=== PATIENT | male | born 1965 | race African-American/Black ===

== ENCOUNTER 2018-05-13 23:58 | Inpatient (IN) | payer BC, OTHER ==
[~2018-05-13] VITALS: Ht 182.9 cm; Wt 80.8 kg
[2018-05-14] VITALS (21 sets, daily range): BP systolic 88–103; BP diastolic 50–69
[2018-05-14] MEDS ORDERED: ACETAMINOP160 MG/5 M GT (00:26)
[2018-05-14] MEDS ORDERED: CATAPRES0.1 MG GT (00:26)
[2018-05-14] MEDS ORDERED: ARTIFICIAL TEAR15 ML BOTH EYES (00:26)
[2018-05-14] MEDS ORDERED: SPIRONOLACTONE25 MG GT (00:26)
[2018-05-14] MEDS ORDERED: CALCIUM CARBON650 M2 GT (00:26)
[2018-05-14] MEDS ORDERED: BISACODYL5 MG RECTAL (00:26)
[2018-05-14] MEDS ORDERED: BACLOFEN10 MG GT (00:26)
[2018-05-14 00:27] LABS: HEMATOCRIT 43.7 % (42.0-52.0); HEMOGLOBIN 14.1 G/DL (14.2-18.0); MEAN CORPUSCULAR VOLUME 86 FL (80-99); PLATELET COUNT 215 K/UL (150-450); RED BLOOD COUNT 5.08 M/UL (4.70-6.10); RED CELL DISTRIBUTION WIDTH 14.2 % (11.6-14.8); WHITE BLOOD COUNT 11.2 K/UL (4.8-10.8)
[2018-05-14] MEDS ORDERED: DUONEB 0.5-3(2.53 ML HHN (00:29)
[2018-05-14] MEDS ORDERED: CRANBERRY400 MG GT (00:29)
[2018-05-14] MEDS ORDERED: VITAMIN D1000 UNI1 GT (00:29)
[2018-05-14] MEDS ORDERED: DOCUSATE SODIU100 MG GT (00:29)
[2018-05-14 00:31] LABS: INR 1.1 (0.9-1.1)
[2018-05-14 00:32] LABS: ANION GAP 14 mmol/L (5-15); BLOOD UREA NITROGEN 34 mg/dL (7-18); CALCIUM 10.7 MG/DL (8.5-10.1); CARBON DIOXIDE 24 MMOL/L (21-32); CHLORIDE 100 MMOL/L (98-107); CREATININE 1.4 MG/DL (0.55-1.30); POTASSIUM 4.4 MMOL/L (3.5-5.1); SODIUM 138 MMOL/L (136-145)
[2018-05-14] MEDS ORDERED: LEVETIRACE100 MG/1 M GT (00:33)
[2018-05-14] MEDS ORDERED: MIRALAX17 G2 GT (00:33)
[2018-05-14] MEDS ORDERED: JANUVIA25 MG GT (00:33)
[2018-05-14] MEDS ORDERED: LACTULOSE20 GM/301 GT (00:33)
[2018-05-14] MEDS ORDERED: FAMOTIDINE20 MG GT (00:33)
[2018-05-14] MEDS ORDERED: LOSARTAN POTASS25 MG GT (00:33)
[2018-05-14] MEDS ORDERED: NOVOLIN R100 UNIT/1 SUBQ (00:33)
[2018-05-14] MEDS ORDERED: MULTIVITAMINS1 EAC8 GT (00:35)
[2018-05-14] MEDS ORDERED: NYSTATIN15 GM TOPIC (00:35)
[2018-05-14] MEDS ORDERED: ROBINUL1 MG GT (00:35)
[2018-05-14] MEDS ORDERED: PERIDEX15 ML MM (00:35)
--- NOTE | 2018-05-14 00:35 | Emergency Room Report ---
History of Present Illness General Chief Complaint: Fever Source: Medical Record Present Illness HPI Patient is sent in from nursing facility with reports of fever and tachycardia Patient presents with tracheostomy Is vent dependent Patient himself has eyes closed and is unresponsive It does limit the history of present illness Unknown regarding vomiting Patient has obvious blood at the meatus Also has a colostomy bag in the right lower abdomen And is still somewhat distended Unknown regarding vomiting Unknown regarding diarrhea Allergies: Coded Allergies: AZTREONAM (Verified Allergy, Unknown, 05/13/18) Patient History Limited by: medical condition Past Medical History: see triage record Pertinent Family History: unable to obtain Reviewed Nursing Documentation: PMH: Agreed; PSxH: Agreed Nursing Documentation-PMH Hx Diabetes: Yes Hx Gastrointestinal Problems: Yes - BPH, GERD, G-tube, Colostomy Hx Seizures: Yes - Convulsion disorder Review of Systems All Other Systems: limited - Other than the ones mentioned in the history of present illness all others are reviewed however they do stay limited due to the patient's mental status Physical Exam Vital Signs Date Time Temp Pulse Resp B/P (MAP) Pulse Ox O2 Delivery O2 Flow Rate FiO2 05/13/18 23:50 103.7 144 13 101/69 93 Mechanical Ventilator 50 103.6 Sp02 EP Interpretation: reviewed, normal General Appearance: moderate distress - Patient appears in moderate distress tachypnic Head: atraumatic Eyes: bilateral eye PERRL, bilateral eye other - Patient has poor dentition has tongue protruding through the oral mucosa, ENT: dry mucus membranes Neck: supple, other - Tracheostomy in place Respiratory: crackles - Diffusely Cardiovascular #1: tachycardia Gastrointestinal: other - Distended abdomen, colostomy bag in the right lower abdomen Genitourinary: other - Gross blood at the meatus Musculoskeletal: other - Patient chronically debilitated, does not move extremities significantly edematous diffusely, Neurologic: responsive - Minimally to physical stimuli Skin: other - Multiple skin breakdowns, edematous Lymphatic: no adenopathy Procedures Critical Care Time Critical Care Time 75 minutes for multiple re-evaluations Critical presentation concerning for life-threatening pathology Not including any procedural time Medical Decision Making Diagnostic Impression: Primary Impression: Severe sepsis ER Course Patient is a fairly complex patient with multiple differential to consideration including but not limited to infectious ,cardiac cardiopulmonary and vascular emergencies Patient had elevated temperature which was addressed Patient had IV bolus of fluids Broad-spectrum antibiotics Sepsis reexamination Time:0400 VS refer to nursing note cvs: RRR respiratory: improved respiration peripheral pulses: 2+radial cap refill:<2 seconds skin exam: warm, dry, not mottled Patient requiring high level of care admission Please refer to the phone log as multiple attempts have been made to make contact with the admitting physician Labs Test 05/14/18 00:05 05/14/18 01:20 05/14/18 01:43 White Blood Count 11.2 K/UL (4.8-10.8) Red Blood Count 5.08 M/UL (4.70-6.10) Hemoglobin 14.1 G/DL (14.2-18.0) Hematocrit 43.7 % (42.0-52.0) Mean Corpuscular Volume 86 FL (80-99) Mean Corpuscular Hemoglobin 27.7 PG (27.0-31.0) Mean Corpuscular Hemoglobin Concent 32.2 G/DL (32.0-36.0) Red Cell Distribution Width 14.2 % (11.6-14.8) Platelet Count 215 K/UL (150-450) Mean Platelet Volume 10.4 FL (6.5-10.1) Neutrophils (%) (Auto) % (45.0-75.0) Lymphocytes (%) (Auto) % (20.0-45.0) Monocytes (%) (Auto) % (1.0-10.0) Eosinophils (%) (Auto) % (0.0-3.0) Basophils (%) (Auto) % (0.0-2.0) Prothrombin Time 11.1 SEC (9.30-11.50) Prothromb Time International Ratio 1.1 (0.9-1.1) Activated Partial Thromboplast Time 26 SEC (23-33) Sodium Level 138 MMOL/L (136-145) Potassium Level 4.4 MMOL/L (3.5-5.1) Chloride Level 100 MMOL/L (98-107) Carbon Dioxide Level 24 MMOL/L (21-32) Anion Gap 14 mmol/L (5-15) Blood Urea Nitrogen 34 mg/dL (7-18) Creatinine 1.4 MG/DL (0.55-1.30) Estimat Glomerular Filtration Rate > 60 mL/min (>60) Glucose Level 232 MG/DL (74-106) Lactic Acid Level 4.00 mmol/L (0.4-2.0) 4.20 mmol/L (0.66-2.22) Calcium Level 10.7 MG/DL (8.5-10.1) Phosphorus Level 2.0 MG/DL (2.5-4.9) Magnesium Level 1.9 MG/DL (1.8-2.4) Total Bilirubin 0.5 MG/DL (0.2-1.0) Aspartate Amino Transf (AST/SGOT) 19 U/L (15-37) Alanine Aminotransferase (ALT/SGPT) 35 U/L (12-78) Alkaline Phosphatase 126 U/L (46-116) Total Creatine Kinase 155 U/L (26-308) Creatine Kinase MB 0.7 NG/ML (0.0-3.6) Creatine Kinase MB Relative Index 0.4 Troponin I 0.000 ng/mL (0.000-0.056) Pro-B-Type Natriuretic Peptide 37 pg/mL (0-125) Total Protein 9.3 G/DL (6.4-8.2) Albumin 4.0 G/DL (3.4-5.0) Globulin 5.3 g/dL Albumin/Globulin Ratio 0.8 (1.0-2.7) Lipase 172 U/L (73-393) Urine Color Red Urine Appearance Cloudy Urine pH 5 (4.5-8.0) Urine Specific [place] 1.015 (1.005-1.035) Urine Protein 4+ (NEGATIVE) Urine Glucose (UA) Negative (NEGATIVE) Urine Ketones 1+ (NEGATIVE) Urine Occult Blood 5+ (NEGATIVE) Urine Nitrite Negative (NEGATIVE) Urine Bilirubin Negative (NEGATIVE) Urine Urobilinogen Normal MG/DL (0.0-1.0) Urine Leukocyte Esterase 2+ (NEGATIVE) Urine RBC Tntc /HPF (0 - 0) Urine WBC 40-60 /HPF (0 - 0) Urine Squamous Epithelial Cells None /LPF (NONE/OCC) Urine Bacteria Few /HPF (NONE) Rhythm Strip Diag. Results EP Interpretation: yes Rate: 110 Rhythm: no PVC's, no ectopy, other - Sinus tach Chest X-Ray Diagnostic Results Chest X-Ray Diagnostic Results : Chest X-Ray Ordered: Yes # of Views/Limited/Complete: 1 View Indication: Chest Pain EP Interpretation: Yes Interpretation: no pneumothorax, other - Bilateral atelectasis, possible infrate, cardiac megaly Impression: Other - Bilateral infiltates Electronically Signed by: Joey Reyes DO CT/MRI/US Diagnostic Results CT/MRI/US Diagnostic Results : Impression CT abdomen pelvisRight lower quadrant peristomal hernia containing fat and bowel loopswithout evidence of associated obstruction. No diverticulitis. Normal appendix. Percutaneous gastrostomycatheter. No radiopaque gallstones. No pancreatitis. Partial staghorn calculus in the left kidney. Additional bilateral nonobstructing renal stones. No hydronephrosis. No ureteral or bladder stones. Bilateral perinephric stranding maybe due to medical renal disease or pyelonephritis. Normal caliber abdominal aorta. Foleyballoon within decompressed bladder with associated wall thickening. Perivesicular stranding noted. Correlate with lab values to exclude cystitis. Bibasilar atelectasis/infiltrates. Debris/aspiration noted in bilateral lower lobe bronchi. Cardiomegaly. Elevated right hemidiaphragm. Last Vital Signs Date Time Temp Pulse Resp B/P (MAP) Pulse Ox O2 Delivery O2 Flow Rate FiO2 05/13/18 23:50 103.7 144 13 101/69 93 Mechanical Ventilator 50 103.6 Status: improved Disposition: ADMITTED INPATIENT Condition: Critical Joey Reyes DO May 14, 2018 00:35
[2018-05-14 00:48] LABS: ALANINE AMINOTRANSFERASE 35 U/L (12-78); ALBUMIN/GLOBULIN RATIO 0.8 (1.0-2.7); ALKALINE PHOSPHATASE 126 U/L (46-116); ASPARTATE AMINO TRANSFERASE 19 U/L (15-37); BILIRUBIN,TOTAL 0.5 MG/DL (0.2-1.0); CKMB 0.7 NG/ML (0.0-3.6); CREATINE KINASE 155 U/L (26-308)
[2018-05-14] MEDS ORDERED: Piperacillin/Tazobactam 3.375 GM in NS 110 ML IVPB ONE (01:15)
[2018-05-14] MEDS ORDERED: Zosyn 3.375gm inj ONE (01:43)
[2018-05-14 01:54] LABS: BILIRUBIN, URINE NEGATIVE (NEGATIVE); COLOR,URINE RED; GLUCOSE, URINE (UA) NEGATIVE (NEGATIVE); KETONES,URINE 1+ (NEGATIVE); LEUKOCYTE ESTERASE ,URINE 2+ (NEGATIVE); NITRITE,URINE NEGATIVE (NEGATIVE); PH,URINE 5 (4.5-8.0); PROTEIN,URINE 4+ (NEGATIVE); UROBILINOGEN,URINE NORMAL MG/DL (0.0-1.0)
[2018-05-14 01:57] LABS: APPEARANCE,URINE CLOUDY
[2018-05-14] MEDS ORDERED: Acetaminophen 650mg/20.3ml ONE (02:01)
[2018-05-14] MEDS ORDERED: levETIRAcetam 1,000mg/NS100ml 100 ML IVPB ONE ×2 (02:30→03:07)
[2018-05-14] MEDS ORDERED: Acetaminophen 650mg/20.3ml NG ONE (03:15)
[2018-05-14] MEDS ORDERED: Lidocaine 1% Plain 30 ml INJ SCH (08:00)
[2018-05-14] MEDS ORDERED: Heparin 2000 units/Ns 1000ml INJ SCH (08:00)
--- NOTE | 2018-05-14 09:44 | Pulmonolgy Critical Care Note ---
Critical Care - Asmt/Plan Problems: (1) Acute on chronic respiratory failure (2) Acute on chronic renal insufficiency (3) Severe sepsis (4) Vegetative state (5) Colostomy in place (6) Diabetes mellitus Respiratory: monitor respiratory rate, adjust FIO2, CXR Cardiac: continue to monitor HR/BP Renal: F/U I&O, keep IV fluid Infectious Disease: check cultures Gastrointestinal: hold feedings Endocrine: monitor blood sugar Hematologic: monitor H/H, transfuse if hgb<8.5 Neurologic: PRN Ativan, keep patient comfortable Affect: PRN ativan Prophylaxis: Protonix Disposition: keep in ICU Discussed with: nurses, consultants, dependency case managerprocessing manager - Objective Last 24 Hour Vital Signs Date Time Temp Pulse Resp B/P (MAP) Pulse Ox O2 Delivery O2 Flow Rate FiO2 05/14/18 09:00 107 18 88/65 (73) 99 05/14/18 08:00 98.3 104 18 91/65 (74) 99 98.3 05/14/18 07:29 103 22 54 05/14/18 07:08 107 18 88/66 (73) 100 05/14/18 06:53 Mechanical Ventilator 05/14/18 06:28 54 05/14/18 06:20 99.7 124 22 93/63 100 Mechanical Ventilator 54 99.7 05/14/18 06:09 Mechanical Ventilator 05/14/18 06:00 99.7 116 18 92/57 (69) 99 99.7 05/14/18 05:50 120 05/14/18 05:28 99.7 124 22 93/63 100 Mechanical Ventilator 54 99.7 05/14/18 05:19 133 22 54 05/14/18 03:40 124 18 96/68 100 Mechanical Ventilator 54 05/14/18 03:19 103.6 05/14/18 02:54 134 18 54 05/14/18 00:58 147 18 54 05/14/18 00:25 103.6 13 101/69 93 Mechanical Ventilator 50 103.6 05/13/18 23:50 103.7 144 13 101/69 93 Mechanical Ventilator 50 103.6 Status: obtunded Condition: critical HEENT: atraumatic Lungs: clear Heart: HR/BP stable Abdomen: soft, active bowel sounds Extremities: no C/C/E, edema Decubiti: location Accucheck: 250 Critical Care - Subjective ROS Limited/Unobtainable: Yes ICU Day: 1 Interval Events: 52 year old male with hx of chronic trach, PEG, colostomy, DM, seizures, [facility] resident brought in to ER with CC of Fever. Pt was hypotensive on admission and is admitted to ICU for further work up. Condition: critical IV Access: PICC FI02: 54 Vent Support Breath Rate: 18 Vent Support Mode: AC Vent Tidal Volume: 600 Sputum Amount: Moderate PEEP: 5.0 PIP: 39 I&O: Intake and Output 05/13/18 05/14/18 19:00 07:00 Intake Total 2050 ml Output Total 603 ml Balance 1447 ml Intake Oral 0 ml Free Water 50 ml IV Total 2000 ml Output Urine Total 603 ml Labs: Laboratory Tests Test 05/14/18 00:05 05/14/18 01:20 05/14/18 01:43 White Blood Count 11.2 K/UL (4.8-10.8) H Red Blood Count 5.08 M/UL (4.70-6.10) Hemoglobin 14.1 G/DL (14.2-18.0) L Hematocrit 43.7 % (42.0-52.0) Mean Corpuscular Volume 86 FL (80-99) Mean Corpuscular Hemoglobin 27.7 PG (27.0-31.0) Mean Corpuscular Hemoglobin Concent 32.2 G/DL (32.0-36.0) Red Cell Distribution Width 14.2 % (11.6-14.8) Platelet Count 215 K/UL (150-450) Mean Platelet Volume 10.4 FL (6.5-10.1) H Neutrophils (%) (Auto) % (45.0-75.0) Lymphocytes (%) (Auto) % (20.0-45.0) Monocytes (%) (Auto) % (1.0-10.0) Eosinophils (%) (Auto) % (0.0-3.0) Basophils (%) (Auto) % (0.0-2.0) Prothrombin Time 11.1 SEC (9.30-11.50) Prothromb Time International Ratio 1.1 (0.9-1.1) Activated Partial Thromboplast Time 26 SEC (23-33) Sodium Level 138 MMOL/L (136-145) Potassium Level 4.4 MMOL/L (3.5-5.1) Chloride Level 100 MMOL/L (98-107) Carbon Dioxide Level 24 MMOL/L (21-32) Anion Gap 14 mmol/L (5-15) Blood Urea Nitrogen 34 mg/dL (7-18) H Creatinine 1.4 MG/DL (0.55-1.30) H Estimat Glomerular Filtration Rate > 60 mL/min (>60) Glucose Level 232 MG/DL (74-106) H Lactic Acid Level 4.00 mmol/L (0.4-2.0) H 4.20 mmol/L (0.66-2.22) H Calcium Level 10.7 MG/DL (8.5-10.1) H Phosphorus Level 2.0 MG/DL (2.5-4.9) L Magnesium Level 1.9 MG/DL (1.8-2.4) Total Bilirubin 0.5 MG/DL (0.2-1.0) Aspartate Amino Transf (AST/SGOT) 19 U/L (15-37) Alanine Aminotransferase (ALT/SGPT) 35 U/L (12-78) Alkaline Phosphatase 126 U/L (46-116) H Total Creatine Kinase 155 U/L (26-308) Creatine Kinase MB 0.7 NG/ML (0.0-3.6) Creatine Kinase MB Relative Index 0.4 Troponin I 0.000 ng/mL (0.000-0.056) Pro-B-Type Natriuretic Peptide 37 pg/mL (0-125) Total Protein 9.3 G/DL (6.4-8.2) H Albumin 4.0 G/DL (3.4-5.0) Globulin 5.3 g/dL Albumin/Globulin Ratio 0.8 (1.0-2.7) L Lipase 172 U/L (73-393) Urine Color Red Urine Appearance Cloudy Urine pH 5 (4.5-8.0) Urine Specific [place] 1.015 (1.005-1.035) Urine Protein 4+ (NEGATIVE) H Urine Glucose (UA) Negative (NEGATIVE) Urine Ketones 1+ (NEGATIVE) H Urine Occult Blood 5+ (NEGATIVE) H Urine Nitrite Negative (NEGATIVE) Urine Bilirubin Negative (NEGATIVE) Urine Urobilinogen Normal MG/DL (0.0-1.0) Urine Leukocyte Esterase 2+ (NEGATIVE) H Urine RBC Tntc /HPF (0 - 0) H Urine WBC 40-60 /HPF (0 - 0) H Urine Squamous Epithelial Cells None /LPF (NONE/OCC) Urine Bacteria Few /HPF (NONE) Nico Goetz MD May 14, 2018 09:44
[2018-05-14] MEDS ORDERED: Morphine Sulfate 4mg/ml Inj (IV USE ONLY) IVP PRN (10:00)
[2018-05-14] MEDS ORDERED: Miralax 17gm pkt ORAL PRN (10:00)
[2018-05-14] MEDS ORDERED: LORazepam Inj 2mg/ml 1ml IV PRN (10:00)
[2018-05-14] MEDS ORDERED: Albuterol/Ipratropium 3ml neb HHN PRN (10:00)
[2018-05-14] MEDS ORDERED: Sodium Phosphate 10 MM in NS 275 ML IVPB SCH (10:00)
--- NOTE | 2018-05-14 10:28 | Diagnostic Imaging Report ---
Indication: Abdominal pain for 2 days Technique: Spiral acquisitions obtained through the abdomen and pelvis. No oral contrast utilized, per emergency room physician request No IV contrast utilized, per referring physician request.. Multiplanar reconstructions were generated. Total dose length product 1148.76 mGycm. CTDIvol(s) 18.6 mGy. Dose reduction achieved using automated exposure control Comparison: None Findings: There is a gastrostomy tube in good position. The appendix is normal. There is a colostomy at the level of the hepatic flexure of the colon. There is also a mucous fistula beginning at the same level. A loop of small bowel is herniated into the colostomy defect. This does not appear to be obstructive or strangulated. There is a ball of inspissated contrast within the distal sigmoid colon. No evidence of diverticulosis or diverticulitis. The distal esophagus is unremarkable. The duodenum is unremarkable. Multiple intrarenal calculi are seen within the right kidney, measuring up to 4 mm diameter. There is very mild right hydronephrosis, but no definite obstructing stone and no evidence of hydroureter. There is a staghorn calculus within the left renal pelvis which measures 2 x 1 x 0.8 cm. There are also smaller intrarenal calculi on the left. No hydronephrosis is demonstrated. The left kidney is slightly atrophic. Lack of IV contrast limits assessment of the renal parenchyma. There is a small cyst within the left kidney. There is nonspecific bilateral perinephric fat stranding. Lack of IV contrast limits assessment of the other solid organs. The liver, gallbladder, bile ducts, pancreas, adrenals are all unremarkable. No retroperitoneal or mesenteric mass or adenopathy. There is a Newberry catheter in place. The bladder is nondistended. It contains a small amount of air consistent with the Newberry catheterization. There is some stranding of the perivesical fat and slight wall thickening of the bladder The lung bases demonstrate considerable atelectasis and consolidation bilaterally. The bones are unremarkable except for mild degenerative spondylosis changes. Impression: Right lower quadrant double barrel colostomy, as described. Small peristomal hernia contains bowel loops without evidence of obstruction or strangulation Left renal staghorn calculus. Bilateral intrarenal calyceal calculi Borderline hydronephrosis on the right without evidence of downstream obstructive lesion. May indicate mild ureteral pelvic junction obstruction Somewhat atrophic left kidney Inspissated contrast ball within the distal sigmoid colon Gastrostomy in good position Nonspecific bilateral perinephric fat stranding, could indicate pyelonephritis or could be chronic Newberry catheter in place. Apparent bladder wall thickening, possibly an artifact of under distention but cystitis is not excludable, particularly in view of mild perivesical fat stranding Bilateral pulmonary parenchymal atelectasis and consolidation Other findings as noted, including mild degenerative spondylosis, left renal cyst. This agrees with the preliminary interpretation provided overnight by [facility]eradiology service. The CT scanner at [facility] is accredited by the [employer] and the scans are performed using protocols designed to limit radiation exposure to as low as reasonably achievable to attain images of sufficient resolution adequate for diagnostic evaluation.
--- NOTE | 2018-05-14 10:30 | Consultation ---
DATE OF CONSULTATION: 05/14/2018 CONSULTING PHYSICIAN: Mir Gann M.D. REFERRING PHYSICIAN: Jimmy Fleming M.D. REASON FOR CONSULTATION: 1. Acute kidney injury. 2. Hypotension. HISTORY OF PRESENT ILLNESS: The patient is a 52-year-old gentleman, sent in from the [facility] facility overnight for further evaluation and care of sepsis with fever and tachycardia. The patient has a long time tracheostomy and is ventilatory dependent. The patient found to be hypotensive, possible pneumonia, was aggressively hydrated, and noted creatinine of 1.4. He has a stoma colostomy noted with a G-tube. PAST MEDICAL HISTORY: 1. Chronic respiratory failure, ventilatory dependent. 2. Constipation. 3. Hypertension. 4. Diabetes mellitus. 5. Seizure disorder. FAMILY HISTORY: Positive for hypertension. PAST SURGICAL HISTORY: 1. Colostomy with noted stoma. 2. G-tube. 3. Tracheostomy. LABORATORY DATA: Laboratories dated May 14, 2018, sodium 138, potassium 4.4, creatinine 1.4, BUN 34, calcium 10.7, phosphorus of 2, and magnesium 1.9. White cell count 11.2, hemoglobin 14.1, and platelet count 215. PHYSICAL EXAMINATION: VITAL SIGNS: Blood pressure 88/66, respiratory rate 18, pulse 107, and temperature 99.7. GENERAL: The patient is awake, in no overt distress. HEENT: Extraocular muscles intact. No lymphadenopathy noted. Tracheostomy noted. CARDIOVASCULAR: S1 and S2. Tachycardic. No rubs or gallops. PULMONARY: Mild diffuse expiratory rhonchi with basilar rales. ABDOMEN: Obese and nondistended. The G-tube and stoma noted. EXTREMITIES: No edema. Fair pedal pulses. ASSESSMENT AND PLAN: 1. Acute kidney injury at this time secondary to ischemic ATN from hypotension and underlying sepsis. Continue to maintain hemodynamic stability with a MAP greater than 65 mmHg. IV fluid bolus p.r.n. along with IV pressors as required. Avoid any nephrotoxins. CT of the abdomen and pelvis do not show any acute renal abnormalities. 2. Septic shock. At this time, IV antibiotics per Infectious Disease. Continue IV fluids and p.r.n. IV pressors. 3. Chronic respiratory failure. The patient has tracheostomy, on mechanical ventilation. Defer management to Dr. Goetz. 4. Hypophosphatemia. We will replace. 5. Hypercalcemia. Recheck laboratories in the a.m. Possible component of intravascular volume depletion. Let me take this opportunity to thank Dr. Fleming. Mir Gann MD DR: PEYMAN JOB#: [id number] CC: LILA
--- NOTE | 2018-05-14 12:10 | Diagnostic Imaging Report ---
Indication: Shortness of breath Technique: One view of the chest Comparison: none Findings: There is thickening of the minor fissure on the right versus perihilar atelectasis. Rounded opacity projecting over the right upper lobe is presumably external to the patient. There is mild interstitial congestion. There is suggestion of small bilateral pleural effusions. The heart is mildly enlarged. There is a tracheostomy Impression: Cardiomegaly Mild interstitial congestion Suspect small bilateral pleural effusions Other findings as noted
--- NOTE | 2018-05-14 13:50 | Diagnostic Imaging Report ---
Indications: Needs long-term IV access Technique: Procedure performed at bedside. Procedural timeout performed. Ultrasound confirms patent compressible left brachial vein. Total sterile technique, including sterile probe cover and sterile gel, sterile gloves, hand hygiene, hat, mask,, sterile gown, large sterile drape, and preparation with 2% chlorhexidine utilized. Local anesthesia with 1% lidocaine. Under real-time ultrasound guidance, puncture left brachial vein using 21-gauge needle, passage 0.018 guidewire, exchange for 5 [place] peel-away sheath. 5 [place] Bard dual-lumen power PICC cut to 41 cm. It was inserted through the peel-away sheath. Peel-away sheath and guidewire removed. Catheter fixed to the skin. Both catheter ports aspirated and flushed. Patient tolerated procedure well, without immediate complication. Followup chest x-ray obtained, documents catheter tip position at the high right atrium Impression: Successful bedside placement of right arm PICC under sonographic guidance, as described above.
[2018-05-14] MEDS: levETIRAcetam 500mg/5ml Liquid GT SCH ×3 (14:10→22:17)
[2018-05-14] MEDS: Vancomycin 1500mg IVPB SCH (14:10)
[2018-05-14] MEDS: Dyna-Hex 2% Top Sol 2oz TOPIC SCH (20:27)
[2018-05-14] MEDS: Heparin 5000 units/ml inj SUBQ SCH (20:53)
[2018-05-15] VITALS (24 sets, daily range): BP systolic 92–112; BP diastolic 50–74
[2018-05-15] MEDS: Vancomycin 1500mg IVPB SCH ×2 (00:20→12:45)
--- NOTE | 2018-05-15 05:00 | History and Physical Report ---
DATE OF ADMISSION: 05/14/2018 NOTE: POOR AUDIO INTERNAL MEDICINE HISTORY AND PHYSICAL Covering for Dr. Bhat. REASON FOR ADMISSION: Sepsis. HISTORY OF PRESENT ILLNESS: The patient is a pleasant 52-year-old male, sent from [facility] with history of constipation, hypertension, diabetes mellitus, seizure disorder, chronic respiratory failure, on a vent. has been admitted here, history of vegetative state, presents with fevers and chills, noted to have an elevated temperature. Blood cultures and urine cultures were tested. In addition, CAT scan of the abdomen and pelvis completed showed atrophic left kidney hydronephrosis, calculi right lower quadrant ____ colostomy as described, small peristomal hernia. Gastrostomy tube in good position. Newberry catheter in place. Bilateral pulmonary parenchyma, atelectasis, consolidation noted and ____ Dr. Bhat. PAST MEDICAL HISTORY: As noted diabetes mellitus and seizure disorder. PAST SURGICAL HISTORY: colostomy, NG-tube with tracheostomy. FAMILY HISTORY: Positive for hypertension. PHYSICAL EXAMINATION: VITAL SIGNS: Reviewed. GENERAL: No acute distress. PULMONARY: Decreased breath sounds. Tracheostomy site is intact. CARDIOVASCULAR: Regular rate. No S3 or S4. ABDOMEN: Soft, nontender, and nondistended. Positive colostomy. EXTREMITIES: No cyanosis, swelling, or edema. LABORATORY DATA: WBC 11.1, hemoglobin 13.1, and platelet count ,000. INR of 1.1. Chemistry reviewed. BUN of 33 and creatinine 1.4. ASSESSMENT AND RECOMMENDATIONS: 1. Sepsis with elevated temperature of 103 degrees Fahrenheit. Lactic acid pending, was elevated upon admission, on antibiotics, has received a dose of Zosyn and currently is on vancomycin q.12 h. Obtain Infectious Disease consult. 2. Acute kidney injury. Currently IV fluids, IV bolus given to see if the patient responds along with IV pressor as needed. Closely monitor with Nephrology team. 3. Septic shock, use antibiotic per ID services. 4. Respiratory failure, status post tracheostomy, on mechanical ventilation per Dr. Goetz. 5. Hypercalcemia. Repeat PTH and calcium level in the morning. I appreciate the consultation. Closely monitor with Dr. Bhat. Jimmy Fleming M.D. DR: LEORA JOB#: [id number] CC:
[2018-05-15] MEDS: levETIRAcetam 500mg/5ml Liquid GT SCH ×3 (05:52→22:08)
[2018-05-15 06:31] LABS: BASOPHILS % (AUTO) 0.5 % (0.0-2.0); EOSINOPHILS % (AUTO) 2.6 % (0.0-3.0); HEMATOCRIT 33.1 % (42.0-52.0); HEMOGLOBIN 10.4 G/DL (14.2-18.0); LYMPHOCYTES % (AUTO) 10.5 % (20.0-45.0); MEAN CORPUSCULAR VOLUME 87 FL (80-99); MONOCYTES % (AUTO) 6.5 % (1.0-10.0); PLATELET COUNT 173 K/UL (150-450); RED BLOOD COUNT 3.83 M/UL (4.70-6.10); RED CELL DISTRIBUTION WIDTH 14.6 % (11.6-14.8)
[2018-05-15 06:47] LABS: ANION GAP 13 mmol/L (5-15); BLOOD UREA NITROGEN 20 mg/dL (7-18); CALCIUM 9.4 MG/DL (8.5-10.1); CARBON DIOXIDE 21 MMOL/L (21-32); CHLORIDE 107 MMOL/L (98-107); CREATININE 1.1 MG/DL (0.55-1.30); POTASSIUM 3.1 MMOL/L (3.5-5.1); SODIUM 141 MMOL/L (136-145)
[2018-05-15 07:11] LABS: ANION GAP 13 mmol/L (5-15); BLOOD UREA NITROGEN 20 mg/dL (7-18); CALCIUM 9.4 MG/DL (8.5-10.1); CARBON DIOXIDE 21 MMOL/L (21-32); CHLORIDE 107 MMOL/L (98-107); CREATININE 1.1 MG/DL (0.55-1.30); PHOSPHORUS 1.9 MG/DL (2.5-4.9); POTASSIUM 3.2 MMOL/L (3.5-5.1); SODIUM 141 MMOL/L (136-145)
--- NOTE | 2018-05-15 08:11 | Nephrology Progress Note ---
Assessment/Plan Assessment/Plan 1. DIVYA- due to multifactorial ATN (sepsis/hypotension) - resolved - Decrease IVFs 2. Septic Shock- IVF's and Abx 3. Chronic Resp FL- trached on vent 4. Hypok/Phos- being replaced today Subjective Date patient seen: May 15, 2018 Time patient seen: 08:09 ROS Limited/Unobtainable: Yes Allergies: Coded Allergies: AZTREONAM (Verified Allergy, Unknown, 05/13/18) Subjective Patient remains trached on vent nonverbal Objective Last 24 Hour Vital Signs Date Time Temp Pulse Resp B/P (MAP) Pulse Ox O2 Delivery O2 Flow Rate FiO2 05/15/18 07:29 91 16 30 05/15/18 07:00 95 16 97/63 (74) 100 05/15/18 06:00 94 16 103/68 (80) 100 05/15/18 05:29 96 16 30 05/15/18 05:00 102 16 92/56 (68) 98 05/15/18 04:00 35 05/15/18 04:00 Mechanical Ventilator 05/15/18 04:00 100 05/15/18 04:00 98.4 99 16 97/59 (72) 98 98.4 05/15/18 03:21 97 16 30 05/15/18 03:00 102 16 96/64 (75) 98 05/15/18 02:00 96 17 99/63 (75) 98 05/15/18 01:09 98 16 30 05/15/18 01:00 103 16 103/52 (69) 97 05/15/18 00:00 98.6 102 16 109/50 (69) 98 98.6 05/15/18 00:00 35 05/15/18 00:00 102 05/15/18 00:00 Mechanical Ventilator 05/14/18 23:00 100 16 103/50 (67) 100 05/14/18 22:38 99 16 30 05/14/18 22:00 100 16 94/50 (65) 100 05/14/18 21:17 96 16 30 05/14/18 21:00 97 16 94/55 (68) 99 05/14/18 20:00 99 05/14/18 20:00 98.1 98 16 90/60 (70) 100 98.1 05/14/18 20:00 35 05/14/18 20:00 Mechanical Ventilator 05/14/18 19:15 101 16 30 05/14/18 19:00 101 17 90/55 (67) 99 05/14/18 18:00 99 17 95/58 (70) 98 05/14/18 17:00 100 17 94/64 (74) 98 05/14/18 16:56 98 16 35 05/14/18 16:00 Mechanical Ventilator 05/14/18 16:00 98.9 98 16 94/62 (73) 99 98.9 05/14/18 16:00 97 05/14/18 16:00 54 05/14/18 15:25 96 16 35 05/14/18 15:00 99 17 97/52 (67) 99 05/14/18 14:00 100 17 91/62 (72) 99 05/14/18 13:29 100 16 35 05/14/18 13:00 100 17 99/59 (72) 100 05/14/18 12:00 100 05/14/18 12:00 54 05/14/18 12:00 98.9 99 17 99/59 (72) 99 98.9 05/14/18 12:00 Mechanical Ventilator 05/14/18 11:17 100 19 35 05/14/18 11:00 100 16 92/66 (75) 99 05/14/18 10:05 35 05/14/18 10:00 102 17 96/60 (72) 99 05/14/18 09:27 103 18 54 05/14/18 09:00 107 18 88/65 (73) 99 Intake and Output 05/14/18 05/15/18 19:00 07:00 Intake Total 1125 ml 2020 ml Output Total 840 ml 1085 ml Balance 285 ml 935 ml IV Total 1125 ml 1750 ml Tube Feeding 270 ml Output Urine Total 840 ml 735 ml Chest Tube Drainage Total 350 ml Laboratory Tests 05/14/18 10:20: Lactic Acid Level 3.50H 05/14/18 12:20: Lactic Acid Level 3.00H 05/14/18 17:30: Lactic Acid Level 1.40 05/15/18 05:00: White Blood Count 12.0H, Red Blood Count 3.83L, Hemoglobin 10.4L, Hematocrit 33.1L, Mean Corpuscular Volume 87, Mean Corpuscular Hemoglobin 27.2, Mean Corpuscular Hemoglobin Concent 31.4L, Red Cell Distribution Width 14.6, Platelet Count 173, Mean Platelet Volume 8.8, Neutrophils (%) (Auto) 80.0H, Lymphocytes (%) (Auto) 10.5L, Monocytes (%) (Auto) 6.5, Eosinophils (%) (Auto) 2.6, Basophils (%) (Auto) 0.5, Sodium Level 141, Potassium Level 3.2L, Chloride Level 107, Carbon Dioxide Level 21, Anion Gap 13, Blood Urea Nitrogen 20H, Creatinine 1.1, Estimat Glomerular Filtration Rate > 60, Glucose Level 195H, Calcium Level 9.4, Phosphorus Level 1.9L, Albumin 3.0L Height (Feet): 6 Weight (Pounds): 218 General Appearance: WD/WN, no apparent distress EENT: PERRL/EOMI Neck: non-tender, normal alignment Cardiovascular: normal peripheral pulses, normal rate Respiratory/Chest: rhonchi - bilaterally Abdomen: non tender, soft Edema: no edema noted Arm (L), no edema noted Arm (R), no edema noted Leg (L), no edema noted Leg (R), no edema noted Pedal (L), no edema noted Pedal (R), no edema noted Generalized Mir Gann M.D. May 15, 2018 08:11
[2018-05-15] MEDS ORDERED: Pantoprazole Inj IV SCH (09:00)
[2018-05-15] MEDS ORDERED: Potassium Phosphate 20 MM in NS 275 ML IV ONE (09:30)
--- NOTE | 2018-05-15 09:37 | Pulmonolgy Critical Care Note ---
Critical Care - Asmt/Plan Problems: (1) Acute on chronic respiratory failure (2) Acute on chronic renal insufficiency (3) Severe sepsis (4) Vegetative state (5) Colostomy in place (6) Diabetes mellitus Respiratory: monitor respiratory rate, adjust FIO2, CXR Cardiac: continue to monitor HR/BP Renal: F/U I&O, decrease IV fluid Infectious Disease: check cultures, continue antibiotics Gastrointestinal: continue feedings/current rate Endocrine: monitor blood sugar, check HgA1C Neurologic: PRN Ativan Prophylaxis: Protonix, Heparin Disposition: keep in ICU Notes Reviewed: fish egg packer, renal Discussed with: nurses, consultants, caseworker intakecustomer consulting manager - Objective Last 24 Hour Vital Signs Date Time Temp Pulse Resp B/P (MAP) Pulse Ox O2 Delivery O2 Flow Rate FiO2 05/15/18 08:39 96 16 30 05/15/18 07:29 91 16 30 05/15/18 07:00 95 16 97/63 (74) 100 05/15/18 06:00 94 16 103/68 (80) 100 05/15/18 05:29 96 16 30 05/15/18 05:00 102 16 92/56 (68) 98 05/15/18 04:00 35 05/15/18 04:00 Mechanical Ventilator 05/15/18 04:00 100 05/15/18 04:00 98.4 99 16 97/59 (72) 98 98.4 05/15/18 03:21 97 16 30 05/15/18 03:00 102 16 96/64 (75) 98 05/15/18 02:00 96 17 99/63 (75) 98 05/15/18 01:09 98 16 30 05/15/18 01:00 103 16 103/52 (69) 97 05/15/18 00:00 98.6 102 16 109/50 (69) 98 98.6 05/15/18 00:00 35 05/15/18 00:00 102 05/15/18 00:00 Mechanical Ventilator 05/14/18 23:00 100 16 103/50 (67) 100 05/14/18 22:38 99 16 30 05/14/18 22:00 100 16 94/50 (65) 100 05/14/18 21:17 96 16 30 05/14/18 21:00 97 16 94/55 (68) 99 05/14/18 20:00 99 05/14/18 20:00 98.1 98 16 90/60 (70) 100 98.1 05/14/18 20:00 35 05/14/18 20:00 Mechanical Ventilator 05/14/18 19:15 101 16 30 05/14/18 19:00 101 17 90/55 (67) 99 05/14/18 18:00 99 17 95/58 (70) 98 05/14/18 17:00 100 17 94/64 (74) 98 05/14/18 16:56 98 16 35 05/14/18 16:00 Mechanical Ventilator 05/14/18 16:00 98.9 98 16 94/62 (73) 99 98.9 05/14/18 16:00 97 05/14/18 16:00 54 05/14/18 15:25 96 16 35 05/14/18 15:00 99 17 97/52 (67) 99 05/14/18 14:00 100 17 91/62 (72) 99 05/14/18 13:29 100 16 35 05/14/18 13:00 100 17 99/59 (72) 100 05/14/18 12:00 100 05/14/18 12:00 54 05/14/18 12:00 98.9 99 17 99/59 (72) 99 98.9 05/14/18 12:00 Mechanical Ventilator 05/14/18 11:17 100 19 35 05/14/18 11:00 100 16 92/66 (75) 99 05/14/18 10:05 35 05/14/18 10:00 102 17 96/60 (72) 99 Condition: critical HEENT: atraumatic, normocephalic Lungs: rales, rhonchi Heart: HR/BP stable Abdomen: soft, feeding tube Extremities: edema Decubiti: location Micro: Microbiology Date/Time Source Procedure Growth Status 05/14/18 00:05 Blood Blood Culture - Preliminary NO GROWTH AFTER 24 HOURS Resulted 05/14/18 00:00 Blood Blood Culture - Preliminary NO GROWTH AFTER 24 HOURS Resulted 05/14/18 01:43 Urine,Clean Catch Urine Culture - Preliminary Gram Negative Bacillus 1 Resulted Accucheck: 213 Critical Care - Subjective ROS Limited/Unobtainable: Yes Condition: critical EKG Rhythm: Sinus Rhythm FI02: 30 Vent Support Breath Rate: 16 Vent Support Mode: AC Vent Tidal Volume: 600 Sputum Amount: Moderate PEEP: 5.0 PIP: 32 Tube Feeding Amount: 30 I&O: Intake and Output 05/14/18 05/15/18 19:00 07:00 Intake Total 1125 ml 2020 ml Output Total 840 ml 1085 ml Balance 285 ml 935 ml IV Total 1125 ml 1750 ml Tube Feeding 270 ml Output Urine Total 840 ml 735 ml Chest Tube Drainage Total 350 ml CXR: no new changes Labs: Laboratory Tests Test 05/14/18 10:20 05/14/18 12:20 05/14/18 17:30 05/15/18 05:00 Lactic Acid Level 3.50 mmol/L (0.4-2.0) H 3.00 mmol/L (0.66-2.22) H 1.40 mmol/L (0.4-2.0) White Blood Count 12.0 K/UL (4.8-10.8) H Red Blood Count 3.83 M/UL (4.70-6.10) L Hemoglobin 10.4 G/DL (14.2-18.0) L Hematocrit 33.1 % (42.0-52.0) L Mean Corpuscular Volume 87 FL (80-99) Mean Corpuscular Hemoglobin 27.2 PG (27.0-31.0) Mean Corpuscular Hemoglobin Concent 31.4 G/DL (32.0-36.0) L Red Cell Distribution Width 14.6 % (11.6-14.8) Platelet Count 173 K/UL (150-450) Mean Platelet Volume 8.8 FL (6.5-10.1) Neutrophils (%) (Auto) 80.0 % (45.0-75.0) H Lymphocytes (%) (Auto) 10.5 % (20.0-45.0) L Monocytes (%) (Auto) 6.5 % (1.0-10.0) Eosinophils (%) (Auto) 2.6 % (0.0-3.0) Basophils (%) (Auto) 0.5 % (0.0-2.0) Sodium Level 141 MMOL/L (136-145) Potassium Level 3.2 MMOL/L (3.5-5.1) L Chloride Level 107 MMOL/L (98-107) Carbon Dioxide Level 21 MMOL/L (21-32) Anion Gap 13 mmol/L (5-15) Blood Urea Nitrogen 20 mg/dL (7-18) H Creatinine 1.1 MG/DL (0.55-1.30) Estimat Glomerular Filtration Rate > 60 mL/min (>60) Glucose Level 195 MG/DL (74-106) H Calcium Level 9.4 MG/DL (8.5-10.1) Phosphorus Level 1.9 MG/DL (2.5-4.9) L Albumin 3.0 G/DL (3.4-5.0) L Nico Goetz MD May 15, 2018 09:37
[2018-05-15] MEDS: Heparin 5000 units/ml inj SUBQ SCH ×2 (10:00→21:06)
[2018-05-15 10:46] LABS: FERRITIN 1104 NG/ML (8-388)
[2018-05-15] MEDS ORDERED: Potassium Chloride 40 MEQ in Sodium Chloride 500ML 550 ML IVPB ONE (11:00)
[2018-05-15 11:07] LABS: % IRON SATURATION 7 % (15-50); IRON 19 ug/dL (50-175); TOTAL IRON BINDING CAPACITY 256 ug/dL (250-450)
[2018-05-15] MEDS: Zosyn 3.375gm q8h **Extended infusion IVPB SCH ×4 (12:45→22:09)
[2018-05-15] MEDS ORDERED: Sodium Phosphate 30 MM in NS 275 ML IV SCH (12:45)
[2018-05-15] MEDS: NovoLOG Insulin Flexpen SUBQ SCH ×3 (13:25→21:06)
--- NOTE | 2018-05-15 13:58 | GI Initial Consult Note ---
History of Present Illness General Date patient seen: May 15, 2018 Time patient seen: 14:26 Reason for Hospitalization: Fever Referring physician: EDGAR CARTY Reason for Consultation: PROLAPSE STOMA Present Illness HPI Patient is sent in from nursing facility with reports of fever and tachycardia Patient presents with tracheostomy Is vent dependent Patient himself has eyes closed and is unresponsive It does limit the history of present illness Unknown regarding vomiting Patient has obvious blood at the meatus Also has a colostomy bag in the right lower abdomen And is still somewhat distended Unknown regarding vomiting Unknown regarding diarrhea GI consulted for prolapse stoma at colostomy. Area assessed; pink, moist, no obstruction noted, no inflammation or erythema. GT site c/d/i. ROS limited, intubated. No active s/sx of N/V/D. Presents today with iron deficiency anemia , elevated alkaline phosphatase, renal insufficiency, and hypoalbuminemia. Unknown history of endoscopy. Home Meds Reported Medications Glycopyrrolate (ROBINUL) 1 Mg Tablet, 2 MG GT BID, TAB 05/14/18 Chlorhexidine Gluconate (Peridex) 15 Ml Mouthwash, 15 ML MM Q12HR, ML 05/14/18 Nystatin* (NYSTATIN*) 15 Gm Cream..g., 1 APPLIC TOPIC THREE TIMES A DAY, GM 05/14/18 Multivitamin With Minerals (MULTIVITAMINS WITH MINERALS*) 1 Each Tablet, 1 TAB GT DAILY, TAB 05/14/18 Polyethylene Glycol 3350* (MIRALAX*) 17 Gm Powd.pack, 17 GM GT DAILY, PACKET 05/14/18 Losartan Potassium* (LOSARTAN POTASSIUM*) 25 Mg Tablet, 25 MG GT DAILY, TAB 05/14/18 Levetiracetam* (LEVETIRACETAM*) 100 Mg/1 Ml Solution, 1000 MG GT TID 05/14/18 Lactulose (LACTULOSE*) 20 Gm/30 Ml Solution, 30 ML GT, ML 0 Refills 05/14/18 Sitagliptin* (JANUVIA*) 25 Mg Tablet, 50 MG GT DAILY, TAB 05/14/18 Insulin Regular, Human* (NOVOLIN R*) 100 Unit/1 Ml Vial, 0 SUBQ .SLIDING SCALE, UNITS 05/14/18 Famotidine (FAMOTIDINE) 20 Mg Tablet, 20 MG GT DAILY, #30 TAB 0 Refills 05/14/18 Ipratropium/Albuterol Sulfate (DuoNeb 0.5-3(2.5)mg/3ml) 3 Ml Ampul.neb, 3 ML HHN Q3HR, EA 05/14/18 Docusate Sodium* (DOCUSATE SODIUM*) 100 Mg Capsule, 100 MG GT TWICE A DAY, CAP 05/14/18 Cholecalciferol (Vitamin D3)* (VITAMIN D*) 1,000 Unit Tablet, 5000 UNIT GT ONCE A WEEK, #30 TAB 05/14/18 Cranberry (CRANBERRY) 400 Mg Capsule, 400 MG GT DAILY, CAP 05/14/18 Clonidine Hcl* (CATAPRES*) 0.1 Mg Tablet, 0.1 MG GT EVERY 6 HOURS, TAB 05/14/18 Calcium Carbonate (CALCIUM CARBONATE) 650 Mg Tablet, 1000 MG GT BID, TAB 05/14/18 Bisacodyl* (DULCOLAX*) 5 Mg Tablet.dr, 10 MG RECTAL DAILY, #10 TAB 0 Refills 05/14/18 Baclofen* (BACLOFEN*) 10 Mg Tablet, 10 MG GT THREE TIMES A DAY, TAB 05/14/18 Dextran 70/Hypromellose (ARTIFICIAL TEARS EYE DROPS*) 15 Ml Drops, 1 DROP BOTH EYES Q4HR, #15 ML 0 Refills 05/14/18 Spironolactone* (ALDACTONE*) 25 Mg Tablet, 25 MG GT DAILY, TAB 05/14/18 Acetaminophen 160MG/5ML* (ACETAMINOPHEN*) 160 Mg/5 Ml Elixir, 20.3 ML GT Q4HR PRN for Fever/Headache/Mild Pain, ML 0 Refills 05/14/18 Med list reviewed/reconciled: Yes Allergies: Coded Allergies: AZTREONAM (Verified Allergy, Unknown, 05/13/18) Patient History Limited by: medical condition History Provided By: Medical Record PMH Narrative Constipation, hypertension, diabetes mellitus, seizure disorder, chronic respiratory failure, on a vent. vegetative state. Hx Diabetes: Yes Hx Gastrointestinal Problems: Yes - BPH, GERD, G-tube, Colostomy Hx Seizures: Yes - Convulsion disorder Review of Systems All Other Systems: limited Physical Exam Vital Signs Date Time Temp Pulse Resp B/P (MAP) Pulse Ox O2 Delivery O2 Flow Rate FiO2 05/13/18 23:50 103.7 144 13 101/69 93 Mechanical Ventilator 50 103.6 Sp02 EP Interpretation: reviewed, normal Labs Laboratory Tests Test 05/14/18 17:30 05/15/18 05:00 05/15/18 10:30 Lactic Acid Level 1.40 mmol/L (0.4-2.0) White Blood Count 12.0 K/UL (4.8-10.8) H Red Blood Count 3.83 M/UL (4.70-6.10) L Hemoglobin 10.4 G/DL (14.2-18.0) L Hematocrit 33.1 % (42.0-52.0) L Mean Corpuscular Volume 87 FL (80-99) Mean Corpuscular Hemoglobin 27.2 PG (27.0-31.0) Mean Corpuscular Hemoglobin Concent 31.4 G/DL (32.0-36.0) L Red Cell Distribution Width 14.6 % (11.6-14.8) Platelet Count 173 K/UL (150-450) Mean Platelet Volume 8.8 FL (6.5-10.1) Neutrophils (%) (Auto) 80.0 % (45.0-75.0) H Lymphocytes (%) (Auto) 10.5 % (20.0-45.0) L Monocytes (%) (Auto) 6.5 % (1.0-10.0) Eosinophils (%) (Auto) 2.6 % (0.0-3.0) Basophils (%) (Auto) 0.5 % (0.0-2.0) Differential Total Cells Counted 100 Neutrophils % (Manual) 80 % (45-75) H Lymphocytes % (Manual) 10 % (20-45) L Monocytes % (Manual) 7 % (1-10) Eosinophils % (Manual) 3 % (0-3) Basophils % (Manual) 0 % (0-2) Band Neutrophils 0 % (0-8) Platelet Estimate Adequate Platelet Morphology Normal Microcytosis 1+ Tear Drop Cells 1+ Reticulocyte Count 2.3 % (0.0-2.0) H Sodium Level 141 MMOL/L (136-145) Potassium Level 3.2 MMOL/L (3.5-5.1) L Chloride Level 107 MMOL/L (98-107) Carbon Dioxide Level 21 MMOL/L (21-32) Anion Gap 13 mmol/L (5-15) Blood Urea Nitrogen 20 mg/dL (7-18) H Creatinine 1.1 MG/DL (0.55-1.30) Estimat Glomerular Filtration Rate > 60 mL/min (>60) Glucose Level 195 MG/DL (74-106) H Calcium Level 9.4 MG/DL (8.5-10.1) Phosphorus Level 1.9 MG/DL (2.5-4.9) L Iron Level 19 ug/dL (50-175) L Total Iron Binding Capacity 256 ug/dL (250-450) Percent Iron Saturation 7 % (15-50) L Unsaturated Iron Binding 237 ug/dL (112-346) Ferritin 1104 NG/ML (8-388) H Albumin 3.0 G/DL (3.4-5.0) L Folate 42.2 NG/ML (8.6-58.9) Thyroid Stimulating Hormone (TSH) 1.629 uiU/mL (0.358-3.740) Hepatitis A IgM Antibody Pending Hepatitis B Surface Antigen Pending Hepatitis B Core IgM Antibody Pending Hepatitis C Antibody Pending General Appearance: no apparent distress Head: normocephalic EENT: PERRL/EOMI, normal ENT inspection, other - protuding tongue Neck: supple Respiratory: normal breath sounds, no respiratory distress, other - intubated Cardiovascular: normal rate Gastrointestinal: normal inspection, non tender, soft, normal bowel sounds, non -distended, gt - c/d/i, other - prolapse stoma Rectal: deferred Genitourinary: deferred Musculoskeletal: normal inspection, back normal Neurologic: alert Skin: normal inspection, normal color, no rash, warm/dry, palpation normal, well hydrated Lymphatic: normal inspection, no adenopathy Current Medications Current Medications Medications (Trade) Dose Ordered Sig/Va Route PRN Reason Start Time Stop Time Status Last Admin Dose Admin Acetaminophen (Tylenol) 650 mg Q4H PRN ORAL FEVER 05/14/18 10:00 06/13/18 09:59 Albuterol/ Ipratropium (Albuterol/ Ipratropium) 3 ml Q4H PRN HHN Shortness of Breath 05/14/18 10:00 05/19/18 09:59 Baclofen (Lioresal) 10 mg THREE TIMES A DAY GT 05/14/18 13:00 06/13/18 12:59 05/15/18 12:50 Chlorhexidine Gluconate (Rebecca-Hex 2%) 1 applic DAILY@2000 TOPIC 05/14/18 20:00 06/13/18 19:59 05/14/18 20:27 Dextrose (Dextrose 50%) 25 ml STAT PRN IV Hypoglycemia 05/15/18 08:45 06/14/18 08:44 Dextrose (Dextrose 50%) 50 ml STAT PRN IV Hypoglycemia 05/15/18 08:45 06/14/18 08:44 Heparin Sodium (Porcine) (Heparin 5000 units/ml) 5,000 units EVERY 12 HOURS SUBQ 05/14/18 21:00 06/13/18 20:59 05/15/18 10:00 Insulin Aspart (NovoLOG) BEFORE MEALS AND HS SUBQ 05/15/18 11:30 06/14/18 11:29 05/15/18 13:25 Lansoprazole (Prevacid) 30 mg DAILY GT 05/16/18 09:00 06/15/18 08:59 Levetiracetam (Keppra) 1,000 mg Q8HR GT 05/14/18 13:00 06/13/18 12:59 05/15/18 12:51 Lorazepam (Ativan 2mg/ml 1ml) 2 mg Q2H PRN IV For Anxiety 05/14/18 10:00 05/21/18 09:59 Morphine Sulfate (Morphine Sulfate) 4 mg Q4H PRN IVP Severe Pain (Pain Scale 7-10) 05/14/18 10:00 05/21/18 09:59 Ondansetron HCl (Zofran) 4 mg Q6H PRN IVP Nausea & Vomiting 05/14/18 10:00 06/13/18 09:59 Piperacillin Sod/ Tazobactam Sod 3.375 gm/Sodium Chloride 110 ml @ 27.5 mls/hr EVERY 8 HOURS IVPB 05/15/18 11:30 05/20/18 11:29 05/15/18 12:45 Polyethylene Glycol (Miralax) 17 gm DAILYPRN PRN ORAL Constipation 05/14/18 10:00 06/13/18 09:59 Potassium Phosphate 20 mm/ Sodium Chloride 281.6667 ml @ 46.944 m... ONCE ONCE IV 05/15/18 09:30 05/15/18 15:29 05/15/18 12:45 Sodium Chloride 1,000 ml @ 75 mls/hr [id number] IV 05/15/18 09:00 06/13/18 08:59 05/15/18 10:00 Vancomycin HCl/ Dextrose 250 ml @ 125 mls/hr Q12H IVPB 05/14/18 12:00 05/19/18 11:59 05/15/18 12:45 GI: Plan Problems: (1) Gastrostomy tube dependent (2) Diabetes mellitus (3) Colostomy in place (4) Severe sepsis (5) Stoma malfunction Plan prolapse stoma assessed >> no s/sx of infection. no obstruction. anemia work up reviewed >> iron deficiency G tube dependent hepatitis panel pending consider surgical consult monitor H&H, prn transfusions venofer ppi GTFs per RD, adv to goal GT site care daily/prn abx fu labs Discussed with Dr. Prater. Thank you for this patient referral, we will follow. The patient was seen and examined at bedside and all new and available data was reviewed in the patients chart. I agree with the above findings, impression and plan. (Patient seen earlier today. Signature stamp does not reflect patient encounter time.). - MD Lien Alvarenga,[facility] [employer] SUPERVISOR May 15, 2018 13:58
--- NOTE | 2018-05-15 15:42 | Cardiology Report ---
APPROVED REPORT EKG Measurement Heart [id number] MI 140P5 [id number] Sinus tachycardia Possible Left atrial enlargement Cannot rule out Inferior infarct, age undetermined Abnormal ECG
--- NOTE | 2018-05-15 16:49 | Consultation ---
History of Present Illness General Date patient seen: May 15, 2018 Chief Complaint: Fever Referring physician: EDGAR CARTY Reason for Consultation: PROLAPSE STOMA Present Illness HPI 52 y/o M with hx of chronic resp failure trach/vent dependant, BPH, GERD, HTN, DM2, seizure disorder, colostomy, s/p GT, constipation presents to ED on 05/13 with fever, tachycardia and hypotension. Found to have DIVYA, T up to 103 and consolidation on CXR. No n/v/d Allergies: Coded Allergies: AZTREONAM (Verified Allergy, Unknown, 05/13/18) Medication History Scheduled Baclofen* (Baclofen*), 10 MG GT THREE TIMES A DAY, (Reported) Bisacodyl* (Dulcolax*), 10 MG RECTAL DAILY, (Reported) Calcium Carbonate (Calcium Carbonate), 1,000 MG GT BID, (Reported) Chlorhexidine Gluconate (Peridex), 15 ML MM Q12HR, (Reported) Cholecalciferol (Vitamin D3)* (Vitamin D*), 5,000 UNIT GT ONCE A WEEK, (Reported ) Clonidine Hcl* (Catapres*), 0.1 MG GT EVERY 6 HOURS, (Reported) Cranberry (Cranberry), 400 MG GT DAILY, (Reported) Dextran 70/Hypromellose (Artificial Tears Eye Drops*), 1 DROP BOTH EYES Q4HR, ( Reported) Docusate Sodium* (Docusate Sodium*), 100 MG GT TWICE A DAY, (Reported) Famotidine (Famotidine), 20 MG GT DAILY, (Reported) Glycopyrrolate (Robinul), 2 MG GT BID, (Reported) Insulin Regular, Human* (Novolin R*), 0 SUBQ .SLIDING SCALE, (Reported) Ipratropium/Albuterol Sulfate (DuoNeb 0.5-3(2.5)mg/3ml), 3 ML HHN Q3HR, ( Reported) Levetiracetam* (Levetiracetam*), 1,000 MG GT TID, (Reported) Losartan Potassium* (Losartan Potassium*), 25 MG GT DAILY, (Reported) Multivitamin With Minerals (Multivitamins With Minerals*), 1 TAB GT DAILY, ( Reported) Nystatin* (Nystatin*), 1 APPLIC TOPIC THREE TIMES A DAY, (Reported) Polyethylene Glycol 3350* (Miralax*), 17 GM GT DAILY, (Reported) Sitagliptin* (Januvia*), 50 MG GT DAILY, (Reported) Spironolactone* (Aldactone*), 25 MG GT DAILY, (Reported) Scheduled PRN Acetaminophen 160MG/5ML* (Acetaminophen*), 20.3 ML GT Q4HR PRN for Fever/ Headache/Mild Pain, (Reported) Miscellaneous Medications Lactulose (Lactulose*), 30 ML GT, (Reported) Patient History Healthcare decision maker unk Resuscitation status Full Code Advanced Directive on File No Patient History Narrative PMHx: as above Shx: reviewed Fhx: non contributory Physical Exam Physical Exam Narrative GENERAL: The patient is awake, in no overt distress. HEENT: Extraocular muscles intact. No lymphadenopathy noted. Tracheostomy noted. CARDIOVASCULAR: S1 and S2. Tachycardic. No rubs or gallops. PULMONARY: Mild diffuse expiratory rhonchi with basilar rales. ABDOMEN: Obese and nondistended. The G-tube and stoma noted. EXTREMITIES: No edema. Fair pedal pulses. Last 24 Hour Vital Signs Date Time Temp Pulse Resp B/P (MAP) Pulse Ox O2 Delivery O2 Flow Rate FiO2 05/15/18 16:00 Mechanical Ventilator 05/15/18 16:00 35 05/15/18 15:06 86 16 30 05/15/18 13:17 90 16 30 05/15/18 12:00 Mechanical Ventilator 05/15/18 12:00 35 05/15/18 12:00 90 05/15/18 10:59 97 16 30 05/15/18 08:39 96 16 30 05/15/18 08:00 35 05/15/18 08:00 93 05/15/18 08:00 Mechanical Ventilator 05/15/18 07:29 91 16 30 05/15/18 07:00 95 16 97/63 (74) 100 05/15/18 06:00 94 16 103/68 (80) 100 05/15/18 05:29 96 16 30 05/15/18 05:00 102 16 92/56 (68) 98 05/15/18 04:00 35 05/15/18 04:00 Mechanical Ventilator 05/15/18 04:00 100 05/15/18 04:00 98.4 99 16 97/59 (72) 98 98.4 05/15/18 03:21 97 16 30 05/15/18 03:00 102 16 96/64 (75) 98 05/15/18 02:00 96 17 99/63 (75) 98 05/15/18 01:09 98 16 30 05/15/18 01:00 103 16 103/52 (69) 97 05/15/18 00:00 98.6 102 16 109/50 (69) 98 98.6 05/15/18 00:00 35 05/15/18 00:00 102 05/15/18 00:00 Mechanical Ventilator 05/14/18 23:00 100 16 103/50 (67) 100 05/14/18 22:38 99 16 30 05/14/18 22:00 100 16 94/50 (65) 100 05/14/18 21:17 96 16 30 05/14/18 21:00 97 16 94/55 (68) 99 05/14/18 20:00 99 05/14/18 20:00 98.1 98 16 90/60 (70) 100 98.1 05/14/18 20:00 35 05/14/18 20:00 Mechanical Ventilator 05/14/18 19:15 101 16 30 05/14/18 19:00 101 17 90/55 (67) 99 05/14/18 18:00 99 17 95/58 (70) 98 05/14/18 17:00 100 17 94/64 (74) 98 05/14/18 16:56 98 16 35 Intake and Output 05/14/18 05/15/18 19:00 07:00 Intake Total 1125 ml 2020 ml Output Total 840 ml 1085 ml Balance 285 ml 935 ml IV Total 1125 ml 1750 ml Tube Feeding 270 ml Output Urine Total 840 ml 735 ml Chest Tube Drainage Total 350 ml Laboratory Tests Test 05/14/18 17:30 05/15/18 05:00 05/15/18 10:30 Lactic Acid Level 1.40 mmol/L (0.4-2.0) White Blood Count 12.0 K/UL (4.8-10.8) H Red Blood Count 3.83 M/UL (4.70-6.10) L Hemoglobin 10.4 G/DL (14.2-18.0) L Hematocrit 33.1 % (42.0-52.0) L Mean Corpuscular Volume 87 FL (80-99) Mean Corpuscular Hemoglobin 27.2 PG (27.0-31.0) Mean Corpuscular Hemoglobin Concent 31.4 G/DL (32.0-36.0) L Red Cell Distribution Width 14.6 % (11.6-14.8) Platelet Count 173 K/UL (150-450) Mean Platelet Volume 8.8 FL (6.5-10.1) Neutrophils (%) (Auto) 80.0 % (45.0-75.0) H Lymphocytes (%) (Auto) 10.5 % (20.0-45.0) L Monocytes (%) (Auto) 6.5 % (1.0-10.0) Eosinophils (%) (Auto) 2.6 % (0.0-3.0) Basophils (%) (Auto) 0.5 % (0.0-2.0) Differential Total Cells Counted 100 Neutrophils % (Manual) 80 % (45-75) H Lymphocytes % (Manual) 10 % (20-45) L Monocytes % (Manual) 7 % (1-10) Eosinophils % (Manual) 3 % (0-3) Basophils % (Manual) 0 % (0-2) Band Neutrophils 0 % (0-8) Platelet Estimate Adequate Platelet Morphology Normal Microcytosis 1+ Tear Drop Cells 1+ Reticulocyte Count 2.3 % (0.0-2.0) H Sodium Level 141 MMOL/L (136-145) Potassium Level 3.2 MMOL/L (3.5-5.1) L Chloride Level 107 MMOL/L (98-107) Carbon Dioxide Level 21 MMOL/L (21-32) Anion Gap 13 mmol/L (5-15) Blood Urea Nitrogen 20 mg/dL (7-18) H Creatinine 1.1 MG/DL (0.55-1.30) Estimat Glomerular Filtration Rate > 60 mL/min (>60) Glucose Level 195 MG/DL (74-106) H Calcium Level 9.4 MG/DL (8.5-10.1) Phosphorus Level 1.9 MG/DL (2.5-4.9) L Iron Level 19 ug/dL (50-175) L Total Iron Binding Capacity 256 ug/dL (250-450) Percent Iron Saturation 7 % (15-50) L Unsaturated Iron Binding 237 ug/dL (112-346) Ferritin 1104 NG/ML (8-388) H Albumin 3.0 G/DL (3.4-5.0) L Folate 42.2 NG/ML (8.6-58.9) Thyroid Stimulating Hormone (TSH) 1.629 uiU/mL (0.358-3.740) Hepatitis A IgM Antibody Pending Hepatitis B Surface Antigen Pending Hepatitis B Core IgM Antibody Pending Hepatitis C Antibody Pending Height (Feet): 6 Weight (Pounds): 218 Medications Current Medications Medications (Trade) Dose Ordered Sig/Va Route PRN Reason Start Time Stop Time Status Last Admin Dose Admin Acetaminophen (Tylenol) 650 mg Q4H PRN ORAL FEVER 05/14/18 10:00 06/13/18 09:59 Albuterol/ Ipratropium (Albuterol/ Ipratropium) 3 ml Q4H PRN HHN Shortness of Breath 05/14/18 10:00 05/19/18 09:59 Baclofen (Lioresal) 10 mg THREE TIMES A DAY GT 05/14/18 13:00 06/13/18 12:59 05/15/18 12:50 Chlorhexidine Gluconate (Rebecca-Hex 2%) 1 applic DAILY@1999 TOPIC 05/14/18 20:00 06/13/18 19:59 05/14/18 20:27 Dextrose (Dextrose 50%) 25 ml STAT PRN IV Hypoglycemia 05/15/18 08:45 06/14/18 08:44 Dextrose (Dextrose 50%) 50 ml STAT PRN IV Hypoglycemia 05/15/18 08:45 06/14/18 08:44 Heparin Sodium (Porcine) (Heparin 5000 units/ml) 5,000 units EVERY 12 HOURS SUBQ 05/14/18 21:00 06/13/18 20:59 05/15/18 10:00 Insulin Aspart (NovoLOG) BEFORE MEALS AND HS SUBQ 05/15/18 11:30 06/14/18 11:29 05/15/18 13:25 Iron Sucrose 100 mg/Sodium Chloride 60 ml @ 240 mls/hr BEDTIME IV 05/16/18 21:00 05/20/18 21:14 Lansoprazole (Prevacid) 30 mg DAILY GT 05/16/18 09:00 06/15/18 08:59 Levetiracetam (Keppra) 1,000 mg Q8HR GT 05/14/18 13:00 06/13/18 12:59 05/15/18 12:51 Lorazepam (Ativan 2mg/ml 1ml) 2 mg Q2H PRN IV For Anxiety 05/14/18 10:00 05/21/18 09:59 Morphine Sulfate (Morphine Sulfate) 4 mg Q4H PRN IVP Severe Pain (Pain Scale 7-10) 05/14/18 10:00 05/21/18 09:59 Ondansetron HCl (Zofran) 4 mg Q6H PRN IVP Nausea & Vomiting 05/14/18 10:00 06/13/18 09:59 Piperacillin Sod/ Tazobactam Sod 3.375 gm/Sodium Chloride 110 ml @ 27.5 mls/hr EVERY 8 HOURS IVPB 05/15/18 11:30 05/20/18 11:29 05/15/18 12:45 Polyethylene Glycol (Miralax) 17 gm BEDTIME ORAL 05/15/18 21:00 06/14/18 20:59 Sodium Chloride 1,000 ml @ 75 mls/hr [id number] IV 05/15/18 09:00 06/13/18 08:59 05/15/18 10:00 Vancomycin HCl/ Dextrose 250 ml @ 125 mls/hr Q12H IVPB 05/14/18 12:00 05/19/18 11:59 05/15/18 12:45 Assessment/Plan Assessment/Plan Abx: Zosyn 05/14- IV Vanco 05/14- Assessment: Sepsis 2ry to UTI and Bacteremia- ?pyelo. Possible PNA -u/a wbc 40-60, nit neg, leuk +2; ucx >100k GNR -BCX 01/23 GNRs -CXR: Cardiomegaly. Mild interstitial congestion. Suspect small bilateral pleural effusions -CT abd/p: Right lower quadrant double barrel colostomy, as described. Small peristomal hernia contains bowel loops without evidence of obstruction or strangulation. Left renal staghorn calculus. Bilateral intrarenal calyceal calculi. Borderline hydronephrosis on the right without evidence of downstream obstructive lesion. May indicate mild ureteral pelvic junction obstruction. Somewhat atrophic left kidney. Inspissated contrast ball within the distal sigmoid colon. Gastrostomy in good position. Nonspecific bilateral perinephric fat stranding, could indicate pyelonephritis or could be chronic. Newberry catheter in place. Apparent bladder wall thickening, possibly an artifact of under distention but cystitis is not excludable, particularly in view of mild perivesical fat stranding. Bilateral pulmonary parenchymal atelectasis and consolidation Fever/Leukocytosis DIVYA, improving Lactic acidosis, resolved chronic resp failure trach/vent dependant BPH GERD HTN DM2 seizure disorder colostomy s/p GT constipation Plan: -Cotninue empiric IV Vancomcyin #2 pending sp cx -Continue empiric Zosyn #2 pendign ID GNR Bcx and ucx -if decompensating, switch Zosyn to Meropenem. -f/u cx -Monitor CBC/CMP, temperatures Thank you for this consultation. Will continue to follow along with you. Discussed with JAMSHID. Maribel Barrera M.D. May 15, 2018 16:49
--- NOTE | 2018-05-15 19:16 | General Progress Note ---
Assessment/Plan Status: unchanged Assessment/Plan # Anemia of chronic disease. No hemolysis, peripheral smear reviewed, ferritin is elevated --> Continue to closely monitor for improvement. --> Anemia w/u has been reviewed. Will trend cbc daily. --> Hgb goal >7 # Leukocytosis - Sepsis with elevated temperature of 103 degrees Fahrenheit. --> Lactic acid pending, was elevated upon admission. --> Pt on antibiotics, has received a dose of Zosyn and currently is on vancomycin q.12 h. --> Currently afebrile. --> Appreciate Infectious Disease consult. # Acute kidney injury. --> Currently on IV fluids, IV bolus given to see if the patient responds along with IV pressor as needed. --> Closely monitor with Nephrology team. # Septic shock, use antibiotic per ID services. --> potential pna, bacteremia # Respiratory failure, status post tracheostomy, on mechanical ventilation per Dr. Goetz. # Hypercalcemia. Monitor PTH and calcium level The time the note was entered does not necessarily correspond to the time the patient was seen. Subjective Date patient seen: May 15, 2018 ROS Limited/Unobtainable: Yes Hematologic/Lymphatic: Reports: anemia Allergies: Coded Allergies: AZTREONAM (Verified Allergy, Unknown, 05/13/18) All Systems: reviewed and negative except above Subjective Pt remains in ICU. Pt obtunded. No acute events. Covering for Dr. Bhat Objective Last 24 Hour Vital Signs Date Time Temp Pulse Resp B/P (MAP) Pulse Ox O2 Delivery O2 Flow Rate FiO2 05/15/18 19:02 86 16 30 05/15/18 18:00 80 16 103/64 (77) 100 05/15/18 17:05 83 16 30 05/15/18 17:00 80 16 107/70 (82) 100 05/15/18 16:00 98.8 85 16 97/65 (76) 100 98.8 05/15/18 16:00 Mechanical Ventilator 05/15/18 16:00 35 05/15/18 16:00 83 05/15/18 15:06 86 16 30 05/15/18 15:00 84 16 104/68 (80) 100 05/15/18 14:00 88 16 106/74 (85) 100 05/15/18 13:17 90 16 30 7/25/18 13:00 88 16 104/64 (77) 100 05/15/18 12:00 Mechanical Ventilator 05/15/18 12:00 98.9 86 16 105/70 (82) 100 98.9 05/15/18 12:00 35 05/15/18 12:00 90 05/15/18 11:00 90 16 109/71 (84) 100 05/15/18 10:59 97 16 30 05/15/18 10:00 92 16 104/74 (84) 100 05/15/18 09:00 98.3 92 16 111/71 (84) 99 98.3 05/15/18 08:39 96 16 30 05/15/18 08:00 93 16 97/63 (74) 99 05/15/18 08:00 35 05/15/18 08:00 93 05/15/18 08:00 Mechanical Ventilator 05/15/18 07:29 91 16 30 05/15/18 07:00 95 16 97/63 (74) 100 05/15/18 06:00 94 16 103/68 (80) 100 05/15/18 05:29 96 16 30 05/15/18 05:00 102 16 92/56 (68) 98 05/15/18 04:00 35 05/15/18 04:00 Mechanical Ventilator 05/15/18 04:00 100 05/15/18 04:00 98.4 99 16 97/59 (72) 98 98.4 05/15/18 03:21 97 16 30 05/15/18 03:00 102 16 96/64 (75) 98 05/15/18 02:00 96 17 99/63 (75) 98 05/15/18 01:09 98 16 30 05/15/18 01:00 103 16 103/52 (69) 97 05/15/18 00:00 98.6 102 16 109/50 (69) 98 98.6 05/15/18 00:00 35 05/15/18 00:00 102 05/15/18 00:00 Mechanical Ventilator 05/14/18 23:00 100 16 103/50 (67) 100 05/14/18 22:38 99 16 30 05/14/18 22:00 100 16 94/50 (65) 100 05/14/18 21:17 96 16 30 05/14/18 21:00 97 16 94/55 (68) 99 7/24/18 20:00 99 05/14/18 20:00 98.1 98 16 90/60 (70) 100 98.1 05/14/18 20:00 35 05/14/18 20:00 Mechanical Ventilator 05/14/18 19:15 101 16 30 Intake and Output 05/14/18 05/15/18 19:00 07:00 Intake Total 1125 ml 2020 ml Output Total 840 ml 1085 ml Balance 285 ml 935 ml IV Total 1125 ml 1750 ml Tube Feeding 270 ml Output Urine Total 840 ml 735 ml Chest Tube Drainage Total 350 ml Laboratory Tests 05/15/18 05:00: White Blood Count 12.0H, Red Blood Count 3.83L, Hemoglobin 10.4L, Hematocrit 33.1L, Mean Corpuscular Volume 87, Mean Corpuscular Hemoglobin 27.2, Mean Corpuscular Hemoglobin Concent 31.4L, Red Cell Distribution Width 14.6, Platelet Count 173, Mean Platelet Volume 8.8, Neutrophils (%) (Auto) 80.0H, Lymphocytes (%) (Auto) 10.5L, Monocytes (%) (Auto) 6.5, Eosinophils (%) (Auto) 2.6, Basophils (%) (Auto) 0.5, Differential Total Cells Counted 100, Neutrophils % (Manual) 80H, Lymphocytes % (Manual) 10L, Monocytes % (Manual) 7, Eosinophils % (Manual) 3, Basophils % (Manual) 0, Band Neutrophils 0, Platelet Estimate Adequate, Platelet Morphology Normal, Microcytosis 1+, Tear Drop Cells 1+, Reticulocyte Count 2.3H, Sodium Level 141, Potassium Level 3.2L, Chloride Level 107, Carbon Dioxide Level 21, Anion Gap 13, Blood Urea Nitrogen 20H, Creatinine 1.1, Estimat Glomerular Filtration Rate > 60, Glucose Level 195H, Calcium Level 9.4, Phosphorus Level 1.9L, Iron Level 19L, Total Iron Binding Capacity 256, Percent Iron Saturation 7L, Unsaturated Iron Binding 237, Ferritin 1104H, Albumin 3.0L, Folate 42.2, Thyroid Stimulating Hormone (TSH) 1.629 05/15/18 10:30: Hepatitis A IgM Antibody [Pending], Hepatitis B Surface Antigen [Pending], Hepatitis B Core IgM Antibody [Pending], Hepatitis C Antibody [Pending] Height (Feet): 6 Weight (Pounds): 218 General Appearance: no apparent distress, lethargic EENT: PERRL/EOMI Neck: normal alignment Cardiovascular: normal peripheral pulses Respiratory/Chest: no respiratory distress Abdomen: no organomegaly, no mass Jimmy Fleming MD May 15, 2018 19:16
[2018-05-15] MEDS: Dyna-Hex 2% Top Sol 2oz TOPIC SCH (19:52)
[2018-05-15] MEDS ORDERED: Miralax 17gm pkt ORAL SCH (21:00)
[2018-05-15] MEDS ORDERED: Vancomycin 1 GM in D5W 275 ML IV SCH (23:00)
[2018-05-16] VITALS (15 sets, daily range): BP systolic 105–129; BP diastolic 61–79
[2018-05-16 05:14] LABS: BASOPHILS % (AUTO) 0.4 % (0.0-2.0); EOSINOPHILS % (AUTO) 7.4 % (0.0-3.0); HEMATOCRIT 33.1 % (42.0-52.0); HEMOGLOBIN 10.4 G/DL (14.2-18.0); LYMPHOCYTES % (AUTO) 17.5 % (20.0-45.0); MEAN CORPUSCULAR VOLUME 87 FL (80-99); MONOCYTES % (AUTO) 11.6 % (1.0-10.0); NEUTROPHILS % (AUTO) 63.2 % (45.0-75.0); PLATELET COUNT 181 K/UL (150-450); RED BLOOD COUNT 3.81 M/UL (4.70-6.10); RED CELL DISTRIBUTION WIDTH 14.3 % (11.6-14.8)
[2018-05-16 05:41] LABS: PHOSPHORUS 2.3 MG/DL (2.5-4.9)
[2018-05-16 05:48] LABS: ALANINE AMINOTRANSFERASE 33 U/L (12-78); ALBUMIN 2.9 G/DL (3.4-5.0); ALBUMIN/GLOBULIN RATIO 0.6 (1.0-2.7); ALKALINE PHOSPHATASE 88 U/L (46-116); ANION GAP 10 mmol/L (5-15); ASPARTATE AMINO TRANSFERASE 16 U/L (15-37); BILIRUBIN,TOTAL 0.4 MG/DL (0.2-1.0); BLOOD UREA NITROGEN 11 mg/dL (7-18); CALCIUM 9.3 MG/DL (8.5-10.1); CARBON DIOXIDE 22 MMOL/L (21-32); CHLORIDE 109 MMOL/L (98-107); CREATININE 1.1 MG/DL (0.55-1.30); POTASSIUM 3.4 MMOL/L (3.5-5.1); SODIUM 141 MMOL/L (136-145)
[2018-05-16] MEDS: levETIRAcetam 500mg/5ml Liquid GT SCH ×3 (06:05→21:20)
[2018-05-16] MEDS: Zosyn 3.375gm q8h **Extended infusion IVPB SCH ×2 (06:05)
[2018-05-16] MEDS: NovoLOG Insulin Flexpen SUBQ SCH ×5 (06:07→23:50)
--- NOTE | 2018-05-16 08:01 | Nephrology Progress Note ---
Assessment/Plan Assessment/Plan 1. DIVYA- due to multifactorial ATN (sepsis/hypotension) - resolved. DC IVFs. Patient on TFs 2. Septic Shock- Abx. BP now stable 3. Chronic Resp FL- trached on vent 4. Hypok/Phos- being replaced today again Subjective Date patient seen: May 16, 2018 Time patient seen: 07:59 ROS Limited/Unobtainable: Yes Allergies: Coded Allergies: AZTREONAM (Verified Allergy, Unknown, 05/13/18) Subjective Patient remains trached/vent nonverbal. Stable Objective Last 24 Hour Vital Signs Date Time Temp Pulse Resp B/P (MAP) Pulse Ox O2 Delivery O2 Flow Rate FiO2 05/16/18 07:00 66 16 114/73 (87) 100 05/16/18 06:00 70 16 109/71 (84) 100 05/16/18 05:05 73 17 30 05/16/18 05:00 72 16 108/72 (84) 100 05/16/18 04:00 Mechanical Ventilator 05/16/18 04:00 98.6 69 16 114/79 (91) 100 98.6 05/16/18 04:00 35 05/16/18 04:00 71 05/16/18 03:00 75 16 111/66 (81) 100 05/16/18 02:50 72 16 30 05/16/18 02:00 74 16 108/71 (83) 100 05/16/18 01:00 72 16 105/61 (76) 100 05/16/18 01:00 75 16 30 05/16/18 00:00 77 05/16/18 00:00 35 05/16/18 00:00 80 16 116/74 (88) 100 05/16/18 00:00 Mechanical Ventilator 05/15/18 23:00 80 16 110/70 (83) 100 05/15/18 22:56 76 16 30 05/15/18 22:00 80 16 112/74 (87) 100 05/15/18 21:00 80 16 104/70 (81) 100 05/15/18 20:55 76 18 30 05/15/18 20:00 80 05/15/18 20:00 35 05/15/18 20:00 98.8 80 16 105/70 (82) 100 98.8 05/15/18 20:00 Mechanical Ventilator 05/15/18 19:02 86 16 30 05/15/18 19:00 80 16 100/65 (77) 100 05/15/18 18:00 80 16 103/64 (77) 100 05/15/18 17:05 83 16 30 05/15/18 17:00 80 16 107/70 (82) 100 05/15/18 16:00 98.8 85 16 97/65 (76) 100 98.8 05/15/18 16:00 Mechanical Ventilator 05/15/18 16:00 35 05/15/18 16:00 83 05/15/18 15:06 86 16 30 05/15/18 15:00 84 16 104/68 (80) 100 05/15/18 14:00 88 16 106/74 (85) 100 05/15/18 13:17 90 16 30 05/15/18 13:00 88 16 104/64 (77) 100 05/15/18 12:00 Mechanical Ventilator 05/15/18 12:00 98.9 86 16 105/70 (82) 100 98.9 05/15/18 12:00 35 05/15/18 12:00 90 05/15/18 11:00 90 16 109/71 (84) 100 05/15/18 10:59 97 16 30 05/15/18 10:00 92 16 104/74 (84) 100 05/15/18 09:00 98.3 92 16 111/71 (84) 99 98.3 05/15/18 08:39 96 16 30 05/15/18 08:00 93 16 97/63 (74) 99 05/15/18 08:00 35 05/15/18 08:00 93 05/15/18 08:00 Mechanical Ventilator Intake and Output 05/15/18 05/16/18 19:00 07:00 Intake Total 2112.976 ml 1812.5 ml Output Total 1040 ml 1470 ml Balance 1072.976 ml 342.5 ml IV Total 1472.976 ml 1037.5 ml Tube Feeding 440 ml 675 ml Other 200 ml 100 ml Output Urine Total 740 ml 720 ml Stool Total 300 ml 750 ml Laboratory Tests 05/15/18 10:30: Hepatitis A IgM Antibody [Pending], Hepatitis B Surface Antigen [Pending], Hepatitis B Core IgM Antibody [Pending], Hepatitis C Antibody [Pending] 05/15/18 23:17: Vancomycin Level Trough 23.4H 05/16/18 00:30: Stool Occult Blood [Pending] 05/16/18 04:00: White Blood Count 7.0, Red Blood Count 3.81L, Hemoglobin 10.4L, Hematocrit 33.1L , Mean Corpuscular Volume 87, Mean Corpuscular Hemoglobin 27.3, Mean Corpuscular Hemoglobin Concent 31.5L, Red Cell Distribution Width 14.3, Platelet Count 181, Mean Platelet Volume 9.2, Neutrophils (%) (Auto) 63.2, Lymphocytes (%) (Auto) 17.5L, Monocytes (%) (Auto) 11.6H, Eosinophils (%) (Auto ) 7.4H, Basophils (%) (Auto) 0.4, Sodium Level 141, Potassium Level 3.4L, Chloride Level 109H, Carbon Dioxide Level 22, Anion Gap 10, Blood Urea Nitrogen 11, Creatinine 1.1, Estimat Glomerular Filtration Rate > 60, Glucose Level 190H , Calcium Level 9.3, Phosphorus Level 2.3L, Magnesium Level 1.8, Total Bilirubin 0.4, Aspartate Amino Transf (AST/SGOT) 16, Alanine Aminotransferase ( ALT/SGPT) 33, Alkaline Phosphatase 88, Total Protein 7.7, Albumin 2.9L, Globulin 4.8, Albumin/Globulin Ratio 0.6L Height (Feet): 6 Weight (Pounds): 207 General Appearance: WD/WN, no apparent distress EENT: PERRL/EOMI Neck: non-tender, normal alignment, supple Cardiovascular: normal peripheral pulses, normal rate, regular rhythm Respiratory/Chest: chest wall non-tender, normal breath sounds, rhonchi - bilaterally Abdomen: normal bowel sounds, non tender, soft Edema: no edema noted Arm (L), no edema noted Arm (R), no edema noted Leg (L), no edema noted Leg (R), no edema noted Pedal (L), no edema noted Pedal (R), no edema noted Generalized Mir Gann M.D. May 16, 2018 08:01
[2018-05-16] MEDS ORDERED: Vancomycin 1gm in D5W 275ml IVPB SCH (09:00)
[2018-05-16] MEDS: Heparin 5000 units/ml inj SUBQ SCH ×2 (09:48→21:17)
[2018-05-16] MEDS ORDERED: Potassium Phosphate 20 MM in NS 275 ML IV SCH (10:00)
--- NOTE | 2018-05-16 10:37 | Pulmonolgy Critical Care Note ---
Critical Care - Asmt/Plan Problems: (1) Acute on chronic respiratory failure (2) Acute on chronic renal insufficiency (3) Severe sepsis (4) Vegetative state (5) Colostomy in place (6) Diabetes mellitus Respiratory: monitor respiratory rate, adjust FIO2, CXR Cardiac: continue to monitor HR/BP Renal: F/U I&O Infectious Disease: check cultures Gastrointestinal: continue feedings/current rate Endocrine: monitor blood sugar, check HgA1C Neurologic: PRN Morphine Prophylaxis: Protonix, Heparin Disposition: keep in ICU Time Spent (Minutes): 40 Critical Care - Objective Last 24 Hour Vital Signs Date Time Temp Pulse Resp B/P (MAP) Pulse Ox O2 Delivery O2 Flow Rate FiO2 05/16/18 09:29 73 16 30 05/16/18 08:00 30 05/16/18 08:00 98.7 68 16 110/71 (84) 100 98.7 05/16/18 07:00 66 16 114/73 (87) 100 05/16/18 06:33 65 16 30 05/16/18 06:00 70 16 109/71 (84) 100 05/16/18 05:05 73 17 30 05/16/18 05:00 72 16 108/72 (84) 100 05/16/18 04:00 Mechanical Ventilator 05/16/18 04:00 98.6 69 16 114/79 (91) 100 98.6 05/16/18 04:00 35 05/16/18 04:00 71 05/16/18 03:00 75 16 111/66 (81) 100 05/16/18 02:50 72 16 30 05/16/18 02:00 74 16 108/71 (83) 100 05/16/18 01:00 72 16 105/61 (76) 100 05/16/18 01:00 75 16 30 05/16/18 00:00 77 05/16/18 00:00 35 05/16/18 00:00 80 16 116/74 (88) 100 05/16/18 00:00 Mechanical Ventilator 05/15/18 23:00 80 16 110/70 (83) 100 05/15/18 22:56 76 16 30 05/15/18 22:00 80 16 112/74 (87) 100 05/15/18 21:00 80 16 104/70 (81) 100 05/15/18 20:55 76 18 30 05/15/18 20:00 80 05/15/18 20:00 35 05/15/18 20:00 98.8 80 16 105/70 (82) 100 98.8 05/15/18 20:00 Mechanical Ventilator 05/15/18 19:02 86 16 30 05/15/18 19:00 80 16 100/65 (77) 100 05/15/18 18:00 80 16 103/64 (77) 100 05/15/18 17:05 83 16 30 05/15/18 17:00 80 16 107/70 (82) 100 05/15/18 16:00 98.8 85 16 97/65 (76) 100 98.8 05/15/18 16:00 Mechanical Ventilator 05/15/18 16:00 35 05/15/18 16:00 83 05/15/18 15:06 86 16 30 05/15/18 15:00 84 16 104/68 (80) 100 05/15/18 14:00 88 16 106/74 (85) 100 05/15/18 13:17 90 16 30 05/15/18 13:00 88 16 104/64 (77) 100 05/15/18 12:00 Mechanical Ventilator 05/15/18 12:00 98.9 86 16 105/70 (82) 100 98.9 05/15/18 12:00 35 05/15/18 12:00 90 05/15/18 11:00 90 16 109/71 (84) 100 05/15/18 10:59 97 16 30 Status: obtunded Condition: critical Neck: full ROM Heart: HR/BP stable Abdomen: non-tender, active bowel sounds Extremities: edema Decubiti: location Micro: Microbiology Date/Time Source Procedure Growth Status 05/14/18 00:05 Blood Blood Culture - Preliminary Gram Negative Bacillus 1 Gram Negative Bacillus 2 Resulted 05/14/18 00:00 Blood Blood Culture - Preliminary Gram Negative Bacillus 1 Gram Negative Bacillus 2 Resulted 05/14/18 01:43 Urine,Clean Catch Urine Culture - Preliminary Gram Negative Bacillus 1 Resulted 05/14/18 00:05 Rectum VRE Culture - Final Enterococcus Faecalis - Vre Complete Accucheck: 204 Critical Care - Subjective ROS Limited/Unobtainable: Yes Condition: critical EKG Rhythm: Sinus Rhythm FI02: 30 Vent Support Breath Rate: 16 Vent Support Mode: AC Vent Tidal Volume: 600 Sputum Amount: Moderate PEEP: 5.0 PIP: 35 Tube Feeding Amount: 65 I&O: Intake and Output 05/15/18 05/16/18 19:00 07:00 Intake Total 2112.976 ml 1812.5 ml Output Total 1040 ml 1470 ml Balance 1072.976 ml 342.5 ml IV Total 1472.976 ml 1037.5 ml Tube Feeding 440 ml 675 ml Other 200 ml 100 ml Output Urine Total 740 ml 720 ml Stool Total 300 ml 750 ml Labs: Laboratory Tests Test 05/15/18 23:17 05/16/18 00:30 05/16/18 04:00 Vancomycin Level Trough 23.4 ug/mL (5.0-12.0) H Stool Occult Blood Pending White Blood Count 7.0 K/UL (4.8-10.8) Red Blood Count 3.81 M/UL (4.70-6.10) L Hemoglobin 10.4 G/DL (14.2-18.0) L Hematocrit 33.1 % (42.0-52.0) L Mean Corpuscular Volume 87 FL (80-99) Mean Corpuscular Hemoglobin 27.3 PG (27.0-31.0) Mean Corpuscular Hemoglobin Concent 31.5 G/DL (32.0-36.0) L Red Cell Distribution Width 14.3 % (11.6-14.8) Platelet Count 181 K/UL (150-450) Mean Platelet Volume 9.2 FL (6.5-10.1) Neutrophils (%) (Auto) 63.2 % (45.0-75.0) Lymphocytes (%) (Auto) 17.5 % (20.0-45.0) L Monocytes (%) (Auto) 11.6 % (1.0-10.0) H Eosinophils (%) (Auto) 7.4 % (0.0-3.0) H Basophils (%) (Auto) 0.4 % (0.0-2.0) Sodium Level 141 MMOL/L (136-145) Potassium Level 3.4 MMOL/L (3.5-5.1) L Chloride Level 109 MMOL/L (98-107) H Carbon Dioxide Level 22 MMOL/L (21-32) Anion Gap 10 mmol/L (5-15) Blood Urea Nitrogen 11 mg/dL (7-18) Creatinine 1.1 MG/DL (0.55-1.30) Estimat Glomerular Filtration Rate > 60 mL/min (>60) Glucose Level 190 MG/DL (74-106) H Calcium Level 9.3 MG/DL (8.5-10.1) Phosphorus Level 2.3 MG/DL (2.5-4.9) L Magnesium Level 1.8 MG/DL (1.8-2.4) Total Bilirubin 0.4 MG/DL (0.2-1.0) Aspartate Amino Transf (AST/SGOT) 16 U/L (15-37) Alanine Aminotransferase (ALT/SGPT) 33 U/L (12-78) Alkaline Phosphatase 88 U/L (46-116) Total Protein 7.7 G/DL (6.4-8.2) Albumin 2.9 G/DL (3.4-5.0) L Globulin 4.8 g/dL Albumin/Globulin Ratio 0.6 (1.0-2.7) L Nico Goetz MD May 16, 2018 10:37
[2018-05-16] MEDS ORDERED: LORazepam Inj 2mg/ml 1ml IV PRN (12:00)
--- NOTE | 2018-05-16 12:31 | General Progress Note ---
Assessment/Plan Status: unchanged Assessment/Plan # Anemia of chronic disease. No hemolysis, peripheral smear reviewed, ferritin is elevated --> Continue to closely monitor for improvement. --> Anemia w/u has been reviewed. Will trend cbc daily. --> Hgb goal >7 # Leukocytosis - Sepsis with elevated temperature of 103 degrees Fahrenheit. --> Lactic acid pending, was elevated upon admission. --> Pt on antibiotics, has received a dose of Zosyn and currently is on vancomycin q.12 h. --> Currently afebrile. --> Appreciate Infectious Disease consult. # Acute kidney injury. --> Currently on IV fluids, IV bolus given to see if the patient responds along with IV pressor as needed. --> Closely monitor with Nephrology team. # Septic shock, use antibiotic per ID services. --> potential pna, bacteremia # Respiratory failure, status post tracheostomy, on mechanical ventilation per Dr. Goetz. # Hypercalcemia. Monitor PTH and calcium level The time the note was entered does not necessarily correspond to the time the patient was seen. Subjective Date patient seen: May 16, 2018 ROS Limited/Unobtainable: Yes Hematologic/Lymphatic: Reports: anemia Allergies: Coded Allergies: AZTREONAM (Verified Allergy, Unknown, 05/13/18) All Systems: reviewed and negative except above Subjective Pt transferred from ICU to step down unit. Pt remains obtunded. No acute events. H/H stable. Covering for Dr. Bhat Objective Last 24 Hour Vital Signs Date Time Temp Pulse Resp B/P (MAP) Pulse Ox O2 Delivery O2 Flow Rate FiO2 05/16/18 12:00 Mechanical Ventilator 05/16/18 12:00 30 05/16/18 11:00 68 16 110/75 (87) 100 05/16/18 10:56 72 16 30 05/16/18 10:00 69 16 114/75 (88) 100 05/16/18 09:29 73 16 30 05/16/18 09:00 67 16 115/77 (90) 100 05/16/18 08:00 30 05/16/18 08:00 98.7 68 16 110/71 (84) 100 98.7 05/16/18 08:00 Mechanical Ventilator 05/16/18 08:00 68 05/16/18 07:00 66 16 114/73 (87) 100 05/16/18 06:33 65 16 30 05/16/18 06:00 70 16 109/71 (84) 100 05/16/18 05:05 73 17 30 05/16/18 05:00 72 16 108/72 (84) 100 05/16/18 04:00 Mechanical Ventilator 05/16/18 04:00 98.6 69 16 114/79 (91) 100 98.6 05/16/18 04:00 35 05/16/18 04:00 71 05/16/18 03:00 75 16 111/66 (81) 100 05/16/18 02:50 72 16 30 05/16/18 02:00 74 16 108/71 (83) 100 05/16/18 01:00 72 16 105/61 (76) 100 05/16/18 01:00 75 16 30 05/16/18 00:00 77 05/16/18 00:00 35 05/16/18 00:00 80 16 116/74 (88) 100 05/16/18 00:00 Mechanical Ventilator 05/15/18 23:00 80 16 110/70 (83) 100 05/15/18 22:56 76 16 30 05/15/18 22:00 80 16 112/74 (87) 100 05/15/18 21:00 80 16 104/70 (81) 100 05/15/18 20:55 76 18 30 05/15/18 20:00 80 05/15/18 20:00 35 05/15/18 20:00 98.8 80 16 105/70 (82) 100 98.8 05/15/18 20:00 Mechanical Ventilator 05/15/18 19:02 86 16 30 05/15/18 19:00 80 16 100/65 (77) 100 05/15/18 18:00 80 16 103/64 (77) 100 05/15/18 17:05 83 16 30 05/15/18 17:00 80 16 107/70 (82) 100 05/15/18 16:00 98.8 85 16 97/65 (76) 100 98.8 05/15/18 16:00 Mechanical Ventilator 05/15/18 16:00 35 05/15/18 16:00 83 05/15/18 15:06 86 16 30 05/15/18 15:00 84 16 104/68 (80) 100 05/15/18 14:00 88 16 106/74 (85) 100 05/15/18 13:17 90 16 30 05/15/18 13:00 88 16 104/64 (77) 100 Intake and Output 05/15/18 05/16/18 19:00 07:00 Intake Total 2112.976 ml 1812.5 ml Output Total 1040 ml 1470 ml Balance 1072.976 ml 342.5 ml IV Total 1472.976 ml 1037.5 ml Tube Feeding 440 ml 675 ml Other 200 ml 100 ml Output Urine Total 740 ml 720 ml Stool Total 300 ml 750 ml Laboratory Tests 05/15/18 23:17: Vancomycin Level Trough 23.4H 05/16/18 00:30: Stool Occult Blood Negative 05/16/18 04:00: White Blood Count 7.0, Red Blood Count 3.81L, Hemoglobin 10.4L, Hematocrit 33.1L , Mean Corpuscular Volume 87, Mean Corpuscular Hemoglobin 27.3, Mean Corpuscular Hemoglobin Concent 31.5L, Red Cell Distribution Width 14.3, Platelet Count 181, Mean Platelet Volume 9.2, Neutrophils (%) (Auto) 63.2, Lymphocytes (%) (Auto) 17.5L, Monocytes (%) (Auto) 11.6H, Eosinophils (%) (Auto ) 7.4H, Basophils (%) (Auto) 0.4, Sodium Level 141, Potassium Level 3.4L, Chloride Level 109H, Carbon Dioxide Level 22, Anion Gap 10, Blood Urea Nitrogen 11, Creatinine 1.1, Estimat Glomerular Filtration Rate > 60, Glucose Level 190H , Calcium Level 9.3, Phosphorus Level 2.3L, Magnesium Level 1.8, Total Bilirubin 0.4, Aspartate Amino Transf (AST/SGOT) 16, Alanine Aminotransferase ( ALT/SGPT) 33, Alkaline Phosphatase 88, Total Protein 7.7, Albumin 2.9L, Globulin 4.8, Albumin/Globulin Ratio 0.6L Height (Feet): 6 Weight (Pounds): 207 General Appearance: no apparent distress, lethargic EENT: PERRL/EOMI Neck: normal alignment Cardiovascular: normal peripheral pulses Respiratory/Chest: no respiratory distress Abdomen: soft Jimmy Fleming MD May 16, 2018 12:31
--- NOTE | 2018-05-16 12:43 | Diagnostic Imaging Report ---
APPROVED REPORT CPT Code: 47591 Present Symptoms Shortness of breath Comments: Technically difficult/limited visualization due to vessel depth (mid-thigh area). BILATERAL: Imaging reveals a patent deep venous system bilaterally. There is no evidence of thrombus within the femoral, popliteal or tibial segments. The greater saphenous veins are also within normal limits. Doppler indicates normal spontaneous flow within these segments.
--- NOTE | 2018-05-16 13:16 | Consultation ---
History of Present Illness General Date patient seen: May 16, 2018 Chief Complaint: Fever Referring physician: EDGAR CARTY Reason for Consultation: PROLAPSE STOMA Present Illness HPI 52 year old male with history of chronic respiratory failure who has prior trach and is vent dependant, BPH, GERD, HTN, DM2, seizure disorder, colostomy, feeding tube, and chronic constipation who presents to ED on 05/13 with fever, tachycardia and hypotension / sepsis. During admission CT Scan performed and ostomy noted with herniation of bowel into colostomy. Surgery called to evaluate. patient seen, chart reviewed, patient examined. Allergies: Coded Allergies: AZTREONAM (Verified Allergy, Unknown, 05/13/18) Medication History Scheduled Baclofen* (Baclofen*), 10 MG GT THREE TIMES A DAY, (Reported) Bisacodyl* (Dulcolax*), 10 MG RECTAL DAILY, (Reported) Calcium Carbonate (Calcium Carbonate), 1,000 MG GT BID, (Reported) Chlorhexidine Gluconate (Peridex), 15 ML MM Q12HR, (Reported) Cholecalciferol (Vitamin D3)* (Vitamin D*), 5,000 UNIT GT ONCE A WEEK, (Reported ) Clonidine Hcl* (Catapres*), 0.1 MG GT EVERY 6 HOURS, (Reported) Cranberry (Cranberry), 400 MG GT DAILY, (Reported) Dextran 70/Hypromellose (Artificial Tears Eye Drops*), 1 DROP BOTH EYES Q4HR, ( Reported) Docusate Sodium* (Docusate Sodium*), 100 MG GT TWICE A DAY, (Reported) Famotidine (Famotidine), 20 MG GT DAILY, (Reported) Glycopyrrolate (Robinul), 2 MG GT BID, (Reported) Insulin Regular, Human* (Novolin R*), 0 SUBQ .SLIDING SCALE, (Reported) Ipratropium/Albuterol Sulfate (DuoNeb 0.5-3(2.5)mg/3ml), 3 ML HHN Q3HR, ( Reported) Levetiracetam* (Levetiracetam*), 1,000 MG GT TID, (Reported) Losartan Potassium* (Losartan Potassium*), 25 MG GT DAILY, (Reported) Multivitamin With Minerals (Multivitamins With Minerals*), 1 TAB GT DAILY, ( Reported) Nystatin* (Nystatin*), 1 APPLIC TOPIC THREE TIMES A DAY, (Reported) Polyethylene Glycol 3350* (Miralax*), 17 GM GT DAILY, (Reported) Sitagliptin* (Januvia*), 50 MG GT DAILY, (Reported) Spironolactone* (Aldactone*), 25 MG GT DAILY, (Reported) Scheduled PRN Acetaminophen 160MG/5ML* (Acetaminophen*), 20.3 ML GT Q4HR PRN for Fever/ Headache/Mild Pain, (Reported) Miscellaneous Medications Lactulose (Lactulose*), 30 ML GT, (Reported) Patient History Limited by: medical condition History Provided By: Medical Record, PMD Healthcare decision maker unk Resuscitation status Full Code Advanced Directive on File No Past Medical/Surgical History Past Medical/Surgical History: (1) Parastomal hernia (2) Diabetes mellitus (3) Vegetative state (4) Acute on chronic renal insufficiency (5) Colostomy in place (6) Acute on chronic respiratory failure (7) Severe sepsis (8) Gastrostomy tube dependent (9) Stoma malfunction Review of Systems ROS Narrative cannot obtain given medical condition Physical Exam General Appearance: no apparent distress Lines, tubes and drains: central line, trach HEENT: mucous membranes moist Neck: trach Respiratory/Chest: on vent Cardiovascular/Chest: regular rhythm Abdomen: normal bowel sounds, soft, distended, feeding tube, other - loop colostomy with parastomal hernia Extremities: other Skin Exam: warm/dry Neurologic: unresponsiveness Last 24 Hour Vital Signs Date Time Temp Pulse Resp B/P (MAP) Pulse Ox O2 Delivery O2 Flow Rate FiO2 05/16/18 12:00 98.3 72 20 117/75 (89) 100 98.3 05/16/18 12:00 Mechanical Ventilator 05/16/18 12:00 30 05/16/18 11:00 68 16 110/75 (87) 100 05/16/18 10:56 72 16 30 05/16/18 10:00 69 16 114/75 (88) 100 05/16/18 09:29 73 16 30 05/16/18 09:00 67 16 115/77 (90) 100 05/16/18 08:00 30 05/16/18 08:00 98.7 68 16 110/71 (84) 100 98.7 05/16/18 08:00 Mechanical Ventilator 05/16/18 08:00 68 05/16/18 07:00 66 16 114/73 (87) 100 05/16/18 06:33 65 16 30 05/16/18 06:00 70 16 109/71 (84) 100 05/16/18 05:05 73 17 30 05/16/18 05:00 72 16 108/72 (84) 100 05/16/18 04:00 Mechanical Ventilator 05/16/18 04:00 98.6 69 16 114/79 (91) 100 98.6 05/16/18 04:00 35 05/16/18 04:00 71 05/16/18 03:00 75 16 111/66 (81) 100 05/16/18 02:50 72 16 30 05/16/18 02:00 74 16 108/71 (83) 100 05/16/18 01:00 72 16 105/61 (76) 100 05/16/18 01:00 75 16 30 05/16/18 00:00 77 05/16/18 00:00 35 05/16/18 00:00 80 16 116/74 (88) 100 05/16/18 00:00 Mechanical Ventilator 05/15/18 23:00 80 16 110/70 (83) 100 05/15/18 22:56 76 16 30 05/15/18 22:00 80 16 112/74 (87) 100 05/15/18 21:00 80 16 104/70 (81) 100 05/15/18 20:55 76 18 30 05/15/18 20:00 80 05/15/18 20:00 35 05/15/18 20:00 98.8 80 16 105/70 (82) 100 98.8 05/15/18 20:00 Mechanical Ventilator 05/15/18 19:02 86 16 30 05/15/18 19:00 80 16 100/65 (77) 100 05/15/18 18:00 80 16 103/64 (77) 100 05/15/18 17:05 83 16 30 05/15/18 17:00 80 16 107/70 (82) 100 05/15/18 16:00 98.8 85 16 97/65 (76) 100 98.8 05/15/18 16:00 Mechanical Ventilator 05/15/18 16:00 35 7/25/18 16:00 83 05/15/18 15:06 86 16 30 05/15/18 15:00 84 16 104/68 (80) 100 05/15/18 14:00 88 16 106/74 (85) 100 05/15/18 13:17 90 16 30 Intake and Output 05/15/18 05/16/18 19:00 07:00 Intake Total 2112.976 ml 1812.5 ml Output Total 1040 ml 1470 ml Balance 1072.976 ml 342.5 ml IV Total 1472.976 ml 1037.5 ml Tube Feeding 440 ml 675 ml Other 200 ml 100 ml Output Urine Total 740 ml 720 ml Stool Total 300 ml 750 ml Laboratory Tests Test 05/15/18 23:17 05/16/18 00:30 05/16/18 04:00 Vancomycin Level Trough 23.4 ug/mL (5.0-12.0) H Stool Occult Blood Negative (NEGATIVE) White Blood Count 7.0 K/UL (4.8-10.8) Red Blood Count 3.81 M/UL (4.70-6.10) L Hemoglobin 10.4 G/DL (14.2-18.0) L Hematocrit 33.1 % (42.0-52.0) L Mean Corpuscular Volume 87 FL (80-99) Mean Corpuscular Hemoglobin 27.3 PG (27.0-31.0) Mean Corpuscular Hemoglobin Concent 31.5 G/DL (32.0-36.0) L Red Cell Distribution Width 14.3 % (11.6-14.8) Platelet Count 181 K/UL (150-450) Mean Platelet Volume 9.2 FL (6.5-10.1) Neutrophils (%) (Auto) 63.2 % (45.0-75.0) Lymphocytes (%) (Auto) 17.5 % (20.0-45.0) L Monocytes (%) (Auto) 11.6 % (1.0-10.0) H Eosinophils (%) (Auto) 7.4 % (0.0-3.0) H Basophils (%) (Auto) 0.4 % (0.0-2.0) Sodium Level 141 MMOL/L (136-145) Potassium Level 3.4 MMOL/L (3.5-5.1) L Chloride Level 109 MMOL/L (98-107) H Carbon Dioxide Level 22 MMOL/L (21-32) Anion Gap 10 mmol/L (5-15) Blood Urea Nitrogen 11 mg/dL (7-18) Creatinine 1.1 MG/DL (0.55-1.30) Estimat Glomerular Filtration Rate > 60 mL/min (>60) Glucose Level 190 MG/DL (74-106) H Calcium Level 9.3 MG/DL (8.5-10.1) Phosphorus Level 2.3 MG/DL (2.5-4.9) L Magnesium Level 1.8 MG/DL (1.8-2.4) Total Bilirubin 0.4 MG/DL (0.2-1.0) Aspartate Amino Transf (AST/SGOT) 16 U/L (15-37) Alanine Aminotransferase (ALT/SGPT) 33 U/L (12-78) Alkaline Phosphatase 88 U/L (46-116) Total Protein 7.7 G/DL (6.4-8.2) Albumin 2.9 G/DL (3.4-5.0) L Globulin 4.8 g/dL Albumin/Globulin Ratio 0.6 (1.0-2.7) L Height (Feet): 6 Weight (Pounds): 207 Medications Current Medications Medications (Trade) Dose Ordered Sig/Va Route PRN Reason Start Time Stop Time Status Last Admin Dose Admin Acetaminophen (Tylenol) 650 mg Q4H PRN ORAL FEVER 05/16/18 14:00 06/13/18 09:59 Albuterol/ Ipratropium (Albuterol/ Ipratropium) 3 ml Q4H PRN HHN Shortness of Breath 05/16/18 14:00 05/19/18 09:59 Baclofen (Lioresal) 10 mg THREE TIMES A DAY GT 05/16/18 13:00 06/13/18 12:59 Chlorhexidine Gluconate (Rebecca-Hex 2%) 1 applic DAILY@1999 TOPIC 05/16/18 20:00 06/13/18 19:59 Dextrose (Dextrose 50%) 25 ml STAT PRN IV Hypoglycemia 05/17/18 08:45 06/14/18 08:44 Dextrose (Dextrose 50%) 50 ml STAT PRN IV Hypoglycemia 05/17/18 08:45 06/14/18 08:44 Heparin Sodium (Porcine) (Heparin 5000 units/ml) 5,000 units EVERY 12 HOURS SUBQ 05/16/18 21:00 06/13/18 20:59 Insulin Aspart (NovoLOG) Q6HR SUBQ 05/16/18 18:00 06/14/18 11:29 Iron Sucrose 100 mg/Sodium Chloride 60 ml @ 240 mls/hr BEDTIME IV 05/16/18 21:00 05/20/18 21:14 Lansoprazole (Prevacid) 30 mg DAILY GT 05/17/18 09:00 06/15/18 08:59 Levetiracetam (Keppra) 1,000 mg Q8HR GT 05/16/18 14:00 06/13/18 12:59 Lorazepam (Ativan 2mg/ml 1ml) 2 mg Q2H PRN IV For Anxiety 05/16/18 12:00 05/21/18 09:59 Morphine Sulfate (Morphine Sulfate) 4 mg Q4H PRN IVP Severe Pain (Pain Scale 7-10) 05/16/18 14:00 05/21/18 09:59 Ondansetron HCl (Zofran) 4 mg Q6H PRN IVP Nausea & Vomiting 05/16/18 16:00 06/13/18 09:59 Piperacillin Sod/ Tazobactam Sod 3.375 gm/Sodium Chloride 110 ml @ 27.5 mls/hr EVERY 8 HOURS IVPB 05/16/18 14:00 05/20/18 11:29 Polyethylene Glycol (Miralax) 17 gm BEDTIME ORAL 05/16/18 21:00 06/14/18 20:59 Vancomycin HCl 1 gm/Dextrose 275 ml @ 183.708 mls/hr Q12HR IVPB 05/16/18 21:00 05/21/18 08:59 Assessment/Plan Problem List: (1) Stoma malfunction SNOMED: 550311724 (2) Parastomal hernia Assessment & Plan: 52M with history of prior loop colostomy. proximal loop stable. distal with impacted contrast stool but stable. parastomal hernia with small bowel contents in hernia. no obstruction noted at this time. larger appearance of patients stoma is because location and use of loop colostomy in hepatic flexure. it is otherwise viable and stable. Would Highly recommend fixing parastomal hernia but can be done electively. if obstructs will need urgent repair. currently non obstructive will monitor and follow with recs. bowel care thank you for this consultation. ICD Codes: K43.5 - Parastomal hernia without obstruction or gangrene SNOMED: 048622465 Qualifiers: Qualified Codes: K43.5 - Parastomal hernia without obstruction or gangrene (3) Severe sepsis ICD Codes: A41.9 - Sepsis, unspecified organism; R65.20 - Severe sepsis without septic shock SNOMED: 35248573 Status: unchanged Tino Mancilla May 16, 2018 13:16
[2018-05-16] MEDS ORDERED: Albuterol/Ipratropium 3ml neb HHN PRN (14:00)
[2018-05-16] MEDS ORDERED: Morphine Sulfate 4mg/ml Inj (IV USE ONLY) IVP PRN (14:00)
--- NOTE | 2018-05-16 14:16 | GI Progress Note ---
Assessment/Plan Problems: (1) Parastomal hernia ICD Codes: K43.5 - Parastomal hernia without obstruction or gangrene SNOMED: 150583962 Qualifiers: Qualified Codes: K43.5 - Parastomal hernia without obstruction or gangrene (2) Stoma malfunction SNOMED: 231818087 (3) Colostomy in place ICD Codes: Z93.3 - Colostomy status SNOMED: 832475169, 149616152 (4) Vegetative state ICD Codes: R40.3 - Persistent vegetative state SNOMED: 43134519 (5) Diabetes mellitus ICD Codes: E11.9 - Type 2 diabetes mellitus without complications SNOMED: 12549373 (6) Acute on chronic respiratory failure ICD Codes: J96.20 - Acute and chronic respiratory failure, unspecified whether with hypoxia or hypercapnia SNOMED: 17873769 (7) Severe sepsis ICD Codes: A41.9 - Sepsis, unspecified organism; R65.20 - Severe sepsis without septic shock SNOMED: 92649879 Status: stable Status Narrative Discussed with Dr. Prater. Assessment/Plan prolapse stoma assessed >> no s/sx of infection. no obstruction. anemia work up reviewed >> iron deficiency G tube dependent hepatitis panel negative OB negative supportive care monitor H&H, prn transfusions venofer ppi GTFs per RD, adv to goal GT site care daily/prn abx bowel regime fu labs The patient was seen and examined at bedside and all new and available data was reviewed in the patients chart. I agree with the above findings, impression and plan. (Patient seen earlier today. Signature stamp does not reflect patient encounter time.). - Dae Prater MD Subjective Subjective limited Objective Last 24 Hour Vital Signs Date Time Temp Pulse Resp B/P (MAP) Pulse Ox O2 Delivery O2 Flow Rate FiO2 05/16/18 13:05 74 16 30 05/16/18 12:00 98.3 72 20 117/75 (89) 100 98.3 05/16/18 12:00 Mechanical Ventilator 05/16/18 12:00 30 05/16/18 12:00 74 05/16/18 11:00 68 16 110/75 (87) 100 05/16/18 10:56 72 16 30 05/16/18 10:00 69 16 114/75 (88) 100 05/16/18 09:29 73 16 30 7/26/18 09:00 67 16 115/77 (90) 100 05/16/18 08:00 30 05/16/18 08:00 98.7 68 16 110/71 (84) 100 98.7 05/16/18 08:00 Mechanical Ventilator 05/16/18 08:00 68 05/16/18 07:00 66 16 114/73 (87) 100 05/16/18 06:33 65 16 30 05/16/18 06:00 70 16 109/71 (84) 100 05/16/18 05:05 73 17 30 05/16/18 05:00 72 16 108/72 (84) 100 05/16/18 04:00 Mechanical Ventilator 05/16/18 04:00 98.6 69 16 114/79 (91) 100 98.6 05/16/18 04:00 35 05/16/18 04:00 71 05/16/18 03:00 75 16 111/66 (81) 100 05/16/18 02:50 72 16 30 05/16/18 02:00 74 16 108/71 (83) 100 05/16/18 01:00 72 16 105/61 (76) 100 05/16/18 01:00 75 16 30 05/16/18 00:00 77 05/16/18 00:00 35 05/16/18 00:00 80 16 116/74 (88) 100 05/16/18 00:00 Mechanical Ventilator 05/15/18 23:00 80 16 110/70 (83) 100 05/15/18 22:56 76 16 30 05/15/18 22:00 80 16 112/74 (87) 100 05/15/18 21:00 80 16 104/70 (81) 100 05/15/18 20:55 76 18 30 05/15/18 20:00 80 05/15/18 20:00 35 05/15/18 20:00 98.8 80 16 105/70 (82) 100 98.8 05/15/18 20:00 Mechanical Ventilator 05/15/18 19:02 86 16 30 05/15/18 19:00 80 16 100/65 (77) 100 05/15/18 18:00 80 16 103/64 (77) 100 05/15/18 17:05 83 16 30 05/15/18 17:00 80 16 107/70 (82) 100 05/15/18 16:00 98.8 85 16 97/65 (76) 100 98.8 05/15/18 16:00 Mechanical Ventilator 05/15/18 16:00 35 05/15/18 16:00 83 05/15/18 15:06 86 16 30 05/15/18 15:00 84 16 104/68 (80) 100 Intake and Output 05/15/18 05/16/18 19:00 07:00 Intake Total 2112.976 ml 1812.5 ml Output Total 1040 ml 1470 ml Balance 1072.976 ml 342.5 ml IV Total 1472.976 ml 1037.5 ml Tube Feeding 440 ml 675 ml Other 200 ml 100 ml Output Urine Total 740 ml 720 ml Stool Total 300 ml 750 ml Laboratory Tests Test 05/15/18 23:17 05/16/18 00:30 05/16/18 04:00 Vancomycin Level Trough 23.4 ug/mL (5.0-12.0) H Stool Occult Blood Negative (NEGATIVE) White Blood Count 7.0 K/UL (4.8-10.8) Red Blood Count 3.81 M/UL (4.70-6.10) L Hemoglobin 10.4 G/DL (14.2-18.0) L Hematocrit 33.1 % (42.0-52.0) L Mean Corpuscular Volume 87 FL (80-99) Mean Corpuscular Hemoglobin 27.3 PG (27.0-31.0) Mean Corpuscular Hemoglobin Concent 31.5 G/DL (32.0-36.0) L Red Cell Distribution Width 14.3 % (11.6-14.8) Platelet Count 181 K/UL (150-450) Mean Platelet Volume 9.2 FL (6.5-10.1) Neutrophils (%) (Auto) 63.2 % (45.0-75.0) Lymphocytes (%) (Auto) 17.5 % (20.0-45.0) L Monocytes (%) (Auto) 11.6 % (1.0-10.0) H Eosinophils (%) (Auto) 7.4 % (0.0-3.0) H Basophils (%) (Auto) 0.4 % (0.0-2.0) Sodium Level 141 MMOL/L (136-145) Potassium Level 3.4 MMOL/L (3.5-5.1) L Chloride Level 109 MMOL/L (98-107) H Carbon Dioxide Level 22 MMOL/L (21-32) Anion Gap 10 mmol/L (5-15) Blood Urea Nitrogen 11 mg/dL (7-18) Creatinine 1.1 MG/DL (0.55-1.30) Estimat Glomerular Filtration Rate > 60 mL/min (>60) Glucose Level 190 MG/DL (74-106) H Calcium Level 9.3 MG/DL (8.5-10.1) Phosphorus Level 2.3 MG/DL (2.5-4.9) L Magnesium Level 1.8 MG/DL (1.8-2.4) Total Bilirubin 0.4 MG/DL (0.2-1.0) Aspartate Amino Transf (AST/SGOT) 16 U/L (15-37) Alanine Aminotransferase (ALT/SGPT) 33 U/L (12-78) Alkaline Phosphatase 88 U/L (46-116) Total Protein 7.7 G/DL (6.4-8.2) Albumin 2.9 G/DL (3.4-5.0) L Globulin 4.8 g/dL Albumin/Globulin Ratio 0.6 (1.0-2.7) L Height (Feet): 6 Weight (Pounds): 207 General Appearance: no apparent distress Cardiovascular: normal rate Respiratory/Chest: normal breath sounds, no respiratory distress Abdominal Exam: normal bowel sounds, non tender, soft, GT site - c/d/i, other - prolapse stoma Extremities: non-tender Boyd Emmanuel [employer] May 16, 2018 14:16
[2018-05-16] MEDS: Piperacillin/Tazobactam 3.375 GM in NS 110 ML IVPB SCH ×2 (14:58→22:04)
[2018-05-16] MEDS ORDERED: NovoLOG Insulin Flexpen SUBQ SCH (16:30)
--- NOTE | 2018-05-16 16:52 | Infectious Diseases Prog Note ---
Assessment/Plan Assessment/Plan Abx: Zosyn 05/14- IV Vanco 05/14- Assessment: Sepsis, improving- 2ry to UTI and Bacteremia- ?pyelo. Possible PNA -u/a wbc 40-60, nit neg, leuk +2; ucx >100k GNR -BCX 01/23 GNR #1, #2 -CXR: Cardiomegaly. Mild interstitial congestion. Suspect small bilateral pleural effusions -CT abd/p: Right lower quadrant double barrel colostomy, as described. Small peristomal hernia contains bowel loops without evidence of obstruction or strangulation. Left renal staghorn calculus. Bilateral intrarenal calyceal calculi. Borderline hydronephrosis on the right without evidence of downstream obstructive lesion. May indicate mild ureteral pelvic junction obstruction. Somewhat atrophic left kidney. Inspissated contrast ball within the distal sigmoid colon. Gastrostomy in good position. Nonspecific bilateral perinephric fat stranding, could indicate pyelonephritis or could be chronic. Newberry catheter in place. Apparent bladder wall thickening, possibly an artifact of under distention but cystitis is not excludable, particularly in view of mild perivesical fat stranding. Bilateral pulmonary parenchymal atelectasis and consolidation Fever/Leukocytosis; improving DIVYA, improving Lactic acidosis, resolved chronic resp failure trach/vent dependant BPH GERD HTN DM2 seizure disorder colostomy s/p GT constipation VRE and MRSA colonized Plan: -Cotninue empiric IV Vancomycin #3 pending sp cx -Continue empiric Zosyn #3 pending ID GNR Bcx and ucx -if decompensating, switch Zosyn to Meropenem. -Repeat 2 sets of Bcx -f/u cx -Monitor CBC/CMP, temperatures -CXR am Thank you for this consultation. Will continue to follow along with you. Discussed with RN. Subjective Allergies: Coded Allergies: AZTREONAM (Verified Allergy, Unknown, 05/13/18) Subjective afebrile in >24hrs leukocytosis resolved on ANDREW Objective Vital Signs Last 24 Hour Vital Signs Date Time Temp Pulse Resp B/P (MAP) Pulse Ox O2 Delivery O2 Flow Rate FiO2 05/16/18 16:00 Mechanical Ventilator 05/16/18 16:00 30 05/16/18 15:30 77 16 30 05/16/18 13:05 74 16 30 05/16/18 12:00 98.3 72 20 117/75 (89) 100 98.3 05/16/18 12:00 Mechanical Ventilator 05/16/18 12:00 30 05/16/18 12:00 74 05/16/18 11:00 68 16 110/75 (87) 100 05/16/18 10:56 72 16 30 05/16/18 10:00 69 16 114/75 (88) 100 05/16/18 09:29 73 16 30 05/16/18 09:00 67 16 115/77 (90) 100 05/16/18 08:00 30 05/16/18 08:00 98.7 68 16 110/71 (84) 100 98.7 05/16/18 08:00 Mechanical Ventilator 05/16/18 08:00 68 05/16/18 07:00 66 16 114/73 (87) 100 05/16/18 06:33 65 16 30 05/16/18 06:00 70 16 109/71 (84) 100 05/16/18 05:05 73 17 30 05/16/18 05:00 72 16 108/72 (84) 100 05/16/18 04:00 Mechanical Ventilator 05/16/18 04:00 98.6 69 16 114/79 (91) 100 98.6 05/16/18 04:00 35 05/16/18 04:00 71 05/16/18 03:00 75 16 111/66 (81) 100 05/16/18 02:50 72 16 30 05/16/18 02:00 74 16 108/71 (83) 100 05/16/18 01:00 72 16 105/61 (76) 100 05/16/18 01:00 75 16 30 05/16/18 00:00 77 05/16/18 00:00 35 05/16/18 00:00 80 16 116/74 (88) 100 05/16/18 00:00 Mechanical Ventilator 05/15/18 23:00 80 16 110/70 (83) 100 05/15/18 22:56 76 16 30 05/15/18 22:00 80 16 112/74 (87) 100 05/15/18 21:00 80 16 104/70 (81) 100 05/15/18 20:55 76 18 30 05/15/18 20:00 80 05/15/18 20:00 35 05/15/18 20:00 98.8 80 16 105/70 (82) 100 98.8 05/15/18 20:00 Mechanical Ventilator 05/15/18 19:02 86 16 30 05/15/18 19:00 80 16 100/65 (77) 100 05/15/18 18:00 80 16 103/64 (77) 100 05/15/18 17:05 83 16 30 05/15/18 17:00 80 16 107/70 (82) 100 Height (Feet): 6 Weight (Pounds): 207 Objective GENERAL: The patient is awake, in no overt distress. HEENT: Extraocular muscles intact. No lymphadenopathy noted. Tracheostomy noted. CARDIOVASCULAR: S1 and S2. Tachycardic. No rubs or gallops. PULMONARY: Mild diffuse expiratory rhonchi with basilar rales. ABDOMEN: Obese and nondistended. The G-tube and stoma noted. EXTREMITIES: No edema. Fair pedal pulses. Microbiology Date/Time Source Procedure Growth Status 05/14/18 00:05 Blood Blood Culture - Preliminary Gram Negative Bacillus 1 Gram Negative Bacillus 2 Resulted 05/14/18 00:00 Blood Blood Culture - Preliminary Gram Negative Bacillus 1 Gram Negative Bacillus 2 Resulted 05/14/18 00:05 Nasal Nares MRSA Culture - Final Staphylococcus Aureus - Mrsa Complete 05/14/18 01:43 Urine,Clean Catch Urine Culture - Preliminary Gram Negative Bacillus 1 Resulted 05/14/18 00:05 Rectum VRE Culture - Final Enterococcus Faecalis - Vre Complete Laboratory Tests Test 05/15/18 23:17 05/16/18 00:30 05/16/18 04:00 Vancomycin Level Trough 23.4 ug/mL (5.0-12.0) H Stool Occult Blood Negative (NEGATIVE) White Blood Count 7.0 K/UL (4.8-10.8) Red Blood Count 3.81 M/UL (4.70-6.10) L Hemoglobin 10.4 G/DL (14.2-18.0) L Hematocrit 33.1 % (42.0-52.0) L Mean Corpuscular Volume 87 FL (80-99) Mean Corpuscular Hemoglobin 27.3 PG (27.0-31.0) Mean Corpuscular Hemoglobin Concent 31.5 G/DL (32.0-36.0) L Red Cell Distribution Width 14.3 % (11.6-14.8) Platelet Count 181 K/UL (150-450) Mean Platelet Volume 9.2 FL (6.5-10.1) Neutrophils (%) (Auto) 63.2 % (45.0-75.0) Lymphocytes (%) (Auto) 17.5 % (20.0-45.0) L Monocytes (%) (Auto) 11.6 % (1.0-10.0) H Eosinophils (%) (Auto) 7.4 % (0.0-3.0) H Basophils (%) (Auto) 0.4 % (0.0-2.0) Sodium Level 141 MMOL/L (136-145) Potassium Level 3.4 MMOL/L (3.5-5.1) L Chloride Level 109 MMOL/L (98-107) H Carbon Dioxide Level 22 MMOL/L (21-32) Anion Gap 10 mmol/L (5-15) Blood Urea Nitrogen 11 mg/dL (7-18) Creatinine 1.1 MG/DL (0.55-1.30) Estimat Glomerular Filtration Rate > 60 mL/min (>60) Glucose Level 190 MG/DL (74-106) H Calcium Level 9.3 MG/DL (8.5-10.1) Phosphorus Level 2.3 MG/DL (2.5-4.9) L Magnesium Level 1.8 MG/DL (1.8-2.4) Total Bilirubin 0.4 MG/DL (0.2-1.0) Aspartate Amino Transf (AST/SGOT) 16 U/L (15-37) Alanine Aminotransferase (ALT/SGPT) 33 U/L (12-78) Alkaline Phosphatase 88 U/L (46-116) Total Protein 7.7 G/DL (6.4-8.2) Albumin 2.9 G/DL (3.4-5.0) L Globulin 4.8 g/dL Albumin/Globulin Ratio 0.6 (1.0-2.7) L Current Medications Medications (Trade) Dose Ordered Sig/Va Route PRN Reason Start Time Stop Time Status Last Admin Dose Admin Acetaminophen (Tylenol) 650 mg Q4H PRN ORAL FEVER 05/16/18 14:00 06/13/18 09:59 Albuterol/ Ipratropium (Albuterol/ Ipratropium) 3 ml Q4H PRN HHN Shortness of Breath 05/16/18 14:00 05/19/18 09:59 Baclofen (Lioresal) 10 mg THREE TIMES A DAY GT 05/16/18 13:00 06/13/18 12:59 05/16/18 14:27 Chlorhexidine Gluconate (Rebecca-Hex 2%) 1 applic DAILY@2000 TOPIC 05/16/18 20:00 06/13/18 19:59 Dextrose (Dextrose 50%) 25 ml STAT PRN IV Hypoglycemia 05/17/18 08:45 06/14/18 08:44 Dextrose (Dextrose 50%) 50 ml STAT PRN IV Hypoglycemia 05/17/18 08:45 06/14/18 08:44 Docusate Sodium (Colace) 100 mg THREE TIMES A DAY GT 05/16/18 18:00 06/15/18 17:59 Heparin Sodium (Porcine) (Heparin 5000 units/ml) 5,000 units EVERY 12 HOURS SUBQ 05/16/18 21:00 06/13/18 20:59 Insulin Aspart (NovoLOG) Q6HR SUBQ 05/16/18 18:00 06/14/18 11:29 Iron Sucrose 100 mg/Sodium Chloride 60 ml @ 240 mls/hr BEDTIME IV 05/16/18 21:00 05/20/18 21:14 Lansoprazole (Prevacid) 30 mg DAILY GT 05/17/18 09:00 06/15/18 08:59 Levetiracetam (Keppra) 1,000 mg Q8HR GT 05/16/18 14:00 06/13/18 12:59 05/16/18 14:27 Lorazepam (Ativan 2mg/ml 1ml) 2 mg Q2H PRN IV For Anxiety 05/16/18 12:00 05/21/18 09:59 Morphine Sulfate (Morphine Sulfate) 4 mg Q4H PRN IVP Severe Pain (Pain Scale 7-10) 05/16/18 14:00 05/21/18 09:59 Ondansetron HCl (Zofran) 4 mg Q6H PRN IVP Nausea & Vomiting 05/16/18 16:00 06/13/18 09:59 Piperacillin Sod/ Tazobactam Sod 3.375 gm/Sodium Chloride 110 ml @ 27.5 mls/hr EVERY 8 HOURS IVPB 05/16/18 14:00 05/20/18 11:29 05/16/18 14:58 Polyethylene Glycol (Miralax) 17 gm BEDTIME ORAL 05/16/18 21:00 06/14/18 20:59 Vancomycin HCl 1 gm/Dextrose 275 ml @ 183.708 mls/hr Q12HR IVPB 05/16/18 21:00 05/21/18 08:59 Maribel Barrera M.D. May 16, 2018 16:52
[2018-05-16] MEDS ORDERED: Docusate 100mg/10ml Liq GT SCH (18:00)
[2018-05-16] MEDS ORDERED: Iron Sucrose 100 MG in NS 55 ML IV SCH (21:00)
[2018-05-16] MEDS: Miralax 17gm pkt ORAL SCH (21:10)
[2018-05-16] MEDS: Dyna-Hex 2% Top Sol 2oz TOPIC SCH (21:10)
[2018-05-16] MEDS: Vancomycin 1 GM in D5W 275 ML IVPB SCH (21:15)
[2018-05-16] MEDS: Iron Sucrose 100 MG in NS 55 ML IV SCH (22:01)
[2018-05-17] VITALS: BP 134/79
[2018-05-17 04:00] VITALS: BP 124/73
[2018-05-17 04:28] LABS: EOSINOPHILS % (AUTO) 7.8 % (0.0-3.0); HEMATOCRIT 32.8 % (42.0-52.0); HEMOGLOBIN 10.5 G/DL (14.2-18.0); LYMPHOCYTES % (AUTO) 17.5 % (20.0-45.0); MEAN CORPUSCULAR VOLUME 86 FL (80-99); MONOCYTES % (AUTO) 8.3 % (1.0-10.0); NEUTROPHILS % (AUTO) 65.3 % (45.0-75.0); PLATELET COUNT 166 K/UL (150-450); RED BLOOD COUNT 3.83 M/UL (4.70-6.10); RED CELL DISTRIBUTION WIDTH 13.9 % (11.6-14.8); WHITE BLOOD COUNT 7.4 K/UL (4.8-10.8)
[2018-05-17 04:37] LABS: ALANINE AMINOTRANSFERASE 29 U/L (12-78); ALBUMIN 2.8 G/DL (3.4-5.0); ALBUMIN/GLOBULIN RATIO 0.6 (1.0-2.7); ALKALINE PHOSPHATASE 85 U/L (46-116); ANION GAP 11 mmol/L (5-15); ASPARTATE AMINO TRANSFERASE 14 U/L (15-37); BILIRUBIN,TOTAL 0.3 MG/DL (0.2-1.0); BLOOD UREA NITROGEN 8 mg/dL (7-18); CALCIUM 9.9 MG/DL (8.5-10.1); CARBON DIOXIDE 21 MMOL/L (21-32); CHLORIDE 107 MMOL/L (98-107); CREATININE 1.1 MG/DL (0.55-1.30); POTASSIUM 3.5 MMOL/L (3.5-5.1); SODIUM 139 MMOL/L (136-145)
[2018-05-17 04:38] LABS: PHOSPHORUS 2.7 MG/DL (2.5-4.9)
[2018-05-17] MEDS: NovoLOG Insulin Flexpen SUBQ SCH ×4 (05:39→23:58)
[2018-05-17] MEDS: Piperacillin/Tazobactam 3.375 GM in NS 110 ML IVPB SCH (05:40)
[2018-05-17] MEDS: levETIRAcetam 500mg/5ml Liquid GT SCH ×3 (05:41→21:12)
[2018-05-17 08:00] VITALS: BP 115/67
[2018-05-17] MEDS: Vancomycin 1 GM in D5W 275 ML IVPB SCH (08:48)
[2018-05-17] MEDS: Heparin 5000 units/ml inj SUBQ SCH ×2 (08:55→21:17)
--- NOTE | 2018-05-17 09:18 | Nephrology Progress Note ---
Assessment/Plan Assessment/Plan 1. DIVYA- due to multifactorial ATN (sepsis/hypotension) - resolved. 2. Septic Shock- Abx. Resolving. Stable 3. Chronic Resp FL- trached on vent 4. Hypok/Phos- corrected - replace PRN Subjective Date patient seen: May 17, 2018 Time patient seen: 09:16 ROS Limited/Unobtainable: Yes Allergies: Coded Allergies: AZTREONAM (Verified Allergy, Unknown, 05/13/18) Subjective Patient remains trached/vent. In no acute distress Objective Last 24 Hour Vital Signs Date Time Temp Pulse Resp B/P (MAP) Pulse Ox O2 Delivery O2 Flow Rate FiO2 05/17/18 08:00 30 05/17/18 08:00 97.0 62 16 115/67 (83) 98 97.0 05/17/18 05:05 73 17 30 05/17/18 04:00 Mechanical Ventilator 05/17/18 04:00 30 05/17/18 04:00 97.7 63 16 124/73 (90) 100 97.7 05/17/18 04:00 67 05/17/18 03:26 75 18 30 05/17/18 01:15 68 17 30 05/17/18 00:00 Mechanical Ventilator 05/17/18 00:00 61 05/17/18 00:00 98.2 68 16 134/79 (97) 100 98.2 05/16/18 23:27 65 16 30 05/16/18 21:01 62 17 30 05/16/18 20:00 30 05/16/18 20:00 97.7 66 20 129/76 (93) 99 97.7 05/16/18 20:00 Mechanical Ventilator 05/16/18 20:00 66 05/16/18 19:21 79 16 30 05/16/18 17:02 76 16 30 05/16/18 16:00 Mechanical Ventilator 05/16/18 16:00 97.7 67 17 119/77 (91) 100 97.7 05/16/18 16:00 30 05/16/18 16:00 66 05/16/18 15:30 77 16 30 05/16/18 13:05 74 16 30 05/16/18 12:00 98.3 72 20 117/75 (89) 100 98.3 05/16/18 12:00 Mechanical Ventilator 05/16/18 12:00 30 05/16/18 12:00 74 05/16/18 11:00 68 16 110/75 (87) 100 05/16/18 10:56 72 16 30 05/16/18 10:00 69 16 114/75 (88) 100 05/16/18 09:29 73 16 30 Intake and Output 05/16/18 05/17/18 19:00 07:00 Intake Total 1275.932 ml 1332.500 ml Output Total 825 ml 1075 ml Balance 450.932 ml 257.500 ml Free Water 60 ml IV Total 435.932 ml 472.500 ml Tube Feeding 780 ml 780 ml Other 80 ml Output Urine Total 725 ml 650 ml Stool Total 100 ml 425 ml # Bowel Movements 100 Laboratory Tests 05/17/18 04:00: White Blood Count 7.4, Red Blood Count 3.83L, Hemoglobin 10.5L, Hematocrit 32.8L , Mean Corpuscular Volume 86, Mean Corpuscular Hemoglobin 27.4, Mean Corpuscular Hemoglobin Concent 32.0, Red Cell Distribution Width 13.9, Platelet Count 166, Mean Platelet Volume 9.2, Neutrophils (%) (Auto) 65.3, Lymphocytes (% ) (Auto) 17.5L, Monocytes (%) (Auto) 8.3, Eosinophils (%) (Auto) 7.8H, Basophils (%) (Auto) 1.0, Sodium Level 139, Potassium Level 3.5, Chloride Level 107, Carbon Dioxide Level 21, Anion Gap 11, Blood Urea Nitrogen 8, Creatinine 1.1, Estimat Glomerular Filtration Rate > 60, Glucose Level 184H, Calcium Level 9.9, Phosphorus Level 2.7, Magnesium Level 1.9, Total Bilirubin 0.3, Aspartate Amino Transf (AST/SGOT) 14L, Alanine Aminotransferase (ALT/SGPT) 29, Alkaline Phosphatase 85, Total Protein 7.5, Albumin 2.8L, Globulin 4.7, Albumin/Globulin Ratio 0.6L Height (Feet): 6 Weight (Pounds): 209 General Appearance: WD/WN, no apparent distress EENT: PERRL/EOMI Neck: non-tender, normal alignment Cardiovascular: normal peripheral pulses, normal rate Respiratory/Chest: chest wall non-tender, rhonchi - bilaterally Abdomen: normal bowel sounds, non tender, soft Edema: no edema noted Arm (L), no edema noted Arm (R), no edema noted Leg (L), no edema noted Leg (R), no edema noted Pedal (L), no edema noted Pedal (R), no edema noted Generalized Mir Gann M.D. May 17, 2018 09:18
--- NOTE | 2018-05-17 09:55 | Diagnostic Imaging Report ---
Indication: Shortness of breath Technique: One view of the chest Comparison: 05/14/2018 Findings: Interim placement left arm PICC. There is interim improvement of previously demonstrated bilateral interstitial congestion. Some disease persists, however. There is right infrahilar atelectasis. There is increasing opacity in the left lung base, suggesting increasing left pleural fluid. Tracheostomy remains Impression: Increased left pleural effusion, over 3 days Overall decreased interstitial congestion Right infrahilar atelectasis
--- NOTE | 2018-05-17 10:17 | Pulmonolgy Critical Care Note ---
Critical Care - Asmt/Plan Problems: (1) Acute on chronic respiratory failure (2) Acute on chronic renal insufficiency (3) Severe sepsis (4) Vegetative state (5) Colostomy in place (6) Diabetes mellitus Respiratory: monitor respiratory rate, adjust FIO2, CXR Cardiac: continue to monitor HR/BP Renal: F/U I&O Infectious Disease: check cultures Gastrointestinal: continue feedings/current rate Endocrine: monitor blood sugar, check TSH, continue sliding scale insulin Hematologic: monitor H/H, transfuse if hgb<8.5 Neurologic: PRN Morphine, keep patient comfortable Affect: PRN ativan Notes Reviewed: school counsellor, renal Discussed with: nurses, consultants, hospice case managersales marketing manager - Objective Last 24 Hour Vital Signs Date Time Temp Pulse Resp B/P (MAP) Pulse Ox O2 Delivery O2 Flow Rate FiO2 05/17/18 08:00 30 05/17/18 08:00 Mechanical Ventilator 05/17/18 08:00 97.0 62 16 115/67 (83) 98 97.0 05/17/18 05:05 73 17 30 05/17/18 04:00 Mechanical Ventilator 05/17/18 04:00 30 05/17/18 04:00 97.7 63 16 124/73 (90) 100 97.7 05/17/18 04:00 67 05/17/18 03:26 75 18 30 05/17/18 01:15 68 17 30 05/17/18 00:00 Mechanical Ventilator 05/17/18 00:00 61 05/17/18 00:00 98.2 68 16 134/79 (97) 100 98.2 05/16/18 23:27 65 16 30 05/16/18 21:01 62 17 30 05/16/18 20:00 30 05/16/18 20:00 97.7 66 20 129/76 (93) 99 97.7 05/16/18 20:00 Mechanical Ventilator 05/16/18 20:00 66 05/16/18 19:21 79 16 30 05/16/18 17:02 76 16 30 05/16/18 16:00 Mechanical Ventilator 05/16/18 16:00 97.7 67 17 119/77 (91) 100 97.7 05/16/18 16:00 30 05/16/18 16:00 66 05/16/18 15:30 77 16 30 05/16/18 13:05 74 16 30 05/16/18 12:00 98.3 72 20 117/75 (89) 100 98.3 05/16/18 12:00 Mechanical Ventilator 05/16/18 12:00 30 05/16/18 12:00 74 05/16/18 11:00 68 16 110/75 (87) 100 05/16/18 10:56 72 16 30 Status: sedated Condition: critical HEENT: atraumatic Lungs: clear Heart: HR/BP stable, regular Abdomen: non-tender, feeding tube Extremities: edema Accucheck: 185 Critical Care - Subjective ROS Limited/Unobtainable: Yes Condition: critical EKG Rhythm: Sinus Rhythm FI02: 30 Vent Support Breath Rate: 16 Vent Support Mode: AC Vent Tidal Volume: 600 Sputum Amount: Moderate PEEP: 5.0 PIP: 34 Tube Feeding Amount: 65 I&O: Intake and Output 05/16/18 05/17/18 19:00 07:00 Intake Total 1275.932 ml 1332.500 ml Output Total 825 ml 1075 ml Balance 450.932 ml 257.500 ml Free Water 60 ml IV Total 435.932 ml 472.500 ml Tube Feeding 780 ml 780 ml Other 80 ml Output Urine Total 725 ml 650 ml Stool Total 100 ml 425 ml # Bowel Movements 100 Labs: Laboratory Tests Test 05/17/18 04:00 White Blood Count 7.4 K/UL (4.8-10.8) Red Blood Count 3.83 M/UL (4.70-6.10) L Hemoglobin 10.5 G/DL (14.2-18.0) L Hematocrit 32.8 % (42.0-52.0) L Mean Corpuscular Volume 86 FL (80-99) Mean Corpuscular Hemoglobin 27.4 PG (27.0-31.0) Mean Corpuscular Hemoglobin Concent 32.0 G/DL (32.0-36.0) Red Cell Distribution Width 13.9 % (11.6-14.8) Platelet Count 166 K/UL (150-450) Mean Platelet Volume 9.2 FL (6.5-10.1) Neutrophils (%) (Auto) 65.3 % (45.0-75.0) Lymphocytes (%) (Auto) 17.5 % (20.0-45.0) L Monocytes (%) (Auto) 8.3 % (1.0-10.0) Eosinophils (%) (Auto) 7.8 % (0.0-3.0) H Basophils (%) (Auto) 1.0 % (0.0-2.0) Sodium Level 139 MMOL/L (136-145) Potassium Level 3.5 MMOL/L (3.5-5.1) Chloride Level 107 MMOL/L (98-107) Carbon Dioxide Level 21 MMOL/L (21-32) Anion Gap 11 mmol/L (5-15) Blood Urea Nitrogen 8 mg/dL (7-18) Creatinine 1.1 MG/DL (0.55-1.30) Estimat Glomerular Filtration Rate > 60 mL/min (>60) Glucose Level 184 MG/DL (74-106) H Calcium Level 9.9 MG/DL (8.5-10.1) Phosphorus Level 2.7 MG/DL (2.5-4.9) Magnesium Level 1.9 MG/DL (1.8-2.4) Total Bilirubin 0.3 MG/DL (0.2-1.0) Aspartate Amino Transf (AST/SGOT) 14 U/L (15-37) L Alanine Aminotransferase (ALT/SGPT) 29 U/L (12-78) Alkaline Phosphatase 85 U/L (46-116) Total Protein 7.5 G/DL (6.4-8.2) Albumin 2.8 G/DL (3.4-5.0) L Globulin 4.7 g/dL Albumin/Globulin Ratio 0.6 (1.0-2.7) L Nico Goetz MD May 17, 2018 10:17
[2018-05-17] MEDS ORDERED: Sterile Water Irrig 1000ml IRRIG ONE (10:59)
[2018-05-17] MEDS ORDERED: NS 275ml ONE ×2 (10:59→11:06)
[2018-05-17] MEDS ORDERED: Tubing IV Secondary IV ONE ×2 (10:59→11:06)
[2018-05-17] MEDS ORDERED: NS 500ML ONE (11:06)
--- NOTE | 2018-05-17 11:21 | General Surgery Progress Note ---
General Surgery-Progress Note Subjective Additional Comments no acute events. doing well. Objective Last 24 Hour Vital Signs Date Time Temp Pulse Resp B/P (MAP) Pulse Ox O2 Delivery O2 Flow Rate FiO2 05/17/18 08:00 30 05/17/18 08:00 Mechanical Ventilator 05/17/18 08:00 97.0 62 16 115/67 (83) 98 97.0 05/17/18 05:05 73 17 30 05/17/18 04:00 Mechanical Ventilator 05/17/18 04:00 30 05/17/18 04:00 97.7 63 16 124/73 (90) 100 97.7 05/17/18 04:00 67 05/17/18 03:26 75 18 30 05/17/18 01:15 68 17 30 05/17/18 00:00 Mechanical Ventilator 05/17/18 00:00 61 05/17/18 00:00 98.2 68 16 134/79 (97) 100 98.2 05/16/18 23:27 65 16 30 05/16/18 21:01 62 17 30 05/16/18 20:00 30 05/16/18 20:00 97.7 66 20 129/76 (93) 99 97.7 05/16/18 20:00 Mechanical Ventilator 05/16/18 20:00 66 05/16/18 19:21 79 16 30 05/16/18 17:02 76 16 30 05/16/18 16:00 Mechanical Ventilator 05/16/18 16:00 97.7 67 17 119/77 (91) 100 97.7 05/16/18 16:00 30 05/16/18 16:00 66 05/16/18 15:30 77 16 30 05/16/18 13:05 74 16 30 05/16/18 12:00 98.3 72 20 117/75 (89) 100 98.3 05/16/18 12:00 Mechanical Ventilator 05/16/18 12:00 30 05/16/18 12:00 74 I&O Intake and Output 05/16/18 05/17/18 19:00 07:00 Intake Total 1275.932 ml 1332.500 ml Output Total 825 ml 1075 ml Balance 450.932 ml 257.500 ml Free Water 60 ml IV Total 435.932 ml 472.500 ml Tube Feeding 780 ml 780 ml Other 80 ml Output Urine Total 725 ml 650 ml Stool Total 100 ml 425 ml # Bowel Movements 100 Wound: clean Drains: none Cardiovascular: RSR Respiratory: clear Abdomen: soft, distended, present bowel sounds, other - stoma stable Extremities: no cyanosis Laboratory Tests Test 05/17/18 04:00 White Blood Count 7.4 K/UL (4.8-10.8) Red Blood Count 3.83 M/UL (4.70-6.10) L Hemoglobin 10.5 G/DL (14.2-18.0) L Hematocrit 32.8 % (42.0-52.0) L Mean Corpuscular Volume 86 FL (80-99) Mean Corpuscular Hemoglobin 27.4 PG (27.0-31.0) Mean Corpuscular Hemoglobin Concent 32.0 G/DL (32.0-36.0) Red Cell Distribution Width 13.9 % (11.6-14.8) Platelet Count 166 K/UL (150-450) Mean Platelet Volume 9.2 FL (6.5-10.1) Neutrophils (%) (Auto) 65.3 % (45.0-75.0) Lymphocytes (%) (Auto) 17.5 % (20.0-45.0) L Monocytes (%) (Auto) 8.3 % (1.0-10.0) Eosinophils (%) (Auto) 7.8 % (0.0-3.0) H Basophils (%) (Auto) 1.0 % (0.0-2.0) Sodium Level 139 MMOL/L (136-145) Potassium Level 3.5 MMOL/L (3.5-5.1) Chloride Level 107 MMOL/L (98-107) Carbon Dioxide Level 21 MMOL/L (21-32) Anion Gap 11 mmol/L (5-15) Blood Urea Nitrogen 8 mg/dL (7-18) Creatinine 1.1 MG/DL (0.55-1.30) Estimat Glomerular Filtration Rate > 60 mL/min (>60) Glucose Level 184 MG/DL (74-106) H Calcium Level 9.9 MG/DL (8.5-10.1) Phosphorus Level 2.7 MG/DL (2.5-4.9) Magnesium Level 1.9 MG/DL (1.8-2.4) Total Bilirubin 0.3 MG/DL (0.2-1.0) Aspartate Amino Transf (AST/SGOT) 14 U/L (15-37) L Alanine Aminotransferase (ALT/SGPT) 29 U/L (12-78) Alkaline Phosphatase 85 U/L (46-116) Total Protein 7.5 G/DL (6.4-8.2) Albumin 2.8 G/DL (3.4-5.0) L Globulin 4.7 g/dL Albumin/Globulin Ratio 0.6 (1.0-2.7) L Plan Problems: (1) Stoma malfunction (2) Parastomal hernia Assessment & Plan: 52M with history of prior loop colostomy. proximal loop stable. distal with impacted contrast stool but stable. parastomal hernia with small bowel contents in hernia. no obstruction noted at this time. larger appearance of patients stoma is because location and use of loop colostomy in hepatic flexure. it is otherwise viable and stable. Would Highly recommend fixing parastomal hernia but can be done electively. if obstructs will need urgent repair. currently non obstructive will monitor and follow with recs. bowel care thank you for this consultation. (3) Severe sepsis iTno Mancilla May 17, 2018 11:21
[2018-05-17 12:00] VITALS: BP 117/67
--- NOTE | 2018-05-17 12:46 | General Progress Note ---
Assessment/Plan Status: stable Assessment/Plan # Anemia of chronic disease. No hemolysis, peripheral smear reviewed, ferritin is elevated --> Continue to closely monitor for improvement. --> Anemia w/u has been reviewed. Will trend cbc daily. --> Hgb goal >7 # Leukocytosis - Sepsis with elevated temperature of 103 degrees Fahrenheit. --> Lactic acid pending, was elevated upon admission. --> Pt on antibiotics, has received a dose of Zosyn and currently is on vancomycin q.12 h. --> Currently afebrile. --> Appreciate Infectious Disease consult. # Acute kidney injury. --> Currently on IV fluids, IV bolus given to see if the patient responds along with IV pressor as needed. --> Closely monitor with Nephrology team. # Septic shock, use antibiotic per ID services. --> potential pna, bacteremia # Respiratory failure, status post tracheostomy, on mechanical ventilation per Dr. Goetz. # Hypercalcemia. Monitor PTH and calcium level The time the note was entered does not necessarily correspond to the time the patient was seen. Subjective Date patient seen: May 17, 2018 ROS Limited/Unobtainable: Yes Hematologic/Lymphatic: Reports: anemia Allergies: Coded Allergies: AZTREONAM (Verified Allergy, Unknown, 05/13/18) All Systems: reviewed and negative except above Subjective Pt remains obtunded. No acute events. H/H stable. CXR today shows increased left pleural effusion, over 3 days Objective Last 24 Hour Vital Signs Date Time Temp Pulse Resp B/P (MAP) Pulse Ox O2 Delivery O2 Flow Rate FiO2 05/17/18 12:00 97.9 60 16 117/67 (84) 100 97.9 05/17/18 11:31 66 05/17/18 08:00 30 05/17/18 08:00 Mechanical Ventilator 05/17/18 08:00 97.0 62 16 115/67 (83) 98 97.0 05/17/18 07:56 62 05/17/18 05:05 73 17 30 05/17/18 04:00 Mechanical Ventilator 05/17/18 04:00 30 05/17/18 04:00 97.7 63 16 124/73 (90) 100 97.7 05/17/18 04:00 67 05/17/18 03:26 75 18 30 05/17/18 01:15 68 17 30 05/17/18 00:00 Mechanical Ventilator 05/17/18 00:00 61 05/17/18 00:00 98.2 68 16 134/79 (97) 100 98.2 05/16/18 23:27 65 16 30 05/16/18 21:01 62 17 30 05/16/18 20:00 30 05/16/18 20:00 97.7 66 20 129/76 (93) 99 97.7 05/16/18 20:00 Mechanical Ventilator 05/16/18 20:00 66 05/16/18 19:21 79 16 30 05/16/18 17:02 76 16 30 05/16/18 16:00 Mechanical Ventilator 05/16/18 16:00 97.7 67 17 119/77 (91) 100 97.7 05/16/18 16:00 30 05/16/18 16:00 66 05/16/18 15:30 77 16 30 05/16/18 13:05 74 16 30 Intake and Output 05/16/18 05/17/18 19:00 07:00 Intake Total 1275.932 ml 1332.500 ml Output Total 825 ml 1075 ml Balance 450.932 ml 257.500 ml Free Water 60 ml IV Total 435.932 ml 472.500 ml Tube Feeding 780 ml 780 ml Other 80 ml Output Urine Total 725 ml 650 ml Stool Total 100 ml 425 ml # Bowel Movements 100 Laboratory Tests 05/17/18 04:00: White Blood Count 7.4, Red Blood Count 3.83L, Hemoglobin 10.5L, Hematocrit 32.8L , Mean Corpuscular Volume 86, Mean Corpuscular Hemoglobin 27.4, Mean Corpuscular Hemoglobin Concent 32.0, Red Cell Distribution Width 13.9, Platelet Count 166, Mean Platelet Volume 9.2, Neutrophils (%) (Auto) 65.3, Lymphocytes (% ) (Auto) 17.5L, Monocytes (%) (Auto) 8.3, Eosinophils (%) (Auto) 7.8H, Basophils (%) (Auto) 1.0, Sodium Level 139, Potassium Level 3.5, Chloride Level 107, Carbon Dioxide Level 21, Anion Gap 11, Blood Urea Nitrogen 8, Creatinine 1.1, Estimat Glomerular Filtration Rate > 60, Glucose Level 184H, Calcium Level 9.9, Phosphorus Level 2.7, Magnesium Level 1.9, Total Bilirubin 0.3, Aspartate Amino Transf (AST/SGOT) 14L, Alanine Aminotransferase (ALT/SGPT) 29, Alkaline Phosphatase 85, Total Protein 7.5, Albumin 2.8L, Globulin 4.7, Albumin/Globulin Ratio 0.6L Height (Feet): 6 Weight (Pounds): 209 General Appearance: no apparent distress, lethargic EENT: PERRL/EOMI Neck: normal alignment Cardiovascular: normal peripheral pulses Respiratory/Chest: no respiratory distress Abdomen: soft Jimmy Fleming MD May 17, 2018 12:46
--- NOTE | 2018-05-17 12:47 | Infectious Diseases Prog Note ---
Assessment/Plan Assessment/Plan Abx: Zosyn 05/14- IV Vanco 05/14- Assessment: Sepsis, improving- 2ry to UTI and Bacteremia- ?pyelo. Possible PNA -u/a wbc 40-60, nit neg, leuk +2; ucx >100k E. aerogenes (S cefepime, cipro/ levo; R Zosyn) -BCX 01/23 E. aerogenes, prob Amp C (S cefepime, cipro/levo; R Zosyn), P. mirabilis ESBL (S Zosyn, Ertapenem) -CXR 05/17: Increased left pleural effusion, over 3 days. Overall decreased interstitial congestion. Right infrahilar atelectasis -CXR: Cardiomegaly. Mild interstitial congestion. Suspect small bilateral pleural effusions -CT abd/p: Right lower quadrant double barrel colostomy, as described. Small peristomal hernia contains bowel loops without evidence of obstruction or strangulation. Left renal staghorn calculus. Bilateral intrarenal calyceal calculi. Borderline hydronephrosis on the right without evidence of downstream obstructive lesion. May indicate mild ureteral pelvic junction obstruction. Somewhat atrophic left kidney. Inspissated contrast ball within the distal sigmoid colon. Gastrostomy in good position. Nonspecific bilateral perinephric fat stranding, could indicate pyelonephritis or could be chronic. Newberry catheter in place. Apparent bladder wall thickening, possibly an artifact of under distention but cystitis is not excludable, particularly in view of mild perivesical fat stranding. Bilateral pulmonary parenchymal atelectasis and consolidation -sp cx p Fever/Leukocytosis; resolved DIVYA, improving Lactic acidosis, resolved chronic resp failure trach/vent dependant BPH GERD HTN DM2 seizure disorder colostomy s/p GT constipation VRE and MRSA colonized Plan: -Cotninue empiric IV Vancomycin #4 pending sp cx -if no MRSA growth, will d/c -Switch empiric Zosyn #4 to Ertapenem for Amp-C Enterobacter and ESBL P.mirabilis bacteremia ; will treat for 10-14 days -f/u Repeat 2 sets of Bcx -f/u cx -Monitor CBC/CMP, temperatures Thank you for this consultation. Will continue to follow along with you. Discussed with RN. Subjective Allergies: Coded Allergies: AZTREONAM (Verified Allergy, Unknown, 05/13/18) Subjective afebrile in 72hrs no leukocytosis repeat Bcx p Objective Vital Signs Last 24 Hour Vital Signs Date Time Temp Pulse Resp B/P (MAP) Pulse Ox O2 Delivery O2 Flow Rate FiO2 05/17/18 12:00 97.9 60 16 117/67 (84) 100 97.9 05/17/18 11:31 66 05/17/18 08:00 30 05/17/18 08:00 Mechanical Ventilator 05/17/18 08:00 97.0 62 16 115/67 (83) 98 97.0 05/17/18 07:56 62 05/17/18 05:05 73 17 30 05/17/18 04:00 Mechanical Ventilator 05/17/18 04:00 30 05/17/18 04:00 97.7 63 16 124/73 (90) 100 97.7 05/17/18 04:00 67 05/17/18 03:26 75 18 30 05/17/18 01:15 68 17 30 05/17/18 00:00 Mechanical Ventilator 05/17/18 00:00 61 05/17/18 00:00 98.2 68 16 134/79 (97) 100 98.2 05/16/18 23:27 65 16 30 05/16/18 21:01 62 17 30 05/16/18 20:00 30 05/16/18 20:00 97.7 66 20 129/76 (93) 99 97.7 05/16/18 20:00 Mechanical Ventilator 05/16/18 20:00 66 05/16/18 19:21 79 16 30 05/16/18 17:02 76 16 30 05/16/18 16:00 Mechanical Ventilator 05/16/18 16:00 97.7 67 17 119/77 (91) 100 97.7 05/16/18 16:00 30 05/16/18 16:00 66 05/16/18 15:30 77 16 30 05/16/18 13:05 74 16 30 Height (Feet): 6 Weight (Pounds): 209 Objective GENERAL: The patient is awake, in no overt distress. HEENT: Extraocular muscles intact. No lymphadenopathy noted. Tracheostomy noted. CARDIOVASCULAR: S1 and S2. Tachycardic. No rubs or gallops. PULMONARY: Mild diffuse expiratory rhonchi with basilar rales. ABDOMEN: Obese and nondistended. The G-tube and stoma noted. EXTREMITIES: No edema. Fair pedal pulses. Laboratory Tests Test 05/17/18 04:00 White Blood Count 7.4 K/UL (4.8-10.8) Red Blood Count 3.83 M/UL (4.70-6.10) L Hemoglobin 10.5 G/DL (14.2-18.0) L Hematocrit 32.8 % (42.0-52.0) L Mean Corpuscular Volume 86 FL (80-99) Mean Corpuscular Hemoglobin 27.4 PG (27.0-31.0) Mean Corpuscular Hemoglobin Concent 32.0 G/DL (32.0-36.0) Red Cell Distribution Width 13.9 % (11.6-14.8) Platelet Count 166 K/UL (150-450) Mean Platelet Volume 9.2 FL (6.5-10.1) Neutrophils (%) (Auto) 65.3 % (45.0-75.0) Lymphocytes (%) (Auto) 17.5 % (20.0-45.0) L Monocytes (%) (Auto) 8.3 % (1.0-10.0) Eosinophils (%) (Auto) 7.8 % (0.0-3.0) H Basophils (%) (Auto) 1.0 % (0.0-2.0) Sodium Level 139 MMOL/L (136-145) Potassium Level 3.5 MMOL/L (3.5-5.1) Chloride Level 107 MMOL/L (98-107) Carbon Dioxide Level 21 MMOL/L (21-32) Anion Gap 11 mmol/L (5-15) Blood Urea Nitrogen 8 mg/dL (7-18) Creatinine 1.1 MG/DL (0.55-1.30) Estimat Glomerular Filtration Rate > 60 mL/min (>60) Glucose Level 184 MG/DL (74-106) H Calcium Level 9.9 MG/DL (8.5-10.1) Phosphorus Level 2.7 MG/DL (2.5-4.9) Magnesium Level 1.9 MG/DL (1.8-2.4) Total Bilirubin 0.3 MG/DL (0.2-1.0) Aspartate Amino Transf (AST/SGOT) 14 U/L (15-37) L Alanine Aminotransferase (ALT/SGPT) 29 U/L (12-78) Alkaline Phosphatase 85 U/L (46-116) Total Protein 7.5 G/DL (6.4-8.2) Albumin 2.8 G/DL (3.4-5.0) L Globulin 4.7 g/dL Albumin/Globulin Ratio 0.6 (1.0-2.7) L Current Medications Medications (Trade) Dose Ordered Sig/Va Route PRN Reason Start Time Stop Time Status Last Admin Dose Admin Acetaminophen (Tylenol) 650 mg Q4H PRN ORAL FEVER 05/16/18 14:00 06/13/18 09:59 Albuterol/ Ipratropium (Albuterol/ Ipratropium) 3 ml Q4H PRN HHN Shortness of Breath 05/16/18 14:00 05/19/18 09:59 Baclofen (Lioresal) 10 mg THREE TIMES A DAY GT 05/16/18 13:00 06/13/18 12:59 05/17/18 08:47 Chlorhexidine Gluconate (Rebecca-Hex 2%) 1 applic DAILY@2000 TOPIC 05/16/18 20:00 06/13/18 19:59 05/16/18 21:10 Dextrose (Dextrose 50%) 25 ml STAT PRN IV Hypoglycemia 05/17/18 08:45 06/14/18 08:44 Dextrose (Dextrose 50%) 50 ml STAT PRN IV Hypoglycemia 05/17/18 08:45 06/14/18 08:44 Heparin Sodium (Porcine) (Heparin 5000 units/ml) 5,000 units EVERY 12 HOURS SUBQ 05/16/18 21:00 06/13/18 20:59 05/17/18 08:55 Insulin Aspart (NovoLOG) Q6HR SUBQ 05/16/18 18:00 06/14/18 11:29 05/17/18 12:27 Iron Sucrose 100 mg/Sodium Chloride 60 ml @ 240 mls/hr BEDTIME IV 05/16/18 21:00 05/20/18 21:14 05/16/18 22:01 Lansoprazole (Prevacid) 30 mg DAILY GT 05/17/18 09:00 06/15/18 08:59 05/17/18 08:47 Levetiracetam (Keppra) 1,000 mg Q8HR GT 05/16/18 14:00 06/13/18 12:59 05/17/18 05:41 Lorazepam (Ativan 2mg/ml 1ml) 2 mg Q2H PRN IV For Anxiety 05/16/18 12:00 05/21/18 09:59 Morphine Sulfate (Morphine Sulfate) 4 mg Q4H PRN IVP Severe Pain (Pain Scale 7-10) 05/16/18 14:00 05/21/18 09:59 Ondansetron HCl (Zofran) 4 mg Q6H PRN IVP Nausea & Vomiting 05/16/18 16:00 06/13/18 09:59 Piperacillin Sod/ Tazobactam Sod 3.375 gm/Sodium Chloride 110 ml @ 27.5 mls/hr EVERY 8 HOURS IVPB 05/16/18 14:00 05/20/18 11:29 05/17/18 05:40 Polyethylene Glycol (Miralax) 17 gm BEDTIME ORAL 05/16/18 21:00 06/14/18 20:59 05/16/18 21:10 Vancomycin HCl 1 gm/Dextrose 275 ml @ 183.708 mls/hr Q12HR IVPB 05/16/18 21:00 05/21/18 08:59 05/17/18 08:48 Maribel Barrera M.D. May 17, 2018 12:47
--- NOTE | 2018-05-17 14:58 | GI Progress Note ---
Assessment/Plan Problems: (1) Parastomal hernia ICD Codes: K43.5 - Parastomal hernia without obstruction or gangrene SNOMED: 715974170 Qualifiers: Qualified Codes: K43.5 - Parastomal hernia without obstruction or gangrene (2) Stoma malfunction SNOMED: 568167010 (3) Colostomy in place ICD Codes: Z93.3 - Colostomy status SNOMED: 747638488, 785893924 (4) Vegetative state ICD Codes: R40.3 - Persistent vegetative state SNOMED: 57082835 (5) Diabetes mellitus ICD Codes: E11.9 - Type 2 diabetes mellitus without complications SNOMED: 45091529 (6) Acute on chronic respiratory failure ICD Codes: J96.20 - Acute and chronic respiratory failure, unspecified whether with hypoxia or hypercapnia SNOMED: 57597281 (7) Severe sepsis ICD Codes: A41.9 - Sepsis, unspecified organism; R65.20 - Severe sepsis without septic shock SNOMED: 50740924 Status: unchanged Status Narrative Discussed with Dr. Prater. Assessment/Plan prolapse stoma assessed >> no s/sx of infection. no obstruction. anemia work up reviewed >> iron deficiency G tube dependent hepatitis panel negative OB negative supportive care monitor H&H, prn transfusions venofer ppi GTFs per RD, adv to goal GT site care daily/prn abx bowel regime fu labs The patient was seen and examined at bedside and all new and available data was reviewed in the patients chart. I agree with the above findings, impression and plan. (Patient seen earlier today. Signature stamp does not reflect patient encounter time.). - Dae Prater MD Subjective Subjective limited Objective Last 24 Hour Vital Signs Date Time Temp Pulse Resp B/P (MAP) Pulse Ox O2 Delivery O2 Flow Rate FiO2 05/17/18 14:40 61 16 30 05/17/18 13:18 63 16 30 05/17/18 12:00 Mechanical Ventilator 05/17/18 12:00 97.9 60 16 117/67 (84) 100 97.9 05/17/18 12:00 30 05/17/18 11:31 66 05/17/18 10:45 62 16 30 05/17/18 09:17 60 16 30 05/17/18 08:00 30 05/17/18 08:00 Mechanical Ventilator 05/17/18 08:00 97.0 62 16 115/67 (83) 98 97.0 05/17/18 07:56 62 05/17/18 07:28 60 16 30 05/17/18 05:05 73 17 30 05/17/18 04:00 Mechanical Ventilator 05/17/18 04:00 30 05/17/18 04:00 97.7 63 16 124/73 (90) 100 97.7 05/17/18 04:00 67 05/17/18 03:26 75 18 30 05/17/18 01:15 68 17 30 05/17/18 00:00 Mechanical Ventilator 05/17/18 00:00 61 05/17/18 00:00 98.2 68 16 134/79 (97) 100 98.2 05/16/18 23:27 65 16 30 05/16/18 21:01 62 17 30 05/16/18 20:00 30 05/16/18 20:00 97.7 66 20 129/76 (93) 99 97.7 05/16/18 20:00 Mechanical Ventilator 05/16/18 20:00 66 05/16/18 19:21 79 16 30 05/16/18 17:02 76 16 30 05/16/18 16:00 Mechanical Ventilator 05/16/18 16:00 97.7 67 17 119/77 (91) 100 97.7 05/16/18 16:00 30 05/16/18 16:00 66 05/16/18 15:30 77 16 30 Intake and Output 05/16/18 05/17/18 19:00 07:00 Intake Total 1275.932 ml 1332.500 ml Output Total 825 ml 1075 ml Balance 450.932 ml 257.500 ml Free Water 60 ml IV Total 435.932 ml 472.500 ml Tube Feeding 780 ml 780 ml Other 80 ml Output Urine Total 725 ml 650 ml Stool Total 100 ml 425 ml # Bowel Movements 100 Laboratory Tests Test 05/17/18 04:00 White Blood Count 7.4 K/UL (4.8-10.8) Red Blood Count 3.83 M/UL (4.70-6.10) L Hemoglobin 10.5 G/DL (14.2-18.0) L Hematocrit 32.8 % (42.0-52.0) L Mean Corpuscular Volume 86 FL (80-99) Mean Corpuscular Hemoglobin 27.4 PG (27.0-31.0) Mean Corpuscular Hemoglobin Concent 32.0 G/DL (32.0-36.0) Red Cell Distribution Width 13.9 % (11.6-14.8) Platelet Count 166 K/UL (150-450) Mean Platelet Volume 9.2 FL (6.5-10.1) Neutrophils (%) (Auto) 65.3 % (45.0-75.0) Lymphocytes (%) (Auto) 17.5 % (20.0-45.0) L Monocytes (%) (Auto) 8.3 % (1.0-10.0) Eosinophils (%) (Auto) 7.8 % (0.0-3.0) H Basophils (%) (Auto) 1.0 % (0.0-2.0) Sodium Level 139 MMOL/L (136-145) Potassium Level 3.5 MMOL/L (3.5-5.1) Chloride Level 107 MMOL/L (98-107) Carbon Dioxide Level 21 MMOL/L (21-32) Anion Gap 11 mmol/L (5-15) Blood Urea Nitrogen 8 mg/dL (7-18) Creatinine 1.1 MG/DL (0.55-1.30) Estimat Glomerular Filtration Rate > 60 mL/min (>60) Glucose Level 184 MG/DL (74-106) H Calcium Level 9.9 MG/DL (8.5-10.1) Phosphorus Level 2.7 MG/DL (2.5-4.9) Magnesium Level 1.9 MG/DL (1.8-2.4) Total Bilirubin 0.3 MG/DL (0.2-1.0) Aspartate Amino Transf (AST/SGOT) 14 U/L (15-37) L Alanine Aminotransferase (ALT/SGPT) 29 U/L (12-78) Alkaline Phosphatase 85 U/L (46-116) Total Protein 7.5 G/DL (6.4-8.2) Albumin 2.8 G/DL (3.4-5.0) L Globulin 4.7 g/dL Albumin/Globulin Ratio 0.6 (1.0-2.7) L Height (Feet): 6 Weight (Pounds): 209 General Appearance: no apparent distress Cardiovascular: normal rate Respiratory/Chest: normal breath sounds, no respiratory distress Abdominal Exam: normal bowel sounds, non tender, soft, other - protuding stoma Extremities: non-tender Boyd Emmanuel NP May 17, 2018 14:58
[2018-05-17] MEDS: Ertapenem 1 GM in NS 55 ML IVPB SCH (15:05)
[2018-05-17 16:00] VITALS: BP 131/82
[2018-05-17 20:00] VITALS: BP 124/74
[2018-05-17] MEDS: Dyna-Hex 2% Top Sol 2oz TOPIC SCH (21:11)
[2018-05-17] MEDS: Iron Sucrose 100 MG in NS 55 ML IV SCH (21:12)
[2018-05-17] MEDS: Miralax 17gm pkt ORAL SCH (21:13)
[2018-05-17] MEDS: Vancomycin 1gm in Dextrose 275ml IVPB SCH (21:47)
[2018-05-18] VITALS: BP 125/75
[2018-05-18 04:00] VITALS: BP 137/83
[2018-05-18] MEDS: Vancomycin 1gm in Dextrose 275ml IVPB SCH (06:02)
[2018-05-18] MEDS: levETIRAcetam 500mg/5ml Liquid GT SCH ×3 (06:02→21:32)
[2018-05-18] MEDS: NovoLOG Insulin Flexpen SUBQ SCH ×4 (06:03→23:39)
[2018-05-18 06:23] LABS: ANION GAP 12 mmol/L (5-15); BLOOD UREA NITROGEN 7 mg/dL (7-18); CALCIUM 9.4 MG/DL (8.5-10.1); CARBON DIOXIDE 20 MMOL/L (21-32); CHLORIDE 106 MMOL/L (98-107); CREATININE 0.9 MG/DL (0.55-1.30); POTASSIUM 3.7 MMOL/L (3.5-5.1); SODIUM 138 MMOL/L (136-145)
[2018-05-18 08:08] VITALS: BP 138/85
--- NOTE | 2018-05-18 08:23 | Nephrology Progress Note ---
Assessment/Plan Assessment/Plan 1. DIVYA- resolved 2. Septic Shock- stable. On Abx 3. Chronic Resp FL- trached on vent 4. Hypok/Phos- corrected - replace PRN 5. SZ- Kerosariora Subjective Date patient seen: May 18, 2018 Time patient seen: 08:21 ROS Limited/Unobtainable: Yes Allergies: Coded Allergies: AZTREONAM (Verified Allergy, Unknown, 05/13/18) Subjective Patient trached/vent. Objective Last 24 Hour Vital Signs Date Time Temp Pulse Resp B/P (MAP) Pulse Ox O2 Delivery O2 Flow Rate FiO2 05/18/18 08:08 97.9 60 16 138/85 (102) 99 97.9 05/18/18 05:17 68 16 30 05/18/18 04:00 61 05/18/18 04:00 Mechanical Ventilator 05/18/18 04:00 98.1 65 18 137/83 (101) 98 98.1 05/18/18 02:40 69 16 30 05/18/18 01:01 65 16 30 05/18/18 00:00 30 05/18/18 00:00 Mechanical Ventilator 05/18/18 00:00 61 05/18/18 00:00 98.1 60 20 125/75 (92) 98 98.1 05/17/18 22:51 72 16 30 05/17/18 21:19 73 16 30 05/17/18 20:00 Mechanical Ventilator 05/17/18 20:00 96.1 57 16 124/74 (91) 96 96.1 05/17/18 20:00 60 05/17/18 20:00 30 05/17/18 18:35 71 16 30 05/17/18 17:25 63 16 30 05/17/18 16:00 Mechanical Ventilator 05/17/18 16:00 60 05/17/18 16:00 97.2 61 16 131/82 (98) 100 97.2 05/17/18 16:00 30 05/17/18 14:40 61 16 30 05/17/18 13:18 63 16 30 05/17/18 12:00 Mechanical Ventilator 05/17/18 12:00 97.9 60 16 117/67 (84) 100 97.9 05/17/18 12:00 30 05/17/18 11:31 66 05/17/18 10:45 62 16 30 7/27/18 09:17 60 16 30 Intake and Output 05/17/18 05/18/18 19:00 07:00 Intake Total 1260.000 ml 935 ml Output Total 900 ml 450 ml Balance 360.000 ml 485 ml Free Water 100 ml IV Total 330.000 ml 60 ml Tube Feeding 780 ml 715 ml Other 150 ml 60 ml Output Urine Total 600 ml 450 ml Stool Total 300 ml Laboratory Tests 05/17/18 20:30: Vancomycin Level Trough 11.8 05/18/18 04:30: Sodium Level 138, Potassium Level 3.7, Chloride Level 106, Carbon Dioxide Level 20L, Anion Gap 12, Blood Urea Nitrogen 7, Creatinine 0.9, Estimat Glomerular Filtration Rate > 60, Glucose Level 178H, Calcium Level 9.4 Height (Feet): 6 Weight (Pounds): 210 General Appearance: WD/WN EENT: PERRL/EOMI Neck: non-tender, normal alignment Cardiovascular: normal peripheral pulses, normal rate Respiratory/Chest: chest wall non-tender, lungs clear Abdomen: normal bowel sounds, non tender, soft Edema: no edema noted Arm (L), no edema noted Arm (R), no edema noted Leg (L), no edema noted Leg (R), no edema noted Pedal (L), no edema noted Pedal (R), no edema noted Generalized Mir Gann M.D. May 18, 2018 08:23
[2018-05-18] MEDS: Heparin 5000 units/ml inj SUBQ SCH ×2 (09:21→21:35)
--- NOTE | 2018-05-18 10:46 | General Progress Note ---
Assessment/Plan Status: stable Assessment/Plan # Anemia of chronic disease. No hemolysis, peripheral smear reviewed, ferritin is elevated --> Continue to closely monitor for improvement. --> Anemia w/u has been reviewed. Will trend cbc daily. --> Hgb goal >7 # Leukocytosis - Sepsis with elevated temperature of 103 degrees Fahrenheit. --> Lactic acid pending, was elevated upon admission. --> Pt on antibiotics, has received a dose of Zosyn and currently is on vancomycin q.12 h. --> Currently afebrile. --> Appreciate Infectious Disease consult. # Acute kidney injury. --> Currently on IV fluids, IV bolus given to see if the patient responds along with IV pressor as needed. --> Closely monitor with Nephrology team. # Septic shock, use antibiotic per ID services. --> potential pna, bacteremia # Respiratory failure, status post tracheostomy, on mechanical ventilation per Dr. Goetz. # Hypercalcemia. Monitor PTH and calcium level The time the note was entered does not necessarily correspond to the time the patient was seen. Subjective Date patient seen: May 18, 2018 ROS Limited/Unobtainable: Yes Hematologic/Lymphatic: Reports: anemia Allergies: Coded Allergies: AZTREONAM (Verified Allergy, Unknown, 05/13/18) All Systems: reviewed and negative except above Subjective Pt remains obtunded. No acute events. H/H stable. Objective Last 24 Hour Vital Signs Date Time Temp Pulse Resp B/P (MAP) Pulse Ox O2 Delivery O2 Flow Rate FiO2 05/18/18 08:30 Mechanical Ventilator Mechanical Ventilator Mechanical Ventilator 05/18/18 08:08 97.9 60 16 138/85 (102) 99 97.9 05/18/18 08:00 30 05/18/18 08:00 60 05/18/18 05:17 68 16 30 05/18/18 04:00 61 05/18/18 04:00 Mechanical Ventilator 05/18/18 04:00 98.1 65 18 137/83 (101) 98 98.1 05/18/18 02:40 69 16 30 05/18/18 01:01 65 16 30 05/18/18 00:00 30 05/18/18 00:00 Mechanical Ventilator 05/18/18 00:00 61 05/18/18 00:00 98.1 60 20 125/75 (92) 98 98.1 05/17/18 22:51 72 16 30 05/17/18 21:19 73 16 30 05/17/18 20:00 Mechanical Ventilator 05/17/18 20:00 96.1 57 16 124/74 (91) 96 96.1 05/17/18 20:00 60 05/17/18 20:00 30 05/17/18 18:35 71 16 30 05/17/18 17:25 63 16 30 05/17/18 16:00 Mechanical Ventilator 05/17/18 16:00 60 05/17/18 16:00 97.2 61 16 131/82 (98) 100 97.2 05/17/18 16:00 30 05/17/18 14:40 61 16 30 05/17/18 13:18 63 16 30 05/17/18 12:00 Mechanical Ventilator 05/17/18 12:00 97.9 60 16 117/67 (84) 100 97.9 05/17/18 12:00 30 05/17/18 11:31 66 05/17/18 10:45 62 16 30 Intake and Output 05/17/18 05/18/18 19:00 07:00 Intake Total 1260.000 ml 935 ml Output Total 900 ml 450 ml Balance 360.000 ml 485 ml Free Water 100 ml IV Total 330.000 ml 60 ml Tube Feeding 780 ml 715 ml Other 150 ml 60 ml Output Urine Total 600 ml 450 ml Stool Total 300 ml Laboratory Tests 05/17/18 20:30: Vancomycin Level Trough 11.8 05/18/18 04:30: Sodium Level 138, Potassium Level 3.7, Chloride Level 106, Carbon Dioxide Level 20L, Anion Gap 12, Blood Urea Nitrogen 7, Creatinine 0.9, Estimat Glomerular Filtration Rate > 60, Glucose Level 178H, Calcium Level 9.4 Height (Feet): 6 Weight (Pounds): 210 General Appearance: no apparent distress, lethargic EENT: PERRL/EOMI Neck: normal alignment Cardiovascular: normal peripheral pulses Respiratory/Chest: no respiratory distress Abdomen: soft Jimmy Fleming MD May 18, 2018 10:46
[2018-05-18 12:06] VITALS: BP 123/71
--- NOTE | 2018-05-18 13:06 | Infectious Diseases Prog Note ---
Assessment/Plan Assessment/Plan Assessment: Sepsis, resolving- 2ry to UTI and Bacteremia- ?pyelo. Possible PNA -u/a wbc 40-60, nit neg, leuk +2; ucx >100k E. aerogenes (S cefepime, cipro/ levo; R Zosyn) -BCX 01/23 E. aerogenes, prob Amp C (S cefepime, cipro/levo; R Zosyn), P. mirabilis ESBL (S Zosyn, Ertapenem); repeta 05/16 10/25 GPC clusters (suspect contaminant- r/o S,aureus) -CXR 05/17: Increased left pleural effusion, over 3 days. Overall decreased interstitial congestion. Right infrahilar atelectasis -CXR: Cardiomegaly. Mild interstitial congestion. Suspect small bilateral pleural effusions -CT abd/p: Right lower quadrant double barrel colostomy, as described. Small peristomal hernia contains bowel loops without evidence of obstruction or strangulation. Left renal staghorn calculus. Bilateral intrarenal calyceal calculi. Borderline hydronephrosis on the right without evidence of downstream obstructive lesion. May indicate mild ureteral pelvic junction obstruction. Somewhat atrophic left kidney. Inspissated contrast ball within the distal sigmoid colon. Gastrostomy in good position. Nonspecific bilateral perinephric fat stranding, could indicate pyelonephritis or could be chronic. Newberry catheter in place. Apparent bladder wall thickening, possibly an artifact of under distention but cystitis is not excludable, particularly in view of mild perivesical fat stranding. Bilateral pulmonary parenchymal atelectasis and consolidation -sp cx p Fever/Leukocytosis; resolved DIVYA, improving Lactic acidosis, resolved chronic resp failure trach/vent dependant BPH GERD HTN DM2 seizure disorder colostomy s/p GT constipation VRE and MRSA colonized Plan: -Cotninue empiric IV Vancomycin #5 for nwo pending ID GPC BCx and repeat Bcx -Continue Ertapenem #2/10 for Amp-C Enterobacter and ESBL P.mirabilis bacteremia ; will treat for 10-14 days -05/17 SP Zosyn #4 -Repeat 2 sets of Bcx -f/u cx -Monitor CBC/CMP, temperatures Thank you for this consultation. Will continue to follow along with you. Discussed with RN. Subjective Allergies: Coded Allergies: AZTREONAM (Verified Allergy, Unknown, 05/13/18) Subjective afebrile no leukocytosis repeat Bcx GPC clusters Objective Vital Signs Last 24 Hour Vital Signs Date Time Temp Pulse Resp B/P (MAP) Pulse Ox O2 Delivery O2 Flow Rate FiO2 05/18/18 12:06 97.5 63 18 123/71 (88) 100 97.5 05/18/18 12:05 Mechanical Ventilator Mechanical Ventilator Mechanical Ventilator 05/18/18 12:00 30 05/18/18 11:11 64 16 30 05/18/18 09:05 65 16 30 05/18/18 08:30 Mechanical Ventilator Mechanical Ventilator Mechanical Ventilator 05/18/18 08:08 97.9 60 16 138/85 (102) 99 97.9 05/18/18 08:00 30 05/18/18 08:00 60 05/18/18 06:50 63 16 30 05/18/18 05:17 68 16 30 05/18/18 04:00 61 05/18/18 04:00 Mechanical Ventilator 05/18/18 04:00 98.1 65 18 137/83 (101) 98 98.1 05/18/18 02:40 69 16 30 05/18/18 01:01 65 16 30 05/18/18 00:00 30 05/18/18 00:00 Mechanical Ventilator 05/18/18 00:00 61 05/18/18 00:00 98.1 60 20 125/75 (92) 98 98.1 05/17/18 22:51 72 16 30 05/17/18 21:19 73 16 30 05/17/18 20:00 Mechanical Ventilator 05/17/18 20:00 96.1 57 16 124/74 (91) 96 96.1 05/17/18 20:00 60 05/17/18 20:00 30 05/17/18 18:35 71 16 30 05/17/18 17:25 63 16 30 05/17/18 16:00 Mechanical Ventilator 05/17/18 16:00 60 05/17/18 16:00 97.2 61 16 131/82 (98) 100 97.2 05/17/18 16:00 30 05/17/18 14:40 61 16 30 05/17/18 13:18 63 16 30 Height (Feet): 6 Weight (Pounds): 210 Objective GENERAL: The patient is awake, in no overt distress. HEENT: Extraocular muscles intact. No lymphadenopathy noted. Tracheostomy noted. CARDIOVASCULAR: S1 and S2. Tachycardic. No rubs or gallops. PULMONARY: Mild diffuse expiratory rhonchi with basilar rales. ABDOMEN: Obese and nondistended. The G-tube and stoma noted. EXTREMITIES: No edema. Fair pedal pulses. Microbiology Date/Time Source Procedure Growth Status 05/16/18 17:50 Blood Blood Culture - Preliminary Resulted 05/16/18 17:45 Blood Blood Culture - Preliminary NO GROWTH AFTER 24 HOURS Resulted Laboratory Tests Test 05/17/18 20:30 05/18/18 04:30 Vancomycin Level Trough 11.8 ug/mL (5.0-12.0) Sodium Level 138 MMOL/L (136-145) Potassium Level 3.7 MMOL/L (3.5-5.1) Chloride Level 106 MMOL/L (98-107) Carbon Dioxide Level 20 MMOL/L (21-32) L Anion Gap 12 mmol/L (5-15) Blood Urea Nitrogen 7 mg/dL (7-18) Creatinine 0.9 MG/DL (0.55-1.30) Estimat Glomerular Filtration Rate > 60 mL/min (>60) Glucose Level 178 MG/DL (74-106) H Calcium Level 9.4 MG/DL (8.5-10.1) Current Medications Medications (Trade) Dose Ordered Sig/Va Route PRN Reason Start Time Stop Time Status Last Admin Dose Admin Acetaminophen (Tylenol) 650 mg Q4H PRN ORAL FEVER 05/16/18 14:00 06/13/18 09:59 Albuterol/ Ipratropium (Albuterol/ Ipratropium) 3 ml Q4H PRN HHN Shortness of Breath 05/16/18 14:00 05/19/18 09:59 Baclofen (Lioresal) 10 mg THREE TIMES A DAY GT 05/16/18 13:00 06/13/18 12:59 05/18/18 09:18 Chlorhexidine Gluconate (Rebecca-Hex 2%) 1 applic DAILY@1999 TOPIC 05/16/18 20:00 06/13/18 19:59 05/17/18 21:11 Dextrose (Dextrose 50%) 25 ml STAT PRN IV Hypoglycemia 05/17/18 08:45 06/14/18 08:44 Dextrose (Dextrose 50%) 50 ml STAT PRN IV Hypoglycemia 05/17/18 08:45 06/14/18 08:44 Ertapenem 1 gm/ Sodium Chloride 55 ml @ 110 mls/hr Q24H IVPB 05/17/18 15:00 05/22/18 14:59 05/17/18 15:05 Heparin Sodium (Porcine) (Heparin 5000 units/ml) 5,000 units EVERY 12 HOURS SUBQ 05/16/18 21:00 06/13/18 20:59 05/18/18 09:21 Insulin Aspart (NovoLOG) Q6HR SUBQ 05/16/18 18:00 06/14/18 11:29 05/18/18 12:28 Iron Sucrose 100 mg/Sodium Chloride 60 ml @ 240 mls/hr BEDTIME IV 05/16/18 21:00 05/20/18 21:14 05/17/18 21:12 Lansoprazole (Prevacid) 30 mg DAILY GT 05/17/18 09:00 06/15/18 08:59 05/18/18 09:19 Levetiracetam (Keppra) 1,000 mg Q8HR GT 05/16/18 14:00 06/13/18 12:59 05/18/18 06:02 Lorazepam (Ativan 2mg/ml 1ml) 2 mg Q2H PRN IV For Anxiety 05/16/18 12:00 05/21/18 09:59 Morphine Sulfate (Morphine Sulfate) 4 mg Q4H PRN IVP Severe Pain (Pain Scale 7-10) 05/16/18 14:00 05/21/18 09:59 Ondansetron HCl (Zofran) 4 mg Q6H PRN IVP Nausea & Vomiting 05/16/18 16:00 06/13/18 09:59 Polyethylene Glycol (Miralax) 17 gm BEDTIME ORAL 05/16/18 21:00 06/14/18 20:59 05/17/18 21:13 Vancomycin HCl (Vanco rx to dose) 1 ea DAILY PRN MISC PER RX PROTOCOL 05/17/18 13:45 06/16/18 13:44 Vancomycin HCl 1 gm/Dextrose 275 ml @ 183.708 mls/hr Q8HR IVPB 05/17/18 22:00 05/22/18 21:59 7/28/18 06:02 Maribel Barrera M.D. May 18, 2018 13:06
[2018-05-18] MEDS ORDERED: Vancomycin 1 GM in D5W 275 ML IVPB SCH (14:00)
[2018-05-18] MEDS: Vancomycin 1 GM in D5W 275 ML IVPB SCH ×2 (14:03→21:32)
--- NOTE | 2018-05-18 14:36 | General Surgery Progress Note ---
General Surgery-Progress Note Subjective Additional Comments no acute events. stable.. Objective Last 24 Hour Vital Signs Date Time Temp Pulse Resp B/P (MAP) Pulse Ox O2 Delivery O2 Flow Rate FiO2 05/18/18 12:30 61 16 30 05/18/18 12:06 97.5 63 18 123/71 (88) 100 97.5 05/18/18 12:05 Mechanical Ventilator Mechanical Ventilator Mechanical Ventilator 05/18/18 12:00 30 05/18/18 12:00 65 05/18/18 11:11 64 16 30 05/18/18 09:05 65 16 30 05/18/18 08:30 Mechanical Ventilator Mechanical Ventilator Mechanical Ventilator 05/18/18 08:08 97.9 60 16 138/85 (102) 99 97.9 05/18/18 08:00 30 05/18/18 08:00 60 05/18/18 06:50 63 16 30 05/18/18 05:17 68 16 30 05/18/18 04:00 61 05/18/18 04:00 Mechanical Ventilator 05/18/18 04:00 98.1 65 18 137/83 (101) 98 98.1 05/18/18 02:40 69 16 30 05/18/18 01:01 65 16 30 05/18/18 00:00 30 05/18/18 00:00 Mechanical Ventilator 05/18/18 00:00 61 05/18/18 00:00 98.1 60 20 125/75 (92) 98 98.1 05/17/18 22:51 72 16 30 05/17/18 21:19 73 16 30 05/17/18 20:00 Mechanical Ventilator 05/17/18 20:00 96.1 57 16 124/74 (91) 96 96.1 05/17/18 20:00 60 05/17/18 20:00 30 05/17/18 18:35 71 16 30 05/17/18 17:25 63 16 30 05/17/18 16:00 Mechanical Ventilator 05/17/18 16:00 60 05/17/18 16:00 97.2 61 16 131/82 (98) 100 97.2 05/17/18 16:00 30 05/17/18 14:40 61 16 30 I&O Intake and Output 05/17/18 05/18/18 19:00 07:00 Intake Total 1260.000 ml 935 ml Output Total 900 ml 450 ml Balance 360.000 ml 485 ml Free Water 100 ml IV Total 330.000 ml 60 ml Tube Feeding 780 ml 715 ml Other 150 ml 60 ml Output Urine Total 600 ml 450 ml Stool Total 300 ml Wound: clean Drains: none Cardiovascular: RSR Respiratory: clear Abdomen: soft, flat, non-tender, present bowel sounds Extremities: no cyanosis Laboratory Tests Test 05/17/18 20:30 05/18/18 04:30 Vancomycin Level Trough 11.8 ug/mL (5.0-12.0) Sodium Level 138 MMOL/L (136-145) Potassium Level 3.7 MMOL/L (3.5-5.1) Chloride Level 106 MMOL/L (98-107) Carbon Dioxide Level 20 MMOL/L (21-32) L Anion Gap 12 mmol/L (5-15) Blood Urea Nitrogen 7 mg/dL (7-18) Creatinine 0.9 MG/DL (0.55-1.30) Estimat Glomerular Filtration Rate > 60 mL/min (>60) Glucose Level 178 MG/DL (74-106) H Calcium Level 9.4 MG/DL (8.5-10.1) Plan Problems: (1) Stoma malfunction (2) Parastomal hernia Assessment & Plan: 52M with history of prior loop colostomy. proximal loop stable. distal with impacted contrast stool but stable. parastomal hernia with small bowel contents in hernia. no obstruction noted at this time. larger appearance of patients stoma is because location and use of loop colostomy in hepatic flexure. it is otherwise viable and stable. Would Highly recommend fixing parastomal hernia but can be done electively. if obstructs will need urgent repair. currently non obstructive will monitor and follow with recs. bowel care thank you for this consultation. (3) Severe sepsis Tino Mancilla May 18, 2018 14:36
[2018-05-18] MEDS: Ertapenem 1 GM in NS 55 ML IVPB SCH (15:36)
[2018-05-18] MEDS ORDERED: NS 275ml ONE (15:37)
[2018-05-18] MEDS ORDERED: Tubing IV Secondary IV ONE (15:37)
--- NOTE | 2018-05-18 15:59 | General Progress Note ---
Assessment/Plan Assessment/Plan Assessment (1) Parastomal hernia ICD Codes: K43.5 - Parastomal hernia without obstruction or gangrene SNOMED: 527056731 Qualifiers: Qualified Codes: K43.5 - Parastomal hernia without obstruction or gangrene (2) Stoma malfunction SNOMED: 168211785 (3) Colostomy in place ICD Codes: Z93.3 - Colostomy status SNOMED: 368569595, 443274114 (4) Vegetative state / Dysphagia / G tube dependent ICD Codes: R40.3 - Persistent vegetative state SNOMED: 16849012 (5) Diabetes mellitus ICD Codes: E11.9 - Type 2 diabetes mellitus without complications SNOMED: 84203201 (6) Acute on chronic respiratory failure ICD Codes: J96.20 - Acute and chronic respiratory failure, unspecified whether with hypoxia or hypercapnia SNOMED: 43963121 (7) Severe sepsis ICD Codes: A41.9 - Sepsis, unspecified organism; R65.20 - Severe sepsis without septic shock SNOMED: 92302202 Assessment/Plan prolapse stoma assessed >> no s/sx of infection. no obstruction. anemia work up reviewed >> iron deficiency G tube dependent hepatitis panel negative OB negative supportive care monitor H&H, prn transfusions venofer ppi GTFs per RD, adv to goal GT site care daily/prn abx bowel regime fu labs Subjective Allergies: Coded Allergies: AZTREONAM (Verified Allergy, Unknown, 05/13/18) Subjective non communicative on trach tolerating TF Objective Last 24 Hour Vital Signs Date Time Temp Pulse Resp B/P (MAP) Pulse Ox O2 Delivery O2 Flow Rate FiO2 05/18/18 15:05 64 16 30 05/18/18 12:30 61 16 30 05/18/18 12:06 97.5 63 18 123/71 (88) 100 97.5 05/18/18 12:05 Mechanical Ventilator Mechanical Ventilator Mechanical Ventilator 05/18/18 12:00 30 05/18/18 12:00 65 05/18/18 11:11 64 16 30 05/18/18 09:05 65 16 30 05/18/18 08:30 Mechanical Ventilator Mechanical Ventilator Mechanical Ventilator 05/18/18 08:08 97.9 60 16 138/85 (102) 99 97.9 05/18/18 08:00 30 05/18/18 08:00 60 05/18/18 06:50 63 16 30 05/18/18 05:17 68 16 30 05/18/18 04:00 61 05/18/18 04:00 Mechanical Ventilator 05/18/18 04:00 98.1 65 18 137/83 (101) 98 98.1 05/18/18 02:40 69 16 30 05/18/18 01:01 65 16 30 05/18/18 00:00 30 05/18/18 00:00 Mechanical Ventilator 05/18/18 00:00 61 05/18/18 00:00 98.1 60 20 125/75 (92) 98 98.1 05/17/18 22:51 72 16 30 05/17/18 21:19 73 16 30 05/17/18 20:00 Mechanical Ventilator 05/17/18 20:00 96.1 57 16 124/74 (91) 96 96.1 05/17/18 20:00 60 05/17/18 20:00 30 05/17/18 18:35 71 16 30 05/17/18 17:25 63 16 30 05/17/18 16:00 Mechanical Ventilator 05/17/18 16:00 60 05/17/18 16:00 97.2 61 16 131/82 (98) 100 97.2 05/17/18 16:00 30 Intake and Output 05/17/18 05/18/18 19:00 07:00 Intake Total 1260.000 ml 935 ml Output Total 900 ml 450 ml Balance 360.000 ml 485 ml Free Water 100 ml IV Total 330.000 ml 60 ml Tube Feeding 780 ml 715 ml Other 150 ml 60 ml Output Urine Total 600 ml 450 ml Stool Total 300 ml Laboratory Tests 05/17/18 20:30: Vancomycin Level Trough 11.8 05/18/18 04:30: Sodium Level 138, Potassium Level 3.7, Chloride Level 106, Carbon Dioxide Level 20L, Anion Gap 12, Blood Urea Nitrogen 7, Creatinine 0.9, Estimat Glomerular Filtration Rate > 60, Glucose Level 178H, Calcium Level 9.4 Height (Feet): 6 Weight (Pounds): 210 Objective Obese AA man NCAT neck (+) trach Chest Coarse BS RRR abd obese, (+) R sided ostomy and L sided GT (+) contractures OBS Lupe Parrish MD May 18, 2018 15:59
[2018-05-18 16:00] VITALS: BP 129/85
[2018-05-18 20:00] VITALS: BP 132/76
[2018-05-18] MEDS: Miralax 17gm pkt ORAL SCH (21:00)
[2018-05-18] MEDS: Dyna-Hex 2% Top Sol 2oz TOPIC SCH (21:32)
[2018-05-18] MEDS: Iron Sucrose 100 MG in NS 55 ML IV SCH (21:32)
[2018-05-19] VITALS: BP 136/80
[2018-05-19 04:00] VITALS: BP 143/90
[2018-05-19 05:38] LABS: ANION GAP 11 mmol/L (5-15); BLOOD UREA NITROGEN 6 mg/dL (7-18); CALCIUM 9.1 MG/DL (8.5-10.1); CARBON DIOXIDE 21 MMOL/L (21-32); CHLORIDE 103 MMOL/L (98-107); CREATININE 0.9 MG/DL (0.55-1.30); POTASSIUM 3.8 MMOL/L (3.5-5.1); SODIUM 135 MMOL/L (136-145)
[2018-05-19] MEDS: levETIRAcetam 500mg/5ml Liquid GT SCH ×3 (05:53→21:47)
[2018-05-19] MEDS: Vancomycin 1 GM in D5W 275 ML IVPB SCH ×2 (05:53→17:42)
[2018-05-19] MEDS: NovoLOG Insulin Flexpen SUBQ SCH ×3 (06:01→17:45)
[2018-05-19 08:00] VITALS: BP 133/80
[2018-05-19] MEDS: Heparin 5000 units/ml inj SUBQ SCH ×2 (09:02→21:02)
--- NOTE | 2018-05-19 09:02 | Nephrology Progress Note ---
Assessment/Plan Assessment/Plan 1. DIVYA- resolved 2. Septis- resolving on Abx 3. Chronic Resp FL- trached on vent 4. Hyponatremia - mild at 135. Avoid excess free water with Abx while on Keppra (SIADH) 5. SZ- Keppra Subjective Date patient seen: May 19, 2018 Time patient seen: 09:00 ROS Limited/Unobtainable: Yes Allergies: Coded Allergies: AZTREONAM (Verified Allergy, Unknown, 05/13/18) Subjective Patient trached/vent. In no overt distress Objective Last 24 Hour Vital Signs Date Time Temp Pulse Resp B/P (MAP) Pulse Ox O2 Delivery O2 Flow Rate FiO2 05/19/18 08:00 64 05/19/18 07:29 73 18 30 05/19/18 05:20 71 22 30 05/19/18 04:00 Mechanical Ventilator Mechanical Ventilator Mechanical Ventilator 05/19/18 04:00 97.5 70 16 143/90 (107) 100 97.5 05/19/18 04:00 71 05/19/18 04:00 30 05/19/18 03:18 70 19 30 05/19/18 01:30 72 16 30 05/19/18 00:00 97.7 75 16 136/80 (98) 99 97.7 05/19/18 00:00 75 05/19/18 00:00 30 05/19/18 00:00 Mechanical Ventilator Mechanical Ventilator Mechanical Ventilator 05/18/18 23:05 74 17 30 05/18/18 21:30 73 16 30 05/18/18 20:00 Mechanical Ventilator Mechanical Ventilator Mechanical Ventilator 05/18/18 20:00 30 05/18/18 20:00 97.3 75 16 132/76 (94) 98 97.3 05/18/18 20:00 69 05/18/18 19:30 74 16 30 05/18/18 16:53 66 16 30 05/18/18 16:00 98.7 72 20 129/85 (100) 100 98.7 05/18/18 16:00 30 05/18/18 16:00 70 05/18/18 16:00 Mechanical Ventilator Mechanical Ventilator Mechanical Ventilator 05/18/18 15:05 64 16 30 05/18/18 12:30 61 16 30 05/18/18 12:06 97.5 63 18 123/71 (88) 100 97.5 05/18/18 12:05 Mechanical Ventilator Mechanical Ventilator Mechanical Ventilator 05/18/18 12:00 30 05/18/18 12:00 65 05/18/18 11:11 64 16 30 05/18/18 09:05 65 16 30 Intake and Output 05/18/18 05/19/18 19:00 07:00 Intake Total 1565.000 ml 1025 ml Output Total 1225 ml 2195 ml Balance 340.000 ml -1170 ml Free Water 400 ml 250 ml IV Total 385.000 ml 60 ml Tube Feeding 780 ml 715 ml Output Urine Total 875 ml 2000 ml Stool Total 300 ml Chest Tube Drainage Total 50 ml 195 ml Laboratory Tests 05/18/18 21:25: Vancomycin Level Trough 25.7H 05/19/18 04:30: Sodium Level 135L, Potassium Level 3.8, Chloride Level 103, Carbon Dioxide Level 21, Anion Gap 11, Blood Urea Nitrogen 6L, Creatinine 0.9, Estimat Glomerular Filtration Rate > 60, Glucose Level 172H, Calcium Level 9.1 Height (Feet): 6 Weight (Pounds): 209 General Appearance: WD/WN, no apparent distress EENT: PERRL/EOMI Neck: non-tender, normal alignment Cardiovascular: normal peripheral pulses, normal rate Respiratory/Chest: crackles/rales Abdomen: normal bowel sounds, non tender, soft Edema: no edema noted Arm (L), no edema noted Arm (R), no edema noted Leg (L), no edema noted Leg (R), no edema noted Pedal (L), no edema noted Pedal (R), no edema noted Generalized Mir Gann M.D. May 19, 2018 09:02
[2018-05-19 12:00] VITALS: BP 128/76
--- NOTE | 2018-05-19 12:29 | General Surgery Progress Note ---
General Surgery-Progress Note Subjective Additional Comments no acute events. comfortable. stoma functional and healthy Objective Last 24 Hour Vital Signs Date Time Temp Pulse Resp B/P (MAP) Pulse Ox O2 Delivery O2 Flow Rate FiO2 05/19/18 11:13 70 16 30 05/19/18 09:28 73 16 30 05/19/18 08:00 30 05/19/18 08:00 Mechanical Ventilator Mechanical Ventilator Mechanical Ventilator 05/19/18 08:00 64 05/19/18 07:29 73 18 30 05/19/18 05:20 71 22 30 05/19/18 04:00 Mechanical Ventilator Mechanical Ventilator Mechanical Ventilator 05/19/18 04:00 97.5 70 16 143/90 (107) 100 97.5 05/19/18 04:00 71 05/19/18 04:00 30 05/19/18 03:18 70 19 30 05/19/18 01:30 72 16 30 05/19/18 00:00 97.7 75 16 136/80 (98) 99 97.7 05/19/18 00:00 75 05/19/18 00:00 30 05/19/18 00:00 Mechanical Ventilator Mechanical Ventilator Mechanical Ventilator 05/18/18 23:05 74 17 30 05/18/18 21:30 73 16 30 05/18/18 20:00 Mechanical Ventilator Mechanical Ventilator Mechanical Ventilator 05/18/18 20:00 30 05/18/18 20:00 97.3 75 16 132/76 (94) 98 97.3 05/18/18 20:00 69 05/18/18 19:30 74 16 30 05/18/18 16:53 66 16 30 05/18/18 16:00 98.7 72 20 129/85 (100) 100 98.7 05/18/18 16:00 30 05/18/18 16:00 70 05/18/18 16:00 Mechanical Ventilator Mechanical Ventilator Mechanical Ventilator 05/18/18 15:05 64 16 30 05/18/18 12:30 61 16 30 I&O Intake and Output 05/18/18 05/19/18 19:00 07:00 Intake Total 1565.000 ml 1025 ml Output Total 1225 ml 2195 ml Balance 340.000 ml -1170 ml Free Water 400 ml 250 ml IV Total 385.000 ml 60 ml Tube Feeding 780 ml 715 ml Output Urine Total 875 ml 2000 ml Stool Total 300 ml Chest Tube Drainage Total 50 ml 195 ml Wound: clean Drains: none Cardiovascular: RSR Respiratory: clear Abdomen: soft, flat, non-tender, present bowel sounds, other - stoma clean and viable Extremities: no cyanosis Laboratory Tests Test 05/18/18 21:25 05/19/18 04:30 Vancomycin Level Trough 25.7 ug/mL (5.0-12.0) H Sodium Level 135 MMOL/L (136-145) L Potassium Level 3.8 MMOL/L (3.5-5.1) Chloride Level 103 MMOL/L (98-107) Carbon Dioxide Level 21 MMOL/L (21-32) Anion Gap 11 mmol/L (5-15) Blood Urea Nitrogen 6 mg/dL (7-18) L Creatinine 0.9 MG/DL (0.55-1.30) Estimat Glomerular Filtration Rate > 60 mL/min (>60) Glucose Level 172 MG/DL (74-106) H Calcium Level 9.1 MG/DL (8.5-10.1) Plan Problems: (1) Stoma malfunction (2) Parastomal hernia Assessment & Plan: 52M with history of prior loop colostomy. proximal loop stable. distal with impacted contrast stool but stable. parastomal hernia with small bowel contents in hernia. no obstruction noted at this time. larger appearance of patients stoma is because location and use of loop colostomy in hepatic flexure. it is otherwise viable and stable. Would Highly recommend fixing parastomal hernia but can be done electively. if obstructs will need urgent repair. currently non obstructive will monitor and follow with recs. bowel care thank you for this consultation. (3) Severe sepsis Tino Mancilla May 19, 2018 12:29
[2018-05-19] MEDS: Ertapenem 1 GM in NS 55 ML IVPB SCH (14:01)
--- NOTE | 2018-05-19 15:25 | General Progress Note ---
Assessment/Plan Assessment/Plan Assessment (1) Parastomal hernia ICD Codes: K43.5 - Parastomal hernia without obstruction or gangrene SNOMED: 676147380 Qualifiers: Qualified Codes: K43.5 - Parastomal hernia without obstruction or gangrene (2) Stoma malfunction SNOMED: 958798793 (3) Colostomy in place ICD Codes: Z93.3 - Colostomy status SNOMED: 621862762, 153084981 (4) Vegetative state / Dysphagia / G tube dependent ICD Codes: R40.3 - Persistent vegetative state SNOMED: 71104758 (5) Diabetes mellitus ICD Codes: E11.9 - Type 2 diabetes mellitus without complications SNOMED: 71001632 (6) Acute on chronic respiratory failure ICD Codes: J96.20 - Acute and chronic respiratory failure, unspecified whether with hypoxia or hypercapnia SNOMED: 53790872 (7) Severe sepsis ICD Codes: A41.9 - Sepsis, unspecified organism; R65.20 - Severe sepsis without septic shock SNOMED: 47401565 Assessment/Plan prolapse stoma assessed >> no s/sx of infection. no obstruction. anemia work up reviewed >> iron deficiency G tube dependent hepatitis panel negative OB negative supportive care monitor H&H, prn transfusions venofer ppi GTFs per RD, adv to goal GT site care daily/prn abx bowel regime fu labs Subjective Allergies: Coded Allergies: AZTREONAM (Verified Allergy, Unknown, 05/13/18) Subjective No significant evnets non communicative on trach tolerating TF Objective Last 24 Hour Vital Signs Date Time Temp Pulse Resp B/P (MAP) Pulse Ox O2 Delivery O2 Flow Rate FiO2 05/19/18 15:16 72 16 30 05/19/18 12:44 71 16 30 05/19/18 12:00 67 05/19/18 12:00 Mechanical Ventilator Mechanical Ventilator Mechanical Ventilator 05/19/18 12:00 30 05/19/18 11:13 70 16 30 05/19/18 09:28 73 16 30 05/19/18 08:00 30 05/19/18 08:00 Mechanical Ventilator Mechanical Ventilator Mechanical Ventilator 05/19/18 08:00 64 05/19/18 07:29 73 18 30 05/19/18 05:20 71 22 30 05/19/18 04:00 Mechanical Ventilator Mechanical Ventilator Mechanical Ventilator 05/19/18 04:00 97.5 70 16 143/90 (107) 100 97.5 05/19/18 04:00 71 05/19/18 04:00 30 05/19/18 03:18 70 19 30 05/19/18 01:30 72 16 30 05/19/18 00:00 97.7 75 16 136/80 (98) 99 97.7 05/19/18 00:00 75 05/19/18 00:00 30 05/19/18 00:00 Mechanical Ventilator Mechanical Ventilator Mechanical Ventilator 05/18/18 23:05 74 17 30 05/18/18 21:30 73 16 30 05/18/18 20:00 Mechanical Ventilator Mechanical Ventilator Mechanical Ventilator 05/18/18 20:00 30 05/18/18 20:00 97.3 75 16 132/76 (94) 98 97.3 05/18/18 20:00 69 05/18/18 19:30 74 16 30 05/18/18 16:53 66 16 30 05/18/18 16:00 98.7 72 20 129/85 (100) 100 98.7 05/18/18 16:00 30 05/18/18 16:00 70 05/18/18 16:00 Mechanical Ventilator Mechanical Ventilator Mechanical Ventilator Intake and Output 05/18/18 05/19/18 19:00 07:00 Intake Total 1565.000 ml 1025 ml Output Total 1225 ml 2195 ml Balance 340.000 ml -1170 ml Free Water 400 ml 250 ml IV Total 385.000 ml 60 ml Tube Feeding 780 ml 715 ml Output Urine Total 875 ml 2000 ml Stool Total 300 ml Chest Tube Drainage Total 50 ml 195 ml Laboratory Tests 05/18/18 21:25: Vancomycin Level Trough 25.7H 05/19/18 04:30: Sodium Level 135L, Potassium Level 3.8, Chloride Level 103, Carbon Dioxide Level 21, Anion Gap 11, Blood Urea Nitrogen 6L, Creatinine 0.9, Estimat Glomerular Filtration Rate > 60, Glucose Level 172H, Calcium Level 9.1 Height (Feet): 6 Weight (Pounds): 209 Objective Obese AA man NCAT neck (+) trach Chest Coarse BS RRR abd obese, (+) R sided ostomy and L sided GT (+) contractures OBS Lupe Parrish MD May 19, 2018 15:25
[2018-05-19 16:00] VITALS: BP 123/82
[2018-05-19] MEDS ORDERED: Tubing IV Secondary IV ONE (16:01)
[2018-05-19] MEDS ORDERED: NS 275ml ONE (16:01)
[2018-05-19] MEDS ORDERED: Sterile Water Irrig 1000ml IRRIG ONE (16:01)
--- NOTE | 2018-05-19 16:22 | General Progress Note ---
Assessment/Plan Status: stable Assessment/Plan # Anemia of chronic disease. No hemolysis, peripheral smear reviewed, ferritin is elevated --> Continue to closely monitor for improvement. --> Anemia w/u has been reviewed. Will trend cbc daily. --> Hgb goal >7 # Leukocytosis - Sepsis with elevated temperature of 103 degrees Fahrenheit. --> Lactic acid pending, was elevated upon admission. --> Pt on antibiotics, has received a dose of Zosyn and currently is on vancomycin q.12 h. --> Currently afebrile. --> Appreciate Infectious Disease consult. # Acute kidney injury. --> Currently on IV fluids, IV bolus given to see if the patient responds along with IV pressor as needed. --> Closely monitor with Nephrology team. # Septic shock, use antibiotic per ID services. --> potential pna, bacteremia # Respiratory failure, status post tracheostomy, on mechanical ventilation per Dr. Goetz. # Hypercalcemia. Monitor PTH and calcium level The time the note was entered does not necessarily correspond to the time the patient was seen. Subjective Date patient seen: May 19, 2018 ROS Limited/Unobtainable: Yes Hematologic/Lymphatic: Reports: anemia Allergies: Coded Allergies: AZTREONAM (Verified Allergy, Unknown, 05/13/18) All Systems: reviewed and negative except above Subjective Pt remains obtunded, on trach/vent. No acute events. H/H stable. Objective Last 24 Hour Vital Signs Date Time Temp Pulse Resp B/P (MAP) Pulse Ox O2 Delivery O2 Flow Rate FiO2 05/19/18 15:16 72 16 30 05/19/18 12:44 71 16 30 05/19/18 12:00 67 05/19/18 12:00 Mechanical Ventilator Mechanical Ventilator Mechanical Ventilator 05/19/18 12:00 30 05/19/18 11:13 70 16 30 05/19/18 09:28 73 16 30 05/19/18 08:00 30 05/19/18 08:00 Mechanical Ventilator Mechanical Ventilator Mechanical Ventilator 05/19/18 08:00 64 05/19/18 07:29 73 18 30 05/19/18 05:20 71 22 30 05/19/18 04:00 Mechanical Ventilator Mechanical Ventilator Mechanical Ventilator 05/19/18 04:00 97.5 70 16 143/90 (107) 100 97.5 05/19/18 04:00 71 05/19/18 04:00 30 05/19/18 03:18 70 19 30 05/19/18 01:30 72 16 30 05/19/18 00:00 97.7 75 16 136/80 (98) 99 97.7 05/19/18 00:00 75 05/19/18 00:00 30 05/19/18 00:00 Mechanical Ventilator Mechanical Ventilator Mechanical Ventilator 05/18/18 23:05 74 17 30 05/18/18 21:30 73 16 30 05/18/18 20:00 Mechanical Ventilator Mechanical Ventilator Mechanical Ventilator 05/18/18 20:00 30 05/18/18 20:00 97.3 75 16 132/76 (94) 98 97.3 05/18/18 20:00 69 05/18/18 19:30 74 16 30 05/18/18 16:53 66 16 30 Intake and Output 05/18/18 05/19/18 19:00 07:00 Intake Total 1565.000 ml 1025 ml Output Total 1225 ml 2195 ml Balance 340.000 ml -1170 ml Free Water 400 ml 250 ml IV Total 385.000 ml 60 ml Tube Feeding 780 ml 715 ml Output Urine Total 875 ml 2000 ml Stool Total 300 ml Chest Tube Drainage Total 50 ml 195 ml Laboratory Tests 05/18/18 21:25: Vancomycin Level Trough 25.7H 05/19/18 04:30: Sodium Level 135L, Potassium Level 3.8, Chloride Level 103, Carbon Dioxide Level 21, Anion Gap 11, Blood Urea Nitrogen 6L, Creatinine 0.9, Estimat Glomerular Filtration Rate > 60, Glucose Level 172H, Calcium Level 9.1 Height (Feet): 6 Weight (Pounds): 209 General Appearance: no apparent distress, lethargic EENT: PERRL/EOMI Neck: normal alignment Cardiovascular: normal peripheral pulses Respiratory/Chest: no respiratory distress Abdomen: soft Jimmy Fleming MD May 19, 2018 16:22
[2018-05-19 20:00] VITALS: BP 135/80
[2018-05-19] MEDS: Dyna-Hex 2% Top Sol 2oz TOPIC SCH (21:00)
[2018-05-19] MEDS: Iron Sucrose 100 MG in NS 55 ML IV SCH (21:01)
[2018-05-19] MEDS: Miralax 17gm pkt ORAL SCH (21:01)
[2018-05-20] VITALS: BP 137/73
[2018-05-20] MEDS: NovoLOG Insulin Flexpen SUBQ SCH ×5 (00:21→21:19)
[2018-05-20 04:00] VITALS: BP 142/77
[2018-05-20 05:27] LABS: BASOPHILS % (AUTO) 0.8 % (0.0-2.0); EOSINOPHILS % (AUTO) 6.6 % (0.0-3.0); HEMATOCRIT 38.4 % (42.0-52.0); HEMOGLOBIN 12.2 G/DL (14.2-18.0); LYMPHOCYTES % (AUTO) 24.1 % (20.0-45.0); MEAN CORPUSCULAR VOLUME 85 FL (80-99); NEUTROPHILS % (AUTO) 65.5 % (45.0-75.0); PLATELET COUNT 244 K/UL (150-450); RED BLOOD COUNT 4.52 M/UL (4.70-6.10); RED CELL DISTRIBUTION WIDTH 14.2 % (11.6-14.8); WHITE BLOOD COUNT 10.9 K/UL (4.8-10.8)
[2018-05-20 05:41] LABS: ANION GAP 12 mmol/L (5-15); BLOOD UREA NITROGEN 7 mg/dL (7-18); CALCIUM 9.9 MG/DL (8.5-10.1); CARBON DIOXIDE 22 MMOL/L (21-32); CHLORIDE 101 MMOL/L (98-107); CREATININE 0.9 MG/DL (0.55-1.30); POTASSIUM 3.9 MMOL/L (3.5-5.1); SODIUM 135 MMOL/L (136-145)
[2018-05-20] MEDS: Vancomycin 1 GM in D5W 275 ML IVPB SCH (05:49)
[2018-05-20] MEDS: levETIRAcetam 500mg/5ml Liquid GT SCH ×3 (05:49→21:12)
[2018-05-20 08:00] VITALS: BP 128/73
--- NOTE | 2018-05-20 08:20 | Nephrology Progress Note ---
Assessment/Plan Assessment/Plan 1. DIVYA- resolved, Cr normal 2. Septis- resolved on Abx 3. Chronic Resp FL- trached on vent 4. Hyponatremia - stable at 135. Avoid excess free water with Abx while on Keppra (SIADH) 5. SZ- Keppra Subjective Date patient seen: May 20, 2018 Time patient seen: 08:19 ROS Limited/Unobtainable: Yes Allergies: Coded Allergies: AZTREONAM (Verified Allergy, Unknown, 05/13/18) All Systems: reviewed and negative except above Subjective Patient trached/vent. Objective Last 24 Hour Vital Signs Date Time Temp Pulse Resp B/P (MAP) Pulse Ox O2 Delivery O2 Flow Rate FiO2 05/20/18 08:00 98.3 80 16 128/73 (91) 99 98.3 05/20/18 08:00 Mechanical Ventilator Mechanical Ventilator Mechanical Ventilator 05/20/18 08:00 30 05/20/18 06:39 78 17 30 05/20/18 05:14 70 16 30 05/20/18 04:00 Mechanical Ventilator Mechanical Ventilator Mechanical Ventilator 05/20/18 04:00 30 05/20/18 04:00 71 05/20/18 04:00 98.3 71 17 142/77 (98) 99 98.3 05/20/18 03:30 72 16 30 05/20/18 01:30 71 15 30 05/20/18 00:00 Mechanical Ventilator Mechanical Ventilator Mechanical Ventilator 05/20/18 00:00 71 05/20/18 00:00 98.1 71 16 137/73 (94) 100 98.1 05/20/18 00:00 30 05/19/18 23:13 74 16 30 05/19/18 21:30 70 22 30 05/19/18 20:00 97.0 68 17 135/80 (98) 98 97.0 05/19/18 20:00 65 05/19/18 20:00 30 05/19/18 20:00 Mechanical Ventilator Mechanical Ventilator Mechanical Ventilator 05/19/18 19:30 72 20 30 05/19/18 17:16 74 16 30 05/19/18 16:00 66 05/19/18 16:00 Mechanical Ventilator Mechanical Ventilator Mechanical Ventilator 05/19/18 16:00 97.2 68 16 123/82 (96) 100 97.2 05/19/18 16:00 30 05/19/18 15:16 72 16 30 05/19/18 12:44 71 16 30 05/19/18 12:00 97.3 68 18 128/76 (93) 95 97.3 05/19/18 12:00 67 05/19/18 12:00 Mechanical Ventilator Mechanical Ventilator Mechanical Ventilator 05/19/18 12:00 30 05/19/18 11:13 70 16 30 05/19/18 09:28 73 16 30 Intake and Output 05/19/18 05/20/18 19:00 07:00 Intake Total 1170 ml 875 ml Output Total 1950 ml 1225 ml Balance -780 ml -350 ml Free Water 280 ml IV Total 110 ml 60 ml Tube Feeding 780 ml 715 ml Other 100 ml Output Urine Total 1550 ml 1000 ml Stool Total 400 ml 225 ml Laboratory Tests 05/20/18 05:00: White Blood Count 10.9H, Red Blood Count 4.52L, Hemoglobin 12.2L, Hematocrit 38.4L, Mean Corpuscular Volume 85, Mean Corpuscular Hemoglobin 26.9L, Mean Corpuscular Hemoglobin Concent 31.7L, Red Cell Distribution Width 14.2, Platelet Count 244, Mean Platelet Volume 8.3, Neutrophils (%) (Auto) 65.5, Lymphocytes (%) (Auto) 24.1, Monocytes (%) (Auto) 3.0, Eosinophils (%) (Auto) 6.6H, Basophils (%) (Auto) 0.8, Sodium Level 135L, Potassium Level 3.9, Chloride Level 101, Carbon Dioxide Level 22, Anion Gap 12, Blood Urea Nitrogen 7 , Creatinine 0.9, Estimat Glomerular Filtration Rate > 60, Glucose Level 137H, Calcium Level 9.9 Height (Feet): 6 Weight (Pounds): 210 General Appearance: WD/WN, no apparent distress EENT: PERRL/EOMI Neck: non-tender, normal alignment Cardiovascular: normal rate, regular rhythm Respiratory/Chest: rhonchi - bilaterally Abdomen: normal bowel sounds, non tender, soft Edema: no edema noted Arm (L), no edema noted Arm (R), no edema noted Leg (L), no edema noted Leg (R), no edema noted Pedal (L), no edema noted Pedal (R), no edema noted Generalized Mir Gann M.D. May 20, 2018 08:20
[2018-05-20] MEDS: Heparin 5000 units/ml inj SUBQ SCH ×2 (08:24→21:14)
--- NOTE | 2018-05-20 09:23 | Infectious Diseases Prog Note ---
Assessment/Plan Assessment/Plan Sepsis, resolving- 2ry to UTI and Bacteremia- ?pyelo. Possible PNA -u/a wbc 40-60, nit neg, leuk +2; ucx >100k E. aerogenes (S cefepime, cipro/ levo; R Zosyn) -BCX 01/23 E. aerogenes, prob Amp C (S cefepime, cipro/levo; R Zosyn), P. mirabilis ESBL (S Zosyn, Ertapenem); repeta 05/16 10/25 CoNS (suspect contaminant) , 05/18 Staph f/u final results if CoNS may need TTE and IE work up. -CXR 05/17: Increased left pleural effusion, over 3 days. Overall decreased interstitial congestion. Right infrahilar atelectasis -CXR: Cardiomegaly. Mild interstitial congestion. Suspect small bilateral pleural effusions -CT abd/p: Right lower quadrant double barrel colostomy, as described. Small peristomal hernia contains bowel loops without evidence of obstruction or strangulation. Left renal staghorn calculus. Bilateral intrarenal calyceal calculi. Borderline hydronephrosis on the right without evidence of downstream obstructive lesion. May indicate mild ureteral pelvic junction obstruction. Somewhat atrophic left kidney. Inspissated contrast ball within the distal sigmoid colon. Gastrostomy in good position. Nonspecific bilateral perinephric fat stranding, could indicate pyelonephritis or could be chronic. Newberry catheter in place. Apparent bladder wall thickening, possibly an artifact of under distention but cystitis is not excludable, particularly in view of mild perivesical fat stranding. Bilateral pulmonary parenchymal atelectasis and consolidation -sp cx p Fever/Leukocytosis; resolved (mild Leukocytosis today) DIVYA, improving Lactic acidosis, resolved chronic resp failure trach/vent dependant BPH GERD HTN DM2 seizure disorder colostomy s/p GT constipation VRE and MRSA colonized Plan: -Cotninue empiric IV Vancomycin #5 for now pending ID repeat Bcx -Continue Ertapenem #2/10 for Amp-C Enterobacter and ESBL P.mirabilis bacteremia ; will treat for 10-14 days -05/17 SP Zosyn #4 -Repeat 2 sets of Bcx for 05/20/18 -f/u 05/18 Bcx -Monitor CBC/CMP, temperatures Thank you for this consultation. Will continue to follow along with you. Subjective Allergies: Coded Allergies: AZTREONAM (Verified Allergy, Unknown, 05/13/18) Subjective Patient PEG and Trached On Vent. 30% O2 and PEEP of 5 Objective Vital Signs Last 24 Hour Vital Signs Date Time Temp Pulse Resp B/P (MAP) Pulse Ox O2 Delivery O2 Flow Rate FiO2 05/20/18 09:11 82 16 30 05/20/18 08:00 98.3 80 16 128/73 (91) 99 98.3 05/20/18 08:00 Mechanical Ventilator Mechanical Ventilator Mechanical Ventilator 05/20/18 08:00 30 05/20/18 07:42 79 05/20/18 06:39 78 17 30 05/20/18 05:14 70 16 30 05/20/18 04:00 Mechanical Ventilator Mechanical Ventilator Mechanical Ventilator 05/20/18 04:00 30 05/20/18 04:00 71 05/20/18 04:00 98.3 71 17 142/77 (98) 99 98.3 05/20/18 03:30 72 16 30 05/20/18 01:30 71 15 30 05/20/18 00:00 Mechanical Ventilator Mechanical Ventilator Mechanical Ventilator 05/20/18 00:00 71 05/20/18 00:00 98.1 71 16 137/73 (94) 100 98.1 05/20/18 00:00 30 05/19/18 23:13 74 16 30 05/19/18 21:30 70 22 30 05/19/18 20:00 97.0 68 17 135/80 (98) 98 97.0 05/19/18 20:00 65 05/19/18 20:00 30 05/19/18 20:00 Mechanical Ventilator Mechanical Ventilator Mechanical Ventilator 05/19/18 19:30 72 20 30 05/19/18 17:16 74 16 30 05/19/18 16:00 66 05/19/18 16:00 Mechanical Ventilator Mechanical Ventilator Mechanical Ventilator 05/19/18 16:00 97.2 68 16 123/82 (96) 100 97.2 05/19/18 16:00 30 05/19/18 15:16 72 16 30 05/19/18 12:44 71 16 30 05/19/18 12:00 97.3 68 18 128/76 (93) 95 97.3 05/19/18 12:00 67 7/29/18 12:00 Mechanical Ventilator Mechanical Ventilator Mechanical Ventilator 05/19/18 12:00 30 05/19/18 11:13 70 16 30 05/19/18 09:28 73 16 30 Height (Feet): 6 Weight (Pounds): 210 Objective GENERAL: The patient is asleep, in no overt distress. Opens eyes HEENT: Extraocular muscles intact. No lymphadenopathy noted. Tracheostomy noted. PULM: CTAB CARDIOVASCULAR: RRR, S1 and S2. Tachycardic. No rubs or gallops. PULMONARY: Mild diffuse expiratory rhonchi with basilar rales. ABDOMEN: Obese and nondistended. The G-tube and stoma noted. EXTREMITIES: No edema. Fair pedal pulses. Microbiology Date/Time Source Procedure Growth Status 05/18/18 16:30 Blood Blood Culture - Preliminary NO GROWTH AFTER 24 HOURS Resulted 05/18/18 13:25 Blood Blood Culture - Preliminary Gram Positive Cocci Resulted Laboratory Tests Test 05/20/18 05:00 White Blood Count 10.9 K/UL (4.8-10.8) H Red Blood Count 4.52 M/UL (4.70-6.10) L Hemoglobin 12.2 G/DL (14.2-18.0) L Hematocrit 38.4 % (42.0-52.0) L Mean Corpuscular Volume 85 FL (80-99) Mean Corpuscular Hemoglobin 26.9 PG (27.0-31.0) L Mean Corpuscular Hemoglobin Concent 31.7 G/DL (32.0-36.0) L Red Cell Distribution Width 14.2 % (11.6-14.8) Platelet Count 244 K/UL (150-450) Mean Platelet Volume 8.3 FL (6.5-10.1) Neutrophils (%) (Auto) 65.5 % (45.0-75.0) Lymphocytes (%) (Auto) 24.1 % (20.0-45.0) Monocytes (%) (Auto) 3.0 % (1.0-10.0) Eosinophils (%) (Auto) 6.6 % (0.0-3.0) H Basophils (%) (Auto) 0.8 % (0.0-2.0) Sodium Level 135 MMOL/L (136-145) L Potassium Level 3.9 MMOL/L (3.5-5.1) Chloride Level 101 MMOL/L (98-107) Carbon Dioxide Level 22 MMOL/L (21-32) Anion Gap 12 mmol/L (5-15) Blood Urea Nitrogen 7 mg/dL (7-18) Creatinine 0.9 MG/DL (0.55-1.30) Estimat Glomerular Filtration Rate > 60 mL/min (>60) Glucose Level 137 MG/DL (74-106) H Calcium Level 9.9 MG/DL (8.5-10.1) Current Medications Medications (Trade) Dose Ordered Sig/Va Route PRN Reason Start Time Stop Time Status Last Admin Dose Admin Acetaminophen (Tylenol) 650 mg Q4H PRN ORAL FEVER 05/16/18 14:00 06/13/18 09:59 Baclofen (Lioresal) 10 mg THREE TIMES A DAY GT 05/16/18 13:00 06/13/18 12:59 05/20/18 08:22 Chlorhexidine Gluconate (Rebecca-Hex 2%) 1 applic DAILY@2000 TOPIC 05/16/18 20:00 06/13/18 19:59 05/19/18 21:00 Dextrose (Dextrose 50%) 25 ml STAT PRN IV Hypoglycemia 05/17/18 08:45 06/14/18 08:44 Dextrose (Dextrose 50%) 50 ml STAT PRN IV Hypoglycemia 05/17/18 08:45 06/14/18 08:44 Ertapenem 1 gm/ Sodium Chloride 55 ml @ 110 mls/hr Q24H IVPB 05/17/18 15:00 05/22/18 14:59 05/19/18 14:01 Heparin Sodium (Porcine) (Heparin 5000 units/ml) 5,000 units EVERY 12 HOURS SUBQ 05/16/18 21:00 06/13/18 20:59 05/20/18 08:24 Insulin Aspart (NovoLOG) Q6HR SUBQ 05/16/18 18:00 06/14/18 11:29 05/20/18 05:51 Iron Sucrose 100 mg/Sodium Chloride 60 ml @ 240 mls/hr BEDTIME IV 05/16/18 21:00 05/20/18 21:14 05/19/18 21:01 Lansoprazole (Prevacid) 30 mg DAILY GT 05/17/18 09:00 06/15/18 08:59 05/20/18 08:21 Levetiracetam (Keppra) 1,000 mg Q8HR GT 05/16/18 14:00 06/13/18 12:59 05/20/18 05:49 Lorazepam (Ativan 2mg/ml 1ml) 2 mg Q2H PRN IV For Anxiety 05/16/18 12:00 05/21/18 09:59 Morphine Sulfate (Morphine Sulfate) 4 mg Q4H PRN IVP Severe Pain (Pain Scale 7-10) 05/16/18 14:00 05/21/18 09:59 Ondansetron HCl (Zofran) 4 mg Q6H PRN IVP Nausea & Vomiting 05/16/18 16:00 06/13/18 09:59 Polyethylene Glycol (Miralax) 17 gm BEDTIME ORAL 05/16/18 21:00 06/14/18 20:59 05/19/18 21:01 Vancomycin HCl (Vanco rx to dose) 1 ea DAILY PRN MISC PER RX PROTOCOL 05/18/18 13:15 06/17/18 13:14 Vancomycin HCl 1 gm/Dextrose 275 ml @ 183.708 mls/hr Q12H IVPB 05/19/18 06:00 05/24/18 05:59 05/20/18 05:49 Kali Richter M.D. May 20, 2018 09:23
--- NOTE | 2018-05-20 11:34 | Pulmonolgy Critical Care Note ---
Critical Care - Asmt/Plan Problems: (1) Acute on chronic respiratory failure (2) Acute on chronic renal insufficiency (3) Severe sepsis (4) Vegetative state (5) Colostomy in place (6) Diabetes mellitus Respiratory: monitor respiratory rate, adjust FIO2, CXR Cardiac: continue to monitor HR/BP Renal: F/U I&O, keep IV fluid Infectious Disease: check cultures Gastrointestinal: continue feedings/current rate Endocrine: monitor blood sugar, check TSH Neurologic: PRN Ativan, PRN Morphine Affect: PRN ativan Notes Reviewed: renal Discussed with: nurses, consultants, egg caserpaid search manager - Objective Last 24 Hour Vital Signs Date Time Temp Pulse Resp B/P (MAP) Pulse Ox O2 Delivery O2 Flow Rate FiO2 05/20/18 10:36 80 16 30 05/20/18 09:11 82 16 30 05/20/18 08:00 98.3 80 16 128/73 (91) 99 98.3 05/20/18 08:00 Mechanical Ventilator Mechanical Ventilator Mechanical Ventilator 05/20/18 08:00 30 05/20/18 07:42 79 05/20/18 06:39 78 17 30 05/20/18 05:14 70 16 30 05/20/18 04:00 Mechanical Ventilator Mechanical Ventilator Mechanical Ventilator 05/20/18 04:00 30 05/20/18 04:00 71 05/20/18 04:00 98.3 71 17 142/77 (98) 99 98.3 05/20/18 03:30 72 16 30 05/20/18 01:30 71 15 30 05/20/18 00:00 Mechanical Ventilator Mechanical Ventilator Mechanical Ventilator 05/20/18 00:00 71 05/20/18 00:00 98.1 71 16 137/73 (94) 100 98.1 05/20/18 00:00 30 05/19/18 23:13 74 16 30 05/19/18 21:30 70 22 30 05/19/18 20:00 97.0 68 17 135/80 (98) 98 97.0 05/19/18 20:00 65 05/19/18 20:00 30 05/19/18 20:00 Mechanical Ventilator Mechanical Ventilator Mechanical Ventilator 05/19/18 19:30 72 20 30 05/19/18 17:16 74 16 30 05/19/18 16:00 66 05/19/18 16:00 Mechanical Ventilator Mechanical Ventilator Mechanical Ventilator 05/19/18 16:00 97.2 68 16 123/82 (96) 100 97.2 05/19/18 16:00 30 05/19/18 15:16 72 16 30 05/19/18 12:44 71 16 30 05/19/18 12:00 97.3 68 18 128/76 (93) 95 97.3 05/19/18 12:00 67 05/19/18 12:00 Mechanical Ventilator Mechanical Ventilator Mechanical Ventilator 05/19/18 12:00 30 Status: awake Condition: critical Neck: full ROM Heart: HR/BP stable, HR/BP unstable Abdomen: non-tender, feeding tube Extremities: edema Decubiti: location Micro: Microbiology Date/Time Source Procedure Growth Status 05/18/18 16:30 Blood Blood Culture - Preliminary NO GROWTH AFTER 24 HOURS Resulted 05/18/18 13:25 Blood Blood Culture - Preliminary Gram Positive Cocci Resulted Accucheck: 133 Critical Care - Subjective ROS Limited/Unobtainable: No Condition: critical EKG Rhythm: Sinus Bradycardia FI02: 30 Vent Support Breath Rate: 16 Vent Support Mode: AC Vent Tidal Volume: 600 Sputum Amount: Small PEEP: 5.0 PIP: 31 Tube Feeding Amount: 65 I&O: Intake and Output 05/19/18 05/20/18 19:00 07:00 Intake Total 1170 ml 875 ml Output Total 1950 ml 1225 ml Balance -780 ml -350 ml Free Water 280 ml IV Total 110 ml 60 ml Tube Feeding 780 ml 715 ml Other 100 ml Output Urine Total 1550 ml 1000 ml Stool Total 400 ml 225 ml Labs: Laboratory Tests Test 05/20/18 05:00 White Blood Count 10.9 K/UL (4.8-10.8) H Red Blood Count 4.52 M/UL (4.70-6.10) L Hemoglobin 12.2 G/DL (14.2-18.0) L Hematocrit 38.4 % (42.0-52.0) L Mean Corpuscular Volume 85 FL (80-99) Mean Corpuscular Hemoglobin 26.9 PG (27.0-31.0) L Mean Corpuscular Hemoglobin Concent 31.7 G/DL (32.0-36.0) L Red Cell Distribution Width 14.2 % (11.6-14.8) Platelet Count 244 K/UL (150-450) Mean Platelet Volume 8.3 FL (6.5-10.1) Neutrophils (%) (Auto) 65.5 % (45.0-75.0) Lymphocytes (%) (Auto) 24.1 % (20.0-45.0) Monocytes (%) (Auto) 3.0 % (1.0-10.0) Eosinophils (%) (Auto) 6.6 % (0.0-3.0) H Basophils (%) (Auto) 0.8 % (0.0-2.0) Sodium Level 135 MMOL/L (136-145) L Potassium Level 3.9 MMOL/L (3.5-5.1) Chloride Level 101 MMOL/L (98-107) Carbon Dioxide Level 22 MMOL/L (21-32) Anion Gap 12 mmol/L (5-15) Blood Urea Nitrogen 7 mg/dL (7-18) Creatinine 0.9 MG/DL (0.55-1.30) Estimat Glomerular Filtration Rate > 60 mL/min (>60) Glucose Level 137 MG/DL (74-106) H Calcium Level 9.9 MG/DL (8.5-10.1) Nico Goetz MD May 20, 2018 11:34
[2018-05-20 12:00] VITALS: BP 119/74
--- NOTE | 2018-05-20 12:19 | GI Progress Note ---
Assessment/Plan Problems: (1) Parastomal hernia ICD Codes: K43.5 - Parastomal hernia without obstruction or gangrene SNOMED: 684777626 Qualifiers: Qualified Codes: K43.5 - Parastomal hernia without obstruction or gangrene (2) Stoma malfunction SNOMED: 747597692 (3) Colostomy in place ICD Codes: Z93.3 - Colostomy status SNOMED: 244589850, 213307390 (4) Vegetative state ICD Codes: R40.3 - Persistent vegetative state SNOMED: 75518597 (5) Diabetes mellitus ICD Codes: E11.9 - Type 2 diabetes mellitus without complications SNOMED: 43667887 (6) Acute on chronic respiratory failure ICD Codes: J96.20 - Acute and chronic respiratory failure, unspecified whether with hypoxia or hypercapnia SNOMED: 47213512 (7) Severe sepsis ICD Codes: A41.9 - Sepsis, unspecified organism; R65.20 - Severe sepsis without septic shock SNOMED: 84863139 Status: stable, unchanged Status Narrative Discussed with Dr. Prater. Assessment/Plan prolapse stoma assessed >> no s/sx of infection. no obstruction. anemia work up reviewed >> iron deficiency G tube dependent hepatitis panel negative OB negative supportive care monitor H&H, prn transfusions venofer ppi GTFs per RD, adv to goal GT site care daily/prn abx bowel regime fu labs The patient was seen and examined at bedside and all new and available data was reviewed in the patients chart. I agree with the above findings, impression and plan. (Patient seen earlier today. Signature stamp does not reflect patient encounter time.). - Dae Prater MD Subjective Subjective limited Objective Last 24 Hour Vital Signs Date Time Temp Pulse Resp B/P (MAP) Pulse Ox O2 Delivery O2 Flow Rate FiO2 05/20/18 12:00 Mechanical Ventilator Mechanical Ventilator Mechanical Ventilator 05/20/18 12:00 30 05/20/18 10:36 80 16 30 05/20/18 09:11 82 16 30 05/20/18 08:00 98.3 80 16 128/73 (91) 99 98.3 05/20/18 08:00 Mechanical Ventilator Mechanical Ventilator Mechanical Ventilator 05/20/18 08:00 30 05/20/18 07:42 79 05/20/18 06:39 78 17 30 05/20/18 05:14 70 16 30 05/20/18 04:00 Mechanical Ventilator Mechanical Ventilator Mechanical Ventilator 05/20/18 04:00 30 05/20/18 04:00 71 05/20/18 04:00 98.3 71 17 142/77 (98) 99 98.3 05/20/18 03:30 72 16 30 05/20/18 01:30 71 15 30 05/20/18 00:00 Mechanical Ventilator Mechanical Ventilator Mechanical Ventilator 05/20/18 00:00 71 05/20/18 00:00 98.1 71 16 137/73 (94) 100 98.1 05/20/18 00:00 30 05/19/18 23:13 74 16 30 05/19/18 21:30 70 22 30 05/19/18 20:00 97.0 68 17 135/80 (98) 98 97.0 05/19/18 20:00 65 05/19/18 20:00 30 05/19/18 20:00 Mechanical Ventilator Mechanical Ventilator Mechanical Ventilator 05/19/18 19:30 72 20 30 05/19/18 17:16 74 16 30 05/19/18 16:00 66 05/19/18 16:00 Mechanical Ventilator Mechanical Ventilator Mechanical Ventilator 05/19/18 16:00 97.2 68 16 123/82 (96) 100 97.2 05/19/18 16:00 30 05/19/18 15:16 72 16 30 05/19/18 12:44 71 16 30 Intake and Output 05/19/18 05/20/18 19:00 07:00 Intake Total 1170 ml 875 ml Output Total 1950 ml 1225 ml Balance -780 ml -350 ml Free Water 280 ml IV Total 110 ml 60 ml Tube Feeding 780 ml 715 ml Other 100 ml Output Urine Total 1550 ml 1000 ml Stool Total 400 ml 225 ml Laboratory Tests Test 05/20/18 05:00 White Blood Count 10.9 K/UL (4.8-10.8) H Red Blood Count 4.52 M/UL (4.70-6.10) L Hemoglobin 12.2 G/DL (14.2-18.0) L Hematocrit 38.4 % (42.0-52.0) L Mean Corpuscular Volume 85 FL (80-99) Mean Corpuscular Hemoglobin 26.9 PG (27.0-31.0) L Mean Corpuscular Hemoglobin Concent 31.7 G/DL (32.0-36.0) L Red Cell Distribution Width 14.2 % (11.6-14.8) Platelet Count 244 K/UL (150-450) Mean Platelet Volume 8.3 FL (6.5-10.1) Neutrophils (%) (Auto) 65.5 % (45.0-75.0) Lymphocytes (%) (Auto) 24.1 % (20.0-45.0) Monocytes (%) (Auto) 3.0 % (1.0-10.0) Eosinophils (%) (Auto) 6.6 % (0.0-3.0) H Basophils (%) (Auto) 0.8 % (0.0-2.0) Sodium Level 135 MMOL/L (136-145) L Potassium Level 3.9 MMOL/L (3.5-5.1) Chloride Level 101 MMOL/L (98-107) Carbon Dioxide Level 22 MMOL/L (21-32) Anion Gap 12 mmol/L (5-15) Blood Urea Nitrogen 7 mg/dL (7-18) Creatinine 0.9 MG/DL (0.55-1.30) Estimat Glomerular Filtration Rate > 60 mL/min (>60) Glucose Level 137 MG/DL (74-106) H Calcium Level 9.9 MG/DL (8.5-10.1) Height (Feet): 6 Weight (Pounds): 210 General Appearance: WD/WN, no apparent distress, alert Cardiovascular: normal rate Respiratory/Chest: normal breath sounds, no respiratory distress Abdominal Exam: normal bowel sounds, non tender, soft, GT site - GT site, other - colostomy Extremities: non-tender Boyd Emmanuel [employer] May 20, 2018 12:19
--- NOTE | 2018-05-20 13:43 | General Progress Note ---
Assessment/Plan Status: stable Assessment/Plan # Anemia of chronic disease. No hemolysis, peripheral smear reviewed, ferritin is elevated. --> Continue to closely monitor for improvement. --> Anemia w/u has been reviewed. Will trend cbc daily. --> Hgb goal >7 # Leukocytosis - Sepsis with elevated temperature of 103 degrees Fahrenheit. --> Lactic acid pending, was elevated upon admission. --> Pt on antibiotics, has received a dose of Zosyn and currently is on vancomycin q.12 h. --> Currently afebrile. --> Appreciate Infectious Disease consult. # Acute kidney injury. --> Currently on IV fluids, IV bolus given to see if the patient responds along with IV pressor as needed. --> Closely monitor with Nephrology team. # Septic shock, use antibiotic per ID services. --> potential pna, bacteremia # Respiratory failure, status post tracheostomy, on mechanical ventilation per Dr. Goetz. # Hypercalcemia. Monitor PTH and calcium level The time the note was entered does not necessarily correspond to the time the patient was seen. Subjective Date patient seen: May 20, 2018 ROS Limited/Unobtainable: Yes Hematologic/Lymphatic: Reports: anemia Allergies: Coded Allergies: AZTREONAM (Verified Allergy, Unknown, 05/13/18) All Systems: reviewed and negative except above Subjective Pt remains obtunded, on trach/vent. No acute events. H/H stable. No recent seizure activity. Objective Last 24 Hour Vital Signs Date Time Temp Pulse Resp B/P (MAP) Pulse Ox O2 Delivery O2 Flow Rate FiO2 05/20/18 13:19 77 16 30 05/20/18 12:00 Mechanical Ventilator Mechanical Ventilator Mechanical Ventilator 05/20/18 12:00 30 05/20/18 12:00 98.6 82 16 119/74 (89) 98 98.6 05/20/18 11:44 82 05/20/18 10:36 80 16 30 05/20/18 09:11 82 16 30 05/20/18 08:00 98.3 80 16 128/73 (91) 99 98.3 05/20/18 08:00 Mechanical Ventilator Mechanical Ventilator Mechanical Ventilator 05/20/18 08:00 30 05/20/18 07:42 79 05/20/18 06:39 78 17 30 05/20/18 05:14 70 16 30 05/20/18 04:00 Mechanical Ventilator Mechanical Ventilator Mechanical Ventilator 05/20/18 04:00 30 05/20/18 04:00 71 05/20/18 04:00 98.3 71 17 142/77 (98) 99 98.3 05/20/18 03:30 72 16 30 05/20/18 01:30 71 15 30 05/20/18 00:00 Mechanical Ventilator Mechanical Ventilator Mechanical Ventilator 05/20/18 00:00 71 05/20/18 00:00 98.1 71 16 137/73 (94) 100 98.1 05/20/18 00:00 30 05/19/18 23:13 74 16 30 05/19/18 21:30 70 22 30 05/19/18 20:00 97.0 68 17 135/80 (98) 98 97.0 05/19/18 20:00 65 05/19/18 20:00 30 05/19/18 20:00 Mechanical Ventilator Mechanical Ventilator Mechanical Ventilator 05/19/18 19:30 72 20 30 05/19/18 17:16 74 16 30 05/19/18 16:00 66 05/19/18 16:00 Mechanical Ventilator Mechanical Ventilator Mechanical Ventilator 05/19/18 16:00 97.2 68 16 123/82 (96) 100 97.2 05/19/18 16:00 30 05/19/18 15:16 72 16 30 Intake and Output 05/19/18 05/20/18 19:00 07:00 Intake Total 1170 ml 940 ml Output Total 1950 ml 1225 ml Balance -780 ml -285 ml Free Water 280 ml IV Total 110 ml 60 ml Tube Feeding 780 ml 780 ml Other 100 ml Output Urine Total 1550 ml 1000 ml Stool Total 400 ml 225 ml Laboratory Tests 05/20/18 05:00: White Blood Count 10.9H, Red Blood Count 4.52L, Hemoglobin 12.2L, Hematocrit 38.4L, Mean Corpuscular Volume 85, Mean Corpuscular Hemoglobin 26.9L, Mean Corpuscular Hemoglobin Concent 31.7L, Red Cell Distribution Width 14.2, Platelet Count 244, Mean Platelet Volume 8.3, Neutrophils (%) (Auto) 65.5, Lymphocytes (%) (Auto) 24.1, Monocytes (%) (Auto) 3.0, Eosinophils (%) (Auto) 6.6H, Basophils (%) (Auto) 0.8, Sodium Level 135L, Potassium Level 3.9, Chloride Level 101, Carbon Dioxide Level 22, Anion Gap 12, Blood Urea Nitrogen 7 , Creatinine 0.9, Estimat Glomerular Filtration Rate > 60, Glucose Level 137H, Calcium Level 9.9 Height (Feet): 6 Weight (Pounds): 210 General Appearance: no apparent distress, lethargic EENT: PERRL/EOMI Neck: normal alignment Cardiovascular: normal peripheral pulses Respiratory/Chest: no respiratory distress Abdomen: soft Jimmy Fleming MD May 20, 2018 13:43
[2018-05-20] MEDS: Ertapenem 1 GM in NS 55 ML IVPB SCH (14:18)
[2018-05-20 16:00] VITALS: BP 127/70
[2018-05-20] MEDS ORDERED: Sterile Water Irrig 1000ml IRRIG ONE (16:13)
[2018-05-20] MEDS ORDERED: NS 275ml ONE (16:13)
--- NOTE | 2018-05-20 17:05 | General Surgery Progress Note ---
General Surgery-Progress Note Subjective Additional Comments no acute events. stable. ostomy viable. Objective Last 24 Hour Vital Signs Date Time Temp Pulse Resp B/P (MAP) Pulse Ox O2 Delivery O2 Flow Rate FiO2 05/20/18 16:00 98.5 78 16 127/70 (89) 99 98.5 05/20/18 16:00 30 05/20/18 16:00 Mechanical Ventilator Mechanical Ventilator Mechanical Ventilator 05/20/18 15:23 82 16 30 05/20/18 15:22 83 05/20/18 13:19 77 16 30 05/20/18 12:00 Mechanical Ventilator Mechanical Ventilator Mechanical Ventilator 05/20/18 12:00 30 05/20/18 12:00 98.6 82 16 119/74 (89) 98 98.6 05/20/18 11:44 82 05/20/18 10:36 80 16 30 05/20/18 09:11 82 16 30 05/20/18 08:00 98.3 80 16 128/73 (91) 99 98.3 05/20/18 08:00 Mechanical Ventilator Mechanical Ventilator Mechanical Ventilator 05/20/18 08:00 30 05/20/18 07:42 79 05/20/18 06:39 78 17 30 05/20/18 05:14 70 16 30 05/20/18 04:00 Mechanical Ventilator Mechanical Ventilator Mechanical Ventilator 05/20/18 04:00 30 05/20/18 04:00 71 05/20/18 04:00 98.3 71 17 142/77 (98) 99 98.3 05/20/18 03:30 72 16 30 05/20/18 01:30 71 15 30 05/20/18 00:00 Mechanical Ventilator Mechanical Ventilator Mechanical Ventilator 05/20/18 00:00 71 05/20/18 00:00 98.1 71 16 137/73 (94) 100 98.1 05/20/18 00:00 30 05/19/18 23:13 74 16 30 05/19/18 21:30 70 22 30 05/19/18 20:00 97.0 68 17 135/80 (98) 98 97.0 05/19/18 20:00 65 05/19/18 20:00 30 05/19/18 20:00 Mechanical Ventilator Mechanical Ventilator Mechanical Ventilator 05/19/18 19:30 72 20 30 05/19/18 17:16 74 16 30 I&O Intake and Output 05/19/18 05/20/18 19:00 07:00 Intake Total 1170 ml 940 ml Output Total 1950 ml 1225 ml Balance -780 ml -285 ml Free Water 280 ml IV Total 110 ml 60 ml Tube Feeding 780 ml 780 ml Other 100 ml Output Urine Total 1550 ml 1000 ml Stool Total 400 ml 225 ml Wound: clean Drains: other Cardiovascular: RSR Respiratory: decreased breath sounds Abdomen: soft, flat, non-tender, present bowel sounds, other - ostomy viable and non obstructed Extremities: no tenderness, no cyanosis Laboratory Tests Test 05/20/18 05:00 White Blood Count 10.9 K/UL (4.8-10.8) H Red Blood Count 4.52 M/UL (4.70-6.10) L Hemoglobin 12.2 G/DL (14.2-18.0) L Hematocrit 38.4 % (42.0-52.0) L Mean Corpuscular Volume 85 FL (80-99) Mean Corpuscular Hemoglobin 26.9 PG (27.0-31.0) L Mean Corpuscular Hemoglobin Concent 31.7 G/DL (32.0-36.0) L Red Cell Distribution Width 14.2 % (11.6-14.8) Platelet Count 244 K/UL (150-450) Mean Platelet Volume 8.3 FL (6.5-10.1) Neutrophils (%) (Auto) 65.5 % (45.0-75.0) Lymphocytes (%) (Auto) 24.1 % (20.0-45.0) Monocytes (%) (Auto) 3.0 % (1.0-10.0) Eosinophils (%) (Auto) 6.6 % (0.0-3.0) H Basophils (%) (Auto) 0.8 % (0.0-2.0) Sodium Level 135 MMOL/L (136-145) L Potassium Level 3.9 MMOL/L (3.5-5.1) Chloride Level 101 MMOL/L (98-107) Carbon Dioxide Level 22 MMOL/L (21-32) Anion Gap 12 mmol/L (5-15) Blood Urea Nitrogen 7 mg/dL (7-18) Creatinine 0.9 MG/DL (0.55-1.30) Estimat Glomerular Filtration Rate > 60 mL/min (>60) Glucose Level 137 MG/DL (74-106) H Calcium Level 9.9 MG/DL (8.5-10.1) Plan Problems: (1) Stoma malfunction (2) Parastomal hernia Assessment & Plan: 52M with history of prior loop colostomy. proximal loop stable. distal with impacted contrast stool but stable. parastomal hernia with small bowel contents in hernia. no obstruction noted at this time. larger appearance of patients stoma is because location and use of loop colostomy in hepatic flexure. it is otherwise viable and stable. Would Highly recommend fixing parastomal hernia but can be done electively. if obstructs will need urgent repair. currently non obstructive will monitor and follow with recs. bowel care thank you for this consultation. (3) Severe sepsis Tino Mancilla May 20, 2018 17:05
[2018-05-20 20:00] VITALS: BP 120/86
[2018-05-20] MEDS: Dyna-Hex 2% Top Sol 2oz TOPIC SCH (21:11)
[2018-05-20] MEDS: Miralax 17gm pkt GT SCH (21:12)
[2018-05-20] MEDS: Iron Sucrose 100 MG in NS 55 ML IV SCH (21:16)
[2018-05-21] VITALS: BP 127/86
[2018-05-21 04:00] VITALS: BP 127/82
[2018-05-21 04:58] LABS: BASOPHILS % (AUTO) 0.6 % (0.0-2.0); EOSINOPHILS % (AUTO) 4.7 % (0.0-3.0); HEMATOCRIT 38.5 % (42.0-52.0); HEMOGLOBIN 12.3 G/DL (14.2-18.0); LYMPHOCYTES % (AUTO) 20.3 % (20.0-45.0); MEAN CORPUSCULAR VOLUME 85 FL (80-99); MONOCYTES % (AUTO) 4.4 % (1.0-10.0); NEUTROPHILS % (AUTO) 70.1 % (45.0-75.0); PLATELET COUNT 257 K/UL (150-450); RED BLOOD COUNT 4.53 M/UL (4.70-6.10); RED CELL DISTRIBUTION WIDTH 14.9 % (11.6-14.8); WHITE BLOOD COUNT 12.6 K/UL (4.8-10.8)
[2018-05-21 05:08] LABS: PHOSPHORUS 2.7 MG/DL (2.5-4.9)
[2018-05-21 05:13] LABS: ALANINE AMINOTRANSFERASE 51 U/L (12-78); ALBUMIN 3.3 G/DL (3.4-5.0); ALBUMIN/GLOBULIN RATIO 0.7 (1.0-2.7); ALKALINE PHOSPHATASE 111 U/L (46-116); ANION GAP 10 mmol/L (5-15); ASPARTATE AMINO TRANSFERASE 30 U/L (15-37); BILIRUBIN,TOTAL 0.4 MG/DL (0.2-1.0); BLOOD UREA NITROGEN 9 mg/dL (7-18); CALCIUM 10.2 MG/DL (8.5-10.1); CARBON DIOXIDE 25 MMOL/L (21-32); CHLORIDE 99 MMOL/L (98-107); CREATININE 0.9 MG/DL (0.55-1.30); POTASSIUM 3.9 MMOL/L (3.5-5.1); SODIUM 134 MMOL/L (136-145)
[2018-05-21] MEDS: levETIRAcetam 500mg/5ml Liquid GT SCH ×3 (05:54→21:33)
[2018-05-21] MEDS: Vancomycin 1500mg IVPB SCH (05:55)
[2018-05-21] MEDS: NovoLOG Insulin Flexpen SUBQ SCH ×3 (05:57→17:36)
--- NOTE | 2018-05-21 07:35 | Infectious Diseases Prog Note ---
Assessment/Plan Assessment/Plan Sepsis, resolving- 2ry to UTI and Bacteremia- ?pyelo. Possible PNA -u/a wbc 40-60, nit neg, leuk +2; ucx >100k E. aerogenes (S cefepime, cipro/ levo; R Zosyn) -BCX 01/23 E. aerogenes, prob Amp C (S cefepime, cipro/levo; R Zosyn), P. mirabilis ESBL (S Zosyn, Ertapenem); repeta 05/16 10/25 CoNS (suspect contaminant) , 05/18 Staph f/u final results if CoNS may need TTE and IE work up. -CXR 05/17: Increased left pleural effusion, over 3 days. Overall decreased interstitial congestion. Right infrahilar atelectasis -CXR: Cardiomegaly. Mild interstitial congestion. Suspect small bilateral pleural effusions -CT abd/p: Right lower quadrant double barrel colostomy, as described. Small peristomal hernia contains bowel loops without evidence of obstruction or strangulation. Left renal staghorn calculus. Bilateral intrarenal calyceal calculi. Borderline hydronephrosis on the right without evidence of downstream obstructive lesion. May indicate mild ureteral pelvic junction obstruction. Somewhat atrophic left kidney. Inspissated contrast ball within the distal sigmoid colon. Gastrostomy in good position. Nonspecific bilateral perinephric fat stranding, could indicate pyelonephritis or could be chronic. Newberry catheter in place. Apparent bladder wall thickening, possibly an artifact of under distention but cystitis is not excludable, particularly in view of mild perivesical fat stranding. Bilateral pulmonary parenchymal atelectasis and consolidation -Blood Cx from PICC CoNS 2/2 bottles Peripheral Neg- (May be contaminant but will repeat blood Cx given new leukocytosis if positive will need ECHO. Fever/Leukocytosis; increasing WBCs - Re-evaluate lines, Diarrhea? C. dif? DIVYA, improving Lactic acidosis, resolved chronic resp failure trach/vent dependant BPH GERD HTN DM2 seizure disorder colostomy s/p GT constipation VRE and MRSA colonized Plan: - Continue empiric IV Vancomycin #5 for bacteremia. -Continue Ertapenem #4/10 for Amp-C Enterobacter and ESBL P.mirabilis bacteremia ; will treat for 10-14 days -05/17 SP Zosyn #4 -Repeat 2 sets of Bcx for 7/30/18 -f/u 05/18 Bcx -Monitor CBC/CMP, temperatures Thank you for this consultation. Will continue to follow along with you. Subjective Allergies: Coded Allergies: AZTREONAM (Verified Allergy, Unknown, 05/13/18) Subjective LADY, Patient PEG and Trached On Vent. 30% O2 and PEEP of 5 Objective Vital Signs Last 24 Hour Vital Signs Date Time Temp Pulse Resp B/P (MAP) Pulse Ox O2 Delivery O2 Flow Rate FiO2 05/21/18 04:55 81 16 30 05/21/18 04:02 82 05/21/18 04:00 Mechanical Ventilator Mechanical Ventilator Mechanical Ventilator 05/21/18 04:00 30 05/21/18 04:00 97.8 84 16 127/82 (97) 100 97.8 05/21/18 02:45 78 17 30 05/21/18 00:48 86 16 30 05/21/18 00:00 97.7 82 16 127/86 (100) 100 97.7 05/21/18 00:00 Mechanical Ventilator Mechanical Ventilator Mechanical Ventilator 05/21/18 00:00 30 05/20/18 23:39 79 05/20/18 22:58 84 17 30 05/20/18 21:07 80 17 30 05/20/18 20:00 30 05/20/18 20:00 Mechanical Ventilator Mechanical Ventilator Mechanical Ventilator 05/20/18 20:00 98.2 80 16 120/86 (97) 100 98.2 05/20/18 19:58 84 05/20/18 18:45 83 17 30 05/20/18 17:08 80 16 30 05/20/18 16:00 98.5 78 16 127/70 (89) 99 98.5 05/20/18 16:00 30 05/20/18 16:00 Mechanical Ventilator Mechanical Ventilator Mechanical Ventilator 05/20/18 15:23 82 16 30 05/20/18 15:22 83 05/20/18 13:19 77 16 30 05/20/18 12:00 Mechanical Ventilator Mechanical Ventilator Mechanical Ventilator 05/20/18 12:00 30 05/20/18 12:00 98.6 82 16 119/74 (89) 98 98.6 05/20/18 11:44 82 05/20/18 10:36 80 16 30 05/20/18 09:11 82 16 30 05/20/18 08:00 98.3 80 16 128/73 (91) 99 98.3 05/20/18 08:00 Mechanical Ventilator Mechanical Ventilator Mechanical Ventilator 05/20/18 08:00 30 05/20/18 07:42 79 Height (Feet): 6 Weight (Pounds): 198 Objective GENERAL: The patient is asleep, in no overt distress. Opens eyes HEENT: Extraocular muscles intact. No lymphadenopathy noted. Tracheostomy noted. PULM: CTAB CARDIOVASCULAR: RRR, S1 and S2. Tachycardic. No rubs or gallops. PULMONARY: Mild diffuse expiratory rhonchi with basilar rales. ABDOMEN: Obese and nondistended. The G-tube and stoma noted. EXTREMITIES: No edema. Fair pedal pulses. Microbiology Date/Time Source Procedure Growth Status 05/18/18 16:30 Blood Blood Culture - Preliminary NO GROWTH AFTER 48 HOURS Resulted 05/18/18 13:25 Blood Blood Culture - Final Staphylococcus Epidermidis Complete Laboratory Tests Test 05/20/18 17:30 05/21/18 03:30 Random Vancomycin Level 21.8 ug/mL White Blood Count 12.6 K/UL (4.8-10.8) H Red Blood Count 4.53 M/UL (4.70-6.10) L Hemoglobin 12.3 G/DL (14.2-18.0) L Hematocrit 38.5 % (42.0-52.0) L Mean Corpuscular Volume 85 FL (80-99) Mean Corpuscular Hemoglobin 27.2 PG (27.0-31.0) Mean Corpuscular Hemoglobin Concent 32.0 G/DL (32.0-36.0) Red Cell Distribution Width 14.9 % (11.6-14.8) H Platelet Count 257 K/UL (150-450) Mean Platelet Volume 8.9 FL (6.5-10.1) Neutrophils (%) (Auto) 70.1 % (45.0-75.0) Lymphocytes (%) (Auto) 20.3 % (20.0-45.0) Monocytes (%) (Auto) 4.4 % (1.0-10.0) Eosinophils (%) (Auto) 4.7 % (0.0-3.0) H Basophils (%) (Auto) 0.6 % (0.0-2.0) Sodium Level 134 MMOL/L (136-145) L Potassium Level 3.9 MMOL/L (3.5-5.1) Chloride Level 99 MMOL/L (98-107) Carbon Dioxide Level 25 MMOL/L (21-32) Anion Gap 10 mmol/L (5-15) Blood Urea Nitrogen 9 mg/dL (7-18) Creatinine 0.9 MG/DL (0.55-1.30) Estimat Glomerular Filtration Rate > 60 mL/min (>60) Glucose Level 130 MG/DL (74-106) H Calcium Level 10.2 MG/DL (8.5-10.1) H Phosphorus Level 2.7 MG/DL (2.5-4.9) Magnesium Level 1.8 MG/DL (1.8-2.4) Total Bilirubin 0.4 MG/DL (0.2-1.0) Aspartate Amino Transf (AST/SGOT) 30 U/L (15-37) Alanine Aminotransferase (ALT/SGPT) 51 U/L (12-78) Alkaline Phosphatase 111 U/L (46-116) Total Protein 8.3 G/DL (6.4-8.2) H Albumin 3.3 G/DL (3.4-5.0) L Globulin 5.0 g/dL Albumin/Globulin Ratio 0.7 (1.0-2.7) L Current Medications Medications (Trade) Dose Ordered Sig/Va Route PRN Reason Start Time Stop Time Status Last Admin Dose Admin Acetaminophen (Tylenol) 650 mg Q4H PRN ORAL FEVER 05/16/18 14:00 06/13/18 09:59 Baclofen (Lioresal) 10 mg EVERY 8 HOURS GT 05/20/18 14:00 06/13/18 12:59 05/21/18 05:54 Chlorhexidine Gluconate (Rebecca-Hex 2%) 1 applic DAILY@1999 TOPIC 05/16/18 20:00 06/13/18 19:59 05/20/18 21:11 Dextrose (Dextrose 50%) 25 ml STAT PRN IV Hypoglycemia 05/17/18 08:45 06/14/18 08:44 Dextrose (Dextrose 50%) 50 ml STAT PRN IV Hypoglycemia 05/17/18 08:45 06/14/18 08:44 Ertapenem 1 gm/ Sodium Chloride 55 ml @ 110 mls/hr Q24H IVPB 05/17/18 15:00 05/27/18 14:59 05/20/18 14:18 Heparin Sodium (Porcine) (Heparin 5000 units/ml) 5,000 units EVERY 12 HOURS SUBQ 05/16/18 21:00 06/13/18 20:59 05/20/18 21:14 Insulin Aspart (NovoLOG) Q6HR SUBQ 05/16/18 18:00 06/14/18 11:29 05/21/18 05:57 Lansoprazole (Prevacid) 30 mg DAILY GT 05/17/18 09:00 06/15/18 08:59 05/20/18 08:21 Levetiracetam (Keppra) 1,000 mg Q8HR GT 05/16/18 14:00 06/13/18 12:59 05/21/18 05:54 Lorazepam (Ativan 2mg/ml 1ml) 2 mg Q2H PRN IV For Anxiety 05/16/18 12:00 05/21/18 09:59 Morphine Sulfate (Morphine Sulfate) 4 mg Q4H PRN IVP Severe Pain (Pain Scale 7-10) 05/16/18 14:00 05/21/18 09:59 Ondansetron HCl (Zofran) 4 mg Q6H PRN IVP Nausea & Vomiting 05/16/18 16:00 06/13/18 09:59 Polyethylene Glycol (Miralax) 17 gm BEDTIME GT 05/20/18 21:00 06/14/18 20:59 05/20/18 21:12 Vancomycin HCl (Vanco rx to dose) 1 ea DAILY PRN MISC PER RX PROTOCOL 05/18/18 13:15 06/17/18 13:14 Vancomycin HCl/ Dextrose 250 ml @ 125 mls/hr Q24H IVPB 05/21/18 06:00 05/26/18 05:59 05/21/18 05:55 Kali Richter M.D. May 21, 2018 07:35
[2018-05-21 08:00] VITALS: BP 114/81
[2018-05-21] MEDS: Heparin 5000 units/ml inj SUBQ SCH ×2 (08:31→21:35)
--- NOTE | 2018-05-21 08:37 | Nephrology Progress Note ---
Assessment/Plan Assessment/Plan 1. DIVYA- resolved, Cr normal 2. Septis- resolved on Abx 3. Chronic Resp FL- trached on vent 4. Hyponatremia - Na at 134. DC free water. Monitor 5. ARNIE- Luis Alberto Subjective Date patient seen: May 21, 2018 Time patient seen: 08:32 ROS Limited/Unobtainable: Yes Allergies: Coded Allergies: AZTREONAM (Verified Allergy, Unknown, 05/13/18) All Systems: reviewed and negative except above Subjective Patient trached/vent. In no overt distress Objective Last 24 Hour Vital Signs Date Time Temp Pulse Resp B/P (MAP) Pulse Ox O2 Delivery O2 Flow Rate FiO2 05/21/18 08:00 30 05/21/18 08:00 97.2 81 18 114/81 (92) 100 97.2 05/21/18 08:00 Mechanical Ventilator Mechanical Ventilator Mechanical Ventilator 05/21/18 07:21 94 18 30 05/21/18 04:55 81 16 30 05/21/18 04:02 82 05/21/18 04:00 Mechanical Ventilator Mechanical Ventilator Mechanical Ventilator 05/21/18 04:00 30 05/21/18 04:00 97.8 84 16 127/82 (97) 100 97.8 05/21/18 02:45 78 17 30 05/21/18 00:48 86 16 30 05/21/18 00:00 97.7 82 16 127/86 (100) 100 97.7 05/21/18 00:00 Mechanical Ventilator Mechanical Ventilator Mechanical Ventilator 05/21/18 00:00 30 05/20/18 23:39 79 05/20/18 22:58 84 17 30 05/20/18 21:07 80 17 30 05/20/18 20:00 30 05/20/18 20:00 Mechanical Ventilator Mechanical Ventilator Mechanical Ventilator 05/20/18 20:00 98.2 80 16 120/86 (97) 100 98.2 05/20/18 19:58 84 05/20/18 18:45 83 17 30 05/20/18 17:08 80 16 30 05/20/18 16:00 98.5 78 16 127/70 (89) 99 98.5 05/20/18 16:00 30 05/20/18 16:00 Mechanical Ventilator Mechanical Ventilator Mechanical Ventilator 05/20/18 15:23 82 16 30 05/20/18 15:22 83 05/20/18 13:19 77 16 30 05/20/18 12:00 Mechanical Ventilator Mechanical Ventilator Mechanical Ventilator 05/20/18 12:00 30 05/20/18 12:00 98.6 82 16 119/74 (89) 98 98.6 05/20/18 11:44 82 05/20/18 10:36 80 16 30 05/20/18 09:11 82 16 30 Intake and Output 05/20/18 05/21/18 19:00 07:00 Intake Total 955 ml 955 ml Output Total 1450 ml 1500 ml Balance -495 ml -545 ml Free Water 50 ml IV Total 55 ml 125 ml Tube Feeding 780 ml 780 ml Other 120 ml Output Urine Total 1100 ml 1200 ml Stool Total 350 ml 300 ml Laboratory Tests 05/20/18 17:30: Random Vancomycin Level 21.8 05/21/18 03:30: White Blood Count 12.6H, Red Blood Count 4.53L, Hemoglobin 12.3L, Hematocrit 38.5L, Mean Corpuscular Volume 85, Mean Corpuscular Hemoglobin 27.2, Mean Corpuscular Hemoglobin Concent 32.0, Red Cell Distribution Width 14.9H, Platelet Count 257, Mean Platelet Volume 8.9, Neutrophils (%) (Auto) 70.1, Lymphocytes (%) (Auto) 20.3, Monocytes (%) (Auto) 4.4, Eosinophils (%) (Auto) 4.7H, Basophils (%) (Auto) 0.6, Sodium Level 134L, Potassium Level 3.9, Chloride Level 99, Carbon Dioxide Level 25, Anion Gap 10, Blood Urea Nitrogen 9 , Creatinine 0.9, Estimat Glomerular Filtration Rate > 60, Glucose Level 130H, Calcium Level 10.2H, Phosphorus Level 2.7, Magnesium Level 1.8, Total Bilirubin 0.4, Aspartate Amino Transf (AST/SGOT) 30, Alanine Aminotransferase (ALT/SGPT) 51, Alkaline Phosphatase 111, Total Protein 8.3H, Albumin 3.3L, Globulin 5.0, Albumin/Globulin Ratio 0.7L Height (Feet): 6 Weight (Pounds): 198 General Appearance: WD/WN, no apparent distress EENT: PERRL/EOMI, normal ENT inspection Neck: normal alignment, supple Cardiovascular: normal peripheral pulses, normal rate Respiratory/Chest: lungs clear, rhonchi - bilaterally Abdomen: non tender, soft Edema: no edema noted Arm (L), no edema noted Arm (R), no edema noted Leg (L), no edema noted Leg (R), no edema noted Pedal (L), no edema noted Pedal (R), no edema noted Generalized Mir Gann M.D. May 21, 2018 08:37
--- NOTE | 2018-05-21 10:07 | Pulmonolgy Critical Care Note ---
Critical Care - Asmt/Plan Problems: (1) Acute on chronic respiratory failure (2) Acute on chronic renal insufficiency (3) Severe sepsis (4) Vegetative state (5) Colostomy in place (6) Diabetes mellitus Respiratory: monitor respiratory rate, adjust FIO2, CXR Cardiac: continue to monitor HR/BP Renal: F/U I&O Infectious Disease: check cultures, continue antibiotics Gastrointestinal: continue feedings/current rate Endocrine: monitor blood sugar, check HgA1C Neurologic: PRN Ativan, keep patient comfortable Affect: PRN ativan Prophylaxis: Heparin Notes Reviewed: glazier apprentice, renal Discussed with: nurses, consultants, casework supervisorpatient manager - Objective Last 24 Hour Vital Signs Date Time Temp Pulse Resp B/P (MAP) Pulse Ox O2 Delivery O2 Flow Rate FiO2 05/21/18 09:29 90 19 30 05/21/18 08:00 30 05/21/18 08:00 97.2 81 18 114/81 (92) 100 97.2 05/21/18 08:00 Mechanical Ventilator Mechanical Ventilator Mechanical Ventilator 05/21/18 07:50 86 05/21/18 07:21 94 18 30 05/21/18 04:55 81 16 30 05/21/18 04:02 82 05/21/18 04:00 Mechanical Ventilator Mechanical Ventilator Mechanical Ventilator 05/21/18 04:00 30 05/21/18 04:00 97.8 84 16 127/82 (97) 100 97.8 05/21/18 02:45 78 17 30 05/21/18 00:48 86 16 30 05/21/18 00:00 97.7 82 16 127/86 (100) 100 97.7 05/21/18 00:00 Mechanical Ventilator Mechanical Ventilator Mechanical Ventilator 05/21/18 00:00 30 05/20/18 23:39 79 05/20/18 22:58 84 17 30 05/20/18 21:07 80 17 30 05/20/18 20:00 30 05/20/18 20:00 Mechanical Ventilator Mechanical Ventilator Mechanical Ventilator 05/20/18 20:00 98.2 80 16 120/86 (97) 100 98.2 05/20/18 19:58 84 05/20/18 18:45 83 17 30 05/20/18 17:08 80 16 30 05/20/18 16:00 98.5 78 16 127/70 (89) 99 98.5 05/20/18 16:00 30 05/20/18 16:00 Mechanical Ventilator Mechanical Ventilator Mechanical Ventilator 05/20/18 15:23 82 16 30 05/20/18 15:22 83 05/20/18 13:19 77 16 30 05/20/18 12:00 Mechanical Ventilator Mechanical Ventilator Mechanical Ventilator 05/20/18 12:00 30 05/20/18 12:00 98.6 82 16 119/74 (89) 98 98.6 05/20/18 11:44 82 05/20/18 10:36 80 16 30 Status: obtunded Condition: critical HEENT: atraumatic Heart: HR/BP stable, HR/BP unstable Abdomen: non-tender, active bowel sounds Extremities: no C/C/E Decubiti: location Micro: Microbiology Date/Time Source Procedure Growth Status 05/18/18 16:30 Blood Blood Culture - Preliminary NO GROWTH AFTER 48 HOURS Resulted 05/18/18 13:25 Blood Blood Culture - Final Staphylococcus Epidermidis Complete Accucheck: 144 Critical Care - Subjective ROS Limited/Unobtainable: Yes Condition: critical EKG Rhythm: Sinus Rhythm FI02: 30 Vent Support Breath Rate: 16 Vent Support Mode: AC Vent Tidal Volume: 600 Sputum Amount: Small PEEP: 5.0 PIP: 31 Tube Feeding Amount: 65 I&O: Intake and Output 05/20/18 05/21/18 19:00 07:00 Intake Total 955 ml 955 ml Output Total 1450 ml 1500 ml Balance -495 ml -545 ml Free Water 50 ml IV Total 55 ml 125 ml Tube Feeding 780 ml 780 ml Other 120 ml Output Urine Total 1100 ml 1200 ml Stool Total 350 ml 300 ml Labs: Laboratory Tests Test 05/20/18 17:30 05/21/18 03:30 Random Vancomycin Level 21.8 ug/mL White Blood Count 12.6 K/UL (4.8-10.8) H Red Blood Count 4.53 M/UL (4.70-6.10) L Hemoglobin 12.3 G/DL (14.2-18.0) L Hematocrit 38.5 % (42.0-52.0) L Mean Corpuscular Volume 85 FL (80-99) Mean Corpuscular Hemoglobin 27.2 PG (27.0-31.0) Mean Corpuscular Hemoglobin Concent 32.0 G/DL (32.0-36.0) Red Cell Distribution Width 14.9 % (11.6-14.8) H Platelet Count 257 K/UL (150-450) Mean Platelet Volume 8.9 FL (6.5-10.1) Neutrophils (%) (Auto) 70.1 % (45.0-75.0) Lymphocytes (%) (Auto) 20.3 % (20.0-45.0) Monocytes (%) (Auto) 4.4 % (1.0-10.0) Eosinophils (%) (Auto) 4.7 % (0.0-3.0) H Basophils (%) (Auto) 0.6 % (0.0-2.0) Sodium Level 134 MMOL/L (136-145) L Potassium Level 3.9 MMOL/L (3.5-5.1) Chloride Level 99 MMOL/L (98-107) Carbon Dioxide Level 25 MMOL/L (21-32) Anion Gap 10 mmol/L (5-15) Blood Urea Nitrogen 9 mg/dL (7-18) Creatinine 0.9 MG/DL (0.55-1.30) Estimat Glomerular Filtration Rate > 60 mL/min (>60) Glucose Level 130 MG/DL (74-106) H Calcium Level 10.2 MG/DL (8.5-10.1) H Phosphorus Level 2.7 MG/DL (2.5-4.9) Magnesium Level 1.8 MG/DL (1.8-2.4) Total Bilirubin 0.4 MG/DL (0.2-1.0) Aspartate Amino Transf (AST/SGOT) 30 U/L (15-37) Alanine Aminotransferase (ALT/SGPT) 51 U/L (12-78) Alkaline Phosphatase 111 U/L (46-116) Total Protein 8.3 G/DL (6.4-8.2) H Albumin 3.3 G/DL (3.4-5.0) L Globulin 5.0 g/dL Albumin/Globulin Ratio 0.7 (1.0-2.7) L Nico Goetz MD May 21, 2018 10:07
--- NOTE | 2018-05-21 10:56 | General Surgery Progress Note ---
General Surgery-Progress Note Subjective Additional Comments no acute events. resting comfortable. Objective Last 24 Hour Vital Signs Date Time Temp Pulse Resp B/P (MAP) Pulse Ox O2 Delivery O2 Flow Rate FiO2 05/21/18 09:29 90 19 30 05/21/18 08:00 30 05/21/18 08:00 97.2 81 18 114/81 (92) 100 97.2 05/21/18 08:00 Mechanical Ventilator Mechanical Ventilator Mechanical Ventilator 05/21/18 07:50 86 05/21/18 07:21 94 18 30 05/21/18 04:55 81 16 30 05/21/18 04:02 82 05/21/18 04:00 Mechanical Ventilator Mechanical Ventilator Mechanical Ventilator 05/21/18 04:00 30 05/21/18 04:00 97.8 84 16 127/82 (97) 100 97.8 05/21/18 02:45 78 17 30 05/21/18 00:48 86 16 30 05/21/18 00:00 97.7 82 16 127/86 (100) 100 97.7 05/21/18 00:00 Mechanical Ventilator Mechanical Ventilator Mechanical Ventilator 05/21/18 00:00 30 05/20/18 23:39 79 05/20/18 22:58 84 17 30 05/20/18 21:07 80 17 30 05/20/18 20:00 30 05/20/18 20:00 Mechanical Ventilator Mechanical Ventilator Mechanical Ventilator 05/20/18 20:00 98.2 80 16 120/86 (97) 100 98.2 05/20/18 19:58 84 05/20/18 18:45 83 17 30 05/20/18 17:08 80 16 30 05/20/18 16:00 98.5 78 16 127/70 (89) 99 98.5 05/20/18 16:00 30 05/20/18 16:00 Mechanical Ventilator Mechanical Ventilator Mechanical Ventilator 05/20/18 15:23 82 16 30 05/20/18 15:22 83 05/20/18 13:19 77 16 30 05/20/18 12:00 Mechanical Ventilator Mechanical Ventilator Mechanical Ventilator 05/20/18 12:00 30 05/20/18 12:00 98.6 82 16 119/74 (89) 98 98.6 05/20/18 11:44 82 I&O Intake and Output 05/20/18 05/21/18 19:00 07:00 Intake Total 955 ml 955 ml Output Total 1450 ml 1500 ml Balance -495 ml -545 ml Free Water 50 ml IV Total 55 ml 125 ml Tube Feeding 780 ml 780 ml Other 120 ml Output Urine Total 1100 ml 1200 ml Stool Total 350 ml 300 ml Wound: clean Drains: none Cardiovascular: RSR Respiratory: clear Abdomen: soft, flat, present bowel sounds, other - ostomy viable Laboratory Tests Test 05/20/18 17:30 05/21/18 03:30 Random Vancomycin Level 21.8 ug/mL White Blood Count 12.6 K/UL (4.8-10.8) H Red Blood Count 4.53 M/UL (4.70-6.10) L Hemoglobin 12.3 G/DL (14.2-18.0) L Hematocrit 38.5 % (42.0-52.0) L Mean Corpuscular Volume 85 FL (80-99) Mean Corpuscular Hemoglobin 27.2 PG (27.0-31.0) Mean Corpuscular Hemoglobin Concent 32.0 G/DL (32.0-36.0) Red Cell Distribution Width 14.9 % (11.6-14.8) H Platelet Count 257 K/UL (150-450) Mean Platelet Volume 8.9 FL (6.5-10.1) Neutrophils (%) (Auto) 70.1 % (45.0-75.0) Lymphocytes (%) (Auto) 20.3 % (20.0-45.0) Monocytes (%) (Auto) 4.4 % (1.0-10.0) Eosinophils (%) (Auto) 4.7 % (0.0-3.0) H Basophils (%) (Auto) 0.6 % (0.0-2.0) Sodium Level 134 MMOL/L (136-145) L Potassium Level 3.9 MMOL/L (3.5-5.1) Chloride Level 99 MMOL/L (98-107) Carbon Dioxide Level 25 MMOL/L (21-32) Anion Gap 10 mmol/L (5-15) Blood Urea Nitrogen 9 mg/dL (7-18) Creatinine 0.9 MG/DL (0.55-1.30) Estimat Glomerular Filtration Rate > 60 mL/min (>60) Glucose Level 130 MG/DL (74-106) H Calcium Level 10.2 MG/DL (8.5-10.1) H Phosphorus Level 2.7 MG/DL (2.5-4.9) Magnesium Level 1.8 MG/DL (1.8-2.4) Total Bilirubin 0.4 MG/DL (0.2-1.0) Aspartate Amino Transf (AST/SGOT) 30 U/L (15-37) Alanine Aminotransferase (ALT/SGPT) 51 U/L (12-78) Alkaline Phosphatase 111 U/L (46-116) Total Protein 8.3 G/DL (6.4-8.2) H Albumin 3.3 G/DL (3.4-5.0) L Globulin 5.0 g/dL Albumin/Globulin Ratio 0.7 (1.0-2.7) L Plan Problems: (1) Stoma malfunction (2) Parastomal hernia Assessment & Plan: 52M with history of prior loop colostomy. proximal loop stable. distal with impacted contrast stool but stable. parastomal hernia with small bowel contents in hernia. no obstruction noted at this time. larger appearance of patients stoma is because location and use of loop colostomy in hepatic flexure. it is otherwise viable and stable. Would Highly recommend fixing parastomal hernia but can be done electively. if obstructs will need urgent repair. currently non obstructive will monitor and follow with recs. bowel care spoke with today and explained above. will plan for d/c soon. if desired will plan for elective repair at later time once not acutely sick in the hospital. thank you for this consultation. (3) Severe sepsis Tino Mancilla May 21, 2018 10:56
[2018-05-21 12:00] VITALS: BP 114/75
--- NOTE | 2018-05-21 14:14 | General Progress Note ---
Assessment/Plan Status: unchanged Assessment/Plan # Anemia of chronic disease. No hemolysis, peripheral smear reviewed, ferritin is elevated. --> Continue to closely monitor for improvement. --> Anemia w/u has been reviewed. Will trend cbc daily. --> Hgb goal >7 # Leukocytosis - Sepsis with elevated temperature of 103 degrees Fahrenheit. --> Lactic acid pending, was elevated upon admission. --> Pt on antibiotics, has received a dose of Zosyn and currently is on vancomycin q.12 h. --> Currently afebrile. --> Appreciate Infectious Disease consult. # Acute kidney injury. --> Currently on IV fluids, IV bolus given to see if the patient responds along with IV pressor as needed. --> Closely monitor with Nephrology team. # Septic shock, use antibiotic per ID services. --> potential pna, bacteremia # Respiratory failure, status post tracheostomy, on mechanical ventilation per Dr. Geotz. # Hypercalcemia. Monitor PTH and calcium level The time the note was entered does not necessarily correspond to the time the patient was seen. Subjective Date patient seen: May 21, 2018 ROS Limited/Unobtainable: Yes Hematologic/Lymphatic: Reports: anemia Allergies: Coded Allergies: AZTREONAM (Verified Allergy, Unknown, 05/13/18) All Systems: reviewed and negative except above Subjective Pt remains obtunded, on trach/vent. No acute events. H/H stable. No recent seizure activity. Objective Last 24 Hour Vital Signs Date Time Temp Pulse Resp B/P (MAP) Pulse Ox O2 Delivery O2 Flow Rate FiO2 05/21/18 13:25 82 16 30 05/21/18 12:00 30 05/21/18 12:00 Mechanical Ventilator Mechanical Ventilator Mechanical Ventilator 05/21/18 12:00 98.1 100 16 114/75 (88) 100 98.1 05/21/18 11:55 87 05/21/18 11:28 85 16 30 05/21/18 09:29 90 19 30 05/21/18 08:00 30 05/21/18 08:00 97.2 81 18 114/81 (92) 100 97.2 05/21/18 08:00 Mechanical Ventilator Mechanical Ventilator Mechanical Ventilator 05/21/18 07:50 86 05/21/18 07:21 94 18 30 05/21/18 04:55 81 16 30 05/21/18 04:02 82 05/21/18 04:00 Mechanical Ventilator Mechanical Ventilator Mechanical Ventilator 05/21/18 04:00 30 05/21/18 04:00 97.8 84 16 127/82 (97) 100 97.8 05/21/18 02:45 78 17 30 05/21/18 00:48 86 16 30 05/21/18 00:00 97.7 82 16 127/86 (100) 100 97.7 05/21/18 00:00 Mechanical Ventilator Mechanical Ventilator Mechanical Ventilator 05/21/18 00:00 30 05/20/18 23:39 79 05/20/18 22:58 84 17 30 05/20/18 21:07 80 17 30 05/20/18 20:00 30 05/20/18 20:00 Mechanical Ventilator Mechanical Ventilator Mechanical Ventilator 05/20/18 20:00 98.2 80 16 120/86 (97) 100 98.2 05/20/18 19:58 84 05/20/18 18:45 83 17 30 05/20/18 17:08 80 16 30 05/20/18 16:00 98.5 78 16 127/70 (89) 99 98.5 05/20/18 16:00 30 05/20/18 16:00 Mechanical Ventilator Mechanical Ventilator Mechanical Ventilator 05/20/18 15:23 82 16 30 05/20/18 15:22 83 Intake and Output 05/20/18 05/21/18 19:00 07:00 Intake Total 955 ml 955 ml Output Total 1450 ml 1500 ml Balance -495 ml -545 ml Free Water 50 ml IV Total 55 ml 125 ml Tube Feeding 780 ml 780 ml Other 120 ml Output Urine Total 1100 ml 1200 ml Stool Total 350 ml 300 ml Laboratory Tests 05/20/18 17:30: Random Vancomycin Level 21.8 05/21/18 03:30: White Blood Count 12.6H, Red Blood Count 4.53L, Hemoglobin 12.3L, Hematocrit 38.5L, Mean Corpuscular Volume 85, Mean Corpuscular Hemoglobin 27.2, Mean Corpuscular Hemoglobin Concent 32.0, Red Cell Distribution Width 14.9H, Platelet Count 257, Mean Platelet Volume 8.9, Neutrophils (%) (Auto) 70.1, Lymphocytes (%) (Auto) 20.3, Monocytes (%) (Auto) 4.4, Eosinophils (%) (Auto) 4.7H, Basophils (%) (Auto) 0.6, Sodium Level 134L, Potassium Level 3.9, Chloride Level 99, Carbon Dioxide Level 25, Anion Gap 10, Blood Urea Nitrogen 9 , Creatinine 0.9, Estimat Glomerular Filtration Rate > 60, Glucose Level 130H, Calcium Level 10.2H, Phosphorus Level 2.7, Magnesium Level 1.8, Total Bilirubin 0.4, Aspartate Amino Transf (AST/SGOT) 30, Alanine Aminotransferase (ALT/SGPT) 51, Alkaline Phosphatase 111, Total Protein 8.3H, Albumin 3.3L, Globulin 5.0, Albumin/Globulin Ratio 0.7L Height (Feet): 6 Weight (Pounds): 198 General Appearance: no apparent distress EENT: PERRL/EOMI Neck: normal alignment Cardiovascular: normal peripheral pulses Respiratory/Chest: no respiratory distress Abdomen: soft Jimmy Fleming MD May 21, 2018 14:14
--- NOTE | 2018-05-21 15:14 | GI Progress Note ---
Assessment/Plan Problems: (1) Parastomal hernia ICD Codes: K43.5 - Parastomal hernia without obstruction or gangrene SNOMED: 516135395 Qualifiers: Qualified Codes: K43.5 - Parastomal hernia without obstruction or gangrene (2) Stoma malfunction SNOMED: 691158913 (3) Colostomy in place ICD Codes: Z93.3 - Colostomy status SNOMED: 373783815, 596616593 (4) Vegetative state ICD Codes: R40.3 - Persistent vegetative state SNOMED: 84060598 (5) Diabetes mellitus ICD Codes: E11.9 - Type 2 diabetes mellitus without complications SNOMED: 26499330 (6) Acute on chronic respiratory failure ICD Codes: J96.20 - Acute and chronic respiratory failure, unspecified whether with hypoxia or hypercapnia SNOMED: 58885882 (7) Severe sepsis ICD Codes: A41.9 - Sepsis, unspecified organism; R65.20 - Severe sepsis without septic shock SNOMED: 42538555 Status: stable, unchanged Status Narrative Discussed with Dr. Prater. Assessment/Plan prolapse stoma assessed >> no s/sx of infection. no obstruction. anemia work up reviewed >> iron deficiency G tube dependent hepatitis panel negative OB negative supportive care monitor H&H, prn transfusions venofer ppi GTFs per RD, adv to goal GT site care daily/prn abx bowel regime fu labs The patient was seen and examined at bedside and all new and available data was reviewed in the patients chart. I agree with the above findings, impression and plan. (Patient seen earlier today. Signature stamp does not reflect patient encounter time.). - Dae Prater MD Subjective Subjective limited Objective Last 24 Hour Vital Signs Date Time Temp Pulse Resp B/P (MAP) Pulse Ox O2 Delivery O2 Flow Rate FiO2 05/21/18 15:11 90 16 30 05/21/18 13:25 82 16 30 05/21/18 12:00 30 05/21/18 12:00 Mechanical Ventilator Mechanical Ventilator Mechanical Ventilator 05/21/18 12:00 98.1 100 16 114/75 (88) 100 98.1 05/21/18 11:55 87 05/21/18 11:28 85 16 30 05/21/18 09:29 90 19 30 05/21/18 08:00 30 05/21/18 08:00 97.2 81 18 114/81 (92) 100 97.2 05/21/18 08:00 Mechanical Ventilator Mechanical Ventilator Mechanical Ventilator 05/21/18 07:50 86 05/21/18 07:21 94 18 30 05/21/18 04:55 81 16 30 05/21/18 04:02 82 05/21/18 04:00 Mechanical Ventilator Mechanical Ventilator Mechanical Ventilator 05/21/18 04:00 30 05/21/18 04:00 97.8 84 16 127/82 (97) 100 97.8 05/21/18 02:45 78 17 30 05/21/18 00:48 86 16 30 05/21/18 00:00 97.7 82 16 127/86 (100) 100 97.7 05/21/18 00:00 Mechanical Ventilator Mechanical Ventilator Mechanical Ventilator 05/21/18 00:00 30 05/20/18 23:39 79 05/20/18 22:58 84 17 30 05/20/18 21:07 80 17 30 05/20/18 20:00 30 05/20/18 20:00 Mechanical Ventilator Mechanical Ventilator Mechanical Ventilator 05/20/18 20:00 98.2 80 16 120/86 (97) 100 98.2 05/20/18 19:58 84 05/20/18 18:45 83 17 30 05/20/18 17:08 80 16 30 05/20/18 16:00 98.5 78 16 127/70 (89) 99 98.5 05/20/18 16:00 30 05/20/18 16:00 Mechanical Ventilator Mechanical Ventilator Mechanical Ventilator 05/20/18 15:23 82 16 30 05/20/18 15:22 83 Intake and Output 05/20/18 05/21/18 19:00 07:00 Intake Total 955 ml 955 ml Output Total 1450 ml 1500 ml Balance -495 ml -545 ml Free Water 50 ml IV Total 55 ml 125 ml Tube Feeding 780 ml 780 ml Other 120 ml Output Urine Total 1100 ml 1200 ml Stool Total 350 ml 300 ml Laboratory Tests Test 05/20/18 17:30 05/21/18 03:30 Random Vancomycin Level 21.8 ug/mL White Blood Count 12.6 K/UL (4.8-10.8) H Red Blood Count 4.53 M/UL (4.70-6.10) L Hemoglobin 12.3 G/DL (14.2-18.0) L Hematocrit 38.5 % (42.0-52.0) L Mean Corpuscular Volume 85 FL (80-99) Mean Corpuscular Hemoglobin 27.2 PG (27.0-31.0) Mean Corpuscular Hemoglobin Concent 32.0 G/DL (32.0-36.0) Red Cell Distribution Width 14.9 % (11.6-14.8) H Platelet Count 257 K/UL (150-450) Mean Platelet Volume 8.9 FL (6.5-10.1) Neutrophils (%) (Auto) 70.1 % (45.0-75.0) Lymphocytes (%) (Auto) 20.3 % (20.0-45.0) Monocytes (%) (Auto) 4.4 % (1.0-10.0) Eosinophils (%) (Auto) 4.7 % (0.0-3.0) H Basophils (%) (Auto) 0.6 % (0.0-2.0) Sodium Level 134 MMOL/L (136-145) L Potassium Level 3.9 MMOL/L (3.5-5.1) Chloride Level 99 MMOL/L (98-107) Carbon Dioxide Level 25 MMOL/L (21-32) Anion Gap 10 mmol/L (5-15) Blood Urea Nitrogen 9 mg/dL (7-18) Creatinine 0.9 MG/DL (0.55-1.30) Estimat Glomerular Filtration Rate > 60 mL/min (>60) Glucose Level 130 MG/DL (74-106) H Calcium Level 10.2 MG/DL (8.5-10.1) H Phosphorus Level 2.7 MG/DL (2.5-4.9) Magnesium Level 1.8 MG/DL (1.8-2.4) Total Bilirubin 0.4 MG/DL (0.2-1.0) Aspartate Amino Transf (AST/SGOT) 30 U/L (15-37) Alanine Aminotransferase (ALT/SGPT) 51 U/L (12-78) Alkaline Phosphatase 111 U/L (46-116) Total Protein 8.3 G/DL (6.4-8.2) H Albumin 3.3 G/DL (3.4-5.0) L Globulin 5.0 g/dL Albumin/Globulin Ratio 0.7 (1.0-2.7) L Height (Feet): 6 Weight (Pounds): 198 General Appearance: alert Cardiovascular: normal rate Abdominal Exam: other - ostomy Boyd Emmanuel NP May 21, 2018 15:14
[2018-05-21] MEDS: Ertapenem 1 GM in NS 55 ML IVPB SCH (15:24)
[2018-05-21] MEDS ORDERED: NS 275ml ONE (15:34)
[2018-05-21 16:00] VITALS: BP 114/64
[2018-05-21 20:00] VITALS: BP 137/78
[2018-05-21] MEDS: Miralax 17gm pkt GT SCH (21:33)
[2018-05-21] MEDS: Dyna-Hex 2% Top Sol 2oz TOPIC SCH (21:33)
[2018-05-22] VITALS: BP 123/76
[2018-05-22] MEDS: NovoLOG Insulin Flexpen SUBQ SCH ×5 (01:14→23:38)
[2018-05-22 04:00] VITALS: BP 116/76
[2018-05-22] MEDS: Vancomycin 1500mg IVPB SCH (05:31)
[2018-05-22] MEDS: levETIRAcetam 500mg/5ml Liquid GT SCH ×3 (05:32→21:28)
[2018-05-22 05:43] LABS: ANION GAP 13 mmol/L (5-15); BLOOD UREA NITROGEN 11 mg/dL (7-18); CALCIUM 10.3 MG/DL (8.5-10.1); CARBON DIOXIDE 22 MMOL/L (21-32); CHLORIDE 99 MMOL/L (98-107); CREATININE 0.9 MG/DL (0.55-1.30); SODIUM 134 MMOL/L (136-145)
[2018-05-22 05:54] LABS: BASOPHILS % (AUTO) 0.6 % (0.0-2.0); EOSINOPHILS % (AUTO) 5.6 % (0.0-3.0); HEMATOCRIT 38.2 % (42.0-52.0); HEMOGLOBIN 12.3 G/DL (14.2-18.0); LYMPHOCYTES % (AUTO) 24.2 % (20.0-45.0); MEAN CORPUSCULAR VOLUME 85 FL (80-99); NEUTROPHILS % (AUTO) 62.6 % (45.0-75.0); PLATELET COUNT 258 K/UL (150-450); RED BLOOD COUNT 4.47 M/UL (4.70-6.10); RED CELL DISTRIBUTION WIDTH 14.9 % (11.6-14.8); WHITE BLOOD COUNT 11.3 K/UL (4.8-10.8)
--- NOTE | 2018-05-22 07:38 | Infectious Diseases Prog Note ---
Assessment/Plan Assessment/Plan Sepsis, resolving- 2ry to UTI and Bacteremia- ?pyelo. Possible PNA -u/a wbc 40-60, nit neg, leuk +2; ucx >100k E. aerogenes (S cefepime, cipro/ levo; R Zosyn) -BCX 01/23 E. aerogenes, prob Amp C (S cefepime, cipro/levo; R Zosyn), P. mirabilis ESBL (S Zosyn, Ertapenem); repeta 05/16 10/25 CoNS (suspect contaminant) , 05/18 Staph f/u final results if CoNS may need TTE and IE work up. -CXR 05/17: Increased left pleural effusion, over 3 days. Overall decreased interstitial congestion. Right infrahilar atelectasis -CXR: Cardiomegaly. Mild interstitial congestion. Suspect small bilateral pleural effusions -CT abd/p: Right lower quadrant double barrel colostomy, as described. Small peristomal hernia contains bowel loops without evidence of obstruction or strangulation. Left renal staghorn calculus. Bilateral intrarenal calyceal calculi. Borderline hydronephrosis on the right without evidence of downstream obstructive lesion. May indicate mild ureteral pelvic junction obstruction. Somewhat atrophic left kidney. Inspissated contrast ball within the distal sigmoid colon. Gastrostomy in good position. Nonspecific bilateral perinephric fat stranding, could indicate pyelonephritis or could be chronic. Newberry catheter in place. Apparent bladder wall thickening, possibly an artifact of under distention but cystitis is not excludable, particularly in view of mild perivesical fat stranding. Bilateral pulmonary parenchymal atelectasis and consolidation -Blood Cx from PICC CoNS 2/2 bottles Peripheral Neg- (May be contaminant but will repeat blood Cx given new leukocytosis if positive will need ECHO. - Blood Cx 05/20/18 - GPC - Will need TTE for IE work up and the PICC removed. Fever/Leukocytosis; increasing WBCs - Re-evaluate lines, Diarrhea? C. dif? DIVYA, improving Lactic acidosis, resolved chronic resp failure trach/vent dependant BPH GERD HTN DM2 seizure disorder colostomy s/p GT constipation VRE and MRSA colonized Plan: - Continue empiric IV Vancomycin #6 for bacteremia. -Continue Ertapenem #6/10 for Amp-C Enterobacter and ESBL P.mirabilis bacteremia ; will treat for 10-14 days -05/17 SP Zosyn #4 -f/u sets of Bcx for 05/20/18 - GPC per lab -TTE to r/o IE as blood cultures persistently positive - Repeat blood Cx today to document clearance - Will likely need the PICC removed -Monitor CBC/CMP, temperatures Thank you for this consultation. Will continue to follow along with you. Subjective Allergies: Coded Allergies: AZTREONAM (Verified Allergy, Unknown, 05/13/18) Subjective No acute events overnight, Patient PEG and Trached On Vent. 30% O2 and PEEP of 5 Called Micro for update on cultures from 05/20/18 There are some GPC on the plates Objective Vital Signs Last 24 Hour Vital Signs Date Time Temp Pulse Resp B/P (MAP) Pulse Ox O2 Delivery O2 Flow Rate FiO2 05/22/18 07:00 80 16 30 05/22/18 05:24 83 16 30 05/22/18 04:00 Mechanical Ventilator Mechanical Ventilator Mechanical Ventilator 05/22/18 04:00 30 05/22/18 04:00 98.3 83 16 116/76 (89) 98 98.3 05/22/18 04:00 84 05/22/18 02:55 81 17 30 05/22/18 00:55 90 17 30 05/22/18 00:00 30 05/22/18 00:00 82 05/22/18 00:00 Mechanical Ventilator Mechanical Ventilator Mechanical Ventilator 05/22/18 00:00 98.7 81 16 123/76 (92) 99 98.7 05/21/18 22:59 83 17 30 05/21/18 21:01 88 17 30 05/21/18 20:00 Mechanical Ventilator Mechanical Ventilator Mechanical Ventilator 05/21/18 20:00 83 05/21/18 20:00 98.4 84 16 137/78 (97) 100 98.4 05/21/18 20:00 30 05/21/18 18:53 92 16 30 05/21/18 17:12 84 16 30 05/21/18 16:00 Mechanical Ventilator Mechanical Ventilator Mechanical Ventilator 05/21/18 16:00 98.1 88 16 114/64 (81) 100 98.1 05/21/18 16:00 30 05/21/18 15:23 86 05/21/18 15:11 90 16 30 05/21/18 13:25 82 16 30 05/21/18 12:00 30 05/21/18 12:00 Mechanical Ventilator Mechanical Ventilator Mechanical Ventilator 05/21/18 12:00 98.1 100 16 114/75 (88) 100 98.1 05/21/18 11:55 87 05/21/18 11:28 85 16 30 05/21/18 09:29 90 19 30 05/21/18 08:00 30 05/21/18 08:00 97.2 81 18 114/81 (92) 100 97.2 05/21/18 08:00 Mechanical Ventilator Mechanical Ventilator Mechanical Ventilator 05/21/18 07:50 86 Height (Feet): 6 Weight (Pounds): 206 Objective GENERAL: No overt distress. Opens eyes HEENT: NCAT, DMM, No lymphadenopathy noted. Tracheostomy noted. PULM: CTAB CARDIOVASCULAR: RRR, S1 and S2. Tachycardic. No rubs or gallops. PULMONARY: Mild diffuse expiratory rhonchi with basilar rales. ABDOMEN: Obese and nondistended. The G-tube and stoma noted. EXTREMITIES: No edema. Fair pedal pulses. Microbiology Date/Time Source Procedure Growth Status 05/20/18 23:00 Blood Blood Culture - Preliminary NO GROWTH AFTER 24 HOURS Resulted 05/20/18 20:38 Blood Blood Culture - Preliminary NO GROWTH AFTER 24 HOURS Resulted Laboratory Tests Test 05/22/18 03:35 White Blood Count 11.3 K/UL (4.8-10.8) H Red Blood Count 4.47 M/UL (4.70-6.10) L Hemoglobin 12.3 G/DL (14.2-18.0) L Hematocrit 38.2 % (42.0-52.0) L Mean Corpuscular Volume 85 FL (80-99) Mean Corpuscular Hemoglobin 27.4 PG (27.0-31.0) Mean Corpuscular Hemoglobin Concent 32.1 G/DL (32.0-36.0) Red Cell Distribution Width 14.9 % (11.6-14.8) H Platelet Count 258 K/UL (150-450) Mean Platelet Volume 9.0 FL (6.5-10.1) Neutrophils (%) (Auto) 62.6 % (45.0-75.0) Lymphocytes (%) (Auto) 24.2 % (20.0-45.0) Monocytes (%) (Auto) 7.0 % (1.0-10.0) Eosinophils (%) (Auto) 5.6 % (0.0-3.0) H Basophils (%) (Auto) 0.6 % (0.0-2.0) Sodium Level 134 MMOL/L (136-145) L Potassium Level 4.0 MMOL/L (3.5-5.1) Chloride Level 99 MMOL/L (98-107) Carbon Dioxide Level 22 MMOL/L (21-32) Anion Gap 13 mmol/L (5-15) Blood Urea Nitrogen 11 mg/dL (7-18) Creatinine 0.9 MG/DL (0.55-1.30) Estimat Glomerular Filtration Rate > 60 mL/min (>60) Glucose Level 114 MG/DL (74-106) H Calcium Level 10.3 MG/DL (8.5-10.1) H Current Medications Medications (Trade) Dose Ordered Sig/Va Route PRN Reason Start Time Stop Time Status Last Admin Dose Admin Acetaminophen (Tylenol) 650 mg Q4H PRN ORAL FEVER 05/16/18 14:00 06/13/18 09:59 Baclofen (Lioresal) 10 mg EVERY 8 HOURS GT 05/20/18 14:00 06/13/18 12:59 05/22/18 05:32 Chlorhexidine Gluconate (Rebecca-Hex 2%) 1 applic DAILY@2000 TOPIC 05/16/18 20:00 06/13/18 19:59 05/21/18 21:33 Dextrose (Dextrose 50%) 25 ml STAT PRN IV Hypoglycemia 05/17/18 08:45 06/14/18 08:44 Dextrose (Dextrose 50%) 50 ml STAT PRN IV Hypoglycemia 05/17/18 08:45 06/14/18 08:44 Ertapenem 1 gm/ Sodium Chloride 55 ml @ 110 mls/hr Q24H IVPB 05/17/18 15:00 05/27/18 14:59 05/21/18 15:24 Heparin Sodium (Porcine) (Heparin 5000 units/ml) 5,000 units EVERY 12 HOURS SUBQ 05/16/18 21:00 06/13/18 20:59 05/21/18 21:35 Insulin Aspart (NovoLOG) Q6HR SUBQ 05/16/18 18:00 06/14/18 11:29 05/22/18 05:53 Lansoprazole (Prevacid) 30 mg DAILY GT 05/17/18 09:00 06/15/18 08:59 05/21/18 08:29 Levetiracetam (Keppra) 1,000 mg Q8HR GT 05/16/18 14:00 06/13/18 12:59 05/22/18 05:32 Ondansetron HCl (Zofran) 4 mg Q6H PRN IVP Nausea & Vomiting 05/16/18 16:00 06/13/18 09:59 Polyethylene Glycol (Miralax) 17 gm BEDTIME GT 05/20/18 21:00 06/14/18 20:59 05/21/18 21:33 Vancomycin HCl (Vanco rx to dose) 1 ea DAILY PRN MISC PER RX PROTOCOL 05/18/18 13:15 06/17/18 13:14 Vancomycin HCl/ Dextrose 250 ml @ 125 mls/hr Q24H IVPB 05/21/18 06:00 05/26/18 05:59 05/22/18 05:31 Kali Richter M.D. May 22, 2018 07:38
[2018-05-22 08:00] VITALS: BP 112/75
--- NOTE | 2018-05-22 09:06 | Nephrology Progress Note ---
Assessment/Plan Assessment/Plan 1. DIVYA- resolved, - OK for DC from renal point 2. Septis- resolved on Abx 3. Chronic Resp FL- trached on vent 4. Hyponatremia - Na at 134. - avoid excess free water 5. SZ- Luis Alberto Subjective Date patient seen: May 22, 2018 Time patient seen: 09:02 ROS Limited/Unobtainable: Yes Allergies: Coded Allergies: AZTREONAM (Verified Allergy, Unknown, 05/13/18) All Systems: reviewed and negative except above Subjective Patient stable. Trached on vent Objective Last 24 Hour Vital Signs Date Time Temp Pulse Resp B/P (MAP) Pulse Ox O2 Delivery O2 Flow Rate FiO2 05/22/18 08:00 30 05/22/18 08:00 Mechanical Ventilator Mechanical Ventilator Mechanical Ventilator 05/22/18 08:00 97.7 79 16 112/75 (87) 97 97.7 05/22/18 07:00 80 16 30 05/22/18 05:24 83 16 30 05/22/18 04:00 Mechanical Ventilator Mechanical Ventilator Mechanical Ventilator 05/22/18 04:00 30 05/22/18 04:00 98.3 83 16 116/76 (89) 98 98.3 05/22/18 04:00 84 05/22/18 02:55 81 17 30 05/22/18 00:55 90 17 30 05/22/18 00:00 30 05/22/18 00:00 82 05/22/18 00:00 Mechanical Ventilator Mechanical Ventilator Mechanical Ventilator 05/22/18 00:00 98.7 81 16 123/76 (92) 99 98.7 05/21/18 22:59 83 17 30 05/21/18 21:01 88 17 30 05/21/18 20:00 Mechanical Ventilator Mechanical Ventilator Mechanical Ventilator 05/21/18 20:00 83 05/21/18 20:00 98.4 84 16 137/78 (97) 100 98.4 05/21/18 20:00 30 05/21/18 18:53 92 16 30 05/21/18 17:12 84 16 30 05/21/18 16:00 Mechanical Ventilator Mechanical Ventilator Mechanical Ventilator 05/21/18 16:00 98.1 88 16 114/64 (81) 100 98.1 05/21/18 16:00 30 05/21/18 15:23 86 05/21/18 15:11 90 16 30 05/21/18 13:25 82 16 30 05/21/18 12:00 30 05/21/18 12:00 Mechanical Ventilator Mechanical Ventilator Mechanical Ventilator 05/21/18 12:00 98.1 100 16 114/75 (88) 100 98.1 05/21/18 11:55 87 05/21/18 11:28 85 16 30 05/21/18 09:29 90 19 30 Intake and Output 05/21/18 05/22/18 19:00 07:00 Intake Total 1080 ml 635 ml Output Total 1900 ml Balance -820 ml 635 ml IV Total 180 ml Tube Feeding 780 ml 585 ml Other 120 ml 50 ml Output Urine Total 1500 ml Stool Total 400 ml Laboratory Tests 05/22/18 03:35: White Blood Count 11.3H, Red Blood Count 4.47L, Hemoglobin 12.3L, Hematocrit 38.2L, Mean Corpuscular Volume 85, Mean Corpuscular Hemoglobin 27.4, Mean Corpuscular Hemoglobin Concent 32.1, Red Cell Distribution Width 14.9H, Platelet Count 258, Mean Platelet Volume 9.0, Neutrophils (%) (Auto) 62.6, Lymphocytes (%) (Auto) 24.2, Monocytes (%) (Auto) 7.0, Eosinophils (%) (Auto) 5.6H, Basophils (%) (Auto) 0.6, Sodium Level 134L, Potassium Level 4.0, Chloride Level 99, Carbon Dioxide Level 22, Anion Gap 13, Blood Urea Nitrogen 11 , Creatinine 0.9, Estimat Glomerular Filtration Rate > 60, Glucose Level 114H, Calcium Level 10.3H Height (Feet): 6 Weight (Pounds): 206 General Appearance: WD/WN, no apparent distress EENT: PERRL/EOMI Neck: non-tender, normal alignment Cardiovascular: normal peripheral pulses, normal rate Respiratory/Chest: rhonchi - bilaterally Abdomen: normal bowel sounds, non tender, soft Edema: no edema noted Arm (L), no edema noted Arm (R), no edema noted Leg (L), no edema noted Leg (R), no edema noted Pedal (L), no edema noted Pedal (R), no edema noted Generalized Mir Gann M.D. May 22, 2018 09:06
[2018-05-22] MEDS: Heparin 5000 units/ml inj SUBQ SCH ×2 (09:25→21:31)
--- NOTE | 2018-05-22 10:30 | Pulmonolgy Critical Care Note ---
Critical Care - Asmt/Plan Problems: (1) Acute on chronic respiratory failure (2) Acute on chronic renal insufficiency (3) Severe sepsis (4) Vegetative state (5) Colostomy in place (6) Diabetes mellitus Respiratory: monitor respiratory rate, adjust FIO2, CXR Cardiac: continue to monitor HR/BP Renal: F/U I&O, keep IV fluid Infectious Disease: check cultures Gastrointestinal: continue feedings/current rate Endocrine: check HgA1C, continue sliding scale insulin Hematologic: monitor H/H, transfuse if hgb<8.5 Neurologic: PRN Morphine, keep patient comfortable Affect: PRN ativan Prophylaxis: Heparin Disposition: keep in ICU Notes Reviewed: tub rider, renal Discussed with: nurses, consultants, lead case managermanager drilling - Objective Last 24 Hour Vital Signs Date Time Temp Pulse Resp B/P (MAP) Pulse Ox O2 Delivery O2 Flow Rate FiO2 05/22/18 09:10 84 18 30 05/22/18 08:00 30 05/22/18 08:00 Mechanical Ventilator Mechanical Ventilator Mechanical Ventilator 05/22/18 08:00 97.7 79 16 112/75 (87) 97 97.7 05/22/18 07:58 84 05/22/18 07:00 80 16 30 05/22/18 05:24 83 16 30 05/22/18 04:00 Mechanical Ventilator Mechanical Ventilator Mechanical Ventilator 05/22/18 04:00 30 05/22/18 04:00 98.3 83 16 116/76 (89) 98 98.3 05/22/18 04:00 84 05/22/18 02:55 81 17 30 05/22/18 00:55 90 17 30 05/22/18 00:00 30 05/22/18 00:00 82 05/22/18 00:00 Mechanical Ventilator Mechanical Ventilator Mechanical Ventilator 05/22/18 00:00 98.7 81 16 123/76 (92) 99 98.7 05/21/18 22:59 83 17 30 05/21/18 21:01 88 17 30 05/21/18 20:00 Mechanical Ventilator Mechanical Ventilator Mechanical Ventilator 05/21/18 20:00 83 05/21/18 20:00 98.4 84 16 137/78 (97) 100 98.4 05/21/18 20:00 30 05/21/18 18:53 92 16 30 05/21/18 17:12 84 16 30 05/21/18 16:00 Mechanical Ventilator Mechanical Ventilator Mechanical Ventilator 05/21/18 16:00 98.1 88 16 114/64 (81) 100 98.1 05/21/18 16:00 30 05/21/18 15:23 86 05/21/18 15:11 90 16 30 05/21/18 13:25 82 16 30 05/21/18 12:00 30 05/21/18 12:00 Mechanical Ventilator Mechanical Ventilator Mechanical Ventilator 05/21/18 12:00 98.1 100 16 114/75 (88) 100 98.1 05/21/18 11:55 87 05/21/18 11:28 85 16 30 Status: obtunded HEENT: atraumatic Neck: full ROM Lungs: chest wall tender Heart: HR/BP stable, regular Abdomen: active bowel sounds Extremities: no C/C/E Micro: Microbiology Date/Time Source Procedure Growth Status 05/20/18 23:00 Blood Blood Culture - Preliminary Resulted 05/20/18 20:38 Blood Blood Culture - Preliminary NO GROWTH AFTER 24 HOURS Resulted Accucheck: 121 Critical Care - Subjective ROS Limited/Unobtainable: Yes Condition: critical EKG Rhythm: Sinus Rhythm FI02: 30 Vent Support Breath Rate: 16 Vent Support Mode: AC Vent Tidal Volume: 600 Sputum Amount: Small PEEP: 5.0 PIP: 30 Tube Feeding Amount: 65 I&O: Intake and Output 05/21/18 05/22/18 19:00 07:00 Intake Total 1080 ml 635 ml Output Total 1900 ml Balance -820 ml 635 ml IV Total 180 ml Tube Feeding 780 ml 585 ml Other 120 ml 50 ml Output Urine Total 1500 ml Stool Total 400 ml Labs: Laboratory Tests Test 05/22/18 03:35 White Blood Count 11.3 K/UL (4.8-10.8) H Red Blood Count 4.47 M/UL (4.70-6.10) L Hemoglobin 12.3 G/DL (14.2-18.0) L Hematocrit 38.2 % (42.0-52.0) L Mean Corpuscular Volume 85 FL (80-99) Mean Corpuscular Hemoglobin 27.4 PG (27.0-31.0) Mean Corpuscular Hemoglobin Concent 32.1 G/DL (32.0-36.0) Red Cell Distribution Width 14.9 % (11.6-14.8) H Platelet Count 258 K/UL (150-450) Mean Platelet Volume 9.0 FL (6.5-10.1) Neutrophils (%) (Auto) 62.6 % (45.0-75.0) Lymphocytes (%) (Auto) 24.2 % (20.0-45.0) Monocytes (%) (Auto) 7.0 % (1.0-10.0) Eosinophils (%) (Auto) 5.6 % (0.0-3.0) H Basophils (%) (Auto) 0.6 % (0.0-2.0) Sodium Level 134 MMOL/L (136-145) L Potassium Level 4.0 MMOL/L (3.5-5.1) Chloride Level 99 MMOL/L (98-107) Carbon Dioxide Level 22 MMOL/L (21-32) Anion Gap 13 mmol/L (5-15) Blood Urea Nitrogen 11 mg/dL (7-18) Creatinine 0.9 MG/DL (0.55-1.30) Estimat Glomerular Filtration Rate > 60 mL/min (>60) Glucose Level 114 MG/DL (74-106) H Calcium Level 10.3 MG/DL (8.5-10.1) H Nico Goetz MD May 22, 2018 10:30
[2018-05-22] MEDS ORDERED: Lidocaine 1% Plain 30 ml INJ PRN (11:00)
[2018-05-22] MEDS ORDERED: Heparin 2000 units/Ns 1000ml INJ PRN (11:00)
--- NOTE | 2018-05-22 11:21 | GI Progress Note ---
Assessment/Plan Problems: (1) Parastomal hernia ICD Codes: K43.5 - Parastomal hernia without obstruction or gangrene SNOMED: 930234002 Qualifiers: Qualified Codes: K43.5 - Parastomal hernia without obstruction or gangrene (2) Stoma malfunction SNOMED: 013291873 (3) Colostomy in place ICD Codes: Z93.3 - Colostomy status SNOMED: 544872473, 110844518 (4) Vegetative state ICD Codes: R40.3 - Persistent vegetative state SNOMED: 62910520 (5) Diabetes mellitus ICD Codes: E11.9 - Type 2 diabetes mellitus without complications SNOMED: 06732647 (6) Acute on chronic respiratory failure ICD Codes: J96.20 - Acute and chronic respiratory failure, unspecified whether with hypoxia or hypercapnia SNOMED: 35910389 (7) Severe sepsis ICD Codes: A41.9 - Sepsis, unspecified organism; R65.20 - Severe sepsis without septic shock SNOMED: 02561116 Status: stable, unchanged Status Narrative Discussed with Dr. Prater. Assessment/Plan prolapse stoma assessed >> no s/sx of infection. no obstruction. anemia work up reviewed >> iron deficiency G tube dependent hepatitis panel negative OB negative supportive care monitor H&H, prn transfusions venofer ppi GTFs per RD, adv to goal GT site care daily/prn abx bowel regime fu labs The patient was seen and examined at bedside and all new and available data was reviewed in the patients chart. I agree with the above findings, impression and plan. (Patient seen earlier today. Signature stamp does not reflect patient encounter time.). - Dae Prater MD Subjective Subjective limited Objective Last 24 Hour Vital Signs Date Time Temp Pulse Resp B/P (MAP) Pulse Ox O2 Delivery O2 Flow Rate FiO2 05/22/18 11:11 82 16 30 05/22/18 09:10 84 18 30 05/22/18 08:00 30 05/22/18 08:00 Mechanical Ventilator Mechanical Ventilator Mechanical Ventilator 05/22/18 08:00 97.7 79 16 112/75 (87) 97 97.7 05/22/18 07:58 84 05/22/18 07:00 80 16 30 05/22/18 05:24 83 16 30 05/22/18 04:00 Mechanical Ventilator Mechanical Ventilator Mechanical Ventilator 05/22/18 04:00 30 05/22/18 04:00 98.3 83 16 116/76 (89) 98 98.3 05/22/18 04:00 84 05/22/18 02:55 81 17 30 05/22/18 00:55 90 17 30 05/22/18 00:00 30 05/22/18 00:00 82 05/22/18 00:00 Mechanical Ventilator Mechanical Ventilator Mechanical Ventilator 05/22/18 00:00 98.7 81 16 123/76 (92) 99 98.7 05/21/18 22:59 83 17 30 05/21/18 21:01 88 17 30 05/21/18 20:00 Mechanical Ventilator Mechanical Ventilator Mechanical Ventilator 05/21/18 20:00 83 05/21/18 20:00 98.4 84 16 137/78 (97) 100 98.4 05/21/18 20:00 30 05/21/18 18:53 92 16 30 05/21/18 17:12 84 16 30 05/21/18 16:00 Mechanical Ventilator Mechanical Ventilator Mechanical Ventilator 05/21/18 16:00 98.1 88 16 114/64 (81) 100 98.1 05/21/18 16:00 30 05/21/18 15:23 86 05/21/18 15:11 90 16 30 05/21/18 13:25 82 16 30 05/21/18 12:00 30 05/21/18 12:00 Mechanical Ventilator Mechanical Ventilator Mechanical Ventilator 05/21/18 12:00 98.1 100 16 114/75 (88) 100 98.1 05/21/18 11:55 87 05/21/18 11:28 85 16 30 Intake and Output 05/21/18 05/22/18 19:00 07:00 Intake Total 1080 ml 635 ml Output Total 1900 ml Balance -820 ml 635 ml IV Total 180 ml Tube Feeding 780 ml 585 ml Other 120 ml 50 ml Output Urine Total 1500 ml Stool Total 400 ml Laboratory Tests Test 05/22/18 03:35 White Blood Count 11.3 K/UL (4.8-10.8) H Red Blood Count 4.47 M/UL (4.70-6.10) L Hemoglobin 12.3 G/DL (14.2-18.0) L Hematocrit 38.2 % (42.0-52.0) L Mean Corpuscular Volume 85 FL (80-99) Mean Corpuscular Hemoglobin 27.4 PG (27.0-31.0) Mean Corpuscular Hemoglobin Concent 32.1 G/DL (32.0-36.0) Red Cell Distribution Width 14.9 % (11.6-14.8) H Platelet Count 258 K/UL (150-450) Mean Platelet Volume 9.0 FL (6.5-10.1) Neutrophils (%) (Auto) 62.6 % (45.0-75.0) Lymphocytes (%) (Auto) 24.2 % (20.0-45.0) Monocytes (%) (Auto) 7.0 % (1.0-10.0) Eosinophils (%) (Auto) 5.6 % (0.0-3.0) H Basophils (%) (Auto) 0.6 % (0.0-2.0) Sodium Level 134 MMOL/L (136-145) L Potassium Level 4.0 MMOL/L (3.5-5.1) Chloride Level 99 MMOL/L (98-107) Carbon Dioxide Level 22 MMOL/L (21-32) Anion Gap 13 mmol/L (5-15) Blood Urea Nitrogen 11 mg/dL (7-18) Creatinine 0.9 MG/DL (0.55-1.30) Estimat Glomerular Filtration Rate > 60 mL/min (>60) Glucose Level 114 MG/DL (74-106) H Calcium Level 10.3 MG/DL (8.5-10.1) H Height (Feet): 6 Weight (Pounds): 206 General Appearance: WD/WN, no apparent distress, alert Cardiovascular: normal rate Respiratory/Chest: normal breath sounds, no respiratory distress Abdominal Exam: normal bowel sounds, non tender, soft, other - prolapse ostomy Extremities: non-tender Boyd Emmanuel [employer] May 22, 2018 11:21
[2018-05-22 12:00] VITALS: BP 109/70
--- NOTE | 2018-05-22 12:01 | General Surgery Progress Note ---
General Surgery-Progress Note Subjective Additional Comments no acute events. stable. ostomy stable Objective Last 24 Hour Vital Signs Date Time Temp Pulse Resp B/P (MAP) Pulse Ox O2 Delivery O2 Flow Rate FiO2 05/22/18 11:11 82 16 30 05/22/18 09:10 84 18 30 05/22/18 08:00 30 05/22/18 08:00 Mechanical Ventilator Mechanical Ventilator Mechanical Ventilator 05/22/18 08:00 97.7 79 16 112/75 (87) 97 97.7 05/22/18 07:58 84 05/22/18 07:00 80 16 30 05/22/18 05:24 83 16 30 05/22/18 04:00 Mechanical Ventilator Mechanical Ventilator Mechanical Ventilator 05/22/18 04:00 30 05/22/18 04:00 98.3 83 16 116/76 (89) 98 98.3 05/22/18 04:00 84 05/22/18 02:55 81 17 30 05/22/18 00:55 90 17 30 05/22/18 00:00 30 05/22/18 00:00 82 05/22/18 00:00 Mechanical Ventilator Mechanical Ventilator Mechanical Ventilator 05/22/18 00:00 98.7 81 16 123/76 (92) 99 98.7 05/21/18 22:59 83 17 30 05/21/18 21:01 88 17 30 05/21/18 20:00 Mechanical Ventilator Mechanical Ventilator Mechanical Ventilator 05/21/18 20:00 83 05/21/18 20:00 98.4 84 16 137/78 (97) 100 98.4 05/21/18 20:00 30 05/21/18 18:53 92 16 30 05/21/18 17:12 84 16 30 05/21/18 16:00 Mechanical Ventilator Mechanical Ventilator Mechanical Ventilator 05/21/18 16:00 98.1 88 16 114/64 (81) 100 98.1 05/21/18 16:00 30 05/21/18 15:23 86 05/21/18 15:11 90 16 30 05/21/18 13:25 82 16 30 I&O Intake and Output 05/21/18 05/22/18 19:00 07:00 Intake Total 1080 ml 635 ml Output Total 1900 ml Balance -820 ml 635 ml IV Total 180 ml Tube Feeding 780 ml 585 ml Other 120 ml 50 ml Output Urine Total 1500 ml Stool Total 400 ml Wound: clean Drains: other Cardiovascular: RSR Respiratory: clear Abdomen: soft, distended, non-tender, present bowel sounds, other - ostomy viable and functional Laboratory Tests Test 05/22/18 03:35 White Blood Count 11.3 K/UL (4.8-10.8) H Red Blood Count 4.47 M/UL (4.70-6.10) L Hemoglobin 12.3 G/DL (14.2-18.0) L Hematocrit 38.2 % (42.0-52.0) L Mean Corpuscular Volume 85 FL (80-99) Mean Corpuscular Hemoglobin 27.4 PG (27.0-31.0) Mean Corpuscular Hemoglobin Concent 32.1 G/DL (32.0-36.0) Red Cell Distribution Width 14.9 % (11.6-14.8) H Platelet Count 258 K/UL (150-450) Mean Platelet Volume 9.0 FL (6.5-10.1) Neutrophils (%) (Auto) 62.6 % (45.0-75.0) Lymphocytes (%) (Auto) 24.2 % (20.0-45.0) Monocytes (%) (Auto) 7.0 % (1.0-10.0) Eosinophils (%) (Auto) 5.6 % (0.0-3.0) H Basophils (%) (Auto) 0.6 % (0.0-2.0) Sodium Level 134 MMOL/L (136-145) L Potassium Level 4.0 MMOL/L (3.5-5.1) Chloride Level 99 MMOL/L (98-107) Carbon Dioxide Level 22 MMOL/L (21-32) Anion Gap 13 mmol/L (5-15) Blood Urea Nitrogen 11 mg/dL (7-18) Creatinine 0.9 MG/DL (0.55-1.30) Estimat Glomerular Filtration Rate > 60 mL/min (>60) Glucose Level 114 MG/DL (74-106) H Calcium Level 10.3 MG/DL (8.5-10.1) H Plan Problems: (1) Stoma malfunction (2) Parastomal hernia Assessment & Plan: 52M with history of prior loop colostomy. proximal loop stable. distal with impacted contrast stool but stable. parastomal hernia with small bowel contents in hernia. no obstruction noted at this time. larger appearance of patients stoma is because location and use of loop colostomy in hepatic flexure. it is otherwise viable and stable. Would Highly recommend fixing parastomal hernia but can be done electively. if obstructs will need urgent repair. currently non obstructive will monitor and follow with recs. bowel care spoke with today and explained above. will plan for d/c soon. if desired will plan for elective repair at later time once not acutely sick in the hospital. thank you for this consultation. (3) Severe sepsis Tino Mancilla May 22, 2018 12:01
--- NOTE | 2018-05-22 14:34 | Cardiology Report ---
APPROVED REPORT EXAM: Two-dimensional and M-mode echocardiogram with Doppler and color Doppler. INDICATION Vegetation M-Mode DIMENSIONS IVSd1.9 (0.7-1.1cm)Left Atrium (MM)3.1 (1.6-4.0cm) LVDd3.4 (3.5-5.6cm)Aortic Root3.8 (2.0-3.7cm) PWd1.5 (0.7-1.1cm)Aortic Cusp Exc.2.1 (1.5-2.0cm) LVDs2.1 (2.5-4.0cm) PWs1.6 cm Technically difficult study due to pts position. Normal left ventricular chamber size, systolic function and wall motion to extent visualized. Left ventricular ejection fraction estimated to be 55-60 %. Moderate left ventricular hypertrophy. No evidence of pericardial effusion. All other cardiac chamber sizes are within normal limits. Focal aortic valve sclerosis with adequate cusp excursion. Mild aortic root dilatation. Thickened mitral valve leaflets with normal excursion. Mitral annulus and aortic root calcification. Pulmonic valve not well visualized. Normal tricuspid valve structure. IVC at normal size with physiologic collapse. No discrete vegetations seen, however SBE may not be excluded by transthoracic 2-D echo. Consider JOE if clinically indicated. A color flow and spectral Doppler study was performed and revealed: Trace mitral regurgitation. Mitral diastolic velocities suggest reduced left ventricular relaxation c/w mild LV diastolic dysfunction (Grade I ). Trace tricuspid regurgitation. Tricuspid systolic velocities suggests peak right ventricular systolic pressure of 16 mmHg.
[2018-05-22 16:00] VITALS: BP 118/70
--- NOTE | 2018-05-22 16:44 | Diagnostic Imaging Report ---
Indications: Needs long-term IV access Technique: Procedure performed at bedside. Ultrasound confirms patent compressible right brachial vein. Total sterile technique, including sterile probe cover and sterile gel, hat, mask, sterile gown, large sterile drape, and preparation with 2% chlorhexidine utilized. Local anesthesia with 1% lidocaine. Under real-time ultrasound guidance, puncture brachial vein using 21-gauge needle, documented and archived, passage 0.018 guidewire under direct fluoroscopy, which would not pass centrally beyond about 35 cm. Exchange for 5 [place] peel-away sheath. 5 [place] dual-lumen power PICC cut to originally to 41 cm. It was inserted through the peel-away sheath. Multiple manipulations attempted in order to advance the catheter, but it would not advance beyond about 20 cm, presumably due to central venoocclusive disease. The catheter was then re-cut to 20 cm. Peel-away sheath and guidewire removed. Catheter fixed to the skin. Both catheter ports aspirated and flushed. Patient tolerated procedure well, without immediate complication. Follow-up chest radiograph documents catheter tip position at the level of the right axillary vein. Impression: Attempted placement of right arm PICC, cut short due to limited filling of an centrally, presumed central venoocclusive disease. Catheter cut short to 20 cm, suitable for use as a midline only.
[2018-05-22] MEDS: Ertapenem 1 GM in NS 55 ML IVPB SCH (17:04)
--- NOTE | 2018-05-22 18:11 | General Progress Note ---
Assessment/Plan Status: unchanged Assessment/Plan # Anemia of chronic disease. No hemolysis, peripheral smear reviewed, ferritin is elevated. --> Continue to closely monitor for improvement. --> Anemia w/u has been reviewed. Will trend cbc daily. --> Hgb goal >7 # Leukocytosis - Sepsis with elevated temperature of 103 degrees Fahrenheit. --> Lactic acid pending, was elevated upon admission. --> Pt on antibiotics, has received a dose of Zosyn and currently is on vancomycin q.12 h. --> Currently afebrile. --> Appreciate Infectious Disease consult. # Acute kidney injury. --> Currently on IV fluids, IV bolus given to see if the patient responds along with IV pressor as needed. --> Closely monitor with Nephrology team. # Septic shock, use antibiotic per ID services. --> potential pna, bacteremia # Respiratory failure, status post tracheostomy, on mechanical ventilation per Dr. Goetz. # Hypercalcemia. Monitor PTH and calcium level The time the note was entered does not necessarily correspond to the time the patient was seen. Subjective Date patient seen: May 22, 2018 ROS Limited/Unobtainable: Yes Hematologic/Lymphatic: Reports: anemia Allergies: Coded Allergies: AZTREONAM (Verified Allergy, Unknown, 05/13/18) All Systems: reviewed and negative except above Subjective Pt remains obtunded, on trach/vent. No acute events. H/H stable. No recent seizure activity. Objective Last 24 Hour Vital Signs Date Time Temp Pulse Resp B/P (MAP) Pulse Ox O2 Delivery O2 Flow Rate FiO2 05/22/18 17:29 91 16 30 05/22/18 16:00 30 05/22/18 16:00 97.9 82 16 118/70 (86) 99 97.9 05/22/18 16:00 Mechanical Ventilator Mechanical Ventilator Mechanical Ventilator 05/22/18 15:26 83 05/22/18 15:13 86 19 30 05/22/18 13:09 84 17 30 05/22/18 12:00 Mechanical Ventilator Mechanical Ventilator Mechanical Ventilator 05/22/18 12:00 97.7 84 16 109/70 (83) 97 97.7 05/22/18 12:00 30 05/22/18 11:47 87 05/22/18 11:11 82 16 30 05/22/18 09:10 84 18 30 05/22/18 08:00 30 05/22/18 08:00 Mechanical Ventilator Mechanical Ventilator Mechanical Ventilator 05/22/18 08:00 97.7 79 16 112/75 (87) 97 97.7 05/22/18 07:58 84 05/22/18 07:00 80 16 30 05/22/18 05:24 83 16 30 05/22/18 04:00 Mechanical Ventilator Mechanical Ventilator Mechanical Ventilator 05/22/18 04:00 30 05/22/18 04:00 98.3 83 16 116/76 (89) 98 98.3 05/22/18 04:00 84 05/22/18 02:55 81 17 30 05/22/18 00:55 90 17 30 05/22/18 00:00 30 05/22/18 00:00 82 05/22/18 00:00 Mechanical Ventilator Mechanical Ventilator Mechanical Ventilator 05/22/18 00:00 98.7 81 16 123/76 (92) 99 98.7 05/21/18 22:59 83 17 30 05/21/18 21:01 88 17 30 05/21/18 20:00 Mechanical Ventilator Mechanical Ventilator Mechanical Ventilator 05/21/18 20:00 83 05/21/18 20:00 98.4 84 16 137/78 (97) 100 98.4 05/21/18 20:00 30 05/21/18 18:53 92 16 30 Intake and Output 05/21/18 05/22/18 19:00 07:00 Intake Total 1080 ml 635 ml Output Total 1900 ml Balance -820 ml 635 ml IV Total 180 ml Tube Feeding 780 ml 585 ml Other 120 ml 50 ml Output Urine Total 1500 ml Stool Total 400 ml Laboratory Tests 05/22/18 03:35: White Blood Count 11.3H, Red Blood Count 4.47L, Hemoglobin 12.3L, Hematocrit 38.2L, Mean Corpuscular Volume 85, Mean Corpuscular Hemoglobin 27.4, Mean Corpuscular Hemoglobin Concent 32.1, Red Cell Distribution Width 14.9H, Platelet Count 258, Mean Platelet Volume 9.0, Neutrophils (%) (Auto) 62.6, Lymphocytes (%) (Auto) 24.2, Monocytes (%) (Auto) 7.0, Eosinophils (%) (Auto) 5.6H, Basophils (%) (Auto) 0.6, Sodium Level 134L, Potassium Level 4.0, Chloride Level 99, Carbon Dioxide Level 22, Anion Gap 13, Blood Urea Nitrogen 11 , Creatinine 0.9, Estimat Glomerular Filtration Rate > 60, Glucose Level 114H, Calcium Level 10.3H Height (Feet): 6 Weight (Pounds): 206 General Appearance: no apparent distress, lethargic EENT: PERRL/EOMI Neck: normal alignment Cardiovascular: normal peripheral pulses Respiratory/Chest: no respiratory distress Abdomen: soft Jimmy Fleming MD May 22, 2018 18:11
[2018-05-22] MEDS ORDERED: Tubing IV Secondary IV ONE (18:44)
[2018-05-22] MEDS ORDERED: NS 275ml ONE (18:44)
[2018-05-22 20:00] VITALS: BP 128/70
[2018-05-22] MEDS: Dyna-Hex 2% Top Sol 2oz TOPIC SCH (21:28)
[2018-05-22] MEDS: Miralax 17gm pkt GT SCH (21:31)
[2018-05-23] VITALS: BP 123/66
[2018-05-23 04:00] VITALS: BP 111/61
[2018-05-23 05:10] LABS: BASOPHILS % (AUTO) 0.8 % (0.0-2.0); EOSINOPHILS % (AUTO) 4.4 % (0.0-3.0); HEMOGLOBIN 12.7 G/DL (14.2-18.0); LYMPHOCYTES % (AUTO) 23.8 % (20.0-45.0); MEAN CORPUSCULAR VOLUME 85 FL (80-99); MONOCYTES % (AUTO) 5.1 % (1.0-10.0); PLATELET COUNT 270 K/UL (150-450); RED BLOOD COUNT 4.69 M/UL (4.70-6.10); RED CELL DISTRIBUTION WIDTH 15.1 % (11.6-14.8); WHITE BLOOD COUNT 10.3 K/UL (4.8-10.8)
[2018-05-23 05:21] LABS: ALANINE AMINOTRANSFERASE 44 U/L (12-78); ALBUMIN 3.6 G/DL (3.4-5.0); ALBUMIN/GLOBULIN RATIO 0.7 (1.0-2.7); ALKALINE PHOSPHATASE 133 U/L (46-116); ANION GAP 13 mmol/L (5-15); ASPARTATE AMINO TRANSFERASE 22 U/L (15-37); BILIRUBIN,TOTAL 0.5 MG/DL (0.2-1.0); BLOOD UREA NITROGEN 12 mg/dL (7-18); CALCIUM 10.2 MG/DL (8.5-10.1); CARBON DIOXIDE 22 MMOL/L (21-32); CHLORIDE 98 MMOL/L (98-107); PHOSPHORUS 2.6 MG/DL (2.5-4.9); POTASSIUM 4.2 MMOL/L (3.5-5.1); SODIUM 133 MMOL/L (136-145)
[2018-05-23] MEDS: levETIRAcetam 500mg/5ml Liquid GT SCH ×3 (05:56→21:35)
[2018-05-23] MEDS: NovoLOG Insulin Flexpen SUBQ SCH ×4 (05:59→23:26)
[2018-05-23] MEDS: Vancomycin 1250mg/D5W 250ml IVPB SCH ×2 (06:25→23:23)
[2018-05-23 08:00] VITALS: BP 112/62
--- NOTE | 2018-05-23 08:20 | General Progress Note ---
Assessment/Plan Status: unchanged Assessment/Plan # Anemia of chronic disease. No hemolysis, peripheral smear reviewed, ferritin is elevated. --> Continue to closely monitor for improvement. --> Anemia w/u has been reviewed. Will trend cbc daily. --> Hgb goal >7 # Leukocytosis - Sepsis with elevated temperature of 103 degrees Fahrenheit. --> Lactic acid pending, was elevated upon admission. --> Pt on antibiotics, has received a dose of Zosyn and currently is on vancomycin q.12 h. --> Currently afebrile. --> Appreciate Infectious Disease consult. # Acute kidney injury. --> Currently on IV fluids, IV bolus given to see if the patient responds along with IV pressor as needed. --> Closely monitor with Nephrology team. # Septic shock, use antibiotic per ID services. --> potential pna, bacteremia # Respiratory failure, status post tracheostomy, on mechanical ventilation per Dr. Goetz. # Hypercalcemia. Monitor PTH and calcium level The time the note was entered does not necessarily correspond to the time the patient was seen. Subjective Date patient seen: May 23, 2018 ROS Limited/Unobtainable: Yes Hematologic/Lymphatic: Reports: anemia Allergies: Coded Allergies: AZTREONAM (Verified Allergy, Unknown, 05/13/18) All Systems: reviewed and negative except above Subjective Pt remains obtunded, on trach/vent. No acute events. H/H stable. No recent seizure activity. Objective Last 24 Hour Vital Signs Date Time Temp Pulse Resp B/P (MAP) Pulse Ox O2 Delivery O2 Flow Rate FiO2 05/23/18 08:11 87 16 30 05/23/18 05:05 93 16 30 05/23/18 04:00 90 05/23/18 04:00 98.4 91 16 111/61 (78) 100 98.4 05/23/18 04:00 Mechanical Ventilator Mechanical Ventilator Mechanical Ventilator 05/23/18 04:00 30 05/23/18 03:25 89 16 30 05/23/18 02:33 99.0 05/23/18 01:34 97.9 05/23/18 01:16 103 22 30 05/23/18 00:00 Mechanical Ventilator Mechanical Ventilator Mechanical Ventilator 05/23/18 00:00 98 05/23/18 00:00 99.0 81 17 123/66 (85) 100 99.0 05/22/18 23:30 97 16 30 05/22/18 21:23 80 17 30 05/22/18 20:00 30 05/22/18 20:00 Mechanical Ventilator Mechanical Ventilator Mechanical Ventilator 05/22/18 20:00 82 05/22/18 20:00 97.9 84 17 128/70 (89) 97 97.9 05/22/18 19:46 81 16 30 05/22/18 17:29 91 16 30 05/22/18 16:00 30 05/22/18 16:00 97.9 82 16 118/70 (86) 99 97.9 05/22/18 16:00 Mechanical Ventilator Mechanical Ventilator Mechanical Ventilator 05/22/18 15:26 83 05/22/18 15:13 86 19 30 05/22/18 13:09 84 17 30 05/22/18 12:00 Mechanical Ventilator Mechanical Ventilator Mechanical Ventilator 05/22/18 12:00 97.7 84 16 109/70 (83) 97 97.7 05/22/18 12:00 30 05/22/18 11:47 87 05/22/18 11:11 82 16 30 05/22/18 09:10 84 18 30 Intake and Output 05/22/18 05/23/18 19:00 07:00 Intake Total 955 ml 700 ml Output Total 1250 ml 250 ml Balance -295 ml 450 ml IV Total 55 ml Tube Feeding 780 ml 650 ml Other 120 ml 50 ml Output Urine Total 800 ml Stool Total 450 ml 250 ml Laboratory Tests 05/23/18 05:00: White Blood Count 10.3, Red Blood Count 4.69L, Hemoglobin 12.7L, Hematocrit 40.0L, Mean Corpuscular Volume 85, Mean Corpuscular Hemoglobin 27.1, Mean Corpuscular Hemoglobin Concent 31.8L, Red Cell Distribution Width 15.1H, Platelet Count 270, Mean Platelet Volume 8.4, Neutrophils (%) (Auto) 66.0, Lymphocytes (%) (Auto) 23.8, Monocytes (%) (Auto) 5.1, Eosinophils (%) (Auto) 4.4H, Basophils (%) (Auto) 0.8, Sodium Level 133L, Potassium Level 4.2, Chloride Level 98, Carbon Dioxide Level 22, Anion Gap 13, Blood Urea Nitrogen 12 , Creatinine 1.0, Estimat Glomerular Filtration Rate > 60, Glucose Level 132H, Calcium Level 10.2H, Phosphorus Level 2.6, Magnesium Level 1.8, Total Bilirubin 0.5, Aspartate Amino Transf (AST/SGOT) 22, Alanine Aminotransferase (ALT/SGPT) 44, Alkaline Phosphatase 133H, Total Protein 9.0H, Albumin 3.6, Globulin 5.4, Albumin/Globulin Ratio 0.7L, Vancomycin Level Trough 13.6H Height (Feet): 6 Weight (Pounds): 205 General Appearance: no apparent distress, lethargic EENT: PERRL/EOMI Neck: normal alignment Cardiovascular: normal peripheral pulses Respiratory/Chest: no respiratory distress Abdomen: soft Jimmy Fleming MD May 23, 2018 08:20
[2018-05-23] MEDS: Heparin 5000 units/ml inj SUBQ SCH ×2 (08:30→20:56)
--- NOTE | 2018-05-23 10:25 | GI Progress Note ---
Assessment/Plan Problems: (1) Parastomal hernia ICD Codes: K43.5 - Parastomal hernia without obstruction or gangrene SNOMED: 419505035 Qualifiers: Qualified Codes: K43.5 - Parastomal hernia without obstruction or gangrene (2) Stoma malfunction SNOMED: 066233225 (3) Colostomy in place ICD Codes: Z93.3 - Colostomy status SNOMED: 276553885, 319199480 (4) Vegetative state ICD Codes: R40.3 - Persistent vegetative state SNOMED: 93949024 (5) Diabetes mellitus ICD Codes: E11.9 - Type 2 diabetes mellitus without complications SNOMED: 76561991 (6) Acute on chronic respiratory failure ICD Codes: J96.20 - Acute and chronic respiratory failure, unspecified whether with hypoxia or hypercapnia SNOMED: 92104321 (7) Severe sepsis ICD Codes: A41.9 - Sepsis, unspecified organism; R65.20 - Severe sepsis without septic shock SNOMED: 18575641 Status: unchanged Status Narrative Discussed with Dr. Prater. Assessment/Plan prolapse stoma assessed >> no s/sx of infection. no obstruction. anemia work up reviewed >> iron deficiency G tube dependent hepatitis panel negative OB negative supportive care monitor H&H, prn transfusions venofer ppi GTFs per RD, adv to goal GT site care daily/prn abx bowel regime fu labs The patient was seen and examined at bedside and all new and available data was reviewed in the patients chart. I agree with the above findings, impression and plan. (Patient seen earlier today. Signature stamp does not reflect patient encounter time.). - Dae Prater MD Subjective Subjective limited Objective Last 24 Hour Vital Signs Date Time Temp Pulse Resp B/P (MAP) Pulse Ox O2 Delivery O2 Flow Rate FiO2 05/23/18 08:56 88 16 30 05/23/18 08:20 90 05/23/18 08:11 87 16 30 05/23/18 08:00 30 05/23/18 08:00 Mechanical Ventilator Mechanical Ventilator Mechanical Ventilator 05/23/18 05:05 93 16 30 05/23/18 04:00 90 05/23/18 04:00 98.4 91 16 111/61 (78) 100 98.4 05/23/18 04:00 Mechanical Ventilator Mechanical Ventilator Mechanical Ventilator 05/23/18 04:00 30 05/23/18 03:25 89 16 30 05/23/18 02:33 99.0 05/23/18 01:34 97.9 05/23/18 01:16 103 22 30 05/23/18 00:00 Mechanical Ventilator Mechanical Ventilator Mechanical Ventilator 05/23/18 00:00 98 05/23/18 00:00 99.0 81 17 123/66 (85) 100 99.0 05/22/18 23:30 97 16 30 05/22/18 21:23 80 17 30 05/22/18 20:00 30 05/22/18 20:00 Mechanical Ventilator Mechanical Ventilator Mechanical Ventilator 05/22/18 20:00 82 05/22/18 20:00 97.9 84 17 128/70 (89) 97 97.9 05/22/18 19:46 81 16 30 05/22/18 17:29 91 16 30 05/22/18 16:00 30 05/22/18 16:00 97.9 82 16 118/70 (86) 99 97.9 05/22/18 16:00 Mechanical Ventilator Mechanical Ventilator Mechanical Ventilator 05/22/18 15:26 83 05/22/18 15:13 86 19 30 05/22/18 13:09 84 17 30 05/22/18 12:00 Mechanical Ventilator Mechanical Ventilator Mechanical Ventilator 05/22/18 12:00 97.7 84 16 109/70 (83) 97 97.7 05/22/18 12:00 30 05/22/18 11:47 87 05/22/18 11:11 82 16 30 Intake and Output 05/22/18 05/23/18 19:00 07:00 Intake Total 955 ml 866.6 ml Output Total 1250 ml 250 ml Balance -295 ml 616.6 ml IV Total 55 ml 166.6 ml Tube Feeding 780 ml 650 ml Other 120 ml 50 ml Output Urine Total 800 ml Stool Total 450 ml 250 ml Laboratory Tests Test 05/23/18 05:00 White Blood Count 10.3 K/UL (4.8-10.8) Red Blood Count 4.69 M/UL (4.70-6.10) L Hemoglobin 12.7 G/DL (14.2-18.0) L Hematocrit 40.0 % (42.0-52.0) L Mean Corpuscular Volume 85 FL (80-99) Mean Corpuscular Hemoglobin 27.1 PG (27.0-31.0) Mean Corpuscular Hemoglobin Concent 31.8 G/DL (32.0-36.0) L Red Cell Distribution Width 15.1 % (11.6-14.8) H Platelet Count 270 K/UL (150-450) Mean Platelet Volume 8.4 FL (6.5-10.1) Neutrophils (%) (Auto) 66.0 % (45.0-75.0) Lymphocytes (%) (Auto) 23.8 % (20.0-45.0) Monocytes (%) (Auto) 5.1 % (1.0-10.0) Eosinophils (%) (Auto) 4.4 % (0.0-3.0) H Basophils (%) (Auto) 0.8 % (0.0-2.0) Sodium Level 133 MMOL/L (136-145) L Potassium Level 4.2 MMOL/L (3.5-5.1) Chloride Level 98 MMOL/L (98-107) Carbon Dioxide Level 22 MMOL/L (21-32) Anion Gap 13 mmol/L (5-15) Blood Urea Nitrogen 12 mg/dL (7-18) Creatinine 1.0 MG/DL (0.55-1.30) Estimat Glomerular Filtration Rate > 60 mL/min (>60) Glucose Level 132 MG/DL (74-106) H Calcium Level 10.2 MG/DL (8.5-10.1) H Phosphorus Level 2.6 MG/DL (2.5-4.9) Magnesium Level 1.8 MG/DL (1.8-2.4) Total Bilirubin 0.5 MG/DL (0.2-1.0) Aspartate Amino Transf (AST/SGOT) 22 U/L (15-37) Alanine Aminotransferase (ALT/SGPT) 44 U/L (12-78) Alkaline Phosphatase 133 U/L (46-116) H Total Protein 9.0 G/DL (6.4-8.2) H Albumin 3.6 G/DL (3.4-5.0) Globulin 5.4 g/dL Albumin/Globulin Ratio 0.7 (1.0-2.7) L Vancomycin Level Trough 13.6 ug/mL (5.0-12.0) H Height (Feet): 6 Weight (Pounds): 205 General Appearance: WD/WN, no apparent distress, alert Cardiovascular: normal rate Respiratory/Chest: normal breath sounds, no respiratory distress Abdominal Exam: normal bowel sounds, non tender, soft, other - colostomy Extremities: non-tender Boyd Emmanuel NP May 23, 2018 10:25
--- NOTE | 2018-05-23 11:03 | Pulmonolgy Critical Care Note ---
Critical Care - Asmt/Plan Problems: (1) Acute on chronic respiratory failure (2) Acute on chronic renal insufficiency (3) Severe sepsis (4) Vegetative state (5) Colostomy in place (6) Diabetes mellitus Assessment/Plan: PIcc line was removed yesterday, Midline was inserted yesterday Respiratory: monitor respiratory rate, adjust FIO2, CXR Cardiac: continue to monitor HR/BP Renal: F/U I&O Infectious Disease: check cultures Gastrointestinal: continue feedings/current rate Endocrine: monitor blood sugar, check HgA1C Hematologic: transfuse if hgb<8.5 Neurologic: PRN Ativan, PRN Morphine, keep patient comfortable Affect: PRN ativan Prophylaxis: Heparin Notes 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0 05/23/18 01:34 97.9 05/23/18 01:16 103 22 30 05/23/18 00:00 Mechanical Ventilator Mechanical Ventilator Mechanical Ventilator 05/23/18 00:00 98 05/23/18 00:00 99.0 81 17 123/66 (85) 100 99.0 05/22/18 23:30 97 16 30 05/22/18 21:23 80 17 30 05/22/18 20:00 30 05/22/18 20:00 Mechanical Ventilator Mechanical Ventilator Mechanical Ventilator 05/22/18 20:00 82 05/22/18 20:00 97.9 84 17 128/70 (89) 97 97.9 05/22/18 19:46 81 16 30 05/22/18 17:29 91 16 30 05/22/18 16:00 30 05/22/18 16:00 97.9 82 16 118/70 (86) 99 97.9 05/22/18 16:00 Mechanical Ventilator Mechanical Ventilator Mechanical Ventilator 05/22/18 15:26 83 05/22/18 15:13 86 19 30 05/22/18 13:09 84 17 30 05/22/18 12:00 Mechanical Ventilator Mechanical Ventilator Mechanical Ventilator 05/22/18 12:00 97.7 84 16 109/70 (83) 97 97.7 05/22/18 12:00 30 05/22/18 11:47 87 05/22/18 11:11 82 16 30 Status: obtunded Condition: critical HEENT: atraumatic Neck: full ROM Heart: HR/BP stable Abdomen: soft, active bowel sounds Extremities: no C/C/E, edema Micro: Microbiology Date/Time Source Procedure Growth Status 05/20/18 23:00 Blood Blood Culture - Preliminary Gram Positive Cocci Resulted 05/20/18 20:38 Blood Blood Culture - Preliminary NO GROWTH AFTER 48 HOURS Resulted Accucheck: 141 Critical Care - Subjective ROS Limited/Unobtainable: Yes Condition: critical FI02: 30 Vent Support Breath Rate: 16 Vent Support Mode: AC Vent Tidal Volume: 600 Sputum Amount: Moderate PEEP: 5.0 PIP: 35 Tube Feeding Amount: 65 I&O: Intake and Output 05/22/18 05/23/18 19:00 07:00 Intake Total 955 ml 866.6 ml Output Total 1250 ml 250 ml Balance -295 ml 616.6 ml IV Total 55 ml 166.6 ml Tube Feeding 780 ml 650 ml Other 120 ml 50 ml Output Urine Total 800 ml Stool Total 450 ml 250 ml Labs: Laboratory Tests Test 05/23/18 05:00 White Blood Count 10.3 K/UL (4.8-10.8) Red Blood Count 4.69 M/UL (4.70-6.10) L Hemoglobin 12.7 G/DL (14.2-18.0) L Hematocrit 40.0 % (42.0-52.0) L Mean Corpuscular Volume 85 FL (80-99) Mean Corpuscular Hemoglobin 27.1 PG (27.0-31.0) Mean Corpuscular Hemoglobin Concent 31.8 G/DL (32.0-36.0) L Red Cell Distribution Width 15.1 % (11.6-14.8) H Platelet Count 270 K/UL (150-450) Mean Platelet Volume 8.4 FL (6.5-10.1) Neutrophils (%) (Auto) 66.0 % (45.0-75.0) Lymphocytes (%) (Auto) 23.8 % (20.0-45.0) Monocytes (%) (Auto) 5.1 % (1.0-10.0) Eosinophils (%) (Auto) 4.4 % (0.0-3.0) H Basophils (%) (Auto) 0.8 % (0.0-2.0) Sodium Level 133 MMOL/L (136-145) L Potassium Level 4.2 MMOL/L (3.5-5.1) Chloride Level 98 MMOL/L (98-107) Carbon Dioxide Level 22 MMOL/L (21-32) Anion Gap 13 mmol/L (5-15) Blood Urea Nitrogen 12 mg/dL (7-18) Creatinine 1.0 MG/DL (0.55-1.30) Estimat Glomerular Filtration Rate > 60 mL/min (>60) Glucose Level 132 MG/DL (74-106) H Calcium Level 10.2 MG/DL (8.5-10.1) H Phosphorus Level 2.6 MG/DL (2.5-4.9) Magnesium Level 1.8 MG/DL (1.8-2.4) Total Bilirubin 0.5 MG/DL (0.2-1.0) Aspartate Amino Transf (AST/SGOT) 22 U/L (15-37) Alanine Aminotransferase (ALT/SGPT) 44 U/L (12-78) Alkaline Phosphatase 133 U/L (46-116) H Total Protein 9.0 G/DL (6.4-8.2) H Albumin 3.6 G/DL (3.4-5.0) Globulin 5.4 g/dL Albumin/Globulin Ratio 0.7 (1.0-2.7) L Vancomycin Level Trough 13.6 ug/mL (5.0-12.0) H Nico Goetz MD May 23, 2018 11:03
[2018-05-23 12:00] VITALS: BP 106/77
[2018-05-23] MEDS ORDERED: NS 275ml ONE (14:55)
[2018-05-23] MEDS ORDERED: Tubing IV Secondary IV ONE (14:55)
[2018-05-23] MEDS: Ertapenem 1 GM in NS 55 ML IVPB SCH (15:00)
--- NOTE | 2018-05-23 15:33 | Nephrology Progress Note ---
Assessment/Plan Assessment/Plan 1. DIVYA- resolved, 2. Septis- resolved on Abx 3. Chronic Resp FL- trached on vent 4. Hyponatremia - Na 133. Change GTube flushes to NS 5. SZ- Keppra Subjective Date patient seen: May 23, 2018 Time patient seen: 15:31 ROS Limited/Unobtainable: Yes Allergies: Coded Allergies: AZTREONAM (Verified Allergy, Unknown, 05/13/18) All Systems: reviewed and negative except above Subjective Patient trached on vent Objective Last 24 Hour Vital Signs Date Time Temp Pulse Resp B/P (MAP) Pulse Ox O2 Delivery O2 Flow Rate FiO2 05/23/18 13:29 88 16 30 05/23/18 12:00 30 05/23/18 12:00 Mechanical Ventilator Mechanical Ventilator Mechanical Ventilator 05/23/18 12:00 98.3 87 16 106/77 (87) 100 98.3 05/23/18 12:00 87 05/23/18 11:29 92 16 30 05/23/18 08:56 88 16 30 05/23/18 08:20 90 05/23/18 08:11 87 16 30 05/23/18 08:00 30 05/23/18 08:00 Mechanical Ventilator Mechanical Ventilator Mechanical Ventilator 05/23/18 08:00 98.5 86 16 112/62 (79) 100 98.5 05/23/18 05:05 93 16 30 05/23/18 04:00 90 05/23/18 04:00 98.4 91 16 111/61 (78) 100 98.4 05/23/18 04:00 Mechanical Ventilator Mechanical Ventilator Mechanical Ventilator 05/23/18 04:00 30 05/23/18 03:25 89 16 30 05/23/18 02:33 99.0 05/23/18 01:34 97.9 05/23/18 01:16 103 22 30 05/23/18 00:00 Mechanical Ventilator Mechanical Ventilator Mechanical Ventilator 05/23/18 00:00 98 05/23/18 00:00 99.0 81 17 123/66 (85) 100 99.0 05/22/18 23:30 97 16 30 05/22/18 21:23 80 17 30 05/22/18 20:00 30 05/22/18 20:00 Mechanical Ventilator Mechanical Ventilator Mechanical Ventilator 05/22/18 20:00 82 05/22/18 20:00 97.9 84 17 128/70 (89) 97 97.9 05/22/18 19:46 81 16 30 05/22/18 17:29 91 16 30 05/22/18 16:00 30 05/22/18 16:00 97.9 82 16 118/70 (86) 99 97.9 05/22/18 16:00 Mechanical Ventilator Mechanical Ventilator Mechanical Ventilator Intake and Output 05/22/18 05/23/18 19:00 07:00 Intake Total 955 ml 931.6 ml Output Total 1250 ml 250 ml Balance -295 ml 681.6 ml IV Total 55 ml 166.6 ml Tube Feeding 780 ml 715 ml Other 120 ml 50 ml Output Urine Total 800 ml Stool Total 450 ml 250 ml Laboratory Tests 05/23/18 05:00: White Blood Count 10.3, Red Blood Count 4.69L, Hemoglobin 12.7L, Hematocrit 40.0L, Mean Corpuscular Volume 85, Mean Corpuscular Hemoglobin 27.1, Mean Corpuscular Hemoglobin Concent 31.8L, Red Cell Distribution Width 15.1H, Platelet Count 270, Mean Platelet Volume 8.4, Neutrophils (%) (Auto) 66.0, Lymphocytes (%) (Auto) 23.8, Monocytes (%) (Auto) 5.1, Eosinophils (%) (Auto) 4.4H, Basophils (%) (Auto) 0.8, Sodium Level 133L, Potassium Level 4.2, Chloride Level 98, Carbon Dioxide Level 22, Anion Gap 13, Blood Urea Nitrogen 12 , Creatinine 1.0, Estimat Glomerular Filtration Rate > 60, Glucose Level 132H, Calcium Level 10.2H, Phosphorus Level 2.6, Magnesium Level 1.8, Total Bilirubin 0.5, Aspartate Amino Transf (AST/SGOT) 22, Alanine Aminotransferase (ALT/SGPT) 44, Alkaline Phosphatase 133H, Total Protein 9.0H, Albumin 3.6, Globulin 5.4, Albumin/Globulin Ratio 0.7L, Vancomycin Level Trough 13.6H Height (Feet): 6 Weight (Pounds): 205 General Appearance: WD/WN, no apparent distress EENT: PERRL/EOMI Neck: non-tender, normal alignment Cardiovascular: normal peripheral pulses, normal rate Respiratory/Chest: chest wall non-tender, lungs clear Abdomen: normal bowel sounds, non tender, soft Edema: no edema noted Arm (L), no edema noted Arm (R), no edema noted Leg (L), no edema noted Leg (R), no edema noted Pedal (L), no edema noted Pedal (R), no edema noted Generalized Mir Gann M.D. May 23, 2018 15:33
[2018-05-23 16:00] VITALS: BP 124/83
--- NOTE | 2018-05-23 16:47 | Infectious Diseases Prog Note ---
Assessment/Plan Assessment/Plan Sepsis, resolving- 2ry to UTI and Bacteremia- ?pyelo. Possible PNA -u/a wbc 40-60, nit neg, leuk +2; ucx >100k E. aerogenes (S cefepime, cipro/ levo; R Zosyn) -BCX 01/23 E. aerogenes, prob Amp C (S cefepime, cipro/levo; R Zosyn), P. mirabilis ESBL (S Zosyn, Ertapenem); repeta 05/16 10/25 CoNS (suspect contaminant) , 05/18 Staph f/u final results if CoNS may need TTE and IE work up. -CXR 05/17: Increased left pleural effusion, over 3 days. Overall decreased interstitial congestion. Right infrahilar atelectasis -CXR: Cardiomegaly. Mild interstitial congestion. Suspect small bilateral pleural effusions -CT abd/p: Right lower quadrant double barrel colostomy, as described. Small peristomal hernia contains bowel loops without evidence of obstruction or strangulation. Left renal staghorn calculus. Bilateral intrarenal calyceal calculi. Borderline hydronephrosis on the right without evidence of downstream obstructive lesion. May indicate mild ureteral pelvic junction obstruction. Somewhat atrophic left kidney. Inspissated contrast ball within the distal sigmoid colon. Gastrostomy in good position. Nonspecific bilateral perinephric fat stranding, could indicate pyelonephritis or could be chronic. Newberry catheter in place. Apparent bladder wall thickening, possibly an artifact of under distention but cystitis is not excludable, particularly in view of mild perivesical fat stranding. Bilateral pulmonary parenchymal atelectasis and consolidation -Blood Cx from PICC CoNS 2/2 bottles Peripheral Neg- (May be contaminant but will repeat blood Cx given new leukocytosis if positive will need ECHO. - Blood Cx 05/20/18 - GPC - Will need TTE for IE work up and the PICC removed. PICC line infection/colonization - TTE negative. Blood cultures only positive from PICC. Not positive from Peripheral - Will repeat blood cultures x 1 to confirm clearance after PICC replaced. Los suspicion for IE. Fever/Leukocytosis; increasing WBCs - Re-evaluate lines, Diarrhea? C. dif? DIVYA, improving Lactic acidosis, resolved chronic resp failure trach/vent dependant BPH GERD HTN DM2 seizure disorder colostomy s/p GT constipation VRE and MRSA colonized Plan: - Continue empiric IV Vancomycin #05/03 for PICC line infection/colonization. End date 05/29/18 - OK to transfer or D/C with abx once blood cultures negative x 48hr. -Continue Ertapenem #05/04 for Amp-C Enterobacter and ESBL P.mirabilis bacteremia ; will treat for 14 days - End date 05/30/18 -05/17 SP Zosyn #4 - f/u blood Cx 05/22/18 to document clearance - Will likely need the PICC removed -Monitor CBC/CMP, temperatures Thank you for this consultation. Will continue to follow along with you. Subjective Allergies: Coded Allergies: AZTREONAM (Verified Allergy, Unknown, 05/13/18) Subjective PICC replaced 05/22/18, Patient PEG and Trached On Vent. 30% O2 and PEEP of 5 Afebrile with no leukocytosis Objective Vital Signs Last 24 Hour Vital Signs Date Time Temp Pulse Resp B/P (MAP) Pulse Ox O2 Delivery O2 Flow Rate FiO2 05/23/18 16:00 Mechanical Ventilator Mechanical Ventilator Mechanical Ventilator 05/23/18 16:00 30 05/23/18 15:28 83 16 30 05/23/18 13:29 88 16 30 05/23/18 12:00 30 05/23/18 12:00 Mechanical Ventilator Mechanical Ventilator Mechanical Ventilator 05/23/18 12:00 98.3 87 16 106/77 (87) 100 98.3 05/23/18 12:00 87 05/23/18 11:29 92 16 30 05/23/18 08:56 88 16 30 05/23/18 08:20 90 05/23/18 08:11 87 16 30 05/23/18 08:00 30 05/23/18 08:00 Mechanical Ventilator Mechanical Ventilator Mechanical Ventilator 05/23/18 08:00 98.5 86 16 112/62 (79) 100 98.5 05/23/18 05:05 93 16 30 05/23/18 04:00 90 05/23/18 04:00 98.4 91 16 111/61 (78) 100 98.4 05/23/18 04:00 Mechanical Ventilator Mechanical Ventilator Mechanical Ventilator 05/23/18 04:00 30 05/23/18 03:25 89 16 30 05/23/18 02:33 99.0 05/23/18 01:34 97.9 05/23/18 01:16 103 22 30 05/23/18 00:00 Mechanical Ventilator Mechanical Ventilator Mechanical Ventilator 05/23/18 00:00 98 05/23/18 00:00 99.0 81 17 123/66 (85) 100 99.0 05/22/18 23:30 97 16 30 05/22/18 21:23 80 17 30 05/22/18 20:00 30 05/22/18 20:00 Mechanical Ventilator Mechanical Ventilator Mechanical Ventilator 05/22/18 20:00 82 05/22/18 20:00 97.9 84 17 128/70 (89) 97 97.9 05/22/18 19:46 81 16 30 05/22/18 17:29 91 16 30 Height (Feet): 6 Weight (Pounds): 205 Cardiovascular: normal peripheral pulses Objective GENERAL: No overt distress. Eyes closed HEENT: NCAT, DMM, No lymphadenopathy noted. Tracheostomy noted. PULM: Mild crackles B/L CARDIOVASCULAR: RRR, S1 and S2. Tachycardic. No rubs or gallops. PULMONARY: Mild diffuse expiratory rhonchi with basilar rales. ABDOMEN: Obese and nondistended. The G-tube and stoma noted. EXTREMITIES: No edema. Fair pedal pulses. Microbiology Date/Time Source Procedure Growth Status 05/20/18 23:00 Blood Blood Culture - Preliminary Gram Positive Cocci Resulted 05/20/18 20:38 Blood Blood Culture - Preliminary NO GROWTH AFTER 48 HOURS Resulted Laboratory Tests Test 05/23/18 05:00 White Blood Count 10.3 K/UL (4.8-10.8) Red Blood Count 4.69 M/UL (4.70-6.10) L Hemoglobin 12.7 G/DL (14.2-18.0) L Hematocrit 40.0 % (42.0-52.0) L Mean Corpuscular Volume 85 FL (80-99) Mean Corpuscular Hemoglobin 27.1 PG (27.0-31.0) Mean Corpuscular Hemoglobin Concent 31.8 G/DL (32.0-36.0) L Red Cell Distribution Width 15.1 % (11.6-14.8) H Platelet Count 270 K/UL (150-450) Mean Platelet Volume 8.4 FL (6.5-10.1) Neutrophils (%) (Auto) 66.0 % (45.0-75.0) Lymphocytes (%) (Auto) 23.8 % (20.0-45.0) Monocytes (%) (Auto) 5.1 % (1.0-10.0) Eosinophils (%) (Auto) 4.4 % (0.0-3.0) H Basophils (%) (Auto) 0.8 % (0.0-2.0) Sodium Level 133 MMOL/L (136-145) L Potassium Level 4.2 MMOL/L (3.5-5.1) Chloride Level 98 MMOL/L (98-107) Carbon Dioxide Level 22 MMOL/L (21-32) Anion Gap 13 mmol/L (5-15) Blood Urea Nitrogen 12 mg/dL (7-18) Creatinine 1.0 MG/DL (0.55-1.30) Estimat Glomerular Filtration Rate > 60 mL/min (>60) Glucose Level 132 MG/DL (74-106) H Calcium Level 10.2 MG/DL (8.5-10.1) H Phosphorus Level 2.6 MG/DL (2.5-4.9) Magnesium Level 1.8 MG/DL (1.8-2.4) Total Bilirubin 0.5 MG/DL (0.2-1.0) Aspartate Amino Transf (AST/SGOT) 22 U/L (15-37) Alanine Aminotransferase (ALT/SGPT) 44 U/L (12-78) Alkaline Phosphatase 133 U/L (46-116) H Total Protein 9.0 G/DL (6.4-8.2) H Albumin 3.6 G/DL (3.4-5.0) Globulin 5.4 g/dL Albumin/Globulin Ratio 0.7 (1.0-2.7) L Vancomycin Level Trough 13.6 ug/mL (5.0-12.0) H Current Medications Medications (Trade) Dose Ordered Sig/Va Route PRN Reason Start Time Stop Time Status Last Admin Dose Admin Acetaminophen (Tylenol) 650 mg Q4H PRN ORAL FEVER 05/16/18 14:00 06/13/18 09:59 05/23/18 01:34 Baclofen (Lioresal) 10 mg EVERY 8 HOURS GT 05/20/18 14:00 06/13/18 12:59 05/23/18 14:00 Chlorhexidine Gluconate (Rebecca-Hex 2%) 1 applic DAILY@2000 TOPIC 05/16/18 20:00 06/13/18 19:59 05/22/18 21:28 Dextrose (Dextrose 50%) 25 ml STAT PRN IV Hypoglycemia 05/17/18 08:45 06/14/18 08:44 Dextrose (Dextrose 50%) 50 ml STAT PRN IV Hypoglycemia 05/17/18 08:45 06/14/18 08:44 Ertapenem 1 gm/ Sodium Chloride 55 ml @ 110 mls/hr Q24H IVPB 05/17/18 15:00 05/27/18 14:59 05/23/18 15:00 Heparin Sodium (Porcine) (Heparin 5000 units/ml) 5,000 units EVERY 12 HOURS SUBQ 05/16/18 21:00 06/13/18 20:59 05/23/18 08:30 Heparin Sodium/ Sodium Chloride (Heparin 2000 units/Ns 1000ml premix) 2,000 unit ONCE PRN INJ FOR PICC PLACEMENT 05/22/18 11:00 05/24/18 10:59 Insulin Aspart (NovoLOG) Q6HR SUBQ 05/16/18 18:00 06/14/18 11:29 05/23/18 12:03 Lansoprazole (Prevacid) 30 mg DAILY GT 05/17/18 09:00 06/15/18 08:59 05/23/18 08:28 Levetiracetam (Keppra) 1,000 mg Q8HR GT 05/16/18 14:00 06/13/18 12:59 05/23/18 14:00 Lidocaine HCl (Xylocaine 1% 30ml) 30 ml ONCE PRN INJ FOR PICC PLACEMENT 05/22/18 11:00 05/24/18 10:59 Ondansetron HCl (Zofran) 4 mg Q6H PRN IVP Nausea & Vomiting 05/16/18 16:00 06/13/18 09:59 Polyethylene Glycol (Miralax) 17 gm BEDTIME GT 05/20/18 21:00 06/14/18 20:59 05/22/18 21:31 Vancomycin HCl (Vanco rx to dose) 1 ea DAILY PRN MISC PER RX PROTOCOL 05/18/18 13:15 06/17/18 13:14 Vancomycin HCl/ Dextrose 250 ml @ 166.667 mls/hr Q18H IVPB 05/23/18 06:00 05/28/18 05:59 05/23/18 06:25 Kali Richter M.D. May 23, 2018 16:47
[2018-05-23 20:07] VITALS: BP 141/73
[2018-05-23] MEDS: Miralax 17gm pkt GT SCH (20:54)
[2018-05-23] MEDS: Dyna-Hex 2% Top Sol 2oz TOPIC SCH (20:54)
[2018-05-24] VITALS: BP 142/77
[2018-05-24 04:00] VITALS: BP 122/84
[2018-05-24 04:23] LABS: EOSINOPHILS % (AUTO) 5.4 % (0.0-3.0); HEMATOCRIT 39.3 % (42.0-52.0); HEMOGLOBIN 12.6 G/DL (14.2-18.0); LYMPHOCYTES % (AUTO) 20.3 % (20.0-45.0); MEAN CORPUSCULAR VOLUME 86 FL (80-99); MONOCYTES % (AUTO) 6.4 % (1.0-10.0); NEUTROPHILS % (AUTO) 67.1 % (45.0-75.0); PLATELET COUNT 259 K/UL (150-450); RED BLOOD COUNT 4.58 M/UL (4.70-6.10); RED CELL DISTRIBUTION WIDTH 15.1 % (11.6-14.8); WHITE BLOOD COUNT 9.7 K/UL (4.8-10.8)
[2018-05-24 04:32] LABS: ALANINE AMINOTRANSFERASE 38 U/L (12-78); ALBUMIN 3.7 G/DL (3.4-5.0); ALBUMIN/GLOBULIN RATIO 0.7 (1.0-2.7); ALKALINE PHOSPHATASE 140 U/L (46-116); ANION GAP 13 mmol/L (5-15); ASPARTATE AMINO TRANSFERASE 18 U/L (15-37); BILIRUBIN,TOTAL 0.4 MG/DL (0.2-1.0); BLOOD UREA NITROGEN 12 mg/dL (7-18); CALCIUM 10.2 MG/DL (8.5-10.1); CARBON DIOXIDE 22 MMOL/L (21-32); CHLORIDE 98 MMOL/L (98-107); PHOSPHORUS 2.6 MG/DL (2.5-4.9); POTASSIUM 4.3 MMOL/L (3.5-5.1); SODIUM 133 MMOL/L (136-145)
[2018-05-24] MEDS: levETIRAcetam 500mg/5ml Liquid GT SCH ×3 (05:46→21:00)
[2018-05-24] MEDS: NovoLOG Insulin Flexpen SUBQ SCH ×3 (05:49→18:11)
[2018-05-24 08:00] VITALS: BP 105/66
--- NOTE | 2018-05-24 08:07 | Infectious Diseases Prog Note ---
Assessment/Plan Assessment/Plan Sepsis, resolving- 2ry to UTI and Bacteremia Blood cultures postive 01/23 bottles with GPC Unclear source will need to R/O Endocarditis Possible PNA initially -u/a wbc 40-60, nit neg, leuk +2; ucx >100k E. aerogenes (S cefepime, cipro/ levo; R Zosyn) -BCX 01/23 E. aerogenes, prob Amp C (S cefepime, cipro/levo; R Zosyn), P. mirabilis ESBL (S Zosyn, Ertapenem); repeta 05/16 10/25 CoNS (suspect contaminant) , 05/18 Staph f/u final results if CoNS may need TTE and IE work up. -CXR 05/17: Increased left pleural effusion, over 3 days. Overall decreased interstitial congestion. Right infrahilar atelectasis -CXR: Cardiomegaly. Mild interstitial congestion. Suspect small bilateral pleural effusions -CT abd/p: Right lower quadrant double barrel colostomy, as described. Small peristomal hernia contains bowel loops without evidence of obstruction or strangulation. Left renal staghorn calculus. Bilateral intrarenal calyceal calculi. Borderline hydronephrosis on the right without evidence of downstream obstructive lesion. May indicate mild ureteral pelvic junction obstruction. Somewhat atrophic left kidney. Inspissated contrast ball within the distal sigmoid colon. Gastrostomy in good position. Nonspecific bilateral perinephric fat stranding, could indicate pyelonephritis or could be chronic. Newberry catheter in place. Apparent bladder wall thickening, possibly an artifact of under distention but cystitis is not excludable, particularly in view of mild perivesical fat stranding. Bilateral pulmonary parenchymal atelectasis and consolidation -Blood Cx from PICC CoNS 2/2 bottles Peripheral Neg- (May be contaminant but will repeat blood Cx given new leukocytosis if positive will need ECHO. - Blood Cx 05/20/18 - GPC - Will need TTE for IE work up and the PICC removed. PICC line infection/colonization - TTE negative. Blood cultures only positive from PICC. Not positive from Peripheral - Will repeat blood cultures x 1 to confirm clearance after PICC replaced. Los suspicion for IE. - PICC replace 05/22/18 Fever/Leukocytosis; Resolved - Re-evaluate lines, Diarrhea? C. dif? DIVYA, improving Lactic acidosis, resolved chronic resp failure trach/vent dependant BPH GERD HTN DM2 seizure disorder colostomy s/p GT constipation VRE and MRSA colonized Plan: - Continue empiric IV Vancomycin #7 for bacteremia pending culture results - Must r/u Endocarditics as Blood Cx 05/22/18 with 4/4 bottles positive - Recommend Transesophageal ECHO to r/o IE -Continue Ertapenem #06/04 for Amp-C Enterobacter and ESBL P.mirabilis bacteremia ; will treat for 14 days - End date 05/30/18 -05/17 SP Zosyn #4 - Monitor CBC/CMP, temperatures Thank you for this consultation. Will continue to follow along with you. Subjective Allergies: Coded Allergies: AZTREONAM (Verified Allergy, Unknown, 05/13/18) Subjective No acute events On Vent. 30% O2 and PEEP of 5 Afebrile with no leukocytosis Objective Vital Signs Last 24 Hour Vital Signs Date Time Temp Pulse Resp B/P (MAP) Pulse Ox O2 Delivery O2 Flow Rate FiO2 05/24/18 07:49 89 16 30 05/24/18 05:30 87 16 30 05/24/18 04:00 98.7 91 20 122/84 (97) 100 98.7 05/24/18 04:00 Mechanical Ventilator Mechanical Ventilator Mechanical Ventilator 05/24/18 04:00 30 05/24/18 03:38 91 05/24/18 03:30 89 17 30 05/24/18 01:20 91 18 30 05/24/18 00:00 Mechanical Ventilator Mechanical Ventilator Mechanical Ventilator 05/24/18 00:00 30 05/24/18 00:00 98.5 89 16 142/77 (98) 100 98.5 05/23/18 23:35 91 05/23/18 23:30 90 17 30 05/23/18 21:30 82 16 30 05/23/18 20:07 98.3 86 16 141/73 (95) 98 98.3 05/23/18 20:00 Mechanical Ventilator Mechanical Ventilator Mechanical Ventilator 05/23/18 20:00 30 05/23/18 19:30 86 18 30 05/23/18 19:06 87 05/23/18 16:52 84 17 30 05/23/18 16:00 98.4 82 17 124/83 (97) 100 98.4 05/23/18 16:00 Mechanical Ventilator Mechanical Ventilator Mechanical Ventilator 05/23/18 16:00 80 05/23/18 16:00 30 05/23/18 15:28 83 16 30 05/23/18 13:29 88 16 30 05/23/18 12:00 30 05/23/18 12:00 Mechanical Ventilator Mechanical Ventilator Mechanical Ventilator 05/23/18 12:00 98.3 87 16 106/77 (87) 100 98.3 05/23/18 12:00 87 05/23/18 11:29 92 16 30 05/23/18 08:56 88 16 30 05/23/18 08:20 90 05/23/18 08:11 87 16 30 Height (Feet): 6 Weight (Pounds): 203 Objective GENERAL: No overt distress. Opens eyes and get agitated to voice and exam. On vent HEENT: NCAT, DMM, Tracheostomy noted. PULM: Mild crackles B/L CARDIOVASCULAR: RRR, S1 and S2. Tachycardic. No rubs or gallops. PULMONARY: Mild diffuse expiratory rhonchi with basilar rales. ABDOMEN: Obese and nondistended. +BS, The G-tube and stoma noted. EXTREMITIES: No edema. Fair pedal pulses. Microbiology Date/Time Source Procedure Growth Status 05/22/18 21:20 Blood Blood Culture - Preliminary NO GROWTH AFTER 24 HOURS Resulted 05/22/18 21:10 Blood Blood Culture - Preliminary NO GROWTH AFTER 24 HOURS Resulted Laboratory Tests Test 05/24/18 04:00 White Blood Count 9.7 K/UL (4.8-10.8) Red Blood Count 4.58 M/UL (4.70-6.10) L Hemoglobin 12.6 G/DL (14.2-18.0) L Hematocrit 39.3 % (42.0-52.0) L Mean Corpuscular Volume 86 FL (80-99) Mean Corpuscular Hemoglobin 27.6 PG (27.0-31.0) Mean Corpuscular Hemoglobin Concent 32.1 G/DL (32.0-36.0) Red Cell Distribution Width 15.1 % (11.6-14.8) H Platelet Count 259 K/UL (150-450) Mean Platelet Volume 8.7 FL (6.5-10.1) Neutrophils (%) (Auto) 67.1 % (45.0-75.0) Lymphocytes (%) (Auto) 20.3 % (20.0-45.0) Monocytes (%) (Auto) 6.4 % (1.0-10.0) Eosinophils (%) (Auto) 5.4 % (0.0-3.0) H Basophils (%) (Auto) 1.0 % (0.0-2.0) Sodium Level 133 MMOL/L (136-145) L Potassium Level 4.3 MMOL/L (3.5-5.1) Chloride Level 98 MMOL/L (98-107) Carbon Dioxide Level 22 MMOL/L (21-32) Anion Gap 13 mmol/L (5-15) Blood Urea Nitrogen 12 mg/dL (7-18) Creatinine 1.0 MG/DL (0.55-1.30) Estimat Glomerular Filtration Rate > 60 mL/min (>60) Glucose Level 137 MG/DL (74-106) H Calcium Level 10.2 MG/DL (8.5-10.1) H Phosphorus Level 2.6 MG/DL (2.5-4.9) Magnesium Level 1.9 MG/DL (1.8-2.4) Total Bilirubin 0.4 MG/DL (0.2-1.0) Aspartate Amino Transf (AST/SGOT) 18 U/L (15-37) Alanine Aminotransferase (ALT/SGPT) 38 U/L (12-78) Alkaline Phosphatase 140 U/L (46-116) H Total Protein 9.1 G/DL (6.4-8.2) H Albumin 3.7 G/DL (3.4-5.0) Globulin 5.4 g/dL Albumin/Globulin Ratio 0.7 (1.0-2.7) L Current Medications Medications (Trade) Dose Ordered Sig/Va Route PRN Reason Start Time Stop Time Status Last Admin Dose Admin Acetaminophen (Tylenol) 650 mg Q4H PRN ORAL FEVER 05/16/18 14:00 06/13/18 09:59 05/23/18 01:34 Baclofen (Lioresal) 10 mg EVERY 8 HOURS GT 05/20/18 14:00 06/13/18 12:59 05/24/18 05:45 Chlorhexidine Gluconate (Rebecca-Hex 2%) 1 applic DAILY@1999 TOPIC 05/16/18 20:00 06/13/18 19:59 05/23/18 20:54 Dextrose (Dextrose 50%) 25 ml STAT PRN IV Hypoglycemia 05/17/18 08:45 06/14/18 08:44 Dextrose (Dextrose 50%) 50 ml STAT PRN IV Hypoglycemia 05/17/18 08:45 06/14/18 08:44 Ertapenem 1 gm/ Sodium Chloride 55 ml @ 110 mls/hr Q24H IVPB 05/17/18 15:00 05/27/18 14:59 05/23/18 15:00 Heparin Sodium (Porcine) (Heparin 5000 units/ml) 5,000 units EVERY 12 HOURS SUBQ 05/16/18 21:00 06/13/18 20:59 05/23/18 20:56 Heparin Sodium/ Sodium Chloride (Heparin 2000 units/Ns 1000ml premix) 2,000 unit ONCE PRN INJ FOR PICC PLACEMENT 05/22/18 11:00 05/24/18 10:59 Insulin Aspart (NovoLOG) Q6HR SUBQ 05/16/18 18:00 06/14/18 11:29 05/24/18 05:49 Lansoprazole (Prevacid) 30 mg DAILY GT 05/17/18 09:00 06/15/18 08:59 05/23/18 08:28 Levetiracetam (Keppra) 1,000 mg Q8HR GT 05/16/18 14:00 06/13/18 12:59 05/24/18 05:46 Lidocaine HCl (Xylocaine 1% 30ml) 30 ml ONCE PRN INJ FOR PICC PLACEMENT 05/22/18 11:00 05/24/18 10:59 Ondansetron HCl (Zofran) 4 mg Q6H PRN IVP Nausea & Vomiting 05/16/18 16:00 06/13/18 09:59 Polyethylene Glycol (Miralax) 17 gm BEDTIME GT 05/20/18 21:00 06/14/18 20:59 05/23/18 20:54 Vancomycin HCl (Vanco rx to dose) 1 ea DAILY PRN MISC PER RX PROTOCOL 05/18/18 13:15 06/17/18 13:14 Vancomycin HCl/ Dextrose 250 ml @ 166.667 mls/hr Q18H IVPB 05/23/18 06:00 8/7/18 05:59 05/23/18 23:23 Kali Richter M.D. May 24, 2018 08:07
--- NOTE | 2018-05-24 08:50 | General Progress Note ---
Assessment/Plan Status: unchanged Assessment/Plan # Anemia of chronic disease. No hemolysis, peripheral smear reviewed, ferritin is elevated. --> Continue to closely monitor for improvement. --> Anemia w/u has been reviewed. Will trend cbc daily. --> Hgb goal >7 --> 05/24: Hgb 12.6 # Leukocytosis - Sepsis with elevated temperature of 103 degrees Fahrenheit. --> Lactic acid pending, was elevated upon admission. --> Pt on antibiotics, has received a dose of Zosyn and currently is on vancomycin q.12 h. --> Currently afebrile. --> Appreciate Infectious Disease consult. # Acute kidney injury. --> Currently on IV fluids, IV bolus given to see if the patient responds along with IV pressor as needed. --> Closely monitor with Nephrology team. # Septic shock, use antibiotic per ID services. --> potential pna, bacteremia # Respiratory failure, status post tracheostomy, on mechanical ventilation per Dr. Goetz. # Hypercalcemia. Monitor PTH and calcium level The time the note was entered does not necessarily correspond to the time the patient was seen. Subjective Date patient seen: May 24, 2018 ROS Limited/Unobtainable: Yes Hematologic/Lymphatic: Reports: anemia Allergies: Coded Allergies: AZTREONAM (Verified Allergy, Unknown, 05/13/18) All Systems: reviewed and negative except above Subjective Pt remains obtunded, on trach/vent. No acute events. H/H stable. Objective Last 24 Hour Vital Signs Date Time Temp Pulse Resp B/P (MAP) Pulse Ox O2 Delivery O2 Flow Rate FiO2 05/24/18 07:49 89 16 30 05/24/18 05:30 87 16 30 05/24/18 04:00 98.7 91 20 122/84 (97) 100 98.7 05/24/18 04:00 Mechanical Ventilator Mechanical Ventilator Mechanical Ventilator 05/24/18 04:00 30 05/24/18 03:38 91 05/24/18 03:30 89 17 30 05/24/18 01:20 91 18 30 05/24/18 00:00 Mechanical Ventilator Mechanical Ventilator Mechanical Ventilator 05/24/18 00:00 30 05/24/18 00:00 98.5 89 16 142/77 (98) 100 98.5 05/23/18 23:35 91 05/23/18 23:30 90 17 30 05/23/18 21:30 82 16 30 05/23/18 20:07 98.3 86 16 141/73 (95) 98 98.3 05/23/18 20:00 Mechanical Ventilator Mechanical Ventilator Mechanical Ventilator 05/23/18 20:00 30 05/23/18 19:30 86 18 30 05/23/18 19:06 87 05/23/18 16:52 84 17 30 05/23/18 16:00 98.4 82 17 124/83 (97) 100 98.4 05/23/18 16:00 Mechanical Ventilator Mechanical Ventilator Mechanical Ventilator 05/23/18 16:00 80 05/23/18 16:00 30 05/23/18 15:28 83 16 30 05/23/18 13:29 88 16 30 05/23/18 12:00 30 05/23/18 12:00 Mechanical Ventilator Mechanical Ventilator Mechanical Ventilator 05/23/18 12:00 98.3 87 16 106/77 (87) 100 98.3 05/23/18 12:00 87 05/23/18 11:29 92 16 30 05/23/18 08:56 88 16 30 Intake and Output 05/23/18 05/24/18 19:00 07:00 Intake Total 920 ml 1270.0 ml Output Total 680 ml 925 ml Balance 240 ml 345.0 ml Free Water 90 ml IV Total 110 ml 250.0 ml Tube Feeding 780 ml 780 ml Other 30 ml 150 ml Output Urine Total 380 ml 575 ml Stool Total 300 ml 350 ml Laboratory Tests 05/24/18 04:00: White Blood Count 9.7, Red Blood Count 4.58L, Hemoglobin 12.6L, Hematocrit 39.3L , Mean Corpuscular Volume 86, Mean Corpuscular Hemoglobin 27.6, Mean Corpuscular Hemoglobin Concent 32.1, Red Cell Distribution Width 15.1H, Platelet Count 259, Mean Platelet Volume 8.7, Neutrophils (%) (Auto) 67.1, Lymphocytes (%) (Auto) 20.3, Monocytes (%) (Auto) 6.4, Eosinophils (%) (Auto) 5.4H, Basophils (%) (Auto) 1.0, Sodium Level 133L, Potassium Level 4.3, Chloride Level 98, Carbon Dioxide Level 22, Anion Gap 13, Blood Urea Nitrogen 12 , Creatinine 1.0, Estimat Glomerular Filtration Rate > 60, Glucose Level 137H, Calcium Level 10.2H, Phosphorus Level 2.6, Magnesium Level 1.9, Total Bilirubin 0.4, Aspartate Amino Transf (AST/SGOT) 18, Alanine Aminotransferase (ALT/SGPT) 38, Alkaline Phosphatase 140H, Total Protein 9.1H, Albumin 3.7, Globulin 5.4, Albumin/Globulin Ratio 0.7L Height (Feet): 6 Weight (Pounds): 203 General Appearance: no apparent distress EENT: PERRL/EOMI Neck: normal alignment Cardiovascular: normal peripheral pulses Respiratory/Chest: no respiratory distress Abdomen: soft Jimmy Fleming MD May 24, 2018 08:50
[2018-05-24] MEDS ORDERED: NS Irrig 1000ml ONE (09:45)
[2018-05-24] MEDS ORDERED: NS 275ml ONE (09:45)
[2018-05-24] MEDS: Heparin 5000 units/ml inj SUBQ SCH ×2 (09:56→21:03)
--- NOTE | 2018-05-24 10:05 | Nephrology Progress Note ---
Assessment/Plan Assessment/Plan 1. DIVYA- resolved, 2. Sepsis- on Abx 3. Chronic Resp FL- trached on vent. - Per PULM mgmt 4. Hyponatremia - Na stable 133. Changed GTube flushes to NS 5. SZ- Keppra - monitor as serum sodium 133-135 Subjective Date patient seen: May 24, 2018 Time patient seen: 10:03 ROS Limited/Unobtainable: Yes Allergies: Coded Allergies: AZTREONAM (Verified Allergy, Unknown, 05/13/18) Subjective Patient trached on vent. In no overt distress Objective Last 24 Hour Vital Signs Date Time Temp Pulse Resp B/P (MAP) Pulse Ox O2 Delivery O2 Flow Rate FiO2 05/24/18 09:03 87 17 30 05/24/18 07:49 89 16 30 05/24/18 05:30 87 16 30 05/24/18 04:00 98.7 91 20 122/84 (97) 100 98.7 05/24/18 04:00 Mechanical Ventilator Mechanical Ventilator Mechanical Ventilator 05/24/18 04:00 30 05/24/18 03:38 91 05/24/18 03:30 89 17 30 05/24/18 01:20 91 18 30 05/24/18 00:00 Mechanical Ventilator Mechanical Ventilator Mechanical Ventilator 05/24/18 00:00 30 05/24/18 00:00 98.5 89 16 142/77 (98) 100 98.5 05/23/18 23:35 91 05/23/18 23:30 90 17 30 05/23/18 21:30 82 16 30 05/23/18 20:07 98.3 86 16 141/73 (95) 98 98.3 05/23/18 20:00 Mechanical Ventilator Mechanical Ventilator Mechanical Ventilator 05/23/18 20:00 30 05/23/18 19:30 86 18 30 05/23/18 19:06 87 05/23/18 16:52 84 17 30 05/23/18 16:00 98.4 82 17 124/83 (97) 100 98.4 05/23/18 16:00 Mechanical Ventilator Mechanical Ventilator Mechanical Ventilator 05/23/18 16:00 80 05/23/18 16:00 30 05/23/18 15:28 83 16 30 05/23/18 13:29 88 16 30 05/23/18 12:00 30 05/23/18 12:00 Mechanical Ventilator Mechanical Ventilator Mechanical Ventilator 05/23/18 12:00 98.3 87 16 106/77 (87) 100 98.3 05/23/18 12:00 87 05/23/18 11:29 92 16 30 Intake and Output 05/23/18 05/24/18 19:00 07:00 Intake Total 920 ml 1270.0 ml Output Total 680 ml 925 ml Balance 240 ml 345.0 ml Free Water 90 ml IV Total 110 ml 250.0 ml Tube Feeding 780 ml 780 ml Other 30 ml 150 ml Output Urine Total 380 ml 575 ml Stool Total 300 ml 350 ml Laboratory Tests 05/24/18 04:00: White Blood Count 9.7, Red Blood Count 4.58L, Hemoglobin 12.6L, Hematocrit 39.3L , Mean Corpuscular Volume 86, Mean Corpuscular Hemoglobin 27.6, Mean Corpuscular Hemoglobin Concent 32.1, Red Cell Distribution Width 15.1H, Platelet Count 259, Mean Platelet Volume 8.7, Neutrophils (%) (Auto) 67.1, Lymphocytes (%) (Auto) 20.3, Monocytes (%) (Auto) 6.4, Eosinophils (%) (Auto) 5.4H, Basophils (%) (Auto) 1.0, Sodium Level 133L, Potassium Level 4.3, Chloride Level 98, Carbon Dioxide Level 22, Anion Gap 13, Blood Urea Nitrogen 12 , Creatinine 1.0, Estimat Glomerular Filtration Rate > 60, Glucose Level 137H, Calcium Level 10.2H, Phosphorus Level 2.6, Magnesium Level 1.9, Total Bilirubin 0.4, Aspartate Amino Transf (AST/SGOT) 18, Alanine Aminotransferase (ALT/SGPT) 38, Alkaline Phosphatase 140H, Total Protein 9.1H, Albumin 3.7, Globulin 5.4, Albumin/Globulin Ratio 0.7L Height (Feet): 6 Weight (Pounds): 203 General Appearance: WD/WN, no apparent distress EENT: PERRL/EOMI Neck: non-tender, normal alignment, supple Cardiovascular: normal rate, regular rhythm Respiratory/Chest: chest wall non-tender, normal breath sounds Abdomen: non tender, soft Edema: no edema noted Arm (L), no edema noted Arm (R), no edema noted Leg (L), no edema noted Leg (R), no edema noted Pedal (L), no edema noted Pedal (R), no edema noted Generalized Mir Gann M.D. May 24, 2018 10:05
--- NOTE | 2018-05-24 10:45 | Pulmonolgy Critical Care Note ---
Critical Care - Asmt/Plan Problems: (1) Acute on chronic respiratory failure (2) Acute on chronic renal insufficiency (3) Severe sepsis (4) Vegetative state (5) Colostomy in place (6) Diabetes mellitus Assessment/Plan: PIcc line was removed yesterday, Midline was inserted. BC continue to be positive on abx Respiratory: monitor respiratory rate, adjust FIO2 Cardiac: continue to monitor HR/BP Critical Care - Objective Last 24 Hour Vital Signs Date Time Temp Pulse Resp B/P (MAP) Pulse Ox O2 Delivery O2 Flow Rate FiO2 05/24/18 09:03 87 17 30 05/24/18 08:00 97.7 103 20 105/66 (79) 100 97.7 05/24/18 08:00 30 05/24/18 07:49 89 16 30 05/24/18 05:30 87 16 30 05/24/18 04:00 98.7 91 20 122/84 (97) 100 98.7 05/24/18 04:00 Mechanical Ventilator Mechanical Ventilator Mechanical Ventilator 05/24/18 04:00 30 05/24/18 03:38 91 05/24/18 03:30 89 17 30 05/24/18 01:20 91 18 30 05/24/18 00:00 Mechanical Ventilator Mechanical Ventilator Mechanical Ventilator 05/24/18 00:00 30 05/24/18 00:00 98.5 89 16 142/77 (98) 100 98.5 05/23/18 23:35 91 05/23/18 23:30 90 17 30 05/23/18 21:30 82 16 30 05/23/18 20:07 98.3 86 16 141/73 (95) 98 98.3 05/23/18 20:00 Mechanical Ventilator Mechanical Ventilator Mechanical Ventilator 05/23/18 20:00 30 05/23/18 19:30 86 18 30 05/23/18 19:06 87 05/23/18 16:52 84 17 30 05/23/18 16:00 98.4 82 17 124/83 (97) 100 98.4 05/23/18 16:00 Mechanical Ventilator Mechanical Ventilator Mechanical Ventilator 05/23/18 16:00 80 05/23/18 16:00 30 05/23/18 15:28 83 16 30 05/23/18 13:29 88 16 30 05/23/18 12:00 30 05/23/18 12:00 Mechanical Ventilator Mechanical Ventilator Mechanical Ventilator 05/23/18 12:00 98.3 87 16 106/77 (87) 100 98.3 05/23/18 12:00 87 05/23/18 11:29 92 16 30 Status: awake Condition: critical Lungs: chest wall tender Heart: HR/BP unstable Abdomen: soft, non-tender, active bowel sounds, feeding tube Decubiti: location, stage Micro: Microbiology Date/Time Source Procedure Growth Status 05/22/18 21:20 Blood Blood Culture - Preliminary Resulted 05/22/18 21:10 Blood Blood Culture - Preliminary Resulted Accucheck: 153 Critical Care - Subjective ROS Limited/Unobtainable: No Condition: critical EKG Rhythm: Sinus Rhythm FI02: 30 Vent Support Breath Rate: 16 Vent Support Mode: AC Vent Tidal Volume: 600 Sputum Amount: Small PEEP: 5.0 PIP: 33 Tube Feeding Amount: 65 I&O: Intake and Output 05/23/18 05/24/18 19:00 07:00 Intake Total 920 ml 1270.0 ml Output Total 680 ml 925 ml Balance 240 ml 345.0 ml Free Water 90 ml IV Total 110 ml 250.0 ml Tube Feeding 780 ml 780 ml Other 30 ml 150 ml Output Urine Total 380 ml 575 ml Stool Total 300 ml 350 ml Labs: Laboratory Tests Test 05/24/18 04:00 White Blood Count 9.7 K/UL (4.8-10.8) Red Blood Count 4.58 M/UL (4.70-6.10) L Hemoglobin 12.6 G/DL (14.2-18.0) L Hematocrit 39.3 % (42.0-52.0) L Mean Corpuscular Volume 86 FL (80-99) Mean Corpuscular Hemoglobin 27.6 PG (27.0-31.0) Mean Corpuscular Hemoglobin Concent 32.1 G/DL (32.0-36.0) Red Cell Distribution Width 15.1 % (11.6-14.8) H Platelet Count 259 K/UL (150-450) Mean Platelet Volume 8.7 FL (6.5-10.1) Neutrophils (%) (Auto) 67.1 % (45.0-75.0) Lymphocytes (%) (Auto) 20.3 % (20.0-45.0) Monocytes (%) (Auto) 6.4 % (1.0-10.0) Eosinophils (%) (Auto) 5.4 % (0.0-3.0) H Basophils (%) (Auto) 1.0 % (0.0-2.0) Sodium Level 133 MMOL/L (136-145) L Potassium Level 4.3 MMOL/L (3.5-5.1) Chloride Level 98 MMOL/L (98-107) Carbon Dioxide Level 22 MMOL/L (21-32) Anion Gap 13 mmol/L (5-15) Blood Urea Nitrogen 12 mg/dL (7-18) Creatinine 1.0 MG/DL (0.55-1.30) Estimat Glomerular Filtration Rate > 60 mL/min (>60) Glucose Level 137 MG/DL (74-106) H Calcium Level 10.2 MG/DL (8.5-10.1) H Phosphorus Level 2.6 MG/DL (2.5-4.9) Magnesium Level 1.9 MG/DL (1.8-2.4) Total Bilirubin 0.4 MG/DL (0.2-1.0) Aspartate Amino Transf (AST/SGOT) 18 U/L (15-37) Alanine Aminotransferase (ALT/SGPT) 38 U/L (12-78) Alkaline Phosphatase 140 U/L (46-116) H Total Protein 9.1 G/DL (6.4-8.2) H Albumin 3.7 G/DL (3.4-5.0) Globulin 5.4 g/dL Albumin/Globulin Ratio 0.7 (1.0-2.7) L Nico Goetz MD May 24, 2018 10:45
--- NOTE | 2018-05-24 11:16 | GI Progress Note ---
Assessment/Plan Problems: (1) Parastomal hernia ICD Codes: K43.5 - Parastomal hernia without obstruction or gangrene SNOMED: 396132193 Qualifiers: Qualified Codes: K43.5 - Parastomal hernia without obstruction or gangrene (2) Stoma malfunction SNOMED: 955389420 (3) Colostomy in place ICD Codes: Z93.3 - Colostomy status SNOMED: 554739398, 293506859 (4) Vegetative state ICD Codes: R40.3 - Persistent vegetative state SNOMED: 35284302 (5) Diabetes mellitus ICD Codes: E11.9 - Type 2 diabetes mellitus without complications SNOMED: 35942159 (6) Acute on chronic respiratory failure ICD Codes: J96.20 - Acute and chronic respiratory failure, unspecified whether with hypoxia or hypercapnia SNOMED: 87694512 (7) Severe sepsis ICD Codes: A41.9 - Sepsis, unspecified organism; R65.20 - Severe sepsis without septic shock SNOMED: 85872355 Status: stable Status Narrative Discussed with Dr. Prater. Assessment/Plan prolapse stoma assessed >> no s/sx of infection. no obstruction. anemia work up reviewed >> iron deficiency G tube dependent hepatitis panel negative OB negative supportive care monitor H&H, prn transfusions venofer ppi GTFs per RD, adv to goal GT site care daily/prn abx bowel regime fu labs The patient was seen and examined at bedside and all new and available data was reviewed in the patients chart. I agree with the above findings, impression and plan. (Patient seen earlier today. Signature stamp does not reflect patient encounter time.). - Dae Prater MD Subjective Subjective limited Objective Last 24 Hour Vital Signs Date Time Temp Pulse Resp B/P (MAP) Pulse Ox O2 Delivery O2 Flow Rate FiO2 05/24/18 11:02 98 16 30 05/24/18 09:03 87 17 30 05/24/18 08:00 97.7 103 20 105/66 (79) 100 97.7 05/24/18 08:00 89 05/24/18 08:00 30 05/24/18 07:49 89 16 30 05/24/18 05:30 87 16 30 05/24/18 04:00 98.7 91 20 122/84 (97) 100 98.7 05/24/18 04:00 Mechanical Ventilator Mechanical Ventilator Mechanical Ventilator 05/24/18 04:00 30 05/24/18 03:38 91 05/24/18 03:30 89 17 30 05/24/18 01:20 91 18 30 05/24/18 00:00 Mechanical Ventilator Mechanical Ventilator Mechanical Ventilator 05/24/18 00:00 30 05/24/18 00:00 98.5 89 16 142/77 (98) 100 98.5 05/23/18 23:35 91 05/23/18 23:30 90 17 30 05/23/18 21:30 82 16 30 05/23/18 20:07 98.3 86 16 141/73 (95) 98 98.3 05/23/18 20:00 Mechanical Ventilator Mechanical Ventilator Mechanical Ventilator 05/23/18 20:00 30 05/23/18 19:30 86 18 30 05/23/18 19:06 87 05/23/18 16:52 84 17 30 05/23/18 16:00 98.4 82 17 124/83 (97) 100 98.4 05/23/18 16:00 Mechanical Ventilator Mechanical Ventilator Mechanical Ventilator 05/23/18 16:00 80 05/23/18 16:00 30 05/23/18 15:28 83 16 30 05/23/18 13:29 88 16 30 05/23/18 12:00 30 05/23/18 12:00 Mechanical Ventilator Mechanical Ventilator Mechanical Ventilator 05/23/18 12:00 98.3 87 16 106/77 (87) 100 98.3 05/23/18 12:00 87 05/23/18 11:29 92 16 30 Intake and Output 05/23/18 05/24/18 19:00 07:00 Intake Total 920 ml 1270.0 ml Output Total 680 ml 925 ml Balance 240 ml 345.0 ml Free Water 90 ml IV Total 110 ml 250.0 ml Tube Feeding 780 ml 780 ml Other 30 ml 150 ml Output Urine Total 380 ml 575 ml Stool Total 300 ml 350 ml Laboratory Tests Test 05/24/18 04:00 White Blood Count 9.7 K/UL (4.8-10.8) Red Blood Count 4.58 M/UL (4.70-6.10) L Hemoglobin 12.6 G/DL (14.2-18.0) L Hematocrit 39.3 % (42.0-52.0) L Mean Corpuscular Volume 86 FL (80-99) Mean Corpuscular Hemoglobin 27.6 PG (27.0-31.0) Mean Corpuscular Hemoglobin Concent 32.1 G/DL (32.0-36.0) Red Cell Distribution Width 15.1 % (11.6-14.8) H Platelet Count 259 K/UL (150-450) Mean Platelet Volume 8.7 FL (6.5-10.1) Neutrophils (%) (Auto) 67.1 % (45.0-75.0) Lymphocytes (%) (Auto) 20.3 % (20.0-45.0) Monocytes (%) (Auto) 6.4 % (1.0-10.0) Eosinophils (%) (Auto) 5.4 % (0.0-3.0) H Basophils (%) (Auto) 1.0 % (0.0-2.0) Sodium Level 133 MMOL/L (136-145) L Potassium Level 4.3 MMOL/L (3.5-5.1) Chloride Level 98 MMOL/L (98-107) Carbon Dioxide Level 22 MMOL/L (21-32) Anion Gap 13 mmol/L (5-15) Blood Urea Nitrogen 12 mg/dL (7-18) Creatinine 1.0 MG/DL (0.55-1.30) Estimat Glomerular Filtration Rate > 60 mL/min (>60) Glucose Level 137 MG/DL (74-106) H Calcium Level 10.2 MG/DL (8.5-10.1) H Phosphorus Level 2.6 MG/DL (2.5-4.9) Magnesium Level 1.9 MG/DL (1.8-2.4) Total Bilirubin 0.4 MG/DL (0.2-1.0) Aspartate Amino Transf (AST/SGOT) 18 U/L (15-37) Alanine Aminotransferase (ALT/SGPT) 38 U/L (12-78) Alkaline Phosphatase 140 U/L (46-116) H Total Protein 9.1 G/DL (6.4-8.2) H Albumin 3.7 G/DL (3.4-5.0) Globulin 5.4 g/dL Albumin/Globulin Ratio 0.7 (1.0-2.7) L Height (Feet): 6 Weight (Pounds): 203 General Appearance: alert Cardiovascular: normal rate Respiratory/Chest: normal breath sounds, no respiratory distress Abdominal Exam: other - prolapse stoma, colostomy Boyd Emmanuel NP May 24, 2018 11:16
[2018-05-24 12:10] VITALS: BP 150/62
[2018-05-24] MEDS: Ertapenem 1 GM in NS 55 ML IVPB SCH (14:28)
[2018-05-24 16:00] VITALS: BP 123/86
[2018-05-24] MEDS: Vancomycin 1250mg/D5W 250ml IVPB SCH (18:07)
[2018-05-24 20:39] VITALS: BP 121/73
[2018-05-24] MEDS: Miralax 17gm pkt GT SCH (21:00)
[2018-05-24] MEDS: Dyna-Hex 2% Top Sol 2oz TOPIC SCH (21:00)
[2018-05-25] VITALS: BP 130/73
[2018-05-25] MEDS: NovoLOG Insulin Flexpen SUBQ SCH ×5 (00:54→23:24)
[2018-05-25 04:00] VITALS: BP 133/81
[2018-05-25 05:14] LABS: BASOPHILS % (AUTO) 0.7 % (0.0-2.0); EOSINOPHILS % (AUTO) 4.1 % (0.0-3.0); HEMATOCRIT 35.8 % (42.0-52.0); HEMOGLOBIN 11.9 G/DL (14.2-18.0); LYMPHOCYTES % (AUTO) 17.9 % (20.0-45.0); MEAN CORPUSCULAR VOLUME 85 FL (80-99); MONOCYTES % (AUTO) 5.3 % (1.0-10.0); NEUTROPHILS % (AUTO) 72.1 % (45.0-75.0); PLATELET COUNT 253 K/UL (150-450); RED CELL DISTRIBUTION WIDTH 14.8 % (11.6-14.8); WHITE BLOOD COUNT 10.7 K/UL (4.8-10.8)
[2018-05-25 05:21] LABS: ALANINE AMINOTRANSFERASE 31 U/L (12-78); ALBUMIN 3.6 G/DL (3.4-5.0); ALBUMIN/GLOBULIN RATIO 0.7 (1.0-2.7); ALKALINE PHOSPHATASE 124 U/L (46-116); ANION GAP 13 mmol/L (5-15); ASPARTATE AMINO TRANSFERASE 17 U/L (15-37); BILIRUBIN,TOTAL 0.5 MG/DL (0.2-1.0); BLOOD UREA NITROGEN 13 mg/dL (7-18); CALCIUM 10.1 MG/DL (8.5-10.1); CARBON DIOXIDE 21 MMOL/L (21-32); CHLORIDE 99 MMOL/L (98-107); POTASSIUM 4.1 MMOL/L (3.5-5.1); SODIUM 133 MMOL/L (136-145)
[2018-05-25 05:22] LABS: PHOSPHORUS 2.4 MG/DL (2.5-4.9)
[2018-05-25] MEDS: levETIRAcetam 500mg/5ml Liquid GT SCH ×3 (06:39→22:04)
[2018-05-25 08:00] VITALS: BP 120/79
--- NOTE | 2018-05-25 08:22 | Pulmonolgy Critical Care Note ---
Critical Care - Asmt/Plan Problems: (1) Acute on chronic respiratory failure (2) Acute on chronic renal insufficiency (3) Severe sepsis (4) Vegetative state (5) Colostomy in place (6) Diabetes mellitus Respiratory: monitor respiratory rate Cardiac: continue pressors Renal: F/U I&O Infectious Disease: check cultures Gastrointestinal: continue feedings/current rate Endocrine: monitor blood sugar Hematologic: monitor H/H Neurologic: PRN Ativan Affect: PRN ativan Prophylaxis: Protonix, Heparin Notes Reviewed: strap setter, cardio, renal Discussed with: nurses Critical Care - Objective Last 24 Hour Vital Signs Date Time Temp Pulse Resp B/P (MAP) Pulse Ox O2 Delivery O2 Flow Rate FiO2 05/25/18 08:00 98.2 83 16 120/79 (93) 100 98.2 05/25/18 06:40 78 17 30 05/25/18 05:09 74 16 30 05/25/18 04:00 98.5 81 21 133/81 (98) 100 98.5 05/25/18 04:00 30 05/25/18 04:00 81 05/25/18 04:00 Mechanical Ventilator 05/25/18 03:25 76 16 30 05/25/18 01:31 71 16 30 05/25/18 00:00 98.6 78 20 130/73 (92) 100 98.6 05/25/18 00:00 30 05/25/18 00:00 Mechanical Ventilator Mechanical Ventilator Mechanical Ventilator 05/25/18 00:00 77 05/24/18 23:36 96 19 30 05/24/18 22:00 99.9 05/24/18 21:01 100.8 05/24/18 20:55 83 16 30 05/24/18 20:39 100.8 81 21 121/73 (89) 98 100.8 05/24/18 20:00 30 05/24/18 20:00 Mechanical Ventilator Mechanical Ventilator Mechanical Ventilator 05/24/18 19:47 79 16 30 05/24/18 19:44 83 05/24/18 17:43 85 16 30 05/24/18 16:00 98.4 90 20 123/86 (98) 100 98.4 05/24/18 16:00 30 05/24/18 16:00 Mechanical Ventilator Mechanical Ventilator Mechanical Ventilator 05/24/18 16:00 89 05/24/18 15:40 91 16 30 8/3/18 14:06 95 05/24/18 13:44 91 16 30 05/24/18 12:12 30 05/24/18 12:10 97.3 94 20 150/62 (91) 97 97.3 05/24/18 12:00 Mechanical Ventilator Mechanical Ventilator Mechanical Ventilator 05/24/18 11:02 98 16 30 05/24/18 09:03 87 17 30 Status: obtunded Condition: critical HEENT: atraumatic Neck: full ROM Lungs: clear Heart: HR/BP stable Abdomen: soft Extremities: no C/C/E Decubiti: location Micro: Microbiology Date/Time Source Procedure Growth Status 05/22/18 21:20 Blood Blood Culture - Preliminary Staphylococcus Sp Coag Neg Resulted 05/22/18 21:10 Blood Blood Culture - Preliminary Staphylococcus Sp Coag Neg Resulted Accucheck: 125 Critical Care - Subjective ROS Limited/Unobtainable: Yes Condition: critical FI02: 30 Vent Support Breath Rate: 16 Vent Support Mode: AC Vent Tidal Volume: 600 Sputum Amount: Small PEEP: 5.0 PIP: 38 Tube Feeding Amount: 65 I&O: Intake and Output 05/24/18 05/25/18 19:00 07:00 Intake Total 1100 ml 1035 ml Output Total 1175 ml 900 ml Balance -75 ml 135 ml Free Water 200 ml 200 ml Tube Feeding 780 ml 715 ml Other 120 ml 120 ml Output Urine Total 600 ml 800 ml Stool Total 575 ml 100 ml Labs: Laboratory Tests Test 05/24/18 16:15 05/25/18 04:00 Vancomycin Level Trough 15.4 ug/mL (5.0-12.0) H White Blood Count 10.7 K/UL (4.8-10.8) Red Blood Count 4.20 M/UL (4.70-6.10) L Hemoglobin 11.9 G/DL (14.2-18.0) L Hematocrit 35.8 % (42.0-52.0) L Mean Corpuscular Volume 85 FL (80-99) Mean Corpuscular Hemoglobin 28.4 PG (27.0-31.0) Mean Corpuscular Hemoglobin Concent 33.4 G/DL (32.0-36.0) Red Cell Distribution Width 14.8 % (11.6-14.8) Platelet Count 253 K/UL (150-450) Mean Platelet Volume 8.0 FL (6.5-10.1) Neutrophils (%) (Auto) 72.1 % (45.0-75.0) Lymphocytes (%) (Auto) 17.9 % (20.0-45.0) L Monocytes (%) (Auto) 5.3 % (1.0-10.0) Eosinophils (%) (Auto) 4.1 % (0.0-3.0) H Basophils (%) (Auto) 0.7 % (0.0-2.0) Erythrocyte Sedimentation Rate 80 MM/HR (0-15) H Sodium Level 133 MMOL/L (136-145) L Potassium Level 4.1 MMOL/L (3.5-5.1) Chloride Level 99 MMOL/L (98-107) Carbon Dioxide Level 21 MMOL/L (21-32) Anion Gap 13 mmol/L (5-15) Blood Urea Nitrogen 13 mg/dL (7-18) Creatinine 1.0 MG/DL (0.55-1.30) Estimat Glomerular Filtration Rate > 60 mL/min (>60) Glucose Level 125 MG/DL (74-106) H Calcium Level 10.1 MG/DL (8.5-10.1) Phosphorus Level 2.4 MG/DL (2.5-4.9) L Magnesium Level 1.9 MG/DL (1.8-2.4) Total Bilirubin 0.5 MG/DL (0.2-1.0) Aspartate Amino Transf (AST/SGOT) 17 U/L (15-37) Alanine Aminotransferase (ALT/SGPT) 31 U/L (12-78) Alkaline Phosphatase 124 U/L (46-116) H C-Reactive Protein, Quantitative 5.0 mg/dL (0.00-0.90) H Total Protein 8.8 G/DL (6.4-8.2) H Albumin 3.6 G/DL (3.4-5.0) Globulin 5.2 g/dL Albumin/Globulin Ratio 0.7 (1.0-2.7) L Nico Goetz MD May 25, 2018 08:22
[2018-05-25] MEDS: Heparin 5000 units/ml inj SUBQ SCH ×2 (08:55→20:32)
--- NOTE | 2018-05-25 09:03 | Nephrology Progress Note ---
Assessment/Plan Assessment/Plan 1. DIVYA- resolved, 2. Sepsis- on Abx and improving 3. Chronic Resp FL- trached on vent. - Per PULM mgmt 4. Hyponatremia - Na stable 133. GTube flushes with NS 5. SZ- Keppra - monitor as serum sodium 133-135 and stable 6. Hypophos- NaPhos 10 mmol IV ordered Subjective Date patient seen: May 25, 2018 Time patient seen: 09:02 ROS Limited/Unobtainable: Yes Allergies: Coded Allergies: AZTREONAM (Verified Allergy, Unknown, 05/13/18) Subjective Patient trached on vent. Improving Objective Last 24 Hour Vital Signs Date Time Temp Pulse Resp B/P (MAP) Pulse Ox O2 Delivery O2 Flow Rate FiO2 05/25/18 08:00 98.2 83 16 120/79 (93) 100 98.2 05/25/18 06:40 78 17 30 05/25/18 05:09 74 16 30 05/25/18 04:00 98.5 81 21 133/81 (98) 100 98.5 05/25/18 04:00 30 05/25/18 04:00 81 05/25/18 04:00 Mechanical Ventilator 05/25/18 03:25 76 16 30 05/25/18 01:31 71 16 30 05/25/18 00:00 98.6 78 20 130/73 (92) 100 98.6 05/25/18 00:00 30 05/25/18 00:00 Mechanical Ventilator Mechanical Ventilator Mechanical Ventilator 05/25/18 00:00 77 05/24/18 23:36 96 19 30 05/24/18 22:00 99.9 05/24/18 21:01 100.8 05/24/18 20:55 83 16 30 05/24/18 20:39 100.8 81 21 121/73 (89) 98 100.8 05/24/18 20:00 30 05/24/18 20:00 Mechanical Ventilator Mechanical Ventilator Mechanical Ventilator 05/24/18 19:47 79 16 30 05/24/18 19:44 83 05/24/18 17:43 85 16 30 05/24/18 16:00 98.4 90 20 123/86 (98) 100 98.4 05/24/18 16:00 30 05/24/18 16:00 Mechanical Ventilator Mechanical Ventilator Mechanical Ventilator 05/24/18 16:00 89 05/24/18 15:40 91 16 30 05/24/18 14:06 95 05/24/18 13:44 91 16 30 05/24/18 12:12 30 05/24/18 12:10 97.3 94 20 150/62 (91) 97 97.3 05/24/18 12:00 Mechanical Ventilator Mechanical Ventilator Mechanical Ventilator 05/24/18 11:02 98 16 30 05/24/18 09:03 87 17 30 Intake and Output 05/24/18 05/25/18 19:00 07:00 Intake Total 1100 ml 1035 ml Output Total 1175 ml 900 ml Balance -75 ml 135 ml Free Water 200 ml 200 ml Tube Feeding 780 ml 715 ml Other 120 ml 120 ml Output Urine Total 600 ml 800 ml Stool Total 575 ml 100 ml Laboratory Tests 05/24/18 16:15: Vancomycin Level Trough 15.4H 05/25/18 04:00: White Blood Count 10.7, Red Blood Count 4.20L, Hemoglobin 11.9L, Hematocrit 35.8L, Mean Corpuscular Volume 85, Mean Corpuscular Hemoglobin 28.4, Mean Corpuscular Hemoglobin Concent 33.4, Red Cell Distribution Width 14.8, Platelet Count 253, Mean Platelet Volume 8.0, Neutrophils (%) (Auto) 72.1, Lymphocytes (% ) (Auto) 17.9L, Monocytes (%) (Auto) 5.3, Eosinophils (%) (Auto) 4.1H, Basophils (%) (Auto) 0.7, Erythrocyte Sedimentation Rate 80H, Sodium Level 133L , Potassium Level 4.1, Chloride Level 99, Carbon Dioxide Level 21, Anion Gap 13 , Blood Urea Nitrogen 13, Creatinine 1.0, Estimat Glomerular Filtration Rate > 60, Glucose Level 125H, Calcium Level 10.1, Phosphorus Level 2.4L, Magnesium Level 1.9, Total Bilirubin 0.5, Aspartate Amino Transf (AST/SGOT) 17, Alanine Aminotransferase (ALT/SGPT) 31, Alkaline Phosphatase 124H, C-Reactive Protein, Quantitative 5.0H, Total Protein 8.8H, Albumin 3.6, Globulin 5.2, Albumin/ Globulin Ratio 0.7L Height (Feet): 6 Weight (Pounds): 204 General Appearance: WD/WN, no apparent distress EENT: PERRL/EOMI Neck: non-tender, normal alignment, supple Cardiovascular: normal rate, regular rhythm Respiratory/Chest: lungs clear, normal breath sounds Abdomen: non tender, soft Edema: no edema noted Arm (L), no edema noted Arm (R), no edema noted Leg (L), no edema noted Leg (R), no edema noted Pedal (L), no edema noted Pedal (R), no edema noted Generalized Mir Gann M.D. May 25, 2018 09:03
[2018-05-25] MEDS ORDERED: Sodium Phosphate 10 MM in NS 275 ML IVPB ONE (09:15)
--- NOTE | 2018-05-25 09:54 | General Progress Note ---
Assessment/Plan Assessment/Plan prolapse stoma assessed >> no s/sx of infection. no obstruction. anemia work up reviewed >> iron deficiency G tube dependent hepatitis panel negative OB negative supportive care monitor H&H, prn transfusions venofer ppi GTFs per RD, adv to goal GT site care daily/prn abx bowel regime fu labs Subjective ROS Limited/Unobtainable: No Allergies: Coded Allergies: AZTREONAM (Verified Allergy, Unknown, 05/13/18) Objective Last 24 Hour Vital Signs Date Time Temp Pulse Resp B/P (MAP) Pulse Ox O2 Delivery O2 Flow Rate FiO2 05/25/18 09:10 75 16 30 05/25/18 08:00 Mechanical Ventilator 05/25/18 08:00 98.2 83 16 120/79 (93) 100 98.2 05/25/18 08:00 30 05/25/18 06:40 78 17 30 05/25/18 05:09 74 16 30 05/25/18 04:00 98.5 81 21 133/81 (98) 100 98.5 05/25/18 04:00 30 05/25/18 04:00 81 05/25/18 04:00 Mechanical Ventilator 05/25/18 03:25 76 16 30 05/25/18 01:31 71 16 30 05/25/18 00:00 98.6 78 20 130/73 (92) 100 98.6 05/25/18 00:00 30 05/25/18 00:00 Mechanical Ventilator Mechanical Ventilator Mechanical Ventilator 05/25/18 00:00 77 05/24/18 23:36 96 19 30 05/24/18 22:00 99.9 05/24/18 21:01 100.8 05/24/18 20:55 83 16 30 05/24/18 20:39 100.8 81 21 121/73 (89) 98 100.8 05/24/18 20:00 30 05/24/18 20:00 Mechanical Ventilator Mechanical Ventilator Mechanical Ventilator 05/24/18 19:47 79 16 30 05/24/18 19:44 83 05/24/18 17:43 85 16 30 05/24/18 16:00 98.4 90 20 123/86 (98) 100 98.4 05/24/18 16:00 30 05/24/18 16:00 Mechanical Ventilator Mechanical Ventilator Mechanical Ventilator 05/24/18 16:00 89 8/3/18 15:40 91 16 30 05/24/18 14:06 95 05/24/18 13:44 91 16 30 05/24/18 12:12 30 05/24/18 12:10 97.3 94 20 150/62 (91) 97 97.3 05/24/18 12:00 Mechanical Ventilator Mechanical Ventilator Mechanical Ventilator 05/24/18 11:02 98 16 30 Intake and Output 05/24/18 05/25/18 19:00 07:00 Intake Total 1100 ml 1035 ml Output Total 1175 ml 900 ml Balance -75 ml 135 ml Free Water 200 ml 200 ml Tube Feeding 780 ml 715 ml Other 120 ml 120 ml Output Urine Total 600 ml 800 ml Stool Total 575 ml 100 ml Laboratory Tests 05/24/18 16:15: Vancomycin Level Trough 15.4H 05/25/18 04:00: White Blood Count 10.7, Red Blood Count 4.20L, Hemoglobin 11.9L, Hematocrit 35.8L, Mean Corpuscular Volume 85, Mean Corpuscular Hemoglobin 28.4, Mean Corpuscular Hemoglobin Concent 33.4, Red Cell Distribution Width 14.8, Platelet Count 253, Mean Platelet Volume 8.0, Neutrophils (%) (Auto) 72.1, Lymphocytes (% ) (Auto) 17.9L, Monocytes (%) (Auto) 5.3, Eosinophils (%) (Auto) 4.1H, Basophils (%) (Auto) 0.7, Erythrocyte Sedimentation Rate 80H, Sodium Level 133L , Potassium Level 4.1, Chloride Level 99, Carbon Dioxide Level 21, Anion Gap 13 , Blood Urea Nitrogen 13, Creatinine 1.0, Estimat Glomerular Filtration Rate > 60, Glucose Level 125H, Calcium Level 10.1, Phosphorus Level 2.4L, Magnesium Level 1.9, Total Bilirubin 0.5, Aspartate Amino Transf (AST/SGOT) 17, Alanine Aminotransferase (ALT/SGPT) 31, Alkaline Phosphatase 124H, C-Reactive Protein, Quantitative 5.0H, Total Protein 8.8H, Albumin 3.6, Globulin 5.2, Albumin/ Globulin Ratio 0.7L Height (Feet): 6 Weight (Pounds): 204 General Appearance: no apparent distress EENT: normal ENT inspection Neck: supple Cardiovascular: normal rate Respiratory/Chest: decreased breath sounds Abdomen: soft, hypoactive bowel sounds, distended Extremities: non-tender Dae Prater MD May 25, 2018 09:54
[2018-05-25] MEDS ORDERED: Sodium Phosphate 30 MM in NS 275 ML IV ONE (10:00)
[2018-05-25] MEDS ORDERED: NS Irrig 1000ml ONE (10:51)
[2018-05-25] MEDS ORDERED: NS 275ml ONE (10:51)
[2018-05-25 12:00] VITALS: BP 113/85
[2018-05-25] MEDS: Vancomycin 1250mg/D5W 250ml IVPB SCH (12:17)
--- NOTE | 2018-05-25 12:22 | Infectious Diseases Prog Note ---
Assessment/Plan Assessment/Plan Assessment/: Sepsis,, SP Bacteremia CoNS ( 2 different Spp ) 05/22 2DEcho : no Veg Endocarditis -Blood Cx from PICC CoNS 2/2 bottles Peripheral Neg- - Blood Cx ,, and 05/22 CoNS PICC line infection/colonization - TTE negative. - PICC removed and replace by midline on 05/22/18 UTI -u/a wbc 40-60, nit neg, leuk +2; ucx >100k E. aerogenes (S cefepime, cipro/ levo; R Zosyn) -BCX 01/23 E. aerogenes, prob Amp C (S cefepime, cipro/levo; R Zosyn), P. mirabilis ESBL (S Zosyn, Ertapenem); repeta 05/16 10/25 CoNS (suspect contaminant) , 05/18 Staph f/u final results if CoNS may need TTE and IE work up. -CXR 05/17: Increased left pleural effusion, over 3 days. Overall decreased interstitial congestion. Right infrahilar atelectasis -CT abd/p: Right lower quadrant double barrel colostomy, as described. Small peristomal hernia contains bowel loops without evidence of obstruction or strangulation. Left renal staghorn calculus. Bilateral intrarenal calyceal calculi. Borderline hydronephrosis on the right without evidence of downstream obstructive lesion. May indicate mild ureteral pelvic junction obstruction. Somewhat atrophic left kidney. Inspissated contrast ball within the distal sigmoid colon. Gastrostomy in good position. Nonspecific bilateral perinephric fat stranding, could indicate pyelonephritis or could be chronic. Newberry catheter in place. Apparent bladder wall thickening, possibly an artifact of under distention but cystitis is not excludable, particularly in view of mild perivesical fat stranding. Bilateral pulmonary parenchymal atelectasis and consolidation Fever/Leukocytosis; Resolved - Re-evaluate lines, Diarrhea? C. dif? Lactic acidosis, resolved DIVYA, improving chronic resp failure trach/vent dependant BPH GERD HTN DM2 seizure disorder colostomy s/p GT constipation VRE and MRSA colonized Plan: - Continue empiric IV Vancomycin # for bacteremia pending culture results -Continue Ertapenem # 06/04 for Amp-C Enterobacter and ESBL P.mirabilis bacteremia ;- End date 05/30/18 -05/17 CASI Dorsey #4 - Monitor CBC/CMP, temperatures - repeat blood Cx in AM - Recommend Transesophageal ECHO to r/o IE Subjective Allergies: Coded Allergies: AZTREONAM (Verified Allergy, Unknown, 05/13/18) Subjective Afebrile Objective Vital Signs Last 24 Hour Vital Signs Date Time Temp Pulse Resp B/P (MAP) Pulse Ox O2 Delivery O2 Flow Rate FiO2 05/25/18 12:00 98.4 77 16 113/85 (94) 98 98.4 05/25/18 10:59 78 16 30 05/25/18 09:10 75 16 30 05/25/18 08:00 Mechanical Ventilator 05/25/18 08:00 91 05/25/18 08:00 98.2 83 16 120/79 (93) 100 98.2 05/25/18 08:00 30 05/25/18 06:40 78 17 30 05/25/18 05:09 74 16 30 05/25/18 04:00 98.5 81 21 133/81 (98) 100 98.5 05/25/18 04:00 30 05/25/18 04:00 81 05/25/18 04:00 Mechanical Ventilator 05/25/18 03:25 76 16 30 05/25/18 01:31 71 16 30 05/25/18 00:00 98.6 78 20 130/73 (92) 100 98.6 05/25/18 00:00 30 05/25/18 00:00 Mechanical Ventilator Mechanical Ventilator Mechanical Ventilator 05/25/18 00:00 77 05/24/18 23:36 96 19 30 05/24/18 22:00 99.9 05/24/18 21:01 100.8 05/24/18 20:55 83 16 30 05/24/18 20:39 100.8 81 21 121/73 (89) 98 100.8 05/24/18 20:00 30 05/24/18 20:00 Mechanical Ventilator Mechanical Ventilator Mechanical Ventilator 05/24/18 19:47 79 16 30 05/24/18 19:44 83 05/24/18 17:43 85 16 30 05/24/18 16:00 98.4 90 20 123/86 (98) 100 98.4 05/24/18 16:00 30 05/24/18 16:00 Mechanical Ventilator Mechanical Ventilator Mechanical Ventilator 05/24/18 16:00 89 05/24/18 15:40 91 16 30 05/24/18 14:06 95 05/24/18 13:44 91 16 30 Height (Feet): 6 Weight (Pounds): 204 HEENT: anicteric Respiratory/Chest: no respiratory distress Cardiovascular: regularly irregular Abdomen: no organomegaly Microbiology Date/Time Source Procedure Growth Status 05/22/18 21:20 Blood Blood Culture - Preliminary Staphylococcus Sp Coag Neg Resulted 05/22/18 21:10 Blood Blood Culture - Preliminary Staphylococcus Sp Coag Neg Resulted Laboratory Tests Test 05/24/18 16:15 05/25/18 04:00 Vancomycin Level Trough 15.4 ug/mL (5.0-12.0) H White Blood Count 10.7 K/UL (4.8-10.8) Red Blood Count 4.20 M/UL (4.70-6.10) L Hemoglobin 11.9 G/DL (14.2-18.0) L Hematocrit 35.8 % (42.0-52.0) L Mean Corpuscular Volume 85 FL (80-99) Mean Corpuscular Hemoglobin 28.4 PG (27.0-31.0) Mean Corpuscular Hemoglobin Concent 33.4 G/DL (32.0-36.0) Red Cell Distribution Width 14.8 % (11.6-14.8) Platelet Count 253 K/UL (150-450) Mean Platelet Volume 8.0 FL (6.5-10.1) Neutrophils (%) (Auto) 72.1 % (45.0-75.0) Lymphocytes (%) (Auto) 17.9 % (20.0-45.0) L Monocytes (%) (Auto) 5.3 % (1.0-10.0) Eosinophils (%) (Auto) 4.1 % (0.0-3.0) H Basophils (%) (Auto) 0.7 % (0.0-2.0) Erythrocyte Sedimentation Rate 80 MM/HR (0-15) H Sodium Level 133 MMOL/L (136-145) L Potassium Level 4.1 MMOL/L (3.5-5.1) Chloride Level 99 MMOL/L (98-107) Carbon Dioxide Level 21 MMOL/L (21-32) Anion Gap 13 mmol/L (5-15) Blood Urea Nitrogen 13 mg/dL (7-18) Creatinine 1.0 MG/DL (0.55-1.30) Estimat Glomerular Filtration Rate > 60 mL/min (>60) Glucose Level 125 MG/DL (74-106) H Calcium Level 10.1 MG/DL (8.5-10.1) Phosphorus Level 2.4 MG/DL (2.5-4.9) L Magnesium Level 1.9 MG/DL (1.8-2.4) Total Bilirubin 0.5 MG/DL (0.2-1.0) Aspartate Amino Transf (AST/SGOT) 17 U/L (15-37) Alanine Aminotransferase (ALT/SGPT) 31 U/L (12-78) Alkaline Phosphatase 124 U/L (46-116) H C-Reactive Protein, Quantitative 5.0 mg/dL (0.00-0.90) H Total Protein 8.8 G/DL (6.4-8.2) H Albumin 3.6 G/DL (3.4-5.0) Globulin 5.2 g/dL Albumin/Globulin Ratio 0.7 (1.0-2.7) L Current Medications Medications (Trade) Dose Ordered Sig/Va Route PRN Reason Start Time Stop Time Status Last Admin Dose Admin Acetaminophen (Tylenol) 650 mg Q4H PRN ORAL FEVER 05/16/18 14:00 06/13/18 09:59 05/24/18 21:01 Baclofen (Lioresal) 10 mg EVERY 8 HOURS GT 05/20/18 14:00 06/13/18 12:59 05/25/18 06:39 Chlorhexidine Gluconate (Rebecca-Hex 2%) 1 applic DAILY@1999 TOPIC 05/16/18 20:00 06/13/18 19:59 05/24/18 21:00 Dextrose (Dextrose 50%) 25 ml STAT PRN IV Hypoglycemia 05/17/18 08:45 06/14/18 08:44 Dextrose (Dextrose 50%) 50 ml STAT PRN IV Hypoglycemia 05/17/18 08:45 06/14/18 08:44 Ertapenem 1 gm/ Sodium Chloride 55 ml @ 110 mls/hr Q24H IVPB 05/17/18 15:00 05/27/18 14:59 05/24/18 14:28 Heparin Sodium (Porcine) (Heparin 5000 units/ml) 5,000 units EVERY 12 HOURS SUBQ 05/16/18 21:00 06/13/18 20:59 05/25/18 08:55 Insulin Aspart (NovoLOG) Q6HR SUBQ 05/16/18 18:00 06/14/18 11:29 05/25/18 12:08 Lansoprazole (Prevacid) 30 mg DAILY GT 05/17/18 09:00 06/15/18 08:59 05/25/18 08:54 Levetiracetam (Keppra) 1,000 mg Q8HR GT 05/16/18 14:00 06/13/18 12:59 05/25/18 06:39 Ondansetron HCl (Zofran) 4 mg Q6H PRN IVP Nausea & Vomiting 05/16/18 16:00 06/13/18 09:59 Polyethylene Glycol (Miralax) 17 gm BEDTIME GT 05/20/18 21:00 06/14/18 20:59 05/24/18 21:00 Sodium Phosphate 30 mm/Sodium Chloride 285 ml @ 47.5 mls/hr ONCE ONCE IV 05/25/18 10:00 05/25/18 15:59 05/25/18 09:52 Vancomycin HCl (Vanco rx to dose) 1 ea DAILY PRN MISC PER RX PROTOCOL 05/18/18 13:15 06/17/18 13:14 Vancomycin HCl/ Dextrose 250 ml @ 166.667 mls/hr Q18H IVPB 05/23/18 06:00 05/28/18 05:59 05/24/18 18:07 Christian Manriquez MD May 25, 2018 12:22
[2018-05-25] MEDS: Ertapenem 1 GM in NS 55 ML IVPB SCH (15:11)
[2018-05-25] MEDS ORDERED: Tubing IV Secondary IV ONE (15:57)
[2018-05-25 16:00] VITALS: BP 121/79
[2018-05-25 20:00] VITALS: BP 129/75
[2018-05-25] MEDS: Dyna-Hex 2% Top Sol 2oz TOPIC SCH (20:30)
[2018-05-25] MEDS: Miralax 17gm pkt GT SCH (20:30)
[2018-05-26] VITALS: BP 124/75
[2018-05-26 04:00] VITALS: BP 128/84
[2018-05-26] MEDS: levETIRAcetam 500mg/5ml Liquid GT SCH ×3 (05:35→21:10)
[2018-05-26] MEDS: Vancomycin 1250mg/D5W 250ml IVPB SCH ×2 (05:36→23:26)
[2018-05-26] MEDS: NovoLOG Insulin Flexpen SUBQ SCH ×4 (05:38→23:28)
[2018-05-26 05:55] LABS: ANION GAP 13 mmol/L (5-15); BLOOD UREA NITROGEN 13 mg/dL (7-18); CALCIUM 9.9 MG/DL (8.5-10.1); CARBON DIOXIDE 20 MMOL/L (21-32); CHLORIDE 101 MMOL/L (98-107); SODIUM 134 MMOL/L (136-145)
[2018-05-26 08:00] VITALS: BP 122/76
[2018-05-26] MEDS: Heparin 5000 units/ml inj SUBQ SCH ×2 (08:35→21:12)
--- NOTE | 2018-05-26 09:16 | Nephrology Progress Note ---
Assessment/Plan Assessment/Plan 1. DIVYA- resolved, Renal function stable 2. Sepsis- on Abx 3. Chronic Resp FL- trached on vent - Per PULM mgmt 4. Hyponatremia - Na stable 134. GTube flushes with NS 5. SZ- Keppra - monitor as serum sodium 133-135 6. Hypophos- corrected. Recheck in am Subjective Date patient seen: May 26, 2018 Time patient seen: 09:14 ROS Limited/Unobtainable: Yes Allergies: Coded Allergies: AZTREONAM (Verified Allergy, Unknown, 05/13/18) All Systems: reviewed and negative except above Subjective Patient trached/vent- stable Objective Last 24 Hour Vital Signs Date Time Temp Pulse Resp B/P (MAP) Pulse Ox O2 Delivery O2 Flow Rate FiO2 05/26/18 08:00 30 05/26/18 08:00 98.5 71 16 122/76 (91) 99 98.5 05/26/18 08:00 Mechanical Ventilator 05/26/18 07:25 90 17 30 05/26/18 05:14 79 17 30 05/26/18 04:00 98.4 70 16 128/84 (99) 99 98.4 05/26/18 04:00 30 05/26/18 04:00 Mechanical Ventilator 05/26/18 03:38 74 05/26/18 02:51 76 17 30 05/26/18 01:24 74 22 30 05/26/18 00:00 Mechanical Ventilator 05/26/18 00:00 98.8 77 17 124/75 (91) 100 98.8 05/25/18 23:36 79 05/25/18 22:47 77 18 30 05/25/18 21:11 83 17 30 05/25/18 20:00 30 05/25/18 20:00 98.7 80 17 129/75 (93) 99 98.7 05/25/18 20:00 Mechanical Ventilator 05/25/18 19:46 81 05/25/18 19:30 82 16 30 05/25/18 17:09 79 16 30 05/25/18 16:00 30 05/25/18 16:00 98.3 80 17 121/79 (93) 100 98.3 05/25/18 16:00 81 05/25/18 16:00 Mechanical Ventilator 05/25/18 15:00 81 17 30 05/25/18 13:10 79 17 30 05/25/18 12:00 30 05/25/18 12:00 78 05/25/18 12:00 98.4 77 16 113/85 (94) 98 98.4 05/25/18 12:00 Mechanical Ventilator 05/25/18 10:59 78 16 30 Intake and Output 05/25/18 05/26/18 19:00 07:00 Intake Total 1470.000 ml 1098.867 ml Output Total 900 ml 850 ml Balance 570.000 ml 248.867 ml Free Water 90 ml IV Total 590.000 ml 233.867 ml Tube Feeding 780 ml 715 ml Other 100 ml 60 ml Output Urine Total 450 ml 400 ml Stool Total 450 ml 450 ml Laboratory Tests 05/26/18 05:15: Sodium Level 134L, Potassium Level 4.0, Chloride Level 101, Carbon Dioxide Level 20L, Anion Gap 13, Blood Urea Nitrogen 13, Creatinine 1.0, Estimat Glomerular Filtration Rate > 60, Glucose Level 141H, Calcium Level 9.9 Height (Feet): 6 Weight (Pounds): 206 General Appearance: WD/WN EENT: PERRL/EOMI Neck: non-tender, normal alignment Cardiovascular: normal peripheral pulses, normal rate, regular rhythm Respiratory/Chest: lungs clear, normal breath sounds Abdomen: normal bowel sounds, non tender Edema: no edema noted Arm (L), no edema noted Arm (R), no edema noted Leg (L), no edema noted Leg (R), no edema noted Pedal (L), no edema noted Pedal (R), no edema noted Generalized Mir Gann M.D. May 26, 2018 09:16
[2018-05-26] MEDS ORDERED: NS Irrig 1000ml ONE (10:08)
[2018-05-26] MEDS ORDERED: NS 275ml ONE (10:08)
--- NOTE | 2018-05-26 11:00 | General Progress Note ---
Assessment/Plan Assessment/Plan prolapse stoma assessed >> no s/sx of infection. no obstruction. anemia work up reviewed >> iron deficiency G tube dependent hepatitis panel negative OB negative supportive care monitor H&H, prn transfusions venofer ppi GTFs per RD, adv to goal GT site care daily/prn abx bowel regime fu labs Subjective ROS Limited/Unobtainable: No Allergies: Coded Allergies: AZTREONAM (Verified Allergy, Unknown, 05/13/18) Objective Last 24 Hour Vital Signs Date Time Temp Pulse Resp B/P (MAP) Pulse Ox O2 Delivery O2 Flow Rate FiO2 05/26/18 09:29 76 16 30 05/26/18 08:00 30 05/26/18 08:00 84 05/26/18 08:00 98.5 71 16 122/76 (91) 99 98.5 05/26/18 08:00 Mechanical Ventilator 05/26/18 07:25 90 17 30 05/26/18 05:14 79 17 30 05/26/18 04:00 98.4 70 16 128/84 (99) 99 98.4 05/26/18 04:00 30 05/26/18 04:00 Mechanical Ventilator 05/26/18 03:38 74 05/26/18 02:51 76 17 30 05/26/18 01:24 74 22 30 05/26/18 00:00 Mechanical Ventilator 05/26/18 00:00 98.8 77 17 124/75 (91) 100 98.8 05/25/18 23:36 79 05/25/18 22:47 77 18 30 05/25/18 21:11 83 17 30 05/25/18 20:00 30 05/25/18 20:00 98.7 80 17 129/75 (93) 99 98.7 05/25/18 20:00 Mechanical Ventilator 05/25/18 19:46 81 05/25/18 19:30 82 16 30 05/25/18 17:09 79 16 30 05/25/18 16:00 30 05/25/18 16:00 98.3 80 17 121/79 (93) 100 98.3 05/25/18 16:00 81 05/25/18 16:00 Mechanical Ventilator 05/25/18 15:00 81 17 30 05/25/18 13:10 79 17 30 05/25/18 12:00 30 05/25/18 12:00 78 05/25/18 12:00 98.4 77 16 113/85 (94) 98 98.4 05/25/18 12:00 Mechanical Ventilator Intake and Output 05/25/18 05/26/18 19:00 07:00 Intake Total 1470.000 ml 1098.867 ml Output Total 900 ml 850 ml Balance 570.000 ml 248.867 ml Free Water 90 ml IV Total 590.000 ml 233.867 ml Tube Feeding 780 ml 715 ml Other 100 ml 60 ml Output Urine Total 450 ml 400 ml Stool Total 450 ml 450 ml Laboratory Tests 05/26/18 05:15: Sodium Level 134L, Potassium Level 4.0, Chloride Level 101, Carbon Dioxide Level 20L, Anion Gap 13, Blood Urea Nitrogen 13, Creatinine 1.0, Estimat Glomerular Filtration Rate > 60, Glucose Level 141H, Calcium Level 9.9 Height (Feet): 6 Weight (Pounds): 206 General Appearance: lethargic EENT: normal ENT inspection Neck: supple Cardiovascular: normal rate Respiratory/Chest: decreased breath sounds Abdomen: normal bowel sounds, non tender, soft Extremities: non-tender Dae Prater MD May 26, 2018 11:00
[2018-05-26 12:00] VITALS: BP 133/76
--- NOTE | 2018-05-26 13:40 | Pulmonolgy Critical Care Note ---
Critical Care - Asmt/Plan Problems: (1) Acute on chronic respiratory failure (2) Acute on chronic renal insufficiency (3) Severe sepsis (4) Vegetative state (5) Colostomy in place (6) Diabetes mellitus Respiratory: monitor respiratory rate, adjust FIO2 Cardiac: continue to monitor HR/BP Renal: F/U I&O, keep IV fluid Infectious Disease: check cultures Gastrointestinal: continue feedings/current rate Endocrine: monitor blood sugar, check HgA1C Neurologic: PRN Ativan Affect: PRN ativan Prophylaxis: Heparin Critical Care - Objective Last 24 Hour Vital Signs Date Time Temp Pulse Resp B/P (MAP) Pulse Ox O2 Delivery O2 Flow Rate FiO2 05/26/18 13:17 72 17 30 05/26/18 12:00 77 05/26/18 12:00 Mechanical Ventilator 05/26/18 12:00 98.4 72 16 133/76 (95) 100 98.4 05/26/18 12:00 30 05/26/18 11:21 73 17 30 05/26/18 09:29 76 16 30 05/26/18 08:00 30 05/26/18 08:00 84 05/26/18 08:00 98.5 71 16 122/76 (91) 99 98.5 05/26/18 08:00 Mechanical Ventilator 05/26/18 07:25 90 17 30 05/26/18 05:14 79 17 30 05/26/18 04:00 98.4 70 16 128/84 (99) 99 98.4 05/26/18 04:00 30 05/26/18 04:00 Mechanical Ventilator 05/26/18 03:38 74 05/26/18 02:51 76 17 30 05/26/18 01:24 74 22 30 05/26/18 00:00 Mechanical Ventilator 05/26/18 00:00 98.8 77 17 124/75 (91) 100 98.8 05/25/18 23:36 79 05/25/18 22:47 77 18 30 05/25/18 21:11 83 17 30 05/25/18 20:00 30 05/25/18 20:00 98.7 80 17 129/75 (93) 99 98.7 05/25/18 20:00 Mechanical Ventilator 05/25/18 19:46 81 05/25/18 19:30 82 16 30 05/25/18 17:09 79 16 30 05/25/18 16:00 30 05/25/18 16:00 98.3 80 17 121/79 (93) 100 98.3 05/25/18 16:00 81 05/25/18 16:00 Mechanical Ventilator 05/25/18 15:00 81 17 30 Status: sedated Condition: critical HEENT: atraumatic Neck: full ROM Heart: HR/BP stable, HR/BP unstable Abdomen: active bowel sounds Extremities: no C/C/E, edema Decubiti: stage Micro: Microbiology Date/Time Source Procedure Growth Status 05/24/18 10:35 Blood Blood Culture - Preliminary NO GROWTH AFTER 24 HOURS Resulted 05/24/18 10:35 Blood Blood Culture - Preliminary NO GROWTH AFTER 24 HOURS Resulted Accucheck: 138 Critical Care - Subjective ROS Limited/Unobtainable: Yes Condition: critical FI02: 30 Vent Support Breath Rate: 16 Vent Support Mode: AC Vent Tidal Volume: 600 Sputum Amount: Moderate PEEP: 5.0 PIP: 29 Tube Feeding Amount: 65 I&O: Intake and Output 05/25/18 05/26/18 19:00 07:00 Intake Total 1470.000 ml 1098.867 ml Output Total 900 ml 850 ml Balance 570.000 ml 248.867 ml Free Water 90 ml IV Total 590.000 ml 233.867 ml Tube Feeding 780 ml 715 ml Other 100 ml 60 ml Output Urine Total 450 ml 400 ml Stool Total 450 ml 450 ml Labs: Laboratory Tests Test 05/26/18 05:15 Sodium Level 134 MMOL/L (136-145) L Potassium Level 4.0 MMOL/L (3.5-5.1) Chloride Level 101 MMOL/L (98-107) Carbon Dioxide Level 20 MMOL/L (21-32) L Anion Gap 13 mmol/L (5-15) Blood Urea Nitrogen 13 mg/dL (7-18) Creatinine 1.0 MG/DL (0.55-1.30) Estimat Glomerular Filtration Rate > 60 mL/min (>60) Glucose Level 141 MG/DL (74-106) H Calcium Level 9.9 MG/DL (8.5-10.1) Nico Goetz MD May 26, 2018 13:40
[2018-05-26] MEDS: Ertapenem 1 GM in NS 55 ML IVPB SCH (15:24)
[2018-05-26 16:00] VITALS: BP 119/82
[2018-05-26 20:00] VITALS: BP 124/78
--- NOTE | 2018-05-26 20:31 | General Progress Note ---
Assessment/Plan Assessment/Plan # Leukocytosis - Sepsis with elevated temperature of 103 degrees Fahrenheit. Had uti v bacteremia (CoNS) on abx, now resolved --> Pt on antibiotics, has received a dose of Zosyn and currently is on vancomycin q.12 h. now on cefepime --> Appreciate Infectious Disease consult. --> 2D echo per ID # Anemia of chronic disease. No hemolysis, peripheral smear reviewed, ferritin was elevated. --> Continue to closely monitor --> Hgb goal >7 --> 05/24: Hgb 12.6 and recently uptrended # Acute kidney injury. --> Currently on IV fluids, IV bolus given to see if the patient responds along with IV pressor as needed. --> Closely monitor with Nephrology team. # Septic shock, use antibiotic per ID services. --> potential uti, on abx and bacteremia # Respiratory failure, status post tracheostomy, on mechanical ventilation per Dr. Goetz. # Hypercalcemia. Monitor PTH and calcium level The time the note was entered does not necessarily correspond to the time the patient was seen. Subjective Date patient seen: May 25, 2018 Allergies: Coded Allergies: AZTREONAM (Verified Allergy, Unknown, 05/13/18) All Systems: reviewed and negative except above Subjective Pt remains obtunded, on trach/vent. No acute events. getting gtube feedings Objective Last 24 Hour Vital Signs Date Time Temp Pulse Resp B/P (MAP) Pulse Ox O2 Delivery O2 Flow Rate FiO2 05/26/18 19:01 67 16 30 05/26/18 16:55 74 17 30 05/26/18 16:00 30 05/26/18 16:00 69 05/26/18 16:00 Mechanical Ventilator 05/26/18 16:00 98.4 69 16 119/82 (94) 99 98.4 05/26/18 15:03 68 16 30 05/26/18 13:17 72 17 30 05/26/18 12:00 77 05/26/18 12:00 Mechanical Ventilator 05/26/18 12:00 98.4 72 16 133/76 (95) 100 98.4 05/26/18 12:00 30 05/26/18 11:21 73 17 30 05/26/18 09:29 76 16 30 05/26/18 08:00 30 05/26/18 08:00 84 05/26/18 08:00 98.5 71 16 122/76 (91) 99 98.5 05/26/18 08:00 Mechanical Ventilator 05/26/18 07:25 90 17 30 05/26/18 05:14 79 17 30 05/26/18 04:00 98.4 70 16 128/84 (99) 99 98.4 05/26/18 04:00 30 05/26/18 04:00 Mechanical Ventilator 05/26/18 03:38 74 05/26/18 02:51 76 17 30 05/26/18 01:24 74 22 30 05/26/18 00:00 Mechanical Ventilator 05/26/18 00:00 98.8 77 17 124/75 (91) 100 98.8 05/25/18 23:36 79 05/25/18 22:47 77 18 30 05/25/18 21:11 83 17 30 Intake and Output 05/25/18 05/26/18 19:00 07:00 Intake Total 1470.000 ml 1098.867 ml Output Total 900 ml 850 ml Balance 570.000 ml 248.867 ml Free Water 90 ml IV Total 590.000 ml 233.867 ml Tube Feeding 780 ml 715 ml Other 100 ml 60 ml Output Urine Total 450 ml 400 ml Stool Total 450 ml 450 ml Laboratory Tests 05/26/18 05:15: Sodium Level 134L, Potassium Level 4.0, Chloride Level 101, Carbon Dioxide Level 20L, Anion Gap 13, Blood Urea Nitrogen 13, Creatinine 1.0, Estimat Glomerular Filtration Rate > 60, Glucose Level 141H, Calcium Level 9.9 Height (Feet): 6 Weight (Pounds): 206 General Appearance: no apparent distress EENT: normal ENT inspection Neck: supple Cardiovascular: regular rhythm Respiratory/Chest: normal breath sounds Abdomen: non tender Extremities: non-tender Edema: mild edema Neurologic: responsive Skin: normal pigmentation Jimmy Fleming MD May 26, 2018 20:31
[2018-05-26] MEDS: Dyna-Hex 2% Top Sol 2oz TOPIC SCH (21:10)
[2018-05-26] MEDS: Miralax 17gm pkt GT SCH (21:10)
[2018-05-27] VITALS: BP 134/79
[2018-05-27 04:00] VITALS: BP 127/74
[2018-05-27] MEDS: levETIRAcetam 500mg/5ml Liquid GT SCH ×3 (05:35→21:04)
[2018-05-27] MEDS: NovoLOG Insulin Flexpen SUBQ SCH ×4 (05:37→23:56)
[2018-05-27 06:34] LABS: HEMATOCRIT 41.1 % (42.0-52.0); MEAN CORPUSCULAR VOLUME 86 FL (80-99); PLATELET COUNT 253 K/UL (150-450); RED BLOOD COUNT 4.76 M/UL (4.70-6.10); RED CELL DISTRIBUTION WIDTH 14.9 % (11.6-14.8)
[2018-05-27 06:35] LABS: BASOPHILS % (AUTO) 1.4 % (0.0-2.0); EOSINOPHILS % (AUTO) 2.3 % (0.0-3.0); LYMPHOCYTES % (AUTO) 21.1 % (20.0-45.0); NEUTROPHILS % (AUTO) 68.2 % (45.0-75.0)
[2018-05-27 07:00] LABS: ALANINE AMINOTRANSFERASE 35 U/L (12-78); ALBUMIN 3.9 G/DL (3.4-5.0); ALBUMIN/GLOBULIN RATIO 0.7 (1.0-2.7); ALKALINE PHOSPHATASE 141 U/L (46-116); ANION GAP 10 mmol/L (5-15); ASPARTATE AMINO TRANSFERASE 23 U/L (15-37); BILIRUBIN,TOTAL 0.5 MG/DL (0.2-1.0); BLOOD UREA NITROGEN 13 mg/dL (7-18); CALCIUM 10.8 MG/DL (8.5-10.1); CARBON DIOXIDE 21 MMOL/L (21-32); CHLORIDE 100 MMOL/L (98-107); CREATININE 0.9 MG/DL (0.55-1.30); PHOSPHORUS 2.2 MG/DL (2.5-4.9); POTASSIUM 4.3 MMOL/L (3.5-5.1); SODIUM 131 MMOL/L (136-145)
[2018-05-27 08:00] VITALS: BP 120/79
--- NOTE | 2018-05-27 08:39 | Nephrology Progress Note ---
Assessment/Plan Assessment/Plan 1. DIVYA- resolved 2. Sepsis- on Abx 3. Chronic Resp FL- trached on vent - Per PULM mgmt 4. Hyponatremia - Na 131. Free water stopped. Monitor on Keppra 5. SZ- Keppra - monitor as serum sodium 133-135 6. Hypophos- Na Phos replacement this am Subjective Date patient seen: May 27, 2018 Time patient seen: 08:37 ROS Limited/Unobtainable: Yes Allergies: Coded Allergies: AZTREONAM (Verified Allergy, Unknown, 05/13/18) Subjective Patient trached/vent Objective Last 24 Hour Vital Signs Date Time Temp Pulse Resp B/P (MAP) Pulse Ox O2 Delivery O2 Flow Rate FiO2 05/27/18 08:00 97.7 67 19 120/79 (93) 100 97.7 05/27/18 05:10 64 16 30 05/27/18 04:00 65 05/27/18 04:00 Mechanical Ventilator 05/27/18 04:00 98.4 74 19 127/74 (91) 100 98.4 05/27/18 04:00 30 05/27/18 03:00 78 18 30 05/27/18 01:00 71 16 30 05/27/18 00:00 98.6 66 18 134/79 (97) 100 98.6 05/27/18 00:00 68 05/27/18 00:00 Mechanical Ventilator 05/27/18 00:00 30 05/26/18 23:00 73 17 30 05/26/18 21:00 68 16 30 05/26/18 20:00 98.4 67 20 124/78 (93) 100 98.4 05/26/18 20:00 30 05/26/18 20:00 Mechanical Ventilator 05/26/18 20:00 70 05/26/18 19:01 67 16 30 05/26/18 16:55 74 17 30 05/26/18 16:00 30 05/26/18 16:00 69 05/26/18 16:00 Mechanical Ventilator 05/26/18 16:00 98.4 69 16 119/82 (94) 99 98.4 05/26/18 15:03 68 16 30 05/26/18 13:17 72 17 30 05/26/18 12:00 77 05/26/18 12:00 Mechanical Ventilator 05/26/18 12:00 98.4 72 16 133/76 (95) 100 98.4 05/26/18 12:00 30 05/26/18 11:21 73 17 30 05/26/18 09:29 76 16 30 Intake and Output 05/26/18 05/27/18 19:00 07:00 Intake Total 951.133 ml 1195 ml Output Total 1200 ml 450 ml Balance -248.867 ml 745 ml Free Water 50 ml IV Total 71.133 ml 250 ml Tube Feeding 780 ml 845 ml Other 100 ml 50 ml Output Urine Total 700 ml 250 ml Stool Total 500 ml 200 ml Laboratory Tests 05/27/18 06:10: White Blood Count 10.0, Red Blood Count 4.76, Hemoglobin 13.0L, Hematocrit 41.1L , Mean Corpuscular Volume 86, Mean Corpuscular Hemoglobin 27.3, Mean Corpuscular Hemoglobin Concent 31.6L, Red Cell Distribution Width 14.9H, Platelet Count 253, Mean Platelet Volume 7.8, Neutrophils (%) (Auto) 68.2, Lymphocytes (%) (Auto) 21.1, Monocytes (%) (Auto) 7.0, Eosinophils (%) (Auto) 2.3, Basophils (%) (Auto) 1.4, Sodium Level 131L, Potassium Level 4.3, Chloride Level 100, Carbon Dioxide Level 21, Anion Gap 10, Blood Urea Nitrogen 13, Creatinine 0.9, Estimat Glomerular Filtration Rate > 60, Glucose Level 126H, Calcium Level 10.8H, Phosphorus Level 2.2L, Magnesium Level 2.1, Total Bilirubin 0.5, Aspartate Amino Transf (AST/SGOT) 23, Alanine Aminotransferase ( ALT/SGPT) 35, Alkaline Phosphatase 141H, Total Protein 9.4H, Albumin 3.9, Globulin 5.5, Albumin/Globulin Ratio 0.7L Height (Feet): 6 Weight (Pounds): 204 General Appearance: WD/WN EENT: PERRL/EOMI Neck: non-tender, normal alignment Cardiovascular: normal peripheral pulses, normal rate Respiratory/Chest: chest wall non-tender, lungs clear Abdomen: non tender, soft Edema: no edema noted Arm (L), no edema noted Arm (R), no edema noted Leg (L), no edema noted Leg (R), no edema noted Pedal (L), no edema noted Pedal (R), no edema noted Generalized Mir Gann M.D. May 27, 2018 08:39
[2018-05-27] MEDS: Heparin 5000 units/ml inj SUBQ SCH ×2 (08:48→20:32)
--- NOTE | 2018-05-27 08:54 | Infectious Diseases Prog Note ---
Assessment/Plan Assessment/Plan Sepsis, resolving- 2ry to UTI and Bacteremia Blood cultures postive 01/23 bottles with GPC Unclear source will need to R/O Endocarditis Possible PNA initially -u/a wbc 40-60, nit neg, leuk +2; ucx >100k E. aerogenes (S cefepime, cipro/ levo; R Zosyn) -BCX 01/23 E. aerogenes, prob Amp C (S cefepime, cipro/levo; R Zosyn), P. mirabilis ESBL (S Zosyn, Ertapenem); repeta 05/16 10/25 CoNS (suspect contaminant) , 05/18 Staph f/u final results if CoNS may need TTE and IE work up. -CXR 05/17: Increased left pleural effusion, over 3 days. Overall decreased interstitial congestion. Right infrahilar atelectasis -CXR: Cardiomegaly. Mild interstitial congestion. Suspect small bilateral pleural effusions -CT abd/p: Right lower quadrant double barrel colostomy, as described. Small peristomal hernia contains bowel loops without evidence of obstruction or strangulation. Left renal staghorn calculus. Bilateral intrarenal calyceal calculi. Borderline hydronephrosis on the right without evidence of downstream obstructive lesion. May indicate mild ureteral pelvic junction obstruction. Somewhat atrophic left kidney. Inspissated contrast ball within the distal sigmoid colon. Gastrostomy in good position. Nonspecific bilateral perinephric fat stranding, could indicate pyelonephritis or could be chronic. Newberry catheter in place. Apparent bladder wall thickening, possibly an artifact of under distention but cystitis is not excludable, particularly in view of mild perivesical fat stranding. Bilateral pulmonary parenchymal atelectasis and consolidation -Blood Cx from PICC CoNS 2/2 bottles Peripheral Neg- (May be contaminant but will repeat blood Cx given new leukocytosis if positive will need ECHO. - Blood Cx 05/20/18 - GPC - Will need TTE for IE work up and the PICC removed. PICC line infection/colonization - TTE negative. Blood cultures only positive from PICC. Not positive from Peripheral - Will repeat blood cultures x 1 to confirm clearance after PICC replaced. Los suspicion for IE. - PICC replace 05/22/18 Fever/Leukocytosis; Resolved - i recurs Re-evaluate lines, Diarrhea? C. dif? DIVYA, improving Lactic acidosis, resolved chronic resp failure trach/vent dependant BPH GERD HTN DM2 seizure disorder colostomy s/p GT constipation VRE and MRSA colonized Plan: - Continue empiric IV Vancomycin #07/05 for bacteremia/line infection - Abx end date 05/31/18 if JOE negative - Recommend Transesophageal ECHO to r/o IE -Continue Ertapenem #/ for Amp-C Enterobacter and ESBL P.mirabilis bacteremia ; will treat for 14 days - End date 05/30/18 -05/17 SP Zosyn #4 - Monitor CBC/CMP, temperatures - F/U JOE Thank you for this consultation. Will continue to follow along with you. Subjective Allergies: Coded Allergies: AZTREONAM (Verified Allergy, Unknown, 05/13/18) Subjective No acute events over night On Vent. 30% O2 Afebrile still with no leukocytosis JOE pending Objective Vital Signs Last 24 Hour Vital Signs Date Time Temp Pulse Resp B/P (MAP) Pulse Ox O2 Delivery O2 Flow Rate FiO2 05/27/18 08:00 97.7 67 19 120/79 (93) 100 97.7 05/27/18 05:10 64 16 30 05/27/18 04:00 65 05/27/18 04:00 Mechanical Ventilator 05/27/18 04:00 98.4 74 19 127/74 (91) 100 98.4 05/27/18 04:00 30 05/27/18 03:00 78 18 30 05/27/18 01:00 71 16 30 05/27/18 00:00 98.6 66 18 134/79 (97) 100 98.6 05/27/18 00:00 68 05/27/18 00:00 Mechanical Ventilator 05/27/18 00:00 30 05/26/18 23:00 73 17 30 05/26/18 21:00 68 16 30 05/26/18 20:00 98.4 67 20 124/78 (93) 100 98.4 05/26/18 20:00 30 05/26/18 20:00 Mechanical Ventilator 05/26/18 20:00 70 05/26/18 19:01 67 16 30 05/26/18 16:55 74 17 30 05/26/18 16:00 30 05/26/18 16:00 69 8/5/18 16:00 Mechanical Ventilator 05/26/18 16:00 98.4 69 16 119/82 (94) 99 98.4 05/26/18 15:03 68 16 30 05/26/18 13:17 72 17 30 05/26/18 12:00 77 05/26/18 12:00 Mechanical Ventilator 05/26/18 12:00 98.4 72 16 133/76 (95) 100 98.4 05/26/18 12:00 30 05/26/18 11:21 73 17 30 05/26/18 09:29 76 16 30 Height (Feet): 6 Weight (Pounds): 204 Objective GENERAL: No overt distress. On vent 30% O2, Eyes open HEENT: NCAT, DMM, Tracheostomy noted, spittle coming out of mouth PULM: Mild crackles B/L, No wheezing CARDIOVASCULAR: RRR, S1 and S2. Tachycardic. No rubs or gallops. PULMONARY: Mild diffuse expiratory rhonchi with basilar rales. ABDOMEN: Obese and nondistended. +BS, The G-tube and stoma noted. EXTREMITIES: No edema. Fair pedal pulses. Microbiology Date/Time Source Procedure Growth Status 05/26/18 05:30 Blood Blood Culture - Preliminary NO GROWTH AFTER 24 HOURS Resulted 05/26/18 05:15 Blood Blood Culture - Preliminary NO GROWTH AFTER 24 HOURS Resulted 05/24/18 10:35 Blood Blood Culture - Preliminary NO GROWTH AFTER 48 HOURS Resulted 05/24/18 10:35 Blood Blood Culture - Preliminary NO GROWTH AFTER 48 HOURS Resulted Laboratory Tests Test 05/27/18 06:10 White Blood Count 10.0 K/UL (4.8-10.8) Red Blood Count 4.76 M/UL (4.70-6.10) Hemoglobin 13.0 G/DL (14.2-18.0) L Hematocrit 41.1 % (42.0-52.0) L Mean Corpuscular Volume 86 FL (80-99) Mean Corpuscular Hemoglobin 27.3 PG (27.0-31.0) Mean Corpuscular Hemoglobin Concent 31.6 G/DL (32.0-36.0) L Red Cell Distribution Width 14.9 % (11.6-14.8) H Platelet Count 253 K/UL (150-450) Mean Platelet Volume 7.8 FL (6.5-10.1) Neutrophils (%) (Auto) 68.2 % (45.0-75.0) Lymphocytes (%) (Auto) 21.1 % (20.0-45.0) Monocytes (%) (Auto) 7.0 % (1.0-10.0) Eosinophils (%) (Auto) 2.3 % (0.0-3.0) Basophils (%) (Auto) 1.4 % (0.0-2.0) Sodium Level 131 MMOL/L (136-145) L Potassium Level 4.3 MMOL/L (3.5-5.1) Chloride Level 100 MMOL/L (98-107) Carbon Dioxide Level 21 MMOL/L (21-32) Anion Gap 10 mmol/L (5-15) Blood Urea Nitrogen 13 mg/dL (7-18) Creatinine 0.9 MG/DL (0.55-1.30) Estimat Glomerular Filtration Rate > 60 mL/min (>60) Glucose Level 126 MG/DL (74-106) H Calcium Level 10.8 MG/DL (8.5-10.1) H Phosphorus Level 2.2 MG/DL (2.5-4.9) L Magnesium Level 2.1 MG/DL (1.8-2.4) Total Bilirubin 0.5 MG/DL (0.2-1.0) Aspartate Amino Transf (AST/SGOT) 23 U/L (15-37) Alanine Aminotransferase (ALT/SGPT) 35 U/L (12-78) Alkaline Phosphatase 141 U/L (46-116) H Total Protein 9.4 G/DL (6.4-8.2) H Albumin 3.9 G/DL (3.4-5.0) Globulin 5.5 g/dL Albumin/Globulin Ratio 0.7 (1.0-2.7) L Current Medications Medications (Trade) Dose Ordered Sig/Va Route PRN Reason Start Time Stop Time Status Last Admin Dose Admin Acetaminophen (Tylenol) 650 mg Q4H PRN ORAL FEVER 05/16/18 14:00 06/13/18 09:59 05/24/18 21:01 Baclofen (Lioresal) 10 mg EVERY 8 HOURS GT 05/20/18 14:00 06/13/18 12:59 05/27/18 05:35 Chlorhexidine Gluconate (Rebecca-Hex 2%) 1 applic DAILY@2000 TOPIC 05/16/18 20:00 06/13/18 19:59 05/26/18 21:10 Dextrose (Dextrose 50%) 25 ml STAT PRN IV Hypoglycemia 05/17/18 08:45 06/14/18 08:44 Dextrose (Dextrose 50%) 50 ml STAT PRN IV Hypoglycemia 05/17/18 08:45 06/14/18 08:44 Ertapenem 1 gm/ Sodium Chloride 55 ml @ 110 mls/hr Q24H IVPB 05/17/18 15:00 05/30/18 14:59 05/26/18 15:24 Heparin Sodium (Porcine) (Heparin 5000 units/ml) 5,000 units EVERY 12 HOURS SUBQ 05/16/18 21:00 06/13/18 20:59 05/27/18 08:48 Insulin Aspart (NovoLOG) Q6HR SUBQ 05/16/18 18:00 06/14/18 11:29 05/27/18 05:37 Lansoprazole (Prevacid) 30 mg DAILY GT 05/17/18 09:00 06/15/18 08:59 05/27/18 08:42 Levetiracetam (Keppra) 1,000 mg Q8HR GT 05/16/18 14:00 06/13/18 12:59 05/27/18 05:35 Ondansetron HCl (Zofran) 4 mg Q6H PRN IVP Nausea & Vomiting 05/16/18 16:00 06/13/18 09:59 Polyethylene Glycol (Miralax) 17 gm BEDTIME GT 05/20/18 21:00 06/14/18 20:59 05/26/18 21:10 Sodium Phosphate 15 mm/Sodium Chloride 280 ml @ 70.273 mls/ hr ONCE ONCE IVPB 05/27/18 10:00 05/27/18 13:59 Vancomycin HCl (Vanco rx to dose) 1 ea DAILY PRN MISC PER RX PROTOCOL 05/18/18 13:15 06/17/18 13:14 Vancomycin HCl/ Dextrose 250 ml @ 166.667 mls/hr Q18H IVPB 05/23/18 06:00 05/28/18 05:59 05/26/18 23:26 Kali Richter M.D. May 27, 2018 08:54
--- NOTE | 2018-05-27 09:16 | General Progress Note ---
Assessment/Plan Status: unchanged Assessment/Plan # Leukocytosis - Sepsis with elevated temperature of 103 degrees Fahrenheit. Had uti v bacteremia (CoNS) on abx, now resolved --> Pt on antibiotics, has received a dose of Zosyn and currently is on vancomycin q.12 h. now on cefepime --> Appreciate Infectious Disease consult. --> 2D echo per ID performed on 05/22: No discrete vegetations seen, however SBE may not be excluded by transthoracic 2-D echo. --> 05/25: WBC of 10.7 wnl # Anemia of chronic disease. No hemolysis, peripheral smear reviewed, ferritin was elevated. --> Continue to closely monitor --> Hgb goal >7 --> 05/25: Hgb 11.9 # Acute kidney injury. --> Currently on IV fluids, IV bolus given to see if the patient responds along with IV pressor as needed. --> Closely monitor with Nephrology team. # Septic shock, use antibiotic per ID services. --> potential uti, on abx and bacteremia # Respiratory failure, status post tracheostomy, on mechanical ventilation per Dr. Goetz. # Hypercalcemia. Monitor PTH and calcium level The time the note was entered does not necessarily correspond to the time the patient was seen. Subjective Date patient seen: May 26, 2018 ROS Limited/Unobtainable: Yes Hematologic/Lymphatic: Reports: anemia Allergies: Coded Allergies: AZTREONAM (Verified Allergy, Unknown, 05/13/18) All Systems: reviewed and negative except above Subjective Pt remains obtunded, on trach/vent. No acute events. No resp distress. Objective Last 24 Hour Vital Signs Date Time Temp Pulse Resp B/P (MAP) Pulse Ox O2 Delivery O2 Flow Rate FiO2 05/27/18 08:00 97.7 67 19 120/79 (93) 100 97.7 05/27/18 05:10 64 16 30 05/27/18 04:00 65 05/27/18 04:00 Mechanical Ventilator 05/27/18 04:00 98.4 74 19 127/74 (91) 100 98.4 05/27/18 04:00 30 05/27/18 03:00 78 18 30 05/27/18 01:00 71 16 30 05/27/18 00:00 98.6 66 18 134/79 (97) 100 98.6 05/27/18 00:00 68 05/27/18 00:00 Mechanical Ventilator 05/27/18 00:00 30 05/26/18 23:00 73 17 30 05/26/18 21:00 68 16 30 05/26/18 20:00 98.4 67 20 124/78 (93) 100 98.4 05/26/18 20:00 30 05/26/18 20:00 Mechanical Ventilator 05/26/18 20:00 70 05/26/18 19:01 67 16 30 05/26/18 16:55 74 17 30 05/26/18 16:00 30 05/26/18 16:00 69 05/26/18 16:00 Mechanical Ventilator 05/26/18 16:00 98.4 69 16 119/82 (94) 99 98.4 05/26/18 15:03 68 16 30 05/26/18 13:17 72 17 30 05/26/18 12:00 77 05/26/18 12:00 Mechanical Ventilator 05/26/18 12:00 98.4 72 16 133/76 (95) 100 98.4 05/26/18 12:00 30 05/26/18 11:21 73 17 30 05/26/18 09:29 76 16 30 Intake and Output 05/26/18 05/27/18 19:00 07:00 Intake Total 951.133 ml 1195 ml Output Total 1200 ml 450 ml Balance -248.867 ml 745 ml Free Water 50 ml IV Total 71.133 ml 250 ml Tube Feeding 780 ml 845 ml Other 100 ml 50 ml Output Urine Total 700 ml 250 ml Stool Total 500 ml 200 ml Laboratory Tests 05/27/18 06:10: White Blood Count 10.0, Red Blood Count 4.76, Hemoglobin 13.0L, Hematocrit 41.1L , Mean Corpuscular Volume 86, Mean Corpuscular Hemoglobin 27.3, Mean Corpuscular Hemoglobin Concent 31.6L, Red Cell Distribution Width 14.9H, Platelet Count 253, Mean Platelet Volume 7.8, Neutrophils (%) (Auto) 68.2, Lymphocytes (%) (Auto) 21.1, Monocytes (%) (Auto) 7.0, Eosinophils (%) (Auto) 2.3, Basophils (%) (Auto) 1.4, Sodium Level 131L, Potassium Level 4.3, Chloride Level 100, Carbon Dioxide Level 21, Anion Gap 10, Blood Urea Nitrogen 13, Creatinine 0.9, Estimat Glomerular Filtration Rate > 60, Glucose Level 126H, Calcium Level 10.8H, Phosphorus Level 2.2L, Magnesium Level 2.1, Total Bilirubin 0.5, Aspartate Amino Transf (AST/SGOT) 23, Alanine Aminotransferase ( ALT/SGPT) 35, Alkaline Phosphatase 141H, Total Protein 9.4H, Albumin 3.9, Globulin 5.5, Albumin/Globulin Ratio 0.7L Height (Feet): 6 Weight (Pounds): 204 General Appearance: no apparent distress, lethargic EENT: PERRL/EOMI Neck: normal alignment Cardiovascular: normal peripheral pulses Respiratory/Chest: no respiratory distress Abdomen: soft Jimmy Fleming MD May 27, 2018 09:16
[2018-05-27] MEDS ORDERED: Sodium Phosphate 15 MM in NS 275 ML IVPB ONE (10:00)
--- NOTE | 2018-05-27 10:27 | GI Progress Note ---
Assessment/Plan Problems: (1) Parastomal hernia ICD Codes: K43.5 - Parastomal hernia without obstruction or gangrene SNOMED: 780422796 Qualifiers: Qualified Codes: K43.5 - Parastomal hernia without obstruction or gangrene (2) Stoma malfunction SNOMED: 902371692 (3) Colostomy in place ICD Codes: Z93.3 - Colostomy status SNOMED: 872400377, 613816509 (4) Vegetative state ICD Codes: R40.3 - Persistent vegetative state SNOMED: 49549029 (5) Diabetes mellitus ICD Codes: E11.9 - Type 2 diabetes mellitus without complications SNOMED: 40283968 (6) Acute on chronic respiratory failure ICD Codes: J96.20 - Acute and chronic respiratory failure, unspecified whether with hypoxia or hypercapnia SNOMED: 66253196 (7) Severe sepsis ICD Codes: A41.9 - Sepsis, unspecified organism; R65.20 - Severe sepsis without septic shock SNOMED: 78980597 Status: stable Status Narrative Discussed with Dr. Prater. Assessment/Plan prolapse stoma assessed >> no s/sx of infection. no obstruction. anemia work up reviewed >> iron deficiency G tube dependent hepatitis panel negative OB negative supportive care monitor H&H, prn transfusions venofer ppi GTFs per RD, adv to goal GT site care daily/prn abx bowel regime fu labs The patient was seen and examined at bedside and all new and available data was reviewed in the patients chart. I agree with the above findings, impression and plan. (Patient seen earlier today. Signature stamp does not reflect patient encounter time.). - Dae Prater MD Subjective Subjective limited Objective Last 24 Hour Vital Signs Date Time Temp Pulse Resp B/P (MAP) Pulse Ox O2 Delivery O2 Flow Rate FiO2 05/27/18 08:48 68 17 30 05/27/18 08:00 Mechanical Ventilator 05/27/18 08:00 30 05/27/18 08:00 67 05/27/18 08:00 97.7 67 19 120/79 (93) 100 97.7 05/27/18 07:28 61 17 30 05/27/18 05:10 64 16 30 05/27/18 04:00 65 05/27/18 04:00 Mechanical Ventilator 05/27/18 04:00 98.4 74 19 127/74 (91) 100 98.4 05/27/18 04:00 30 05/27/18 03:00 78 18 30 05/27/18 01:00 71 16 30 05/27/18 00:00 98.6 66 18 134/79 (97) 100 98.6 05/27/18 00:00 68 05/27/18 00:00 Mechanical Ventilator 05/27/18 00:00 30 05/26/18 23:00 73 17 30 05/26/18 21:00 68 16 30 05/26/18 20:00 98.4 67 20 124/78 (93) 100 98.4 05/26/18 20:00 30 05/26/18 20:00 Mechanical Ventilator 05/26/18 20:00 70 05/26/18 19:01 67 16 30 05/26/18 16:55 74 17 30 05/26/18 16:00 30 05/26/18 16:00 69 05/26/18 16:00 Mechanical Ventilator 05/26/18 16:00 98.4 69 16 119/82 (94) 99 98.4 05/26/18 15:03 68 16 30 05/26/18 13:17 72 17 30 05/26/18 12:00 77 05/26/18 12:00 Mechanical Ventilator 05/26/18 12:00 98.4 72 16 133/76 (95) 100 98.4 05/26/18 12:00 30 05/26/18 11:21 73 17 30 Intake and Output 05/26/18 05/27/18 19:00 07:00 Intake Total 951.133 ml 1195 ml Output Total 1200 ml 450 ml Balance -248.867 ml 745 ml Free Water 50 ml IV Total 71.133 ml 250 ml Tube Feeding 780 ml 845 ml Other 100 ml 50 ml Output Urine Total 700 ml 250 ml Stool Total 500 ml 200 ml Laboratory Tests Test 05/27/18 06:10 White Blood Count 10.0 K/UL (4.8-10.8) Red Blood Count 4.76 M/UL (4.70-6.10) Hemoglobin 13.0 G/DL (14.2-18.0) L Hematocrit 41.1 % (42.0-52.0) L Mean Corpuscular Volume 86 FL (80-99) Mean Corpuscular Hemoglobin 27.3 PG (27.0-31.0) Mean Corpuscular Hemoglobin Concent 31.6 G/DL (32.0-36.0) L Red Cell Distribution Width 14.9 % (11.6-14.8) H Platelet Count 253 K/UL (150-450) Mean Platelet Volume 7.8 FL (6.5-10.1) Neutrophils (%) (Auto) 68.2 % (45.0-75.0) Lymphocytes (%) (Auto) 21.1 % (20.0-45.0) Monocytes (%) (Auto) 7.0 % (1.0-10.0) Eosinophils (%) (Auto) 2.3 % (0.0-3.0) Basophils (%) (Auto) 1.4 % (0.0-2.0) Sodium Level 131 MMOL/L (136-145) L Potassium Level 4.3 MMOL/L (3.5-5.1) Chloride Level 100 MMOL/L (98-107) Carbon Dioxide Level 21 MMOL/L (21-32) Anion Gap 10 mmol/L (5-15) Blood Urea Nitrogen 13 mg/dL (7-18) Creatinine 0.9 MG/DL (0.55-1.30) Estimat Glomerular Filtration Rate > 60 mL/min (>60) Glucose Level 126 MG/DL (74-106) H Calcium Level 10.8 MG/DL (8.5-10.1) H Phosphorus Level 2.2 MG/DL (2.5-4.9) L Magnesium Level 2.1 MG/DL (1.8-2.4) Total Bilirubin 0.5 MG/DL (0.2-1.0) Aspartate Amino Transf (AST/SGOT) 23 U/L (15-37) Alanine Aminotransferase (ALT/SGPT) 35 U/L (12-78) Alkaline Phosphatase 141 U/L (46-116) H Total Protein 9.4 G/DL (6.4-8.2) H Albumin 3.9 G/DL (3.4-5.0) Globulin 5.5 g/dL Albumin/Globulin Ratio 0.7 (1.0-2.7) L Height (Feet): 6 Weight (Pounds): 204 General Appearance: no apparent distress Cardiovascular: normal rate Respiratory/Chest: other - trach to vent Abdominal Exam: GT site - c/d/i, other - prolapsed stoma Boyd Emmanuel NP May 27, 2018 10:27
--- NOTE | 2018-05-27 11:06 | Pulmonolgy Critical Care Note ---
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, 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, 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 Discussed with: nurses Critical Care - Objective Last 24 Hour Vital Signs Date Time Temp Pulse Resp B/P (MAP) Pulse Ox O2 Delivery O2 Flow Rate FiO2 05/27/18 08:48 68 17 30 05/27/18 08:00 Mechanical Ventilator 05/27/18 08:00 30 05/27/18 08:00 67 05/27/18 08:00 97.7 67 19 120/79 (93) 100 97.7 05/27/18 07:28 61 17 30 05/27/18 05:10 64 16 30 05/27/18 04:00 65 05/27/18 04:00 Mechanical Ventilator 05/27/18 04:00 98.4 74 19 127/74 (91) 100 98.4 05/27/18 04:00 30 05/27/18 03:00 78 18 30 05/27/18 01:00 71 16 30 05/27/18 00:00 98.6 66 18 134/79 (97) 100 98.6 05/27/18 00:00 68 05/27/18 00:00 Mechanical Ventilator 05/27/18 00:00 30 05/26/18 23:00 73 17 30 05/26/18 21:00 68 16 30 05/26/18 20:00 98.4 67 20 124/78 (93) 100 98.4 05/26/18 20:00 30 05/26/18 20:00 Mechanical Ventilator 05/26/18 20:00 70 05/26/18 19:01 67 16 30 05/26/18 16:55 74 17 30 05/26/18 16:00 30 05/26/18 16:00 69 05/26/18 16:00 Mechanical Ventilator 05/26/18 16:00 98.4 69 16 119/82 (94) 99 98.4 05/26/18 15:03 68 16 30 05/26/18 13:17 72 17 30 05/26/18 12:00 77 05/26/18 12:00 Mechanical Ventilator 05/26/18 12:00 98.4 72 16 133/76 (95) 100 98.4 05/26/18 12:00 30 05/26/18 11:21 73 17 30 Status: awake Condition: critical Neck: full ROM Lungs: clear Heart: HR/BP stable, regular Abdomen: non-tender, active bowel sounds Extremities: no C/C/E Decubiti: stage Micro: Microbiology Date/Time Source Procedure Growth Status 05/26/18 05:30 Blood Blood Culture - Preliminary NO GROWTH AFTER 24 HOURS Resulted 05/26/18 05:15 Blood Blood Culture - Preliminary NO GROWTH AFTER 24 HOURS Resulted Accucheck: 133 Critical Care - Subjective ROS Limited/Unobtainable: No Condition: critical FI02: 30 Vent Support Breath Rate: 16 Vent Support Mode: AC Vent Tidal Volume: 600 Sputum Amount: Small PEEP: 5.0 PIP: 30 Tube Feeding Amount: 65 I&O: Intake and Output 05/26/18 05/27/18 19:00 07:00 Intake Total 951.133 ml 1195 ml Output Total 1200 ml 450 ml Balance -248.867 ml 745 ml Free Water 50 ml IV Total 71.133 ml 250 ml Tube Feeding 780 ml 845 ml Other 100 ml 50 ml Output Urine Total 700 ml 250 ml Stool Total 500 ml 200 ml Labs: Laboratory Tests Test 05/27/18 06:10 White Blood Count 10.0 K/UL (4.8-10.8) Red Blood Count 4.76 M/UL (4.70-6.10) Hemoglobin 13.0 G/DL (14.2-18.0) L Hematocrit 41.1 % (42.0-52.0) L Mean Corpuscular Volume 86 FL (80-99) Mean Corpuscular Hemoglobin 27.3 PG (27.0-31.0) Mean Corpuscular Hemoglobin Concent 31.6 G/DL (32.0-36.0) L Red Cell Distribution Width 14.9 % (11.6-14.8) H Platelet Count 253 K/UL (150-450) Mean Platelet Volume 7.8 FL (6.5-10.1) Neutrophils (%) (Auto) 68.2 % (45.0-75.0) Lymphocytes (%) (Auto) 21.1 % (20.0-45.0) Monocytes (%) (Auto) 7.0 % (1.0-10.0) Eosinophils (%) (Auto) 2.3 % (0.0-3.0) Basophils (%) (Auto) 1.4 % (0.0-2.0) Sodium Level 131 MMOL/L (136-145) L Potassium Level 4.3 MMOL/L (3.5-5.1) Chloride Level 100 MMOL/L (98-107) Carbon Dioxide Level 21 MMOL/L (21-32) Anion Gap 10 mmol/L (5-15) Blood Urea Nitrogen 13 mg/dL (7-18) Creatinine 0.9 MG/DL (0.55-1.30) Estimat Glomerular Filtration Rate > 60 mL/min (>60) Glucose Level 126 MG/DL (74-106) H Calcium Level 10.8 MG/DL (8.5-10.1) H Phosphorus Level 2.2 MG/DL (2.5-4.9) L Magnesium Level 2.1 MG/DL (1.8-2.4) Total Bilirubin 0.5 MG/DL (0.2-1.0) Aspartate Amino Transf (AST/SGOT) 23 U/L (15-37) Alanine Aminotransferase (ALT/SGPT) 35 U/L (12-78) Alkaline Phosphatase 141 U/L (46-116) H Total Protein 9.4 G/DL (6.4-8.2) H Albumin 3.9 G/DL (3.4-5.0) Globulin 5.5 g/dL Albumin/Globulin Ratio 0.7 (1.0-2.7) L Nico Goetz MD May 27, 2018 11:06
[2018-05-27 12:00] VITALS: BP 121/78
--- NOTE | 2018-05-27 12:46 | Consultation ---
History of Present Illness General Date patient seen: May 27, 2018 Chief Complaint: Fever Referring physician: EDGAR CARTY Reason for Consultation: PROLAPSE STOMA Present Illness HPI Pt brought in by ambulance from [facility], c/o fever x 3 hours. Per EMS , pt was given 650 acetaminophen one hour ago, no change in temp. Pt's rectal temp in ER 103.7, HR 144, pt recieved with trach on vent, G-tube and colostomy. The patient found to be hypotensive, possible pneumonia, was aggressively hydrated, and noted creatinine of 1.4. He has a stoma colostomy noted with a G- tube. Cardiology consulted to assess for endocarditis. Patient is obtunded in bed. SR on monitor. On Ventilator and tolerated well with setting. No s/sx of respiratory and cardiac distress noted. G-tube feeding running as prescribed rated. HOB elevated. No residual noted. Colostomy bag on right lower quadrant. No s/sx of infection noted. Central line on right upper midline intact and patent Allergies: Coded Allergies: AZTREONAM (Verified Allergy, Unknown, 05/13/18) Medication History Scheduled Baclofen* (Baclofen*), 10 MG GT THREE TIMES A DAY, (Reported) Bisacodyl* (Dulcolax*), 10 MG RECTAL DAILY, (Reported) Calcium Carbonate (Calcium Carbonate), 1,000 MG GT BID, (Reported) Chlorhexidine Gluconate (Peridex), 15 ML MM Q12HR, (Reported) Cholecalciferol (Vitamin D3)* (Vitamin D*), 5,000 UNIT GT ONCE A WEEK, (Reported ) Clonidine Hcl* (Catapres*), 0.1 MG GT EVERY 6 HOURS, (Reported) Cranberry (Cranberry), 400 MG GT DAILY, (Reported) Dextran 70/Hypromellose (Artificial Tears Eye Drops*), 1 DROP BOTH EYES Q4HR, ( Reported) Docusate Sodium* (Docusate Sodium*), 100 MG GT TWICE A DAY, (Reported) Famotidine (Famotidine), 20 MG GT DAILY, (Reported) Glycopyrrolate (Robinul), 2 MG GT BID, (Reported) Insulin Regular, Human* (Novolin R*), 0 SUBQ .SLIDING SCALE, (Reported) Ipratropium/Albuterol Sulfate (DuoNeb 0.5-3(2.5)mg/3ml), 3 ML HHN Q3HR, ( Reported) Levetiracetam* (Levetiracetam*), 1,000 MG GT TID, (Reported) Losartan Potassium* (Losartan Potassium*), 25 MG GT DAILY, (Reported) Multivitamin With Minerals (Multivitamins With Minerals*), 1 TAB GT DAILY, ( Reported) Nystatin* (Nystatin*), 1 APPLIC TOPIC THREE TIMES A DAY, (Reported) Polyethylene Glycol 3350* (Miralax*), 17 GM GT DAILY, (Reported) Sitagliptin* (Januvia*), 50 MG GT DAILY, (Reported) Spironolactone* (Aldactone*), 25 MG GT DAILY, (Reported) Scheduled PRN Acetaminophen 160MG/5ML* (Acetaminophen*), 20.3 ML GT Q4HR PRN for Fever/ Headache/Mild Pain, (Reported) Miscellaneous Medications Lactulose (Lactulose*), 30 ML GT, (Reported) Patient History Healthcare decision maker unk Resuscitation status Full Code Advanced Directive on File No Review of Systems Constitutional: Reports: no symptoms Eye: Reports: no symptoms ENT: Reports: no symptoms Respiratory: Reports: no symptoms Cardiovascular: Reports: no symptoms Gastrointestinal: Reports: no symptoms Genitourinary: Reports: no symptoms Musculoskeletal: Reports: no symptoms Skin: Reports: no symptoms Psychiatric: Reports: no symptoms Neurological: Reports: no symptoms Endocrine: Reports: no symptoms Hematologic/Lymphatic: Reports: no symptoms Physical Exam General Appearance: no apparent distress Lines, tubes and drains: peripheral HEENT: normocephalic, atraumatic Neck: non-tender, normal alignment Respiratory/Chest: chest wall non-tender, normal breath sounds Cardiovascular/Chest: normal peripheral pulses, normal rate, regular rhythm Abdomen: normal bowel sounds, non tender Extremities: normal range of motion, non-tender Skin Exam: normal pigmentation Neurologic: working second hand II-XII grossly normal Last 24 Hour Vital Signs Date Time Temp Pulse Resp B/P (MAP) Pulse Ox O2 Delivery O2 Flow Rate FiO2 05/27/18 12:00 98.1 69 19 121/78 (92) 100 98.1 05/27/18 10:50 82 18 30 05/27/18 08:48 68 17 30 05/27/18 08:00 Mechanical Ventilator 05/27/18 08:00 30 05/27/18 08:00 67 05/27/18 08:00 97.7 67 19 120/79 (93) 100 97.7 05/27/18 07:28 61 17 30 05/27/18 05:10 64 16 30 05/27/18 04:00 65 05/27/18 04:00 Mechanical Ventilator 05/27/18 04:00 98.4 74 19 127/74 (91) 100 98.4 05/27/18 04:00 30 05/27/18 03:00 78 18 30 05/27/18 01:00 71 16 30 05/27/18 00:00 98.6 66 18 134/79 (97) 100 98.6 05/27/18 00:00 68 05/27/18 00:00 Mechanical Ventilator 05/27/18 00:00 30 05/26/18 23:00 73 17 30 05/26/18 21:00 68 16 30 05/26/18 20:00 98.4 67 20 124/78 (93) 100 98.4 05/26/18 20:00 30 05/26/18 20:00 Mechanical Ventilator 05/26/18 20:00 70 05/26/18 19:01 67 16 30 05/26/18 16:55 74 17 30 05/26/18 16:00 30 05/26/18 16:00 69 05/26/18 16:00 Mechanical Ventilator 05/26/18 16:00 98.4 69 16 119/82 (94) 99 98.4 05/26/18 15:03 68 16 30 05/26/18 13:17 72 17 30 Intake and Output 05/26/18 05/27/18 19:00 07:00 Intake Total 951.133 ml 1195 ml Output Total 1200 ml 450 ml Balance -248.867 ml 745 ml Free Water 50 ml IV Total 71.133 ml 250 ml Tube Feeding 780 ml 845 ml Other 100 ml 50 ml Output Urine Total 700 ml 250 ml Stool Total 500 ml 200 ml Laboratory Tests Test 05/27/18 06:10 White Blood Count 10.0 K/UL (4.8-10.8) Red Blood Count 4.76 M/UL (4.70-6.10) Hemoglobin 13.0 G/DL (14.2-18.0) L Hematocrit 41.1 % (42.0-52.0) L Mean Corpuscular Volume 86 FL (80-99) Mean Corpuscular Hemoglobin 27.3 PG (27.0-31.0) Mean Corpuscular Hemoglobin Concent 31.6 G/DL (32.0-36.0) L Red Cell Distribution Width 14.9 % (11.6-14.8) H Platelet Count 253 K/UL (150-450) Mean Platelet Volume 7.8 FL (6.5-10.1) Neutrophils (%) (Auto) 68.2 % (45.0-75.0) Lymphocytes (%) (Auto) 21.1 % (20.0-45.0) Monocytes (%) (Auto) 7.0 % (1.0-10.0) Eosinophils (%) (Auto) 2.3 % (0.0-3.0) Basophils (%) (Auto) 1.4 % (0.0-2.0) Sodium Level 131 MMOL/L (136-145) L Potassium Level 4.3 MMOL/L (3.5-5.1) Chloride Level 100 MMOL/L (98-107) Carbon Dioxide Level 21 MMOL/L (21-32) Anion Gap 10 mmol/L (5-15) Blood Urea Nitrogen 13 mg/dL (7-18) Creatinine 0.9 MG/DL (0.55-1.30) Estimat Glomerular Filtration Rate > 60 mL/min (>60) Glucose Level 126 MG/DL (74-106) H Calcium Level 10.8 MG/DL (8.5-10.1) H Phosphorus Level 2.2 MG/DL (2.5-4.9) L Magnesium Level 2.1 MG/DL (1.8-2.4) Total Bilirubin 0.5 MG/DL (0.2-1.0) Aspartate Amino Transf (AST/SGOT) 23 U/L (15-37) Alanine Aminotransferase (ALT/SGPT) 35 U/L (12-78) Alkaline Phosphatase 141 U/L (46-116) H Total Protein 9.4 G/DL (6.4-8.2) H Albumin 3.9 G/DL (3.4-5.0) Globulin 5.5 g/dL Albumin/Globulin Ratio 0.7 (1.0-2.7) L Height (Feet): 6 Weight (Pounds): 204 Medications Current Medications Medications (Trade) Dose Ordered Sig/Va Route PRN Reason Start Time Stop Time Status Last Admin Dose Admin Acetaminophen (Tylenol) 650 mg Q4H PRN ORAL FEVER 05/16/18 14:00 06/13/18 09:59 05/24/18 21:01 Baclofen (Lioresal) 10 mg EVERY 8 HOURS GT 05/20/18 14:00 06/13/18 12:59 05/27/18 05:35 Chlorhexidine Gluconate (Rebecca-Hex 2%) 1 applic DAILY@2000 TOPIC 05/16/18 20:00 06/13/18 19:59 05/26/18 21:10 Dextrose (Dextrose 50%) 25 ml STAT PRN IV Hypoglycemia 05/17/18 08:45 06/14/18 08:44 Dextrose (Dextrose 50%) 50 ml STAT PRN IV Hypoglycemia 05/17/18 08:45 06/14/18 08:44 Ertapenem 1 gm/ Sodium Chloride 55 ml @ 110 mls/hr Q24H IVPB 05/17/18 15:00 05/30/18 14:59 05/26/18 15:24 Heparin Sodium (Porcine) (Heparin 5000 units/ml) 5,000 units EVERY 12 HOURS SUBQ 05/16/18 21:00 06/13/18 20:59 05/27/18 08:48 Insulin Aspart (NovoLOG) Q6HR SUBQ 05/16/18 18:00 06/14/18 11:29 05/27/18 05:37 Lansoprazole (Prevacid) 30 mg DAILY GT 05/17/18 09:00 06/15/18 08:59 05/27/18 08:42 Levetiracetam (Keppra) 1,000 mg Q8HR GT 05/16/18 14:00 06/13/18 12:59 05/27/18 05:35 Ondansetron HCl (Zofran) 4 mg Q6H PRN IVP Nausea & Vomiting 05/16/18 16:00 06/13/18 09:59 Polyethylene Glycol (Miralax) 17 gm BEDTIME GT 05/20/18 21:00 06/14/18 20:59 05/26/18 21:10 Sodium Phosphate 15 mm/Sodium Chloride 280 ml @ 70.273 mls/ hr ONCE ONCE IVPB 05/27/18 10:00 05/27/18 13:59 05/27/18 09:49 Vancomycin HCl (Vanco rx to dose) 1 ea DAILY PRN MISC PER RX PROTOCOL 05/18/18 13:15 06/17/18 13:14 Vancomycin HCl/ Dextrose 250 ml @ 166.667 mls/hr Q18H IVPB 05/23/18 06:00 06/01/18 23:59 05/26/18 23:26 Assessment/Plan Status: stable Assessment/Plan Assessment: (1) Acute on chronic respiratory failure (2) Acute on chronic renal insufficiency (3) Severe sepsis (4) Vegetative state (5) Colostomy in place (6) Diabetes mellitus Plan: Continue antibiotics Echocardiogram reviewed- no endocarditis Will arrange JOE at later date to ensure no endocarditis Patient afebrile, normal WBC otherwise Continue trach care Continue kesanjuana for seizures Kali Owens M.D. May 27, 2018 12:46
[2018-05-27] MEDS: Ertapenem 1 GM in NS 55 ML IVPB SCH (14:33)
[2018-05-27 16:00] VITALS: BP 118/78
--- NOTE | 2018-05-27 17:18 | General Progress Note ---
Assessment/Plan Status: unchanged Assessment/Plan # Leukocytosis - Sepsis with elevated temperature of 103 degrees Fahrenheit. Had uti v bacteremia (CoNS) on abx, now resolved. --> Pt on antibiotics, has received a dose of Zosyn and currently is on vancomycin q.12 h. now on cefepime --> Appreciate Infectious Disease consult. --> 2D echo per ID performed on 05/22: No discrete vegetations seen, however SBE may not be excluded by transthoracic 2-D echo. --> 05/27: WBC of 10.0, wnl # Anemia of chronic disease. No hemolysis, peripheral smear reviewed, ferritin was elevated. --> Continue to closely monitor --> Hgb goal >7 --> 05/27: Hgb 13.0 # Acute kidney injury. --> Currently on IV fluids, IV bolus given to see if the patient responds along with IV pressor as needed. --> Closely monitor with Nephrology team. # Septic shock, use antibiotic per ID services. --> potential uti, on abx and bacteremia # Respiratory failure, status post tracheostomy, on mechanical ventilation per Dr. Goetz. # Hypercalcemia. Monitor PTH and calcium level. --> 05/27: Elevated at 10.8 The time the note was entered does not necessarily correspond to the time the patient was seen. Subjective ROS Limited/Unobtainable: Yes Hematologic/Lymphatic: Reports: anemia Allergies: Coded Allergies: AZTREONAM (Verified Allergy, Unknown, 05/13/18) All Systems: reviewed and negative except above Subjective Pt remains obtunded, on trach/vent. No acute events. No resp distress. Pt afebrile. JOE pending. Objective Last 24 Hour Vital Signs Date Time Temp Pulse Resp B/P (MAP) Pulse Ox O2 Delivery O2 Flow Rate FiO2 05/27/18 16:00 98.4 68 19 118/78 (91) 100 98.4 05/27/18 16:00 30 05/27/18 16:00 Mechanical Ventilator 05/27/18 15:22 72 16 30 05/27/18 12:37 69 16 30 05/27/18 12:00 30 05/27/18 12:00 Mechanical Ventilator 05/27/18 12:00 98.1 69 19 121/78 (92) 100 98.1 05/27/18 11:32 70 05/27/18 10:50 82 18 30 05/27/18 08:48 68 17 30 05/27/18 08:00 Mechanical Ventilator 05/27/18 08:00 30 05/27/18 08:00 67 05/27/18 08:00 97.7 67 19 120/79 (93) 100 97.7 05/27/18 07:28 61 17 30 05/27/18 05:10 64 16 30 05/27/18 04:00 65 05/27/18 04:00 Mechanical Ventilator 05/27/18 04:00 98.4 74 19 127/74 (91) 100 98.4 05/27/18 04:00 30 05/27/18 03:00 78 18 30 05/27/18 01:00 71 16 30 05/27/18 00:00 98.6 66 18 134/79 (97) 100 98.6 05/27/18 00:00 68 05/27/18 00:00 Mechanical Ventilator 05/27/18 00:00 30 05/26/18 23:00 73 17 30 05/26/18 21:00 68 16 30 05/26/18 20:00 98.4 67 20 124/78 (93) 100 98.4 05/26/18 20:00 30 05/26/18 20:00 Mechanical Ventilator 05/26/18 20:00 70 05/26/18 19:01 67 16 30 Intake and Output 05/26/18 05/27/18 19:00 07:00 Intake Total 951.133 ml 1195 ml Output Total 1200 ml 450 ml Balance -248.867 ml 745 ml Free Water 50 ml IV Total 71.133 ml 250 ml Tube Feeding 780 ml 845 ml Other 100 ml 50 ml Output Urine Total 700 ml 250 ml Stool Total 500 ml 200 ml Laboratory Tests 05/27/18 06:10: White Blood Count 10.0, Red Blood Count 4.76, Hemoglobin 13.0L, Hematocrit 41.1L , Mean Corpuscular Volume 86, Mean Corpuscular Hemoglobin 27.3, Mean Corpuscular Hemoglobin Concent 31.6L, Red Cell Distribution Width 14.9H, Platelet Count 253, Mean Platelet Volume 7.8, Neutrophils (%) (Auto) 68.2, Lymphocytes (%) (Auto) 21.1, Monocytes (%) (Auto) 7.0, Eosinophils (%) (Auto) 2.3, Basophils (%) (Auto) 1.4, Sodium Level 131L, Potassium Level 4.3, Chloride Level 100, Carbon Dioxide Level 21, Anion Gap 10, Blood Urea Nitrogen 13, Creatinine 0.9, Estimat Glomerular Filtration Rate > 60, Glucose Level 126H, Calcium Level 10.8H, Phosphorus Level 2.2L, Magnesium Level 2.1, Total Bilirubin 0.5, Aspartate Amino Transf (AST/SGOT) 23, Alanine Aminotransferase ( ALT/SGPT) 35, Alkaline Phosphatase 141H, Total Protein 9.4H, Albumin 3.9, Globulin 5.5, Albumin/Globulin Ratio 0.7L Height (Feet): 6 Weight (Pounds): 204 General Appearance: no apparent distress EENT: PERRL/EOMI Neck: normal alignment Cardiovascular: normal peripheral pulses Respiratory/Chest: no respiratory distress Abdomen: soft Jimmy Fleming MD May 27, 2018 17:18
[2018-05-27] MEDS: Vancomycin 1250mg/D5W 250ml IVPB SCH (17:27)
[2018-05-27 20:00] VITALS: BP 133/84
--- NOTE | 2018-05-27 20:24 | General Surgery Progress Note ---
General Surgery-Progress Note Subjective Additional Comments stoma pink and viable Objective Last 24 Hour Vital Signs Date Time Temp Pulse Resp B/P (MAP) Pulse Ox O2 Delivery O2 Flow Rate FiO2 05/27/18 19:18 68 18 30 05/27/18 17:10 74 18 30 05/27/18 16:00 98.4 68 19 118/78 (91) 100 98.4 05/27/18 16:00 30 05/27/18 16:00 Mechanical Ventilator 05/27/18 15:35 67 05/27/18 15:22 72 16 30 05/27/18 12:37 69 16 30 05/27/18 12:00 30 05/27/18 12:00 Mechanical Ventilator 05/27/18 12:00 98.1 69 19 121/78 (92) 100 98.1 05/27/18 11:32 70 05/27/18 10:50 82 18 30 05/27/18 08:48 68 17 30 05/27/18 08:00 Mechanical Ventilator 05/27/18 08:00 30 05/27/18 08:00 67 05/27/18 08:00 97.7 67 19 120/79 (93) 100 97.7 05/27/18 07:28 61 17 30 05/27/18 05:10 64 16 30 05/27/18 04:00 65 05/27/18 04:00 Mechanical Ventilator 05/27/18 04:00 98.4 74 19 127/74 (91) 100 98.4 05/27/18 04:00 30 05/27/18 03:00 78 18 30 05/27/18 01:00 71 16 30 05/27/18 00:00 98.6 66 18 134/79 (97) 100 98.6 05/27/18 00:00 68 05/27/18 00:00 Mechanical Ventilator 05/27/18 00:00 30 05/26/18 23:00 73 17 30 05/26/18 21:00 68 16 30 I&O Intake and Output 05/26/18 05/27/18 19:00 07:00 Intake Total 951.133 ml 1195 ml Output Total 1200 ml 450 ml Balance -248.867 ml 745 ml Free Water 50 ml IV Total 71.133 ml 250 ml Tube Feeding 780 ml 845 ml Other 100 ml 50 ml Output Urine Total 700 ml 250 ml Stool Total 500 ml 200 ml Wound: clean Drains: none Cardiovascular: RSR Respiratory: clear Abdomen: soft, distended, non-tender, present bowel sounds Laboratory Tests Test 05/27/18 06:10 White Blood Count 10.0 K/UL (4.8-10.8) Red Blood Count 4.76 M/UL (4.70-6.10) Hemoglobin 13.0 G/DL (14.2-18.0) L Hematocrit 41.1 % (42.0-52.0) L Mean Corpuscular Volume 86 FL (80-99) Mean Corpuscular Hemoglobin 27.3 PG (27.0-31.0) Mean Corpuscular Hemoglobin Concent 31.6 G/DL (32.0-36.0) L Red Cell Distribution Width 14.9 % (11.6-14.8) H Platelet Count 253 K/UL (150-450) Mean Platelet Volume 7.8 FL (6.5-10.1) Neutrophils (%) (Auto) 68.2 % (45.0-75.0) Lymphocytes (%) (Auto) 21.1 % (20.0-45.0) Monocytes (%) (Auto) 7.0 % (1.0-10.0) Eosinophils (%) (Auto) 2.3 % (0.0-3.0) Basophils (%) (Auto) 1.4 % (0.0-2.0) Sodium Level 131 MMOL/L (136-145) L Potassium Level 4.3 MMOL/L (3.5-5.1) Chloride Level 100 MMOL/L (98-107) Carbon Dioxide Level 21 MMOL/L (21-32) Anion Gap 10 mmol/L (5-15) Blood Urea Nitrogen 13 mg/dL (7-18) Creatinine 0.9 MG/DL (0.55-1.30) Estimat Glomerular Filtration Rate > 60 mL/min (>60) Glucose Level 126 MG/DL (74-106) H Calcium Level 10.8 MG/DL (8.5-10.1) H Phosphorus Level 2.2 MG/DL (2.5-4.9) L Magnesium Level 2.1 MG/DL (1.8-2.4) Total Bilirubin 0.5 MG/DL (0.2-1.0) Aspartate Amino Transf (AST/SGOT) 23 U/L (15-37) Alanine Aminotransferase (ALT/SGPT) 35 U/L (12-78) Alkaline Phosphatase 141 U/L (46-116) H Total Protein 9.4 G/DL (6.4-8.2) H Albumin 3.9 G/DL (3.4-5.0) Globulin 5.5 g/dL Albumin/Globulin Ratio 0.7 (1.0-2.7) L Plan Problems: (1) Stoma malfunction (2) Parastomal hernia Assessment & Plan: 52M with history of prior loop colostomy. proximal loop stable. distal with impacted contrast stool but stable. parastomal hernia with small bowel contents in hernia. no obstruction noted at this time. larger appearance of patients stoma is because location and use of loop colostomy in hepatic flexure. it is otherwise viable and stable. Would Highly recommend fixing parastomal hernia but can be done electively. if obstructs will need urgent repair. currently non obstructive will monitor and follow with recs. bowel care d/c planning. if desired will plan for elective repair at later time once not acutely sick in the hospital. thank you for this consultation. (3) Severe sepsis Tino Mancilla May 27, 2018 20:24
[2018-05-27] MEDS: Miralax 17gm pkt GT SCH (20:31)
[2018-05-27] MEDS: Dyna-Hex 2% Top Sol 2oz TOPIC SCH (20:31)
[2018-05-28] VITALS: BP 143/73
[2018-05-28 04:00] VITALS: BP 137/76
[2018-05-28] MEDS: NovoLOG Insulin Flexpen SUBQ SCH ×3 (06:00→18:23)
[2018-05-28 06:13] LABS: EOSINOPHILS % (AUTO) 2.6 % (0.0-3.0); HEMATOCRIT 40.5 % (42.0-52.0); HEMOGLOBIN 12.9 G/DL (14.2-18.0); LYMPHOCYTES % (AUTO) 24.1 % (20.0-45.0); MEAN CORPUSCULAR VOLUME 86 FL (80-99); MONOCYTES % (AUTO) 6.9 % (1.0-10.0); NEUTROPHILS % (AUTO) 65.4 % (45.0-75.0); PLATELET COUNT 284 K/UL (150-450); RED BLOOD COUNT 4.71 M/UL (4.70-6.10); RED CELL DISTRIBUTION WIDTH 15.2 % (11.6-14.8); WHITE BLOOD COUNT 9.7 K/UL (4.8-10.8)
[2018-05-28] MEDS: levETIRAcetam 500mg/5ml Liquid GT SCH ×3 (06:22→21:10)
[2018-05-28 06:40] LABS: ALANINE AMINOTRANSFERASE 40 U/L (12-78); ALBUMIN 3.8 G/DL (3.4-5.0); ALBUMIN/GLOBULIN RATIO 0.7 (1.0-2.7); ALKALINE PHOSPHATASE 135 U/L (46-116); ANION GAP 10 mmol/L (5-15); ASPARTATE AMINO TRANSFERASE 26 U/L (15-37); BILIRUBIN,TOTAL 0.6 MG/DL (0.2-1.0); BLOOD UREA NITROGEN 13 mg/dL (7-18); CARBON DIOXIDE 23 MMOL/L (21-32); CHLORIDE 101 MMOL/L (98-107); CREATININE 0.9 MG/DL (0.55-1.30); POTASSIUM 4.2 MMOL/L (3.5-5.1); SODIUM 134 MMOL/L (136-145)
[2018-05-28 07:09] LABS: PHOSPHORUS 2.4 MG/DL (2.5-4.9)
--- NOTE | 2018-05-28 07:26 | Infectious Diseases Prog Note ---
Assessment/Plan Assessment/Plan Sepsis, resolving- 2ry to UTI and Bacteremia Blood cultures postive 01/23 bottles with GPC Unclear source will need to R/O Endocarditis Possible PNA initially -u/a wbc 40-60, nit neg, leuk +2; ucx >100k E. aerogenes (S cefepime, cipro/ levo; R Zosyn) -BCX 01/23 E. aerogenes, prob Amp C (S cefepime, cipro/levo; R Zosyn), P. mirabilis ESBL (S Zosyn, Ertapenem); repeta 05/16 10/25 CoNS (suspect contaminant) , 05/18 Staph f/u final results if CoNS may need TTE and IE work up. -CXR 05/17: Increased left pleural effusion, over 3 days. Overall decreased interstitial congestion. Right infrahilar atelectasis -CXR: Cardiomegaly. Mild interstitial congestion. Suspect small bilateral pleural effusions -CT abd/p: Right lower quadrant double barrel colostomy, as described. Small peristomal hernia contains bowel loops without evidence of obstruction or strangulation. Left renal staghorn calculus. Bilateral intrarenal calyceal calculi. Borderline hydronephrosis on the right without evidence of downstream obstructive lesion. May indicate mild ureteral pelvic junction obstruction. Somewhat atrophic left kidney. Inspissated contrast ball within the distal sigmoid colon. Gastrostomy in good position. Nonspecific bilateral perinephric fat stranding, could indicate pyelonephritis or could be chronic. Newberry catheter in place. Apparent bladder wall thickening, possibly an artifact of under distention but cystitis is not excludable, particularly in view of mild perivesical fat stranding. Bilateral pulmonary parenchymal atelectasis and consolidation -Blood Cx from PICC CoNS 2/2 bottles Peripheral Neg- (May be contaminant but will repeat blood Cx given new leukocytosis if positive will need ECHO. - Blood Cx 05/20/18 - GPC - Will need TTE for IE work up and the PICC removed. PICC line infection/colonization - TTE negative. Blood cultures only positive from PICC. Not positive from Peripheral - Will repeat blood cultures x 1 to confirm clearance after PICC replaced. Los suspicion for IE. - PICC replace 05/22/18 Fever/Leukocytosis; Resolved - i recurs Re-evaluate lines, Diarrhea? C. dif? DIVYA, improving Lactic acidosis, resolved chronic resp failure trach/vent dependant BPH GERD HTN DM2 seizure disorder colostomy s/p GT constipation VRE and MRSA colonized Plan: - Continue empiric IV Vancomycin #08/04 for bacteremia/line infection - Abx end date 05/31/18 if JOE negative - Recommend Transesophageal ECHO to r/o IE -Continue Ertapenem #/ for Amp-C Enterobacter and ESBL P.mirabilis bacteremia ; will treat for 14 days - End date 05/30/18 -05/17 SP Zosyn #4 - Monitor CBC/CMP, temperatures - F/U JOE - Pulmonary care Thank you for this consultation. Will continue to follow along with you. Subjective Allergies: Coded Allergies: AZTREONAM (Verified Allergy, Unknown, 05/13/18) Subjective No acute changes On Vent. 30% O2 Afebrile still with no leukocytosis JOE pending for later this week Objective Vital Signs Last 24 Hour Vital Signs Date Time Temp Pulse Resp B/P (MAP) Pulse Ox O2 Delivery O2 Flow Rate FiO2 05/28/18 06:39 60 17 30 05/28/18 04:39 64 21 30 05/28/18 04:00 97.7 66 18 137/76 (96) 100 97.7 05/28/18 04:00 Mechanical Ventilator 05/28/18 04:00 30 05/28/18 04:00 59 05/28/18 02:58 62 16 30 05/28/18 01:15 59 17 30 05/28/18 00:00 98.8 62 16 143/73 (96) 100 98.8 05/28/18 00:00 30 05/28/18 00:00 Mechanical Ventilator 05/27/18 23:57 65 05/27/18 23:24 63 16 30 05/27/18 22:03 99.9 05/27/18 21:04 100.2 05/27/18 20:55 100.2 100.2 05/27/18 20:39 70 17 30 05/27/18 20:00 99.2 72 17 133/84 (100) 100 99.2 05/27/18 20:00 Mechanical Ventilator 05/27/18 20:00 30 05/27/18 19:21 69 05/27/18 19:18 68 18 30 05/27/18 17:10 74 18 30 05/27/18 16:00 98.4 68 19 118/78 (91) 100 98.4 05/27/18 16:00 30 05/27/18 16:00 Mechanical Ventilator 05/27/18 15:35 67 05/27/18 15:22 72 16 30 05/27/18 12:37 69 16 30 05/27/18 12:00 30 05/27/18 12:00 Mechanical Ventilator 05/27/18 12:00 98.1 69 19 121/78 (92) 100 98.1 05/27/18 11:32 70 05/27/18 10:50 82 18 30 05/27/18 08:48 68 17 30 05/27/18 08:00 Mechanical Ventilator 05/27/18 08:00 30 05/27/18 08:00 67 05/27/18 08:00 97.7 67 19 120/79 (93) 100 97.7 05/27/18 07:28 61 17 30 Height (Feet): 6 Weight (Pounds): 204 Objective GENERAL: No overt distress. On vent 30% O2, Eyes open HEENT: NCAT, DMM, Tracheostomy noted PULM: Mild crackles in bases B/L, No wheezing CARDIOVASCULAR: RRR, S1 and S2. No rubs or gallops. ABDOMEN: Obese and nondistended. +BS, The G-tube and stoma noted. EXTREMITIES: No edema. 1+ pedal pulses. Microbiology Date/Time Source Procedure Growth Status 05/26/18 05:30 Blood Blood Culture - Preliminary NO GROWTH AFTER 24 HOURS Resulted 05/26/18 05:15 Blood Blood Culture - Preliminary NO GROWTH AFTER 24 HOURS Resulted Laboratory Tests Test 05/28/18 04:35 White Blood Count 9.7 K/UL (4.8-10.8) Red Blood Count 4.71 M/UL (4.70-6.10) Hemoglobin 12.9 G/DL (14.2-18.0) L Hematocrit 40.5 % (42.0-52.0) L Mean Corpuscular Volume 86 FL (80-99) Mean Corpuscular Hemoglobin 27.5 PG (27.0-31.0) Mean Corpuscular Hemoglobin Concent 31.9 G/DL (32.0-36.0) L Red Cell Distribution Width 15.2 % (11.6-14.8) H Platelet Count 284 K/UL (150-450) Mean Platelet Volume 7.4 FL (6.5-10.1) Neutrophils (%) (Auto) 65.4 % (45.0-75.0) Lymphocytes (%) (Auto) 24.1 % (20.0-45.0) Monocytes (%) (Auto) 6.9 % (1.0-10.0) Eosinophils (%) (Auto) 2.6 % (0.0-3.0) Basophils (%) (Auto) 1.0 % (0.0-2.0) Sodium Level 134 MMOL/L (136-145) L Potassium Level 4.2 MMOL/L (3.5-5.1) Chloride Level 101 MMOL/L (98-107) Carbon Dioxide Level 23 MMOL/L (21-32) Anion Gap 10 mmol/L (5-15) Blood Urea Nitrogen 13 mg/dL (7-18) Creatinine 0.9 MG/DL (0.55-1.30) Estimat Glomerular Filtration Rate > 60 mL/min (>60) Glucose Level 102 MG/DL (74-106) Calcium Level 10.0 MG/DL (8.5-10.1) Phosphorus Level 2.4 MG/DL (2.5-4.9) L Magnesium Level 2.1 MG/DL (1.8-2.4) Total Bilirubin 0.6 MG/DL (0.2-1.0) Aspartate Amino Transf (AST/SGOT) 26 U/L (15-37) Alanine Aminotransferase (ALT/SGPT) 40 U/L (12-78) Alkaline Phosphatase 135 U/L (46-116) H Total Protein 9.4 G/DL (6.4-8.2) H Albumin 3.8 G/DL (3.4-5.0) Globulin 5.6 g/dL Albumin/Globulin Ratio 0.7 (1.0-2.7) L Current Medications Medications (Trade) Dose Ordered Sig/Va Route PRN Reason Start Time Stop Time Status Last Admin Dose Admin Acetaminophen (Tylenol) 650 mg Q4H PRN ORAL FEVER 05/16/18 14:00 06/13/18 09:59 05/27/18 21:04 Baclofen (Lioresal) 10 mg EVERY 8 HOURS GT 05/20/18 14:00 06/13/18 12:59 05/28/18 06:21 Chlorhexidine Gluconate (Rebecca-Hex 2%) 1 applic DAILY@2000 TOPIC 05/16/18 20:00 06/13/18 19:59 05/27/18 20:31 Dextrose (Dextrose 50%) 25 ml STAT PRN IV Hypoglycemia 05/17/18 08:45 06/14/18 08:44 Dextrose (Dextrose 50%) 50 ml STAT PRN IV Hypoglycemia 05/17/18 08:45 06/14/18 08:44 Ertapenem 1 gm/ Sodium Chloride 55 ml @ 110 mls/hr Q24H IVPB 05/17/18 15:00 05/30/18 14:59 05/27/18 14:33 Heparin Sodium (Porcine) (Heparin 5000 units/ml) 5,000 units EVERY 12 HOURS SUBQ 05/16/18 21:00 06/13/18 20:59 05/27/18 20:32 Insulin Aspart (NovoLOG) Q6HR SUBQ 05/16/18 18:00 06/14/18 11:29 05/27/18 17:27 Lansoprazole (Prevacid) 30 mg DAILY GT 05/17/18 09:00 06/15/18 08:59 05/27/18 08:42 Levetiracetam (Keppra) 1,000 mg Q8HR GT 05/16/18 14:00 06/13/18 12:59 05/28/18 06:22 Ondansetron HCl (Zofran) 4 mg Q6H PRN IVP Nausea & Vomiting 05/16/18 16:00 06/13/18 09:59 Polyethylene Glycol (Miralax) 17 gm BEDTIME GT 05/20/18 21:00 06/14/18 20:59 05/27/18 20:31 Vancomycin HCl (Vanco rx to dose) 1 ea DAILY PRN MISC PER RX PROTOCOL 05/18/18 13:15 06/17/18 13:14 Vancomycin HCl/ Dextrose 250 ml @ 166.667 mls/hr Q18H IVPB 05/23/18 06:00 06/01/18 23:59 05/27/18 17:27 Kali Richter M.D. May 28, 2018 07:26
[2018-05-28 08:00] VITALS: BP 153/90
--- NOTE | 2018-05-28 08:17 | Nephrology Progress Note ---
Assessment/Plan Assessment/Plan 1. DIVYA- resolved 2. Sepsis- on Abx. JOE today 3. Chronic Resp FL- trached on vent - Per PULM mgmt 4. Hyponatremia - Na 134. Monitor on Keppra 5. SZ- Keppra -sodium 133-135 6. Hypophos- Na Phos replacement Subjective Date patient seen: May 28, 2018 Time patient seen: 08:15 ROS Limited/Unobtainable: Yes Allergies: Coded Allergies: AZTREONAM (Verified Allergy, Unknown, 05/13/18) Subjective Patient trached/vent awaiting JOE today Objective Last 24 Hour Vital Signs Date Time Temp Pulse Resp B/P (MAP) Pulse Ox O2 Delivery O2 Flow Rate FiO2 05/28/18 06:39 60 17 30 05/28/18 04:39 64 21 30 05/28/18 04:00 97.7 66 18 137/76 (96) 100 97.7 05/28/18 04:00 Mechanical Ventilator 05/28/18 04:00 30 05/28/18 04:00 59 05/28/18 02:58 62 16 30 05/28/18 01:15 59 17 30 05/28/18 00:00 98.8 62 16 143/73 (96) 100 98.8 05/28/18 00:00 30 05/28/18 00:00 Mechanical Ventilator 05/27/18 23:57 65 05/27/18 23:24 63 16 30 05/27/18 22:03 99.9 05/27/18 21:04 100.2 05/27/18 20:55 100.2 100.2 05/27/18 20:39 70 17 30 05/27/18 20:00 99.2 72 17 133/84 (100) 100 99.2 05/27/18 20:00 Mechanical Ventilator 05/27/18 20:00 30 05/27/18 19:21 69 05/27/18 19:18 68 18 30 05/27/18 17:10 74 18 30 05/27/18 16:00 98.4 68 19 118/78 (91) 100 98.4 05/27/18 16:00 30 05/27/18 16:00 Mechanical Ventilator 05/27/18 15:35 67 05/27/18 15:22 72 16 30 05/27/18 12:37 69 16 30 05/27/18 12:00 30 05/27/18 12:00 Mechanical Ventilator 05/27/18 12:00 98.1 69 19 121/78 (92) 100 98.1 05/27/18 11:32 70 05/27/18 10:50 82 18 30 05/27/18 08:48 68 17 30 Intake and Output 05/27/18 05/28/18 19:00 07:00 Intake Total 1506.092 ml 420 ml Output Total 1100 ml 750 ml Balance 406.092 ml -330 ml Free Water 140 ml IV Total 586.092 ml Tube Feeding 780 ml 260 ml Other 160 ml Output Urine Total 700 ml 550 ml Stool Total 400 ml 200 ml Laboratory Tests 05/28/18 04:35: White Blood Count 9.7, Red Blood Count 4.71, Hemoglobin 12.9L, Hematocrit 40.5L , Mean Corpuscular Volume 86, Mean Corpuscular Hemoglobin 27.5, Mean Corpuscular Hemoglobin Concent 31.9L, Red Cell Distribution Width 15.2H, Platelet Count 284, Mean Platelet Volume 7.4, Neutrophils (%) (Auto) 65.4, Lymphocytes (%) (Auto) 24.1, Monocytes (%) (Auto) 6.9, Eosinophils (%) (Auto) 2.6, Basophils (%) (Auto) 1.0, Sodium Level 134L, Potassium Level 4.2, Chloride Level 101, Carbon Dioxide Level 23, Anion Gap 10, Blood Urea Nitrogen 13, Creatinine 0.9, Estimat Glomerular Filtration Rate > 60, Glucose Level 102, Calcium Level 10.0, Phosphorus Level 2.4L, Magnesium Level 2.1, Total Bilirubin 0.6, Aspartate Amino Transf (AST/SGOT) 26, Alanine Aminotransferase (ALT/SGPT) 40, Alkaline Phosphatase 135H, Total Protein 9.4H, Albumin 3.8, Globulin 5.6, Albumin/Globulin Ratio 0.7L Height (Feet): 6 Weight (Pounds): 204 General Appearance: WD/WN EENT: PERRL/EOMI Neck: normal alignment, supple Cardiovascular: normal rate, regular rhythm Respiratory/Chest: lungs clear, normal breath sounds Abdomen: non tender, soft Edema: no edema noted Arm (L), no edema noted Arm (R), no edema noted Leg (L), no edema noted Leg (R), no edema noted Pedal (L), no edema noted Pedal (R), no edema noted Generalized Mir Gann M.D. May 28, 2018 08:17
[2018-05-28] MEDS: Heparin 5000 units/ml inj SUBQ SCH ×2 (09:58→21:12)
[2018-05-28] MEDS ORDERED: Sodium Phosphate 15 MM in NS 275 ML IVPB SCH (10:00)
--- NOTE | 2018-05-28 10:39 | Pulmonolgy Critical Care Note ---
Critical Care - Asmt/Plan Problems: (1) Acute on chronic respiratory failure (2) Acute on chronic renal insufficiency (3) Severe sepsis (4) Vegetative state (5) Colostomy in place (6) Diabetes mellitus Respiratory: monitor respiratory rate, adjust FIO2, CXR Cardiac: continue to monitor HR/BP Renal: F/U I&O Infectious Disease: check cultures Gastrointestinal: continue feedings/current rate Endocrine: monitor blood sugar, check TSH Hematologic: monitor H/H, transfuse if hgb<8.5 Neurologic: PRN Ativan, keep patient comfortable Affect: PRN ativan Notes Reviewed: cardio, renal Discussed with: nurses, consultants, telephonic nurse case managerbrand marketing manager - Objective Last 24 Hour Vital Signs Date Time Temp Pulse Resp B/P (MAP) Pulse Ox O2 Delivery O2 Flow Rate FiO2 05/28/18 09:08 59 16 30 05/28/18 08:00 30 05/28/18 08:00 Mechanical Ventilator 05/28/18 08:00 98.5 65 18 153/90 (111) 100 98.5 05/28/18 07:32 63 05/28/18 06:39 60 17 30 05/28/18 04:39 64 21 30 05/28/18 04:00 97.7 66 18 137/76 (96) 100 97.7 05/28/18 04:00 Mechanical Ventilator 05/28/18 04:00 30 05/28/18 04:00 59 05/28/18 02:58 62 16 30 05/28/18 01:15 59 17 30 05/28/18 00:00 98.8 62 16 143/73 (96) 100 98.8 05/28/18 00:00 30 05/28/18 00:00 Mechanical Ventilator 05/27/18 23:57 65 05/27/18 23:24 63 16 30 05/27/18 22:03 99.9 05/27/18 21:04 100.2 05/27/18 20:55 100.2 100.2 05/27/18 20:39 70 17 30 05/27/18 20:00 99.2 72 17 133/84 (100) 100 99.2 05/27/18 20:00 Mechanical Ventilator 05/27/18 20:00 30 05/27/18 19:21 69 05/27/18 19:18 68 18 30 05/27/18 17:10 74 18 30 05/27/18 16:00 98.4 68 19 118/78 (91) 100 98.4 05/27/18 16:00 30 05/27/18 16:00 Mechanical Ventilator 05/27/18 15:35 67 05/27/18 15:22 72 16 30 05/27/18 12:37 69 16 30 05/27/18 12:00 30 05/27/18 12:00 Mechanical Ventilator 05/27/18 12:00 98.1 69 19 121/78 (92) 100 98.1 05/27/18 11:32 70 05/27/18 10:50 82 18 30 Status: obtunded Condition: critical HEENT: atraumatic Heart: HR/BP stable Abdomen: soft, active bowel sounds Extremities: no C/C/E, edema Decubiti: location Micro: Microbiology Date/Time Source Procedure Growth Status 05/26/18 05:30 Blood Blood Culture - Preliminary NO GROWTH AFTER 24 HOURS Resulted 05/26/18 05:15 Blood Blood Culture - Preliminary NO GROWTH AFTER 24 HOURS Resulted Accucheck: 107 Critical Care - Subjective ROS Limited/Unobtainable: No Condition: critical EKG Rhythm: Sinus Rhythm FI02: 30 Vent Support Breath Rate: 16 Vent Support Mode: AC Vent Tidal Volume: 600 Sputum Amount: Moderate PEEP: 5.0 PIP: 33 Tube Feeding Amount: 65 I&O: Intake and Output 05/27/18 05/28/18 19:00 07:00 Intake Total 1506.092 ml 420 ml Output Total 1100 ml 750 ml Balance 406.092 ml -330 ml Free Water 140 ml IV Total 586.092 ml Tube Feeding 780 ml 260 ml Other 160 ml Output Urine Total 700 ml 550 ml Stool Total 400 ml 200 ml Labs: Laboratory Tests Test 05/28/18 04:35 White Blood Count 9.7 K/UL (4.8-10.8) Red Blood Count 4.71 M/UL (4.70-6.10) Hemoglobin 12.9 G/DL (14.2-18.0) L Hematocrit 40.5 % (42.0-52.0) L Mean Corpuscular Volume 86 FL (80-99) Mean Corpuscular Hemoglobin 27.5 PG (27.0-31.0) Mean Corpuscular Hemoglobin Concent 31.9 G/DL (32.0-36.0) L Red Cell Distribution Width 15.2 % (11.6-14.8) H Platelet Count 284 K/UL (150-450) Mean Platelet Volume 7.4 FL (6.5-10.1) Neutrophils (%) (Auto) 65.4 % (45.0-75.0) Lymphocytes (%) (Auto) 24.1 % (20.0-45.0) Monocytes (%) (Auto) 6.9 % (1.0-10.0) Eosinophils (%) (Auto) 2.6 % (0.0-3.0) Basophils (%) (Auto) 1.0 % (0.0-2.0) Sodium Level 134 MMOL/L (136-145) L Potassium Level 4.2 MMOL/L (3.5-5.1) Chloride Level 101 MMOL/L (98-107) Carbon Dioxide Level 23 MMOL/L (21-32) Anion Gap 10 mmol/L (5-15) Blood Urea Nitrogen 13 mg/dL (7-18) Creatinine 0.9 MG/DL (0.55-1.30) Estimat Glomerular Filtration Rate > 60 mL/min (>60) Glucose Level 102 MG/DL (74-106) Calcium Level 10.0 MG/DL (8.5-10.1) Phosphorus Level 2.4 MG/DL (2.5-4.9) L Magnesium Level 2.1 MG/DL (1.8-2.4) Total Bilirubin 0.6 MG/DL (0.2-1.0) Aspartate Amino Transf (AST/SGOT) 26 U/L (15-37) Alanine Aminotransferase (ALT/SGPT) 40 U/L (12-78) Alkaline Phosphatase 135 U/L (46-116) H Total Protein 9.4 G/DL (6.4-8.2) H Albumin 3.8 G/DL (3.4-5.0) Globulin 5.6 g/dL Albumin/Globulin Ratio 0.7 (1.0-2.7) L Nico Goetz MD May 28, 2018 10:39
[2018-05-28 12:00] VITALS: BP 134/81
[2018-05-28] MEDS: Vancomycin 1250mg/D5W 250ml IVPB SCH (12:48)
--- NOTE | 2018-05-28 13:48 | GI Progress Note ---
Assessment/Plan Problems: (1) Parastomal hernia ICD Codes: K43.5 - Parastomal hernia without obstruction or gangrene SNOMED: 536008199 Qualifiers: Qualified Codes: K43.5 - Parastomal hernia without obstruction or gangrene (2) Stoma malfunction SNOMED: 384546736 (3) Colostomy in place ICD Codes: Z93.3 - Colostomy status SNOMED: 958123281, 634956701 (4) Vegetative state ICD Codes: R40.3 - Persistent vegetative state SNOMED: 00190499 (5) Diabetes mellitus ICD Codes: E11.9 - Type 2 diabetes mellitus without complications SNOMED: 46781574 (6) Acute on chronic respiratory failure ICD Codes: J96.20 - Acute and chronic respiratory failure, unspecified whether with hypoxia or hypercapnia SNOMED: 54580027 (7) Severe sepsis ICD Codes: A41.9 - Sepsis, unspecified organism; R65.20 - Severe sepsis without septic shock SNOMED: 64975620 Status: stable, unchanged Status Narrative Discussed with Dr. Prater. Assessment/Plan prolapse stoma assessed >> no s/sx of infection. no obstruction. anemia work up reviewed >> iron deficiency G tube dependent hepatitis panel negative OB negative supportive care monitor H&H, prn transfusions venofer ppi GTFs per RD, adv to goal GT site care daily/prn abx bowel regime fu labs The patient was seen and examined at bedside and all new and available data was reviewed in the patients chart. I agree with the above findings, impression and plan. (Patient seen earlier today. Signature stamp does not reflect patient encounter time.). - Dae Prater MD Subjective Subjective limited Objective Last 24 Hour Vital Signs Date Time Temp Pulse Resp B/P (MAP) Pulse Ox O2 Delivery O2 Flow Rate FiO2 05/28/18 12:00 Mechanical Ventilator 05/28/18 12:00 30 05/28/18 12:00 98.1 60 16 134/81 (98) 100 98.1 05/28/18 10:39 62 17 30 05/28/18 09:08 59 16 30 05/28/18 08:00 30 05/28/18 08:00 Mechanical Ventilator 05/28/18 08:00 98.5 65 18 153/90 (111) 100 98.5 05/28/18 07:32 63 8/7/18 06:39 60 17 30 05/28/18 04:39 64 21 30 05/28/18 04:00 97.7 66 18 137/76 (96) 100 97.7 05/28/18 04:00 Mechanical Ventilator 05/28/18 04:00 30 05/28/18 04:00 59 05/28/18 02:58 62 16 30 05/28/18 01:15 59 17 30 05/28/18 00:00 98.8 62 16 143/73 (96) 100 98.8 05/28/18 00:00 30 05/28/18 00:00 Mechanical Ventilator 05/27/18 23:57 65 05/27/18 23:24 63 16 30 05/27/18 22:03 99.9 05/27/18 21:04 100.2 05/27/18 20:55 100.2 100.2 05/27/18 20:39 70 17 30 05/27/18 20:00 99.2 72 17 133/84 (100) 100 99.2 05/27/18 20:00 Mechanical Ventilator 05/27/18 20:00 30 05/27/18 19:21 69 05/27/18 19:18 68 18 30 05/27/18 17:10 74 18 30 05/27/18 16:00 98.4 68 19 118/78 (91) 100 98.4 05/27/18 16:00 30 05/27/18 16:00 Mechanical Ventilator 05/27/18 15:35 67 05/27/18 15:22 72 16 30 Intake and Output 05/27/18 05/28/18 19:00 07:00 Intake Total 1506.092 ml 420 ml Output Total 1100 ml 750 ml Balance 406.092 ml -330 ml Free Water 140 ml IV Total 586.092 ml Tube Feeding 780 ml 260 ml Other 160 ml Output Urine Total 700 ml 550 ml Stool Total 400 ml 200 ml Laboratory Tests Test 05/28/18 04:35 White Blood Count 9.7 K/UL (4.8-10.8) Red Blood Count 4.71 M/UL (4.70-6.10) Hemoglobin 12.9 G/DL (14.2-18.0) L Hematocrit 40.5 % (42.0-52.0) L Mean Corpuscular Volume 86 FL (80-99) Mean Corpuscular Hemoglobin 27.5 PG (27.0-31.0) Mean Corpuscular Hemoglobin Concent 31.9 G/DL (32.0-36.0) L Red Cell Distribution Width 15.2 % (11.6-14.8) H Platelet Count 284 K/UL (150-450) Mean Platelet Volume 7.4 FL (6.5-10.1) Neutrophils (%) (Auto) 65.4 % (45.0-75.0) Lymphocytes (%) (Auto) 24.1 % (20.0-45.0) Monocytes (%) (Auto) 6.9 % (1.0-10.0) Eosinophils (%) (Auto) 2.6 % (0.0-3.0) Basophils (%) (Auto) 1.0 % (0.0-2.0) Sodium Level 134 MMOL/L (136-145) L Potassium Level 4.2 MMOL/L (3.5-5.1) Chloride Level 101 MMOL/L (98-107) Carbon Dioxide Level 23 MMOL/L (21-32) Anion Gap 10 mmol/L (5-15) Blood Urea Nitrogen 13 mg/dL (7-18) Creatinine 0.9 MG/DL (0.55-1.30) Estimat Glomerular Filtration Rate > 60 mL/min (>60) Glucose Level 102 MG/DL (74-106) Calcium Level 10.0 MG/DL (8.5-10.1) Phosphorus Level 2.4 MG/DL (2.5-4.9) L Magnesium Level 2.1 MG/DL (1.8-2.4) Total Bilirubin 0.6 MG/DL (0.2-1.0) Aspartate Amino Transf (AST/SGOT) 26 U/L (15-37) Alanine Aminotransferase (ALT/SGPT) 40 U/L (12-78) Alkaline Phosphatase 135 U/L (46-116) H Total Protein 9.4 G/DL (6.4-8.2) H Albumin 3.8 G/DL (3.4-5.0) Globulin 5.6 g/dL Albumin/Globulin Ratio 0.7 (1.0-2.7) L Height (Feet): 6 Weight (Pounds): 204 General Appearance: WD/WN, no apparent distress, alert Cardiovascular: normal rate Respiratory/Chest: normal breath sounds, no respiratory distress Abdominal Exam: normal bowel sounds, non tender, soft, other - prolapse stoma Extremities: non-tender Boyd Emmanuel NP May 28, 2018 13:48
[2018-05-28] MEDS ORDERED: Tubing IV Secondary IV ONE (14:21)
[2018-05-28] MEDS: Ertapenem 1 GM in NS 55 ML IVPB SCH (14:34)
--- NOTE | 2018-05-28 15:04 | General Progress Note ---
Assessment/Plan Status: unchanged Assessment/Plan # Leukocytosis - Sepsis with elevated temperature of 103 degrees Fahrenheit. Had uti v bacteremia (CoNS) on abx, now resolved. --> Pt on antibiotics, has received a dose of Zosyn and currently is on vancomycin q.12 h. now on cefepime --> Appreciate Infectious Disease consult. --> 2D echo per ID performed on 05/22: No discrete vegetations seen, however SBE may not be excluded by transthoracic 2-D echo. --> 05/28: WBC of 9.7, wnl # Anemia of chronic disease. No hemolysis, peripheral smear reviewed, ferritin was elevated. --> Continue to closely monitor --> Hgb goal >7 --> 05/28: Hgb 12.9 # Acute kidney injury. --> Currently on IV fluids, IV bolus given to see if the patient responds along with IV pressor as needed. --> Closely monitor with Nephrology team. # Septic shock, use antibiotic per ID services. --> potential uti, on abx and bacteremia # Respiratory failure, status post tracheostomy, on mechanical ventilation per Dr. Goetz. # Hypercalcemia. Monitor PTH and calcium level. --> 05/28: Elevated at 10.0, wnl The time the note was entered does not necessarily correspond to the time the patient was seen. Subjective Date patient seen: May 28, 2018 ROS Limited/Unobtainable: Yes Hematologic/Lymphatic: Reports: anemia Allergies: Coded Allergies: AZTREONAM (Verified Allergy, Unknown, 05/13/18) All Systems: reviewed and negative except above Subjective Pt remains on vent. No acute events. JOE scheduled for today. H/H stable. Vitals are stable. Objective Last 24 Hour Vital Signs Date Time Temp Pulse Resp B/P (MAP) Pulse Ox O2 Delivery O2 Flow Rate FiO2 05/28/18 13:15 62 16 30 05/28/18 12:00 66 05/28/18 12:00 Mechanical Ventilator 05/28/18 12:00 30 05/28/18 12:00 98.1 60 16 134/81 (98) 100 98.1 05/28/18 10:39 62 17 30 05/28/18 09:08 59 16 30 05/28/18 08:00 30 05/28/18 08:00 Mechanical Ventilator 05/28/18 08:00 98.5 65 18 153/90 (111) 100 98.5 05/28/18 07:32 63 05/28/18 06:39 60 17 30 05/28/18 04:39 64 21 30 05/28/18 04:00 97.7 66 18 137/76 (96) 100 97.7 05/28/18 04:00 Mechanical Ventilator 05/28/18 04:00 30 05/28/18 04:00 59 05/28/18 02:58 62 16 30 05/28/18 01:15 59 17 30 05/28/18 00:00 98.8 62 16 143/73 (96) 100 98.8 05/28/18 00:00 30 05/28/18 00:00 Mechanical Ventilator 05/27/18 23:57 65 05/27/18 23:24 63 16 30 05/27/18 22:03 99.9 05/27/18 21:04 100.2 05/27/18 20:55 100.2 100.2 05/27/18 20:39 70 17 30 05/27/18 20:00 99.2 72 17 133/84 (100) 100 99.2 05/27/18 20:00 Mechanical Ventilator 05/27/18 20:00 30 05/27/18 19:21 69 05/27/18 19:18 68 18 30 05/27/18 17:10 74 18 30 05/27/18 16:00 98.4 68 19 118/78 (91) 100 98.4 05/27/18 16:00 30 05/27/18 16:00 Mechanical Ventilator 05/27/18 15:35 67 05/27/18 15:22 72 16 30 Intake and Output 05/27/18 05/28/18 19:00 07:00 Intake Total 1506.092 ml 420 ml Output Total 1100 ml 750 ml Balance 406.092 ml -330 ml Free Water 140 ml IV Total 586.092 ml Tube Feeding 780 ml 260 ml Other 160 ml Output Urine Total 700 ml 550 ml Stool Total 400 ml 200 ml Laboratory Tests 05/28/18 04:35: White Blood Count 9.7, Red Blood Count 4.71, Hemoglobin 12.9L, Hematocrit 40.5L , Mean Corpuscular Volume 86, Mean Corpuscular Hemoglobin 27.5, Mean Corpuscular Hemoglobin Concent 31.9L, Red Cell Distribution Width 15.2H, Platelet Count 284, Mean Platelet Volume 7.4, Neutrophils (%) (Auto) 65.4, Lymphocytes (%) (Auto) 24.1, Monocytes (%) (Auto) 6.9, Eosinophils (%) (Auto) 2.6, Basophils (%) (Auto) 1.0, Sodium Level 134L, Potassium Level 4.2, Chloride Level 101, Carbon Dioxide Level 23, Anion Gap 10, Blood Urea Nitrogen 13, Creatinine 0.9, Estimat Glomerular Filtration Rate > 60, Glucose Level 102, Calcium Level 10.0, Phosphorus Level 2.4L, Magnesium Level 2.1, Total Bilirubin 0.6, Aspartate Amino Transf (AST/SGOT) 26, Alanine Aminotransferase (ALT/SGPT) 40, Alkaline Phosphatase 135H, Total Protein 9.4H, Albumin 3.8, Globulin 5.6, Albumin/Globulin Ratio 0.7L Height (Feet): 6 Weight (Pounds): 204 General Appearance: no apparent distress EENT: PERRL/EOMI Neck: normal alignment Cardiovascular: normal peripheral pulses Respiratory/Chest: no respiratory distress Abdomen: soft Jimmy Fleming MD May 28, 2018 15:04
--- NOTE | 2018-05-28 15:48 | Cardiology Progress Note ---
Assessment/Plan Status: stable Assessment/Plan Assessment: (1) Acute on chronic respiratory failure (2) Acute on chronic renal insufficiency (3) Severe sepsis (4) Vegetative state (5) Colostomy in place (6) Diabetes mellitus Plan: Continue antibiotics Echocardiogram reviewed- no endocarditis Will arrange JOE at later date to ensure no endocarditis Patient afebrile, normal WBC otherwise Continue trach care and tube feeds Continue keppra for seizures Subjective Cardiovascular: Reports: no symptoms Respiratory: Reports: no symptoms Gastrointestinal/Abdominal: Reports: no symptoms Genitourinary: Reports: no symptoms Subjective Afebrile, vitals stable, Pt is obtunded, opens eyes spontaneously. Telemetry shows sinus rhythm. Ventilator settings: portex 7, AC 16, TV: 600, FiO2: 30%, PEEP: 5. GT is in place running glucerna 1.2 @ 65 ml/hr. No residual present. Colostomy bag in place. JOE was supposed to be done today but JOE scheduled for 06/03/18 at 1100, no other opening downstairs. Objective Last 24 Hour Vital Signs Date Time Temp Pulse Resp B/P (MAP) Pulse Ox O2 Delivery O2 Flow Rate FiO2 05/28/18 13:15 62 16 30 05/28/18 12:00 66 05/28/18 12:00 Mechanical Ventilator 05/28/18 12:00 30 05/28/18 12:00 98.1 60 16 134/81 (98) 100 98.1 05/28/18 10:39 62 17 30 05/28/18 09:08 59 16 30 05/28/18 08:00 30 05/28/18 08:00 Mechanical Ventilator 05/28/18 08:00 98.5 65 18 153/90 (111) 100 98.5 05/28/18 07:32 63 05/28/18 06:39 60 17 30 05/28/18 04:39 64 21 30 05/28/18 04:00 97.7 66 18 137/76 (96) 100 97.7 05/28/18 04:00 Mechanical Ventilator 05/28/18 04:00 30 05/28/18 04:00 59 05/28/18 02:58 62 16 30 05/28/18 01:15 59 17 30 05/28/18 00:00 98.8 62 16 143/73 (96) 100 98.8 05/28/18 00:00 30 05/28/18 00:00 Mechanical Ventilator 05/27/18 23:57 65 05/27/18 23:24 63 16 30 05/27/18 22:03 99.9 05/27/18 21:04 100.2 05/27/18 20:55 100.2 100.2 05/27/18 20:39 70 17 30 05/27/18 20:00 99.2 72 17 133/84 (100) 100 99.2 05/27/18 20:00 Mechanical Ventilator 05/27/18 20:00 30 05/27/18 19:21 69 05/27/18 19:18 68 18 30 05/27/18 17:10 74 18 30 05/27/18 16:00 98.4 68 19 118/78 (91) 100 98.4 05/27/18 16:00 30 05/27/18 16:00 Mechanical Ventilator General Appearance: no apparent distress, alert EENT: PERRL/EOMI, normal ENT inspection Neck: non-tender, normal alignment, supple, normal inspection, no JVD Rhythm: NSR Cardiovascular: normal peripheral pulses, normal rate, regular rhythm Respiratory/Chest: chest wall non-tender, lungs clear Abdomen: normal bowel sounds, non tender, soft, no organomegaly, no mass Extremities: normal range of motion, non-tender Neurologic: chemical engineering intern II-XII grossly normal Intake and Output 05/27/18 05/28/18 19:00 07:00 Intake Total 1506.092 ml 420 ml Output Total 1100 ml 750 ml Balance 406.092 ml -330 ml Free Water 140 ml IV Total 586.092 ml Tube Feeding 780 ml 260 ml Other 160 ml Output Urine Total 700 ml 550 ml Stool Total 400 ml 200 ml Laboratory Tests Test 05/28/18 04:35 White Blood Count 9.7 K/UL (4.8-10.8) Red Blood Count 4.71 M/UL (4.70-6.10) Hemoglobin 12.9 G/DL (14.2-18.0) L Hematocrit 40.5 % (42.0-52.0) L Mean Corpuscular Volume 86 FL (80-99) Mean Corpuscular Hemoglobin 27.5 PG (27.0-31.0) Mean Corpuscular Hemoglobin Concent 31.9 G/DL (32.0-36.0) L Red Cell Distribution Width 15.2 % (11.6-14.8) H Platelet Count 284 K/UL (150-450) Mean Platelet Volume 7.4 FL (6.5-10.1) Neutrophils (%) (Auto) 65.4 % (45.0-75.0) Lymphocytes (%) (Auto) 24.1 % (20.0-45.0) Monocytes (%) (Auto) 6.9 % (1.0-10.0) Eosinophils (%) (Auto) 2.6 % (0.0-3.0) Basophils (%) (Auto) 1.0 % (0.0-2.0) Sodium Level 134 MMOL/L (136-145) L Potassium Level 4.2 MMOL/L (3.5-5.1) Chloride Level 101 MMOL/L (98-107) Carbon Dioxide Level 23 MMOL/L (21-32) Anion Gap 10 mmol/L (5-15) Blood Urea Nitrogen 13 mg/dL (7-18) Creatinine 0.9 MG/DL (0.55-1.30) Estimat Glomerular Filtration Rate > 60 mL/min (>60) Glucose Level 102 MG/DL (74-106) Calcium Level 10.0 MG/DL (8.5-10.1) Phosphorus Level 2.4 MG/DL (2.5-4.9) L Magnesium Level 2.1 MG/DL (1.8-2.4) Total Bilirubin 0.6 MG/DL (0.2-1.0) Aspartate Amino Transf (AST/SGOT) 26 U/L (15-37) Alanine Aminotransferase (ALT/SGPT) 40 U/L (12-78) Alkaline Phosphatase 135 U/L (46-116) H Total Protein 9.4 G/DL (6.4-8.2) H Albumin 3.8 G/DL (3.4-5.0) Globulin 5.6 g/dL Albumin/Globulin Ratio 0.7 (1.0-2.7) L Microbiology Date/Time Source Procedure Growth Status 05/26/18 05:30 Blood Blood Culture - Preliminary NO GROWTH AFTER 24 HOURS Resulted 05/26/18 05:15 Blood Blood Culture - Preliminary NO GROWTH AFTER 24 HOURS Resulted Kali Owens M.D. May 28, 2018 15:48
[2018-05-28 16:00] VITALS: BP 148/77
[2018-05-28 20:00] VITALS: BP 130/69
[2018-05-28] MEDS: Dyna-Hex 2% Top Sol 2oz TOPIC SCH (20:04)
[2018-05-28] MEDS: Miralax 17gm pkt GT SCH (21:10)
[2018-05-29] VITALS: BP 125/72
[2018-05-29 04:00] VITALS: BP 143/70
[2018-05-29 04:03] LABS: BASOPHILS % (AUTO) 0.9 % (0.0-2.0); EOSINOPHILS % (AUTO) 2.1 % (0.0-3.0); HEMATOCRIT 40.2 % (42.0-52.0); HEMOGLOBIN 12.7 G/DL (14.2-18.0); LYMPHOCYTES % (AUTO) 16.4 % (20.0-45.0); MEAN CORPUSCULAR VOLUME 86 FL (80-99); MONOCYTES % (AUTO) 6.3 % (1.0-10.0); NEUTROPHILS % (AUTO) 74.3 % (45.0-75.0); PLATELET COUNT 327 K/UL (150-450); RED BLOOD COUNT 4.68 M/UL (4.70-6.10); RED CELL DISTRIBUTION WIDTH 15.8 % (11.6-14.8); WHITE BLOOD COUNT 11.8 K/UL (4.8-10.8)
[2018-05-29 04:17] LABS: ALANINE AMINOTRANSFERASE 54 U/L (12-78); ALBUMIN 3.8 G/DL (3.4-5.0); ALBUMIN/GLOBULIN RATIO 0.7 (1.0-2.7); ALKALINE PHOSPHATASE 141 U/L (46-116); ANION GAP 12 mmol/L (5-15); ASPARTATE AMINO TRANSFERASE 30 U/L (15-37); BILIRUBIN,TOTAL 0.7 MG/DL (0.2-1.0); BLOOD UREA NITROGEN 12 mg/dL (7-18); CALCIUM 10.2 MG/DL (8.5-10.1); CARBON DIOXIDE 22 MMOL/L (21-32); CHLORIDE 100 MMOL/L (98-107); POTASSIUM 3.9 MMOL/L (3.5-5.1); SODIUM 134 MMOL/L (136-145)
[2018-05-29] MEDS: Vancomycin 1250mg/D5W 250ml IVPB SCH (05:37)
[2018-05-29] MEDS: levETIRAcetam 500mg/5ml Liquid GT SCH ×3 (05:37→22:02)
[2018-05-29] MEDS: NovoLOG Insulin Flexpen SUBQ SCH ×5 (06:21→23:45)
--- NOTE | 2018-05-29 06:24 | General Progress Note ---
Assessment/Plan Assessment/Plan # Leukocytosis - Sepsis with elevated temperature of 103 degrees Fahrenheit. Had uti v bacteremia (CoNS) on abx, had improved --> Pt on antibiotics, has received a dose of Zosyn and currently is on vancomycin q.12 h. now on cefepime --> Appreciate Infectious Disease recs --> 2D echo per ID performed on 05/22: No discrete vegetations seen, however SBE may not be excluded by transthoracic 2-D echo. --> 05/28: WBC of 9.7, wnl # Anemia of chronic disease. No hemolysis, peripheral smear reviewed, ferritin was elevated. --> Continue to closely monitor --> Hgb goal >7 --> 05/28: Hgb 12.9 # Acute kidney injury. --> Currently on IV fluids, IV bolus given to see if the patient responds along with IV pressor as needed. --> Closely monitor with Nephrology team. # Septic shock, use antibiotic per ID services. --> potential uti, on abx and bacteremia # Respiratory failure, status post tracheostomy, on mechanical ventilation per Dr. Goetz # Hypercalcemia. Monitor PTH and calcium level. --> 05/28: Elevated at 10.0, currently borderline The time the note was entered does not necessarily correspond to the time the patient was seen. Subjective Allergies: Coded Allergies: AZTREONAM (Verified Allergy, Unknown, 05/13/18) All Systems: reviewed and negative except above Subjective Pt remains on vent. No acute events. tongue protruding. H/H stable. Vitals are stable. Objective Last 24 Hour Vital Signs Date Time Temp Pulse Resp B/P (MAP) Pulse Ox O2 Delivery O2 Flow Rate FiO2 05/29/18 05:19 81 17 30 05/29/18 04:00 Mechanical Ventilator 05/29/18 04:00 30 05/29/18 04:00 97.5 77 17 143/70 (94) 99 97.5 05/29/18 04:00 80 05/29/18 02:51 79 17 30 05/29/18 01:15 86 18 30 05/29/18 00:00 97.9 75 16 125/72 (89) 99 97.9 05/29/18 00:00 Mechanical Ventilator 05/28/18 22:42 77 16 30 05/28/18 21:01 66 17 30 05/28/18 20:00 30 05/28/18 20:00 97.7 70 18 130/69 (89) 100 97.7 05/28/18 20:00 78 05/28/18 20:00 Mechanical Ventilator 05/28/18 19:10 68 16 30 05/28/18 17:07 80 17 30 05/28/18 16:00 Mechanical Ventilator 05/28/18 16:00 30 05/28/18 16:00 98.1 73 18 148/77 (100) 100 98.1 05/28/18 16:00 73 05/28/18 15:20 72 16 30 05/28/18 13:15 62 16 30 05/28/18 12:00 66 05/28/18 12:00 Mechanical Ventilator 05/28/18 12:00 30 05/28/18 12:00 98.1 60 16 134/81 (98) 100 98.1 05/28/18 10:39 62 17 30 05/28/18 09:08 59 16 30 05/28/18 08:00 30 05/28/18 08:00 Mechanical Ventilator 05/28/18 08:00 98.5 65 18 153/90 (111) 100 98.5 05/28/18 07:32 63 05/28/18 06:39 60 17 30 Intake and Output 05/28/18 05/29/18 19:00 07:00 Intake Total 345 ml 445 ml Output Total 525 ml 925 ml Balance -180 ml -480 ml Tube Feeding 245 ml 385 ml Other 100 ml 60 ml Output Urine Total 525 ml 500 ml Stool Total 425 ml Laboratory Tests 05/29/18 03:45: White Blood Count 11.8H, Red Blood Count 4.68L, Hemoglobin 12.7L, Hematocrit 40.2L, Mean Corpuscular Volume 86, Mean Corpuscular Hemoglobin 27.1, Mean Corpuscular Hemoglobin Concent 31.5L, Red Cell Distribution Width 15.8H, Platelet Count 327, Mean Platelet Volume 7.8, Neutrophils (%) (Auto) 74.3, Lymphocytes (%) (Auto) 16.4L, Monocytes (%) (Auto) 6.3, Eosinophils (%) (Auto) 2.1, Basophils (%) (Auto) 0.9, Sodium Level 134L, Potassium Level 3.9, Chloride Level 100, Carbon Dioxide Level 22, Anion Gap 12, Blood Urea Nitrogen 12, Creatinine 1.0, Estimat Glomerular Filtration Rate > 60, Glucose Level 115H, Calcium Level 10.2H, Phosphorus Level 2.5, Magnesium Level 2.2, Total Bilirubin 0.7, Aspartate Amino Transf (AST/SGOT) 30, Alanine Aminotransferase (ALT/SGPT) 54, Alkaline Phosphatase 141H, Total Protein 9.3H, Albumin 3.8, Globulin 5.5, Albumin/Globulin Ratio 0.7L, Vancomycin Level Trough 15.9H Height (Feet): 6 Weight (Pounds): 204 General Appearance: no apparent distress EENT: TMs normal Neck: supple Cardiovascular: regular rhythm Respiratory/Chest: lungs clear Abdomen: abnormal bowel sounds Extremities: non-tender Edema: 1+ Leg (L), 1+ Leg (R) Edema: trace edema Neurologic: alert Skin: warm/dry Jimmy Fleming MD May 29, 2018 06:24
[2018-05-29 08:00] VITALS: BP 152/77
[2018-05-29] MEDS: Heparin 5000 units/ml inj SUBQ SCH ×3 (08:37→22:01)
--- NOTE | 2018-05-29 08:44 | Nephrology Progress Note ---
Assessment/Plan Assessment/Plan 1. DIVYA- resolved 2. Sepsis- on Abx. Awaiting DC and JOE next week 3. Chronic Resp FL- trached on vent - Per PULM mgmt 4. Hyponatremia - Na stable at 134 5. SZ- Keppra -sodium 133-135 6. Hypophos- corrected Subjective Date patient seen: May 29, 2018 Time patient seen: 08:42 ROS Limited/Unobtainable: Yes Allergies: Coded Allergies: AZTREONAM (Verified Allergy, Unknown, 05/13/18) Subjective Patient trached/vent. Awaiting DC Objective Last 24 Hour Vital Signs Date Time Temp Pulse Resp B/P (MAP) Pulse Ox O2 Delivery O2 Flow Rate FiO2 05/29/18 08:00 30 05/29/18 08:00 Mechanical Ventilator 05/29/18 08:00 98.2 74 17 152/77 (102) 100 98.2 05/29/18 07:16 75 18 30 05/29/18 05:19 81 17 30 05/29/18 04:00 Mechanical Ventilator 05/29/18 04:00 30 05/29/18 04:00 97.5 77 17 143/70 (94) 99 97.5 05/29/18 04:00 80 05/29/18 02:51 79 17 30 05/29/18 01:15 86 18 30 05/29/18 00:00 97.9 75 16 125/72 (89) 99 97.9 05/29/18 00:00 Mechanical Ventilator 05/28/18 22:42 77 16 30 05/28/18 21:01 66 17 30 05/28/18 20:00 30 05/28/18 20:00 97.7 70 18 130/69 (89) 100 97.7 05/28/18 20:00 78 05/28/18 20:00 Mechanical Ventilator 05/28/18 19:10 68 16 30 05/28/18 17:07 80 17 30 05/28/18 16:00 Mechanical Ventilator 05/28/18 16:00 30 05/28/18 16:00 98.1 73 18 148/77 (100) 100 98.1 05/28/18 16:00 73 05/28/18 15:20 72 16 30 05/28/18 13:15 62 16 30 05/28/18 12:00 66 05/28/18 12:00 Mechanical Ventilator 05/28/18 12:00 30 05/28/18 12:00 98.1 60 16 134/81 (98) 100 98.1 05/28/18 10:39 62 17 30 05/28/18 09:08 59 16 30 Intake and Output 05/28/18 05/29/18 19:00 07:00 Intake Total 345 ml 490 ml Output Total 525 ml 925 ml Balance -180 ml -435 ml Tube Feeding 245 ml 430 ml Other 100 ml 60 ml Output Urine Total 525 ml 500 ml Stool Total 425 ml Laboratory Tests 05/29/18 03:45: White Blood Count 11.8H, Red Blood Count 4.68L, Hemoglobin 12.7L, Hematocrit 40.2L, Mean Corpuscular Volume 86, Mean Corpuscular Hemoglobin 27.1, Mean Corpuscular Hemoglobin Concent 31.5L, Red Cell Distribution Width 15.8H, Platelet Count 327, Mean Platelet Volume 7.8, Neutrophils (%) (Auto) 74.3, Lymphocytes (%) (Auto) 16.4L, Monocytes (%) (Auto) 6.3, Eosinophils (%) (Auto) 2.1, Basophils (%) (Auto) 0.9, Sodium Level 134L, Potassium Level 3.9, Chloride Level 100, Carbon Dioxide Level 22, Anion Gap 12, Blood Urea Nitrogen 12, Creatinine 1.0, Estimat Glomerular Filtration Rate > 60, Glucose Level 115H, Calcium Level 10.2H, Phosphorus Level 2.5, Magnesium Level 2.2, Total Bilirubin 0.7, Aspartate Amino Transf (AST/SGOT) 30, Alanine Aminotransferase (ALT/SGPT) 54, Alkaline Phosphatase 141H, Total Protein 9.3H, Albumin 3.8, Globulin 5.5, Albumin/Globulin Ratio 0.7L, Vancomycin Level Trough 15.9H Height (Feet): 6 Weight (Pounds): 205 General Appearance: WD/WN, no apparent distress EENT: PERRL/EOMI Neck: non-tender, normal alignment Cardiovascular: normal peripheral pulses, normal rate Respiratory/Chest: lungs clear, normal breath sounds Edema: no edema noted Arm (L), no edema noted Arm (R), no edema noted Leg (L), no edema noted Leg (R), no edema noted Pedal (L), no edema noted Pedal (R), no edema noted Generalized De Kylah,Mir M.D. May 29, 2018 08:44
--- NOTE | 2018-05-29 10:12 | Pulmonolgy Critical Care Note ---
Critical Care - Asmt/Plan Problems: (1) Acute on chronic respiratory failure (2) Acute on chronic renal insufficiency (3) Severe sepsis (4) Vegetative state (5) Colostomy in place (6) Diabetes mellitus Respiratory: monitor respiratory rate, adjust FIO2, CXR Cardiac: continue to monitor HR/BP Renal: F/U I&O Infectious Disease: check cultures, continue antibiotics Gastrointestinal: continue feedings/current rate Endocrine: monitor blood sugar, check HgA1C Neurologic: PRN Ativan Affect: PRN ativan Prophylaxis: Protonix Notes Reviewed: cardio Discussed with: nurses, consultants, case technicianmanager registration - Objective Last 24 Hour Vital Signs Date Time Temp Pulse Resp B/P (MAP) Pulse Ox O2 Delivery O2 Flow Rate FiO2 05/29/18 08:56 78 16 30 05/29/18 08:00 30 05/29/18 08:00 Mechanical Ventilator 05/29/18 08:00 98.2 74 17 152/77 (102) 100 98.2 05/29/18 07:16 75 18 30 05/29/18 05:19 81 17 30 05/29/18 04:00 Mechanical Ventilator 05/29/18 04:00 30 05/29/18 04:00 97.5 77 17 143/70 (94) 99 97.5 05/29/18 04:00 80 05/29/18 02:51 79 17 30 05/29/18 01:15 86 18 30 05/29/18 00:00 97.9 75 16 125/72 (89) 99 97.9 05/29/18 00:00 Mechanical Ventilator 05/28/18 22:42 77 16 30 05/28/18 21:01 66 17 30 05/28/18 20:00 30 05/28/18 20:00 97.7 70 18 130/69 (89) 100 97.7 05/28/18 20:00 78 05/28/18 20:00 Mechanical Ventilator 05/28/18 19:10 68 16 30 05/28/18 17:07 80 17 30 05/28/18 16:00 Mechanical Ventilator 05/28/18 16:00 30 05/28/18 16:00 98.1 73 18 148/77 (100) 100 98.1 05/28/18 16:00 73 05/28/18 15:20 72 16 30 8/7/18 13:15 62 16 30 05/28/18 12:00 66 05/28/18 12:00 Mechanical Ventilator 05/28/18 12:00 30 05/28/18 12:00 98.1 60 16 134/81 (98) 100 98.1 05/28/18 10:39 62 17 30 Status: somnolent Condition: critical HEENT: atraumatic Neck: full ROM Lungs: clear Heart: HR/BP stable Abdomen: soft, active bowel sounds Extremities: no C/C/E, edema Accucheck: 141 Critical Care - Subjective ROS Limited/Unobtainable: No Condition: critical EKG Rhythm: Sinus Rhythm FI02: 30 Vent Support Breath Rate: 16 Vent Support Mode: AC Vent Tidal Volume: 600 Sputum Amount: Moderate PEEP: 5.0 PIP: 29 Tube Feeding Amount: 45 I&O: Intake and Output 05/28/18 05/29/18 19:00 07:00 Intake Total 345 ml 490 ml Output Total 525 ml 925 ml Balance -180 ml -435 ml Tube Feeding 245 ml 430 ml Other 100 ml 60 ml Output Urine Total 525 ml 500 ml Stool Total 425 ml Labs: Laboratory Tests Test 05/29/18 03:45 White Blood Count 11.8 K/UL (4.8-10.8) H Red Blood Count 4.68 M/UL (4.70-6.10) L Hemoglobin 12.7 G/DL (14.2-18.0) L Hematocrit 40.2 % (42.0-52.0) L Mean Corpuscular Volume 86 FL (80-99) Mean Corpuscular Hemoglobin 27.1 PG (27.0-31.0) Mean Corpuscular Hemoglobin Concent 31.5 G/DL (32.0-36.0) L Red Cell Distribution Width 15.8 % (11.6-14.8) H Platelet Count 327 K/UL (150-450) Mean Platelet Volume 7.8 FL (6.5-10.1) Neutrophils (%) (Auto) 74.3 % (45.0-75.0) Lymphocytes (%) (Auto) 16.4 % (20.0-45.0) L Monocytes (%) (Auto) 6.3 % (1.0-10.0) Eosinophils (%) (Auto) 2.1 % (0.0-3.0) Basophils (%) (Auto) 0.9 % (0.0-2.0) Sodium Level 134 MMOL/L (136-145) L Potassium Level 3.9 MMOL/L (3.5-5.1) Chloride Level 100 MMOL/L (98-107) Carbon Dioxide Level 22 MMOL/L (21-32) Anion Gap 12 mmol/L (5-15) Blood Urea Nitrogen 12 mg/dL (7-18) Creatinine 1.0 MG/DL (0.55-1.30) Estimat Glomerular Filtration Rate > 60 mL/min (>60) Glucose Level 115 MG/DL (74-106) H Calcium Level 10.2 MG/DL (8.5-10.1) H Phosphorus Level 2.5 MG/DL (2.5-4.9) Magnesium Level 2.2 MG/DL (1.8-2.4) Total Bilirubin 0.7 MG/DL (0.2-1.0) Aspartate Amino Transf (AST/SGOT) 30 U/L (15-37) Alanine Aminotransferase (ALT/SGPT) 54 U/L (12-78) Alkaline Phosphatase 141 U/L (46-116) H Total Protein 9.3 G/DL (6.4-8.2) H Albumin 3.8 G/DL (3.4-5.0) Globulin 5.5 g/dL Albumin/Globulin Ratio 0.7 (1.0-2.7) L Vancomycin Level Trough 15.9 ug/mL (5.0-12.0) H Nico Goetz MD May 29, 2018 10:12
--- NOTE | 2018-05-29 10:42 | GI Progress Note ---
Assessment/Plan Problems: (1) Parastomal hernia ICD Codes: K43.5 - Parastomal hernia without obstruction or gangrene SNOMED: 504933433 Qualifiers: Qualified Codes: K43.5 - Parastomal hernia without obstruction or gangrene (2) Stoma malfunction SNOMED: 877562378 (3) Colostomy in place ICD Codes: Z93.3 - Colostomy status SNOMED: 617944214, 903406946 (4) Vegetative state ICD Codes: R40.3 - Persistent vegetative state SNOMED: 04312246 (5) Diabetes mellitus ICD Codes: E11.9 - Type 2 diabetes mellitus without complications SNOMED: 40972326 (6) Acute on chronic respiratory failure ICD Codes: J96.20 - Acute and chronic respiratory failure, unspecified whether with hypoxia or hypercapnia SNOMED: 59861150 (7) Severe sepsis ICD Codes: A41.9 - Sepsis, unspecified organism; R65.20 - Severe sepsis without septic shock SNOMED: 90614166 Status: stable Status Narrative Discussed with Dr. Prater. Assessment/Plan prolapse stoma assessed >> no s/sx of infection. no obstruction. anemia work up reviewed >> iron deficiency G tube dependent hepatitis panel negative OB negative supportive care monitor H&H, prn transfusions venofer ppi GTFs per RD, adv to goal GT site care daily/prn abx bowel regime fu labs The patient was seen and examined at bedside and all new and available data was reviewed in the patients chart. I agree with the above findings, impression and plan. (Patient seen earlier today. Signature stamp does not reflect patient encounter time.). - Dae Prater MD Subjective Subjective limited Objective Last 24 Hour Vital Signs Date Time Temp Pulse Resp B/P (MAP) Pulse Ox O2 Delivery O2 Flow Rate FiO2 05/29/18 08:56 78 16 30 05/29/18 08:00 30 05/29/18 08:00 Mechanical Ventilator 05/29/18 08:00 70 05/29/18 08:00 98.2 74 17 152/77 (102) 100 98.2 05/29/18 07:16 75 18 30 05/29/18 05:19 81 17 30 05/29/18 04:00 Mechanical Ventilator 05/29/18 04:00 30 05/29/18 04:00 97.5 77 17 143/70 (94) 99 97.5 05/29/18 04:00 80 05/29/18 02:51 79 17 30 05/29/18 01:15 86 18 30 05/29/18 00:00 97.9 75 16 125/72 (89) 99 97.9 05/29/18 00:00 Mechanical Ventilator 05/28/18 22:42 77 16 30 05/28/18 21:01 66 17 30 05/28/18 20:00 30 05/28/18 20:00 97.7 70 18 130/69 (89) 100 97.7 05/28/18 20:00 78 05/28/18 20:00 Mechanical Ventilator 05/28/18 19:10 68 16 30 05/28/18 17:07 80 17 30 05/28/18 16:00 Mechanical Ventilator 05/28/18 16:00 30 05/28/18 16:00 98.1 73 18 148/77 (100) 100 98.1 05/28/18 16:00 73 05/28/18 15:20 72 16 30 05/28/18 13:15 62 16 30 05/28/18 12:00 66 05/28/18 12:00 Mechanical Ventilator 05/28/18 12:00 30 05/28/18 12:00 98.1 60 16 134/81 (98) 100 98.1 Intake and Output 05/28/18 05/29/18 19:00 07:00 Intake Total 345 ml 490 ml Output Total 525 ml 925 ml Balance -180 ml -435 ml Tube Feeding 245 ml 430 ml Other 100 ml 60 ml Output Urine Total 525 ml 500 ml Stool Total 425 ml Laboratory Tests Test 05/29/18 03:45 White Blood Count 11.8 K/UL (4.8-10.8) H Red Blood Count 4.68 M/UL (4.70-6.10) L Hemoglobin 12.7 G/DL (14.2-18.0) L Hematocrit 40.2 % (42.0-52.0) L Mean Corpuscular Volume 86 FL (80-99) Mean Corpuscular Hemoglobin 27.1 PG (27.0-31.0) Mean Corpuscular Hemoglobin Concent 31.5 G/DL (32.0-36.0) L Red Cell Distribution Width 15.8 % (11.6-14.8) H Platelet Count 327 K/UL (150-450) Mean Platelet Volume 7.8 FL (6.5-10.1) Neutrophils (%) (Auto) 74.3 % (45.0-75.0) Lymphocytes (%) (Auto) 16.4 % (20.0-45.0) L Monocytes (%) (Auto) 6.3 % (1.0-10.0) Eosinophils (%) (Auto) 2.1 % (0.0-3.0) Basophils (%) (Auto) 0.9 % (0.0-2.0) Sodium Level 134 MMOL/L (136-145) L Potassium Level 3.9 MMOL/L (3.5-5.1) Chloride Level 100 MMOL/L (98-107) Carbon Dioxide Level 22 MMOL/L (21-32) Anion Gap 12 mmol/L (5-15) Blood Urea Nitrogen 12 mg/dL (7-18) Creatinine 1.0 MG/DL (0.55-1.30) Estimat Glomerular Filtration Rate > 60 mL/min (>60) Glucose Level 115 MG/DL (74-106) H Calcium Level 10.2 MG/DL (8.5-10.1) H Phosphorus Level 2.5 MG/DL (2.5-4.9) Magnesium Level 2.2 MG/DL (1.8-2.4) Total Bilirubin 0.7 MG/DL (0.2-1.0) Aspartate Amino Transf (AST/SGOT) 30 U/L (15-37) Alanine Aminotransferase (ALT/SGPT) 54 U/L (12-78) Alkaline Phosphatase 141 U/L (46-116) H Total Protein 9.3 G/DL (6.4-8.2) H Albumin 3.8 G/DL (3.4-5.0) Globulin 5.5 g/dL Albumin/Globulin Ratio 0.7 (1.0-2.7) L Vancomycin Level Trough 15.9 ug/mL (5.0-12.0) H Height (Feet): 6 Weight (Pounds): 205 General Appearance: no apparent distress Cardiovascular: normal rate Respiratory/Chest: normal breath sounds, no respiratory distress, other - trach to vent Abdominal Exam: normal bowel sounds, non tender, soft, GT site Extremities: non-tender Boyd Emmanuel CAPTAIN WAITER May 29, 2018 10:42
--- NOTE | 2018-05-29 10:50 | Cardiology Progress Note ---
Assessment/Plan Status: stable Assessment/Plan Assessment: (1) Acute on chronic respiratory failure (2) Acute on chronic renal insufficiency (3) Severe sepsis (4) Vegetative state (5) Colostomy in place (6) Diabetes mellitus Plan: Continue antibiotics Echocardiogram reviewed- no endocarditis JOE for next week Patient afebrile, normal WBC otherwise Continue trach care and tube feeds Continue keppra for seizures Subjective Cardiovascular: Reports: no symptoms Respiratory: Reports: no symptoms Gastrointestinal/Abdominal: Reports: no symptoms Genitourinary: Reports: no symptoms Subjective Afebrile, vitals stable, Telemetry shows sinus rhythm. No acute events Ventilator settings: portex 7, AC 16, TV: 600, FiO2: 30%, PEEP: 5. GT is in place running glucerna 1.2 @ 65 ml/hr. No residual present. Colostomy bag in place. JOE was supposed to be done today but JOE scheduled for 06/03/18 at 1100, no other opening downstairs. Objective Last 24 Hour Vital Signs Date Time Temp Pulse Resp B/P (MAP) Pulse Ox O2 Delivery O2 Flow Rate FiO2 05/29/18 08:56 78 16 30 05/29/18 08:00 30 05/29/18 08:00 Mechanical Ventilator 05/29/18 08:00 70 05/29/18 08:00 98.2 74 17 152/77 (102) 100 98.2 05/29/18 07:16 75 18 30 05/29/18 05:19 81 17 30 05/29/18 04:00 Mechanical Ventilator 05/29/18 04:00 30 05/29/18 04:00 97.5 77 17 143/70 (94) 99 97.5 05/29/18 04:00 80 05/29/18 02:51 79 17 30 05/29/18 01:15 86 18 30 05/29/18 00:00 97.9 75 16 125/72 (89) 99 97.9 05/29/18 00:00 Mechanical Ventilator 05/28/18 22:42 77 16 30 05/28/18 21:01 66 17 30 05/28/18 20:00 30 05/28/18 20:00 97.7 70 18 130/69 (89) 100 97.7 05/28/18 20:00 78 05/28/18 20:00 Mechanical Ventilator 05/28/18 19:10 68 16 30 05/28/18 17:07 80 17 30 05/28/18 16:00 Mechanical Ventilator 05/28/18 16:00 30 05/28/18 16:00 98.1 73 18 148/77 (100) 100 98.1 05/28/18 16:00 73 05/28/18 15:20 72 16 30 05/28/18 13:15 62 16 30 05/28/18 12:00 66 05/28/18 12:00 Mechanical Ventilator 05/28/18 12:00 30 05/28/18 12:00 98.1 60 16 134/81 (98) 100 98.1 General Appearance: no apparent distress, on vent EENT: PERRL/EOMI, normal ENT inspection Neck: non-tender, normal alignment, supple, normal inspection, no JVD Rhythm: NSR Cardiovascular: normal peripheral pulses, normal rate, regular rhythm Respiratory/Chest: chest wall non-tender, lungs clear Abdomen: normal bowel sounds, non tender Extremities: normal range of motion, non-tender Neurologic: shop tech II-XII grossly normal, no motor/sensory deficits Intake and Output 05/28/18 05/29/18 19:00 07:00 Intake Total 345 ml 490 ml Output Total 525 ml 925 ml Balance -180 ml -435 ml Tube Feeding 245 ml 430 ml Other 100 ml 60 ml Output Urine Total 525 ml 500 ml Stool Total 425 ml Laboratory Tests Test 05/29/18 03:45 White Blood Count 11.8 K/UL (4.8-10.8) H Red Blood Count 4.68 M/UL (4.70-6.10) L Hemoglobin 12.7 G/DL (14.2-18.0) L Hematocrit 40.2 % (42.0-52.0) L Mean Corpuscular Volume 86 FL (80-99) Mean Corpuscular Hemoglobin 27.1 PG (27.0-31.0) Mean Corpuscular Hemoglobin Concent 31.5 G/DL (32.0-36.0) L Red Cell Distribution Width 15.8 % (11.6-14.8) H Platelet Count 327 K/UL (150-450) Mean Platelet Volume 7.8 FL (6.5-10.1) Neutrophils (%) (Auto) 74.3 % (45.0-75.0) Lymphocytes (%) (Auto) 16.4 % (20.0-45.0) L Monocytes (%) (Auto) 6.3 % (1.0-10.0) Eosinophils (%) (Auto) 2.1 % (0.0-3.0) Basophils (%) (Auto) 0.9 % (0.0-2.0) Sodium Level 134 MMOL/L (136-145) L Potassium Level 3.9 MMOL/L (3.5-5.1) Chloride Level 100 MMOL/L (98-107) Carbon Dioxide Level 22 MMOL/L (21-32) Anion Gap 12 mmol/L (5-15) Blood Urea Nitrogen 12 mg/dL (7-18) Creatinine 1.0 MG/DL (0.55-1.30) Estimat Glomerular Filtration Rate > 60 mL/min (>60) Glucose Level 115 MG/DL (74-106) H Calcium Level 10.2 MG/DL (8.5-10.1) H Phosphorus Level 2.5 MG/DL (2.5-4.9) Magnesium Level 2.2 MG/DL (1.8-2.4) Total Bilirubin 0.7 MG/DL (0.2-1.0) Aspartate Amino Transf (AST/SGOT) 30 U/L (15-37) Alanine Aminotransferase (ALT/SGPT) 54 U/L (12-78) Alkaline Phosphatase 141 U/L (46-116) H Total Protein 9.3 G/DL (6.4-8.2) H Albumin 3.8 G/DL (3.4-5.0) Globulin 5.5 g/dL Albumin/Globulin Ratio 0.7 (1.0-2.7) L Vancomycin Level Trough 15.9 ug/mL (5.0-12.0) H Kali Owens M.D. May 29, 2018 10:49
--- NOTE | 2018-05-29 11:29 | Infectious Diseases Prog Note ---
Assessment/Plan Assessment/Plan Sepsis, resolving- 2ry to UTI and Bacteremia Blood cultures postive 01/23 bottles with GPC Unclear source will need to R/O Endocarditis Possible PNA initially -u/a wbc 40-60, nit neg, leuk +2; ucx >100k E. aerogenes (S cefepime, cipro/ levo; R Zosyn) -BCX 01/23 E. aerogenes, prob Amp C (S cefepime, cipro/levo; R Zosyn), P. mirabilis ESBL (S Zosyn, Ertapenem); repeta 05/16 10/25 CoNS (suspect contaminant) , 05/18 Staph f/u final results if CoNS may need TTE and IE work up. -CXR 05/17: Increased left pleural effusion, over 3 days. Overall decreased interstitial congestion. Right infrahilar atelectasis -CXR: Cardiomegaly. Mild interstitial congestion. Suspect small bilateral pleural effusions -CT abd/p: Right lower quadrant double barrel colostomy, as described. Small peristomal hernia contains bowel loops without evidence of obstruction or strangulation. Left renal staghorn calculus. Bilateral intrarenal calyceal calculi. Borderline hydronephrosis on the right without evidence of downstream obstructive lesion. May indicate mild ureteral pelvic junction obstruction. Somewhat atrophic left kidney. Inspissated contrast ball within the distal sigmoid colon. Gastrostomy in good position. Nonspecific bilateral perinephric fat stranding, could indicate pyelonephritis or could be chronic. Newberry catheter in place. Apparent bladder wall thickening, possibly an artifact of under distention but cystitis is not excludable, particularly in view of mild perivesical fat stranding. Bilateral pulmonary parenchymal atelectasis and consolidation -Blood Cx from PICC CoNS 2/2 bottles Peripheral Neg- (May be contaminant but will repeat blood Cx given new leukocytosis if positive will need ECHO. - Blood Cx 05/20/18 - GPC - Will need TTE for IE work up and the PICC removed. PICC line infection/colonization - TTE negative. Blood cultures only positive from PICC. Not positive from Peripheral - Will repeat blood cultures x 1 to confirm clearance after PICC replaced. Los suspicion for IE. - PICC replace 05/22/18 Fever/Leukocytosis; Resolved - i recurs Re-evaluate lines, Diarrhea? C. dif? DIVYA, improving Lactic acidosis, resolved chronic resp failure trach/vent dependant BPH GERD HTN DM2 seizure disorder colostomy s/p GT constipation VRE and MRSA colonized Plan: - Continue empiric IV Vancomycin #09/08 for bacteremia/line infection - Abx end date 06/05/18 if JOE negative - Recommend Transesophageal ECHO to r/o IE -Continue Ertapenem #/ for Amp-C Enterobacter and ESBL P.mirabilis bacteremia ; will treat for 14 days - End date 05/30/18 -05/17 SP Zosyn #4 - Monitor CBC/CMP, temperatures - F/U JOE - Pulmonary care Thank you for this consultation. Will continue to follow along with you. Subjective Allergies: Coded Allergies: AZTREONAM (Verified Allergy, Unknown, 05/13/18) Subjective No acute changes On Vent. 30% O2 sating well Afebrile JOE pending Objective Vital Signs Last 24 Hour Vital Signs Date Time Temp Pulse Resp B/P (MAP) Pulse Ox O2 Delivery O2 Flow Rate FiO2 05/29/18 08:56 78 16 30 05/29/18 08:00 30 05/29/18 08:00 Mechanical Ventilator 05/29/18 08:00 70 05/29/18 08:00 98.2 74 17 152/77 (102) 100 98.2 05/29/18 07:16 75 18 30 05/29/18 05:19 81 17 30 05/29/18 04:00 Mechanical Ventilator 05/29/18 04:00 30 05/29/18 04:00 97.5 77 17 143/70 (94) 99 97.5 05/29/18 04:00 80 05/29/18 02:51 79 17 30 05/29/18 01:15 86 18 30 05/29/18 00:00 97.9 75 16 125/72 (89) 99 97.9 05/29/18 00:00 Mechanical Ventilator 05/28/18 22:42 77 16 30 05/28/18 21:01 66 17 30 05/28/18 20:00 30 05/28/18 20:00 97.7 70 18 130/69 (89) 100 97.7 05/28/18 20:00 78 05/28/18 20:00 Mechanical Ventilator 05/28/18 19:10 68 16 30 05/28/18 17:07 80 17 30 8/7/18 16:00 Mechanical Ventilator 05/28/18 16:00 30 05/28/18 16:00 98.1 73 18 148/77 (100) 100 98.1 05/28/18 16:00 73 05/28/18 15:20 72 16 30 05/28/18 13:15 62 16 30 05/28/18 12:00 66 05/28/18 12:00 Mechanical Ventilator 05/28/18 12:00 30 05/28/18 12:00 98.1 60 16 134/81 (98) 100 98.1 Height (Feet): 6 Weight (Pounds): 205 Objective GENERAL: No overt distress. On vent 30% O2, Eyes and mouth HEENT: NCAT, DMM, Tracheostomy PULM: Mild crackles in bases B/L, No wheezing CARDIOVASCULAR: RRR, S1 and S2. No rubs or gallops. ABDOMEN: Obese and nondistended. +BS, The G-tube and stoma noted. EXTREMITIES: No edema. 1+ pedal pulses. Laboratory Tests Test 05/29/18 03:45 White Blood Count 11.8 K/UL (4.8-10.8) H Red Blood Count 4.68 M/UL (4.70-6.10) L Hemoglobin 12.7 G/DL (14.2-18.0) L Hematocrit 40.2 % (42.0-52.0) L Mean Corpuscular Volume 86 FL (80-99) Mean Corpuscular Hemoglobin 27.1 PG (27.0-31.0) Mean Corpuscular Hemoglobin Concent 31.5 G/DL (32.0-36.0) L Red Cell Distribution Width 15.8 % (11.6-14.8) H Platelet Count 327 K/UL (150-450) Mean Platelet Volume 7.8 FL (6.5-10.1) Neutrophils (%) (Auto) 74.3 % (45.0-75.0) Lymphocytes (%) (Auto) 16.4 % (20.0-45.0) L Monocytes (%) (Auto) 6.3 % (1.0-10.0) Eosinophils (%) (Auto) 2.1 % (0.0-3.0) Basophils (%) (Auto) 0.9 % (0.0-2.0) Sodium Level 134 MMOL/L (136-145) L Potassium Level 3.9 MMOL/L (3.5-5.1) Chloride Level 100 MMOL/L (98-107) Carbon Dioxide Level 22 MMOL/L (21-32) Anion Gap 12 mmol/L (5-15) Blood Urea Nitrogen 12 mg/dL (7-18) Creatinine 1.0 MG/DL (0.55-1.30) Estimat Glomerular Filtration Rate > 60 mL/min (>60) Glucose Level 115 MG/DL (74-106) H Calcium Level 10.2 MG/DL (8.5-10.1) H Phosphorus Level 2.5 MG/DL (2.5-4.9) Magnesium Level 2.2 MG/DL (1.8-2.4) Total Bilirubin 0.7 MG/DL (0.2-1.0) Aspartate Amino Transf (AST/SGOT) 30 U/L (15-37) Alanine Aminotransferase (ALT/SGPT) 54 U/L (12-78) Alkaline Phosphatase 141 U/L (46-116) H Total Protein 9.3 G/DL (6.4-8.2) H Albumin 3.8 G/DL (3.4-5.0) Globulin 5.5 g/dL Albumin/Globulin Ratio 0.7 (1.0-2.7) L Vancomycin Level Trough 15.9 ug/mL (5.0-12.0) H Current Medications Medications (Trade) Dose Ordered Sig/Va Route PRN Reason Start Time Stop Time Status Last Admin Dose Admin Acetaminophen (Tylenol) 650 mg Q4H PRN ORAL FEVER 05/16/18 14:00 06/13/18 09:59 05/27/18 21:04 Baclofen (Lioresal) 10 mg EVERY 8 HOURS GT 05/20/18 14:00 06/13/18 12:59 05/29/18 05:37 Chlorhexidine Gluconate (Rebecca-Hex 2%) 1 applic DAILY@1999 TOPIC 05/16/18 20:00 06/13/18 19:59 05/28/18 20:04 Dextrose (Dextrose 50%) 25 ml STAT PRN IV Hypoglycemia 05/17/18 08:45 06/14/18 08:44 Dextrose (Dextrose 50%) 50 ml STAT PRN IV Hypoglycemia 05/17/18 08:45 06/14/18 08:44 Ertapenem 1 gm/ Sodium Chloride 55 ml @ 110 mls/hr Q24H IVPB 05/17/18 15:00 05/31/18 14:59 05/28/18 14:34 Heparin Sodium (Porcine) (Heparin 5000 units/ml) 5,000 units EVERY 12 HOURS SUBQ 05/16/18 21:00 06/13/18 20:59 05/29/18 09:17 Insulin Aspart (NovoLOG) Q6HR SUBQ 05/16/18 18:00 06/14/18 11:29 05/29/18 06:21 Lansoprazole (Prevacid) 30 mg DAILY GT 05/17/18 09:00 06/15/18 08:59 05/29/18 09:16 Levetiracetam (Keppra) 1,000 mg Q8HR GT 05/16/18 14:00 06/13/18 12:59 05/29/18 05:37 Ondansetron HCl (Zofran) 4 mg Q6H PRN IVP Nausea & Vomiting 05/16/18 16:00 06/13/18 09:59 Polyethylene Glycol (Miralax) 17 gm BEDTIME GT 05/20/18 21:00 06/14/18 20:59 05/28/18 21:10 Vancomycin HCl (Vanco rx to dose) 1 ea DAILY PRN MISC PER RX PROTOCOL 05/18/18 13:15 06/17/18 13:14 Vancomycin HCl/ Dextrose 250 ml @ 125 mls/hr Q18H IVPB 05/29/18 21:00 06/01/18 23:59 Kali Richter M.D. May 29, 2018 11:29
[2018-05-29 12:00] VITALS: BP 127/78
[2018-05-29] MEDS: Ertapenem 1 GM in NS 55 ML IVPB SCH (14:56)
[2018-05-29 16:00] VITALS: BP 124/79
--- NOTE | 2018-05-29 17:45 | Progress Note ---
DATE: 05/28/2018 NOTE: POOR AUDIO SUBJECTIVE: The patient is awake, alert, afebrile, and hemodynamically stable. The patient has not been seen during all his admissions. Medical record has been reviewed in regards laboratory test and imaging studies. The patient was scheduled to undergo transesophageal echo, but did not take place. PHYSICAL EXAMINATION: VITAL SIGNS: Blood pressure 148/77, pulse 73, respirations 18, and temperature of 98.1. HEENT: Eyes were normal. Mucous membrane was moist and intact. NECK: Supple. No JVD without lymph nodes. Tracheostomy site is clean. There is hyperventilation. LUNGS: Clear without rhonchi, rales, or wheezing. Secretions are small, thin, and whitish. HEART: Normal sounds with regular beats. There is no tachycardia at rest. ABDOMEN: Soft and nontender with normal bowel sounds. Gastrostomy site is clean. EXTREMITIES: Warm without cyanosis, clubbing, or edema. LABORATORY AND DIAGNOSTIC DATA: Hemoglobin is 12.9, hematocrit was 40.5 with MCV of 86, WBC of 9.7, and platelets are 284,000. His BUN and creatinine are 13 and 0.9, respectively. His sodium is 134, potassium 4.2, chloride 101, and CO2 was 23. His phosphorus is 2.4. Magnesium is 2.1. SGOT and SGPT are normal. His albumin is 3.8 and total protein is 9.4. Chest x-ray was done on 05/17/2018 atelectasis. A 2D echo, which was technically difficult ejection fraction of 55 to 60. IMPRESSION AND PLAN: The patient is ready to be discharged facility from which he came from. the available bed. Discharge is pending tomorrow to a different facility. Sariah Bhat M.D. DR: KETAN JOB#: [id number] CC:
[2018-05-29 20:00] VITALS: BP 135/79
[2018-05-29] MEDS: Vancomycin 1.5 GM/D5W 250ML IVPB SCH (22:01)
[2018-05-29] MEDS: Miralax 17gm pkt GT SCH (22:02)
[2018-05-29] MEDS: Dyna-Hex 2% Top Sol 2oz TOPIC SCH (22:02)
[2018-05-30] VITALS: BP 139/79
--- NOTE | 2018-05-30 01:00 | Progress Note ---
DATE: 05/29/2018 SUBJECTIVE: The patient is afebrile and hemodynamically stable. PHYSICAL EXAMINATION: VITAL SIGNS: Blood pressure 135/79, his pulse is 65, respirations were 18, and temperature was 98.1. HEENT: Eyes were normal. ENT, mucous membranes were moist and intact. NECK: Supple with no JVD without lymph nodes. Tracheostomy site is clean. LUNGS: Clear without rhonchi, rales, or wheezing. Secretions are small, thin, and whitish. HEART: Normal sounds with regular beats. ABDOMEN: Soft and nontender with normal bowel sounds. EXTREMITIES: Warm without cyanosis, clubbing, or edema. LABORATORY DATA: Hemoglobin is 12.7, hematocrit of 40.2 with MCV of 86, WBC 11.8, and platelets of 327,000. His BUN and creatinine is 12 and 1.0 respectively. Sodium is 134, potassium 3.9, chloride 100, and CO2 is 22. His calcium was 10.2. SGOT, SGPT, and alkaline phosphatase are normal. Albumin was 3.8 and total protein is 8.3. IMPRESSION AND PLAN: The patient appears in stable condition. He is afebrile and hemodynamically stable with minimal leukocytosis. Repeat laboratory tests will be done in the morning. Sariah Bhat M.D. DR: KETAN JOB#: [id number] CC:
[2018-05-30 04:00] VITALS: BP 132/72
[2018-05-30 05:17] LABS: BASOPHILS % (AUTO) 2.7 % (0.0-2.0); EOSINOPHILS % (AUTO) 4.8 % (0.0-3.0); HEMATOCRIT 41.3 % (42.0-52.0); LYMPHOCYTES % (AUTO) 20.4 % (20.0-45.0); MEAN CORPUSCULAR VOLUME 86 FL (80-99); MONOCYTES % (AUTO) 10.4 % (1.0-10.0); NEUTROPHILS % (AUTO) 61.9 % (45.0-75.0); PLATELET COUNT 316 K/UL (150-450); RED BLOOD COUNT 4.81 M/UL (4.70-6.10); RED CELL DISTRIBUTION WIDTH 15.6 % (11.6-14.8); WHITE BLOOD COUNT 8.1 K/UL (4.8-10.8)
[2018-05-30] MEDS: levETIRAcetam 500mg/5ml Liquid GT SCH ×3 (06:40→21:51)
[2018-05-30] MEDS: NovoLOG Insulin Flexpen SUBQ SCH ×4 (06:43→23:40)
[2018-05-30 06:47] LABS: ALANINE AMINOTRANSFERASE 51 U/L (12-78); ALBUMIN 3.7 G/DL (3.4-5.0); ALBUMIN/GLOBULIN RATIO 0.7 (1.0-2.7); ALKALINE PHOSPHATASE 139 U/L (46-116); ANION GAP 13 mmol/L (5-15); ASPARTATE AMINO TRANSFERASE 24 U/L (15-37); BILIRUBIN,TOTAL 0.5 MG/DL (0.2-1.0); BLOOD UREA NITROGEN 12 mg/dL (7-18); CALCIUM 10.3 MG/DL (8.5-10.1); CARBON DIOXIDE 21 MMOL/L (21-32); CHLORIDE 100 MMOL/L (98-107); CREATININE 0.9 MG/DL (0.55-1.30); SODIUM 134 MMOL/L (136-145)
[2018-05-30 08:00] VITALS: BP 122/82
--- NOTE | 2018-05-30 08:34 | Nephrology Progress Note ---
Assessment/Plan Assessment/Plan 1. DIVYA- resolved 2. Sepsis- on Abx. 3. Chronic Resp FL- trached on vent - Per PULM mgmt 4. Hyponatremia - Na stable at 134. No changes today 5. SZ- Keppra -sodium 133-135 6. Hypophos- corrected Subjective Date patient seen: May 30, 2018 Time patient seen: 08:32 ROS Limited/Unobtainable: Yes Allergies: Coded Allergies: AZTREONAM (Verified Allergy, Unknown, 05/13/18) Subjective Patient trached/vent. Objective Last 24 Hour Vital Signs Date Time Temp Pulse Resp B/P (MAP) Pulse Ox O2 Delivery O2 Flow Rate FiO2 05/30/18 08:16 68 05/30/18 08:00 98.2 70 16 122/82 (95) 99 98.2 05/30/18 08:00 30 05/30/18 08:00 Mechanical Ventilator 05/30/18 04:38 66 16 30 05/30/18 04:00 98.4 76 19 132/72 (92) 99 98.4 05/30/18 04:00 Mechanical Ventilator 05/30/18 04:00 67 05/30/18 04:00 30 05/30/18 03:21 70 18 30 05/30/18 00:49 68 16 30 05/30/18 00:00 30 05/30/18 00:00 73 05/30/18 00:00 98.6 79 20 139/79 (99) 100 98.6 05/30/18 00:00 Mechanical Ventilator 05/29/18 22:53 72 17 30 05/29/18 20:53 80 19 30 05/29/18 20:00 30 05/29/18 20:00 Mechanical Ventilator 05/29/18 20:00 98.1 65 18 135/79 (97) 100 98.1 05/29/18 19:40 71 05/29/18 18:45 68 18 30 05/29/18 17:12 84 18 30 05/29/18 16:00 98.2 74 16 124/79 (94) 100 98.2 05/29/18 16:00 Mechanical Ventilator 05/29/18 16:00 30 05/29/18 16:00 74 05/29/18 14:38 81 18 30 05/29/18 12:53 79 18 30 05/29/18 12:00 30 05/29/18 12:00 98.1 76 18 127/78 (94) 96 98.1 05/29/18 12:00 Mechanical Ventilator 05/29/18 11:59 83 05/29/18 10:51 77 19 30 05/29/18 08:56 78 16 30 Intake and Output 05/29/18 05/30/18 19:00 07:00 Intake Total 645 ml 710 ml Output Total 900 ml 650 ml Balance -255 ml 60 ml Free Water 150 ml 130 ml IV Total 250 ml Tube Feeding 495 ml 330 ml Output Urine Total 550 ml 450 ml Stool Total 350 ml 200 ml Laboratory Tests 05/30/18 04:39: White Blood Count 8.1, Red Blood Count 4.81, Hemoglobin 13.0L, Hematocrit 41.3L , Mean Corpuscular Volume 86, Mean Corpuscular Hemoglobin 27.1, Mean Corpuscular Hemoglobin Concent 31.5L, Red Cell Distribution Width 15.6H, Platelet Count 316, Mean Platelet Volume 7.8, Neutrophils (%) (Auto) 61.9, Lymphocytes (%) (Auto) 20.4, Monocytes (%) (Auto) 10.4H, Eosinophils (%) (Auto) 4.8H, Basophils (%) (Auto) 2.7H, Sodium Level 134L, Potassium Level 4.0, Chloride Level 100, Carbon Dioxide Level 21, Anion Gap 13, Blood Urea Nitrogen 12, Creatinine 0.9, Estimat Glomerular Filtration Rate > 60, Glucose Level 108H , Calcium Level 10.3H, Total Bilirubin 0.5, Aspartate Amino Transf (AST/SGOT) 24 , Alanine Aminotransferase (ALT/SGPT) 51, Alkaline Phosphatase 139H, Pro-B-Type Natriuretic Peptide 120, Total Protein 9.3H, Albumin 3.7, Globulin 5.6, Albumin/ Globulin Ratio 0.7L Height (Feet): 6 Weight (Pounds): 203 General Appearance: WD/WN, no apparent distress EENT: PERRL/EOMI, normal ENT inspection Neck: normal alignment, supple Cardiovascular: normal rate, regular rhythm Respiratory/Chest: lungs clear, rhonchi - bilaterally Abdomen: non tender, soft Edema: no edema noted Arm (L), no edema noted Arm (R), no edema noted Leg (L), no edema noted Leg (R), no edema noted Pedal (L), no edema noted Pedal (R), no edema noted Generalized Mir Gann M.D. May 30, 2018 08:34
--- NOTE | 2018-05-30 09:07 | Infectious Diseases Prog Note ---
Assessment/Plan Assessment/Plan Sepsis, resolving- 2ry to UTI and Bacteremia Blood cultures postive 01/23 bottles with GPC Unclear source will need to R/O Endocarditis Possible PNA initially -u/a wbc 40-60, nit neg, leuk +2; ucx >100k E. aerogenes (S cefepime, cipro/ levo; R Zosyn) -BCX 01/23 E. aerogenes, prob Amp C (S cefepime, cipro/levo; R Zosyn), P. mirabilis ESBL (S Zosyn, Ertapenem); repeta 05/16 10/25 CoNS (suspect contaminant) , 05/18 Staph f/u final results if CoNS may need TTE and IE work up. -CXR 05/17: Increased left pleural effusion, over 3 days. Overall decreased interstitial congestion. Right infrahilar atelectasis -CXR: Cardiomegaly. Mild interstitial congestion. Suspect small bilateral pleural effusions -CT abd/p: Right lower quadrant double barrel colostomy, as described. Small peristomal hernia contains bowel loops without evidence of obstruction or strangulation. Left renal staghorn calculus. Bilateral intrarenal calyceal calculi. Borderline hydronephrosis on the right without evidence of downstream obstructive lesion. May indicate mild ureteral pelvic junction obstruction. Somewhat atrophic left kidney. Inspissated contrast ball within the distal sigmoid colon. Gastrostomy in good position. Nonspecific bilateral perinephric fat stranding, could indicate pyelonephritis or could be chronic. Newberry catheter in place. Apparent bladder wall thickening, possibly an artifact of under distention but cystitis is not excludable, particularly in view of mild perivesical fat stranding. Bilateral pulmonary parenchymal atelectasis and consolidation -Blood Cx from PICC CoNS 2/2 bottles Peripheral Neg- (May be contaminant but will repeat blood Cx given new leukocytosis if positive will need ECHO. - Blood Cx 05/20/18 - GPC - Will need TTE for IE work up and the PICC removed. PICC line infection/colonization - TTE negative. Blood cultures only positive from PICC. Not positive from Peripheral - Will repeat blood cultures x 1 to confirm clearance after PICC replaced. Los suspicion for IE. - PICC replace 05/22/18 Fever/Leukocytosis; Resolved - i recurs Re-evaluate lines, Diarrhea? C. dif? DIVYA, improving Lactic acidosis, resolved chronic resp failure trach/vent dependant BPH GERD HTN DM2 seizure disorder colostomy s/p GT constipation VRE and MRSA colonized Plan: - Continue empiric IV Vancomycin #10/08 for bacteremia/line infection - Abx end date 06/05/18 if JOE negative - Recommend Transesophageal ECHO to r/o IE -Last day of Ertapenem #14/ for Amp-C Enterobacter and ESBL P.mirabilis bacteremia ; will treat for 14 days - End date 05/30/18 -05/17 SP Zosyn #4 - Monitor CBC/CMP, temperatures - F/U JOE - Pulmonary care Thank you for this consultation. Will continue to follow along with you. Subjective Allergies: Coded Allergies: AZTREONAM (Verified Allergy, Unknown, 05/13/18) Subjective No acute changes On Vent still and stable at 30% O2 sating well Afebrile Objective Vital Signs Last 24 Hour Vital Signs Date Time Temp Pulse Resp B/P (MAP) Pulse Ox O2 Delivery O2 Flow Rate FiO2 05/30/18 08:16 68 05/30/18 08:00 98.2 70 16 122/82 (95) 99 98.2 05/30/18 08:00 30 05/30/18 08:00 Mechanical Ventilator 05/30/18 06:56 72 16 30 05/30/18 04:38 66 16 30 05/30/18 04:00 98.4 76 19 132/72 (92) 99 98.4 05/30/18 04:00 Mechanical Ventilator 05/30/18 04:00 67 05/30/18 04:00 30 05/30/18 03:21 70 18 30 05/30/18 00:49 68 16 30 05/30/18 00:00 30 05/30/18 00:00 73 05/30/18 00:00 98.6 79 20 139/79 (99) 100 98.6 05/30/18 00:00 Mechanical Ventilator 05/29/18 22:53 72 17 30 05/29/18 20:53 80 19 30 05/29/18 20:00 30 05/29/18 20:00 Mechanical Ventilator 05/29/18 20:00 98.1 65 18 135/79 (97) 100 98.1 05/29/18 19:40 71 8/8/18 18:45 68 18 30 05/29/18 17:12 84 18 30 05/29/18 16:00 98.2 74 16 124/79 (94) 100 98.2 05/29/18 16:00 Mechanical Ventilator 05/29/18 16:00 30 05/29/18 16:00 74 05/29/18 14:38 81 18 30 05/29/18 12:53 79 18 30 05/29/18 12:00 30 05/29/18 12:00 98.1 76 18 127/78 (94) 96 98.1 05/29/18 12:00 Mechanical Ventilator 05/29/18 11:59 83 05/29/18 10:51 77 19 30 Height (Feet): 6 Weight (Pounds): 203 Objective GENERAL: No overt distress. On vent 30% O2 HEENT: NCAT, DMM, Tracheostomy (C/D/I) PULM: Mild crackles in bases B/L, No wheezing CARDIOVASCULAR: RRR, S1 and S2. No rubs or gallops. ABDOMEN: Obese and nondistended. +BS, The G-tube and stoma noted. EXTREMITIES: No edema. 1+ pedal pulses. Laboratory Tests Test 05/30/18 04:39 White Blood Count 8.1 K/UL (4.8-10.8) Red Blood Count 4.81 M/UL (4.70-6.10) Hemoglobin 13.0 G/DL (14.2-18.0) L Hematocrit 41.3 % (42.0-52.0) L Mean Corpuscular Volume 86 FL (80-99) Mean Corpuscular Hemoglobin 27.1 PG (27.0-31.0) Mean Corpuscular Hemoglobin Concent 31.5 G/DL (32.0-36.0) L Red Cell Distribution Width 15.6 % (11.6-14.8) H Platelet Count 316 K/UL (150-450) Mean Platelet Volume 7.8 FL (6.5-10.1) Neutrophils (%) (Auto) 61.9 % (45.0-75.0) Lymphocytes (%) (Auto) 20.4 % (20.0-45.0) Monocytes (%) (Auto) 10.4 % (1.0-10.0) H Eosinophils (%) (Auto) 4.8 % (0.0-3.0) H Basophils (%) (Auto) 2.7 % (0.0-2.0) H Sodium Level 134 MMOL/L (136-145) L Potassium Level 4.0 MMOL/L (3.5-5.1) Chloride Level 100 MMOL/L (98-107) Carbon Dioxide Level 21 MMOL/L (21-32) Anion Gap 13 mmol/L (5-15) Blood Urea Nitrogen 12 mg/dL (7-18) Creatinine 0.9 MG/DL (0.55-1.30) Estimat Glomerular Filtration Rate > 60 mL/min (>60) Glucose Level 108 MG/DL (74-106) H Calcium Level 10.3 MG/DL (8.5-10.1) H Total Bilirubin 0.5 MG/DL (0.2-1.0) Aspartate Amino Transf (AST/SGOT) 24 U/L (15-37) Alanine Aminotransferase (ALT/SGPT) 51 U/L (12-78) Alkaline Phosphatase 139 U/L (46-116) H Pro-B-Type Natriuretic Peptide 120 pg/mL (0-125) Total Protein 9.3 G/DL (6.4-8.2) H Albumin 3.7 G/DL (3.4-5.0) Globulin 5.6 g/dL Albumin/Globulin Ratio 0.7 (1.0-2.7) L Current Medications Medications (Trade) Dose Ordered Sig/Va Route PRN Reason Start Time Stop Time Status Last Admin Dose Admin Acetaminophen (Tylenol) 650 mg Q4H PRN ORAL FEVER 05/16/18 14:00 06/13/18 09:59 05/27/18 21:04 Baclofen (Lioresal) 10 mg EVERY 8 HOURS GT 05/20/18 14:00 06/13/18 12:59 05/30/18 06:40 Chlorhexidine Gluconate (Rebecca-Hex 2%) 1 applic DAILY@1999 TOPIC 05/16/18 20:00 06/13/18 19:59 05/29/18 22:02 Dextrose (Dextrose 50%) 25 ml STAT PRN IV Hypoglycemia 05/17/18 08:45 06/14/18 08:44 Dextrose (Dextrose 50%) 50 ml STAT PRN IV Hypoglycemia 05/17/18 08:45 06/14/18 08:44 Ertapenem 1 gm/ Sodium Chloride 55 ml @ 110 mls/hr Q24H IVPB 05/17/18 15:00 05/31/18 14:59 05/29/18 14:56 Heparin Sodium (Porcine) (Heparin 5000 units/ml) 5,000 units EVERY 12 HOURS SUBQ 05/16/18 21:00 06/13/18 20:59 05/29/18 22:01 Insulin Aspart (NovoLOG) Q6HR SUBQ 05/16/18 18:00 06/14/18 11:29 05/30/18 06:43 Lansoprazole (Prevacid) 30 mg DAILY GT 05/17/18 09:00 06/15/18 08:59 05/29/18 09:16 Levetiracetam (Keppra) 1,000 mg Q8HR GT 05/16/18 14:00 06/13/18 12:59 05/30/18 06:40 Ondansetron HCl (Zofran) 4 mg Q6H PRN IVP Nausea & Vomiting 05/16/18 16:00 06/13/18 09:59 Polyethylene Glycol (Miralax) 17 gm BEDTIME GT 05/20/18 21:00 06/14/18 20:59 05/29/18 22:02 Vancomycin HCl (Vanco rx to dose) 1 ea DAILY PRN MISC PER RX PROTOCOL 05/18/18 13:15 06/17/18 13:14 Vancomycin HCl/ Dextrose 250 ml @ 125 mls/hr Q18H IVPB 05/29/18 21:00 06/01/18 23:59 05/29/18 22:01 Kali Richter M.D. May 30, 2018 09:07
[2018-05-30] MEDS: Heparin 5000 units/ml inj SUBQ SCH ×2 (09:32→20:41)
--- NOTE | 2018-05-30 10:06 | General Progress Note ---
Assessment/Plan Status: unchanged Assessment/Plan # Leukocytosis - Sepsis with elevated temperature of 103 degrees Fahrenheit. Had uti v bacteremia (CoNS) on abx, had improved --> Pt on antibiotics, has received a dose of Zosyn and currently is on vancomycin q.12 h. now on cefepime --> Appreciate Infectious Disease recs --> 2D echo per ID performed on 05/22: No discrete vegetations seen, however SBE may not be excluded by transthoracic 2-D echo. --> 05/30: WBC of 8.1, wnl # Anemia of chronic disease. No hemolysis, peripheral smear reviewed, ferritin was elevated. --> Continue to closely monitor --> Hgb goal >7 --> 05/30: Hgb 13.0 # Acute kidney injury. --> Currently on IV fluids, IV bolus given to see if the patient responds along with IV pressor as needed. --> Closely monitor with Nephrology team. # Septic shock, use antibiotic per ID services. --> potential uti, on abx and bacteremia # Respiratory failure, status post tracheostomy, on mechanical ventilation per Dr. Goetz # Hypercalcemia. Monitor PTH and calcium level. --> 05/28: Elevated at 10.0, currently borderline The time the note was entered does not necessarily correspond to the time the patient was seen. Subjective Date patient seen: May 30, 2018 ROS Limited/Unobtainable: Yes Hematologic/Lymphatic: Reports: anemia Allergies: Coded Allergies: AZTREONAM (Verified Allergy, Unknown, 05/13/18) All Systems: reviewed and negative except above Subjective Pt remains on vent. No acute events. H/H stable. Vitals are stable. Objective Last 24 Hour Vital Signs Date Time Temp Pulse Resp B/P (MAP) Pulse Ox O2 Delivery O2 Flow Rate FiO2 05/30/18 08:57 69 16 30 05/30/18 08:16 68 05/30/18 08:00 98.2 70 16 122/82 (95) 99 98.2 05/30/18 08:00 30 05/30/18 08:00 Mechanical Ventilator 05/30/18 06:56 72 16 30 05/30/18 04:38 66 16 30 05/30/18 04:00 98.4 76 19 132/72 (92) 99 98.4 05/30/18 04:00 Mechanical Ventilator 05/30/18 04:00 67 05/30/18 04:00 30 05/30/18 03:21 70 18 30 05/30/18 00:49 68 16 30 05/30/18 00:00 30 05/30/18 00:00 73 05/30/18 00:00 98.6 79 20 139/79 (99) 100 98.6 05/30/18 00:00 Mechanical Ventilator 05/29/18 22:53 72 17 30 05/29/18 20:53 80 19 30 05/29/18 20:00 30 05/29/18 20:00 Mechanical Ventilator 05/29/18 20:00 98.1 65 18 135/79 (97) 100 98.1 05/29/18 19:40 71 05/29/18 18:45 68 18 30 05/29/18 17:12 84 18 30 05/29/18 16:00 98.2 74 16 124/79 (94) 100 98.2 05/29/18 16:00 Mechanical Ventilator 05/29/18 16:00 30 05/29/18 16:00 74 05/29/18 14:38 81 18 30 05/29/18 12:53 79 18 30 05/29/18 12:00 30 05/29/18 12:00 98.1 76 18 127/78 (94) 96 98.1 05/29/18 12:00 Mechanical Ventilator 05/29/18 11:59 83 05/29/18 10:51 77 19 30 Intake and Output 05/29/18 05/30/18 19:00 07:00 Intake Total 645 ml 710 ml Output Total 900 ml 650 ml Balance -255 ml 60 ml Free Water 150 ml 130 ml IV Total 250 ml Tube Feeding 495 ml 330 ml Output Urine Total 550 ml 450 ml Stool Total 350 ml 200 ml Laboratory Tests 05/30/18 04:39: White Blood Count 8.1, Red Blood Count 4.81, Hemoglobin 13.0L, Hematocrit 41.3L , Mean Corpuscular Volume 86, Mean Corpuscular Hemoglobin 27.1, Mean Corpuscular Hemoglobin Concent 31.5L, Red Cell Distribution Width 15.6H, Platelet Count 316, Mean Platelet Volume 7.8, Neutrophils (%) (Auto) 61.9, Lymphocytes (%) (Auto) 20.4, Monocytes (%) (Auto) 10.4H, Eosinophils (%) (Auto) 4.8H, Basophils (%) (Auto) 2.7H, Sodium Level 134L, Potassium Level 4.0, Chloride Level 100, Carbon Dioxide Level 21, Anion Gap 13, Blood Urea Nitrogen 12, Creatinine 0.9, Estimat Glomerular Filtration Rate > 60, Glucose Level 108H , Calcium Level 10.3H, Total Bilirubin 0.5, Aspartate Amino Transf (AST/SGOT) 24 , Alanine Aminotransferase (ALT/SGPT) 51, Alkaline Phosphatase 139H, Pro-B-Type Natriuretic Peptide 120, Total Protein 9.3H, Albumin 3.7, Globulin 5.6, Albumin/ Globulin Ratio 0.7L Height (Feet): 6 Weight (Pounds): 203 General Appearance: no apparent distress EENT: PERRL/EOMI Neck: normal alignment Cardiovascular: normal peripheral pulses Respiratory/Chest: no respiratory distress Abdomen: soft Jimmy Fleming MD May 30, 2018 10:06
--- NOTE | 2018-05-30 10:22 | General Progress Note ---
Assessment/Plan Problem List: (1) Parastomal hernia ICD Codes: K43.5 - Parastomal hernia without obstruction or gangrene SNOMED: 840666875 Qualifiers: Qualified Codes: K43.5 - Parastomal hernia without obstruction or gangrene (2) Stoma malfunction SNOMED: 934397239 (3) Gastrostomy tube dependent ICD Codes: Z93.1 - Gastrostomy status SNOMED: 966105756, 166989876 (4) Colostomy in place ICD Codes: Z93.3 - Colostomy status SNOMED: 439548888, 845568544 (5) Diabetes mellitus ICD Codes: E11.9 - Type 2 diabetes mellitus without complications SNOMED: 63892945 Assessment/Plan prolapse stoma assessed >> no s/sx of infection. no obstruction. anemia work up reviewed >> iron deficiency G tube dependent hepatitis panel negative OB negative supportive care monitor H&H, prn transfusions ppi GTF GT site care daily/prn abx bowel regime fu labs Subjective ROS Limited/Unobtainable: No Allergies: Coded Allergies: AZTREONAM (Verified Allergy, Unknown, 05/13/18) Objective Last 24 Hour Vital Signs Date Time Temp Pulse Resp B/P (MAP) Pulse Ox O2 Delivery O2 Flow Rate FiO2 05/30/18 08:57 69 16 30 05/30/18 08:16 68 05/30/18 08:00 98.2 70 16 122/82 (95) 99 98.2 05/30/18 08:00 30 05/30/18 08:00 Mechanical Ventilator 05/30/18 06:56 72 16 30 05/30/18 04:38 66 16 30 05/30/18 04:00 98.4 76 19 132/72 (92) 99 98.4 05/30/18 04:00 Mechanical Ventilator 05/30/18 04:00 67 05/30/18 04:00 30 05/30/18 03:21 70 18 30 05/30/18 00:49 68 16 30 05/30/18 00:00 30 05/30/18 00:00 73 05/30/18 00:00 98.6 79 20 139/79 (99) 100 98.6 05/30/18 00:00 Mechanical Ventilator 05/29/18 22:53 72 17 30 05/29/18 20:53 80 19 30 05/29/18 20:00 30 05/29/18 20:00 Mechanical Ventilator 05/29/18 20:00 98.1 65 18 135/79 (97) 100 98.1 05/29/18 19:40 71 05/29/18 18:45 68 18 30 05/29/18 17:12 84 18 30 05/29/18 16:00 98.2 74 16 124/79 (94) 100 98.2 05/29/18 16:00 Mechanical Ventilator 05/29/18 16:00 30 05/29/18 16:00 74 05/29/18 14:38 81 18 30 05/29/18 12:53 79 18 30 05/29/18 12:00 30 05/29/18 12:00 98.1 76 18 127/78 (94) 96 98.1 05/29/18 12:00 Mechanical Ventilator 05/29/18 11:59 83 05/29/18 10:51 77 19 30 Intake and Output 05/29/18 05/30/18 19:00 07:00 Intake Total 645 ml 750 ml Output Total 900 ml 650 ml Balance -255 ml 100 ml Free Water 150 ml 130 ml IV Total 250 ml Tube Feeding 495 ml 370 ml Output Urine Total 550 ml 450 ml Stool Total 350 ml 200 ml Laboratory Tests 05/30/18 04:39: White Blood Count 8.1, Red Blood Count 4.81, Hemoglobin 13.0L, Hematocrit 41.3L , Mean Corpuscular Volume 86, Mean Corpuscular Hemoglobin 27.1, Mean Corpuscular Hemoglobin Concent 31.5L, Red Cell Distribution Width 15.6H, Platelet Count 316, Mean Platelet Volume 7.8, Neutrophils (%) (Auto) 61.9, Lymphocytes (%) (Auto) 20.4, Monocytes (%) (Auto) 10.4H, Eosinophils (%) (Auto) 4.8H, Basophils (%) (Auto) 2.7H, Sodium Level 134L, Potassium Level 4.0, Chloride Level 100, Carbon Dioxide Level 21, Anion Gap 13, Blood Urea Nitrogen 12, Creatinine 0.9, Estimat Glomerular Filtration Rate > 60, Glucose Level 108H , Calcium Level 10.3H, Total Bilirubin 0.5, Aspartate Amino Transf (AST/SGOT) 24 , Alanine Aminotransferase (ALT/SGPT) 51, Alkaline Phosphatase 139H, Pro-B-Type Natriuretic Peptide 120, Total Protein 9.3H, Albumin 3.7, Globulin 5.6, Albumin/ Globulin Ratio 0.7L Height (Feet): 6 Weight (Pounds): 203 General Appearance: no apparent distress EENT: normal ENT inspection Neck: supple Cardiovascular: normal rate Respiratory/Chest: decreased breath sounds Abdomen: normal bowel sounds, non tender, soft Extremities: non-tender Dae Prater MD May 30, 2018 10:22
--- NOTE | 2018-05-30 11:44 | Cardiology Progress Note ---
Assessment/Plan Status: stable Assessment/Plan Assessment: (1) Acute on chronic respiratory failure (2) Acute on chronic renal insufficiency (3) Severe sepsis (4) Vegetative state (5) Colostomy in place (6) Diabetes mellitus Plan: Continue antibiotics Echocardiogram reviewed- no endocarditis JOE for next Sunday Patient afebrile, normal WBC otherwise Continue trach care and tube feeds Continue keppra for seizures Subjective Cardiovascular: Reports: no symptoms Respiratory: Reports: no symptoms Gastrointestinal/Abdominal: Reports: no symptoms Genitourinary: Reports: no symptoms Subjective Afebrile, vitals stable, Telemetry shows sinus rhythm. No acute events Ventilator settings: portex 7, AC 16, TV: 600, FiO2: 30%, PEEP: 5. GT is in place running glucerna 1.2 @ 65 ml/hr. No residual present. Colostomy bag in place. JOE was supposed to be done today but JOE scheduled for 06/03/18 at 1100, no other opening downstairs. Objective Last 24 Hour Vital Signs Date Time Temp Pulse Resp B/P (MAP) Pulse Ox O2 Delivery O2 Flow Rate FiO2 05/30/18 10:56 66 17 30 05/30/18 08:57 69 16 30 05/30/18 08:16 68 05/30/18 08:00 98.2 70 16 122/82 (95) 99 98.2 05/30/18 08:00 30 05/30/18 08:00 Mechanical Ventilator 05/30/18 06:56 72 16 30 05/30/18 04:38 66 16 30 05/30/18 04:00 98.4 76 19 132/72 (92) 99 98.4 05/30/18 04:00 Mechanical Ventilator 05/30/18 04:00 67 05/30/18 04:00 30 05/30/18 03:21 70 18 30 05/30/18 00:49 68 16 30 05/30/18 00:00 30 05/30/18 00:00 73 05/30/18 00:00 98.6 79 20 139/79 (99) 100 98.6 05/30/18 00:00 Mechanical Ventilator 05/29/18 22:53 72 17 30 05/29/18 20:53 80 19 30 05/29/18 20:00 30 05/29/18 20:00 Mechanical Ventilator 05/29/18 20:00 98.1 65 18 135/79 (97) 100 98.1 05/29/18 19:40 71 05/29/18 18:45 68 18 30 05/29/18 17:12 84 18 30 05/29/18 16:00 98.2 74 16 124/79 (94) 100 98.2 05/29/18 16:00 Mechanical Ventilator 05/29/18 16:00 30 05/29/18 16:00 74 05/29/18 14:38 81 18 30 05/29/18 12:53 79 18 30 05/29/18 12:00 30 05/29/18 12:00 98.1 76 18 127/78 (94) 96 98.1 05/29/18 12:00 Mechanical Ventilator 05/29/18 11:59 83 General Appearance: no apparent distress, on vent EENT: PERRL/EOMI, normal ENT inspection Neck: non-tender, normal alignment, supple, normal inspection, no JVD Rhythm: NSR Cardiovascular: normal peripheral pulses, normal rate, regular rhythm Respiratory/Chest: chest wall non-tender, lungs clear, normal breath sounds, no respiratory distress Abdomen: normal bowel sounds, non tender, soft, no organomegaly Extremities: normal range of motion, non-tender 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 grossly normal Intake and Output 05/29/18 05/30/18 19:00 07:00 Intake Total 645 ml 750 ml Output Total 900 ml 650 ml Balance -255 ml 100 ml Free Water 150 ml 130 ml IV Total 250 ml Tube Feeding 495 ml 370 ml Output Urine Total 550 ml 450 ml Stool Total 350 ml 200 ml Laboratory Tests Test 05/30/18 04:39 White Blood Count 8.1 K/UL (4.8-10.8) Red Blood Count 4.81 M/UL (4.70-6.10) Hemoglobin 13.0 G/DL (14.2-18.0) L Hematocrit 41.3 % (42.0-52.0) L Mean Corpuscular Volume 86 FL (80-99) Mean Corpuscular Hemoglobin 27.1 PG (27.0-31.0) Mean Corpuscular Hemoglobin Concent 31.5 G/DL (32.0-36.0) L Red Cell Distribution Width 15.6 % (11.6-14.8) H Platelet Count 316 K/UL (150-450) Mean Platelet Volume 7.8 FL (6.5-10.1) Neutrophils (%) (Auto) 61.9 % (45.0-75.0) Lymphocytes (%) (Auto) 20.4 % (20.0-45.0) Monocytes (%) (Auto) 10.4 % (1.0-10.0) H Eosinophils (%) (Auto) 4.8 % (0.0-3.0) H Basophils (%) (Auto) 2.7 % (0.0-2.0) H Sodium Level 134 MMOL/L (136-145) L Potassium Level 4.0 MMOL/L (3.5-5.1) Chloride Level 100 MMOL/L (98-107) Carbon Dioxide Level 21 MMOL/L (21-32) Anion Gap 13 mmol/L (5-15) Blood Urea Nitrogen 12 mg/dL (7-18) Creatinine 0.9 MG/DL (0.55-1.30) Estimat Glomerular Filtration Rate > 60 mL/min (>60) Glucose Level 108 MG/DL (74-106) H Calcium Level 10.3 MG/DL (8.5-10.1) H Total Bilirubin 0.5 MG/DL (0.2-1.0) Aspartate Amino Transf (AST/SGOT) 24 U/L (15-37) Alanine Aminotransferase (ALT/SGPT) 51 U/L (12-78) Alkaline Phosphatase 139 U/L (46-116) H Pro-B-Type Natriuretic Peptide 120 pg/mL (0-125) Total Protein 9.3 G/DL (6.4-8.2) H Albumin 3.7 G/DL (3.4-5.0) Globulin 5.6 g/dL Albumin/Globulin Ratio 0.7 (1.0-2.7) L Kali Owens M.D. May 30, 2018 11:44
[2018-05-30 12:00] VITALS: BP 129/76
--- NOTE | 2018-05-30 12:33 | Diagnostic Imaging Report ---
Indication: Dyspnea Technique: One view of the chest Comparison: 05/17/2018 Findings: Tracheostomy is again demonstrated. Left-sided pleural effusion is again demonstrated. Previously demonstrated interstitial congestion and atelectatic changes are no longer evident. Previously demonstrated PICC on the left is no longer evident. There is a PICC with its tip in the right axilla now present. Impression: Left-sided pleural effusion, also previously reported. No acute process otherwise. Note interim resolution of previously demonstrated interstitial congestion
[2018-05-30] MEDS: Ertapenem 1 GM in NS 55 ML IVPB SCH (15:38)
[2018-05-30] MEDS: Vancomycin 1.5 GM/D5W 250ML IVPB SCH (15:39)
--- NOTE | 2018-05-30 15:53 | Pulmonolgy Critical Care Note ---
Critical Care - Asmt/Plan Problems: (1) Acute on chronic respiratory failure (2) Acute on chronic renal insufficiency (3) Severe sepsis (4) Vegetative state (5) Colostomy in place (6) Diabetes mellitus Respiratory: monitor respiratory rate, adjust FIO2 Cardiac: continue to monitor HR/BP Renal: F/U I&O Infectious Disease: check cultures Gastrointestinal: continue feedings/current rate Endocrine: check TSH Hematologic: monitor H/H Neurologic: PRN Morphine Disposition: keep in ICU Notes Reviewed: cardio Discussed with: nurses, consultants, case resolution specialistpayment manager - Objective Last 24 Hour Vital Signs Date Time Temp Pulse Resp B/P (MAP) Pulse Ox O2 Delivery O2 Flow Rate FiO2 05/30/18 14:55 66 16 30 05/30/18 13:10 68 16 30 05/30/18 12:00 Mechanical Ventilator 05/30/18 12:00 64 05/30/18 12:00 98.1 65 16 129/76 (93) 100 98.1 05/30/18 12:00 30 05/30/18 10:56 66 17 30 05/30/18 08:57 69 16 30 05/30/18 08:16 68 05/30/18 08:00 98.2 70 16 122/82 (95) 99 98.2 05/30/18 08:00 30 05/30/18 08:00 Mechanical Ventilator 05/30/18 06:56 72 16 30 05/30/18 04:38 66 16 30 05/30/18 04:00 98.4 76 19 132/72 (92) 99 98.4 05/30/18 04:00 Mechanical Ventilator 05/30/18 04:00 67 05/30/18 04:00 30 05/30/18 03:21 70 18 30 05/30/18 00:49 68 16 30 05/30/18 00:00 30 05/30/18 00:00 73 05/30/18 00:00 98.6 79 20 139/79 (99) 100 98.6 05/30/18 00:00 Mechanical Ventilator 05/29/18 22:53 72 17 30 05/29/18 20:53 80 19 30 05/29/18 20:00 30 05/29/18 20:00 Mechanical Ventilator 05/29/18 20:00 98.1 65 18 135/79 (97) 100 98.1 05/29/18 19:40 71 05/29/18 18:45 68 18 30 05/29/18 17:12 84 18 30 05/29/18 16:00 98.2 74 16 124/79 (94) 100 98.2 05/29/18 16:00 Mechanical Ventilator 05/29/18 16:00 30 05/29/18 16:00 74 Status: awake Condition: critical HEENT: atraumatic Lungs: chest wall tender Heart: regular Abdomen: non-tender Extremities: no C/C/E Decubiti: location Accucheck: 109 Critical Care - Subjective ROS Limited/Unobtainable: No FI02: 30 Vent Support Breath Rate: 16 Vent Support Mode: AC Vent Tidal Volume: 600 Sputum Amount: Moderate PEEP: 5.0 PIP: 29 Tube Feeding Amount: 50 I&O: Intake and Output 05/29/18 05/30/18 19:00 07:00 Intake Total 645 ml 750 ml Output Total 900 ml 650 ml Balance -255 ml 100 ml Free Water 150 ml 130 ml IV Total 250 ml Tube Feeding 495 ml 370 ml Output Urine Total 550 ml 450 ml Stool Total 350 ml 200 ml Labs: Laboratory Tests Test 05/30/18 04:39 White Blood Count 8.1 K/UL (4.8-10.8) Red Blood Count 4.81 M/UL (4.70-6.10) Hemoglobin 13.0 G/DL (14.2-18.0) L Hematocrit 41.3 % (42.0-52.0) L Mean Corpuscular Volume 86 FL (80-99) Mean Corpuscular Hemoglobin 27.1 PG (27.0-31.0) Mean Corpuscular Hemoglobin Concent 31.5 G/DL (32.0-36.0) L Red Cell Distribution Width 15.6 % (11.6-14.8) H Platelet Count 316 K/UL (150-450) Mean Platelet Volume 7.8 FL (6.5-10.1) Neutrophils (%) (Auto) 61.9 % (45.0-75.0) Lymphocytes (%) (Auto) 20.4 % (20.0-45.0) Monocytes (%) (Auto) 10.4 % (1.0-10.0) H Eosinophils (%) (Auto) 4.8 % (0.0-3.0) H Basophils (%) (Auto) 2.7 % (0.0-2.0) H Sodium Level 134 MMOL/L (136-145) L Potassium Level 4.0 MMOL/L (3.5-5.1) Chloride Level 100 MMOL/L (98-107) Carbon Dioxide Level 21 MMOL/L (21-32) Anion Gap 13 mmol/L (5-15) Blood Urea Nitrogen 12 mg/dL (7-18) Creatinine 0.9 MG/DL (0.55-1.30) Estimat Glomerular Filtration Rate > 60 mL/min (>60) Glucose Level 108 MG/DL (74-106) H Calcium Level 10.3 MG/DL (8.5-10.1) H Total Bilirubin 0.5 MG/DL (0.2-1.0) Aspartate Amino Transf (AST/SGOT) 24 U/L (15-37) Alanine Aminotransferase (ALT/SGPT) 51 U/L (12-78) Alkaline Phosphatase 139 U/L (46-116) H Pro-B-Type Natriuretic Peptide 120 pg/mL (0-125) Total Protein 9.3 G/DL (6.4-8.2) H Albumin 3.7 G/DL (3.4-5.0) Globulin 5.6 g/dL Albumin/Globulin Ratio 0.7 (1.0-2.7) L Nico Goetz MD May 30, 2018 15:53
[2018-05-30 16:00] VITALS: BP 126/77
[2018-05-30] MEDS ORDERED: NS 275ml ONE (18:02)
[2018-05-30] MEDS ORDERED: Tubing IV Secondary IV ONE (18:02)
[2018-05-30] MEDS: Dyna-Hex 2% Top Sol 2oz TOPIC SCH (19:47)
[2018-05-30 20:00] VITALS: BP 133/71
[2018-05-30] MEDS: Miralax 17gm pkt GT SCH (20:41)
[2018-05-31] VITALS: BP 135/72
[2018-05-31 04:00] VITALS: BP 127/81
--- NOTE | 2018-05-31 04:00 | Progress Note ---
DATE: 05/30/2018 SUBJECTIVE: The patient is awake, alert, and afebrile. Hemodynamically stable. His tongue is protruded from his oral cavity. PHYSICAL EXAMINATION: VITAL SIGNS: Blood pressure 133/71, his pulse is 70, respirations 19, and temperature 98.2. HEENT: Eyes were normal. ENT, mucous membranes were moist and intact. NECK: Supple with no JVD without lymph nodes. Tracheostomy site is clean. LUNGS: Clear without rhonchi, rales, or wheezing. Secretions are small, thin, and whitish. HEART: Normal sounds with regular beats. There is no S3, S4, or pericardial rub. ABDOMEN: Soft and nontender with normal bowel sounds. Gastrostomy site is clean. EXTREMITIES: Warm without cyanosis, clubbing, or edema. LABORATORY AND DIAGNOSTIC DATA: Hemoglobin is 13.0, hematocrit 41.3 with MCV of 86, WBC of 8.1, and platelet is 316. His BUN and creatinine is 12 and 0.9 respectively. His sodium is 134, potassium 4.0, chloride 100, CO2 is 21, his glucose is 108, and his calcium is 10.3. SGOT, SGPT, and bilirubin . His albumin is 3.7. His total protein is 9.3. Chest x-ray done today revealed no acute process and small left pleural effusion. IMPRESSION: The patient is in stable condition. Sariah Bhat M.D. DR: ELISSA JOB#: [id number] CC:
[2018-05-31 05:33] LABS: BASOPHILS % (AUTO) 1.3 % (0.0-2.0); EOSINOPHILS % (AUTO) 5.3 % (0.0-3.0); HEMATOCRIT 40.3 % (42.0-52.0); HEMOGLOBIN 12.9 G/DL (14.2-18.0); LYMPHOCYTES % (AUTO) 18.4 % (20.0-45.0); MEAN CORPUSCULAR VOLUME 87 FL (80-99); MONOCYTES % (AUTO) 10.9 % (1.0-10.0); NEUTROPHILS % (AUTO) 64.1 % (45.0-75.0); PLATELET COUNT 315 K/UL (150-450); RED BLOOD COUNT 4.61 M/UL (4.70-6.10); RED CELL DISTRIBUTION WIDTH 16.4 % (11.6-14.8); WHITE BLOOD COUNT 8.7 K/UL (4.8-10.8)
[2018-05-31 06:06] LABS: ANION GAP 11 mmol/L (5-15); BLOOD UREA NITROGEN 14 mg/dL (7-18); CARBON DIOXIDE 22 MMOL/L (21-32); CHLORIDE 100 MMOL/L (98-107); CREATININE 0.9 MG/DL (0.55-1.30); PHOSPHORUS 1.9 MG/DL (2.5-4.9); POTASSIUM 4.1 MMOL/L (3.5-5.1); SODIUM 133 MMOL/L (136-145)
[2018-05-31] MEDS: NovoLOG Insulin Flexpen SUBQ SCH ×4 (06:20→23:56)
[2018-05-31] MEDS: levETIRAcetam 500mg/5ml Liquid GT SCH ×3 (06:22→21:28)
--- NOTE | 2018-05-31 07:34 | Infectious Diseases Prog Note ---
Assessment/Plan Assessment/Plan Sepsis, resolving- 2ry to UTI and Bacteremia Blood cultures postive 01/23 bottles with GPC Unclear source will need to R/O Endocarditis Possible PNA initially -u/a wbc 40-60, nit neg, leuk +2; ucx >100k E. aerogenes (S cefepime, cipro/ levo; R Zosyn) -BCX 01/23 E. aerogenes, prob Amp C (S cefepime, cipro/levo; R Zosyn), P. mirabilis ESBL (S Zosyn, Ertapenem); repeta 05/16 10/25 CoNS (suspect contaminant) , 05/18 Staph f/u final results if CoNS may need TTE and IE work up. -CXR 05/17: Increased left pleural effusion, over 3 days. Overall decreased interstitial congestion. Right infrahilar atelectasis -CXR: Cardiomegaly. Mild interstitial congestion. Suspect small bilateral pleural effusions -CT abd/p: Right lower quadrant double barrel colostomy, as described. Small peristomal hernia contains bowel loops without evidence of obstruction or strangulation. Left renal staghorn calculus. Bilateral intrarenal calyceal calculi. Borderline hydronephrosis on the right without evidence of downstream obstructive lesion. May indicate mild ureteral pelvic junction obstruction. Somewhat atrophic left kidney. Inspissated contrast ball within the distal sigmoid colon. Gastrostomy in good position. Nonspecific bilateral perinephric fat stranding, could indicate pyelonephritis or could be chronic. Newberry catheter in place. Apparent bladder wall thickening, possibly an artifact of under distention but cystitis is not excludable, particularly in view of mild perivesical fat stranding. Bilateral pulmonary parenchymal atelectasis and consolidation -Blood Cx from PICC CoNS 2/2 bottles Peripheral Neg- (May be contaminant but will repeat blood Cx given new leukocytosis if positive will need ECHO. - Blood Cx 05/20/18 - GPC - Will need TTE for IE work up and the PICC removed. PICC line infection/colonization - TTE negative. Blood cultures only positive from PICC. Not positive from Peripheral - Will repeat blood cultures x 1 to confirm clearance after PICC replaced. Los suspicion for IE. - PICC replace 05/22/18 Fever/Leukocytosis; Resolved - i recurs Re-evaluate lines, Diarrhea? C. dif? DIVYA, improving Lactic acidosis, resolved chronic resp failure trach/vent dependant BPH GERD HTN DM2 seizure disorder colostomy s/p GT constipation VRE and MRSA colonized Plan: - Continue empiric IV Vancomycin # for bacteremia/line infection - Abx end date 06/05/18 if JOE negative - Recommend Transesophageal ECHO to r/o IE -Last day of Ertapenem #14/ for Amp-C Enterobacter and ESBL P.mirabilis bacteremia ; will treat for 14 days - End date 05/30/18 -05/17 SP Zosyn #4 - Monitor CBC/CMP, temperatures - F/U JOE - Pulmonary care Thank you for this consultation. Will continue to follow along with you. Subjective Allergies: Coded Allergies: AZTREONAM (Verified Allergy, Unknown, 05/13/18) Subjective No acute changes On Vent still and stable at 30% O2 sating well Remains Afebrile Objective Vital Signs Last 24 Hour Vital Signs Date Time Temp Pulse Resp B/P (MAP) Pulse Ox O2 Delivery O2 Flow Rate FiO2 05/31/18 07:24 69 16 30 05/31/18 05:16 74 18 30 05/31/18 04:00 Mechanical Ventilator 05/31/18 04:00 30 05/31/18 04:00 76 05/31/18 04:00 98.3 70 19 127/81 (96) 100 98.3 05/31/18 03:22 80 18 30 05/31/18 01:22 72 18 30 05/31/18 00:00 30 05/31/18 00:00 Mechanical Ventilator 05/31/18 00:00 79 05/31/18 00:00 98.1 80 18 135/72 (93) 100 98.1 05/30/18 22:52 78 18 30 05/30/18 21:29 90 19 30 05/30/18 20:00 Mechanical Ventilator 05/30/18 20:00 98.2 70 19 133/71 (91) 100 98.2 05/30/18 20:00 30 05/30/18 20:00 70 05/30/18 18:31 71 16 30 05/30/18 16:38 75 17 30 05/30/18 16:00 Mechanical Ventilator 05/30/18 16:00 97.5 70 17 126/77 (93) 100 97.5 05/30/18 16:00 69 05/30/18 16:00 30 05/30/18 14:55 66 16 30 05/30/18 13:10 68 16 30 05/30/18 12:00 Mechanical Ventilator 05/30/18 12:00 64 05/30/18 12:00 98.1 65 16 129/76 (93) 100 98.1 05/30/18 12:00 30 05/30/18 10:56 66 17 30 05/30/18 08:57 69 16 30 05/30/18 08:16 68 05/30/18 08:00 98.2 70 16 122/82 (95) 99 98.2 05/30/18 08:00 30 05/30/18 08:00 Mechanical Ventilator Height (Feet): 6 Weight (Pounds): 198 Objective GENERAL: NAD. On vent 30% O2 HEENT: NCAT, DMM, Tracheostomy (C/D/I) PULM: Mild crackles in bases B/L, No wheezing CARDIOVASCULAR: RRR, S1 and S2. No M/R/G. ABDOMEN: Obese and nondistended. +BS, The G-tube and stoma noted. EXTREMITIES: No edema. 1+ pedal pulses. Laboratory Tests Test 05/31/18 04:00 White Blood Count 8.7 K/UL (4.8-10.8) Red Blood Count 4.61 M/UL (4.70-6.10) L Hemoglobin 12.9 G/DL (14.2-18.0) L Hematocrit 40.3 % (42.0-52.0) L Mean Corpuscular Volume 87 FL (80-99) Mean Corpuscular Hemoglobin 28.0 PG (27.0-31.0) Mean Corpuscular Hemoglobin Concent 32.0 G/DL (32.0-36.0) Red Cell Distribution Width 16.4 % (11.6-14.8) H Platelet Count 315 K/UL (150-450) Mean Platelet Volume 7.3 FL (6.5-10.1) Neutrophils (%) (Auto) 64.1 % (45.0-75.0) Lymphocytes (%) (Auto) 18.4 % (20.0-45.0) L Monocytes (%) (Auto) 10.9 % (1.0-10.0) H Eosinophils (%) (Auto) 5.3 % (0.0-3.0) H Basophils (%) (Auto) 1.3 % (0.0-2.0) Sodium Level 133 MMOL/L (136-145) L Potassium Level 4.1 MMOL/L (3.5-5.1) Chloride Level 100 MMOL/L (98-107) Carbon Dioxide Level 22 MMOL/L (21-32) Anion Gap 11 mmol/L (5-15) Blood Urea Nitrogen 14 mg/dL (7-18) Creatinine 0.9 MG/DL (0.55-1.30) Estimat Glomerular Filtration Rate > 60 mL/min (>60) Glucose Level 96 MG/DL (74-106) Calcium Level 10.0 MG/DL (8.5-10.1) Phosphorus Level 1.9 MG/DL (2.5-4.9) L Magnesium Level 2.1 MG/DL (1.8-2.4) Current Medications Medications (Trade) Dose Ordered Sig/Va Route PRN Reason Start Time Stop Time Status Last Admin Dose Admin Acetaminophen (Tylenol) 650 mg Q4H PRN ORAL FEVER 05/16/18 14:00 06/13/18 09:59 05/27/18 21:04 Baclofen (Lioresal) 10 mg EVERY 8 HOURS GT 05/20/18 14:00 06/13/18 12:59 05/31/18 06:23 Chlorhexidine Gluconate (Rebecca-Hex 2%) 1 applic DAILY@2000 TOPIC 05/16/18 20:00 06/13/18 19:59 05/30/18 19:47 Dextrose (Dextrose 50%) 25 ml STAT PRN IV Hypoglycemia 05/17/18 08:45 06/14/18 08:44 Dextrose (Dextrose 50%) 50 ml STAT PRN IV Hypoglycemia 05/17/18 08:45 06/14/18 08:44 Ertapenem 1 gm/ Sodium Chloride 55 ml @ 110 mls/hr Q24H IVPB 05/17/18 15:00 05/31/18 14:59 05/30/18 15:38 Heparin Sodium (Porcine) (Heparin 5000 units/ml) 5,000 units EVERY 12 HOURS SUBQ 05/16/18 21:00 06/13/18 20:59 05/30/18 20:41 Insulin Aspart (NovoLOG) Q6HR SUBQ 05/16/18 18:00 06/14/18 11:29 05/31/18 06:20 Lansoprazole (Prevacid) 30 mg DAILY GT 05/17/18 09:00 06/15/18 08:59 05/30/18 09:31 Levetiracetam (Keppra) 1,000 mg Q8HR GT 05/16/18 14:00 06/13/18 12:59 05/31/18 06:22 Ondansetron HCl (Zofran) 4 mg Q6H PRN IVP Nausea & Vomiting 05/16/18 16:00 06/13/18 09:59 Polyethylene Glycol (Miralax) 17 gm BEDTIME GT 05/20/18 21:00 06/14/18 20:59 05/30/18 20:41 Vancomycin HCl (Vanco rx to dose) 1 ea DAILY PRN MISC PER RX PROTOCOL 05/18/18 13:15 06/17/18 13:14 Vancomycin HCl/ Dextrose 250 ml @ 125 mls/hr Q18H IVPB 05/29/18 21:00 06/05/18 20:59 05/30/18 15:39 Kali Richter M.D. May 31, 2018 07:34
[2018-05-31 08:00] VITALS: BP 120/76
--- NOTE | 2018-05-31 08:10 | General Progress Note ---
Assessment/Plan Status: stable Assessment/Plan # Leukocytosis - Sepsis with elevated temperature of 103 degrees Fahrenheit. Had uti v bacteremia (CoNS) on abx, has improved. --> Pt on antibiotics, has received a dose of Zosyn and currently is on vancomycin q.12 h. now on cefepime --> Appreciate Infectious Disease recs --> 2D echo per ID performed on 05/22: No discrete vegetations seen, however SBE may not be excluded by transthoracic 2-D echo. --> 05/31: WBC of 8.7, wnl --> Currently afebrile # Anemia of chronic disease. No hemolysis, peripheral smear reviewed, ferritin was elevated. --> Continue to closely monitor --> Hgb goal >7 --> 05/31: Hgb 12.9 # Acute kidney injury. --> Currently on IV fluids, IV bolus given to see if the patient responds along with IV pressor as needed. --> Closely monitor with Nephrology team. # Septic shock, use antibiotic per ID services. --> potential uti, on abx and bacteremia # Respiratory failure, status post tracheostomy, on mechanical ventilation per Dr. Goetz # Hypercalcemia. Monitor PTH and calcium level. --> 05/31: 10.0, wnl The time the note was entered does not necessarily correspond to the time the patient was seen. Subjective Date patient seen: May 31, 2018 ROS Limited/Unobtainable: Yes Hematologic/Lymphatic: Reports: anemia Allergies: Coded Allergies: AZTREONAM (Verified Allergy, Unknown, 05/13/18) All Systems: reviewed and negative except above Subjective Pt remains on vent. No acute events. H/H stable. Vitals are stable. Objective Last 24 Hour Vital Signs Date Time Temp Pulse Resp B/P (MAP) Pulse Ox O2 Delivery O2 Flow Rate FiO2 05/31/18 08:00 30 05/31/18 08:00 Mechanical Ventilator 05/31/18 07:24 69 16 30 05/31/18 05:16 74 18 30 05/31/18 04:00 Mechanical Ventilator 05/31/18 04:00 30 05/31/18 04:00 76 05/31/18 04:00 98.3 70 19 127/81 (96) 100 98.3 05/31/18 03:22 80 18 30 05/31/18 01:22 72 18 30 05/31/18 00:00 30 05/31/18 00:00 Mechanical Ventilator 05/31/18 00:00 79 05/31/18 00:00 98.1 80 18 135/72 (93) 100 98.1 05/30/18 22:52 78 18 30 05/30/18 21:29 90 19 30 05/30/18 20:00 Mechanical Ventilator 05/30/18 20:00 98.2 70 19 133/71 (91) 100 98.2 05/30/18 20:00 30 05/30/18 20:00 70 05/30/18 18:31 71 16 30 05/30/18 16:38 75 17 30 05/30/18 16:00 Mechanical Ventilator 05/30/18 16:00 97.5 70 17 126/77 (93) 100 97.5 05/30/18 16:00 69 05/30/18 16:00 30 05/30/18 14:55 66 16 30 05/30/18 13:10 68 16 30 05/30/18 12:00 Mechanical Ventilator 05/30/18 12:00 64 05/30/18 12:00 98.1 65 16 129/76 (93) 100 98.1 05/30/18 12:00 30 05/30/18 10:56 66 17 30 05/30/18 08:57 69 16 30 05/30/18 08:16 68 Intake and Output 05/30/18 05/31/18 19:00 07:00 Intake Total 985 ml 600 ml Output Total 800 ml Balance 185 ml 600 ml Free Water 150 ml 100 ml IV Total 305 ml Tube Feeding 530 ml 500 ml Output Urine Total 550 ml Stool Total 250 ml Laboratory Tests 05/31/18 04:00: White Blood Count 8.7, Red Blood Count 4.61L, Hemoglobin 12.9L, Hematocrit 40.3L , Mean Corpuscular Volume 87, Mean Corpuscular Hemoglobin 28.0, Mean Corpuscular Hemoglobin Concent 32.0, Red Cell Distribution Width 16.4H, Platelet Count 315, Mean Platelet Volume 7.3, Neutrophils (%) (Auto) 64.1, Lymphocytes (%) (Auto) 18.4L, Monocytes (%) (Auto) 10.9H, Eosinophils (%) (Auto ) 5.3H, Basophils (%) (Auto) 1.3, Sodium Level 133L, Potassium Level 4.1, Chloride Level 100, Carbon Dioxide Level 22, Anion Gap 11, Blood Urea Nitrogen 14, Creatinine 0.9, Estimat Glomerular Filtration Rate > 60, Glucose Level 96, Calcium Level 10.0, Phosphorus Level 1.9L, Magnesium Level 2.1 Height (Feet): 6 Weight (Pounds): 198 General Appearance: no apparent distress EENT: PERRL/EOMI Neck: normal alignment Cardiovascular: normal peripheral pulses Respiratory/Chest: no respiratory distress Abdomen: soft Jimmy Fleming MD May 31, 2018 08:09
[2018-05-31] MEDS: Heparin 5000 units/ml inj SUBQ SCH ×2 (08:13→21:29)
[2018-05-31] MEDS: Vancomycin 1.5 GM/D5W 250ML IVPB SCH (08:14)
--- NOTE | 2018-05-31 09:02 | Nephrology Progress Note ---
Assessment/Plan Assessment/Plan 1. DIVYA- resolved 2. Sepsis- on Abx. 3. Chronic Resp FL- trached on vent 4. Hyponatremia - Na stable 5. SZ- Keppra -sodium 133-135 6. Hypophos- replace today Subjective Date patient seen: May 31, 2018 Time patient seen: 09:00 ROS Limited/Unobtainable: Yes Allergies: Coded Allergies: AZTREONAM (Verified Allergy, Unknown, 05/13/18) Subjective Patient trached/vent awaiting DC Objective Last 24 Hour Vital Signs Date Time Temp Pulse Resp B/P (MAP) Pulse Ox O2 Delivery O2 Flow Rate FiO2 05/31/18 08:00 30 05/31/18 08:00 Mechanical Ventilator 05/31/18 08:00 98.1 73 16 120/76 (91) 99 98.1 05/31/18 07:24 69 16 30 05/31/18 05:16 74 18 30 05/31/18 04:00 Mechanical Ventilator 05/31/18 04:00 30 05/31/18 04:00 76 05/31/18 04:00 98.3 70 19 127/81 (96) 100 98.3 05/31/18 03:22 80 18 30 05/31/18 01:22 72 18 30 05/31/18 00:00 30 05/31/18 00:00 Mechanical Ventilator 05/31/18 00:00 79 05/31/18 00:00 98.1 80 18 135/72 (93) 100 98.1 05/30/18 22:52 78 18 30 05/30/18 21:29 90 19 30 05/30/18 20:00 Mechanical Ventilator 05/30/18 20:00 98.2 70 19 133/71 (91) 100 98.2 05/30/18 20:00 30 05/30/18 20:00 70 05/30/18 18:31 71 16 30 05/30/18 16:38 75 17 30 05/30/18 16:00 Mechanical Ventilator 05/30/18 16:00 97.5 70 17 126/77 (93) 100 97.5 05/30/18 16:00 69 05/30/18 16:00 30 05/30/18 14:55 66 16 30 05/30/18 13:10 68 16 30 05/30/18 12:00 Mechanical Ventilator 05/30/18 12:00 64 05/30/18 12:00 98.1 65 16 129/76 (93) 100 98.1 05/30/18 12:00 30 05/30/18 10:56 66 17 30 Intake and Output 05/30/18 05/31/18 19:00 07:00 Intake Total 985 ml 600 ml Output Total 800 ml Balance 185 ml 600 ml Free Water 150 ml 100 ml IV Total 305 ml Tube Feeding 530 ml 500 ml Output Urine Total 550 ml Stool Total 250 ml Laboratory Tests 05/31/18 04:00: White Blood Count 8.7, Red Blood Count 4.61L, Hemoglobin 12.9L, Hematocrit 40.3L , Mean Corpuscular Volume 87, Mean Corpuscular Hemoglobin 28.0, Mean Corpuscular Hemoglobin Concent 32.0, Red Cell Distribution Width 16.4H, Platelet Count 315, Mean Platelet Volume 7.3, Neutrophils (%) (Auto) 64.1, Lymphocytes (%) (Auto) 18.4L, Monocytes (%) (Auto) 10.9H, Eosinophils (%) (Auto ) 5.3H, Basophils (%) (Auto) 1.3, Sodium Level 133L, Potassium Level 4.1, Chloride Level 100, Carbon Dioxide Level 22, Anion Gap 11, Blood Urea Nitrogen 14, Creatinine 0.9, Estimat Glomerular Filtration Rate > 60, Glucose Level 96, Calcium Level 10.0, Phosphorus Level 1.9L, Magnesium Level 2.1 Height (Feet): 6 Weight (Pounds): 198 General Appearance: WD/WN, no apparent distress EENT: PERRL/EOMI Neck: non-tender, normal alignment Cardiovascular: normal rate, regular rhythm Respiratory/Chest: lungs clear, normal breath sounds Abdomen: non tender, soft Edema: no edema noted Arm (L), no edema noted Arm (R), no edema noted Leg (L), no edema noted Leg (R), no edema noted Pedal (L), no edema noted Pedal (R), no edema noted Generalized Mir Gann M.D. May 31, 2018 09:02
--- NOTE | 2018-05-31 10:01 | General Progress Note ---
Assessment/Plan Problem List: (1) Parastomal hernia ICD Codes: K43.5 - Parastomal hernia without obstruction or gangrene SNOMED: 467144735 Qualifiers: Qualified Codes: K43.5 - Parastomal hernia without obstruction or gangrene (2) Stoma malfunction SNOMED: 441363505 (3) Gastrostomy tube dependent ICD Codes: Z93.1 - Gastrostomy status SNOMED: 943376386, 100897308 (4) Colostomy in place ICD Codes: Z93.3 - Colostomy status SNOMED: 799937749, 006542801 (5) Diabetes mellitus ICD Codes: E11.9 - Type 2 diabetes mellitus without complications SNOMED: 33410722 Assessment/Plan prolapse stoma assessed >> no s/sx of infection. no obstruction. anemia work up reviewed >> iron deficiency G tube dependent hepatitis panel negative OB negative supportive care monitor H&H, prn transfusions ppi GTF GT site care daily/prn abx bowel regime fu labs Subjective ROS Limited/Unobtainable: No Allergies: Coded Allergies: AZTREONAM (Verified Allergy, Unknown, 05/13/18) Objective Last 24 Hour Vital Signs Date Time Temp Pulse Resp B/P (MAP) Pulse Ox O2 Delivery O2 Flow Rate FiO2 05/31/18 09:13 79 16 30 05/31/18 08:00 30 05/31/18 08:00 75 05/31/18 08:00 Mechanical Ventilator 05/31/18 08:00 98.1 73 16 120/76 (91) 99 98.1 05/31/18 07:24 69 16 30 05/31/18 05:16 74 18 30 05/31/18 04:00 Mechanical Ventilator 05/31/18 04:00 30 05/31/18 04:00 76 05/31/18 04:00 98.3 70 19 127/81 (96) 100 98.3 05/31/18 03:22 80 18 30 05/31/18 01:22 72 18 30 05/31/18 00:00 30 05/31/18 00:00 Mechanical Ventilator 05/31/18 00:00 79 05/31/18 00:00 98.1 80 18 135/72 (93) 100 98.1 05/30/18 22:52 78 18 30 05/30/18 21:29 90 19 30 05/30/18 20:00 Mechanical Ventilator 05/30/18 20:00 98.2 70 19 133/71 (91) 100 98.2 05/30/18 20:00 30 05/30/18 20:00 70 05/30/18 18:31 71 16 30 05/30/18 16:38 75 17 30 05/30/18 16:00 Mechanical Ventilator 05/30/18 16:00 97.5 70 17 126/77 (93) 100 97.5 05/30/18 16:00 69 05/30/18 16:00 30 05/30/18 14:55 66 16 30 05/30/18 13:10 68 16 30 05/30/18 12:00 Mechanical Ventilator 05/30/18 12:00 64 05/30/18 12:00 98.1 65 16 129/76 (93) 100 98.1 05/30/18 12:00 30 05/30/18 10:56 66 17 30 Intake and Output 05/30/18 05/31/18 19:00 07:00 Intake Total 985 ml 600 ml Output Total 800 ml Balance 185 ml 600 ml Free Water 150 ml 100 ml IV Total 305 ml Tube Feeding 530 ml 500 ml Output Urine Total 550 ml Stool Total 250 ml Laboratory Tests 05/31/18 04:00: White Blood Count 8.7, Red Blood Count 4.61L, Hemoglobin 12.9L, Hematocrit 40.3L , Mean Corpuscular Volume 87, Mean Corpuscular Hemoglobin 28.0, Mean Corpuscular Hemoglobin Concent 32.0, Red Cell Distribution Width 16.4H, Platelet Count 315, Mean Platelet Volume 7.3, Neutrophils (%) (Auto) 64.1, Lymphocytes (%) (Auto) 18.4L, Monocytes (%) (Auto) 10.9H, Eosinophils (%) (Auto ) 5.3H, Basophils (%) (Auto) 1.3, Sodium Level 133L, Potassium Level 4.1, Chloride Level 100, Carbon Dioxide Level 22, Anion Gap 11, Blood Urea Nitrogen 14, Creatinine 0.9, Estimat Glomerular Filtration Rate > 60, Glucose Level 96, Calcium Level 10.0, Phosphorus Level 1.9L, Magnesium Level 2.1 Height (Feet): 6 Weight (Pounds): 198 General Appearance: no apparent distress EENT: normal ENT inspection Neck: supple Cardiovascular: normal rate Respiratory/Chest: decreased breath sounds Abdomen: normal bowel sounds, non tender, soft Extremities: non-tender Dae Prater MD May 31, 2018 10:01
--- NOTE | 2018-05-31 10:39 | Pulmonolgy Critical Care Note ---
Critical Care - Asmt/Plan Problems: (1) Acute on chronic respiratory failure (2) Acute on chronic renal insufficiency (3) Severe sepsis (4) Vegetative state (5) Colostomy in place (6) Diabetes mellitus Respiratory: monitor respiratory rate, adjust FIO2, CXR Cardiac: continue to monitor HR/BP Renal: F/U I&O Infectious Disease: check cultures, continue antibiotics Gastrointestinal: continue feedings/current rate Endocrine: monitor blood sugar, check TSH, check HgA1C Hematologic: monitor H/H, transfuse if hgb<8.5 Neurologic: PRN Morphine, keep patient comfortable Disposition: keep in ICU Notes Reviewed: cardio, renal Discussed with: nurses, consultants, 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 - Objective Last 24 Hour Vital Signs Date Time Temp Pulse Resp B/P (MAP) Pulse Ox O2 Delivery O2 Flow Rate FiO2 05/31/18 09:13 79 16 30 05/31/18 08:00 30 05/31/18 08:00 75 05/31/18 08:00 Mechanical Ventilator 05/31/18 08:00 98.1 73 16 120/76 (91) 99 98.1 05/31/18 07:24 69 16 30 05/31/18 05:16 74 18 30 05/31/18 04:00 Mechanical Ventilator 05/31/18 04:00 30 05/31/18 04:00 76 05/31/18 04:00 98.3 70 19 127/81 (96) 100 98.3 05/31/18 03:22 80 18 30 05/31/18 01:22 72 18 30 05/31/18 00:00 30 05/31/18 00:00 Mechanical Ventilator 05/31/18 00:00 79 05/31/18 00:00 98.1 80 18 135/72 (93) 100 98.1 05/30/18 22:52 78 18 30 05/30/18 21:29 90 19 30 05/30/18 20:00 Mechanical Ventilator 05/30/18 20:00 98.2 70 19 133/71 (91) 100 98.2 05/30/18 20:00 30 05/30/18 20:00 70 05/30/18 18:31 71 16 30 05/30/18 16:38 75 17 30 05/30/18 16:00 Mechanical Ventilator 05/30/18 16:00 97.5 70 17 126/77 (93) 100 97.5 05/30/18 16:00 69 05/30/18 16:00 30 05/30/18 14:55 66 16 30 05/30/18 13:10 68 16 30 05/30/18 12:00 Mechanical Ventilator 05/30/18 12:00 64 05/30/18 12:00 98.1 65 16 129/76 (93) 100 98.1 05/30/18 12:00 30 05/30/18 10:56 66 17 30 Status: awake Condition: critical Neck: full ROM Heart: HR/BP stable, regular Abdomen: non-tender, feeding tube Extremities: no C/C/E Decubiti: location Accucheck: 113 Critical Care - Subjective ROS Limited/Unobtainable: Yes Condition: critical FI02: 30 Vent Support Breath Rate: 16 Vent Support Mode: AC Vent Tidal Volume: 600 Sputum Amount: Moderate PEEP: 5.0 PIP: 32 Tube Feeding Amount: 50 I&O: Intake and Output 05/30/18 05/31/18 19:00 07:00 Intake Total 985 ml 600 ml Output Total 800 ml Balance 185 ml 600 ml Free Water 150 ml 100 ml IV Total 305 ml Tube Feeding 530 ml 500 ml Output Urine Total 550 ml Stool Total 250 ml Labs: Laboratory Tests Test 05/31/18 04:00 White Blood Count 8.7 K/UL (4.8-10.8) Red Blood Count 4.61 M/UL (4.70-6.10) L Hemoglobin 12.9 G/DL (14.2-18.0) L Hematocrit 40.3 % (42.0-52.0) L Mean Corpuscular Volume 87 FL (80-99) Mean Corpuscular Hemoglobin 28.0 PG (27.0-31.0) Mean Corpuscular Hemoglobin Concent 32.0 G/DL (32.0-36.0) Red Cell Distribution Width 16.4 % (11.6-14.8) H Platelet Count 315 K/UL (150-450) Mean Platelet Volume 7.3 FL (6.5-10.1) Neutrophils (%) (Auto) 64.1 % (45.0-75.0) Lymphocytes (%) (Auto) 18.4 % (20.0-45.0) L Monocytes (%) (Auto) 10.9 % (1.0-10.0) H Eosinophils (%) (Auto) 5.3 % (0.0-3.0) H Basophils (%) (Auto) 1.3 % (0.0-2.0) Sodium Level 133 MMOL/L (136-145) L Potassium Level 4.1 MMOL/L (3.5-5.1) Chloride Level 100 MMOL/L (98-107) Carbon Dioxide Level 22 MMOL/L (21-32) Anion Gap 11 mmol/L (5-15) Blood Urea Nitrogen 14 mg/dL (7-18) Creatinine 0.9 MG/DL (0.55-1.30) Estimat Glomerular Filtration Rate > 60 mL/min (>60) Glucose Level 96 MG/DL (74-106) Calcium Level 10.0 MG/DL (8.5-10.1) Phosphorus Level 1.9 MG/DL (2.5-4.9) L Magnesium Level 2.1 MG/DL (1.8-2.4) Nico Goetz MD May 31, 2018 10:39
[2018-05-31] MEDS ORDERED: Sodium Phosphate 30 MM in NS 275 ML IVPB ONE (11:00)
--- NOTE | 2018-05-31 11:26 | Cardiology Progress Note ---
Assessment/Plan Assessment/Plan Assessment: (1) Acute on chronic respiratory failure (2) Acute on chronic renal insufficiency (3) Severe sepsis (4) Vegetative state (5) Colostomy in place (6) Diabetes mellitus Plan: Continue antibiotics Echocardiogram reviewed- no endocarditis OJE for next Sunday Patient afebrile, normal WBC otherwise Continue trach care and tube feeds Continue keppra for seizures Subjective Cardiovascular: Reports: no symptoms Respiratory: Reports: no symptoms Gastrointestinal/Abdominal: Reports: no symptoms Genitourinary: Reports: no symptoms Subjective Afebrile, vitals stable, Telemetry shows sinus rhythm. No acute events Ventilator settings: portex 7, AC 16, TV: 600, FiO2: 30%, PEEP: 5. GT is in place running glucerna 1.2 @ 65 ml/hr. No residual present. Colostomy bag in place. JOE was supposed to be done today but OJE scheduled for 06/03/18 at 1100, no other opening downstairs. Objective Last 24 Hour Vital Signs Date Time Temp Pulse Resp B/P (MAP) Pulse Ox O2 Delivery O2 Flow Rate FiO2 05/31/18 11:10 75 19 30 05/31/18 09:13 79 16 30 05/31/18 08:00 30 05/31/18 08:00 75 05/31/18 08:00 Mechanical Ventilator 05/31/18 08:00 98.1 73 16 120/76 (91) 99 98.1 05/31/18 07:24 69 16 30 05/31/18 05:16 74 18 30 05/31/18 04:00 Mechanical Ventilator 05/31/18 04:00 30 05/31/18 04:00 76 05/31/18 04:00 98.3 70 19 127/81 (96) 100 98.3 05/31/18 03:22 80 18 30 05/31/18 01:22 72 18 30 05/31/18 00:00 30 05/31/18 00:00 Mechanical Ventilator 05/31/18 00:00 79 05/31/18 00:00 98.1 80 18 135/72 (93) 100 98.1 05/30/18 22:52 78 18 30 05/30/18 21:29 90 19 30 05/30/18 20:00 Mechanical Ventilator 05/30/18 20:00 98.2 70 19 133/71 (91) 100 98.2 05/30/18 20:00 30 05/30/18 20:00 70 05/30/18 18:31 71 16 30 05/30/18 16:38 75 17 30 05/30/18 16:00 Mechanical Ventilator 05/30/18 16:00 97.5 70 17 126/77 (93) 100 97.5 05/30/18 16:00 69 05/30/18 16:00 30 05/30/18 14:55 66 16 30 05/30/18 13:10 68 16 30 05/30/18 12:00 Mechanical Ventilator 05/30/18 12:00 64 05/30/18 12:00 98.1 65 16 129/76 (93) 100 98.1 05/30/18 12:00 30 General Appearance: no apparent distress, on vent EENT: PERRL/EOMI, normal ENT inspection Neck: non-tender, normal alignment Rhythm: NSR Cardiovascular: normal peripheral pulses, normal rate Respiratory/Chest: chest wall non-tender, normal breath sounds Abdomen: normal bowel sounds, non tender Extremities: normal range of motion, non-tender Neurologic: pharmacy service 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 II-XII grossly normal Intake and Output 05/30/18 05/31/18 19:00 07:00 Intake Total 985 ml 600 ml Output Total 800 ml Balance 185 ml 600 ml Free Water 150 ml 100 ml IV Total 305 ml Tube Feeding 530 ml 500 ml Output Urine Total 550 ml Stool Total 250 ml Laboratory Tests Test 05/31/18 04:00 White Blood Count 8.7 K/UL (4.8-10.8) Red Blood Count 4.61 M/UL (4.70-6.10) L Hemoglobin 12.9 G/DL (14.2-18.0) L Hematocrit 40.3 % (42.0-52.0) L Mean Corpuscular Volume 87 FL (80-99) Mean Corpuscular Hemoglobin 28.0 PG (27.0-31.0) Mean Corpuscular Hemoglobin Concent 32.0 G/DL (32.0-36.0) Red Cell Distribution Width 16.4 % (11.6-14.8) H Platelet Count 315 K/UL (150-450) Mean Platelet Volume 7.3 FL (6.5-10.1) Neutrophils (%) (Auto) 64.1 % (45.0-75.0) Lymphocytes (%) (Auto) 18.4 % (20.0-45.0) L Monocytes (%) (Auto) 10.9 % (1.0-10.0) H Eosinophils (%) (Auto) 5.3 % (0.0-3.0) H Basophils (%) (Auto) 1.3 % (0.0-2.0) Sodium Level 133 MMOL/L (136-145) L Potassium Level 4.1 MMOL/L (3.5-5.1) Chloride Level 100 MMOL/L (98-107) Carbon Dioxide Level 22 MMOL/L (21-32) Anion Gap 11 mmol/L (5-15) Blood Urea Nitrogen 14 mg/dL (7-18) Creatinine 0.9 MG/DL (0.55-1.30) Estimat Glomerular Filtration Rate > 60 mL/min (>60) Glucose Level 96 MG/DL (74-106) Calcium Level 10.0 MG/DL (8.5-10.1) Phosphorus Level 1.9 MG/DL (2.5-4.9) L Magnesium Level 2.1 MG/DL (1.8-2.4) Kali Owens M.D. May 31, 2018 11:26
[2018-05-31 12:00] VITALS: BP 118/64
[2018-05-31 16:00] VITALS: BP 120/81
[2018-05-31 20:00] VITALS: BP 131/79
[2018-05-31] MEDS: Dyna-Hex 2% Top Sol 2oz TOPIC SCH (21:27)
[2018-05-31] MEDS: Miralax 17gm pkt GT SCH (21:27)
[2018-06-01] VITALS (7 sets, daily range): BP systolic 120–135; BP diastolic 67–89
[2018-06-01] MEDS: Vancomycin 1.5 GM/D5W 250ML IVPB SCH ×2 (02:26→20:38)
[2018-06-01 05:01] LABS: BASOPHILS % (AUTO) 1.9 % (0.0-2.0); EOSINOPHILS % (AUTO) 3.6 % (0.0-3.0); HEMOGLOBIN 12.7 G/DL (14.2-18.0); LYMPHOCYTES % (AUTO) 25.4 % (20.0-45.0); MEAN CORPUSCULAR VOLUME 86 FL (80-99); MONOCYTES % (AUTO) 10.6 % (1.0-10.0); NEUTROPHILS % (AUTO) 58.5 % (45.0-75.0); PLATELET COUNT 327 K/UL (150-450); WHITE BLOOD COUNT 8.1 K/UL (4.8-10.8)
[2018-06-01 05:10] LABS: ANION GAP 11 mmol/L (5-15); BLOOD UREA NITROGEN 16 mg/dL (7-18); CALCIUM 9.8 MG/DL (8.5-10.1); CARBON DIOXIDE 21 MMOL/L (21-32); CHLORIDE 100 MMOL/L (98-107); CREATININE 1.1 MG/DL (0.55-1.30); PHOSPHORUS 2.4 MG/DL (2.5-4.9); POTASSIUM 3.8 MMOL/L (3.5-5.1); SODIUM 132 MMOL/L (136-145)
[2018-06-01] MEDS: levETIRAcetam 500mg/5ml Liquid GT SCH ×3 (05:37→22:05)
[2018-06-01] MEDS: NovoLOG Insulin Flexpen SUBQ SCH ×3 (05:38→18:00)
--- NOTE | 2018-06-01 07:55 | Infectious Diseases Prog Note ---
Assessment/Plan Assessment/Plan Sepsis, resolving- 2ry to UTI and Bacteremia Blood cultures postive 01/23 bottles with GPC Unclear source will need to R/O Endocarditis Possible PNA initially -u/a wbc 40-60, nit neg, leuk +2; ucx >100k E. aerogenes (S cefepime, cipro/ levo; R Zosyn) -BCX 01/23 E. aerogenes, prob Amp C (S cefepime, cipro/levo; R Zosyn), P. mirabilis ESBL (S Zosyn, Ertapenem); repeta 05/16 10/25 CoNS (suspect contaminant) , 05/18 Staph f/u final results if CoNS may need TTE and IE work up. -CXR 05/17: Increased left pleural effusion, over 3 days. Overall decreased interstitial congestion. Right infrahilar atelectasis -CXR: Cardiomegaly. Mild interstitial congestion. Suspect small bilateral pleural effusions -CT abd/p: Right lower quadrant double barrel colostomy, as described. Small peristomal hernia contains bowel loops without evidence of obstruction or strangulation. Left renal staghorn calculus. Bilateral intrarenal calyceal calculi. Borderline hydronephrosis on the right without evidence of downstream obstructive lesion. May indicate mild ureteral pelvic junction obstruction. Somewhat atrophic left kidney. Inspissated contrast ball within the distal sigmoid colon. Gastrostomy in good position. Nonspecific bilateral perinephric fat stranding, could indicate pyelonephritis or could be chronic. Newberry catheter in place. Apparent bladder wall thickening, possibly an artifact of under distention but cystitis is not excludable, particularly in view of mild perivesical fat stranding. Bilateral pulmonary parenchymal atelectasis and consolidation -Blood Cx from PICC CoNS 2/2 bottles Peripheral Neg- (May be contaminant but will repeat blood Cx given new leukocytosis if positive will need ECHO. - Blood Cx 05/20/18 - GPC - Will need TTE for IE work up and the PICC removed. PICC line infection/colonization - TTE negative. Blood cultures only positive from PICC. Not positive from Peripheral - Will repeat blood cultures x 1 to confirm clearance after PICC replaced. Los suspicion for IE. - PICC replace 05/22/18 Fever/Leukocytosis; Resolved - i recurs Re-evaluate lines, Diarrhea? C. dif? DIVYA, improving Lactic acidosis, resolved chronic resp failure trach/vent dependant BPH GERD HTN DM2 seizure disorder colostomy s/p GT constipation VRE and MRSA colonized Plan: - Continue empiric IV Vancomycin #14 for bacteremia/line infection - Abx end date 06/05/18 if JOE negative - Recommend Transesophageal ECHO to r/o IE -Last day of Ertapenem #14/ for Amp-C Enterobacter and ESBL P.mirabilis bacteremia ; will treat for 14 days - End date 05/30/18 -05/17 SP Zosyn #4 - Monitor CBC/CMP, temperatures - F/U JOE - Pulmonary care Thank you for this consultation. Will continue to follow along with you. Subjective Allergies: Coded Allergies: AZTREONAM (Verified Allergy, Unknown, 05/13/18) Subjective No acute changes On Vent still and stable at 30% Low grade fever last night Objective Vital Signs Last 24 Hour Vital Signs Date Time Temp Pulse Resp B/P (MAP) Pulse Ox O2 Delivery O2 Flow Rate FiO2 06/01/18 07:02 78 17 30 06/01/18 05:15 83 19 30 06/01/18 04:00 30 06/01/18 04:00 Mechanical Ventilator 06/01/18 04:00 99.7 77 30 128/78 (95) 98 99.7 06/01/18 03:52 98 06/01/18 02:45 82 18 30 06/01/18 00:59 99.0 06/01/18 00:58 81 18 30 06/01/18 00:00 100.5 78 34 135/79 (97) 99 100.5 06/01/18 00:00 Mechanical Ventilator 06/01/18 00:00 100.5 05/31/18 23:43 81 05/31/18 23:23 86 18 30 05/31/18 21:06 85 18 30 05/31/18 20:00 99.8 81 29 131/79 (96) 99 99.8 05/31/18 20:00 30 05/31/18 20:00 Mechanical Ventilator 05/31/18 19:48 83 05/31/18 18:45 81 18 30 05/31/18 16:50 85 18 30 05/31/18 16:00 97.9 84 16 120/81 (94) 99 97.9 05/31/18 16:00 30 8/10/18 16:00 Mechanical Ventilator 05/31/18 16:00 82 05/31/18 14:45 92 18 30 05/31/18 13:12 81 16 30 05/31/18 12:12 80 05/31/18 12:00 97.5 81 17 118/64 (82) 99 97.5 05/31/18 12:00 30 05/31/18 12:00 Mechanical Ventilator 05/31/18 11:10 75 19 30 05/31/18 09:13 79 16 30 05/31/18 08:00 30 05/31/18 08:00 75 05/31/18 08:00 Mechanical Ventilator 05/31/18 08:00 98.1 73 16 120/76 (91) 99 98.1 Height (Feet): 6 Weight (Pounds): 200 Objective GENERAL: NAD. On vent 30% O2, Not responsive to voice HEENT: NCAT, DMM, Tracheostomy (C/D/I) PULM: Mild crackles in bases B/L, No wheezing CARDIOVASCULAR: RRR, S1 and S2. No M/R/G. ABDOMEN: Obese and nondistended. +BS, The G-tube and stoma noted. EXTREMITIES: No edema. 1+ pedal pulses. Laboratory Tests Test 06/01/18 04:10 White Blood Count 8.1 K/UL (4.8-10.8) Red Blood Count 4.40 M/UL (4.70-6.10) L Hemoglobin 12.7 G/DL (14.2-18.0) L Hematocrit 38.0 % (42.0-52.0) L Mean Corpuscular Volume 86 FL (80-99) Mean Corpuscular Hemoglobin 28.9 PG (27.0-31.0) Mean Corpuscular Hemoglobin Concent 33.4 G/DL (32.0-36.0) Red Cell Distribution Width 16.0 % (11.6-14.8) H Platelet Count 327 K/UL (150-450) Mean Platelet Volume 7.5 FL (6.5-10.1) Neutrophils (%) (Auto) 58.5 % (45.0-75.0) Lymphocytes (%) (Auto) 25.4 % (20.0-45.0) Monocytes (%) (Auto) 10.6 % (1.0-10.0) H Eosinophils (%) (Auto) 3.6 % (0.0-3.0) H Basophils (%) (Auto) 1.9 % (0.0-2.0) Sodium Level 132 MMOL/L (136-145) L Potassium Level 3.8 MMOL/L (3.5-5.1) Chloride Level 100 MMOL/L (98-107) Carbon Dioxide Level 21 MMOL/L (21-32) Anion Gap 11 mmol/L (5-15) Blood Urea Nitrogen 16 mg/dL (7-18) Creatinine 1.1 MG/DL (0.55-1.30) Estimat Glomerular Filtration Rate > 60 mL/min (>60) Glucose Level 120 MG/DL (74-106) H Calcium Level 9.8 MG/DL (8.5-10.1) Phosphorus Level 2.4 MG/DL (2.5-4.9) L Current Medications Medications (Trade) Dose Ordered Sig/Va Route PRN Reason Start Time Stop Time Status Last Admin Dose Admin Acetaminophen (Tylenol) 650 mg Q4H PRN ORAL FEVER 05/16/18 14:00 06/13/18 09:59 06/01/18 00:00 Baclofen (Lioresal) 10 mg EVERY 8 HOURS GT 05/20/18 14:00 06/13/18 12:59 06/01/18 05:36 Chlorhexidine Gluconate (Rebecca-Hex 2%) 1 applic DAILY@2000 TOPIC 05/16/18 20:00 06/13/18 19:59 05/31/18 21:27 Dextrose (Dextrose 50%) 25 ml STAT PRN IV Hypoglycemia 05/17/18 08:45 06/14/18 08:44 Dextrose (Dextrose 50%) 50 ml STAT PRN IV Hypoglycemia 05/17/18 08:45 06/14/18 08:44 Heparin Sodium (Porcine) (Heparin 5000 units/ml) 5,000 units EVERY 12 HOURS SUBQ 05/16/18 21:00 06/13/18 20:59 05/31/18 21:29 Insulin Aspart (NovoLOG) Q6HR SUBQ 05/16/18 18:00 06/14/18 11:29 06/01/18 05:38 Lansoprazole (Prevacid) 30 mg DAILY GT 05/17/18 09:00 06/15/18 08:59 05/31/18 08:12 Levetiracetam (Keppra) 1,000 mg Q8HR GT 05/16/18 14:00 06/13/18 12:59 06/01/18 05:37 Ondansetron HCl (Zofran) 4 mg Q6H PRN IVP Nausea & Vomiting 05/16/18 16:00 06/13/18 09:59 Polyethylene Glycol (Miralax) 17 gm BEDTIME GT 05/20/18 21:00 06/14/18 20:59 05/31/18 21:27 Vancomycin HCl (Vanco rx to dose) 1 ea DAILY PRN MISC PER RX PROTOCOL 05/18/18 13:15 06/17/18 13:14 Vancomycin HCl/ Dextrose 250 ml @ 125 mls/hr Q18H IVPB 05/29/18 21:00 06/05/18 20:59 06/01/18 02:26 Kali Richter M.D. Jun 01, 2018 07:55
--- NOTE | 2018-06-01 08:51 | Pulmonolgy Critical Care Note ---
Critical Care - Asmt/Plan Problems: (1) Acute on chronic respiratory failure (2) Acute on chronic renal insufficiency (3) Severe sepsis (4) Vegetative state (5) Colostomy in place (6) Diabetes mellitus Respiratory: monitor respiratory rate, adjust FIO2 Cardiac: continue to monitor HR/BP Renal: F/U I&O Infectious Disease: check cultures Gastrointestinal: continue feedings/current rate Endocrine: monitor blood sugar, check TSH Hematologic: transfuse if hgb<8.5 Neurologic: PRN Morphine, keep patient comfortable Prophylaxis: Protonix Notes Reviewed: cardio, renal Discussed with: nurses, consultants, manager casefield nurse case manager - Objective Last 24 Hour Vital Signs Date Time Temp Pulse Resp B/P (MAP) Pulse Ox O2 Delivery O2 Flow Rate FiO2 06/01/18 07:02 78 17 30 06/01/18 05:15 83 19 30 06/01/18 04:00 30 06/01/18 04:00 Mechanical Ventilator 06/01/18 04:00 99.7 77 30 128/78 (95) 98 99.7 06/01/18 03:52 98 06/01/18 02:45 82 18 30 06/01/18 00:59 99.0 06/01/18 00:58 81 18 30 06/01/18 00:00 100.5 78 34 135/79 (97) 99 100.5 06/01/18 00:00 Mechanical Ventilator 06/01/18 00:00 100.5 05/31/18 23:43 81 05/31/18 23:23 86 18 30 05/31/18 21:06 85 18 30 05/31/18 20:00 99.8 81 29 131/79 (96) 99 99.8 05/31/18 20:00 30 05/31/18 20:00 Mechanical Ventilator 05/31/18 19:48 83 05/31/18 18:45 81 18 30 05/31/18 16:50 85 18 30 05/31/18 16:00 97.9 84 16 120/81 (94) 99 97.9 05/31/18 16:00 30 05/31/18 16:00 Mechanical Ventilator 05/31/18 16:00 82 05/31/18 14:45 92 18 30 05/31/18 13:12 81 16 30 05/31/18 12:12 80 05/31/18 12:00 97.5 81 17 118/64 (82) 99 97.5 05/31/18 12:00 30 05/31/18 12:00 Mechanical Ventilator 05/31/18 11:10 75 19 30 05/31/18 09:13 79 16 30 Status: awake Condition: critical Neck: full ROM Lungs: clear Heart: HR/BP unstable Abdomen: soft, non-tender, feeding tube Extremities: no C/C/E Accucheck: 113 Critical Care - Subjective ROS Limited/Unobtainable: Yes Condition: critical EKG Rhythm: Sinus Rhythm FI02: 30 Vent Support Breath Rate: 16 Vent Support Mode: AC Vent Tidal Volume: 600 Sputum Amount: Small PEEP: 5.0 PIP: 30 Tube Feeding Amount: 50 I&O: Intake and Output 05/31/18 06/01/18 19:00 07:00 Intake Total 1205.0 ml 980.0 ml Output Total 900 ml 475 ml Balance 305.0 ml 505.0 ml Free Water 120 ml IV Total 535.0 ml 250.0 ml Tube Feeding 550 ml 550 ml Other 120 ml 60 ml Output Urine Total 500 ml 200 ml Stool Total 400 ml 275 ml Labs: Laboratory Tests Test 06/01/18 04:10 White Blood Count 8.1 K/UL (4.8-10.8) Red Blood Count 4.40 M/UL (4.70-6.10) L Hemoglobin 12.7 G/DL (14.2-18.0) L Hematocrit 38.0 % (42.0-52.0) L Mean Corpuscular Volume 86 FL (80-99) Mean Corpuscular Hemoglobin 28.9 PG (27.0-31.0) Mean Corpuscular Hemoglobin Concent 33.4 G/DL (32.0-36.0) Red Cell Distribution Width 16.0 % (11.6-14.8) H Platelet Count 327 K/UL (150-450) Mean Platelet Volume 7.5 FL (6.5-10.1) Neutrophils (%) (Auto) 58.5 % (45.0-75.0) Lymphocytes (%) (Auto) 25.4 % (20.0-45.0) Monocytes (%) (Auto) 10.6 % (1.0-10.0) H Eosinophils (%) (Auto) 3.6 % (0.0-3.0) H Basophils (%) (Auto) 1.9 % (0.0-2.0) Sodium Level 132 MMOL/L (136-145) L Potassium Level 3.8 MMOL/L (3.5-5.1) Chloride Level 100 MMOL/L (98-107) Carbon Dioxide Level 21 MMOL/L (21-32) Anion Gap 11 mmol/L (5-15) Blood Urea Nitrogen 16 mg/dL (7-18) Creatinine 1.1 MG/DL (0.55-1.30) Estimat Glomerular Filtration Rate > 60 mL/min (>60) Glucose Level 120 MG/DL (74-106) H Calcium Level 9.8 MG/DL (8.5-10.1) Phosphorus Level 2.4 MG/DL (2.5-4.9) L Nico Goetz MD Jun 01, 2018 08:51
--- NOTE | 2018-06-01 09:01 | Nephrology Progress Note ---
Assessment/Plan Assessment/Plan 1. DIVYA- resolved 2. Sepsis- on Abx. 3. Chronic Resp FL- trached on vent - awaiting DC 4. Hyponatremia - Na stable 5. SZ- Keppra -monitor NA 6. Hypophos- replace today with NaPhos Subjective Date patient seen: Jun 01, 2018 Time patient seen: 08:49 ROS Limited/Unobtainable: Yes Allergies: Coded Allergies: AZTREONAM (Verified Allergy, Unknown, 05/13/18) Subjective Patient trached/vent. Stable Objective Last 24 Hour Vital Signs Date Time Temp Pulse Resp B/P (MAP) Pulse Ox O2 Delivery O2 Flow Rate FiO2 06/01/18 07:02 78 17 30 06/01/18 05:15 83 19 30 06/01/18 04:00 30 06/01/18 04:00 Mechanical Ventilator 06/01/18 04:00 99.7 77 30 128/78 (95) 98 99.7 06/01/18 03:52 98 06/01/18 02:45 82 18 30 06/01/18 00:59 99.0 06/01/18 00:58 81 18 30 06/01/18 00:00 100.5 78 34 135/79 (97) 99 100.5 06/01/18 00:00 Mechanical Ventilator 06/01/18 00:00 100.5 05/31/18 23:43 81 05/31/18 23:23 86 18 30 05/31/18 21:06 85 18 30 05/31/18 20:00 99.8 81 29 131/79 (96) 99 99.8 05/31/18 20:00 30 05/31/18 20:00 Mechanical Ventilator 05/31/18 19:48 83 05/31/18 18:45 81 18 30 05/31/18 16:50 85 18 30 05/31/18 16:00 97.9 84 16 120/81 (94) 99 97.9 05/31/18 16:00 30 05/31/18 16:00 Mechanical Ventilator 05/31/18 16:00 82 05/31/18 14:45 92 18 30 05/31/18 13:12 81 16 30 05/31/18 12:12 80 05/31/18 12:00 97.5 81 17 118/64 (82) 99 97.5 05/31/18 12:00 30 05/31/18 12:00 Mechanical Ventilator 05/31/18 11:10 75 19 30 05/31/18 09:13 79 16 30 Intake and Output 05/31/18 06/01/18 19:00 07:00 Intake Total 1205.0 ml 980.0 ml Output Total 900 ml 475 ml Balance 305.0 ml 505.0 ml Free Water 120 ml IV Total 535.0 ml 250.0 ml Tube Feeding 550 ml 550 ml Other 120 ml 60 ml Output Urine Total 500 ml 200 ml Stool Total 400 ml 275 ml Laboratory Tests 06/01/18 04:10: White Blood Count 8.1, Red Blood Count 4.40L, Hemoglobin 12.7L, Hematocrit 38.0L , Mean Corpuscular Volume 86, Mean Corpuscular Hemoglobin 28.9, Mean Corpuscular Hemoglobin Concent 33.4, Red Cell Distribution Width 16.0H, Platelet Count 327, Mean Platelet Volume 7.5, Neutrophils (%) (Auto) 58.5, Lymphocytes (%) (Auto) 25.4, Monocytes (%) (Auto) 10.6H, Eosinophils (%) (Auto) 3.6H, Basophils (%) (Auto) 1.9, Sodium Level 132L, Potassium Level 3.8, Chloride Level 100, Carbon Dioxide Level 21, Anion Gap 11, Blood Urea Nitrogen 16, Creatinine 1.1, Estimat Glomerular Filtration Rate > 60, Glucose Level 120H , Calcium Level 9.8, Phosphorus Level 2.4L Height (Feet): 6 Weight (Pounds): 200 General Appearance: WD/WN, no apparent distress EENT: PERRL/EOMI Neck: non-tender, normal alignment Cardiovascular: normal peripheral pulses, normal rate Respiratory/Chest: lungs clear, normal breath sounds Abdomen: non tender, soft Edema: no edema noted Arm (L), no edema noted Arm (R), no edema noted Leg (L), no edema noted Leg (R), no edema noted Pedal (L), no edema noted Pedal (R), no edema noted Generalized Mir Gann M.D. Jun 01, 2018 09:01
[2018-06-01] MEDS: Heparin 5000 units/ml inj SUBQ SCH ×2 (09:09→20:39)
--- NOTE | 2018-06-01 09:48 | Cardiology Progress Note ---
Assessment/Plan Status: stable Assessment/Plan Assessment: (1) Acute on chronic respiratory failure (2) Acute on chronic renal insufficiency (3) Severe sepsis (4) Vegetative state (5) Colostomy in place (6) Diabetes mellitus Plan: Continue antibiotics Echocardiogram reviewed- no endocarditis JOE for next Sunday Patient afebrile, normal WBC otherwise Continue trach care and tube feeds Continue keppra for seizures Subjective Cardiovascular: Reports: no symptoms Respiratory: Reports: no symptoms Gastrointestinal/Abdominal: Reports: no symptoms Genitourinary: Reports: no symptoms Subjective Afebrile, vitals stable, Telemetry shows sinus rhythm. No acute events Ventilator settings: portex 7, AC 16, TV: 600, FiO2: 30%, PEEP: 5. GT is in place running glucerna 1.2 @ 65 ml/hr. No residual present. Colostomy bag in place. JOE was supposed to be done today but JOE scheduled for 06/03/18 at 1100, no other opening downstairs. Objective Last 24 Hour Vital Signs Date Time Temp Pulse Resp B/P (MAP) Pulse Ox O2 Delivery O2 Flow Rate FiO2 06/01/18 09:23 77 16 30 06/01/18 08:00 98.2 79 16 134/89 (104) 100 98.2 06/01/18 08:00 30 06/01/18 08:00 Mechanical Ventilator 06/01/18 07:02 78 17 30 06/01/18 05:15 83 19 30 06/01/18 04:00 30 06/01/18 04:00 Mechanical Ventilator 06/01/18 04:00 99.7 77 30 128/78 (95) 98 99.7 06/01/18 03:52 98 06/01/18 02:45 82 18 30 06/01/18 00:59 99.0 06/01/18 00:58 81 18 30 06/01/18 00:00 100.5 78 34 135/79 (97) 99 100.5 06/01/18 00:00 Mechanical Ventilator 06/01/18 00:00 100.5 05/31/18 23:43 81 05/31/18 23:23 86 18 30 05/31/18 21:06 85 18 30 05/31/18 20:00 99.8 81 29 131/79 (96) 99 99.8 05/31/18 20:00 30 05/31/18 20:00 Mechanical Ventilator 05/31/18 19:48 83 05/31/18 18:45 81 18 30 05/31/18 16:50 85 18 30 05/31/18 16:00 97.9 84 16 120/81 (94) 99 97.9 05/31/18 16:00 30 05/31/18 16:00 Mechanical Ventilator 05/31/18 16:00 82 05/31/18 14:45 92 18 30 05/31/18 13:12 81 16 30 05/31/18 12:12 80 05/31/18 12:00 97.5 81 17 118/64 (82) 99 97.5 05/31/18 12:00 30 05/31/18 12:00 Mechanical Ventilator 05/31/18 11:10 75 19 30 General Appearance: no apparent distress, alert, on vent EENT: PERRL/EOMI, normal ENT inspection Neck: non-tender, normal alignment Rhythm: NSR Cardiovascular: normal peripheral pulses, normal rate, regular rhythm Respiratory/Chest: chest wall non-tender, lungs clear Abdomen: normal bowel sounds, non tender Extremities: normal range of motion Neurologic: guest room attendant II-XII grossly normal Intake and Output 05/31/18 06/01/18 19:00 07:00 Intake Total 1205.0 ml 1030.0 ml Output Total 900 ml 475 ml Balance 305.0 ml 555.0 ml Free Water 120 ml IV Total 535.0 ml 250.0 ml Tube Feeding 550 ml 600 ml Other 120 ml 60 ml Output Urine Total 500 ml 200 ml Stool Total 400 ml 275 ml Laboratory Tests Test 06/01/18 04:10 White Blood Count 8.1 K/UL (4.8-10.8) Red Blood Count 4.40 M/UL (4.70-6.10) L Hemoglobin 12.7 G/DL (14.2-18.0) L Hematocrit 38.0 % (42.0-52.0) L Mean Corpuscular Volume 86 FL (80-99) Mean Corpuscular Hemoglobin 28.9 PG (27.0-31.0) Mean Corpuscular Hemoglobin Concent 33.4 G/DL (32.0-36.0) Red Cell Distribution Width 16.0 % (11.6-14.8) H Platelet Count 327 K/UL (150-450) Mean Platelet Volume 7.5 FL (6.5-10.1) Neutrophils (%) (Auto) 58.5 % (45.0-75.0) Lymphocytes (%) (Auto) 25.4 % (20.0-45.0) Monocytes (%) (Auto) 10.6 % (1.0-10.0) H Eosinophils (%) (Auto) 3.6 % (0.0-3.0) H Basophils (%) (Auto) 1.9 % (0.0-2.0) Sodium Level 132 MMOL/L (136-145) L Potassium Level 3.8 MMOL/L (3.5-5.1) Chloride Level 100 MMOL/L (98-107) Carbon Dioxide Level 21 MMOL/L (21-32) Anion Gap 11 mmol/L (5-15) Blood Urea Nitrogen 16 mg/dL (7-18) Creatinine 1.1 MG/DL (0.55-1.30) Estimat Glomerular Filtration Rate > 60 mL/min (>60) Glucose Level 120 MG/DL (74-106) H Calcium Level 9.8 MG/DL (8.5-10.1) Phosphorus Level 2.4 MG/DL (2.5-4.9) Kali Layton M.D. Jun 01, 2018 09:48
--- NOTE | 2018-06-01 09:51 | General Progress Note ---
Assessment/Plan Status: stable Assessment/Plan # Leukocytosis - Sepsis with elevated temperature of 103 degrees Fahrenheit. Had uti v bacteremia (CoNS) on abx, has improved. --> Pt on antibiotics, has received a dose of Zosyn and currently is on vancomycin q.12 h. now on cefepime --> Appreciate Infectious Disease recs --> 2D echo per ID performed on 05/22: No discrete vegetations seen, however SBE may not be excluded by transthoracic 2-D echo. --> 06/01: WBC of 8.1, wnl --> Currently afebrile # Anemia of chronic disease. No hemolysis, peripheral smear reviewed, ferritin was elevated. --> Continue to closely monitor --> Hgb goal >7 --> 06/01: Hgb 12.7 # Acute kidney injury. --> Currently on IV fluids, IV bolus given to see if the patient responds along with IV pressor as needed. --> Closely monitor with Nephrology team. # Septic shock, use antibiotic per ID services. --> potential uti, on abx and bacteremia # Respiratory failure, status post tracheostomy, on mechanical ventilation per Dr. Goetz # Hypercalcemia. Monitor PTH and calcium level. --> 05/31: 10.0, wnl The time the note was entered does not necessarily correspond to the time the patient was seen. Subjective Date patient seen: Jun 01, 2018 ROS Limited/Unobtainable: Yes Hematologic/Lymphatic: Reports: anemia Allergies: Coded Allergies: AZTREONAM (Verified Allergy, Unknown, 05/13/18) All Systems: reviewed and negative except above Subjective Pt remains on vent. No acute events. H/H stable. Vitals are stable. Low grade fever overnight, currently afebrile. DC planning. Objective Last 24 Hour Vital Signs Date Time Temp Pulse Resp B/P (MAP) Pulse Ox O2 Delivery O2 Flow Rate FiO2 06/01/18 09:23 77 16 30 06/01/18 08:00 98.2 79 16 134/89 (104) 100 98.2 06/01/18 08:00 30 06/01/18 08:00 Mechanical Ventilator 06/01/18 07:02 78 17 30 06/01/18 05:15 83 19 30 06/01/18 04:00 30 06/01/18 04:00 Mechanical Ventilator 06/01/18 04:00 99.7 77 30 128/78 (95) 98 99.7 06/01/18 03:52 98 06/01/18 02:45 82 18 30 06/01/18 00:59 99.0 06/01/18 00:58 81 18 30 06/01/18 00:00 100.5 78 34 135/79 (97) 99 100.5 06/01/18 00:00 Mechanical Ventilator 06/01/18 00:00 100.5 05/31/18 23:43 81 05/31/18 23:23 86 18 30 05/31/18 21:06 85 18 30 05/31/18 20:00 99.8 81 29 131/79 (96) 99 99.8 05/31/18 20:00 30 05/31/18 20:00 Mechanical Ventilator 05/31/18 19:48 83 05/31/18 18:45 81 18 30 05/31/18 16:50 85 18 30 05/31/18 16:00 97.9 84 16 120/81 (94) 99 97.9 05/31/18 16:00 30 05/31/18 16:00 Mechanical Ventilator 05/31/18 16:00 82 05/31/18 14:45 92 18 30 05/31/18 13:12 81 16 30 05/31/18 12:12 80 05/31/18 12:00 97.5 81 17 118/64 (82) 99 97.5 05/31/18 12:00 30 05/31/18 12:00 Mechanical Ventilator 05/31/18 11:10 75 19 30 Intake and Output 05/31/18 06/01/18 19:00 07:00 Intake Total 1205.0 ml 1030.0 ml Output Total 900 ml 475 ml Balance 305.0 ml 555.0 ml Free Water 120 ml IV Total 535.0 ml 250.0 ml Tube Feeding 550 ml 600 ml Other 120 ml 60 ml Output Urine Total 500 ml 200 ml Stool Total 400 ml 275 ml Laboratory Tests 06/01/18 04:10: White Blood Count 8.1, Red Blood Count 4.40L, Hemoglobin 12.7L, Hematocrit 38.0L , Mean Corpuscular Volume 86, Mean Corpuscular Hemoglobin 28.9, Mean Corpuscular Hemoglobin Concent 33.4, Red Cell Distribution Width 16.0H, Platelet Count 327, Mean Platelet Volume 7.5, Neutrophils (%) (Auto) 58.5, Lymphocytes (%) (Auto) 25.4, Monocytes (%) (Auto) 10.6H, Eosinophils (%) (Auto) 3.6H, Basophils (%) (Auto) 1.9, Sodium Level 132L, Potassium Level 3.8, Chloride Level 100, Carbon Dioxide Level 21, Anion Gap 11, Blood Urea Nitrogen 16, Creatinine 1.1, Estimat Glomerular Filtration Rate > 60, Glucose Level 120H , Calcium Level 9.8, Phosphorus Level 2.4L Height (Feet): 6 Weight (Pounds): 200 General Appearance: no apparent distress EENT: PERRL/EOMI Neck: normal alignment Cardiovascular: normal peripheral pulses Respiratory/Chest: no respiratory distress Abdomen: soft Jimmy Fleming MD Jun 01, 2018 09:51
[2018-06-01] MEDS ORDERED: Sodium Phosphate 30 MM in NS 275 ML IVPB ONE (10:30)
[2018-06-01] MEDS ORDERED: Tubing IV Secondary IV ONE (14:13)
[2018-06-01] MEDS ORDERED: NS 275ml ONE (14:13)
[2018-06-01] MEDS: Dyna-Hex 2% Top Sol 2oz TOPIC SCH (20:38)
[2018-06-01] MEDS: Miralax 17gm pkt GT SCH (20:38)
[2018-06-02 04:00] VITALS: BP 125/69
[2018-06-02 05:24] LABS: EOSINOPHILS % (AUTO) 5.5 % (0.0-3.0); HEMATOCRIT 37.9 % (42.0-52.0); HEMOGLOBIN 12.2 G/DL (14.2-18.0); LYMPHOCYTES % (AUTO) 28.2 % (20.0-45.0); MEAN CORPUSCULAR VOLUME 87 FL (80-99); MONOCYTES % (AUTO) 9.3 % (1.0-10.0); PLATELET COUNT 311 K/UL (150-450); RED BLOOD COUNT 4.35 M/UL (4.70-6.10); RED CELL DISTRIBUTION WIDTH 16.1 % (11.6-14.8); WHITE BLOOD COUNT 8.7 K/UL (4.8-10.8)
[2018-06-02] MEDS: levETIRAcetam 500mg/5ml Liquid GT SCH ×3 (05:44→21:11)
[2018-06-02] MEDS: NovoLOG Insulin Flexpen SUBQ SCH ×5 (05:52→23:43)
[2018-06-02 06:34] LABS: ANION GAP 14 mmol/L (5-15); BLOOD UREA NITROGEN 17 mg/dL (7-18); CALCIUM 9.7 MG/DL (8.5-10.1); CARBON DIOXIDE 20 MMOL/L (21-32); CHLORIDE 101 MMOL/L (98-107); POTASSIUM 3.9 MMOL/L (3.5-5.1); SODIUM 135 MMOL/L (136-145)
[2018-06-02 08:00] VITALS: BP 119/77
--- NOTE | 2018-06-02 09:30 | General Progress Note ---
Assessment/Plan Status: stable Assessment/Plan # Leukocytosis - Sepsis with elevated temperature of 103 degrees Fahrenheit. Had uti v bacteremia (CoNS) on abx, has improved. --> Pt on antibiotics, has received a dose of Zosyn and currently is on vancomycin q.12 h. now on cefepime --> Appreciate Infectious Disease recs --> 2D echo per ID performed on 05/22: No discrete vegetations seen, however SBE may not be excluded by transthoracic 2-D echo. --> 06/02: WBC of 8.7, wnl --> Currently afebrile # Anemia of chronic disease. No hemolysis, peripheral smear reviewed, ferritin was elevated. --> Continue to closely monitor --> Hgb goal >7 --> 06/02: Hgb 12.2 # Acute kidney injury. --> Currently on IV fluids, IV bolus given to see if the patient responds along with IV pressor as needed. --> Closely monitor with Nephrology team. # Septic shock, use antibiotic per ID services. --> potential uti, on abx and bacteremia # Respiratory failure, status post tracheostomy, on mechanical ventilation per Dr. Goetz # Hypercalcemia. Monitor PTH and calcium level. --> 06/02: 9.7, wnl The time the note was entered does not necessarily correspond to the time the patient was seen. Subjective Date patient seen: Jun 02, 2018 ROS Limited/Unobtainable: Yes Hematologic/Lymphatic: Reports: anemia Allergies: Coded Allergies: AZTREONAM (Verified Allergy, Unknown, 05/13/18) All Systems: reviewed and negative except above Subjective Pt remains on vent. No acute events. H/H stable. Afebrile. DC planning. Objective Last 24 Hour Vital Signs Date Time Temp Pulse Resp B/P (MAP) Pulse Ox O2 Delivery O2 Flow Rate FiO2 06/02/18 09:23 81 16 30 06/02/18 07:25 84 15 30 06/02/18 05:30 83 16 30 06/02/18 04:00 78 06/02/18 04:00 30 06/02/18 04:00 97.7 76 18 125/69 (87) 98 97.7 06/02/18 04:00 Mechanical Ventilator 06/02/18 03:27 81 16 30 06/02/18 01:20 82 17 30 06/02/18 00:01 30 06/02/18 00:00 83 06/02/18 00:00 Mechanical Ventilator 06/01/18 23:56 100.2 85 16 127/67 (87) 99 100.2 06/01/18 23:30 80 16 30 06/01/18 21:19 95 19 30 06/01/18 20:00 81 06/01/18 20:00 99.8 84 16 122/79 (93) 98 99.8 06/01/18 20:00 30 06/01/18 20:00 Mechanical Ventilator 06/01/18 19:15 82 18 30 06/01/18 16:53 85 16 30 06/01/18 16:00 Mechanical Ventilator 06/01/18 16:00 92 06/01/18 16:00 30 06/01/18 16:00 99.0 86 20 127/82 (97) 98 99.0 06/01/18 15:04 81 22 30 06/01/18 12:42 88 16 30 06/01/18 12:00 83 06/01/18 12:00 98.6 77 16 120/85 (97) 97 98.6 06/01/18 12:00 Mechanical Ventilator 06/01/18 12:00 30 06/01/18 10:32 85 20 30 Intake and Output 06/01/18 06/02/18 19:00 07:00 Intake Total 997.5 ml 930 ml Output Total 1050 ml 1025 ml Balance -52.5 ml -95 ml Free Water 160 ml 30 ml IV Total 237.5 ml 250 ml Tube Feeding 600 ml 550 ml Other 100 ml Output Urine Total 600 ml 600 ml Stool Total 450 ml 425 ml Laboratory Tests 06/02/18 03:55: White Blood Count 8.7, Red Blood Count 4.35L, Hemoglobin 12.2L, Hematocrit 37.9L , Mean Corpuscular Volume 87, Mean Corpuscular Hemoglobin 28.1, Mean Corpuscular Hemoglobin Concent 32.2, Red Cell Distribution Width 16.1H, Platelet Count 311, Mean Platelet Volume 7.6, Neutrophils (%) (Auto) 55.0, Lymphocytes (%) (Auto) 28.2, Monocytes (%) (Auto) 9.3, Eosinophils (%) (Auto) 5.5H, Basophils (%) (Auto) 2.0, Sodium Level 135L, Potassium Level 3.9, Chloride Level 101, Carbon Dioxide Level 20L, Anion Gap 14, Blood Urea Nitrogen 17, Creatinine 1.0, Estimat Glomerular Filtration Rate > 60, Glucose Level 97, Calcium Level 9.7 Height (Feet): 6 Weight (Pounds): 198 General Appearance: no apparent distress EENT: PERRL/EOMI Neck: normal alignment Cardiovascular: normal peripheral pulses Respiratory/Chest: normal breath sounds, no respiratory distress Abdomen: soft Jimmy Fleming MD Jun 02, 2018 09:30
[2018-06-02] MEDS: Heparin 5000 units/ml inj SUBQ SCH ×2 (09:32→20:48)
--- NOTE | 2018-06-02 10:07 | Nephrology Progress Note ---
Assessment/Plan Assessment/Plan 1. DIVYA- resolved 2. Sepsis- on Abx. JOE tomorrow 3. Chronic Resp FL- trached on vent 4. Hyponatremia - Na stable 135 5. SZ- Keppra -monitor NA 6. Hypophos- corrected. recheck in am Subjective Date patient seen: Jun 02, 2018 Time patient seen: 10:05 ROS Limited/Unobtainable: Yes Allergies: Coded Allergies: AZTREONAM (Verified Allergy, Unknown, 05/13/18) All Systems: reviewed and negative except above Subjective Patient trached/vent. Stable in no distress Objective Last 24 Hour Vital Signs Date Time Temp Pulse Resp B/P (MAP) Pulse Ox O2 Delivery O2 Flow Rate FiO2 06/02/18 09:23 81 16 30 06/02/18 07:25 84 15 30 06/02/18 05:30 83 16 30 06/02/18 04:00 78 06/02/18 04:00 30 06/02/18 04:00 97.7 76 18 125/69 (87) 98 97.7 06/02/18 04:00 Mechanical Ventilator 06/02/18 03:27 81 16 30 06/02/18 01:20 82 17 30 06/02/18 00:01 30 06/02/18 00:00 83 06/02/18 00:00 Mechanical Ventilator 06/01/18 23:56 100.2 85 16 127/67 (87) 99 100.2 06/01/18 23:30 80 16 30 06/01/18 21:19 95 19 30 06/01/18 20:00 81 06/01/18 20:00 99.8 84 16 122/79 (93) 98 99.8 06/01/18 20:00 30 06/01/18 20:00 Mechanical Ventilator 06/01/18 19:15 82 18 30 06/01/18 16:53 85 16 30 06/01/18 16:00 Mechanical Ventilator 06/01/18 16:00 92 06/01/18 16:00 30 06/01/18 16:00 99.0 86 20 127/82 (97) 98 99.0 06/01/18 15:04 81 22 30 06/01/18 12:42 88 16 30 06/01/18 12:00 83 06/01/18 12:00 98.6 77 16 120/85 (97) 97 98.6 06/01/18 12:00 Mechanical Ventilator 06/01/18 12:00 30 06/01/18 10:32 85 20 30 Intake and Output 06/01/18 06/02/18 19:00 07:00 Intake Total 997.5 ml 930 ml Output Total 1050 ml 1025 ml Balance -52.5 ml -95 ml Free Water 160 ml 30 ml IV Total 237.5 ml 250 ml Tube Feeding 600 ml 550 ml Other 100 ml Output Urine Total 600 ml 600 ml Stool Total 450 ml 425 ml Laboratory Tests 06/02/18 03:55: White Blood Count 8.7, Red Blood Count 4.35L, Hemoglobin 12.2L, Hematocrit 37.9L , Mean Corpuscular Volume 87, Mean Corpuscular Hemoglobin 28.1, Mean Corpuscular Hemoglobin Concent 32.2, Red Cell Distribution Width 16.1H, Platelet Count 311, Mean Platelet Volume 7.6, Neutrophils (%) (Auto) 55.0, Lymphocytes (%) (Auto) 28.2, Monocytes (%) (Auto) 9.3, Eosinophils (%) (Auto) 5.5H, Basophils (%) (Auto) 2.0, Sodium Level 135L, Potassium Level 3.9, Chloride Level 101, Carbon Dioxide Level 20L, Anion Gap 14, Blood Urea Nitrogen 17, Creatinine 1.0, Estimat Glomerular Filtration Rate > 60, Glucose Level 97, Calcium Level 9.7 Height (Feet): 6 Weight (Pounds): 198 General Appearance: WD/WN, no apparent distress EENT: PERRL/EOMI Neck: non-tender Cardiovascular: normal peripheral pulses, normal rate Respiratory/Chest: chest wall non-tender, rhonchi - bilaterally Abdomen: non tender, soft Edema: no edema noted Arm (L), no edema noted Arm (R), no edema noted Leg (L), no edema noted Leg (R), no edema noted Pedal (L), no edema noted Pedal (R), no edema noted Generalized Mir Gann M.D. Jun 02, 2018 10:07
--- NOTE | 2018-06-02 10:49 | Cardiology Progress Note ---
Assessment/Plan Status: stable Assessment/Plan Assessment: (1) Acute on chronic respiratory failure (2) Acute on chronic renal insufficiency (3) Severe sepsis (4) Vegetative state (5) Colostomy in place (6) Diabetes mellitus Plan: Continue antibiotics Echocardiogram reviewed- no endocarditis JOE for Sunday 06/03 Patient afebrile, normal WBC otherwise Continue trach care and tube feeds Continue keppra for seizures Subjective Cardiovascular: Reports: no symptoms Respiratory: Reports: no symptoms Gastrointestinal/Abdominal: Reports: no symptoms Genitourinary: Reports: no symptoms Subjective Low grade temp. vitals stable, Telemetry shows sinus rhythm. No acute events Ventilator settings: portex 7, AC 16, TV: 600, FiO2: 30%, PEEP: 5. GT is in place running glucerna 1.2 @ 65 ml/hr. No residual present. Colostomy bag in place. JOE scheduled for 06/03/18 at 1100 Objective Last 24 Hour Vital Signs Date Time Temp Pulse Resp B/P (MAP) Pulse Ox O2 Delivery O2 Flow Rate FiO2 06/02/18 09:23 81 16 30 06/02/18 07:25 84 15 30 06/02/18 05:30 83 16 30 06/02/18 04:00 78 06/02/18 04:00 30 06/02/18 04:00 97.7 76 18 125/69 (87) 98 97.7 06/02/18 04:00 Mechanical Ventilator 06/02/18 03:27 81 16 30 06/02/18 01:20 82 17 30 06/02/18 00:01 30 06/02/18 00:00 83 06/02/18 00:00 Mechanical Ventilator 06/01/18 23:56 100.2 85 16 127/67 (87) 99 100.2 06/01/18 23:30 80 16 30 06/01/18 21:19 95 19 30 06/01/18 20:00 81 06/01/18 20:00 99.8 84 16 122/79 (93) 98 99.8 06/01/18 20:00 30 06/01/18 20:00 Mechanical Ventilator 06/01/18 19:15 82 18 30 06/01/18 16:53 85 16 30 06/01/18 16:00 Mechanical Ventilator 06/01/18 16:00 92 06/01/18 16:00 30 06/01/18 16:00 99.0 86 20 127/82 (97) 98 99.0 06/01/18 15:04 81 22 30 06/01/18 12:42 88 16 30 06/01/18 12:00 83 06/01/18 12:00 98.6 77 16 120/85 (97) 97 98.6 06/01/18 12:00 Mechanical Ventilator 06/01/18 12:00 30 General Appearance: no apparent distress, alert, on vent EENT: PERRL/EOMI, normal ENT inspection Neck: non-tender, normal alignment Rhythm: NSR Cardiovascular: normal peripheral pulses, normal rate, regular rhythm Respiratory/Chest: chest wall non-tender, lungs clear Abdomen: normal bowel sounds, non tender Extremities: normal range of motion, non-tender Intake and Output 06/01/18 06/02/18 19:00 07:00 Intake Total 997.5 ml 930 ml Output Total 1050 ml 1025 ml Balance -52.5 ml -95 ml Free Water 160 ml 30 ml IV Total 237.5 ml 250 ml Tube Feeding 600 ml 550 ml Other 100 ml Output Urine Total 600 ml 600 ml Stool Total 450 ml 425 ml Laboratory Tests Test 06/02/18 03:55 White Blood Count 8.7 K/UL (4.8-10.8) Red Blood Count 4.35 M/UL (4.70-6.10) L Hemoglobin 12.2 G/DL (14.2-18.0) L Hematocrit 37.9 % (42.0-52.0) L Mean Corpuscular Volume 87 FL (80-99) Mean Corpuscular Hemoglobin 28.1 PG (27.0-31.0) Mean Corpuscular Hemoglobin Concent 32.2 G/DL (32.0-36.0) Red Cell Distribution Width 16.1 % (11.6-14.8) H Platelet Count 311 K/UL (150-450) Mean Platelet Volume 7.6 FL (6.5-10.1) Neutrophils (%) (Auto) 55.0 % (45.0-75.0) Lymphocytes (%) (Auto) 28.2 % (20.0-45.0) Monocytes (%) (Auto) 9.3 % (1.0-10.0) Eosinophils (%) (Auto) 5.5 % (0.0-3.0) H Basophils (%) (Auto) 2.0 % (0.0-2.0) Sodium Level 135 MMOL/L (136-145) L Potassium Level 3.9 MMOL/L (3.5-5.1) Chloride Level 101 MMOL/L (98-107) Carbon Dioxide Level 20 MMOL/L (21-32) L Anion Gap 14 mmol/L (5-15) Blood Urea Nitrogen 17 mg/dL (7-18) Creatinine 1.0 MG/DL (0.55-1.30) Estimat Glomerular Filtration Rate > 60 mL/min (>60) Glucose Level 97 MG/DL (74-106) Calcium Level 9.7 MG/DL (8.5-10.1) Kali Owens M.D. Jun 02, 2018 10:49
[2018-06-02 12:00] VITALS: BP 109/76
--- NOTE | 2018-06-02 12:46 | Pulmonolgy Critical Care Note ---
Critical Care - Asmt/Plan Problems: (1) Acute on chronic respiratory failure (2) Acute on chronic renal insufficiency (3) Severe sepsis (4) Vegetative state (5) Colostomy in place (6) Diabetes mellitus Respiratory: monitor respiratory rate, adjust FIO2, CXR Cardiac: continue to monitor HR/BP Renal: F/U I&O Infectious Disease: check cultures Gastrointestinal: continue feedings/current rate Hematologic: transfuse if hgb<8.5 Neurologic: PRN Ativan, keep patient comfortable Prophylaxis: Protonix Time Spent (Minutes): 40 Notes Reviewed: ordering box operator, cardio, renal Discussed with: nurses, consultants, case resolution specialistpatient case manager - Objective Last 24 Hour Vital Signs Date Time Temp Pulse Resp B/P (MAP) Pulse Ox O2 Delivery O2 Flow Rate FiO2 06/02/18 12:00 30 06/02/18 12:00 97.8 82 18 109/76 (87) 98 97.8 06/02/18 12:00 Mechanical Ventilator 06/02/18 12:00 80 06/02/18 11:11 82 17 30 06/02/18 09:23 81 16 30 06/02/18 08:00 97.9 81 17 119/77 (91) 98 97.9 06/02/18 08:00 79 06/02/18 08:00 30 06/02/18 08:00 Mechanical Ventilator 06/02/18 07:25 84 15 30 06/02/18 05:30 83 16 30 06/02/18 04:00 78 06/02/18 04:00 30 06/02/18 04:00 97.7 76 18 125/69 (87) 98 97.7 06/02/18 04:00 Mechanical Ventilator 06/02/18 03:27 81 16 30 06/02/18 01:20 82 17 30 06/02/18 00:01 30 06/02/18 00:00 83 06/02/18 00:00 Mechanical Ventilator 06/01/18 23:56 100.2 85 16 127/67 (87) 99 100.2 06/01/18 23:30 80 16 30 06/01/18 21:19 95 19 30 06/01/18 20:00 81 06/01/18 20:00 99.8 84 16 122/79 (93) 98 99.8 06/01/18 20:00 30 06/01/18 20:00 Mechanical Ventilator 06/01/18 19:15 82 18 30 06/01/18 16:53 85 16 30 06/01/18 16:00 Mechanical Ventilator 06/01/18 16:00 92 06/01/18 16:00 30 06/01/18 16:00 99.0 86 20 127/82 (97) 98 99.0 06/01/18 15:04 81 22 30 Status: awake, sedated Lungs: clear Heart: HR/BP stable, regular Abdomen: non-tender Extremities: no C/C/E, edema Accucheck: 111 Critical Care - Subjective ROS Limited/Unobtainable: No Condition: critical FI02: 30 Vent Support Breath Rate: 16 Vent Support Mode: AC Vent Tidal Volume: 600 Sputum Amount: Small PEEP: 5.0 PIP: 29 Tube Feeding Amount: 50 I&O: Intake and Output 06/01/18 06/02/18 19:00 07:00 Intake Total 997.5 ml 930 ml Output Total 1050 ml 1025 ml Balance -52.5 ml -95 ml Free Water 160 ml 30 ml IV Total 237.5 ml 250 ml Tube Feeding 600 ml 550 ml Other 100 ml Output Urine Total 600 ml 600 ml Stool Total 450 ml 425 ml Labs: Laboratory Tests Test 06/02/18 03:55 White Blood Count 8.7 K/UL (4.8-10.8) Red Blood Count 4.35 M/UL (4.70-6.10) L Hemoglobin 12.2 G/DL (14.2-18.0) L Hematocrit 37.9 % (42.0-52.0) L Mean Corpuscular Volume 87 FL (80-99) Mean Corpuscular Hemoglobin 28.1 PG (27.0-31.0) Mean Corpuscular Hemoglobin Concent 32.2 G/DL (32.0-36.0) Red Cell Distribution Width 16.1 % (11.6-14.8) H Platelet Count 311 K/UL (150-450) Mean Platelet Volume 7.6 FL (6.5-10.1) Neutrophils (%) (Auto) 55.0 % (45.0-75.0) Lymphocytes (%) (Auto) 28.2 % (20.0-45.0) Monocytes (%) (Auto) 9.3 % (1.0-10.0) Eosinophils (%) (Auto) 5.5 % (0.0-3.0) H Basophils (%) (Auto) 2.0 % (0.0-2.0) Sodium Level 135 MMOL/L (136-145) L Potassium Level 3.9 MMOL/L (3.5-5.1) Chloride Level 101 MMOL/L (98-107) Carbon Dioxide Level 20 MMOL/L (21-32) L Anion Gap 14 mmol/L (5-15) Blood Urea Nitrogen 17 mg/dL (7-18) Creatinine 1.0 MG/DL (0.55-1.30) Estimat Glomerular Filtration Rate > 60 mL/min (>60) Glucose Level 97 MG/DL (74-106) Calcium Level 9.7 MG/DL (8.5-10.1) Nico Goetz MD Jun 02, 2018 12:46
[2018-06-02] MEDS ORDERED: NS 275ml ONE (15:01)
[2018-06-02] MEDS ORDERED: Sterile Water Irrig 1000ml IRRIG ONE (15:01)
[2018-06-02 16:00] VITALS: BP 111/68
[2018-06-02] MEDS: Vancomycin 1.5 GM/D5W 250ML IVPB SCH (19:39)
[2018-06-02 20:00] VITALS: BP 123/82
[2018-06-02] MEDS: Dyna-Hex 2% Top Sol 2oz TOPIC SCH (20:47)
[2018-06-02] MEDS: Miralax 17gm pkt GT SCH (20:47)
[2018-06-03] VITALS: BP 124/78
[2018-06-03 04:00] VITALS: BP 124/81
[2018-06-03 04:47] LABS: BASOPHILS % (AUTO) 1.9 % (0.0-2.0); EOSINOPHILS % (AUTO) 5.4 % (0.0-3.0); HEMATOCRIT 43.9 % (42.0-52.0); HEMOGLOBIN 13.7 G/DL (14.2-18.0); LYMPHOCYTES % (AUTO) 22.8 % (20.0-45.0); MEAN CORPUSCULAR VOLUME 87 FL (80-99); MONOCYTES % (AUTO) 11.1 % (1.0-10.0); NEUTROPHILS % (AUTO) 58.8 % (45.0-75.0); PLATELET COUNT 350 K/UL (150-450); RED BLOOD COUNT 5.07 M/UL (4.70-6.10); RED CELL DISTRIBUTION WIDTH 16.1 % (11.6-14.8); WHITE BLOOD COUNT 8.6 K/UL (4.8-10.8)
[2018-06-03 04:54] LABS: INR 1.1 (0.9-1.1)
[2018-06-03 04:58] LABS: ALANINE AMINOTRANSFERASE 42 U/L (12-78); ALBUMIN 3.9 G/DL (3.4-5.0); ALBUMIN/GLOBULIN RATIO 0.7 (1.0-2.7); ALKALINE PHOSPHATASE 139 U/L (46-116); ANION GAP 14 mmol/L (5-15); ASPARTATE AMINO TRANSFERASE 21 U/L (15-37); BILIRUBIN,TOTAL 0.8 MG/DL (0.2-1.0); BLOOD UREA NITROGEN 20 mg/dL (7-18); CALCIUM 10.3 MG/DL (8.5-10.1); CARBON DIOXIDE 21 MMOL/L (21-32); CHLORIDE 100 MMOL/L (98-107); PHOSPHORUS 2.1 MG/DL (2.5-4.9); POTASSIUM 3.9 MMOL/L (3.5-5.1); SODIUM 135 MMOL/L (136-145)
[2018-06-03] MEDS: NovoLOG Insulin Flexpen SUBQ SCH ×4 (05:03→23:53)
[2018-06-03] MEDS: levETIRAcetam 500mg/5ml Liquid GT SCH ×3 (05:06→21:25)
[2018-06-03 08:00] VITALS: BP 113/77
--- NOTE | 2018-06-03 08:16 | Nephrology Progress Note ---
Assessment/Plan Assessment/Plan 1. DIVYA- resolved 2. Sepsis- on Abx. JOE 3. Chronic Resp FL- trached on vent 4. Hyponatremia - Na stable 135. No changes 5. SZ- Keppra -monitor NA 6. Hypophos- replace today Subjective Date patient seen: Jun 03, 2018 Time patient seen: 08:14 ROS Limited/Unobtainable: Yes Allergies: Coded Allergies: AZTREONAM (Verified Allergy, Unknown, 05/13/18) Subjective Patient trached/vent. Poss JOE today Objective Last 24 Hour Vital Signs Date Time Temp Pulse Resp B/P (MAP) Pulse Ox O2 Delivery O2 Flow Rate FiO2 06/03/18 07:10 73 16 30 06/03/18 05:08 70 16 30 06/03/18 04:00 98.4 75 16 124/81 (95) 98 98.4 06/03/18 04:00 30 06/03/18 04:00 Mechanical Ventilator 06/03/18 04:00 75 06/03/18 03:29 74 16 30 06/03/18 01:12 76 16 30 06/03/18 00:42 97.9 97.9 06/03/18 00:42 97.9 06/03/18 00:00 30 06/03/18 00:00 99.8 74 16 124/78 (93) 95 99.8 06/03/18 00:00 77 06/03/18 00:00 Mechanical Ventilator 06/02/18 23:43 98.6 06/02/18 23:18 83 16 30 06/02/18 21:18 83 17 30 06/02/18 20:00 99.1 86 22 123/82 (96) 98 99.1 06/02/18 20:00 30 06/02/18 20:00 81 06/02/18 20:00 Mechanical Ventilator 06/02/18 18:30 82 16 30 06/02/18 17:06 88 17 30 06/02/18 16:00 30 06/02/18 16:00 98.4 86 17 111/68 (82) 98 98.4 06/02/18 16:00 86 06/02/18 16:00 Mechanical Ventilator 06/02/18 14:54 87 16 30 06/02/18 13:12 82 16 30 06/02/18 12:00 30 06/02/18 12:00 97.8 82 18 109/76 (87) 98 97.8 06/02/18 12:00 Mechanical Ventilator 06/02/18 12:00 80 06/02/18 11:11 82 17 30 06/02/18 09:23 81 16 30 Intake and Output 06/02/18 06/03/18 19:00 07:00 Intake Total 50 ml 900 ml Output Total 700 ml 890 ml Balance -650 ml 10 ml Free Water 50 ml IV Total 250 ml Tube Feeding 50 ml 600 ml Output Urine Total 700 ml 400 ml Stool Total 490 ml Laboratory Tests 06/02/18 18:03: Vancomycin Level Trough 14.2H 06/03/18 03:25: White Blood Count 8.6, Red Blood Count 5.07, Hemoglobin 13.7L, Hematocrit 43.9, Mean Corpuscular Volume 87, Mean Corpuscular Hemoglobin 27.1, Mean Corpuscular Hemoglobin Concent 31.3L, Red Cell Distribution Width 16.1H, Platelet Count 350 , Mean Platelet Volume 7.1, Neutrophils (%) (Auto) 58.8, Lymphocytes (%) (Auto) 22.8, Monocytes (%) (Auto) 11.1H, Eosinophils (%) (Auto) 5.4H, Basophils (%) ( Auto) 1.9, Prothrombin Time 11.9H, Prothromb Time International Ratio 1.1, Activated Partial Thromboplast Time 31, Sodium Level 135L, Potassium Level 3.9, Chloride Level 100, Carbon Dioxide Level 21, Anion Gap 14, Blood Urea Nitrogen 20H, Creatinine 1.0, Estimat Glomerular Filtration Rate > 60, Glucose Level 102 , Calcium Level 10.3H, Phosphorus Level 2.1L, Magnesium Level 2.2, Total Bilirubin 0.8, Aspartate Amino Transf (AST/SGOT) 21, Alanine Aminotransferase ( ALT/SGPT) 42, Alkaline Phosphatase 139H, Total Protein 9.3H, Albumin 3.9, Globulin 5.4, Albumin/Globulin Ratio 0.7L Height (Feet): 6 Weight (Pounds): 202 General Appearance: WD/WN, no apparent distress EENT: PERRL/EOMI Neck: non-tender, normal alignment Cardiovascular: normal rate, regular rhythm Respiratory/Chest: chest wall non-tender, rhonchi - bilaterally Abdomen: normal bowel sounds, non tender Edema: no edema noted Arm (L), no edema noted Arm (R), no edema noted Leg (L), no edema noted Leg (R), no edema noted Pedal (L), no edema noted Pedal (R), no edema noted Generalized Mir Gann M.D. Jun 03, 2018 08:16
[2018-06-03] MEDS: Vancomycin 1.5 GM/D5W 250ML IVPB SCH (08:40)
[2018-06-03] MEDS: Heparin 5000 units/ml inj SUBQ SCH ×2 (08:42→20:13)
--- NOTE | 2018-06-03 09:03 | Infectious Diseases Prog Note ---
Assessment/Plan Assessment/Plan Sepsis, resolving- 2ry to UTI and Bacteremia Blood cultures postive 01/23 bottles with GPC Unclear source will need to R/O Endocarditis Possible PNA initially -u/a wbc 40-60, nit neg, leuk +2; ucx >100k E. aerogenes (S cefepime, cipro/ levo; R Zosyn) -BCX 01/23 E. aerogenes, prob Amp C (S cefepime, cipro/levo; R Zosyn), P. mirabilis ESBL (S Zosyn, Ertapenem); repeta 05/16 10/25 CoNS (suspect contaminant) , 05/18 Staph f/u final results if CoNS may need TTE and IE work up. -CXR 05/17: Increased left pleural effusion, over 3 days. Overall decreased interstitial congestion. Right infrahilar atelectasis -CXR: Cardiomegaly. Mild interstitial congestion. Suspect small bilateral pleural effusions -CT abd/p: Right lower quadrant double barrel colostomy, as described. Small peristomal hernia contains bowel loops without evidence of obstruction or strangulation. Left renal staghorn calculus. Bilateral intrarenal calyceal calculi. Borderline hydronephrosis on the right without evidence of downstream obstructive lesion. May indicate mild ureteral pelvic junction obstruction. Somewhat atrophic left kidney. Inspissated contrast ball within the distal sigmoid colon. Gastrostomy in good position. Nonspecific bilateral perinephric fat stranding, could indicate pyelonephritis or could be chronic. Newberry catheter in place. Apparent bladder wall thickening, possibly an artifact of under distention but cystitis is not excludable, particularly in view of mild perivesical fat stranding. Bilateral pulmonary parenchymal atelectasis and consolidation -Blood Cx from PICC CoNS 2/2 bottles Peripheral Neg- (May be contaminant but will repeat blood Cx given new leukocytosis if positive will need ECHO. - Blood Cx 05/20/18 - GPC - Will need TTE for IE work up and the PICC removed. PICC line infection/colonization - TTE negative. Blood cultures only positive from PICC. Not positive from Peripheral - Will repeat blood cultures x 1 to confirm clearance after PICC replaced. Los suspicion for IE. - PICC replace 05/22/18 Fever/Leukocytosis; Resolved - i recurs Re-evaluate lines, Diarrhea? C. dif? DIVYA, improving Lactic acidosis, resolved chronic resp failure trach/vent dependant BPH GERD HTN DM2 seizure disorder colostomy s/p GT constipation VRE and MRSA colonized Plan: - Continue empiric IV Vancomycin # for bacteremia/line infection - Abx end date 06/05/18 if JOE negative - Recommend Transesophageal ECHO to r/o IE -Last day of Ertapenem #14/ for Amp-C Enterobacter and ESBL P.mirabilis bacteremia ; will treat for 14 days - End date 05/30/18 -05/17 SP Zosyn #4 - Monitor CBC/CMP, temperatures - F/U JOE - Pulmonary care Thank you for this consultation. Will continue to follow along with you. Subjective Allergies: Coded Allergies: AZTREONAM (Verified Allergy, Unknown, 05/13/18) Subjective No acute changes On Vent still and stable at 30% Afebrile JOE planned for today Objective Vital Signs Last 24 Hour Vital Signs Date Time Temp Pulse Resp B/P (MAP) Pulse Ox O2 Delivery O2 Flow Rate FiO2 06/03/18 08:00 30 06/03/18 08:00 97.7 75 16 113/77 (89) 99 97.7 06/03/18 08:00 Mechanical Ventilator 06/03/18 07:10 73 16 30 06/03/18 05:08 70 16 30 06/03/18 04:00 98.4 75 16 124/81 (95) 98 98.4 06/03/18 04:00 30 06/03/18 04:00 Mechanical Ventilator 06/03/18 04:00 75 06/03/18 03:29 74 16 30 06/03/18 01:12 76 16 30 06/03/18 00:42 97.9 97.9 06/03/18 00:42 97.9 06/03/18 00:00 30 06/03/18 00:00 99.8 74 16 124/78 (93) 95 99.8 06/03/18 00:00 77 06/03/18 00:00 Mechanical Ventilator 06/02/18 23:43 98.6 06/02/18 23:18 83 16 30 06/02/18 21:18 83 17 30 06/02/18 20:00 99.1 86 22 123/82 (96) 98 99.1 06/02/18 20:00 30 06/02/18 20:00 81 06/02/18 20:00 Mechanical Ventilator 06/02/18 18:30 82 16 30 06/02/18 17:06 88 17 30 06/02/18 16:00 30 06/02/18 16:00 98.4 86 17 111/68 (82) 98 98.4 06/02/18 16:00 86 06/02/18 16:00 Mechanical Ventilator 06/02/18 14:54 87 16 30 06/02/18 13:12 82 16 30 06/02/18 12:00 30 06/02/18 12:00 97.8 82 18 109/76 (87) 98 97.8 06/02/18 12:00 Mechanical Ventilator 06/02/18 12:00 80 06/02/18 11:11 82 17 30 06/02/18 09:23 81 16 30 Height (Feet): 6 Weight (Pounds): 202 Objective GENERAL: NAD. On vent 30% O2 HEENT: NCAT, DMM, Tracheostomy (C/D/I) PULM: Mild crackles in bases B/L, No wheezing CARDIOVASCULAR: RRR, S1 and S2. No M/R/G. ABDOMEN: Obese and nondistended. +BS, The G-tube and stoma noted. EXTREMITIES: No edema. 1+ pedal pulses. Laboratory Tests Test 06/02/18 18:03 06/03/18 03:25 Vancomycin Level Trough 14.2 ug/mL (5.0-12.0) H White Blood Count 8.6 K/UL (4.8-10.8) Red Blood Count 5.07 M/UL (4.70-6.10) Hemoglobin 13.7 G/DL (14.2-18.0) L Hematocrit 43.9 % (42.0-52.0) Mean Corpuscular Volume 87 FL (80-99) Mean Corpuscular Hemoglobin 27.1 PG (27.0-31.0) Mean Corpuscular Hemoglobin Concent 31.3 G/DL (32.0-36.0) L Red Cell Distribution Width 16.1 % (11.6-14.8) H Platelet Count 350 K/UL (150-450) Mean Platelet Volume 7.1 FL (6.5-10.1) Neutrophils (%) (Auto) 58.8 % (45.0-75.0) Lymphocytes (%) (Auto) 22.8 % (20.0-45.0) Monocytes (%) (Auto) 11.1 % (1.0-10.0) H Eosinophils (%) (Auto) 5.4 % (0.0-3.0) H Basophils (%) (Auto) 1.9 % (0.0-2.0) Prothrombin Time 11.9 SEC (9.30-11.50) H Prothromb Time International Ratio 1.1 (0.9-1.1) Activated Partial Thromboplast Time 31 SEC (23-33) Sodium Level 135 MMOL/L (136-145) L Potassium Level 3.9 MMOL/L (3.5-5.1) Chloride Level 100 MMOL/L (98-107) Carbon Dioxide Level 21 MMOL/L (21-32) Anion Gap 14 mmol/L (5-15) Blood Urea Nitrogen 20 mg/dL (7-18) H Creatinine 1.0 MG/DL (0.55-1.30) Estimat Glomerular Filtration Rate > 60 mL/min (>60) Glucose Level 102 MG/DL (74-106) Calcium Level 10.3 MG/DL (8.5-10.1) H Phosphorus Level 2.1 MG/DL (2.5-4.9) L Magnesium Level 2.2 MG/DL (1.8-2.4) Total Bilirubin 0.8 MG/DL (0.2-1.0) Aspartate Amino Transf (AST/SGOT) 21 U/L (15-37) Alanine Aminotransferase (ALT/SGPT) 42 U/L (12-78) Alkaline Phosphatase 139 U/L (46-116) H Total Protein 9.3 G/DL (6.4-8.2) H Albumin 3.9 G/DL (3.4-5.0) Globulin 5.4 g/dL Albumin/Globulin Ratio 0.7 (1.0-2.7) L Current Medications Medications (Trade) Dose Ordered Sig/Va Route PRN Reason Start Time Stop Time Status Last Admin Dose Admin Acetaminophen (Tylenol) 650 mg Q4H PRN ORAL FEVER 05/16/18 14:00 06/13/18 09:59 06/02/18 23:43 Baclofen (Lioresal) 10 mg EVERY 8 HOURS GT 05/20/18 14:00 06/13/18 12:59 06/03/18 05:06 Chlorhexidine Gluconate (Rebecca-Hex 2%) 1 applic DAILY@2000 TOPIC 05/16/18 20:00 06/13/18 19:59 06/02/18 20:47 Dextrose (Dextrose 50%) 25 ml STAT PRN IV Hypoglycemia 05/17/18 08:45 06/14/18 08:44 Dextrose (Dextrose 50%) 50 ml STAT PRN IV Hypoglycemia 05/17/18 08:45 06/14/18 08:44 Heparin Sodium (Porcine) (Heparin 5000 units/ml) 5,000 units EVERY 12 HOURS SUBQ 05/16/18 21:00 06/13/18 20:59 06/02/18 20:48 Insulin Aspart (NovoLOG) Q6HR SUBQ 05/16/18 18:00 06/14/18 11:29 06/02/18 05:52 Lansoprazole (Prevacid) 30 mg DAILY GT 05/17/18 09:00 06/15/18 08:59 06/03/18 08:41 Levetiracetam (Keppra) 1,000 mg Q8HR GT 05/16/18 14:00 06/13/18 12:59 06/03/18 05:06 Ondansetron HCl (Zofran) 4 mg Q6H PRN IVP Nausea & Vomiting 05/16/18 16:00 06/13/18 09:59 Polyethylene Glycol (Miralax) 17 gm BEDTIME GT 05/20/18 21:00 06/14/18 20:59 06/02/18 20:47 Sodium Phosphate 15 mm/Sodium Chloride 280 ml @ 70.273 mls/ hr ONCE ONCE IVPB 06/03/18 10:00 06/03/18 13:59 Vancomycin HCl (Vanco rx to dose) 1 ea DAILY PRN MISC PER RX PROTOCOL 05/18/18 13:15 06/17/18 13:14 Vancomycin HCl/ Dextrose 250 ml @ 125 mls/hr Q18H IVPB 05/29/18 21:00 06/05/18 20:59 06/03/18 08:40 Kali Richter M.D. Jun 03, 2018 09:03
--- NOTE | 2018-06-03 09:52 | General Progress Note ---
Assessment/Plan Status: stable Assessment/Plan # Leukocytosis - Sepsis with elevated temperature of 103 degrees Fahrenheit. Had uti v bacteremia (CoNS) on abx, has improved. --> Pt on antibiotics, has received a dose of Zosyn and currently is on vancomycin q.12 h. now on cefepime --> Appreciate Infectious Disease recs --> 2D echo per ID performed on 05/22: No discrete vegetations seen, however SBE may not be excluded by transthoracic 2-D echo. --> 06/03: WBC of 8.6, wnl --> Currently afebrile # Anemia of chronic disease. No hemolysis, peripheral smear reviewed, ferritin was elevated. --> Continue to closely monitor --> Hgb goal >7 --> 06/03: Hgb 13.7 # Acute kidney injury. --> Currently on IV fluids, IV bolus given to see if the patient responds along with IV pressor as needed. --> Closely monitor with Nephrology team. # Septic shock, use antibiotic per ID services. --> potential uti, on abx and bacteremia # Respiratory failure, status post tracheostomy, on mechanical ventilation per Dr. Goetz --> Remains on vent # Hypercalcemia. Monitor PTH and calcium level. --> 06/02: 9.7, wnl The time the note was entered does not necessarily correspond to the time the patient was seen. Subjective Date patient seen: Jun 03, 2018 ROS Limited/Unobtainable: Yes Hematologic/Lymphatic: Reports: anemia Allergies: Coded Allergies: AZTREONAM (Verified Allergy, Unknown, 05/13/18) All Systems: reviewed and negative except above Subjective Pt remains on vent. No acute events. H/H stable. JOE planned for today. Objective Last 24 Hour Vital Signs Date Time Temp Pulse Resp B/P (MAP) Pulse Ox O2 Delivery O2 Flow Rate FiO2 06/03/18 08:00 30 06/03/18 08:00 97.7 75 16 113/77 (89) 99 97.7 06/03/18 08:00 Mechanical Ventilator 06/03/18 07:10 73 16 30 06/03/18 05:08 70 16 30 06/03/18 04:00 98.4 75 16 124/81 (95) 98 98.4 06/03/18 04:00 30 06/03/18 04:00 Mechanical Ventilator 06/03/18 04:00 75 06/03/18 03:29 74 16 30 06/03/18 01:12 76 16 30 06/03/18 00:42 97.9 97.9 06/03/18 00:42 97.9 06/03/18 00:00 30 06/03/18 00:00 99.8 74 16 124/78 (93) 95 99.8 06/03/18 00:00 77 06/03/18 00:00 Mechanical Ventilator 06/02/18 23:43 98.6 06/02/18 23:18 83 16 30 06/02/18 21:18 83 17 30 06/02/18 20:00 99.1 86 22 123/82 (96) 98 99.1 06/02/18 20:00 30 06/02/18 20:00 81 06/02/18 20:00 Mechanical Ventilator 06/02/18 18:30 82 16 30 06/02/18 17:06 88 17 30 06/02/18 16:00 30 06/02/18 16:00 98.4 86 17 111/68 (82) 98 98.4 06/02/18 16:00 86 06/02/18 16:00 Mechanical Ventilator 06/02/18 14:54 87 16 30 06/02/18 13:12 82 16 30 06/02/18 12:00 30 06/02/18 12:00 97.8 82 18 109/76 (87) 98 97.8 06/02/18 12:00 Mechanical Ventilator 06/02/18 12:00 80 06/02/18 11:11 82 17 30 Intake and Output 06/02/18 06/03/18 19:00 07:00 Intake Total 50 ml 900 ml Output Total 700 ml 890 ml Balance -650 ml 10 ml Free Water 50 ml IV Total 250 ml Tube Feeding 50 ml 600 ml Output Urine Total 700 ml 400 ml Stool Total 490 ml Laboratory Tests 06/02/18 18:03: Vancomycin Level Trough 14.2H 06/03/18 03:25: White Blood Count 8.6, Red Blood Count 5.07, Hemoglobin 13.7L, Hematocrit 43.9, Mean Corpuscular Volume 87, Mean Corpuscular Hemoglobin 27.1, Mean Corpuscular Hemoglobin Concent 31.3L, Red Cell Distribution Width 16.1H, Platelet Count 350 , Mean Platelet Volume 7.1, Neutrophils (%) (Auto) 58.8, Lymphocytes (%) (Auto) 22.8, Monocytes (%) (Auto) 11.1H, Eosinophils (%) (Auto) 5.4H, Basophils (%) ( Auto) 1.9, Prothrombin Time 11.9H, Prothromb Time International Ratio 1.1, Activated Partial Thromboplast Time 31, Sodium Level 135L, Potassium Level 3.9, Chloride Level 100, Carbon Dioxide Level 21, Anion Gap 14, Blood Urea Nitrogen 20H, Creatinine 1.0, Estimat Glomerular Filtration Rate > 60, Glucose Level 102 , Calcium Level 10.3H, Phosphorus Level 2.1L, Magnesium Level 2.2, Total Bilirubin 0.8, Aspartate Amino Transf (AST/SGOT) 21, Alanine Aminotransferase ( ALT/SGPT) 42, Alkaline Phosphatase 139H, Total Protein 9.3H, Albumin 3.9, Globulin 5.4, Albumin/Globulin Ratio 0.7L Height (Feet): 6 Weight (Pounds): 202 General Appearance: no apparent distress EENT: PERRL/EOMI Neck: normal alignment Cardiovascular: normal peripheral pulses Respiratory/Chest: no respiratory distress Abdomen: soft Jimmy Fleming MD Jun 03, 2018 09:52
[2018-06-03] MEDS ORDERED: Sodium Phosphate 15 MM in NS 275 ML IVPB ONE (10:00)
--- NOTE | 2018-06-03 10:11 | Diagnostic Imaging Report ---
Indication: Dyspnea Technique: One view of the chest Comparison: 05/30/2018 Findings: Blunting of left costophrenic sulcus, left perihilar scarring persists. Lungs and pleural spaces otherwise remain clear. The heart size is upper limits normal. There is a tracheostomy Impression: Unchanged left pleural effusion versus scarring, over 4 days. Other stable findings as described
--- NOTE | 2018-06-03 10:34 | Pulmonolgy Critical Care Note ---
Critical Care - Asmt/Plan Problems: (1) Acute on chronic respiratory failure (2) Acute on chronic renal insufficiency (3) Severe sepsis (4) Vegetative state (5) Colostomy in place (6) Diabetes mellitus Respiratory: monitor respiratory rate, adjust FIO2, CXR Cardiac: continue to monitor HR/BP Renal: F/U I&O Infectious Disease: check cultures, continue antibiotics Gastrointestinal: hold feedings Endocrine: check TSH Hematologic: monitor H/H, transfuse if hgb<8.5 Neurologic: PRN Ativan, PRN Morphine, keep patient comfortable Affect: PRN ativan Prophylaxis: Heparin Notes Reviewed: assistant manager/embalmer, renal Discussed with: nurses, consultants, major case detectivecareer services manager - Objective Last 24 Hour Vital Signs Date Time Temp Pulse Resp B/P (MAP) Pulse Ox O2 Delivery O2 Flow Rate FiO2 06/03/18 08:00 30 06/03/18 08:00 75 06/03/18 08:00 97.7 75 16 113/77 (89) 99 97.7 06/03/18 08:00 Mechanical Ventilator 06/03/18 07:10 73 16 30 06/03/18 05:08 70 16 30 06/03/18 04:00 98.4 75 16 124/81 (95) 98 98.4 06/03/18 04:00 30 06/03/18 04:00 Mechanical Ventilator 06/03/18 04:00 75 06/03/18 03:29 74 16 30 06/03/18 01:12 76 16 30 06/03/18 00:42 97.9 97.9 06/03/18 00:42 97.9 06/03/18 00:00 30 06/03/18 00:00 99.8 74 16 124/78 (93) 95 99.8 06/03/18 00:00 77 06/03/18 00:00 Mechanical Ventilator 06/02/18 23:43 98.6 06/02/18 23:18 83 16 30 06/02/18 21:18 83 17 30 06/02/18 20:00 99.1 86 22 123/82 (96) 98 99.1 06/02/18 20:00 30 06/02/18 20:00 81 06/02/18 20:00 Mechanical Ventilator 06/02/18 18:30 82 16 30 06/02/18 17:06 88 17 30 06/02/18 16:00 30 06/02/18 16:00 98.4 86 17 111/68 (82) 98 98.4 06/02/18 16:00 86 06/02/18 16:00 Mechanical Ventilator 06/02/18 14:54 87 16 30 06/02/18 13:12 82 16 30 06/02/18 12:00 30 06/02/18 12:00 97.8 82 18 109/76 (87) 98 97.8 06/02/18 12:00 Mechanical Ventilator 06/02/18 12:00 80 06/02/18 11:11 82 17 30 Status: awake Condition: critical HEENT: atraumatic Neck: full ROM Heart: HR/BP stable Abdomen: non-tender, active bowel sounds Extremities: no C/C/E, edema Accucheck: 110 Critical Care - Subjective ROS Limited/Unobtainable: No Condition: critical EKG Rhythm: Sinus Tachycardia FI02: 30 Vent Support Breath Rate: 16 Vent Support Mode: AC Vent Tidal Volume: 600 Sputum Amount: Small PEEP: 5.0 PIP: 35 Tube Feeding Amount: 50 I&O: Intake and Output 06/02/18 06/03/18 19:00 07:00 Intake Total 50 ml 900 ml Output Total 700 ml 890 ml Balance -650 ml 10 ml Free Water 50 ml IV Total 250 ml Tube Feeding 50 ml 600 ml Output Urine Total 700 ml 400 ml Stool Total 490 ml Labs: Laboratory Tests Test 06/02/18 18:03 06/03/18 03:25 Vancomycin Level Trough 14.2 ug/mL (5.0-12.0) H White Blood Count 8.6 K/UL (4.8-10.8) Red Blood Count 5.07 M/UL (4.70-6.10) Hemoglobin 13.7 G/DL (14.2-18.0) L Hematocrit 43.9 % (42.0-52.0) Mean Corpuscular Volume 87 FL (80-99) Mean Corpuscular Hemoglobin 27.1 PG (27.0-31.0) Mean Corpuscular Hemoglobin Concent 31.3 G/DL (32.0-36.0) L Red Cell Distribution Width 16.1 % (11.6-14.8) H Platelet Count 350 K/UL (150-450) Mean Platelet Volume 7.1 FL (6.5-10.1) Neutrophils (%) (Auto) 58.8 % (45.0-75.0) Lymphocytes (%) (Auto) 22.8 % (20.0-45.0) Monocytes (%) (Auto) 11.1 % (1.0-10.0) H Eosinophils (%) (Auto) 5.4 % (0.0-3.0) H Basophils (%) (Auto) 1.9 % (0.0-2.0) Prothrombin Time 11.9 SEC (9.30-11.50) H Prothromb Time International Ratio 1.1 (0.9-1.1) Activated Partial Thromboplast Time 31 SEC (23-33) Sodium Level 135 MMOL/L (136-145) L Potassium Level 3.9 MMOL/L (3.5-5.1) Chloride Level 100 MMOL/L (98-107) Carbon Dioxide Level 21 MMOL/L (21-32) Anion Gap 14 mmol/L (5-15) Blood Urea Nitrogen 20 mg/dL (7-18) H Creatinine 1.0 MG/DL (0.55-1.30) Estimat Glomerular Filtration Rate > 60 mL/min (>60) Glucose Level 102 MG/DL (74-106) Calcium Level 10.3 MG/DL (8.5-10.1) H Phosphorus Level 2.1 MG/DL (2.5-4.9) L Magnesium Level 2.2 MG/DL (1.8-2.4) Total Bilirubin 0.8 MG/DL (0.2-1.0) Aspartate Amino Transf (AST/SGOT) 21 U/L (15-37) Alanine Aminotransferase (ALT/SGPT) 42 U/L (12-78) Alkaline Phosphatase 139 U/L (46-116) H Total Protein 9.3 G/DL (6.4-8.2) H Albumin 3.9 G/DL (3.4-5.0) Globulin 5.4 g/dL Albumin/Globulin Ratio 0.7 (1.0-2.7) L Nico Goetz MD Jun 03, 2018 10:34
--- NOTE | 2018-06-03 10:59 | GI Progress Note ---
Assessment/Plan Problems: (1) Parastomal hernia ICD Codes: K43.5 - Parastomal hernia without obstruction or gangrene SNOMED: 471466363 Qualifiers: Qualified Codes: K43.5 - Parastomal hernia without obstruction or gangrene (2) Stoma malfunction SNOMED: 283221051 (3) Colostomy in place ICD Codes: Z93.3 - Colostomy status SNOMED: 652743989, 713014867 (4) Vegetative state ICD Codes: R40.3 - Persistent vegetative state SNOMED: 27766759 (5) Diabetes mellitus ICD Codes: E11.9 - Type 2 diabetes mellitus without complications SNOMED: 02087350 (6) Acute on chronic respiratory failure ICD Codes: J96.20 - Acute and chronic respiratory failure, unspecified whether with hypoxia or hypercapnia SNOMED: 43726703 (7) Severe sepsis ICD Codes: A41.9 - Sepsis, unspecified organism; R65.20 - Severe sepsis without septic shock SNOMED: 31313600 Status: stable Status Narrative Discussed with Dr. Prater. Assessment/Plan prolapse stoma assessed >> no s/sx of infection. no obstruction. anemia work up reviewed >> iron deficiency G tube dependent hepatitis panel negative OB negative supportive care monitor H&H, prn transfusions venofer ppi GTFs per RD, adv to goal GT site care daily/prn abx bowel regime fu labs The patient was seen and examined at bedside and all new and available data was reviewed in the patients chart. I agree with the above findings, impression and plan. (Patient seen earlier today. Signature stamp does not reflect patient encounter time.). - Dae Prater MD Subjective Subjective limited Objective Last 24 Hour Vital Signs Date Time Temp Pulse Resp B/P (MAP) Pulse Ox O2 Delivery O2 Flow Rate FiO2 06/03/18 10:30 77 16 30 06/03/18 08:59 70 16 30 06/03/18 08:00 30 06/03/18 08:00 75 06/03/18 08:00 97.7 75 16 113/77 (89) 99 97.7 06/03/18 08:00 Mechanical Ventilator 06/03/18 07:10 73 16 30 06/03/18 05:08 70 16 30 06/03/18 04:00 98.4 75 16 124/81 (95) 98 98.4 8/13/18 04:00 30 06/03/18 04:00 Mechanical Ventilator 06/03/18 04:00 75 06/03/18 03:29 74 16 30 06/03/18 01:12 76 16 30 06/03/18 00:42 97.9 97.9 06/03/18 00:42 97.9 06/03/18 00:00 30 06/03/18 00:00 99.8 74 16 124/78 (93) 95 99.8 06/03/18 00:00 77 06/03/18 00:00 Mechanical Ventilator 06/02/18 23:43 98.6 06/02/18 23:18 83 16 30 06/02/18 21:18 83 17 30 06/02/18 20:00 99.1 86 22 123/82 (96) 98 99.1 06/02/18 20:00 30 06/02/18 20:00 81 06/02/18 20:00 Mechanical Ventilator 06/02/18 18:30 82 16 30 06/02/18 17:06 88 17 30 06/02/18 16:00 30 06/02/18 16:00 98.4 86 17 111/68 (82) 98 98.4 06/02/18 16:00 86 06/02/18 16:00 Mechanical Ventilator 06/02/18 14:54 87 16 30 06/02/18 13:12 82 16 30 06/02/18 12:00 30 06/02/18 12:00 97.8 82 18 109/76 (87) 98 97.8 06/02/18 12:00 Mechanical Ventilator 06/02/18 12:00 80 06/02/18 11:11 82 17 30 Intake and Output 06/02/18 06/03/18 19:00 07:00 Intake Total 50 ml 900 ml Output Total 700 ml 890 ml Balance -650 ml 10 ml Free Water 50 ml IV Total 250 ml Tube Feeding 50 ml 600 ml Output Urine Total 700 ml 400 ml Stool Total 490 ml Laboratory Tests Test 06/02/18 18:03 06/03/18 03:25 Vancomycin Level Trough 14.2 ug/mL (5.0-12.0) H White Blood Count 8.6 K/UL (4.8-10.8) Red Blood Count 5.07 M/UL (4.70-6.10) Hemoglobin 13.7 G/DL (14.2-18.0) L Hematocrit 43.9 % (42.0-52.0) Mean Corpuscular Volume 87 FL (80-99) Mean Corpuscular Hemoglobin 27.1 PG (27.0-31.0) Mean Corpuscular Hemoglobin Concent 31.3 G/DL (32.0-36.0) L Red Cell Distribution Width 16.1 % (11.6-14.8) H Platelet Count 350 K/UL (150-450) Mean Platelet Volume 7.1 FL (6.5-10.1) Neutrophils (%) (Auto) 58.8 % (45.0-75.0) Lymphocytes (%) (Auto) 22.8 % (20.0-45.0) Monocytes (%) (Auto) 11.1 % (1.0-10.0) H Eosinophils (%) (Auto) 5.4 % (0.0-3.0) H Basophils (%) (Auto) 1.9 % (0.0-2.0) Prothrombin Time 11.9 SEC (9.30-11.50) H Prothromb Time International Ratio 1.1 (0.9-1.1) Activated Partial Thromboplast Time 31 SEC (23-33) Sodium Level 135 MMOL/L (136-145) L Potassium Level 3.9 MMOL/L (3.5-5.1) Chloride Level 100 MMOL/L (98-107) Carbon Dioxide Level 21 MMOL/L (21-32) Anion Gap 14 mmol/L (5-15) Blood Urea Nitrogen 20 mg/dL (7-18) H Creatinine 1.0 MG/DL (0.55-1.30) Estimat Glomerular Filtration Rate > 60 mL/min (>60) Glucose Level 102 MG/DL (74-106) Calcium Level 10.3 MG/DL (8.5-10.1) H Phosphorus Level 2.1 MG/DL (2.5-4.9) L Magnesium Level 2.2 MG/DL (1.8-2.4) Total Bilirubin 0.8 MG/DL (0.2-1.0) Aspartate Amino Transf (AST/SGOT) 21 U/L (15-37) Alanine Aminotransferase (ALT/SGPT) 42 U/L (12-78) Alkaline Phosphatase 139 U/L (46-116) H Total Protein 9.3 G/DL (6.4-8.2) H Albumin 3.9 G/DL (3.4-5.0) Globulin 5.4 g/dL Albumin/Globulin Ratio 0.7 (1.0-2.7) L Height (Feet): 6 Weight (Pounds): 202 General Appearance: WD/WN, no apparent distress, alert Cardiovascular: normal rate Respiratory/Chest: normal breath sounds, no respiratory distress Abdominal Exam: normal bowel sounds, non tender, soft, other - colostomy Extremities: non-tender Boyd Emmanuel NP Jun 03, 2018 10:59
--- NOTE | 2018-06-03 11:14 | Cardiology Progress Note ---
Assessment/Plan Status: stable Assessment/Plan Assessment: (1) Acute on chronic respiratory failure (2) Acute on chronic renal insufficiency (3) Severe sepsis (4) Vegetative state (5) Colostomy in place (6) Diabetes mellitus Plan: Continue antibiotics Echocardiogram reviewed- no endocarditis JOE for Sunday 06/03 Patient afebrile, normal WBC otherwise Continue trach care and tube feeds Continue keppra for seizures Subjective Cardiovascular: Reports: no symptoms Respiratory: Reports: no symptoms Gastrointestinal/Abdominal: Reports: no symptoms Genitourinary: Reports: no symptoms Subjective Low grade temp. vitals stable, Telemetry shows sinus rhythm. No acute events Ventilator settings: portex 7, AC 16, TV: 600, FiO2: 30%, PEEP: 5. GT is in place running glucerna 1.2 @ 65 ml/hr. No residual present. Colostomy bag in place. JOE scheduled for 06/03/18 at 1100 Objective Last 24 Hour Vital Signs Date Time Temp Pulse Resp B/P (MAP) Pulse Ox O2 Delivery O2 Flow Rate FiO2 06/03/18 10:30 77 16 30 06/03/18 08:59 70 16 30 06/03/18 08:00 30 06/03/18 08:00 75 06/03/18 08:00 97.7 75 16 113/77 (89) 99 97.7 06/03/18 08:00 Mechanical Ventilator 06/03/18 07:10 73 16 30 06/03/18 05:08 70 16 30 06/03/18 04:00 98.4 75 16 124/81 (95) 98 98.4 06/03/18 04:00 30 06/03/18 04:00 Mechanical Ventilator 06/03/18 04:00 75 06/03/18 03:29 74 16 30 06/03/18 01:12 76 16 30 06/03/18 00:42 97.9 97.9 06/03/18 00:42 97.9 06/03/18 00:00 30 06/03/18 00:00 99.8 74 16 124/78 (93) 95 99.8 06/03/18 00:00 77 06/03/18 00:00 Mechanical Ventilator 06/02/18 23:43 98.6 06/02/18 23:18 83 16 30 06/02/18 21:18 83 17 30 06/02/18 20:00 99.1 86 22 123/82 (96) 98 99.1 06/02/18 20:00 30 06/02/18 20:00 81 06/02/18 20:00 Mechanical Ventilator 06/02/18 18:30 82 16 30 06/02/18 17:06 88 17 30 06/02/18 16:00 30 06/02/18 16:00 98.4 86 17 111/68 (82) 98 98.4 06/02/18 16:00 86 06/02/18 16:00 Mechanical Ventilator 06/02/18 14:54 87 16 30 06/02/18 13:12 82 16 30 06/02/18 12:00 30 06/02/18 12:00 97.8 82 18 109/76 (87) 98 97.8 06/02/18 12:00 Mechanical Ventilator 06/02/18 12:00 80 General Appearance: no apparent distress, on vent EENT: PERRL/EOMI, normal ENT inspection Neck: non-tender, normal alignment Rhythm: NSR Cardiovascular: normal peripheral pulses, normal rate, regular rhythm Respiratory/Chest: chest wall non-tender, lungs clear Abdomen: normal bowel sounds, non tender Extremities: normal range of motion Neurologic: 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 prep cook II-XII grossly normal, no motor/sensory deficits Intake and Output 06/02/18 06/03/18 19:00 07:00 Intake Total 50 ml 900 ml Output Total 700 ml 890 ml Balance -650 ml 10 ml Free Water 50 ml IV Total 250 ml Tube Feeding 50 ml 600 ml Output Urine Total 700 ml 400 ml Stool Total 490 ml Laboratory Tests Test 06/02/18 18:03 06/03/18 03:25 Vancomycin Level Trough 14.2 ug/mL (5.0-12.0) H White Blood Count 8.6 K/UL (4.8-10.8) Red Blood Count 5.07 M/UL (4.70-6.10) Hemoglobin 13.7 G/DL (14.2-18.0) L Hematocrit 43.9 % (42.0-52.0) Mean Corpuscular Volume 87 FL (80-99) Mean Corpuscular Hemoglobin 27.1 PG (27.0-31.0) Mean Corpuscular Hemoglobin Concent 31.3 G/DL (32.0-36.0) L Red Cell Distribution Width 16.1 % (11.6-14.8) H Platelet Count 350 K/UL (150-450) Mean Platelet Volume 7.1 FL (6.5-10.1) Neutrophils (%) (Auto) 58.8 % (45.0-75.0) Lymphocytes (%) (Auto) 22.8 % (20.0-45.0) Monocytes (%) (Auto) 11.1 % (1.0-10.0) H Eosinophils (%) (Auto) 5.4 % (0.0-3.0) H Basophils (%) (Auto) 1.9 % (0.0-2.0) Prothrombin Time 11.9 SEC (9.30-11.50) H Prothromb Time International Ratio 1.1 (0.9-1.1) Activated Partial Thromboplast Time 31 SEC (23-33) Sodium Level 135 MMOL/L (136-145) L Potassium Level 3.9 MMOL/L (3.5-5.1) Chloride Level 100 MMOL/L (98-107) Carbon Dioxide Level 21 MMOL/L (21-32) Anion Gap 14 mmol/L (5-15) Blood Urea Nitrogen 20 mg/dL (7-18) H Creatinine 1.0 MG/DL (0.55-1.30) Estimat Glomerular Filtration Rate > 60 mL/min (>60) Glucose Level 102 MG/DL (74-106) Calcium Level 10.3 MG/DL (8.5-10.1) H Phosphorus Level 2.1 MG/DL (2.5-4.9) L Magnesium Level 2.2 MG/DL (1.8-2.4) Total Bilirubin 0.8 MG/DL (0.2-1.0) Aspartate Amino Transf (AST/SGOT) 21 U/L (15-37) Alanine Aminotransferase (ALT/SGPT) 42 U/L (12-78) Alkaline Phosphatase 139 U/L (46-116) H Total Protein 9.3 G/DL (6.4-8.2) H Albumin 3.9 G/DL (3.4-5.0) Globulin 5.4 g/dL Albumin/Globulin Ratio 0.7 (1.0-2.7) Kali Layton M.D. Jun 03, 2018 11:14
[2018-06-03 12:03] VITALS: BP 99/79
[2018-06-03] MEDS ORDERED: Propofol 200mg/20ml IV ONE (13:06)
[2018-06-03] MEDS ORDERED: Lidocaine 1% MPF 10mg/ml 5ml ONE (13:06)
[2018-06-03] MEDS ORDERED: Sodium Chloride 10ml vial INJ ONE (13:06)
[2018-06-03] MEDS ORDERED: Alfentanil 2ml Inj ONE (13:07)
[2018-06-03] MEDS ORDERED: LR 1000ml ONE (13:30)
[2018-06-03] MEDS ORDERED: LR 1000ml 1,000 ML IVLG SCH (13:43)
--- NOTE | 2018-06-03 13:44 | Pre-Procedure Note/Attestation ---
Pre-Procedure Note/Attestation Complete Prior to Procedure Procedure Narrative: JOE Indications for Procedure Pre-Operative Diagnosis: BACTEREMIA Attestation I attest that I discussed the nature of the procedure; its benefits; risks and complications; and alternatives (and the risks and benefits of such alternatives ), prior to the procedure, with the patient (or the patient's legal employee's representative). I attest that, if there was a reasonable possibility of needing a blood transfusion, the patient (or the patient's legal employee's representative) was given the [facility] standardized written summary, pursuant to the [place] Blood Safety Act ([place] Health and Safety Code # 1645, as amended). I attest that I re-evaluated the patient just prior to the surgery and that there has been no change in the patient's H&P, except as documented below: Harinder Shahid MD Jun 03, 2018 13:44
[2018-06-03] MEDS ORDERED: LORazepam Inj 2mg/ml 1ml IV PRN (13:45)
[2018-06-03] MEDS ORDERED: Midazolam 2mg/2ml Inj IVP PRN (13:45)
[2018-06-03] MEDS ORDERED: Atropine Inj 1mg/10ml Syr IV PRN (13:45)
[2018-06-03] MEDS ORDERED: oxyCODONE HCL/Acetaminophen 5/325mg ORAL PRN (13:45)
[2018-06-03] MEDS ORDERED: HYDROcodone/Acetamin 7.5/325 tab ORAL PRN (13:45)
[2018-06-03] MEDS ORDERED: fentaNYL 100 mcg/2 mL IV PRN (13:45)
[2018-06-03] MEDS ORDERED: Hydromorphone 0.5mg/0.5ml inj IVP PRN (13:45)
[2018-06-03] MEDS ORDERED: Metoclopramide 10mg/2ml Inj IVP PRN (13:45)
[2018-06-03] MEDS ORDERED: Norco 5mg/325mg tab ORAL PRN (13:45)
[2018-06-03] MEDS ORDERED: Labetalol 5mg/ml 20ml vial IV PRN (13:45)
[2018-06-03] MEDS ORDERED: DiphenhydrAMINE 50mg/ml Inj IVP PRN (13:45)
--- NOTE | 2018-06-03 13:48 | Anethesia Preoperative Eval ---
Anesthesia Pre-op PMH/ROS General Date of Evaluation: Jun 03, 2018 Time of Evaluation: 13:21 Anesthesiologist: Rex ASA Score: ASA 4 Mallampati Score Class I : Soft palate, uvula, fauces, pillars visible Class II: Soft palate, uvula, fauces visible Class III: Soft palate, base of uvula visible Class IV: Only hard plate visible Mallampati Classification: Class IV Surgeon: Kleber Diagnosis: Ventilatory Failure Surgical Procedure: JOE Anesthesia History: none Family History: no anesthesia problems Allergies: Coded Allergies: AZTREONAM (Verified Allergy, Unknown, 05/13/18) Medications: see eMAR Past Medical History Cardiovascular: Reports: HTN Pulmonary: Reports: COPD Gastrointestinal/Genitourinary: Reports: ESRD Neurologic/Psychiatric: Reports: other - SZ Endocrine: Reports: DM PSxH Narrative: Colostomy Anesthesia Pre-op Phys. Exam Physician Exam Last Vital Signs Date Time Temp Pulse Resp B/P (MAP) Pulse Ox O2 Delivery O2 Flow Rate FiO2 06/03/18 13:15 74 16 30 06/03/18 12:03 97.1 99/79 (86) 100 97.1 06/03/18 12:00 Mechanical Ventilator Constitutional: NAD Neurologic: CN 2-12 intact Cardiovascular: RRR Respiratory: CTA Gastrointestinal: S/NT/ND Airway Exam Mallampati Score: Class IV MO: limited ROM: limited Teeth: missing Anesthesia Pre-op A/P Labs Hematology Test 06/03/18 03:25 White Blood Count 8.6 K/UL (4.8-10.8) Red Blood Count 5.07 M/UL (4.70-6.10) Hemoglobin 13.7 G/DL (14.2-18.0) L Hematocrit 43.9 % (42.0-52.0) Mean Corpuscular Volume 87 FL (80-99) Mean Corpuscular Hemoglobin 27.1 PG (27.0-31.0) Mean Corpuscular Hemoglobin Concent 31.3 G/DL (32.0-36.0) L Red Cell Distribution Width 16.1 % (11.6-14.8) H Platelet Count 350 K/UL (150-450) Mean Platelet Volume 7.1 FL (6.5-10.1) Neutrophils (%) (Auto) 58.8 % (45.0-75.0) Lymphocytes (%) (Auto) 22.8 % (20.0-45.0) Monocytes (%) (Auto) 11.1 % (1.0-10.0) H Eosinophils (%) (Auto) 5.4 % (0.0-3.0) H Basophils (%) (Auto) 1.9 % (0.0-2.0) Coagulation Test 06/03/18 03:25 Prothrombin Time 11.9 SEC (9.30-11.50) H Prothromb Time International Ratio 1.1 (0.9-1.1) Activated Partial Thromboplast Time 31 SEC (23-33) Chemistry Test 06/03/18 03:25 Sodium Level 135 MMOL/L (136-145) L Potassium Level 3.9 MMOL/L (3.5-5.1) Chloride Level 100 MMOL/L (98-107) Carbon Dioxide Level 21 MMOL/L (21-32) Anion Gap 14 mmol/L (5-15) Blood Urea Nitrogen 20 mg/dL (7-18) H Creatinine 1.0 MG/DL (0.55-1.30) Estimat Glomerular Filtration Rate > 60 mL/min (>60) Glucose Level 102 MG/DL (74-106) Calcium Level 10.3 MG/DL (8.5-10.1) H Phosphorus Level 2.1 MG/DL (2.5-4.9) L Magnesium Level 2.2 MG/DL (1.8-2.4) Total Bilirubin 0.8 MG/DL (0.2-1.0) Aspartate Amino Transf (AST/SGOT) 21 U/L (15-37) Alanine Aminotransferase (ALT/SGPT) 42 U/L (12-78) Alkaline Phosphatase 139 U/L (46-116) H Total Protein 9.3 G/DL (6.4-8.2) H Albumin 3.9 G/DL (3.4-5.0) Globulin 5.4 g/dL Albumin/Globulin Ratio 0.7 (1.0-2.7) L Risk Assessment & Plan Assessment: ASA 4 Plan: GA Status Change Before Surgery: No Pre-Antibiotics Given Within 1 Hr of Incision: No Tristen Goodman MD Jun 03, 2018 13:48
--- NOTE | 2018-06-03 13:53 | Brief Operative Note ---
Immediate Post Operative Note Operative Note Pre-op Diagnosis: BACTEREMIA Procedure: JOE COULD NOT BE PERFORMED DUE TO TECHNICAL DIFFICULTIES Post-op Diagnosis: BACTEREMIA PROCEDURE WAS UNSUCCESSFUL Surgeon: RAINA SHAHID MD Specimen: none Complications: none Condition: stable Fluids: NONE Estimated Blood Loss: none Drains: none Implant(s) used?: No Raina Shahid MD Jun 03, 2018 13:53
--- NOTE | 2018-06-03 14:00 | Immediate Post-Op Evaluation ---
Immediate Post-Op Evalulation Immediate Post-Op Evalulation Procedure: JOE Date of Evaluation: Jun 03, 2018 Time of Evaluation: 14:38 IV Fluids: 0 Blood Products: 0 Estimated Blood Loss: 2 Urinary Output: 0 Blood Pressure Systolic: 116 Blood Pressure Diastolic: 72 Pulse Rate: 81 Respiratory Rate: 20 - Mech Vent O2 Sat by Pulse Oximetry: 100 Temperature (Fahrenheit): 97.8 Pain Score (1-10): 0 Nausea: No Vomiting: No Complications 0 Patient Status: awake, no response, patent, ventilated, nausea, vomiting, none Hydration Status: adequate Tristen Goodman MD Jun 03, 2018 14:00
[2018-06-03 16:00] VITALS: BP 105/77
[2018-06-03 20:00] VITALS: BP 109/85
[2018-06-03] MEDS: Dyna-Hex 2% Top Sol 2oz TOPIC SCH (20:12)
[2018-06-03] MEDS: Miralax 17gm pkt GT SCH (20:12)
[2018-06-04] VITALS: BP 118/79
[2018-06-04] MEDS: Vancomycin 1.5 GM/D5W 250ML IVPB SCH ×2 (02:06→20:21)
[2018-06-04 04:00] VITALS: BP 121/69
[2018-06-04] MEDS: NovoLOG Insulin Flexpen SUBQ SCH ×3 (05:11→17:22)
[2018-06-04] MEDS: levETIRAcetam 500mg/5ml Liquid GT SCH ×3 (05:14→21:58)
[2018-06-04 06:24] LABS: BASOPHILS % (AUTO) 0.4 % (0.0-2.0); EOSINOPHILS % (AUTO) 6.4 % (0.0-3.0); HEMATOCRIT 40.9 % (42.0-52.0); HEMOGLOBIN 13.3 G/DL (14.2-18.0); LYMPHOCYTES % (AUTO) 22.7 % (20.0-45.0); MEAN CORPUSCULAR VOLUME 88 FL (80-99); NEUTROPHILS % (AUTO) 64.5 % (45.0-75.0); PLATELET COUNT 330 K/UL (150-450); RED BLOOD COUNT 4.64 M/UL (4.70-6.10); RED CELL DISTRIBUTION WIDTH 15.4 % (11.6-14.8); WHITE BLOOD COUNT 9.4 K/UL (4.8-10.8)
[2018-06-04 06:45] LABS: ANION GAP 14 mmol/L (5-15); BLOOD UREA NITROGEN 18 mg/dL (7-18); CALCIUM 10.2 MG/DL (8.5-10.1); CARBON DIOXIDE 21 MMOL/L (21-32); CHLORIDE 100 MMOL/L (98-107); SODIUM 135 MMOL/L (136-145)
[2018-06-04 08:00] VITALS: BP 119/79
[2018-06-04] MEDS: Heparin 5000 units/ml inj SUBQ SCH ×2 (08:26→20:24)
--- NOTE | 2018-06-04 08:27 | Nephrology Progress Note ---
Assessment/Plan Assessment/Plan 1. DIVYA- resolved 2. Sepsis- on Abx. 3. Chronic Resp FL- trached on vent 4. Hyponatremia - Na stable 135. 5. SZ- Luis Alberto -monitor NA for now, stable 6. Hypophos- corrected Subjective Date patient seen: Jun 04, 2018 Time patient seen: 08:26 ROS Limited/Unobtainable: Yes Allergies: Coded Allergies: AZTREONAM (Verified Allergy, Unknown, 05/13/18) Subjective Patient trached/vent. JOE was unsuccessful Objective Last 24 Hour Vital Signs Date Time Temp Pulse Resp B/P (MAP) Pulse Ox O2 Delivery O2 Flow Rate FiO2 06/04/18 08:00 82 06/04/18 08:00 Mechanical Ventilator 06/04/18 08:00 30 06/04/18 06:54 88 18 30 06/04/18 05:20 82 16 30 06/04/18 04:00 30 06/04/18 04:00 98.1 79 18 121/69 (86) 99 98.1 06/04/18 04:00 Mechanical Ventilator 06/04/18 04:00 77 06/04/18 03:10 84 16 30 06/04/18 01:16 82 16 30 06/04/18 00:00 99.1 83 16 118/79 (92) 99 99.1 06/04/18 00:00 79 06/04/18 00:00 Mechanical Ventilator 06/04/18 00:00 30 06/03/18 23:18 77 16 30 06/03/18 20:54 80 16 30 06/03/18 20:00 97.9 76 18 109/85 (93) 100 97.9 06/03/18 20:00 Mechanical Ventilator 06/03/18 20:00 87 06/03/18 20:00 30 06/03/18 19:08 86 16 30 06/03/18 17:00 79 16 30 06/03/18 16:00 98.3 81 16 105/77 (86) 100 98.3 06/03/18 16:00 30 06/03/18 16:00 Mechanical Ventilator 06/03/18 16:00 79 06/03/18 15:13 80 16 30 06/03/18 14:18 208.0 81 20 100 06/03/18 13:15 74 16 30 06/03/18 12:03 97.1 82 16 99/79 (86) 100 97.1 06/03/18 12:00 30 06/03/18 12:00 78 06/03/18 12:00 Mechanical Ventilator 06/03/18 10:30 77 16 30 06/03/18 08:59 70 16 30 Intake and Output 06/03/18 06/04/18 19:00 07:00 Intake Total 620.273 ml 900 ml Output Total 700 ml 1000 ml Balance -79.727 ml -100 ml Free Water 50 ml 50 ml IV Total 320.273 ml 250 ml Tube Feeding 250 ml 600 ml Output Urine Total 450 ml 525 ml Stool Total 250 ml 475 ml Laboratory Tests 06/04/18 04:00: White Blood Count 9.4, Red Blood Count 4.64L, Hemoglobin 13.3L, Hematocrit 40.9L , Mean Corpuscular Volume 88, Mean Corpuscular Hemoglobin 28.6, Mean Corpuscular Hemoglobin Concent 32.5, Red Cell Distribution Width 15.4H, Platelet Count 330, Mean Platelet Volume 7.1, Neutrophils (%) (Auto) 64.5, Lymphocytes (%) (Auto) 22.7, Monocytes (%) (Auto) 6.0, Eosinophils (%) (Auto) 6.4H, Basophils (%) (Auto) 0.4, Sodium Level 135L, Potassium Level 4.0, Chloride Level 100, Carbon Dioxide Level 21, Anion Gap 14, Blood Urea Nitrogen 18, Creatinine 1.0, Estimat Glomerular Filtration Rate > 60, Glucose Level 112H , Calcium Level 10.2H Height (Feet): 6 Height (Inches): 0.00 Weight (Pounds): 201 General Appearance: WD/WN, no apparent distress, alert EENT: PERRL/EOMI Neck: non-tender Cardiovascular: normal peripheral pulses, normal rate Respiratory/Chest: rhonchi - bilaterally Abdomen: non tender, soft Edema: no edema noted Arm (L), no edema noted Arm (R), no edema noted Leg (L), no edema noted Leg (R), no edema noted Pedal (L), no edema noted Pedal (R), no edema noted Generalized Mir Gann M.D. Jun 04, 2018 08:27
--- NOTE | 2018-06-04 08:41 | Infectious Diseases Prog Note ---
Assessment/Plan Assessment/Plan Sepsis, resolving- 2ry to UTI and Bacteremia Blood cultures postive 01/23 bottles with GPC Unclear source will need to R/O Endocarditis Possible PNA initially -u/a wbc 40-60, nit neg, leuk +2; ucx >100k E. aerogenes (S cefepime, cipro/ levo; R Zosyn) -BCX 01/23 E. aerogenes, prob Amp C (S cefepime, cipro/levo; R Zosyn), P. mirabilis ESBL (S Zosyn, Ertapenem); repeta 05/16 10/25 CoNS (suspect contaminant) , 05/18 Staph f/u final results if CoNS may need TTE and IE work up. -CXR 05/17: Increased left pleural effusion, over 3 days. Overall decreased interstitial congestion. Right infrahilar atelectasis -CXR: Cardiomegaly. Mild interstitial congestion. Suspect small bilateral pleural effusions -CT abd/p: Right lower quadrant double barrel colostomy, as described. Small peristomal hernia contains bowel loops without evidence of obstruction or strangulation. Left renal staghorn calculus. Bilateral intrarenal calyceal calculi. Borderline hydronephrosis on the right without evidence of downstream obstructive lesion. May indicate mild ureteral pelvic junction obstruction. Somewhat atrophic left kidney. Inspissated contrast ball within the distal sigmoid colon. Gastrostomy in good position. Nonspecific bilateral perinephric fat stranding, could indicate pyelonephritis or could be chronic. Newberry catheter in place. Apparent bladder wall thickening, possibly an artifact of under distention but cystitis is not excludable, particularly in view of mild perivesical fat stranding. Bilateral pulmonary parenchymal atelectasis and consolidation -Blood Cx from PICC CoNS 2/2 bottles Peripheral Neg- (May be contaminant but will repeat blood Cx given new leukocytosis if positive will need ECHO. - Blood Cx 05/20/18 - GPC - Will need TTE for IE work up and the PICC removed. PICC line infection/colonization - TTE negative. Blood cultures only positive from PICC. Not positive from Peripheral - Will repeat blood cultures x 1 to confirm clearance after PICC replaced. Los suspicion for IE. - PICC replace 05/22/18 Fever/Leukocytosis; Resolved - i recurs Re-evaluate lines, Diarrhea? C. dif? DIVYA, improving Lactic acidosis, resolved chronic resp failure trach/vent dependant BPH GERD HTN DM2 seizure disorder colostomy s/p GT constipation VRE and MRSA colonized Plan: JOE could not be performed due to technical problems - If unable to repeat JOE then patient should be treated for presumed endocarditis for 6 weeks - Continue empiric IV Vancomycin #15/ for bacteremia/line infection cant r/o Endocarditis - Abx end date 07/03/18 if JOE attempted again and negative then ed date would be 06/05/18 -Last day of Ertapenem #14/14 for Amp-C Enterobacter and ESBL P.mirabilis bacteremia ; will treat for 14 days - End date 05/30/18 -05/17 SP Zosyn #4 - Monitor CBC/CMP, temperatures - F/U JOE - Pulmonary care Thank you for this consultation. Will continue to follow along with you. Subjective Allergies: Coded Allergies: AZTREONAM (Verified Allergy, Unknown, 05/13/18) Subjective JOE could not be performed for technical difficulties On Vent still and stable at 30% Afebrile Objective Vital Signs Last 24 Hour Vital Signs Date Time Temp Pulse Resp B/P (MAP) Pulse Ox O2 Delivery O2 Flow Rate FiO2 06/04/18 08:00 82 06/04/18 08:00 Mechanical Ventilator 06/04/18 08:00 30 06/04/18 06:54 88 18 30 06/04/18 05:20 82 16 30 06/04/18 04:00 30 06/04/18 04:00 98.1 79 18 121/69 (86) 99 98.1 06/04/18 04:00 Mechanical Ventilator 06/04/18 04:00 77 06/04/18 03:10 84 16 30 06/04/18 01:16 82 16 30 06/04/18 00:00 99.1 83 16 118/79 (92) 99 99.1 06/04/18 00:00 79 06/04/18 00:00 Mechanical Ventilator 06/04/18 00:00 30 06/03/18 23:18 77 16 30 06/03/18 20:54 80 16 30 06/03/18 20:00 97.9 76 18 109/85 (93) 100 97.9 06/03/18 20:00 Mechanical Ventilator 06/03/18 20:00 87 06/03/18 20:00 30 06/03/18 19:08 86 16 30 06/03/18 17:00 79 16 30 06/03/18 16:00 98.3 81 16 105/77 (86) 100 98.3 06/03/18 16:00 30 06/03/18 16:00 Mechanical Ventilator 06/03/18 16:00 79 06/03/18 15:13 80 16 30 06/03/18 14:18 208.0 81 20 100 06/03/18 13:15 74 16 30 06/03/18 12:03 97.1 82 16 99/79 (86) 100 97.1 06/03/18 12:00 30 06/03/18 12:00 78 06/03/18 12:00 Mechanical Ventilator 06/03/18 10:30 77 16 30 06/03/18 08:59 70 16 30 Height (Feet): 6 Height (Inches): 0.00 Weight (Pounds): 201 Objective GENERAL: NAD. On vent 30% O2, Calm HEENT: NCAT, DMM, Tracheostomy (C/D/I) PULM: Mild crackles in bases B/L, No wheezing CARDIOVASCULAR: RRR, S1 and S2 ABDOMEN: Obese and nondistended. +BS, The G-tube and stoma noted. EXTREMITIES: No edema. 1+ pedal pulses. Laboratory Tests Test 06/04/18 04:00 White Blood Count 9.4 K/UL (4.8-10.8) Red Blood Count 4.64 M/UL (4.70-6.10) L Hemoglobin 13.3 G/DL (14.2-18.0) L Hematocrit 40.9 % (42.0-52.0) L Mean Corpuscular Volume 88 FL (80-99) Mean Corpuscular Hemoglobin 28.6 PG (27.0-31.0) Mean Corpuscular Hemoglobin Concent 32.5 G/DL (32.0-36.0) Red Cell Distribution Width 15.4 % (11.6-14.8) H Platelet Count 330 K/UL (150-450) Mean Platelet Volume 7.1 FL (6.5-10.1) Neutrophils (%) (Auto) 64.5 % (45.0-75.0) Lymphocytes (%) (Auto) 22.7 % (20.0-45.0) Monocytes (%) (Auto) 6.0 % (1.0-10.0) Eosinophils (%) (Auto) 6.4 % (0.0-3.0) H Basophils (%) (Auto) 0.4 % (0.0-2.0) Sodium Level 135 MMOL/L (136-145) L Potassium Level 4.0 MMOL/L (3.5-5.1) Chloride Level 100 MMOL/L (98-107) Carbon Dioxide Level 21 MMOL/L (21-32) Anion Gap 14 mmol/L (5-15) Blood Urea Nitrogen 18 mg/dL (7-18) Creatinine 1.0 MG/DL (0.55-1.30) Estimat Glomerular Filtration Rate > 60 mL/min (>60) Glucose Level 112 MG/DL (74-106) H Calcium Level 10.2 MG/DL (8.5-10.1) H Current Medications Medications (Trade) Dose Ordered Sig/Va Route PRN Reason Start Time Stop Time Status Last Admin Dose Admin Acetaminophen (Tylenol) 650 mg Q4H PRN ORAL FEVER 05/16/18 14:00 06/13/18 09:59 06/02/18 23:43 Baclofen (Lioresal) 10 mg EVERY 8 HOURS GT 05/20/18 14:00 06/13/18 12:59 06/04/18 05:14 Chlorhexidine Gluconate (Rebecca-Hex 2%) 1 applic DAILY@1999 TOPIC 05/16/18 20:00 06/13/18 19:59 06/03/18 20:12 Dextrose (Dextrose 50%) 25 ml STAT PRN IV Hypoglycemia 05/17/18 08:45 06/14/18 08:44 Dextrose (Dextrose 50%) 50 ml STAT PRN IV Hypoglycemia 05/17/18 08:45 06/14/18 08:44 Heparin Sodium (Porcine) (Heparin 5000 units/ml) 5,000 units EVERY 12 HOURS SUBQ 05/16/18 21:00 06/13/18 20:59 06/04/18 08:26 Insulin Aspart (NovoLOG) Q6HR SUBQ 05/16/18 18:00 06/14/18 11:29 06/03/18 23:53 Lansoprazole (Prevacid) 30 mg DAILY GT 05/17/18 09:00 06/15/18 08:59 06/04/18 08:27 Levetiracetam (Keppra) 1,000 mg Q8HR GT 05/16/18 14:00 06/13/18 12:59 06/04/18 05:14 Ondansetron HCl (Zofran) 4 mg Q6H PRN IVP Nausea & Vomiting 05/16/18 16:00 06/13/18 09:59 Polyethylene Glycol (Miralax) 17 gm BEDTIME GT 05/20/18 21:00 06/14/18 20:59 06/03/18 20:12 Vancomycin HCl (Vanco rx to dose) 1 ea DAILY PRN MISC PER RX PROTOCOL 05/18/18 13:15 06/17/18 13:14 Vancomycin HCl/ Dextrose 250 ml @ 125 mls/hr Q18H IVPB 05/29/18 21:00 06/05/18 20:59 06/04/18 02:06 Kali Richter M.D. Jun 04, 2018 08:41
--- NOTE | 2018-06-04 10:49 | Progress Note ---
DATE: 06/01/2018 SUBJECTIVE: The patient is afebrile. Hemodynamically stable without tachycardia. PHYSICAL EXAMINATION: VITAL SIGNS: Blood pressure 127/82, his pulse is 86, respirations 16, and temperature 99. HEENT: Eyes were normal. ENT, mucous membranes were moist and intact. NECK: Supple with no JVD without lymph nodes. Tracheostomy site is clean. LUNGS: Clear without rhonchi, rales, or wheezing. Secretions are small, thin, and whitish. HEART: Normal sounds with regular heart beats. There is no tachycardia. ABDOMEN: Soft and nontender with normal bowel sounds. Gastrostomy site is clean. EXTREMITIES: Warm without cyanosis, clubbing, or edema. LABORATORY AND DIAGNOSTIC DATA: His hemoglobin is 12.7, hematocrit 38.0 with MCV of 86, WBC of 8.1, and platelets 327,000. His BUN and creatinine are 16 and 1.1 respectively. Sodium is 132, potassium 3.8, chloride 100, and CO2 is 21. IMPRESSION AND PLAN: The patient is in stable condition. He remained unconscious, nonresponsive, but does not . Infectious processes appeared to be controlled. Repeat laboratory tests will be done in the a.m. Sariah Bhat M.D. DR: BENJY JOB#: [id number] CC:
--- NOTE | 2018-06-04 10:53 | Progress Note ---
DATE: 06/02/2018 SUBJECTIVE: The patient's condition remain stable. He is afebrile, hemodynamically stable without acute distress. PHYSICAL EXAMINATION: VITAL SIGNS: Blood pressure 109/76, his pulse is 82, respirations were 18, temperature 97.8 degrees. HEENT: Eyes were normal. ENT, mucous membranes were moist and intact. There is hypersalivation and saliva drooling from the left labial . NECK: Supple with no JVD without lymph nodes. Tracheostomy site is clean. LUNGS: Clear without rhonchi, rales, or wheezing. Secretions are small, thin, and whitish. HEART: Normal sounds with regular beats. There is no tachycardia at rest. Sinus rhythm on monitor. ABDOMEN: Soft and nontender with normal bowel sounds. Gastrostomy site is clean. EXTREMITIES: Warm without cyanosis, clubbing, or edema. LABORATORY AND DIAGNOSTIC DATA: His hemoglobin is 12.2, hematocrit 37.9 with 57, WBC of 8.7 and platelets 311. His BUN and creatinine is 17 and 1.0 respectively. His sodium is 135, potassium 3.5, chloride 101, and CO2 was 20. IMPRESSION: The patient is in stable condition. His condition has been stable for the last several days in regard to vital signs and laboratory findings. Repeat laboratory tests will be done in the morning. Sariah Bhat M.D. DR: ELISSA JOB#: [id number] CC:
--- NOTE | 2018-06-04 10:55 | Consultation ---
DATE OF CONSULTATION: 06/03/2018 INVASIVE CARDIOLOGY CONSULTATION CONSULTING PHYSICIAN: Harinder Shahid M.D. REFERRING PHYSICIANS: 1. Sariah Bhat M.D. 2. Nico Goetz M.D. REASON FOR CONSULTATION: Evaluation assessment for transesophageal echocardiography. HISTORY OF PRESENT ILLNESS: The patient is a very unfortunate 52-year-old gentleman, who presents by ambulance from [facility] for fever for about three hours initially. The patient was hemodynamically unstable initially with possibility of pneumonia, aggressively hydrated, which made him hemodynamically stable. He had grown Proteus mirabilis and Enterobacter as well as Staph epidermidis in his blood. Transthoracic echocardiography was inconclusive to rule out endocarditis. I was asked by primary care physician and Dr. Goetz, to evaluate this patient for transesophageal echocardiography. PAST SURGICAL HISTORY: Status post trach and PEG and colostomy bag placement. ALLERGIES: Aztreonam. MEDICATIONS: Baclofen, bisacodyl, calcium carbonate, chlorhexidine, gluconate, cholecalciferol, clonidine, cranberry, dextran, Colace, famotidine, Robinul, insulin regular, DuoNeb, Keppra, losartan, multivitamin, nystatin, polyethylene glycol, Januvia and Aldactone. REVIEW OF SYSTEMS: The patient is currently nonverbal. PHYSICAL EXAMINATION: VITAL SIGNS: Blood pressure is 121/78, respirations 19, pulse of 69, temperature 98.1 degrees Fahrenheit, and O2 saturation 100% on FiO2 of 30%. HEENT: Atraumatic and normocephalic. He has got a tracheostomy tube in place. The tongue is protruded. CARDIOVASCULAR: Normal S1, S2. Regular rhythm. A 2/6 mid systolic murmur at the left sternal border. PMI is at fourth intercostal space in the midclavicular line. LUNGS: Clear to auscultation bilaterally. ABDOMEN: Soft, nontender, and nondistended. No hepatosplenomegaly. Positive G-tube. EXTREMITIES: No evidence of edema, clubbing, or cyanosis. LABORATORY AND DIAGNOSTIC DATA: WBC 8.6, hemoglobin 13.7, hematocrit of 43.9, and platelet count is 350,000. Sodium 135, potassium 3.9, chloride 100, bicarbonate 21, BUN of 28, creatinine 1.0, and glucose is 102. Calcium is 10.3. Magnesium is 2.2. ASSESSMENT AND PLAN: The patient is a very unfortunate 52-year-old gentleman, seen in Invasive Cardiology consultation for evaluation, assessment, and transesophageal echocardiography. 1. Bacteremia with multiorganism Staphylococcus epidermidis. The patient has had no growth in the blood culture in the past week, however, since the transthoracic echocardiogram was inconclusive for endocarditis, we will like to proceed with transesophageal echocardiography. 2. Next of kin has already signed the informed consent after explaining the risks, benefits, and alternatives of the procedure. 3. The patient requires at least conscious sedation for this procedure. Thank you very much for involving me in the care of this patient. Harinder Shahid M.D. DR: BILLIE JOB#: [id number] CC:
--- NOTE | 2018-06-04 10:59 | Progress Note ---
DATE: 06/03/2018 SUBJECTIVE: The patient is afebrile, hemodynamically stable. PHYSICAL EXAMINATION: VITAL SIGNS: Blood pressure 109/55, pulse 87, respirations 16, and temperature 97.9. HEENT: Eyes were normal. ENT, mucous membranes were moist and intact. NECK: Supple with no JVD without lymph nodes. Tracheostomy site is clean. LUNGS: Clear without rhonchi, rales, or wheezing. Secretions are small, thin, and hodgson. HEART: Normal sounds with regular heart beat. There is no S3, S4, or pericardial rub. ABDOMEN: Soft and nontender with normal bowel sounds. Gastrostomy site is clean. EXTREMITIES: Warm without cyanosis, clubbing, or edema. LABORATORY AND DIAGNOSTIC DATA: Hemoglobin is 13.7, hematocrit 43.9, , WBC of 8.6, and platelets of 350. BUN and creatinine is 20 and 1.0 respectively. His sodium is 135, potassium 3.9, chloride 100, and CO2 is 21. His calcium is 10.3. His phosphorus is 2.1 and magnesium is 2.2. SGOT and SGPT are normal. Alkaline phosphatase is slightly elevated. Albumin is 3.9. Globulin is . Total protein was 9.3. Chest x-ray done today revealed unchanged left pleural effusion and blunt left costophrenic sulci, and otherwise in stable condition. Repeat laboratory tests will be done in the a.m. Sariah Bhat M.D. DR: AUSTEN JOB#: [id number] CC:
--- NOTE | 2018-06-04 11:54 | Cardiology Progress Note ---
Assessment/Plan Status: stable Assessment/Plan Assessment: (1) Acute on chronic respiratory failure (2) Acute on chronic renal insufficiency (3) Severe sepsis (4) Vegetative state (5) Colostomy in place (6) Diabetes mellitus Plan: Continue antibiotics Echocardiogram reviewed- no endocarditis, JOE unable to be performed Patient afebrile, normal WBC otherwise Continue trach care and tube feeds Continue keppra for seizures Continue abx treatment for six weeks via PICC line until 07/06 Dispo planning Subjective Cardiovascular: Reports: no symptoms Respiratory: Reports: no symptoms Gastrointestinal/Abdominal: Reports: no symptoms Genitourinary: Reports: no symptoms Subjective Afebrile vitals stable, Telemetry shows sinus rhythm. No acute events. Left pleural effusion unchanted. Ventilator settings: portex 7, AC 16, TV: 600, FiO2: 30%, PEEP: 5. GT is in place running glucerna 1.2 @ 65 ml/hr. No residual present. Colostomy bag in place. JOE not completed, probe unable to be passed. Patient should be treated for total six weeks abx for presumptive endocarditis at this juncture. Objective Last 24 Hour Vital Signs Date Time Temp Pulse Resp B/P (MAP) Pulse Ox O2 Delivery O2 Flow Rate FiO2 06/04/18 10:50 90 17 30 06/04/18 09:40 75 16 30 06/04/18 08:00 82 06/04/18 08:00 Mechanical Ventilator 06/04/18 08:00 98.2 78 16 119/79 (92) 99 98.2 06/04/18 08:00 30 06/04/18 06:54 88 18 30 06/04/18 05:20 82 16 30 06/04/18 04:00 30 06/04/18 04:00 98.1 79 18 121/69 (86) 99 98.1 06/04/18 04:00 Mechanical Ventilator 06/04/18 04:00 77 06/04/18 03:10 84 16 30 06/04/18 01:16 82 16 30 06/04/18 00:00 99.1 83 16 118/79 (92) 99 99.1 06/04/18 00:00 79 06/04/18 00:00 Mechanical Ventilator 06/04/18 00:00 30 06/03/18 23:18 77 16 30 06/03/18 20:54 80 16 30 06/03/18 20:00 97.9 76 18 109/85 (93) 100 97.9 06/03/18 20:00 Mechanical Ventilator 06/03/18 20:00 87 06/03/18 20:00 30 06/03/18 19:08 86 16 30 06/03/18 17:00 79 16 30 06/03/18 16:00 98.3 81 16 105/77 (86) 100 98.3 06/03/18 16:00 30 06/03/18 16:00 Mechanical Ventilator 06/03/18 16:00 79 06/03/18 15:13 80 16 30 06/03/18 14:18 208.0 81 20 100 06/03/18 13:15 74 16 30 06/03/18 12:03 97.1 82 16 99/79 (86) 100 97.1 06/03/18 12:00 30 06/03/18 12:00 78 06/03/18 12:00 Mechanical Ventilator General Appearance: no apparent distress, alert, on vent EENT: PERRL/EOMI, normal ENT inspection Neck: non-tender, normal alignment Rhythm: NSR Cardiovascular: normal peripheral pulses, normal rate Respiratory/Chest: chest wall non-tender, decreased breath sounds, crackles/ rales Abdomen: normal bowel sounds, non tender Extremities: normal range of motion, non-tender Neurologic: meat selector II-XII grossly normal Intake and Output 06/03/18 06/04/18 19:00 07:00 Intake Total 620.273 ml 900 ml Output Total 700 ml 1000 ml Balance -79.727 ml -100 ml Free Water 50 ml 50 ml IV Total 320.273 ml 250 ml Tube Feeding 250 ml 600 ml Output Urine Total 450 ml 525 ml Stool Total 250 ml 475 ml Laboratory Tests Test 06/04/18 04:00 White Blood Count 9.4 K/UL (4.8-10.8) Red Blood Count 4.64 M/UL (4.70-6.10) L Hemoglobin 13.3 G/DL (14.2-18.0) L Hematocrit 40.9 % (42.0-52.0) L Mean Corpuscular Volume 88 FL (80-99) Mean Corpuscular Hemoglobin 28.6 PG (27.0-31.0) Mean Corpuscular Hemoglobin Concent 32.5 G/DL (32.0-36.0) Red Cell Distribution Width 15.4 % (11.6-14.8) H Platelet Count 330 K/UL (150-450) Mean Platelet Volume 7.1 FL (6.5-10.1) Neutrophils (%) (Auto) 64.5 % (45.0-75.0) Lymphocytes (%) (Auto) 22.7 % (20.0-45.0) Monocytes (%) (Auto) 6.0 % (1.0-10.0) Eosinophils (%) (Auto) 6.4 % (0.0-3.0) H Basophils (%) (Auto) 0.4 % (0.0-2.0) Sodium Level 135 MMOL/L (136-145) L Potassium Level 4.0 MMOL/L (3.5-5.1) Chloride Level 100 MMOL/L (98-107) Carbon Dioxide Level 21 MMOL/L (21-32) Anion Gap 14 mmol/L (5-15) Blood Urea Nitrogen 18 mg/dL (7-18) Creatinine 1.0 MG/DL (0.55-1.30) Estimat Glomerular Filtration Rate > 60 mL/min (>60) Glucose Level 112 MG/DL (74-106) H Calcium Level 10.2 MG/DL (8.5-10.1) H Kali Owens M.D. Jun 04, 2018 11:54
--- NOTE | 2018-06-04 11:55 | General Progress Note ---
Assessment/Plan Status: stable Assessment/Plan # Leukocytosis - Sepsis with elevated temperature of 103 degrees Fahrenheit. Had uti v bacteremia (CoNS) on abx, has improved. --> Pt on antibiotics, has received a dose of Zosyn and currently is on vancomycin q.12 h. now on cefepime --> Appreciate Infectious Disease recs --> 2D echo per ID performed on 05/22: No discrete vegetations seen, however SBE may not be excluded by transthoracic 2-D echo. --> 06/04: WBC of 9.4, wnl --> Currently afebrile # Anemia of chronic disease. No hemolysis, peripheral smear reviewed, ferritin was elevated. --> Continue to closely monitor --> Hgb goal >7 --> 06/04: Hgb 13.3 # Acute kidney injury. --> Currently on IV fluids, IV bolus given to see if the patient responds along with IV pressor as needed. --> Closely monitor with Nephrology team. # Septic shock, use antibiotic per ID services. --> potential uti, on abx and bacteremia # Respiratory failure, status post tracheostomy, on mechanical ventilation per Dr. Goetz --> Remains on vent --> 06/03 CXR: Unchanged left pleural effusion versus scarring, over 4 days # Hypercalcemia. Monitor PTH and calcium level. --> 06/02: 9.7, wnl The time the note was entered does not necessarily correspond to the time the patient was seen. Subjective Date patient seen: Jun 04, 2018 ROS Limited/Unobtainable: Yes Hematologic/Lymphatic: Reports: anemia Allergies: Coded Allergies: AZTREONAM (Verified Allergy, Unknown, 05/13/18) All Systems: reviewed and negative except above Subjective Pt remains obtunded and astable.. No acute events. H/H stable. Objective Last 24 Hour Vital Signs Date Time Temp Pulse Resp B/P (MAP) Pulse Ox O2 Delivery O2 Flow Rate FiO2 06/04/18 10:50 90 17 30 06/04/18 09:40 75 16 30 06/04/18 08:00 82 06/04/18 08:00 Mechanical Ventilator 06/04/18 08:00 98.2 78 16 119/79 (92) 99 98.2 06/04/18 08:00 30 06/04/18 06:54 88 18 30 06/04/18 05:20 82 16 30 06/04/18 04:00 30 06/04/18 04:00 98.1 79 18 121/69 (86) 99 98.1 06/04/18 04:00 Mechanical Ventilator 06/04/18 04:00 77 06/04/18 03:10 84 16 30 06/04/18 01:16 82 16 30 06/04/18 00:00 99.1 83 16 118/79 (92) 99 99.1 06/04/18 00:00 79 06/04/18 00:00 Mechanical Ventilator 06/04/18 00:00 30 06/03/18 23:18 77 16 30 06/03/18 20:54 80 16 30 06/03/18 20:00 97.9 76 18 109/85 (93) 100 97.9 06/03/18 20:00 Mechanical Ventilator 06/03/18 20:00 87 06/03/18 20:00 30 06/03/18 19:08 86 16 30 06/03/18 17:00 79 16 30 06/03/18 16:00 98.3 81 16 105/77 (86) 100 98.3 06/03/18 16:00 30 06/03/18 16:00 Mechanical Ventilator 06/03/18 16:00 79 06/03/18 15:13 80 16 30 06/03/18 14:18 208.0 81 20 100 06/03/18 13:15 74 16 30 06/03/18 12:03 97.1 82 16 99/79 (86) 100 97.1 06/03/18 12:00 30 06/03/18 12:00 78 06/03/18 12:00 Mechanical Ventilator Intake and Output 06/03/18 06/04/18 19:00 07:00 Intake Total 620.273 ml 900 ml Output Total 700 ml 1000 ml Balance -79.727 ml -100 ml Free Water 50 ml 50 ml IV Total 320.273 ml 250 ml Tube Feeding 250 ml 600 ml Output Urine Total 450 ml 525 ml Stool Total 250 ml 475 ml Laboratory Tests 06/04/18 04:00: White Blood Count 9.4, Red Blood Count 4.64L, Hemoglobin 13.3L, Hematocrit 40.9L , Mean Corpuscular Volume 88, Mean Corpuscular Hemoglobin 28.6, Mean Corpuscular Hemoglobin Concent 32.5, Red Cell Distribution Width 15.4H, Platelet Count 330, Mean Platelet Volume 7.1, Neutrophils (%) (Auto) 64.5, Lymphocytes (%) (Auto) 22.7, Monocytes (%) (Auto) 6.0, Eosinophils (%) (Auto) 6.4H, Basophils (%) (Auto) 0.4, Sodium Level 135L, Potassium Level 4.0, Chloride Level 100, Carbon Dioxide Level 21, Anion Gap 14, Blood Urea Nitrogen 18, Creatinine 1.0, Estimat Glomerular Filtration Rate > 60, Glucose Level 112H , Calcium Level 10.2H Height (Feet): 6 Height (Inches): 0.00 Weight (Pounds): 201 General Appearance: no apparent distress EENT: PERRL/EOMI Neck: normal alignment Cardiovascular: normal peripheral pulses Respiratory/Chest: no respiratory distress Abdomen: soft Jimmy Fleming MD Jun 04, 2018 11:55
[2018-06-04 12:00] VITALS: BP 128/77
--- NOTE | 2018-06-04 13:37 | GI Progress Note ---
Assessment/Plan Problems: (1) Parastomal hernia ICD Codes: K43.5 - Parastomal hernia without obstruction or gangrene SNOMED: 165266721 Qualifiers: Qualified Codes: K43.5 - Parastomal hernia without obstruction or gangrene (2) Stoma malfunction SNOMED: 848492541 (3) Colostomy in place ICD Codes: Z93.3 - Colostomy status SNOMED: 376443214, 875856098 (4) Vegetative state ICD Codes: R40.3 - Persistent vegetative state SNOMED: 78887628 (5) Diabetes mellitus ICD Codes: E11.9 - Type 2 diabetes mellitus without complications SNOMED: 39480202 (6) Acute on chronic respiratory failure ICD Codes: J96.20 - Acute and chronic respiratory failure, unspecified whether with hypoxia or hypercapnia SNOMED: 56105067 (7) Severe sepsis ICD Codes: A41.9 - Sepsis, unspecified organism; R65.20 - Severe sepsis without septic shock SNOMED: 39987291 Status: unchanged Status Narrative Discussed with Dr. Prater. Assessment/Plan prolapse stoma assessed >> no s/sx of infection. no obstruction. anemia work up reviewed >> iron deficiency G tube dependent hepatitis panel negative OB negative supportive care monitor H&H, prn transfusions venofer ppi GTFs per RD, adv to goal GT site care daily/prn abx bowel regime fu labs The patient was seen and examined at bedside and all new and available data was reviewed in the patients chart. I agree with the above findings, impression and plan. (Patient seen earlier today. Signature stamp does not reflect patient encounter time.). - Dae Prater MD Subjective Subjective limited Objective Last 24 Hour Vital Signs Date Time Temp Pulse Resp B/P (MAP) Pulse Ox O2 Delivery O2 Flow Rate FiO2 06/04/18 13:20 79 16 30 06/04/18 12:00 74 06/04/18 12:00 98.2 76 16 128/77 (94) 99 98.2 06/04/18 10:50 90 17 30 06/04/18 09:40 75 16 30 06/04/18 08:00 82 06/04/18 08:00 Mechanical Ventilator 06/04/18 08:00 98.2 78 16 119/79 (92) 99 98.2 06/04/18 08:00 30 06/04/18 06:54 88 18 30 06/04/18 05:20 82 16 30 06/04/18 04:00 30 06/04/18 04:00 98.1 79 18 121/69 (86) 99 98.1 06/04/18 04:00 Mechanical Ventilator 06/04/18 04:00 77 06/04/18 03:10 84 16 30 06/04/18 01:16 82 16 30 06/04/18 00:00 99.1 83 16 118/79 (92) 99 99.1 06/04/18 00:00 79 06/04/18 00:00 Mechanical Ventilator 06/04/18 00:00 30 06/03/18 23:18 77 16 30 06/03/18 20:54 80 16 30 06/03/18 20:00 97.9 76 18 109/85 (93) 100 97.9 06/03/18 20:00 Mechanical Ventilator 06/03/18 20:00 87 06/03/18 20:00 30 06/03/18 19:08 86 16 30 06/03/18 17:00 79 16 30 06/03/18 16:00 98.3 81 16 105/77 (86) 100 98.3 06/03/18 16:00 30 06/03/18 16:00 Mechanical Ventilator 06/03/18 16:00 79 06/03/18 15:13 80 16 30 06/03/18 14:18 208.0 81 20 100 Intake and Output 06/03/18 06/04/18 19:00 07:00 Intake Total 620.273 ml 900 ml Output Total 700 ml 1000 ml Balance -79.727 ml -100 ml Free Water 50 ml 50 ml IV Total 320.273 ml 250 ml Tube Feeding 250 ml 600 ml Output Urine Total 450 ml 525 ml Stool Total 250 ml 475 ml Laboratory Tests Test 06/04/18 04:00 White Blood Count 9.4 K/UL (4.8-10.8) Red Blood Count 4.64 M/UL (4.70-6.10) L Hemoglobin 13.3 G/DL (14.2-18.0) L Hematocrit 40.9 % (42.0-52.0) L Mean Corpuscular Volume 88 FL (80-99) Mean Corpuscular Hemoglobin 28.6 PG (27.0-31.0) Mean Corpuscular Hemoglobin Concent 32.5 G/DL (32.0-36.0) Red Cell Distribution Width 15.4 % (11.6-14.8) H Platelet Count 330 K/UL (150-450) Mean Platelet Volume 7.1 FL (6.5-10.1) Neutrophils (%) (Auto) 64.5 % (45.0-75.0) Lymphocytes (%) (Auto) 22.7 % (20.0-45.0) Monocytes (%) (Auto) 6.0 % (1.0-10.0) Eosinophils (%) (Auto) 6.4 % (0.0-3.0) H Basophils (%) (Auto) 0.4 % (0.0-2.0) Sodium Level 135 MMOL/L (136-145) L Potassium Level 4.0 MMOL/L (3.5-5.1) Chloride Level 100 MMOL/L (98-107) Carbon Dioxide Level 21 MMOL/L (21-32) Anion Gap 14 mmol/L (5-15) Blood Urea Nitrogen 18 mg/dL (7-18) Creatinine 1.0 MG/DL (0.55-1.30) Estimat Glomerular Filtration Rate > 60 mL/min (>60) Glucose Level 112 MG/DL (74-106) H Calcium Level 10.2 MG/DL (8.5-10.1) H Height (Feet): 6 Height (Inches): 0.00 Weight (Pounds): 201 General Appearance: alert Cardiovascular: normal rate Respiratory/Chest: no respiratory distress, other - trach to vent Abdominal Exam: soft, GT site, other - colostomy Boyd Emmanuel NP Jun 04, 2018 13:37
--- NOTE | 2018-06-04 14:21 | 48 Hour Post Anesthesia Eval ---
Post Anesthesia Evaluation Procedure: JOE Date of Evaluation: Jun 04, 2018 Time of Evaluation: 14:40 Blood Pressure Systolic: 128 0: 77 Pulse Rate: 77 Respiratory Rate: 16 Temperature (Fahrenheit): 98.2 O2 Sat by Pulse Oximetry: 99 Airway: patent Nausea: No Vomiting: No Pain Intensity: 0 Hydration Status: adequate Cardiopulmonary Status: Stable Mental Status/LOC: patient returned to baseline Follow-up Care/Observations: As per cardiology Post-Anesthesia Complications: No anesthetic complication Follow-up care needed: N/A Justin Waldron MD Jun 04, 2018 14:21
--- NOTE | 2018-06-04 15:15 | Pulmonolgy Critical Care Note ---
Critical Care - Asmt/Plan Problems: (1) Acute on chronic respiratory failure (2) Acute on chronic renal insufficiency (3) Severe sepsis (4) Vegetative state (5) Colostomy in place (6) Diabetes mellitus Respiratory: monitor respiratory rate Cardiac: start pressors, continue to monitor HR/BP Renal: F/U I&O Infectious Disease: check cultures Gastrointestinal: continue feedings/current rate Endocrine: monitor blood sugar Hematologic: monitor H/H Neurologic: PRN Morphine, keep patient comfortable Prophylaxis: Heparin Notes Reviewed: cardio Discussed with: nurses, consultants, case managerssenior facilities manager - Objective Last 24 Hour Vital Signs Date Time Temp Pulse Resp B/P (MAP) Pulse Ox O2 Delivery O2 Flow Rate FiO2 06/04/18 14:21 208.8 77 16 99 06/04/18 13:20 79 16 30 06/04/18 12:00 74 06/04/18 12:00 Mechanical Ventilator 06/04/18 12:00 30 06/04/18 12:00 98.2 76 16 128/77 (94) 99 98.2 06/04/18 10:50 90 17 30 06/04/18 09:40 75 16 30 06/04/18 08:00 82 06/04/18 08:00 Mechanical Ventilator 06/04/18 08:00 98.2 78 16 119/79 (92) 99 98.2 06/04/18 08:00 30 06/04/18 06:54 88 18 30 06/04/18 05:20 82 16 30 06/04/18 04:00 30 06/04/18 04:00 98.1 79 18 121/69 (86) 99 98.1 06/04/18 04:00 Mechanical Ventilator 06/04/18 04:00 77 06/04/18 03:10 84 16 30 06/04/18 01:16 82 16 30 06/04/18 00:00 99.1 83 16 118/79 (92) 99 99.1 06/04/18 00:00 79 06/04/18 00:00 Mechanical Ventilator 06/04/18 00:00 30 06/03/18 23:18 77 16 30 06/03/18 20:54 80 16 30 06/03/18 20:00 97.9 76 18 109/85 (93) 100 97.9 06/03/18 20:00 Mechanical Ventilator 06/03/18 20:00 87 06/03/18 20:00 30 06/03/18 19:08 86 16 30 06/03/18 17:00 79 16 30 06/03/18 16:00 98.3 81 16 105/77 (86) 100 98.3 06/03/18 16:00 30 06/03/18 16:00 Mechanical Ventilator 06/03/18 16:00 79 Status: awake Condition: critical Neck: full ROM Heart: HR/BP stable, HR/BP unstable Abdomen: soft, non-tender, feeding tube Extremities: edema Accucheck: 114 Critical Care - Subjective ROS Limited/Unobtainable: No Condition: critical EKG Rhythm: Sinus Bradycardia FI02: 30 Vent Support Breath Rate: 16 Vent Support Mode: AC Vent Tidal Volume: 600 Sputum Amount: Small PEEP: 5.0 PIP: 30 Tube Feeding Amount: 50 I&O: Intake and Output 06/03/18 06/04/18 19:00 07:00 Intake Total 620.273 ml 900 ml Output Total 700 ml 1000 ml Balance -79.727 ml -100 ml Free Water 50 ml 50 ml IV Total 320.273 ml 250 ml Tube Feeding 250 ml 600 ml Output Urine Total 450 ml 525 ml Stool Total 250 ml 475 ml Labs: Laboratory Tests Test 06/04/18 04:00 White Blood Count 9.4 K/UL (4.8-10.8) Red Blood Count 4.64 M/UL (4.70-6.10) L Hemoglobin 13.3 G/DL (14.2-18.0) L Hematocrit 40.9 % (42.0-52.0) L Mean Corpuscular Volume 88 FL (80-99) Mean Corpuscular Hemoglobin 28.6 PG (27.0-31.0) Mean Corpuscular Hemoglobin Concent 32.5 G/DL (32.0-36.0) Red Cell Distribution Width 15.4 % (11.6-14.8) H Platelet Count 330 K/UL (150-450) Mean Platelet Volume 7.1 FL (6.5-10.1) Neutrophils (%) (Auto) 64.5 % (45.0-75.0) Lymphocytes (%) (Auto) 22.7 % (20.0-45.0) Monocytes (%) (Auto) 6.0 % (1.0-10.0) Eosinophils (%) (Auto) 6.4 % (0.0-3.0) H Basophils (%) (Auto) 0.4 % (0.0-2.0) Sodium Level 135 MMOL/L (136-145) L Potassium Level 4.0 MMOL/L (3.5-5.1) Chloride Level 100 MMOL/L (98-107) Carbon Dioxide Level 21 MMOL/L (21-32) Anion Gap 14 mmol/L (5-15) Blood Urea Nitrogen 18 mg/dL (7-18) Creatinine 1.0 MG/DL (0.55-1.30) Estimat Glomerular Filtration Rate > 60 mL/min (>60) Glucose Level 112 MG/DL (74-106) H Calcium Level 10.2 MG/DL (8.5-10.1) H Nico Goetz MD Jun 04, 2018 15:15
[2018-06-04 16:00] VITALS: BP 121/75
[2018-06-04 20:20] VITALS: BP 117/70
[2018-06-04] MEDS: Dyna-Hex 2% Top Sol 2oz TOPIC SCH (20:21)
[2018-06-04] MEDS: Miralax 17gm pkt GT SCH (20:22)
[2018-06-05] VITALS (7 sets, daily range): BP systolic 113–123; BP diastolic 73–82
--- NOTE | 2018-06-05 03:46 | Progress Note ---
DATE: 06/04/2018 SUBJECTIVE: The patient is afebrile and hemodynamically stable. Eyes are open, but with no eye contact. His tongue is protruded and had rhythmic movement at the rate of his heart. PHYSICAL EXAMINATION: VITAL SIGNS: Blood pressure 117/70s, pulse is 71, respirations were 16, and temperature of 98.1 degrees. HEENT: Eyes were normal. ENT, mucous membranes were moist and intact. NECK: Supple with no JVD without lymph nodes. Tracheostomy site is clean. LUNGS: Clear without rhonchi, rales, or wheezing. Secretions are small, thin, and whitish. HEART: Normal sounds with regular beats. There is no S3, S4, or pericardial rub. ABDOMEN: Soft and nontender with normal bowel sounds. Gastrostomy site is clean. EXTREMITIES: Warm without cyanosis, clubbing, or edema. LABORATORY AND DIAGNOSTIC DATA: His hemoglobin is 13.3, hematocrit is 40.9 with MCV of 88, WBC of 9.4, and platelets are 330. His BUN and creatinine are 18 and 1.0, respectively. His sodium is 135, potassium 4.0, chloride 100, and CO2 is 21. IMPRESSION AND PLAN: 1. The patient has intracerebral hemorrhage. He has been in stable condition. There are no cognitive changes. 2. The patient is respiratory-dependent. We will continue with the same respiratory setting. Continue him with his albuterol sulfate, ipratropium bromide inhalation therapy every 6 hours. 3. The patient has tracheostomy. Continue to monitor O2 saturation and bronchial secretion. 4. The patient has gastrostomy feeding. No gastric residual. Continue with 6 hours. 5. The patient is on antibiotic vancomycin 250 mg IV piggyback q.18 hours. 6. The patient deep vein thrombosis prevention program. We will continue with heparin 5000 units subcutaneously q.12 hours. 7. The patient has seizure disorder, had no new seizure. Continue with levetiracetam 1 g IV piggyback q.12 hours. Repeat laboratory tests will be done in the morning. Sariah Bhat M.D. DR: ELISSA JOB#: [id number] CC:
[2018-06-05 04:38] LABS: BASOPHILS % (AUTO) 0.9 % (0.0-2.0); EOSINOPHILS % (AUTO) 7.7 % (0.0-3.0); HEMATOCRIT 41.2 % (42.0-52.0); LYMPHOCYTES % (AUTO) 25.2 % (20.0-45.0); MEAN CORPUSCULAR VOLUME 88 FL (80-99); MONOCYTES % (AUTO) 8.4 % (1.0-10.0); NEUTROPHILS % (AUTO) 57.7 % (45.0-75.0); PLATELET COUNT 322 K/UL (150-450); RED BLOOD COUNT 4.69 M/UL (4.70-6.10); RED CELL DISTRIBUTION WIDTH 15.4 % (11.6-14.8); WHITE BLOOD COUNT 7.5 K/UL (4.8-10.8)
[2018-06-05 04:54] LABS: ANION GAP 13 mmol/L (5-15); BLOOD UREA NITROGEN 20 mg/dL (7-18); CALCIUM 10.2 MG/DL (8.5-10.1); CARBON DIOXIDE 22 MMOL/L (21-32); CHLORIDE 102 MMOL/L (98-107); POTASSIUM 3.9 MMOL/L (3.5-5.1); SODIUM 137 MMOL/L (136-145)
[2018-06-05] MEDS: NovoLOG Insulin Flexpen SUBQ SCH ×5 (06:00→23:58)
[2018-06-05] MEDS: levETIRAcetam 500mg/5ml Liquid GT SCH ×3 (06:35→21:36)
--- NOTE | 2018-06-05 08:26 | Nephrology Progress Note ---
Assessment/Plan Assessment/Plan 1. DIVYA- resolved. Will sign off today. 2. Sepsis- on Abx. 3. Chronic Resp FL- trached on vent 4. Hyponatremia - resolved. Will sign off today 5. ARNIE- Luis Alberto -monitor NA for now 6. Hypophos- corrected I will be out until SundayJun [address] Ibarra with any inquiries Subjective Date patient seen: Jun 05, 2018 Time patient seen: 08:23 ROS Limited/Unobtainable: Yes Allergies: Coded Allergies: AZTREONAM (Verified Allergy, Unknown, 05/13/18) Subjective Patient trached/vent. Objective Last 24 Hour Vital Signs Date Time Temp Pulse Resp B/P (MAP) Pulse Ox O2 Delivery O2 Flow Rate FiO2 06/05/18 08:07 73 06/05/18 08:00 Mechanical Ventilator 06/05/18 08:00 30 06/05/18 08:00 98.3 76 16 120/77 (91) 97 98.3 06/05/18 05:05 99 16 30 06/05/18 04:00 98.3 77 16 123/80 (94) 99 98.3 06/05/18 04:00 74 06/05/18 04:00 Mechanical Ventilator 06/05/18 04:00 30 06/05/18 03:49 79 16 30 06/05/18 01:17 77 16 30 06/05/18 00:00 30 06/05/18 00:00 99.1 78 16 117/78 (91) 99 99.1 06/05/18 00:00 Mechanical Ventilator 06/05/18 00:00 74 06/04/18 23:13 80 16 30 06/04/18 20:52 75 16 30 06/04/18 20:20 98.1 71 16 117/70 (86) 99 98.1 06/04/18 20:00 74 06/04/18 19:55 30 06/04/18 19:50 Mechanical Ventilator 06/04/18 18:55 74 16 30 06/04/18 16:51 77 16 30 06/04/18 16:00 30 06/04/18 16:00 75 06/04/18 16:00 98.3 73 16 121/75 (90) 100 98.3 06/04/18 16:00 Mechanical Ventilator 06/04/18 14:47 71 16 30 06/04/18 14:21 208.8 77 16 99 06/04/18 13:20 79 16 30 06/04/18 12:00 74 06/04/18 12:00 Mechanical Ventilator 06/04/18 12:00 30 06/04/18 12:00 98.2 76 16 128/77 (94) 99 98.2 06/04/18 10:50 90 17 30 06/04/18 09:40 75 16 30 Intake and Output 06/04/18 06/05/18 19:00 07:00 Intake Total 750 ml 900 ml Output Total 850 ml 975 ml Balance -100 ml -75 ml Free Water 150 ml IV Total 250 ml Tube Feeding 600 ml 550 ml Other 100 ml Output Urine Total 450 ml 425 ml Stool Total 400 ml 550 ml Laboratory Tests 06/05/18 04:00: White Blood Count 7.5, Red Blood Count 4.69L, Hemoglobin 13.0L, Hematocrit 41.2L , Mean Corpuscular Volume 88, Mean Corpuscular Hemoglobin 27.8, Mean Corpuscular Hemoglobin Concent 31.6L, Red Cell Distribution Width 15.4H, Platelet Count 322, Mean Platelet Volume 7.6, Neutrophils (%) (Auto) 57.7, Lymphocytes (%) (Auto) 25.2, Monocytes (%) (Auto) 8.4, Eosinophils (%) (Auto) 7.7H, Basophils (%) (Auto) 0.9, Sodium Level 137, Potassium Level 3.9, Chloride Level 102, Carbon Dioxide Level 22, Anion Gap 13, Blood Urea Nitrogen 20H, Creatinine 1.0, Estimat Glomerular Filtration Rate > 60, Glucose Level 94, Calcium Level 10.2H Height (Feet): 6 Height (Inches): 0.00 Weight (Pounds): 192 General Appearance: WD/WN, no apparent distress EENT: PERRL/EOMI Neck: non-tender Cardiovascular: normal rate, regular rhythm Respiratory/Chest: lungs clear Abdomen: non tender, soft Edema: no edema noted Arm (L), no edema noted Arm (R), no edema noted Leg (L), no edema noted Leg (R), no edema noted Pedal (L), no edema noted Pedal (R), no edema noted Generalized Mir Gann M.D. Jun 05, 2018 08:26
[2018-06-05] MEDS: Heparin 5000 units/ml inj SUBQ SCH ×2 (08:51→21:49)
--- NOTE | 2018-06-05 09:54 | Cardiology Progress Note ---
Assessment/Plan Status: stable Assessment/Plan Assessment: (1) Acute on chronic respiratory failure (2) Acute on chronic renal insufficiency (3) Severe sepsis (4) Vegetative state (5) Colostomy in place (6) Diabetes mellitus Plan: Continue antibiotics Echocardiogram reviewed- no endocarditis, JOE unable to be performed Patient afebrile, normal WBC otherwise Continue trach care and tube feeds Continue keppra for seizures Continue abx treatment for six weeks via PICC line until 07/06 Dispo planning Subjective Cardiovascular: Reports: no symptoms Respiratory: Reports: no symptoms Gastrointestinal/Abdominal: Reports: no symptoms Genitourinary: Reports: no symptoms Subjective Afebrile vitals stable, Telemetry shows sinus rhythm. No acute events. Left pleural effusion unchanged. Ventilator settings: portex 7, AC 16, TV: 600, FiO2: 30%, PEEP: 5. GT is in place running glucerna 1.2 @ 65 ml/hr. No residual present. Colostomy bag in place. JOE not completed, probe unable to be passed. Patient should be treated for total six weeks abx for presumptive endocarditis at this juncture. Hyponatremia resolved, DIVYA resolved, patient stable . Objective Last 24 Hour Vital Signs Date Time Temp Pulse Resp B/P (MAP) Pulse Ox O2 Delivery O2 Flow Rate FiO2 06/05/18 08:07 73 06/05/18 08:00 Mechanical Ventilator 06/05/18 08:00 30 06/05/18 08:00 98.3 76 16 120/77 (91) 97 98.3 06/05/18 06:31 73 16 30 06/05/18 05:05 99 16 30 06/05/18 04:00 98.3 77 16 123/80 (94) 99 98.3 06/05/18 04:00 74 06/05/18 04:00 Mechanical Ventilator 06/05/18 04:00 30 06/05/18 03:49 79 16 30 06/05/18 01:17 77 16 30 06/05/18 00:00 30 06/05/18 00:00 99.1 78 16 117/78 (91) 99 99.1 06/05/18 00:00 Mechanical Ventilator 06/05/18 00:00 74 06/04/18 23:13 80 16 30 06/04/18 20:52 75 16 30 06/04/18 20:20 98.1 71 16 117/70 (86) 99 98.1 06/04/18 20:00 74 06/04/18 19:55 30 06/04/18 19:50 Mechanical Ventilator 06/04/18 18:55 74 16 30 06/04/18 16:51 77 16 30 06/04/18 16:00 30 06/04/18 16:00 75 06/04/18 16:00 98.3 73 16 121/75 (90) 100 98.3 06/04/18 16:00 Mechanical Ventilator 06/04/18 14:47 71 16 30 06/04/18 14:21 208.8 77 16 99 06/04/18 13:20 79 16 30 06/04/18 12:00 74 06/04/18 12:00 Mechanical Ventilator 06/04/18 12:00 30 06/04/18 12:00 98.2 76 16 128/77 (94) 99 98.2 06/04/18 10:50 90 17 30 General Appearance: no apparent distress, on vent EENT: PERRL/EOMI, normal ENT inspection Neck: non-tender, normal alignment Rhythm: NSR Cardiovascular: normal peripheral pulses, normal rate Respiratory/Chest: chest wall non-tender, lungs clear Abdomen: normal bowel sounds, non tender Extremities: normal range of motion, non-tender Neurologic: abnormal CN, motor weakness, sensory deficit Intake and Output 06/04/18 06/05/18 19:00 07:00 Intake Total 750 ml 950 ml Output Total 850 ml 975 ml Balance -100 ml -25 ml Free Water 150 ml IV Total 250 ml Tube Feeding 600 ml 600 ml Other 100 ml Output Urine Total 450 ml 425 ml Stool Total 400 ml 550 ml Laboratory Tests Test 06/05/18 04:00 White Blood Count 7.5 K/UL (4.8-10.8) Red Blood Count 4.69 M/UL (4.70-6.10) L Hemoglobin 13.0 G/DL (14.2-18.0) L Hematocrit 41.2 % (42.0-52.0) L Mean Corpuscular Volume 88 FL (80-99) Mean Corpuscular Hemoglobin 27.8 PG (27.0-31.0) Mean Corpuscular Hemoglobin Concent 31.6 G/DL (32.0-36.0) L Red Cell Distribution Width 15.4 % (11.6-14.8) H Platelet Count 322 K/UL (150-450) Mean Platelet Volume 7.6 FL (6.5-10.1) Neutrophils (%) (Auto) 57.7 % (45.0-75.0) Lymphocytes (%) (Auto) 25.2 % (20.0-45.0) Monocytes (%) (Auto) 8.4 % (1.0-10.0) Eosinophils (%) (Auto) 7.7 % (0.0-3.0) H Basophils (%) (Auto) 0.9 % (0.0-2.0) Sodium Level 137 MMOL/L (136-145) Potassium Level 3.9 MMOL/L (3.5-5.1) Chloride Level 102 MMOL/L (98-107) Carbon Dioxide Level 22 MMOL/L (21-32) Anion Gap 13 mmol/L (5-15) Blood Urea Nitrogen 20 mg/dL (7-18) H Creatinine 1.0 MG/DL (0.55-1.30) Estimat Glomerular Filtration Rate > 60 mL/min (>60) Glucose Level 94 MG/DL (74-106) Calcium Level 10.2 MG/DL (8.5-10.1) H Kali Owens M.D. Jun 05, 2018 09:54
--- NOTE | 2018-06-05 11:22 | GI Progress Note ---
Assessment/Plan Problems: (1) Parastomal hernia ICD Codes: K43.5 - Parastomal hernia without obstruction or gangrene SNOMED: 484065057 Qualifiers: Qualified Codes: K43.5 - Parastomal hernia without obstruction or gangrene (2) Stoma malfunction SNOMED: 313819860 (3) Colostomy in place ICD Codes: Z93.3 - Colostomy status SNOMED: 576710824, 180543668 (4) Vegetative state ICD Codes: R40.3 - Persistent vegetative state SNOMED: 96026970 (5) Diabetes mellitus ICD Codes: E11.9 - Type 2 diabetes mellitus without complications SNOMED: 76836531 (6) Acute on chronic respiratory failure ICD Codes: J96.20 - Acute and chronic respiratory failure, unspecified whether with hypoxia or hypercapnia SNOMED: 21108712 (7) Severe sepsis ICD Codes: A41.9 - Sepsis, unspecified organism; R65.20 - Severe sepsis without septic shock SNOMED: 32400026 Status: stable Status Narrative Discussed with Dr. Prater. Assessment/Plan parastomal >> no s/sx of infection. no obstruction. anemia work up reviewed >> iron deficiency G tube dependent hepatitis panel negative OB negative supportive care monitor H&H, prn transfusions venofer ppi GTFs per RD, adv to goal GT site care daily/prn abx bowel regime fu labs dc planning The patient was seen and examined at bedside and all new and available data was reviewed in the patients chart. I agree with the above findings, impression and plan. (Patient seen earlier today. Signature stamp does not reflect patient encounter time.). - Dae Prater MD Subjective Subjective limited Objective Last 24 Hour Vital Signs Date Time Temp Pulse Resp B/P (MAP) Pulse Ox O2 Delivery O2 Flow Rate FiO2 06/05/18 09:00 76 16 30 06/05/18 08:07 73 06/05/18 08:00 Mechanical Ventilator 06/05/18 08:00 30 06/05/18 08:00 98.3 76 16 120/77 (91) 97 98.3 06/05/18 06:31 73 16 30 06/05/18 05:05 99 16 30 06/05/18 04:00 98.3 77 16 123/80 (94) 99 98.3 06/05/18 04:00 74 8/15/18 04:00 Mechanical Ventilator 06/05/18 04:00 30 06/05/18 03:49 79 16 30 06/05/18 01:17 77 16 30 06/05/18 00:00 30 06/05/18 00:00 99.1 78 16 117/78 (91) 99 99.1 06/05/18 00:00 Mechanical Ventilator 06/05/18 00:00 74 06/04/18 23:13 80 16 30 06/04/18 20:52 75 16 30 06/04/18 20:20 98.1 71 16 117/70 (86) 99 98.1 06/04/18 20:00 74 06/04/18 19:55 30 06/04/18 19:50 Mechanical Ventilator 06/04/18 18:55 74 16 30 06/04/18 16:51 77 16 30 06/04/18 16:00 30 06/04/18 16:00 75 06/04/18 16:00 98.3 73 16 121/75 (90) 100 98.3 06/04/18 16:00 Mechanical Ventilator 06/04/18 14:47 71 16 30 06/04/18 14:21 208.8 77 16 99 06/04/18 13:20 79 16 30 06/04/18 12:00 74 06/04/18 12:00 Mechanical Ventilator 06/04/18 12:00 30 06/04/18 12:00 98.2 76 16 128/77 (94) 99 98.2 Intake and Output 06/04/18 06/05/18 19:00 07:00 Intake Total 750 ml 950 ml Output Total 850 ml 975 ml Balance -100 ml -25 ml Free Water 150 ml IV Total 250 ml Tube Feeding 600 ml 600 ml Other 100 ml Output Urine Total 450 ml 425 ml Stool Total 400 ml 550 ml Laboratory Tests Test 06/05/18 04:00 White Blood Count 7.5 K/UL (4.8-10.8) Red Blood Count 4.69 M/UL (4.70-6.10) L Hemoglobin 13.0 G/DL (14.2-18.0) L Hematocrit 41.2 % (42.0-52.0) L Mean Corpuscular Volume 88 FL (80-99) Mean Corpuscular Hemoglobin 27.8 PG (27.0-31.0) Mean Corpuscular Hemoglobin Concent 31.6 G/DL (32.0-36.0) L Red Cell Distribution Width 15.4 % (11.6-14.8) H Platelet Count 322 K/UL (150-450) Mean Platelet Volume 7.6 FL (6.5-10.1) Neutrophils (%) (Auto) 57.7 % (45.0-75.0) Lymphocytes (%) (Auto) 25.2 % (20.0-45.0) Monocytes (%) (Auto) 8.4 % (1.0-10.0) Eosinophils (%) (Auto) 7.7 % (0.0-3.0) H Basophils (%) (Auto) 0.9 % (0.0-2.0) Sodium Level 137 MMOL/L (136-145) Potassium Level 3.9 MMOL/L (3.5-5.1) Chloride Level 102 MMOL/L (98-107) Carbon Dioxide Level 22 MMOL/L (21-32) Anion Gap 13 mmol/L (5-15) Blood Urea Nitrogen 20 mg/dL (7-18) H Creatinine 1.0 MG/DL (0.55-1.30) Estimat Glomerular Filtration Rate > 60 mL/min (>60) Glucose Level 94 MG/DL (74-106) Calcium Level 10.2 MG/DL (8.5-10.1) H Height (Feet): 6 Height (Inches): 0.00 Weight (Pounds): 192 General Appearance: no apparent distress Cardiovascular: normal rate Respiratory/Chest: normal breath sounds, no respiratory distress, other - trach to vent Abdominal Exam: normal bowel sounds, non tender, soft, GT site - c/d/i, other - colostomy Extremities: non-tender Boyd Emmanuel NP Jun 05, 2018 11:22
--- NOTE | 2018-06-05 12:07 | Infectious Diseases Prog Note ---
Assessment/Plan Assessment/Plan Sepsis, resolving- 2ry to UTI and Bacteremia Blood cultures postive 01/23 bottles with GPC Unclear source will need to R/O Endocarditis Possible PNA initially -u/a wbc 40-60, nit neg, leuk +2; ucx >100k E. aerogenes (S cefepime, cipro/ levo; R Zosyn) -BCX 01/23 E. aerogenes, prob Amp C (S cefepime, cipro/levo; R Zosyn), P. mirabilis ESBL (S Zosyn, Ertapenem); repeta 05/16 10/25 CoNS (suspect contaminant) , 05/18 Staph f/u final results if CoNS may need TTE and IE work up. -CXR 05/17: Increased left pleural effusion, over 3 days. Overall decreased interstitial congestion. Right infrahilar atelectasis -CXR: Cardiomegaly. Mild interstitial congestion. Suspect small bilateral pleural effusions -CT abd/p: Right lower quadrant double barrel colostomy, as described. Small peristomal hernia contains bowel loops without evidence of obstruction or strangulation. Left renal staghorn calculus. Bilateral intrarenal calyceal calculi. Borderline hydronephrosis on the right without evidence of downstream obstructive lesion. May indicate mild ureteral pelvic junction obstruction. Somewhat atrophic left kidney. Inspissated contrast ball within the distal sigmoid colon. Gastrostomy in good position. Nonspecific bilateral perinephric fat stranding, could indicate pyelonephritis or could be chronic. Newberry catheter in place. Apparent bladder wall thickening, possibly an artifact of under distention but cystitis is not excludable, particularly in view of mild perivesical fat stranding. Bilateral pulmonary parenchymal atelectasis and consolidation -Blood Cx from PICC CoNS 2/2 bottles Peripheral Neg- (May be contaminant but will repeat blood Cx given new leukocytosis if positive will need ECHO. - Blood Cx 05/20/18 - GPC - Will need TTE for IE work up and the PICC removed. PICC line infection/colonization - TTE negative. Blood cultures only positive from PICC. Not positive from Peripheral - Will repeat blood cultures x 1 to confirm clearance after PICC replaced. Los suspicion for IE. - PICC replace 05/22/18 Fever/Leukocytosis; Resolved - i recurs Re-evaluate lines, Diarrhea? C. dif? DIVYA, improving Lactic acidosis, resolved chronic resp failure trach/vent dependant BPH GERD HTN DM2 seizure disorder colostomy s/p GT constipation VRE and MRSA colonized Plan: JOE could not be performed due to technical problems - Unable to repeat JOE so patient should be treated for presumed endocarditis for 6 weeks - Continue empiric IV Vancomycin #16/42 for bacteremia/line infection cant r/o Endocarditis - Abx end date 07/03/18 if JOE attempted again and negative then ed date would be 06/05/18 -Last day of Ertapenem #14/14 for Amp-C Enterobacter and ESBL P.mirabilis bacteremia ; will treat for 14 days - End date 05/30/18 -05/17 SP Zosyn #4 - Monitor CBC/CMP, temperatures - F/U JOE - Pulmonary care Thank you for this consultation. Will continue to follow along with you. Subjective Allergies: Coded Allergies: AZTREONAM (Verified Allergy, Unknown, 05/13/18) Subjective On Vent still and stable at 30% Afebrile Objective Vital Signs Last 24 Hour Vital Signs Date Time Temp Pulse Resp B/P (MAP) Pulse Ox O2 Delivery O2 Flow Rate FiO2 06/05/18 09:00 76 16 30 06/05/18 08:07 73 06/05/18 08:00 Mechanical Ventilator 06/05/18 08:00 30 06/05/18 08:00 98.3 76 16 120/77 (91) 97 98.3 06/05/18 06:31 73 16 30 06/05/18 05:05 99 16 30 06/05/18 04:00 98.3 77 16 123/80 (94) 99 98.3 06/05/18 04:00 74 06/05/18 04:00 Mechanical Ventilator 06/05/18 04:00 30 06/05/18 03:49 79 16 30 06/05/18 01:17 77 16 30 06/05/18 00:00 30 06/05/18 00:00 99.1 78 16 117/78 (91) 99 99.1 06/05/18 00:00 Mechanical Ventilator 06/05/18 00:00 74 06/04/18 23:13 80 16 30 06/04/18 20:52 75 16 30 06/04/18 20:20 98.1 71 16 117/70 (86) 99 98.1 06/04/18 20:00 74 06/04/18 19:55 30 06/04/18 19:50 Mechanical Ventilator 06/04/18 18:55 74 16 30 06/04/18 16:51 77 16 30 06/04/18 16:00 30 06/04/18 16:00 75 06/04/18 16:00 98.3 73 16 121/75 (90) 100 98.3 06/04/18 16:00 Mechanical Ventilator 06/04/18 14:47 71 16 30 06/04/18 14:21 208.8 77 16 99 06/04/18 13:20 79 16 30 Height (Feet): 6 Height (Inches): 0.00 Weight (Pounds): 192 Objective GENERAL: On vent 30% O2 HEENT: NCAT, DMM, Tracheostomy (C/D/I) PULM: Mild crackles in bases B/L, No wheezing CARDIOVASCULAR: RRR, S1 and S2 ABDOMEN: Obese and nondistended. +BS, The G-tube and stoma noted. EXTREMITIES: No edema. 1+ pedal pulses. Laboratory Tests Test 06/05/18 04:00 White Blood Count 7.5 K/UL (4.8-10.8) Red Blood Count 4.69 M/UL (4.70-6.10) L Hemoglobin 13.0 G/DL (14.2-18.0) L Hematocrit 41.2 % (42.0-52.0) L Mean Corpuscular Volume 88 FL (80-99) Mean Corpuscular Hemoglobin 27.8 PG (27.0-31.0) Mean Corpuscular Hemoglobin Concent 31.6 G/DL (32.0-36.0) L Red Cell Distribution Width 15.4 % (11.6-14.8) H Platelet Count 322 K/UL (150-450) Mean Platelet Volume 7.6 FL (6.5-10.1) Neutrophils (%) (Auto) 57.7 % (45.0-75.0) Lymphocytes (%) (Auto) 25.2 % (20.0-45.0) Monocytes (%) (Auto) 8.4 % (1.0-10.0) Eosinophils (%) (Auto) 7.7 % (0.0-3.0) H Basophils (%) (Auto) 0.9 % (0.0-2.0) Sodium Level 137 MMOL/L (136-145) Potassium Level 3.9 MMOL/L (3.5-5.1) Chloride Level 102 MMOL/L (98-107) Carbon Dioxide Level 22 MMOL/L (21-32) Anion Gap 13 mmol/L (5-15) Blood Urea Nitrogen 20 mg/dL (7-18) H Creatinine 1.0 MG/DL (0.55-1.30) Estimat Glomerular Filtration Rate > 60 mL/min (>60) Glucose Level 94 MG/DL (74-106) Calcium Level 10.2 MG/DL (8.5-10.1) H Current Medications Medications (Trade) Dose Ordered Sig/Va Route PRN Reason Start Time Stop Time Status Last Admin Dose Admin Acetaminophen (Tylenol) 650 mg Q4H PRN ORAL FEVER 05/16/18 14:00 06/13/18 09:59 06/02/18 23:43 Baclofen (Lioresal) 10 mg EVERY 8 HOURS GT 05/20/18 14:00 06/13/18 12:59 06/05/18 06:35 Chlorhexidine Gluconate (Rebecca-Hex 2%) 1 applic DAILY@1999 TOPIC 05/16/18 20:00 06/13/18 19:59 06/04/18 20:21 Dextrose (Dextrose 50%) 25 ml STAT PRN IV Hypoglycemia 05/17/18 08:45 06/14/18 08:44 Dextrose (Dextrose 50%) 50 ml STAT PRN IV Hypoglycemia 05/17/18 08:45 06/14/18 08:44 Heparin Sodium (Porcine) (Heparin 5000 units/ml) 5,000 units EVERY 12 HOURS SUBQ 05/16/18 21:00 06/13/18 20:59 06/05/18 08:51 Insulin Aspart (NovoLOG) Q6HR SUBQ 05/16/18 18:00 06/14/18 11:29 06/05/18 12:04 Lansoprazole (Prevacid) 30 mg DAILY GT 05/17/18 09:00 06/15/18 08:59 06/05/18 08:50 Levetiracetam (Keppra) 1,000 mg Q8HR GT 05/16/18 14:00 06/13/18 12:59 06/05/18 06:35 Ondansetron HCl (Zofran) 4 mg Q6H PRN IVP Nausea & Vomiting 05/16/18 16:00 06/13/18 09:59 Polyethylene Glycol (Miralax) 17 gm BEDTIME GT 05/20/18 21:00 06/14/18 20:59 06/04/18 20:22 Vancomycin HCl (Vanco rx to dose) 1 ea DAILY PRN MISC PER RX PROTOCOL 05/18/18 13:15 06/17/18 13:14 Vancomycin HCl/ Dextrose 250 ml @ 125 mls/hr Q18H IVPB 05/29/18 21:00 06/09/18 20:59 06/04/18 20:21 Kali Richter M.D. Jun 05, 2018 12:07
[2018-06-05] MEDS: Vancomycin 1.5 GM/D5W 250ML IVPB SCH (14:40)
--- NOTE | 2018-06-05 15:41 | Pulmonolgy Critical Care Note ---
Critical Care - Asmt/Plan Problems: (1) Acute on chronic respiratory failure (2) Acute on chronic renal insufficiency (3) Severe sepsis (4) Vegetative state (5) Colostomy in place (6) Diabetes mellitus Respiratory: adjust tidal volume, monitor respiratory rate Cardiac: start pressors, stop pressors Renal: keep IV fluid Infectious Disease: continue antibiotics Gastrointestinal: hold feedings Endocrine: check TSH Hematologic: monitor H/H Affect: PRN ativan Prophylaxis: Protonix, Heparin Notes Reviewed: cardio Discussed with: nurses, consultants, disability case managermanager [employer] - Objective Last 24 Hour Vital Signs Date Time Temp Pulse Resp B/P (MAP) Pulse Ox O2 Delivery O2 Flow Rate FiO2 06/05/18 13:10 84 16 30 06/05/18 12:19 76 06/05/18 12:00 98.1 76 16 115/80 (92) 99 98.1 06/05/18 12:00 30 06/05/18 12:00 Mechanical Ventilator 06/05/18 11:00 79 16 30 06/05/18 09:00 76 16 30 06/05/18 08:07 73 06/05/18 08:00 Mechanical Ventilator 06/05/18 08:00 30 06/05/18 08:00 98.3 76 16 120/77 (91) 97 98.3 06/05/18 06:31 73 16 30 06/05/18 05:05 99 16 30 06/05/18 04:00 98.3 77 16 123/80 (94) 99 98.3 06/05/18 04:00 74 06/05/18 04:00 Mechanical Ventilator 06/05/18 04:00 30 06/05/18 03:49 79 16 30 06/05/18 01:17 77 16 30 06/05/18 00:00 30 06/05/18 00:00 99.1 78 16 117/78 (91) 99 99.1 06/05/18 00:00 Mechanical Ventilator 06/05/18 00:00 74 06/04/18 23:13 80 16 30 06/04/18 20:52 75 16 30 06/04/18 20:20 98.1 71 16 117/70 (86) 99 98.1 06/04/18 20:00 74 06/04/18 19:55 30 06/04/18 19:50 Mechanical Ventilator 06/04/18 18:55 74 16 30 06/04/18 16:51 77 16 30 06/04/18 16:00 30 06/04/18 16:00 75 06/04/18 16:00 98.3 73 16 121/75 (90) 100 98.3 06/04/18 16:00 Mechanical Ventilator Status: awake Neck: full ROM Lungs: chest wall tender Heart: HR/BP stable, regular Abdomen: non-tender Accucheck: 112 Critical Care - Subjective ROS Limited/Unobtainable: Yes EKG Rhythm: Sinus Tachycardia FI02: 30 Vent Support Breath Rate: 16 Vent Support Mode: AC Vent Tidal Volume: 600 Sputum Amount: Small PEEP: 5.0 PIP: 34 Tube Feeding Amount: 50 I&O: Intake and Output 06/04/18 06/05/18 19:00 07:00 Intake Total 750 ml 950 ml Output Total 850 ml 975 ml Balance -100 ml -25 ml Free Water 150 ml IV Total 250 ml Tube Feeding 600 ml 600 ml Other 100 ml Output Urine Total 450 ml 425 ml Stool Total 400 ml 550 ml Labs: Laboratory Tests Test 06/05/18 04:00 White Blood Count 7.5 K/UL (4.8-10.8) Red Blood Count 4.69 M/UL (4.70-6.10) L Hemoglobin 13.0 G/DL (14.2-18.0) L Hematocrit 41.2 % (42.0-52.0) L Mean Corpuscular Volume 88 FL (80-99) Mean Corpuscular Hemoglobin 27.8 PG (27.0-31.0) Mean Corpuscular Hemoglobin Concent 31.6 G/DL (32.0-36.0) L Red Cell Distribution Width 15.4 % (11.6-14.8) H Platelet Count 322 K/UL (150-450) Mean Platelet Volume 7.6 FL (6.5-10.1) Neutrophils (%) (Auto) 57.7 % (45.0-75.0) Lymphocytes (%) (Auto) 25.2 % (20.0-45.0) Monocytes (%) (Auto) 8.4 % (1.0-10.0) Eosinophils (%) (Auto) 7.7 % (0.0-3.0) H Basophils (%) (Auto) 0.9 % (0.0-2.0) Sodium Level 137 MMOL/L (136-145) Potassium Level 3.9 MMOL/L (3.5-5.1) Chloride Level 102 MMOL/L (98-107) Carbon Dioxide Level 22 MMOL/L (21-32) Anion Gap 13 mmol/L (5-15) Blood Urea Nitrogen 20 mg/dL (7-18) H Creatinine 1.0 MG/DL (0.55-1.30) Estimat Glomerular Filtration Rate > 60 mL/min (>60) Glucose Level 94 MG/DL (74-106) Calcium Level 10.2 MG/DL (8.5-10.1) H Nico Goetz MD Jun 05, 2018 15:41
--- NOTE | 2018-06-05 17:33 | General Progress Note ---
Assessment/Plan Status: stable Assessment/Plan # Leukocytosis - Sepsis with elevated temperature of 103 degrees Fahrenheit. Had uti v bacteremia (CoNS) on abx, has improved. --> Pt on antibiotics, has received a dose of Zosyn and currently is on vancomycin q.12 h. now on cefepime --> Appreciate Infectious Disease recs --> 2D echo per ID performed on 05/22: No discrete vegetations seen, however SBE may not be excluded by transthoracic 2-D echo. --> 06/05: WBC of 7.5, wnl --> Currently afebrile # Anemia of chronic disease. No hemolysis, peripheral smear reviewed, ferritin was elevated. --> Continue to closely monitor --> Hgb goal >7 --> 06/05: Hgb 13.0 # Acute kidney injury. --> Currently on IV fluids, IV bolus given to see if the patient responds along with IV pressor as needed. --> Closely monitor with Nephrology team. # Septic shock, use antibiotic per ID services. --> potential uti, on abx and bacteremia # Respiratory failure, status post tracheostomy, on mechanical ventilation per Dr. Goetz --> Remains on vent --> 06/03 CXR: Unchanged left pleural effusion versus scarring, over 4 days # Hypercalcemia. Monitor PTH and calcium level. The time the note was entered does not necessarily correspond to the time the patient was seen. Subjective Date patient seen: Jun 05, 2018 ROS Limited/Unobtainable: Yes Hematologic/Lymphatic: Reports: anemia Allergies: Coded Allergies: AZTREONAM (Verified Allergy, Unknown, 05/13/18) All Systems: reviewed and negative except above Subjective Pt remains obtunded and stable. No acute events. H/H stable. Objective Last 24 Hour Vital Signs Date Time Temp Pulse Resp B/P (MAP) Pulse Ox O2 Delivery O2 Flow Rate FiO2 06/05/18 16:00 30 06/05/18 16:00 97.6 79 16 122/82 (95) 96 97.6 06/05/18 16:00 82 06/05/18 16:00 Mechanical Ventilator 06/05/18 15:29 79 18 30 06/05/18 13:10 84 16 30 06/05/18 12:19 76 06/05/18 12:00 98.1 76 16 115/80 (92) 99 98.1 06/05/18 12:00 30 06/05/18 12:00 Mechanical Ventilator 06/05/18 11:00 79 16 30 06/05/18 09:00 76 16 30 06/05/18 08:07 73 06/05/18 08:00 Mechanical Ventilator 06/05/18 08:00 30 06/05/18 08:00 98.3 76 16 120/77 (91) 97 98.3 06/05/18 06:31 73 16 30 06/05/18 05:05 99 16 30 06/05/18 04:00 98.3 77 16 123/80 (94) 99 98.3 06/05/18 04:00 74 06/05/18 04:00 Mechanical Ventilator 06/05/18 04:00 30 06/05/18 03:49 79 16 30 06/05/18 01:17 77 16 30 06/05/18 00:00 30 06/05/18 00:00 99.1 78 16 117/78 (91) 99 99.1 06/05/18 00:00 Mechanical Ventilator 06/05/18 00:00 74 06/04/18 23:13 80 16 30 06/04/18 20:52 75 16 30 06/04/18 20:20 98.1 71 16 117/70 (86) 99 98.1 06/04/18 20:00 74 06/04/18 19:55 30 06/04/18 19:50 Mechanical Ventilator 06/04/18 18:55 74 16 30 Intake and Output 06/04/18 06/05/18 19:00 07:00 Intake Total 750 ml 950 ml Output Total 850 ml 975 ml Balance -100 ml -25 ml Free Water 150 ml IV Total 250 ml Tube Feeding 600 ml 600 ml Other 100 ml Output Urine Total 450 ml 425 ml Stool Total 400 ml 550 ml Laboratory Tests 06/05/18 04:00: White Blood Count 7.5, Red Blood Count 4.69L, Hemoglobin 13.0L, Hematocrit 41.2L , Mean Corpuscular Volume 88, Mean Corpuscular Hemoglobin 27.8, Mean Corpuscular Hemoglobin Concent 31.6L, Red Cell Distribution Width 15.4H, Platelet Count 322, Mean Platelet Volume 7.6, Neutrophils (%) (Auto) 57.7, Lymphocytes (%) (Auto) 25.2, Monocytes (%) (Auto) 8.4, Eosinophils (%) (Auto) 7.7H, Basophils (%) (Auto) 0.9, Sodium Level 137, Potassium Level 3.9, Chloride Level 102, Carbon Dioxide Level 22, Anion Gap 13, Blood Urea Nitrogen 20H, Creatinine 1.0, Estimat Glomerular Filtration Rate > 60, Glucose Level 94, Calcium Level 10.2H Height (Feet): 6 Height (Inches): 0.00 Weight (Pounds): 192 General Appearance: no apparent distress EENT: PERRL/EOMI Neck: normal alignment Cardiovascular: normal peripheral pulses Respiratory/Chest: no respiratory distress Abdomen: soft Jimmy Fleming MD Jun 05, 2018 17:33
[2018-06-05] MEDS: Dyna-Hex 2% Top Sol 2oz TOPIC SCH (20:17)
[2018-06-05] MEDS ORDERED: NS 275ml ONE (20:19)
[2018-06-05] MEDS ORDERED: Tubing IV Secondary IV ONE (20:19)
[2018-06-05] MEDS: Miralax 17gm pkt GT SCH (21:36)
--- NOTE | 2018-06-06 03:00 | Progress Note ---
DATE: 06/05/2018 SUBJECTIVE: The patient is not awake, not alert, afebrile and hemodynamically stable. PHYSICAL EXAMINATION: VITAL SIGNS: Blood pressure is 115/78, his pulse is 78, respirations are 16, and temperature of 98.4. HEENT: Eyes were normal. ENT, mucous membranes were moist and intact. NECK: Supple with no JVD without lymph nodes. Tracheostomy site is clean. LUNGS: Clear without rhonchi, rales, or wheezing. Secretions are small, thin, and hodgson. HEART: Normal sounds with regular beats. There is no S3, S4, or pericardial rub. ABDOMEN: Soft and nontender with normal bowel sounds. Gastrostomy site is clean. EXTREMITIES: Warm without cyanosis, clubbing, or edema. LABORATORY DATA: His hemoglobin is 13.0, hematocrit 41.2 with MCV of 88, WBC of 7.5, and platelets of 322. His BUN and creatinine is 20 and 1.0 respectively. His sodium is 137, potassium 3.9, chloride 102, CO2 is 22. His calcium is 10.2. IMPRESSION: The patient is hemodynamically stable. He is afebrile without leukocytosis, no tachycardia. We are awaiting for patient's placement. Sariah Bhat M.D. DR: AUSTEN JOB#: [id number] CC:
[2018-06-06 04:00] VITALS: BP 129/66
[2018-06-06] MEDS: levETIRAcetam 500mg/5ml Liquid GT SCH ×3 (05:31→21:19)
[2018-06-06] MEDS: NovoLOG Insulin Flexpen SUBQ SCH ×4 (06:00→23:54)
[2018-06-06 06:22] LABS: BASOPHILS % (AUTO) 1.5 % (0.0-2.0); EOSINOPHILS % (AUTO) 11.2 % (0.0-3.0); HEMATOCRIT 41.3 % (42.0-52.0); HEMOGLOBIN 13.1 G/DL (14.2-18.0); LYMPHOCYTES % (AUTO) 25.6 % (20.0-45.0); MEAN CORPUSCULAR VOLUME 87 FL (80-99); NEUTROPHILS % (AUTO) 49.7 % (45.0-75.0); PLATELET COUNT 293 K/UL (150-450); RED BLOOD COUNT 4.74 M/UL (4.70-6.10); RED CELL DISTRIBUTION WIDTH 15.4 % (11.6-14.8); WHITE BLOOD COUNT 7.1 K/UL (4.8-10.8)
[2018-06-06 06:49] LABS: ANION GAP 12 mmol/L (5-15); BLOOD UREA NITROGEN 18 mg/dL (7-18); CALCIUM 10.3 MG/DL (8.5-10.1); CARBON DIOXIDE 23 MMOL/L (21-32); CHLORIDE 102 MMOL/L (98-107); SODIUM 137 MMOL/L (136-145)
[2018-06-06 08:00] VITALS: BP 102/75
--- NOTE | 2018-06-06 09:02 | Progress Note ---
DATE: 05/31/2018 SUBJECTIVE: The patient again is febrile without tachycardia. PHYSICAL EXAMINATION: VITAL SIGNS: Blood pressure 135/79, his pulse is 78, respirations are 18, and temperature is 100.5 degrees. HEENT: Eyes were normal. ENT, mucous membranes were moist and intact. NECK: Supple with no JVD without lymph nodes. Tracheostomy site is clean. The oral cavity is opened and the tongue is protruded. LUNGS: Clear without rhonchi, rales, or wheezing. Secretions are small, thin, and hodgson. HEART: Normal sounds with regular beats. There is no S3, S4, or pericardial rub. ABDOMEN: Soft and nontender with normal bowel sounds. Gastrostomy site is clean. EXTREMITIES: Warm without cyanosis, clubbing, or edema. LABORATORY AND DIAGNOSTIC DATA: Hemoglobin is 12.9, hematocrit 40.3 with MCV of 87, WBC of 8.7, and platelets of 315. His BUN and creatinine are 14 and 0.9, respectively. Sodium is 133, potassium 4.1, chloride 100, and CO2 is 22. His calcium is 10. His phosphorus is 1.9. Magnesium is 2.1. A chest x-ray was done on 05/30/2018 and showed and left pleural effusion. IMPRESSION AND PLAN: The patient is in stable condition. Repeat laboratory tests will be done in the a.m. Sariah Bhat M.D. DR: ELISSA JOB#: [id number] CC:
[2018-06-06] MEDS: Vancomycin 1.5 GM/D5W 250ML IVPB SCH (09:37)
[2018-06-06] MEDS: Heparin 5000 units/ml inj SUBQ SCH ×2 (09:40→21:20)
--- NOTE | 2018-06-06 10:47 | GI Progress Note ---
Assessment/Plan Problems: (1) Parastomal hernia ICD Codes: K43.5 - Parastomal hernia without obstruction or gangrene SNOMED: 110903110 Qualifiers: Qualified Codes: K43.5 - Parastomal hernia without obstruction or gangrene (2) Stoma malfunction SNOMED: 484285887 (3) Colostomy in place ICD Codes: Z93.3 - Colostomy status SNOMED: 029405405, 221422094 (4) Vegetative state ICD Codes: R40.3 - Persistent vegetative state SNOMED: 43946021 (5) Diabetes mellitus ICD Codes: E11.9 - Type 2 diabetes mellitus without complications SNOMED: 63182967 (6) Acute on chronic respiratory failure ICD Codes: J96.20 - Acute and chronic respiratory failure, unspecified whether with hypoxia or hypercapnia SNOMED: 73110177 (7) Severe sepsis ICD Codes: A41.9 - Sepsis, unspecified organism; R65.20 - Severe sepsis without septic shock SNOMED: 73924960 Status: stable Status Narrative Discussed with Dr. Prater. Assessment/Plan parastomal >> no s/sx of infection. no obstruction. anemia work up reviewed >> iron deficiency G tube dependent hepatitis panel negative OB negative supportive care monitor H&H, prn transfusions venofer ppi GTFs per RD, adv to goal GT site care daily/prn abx bowel regime fu labs dc planning The patient was seen and examined at bedside and all new and available data was reviewed in the patients chart. I agree with the above findings, impression and plan. (Patient seen earlier today. Signature stamp does not reflect patient encounter time.). - Dae Prater MD Subjective Subjective limited Objective Last 24 Hour Vital Signs Date Time Temp Pulse Resp B/P (MAP) Pulse Ox O2 Delivery O2 Flow Rate FiO2 06/06/18 08:51 81 16 30 06/06/18 08:00 88 06/06/18 08:00 Mechanical Ventilator 06/06/18 08:00 98.6 92 18 102/75 (84) 96 98.6 06/06/18 08:00 30 06/06/18 07:26 79 16 30 06/06/18 05:25 85 16 30 06/06/18 04:00 30 06/06/18 04:00 78 06/06/18 04:00 Mechanical Ventilator 06/06/18 04:00 98.7 80 16 129/66 (87) 100 98.7 06/06/18 03:18 80 16 30 06/06/18 01:07 73 16 30 06/06/18 00:00 30 06/06/18 00:00 84 06/06/18 00:00 Mechanical Ventilator 06/05/18 23:59 98.3 75 17 113/73 (86) 99 98.3 06/05/18 23:02 77 16 30 06/05/18 20:46 82 16 30 06/05/18 20:00 30 06/05/18 20:00 Mechanical Ventilator 06/05/18 20:00 98.4 78 16 115/78 (90) 98 98.4 06/05/18 19:55 79 06/05/18 19:00 78 16 30 06/05/18 17:30 84 16 30 06/05/18 16:00 30 06/05/18 16:00 97.6 79 16 122/82 (95) 96 97.6 06/05/18 16:00 82 06/05/18 16:00 Mechanical Ventilator 06/05/18 15:29 79 18 30 06/05/18 13:10 84 16 30 06/05/18 12:19 76 06/05/18 12:00 98.1 76 16 115/80 (92) 99 98.1 06/05/18 12:00 30 06/05/18 12:00 Mechanical Ventilator 06/05/18 11:00 79 16 30 Intake and Output 06/05/18 06/06/18 19:00 07:00 Intake Total 1100 ml 600 ml Output Total 640 ml 800 ml Balance 460 ml -200 ml Free Water 200 ml IV Total 250 ml Tube Feeding 650 ml 600 ml Output Urine Total 400 ml 550 ml Stool Total 240 ml 250 ml Laboratory Tests Test 06/06/18 04:58 White Blood Count 7.1 K/UL (4.8-10.8) Red Blood Count 4.74 M/UL (4.70-6.10) Hemoglobin 13.1 G/DL (14.2-18.0) L Hematocrit 41.3 % (42.0-52.0) L Mean Corpuscular Volume 87 FL (80-99) Mean Corpuscular Hemoglobin 27.6 PG (27.0-31.0) Mean Corpuscular Hemoglobin Concent 31.7 G/DL (32.0-36.0) L Red Cell Distribution Width 15.4 % (11.6-14.8) H Platelet Count 293 K/UL (150-450) Mean Platelet Volume 7.2 FL (6.5-10.1) Neutrophils (%) (Auto) 49.7 % (45.0-75.0) Lymphocytes (%) (Auto) 25.6 % (20.0-45.0) Monocytes (%) (Auto) 12.0 % (1.0-10.0) H Eosinophils (%) (Auto) 11.2 % (0.0-3.0) H Basophils (%) (Auto) 1.5 % (0.0-2.0) Sodium Level 137 MMOL/L (136-145) Potassium Level 4.0 MMOL/L (3.5-5.1) Chloride Level 102 MMOL/L (98-107) Carbon Dioxide Level 23 MMOL/L (21-32) Anion Gap 12 mmol/L (5-15) Blood Urea Nitrogen 18 mg/dL (7-18) Creatinine 1.0 MG/DL (0.55-1.30) Estimat Glomerular Filtration Rate > 60 mL/min (>60) Glucose Level 91 MG/DL (74-106) Calcium Level 10.3 MG/DL (8.5-10.1) H Height (Feet): 6 Height (Inches): 0.00 Weight (Pounds): 205 General Appearance: WD/WN, no apparent distress, alert Cardiovascular: normal rate Respiratory/Chest: normal breath sounds, no respiratory distress Abdominal Exam: normal bowel sounds, non tender, soft, other - colostomy, parastoma Extremities: non-tender Boyd Emmanuel MOISTURE MACHINE TENDER Jun 06, 2018 10:46
--- NOTE | 2018-06-06 11:20 | Infectious Diseases Prog Note ---
Assessment/Plan Assessment/Plan Assessment/Plan Sepsis, resolving- 2ry to UTI and Bacteremia Blood cultures postive 01/23 bottles with GPC Unclear source will need to R/O Endocarditis Possible PNA initially -u/a wbc 40-60, nit neg, leuk +2; ucx >100k E. aerogenes (S cefepime, cipro/ levo; R Zosyn) -BCX 01/23 E. aerogenes, prob Amp C (S cefepime, cipro/levo; R Zosyn), P. mirabilis ESBL (S Zosyn, Ertapenem); repeta 05/16 10/25 CoNS (suspect contaminant) , 05/18 Staph f/u final results if CoNS may need TTE and IE work up. -CXR 05/17: Increased left pleural effusion, over 3 days. Overall decreased interstitial congestion. Right infrahilar atelectasis -CXR: Cardiomegaly. Mild interstitial congestion. Suspect small bilateral pleural effusions -CT abd/p: Right lower quadrant double barrel colostomy, as described. Small peristomal hernia contains bowel loops without evidence of obstruction or strangulation. Left renal staghorn calculus. Bilateral intrarenal calyceal calculi. Borderline hydronephrosis on the right without evidence of downstream obstructive lesion. May indicate mild ureteral pelvic junction obstruction. Somewhat atrophic left kidney. Inspissated contrast ball within the distal sigmoid colon. Gastrostomy in good position. Nonspecific bilateral perinephric fat stranding, could indicate pyelonephritis or could be chronic. Newberry catheter in place. Apparent bladder wall thickening, possibly an artifact of under distention but cystitis is not excludable, particularly in view of mild perivesical fat stranding. Bilateral pulmonary parenchymal atelectasis and consolidation -Blood Cx from PICC CoNS 2/2 bottles Peripheral Neg- (May be contaminant but will repeat blood Cx given new leukocytosis if positive will need ECHO. - Blood Cx 05/20/18 - GPC - Will need TTE for IE work up and the PICC removed. PICC line infection/colonization - TTE negative. Blood cultures only positive from PICC. Not positive from Peripheral - Will repeat blood cultures x 1 to confirm clearance after PICC replaced. Los suspicion for IE. - PICC replace 05/22/18 Fever/Leukocytosis; Resolved - i recurs Re-evaluate lines, Diarrhea? C. dif? DIVYA, improving Lactic acidosis, resolved chronic resp failure trach/vent dependant BPH GERD HTN DM2 seizure disorder colostomy s/p GT constipation VRE and MRSA colonized Plan: JOE could not be performed due to technical problems - Unable to repeat JOE so patient should be treated for presumed endocarditis for 6 weeks - Continue empiric IV Vancomycin #17/42 for bacteremia/line infection cant r/o Endocarditis - Abx end date 07/03/18 if JOE attempted again and negative then ed date would be 06/05/18 -05/30 SP Ertapenem #14 -05/17 SP Zosyn #4 - Monitor CBC/CMP, temperatures - F/U JOE - Pulmonary care Thank you for this consultation. Will continue to follow along with you. Subjective Allergies: Coded Allergies: AZTREONAM (Verified Allergy, Unknown, 05/13/18) Subjective afebrile no leukocytosis Objective Vital Signs Last 24 Hour Vital Signs Date Time Temp Pulse Resp B/P (MAP) Pulse Ox O2 Delivery O2 Flow Rate FiO2 06/06/18 11:12 89 16 30 06/06/18 08:51 81 16 30 06/06/18 08:00 88 06/06/18 08:00 Mechanical Ventilator 06/06/18 08:00 98.6 92 18 102/75 (84) 96 98.6 06/06/18 08:00 30 06/06/18 07:26 79 16 30 06/06/18 05:25 85 16 30 06/06/18 04:00 30 06/06/18 04:00 78 06/06/18 04:00 Mechanical Ventilator 06/06/18 04:00 98.7 80 16 129/66 (87) 100 98.7 06/06/18 03:18 80 16 30 06/06/18 01:07 73 16 30 06/06/18 00:00 30 06/06/18 00:00 84 06/06/18 00:00 Mechanical Ventilator 06/05/18 23:59 98.3 75 17 113/73 (86) 99 98.3 06/05/18 23:02 77 16 30 06/05/18 20:46 82 16 30 06/05/18 20:00 30 06/05/18 20:00 Mechanical Ventilator 06/05/18 20:00 98.4 78 16 115/78 (90) 98 98.4 06/05/18 19:55 79 06/05/18 19:00 78 16 30 06/05/18 17:30 84 16 30 06/05/18 16:00 30 06/05/18 16:00 97.6 79 16 122/82 (95) 96 97.6 06/05/18 16:00 82 06/05/18 16:00 Mechanical Ventilator 06/05/18 15:29 79 18 30 06/05/18 13:10 84 16 30 06/05/18 12:19 76 06/05/18 12:00 98.1 76 16 115/80 (92) 99 98.1 06/05/18 12:00 30 06/05/18 12:00 Mechanical Ventilator Height (Feet): 6 Height (Inches): 0.00 Weight (Pounds): 205 Objective GENERAL: The patient is awake, in no overt distress. HEENT: Extraocular muscles intact. No lymphadenopathy noted. Tracheostomy noted. CARDIOVASCULAR: S1 and S2. Tachycardic. No rubs or gallops. PULMONARY: Mild diffuse expiratory rhonchi with basilar rales. ABDOMEN: Obese and nondistended. The G-tube and stoma noted. EXTREMITIES: No edema. Fair pedal pulses. Laboratory Tests Test 06/06/18 04:58 White Blood Count 7.1 K/UL (4.8-10.8) Red Blood Count 4.74 M/UL (4.70-6.10) Hemoglobin 13.1 G/DL (14.2-18.0) L Hematocrit 41.3 % (42.0-52.0) L Mean Corpuscular Volume 87 FL (80-99) Mean Corpuscular Hemoglobin 27.6 PG (27.0-31.0) Mean Corpuscular Hemoglobin Concent 31.7 G/DL (32.0-36.0) L Red Cell Distribution Width 15.4 % (11.6-14.8) H Platelet Count 293 K/UL (150-450) Mean Platelet Volume 7.2 FL (6.5-10.1) Neutrophils (%) (Auto) 49.7 % (45.0-75.0) Lymphocytes (%) (Auto) 25.6 % (20.0-45.0) Monocytes (%) (Auto) 12.0 % (1.0-10.0) H Eosinophils (%) (Auto) 11.2 % (0.0-3.0) H Basophils (%) (Auto) 1.5 % (0.0-2.0) Sodium Level 137 MMOL/L (136-145) Potassium Level 4.0 MMOL/L (3.5-5.1) Chloride Level 102 MMOL/L (98-107) Carbon Dioxide Level 23 MMOL/L (21-32) Anion Gap 12 mmol/L (5-15) Blood Urea Nitrogen 18 mg/dL (7-18) Creatinine 1.0 MG/DL (0.55-1.30) Estimat Glomerular Filtration Rate > 60 mL/min (>60) Glucose Level 91 MG/DL (74-106) Calcium Level 10.3 MG/DL (8.5-10.1) H Current Medications Medications (Trade) Dose Ordered Sig/Va Route PRN Reason Start Time Stop Time Status Last Admin Dose Admin Acetaminophen (Tylenol) 650 mg Q4H PRN ORAL FEVER 05/16/18 14:00 06/13/18 09:59 06/02/18 23:43 Baclofen (Lioresal) 10 mg EVERY 8 HOURS GT 05/20/18 14:00 06/13/18 12:59 06/06/18 05:31 Chlorhexidine Gluconate (Rebecca-Hex 2%) 1 applic DAILY@1999 TOPIC 05/16/18 20:00 06/13/18 19:59 06/05/18 20:17 Dextrose (Dextrose 50%) 25 ml STAT PRN IV Hypoglycemia 05/17/18 08:45 06/14/18 08:44 Dextrose (Dextrose 50%) 50 ml STAT PRN IV Hypoglycemia 05/17/18 08:45 06/14/18 08:44 Heparin Sodium (Porcine) (Heparin 5000 units/ml) 5,000 units EVERY 12 HOURS SUBQ 05/16/18 21:00 06/13/18 20:59 06/06/18 09:40 Insulin Aspart (NovoLOG) Q6HR SUBQ 05/16/18 18:00 06/14/18 11:29 06/05/18 23:58 Lansoprazole (Prevacid) 30 mg DAILY GT 05/17/18 09:00 06/15/18 08:59 06/06/18 09:37 Levetiracetam (Keppra) 1,000 mg Q8HR GT 05/16/18 14:00 06/13/18 12:59 06/06/18 05:31 Ondansetron HCl (Zofran) 4 mg Q6H PRN IVP Nausea & Vomiting 05/16/18 16:00 06/13/18 09:59 Polyethylene Glycol (Miralax) 17 gm BEDTIME GT 05/20/18 21:00 06/14/18 20:59 06/05/18 21:36 Vancomycin HCl (Vanco rx to dose) 1 ea DAILY PRN MISC PER RX PROTOCOL 05/18/18 13:15 06/17/18 13:14 Vancomycin HCl/ Dextrose 250 ml @ 125 mls/hr Q18H IVPB 05/29/18 21:00 06/09/18 20:59 06/06/18 09:37 Maribel Barrera M.D. Jun 06, 2018 11:20
[2018-06-06 11:56] VITALS: BP 119/69
--- NOTE | 2018-06-06 12:34 | Pulmonolgy Critical Care Note ---
Critical Care - Asmt/Plan Problems: (1) Acute on chronic respiratory failure (2) Acute on chronic renal insufficiency (3) Severe sepsis (4) Vegetative state (5) Colostomy in place (6) Diabetes mellitus Respiratory: monitor respiratory rate, adjust FIO2, CXR Cardiac: continue to monitor HR/BP Renal: F/U I&O, keep IV fluid Infectious Disease: check cultures Gastrointestinal: continue feedings/current rate Endocrine: check TSH, check HgA1C Hematologic: transfuse if hgb<8.5 Neurologic: PRN Ativan, keep patient comfortable Affect: PRN ativan Time Spent (Minutes): 40 Notes Reviewed: furnace feeder, cardio, renal Discussed with: nurses, consultants, telehealth case manageremployee development manager - Objective Last 24 Hour Vital Signs Date Time Temp Pulse Resp B/P (MAP) Pulse Ox O2 Delivery O2 Flow Rate FiO2 06/06/18 12:11 Mechanical Ventilator 06/06/18 12:10 30 06/06/18 12:00 105 06/06/18 12:00 Mechanical Ventilator 06/06/18 11:56 98.9 104 18 119/69 (86) 100 98.9 06/06/18 11:12 89 16 30 06/06/18 08:51 81 16 30 06/06/18 08:00 88 06/06/18 08:00 Mechanical Ventilator 06/06/18 08:00 98.6 92 18 102/75 (84) 96 98.6 06/06/18 08:00 30 06/06/18 07:26 79 16 30 06/06/18 05:25 85 16 30 06/06/18 04:00 30 06/06/18 04:00 78 06/06/18 04:00 Mechanical Ventilator 06/06/18 04:00 98.7 80 16 129/66 (87) 100 98.7 06/06/18 03:18 80 16 30 06/06/18 01:07 73 16 30 06/06/18 00:00 30 06/06/18 00:00 84 06/06/18 00:00 Mechanical Ventilator 06/05/18 23:59 98.3 75 17 113/73 (86) 99 98.3 06/05/18 23:02 77 16 30 06/05/18 20:46 82 16 30 06/05/18 20:00 30 06/05/18 20:00 Mechanical Ventilator 06/05/18 20:00 98.4 78 16 115/78 (90) 98 98.4 06/05/18 19:55 79 06/05/18 19:00 78 16 30 06/05/18 17:30 84 16 30 06/05/18 16:00 30 06/05/18 16:00 97.6 79 16 122/82 (95) 96 97.6 06/05/18 16:00 82 06/05/18 16:00 Mechanical Ventilator 06/05/18 15:29 79 18 30 06/05/18 13:10 84 16 30 Status: sedated Condition: critical Neck: full ROM Lungs: chest wall tender Heart: HR/BP stable, HR/BP unstable Abdomen: non-tender, active bowel sounds Extremities: no C/C/E Decubiti: location Accucheck: 118 Critical Care - Subjective ROS Limited/Unobtainable: No Condition: critical EKG Rhythm: Sinus Rhythm FI02: 30 Vent Support Breath Rate: 16 Vent Support Mode: AC Vent Tidal Volume: 600 Sputum Amount: Moderate PEEP: 5.0 PIP: 30 Tube Feeding Amount: 50 I&O: Intake and Output 06/05/18 06/06/18 19:00 07:00 Intake Total 1100 ml 600 ml Output Total 640 ml 800 ml Balance 460 ml -200 ml Free Water 200 ml IV Total 250 ml Tube Feeding 650 ml 600 ml Output Urine Total 400 ml 550 ml Stool Total 240 ml 250 ml Labs: Laboratory Tests Test 06/06/18 04:58 White Blood Count 7.1 K/UL (4.8-10.8) Red Blood Count 4.74 M/UL (4.70-6.10) Hemoglobin 13.1 G/DL (14.2-18.0) L Hematocrit 41.3 % (42.0-52.0) L Mean Corpuscular Volume 87 FL (80-99) Mean Corpuscular Hemoglobin 27.6 PG (27.0-31.0) Mean Corpuscular Hemoglobin Concent 31.7 G/DL (32.0-36.0) L Red Cell Distribution Width 15.4 % (11.6-14.8) H Platelet Count 293 K/UL (150-450) Mean Platelet Volume 7.2 FL (6.5-10.1) Neutrophils (%) (Auto) 49.7 % (45.0-75.0) Lymphocytes (%) (Auto) 25.6 % (20.0-45.0) Monocytes (%) (Auto) 12.0 % (1.0-10.0) H Eosinophils (%) (Auto) 11.2 % (0.0-3.0) H Basophils (%) (Auto) 1.5 % (0.0-2.0) Sodium Level 137 MMOL/L (136-145) Potassium Level 4.0 MMOL/L (3.5-5.1) Chloride Level 102 MMOL/L (98-107) Carbon Dioxide Level 23 MMOL/L (21-32) Anion Gap 12 mmol/L (5-15) Blood Urea Nitrogen 18 mg/dL (7-18) Creatinine 1.0 MG/DL (0.55-1.30) Estimat Glomerular Filtration Rate > 60 mL/min (>60) Glucose Level 91 MG/DL (74-106) Calcium Level 10.3 MG/DL (8.5-10.1) H Nico Goetz MD Jun 06, 2018 12:34
--- NOTE | 2018-06-06 13:11 | General Progress Note ---
Assessment/Plan Status: stable, unchanged Assessment/Plan # Leukocytosis - Sepsis with elevated temperature of 103 degrees Fahrenheit. Had uti v bacteremia (CoNS) on abx, has improved. --> Pt on antibiotics, has received a dose of Zosyn and currently is on vancomycin q.12 h. now on cefepime --> Appreciate Infectious Disease recs --> 2D echo per ID performed on 05/22: No discrete vegetations seen, however SBE may not be excluded by transthoracic 2-D echo. --> 06/06: WBC of 7.1, wnl --> Currently afebrile # Anemia of chronic disease. No hemolysis, peripheral smear reviewed, ferritin was elevated. --> Continue to closely monitor --> Hgb goal >7 --> 06/06: Hgb 13.1 # Acute kidney injury. --> Currently on IV fluids, IV bolus given to see if the patient responds along with IV pressor as needed. --> Closely monitor with Nephrology team. # Septic shock, use antibiotic per ID services. --> potential uti, on abx and bacteremia # Respiratory failure, status post tracheostomy, on mechanical ventilation per Dr. Goetz --> Remains on vent --> 06/03 CXR: Unchanged left pleural effusion versus scarring, over 4 days # Hypercalcemia. Monitor PTH and calcium level. The time the note was entered does not necessarily correspond to the time the patient was seen. Subjective Date patient seen: Jun 06, 2018 ROS Limited/Unobtainable: Yes Hematologic/Lymphatic: Reports: anemia Allergies: Coded Allergies: AZTREONAM (Verified Allergy, Unknown, 05/13/18) All Systems: reviewed and negative except above Subjective Pt remains obtunded and vented. No acute events. H/H stable. Objective Last 24 Hour Vital Signs Date Time Temp Pulse Resp B/P (MAP) Pulse Ox O2 Delivery O2 Flow Rate FiO2 06/06/18 12:55 82 16 30 06/06/18 12:11 Mechanical Ventilator 06/06/18 12:10 30 06/06/18 12:00 105 06/06/18 12:00 Mechanical Ventilator 06/06/18 11:56 98.9 104 18 119/69 (86) 100 98.9 06/06/18 11:12 89 16 30 06/06/18 08:51 81 16 30 06/06/18 08:00 88 06/06/18 08:00 Mechanical Ventilator 06/06/18 08:00 98.6 92 18 102/75 (84) 96 98.6 06/06/18 08:00 30 06/06/18 07:26 79 16 30 06/06/18 05:25 85 16 30 06/06/18 04:00 30 06/06/18 04:00 78 06/06/18 04:00 Mechanical Ventilator 06/06/18 04:00 98.7 80 16 129/66 (87) 100 98.7 06/06/18 03:18 80 16 30 06/06/18 01:07 73 16 30 06/06/18 00:00 30 06/06/18 00:00 84 06/06/18 00:00 Mechanical Ventilator 06/05/18 23:59 98.3 75 17 113/73 (86) 99 98.3 06/05/18 23:02 77 16 30 06/05/18 20:46 82 16 30 06/05/18 20:00 30 06/05/18 20:00 Mechanical Ventilator 06/05/18 20:00 98.4 78 16 115/78 (90) 98 98.4 06/05/18 19:55 79 06/05/18 19:00 78 16 30 06/05/18 17:30 84 16 30 06/05/18 16:00 30 06/05/18 16:00 97.6 79 16 122/82 (95) 96 97.6 06/05/18 16:00 82 06/05/18 16:00 Mechanical Ventilator 06/05/18 15:29 79 18 30 06/05/18 13:10 84 16 30 Intake and Output 06/05/18 06/06/18 19:00 07:00 Intake Total 1100 ml 600 ml Output Total 640 ml 800 ml Balance 460 ml -200 ml Free Water 200 ml IV Total 250 ml Tube Feeding 650 ml 600 ml Output Urine Total 400 ml 550 ml Stool Total 240 ml 250 ml Laboratory Tests 06/06/18 04:58: White Blood Count 7.1, Red Blood Count 4.74, Hemoglobin 13.1L, Hematocrit 41.3L , Mean Corpuscular Volume 87, Mean Corpuscular Hemoglobin 27.6, Mean Corpuscular Hemoglobin Concent 31.7L, Red Cell Distribution Width 15.4H, Platelet Count 293, Mean Platelet Volume 7.2, Neutrophils (%) (Auto) 49.7, Lymphocytes (%) (Auto) 25.6, Monocytes (%) (Auto) 12.0H, Eosinophils (%) (Auto) 11.2H, Basophils (%) (Auto) 1.5, Sodium Level 137, Potassium Level 4.0, Chloride Level 102, Carbon Dioxide Level 23, Anion Gap 12, Blood Urea Nitrogen 18, Creatinine 1.0, Estimat Glomerular Filtration Rate > 60, Glucose Level 91, Calcium Level 10.3H Height (Feet): 6 Height (Inches): 0.00 Weight (Pounds): 205 General Appearance: no apparent distress EENT: PERRL/EOMI Neck: normal alignment Cardiovascular: normal peripheral pulses Respiratory/Chest: no respiratory distress Abdomen: soft Jimmy Fleming MD Jun 06, 2018 13:11
--- NOTE | 2018-06-06 13:20 | Cardiology Progress Note ---
Assessment/Plan Status: stable, progressing Assessment/Plan Assessment: (1) Acute on chronic respiratory failure (2) Acute on chronic renal insufficiency (3) Severe sepsis (4) Vegetative state (5) Colostomy in place (6) Diabetes mellitus Plan: Continue antibiotics Echocardiogram reviewed- no endocarditis, JOE unable to be performed Patient afebrile, normal WBC otherwise Continue trach care and tube feeds Continue keppra for seizures Continue abx treatment for six weeks via PICC line until 07/06 Dispo planning Subjective Cardiovascular: Reports: no symptoms Respiratory: Reports: no symptoms Gastrointestinal/Abdominal: Reports: no symptoms Genitourinary: Reports: no symptoms Subjective Afebrile vitals stable, Telemetry shows sinus rhythm. No acute events. Left pleural effusion unchanged. Ventilator settings: portex 7, AC 16, TV: 600, FiO2: 30%, PEEP: 5. GT is in place running glucerna 1.2 @ 65 ml/hr. No residual present. Colostomy bag in place. JOE not completed, probe unable to be passed. Patient should be treated for total six weeks abx for presumptive endocarditis at this juncture. Hyponatremia resolved, DIVYA resolved, patient stable . Objective Last 24 Hour Vital Signs Date Time Temp Pulse Resp B/P (MAP) Pulse Ox O2 Delivery O2 Flow Rate FiO2 06/06/18 12:55 82 16 30 06/06/18 12:11 Mechanical Ventilator 06/06/18 12:10 30 06/06/18 12:00 105 06/06/18 12:00 Mechanical Ventilator 06/06/18 11:56 98.9 104 18 119/69 (86) 100 98.9 06/06/18 11:12 89 16 30 06/06/18 08:51 81 16 30 06/06/18 08:00 88 06/06/18 08:00 Mechanical Ventilator 06/06/18 08:00 98.6 92 18 102/75 (84) 96 98.6 06/06/18 08:00 30 06/06/18 07:26 79 16 30 06/06/18 05:25 85 16 30 06/06/18 04:00 30 06/06/18 04:00 78 06/06/18 04:00 Mechanical Ventilator 06/06/18 04:00 98.7 80 16 129/66 (87) 100 98.7 06/06/18 03:18 80 16 30 06/06/18 01:07 73 16 30 06/06/18 00:00 30 06/06/18 00:00 84 06/06/18 00:00 Mechanical Ventilator 06/05/18 23:59 98.3 75 17 113/73 (86) 99 98.3 06/05/18 23:02 77 16 30 06/05/18 20:46 82 16 30 06/05/18 20:00 30 06/05/18 20:00 Mechanical Ventilator 06/05/18 20:00 98.4 78 16 115/78 (90) 98 98.4 06/05/18 19:55 79 06/05/18 19:00 78 16 30 06/05/18 17:30 84 16 30 06/05/18 16:00 30 06/05/18 16:00 97.6 79 16 122/82 (95) 96 97.6 06/05/18 16:00 82 06/05/18 16:00 Mechanical Ventilator 06/05/18 15:29 79 18 30 General Appearance: no apparent distress, on vent EENT: PERRL/EOMI, normal ENT inspection, pharynx normal Neck: non-tender, normal alignment, supple, normal inspection, no JVD Rhythm: NSR Cardiovascular: normal peripheral pulses, normal rate, regular rhythm Respiratory/Chest: chest wall non-tender, lungs clear Abdomen: normal bowel sounds, non tender Extremities: normal range of motion, non-tender Neurologic: abnormal CN, motor weakness, sensory deficit Intake and Output 06/05/18 06/06/18 19:00 07:00 Intake Total 1100 ml 600 ml Output Total 640 ml 800 ml Balance 460 ml -200 ml Free Water 200 ml IV Total 250 ml Tube Feeding 650 ml 600 ml Output Urine Total 400 ml 550 ml Stool Total 240 ml 250 ml Laboratory Tests Test 06/06/18 04:58 White Blood Count 7.1 K/UL (4.8-10.8) Red Blood Count 4.74 M/UL (4.70-6.10) Hemoglobin 13.1 G/DL (14.2-18.0) L Hematocrit 41.3 % (42.0-52.0) L Mean Corpuscular Volume 87 FL (80-99) Mean Corpuscular Hemoglobin 27.6 PG (27.0-31.0) Mean Corpuscular Hemoglobin Concent 31.7 G/DL (32.0-36.0) L Red Cell Distribution Width 15.4 % (11.6-14.8) H Platelet Count 293 K/UL (150-450) Mean Platelet Volume 7.2 FL (6.5-10.1) Neutrophils (%) (Auto) 49.7 % (45.0-75.0) Lymphocytes (%) (Auto) 25.6 % (20.0-45.0) Monocytes (%) (Auto) 12.0 % (1.0-10.0) H Eosinophils (%) (Auto) 11.2 % (0.0-3.0) H Basophils (%) (Auto) 1.5 % (0.0-2.0) Sodium Level 137 MMOL/L (136-145) Potassium Level 4.0 MMOL/L (3.5-5.1) Chloride Level 102 MMOL/L (98-107) Carbon Dioxide Level 23 MMOL/L (21-32) Anion Gap 12 mmol/L (5-15) Blood Urea Nitrogen 18 mg/dL (7-18) Creatinine 1.0 MG/DL (0.55-1.30) Estimat Glomerular Filtration Rate > 60 mL/min (>60) Glucose Level 91 MG/DL (74-106) Calcium Level 10.3 MG/DL (8.5-10.1) H Kali Owens M.D. Jun 06, 2018 13:20
[2018-06-06 15:51] VITALS: BP 124/80
[2018-06-06 20:00] VITALS: BP 128/74
[2018-06-06] MEDS: Dyna-Hex 2% Top Sol 2oz TOPIC SCH (21:18)
[2018-06-06] MEDS: Miralax 17gm pkt GT SCH (21:19)
[2018-06-07] VITALS: BP 130/69
--- NOTE | 2018-06-07 01:15 | Progress Note ---
DATE: 06/06/2018 SUBJECTIVE: The patient is awake, alert, afebrile, and hemodynamically stable. PHYSICAL EXAMINATION: VITAL SIGNS: Blood pressure 130/69, his pulse is 85, respirations were 16, and temperature was 99.1. HEENT: Eyes were normal. ENT, mucous membranes were moist and intact. NECK: Supple with no JVD without lymph nodes. Tracheostomy site is clean. LUNGS: Clear without rhonchi, rales, or wheezing. Secretions are small, thin, and hodgson. HEART: Normal sounds with regular beats. There is no S3, S4, or pericardial rub. ABDOMEN: Soft and nontender with normal bowel sounds. Gastrostomy site is clean. EXTREMITIES: Warm without cyanosis, clubbing, or edema. LABORATORY AND DIAGNOSTIC DATA: Hemoglobin is 13.1, hematocrit 41.3 with MCV of 87, WBC of 7.1, and platelets is 293,000. His BUN and creatinine are 18 and 1.0 respectively. Sodium is 137, potassium 4.0, chloride 102, and CO2 is 23. IMPRESSION: The patient is now afebrile and hemodynamically stable without state. PLAN: Repeat laboratory tests will be done in the morning as well as chest x-ray. Sariah Bhat M.D. DR: KETAN JOB#: [id number] CC:
[2018-06-07] MEDS: Vancomycin 1.5 GM/D5W 250ML IVPB SCH ×2 (03:04→20:54)
[2018-06-07 04:00] VITALS: BP 120/84
[2018-06-07 05:14] LABS: BASOPHILS % (AUTO) 0.8 % (0.0-2.0); EOSINOPHILS % (AUTO) 11.4 % (0.0-3.0); HEMATOCRIT 40.2 % (42.0-52.0); HEMOGLOBIN 12.8 G/DL (14.2-18.0); LYMPHOCYTES % (AUTO) 26.4 % (20.0-45.0); MEAN CORPUSCULAR VOLUME 87 FL (80-99); MONOCYTES % (AUTO) 8.1 % (1.0-10.0); NEUTROPHILS % (AUTO) 53.3 % (45.0-75.0); PLATELET COUNT 303 K/UL (150-450); RED CELL DISTRIBUTION WIDTH 15.1 % (11.6-14.8); WHITE BLOOD COUNT 7.9 K/UL (4.8-10.8)
[2018-06-07 05:31] LABS: ANION GAP 12 mmol/L (5-15); BLOOD UREA NITROGEN 18 mg/dL (7-18); CALCIUM 9.9 MG/DL (8.5-10.1); CARBON DIOXIDE 23 MMOL/L (21-32); CHLORIDE 102 MMOL/L (98-107); CREATININE 1.1 MG/DL (0.55-1.30); POTASSIUM 3.9 MMOL/L (3.5-5.1); SODIUM 137 MMOL/L (136-145)
[2018-06-07] MEDS: levETIRAcetam 500mg/5ml Liquid GT SCH ×3 (05:31→22:25)
[2018-06-07] MEDS: NovoLOG Insulin Flexpen SUBQ SCH ×3 (05:32→17:21)
[2018-06-07 08:15] VITALS: BP 127/81
[2018-06-07] MEDS: Heparin 5000 units/ml inj SUBQ SCH ×2 (09:04→20:57)
--- NOTE | 2018-06-07 09:22 | Diagnostic Imaging Report ---
Indication: Tachypnea Technique: One view of the chest Comparison: 06/03/2018 Findings: There is a left-sided pleural effusion and some associated compressive atelectasis. This is unchanged. The right pleural space and bilateral lungs are otherwise clear. The heart size is normal. There is a tracheostomy. Findings are unchanged. Impression: Unchanged, over 4 days, including left pleural effusion and basilar atelectasis This agrees with the preliminary interpretation provided overnight by [facility] teleradiology service.
--- NOTE | 2018-06-07 09:31 | General Progress Note ---
Assessment/Plan Status: unchanged Assessment/Plan # Leukocytosis - Sepsis with elevated temperature of 103 degrees Fahrenheit. Had uti v bacteremia (CoNS) on abx, has improved. --> Pt on antibiotics, has received a dose of Zosyn and currently is on vancomycin q.12 h. now on cefepime --> Appreciate Infectious Disease recs --> 2D echo per ID performed on 05/22: No discrete vegetations seen, however SBE may not be excluded by transthoracic 2-D echo. --> 06/07: WBC of 7.9, wnl --> Currently afebrile # Anemia of chronic disease. No hemolysis, peripheral smear reviewed, ferritin was elevated. --> Continue to closely monitor --> Hgb goal >7 --> 06/07: Hgb 12.8 # Acute kidney injury. --> Currently on IV fluids, IV bolus given to see if the patient responds along with IV pressor as needed. --> Closely monitor with Nephrology team. # Septic shock, use antibiotic per ID services. --> potential uti, on abx and bacteremia # Respiratory failure, status post tracheostomy, on mechanical ventilation per Dr. Goetz --> Remains on vent --> 06/03 CXR: Unchanged left pleural effusion versus scarring, over 4 days # Hypercalcemia. Monitor PTH and calcium level. The time the note was entered does not necessarily correspond to the time the patient was seen. Subjective Date patient seen: Jun 07, 2018 ROS Limited/Unobtainable: Yes Hematologic/Lymphatic: Reports: anemia Allergies: Coded Allergies: AZTREONAM (Verified Allergy, Unknown, 05/13/18) All Systems: reviewed and negative except above Subjective Pt remains obtunded and vented. No acute events. H/H stable. CXR today unchanged over 4 days. Objective Last 24 Hour Vital Signs Date Time Temp Pulse Resp B/P (MAP) Pulse Ox O2 Delivery O2 Flow Rate FiO2 06/07/18 08:18 30 06/07/18 08:15 98.5 78 16 127/81 (96) 91 98.5 06/07/18 08:14 Mechanical Ventilator 06/07/18 08:02 77 06/07/18 07:05 80 17 30 06/07/18 05:30 84 17 30 06/07/18 04:04 90 06/07/18 04:00 30 06/07/18 04:00 Mechanical Ventilator 06/07/18 04:00 98.4 78 39 120/84 (96) 97 98.4 06/07/18 03:27 82 16 30 06/07/18 01:30 84 16 30 06/07/18 00:00 99.1 88 30 130/69 (89) 98 99.1 06/07/18 00:00 Mechanical Ventilator 06/06/18 23:30 85 16 30 06/06/18 23:27 84 06/06/18 21:30 80 16 30 06/06/18 20:00 30 06/06/18 20:00 Mechanical Ventilator 06/06/18 20:00 81 06/06/18 20:00 98.8 98 33 128/74 (92) 98 98.8 06/06/18 19:30 83 15 30 06/06/18 17:12 82 16 30 06/06/18 16:00 30 06/06/18 16:00 Mechanical Ventilator 06/06/18 16:00 104 06/06/18 15:51 98.2 92 18 124/80 (95) 98.2 06/06/18 15:27 84 16 30 06/06/18 12:55 82 16 30 06/06/18 12:11 Mechanical Ventilator 06/06/18 12:10 30 06/06/18 12:00 105 06/06/18 12:00 Mechanical Ventilator 06/06/18 11:56 98.9 104 18 119/69 (86) 100 98.9 06/06/18 11:12 89 16 30 Intake and Output 06/06/18 06/07/18 19:00 07:00 Intake Total 1100 ml 970.0 ml Output Total 780 ml 725 ml Balance 320 ml 245.0 ml Free Water 250 ml 120 ml IV Total 250 ml 250.0 ml Tube Feeding 600 ml 600 ml Output Urine Total 400 ml 350 ml Stool Total 380 ml 375 ml Laboratory Tests 06/07/18 04:12: White Blood Count 7.9, Red Blood Count 4.60L, Hemoglobin 12.8L, Hematocrit 40.2L , Mean Corpuscular Volume 87, Mean Corpuscular Hemoglobin 27.9, Mean Corpuscular Hemoglobin Concent 31.9L, Red Cell Distribution Width 15.1H, Platelet Count 303, Mean Platelet Volume 7.5, Neutrophils (%) (Auto) 53.3, Lymphocytes (%) (Auto) 26.4, Monocytes (%) (Auto) 8.1, Eosinophils (%) (Auto) 11.4H, Basophils (%) (Auto) 0.8, Sodium Level 137, Potassium Level 3.9, Chloride Level 102, Carbon Dioxide Level 23, Anion Gap 12, Blood Urea Nitrogen 18, Creatinine 1.1, Estimat Glomerular Filtration Rate > 60, Glucose Level 118H , Calcium Level 9.9 Height (Feet): 6 Height (Inches): 0.00 Weight (Pounds): 204 General Appearance: no apparent distress EENT: PERRL/EOMI Neck: normal alignment Cardiovascular: normal peripheral pulses Respiratory/Chest: no respiratory distress Abdomen: soft Jimmy Fleming MD Jun 07, 2018 09:31
--- NOTE | 2018-06-07 10:36 | General Progress Note ---
Assessment/Plan Problem List: (1) Parastomal hernia ICD Codes: K43.5 - Parastomal hernia without obstruction or gangrene SNOMED: 702799361 Qualifiers: Qualified Codes: K43.5 - Parastomal hernia without obstruction or gangrene (2) Stoma malfunction SNOMED: 870931783 (3) Gastrostomy tube dependent ICD Codes: Z93.1 - Gastrostomy status SNOMED: 752822442, 219100302 (4) Colostomy in place ICD Codes: Z93.3 - Colostomy status SNOMED: 369386895, 443446040 (5) Diabetes mellitus ICD Codes: E11.9 - Type 2 diabetes mellitus without complications SNOMED: 30639606 Assessment/Plan parastomal >> no s/sx of infection. no obstruction. anemia work up reviewed >> iron deficiency G tube dependent hepatitis panel negative OB negative supportive care monitor H&H, prn transfusions venofer ppi GTFs per RD, adv to goal GT site care daily/prn abx bowel regime fu labs dc planning Subjective ROS Limited/Unobtainable: No Allergies: Coded Allergies: AZTREONAM (Verified Allergy, Unknown, 05/13/18) Objective Last 24 Hour Vital Signs Date Time Temp Pulse Resp B/P (MAP) Pulse Ox O2 Delivery O2 Flow Rate FiO2 06/07/18 09:15 80 16 30 06/07/18 08:18 30 06/07/18 08:15 98.5 78 16 127/81 (96) 91 98.5 06/07/18 08:14 Mechanical Ventilator 06/07/18 08:02 77 06/07/18 07:05 80 17 30 06/07/18 05:30 84 17 30 06/07/18 04:04 90 06/07/18 04:00 30 06/07/18 04:00 Mechanical Ventilator 06/07/18 04:00 98.4 78 39 120/84 (96) 97 98.4 06/07/18 03:27 82 16 30 06/07/18 01:30 84 16 30 06/07/18 00:00 99.1 88 30 130/69 (89) 98 99.1 06/07/18 00:00 Mechanical Ventilator 06/06/18 23:30 85 16 30 06/06/18 23:27 84 06/06/18 21:30 80 16 30 06/06/18 20:00 30 06/06/18 20:00 Mechanical Ventilator 06/06/18 20:00 81 06/06/18 20:00 98.8 98 33 128/74 (92) 98 98.8 06/06/18 19:30 83 15 30 06/06/18 17:12 82 16 30 06/06/18 16:00 30 06/06/18 16:00 Mechanical Ventilator 06/06/18 16:00 104 06/06/18 15:51 98.2 92 18 124/80 (95) 98.2 06/06/18 15:27 84 16 30 06/06/18 12:55 82 16 30 06/06/18 12:11 Mechanical Ventilator 06/06/18 12:10 30 06/06/18 12:00 105 06/06/18 12:00 Mechanical Ventilator 06/06/18 11:56 98.9 104 18 119/69 (86) 100 98.9 06/06/18 11:12 89 16 30 Intake and Output 06/06/18 06/07/18 19:00 07:00 Intake Total 1100 ml 970.0 ml Output Total 780 ml 725 ml Balance 320 ml 245.0 ml Free Water 250 ml 120 ml IV Total 250 ml 250.0 ml Tube Feeding 600 ml 600 ml Output Urine Total 400 ml 350 ml Stool Total 380 ml 375 ml Laboratory Tests 06/07/18 04:12: White Blood Count 7.9, Red Blood Count 4.60L, Hemoglobin 12.8L, Hematocrit 40.2L , Mean Corpuscular Volume 87, Mean Corpuscular Hemoglobin 27.9, Mean Corpuscular Hemoglobin Concent 31.9L, Red Cell Distribution Width 15.1H, Platelet Count 303, Mean Platelet Volume 7.5, Neutrophils (%) (Auto) 53.3, Lymphocytes (%) (Auto) 26.4, Monocytes (%) (Auto) 8.1, Eosinophils (%) (Auto) 11.4H, Basophils (%) (Auto) 0.8, Sodium Level 137, Potassium Level 3.9, Chloride Level 102, Carbon Dioxide Level 23, Anion Gap 12, Blood Urea Nitrogen 18, Creatinine 1.1, Estimat Glomerular Filtration Rate > 60, Glucose Level 118H , Calcium Level 9.9 Height (Feet): 6 Height (Inches): 0.00 Weight (Pounds): 204 General Appearance: no apparent distress EENT: normal ENT inspection Neck: supple Cardiovascular: normal rate Respiratory/Chest: decreased breath sounds Abdomen: normal bowel sounds, non tender, soft Extremities: non-tender Dae Prater MD Jun 07, 2018 10:36
[2018-06-07 12:00] VITALS: BP 124/78
--- NOTE | 2018-06-07 13:08 | Pulmonolgy Critical Care Note ---
Critical Care - Asmt/Plan Problems: (1) Acute on chronic respiratory failure (2) Acute on chronic renal insufficiency (3) Severe sepsis (4) Vegetative state (5) Colostomy in place (6) Diabetes mellitus Respiratory: monitor respiratory rate, adjust FIO2 Cardiac: start pressors, continue pressors Renal: F/U I&O, keep IV fluid Infectious Disease: continue antibiotics Gastrointestinal: continue feedings/current rate Endocrine: monitor blood sugar, check HgA1C, continue sliding scale insulin Hematologic: transfuse if hgb<8.5 Neurologic: PRN Ativan, PRN Morphine, keep patient comfortable Affect: PRN ativan Prophylaxis: Protonix Notes Reviewed: cardio Discussed with: nurses, consultants, rn field case managerfield account manager - Objective Last 24 Hour Vital Signs Date Time Temp Pulse Resp B/P (MAP) Pulse Ox O2 Delivery O2 Flow Rate FiO2 06/07/18 12:00 81 06/07/18 12:00 98.6 80 16 124/78 (93) 99 98.6 06/07/18 12:00 Mechanical Ventilator 06/07/18 12:00 30 06/07/18 10:43 81 16 30 06/07/18 09:15 80 16 30 06/07/18 08:18 30 06/07/18 08:15 98.5 78 16 127/81 (96) 91 98.5 06/07/18 08:14 Mechanical Ventilator 06/07/18 08:02 77 06/07/18 07:05 80 17 30 06/07/18 05:30 84 17 30 06/07/18 04:04 90 06/07/18 04:00 30 06/07/18 04:00 Mechanical Ventilator 06/07/18 04:00 98.4 78 39 120/84 (96) 97 98.4 06/07/18 03:27 82 16 30 06/07/18 01:30 84 16 30 06/07/18 00:00 99.1 88 30 130/69 (89) 98 99.1 06/07/18 00:00 Mechanical Ventilator 06/06/18 23:30 85 16 30 06/06/18 23:27 84 06/06/18 21:30 80 16 30 06/06/18 20:00 30 06/06/18 20:00 Mechanical Ventilator 06/06/18 20:00 81 06/06/18 20:00 98.8 98 33 128/74 (92) 98 98.8 06/06/18 19:30 83 15 30 06/06/18 17:12 82 16 30 06/06/18 16:00 30 06/06/18 16:00 Mechanical Ventilator 06/06/18 16:00 104 06/06/18 15:51 98.2 92 18 124/80 (95) 98.2 06/06/18 15:27 84 16 30 Status: awake Condition: critical, grave Lungs: clear Heart: HR/BP stable, HR/BP unstable Abdomen: soft, active bowel sounds Extremities: no C/C/E, edema Accucheck: 117 Critical Care - Subjective EKG Rhythm: Sinus Bradycardia FI02: 30 Vent Support Breath Rate: 16 Vent Support Mode: AC Vent Tidal Volume: 600 Sputum Amount: Small PEEP: 5.0 PIP: 33 Tube Feeding Amount: 50 I&O: Intake and Output 06/06/18 06/07/18 19:00 07:00 Intake Total 1100 ml 970.0 ml Output Total 780 ml 725 ml Balance 320 ml 245.0 ml Free Water 250 ml 120 ml IV Total 250 ml 250.0 ml Tube Feeding 600 ml 600 ml Output Urine Total 400 ml 350 ml Stool Total 380 ml 375 ml Labs: Laboratory Tests Test 06/07/18 04:12 White Blood Count 7.9 K/UL (4.8-10.8) Red Blood Count 4.60 M/UL (4.70-6.10) L Hemoglobin 12.8 G/DL (14.2-18.0) L Hematocrit 40.2 % (42.0-52.0) L Mean Corpuscular Volume 87 FL (80-99) Mean Corpuscular Hemoglobin 27.9 PG (27.0-31.0) Mean Corpuscular Hemoglobin Concent 31.9 G/DL (32.0-36.0) L Red Cell Distribution Width 15.1 % (11.6-14.8) H Platelet Count 303 K/UL (150-450) Mean Platelet Volume 7.5 FL (6.5-10.1) Neutrophils (%) (Auto) 53.3 % (45.0-75.0) Lymphocytes (%) (Auto) 26.4 % (20.0-45.0) Monocytes (%) (Auto) 8.1 % (1.0-10.0) Eosinophils (%) (Auto) 11.4 % (0.0-3.0) H Basophils (%) (Auto) 0.8 % (0.0-2.0) Sodium Level 137 MMOL/L (136-145) Potassium Level 3.9 MMOL/L (3.5-5.1) Chloride Level 102 MMOL/L (98-107) Carbon Dioxide Level 23 MMOL/L (21-32) Anion Gap 12 mmol/L (5-15) Blood Urea Nitrogen 18 mg/dL (7-18) Creatinine 1.1 MG/DL (0.55-1.30) Estimat Glomerular Filtration Rate > 60 mL/min (>60) Glucose Level 118 MG/DL (74-106) H Calcium Level 9.9 MG/DL (8.5-10.1) Nico Goetz MD Jun 07, 2018 13:08
[2018-06-07] MEDS ORDERED: NS 275ml ONE (15:29)
[2018-06-07 16:00] VITALS: BP 132/88
--- NOTE | 2018-06-07 17:28 | Infectious Diseases Prog Note ---
Assessment/Plan Assessment/Plan Assessment/Plan Sepsis, SP- 2ry to UTI and Bacteremia Blood cultures postive 01/23 bottles with GPC Unclear source will need to R/O Endocarditis Possible PNA initially -u/a wbc 40-60, nit neg, leuk +2; ucx >100k E. aerogenes (S cefepime, cipro/ levo; R Zosyn) -BCX 01/23 E. aerogenes, prob Amp C (S cefepime, cipro/levo; R Zosyn), P. mirabilis ESBL (S Zosyn, Ertapenem); repeta 05/16 10/25 CoNS (suspect contaminant) , 05/18 Staph f/u final results if CoNS may need TTE and IE work up. -CXR 05/17: Increased left pleural effusion, over 3 days. Overall decreased interstitial congestion. Right infrahilar atelectasis -CXR: Cardiomegaly. Mild interstitial congestion. Suspect small bilateral pleural effusions -CT abd/p: Right lower quadrant double barrel colostomy, as described. Small peristomal hernia contains bowel loops without evidence of obstruction or strangulation. Left renal staghorn calculus. Bilateral intrarenal calyceal calculi. Borderline hydronephrosis on the right without evidence of downstream obstructive lesion. May indicate mild ureteral pelvic junction obstruction. Somewhat atrophic left kidney. Inspissated contrast ball within the distal sigmoid colon. Gastrostomy in good position. Nonspecific bilateral perinephric fat stranding, could indicate pyelonephritis or could be chronic. Newberry catheter in place. Apparent bladder wall thickening, possibly an artifact of under distention but cystitis is not excludable, particularly in view of mild perivesical fat stranding. Bilateral pulmonary parenchymal atelectasis and consolidation -Blood Cx from PICC CoNS 2/2 bottles Peripheral Neg- (May be contaminant but will repeat blood Cx given new leukocytosis if positive will need ECHO. - Blood Cx 05/20/18 - GPC - Will need TTE for IE work up and the PICC removed. PICC line infection/colonization - TTE negative. Blood cultures only positive from PICC. Not positive from Peripheral - Will repeat blood cultures x 1 to confirm clearance after PICC replaced. Los suspicion for IE. - PICC replace 05/22/18 Fever/Leukocytosis; Resolved - i recurs Re-evaluate lines, Diarrhea? C. dif? DIVYA, improving Lactic acidosis, resolved chronic resp failure trach/vent dependant BPH GERD HTN DM2 seizure disorder colostomy s/p GT constipation VRE and MRSA colonized Plan: - Continue empiric IV Vancomycin # for bacteremia/line infection cant r/o Endocarditis -Abx end date 07/03/18 if JOE attempted again and negative then ed date would be 06/05/18 -weekly CBC, BMP, vanco through -05/30 SP Ertapenem #14 -05/17 SP Zosyn #4 JOE could not be performed due to technical problems - Unable to repeat JOE so patient should be treated for presumed endocarditis for 6 weeks - Monitor CBC/CMP, temperatures - Pulmonary care Thank you for this consultation. Will continue to follow along with you. Subjective Allergies: Coded Allergies: AZTREONAM (Verified Allergy, Unknown, 05/13/18) Subjective afebrile no leukocytosis Objective Vital Signs Last 24 Hour Vital Signs Date Time Temp Pulse Resp B/P (MAP) Pulse Ox O2 Delivery O2 Flow Rate FiO2 06/07/18 16:33 77 16 30 06/07/18 16:00 30 06/07/18 16:00 89 06/07/18 16:00 Mechanical Ventilator 06/07/18 15:00 80 17 30 06/07/18 12:30 78 17 30 06/07/18 12:00 81 06/07/18 12:00 98.6 80 16 124/78 (93) 99 98.6 06/07/18 12:00 Mechanical Ventilator 06/07/18 12:00 30 06/07/18 10:43 81 16 30 06/07/18 09:15 80 16 30 06/07/18 08:18 30 06/07/18 08:15 98.5 78 16 127/81 (96) 91 98.5 06/07/18 08:14 Mechanical Ventilator 06/07/18 08:02 77 06/07/18 07:05 80 17 30 06/07/18 05:30 84 17 30 06/07/18 04:04 90 06/07/18 04:00 30 06/07/18 04:00 Mechanical Ventilator 06/07/18 04:00 98.4 78 39 120/84 (96) 97 98.4 06/07/18 03:27 82 16 30 06/07/18 01:30 84 16 30 06/07/18 00:00 99.1 88 30 130/69 (89) 98 99.1 06/07/18 00:00 Mechanical Ventilator 06/06/18 23:30 85 16 30 06/06/18 23:27 84 06/06/18 21:30 80 16 30 06/06/18 20:00 30 06/06/18 20:00 Mechanical Ventilator 06/06/18 20:00 81 06/06/18 20:00 98.8 98 33 128/74 (92) 98 98.8 06/06/18 19:30 83 15 30 Height (Feet): 6 Height (Inches): 0.00 Weight (Pounds): 204 Objective GENERAL: The patient is awake, in no overt distress. HEENT: Extraocular muscles intact. No lymphadenopathy noted. Tracheostomy noted. CARDIOVASCULAR: S1 and S2. Tachycardic. No rubs or gallops. PULMONARY: Mild diffuse expiratory rhonchi with basilar rales. ABDOMEN: Obese and nondistended. The G-tube and stoma noted. EXTREMITIES: No edema. Fair pedal pulses. Laboratory Tests Test 06/07/18 04:12 White Blood Count 7.9 K/UL (4.8-10.8) Red Blood Count 4.60 M/UL (4.70-6.10) L Hemoglobin 12.8 G/DL (14.2-18.0) L Hematocrit 40.2 % (42.0-52.0) L Mean Corpuscular Volume 87 FL (80-99) Mean Corpuscular Hemoglobin 27.9 PG (27.0-31.0) Mean Corpuscular Hemoglobin Concent 31.9 G/DL (32.0-36.0) L Red Cell Distribution Width 15.1 % (11.6-14.8) H Platelet Count 303 K/UL (150-450) Mean Platelet Volume 7.5 FL (6.5-10.1) Neutrophils (%) (Auto) 53.3 % (45.0-75.0) Lymphocytes (%) (Auto) 26.4 % (20.0-45.0) Monocytes (%) (Auto) 8.1 % (1.0-10.0) Eosinophils (%) (Auto) 11.4 % (0.0-3.0) H Basophils (%) (Auto) 0.8 % (0.0-2.0) Sodium Level 137 MMOL/L (136-145) Potassium Level 3.9 MMOL/L (3.5-5.1) Chloride Level 102 MMOL/L (98-107) Carbon Dioxide Level 23 MMOL/L (21-32) Anion Gap 12 mmol/L (5-15) Blood Urea Nitrogen 18 mg/dL (7-18) Creatinine 1.1 MG/DL (0.55-1.30) Estimat Glomerular Filtration Rate > 60 mL/min (>60) Glucose Level 118 MG/DL (74-106) H Calcium Level 9.9 MG/DL (8.5-10.1) Current Medications Medications (Trade) Dose Ordered Sig/Va Route PRN Reason Start Time Stop Time Status Last Admin Dose Admin Acetaminophen (Tylenol) 650 mg Q4H PRN ORAL FEVER 05/16/18 14:00 06/13/18 09:59 06/02/18 23:43 Baclofen (Lioresal) 10 mg EVERY 8 HOURS GT 05/20/18 14:00 06/13/18 12:59 06/07/18 14:21 Chlorhexidine Gluconate (Rebecca-Hex 2%) 1 applic DAILY@2000 TOPIC 05/16/18 20:00 06/13/18 19:59 06/06/18 21:18 Dextrose (Dextrose 50%) 25 ml STAT PRN IV Hypoglycemia 05/17/18 08:45 06/14/18 08:44 Dextrose (Dextrose 50%) 50 ml STAT PRN IV Hypoglycemia 05/17/18 08:45 06/14/18 08:44 Heparin Sodium (Porcine) (Heparin 5000 units/ml) 5,000 units EVERY 12 HOURS SUBQ 05/16/18 21:00 06/13/18 20:59 06/07/18 09:04 Insulin Aspart (NovoLOG) Q6HR SUBQ 05/16/18 18:00 06/14/18 11:29 06/07/18 17:21 Lansoprazole (Prevacid) 30 mg DAILY GT 05/17/18 09:00 06/15/18 08:59 06/07/18 09:04 Levetiracetam (Keppra) 1,000 mg Q8HR GT 05/16/18 14:00 06/13/18 12:59 06/07/18 14:21 Ondansetron HCl (Zofran) 4 mg Q6H PRN IVP Nausea & Vomiting 05/16/18 16:00 06/13/18 09:59 Polyethylene Glycol (Miralax) 17 gm BEDTIME GT 05/20/18 21:00 06/14/18 20:59 06/06/18 21:19 Vancomycin HCl (Vanco rx to dose) 1 ea DAILY PRN MISC PER RX PROTOCOL 05/18/18 13:15 06/17/18 13:14 Vancomycin HCl/ Dextrose 250 ml @ 125 mls/hr Q18H IVPB 05/29/18 21:00 07/03/18 22:00 06/07/18 03:04 Maribel Barrera M.D. Jun 07, 2018 17:28
--- NOTE | 2018-06-07 19:10 | Cardiology Progress Note ---
Assessment/Plan Status: stable, progressing Assessment/Plan Assessment: (1) Acute on chronic respiratory failure (2) Acute on chronic renal insufficiency (3) Severe sepsis (4) Vegetative state (5) Colostomy in place (6) Diabetes mellitus Plan: Continue antibiotics Echocardiogram reviewed- no endocarditis, JOE unable to be performed Patient afebrile, normal WBC otherwise Continue trach care and tube feeds Continue keppra for seizures Continue abx treatment for six weeks via PICC line until 07/06 Dispo planning Subjective Cardiovascular: Reports: no symptoms Respiratory: Reports: no symptoms Gastrointestinal/Abdominal: Reports: no symptoms Genitourinary: Reports: no symptoms Subjective Afebrile vitals stable, Telemetry shows sinus rhythm. No acute events. Left pleural effusion unchanged. Ventilator settings: portex 7, AC 16, TV: 600, FiO2: 30%, PEEP: 5. GT is in place running glucerna 1.2 @ 65 ml/hr. No residual present. Colostomy bag in place. JOE not completed, probe unable to be passed. Patient should be treated for total six weeks abx for presumptive endocarditis at this juncture. Hyponatremia resolved, DIVYA resolved, patient stable . Objective Last 24 Hour Vital Signs Date Time Temp Pulse Resp B/P (MAP) Pulse Ox O2 Delivery O2 Flow Rate FiO2 06/07/18 16:33 77 16 30 06/07/18 16:00 30 06/07/18 16:00 89 06/07/18 16:00 Mechanical Ventilator 06/07/18 16:00 98.8 79 18 132/88 (103) 99 98.8 06/07/18 15:00 80 17 30 06/07/18 12:30 78 17 30 06/07/18 12:00 81 06/07/18 12:00 98.6 80 16 124/78 (93) 99 98.6 06/07/18 12:00 Mechanical Ventilator 06/07/18 12:00 30 06/07/18 10:43 81 16 30 06/07/18 09:15 80 16 30 06/07/18 08:18 30 06/07/18 08:15 98.5 78 16 127/81 (96) 91 98.5 06/07/18 08:14 Mechanical Ventilator 06/07/18 08:02 77 06/07/18 07:05 80 17 30 06/07/18 05:30 84 17 30 06/07/18 04:04 90 06/07/18 04:00 30 06/07/18 04:00 Mechanical Ventilator 06/07/18 04:00 98.4 78 39 120/84 (96) 97 98.4 06/07/18 03:27 82 16 30 06/07/18 01:30 84 16 30 06/07/18 00:00 99.1 88 30 130/69 (89) 98 99.1 06/07/18 00:00 Mechanical Ventilator 06/06/18 23:30 85 16 30 06/06/18 23:27 84 06/06/18 21:30 80 16 30 06/06/18 20:00 30 06/06/18 20:00 Mechanical Ventilator 06/06/18 20:00 81 06/06/18 20:00 98.8 98 33 128/74 (92) 98 98.8 06/06/18 19:30 83 15 30 General Appearance: no apparent distress, on vent EENT: PERRL/EOMI, normal ENT inspection Neck: non-tender, normal alignment Rhythm: NSR Cardiovascular: normal rate, regular rhythm Respiratory/Chest: chest wall non-tender, lungs clear Abdomen: normal bowel sounds, non tender Extremities: normal range of motion, non-tender, normal inspection Neurologic: tutoring manager II-XII grossly normal Intake and Output 06/06/18 06/07/18 19:00 07:00 Intake Total 1100 ml 1020.0 ml Output Total 780 ml 725 ml Balance 320 ml 295.0 ml Free Water 250 ml 120 ml IV Total 250 ml 250.0 ml Tube Feeding 600 ml 650 ml Output Urine Total 400 ml 350 ml Stool Total 380 ml 375 ml Laboratory Tests Test 06/07/18 04:12 White Blood Count 7.9 K/UL (4.8-10.8) Red Blood Count 4.60 M/UL (4.70-6.10) L Hemoglobin 12.8 G/DL (14.2-18.0) L Hematocrit 40.2 % (42.0-52.0) L Mean Corpuscular Volume 87 FL (80-99) Mean Corpuscular Hemoglobin 27.9 PG (27.0-31.0) Mean Corpuscular Hemoglobin Concent 31.9 G/DL (32.0-36.0) L Red Cell Distribution Width 15.1 % (11.6-14.8) H Platelet Count 303 K/UL (150-450) Mean Platelet Volume 7.5 FL (6.5-10.1) Neutrophils (%) (Auto) 53.3 % (45.0-75.0) Lymphocytes (%) (Auto) 26.4 % (20.0-45.0) Monocytes (%) (Auto) 8.1 % (1.0-10.0) Eosinophils (%) (Auto) 11.4 % (0.0-3.0) H Basophils (%) (Auto) 0.8 % (0.0-2.0) Sodium Level 137 MMOL/L (136-145) Potassium Level 3.9 MMOL/L (3.5-5.1) Chloride Level 102 MMOL/L (98-107) Carbon Dioxide Level 23 MMOL/L (21-32) Anion Gap 12 mmol/L (5-15) Blood Urea Nitrogen 18 mg/dL (7-18) Creatinine 1.1 MG/DL (0.55-1.30) Estimat Glomerular Filtration Rate > 60 mL/min (>60) Glucose Level 118 MG/DL (74-106) H Calcium Level 9.9 MG/DL (8.5-10.1) Kali Owens M.D. Jun 07, 2018 19:10
[2018-06-07 20:00] VITALS: BP 124/82
[2018-06-07] MEDS: Dyna-Hex 2% Top Sol 2oz TOPIC SCH (20:54)
[2018-06-07] MEDS: Miralax 17gm pkt GT SCH (20:54)
--- NOTE | 2018-06-07 23:45 | Progress Note ---
DATE: 06/07/2018 SUBJECTIVE: The patient appears more awake and more alert than previously. However, there is no eye contact and he remained in the same depth of coma. PHYSICAL EXAMINATION: VITAL SIGNS: Blood pressure 132/98, his pulse is 89, respirations 17, and temperature 98.8. HEENT: Eyes were normal. ENT, mucous membranes were moist and intact. NECK: Supple with no JVD without lymph nodes. Tracheostomy site is clean. LUNGS: Clear without rhonchi, rales, or wheezing. Secretions are small, thin, and hodgson. HEART: Normal sounds with regular beats. There is no tachycardia at rest. ABDOMEN: Soft and nontender with normal bowel sounds. Gastrostomy site is clean. EXTREMITIES: Warm without cyanosis, clubbing, or edema. LABORATORY AND DIAGNOSTIC DATA: His hemoglobin is 12.8, hematocrit 40.2 with MCV of 87, WBC of 7.9, and platelets is 303,000. His BUN and creatinine are 18 and 1.1 respectively. Sodium is 137, potassium 3.9, chloride 102, and CO2 is 23. A chest x-ray today revealed left pleural effusion and right basilar atelectasis unchanged in the last several days. PLAN: Repeat laboratory tests will be done in the morning. Sariah Bhat M.D. DR: KETAN JOB#: [id number] CC:
[2018-06-08] VITALS: BP 124/84
[2018-06-08 04:00] VITALS: BP 122/83
[2018-06-08] MEDS: levETIRAcetam 500mg/5ml Liquid GT SCH ×3 (05:47→21:51)
[2018-06-08] MEDS: NovoLOG Insulin Flexpen SUBQ SCH ×5 (05:48→23:38)
[2018-06-08 08:24] VITALS: BP 128/78
[2018-06-08] MEDS: Heparin 5000 units/ml inj SUBQ SCH ×2 (08:43→21:53)
--- NOTE | 2018-06-08 10:55 | Cardiology Progress Note ---
Assessment/Plan Status: stable Assessment/Plan Assessment: (1) Acute on chronic respiratory failure (2) Acute on chronic renal insufficiency (3) Severe sepsis (4) Vegetative state (5) Colostomy in place (6) Diabetes mellitus Plan: Continue antibiotics Echocardiogram reviewed- no endocarditis, JOE unable to be performed Patient afebrile, normal WBC otherwise Continue trach care and tube feeds Continue keppra for seizures Continue abx treatment for six weeks via PICC line until 07/06 Dispo planning Subjective Cardiovascular: Reports: no symptoms Respiratory: Reports: no symptoms Gastrointestinal/Abdominal: Reports: no symptoms Genitourinary: Reports: no symptoms Subjective Afebrile vitals stable, Telemetry shows sinus rhythm. No acute events. Left pleural effusion unchanged. Ventilator settings: portex 7, AC 16, TV: 600, FiO2: 30%, PEEP: 5. GT is in place running glucerna 1.2 @ 65 ml/hr. No residual present. Colostomy bag in place. JOE not completed, probe unable to be passed. Patient should be treated for total six weeks abx for presumptive endocarditis at this juncture. Hyponatremia resolved, DIVYA resolved, patient stable . Objective Last 24 Hour Vital Signs Date Time Temp Pulse Resp B/P (MAP) Pulse Ox O2 Delivery O2 Flow Rate FiO2 06/08/18 09:29 78 16 30 06/08/18 08:32 30 06/08/18 08:30 Mechanical Ventilator 06/08/18 08:24 98.4 76 18 128/78 (95) 99 98.4 06/08/18 08:00 75 06/08/18 06:35 74 16 30 06/08/18 05:00 79 16 30 06/08/18 04:00 72 06/08/18 04:00 30 06/08/18 04:00 99.3 72 16 122/83 (96) 99 99.3 06/08/18 04:00 Mechanical Ventilator 06/08/18 03:28 77 16 30 06/08/18 01:21 78 16 30 06/08/18 00:00 Mechanical Ventilator 06/08/18 00:00 99.4 79 17 124/84 (97) 98 99.4 06/08/18 00:00 80 06/08/18 00:00 30 06/07/18 23:29 81 16 30 06/07/18 20:35 82 16 30 06/07/18 20:00 86 06/07/18 20:00 98.4 75 16 124/82 (96) 99 98.4 06/07/18 20:00 Mechanical Ventilator 06/07/18 20:00 30 06/07/18 19:09 79 16 30 06/07/18 16:33 77 16 30 06/07/18 16:00 30 06/07/18 16:00 89 06/07/18 16:00 Mechanical Ventilator 06/07/18 16:00 98.8 79 18 132/88 (103) 99 98.8 06/07/18 15:00 80 17 30 06/07/18 12:30 78 17 30 06/07/18 12:00 81 06/07/18 12:00 98.6 80 16 124/78 (93) 99 98.6 06/07/18 12:00 Mechanical Ventilator 06/07/18 12:00 30 General Appearance: no apparent distress, on vent EENT: PERRL/EOMI, normal ENT inspection, TMs normal Neck: non-tender, normal alignment, supple, normal inspection Rhythm: NSR Cardiovascular: normal peripheral pulses, normal rate, regular rhythm Respiratory/Chest: chest wall non-tender, lungs clear Abdomen: normal bowel sounds, non tender Extremities: normal range of motion, non-tender Neurologic: order dispatcher II-XII grossly normal Intake and Output 06/07/18 06/08/18 19:00 07:00 Intake Total 700 ml 950 ml Output Total 650 ml 775 ml Balance 50 ml 175 ml Free Water 80 ml IV Total 250 ml Tube Feeding 600 ml 600 ml Blood Product 20 ml Other 100 ml Output Urine Total 650 ml 300 ml Stool Total 475 ml Kali Owens M.D. Jun 08, 2018 10:55
[2018-06-08 12:00] VITALS: BP 124/87
--- NOTE | 2018-06-08 12:19 | General Progress Note ---
Assessment/Plan Problem List: (1) Parastomal hernia ICD Codes: K43.5 - Parastomal hernia without obstruction or gangrene SNOMED: 849059913 Qualifiers: Qualified Codes: K43.5 - Parastomal hernia without obstruction or gangrene (2) Stoma malfunction SNOMED: 964029019 (3) Gastrostomy tube dependent ICD Codes: Z93.1 - Gastrostomy status SNOMED: 907228779, 648068548 (4) Colostomy in place ICD Codes: Z93.3 - Colostomy status SNOMED: 434194415, 150499048 (5) Diabetes mellitus ICD Codes: E11.9 - Type 2 diabetes mellitus without complications SNOMED: 55409278 Assessment/Plan parastomal >> no s/sx of infection. no obstruction. anemia work up reviewed >> iron deficiency G tube dependent hepatitis panel negative OB negative supportive care monitor H&H, prn transfusions venofer ppi GTFs per RD, adv to goal GT site care daily/prn abx bowel regime fu labs dc planning Subjective ROS Limited/Unobtainable: No Allergies: Coded Allergies: AZTREONAM (Verified Allergy, Unknown, 05/13/18) Objective Last 24 Hour Vital Signs Date Time Temp Pulse Resp B/P (MAP) Pulse Ox O2 Delivery O2 Flow Rate FiO2 06/08/18 11:25 75 16 30 06/08/18 09:29 78 16 30 06/08/18 08:32 30 06/08/18 08:30 Mechanical Ventilator 06/08/18 08:24 98.4 76 18 128/78 (95) 99 98.4 06/08/18 08:00 75 06/08/18 06:35 74 16 30 06/08/18 05:00 79 16 30 06/08/18 04:00 72 06/08/18 04:00 30 06/08/18 04:00 99.3 72 16 122/83 (96) 99 99.3 06/08/18 04:00 Mechanical Ventilator 06/08/18 03:28 77 16 30 06/08/18 01:21 78 16 30 06/08/18 00:00 Mechanical Ventilator 06/08/18 00:00 99.4 79 17 124/84 (97) 98 99.4 06/08/18 00:00 80 06/08/18 00:00 30 06/07/18 23:29 81 16 30 06/07/18 20:35 82 16 30 06/07/18 20:00 86 06/07/18 20:00 98.4 75 16 124/82 (96) 99 98.4 06/07/18 20:00 Mechanical Ventilator 06/07/18 20:00 30 06/07/18 19:09 79 16 30 06/07/18 16:33 77 16 30 06/07/18 16:00 30 06/07/18 16:00 89 06/07/18 16:00 Mechanical Ventilator 06/07/18 16:00 98.8 79 18 132/88 (103) 99 98.8 06/07/18 15:00 80 17 30 06/07/18 12:30 78 17 30 Intake and Output 06/07/18 06/08/18 19:00 07:00 Intake Total 700 ml 950 ml Output Total 650 ml 775 ml Balance 50 ml 175 ml Free Water 80 ml IV Total 250 ml Tube Feeding 600 ml 600 ml Blood Product 20 ml Other 100 ml Output Urine Total 650 ml 300 ml Stool Total 475 ml Height (Feet): 6 Height (Inches): 0.00 Weight (Pounds): 191 General Appearance: no apparent distress EENT: normal ENT inspection Neck: supple Cardiovascular: normal rate Respiratory/Chest: decreased breath sounds Abdomen: normal bowel sounds, non tender, soft Extremities: non-tender Dae Prater MD Jun 08, 2018 12:19
--- NOTE | 2018-06-08 12:32 | Infectious Diseases Prog Note ---
Assessment/Plan Assessment/Plan Assessment/Plan Sepsis, SP- 2ry to UTI and Bacteremia Blood cultures postive 01/23 bottles with GPC Unclear source will need to R/O Endocarditis Possible PNA initially -u/a wbc 40-60, nit neg, leuk +2; ucx >100k E. aerogenes (S cefepime, cipro/ levo; R Zosyn) -BCX 01/23 E. aerogenes, prob Amp C (S cefepime, cipro/levo; R Zosyn), P. mirabilis ESBL (S Zosyn, Ertapenem); repeta 05/16 10/25 CoNS (suspect contaminant) , 05/18 Staph f/u final results if CoNS may need TTE and IE work up. -CXR 05/17: Increased left pleural effusion, over 3 days. Overall decreased interstitial congestion. Right infrahilar atelectasis -CXR: Cardiomegaly. Mild interstitial congestion. Suspect small bilateral pleural effusions -CT abd/p: Right lower quadrant double barrel colostomy, as described. Small peristomal hernia contains bowel loops without evidence of obstruction or strangulation. Left renal staghorn calculus. Bilateral intrarenal calyceal calculi. Borderline hydronephrosis on the right without evidence of downstream obstructive lesion. May indicate mild ureteral pelvic junction obstruction. Somewhat atrophic left kidney. Inspissated contrast ball within the distal sigmoid colon. Gastrostomy in good position. Nonspecific bilateral perinephric fat stranding, could indicate pyelonephritis or could be chronic. Newberry catheter in place. Apparent bladder wall thickening, possibly an artifact of under distention but cystitis is not excludable, particularly in view of mild perivesical fat stranding. Bilateral pulmonary parenchymal atelectasis and consolidation -Blood Cx from PICC CoNS 2/2 bottles Peripheral Neg- (May be contaminant but will repeat blood Cx given new leukocytosis if positive will need ECHO. - Blood Cx 05/20/18 - GPC - Will need TTE for IE work up and the PICC removed. PICC line infection/colonization - TTE negative. Blood cultures only positive from PICC. Not positive from Peripheral - Will repeat blood cultures x 1 to confirm clearance after PICC replaced. Los suspicion for IE. - PICC replace 05/22/18 Fever/Leukocytosis; Resolved - i recurs Re-evaluate lines, Diarrhea? C. dif? DIVYA, improving Lactic acidosis, resolved chronic resp failure trach/vent dependant BPH GERD HTN DM2 seizure disorder colostomy s/p GT constipation VRE and MRSA colonized Plan: - Continue empiric IV Vancomycin # for bacteremia/line infection cant r/o Endocarditis -Abx end date 07/03/18 if JOE attempted again and negative then ed date would be 06/05/18 -weekly CBC, BMP, vanco through -05/30 SP Ertapenem #14 -05/17 SP Zosyn #4 JOE could not be performed due to technical problems - Unable to repeat JOE so patient should be treated for presumed endocarditis for 6 weeks - Monitor CBC/CMP, temperatures - Pulmonary care Thank you for this consultation. Will continue to follow along with you. Subjective Allergies: Coded Allergies: AZTREONAM (Verified Allergy, Unknown, 05/13/18) Subjective afebrile no leukocytosis Objective Vital Signs Last 24 Hour Vital Signs Date Time Temp Pulse Resp B/P (MAP) Pulse Ox O2 Delivery O2 Flow Rate FiO2 06/08/18 12:00 Mechanical Ventilator 06/08/18 12:00 30 06/08/18 11:25 75 16 30 06/08/18 09:29 78 16 30 06/08/18 08:32 30 06/08/18 08:30 Mechanical Ventilator 06/08/18 08:24 98.4 76 18 128/78 (95) 99 98.4 06/08/18 08:00 75 06/08/18 06:35 74 16 30 06/08/18 05:00 79 16 30 06/08/18 04:00 72 06/08/18 04:00 30 06/08/18 04:00 99.3 72 16 122/83 (96) 99 99.3 06/08/18 04:00 Mechanical Ventilator 06/08/18 03:28 77 16 30 06/08/18 01:21 78 16 30 06/08/18 00:00 Mechanical Ventilator 06/08/18 00:00 99.4 79 17 124/84 (97) 98 99.4 06/08/18 00:00 80 06/08/18 00:00 30 06/07/18 23:29 81 16 30 06/07/18 20:35 82 16 30 06/07/18 20:00 86 06/07/18 20:00 98.4 75 16 124/82 (96) 99 98.4 06/07/18 20:00 Mechanical Ventilator 06/07/18 20:00 30 06/07/18 19:09 79 16 30 06/07/18 16:33 77 16 30 06/07/18 16:00 30 06/07/18 16:00 89 06/07/18 16:00 Mechanical Ventilator 06/07/18 16:00 98.8 79 18 132/88 (103) 99 98.8 06/07/18 15:00 80 17 30 Height (Feet): 6 Height (Inches): 0.00 Weight (Pounds): 191 Objective GENERAL: The patient is awake, in no overt distress. HEENT: Extraocular muscles intact. No lymphadenopathy noted. Tracheostomy noted. CARDIOVASCULAR: S1 and S2. Tachycardic. No rubs or gallops. PULMONARY: Mild diffuse expiratory rhonchi with basilar rales. ABDOMEN: Obese and nondistended. The G-tube and stoma noted. EXTREMITIES: No edema. Fair pedal pulses. Current Medications Medications (Trade) Dose Ordered Sig/Va Route PRN Reason Start Time Stop Time Status Last Admin Dose Admin Acetaminophen (Tylenol) 650 mg Q4H PRN ORAL FEVER 05/16/18 14:00 06/13/18 09:59 06/02/18 23:43 Baclofen (Lioresal) 10 mg EVERY 8 HOURS GT 05/20/18 14:00 06/13/18 12:59 06/08/18 05:47 Chlorhexidine Gluconate (Rebecca-Hex 2%) 1 applic DAILY@2000 TOPIC 05/16/18 20:00 06/13/18 19:59 06/07/18 20:54 Dextrose (Dextrose 50%) 25 ml STAT PRN IV Hypoglycemia 05/17/18 08:45 06/14/18 08:44 Dextrose (Dextrose 50%) 50 ml STAT PRN IV Hypoglycemia 05/17/18 08:45 06/14/18 08:44 Heparin Sodium (Porcine) (Heparin 5000 units/ml) 5,000 units EVERY 12 HOURS SUBQ 05/16/18 21:00 06/13/18 20:59 06/08/18 08:43 Insulin Aspart (NovoLOG) Q6HR SUBQ 05/16/18 18:00 06/14/18 11:29 06/08/18 05:48 Lansoprazole (Prevacid) 30 mg DAILY GT 05/17/18 09:00 06/15/18 08:59 06/08/18 08:41 Levetiracetam (Keppra) 1,000 mg Q8HR GT 05/16/18 14:00 06/13/18 12:59 06/08/18 05:47 Ondansetron HCl (Zofran) 4 mg Q6H PRN IVP Nausea & Vomiting 05/16/18 16:00 06/13/18 09:59 Polyethylene Glycol (Miralax) 17 gm BEDTIME GT 05/20/18 21:00 06/14/18 20:59 06/07/18 20:54 Vancomycin HCl (Vanco rx to dose) 1 ea DAILY PRN MISC PER RX PROTOCOL 05/18/18 13:15 06/17/18 13:14 Vancomycin HCl/ Dextrose 250 ml @ 125 mls/hr Q18H IVPB 05/29/18 21:00 07/03/18 22:00 06/07/18 20:54 Maribel Barrera M.D. Jun 08, 2018 12:32
--- NOTE | 2018-06-08 14:16 | General Progress Note ---
Assessment/Plan Status: unchanged Assessment/Plan # Leukocytosis - Sepsis with elevated temperature of 103 degrees Fahrenheit. Had uti v bacteremia (CoNS) on abx, has improved. --> Pt on antibiotics, has received a dose of Zosyn and currently is on vancomycin q.12 h. now on cefepime --> Appreciate Infectious Disease recs --> 2D echo per ID performed on 05/22: No discrete vegetations seen, however SBE may not be excluded by transthoracic 2-D echo. --> CURRENT WBC of 7.9, wnl --> Currently afebrile # Anemia of chronic disease. No hemolysis, peripheral smear reviewed, ferritin was elevated. --> Continue to closely monitor --> Hgb goal >7 --> CURRENT Hgb 12.8 # Acute kidney injury. --> Currently on IV fluids, IV bolus given to see if the patient responds along with IV pressor as needed. --> Closely monitor with Nephrology team. # Septic shock, use antibiotic per ID services. --> potential uti, on abx and bacteremia # Respiratory failure, status post tracheostomy, on mechanical ventilation per Dr. Goetz --> Remains on vent --> 06/03 CXR: Unchanged left pleural effusion versus scarring, over 4 days # Hypercalcemia. Monitor PTH and calcium level. The time the note was entered does not necessarily correspond to the time the patient was seen. Subjective Date patient seen: Jun 08, 2018 ROS Limited/Unobtainable: Yes Hematologic/Lymphatic: Reports: anemia Allergies: Coded Allergies: AZTREONAM (Verified Allergy, Unknown, 05/13/18) All Systems: reviewed and negative except above Subjective Pt remains obtunded and vented. No acute events. H/H stable. Objective Last 24 Hour Vital Signs Date Time Temp Pulse Resp B/P (MAP) Pulse Ox O2 Delivery O2 Flow Rate FiO2 06/08/18 12:00 77 06/08/18 12:00 98.7 81 16 124/87 (99) 98 98.7 06/08/18 12:00 Mechanical Ventilator 06/08/18 12:00 30 06/08/18 11:25 75 16 30 06/08/18 09:29 78 16 30 06/08/18 08:32 30 06/08/18 08:30 Mechanical Ventilator 06/08/18 08:24 98.4 76 18 128/78 (95) 99 98.4 06/08/18 08:00 75 06/08/18 06:35 74 16 30 06/08/18 05:00 79 16 30 06/08/18 04:00 72 06/08/18 04:00 30 06/08/18 04:00 99.3 72 16 122/83 (96) 99 99.3 06/08/18 04:00 Mechanical Ventilator 06/08/18 03:28 77 16 30 06/08/18 01:21 78 16 30 06/08/18 00:00 Mechanical Ventilator 06/08/18 00:00 99.4 79 17 124/84 (97) 98 99.4 06/08/18 00:00 80 06/08/18 00:00 30 06/07/18 23:29 81 16 30 06/07/18 20:35 82 16 30 06/07/18 20:00 86 06/07/18 20:00 98.4 75 16 124/82 (96) 99 98.4 06/07/18 20:00 Mechanical Ventilator 06/07/18 20:00 30 06/07/18 19:09 79 16 30 06/07/18 16:33 77 16 30 06/07/18 16:00 30 06/07/18 16:00 89 06/07/18 16:00 Mechanical Ventilator 06/07/18 16:00 98.8 79 18 132/88 (103) 99 98.8 06/07/18 15:00 80 17 30 Intake and Output 06/07/18 06/08/18 19:00 07:00 Intake Total 700 ml 950 ml Output Total 650 ml 775 ml Balance 50 ml 175 ml Free Water 80 ml IV Total 250 ml Tube Feeding 600 ml 600 ml Blood Product 20 ml Other 100 ml Output Urine Total 650 ml 300 ml Stool Total 475 ml Height (Feet): 6 Height (Inches): 0.00 Weight (Pounds): 191 General Appearance: no apparent distress EENT: PERRL/EOMI Neck: normal alignment Cardiovascular: normal peripheral pulses Respiratory/Chest: no respiratory distress Abdomen: soft Jimmy Fleming MD Jun 08, 2018 14:16
[2018-06-08] MEDS: Vancomycin 1.5 GM/D5W 250ML IVPB SCH (15:52)
[2018-06-08 16:22] VITALS: BP 121/79
[2018-06-08] MEDS ORDERED: NS 275ml ONE (17:16)
[2018-06-08 20:00] VITALS: BP 125/73
[2018-06-08] MEDS: Dyna-Hex 2% Top Sol 2oz TOPIC SCH (21:51)
[2018-06-08] MEDS: Miralax 17gm pkt GT SCH (21:51)
--- NOTE | 2018-06-08 23:30 | Progress Note ---
DATE: 06/08/2018 SUBJECTIVE: The patient is awake, alert, afebrile, and hemodynamically stable. PHYSICAL EXAMINATION: VITAL SIGNS: Blood pressure 121/ 79, his pulse is 86, respirations 16 and temperature 98.6 degrees. HEENT: Eyes were normal. ENT, mucous membranes were moist and intact. Oral cavity is open and tongue is protruded. NECK: Supple with no JVD without lymph nodes. Tracheostomy site is clean. LUNGS: Clear without rhonchi, rales, or wheezing. Secretions are small, thin, and whitish. HEART: Normal sounds with regular beats. No S3, S4, or pericardial rub. ABDOMEN: Soft and nontender with normal bowel sounds. Gastrostomy site is clean. EXTREMITIES: Warm without cyanosis, clubbing, or edema. LABORATORY AND DIAGNOSTIC DATA: No new laboratory data were available at the time of this dictation. IMPRESSION: 1. 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 2. The patient has seizure disorder. No evidence of seizure. Continue with levetiracetam 1000 mg q.12 h. 3. The patient with respiratory failure. We will continue with the same setting with him. Continue with albuterol sulfate, ipratropium bromide inhalation therapy every 6 hours. 4. The patient has tracheostomy. Continue to monitor O2 saturation and bronchial secretion. 5. The patient has gastrostomy feeding. There is no gastric residual. Continue with . The patient is on vancomycin 1 g IV piggyback q.8 h. Repeat laboratory tests will be done in the morning. Sariah Bhat M.D. DR: ELISSA JOB#: [id number] CC:
[2018-06-09] VITALS: BP 113/79
[2018-06-09 04:00] VITALS: BP 124/87
[2018-06-09] MEDS: NovoLOG Insulin Flexpen SUBQ SCH ×4 (06:00→23:22)
[2018-06-09] MEDS: levETIRAcetam 500mg/5ml Liquid GT SCH ×3 (06:26→21:25)
[2018-06-09 08:00] VITALS: BP 131/88
[2018-06-09 08:00] LABS: BASOPHILS % (AUTO) 0.9 % (0.0-2.0); EOSINOPHILS % (AUTO) 13.4 % (0.0-3.0); HEMATOCRIT 39.3 % (42.0-52.0); HEMOGLOBIN 12.7 G/DL (14.2-18.0); LYMPHOCYTES % (AUTO) 24.3 % (20.0-45.0); MEAN CORPUSCULAR VOLUME 88 FL (80-99); MONOCYTES % (AUTO) 9.6 % (1.0-10.0); NEUTROPHILS % (AUTO) 51.9 % (45.0-75.0); PLATELET COUNT 311 K/UL (150-450); RED BLOOD COUNT 4.49 M/UL (4.70-6.10); RED CELL DISTRIBUTION WIDTH 14.8 % (11.6-14.8); WHITE BLOOD COUNT 7.6 K/UL (4.8-10.8)
[2018-06-09 08:09] LABS: ANION GAP 14 mmol/L (5-15); BLOOD UREA NITROGEN 18 mg/dL (7-18); CALCIUM 10.4 MG/DL (8.5-10.1); CARBON DIOXIDE 20 MMOL/L (21-32); CHLORIDE 102 MMOL/L (98-107); POTASSIUM 3.9 MMOL/L (3.5-5.1); SODIUM 136 MMOL/L (136-145)
--- NOTE | 2018-06-09 08:18 | General Progress Note ---
Assessment/Plan Problem List: (1) Parastomal hernia ICD Codes: K43.5 - Parastomal hernia without obstruction or gangrene SNOMED: 913985682 Qualifiers: Qualified Codes: K43.5 - Parastomal hernia without obstruction or gangrene (2) Stoma malfunction SNOMED: 110309069 (3) Gastrostomy tube dependent ICD Codes: Z93.1 - Gastrostomy status SNOMED: 025593968, 852379888 (4) Colostomy in place ICD Codes: Z93.3 - Colostomy status SNOMED: 570699368, 394830378 (5) Diabetes mellitus ICD Codes: E11.9 - Type 2 diabetes mellitus without complications SNOMED: 03828791 Assessment/Plan parastomal >> no s/sx of infection. no obstruction. anemia work up reviewed >> iron deficiency G tube dependent hepatitis panel negative OB negative supportive care monitor H&H, prn transfusions venofer ppi GTFs per RD, adv to goal GT site care daily/prn abx bowel regime fu labs dc planning Subjective ROS Limited/Unobtainable: No Allergies: Coded Allergies: AZTREONAM (Verified Allergy, Unknown, 05/13/18) Objective Last 24 Hour Vital Signs Date Time Temp Pulse Resp B/P (MAP) Pulse Ox O2 Delivery O2 Flow Rate FiO2 06/09/18 08:00 97.2 71 17 131/88 (102) 100 97.2 06/09/18 08:00 30 06/09/18 08:00 Mechanical Ventilator 06/09/18 04:55 73 16 30 06/09/18 04:00 97.7 77 20 124/87 (99) 100 97.7 06/09/18 04:00 Mechanical Ventilator 06/09/18 04:00 78 06/09/18 04:00 30 06/09/18 03:05 72 16 30 06/09/18 01:24 76 16 30 06/09/18 00:00 Mechanical Ventilator 06/09/18 00:00 98.1 93 18 113/79 (90) 100 98.1 06/09/18 00:00 72 06/08/18 22:34 76 17 30 06/08/18 20:51 77 16 30 06/08/18 20:00 Mechanical Ventilator 06/08/18 20:00 98.1 73 19 125/73 (90) 99 98.1 06/08/18 20:00 77 06/08/18 20:00 30 06/08/18 19:24 74 16 30 06/08/18 17:11 76 16 30 06/08/18 16:22 98.6 86 18 121/79 (93) 98 98.6 06/08/18 16:00 Mechanical Ventilator 06/08/18 16:00 88 06/08/18 16:00 30 06/08/18 14:36 78 16 30 06/08/18 12:34 77 16 30 06/08/18 12:00 77 06/08/18 12:00 98.7 81 16 124/87 (99) 98 98.7 06/08/18 12:00 Mechanical Ventilator 06/08/18 12:00 30 06/08/18 11:25 75 16 30 06/08/18 09:29 78 16 30 06/08/18 08:32 30 06/08/18 08:30 Mechanical Ventilator 06/08/18 08:24 98.4 76 18 128/78 (95) 99 98.4 Intake and Output 06/08/18 06/09/18 19:00 07:00 Intake Total 890 ml 660 ml Output Total 650 ml 550 ml Balance 240 ml 110 ml Free Water 90 ml 110 ml IV Total 250 ml Tube Feeding 550 ml 550 ml Output Urine Total 400 ml 200 ml Stool Total 250 ml 350 ml # Bowel Movements 2 Laboratory Tests 06/09/18 07:40: White Blood Count 7.6, Red Blood Count 4.49L, Hemoglobin 12.7L, Hematocrit 39.3L , Mean Corpuscular Volume 88, Mean Corpuscular Hemoglobin 28.3, Mean Corpuscular Hemoglobin Concent 32.3, Red Cell Distribution Width 14.8, Platelet Count 311, Mean Platelet Volume 7.3, Neutrophils (%) (Auto) 51.9, Lymphocytes (% ) (Auto) 24.3, Monocytes (%) (Auto) 9.6, Eosinophils (%) (Auto) 13.4H, Basophils (%) (Auto) 0.9, Sodium Level 136, Potassium Level 3.9, Chloride Level 102, Carbon Dioxide Level 20L, Anion Gap 14, Blood Urea Nitrogen 18, Creatinine 1.0, Estimat Glomerular Filtration Rate > 60, Glucose Level 117H, Calcium Level 10.4H Height (Feet): 6 Height (Inches): 0.00 Weight (Pounds): 193 General Appearance: no apparent distress EENT: normal ENT inspection Neck: supple Cardiovascular: normal rate Respiratory/Chest: decreased breath sounds Abdomen: normal bowel sounds, non tender, soft Extremities: non-tender Dae Prater MD Jun 09, 2018 08:18
[2018-06-09] MEDS: Vancomycin 1.5gm/D5W 250ml 250 ML IVPB SCH (08:23)
[2018-06-09] MEDS: Heparin 5000 units/ml inj SUBQ SCH ×2 (08:25→21:26)
[2018-06-09 12:00] VITALS: BP 117/81
--- NOTE | 2018-06-09 15:06 | Cardiology Progress Note ---
Assessment/Plan Status: stable Assessment/Plan Assessment: (1) Acute on chronic respiratory failure (2) Acute on chronic renal insufficiency (3) Severe sepsis (4) Vegetative state (5) Colostomy in place (6) Diabetes mellitus Plan: Continue antibiotics Echocardiogram reviewed- no endocarditis, JOE unable to be performed Patient afebrile, normal WBC otherwise Continue trach care and tube feeds Continue keppra for seizures Continue abx treatment for six weeks via PICC line until 07/06 Dispo planning Subjective Cardiovascular: Reports: no symptoms Respiratory: Reports: no symptoms Gastrointestinal/Abdominal: Reports: no symptoms Genitourinary: Reports: no symptoms Subjective Afebrile vitals stable, Telemetry shows sinus rhythm. No acute events. Left pleural effusion unchanged. Ventilator settings: portex 7, AC 16, TV: 600, FiO2: 30%, PEEP: 5. GT is in place running glucerna 1.2 @ 65 ml/hr. No residual present. Colostomy bag in place. JOE not completed, probe unable to be passed. Patient should be treated for total six weeks abx for presumptive endocarditis at this juncture. Hyponatremia resolved, DIVYA resolved, patient stable . Objective Last 24 Hour Vital Signs Date Time Temp Pulse Resp B/P (MAP) Pulse Ox O2 Delivery O2 Flow Rate FiO2 06/09/18 12:36 79 16 30 06/09/18 12:00 Mechanical Ventilator 06/09/18 12:00 30 06/09/18 12:00 97.3 76 16 117/81 (93) 100 97.3 06/09/18 12:00 78 06/09/18 10:40 74 16 30 06/09/18 08:44 80 17 30 06/09/18 08:00 85 06/09/18 08:00 97.2 71 17 131/88 (102) 100 97.2 06/09/18 08:00 30 06/09/18 08:00 Mechanical Ventilator 06/09/18 06:54 72 15 30 06/09/18 04:55 73 16 30 06/09/18 04:00 97.7 77 20 124/87 (99) 100 97.7 06/09/18 04:00 Mechanical Ventilator 06/09/18 04:00 78 06/09/18 04:00 30 06/09/18 03:05 72 16 30 06/09/18 01:24 76 16 30 06/09/18 00:00 Mechanical Ventilator 06/09/18 00:00 98.1 93 18 113/79 (90) 100 98.1 06/09/18 00:00 72 06/08/18 22:34 76 17 30 06/08/18 20:51 77 16 30 06/08/18 20:00 Mechanical Ventilator 06/08/18 20:00 98.1 73 19 125/73 (90) 99 98.1 06/08/18 20:00 77 06/08/18 20:00 30 06/08/18 19:24 74 16 30 06/08/18 17:11 76 16 30 06/08/18 16:22 98.6 86 18 121/79 (93) 98 98.6 06/08/18 16:00 Mechanical Ventilator 06/08/18 16:00 88 06/08/18 16:00 30 General Appearance: no apparent distress, on vent EENT: PERRL/EOMI, normal ENT inspection Neck: non-tender, normal alignment, supple, normal inspection, no JVD Rhythm: NSR, PVCs Cardiovascular: normal rate, regular rhythm Respiratory/Chest: chest wall non-tender, lungs clear Abdomen: normal bowel sounds, non tender Extremities: normal range of motion, non-tender Neurologic: technologist development II-XII grossly normal Intake and Output 06/08/18 06/09/18 19:00 07:00 Intake Total 890 ml 660 ml Output Total 650 ml 550 ml Balance 240 ml 110 ml Free Water 90 ml 110 ml IV Total 250 ml Tube Feeding 550 ml 550 ml Output Urine Total 400 ml 200 ml Stool Total 250 ml 350 ml # Bowel Movements 2 Laboratory Tests Test 06/09/18 07:40 White Blood Count 7.6 K/UL (4.8-10.8) Red Blood Count 4.49 M/UL (4.70-6.10) L Hemoglobin 12.7 G/DL (14.2-18.0) L Hematocrit 39.3 % (42.0-52.0) L Mean Corpuscular Volume 88 FL (80-99) Mean Corpuscular Hemoglobin 28.3 PG (27.0-31.0) Mean Corpuscular Hemoglobin Concent 32.3 G/DL (32.0-36.0) Red Cell Distribution Width 14.8 % (11.6-14.8) Platelet Count 311 K/UL (150-450) Mean Platelet Volume 7.3 FL (6.5-10.1) Neutrophils (%) (Auto) 51.9 % (45.0-75.0) Lymphocytes (%) (Auto) 24.3 % (20.0-45.0) Monocytes (%) (Auto) 9.6 % (1.0-10.0) Eosinophils (%) (Auto) 13.4 % (0.0-3.0) H Basophils (%) (Auto) 0.9 % (0.0-2.0) Sodium Level 136 MMOL/L (136-145) Potassium Level 3.9 MMOL/L (3.5-5.1) Chloride Level 102 MMOL/L (98-107) Carbon Dioxide Level 20 MMOL/L (21-32) L Anion Gap 14 mmol/L (5-15) Blood Urea Nitrogen 18 mg/dL (7-18) Creatinine 1.0 MG/DL (0.55-1.30) Estimat Glomerular Filtration Rate > 60 mL/min (>60) Glucose Level 117 MG/DL (74-106) H Calcium Level 10.4 MG/DL (8.5-10.1) H Kali Owens M.D. Jun 09, 2018 15:06
[2018-06-09 16:19] VITALS: BP 120/84
[2018-06-09 20:00] VITALS: BP 118/86
[2018-06-09] MEDS: Dyna-Hex 2% Top Sol 2oz TOPIC SCH (21:24)
[2018-06-09] MEDS: Miralax 17gm pkt GT SCH (21:25)
[2018-06-10] VITALS: BP 126/68
--- NOTE | 2018-06-10 02:30 | Progress Note ---
DATE: 06/09/2018 SUBJECTIVE: The patient remained awake, alert, afebrile, and hemodynamically stable. PHYSICAL EXAMINATION: VITAL SIGNS: Blood pressure 126/66, his pulse is 88, respirations were 20, and temperature was 97.9. HEENT: Eyes were normal. ENT, mucous membranes were moist and intact. NECK: Supple with no JVD without lymph nodes. Tracheostomy site is clean. LUNGS: Clear without rhonchi, rales, or wheezing. Secretions are small, thin, and whitish. HEART: Normal sounds with regular beats. ABDOMEN: Soft and nontender with normal bowel sounds. Gastrostomy site is clean. EXTREMITIES: Warm without cyanosis, clubbing, or edema. LABORATORY AND DIAGNOSTIC DATA: Hemoglobin 12.7, hematocrit 39.3 with MCV of 88, WBC of 7.6, and platelets of 311. His BUN and creatinine are 16 and 1.0 respectively. Sodium is 136, potassium 3.5, chloride 102, and CO2 is 20. ____ imaging study was taken today. IMPRESSION: 1. The patient appeared to be in stable condition. He is status post cerebral hemorrhage with severe encephalopathy with [place] Coma Scale 3 to 6. 2. The patient is respirator dependent. We will continue with the same respiratory setting. Continue with albuterol sulfate and ipratropium bromide inhalation therapy every 6 hours. 3. The patient has tracheostomy. Continue to monitor O2 saturation and bronchial secretion. 4. The patient has gastrostomy feedings. There is no gastric residual. Continue with . Repeat laboratory tests will be done in the a.m. Sariah Bhat M.D. DR: MARIELLA JOB#: [id number] CC:
[2018-06-10] MEDS: Vancomycin 1.5gm/D5W 250ml 250 ML IVPB SCH (02:39)
[2018-06-10 04:00] VITALS: BP 128/97
[2018-06-10 04:55] LABS: BASOPHILS % (AUTO) 2.1 % (0.0-2.0); EOSINOPHILS % (AUTO) 11.7 % (0.0-3.0); HEMOGLOBIN 13.8 G/DL (14.2-18.0); MEAN CORPUSCULAR VOLUME 87 FL (80-99); MONOCYTES % (AUTO) 9.1 % (1.0-10.0); PLATELET COUNT 306 K/UL (150-450); RED BLOOD COUNT 4.95 M/UL (4.70-6.10); RED CELL DISTRIBUTION WIDTH 14.9 % (11.6-14.8)
[2018-06-10 05:01] LABS: ANION GAP 14 mmol/L (5-15); BLOOD UREA NITROGEN 17 mg/dL (7-18); CALCIUM 10.1 MG/DL (8.5-10.1); CARBON DIOXIDE 22 MMOL/L (21-32); CHLORIDE 101 MMOL/L (98-107); CREATININE 1.2 MG/DL (0.55-1.30); SODIUM 137 MMOL/L (136-145)
[2018-06-10] MEDS: levETIRAcetam 500mg/5ml Liquid GT SCH ×3 (05:23→21:43)
[2018-06-10] MEDS: NovoLOG Insulin Flexpen SUBQ SCH ×3 (05:24→17:40)
[2018-06-10 08:00] VITALS: BP 134/81
[2018-06-10] MEDS: Heparin 5000 units/ml inj SUBQ SCH ×2 (09:17→20:09)
--- NOTE | 2018-06-10 10:38 | Pulmonolgy Critical Care Note ---
Critical Care - Asmt/Plan Problems: (1) Acute on chronic respiratory failure (2) Acute on chronic renal insufficiency (3) Severe sepsis (4) Vegetative state (5) Colostomy in place (6) Diabetes mellitus Respiratory: monitor respiratory rate, adjust FIO2 Cardiac: continue to monitor HR/BP Renal: F/U I&O Infectious Disease: check cultures Gastrointestinal: continue feedings/current rate Endocrine: monitor blood sugar Hematologic: transfuse if hgb<8.5 Neurologic: PRN Ativan, keep patient comfortable Affect: PRN ativan Prophylaxis: Protonix Notes Reviewed: bowling pin refinisher, cardio Discussed with: nurses, consultants, clinical case managerservice manager - Objective Last 24 Hour Vital Signs Date Time Temp Pulse Resp B/P (MAP) Pulse Ox O2 Delivery O2 Flow Rate FiO2 06/10/18 08:51 86 18 30 06/10/18 08:00 95 06/10/18 08:00 Mechanical Ventilator 06/10/18 08:00 30 06/10/18 08:00 98.2 99 18 134/81 (98) 96 98.2 06/10/18 06:49 82 16 30 06/10/18 04:55 84 16 30 06/10/18 04:00 30 06/10/18 04:00 98.2 85 16 128/97 (107) 99 98.2 06/10/18 04:00 Mechanical Ventilator 06/10/18 03:59 96 06/10/18 03:09 80 16 30 06/10/18 00:40 84 20 30 06/10/18 00:00 97.9 92 18 126/68 (87) 99 97.9 06/10/18 00:00 30 06/10/18 00:00 Mechanical Ventilator 06/09/18 23:34 88 06/09/18 22:38 88 20 30 06/09/18 21:25 94 20 30 06/09/18 20:00 98.1 90 30 118/86 (97) 100 98.1 06/09/18 20:00 30 06/09/18 20:00 Mechanical Ventilator 06/09/18 19:40 92 06/09/18 18:44 95 22 30 06/09/18 16:52 93 22 30 06/09/18 16:20 82 06/09/18 16:19 98.4 84 18 120/84 (96) 100 98.4 06/09/18 16:00 30 06/09/18 16:00 Mechanical Ventilator 06/09/18 15:22 73 18 30 06/09/18 12:36 79 16 30 06/09/18 12:00 Mechanical Ventilator 06/09/18 12:00 30 06/09/18 12:00 97.3 76 16 117/81 (93) 100 97.3 06/09/18 12:00 78 06/09/18 10:40 74 16 30 Status: awake Condition: critical HEENT: atraumatic Neck: full ROM Lungs: chest wall tender Abdomen: soft, feeding tube Extremities: no C/C/E Accucheck: 121 Critical Care - Subjective ROS Limited/Unobtainable: Yes Condition: critical EKG Rhythm: Sinus Rhythm FI02: 30 Vent Support Breath Rate: 16 Vent Support Mode: AC Vent Tidal Volume: 600 Sputum Amount: Moderate PEEP: 5.0 PIP: 27 Tube Feeding Amount: 50 I&O: Intake and Output 06/09/18 06/10/18 19:00 07:00 Intake Total 940 ml 1080.0 ml Output Total 400 ml 725 ml Balance 540 ml 355.0 ml Free Water 30 ml 60 ml IV Total 250 ml 250.0 ml Tube Feeding 600 ml 650 ml Other 60 ml 120 ml Output Urine Total 150 ml 350 ml Stool Total 250 ml 375 ml # Voids 1 Labs: Laboratory Tests Test 06/10/18 04:20 White Blood Count 9.0 K/UL (4.8-10.8) Red Blood Count 4.95 M/UL (4.70-6.10) Hemoglobin 13.8 G/DL (14.2-18.0) L Hematocrit 43.0 % (42.0-52.0) Mean Corpuscular Volume 87 FL (80-99) Mean Corpuscular Hemoglobin 28.0 PG (27.0-31.0) Mean Corpuscular Hemoglobin Concent 32.2 G/DL (32.0-36.0) Red Cell Distribution Width 14.9 % (11.6-14.8) H Platelet Count 306 K/UL (150-450) Mean Platelet Volume 7.5 FL (6.5-10.1) Neutrophils (%) (Auto) 53.0 % (45.0-75.0) Lymphocytes (%) (Auto) 24.0 % (20.0-45.0) Monocytes (%) (Auto) 9.1 % (1.0-10.0) Eosinophils (%) (Auto) 11.7 % (0.0-3.0) H Basophils (%) (Auto) 2.1 % (0.0-2.0) H Sodium Level 137 MMOL/L (136-145) Potassium Level 4.0 MMOL/L (3.5-5.1) Chloride Level 101 MMOL/L (98-107) Carbon Dioxide Level 22 MMOL/L (21-32) Anion Gap 14 mmol/L (5-15) Blood Urea Nitrogen 17 mg/dL (7-18) Creatinine 1.2 MG/DL (0.55-1.30) Estimat Glomerular Filtration Rate > 60 mL/min (>60) Glucose Level 132 MG/DL (74-106) H Calcium Level 10.1 MG/DL (8.5-10.1) Nico Goetz MD Jun 10, 2018 10:38
--- NOTE | 2018-06-10 10:49 | GI Progress Note ---
Assessment/Plan Problems: (1) Parastomal hernia ICD Codes: K43.5 - Parastomal hernia without obstruction or gangrene SNOMED: 318490992 Qualifiers: Qualified Codes: K43.5 - Parastomal hernia without obstruction or gangrene (2) Stoma malfunction SNOMED: 214262709 (3) Colostomy in place ICD Codes: Z93.3 - Colostomy status SNOMED: 198657676, 349092480 (4) Vegetative state ICD Codes: R40.3 - Persistent vegetative state SNOMED: 05047892 (5) Diabetes mellitus ICD Codes: E11.9 - Type 2 diabetes mellitus without complications SNOMED: 22750624 (6) Acute on chronic respiratory failure ICD Codes: J96.20 - Acute and chronic respiratory failure, unspecified whether with hypoxia or hypercapnia SNOMED: 08047695 (7) Severe sepsis ICD Codes: A41.9 - Sepsis, unspecified organism; R65.20 - Severe sepsis without septic shock SNOMED: 98519190 Status: stable Status Narrative Discussed with Dr. Prater. Assessment/Plan parastomal >> no s/sx of infection. no obstruction. anemia work up reviewed >> iron deficiency G tube dependent hepatitis panel negative OB negative supportive care monitor H&H, prn transfusions venofer ppi GTFs per RD, adv to goal GT site care daily/prn abx bowel regime fu labs dc planning The patient was seen and examined at bedside and all new and available data was reviewed in the patients chart. I agree with the above findings, impression and plan. (Patient seen earlier today. Signature stamp does not reflect patient encounter time.). - Dae Prater MD Subjective Subjective limited Objective Last 24 Hour Vital Signs Date Time Temp Pulse Resp B/P (MAP) Pulse Ox O2 Delivery O2 Flow Rate FiO2 06/10/18 08:51 86 18 30 06/10/18 08:00 95 06/10/18 08:00 Mechanical Ventilator 06/10/18 08:00 30 06/10/18 08:00 98.2 99 18 134/81 (98) 96 98.2 06/10/18 06:49 82 16 30 06/10/18 04:55 84 16 30 06/10/18 04:00 30 06/10/18 04:00 98.2 85 16 128/97 (107) 99 98.2 06/10/18 04:00 Mechanical Ventilator 06/10/18 03:59 96 06/10/18 03:09 80 16 30 06/10/18 00:40 84 20 30 06/10/18 00:00 97.9 92 18 126/68 (87) 99 97.9 06/10/18 00:00 30 06/10/18 00:00 Mechanical Ventilator 06/09/18 23:34 88 06/09/18 22:38 88 20 30 06/09/18 21:25 94 20 30 06/09/18 20:00 98.1 90 30 118/86 (97) 100 98.1 06/09/18 20:00 30 06/09/18 20:00 Mechanical Ventilator 06/09/18 19:40 92 06/09/18 18:44 95 22 30 06/09/18 16:52 93 22 30 06/09/18 16:20 82 06/09/18 16:19 98.4 84 18 120/84 (96) 100 98.4 06/09/18 16:00 30 06/09/18 16:00 Mechanical Ventilator 06/09/18 15:22 73 18 30 06/09/18 12:36 79 16 30 06/09/18 12:00 Mechanical Ventilator 06/09/18 12:00 30 06/09/18 12:00 97.3 76 16 117/81 (93) 100 97.3 06/09/18 12:00 78 Intake and Output 06/09/18 06/10/18 18:59 06:59 Intake Total 940 ml 1080.0 ml Output Total 400 ml 725 ml Balance 540 ml 355.0 ml Free Water 30 ml 60 ml IV Total 250 ml 250.0 ml Tube Feeding 600 ml 650 ml Other 60 ml 120 ml Output Urine Total 150 ml 350 ml Stool Total 250 ml 375 ml # Voids 1 Laboratory Tests Test 06/10/18 04:20 White Blood Count 9.0 K/UL (4.8-10.8) Red Blood Count 4.95 M/UL (4.70-6.10) Hemoglobin 13.8 G/DL (14.2-18.0) L Hematocrit 43.0 % (42.0-52.0) Mean Corpuscular Volume 87 FL (80-99) Mean Corpuscular Hemoglobin 28.0 PG (27.0-31.0) Mean Corpuscular Hemoglobin Concent 32.2 G/DL (32.0-36.0) Red Cell Distribution Width 14.9 % (11.6-14.8) H Platelet Count 306 K/UL (150-450) Mean Platelet Volume 7.5 FL (6.5-10.1) Neutrophils (%) (Auto) 53.0 % (45.0-75.0) Lymphocytes (%) (Auto) 24.0 % (20.0-45.0) Monocytes (%) (Auto) 9.1 % (1.0-10.0) Eosinophils (%) (Auto) 11.7 % (0.0-3.0) H Basophils (%) (Auto) 2.1 % (0.0-2.0) H Sodium Level 137 MMOL/L (136-145) Potassium Level 4.0 MMOL/L (3.5-5.1) Chloride Level 101 MMOL/L (98-107) Carbon Dioxide Level 22 MMOL/L (21-32) Anion Gap 14 mmol/L (5-15) Blood Urea Nitrogen 17 mg/dL (7-18) Creatinine 1.2 MG/DL (0.55-1.30) Estimat Glomerular Filtration Rate > 60 mL/min (>60) Glucose Level 132 MG/DL (74-106) H Calcium Level 10.1 MG/DL (8.5-10.1) Height (Feet): 6 Height (Inches): 0.00 Weight (Pounds): 195 General Appearance: WD/WN, no apparent distress, alert Cardiovascular: normal rate Respiratory/Chest: normal breath sounds, no respiratory distress Abdominal Exam: normal bowel sounds, non tender, soft, GT site - c/d/i, other - ostomy Extremities: non-tender Boyd Emmanuel NP Jun 10, 2018 10:49
--- NOTE | 2018-06-10 11:53 | Cardiology Progress Note ---
Assessment/Plan Status: stable Assessment/Plan Assessment: (1) Acute on chronic respiratory failure (2) Acute on chronic renal insufficiency (3) Severe sepsis (4) Vegetative state (5) Colostomy in place (6) Diabetes mellitus Plan: Continue antibiotics Echocardiogram reviewed- no endocarditis, JOE unable to be performed Patient afebrile, normal WBC otherwise Continue trach care and tube feeds Continue keppra for seizures Continue abx treatment for six weeks via PICC line until 07/06 Dispo planning Subjective Cardiovascular: Reports: no symptoms Respiratory: Reports: no symptoms Gastrointestinal/Abdominal: Reports: no symptoms Genitourinary: Reports: no symptoms Subjective Afebrile vitals stable, Telemetry shows sinus rhythm. No acute events. Left pleural effusion unchanged. Ventilator settings: portex 7, AC 16, TV: 600, FiO2: 30%, PEEP: 5. GT is in place running glucerna 1.2 @ 65 ml/hr. No residual present. Colostomy bag in place. JOE not completed, probe unable to be passed. Patient should be treated for total six weeks abx for presumptive endocarditis at this juncture. Hyponatremia resolved, DIVYA resolved, patient stable . Objective Last 24 Hour Vital Signs Date Time Temp Pulse Resp B/P (MAP) Pulse Ox O2 Delivery O2 Flow Rate FiO2 06/10/18 10:53 81 20 30 06/10/18 08:51 86 18 30 06/10/18 08:00 95 06/10/18 08:00 Mechanical Ventilator 06/10/18 08:00 30 06/10/18 08:00 98.2 99 18 134/81 (98) 96 98.2 06/10/18 06:49 82 16 30 06/10/18 04:55 84 16 30 06/10/18 04:00 30 06/10/18 04:00 98.2 85 16 128/97 (107) 99 98.2 06/10/18 04:00 Mechanical Ventilator 06/10/18 03:59 96 06/10/18 03:09 80 16 30 06/10/18 00:40 84 20 30 06/10/18 00:00 97.9 92 18 126/68 (87) 99 97.9 06/10/18 00:00 30 06/10/18 00:00 Mechanical Ventilator 06/09/18 23:34 88 06/09/18 22:38 88 20 30 06/09/18 21:25 94 20 30 06/09/18 20:00 98.1 90 30 118/86 (97) 100 98.1 06/09/18 20:00 30 06/09/18 20:00 Mechanical Ventilator 06/09/18 19:40 92 06/09/18 18:44 95 22 30 06/09/18 16:52 93 22 30 06/09/18 16:20 82 06/09/18 16:19 98.4 84 18 120/84 (96) 100 98.4 06/09/18 16:00 30 06/09/18 16:00 Mechanical Ventilator 06/09/18 15:22 73 18 30 06/09/18 12:36 79 16 30 06/09/18 12:00 Mechanical Ventilator 06/09/18 12:00 30 06/09/18 12:00 97.3 76 16 117/81 (93) 100 97.3 06/09/18 12:00 78 General Appearance: no apparent distress, on vent EENT: normal ENT inspection Neck: non-tender, normal alignment Rhythm: NSR Cardiovascular: normal peripheral pulses, normal rate, regular rhythm Respiratory/Chest: chest wall non-tender, lungs clear Abdomen: normal bowel sounds, non tender Extremities: normal range of motion, non-tender 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 Intake and Output 06/09/18 06/10/18 19:00 07:00 Intake Total 940 ml 1080.0 ml Output Total 400 ml 725 ml Balance 540 ml 355.0 ml Free Water 30 ml 60 ml IV Total 250 ml 250.0 ml Tube Feeding 600 ml 650 ml Other 60 ml 120 ml Output Urine Total 150 ml 350 ml Stool Total 250 ml 375 ml # Voids 1 Laboratory Tests Test 06/10/18 04:20 White Blood Count 9.0 K/UL (4.8-10.8) Red Blood Count 4.95 M/UL (4.70-6.10) Hemoglobin 13.8 G/DL (14.2-18.0) L Hematocrit 43.0 % (42.0-52.0) Mean Corpuscular Volume 87 FL (80-99) Mean Corpuscular Hemoglobin 28.0 PG (27.0-31.0) Mean Corpuscular Hemoglobin Concent 32.2 G/DL (32.0-36.0) Red Cell Distribution Width 14.9 % (11.6-14.8) H Platelet Count 306 K/UL (150-450) Mean Platelet Volume 7.5 FL (6.5-10.1) Neutrophils (%) (Auto) 53.0 % (45.0-75.0) Lymphocytes (%) (Auto) 24.0 % (20.0-45.0) Monocytes (%) (Auto) 9.1 % (1.0-10.0) Eosinophils (%) (Auto) 11.7 % (0.0-3.0) H Basophils (%) (Auto) 2.1 % (0.0-2.0) H Sodium Level 137 MMOL/L (136-145) Potassium Level 4.0 MMOL/L (3.5-5.1) Chloride Level 101 MMOL/L (98-107) Carbon Dioxide Level 22 MMOL/L (21-32) Anion Gap 14 mmol/L (5-15) Blood Urea Nitrogen 17 mg/dL (7-18) Creatinine 1.2 MG/DL (0.55-1.30) Estimat Glomerular Filtration Rate > 60 mL/min (>60) Glucose Level 132 MG/DL (74-106) H Calcium Level 10.1 MG/DL (8.5-10.1) Kali Owens M.D. Jun 10, 2018 11:53
[2018-06-10 12:00] VITALS: BP 125/93
--- NOTE | 2018-06-10 13:03 | Infectious Diseases Prog Note ---
Assessment/Plan Assessment/Plan Assessment/Plan Sepsis, SP- 2ry to UTI and Bacteremia Blood cultures postive 01/23 bottles with GPC Unclear source will need to R/O Endocarditis Possible PNA initially -u/a wbc 40-60, nit neg, leuk +2; ucx >100k E. aerogenes (S cefepime, cipro/ levo; R Zosyn) -BCX 01/23 E. aerogenes, prob Amp C (S cefepime, cipro/levo; R Zosyn), P. mirabilis ESBL (S Zosyn, Ertapenem); repeta 05/16 10/25 CoNS (suspect contaminant) , 05/18 Staph f/u final results if CoNS may need TTE and IE work up. -CXR 05/17: Increased left pleural effusion, over 3 days. Overall decreased interstitial congestion. Right infrahilar atelectasis -CXR: Cardiomegaly. Mild interstitial congestion. Suspect small bilateral pleural effusions -CT abd/p: Right lower quadrant double barrel colostomy, as described. Small peristomal hernia contains bowel loops without evidence of obstruction or strangulation. Left renal staghorn calculus. Bilateral intrarenal calyceal calculi. Borderline hydronephrosis on the right without evidence of downstream obstructive lesion. May indicate mild ureteral pelvic junction obstruction. Somewhat atrophic left kidney. Inspissated contrast ball within the distal sigmoid colon. Gastrostomy in good position. Nonspecific bilateral perinephric fat stranding, could indicate pyelonephritis or could be chronic. Newberry catheter in place. Apparent bladder wall thickening, possibly an artifact of under distention but cystitis is not excludable, particularly in view of mild perivesical fat stranding. Bilateral pulmonary parenchymal atelectasis and consolidation -Blood Cx from PICC CoNS 2/2 bottles Peripheral Neg- (May be contaminant but will repeat blood Cx given new leukocytosis if positive will need ECHO. - Blood Cx 05/20/18 - GPC - Will need TTE for IE work up and the PICC removed. PICC line infection/colonization - TTE negative. Blood cultures only positive from PICC. Not positive from Peripheral - Will repeat blood cultures x 1 to confirm clearance after PICC replaced. Los suspicion for IE. - PICC replace 05/22/18 Fever/Leukocytosis; Resolved - i recurs Re-evaluate lines, Diarrhea? C. dif? DIVYA, improving Lactic acidosis, resolved chronic resp failure trach/vent dependant BPH GERD HTN DM2 seizure disorder colostomy s/p GT constipation VRE and MRSA colonized Plan: - Continue empiric IV Vancomycin # for bacteremia/line infection cant r/o Endocarditis -Abx end date 07/03/18 if JOE attempted again and negative then ed date would be 06/05/18 -weekly CBC, BMP, vanco through -05/30 SP Ertapenem #14 -05/17 SP Zosyn #4 JOE could not be performed due to technical problems - Unable to repeat JOE so patient should be treated for presumed endocarditis for 6 weeks - Monitor CBC/CMP, temperatures - Pulmonary care Thank you for this consultation. Will continue to follow along with you. Subjective Allergies: Coded Allergies: AZTREONAM (Verified Allergy, Unknown, 05/13/18) Subjective afebrile no leukocytosis Objective Vital Signs Last 24 Hour Vital Signs Date Time Temp Pulse Resp B/P (MAP) Pulse Ox O2 Delivery O2 Flow Rate FiO2 06/10/18 12:31 91 16 30 06/10/18 12:00 97.7 99 18 125/93 (104) 99 97.7 06/10/18 12:00 30 06/10/18 12:00 Mechanical Ventilator 06/10/18 10:53 81 20 30 06/10/18 08:51 86 18 30 06/10/18 08:00 95 06/10/18 08:00 Mechanical Ventilator 06/10/18 08:00 30 06/10/18 08:00 98.2 99 18 134/81 (98) 96 98.2 06/10/18 06:49 82 16 30 06/10/18 04:55 84 16 30 06/10/18 04:00 30 06/10/18 04:00 98.2 85 16 128/97 (107) 99 98.2 06/10/18 04:00 Mechanical Ventilator 06/10/18 03:59 96 06/10/18 03:09 80 16 30 06/10/18 00:40 84 20 30 06/10/18 00:00 97.9 92 18 126/68 (87) 99 97.9 06/10/18 00:00 30 06/10/18 00:00 Mechanical Ventilator 06/09/18 23:34 88 06/09/18 22:38 88 20 30 8/19/18 21:25 94 20 30 06/09/18 20:00 98.1 90 30 118/86 (97) 100 98.1 06/09/18 20:00 30 06/09/18 20:00 Mechanical Ventilator 06/09/18 19:40 92 06/09/18 18:44 95 22 30 06/09/18 16:52 93 22 30 06/09/18 16:20 82 06/09/18 16:19 98.4 84 18 120/84 (96) 100 98.4 06/09/18 16:00 30 06/09/18 16:00 Mechanical Ventilator 06/09/18 15:22 73 18 30 Height (Feet): 6 Height (Inches): 0.00 Weight (Pounds): 195 Objective GENERAL: The patient is awake, in no overt distress. HEENT: Extraocular muscles intact. No lymphadenopathy noted. Tracheostomy noted. CARDIOVASCULAR: S1 and S2. Tachycardic. No rubs or gallops. PULMONARY: Mild diffuse expiratory rhonchi with basilar rales. ABDOMEN: Obese and nondistended. The G-tube and stoma noted. EXTREMITIES: No edema. Fair pedal pulses. Laboratory Tests Test 06/10/18 04:20 White Blood Count 9.0 K/UL (4.8-10.8) Red Blood Count 4.95 M/UL (4.70-6.10) Hemoglobin 13.8 G/DL (14.2-18.0) L Hematocrit 43.0 % (42.0-52.0) Mean Corpuscular Volume 87 FL (80-99) Mean Corpuscular Hemoglobin 28.0 PG (27.0-31.0) Mean Corpuscular Hemoglobin Concent 32.2 G/DL (32.0-36.0) Red Cell Distribution Width 14.9 % (11.6-14.8) H Platelet Count 306 K/UL (150-450) Mean Platelet Volume 7.5 FL (6.5-10.1) Neutrophils (%) (Auto) 53.0 % (45.0-75.0) Lymphocytes (%) (Auto) 24.0 % (20.0-45.0) Monocytes (%) (Auto) 9.1 % (1.0-10.0) Eosinophils (%) (Auto) 11.7 % (0.0-3.0) H Basophils (%) (Auto) 2.1 % (0.0-2.0) H Sodium Level 137 MMOL/L (136-145) Potassium Level 4.0 MMOL/L (3.5-5.1) Chloride Level 101 MMOL/L (98-107) Carbon Dioxide Level 22 MMOL/L (21-32) Anion Gap 14 mmol/L (5-15) Blood Urea Nitrogen 17 mg/dL (7-18) Creatinine 1.2 MG/DL (0.55-1.30) Estimat Glomerular Filtration Rate > 60 mL/min (>60) Glucose Level 132 MG/DL (74-106) H Calcium Level 10.1 MG/DL (8.5-10.1) Current Medications Medications (Trade) Dose Ordered Sig/Va Route PRN Reason Start Time Stop Time Status Last Admin Dose Admin Acetaminophen (Tylenol) 650 mg Q4H PRN ORAL FEVER 06/08/18 21:00 07/06/18 20:59 Baclofen (Lioresal) 10 mg EVERY 8 HOURS GT 06/08/18 22:00 07/02/18 20:59 06/10/18 05:23 Chlorhexidine Gluconate (Rebecca-Hex 2%) 1 applic DAILY@1999 TOPIC 06/08/18 22:00 07/08/18 21:59 06/09/18 21:24 Dextrose (Dextrose 50%) 25 ml STAT PRN IV Hypoglycemia 06/08/18 21:45 07/06/18 21:44 Dextrose (Dextrose 50%) 50 ml STAT PRN IV Hypoglycemia 06/08/18 21:45 07/06/18 21:44 Heparin Sodium (Porcine) (Heparin 5000 units/ml) 5,000 units EVERY 12 HOURS SUBQ 06/08/18 22:00 07/08/18 21:59 06/10/18 09:17 Insulin Aspart (NovoLOG) Q6HR SUBQ 06/09/18 00:00 07/07/18 17:29 06/10/18 11:50 Lansoprazole (Prevacid) 30 mg DAILY GT 06/09/18 09:00 07/08/18 08:59 06/10/18 09:14 Levetiracetam (Keppra) 1,000 mg Q8HR GT 06/08/18 22:00 07/06/18 20:59 06/10/18 05:23 Ondansetron HCl (Zofran) 4 mg Q6H PRN IVP Nausea & Vomiting 06/08/18 22:00 07/06/18 15:59 Polyethylene Glycol (Miralax) 17 gm BEDTIME GT 06/08/18 22:00 07/08/18 21:59 06/09/18 21:25 Vancomycin HCl (Vanco rx to dose) 1 ea DAILY PRN MISC PER RX PROTOCOL 06/08/18 21:45 07/08/18 21:44 Vancomycin HCl/ Dextrose 250 ml @ 125 mls/hr Q18H IVPB 06/09/18 09:00 07/14/18 10:00 06/10/18 02:39 Maribel Barrera M.D. Jun 10, 2018 13:03
[2018-06-10 16:00] VITALS: BP 117/82
[2018-06-10 20:00] VITALS: BP 115/84
[2018-06-10] MEDS: Dyna-Hex 2% Top Sol 2oz TOPIC SCH (20:08)
[2018-06-10] MEDS: Miralax 17gm pkt GT SCH (20:09)
[2018-06-11] VITALS: BP 124/87
[2018-06-11] MEDS: NovoLOG Insulin Flexpen SUBQ SCH ×5 (00:26→23:50)
--- NOTE | 2018-06-11 00:45 | Progress Note ---
DATE: 06/10/2018 NOTE: POOR AUDIO SUBJECTIVE: The patient is afebrile, hemodynamically stable. Eyes are open, there is no eye contact. PHYSICAL EXAMINATION: VITAL SIGNS: Blood pressure 125/93, pulse was 81, respirations were 20, and temperature 97.7 degrees. HEENT: Eyes were normal. ENT, mucous membranes were moist and intact. NECK: Supple with no JVD without lymph nodes. Tracheostomy site is clean. LUNGS: Clear without rhonchi, rales, or wheezing. Secretions are small, thin, and whitish. HEART: Normal sounds with regular beats. There is no S3, S4, or pericardial rub. ABDOMEN: Soft and nontender with normal bowel sounds. Gastrostomy site is clean. EXTREMITIES: Warm without cyanosis, clubbing, or edema. LABORATORY AND DIAGNOSTIC DATA: Hemoglobin is 13.8, hematocrit 43.0 with MCV of 87, WBC of 9.0, and platelets of 306. BUN and creatinine are 17 and 1.2, respectively. His sodium is 137, potassium 4.0, chloride 101, and CO2 is 22. was negative 102. Repeat between 91 to . His calcium is 10.1. IMPRESSION AND PLAN: 1. The patient has anoxic encephalopathy. There are no cognitive changes. He is stable from neurological point of view. 2. The patient is respiratory dependent. Continue with the same respiratory setting. We will continue with albuterol sulfate, ipratropium bromide inhalation therapy every 6 hours. 3. The patient has tracheostomy. Continue to monitor oxygen saturation and bronchial secretion. 4. The patient has gastrostomy feeding. There is no gastric residual. Continue with Fibersource mL/hour. 5. The patient has seizure disorder seizure. Continue with levetiracetam 1000 mg b.i.d. 6. Repeat laboratory tests will be done in the morning. Sariah Bhat M.D. DR: ELISSA JOB#: [id number] CC:
[2018-06-11 04:00] VITALS: BP 129/83
[2018-06-11 04:48] LABS: BASOPHILS % (AUTO) 1.1 % (0.0-2.0); EOSINOPHILS % (AUTO) 9.4 % (0.0-3.0); HEMATOCRIT 43.1 % (42.0-52.0); HEMOGLOBIN 14.1 G/DL (14.2-18.0); LYMPHOCYTES % (AUTO) 25.8 % (20.0-45.0); MEAN CORPUSCULAR VOLUME 86 FL (80-99); NEUTROPHILS % (AUTO) 51.7 % (45.0-75.0); PLATELET COUNT 321 K/UL (150-450); RED BLOOD COUNT 5.01 M/UL (4.70-6.10); RED CELL DISTRIBUTION WIDTH 14.9 % (11.6-14.8); WHITE BLOOD COUNT 8.3 K/UL (4.8-10.8)
[2018-06-11] MEDS: levETIRAcetam 500mg/5ml Liquid GT SCH ×3 (05:06→21:34)
[2018-06-11 05:15] LABS: ANION GAP 14 mmol/L (5-15); BLOOD UREA NITROGEN 19 mg/dL (7-18); CALCIUM 10.3 MG/DL (8.5-10.1); CARBON DIOXIDE 23 MMOL/L (21-32); CHLORIDE 102 MMOL/L (98-107); CREATININE 1.1 MG/DL (0.55-1.30); POTASSIUM 4.3 MMOL/L (3.5-5.1); SODIUM 139 MMOL/L (136-145)
[2018-06-11] MEDS: Vancomycin 1.5gm/D5W 250ml 250 ML IVPB SCH (06:52)
[2018-06-11 08:00] VITALS: BP 108/80
[2018-06-11] MEDS: Heparin 5000 units/ml inj SUBQ SCH ×2 (09:08→21:34)
--- NOTE | 2018-06-11 11:22 | Pulmonolgy Critical Care Note ---
Critical Care - Asmt/Plan Problems: (1) Acute on chronic respiratory failure (2) Acute on chronic renal insufficiency (3) Severe sepsis (4) Vegetative state (5) Colostomy in place (6) Diabetes mellitus Respiratory: monitor respiratory rate, adjust FIO2, CXR Cardiac: continue to monitor HR/BP Renal: F/U I&O, check electrolytes Infectious Disease: check cultures Gastrointestinal: hold feedings Endocrine: monitor blood sugar, check HgA1C Hematologic: transfuse if hgb<8.5 Neurologic: PRN Morphine, keep patient comfortable Prophylaxis: Protonix, Heparin Notes Reviewed: renal Discussed with: nurses, consultants, 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 making 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 manager environmental planning - Objective Last 24 Hour Vital Signs Date Time Temp Pulse Resp B/P (MAP) Pulse Ox O2 Delivery O2 Flow Rate FiO2 06/11/18 10:48 77 16 30 06/11/18 09:26 83 16 30 06/11/18 08:00 85 06/11/18 08:00 97.3 79 18 108/80 (89) 100 97.3 06/11/18 08:00 30 06/11/18 08:00 Mechanical Ventilator 06/11/18 06:40 81 16 30 06/11/18 04:46 80 16 30 06/11/18 04:00 30 06/11/18 04:00 Mechanical Ventilator 06/11/18 04:00 86 06/11/18 04:00 98.1 78 16 129/83 (98) 100 98.1 06/11/18 03:12 78 16 30 06/11/18 01:11 84 17 30 06/11/18 00:00 86 06/11/18 00:00 Mechanical Ventilator 06/11/18 00:00 99.0 86 16 124/87 (99) 99 99.0 06/11/18 00:00 30 06/10/18 22:47 89 17 30 06/10/18 21:23 95 20 30 06/10/18 20:00 98.1 91 16 115/84 (94) 99 98.1 06/10/18 20:00 84 06/10/18 20:00 Mechanical Ventilator 06/10/18 20:00 30 06/10/18 18:30 88 16 30 06/10/18 17:24 85 16 30 06/10/18 16:00 Mechanical Ventilator 06/10/18 16:00 30 06/10/18 16:00 97.9 85 18 117/82 (94) 96 97.9 06/10/18 16:00 96 06/10/18 15:20 88 16 30 06/10/18 12:31 91 16 30 06/10/18 12:00 97.7 99 18 125/93 (104) 99 97.7 06/10/18 12:00 30 06/10/18 12:00 96 06/10/18 12:00 Mechanical Ventilator Status: awake Condition: grave Lungs: chest wall tender Heart: HR/BP unstable Abdomen: soft Extremities: no C/C/E Accucheck: 116 Critical Care - Subjective ROS Limited/Unobtainable: Yes FI02: 30 Vent Support Breath Rate: 16 Vent Support Mode: AC Vent Tidal Volume: 600 Sputum Amount: Moderate PEEP: 5.0 PIP: 30 Tube Feeding Amount: 50 I&O: Intake and Output 06/10/18 06/11/18 19:00 07:00 Intake Total 710 ml 650 ml Output Total 825 ml 700 ml Balance -115 ml -50 ml Free Water 60 ml 40 ml Tube Feeding 650 ml 550 ml Other 60 ml Output Urine Total 425 ml 350 ml Stool Total 400 ml 350 ml Labs: Laboratory Tests Test 06/10/18 20:20 06/11/18 04:00 Vancomycin Level Trough 23.6 ug/mL (5.0-12.0) H White Blood Count 8.3 K/UL (4.8-10.8) Red Blood Count 5.01 M/UL (4.70-6.10) Hemoglobin 14.1 G/DL (14.2-18.0) L Hematocrit 43.1 % (42.0-52.0) Mean Corpuscular Volume 86 FL (80-99) Mean Corpuscular Hemoglobin 28.1 PG (27.0-31.0) Mean Corpuscular Hemoglobin Concent 32.7 G/DL (32.0-36.0) Red Cell Distribution Width 14.9 % (11.6-14.8) H Platelet Count 321 K/UL (150-450) Mean Platelet Volume 7.5 FL (6.5-10.1) Neutrophils (%) (Auto) 51.7 % (45.0-75.0) Lymphocytes (%) (Auto) 25.8 % (20.0-45.0) Monocytes (%) (Auto) 12.0 % (1.0-10.0) H Eosinophils (%) (Auto) 9.4 % (0.0-3.0) H Basophils (%) (Auto) 1.1 % (0.0-2.0) Sodium Level 139 MMOL/L (136-145) Potassium Level 4.3 MMOL/L (3.5-5.1) Chloride Level 102 MMOL/L (98-107) Carbon Dioxide Level 23 MMOL/L (21-32) Anion Gap 14 mmol/L (5-15) Blood Urea Nitrogen 19 mg/dL (7-18) H Creatinine 1.1 MG/DL (0.55-1.30) Estimat Glomerular Filtration Rate > 60 mL/min (>60) Glucose Level 122 MG/DL (74-106) H Calcium Level 10.3 MG/DL (8.5-10.1) H Random Vancomycin Level 16.5 ug/mL Nico Goetz MD Jun 11, 2018 11:22
[2018-06-11 12:00] VITALS: BP 128/83
--- NOTE | 2018-06-11 12:19 | Infectious Diseases Prog Note ---
Assessment/Plan Assessment/Plan Assessment/Plan Sepsis, SP- 2ry to UTI and Bacteremia Blood cultures postive 01/23 bottles with GPC Unclear source will need to R/O Endocarditis Possible PNA initially -u/a wbc 40-60, nit neg, leuk +2; ucx >100k E. aerogenes (S cefepime, cipro/ levo; R Zosyn) -BCX 01/23 E. aerogenes, prob Amp C (S cefepime, cipro/levo; R Zosyn), P. mirabilis ESBL (S Zosyn, Ertapenem); repeta 05/16 10/25 CoNS (suspect contaminant) , 05/18 Staph f/u final results if CoNS may need TTE and IE work up. -CXR 05/17: Increased left pleural effusion, over 3 days. Overall decreased interstitial congestion. Right infrahilar atelectasis -CXR: Cardiomegaly. Mild interstitial congestion. Suspect small bilateral pleural effusions -CT abd/p: Right lower quadrant double barrel colostomy, as described. Small peristomal hernia contains bowel loops without evidence of obstruction or strangulation. Left renal staghorn calculus. Bilateral intrarenal calyceal calculi. Borderline hydronephrosis on the right without evidence of downstream obstructive lesion. May indicate mild ureteral pelvic junction obstruction. Somewhat atrophic left kidney. Inspissated contrast ball within the distal sigmoid colon. Gastrostomy in good position. Nonspecific bilateral perinephric fat stranding, could indicate pyelonephritis or could be chronic. Newberry catheter in place. Apparent bladder wall thickening, possibly an artifact of under distention but cystitis is not excludable, particularly in view of mild perivesical fat stranding. Bilateral pulmonary parenchymal atelectasis and consolidation -Blood Cx from PICC CoNS 2/2 bottles Peripheral Neg- (May be contaminant but will repeat blood Cx given new leukocytosis if positive will need ECHO. - Blood Cx 05/20/18 - GPC - Will need TTE for IE work up and the PICC removed. PICC line infection/colonization - TTE negative. Blood cultures only positive from PICC. Not positive from Peripheral - Will repeat blood cultures x 1 to confirm clearance after PICC replaced. Los suspicion for IE. - PICC replace 05/22/18 Fever/Leukocytosis; Resolved - i recurs Re-evaluate lines, Diarrhea? C. dif? DIVYA, improving Lactic acidosis, resolved chronic resp failure trach/vent dependant BPH GERD HTN DM2 seizure disorder colostomy s/p GT constipation VRE and MRSA colonized Plan: - Continue empiric IV Vancomycin # for bacteremia/line infection cant r/o Endocarditis -Abx end date 07/03/18 if JOE attempted again and negative then ed date would be 06/05/18 -weekly CBC, BMP, vanco through -05/30 SP Ertapenem #14 -05/17 SP Zosyn #4 JOE could not be performed due to technical problems - Unable to repeat JOE so patient should be treated for presumed endocarditis for 6 weeks - Monitor CBC/CMP, temperatures - Pulmonary care Thank you for this consultation. Will continue to follow along with you. Subjective Allergies: Coded Allergies: AZTREONAM (Verified Allergy, Unknown, 05/13/18) Subjective afebrile no leukocytosis Objective Vital Signs Last 24 Hour Vital Signs Date Time Temp Pulse Resp B/P (MAP) Pulse Ox O2 Delivery O2 Flow Rate FiO2 06/11/18 10:48 77 16 30 06/11/18 09:26 83 16 30 06/11/18 08:00 85 06/11/18 08:00 97.3 79 18 108/80 (89) 100 97.3 06/11/18 08:00 30 06/11/18 08:00 Mechanical Ventilator 06/11/18 06:40 81 16 30 06/11/18 04:46 80 16 30 06/11/18 04:00 30 06/11/18 04:00 Mechanical Ventilator 06/11/18 04:00 86 06/11/18 04:00 98.1 78 16 129/83 (98) 100 98.1 06/11/18 03:12 78 16 30 06/11/18 01:11 84 17 30 06/11/18 00:00 86 06/11/18 00:00 Mechanical Ventilator 06/11/18 00:00 99.0 86 16 124/87 (99) 99 99.0 06/11/18 00:00 30 06/10/18 22:47 89 17 30 06/10/18 21:23 95 20 30 06/10/18 20:00 98.1 91 16 115/84 (94) 99 98.1 06/10/18 20:00 84 06/10/18 20:00 Mechanical Ventilator 06/10/18 20:00 30 06/10/18 18:30 88 16 30 06/10/18 17:24 85 16 30 06/10/18 16:00 Mechanical Ventilator 06/10/18 16:00 30 06/10/18 16:00 97.9 85 18 117/82 (94) 96 97.9 06/10/18 16:00 96 06/10/18 15:20 88 16 30 06/10/18 12:31 91 16 30 Height (Feet): 6 Height (Inches): 0.00 Weight (Pounds): 203 Objective GENERAL: The patient is awake, in no overt distress. HEENT: Extraocular muscles intact. No lymphadenopathy noted. Tracheostomy noted. CARDIOVASCULAR: S1 and S2. Tachycardic. No rubs or gallops. PULMONARY: Mild diffuse expiratory rhonchi with basilar rales. ABDOMEN: Obese and nondistended. The G-tube and stoma noted. EXTREMITIES: No edema. Fair pedal pulses. Laboratory Tests Test 06/10/18 20:20 06/11/18 04:00 Vancomycin Level Trough 23.6 ug/mL (5.0-12.0) H White Blood Count 8.3 K/UL (4.8-10.8) Red Blood Count 5.01 M/UL (4.70-6.10) Hemoglobin 14.1 G/DL (14.2-18.0) L Hematocrit 43.1 % (42.0-52.0) Mean Corpuscular Volume 86 FL (80-99) Mean Corpuscular Hemoglobin 28.1 PG (27.0-31.0) Mean Corpuscular Hemoglobin Concent 32.7 G/DL (32.0-36.0) Red Cell Distribution Width 14.9 % (11.6-14.8) H Platelet Count 321 K/UL (150-450) Mean Platelet Volume 7.5 FL (6.5-10.1) Neutrophils (%) (Auto) 51.7 % (45.0-75.0) Lymphocytes (%) (Auto) 25.8 % (20.0-45.0) Monocytes (%) (Auto) 12.0 % (1.0-10.0) H Eosinophils (%) (Auto) 9.4 % (0.0-3.0) H Basophils (%) (Auto) 1.1 % (0.0-2.0) Sodium Level 139 MMOL/L (136-145) Potassium Level 4.3 MMOL/L (3.5-5.1) Chloride Level 102 MMOL/L (98-107) Carbon Dioxide Level 23 MMOL/L (21-32) Anion Gap 14 mmol/L (5-15) Blood Urea Nitrogen 19 mg/dL (7-18) H Creatinine 1.1 MG/DL (0.55-1.30) Estimat Glomerular Filtration Rate > 60 mL/min (>60) Glucose Level 122 MG/DL (74-106) H Calcium Level 10.3 MG/DL (8.5-10.1) H Random Vancomycin Level 16.5 ug/mL Current Medications Medications (Trade) Dose Ordered Sig/Va Route PRN Reason Start Time Stop Time Status Last Admin Dose Admin Acetaminophen (Tylenol) 650 mg Q4H PRN ORAL FEVER 06/08/18 21:00 07/06/18 20:59 Baclofen (Lioresal) 10 mg EVERY 8 HOURS GT 06/08/18 22:00 07/02/18 20:59 06/11/18 05:06 Chlorhexidine Gluconate (Rebecca-Hex 2%) 1 applic DAILY@1999 TOPIC 06/08/18 22:00 07/08/18 21:59 06/10/18 20:08 Dextrose (Dextrose 50%) 25 ml STAT PRN IV Hypoglycemia 06/08/18 21:45 07/06/18 21:44 Dextrose (Dextrose 50%) 50 ml STAT PRN IV Hypoglycemia 06/08/18 21:45 07/06/18 21:44 Heparin Sodium (Porcine) (Heparin 5000 units/ml) 5,000 units EVERY 12 HOURS SUBQ 06/08/18 22:00 07/08/18 21:59 06/11/18 09:08 Insulin Aspart (NovoLOG) Q6HR SUBQ 06/09/18 00:00 07/07/18 17:29 06/11/18 11:50 Lansoprazole (Prevacid) 30 mg DAILY GT 06/09/18 09:00 07/08/18 08:59 06/11/18 09:02 Levetiracetam (Keppra) 1,000 mg Q8HR GT 06/08/18 22:00 07/06/18 20:59 06/11/18 05:06 Ondansetron HCl (Zofran) 4 mg Q6H PRN IVP Nausea & Vomiting 06/08/18 22:00 07/06/18 15:59 Polyethylene Glycol (Miralax) 17 gm BEDTIME GT 06/08/18 22:00 07/08/18 21:59 06/09/18 21:25 Vancomycin HCl (Vanco rx to dose) 1 ea DAILY PRN MISC PER RX PROTOCOL 06/08/18 21:45 07/08/18 21:44 Vancomycin HCl/ Dextrose 250 ml @ 125 mls/hr Q24H IVPB 06/11/18 07:00 06/16/18 06:59 06/11/18 06:52 Maribel Barrera M.D. Jun 11, 2018 12:19
--- NOTE | 2018-06-11 13:07 | GI Progress Note ---
Assessment/Plan Problems: (1) Parastomal hernia ICD Codes: K43.5 - Parastomal hernia without obstruction or gangrene SNOMED: 884273445 Qualifiers: Qualified Codes: K43.5 - Parastomal hernia without obstruction or gangrene (2) Stoma malfunction SNOMED: 868100276 (3) Colostomy in place ICD Codes: Z93.3 - Colostomy status SNOMED: 636988342, 182581072 (4) Vegetative state ICD Codes: R40.3 - Persistent vegetative state SNOMED: 09945831 (5) Diabetes mellitus ICD Codes: E11.9 - Type 2 diabetes mellitus without complications SNOMED: 25440246 (6) Acute on chronic respiratory failure ICD Codes: J96.20 - Acute and chronic respiratory failure, unspecified whether with hypoxia or hypercapnia SNOMED: 24569948 (7) Severe sepsis ICD Codes: A41.9 - Sepsis, unspecified organism; R65.20 - Severe sepsis without septic shock SNOMED: 35493589 Status: unchanged Status Narrative Discussed with Dr. Prater. Assessment/Plan parastomal >> no s/sx of infection. no obstruction. anemia work up reviewed >> iron deficiency G tube dependent hepatitis panel negative OB negative supportive care monitor H&H, prn transfusions venofer ppi GTFs per RD, adv to goal GT site care daily/prn abx bowel regime fu labs dc planning The patient was seen and examined at bedside and all new and available data was reviewed in the patients chart. I agree with the above findings, impression and plan. (Patient seen earlier today. Signature stamp does not reflect patient encounter time.). - Dae Prater MD Subjective Subjective limited Objective Last 24 Hour Vital Signs Date Time Temp Pulse Resp B/P (MAP) Pulse Ox O2 Delivery O2 Flow Rate FiO2 06/11/18 10:48 77 16 30 06/11/18 09:26 83 16 30 06/11/18 08:00 85 06/11/18 08:00 97.3 79 18 108/80 (89) 100 97.3 06/11/18 08:00 30 06/11/18 08:00 Mechanical Ventilator 06/11/18 06:40 81 16 30 06/11/18 04:46 80 16 30 06/11/18 04:00 30 06/11/18 04:00 Mechanical Ventilator 06/11/18 04:00 86 06/11/18 04:00 98.1 78 16 129/83 (98) 100 98.1 06/11/18 03:12 78 16 30 06/11/18 01:11 84 17 30 06/11/18 00:00 86 06/11/18 00:00 Mechanical Ventilator 06/11/18 00:00 99.0 86 16 124/87 (99) 99 99.0 06/11/18 00:00 30 06/10/18 22:47 89 17 30 06/10/18 21:23 95 20 30 06/10/18 20:00 98.1 91 16 115/84 (94) 99 98.1 06/10/18 20:00 84 06/10/18 20:00 Mechanical Ventilator 06/10/18 20:00 30 06/10/18 18:30 88 16 30 06/10/18 17:24 85 16 30 06/10/18 16:00 Mechanical Ventilator 06/10/18 16:00 30 06/10/18 16:00 97.9 85 18 117/82 (94) 96 97.9 06/10/18 16:00 96 06/10/18 15:20 88 16 30 Intake and Output 06/10/18 06/11/18 19:00 07:00 Intake Total 710 ml 650 ml Output Total 825 ml 700 ml Balance -115 ml -50 ml Free Water 60 ml 40 ml Tube Feeding 650 ml 550 ml Other 60 ml Output Urine Total 425 ml 350 ml Stool Total 400 ml 350 ml Laboratory Tests Test 06/10/18 20:20 06/11/18 04:00 Vancomycin Level Trough 23.6 ug/mL (5.0-12.0) H White Blood Count 8.3 K/UL (4.8-10.8) Red Blood Count 5.01 M/UL (4.70-6.10) Hemoglobin 14.1 G/DL (14.2-18.0) L Hematocrit 43.1 % (42.0-52.0) Mean Corpuscular Volume 86 FL (80-99) Mean Corpuscular Hemoglobin 28.1 PG (27.0-31.0) Mean Corpuscular Hemoglobin Concent 32.7 G/DL (32.0-36.0) Red Cell Distribution Width 14.9 % (11.6-14.8) H Platelet Count 321 K/UL (150-450) Mean Platelet Volume 7.5 FL (6.5-10.1) Neutrophils (%) (Auto) 51.7 % (45.0-75.0) Lymphocytes (%) (Auto) 25.8 % (20.0-45.0) Monocytes (%) (Auto) 12.0 % (1.0-10.0) H Eosinophils (%) (Auto) 9.4 % (0.0-3.0) H Basophils (%) (Auto) 1.1 % (0.0-2.0) Sodium Level 139 MMOL/L (136-145) Potassium Level 4.3 MMOL/L (3.5-5.1) Chloride Level 102 MMOL/L (98-107) Carbon Dioxide Level 23 MMOL/L (21-32) Anion Gap 14 mmol/L (5-15) Blood Urea Nitrogen 19 mg/dL (7-18) H Creatinine 1.1 MG/DL (0.55-1.30) Estimat Glomerular Filtration Rate > 60 mL/min (>60) Glucose Level 122 MG/DL (74-106) H Calcium Level 10.3 MG/DL (8.5-10.1) H Random Vancomycin Level 16.5 ug/mL Height (Feet): 6 Height (Inches): 0.00 Weight (Pounds): 203 General Appearance: WD/WN, no apparent distress, alert Cardiovascular: normal rate Respiratory/Chest: normal breath sounds, no respiratory distress, other - mech vent Abdominal Exam: normal bowel sounds, non tender, soft, other - colostomy Extremities: non-tender Boyd Emmanuel ORE MIXER Jun 11, 2018 13:07
--- NOTE | 2018-06-11 13:23 | Cardiology Progress Note ---
Assessment/Plan Status: stable Assessment/Plan Assessment: (1) Acute on chronic respiratory failure (2) Acute on chronic renal insufficiency (3) Severe sepsis (4) Vegetative state (5) Colostomy in place (6) Diabetes mellitus Plan: Continue antibiotics Echocardiogram reviewed- no endocarditis, JOE unable to be performed Patient afebrile, normal WBC otherwise Continue trach care and tube feeds Continue keppra for seizures Continue abx treatment for six weeks via PICC line until 07/06 Dispo planning Subjective Cardiovascular: Reports: no symptoms Respiratory: Reports: no symptoms Gastrointestinal/Abdominal: Reports: no symptoms Genitourinary: Reports: no symptoms Subjective Afebrile vitals stable, Telemetry shows sinus rhythm. No acute events. Left pleural effusion unchanged. Ventilator settings: portex 7, AC 16, TV: 600, FiO2: 30%, PEEP: 5. GT is in place running glucerna 1.2 @ 65 ml/hr. No residual present. Colostomy bag in place. JOE not completed, probe unable to be passed. Patient should be treated for total six weeks abx for presumptive endocarditis at this juncture. Hyponatremia resolved, DIVYA resolved, patient stable . Objective Last 24 Hour Vital Signs Date Time Temp Pulse Resp B/P (MAP) Pulse Ox O2 Delivery O2 Flow Rate FiO2 06/11/18 10:48 77 16 30 06/11/18 09:26 83 16 30 06/11/18 08:00 85 06/11/18 08:00 97.3 79 18 108/80 (89) 100 97.3 06/11/18 08:00 30 06/11/18 08:00 Mechanical Ventilator 06/11/18 06:40 81 16 30 06/11/18 04:46 80 16 30 06/11/18 04:00 30 06/11/18 04:00 Mechanical Ventilator 06/11/18 04:00 86 06/11/18 04:00 98.1 78 16 129/83 (98) 100 98.1 06/11/18 03:12 78 16 30 06/11/18 01:11 84 17 30 06/11/18 00:00 86 06/11/18 00:00 Mechanical Ventilator 06/11/18 00:00 99.0 86 16 124/87 (99) 99 99.0 06/11/18 00:00 30 06/10/18 22:47 89 17 30 06/10/18 21:23 95 20 30 06/10/18 20:00 98.1 91 16 115/84 (94) 99 98.1 06/10/18 20:00 84 06/10/18 20:00 Mechanical Ventilator 06/10/18 20:00 30 06/10/18 18:30 88 16 30 06/10/18 17:24 85 16 30 06/10/18 16:00 Mechanical Ventilator 06/10/18 16:00 30 06/10/18 16:00 97.9 85 18 117/82 (94) 96 97.9 06/10/18 16:00 96 06/10/18 15:20 88 16 30 General Appearance: no apparent distress, alert, on vent EENT: PERRL/EOMI, normal ENT inspection Neck: non-tender, normal alignment Rhythm: NSR Cardiovascular: normal peripheral pulses, normal rate Respiratory/Chest: chest wall non-tender, lungs clear Abdomen: normal bowel sounds, non tender Extremities: normal range of motion, non-tender Neurologic: 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 mechanic II-XII grossly normal, no motor/sensory deficits, abnormal gait Intake and Output 06/10/18 06/11/18 19:00 07:00 Intake Total 710 ml 650 ml Output Total 825 ml 700 ml Balance -115 ml -50 ml Free Water 60 ml 40 ml Tube Feeding 650 ml 550 ml Other 60 ml Output Urine Total 425 ml 350 ml Stool Total 400 ml 350 ml Laboratory Tests Test 06/10/18 20:20 06/11/18 04:00 Vancomycin Level Trough 23.6 ug/mL (5.0-12.0) H White Blood Count 8.3 K/UL (4.8-10.8) Red Blood Count 5.01 M/UL (4.70-6.10) Hemoglobin 14.1 G/DL (14.2-18.0) L Hematocrit 43.1 % (42.0-52.0) Mean Corpuscular Volume 86 FL (80-99) Mean Corpuscular Hemoglobin 28.1 PG (27.0-31.0) Mean Corpuscular Hemoglobin Concent 32.7 G/DL (32.0-36.0) Red Cell Distribution Width 14.9 % (11.6-14.8) H Platelet Count 321 K/UL (150-450) Mean Platelet Volume 7.5 FL (6.5-10.1) Neutrophils (%) (Auto) 51.7 % (45.0-75.0) Lymphocytes (%) (Auto) 25.8 % (20.0-45.0) Monocytes (%) (Auto) 12.0 % (1.0-10.0) H Eosinophils (%) (Auto) 9.4 % (0.0-3.0) H Basophils (%) (Auto) 1.1 % (0.0-2.0) Sodium Level 139 MMOL/L (136-145) Potassium Level 4.3 MMOL/L (3.5-5.1) Chloride Level 102 MMOL/L (98-107) Carbon Dioxide Level 23 MMOL/L (21-32) Anion Gap 14 mmol/L (5-15) Blood Urea Nitrogen 19 mg/dL (7-18) H Creatinine 1.1 MG/DL (0.55-1.30) Estimat Glomerular Filtration Rate > 60 mL/min (>60) Glucose Level 122 MG/DL (74-106) H Calcium Level 10.3 MG/DL (8.5-10.1) H Random Vancomycin Level 16.5 ug/mL Kali Owens M.D. Jun 11, 2018 13:23
[2018-06-11 16:00] VITALS: BP 118/82
[2018-06-11 20:00] VITALS: BP 118/80
[2018-06-11] MEDS: Miralax 17gm pkt GT SCH (21:34)
[2018-06-11] MEDS: Dyna-Hex 2% Top Sol 2oz TOPIC SCH (21:35)
--- NOTE | 2018-06-11 23:02 | Progress Note ---
DATE: 06/11/2018 SUBJECTIVE: The patient is awake and alert, afebrile, hemodynamically stable. Family is at bedside and impressed by the patient's condition as compared to 2 weeks ago. PHYSICAL EXAMINATION: VITAL SIGNS: Blood pressure is 128/83, his pulse is 79, respirations are 18, and temperature 97.2 degrees. HEENT: Eyes were normal. ENT, mucous membranes were moist and intact. NECK: Supple with no JVD without lymph nodes. Tracheostomy site is clean. LUNGS: Clear without rhonchi, rales, or wheezing. Secretions are small, thin, and hodgson. HEART: Normal sounds with regular beats. There is no S3, S4, or pericardial rub. ABDOMEN: Soft and nontender with normal bowel sounds. Gastrostomy site is clean. EXTREMITIES: Warm without cyanosis, clubbing, or edema. LABORATORY AND DIAGNOSTIC DATA: Hemoglobin is 14.1, hematocrit 37.1 with MCV of 86, WBC of 8.3, and platelets 321. His BUN and creatinine are 19 and 1.1, respectively. His sodium is 139, potassium 4.3, chloride 102, and CO2 is 23. His calcium is 10.3. IMPRESSION AND PLAN: 1. The patient has been in stable condition over the last 10 days, afebrile, hemodynamically stable without leukocytosis, with tachycardia. 2. The patient is status post cerebral hemorrhage. Condition is stable. There are no cognitive changes. 3. The patient has seizure disorder. seizure. We will continue with levetiracetam 1000 mg b.i.d. 4. The patient has respiratory failure. We will continue with the same respiratory setting. Continue with albuterol sulfate, ipratropium bromide inhalation therapy every 6 hours. 5. The patient has tracheostomy. normal O2 saturation and bronchial secretion. 6. The patient is having gastrostomy feeding. There is no gastric residual. Continue with Fibersource every 6 hours. 7. Repeat laboratory tests will be done in the morning. Sariah Bhat M.D. DR: ELISSA JOB#: [id number] CC:
[2018-06-12] VITALS: BP 114/76
[2018-06-12 04:00] VITALS: BP 127/88
[2018-06-12 04:42] LABS: BASOPHILS % (AUTO) 1.4 % (0.0-2.0); EOSINOPHILS % (AUTO) 9.9 % (0.0-3.0); HEMATOCRIT 44.3 % (42.0-52.0); HEMOGLOBIN 14.4 G/DL (14.2-18.0); LYMPHOCYTES % (AUTO) 28.5 % (20.0-45.0); MEAN CORPUSCULAR VOLUME 87 FL (80-99); MONOCYTES % (AUTO) 9.7 % (1.0-10.0); NEUTROPHILS % (AUTO) 50.5 % (45.0-75.0); PLATELET COUNT 313 K/UL (150-450); RED BLOOD COUNT 5.09 M/UL (4.70-6.10); RED CELL DISTRIBUTION WIDTH 14.9 % (11.6-14.8); WHITE BLOOD COUNT 6.9 K/UL (4.8-10.8)
[2018-06-12 05:07] LABS: ANION GAP 14 mmol/L (5-15); BLOOD UREA NITROGEN 19 mg/dL (7-18); CALCIUM 10.6 MG/DL (8.5-10.1); CARBON DIOXIDE 23 MMOL/L (21-32); CHLORIDE 101 MMOL/L (98-107); CREATININE 1.1 MG/DL (0.55-1.30); POTASSIUM 3.9 MMOL/L (3.5-5.1); SODIUM 138 MMOL/L (136-145)
[2018-06-12] MEDS: levETIRAcetam 500mg/5ml Liquid GT SCH ×3 (05:45→22:46)
[2018-06-12] MEDS: NovoLOG Insulin Flexpen SUBQ SCH ×3 (05:45→18:02)
[2018-06-12] MEDS: Vancomycin 1.5gm/D5W 250ml 250 ML IVPB SCH (06:26)
[2018-06-12 08:00] VITALS: BP 113/79
[2018-06-12] MEDS: Heparin 5000 units/ml inj SUBQ SCH ×2 (09:09→20:49)
--- NOTE | 2018-06-12 10:16 | Pulmonolgy Critical Care Note ---
Critical Care - Asmt/Plan Problems: (1) Acute on chronic respiratory failure (2) Acute on chronic renal insufficiency (3) Severe sepsis (4) Vegetative state (5) Colostomy in place (6) Diabetes mellitus Respiratory: monitor respiratory rate, adjust FIO2, CXR Cardiac: continue to monitor HR/BP Renal: F/U I&O Infectious Disease: check cultures Gastrointestinal: continue feedings/current rate Endocrine: monitor blood sugar Neurologic: PRN Ativan, PRN Morphine Affect: PRN ativan Disposition: keep in ICU Time Spent (Minutes): 40 Critical Care - Objective Last 24 Hour Vital Signs Date Time Temp Pulse Resp B/P (MAP) Pulse Ox O2 Delivery O2 Flow Rate FiO2 06/12/18 09:15 84 17 30 06/12/18 08:00 96.6 87 16 113/79 (90) 100 96.6 06/12/18 08:00 30 06/12/18 08:00 Mechanical Ventilator 06/12/18 08:00 81 06/12/18 07:00 82 17 30 06/12/18 05:06 93 17 30 06/12/18 04:00 Mechanical Ventilator 06/12/18 04:00 80 06/12/18 04:00 97.3 94 20 127/88 (101) 100 97.3 06/12/18 04:00 30 06/12/18 03:23 82 16 30 06/12/18 01:26 82 17 30 06/12/18 00:00 97.7 78 18 114/76 (89) 100 97.7 06/12/18 00:00 Mechanical Ventilator 06/12/18 00:00 30 06/11/18 23:11 71 17 30 06/11/18 21:04 73 16 30 06/11/18 20:00 77 06/11/18 20:00 78 17 30 06/11/18 20:00 97.7 76 18 118/80 (93) 100 97.7 06/11/18 20:00 Mechanical Ventilator 06/11/18 20:00 30 06/11/18 17:28 79 17 30 06/11/18 16:00 Mechanical Ventilator 06/11/18 16:00 98.0 80 16 118/82 (94) 100 98.0 06/11/18 16:00 78 06/11/18 16:00 30 06/11/18 14:55 83 16 30 06/11/18 13:16 76 16 30 06/11/18 12:00 30 06/11/18 12:00 Mechanical Ventilator 06/11/18 12:00 97.2 79 18 128/83 (98) 100 97.2 06/11/18 11:25 84 06/11/18 10:48 77 16 30 Status: awake Condition: critical HEENT: atraumatic Lungs: clear Heart: HR/BP stable Abdomen: soft, active bowel sounds, feeding tube Extremities: no C/C/E, edema Accucheck: 110 Critical Care - Subjective ROS Limited/Unobtainable: Yes Condition: critical FI02: 30 Vent Support Breath Rate: 16 Vent Support Mode: AC Vent Tidal Volume: 600 Sputum Amount: Small PEEP: 5.0 PIP: 44 Tube Feeding Amount: 50 I&O: Intake and Output 06/11/18 06/12/18 19:00 07:00 Intake Total 670 ml 670 ml Output Total 675 ml 650 ml Balance -5 ml 20 ml Free Water 70 ml 120 ml Tube Feeding 600 ml 550 ml Output Urine Total 275 ml 250 ml Stool Total 400 ml 400 ml # Bowel Movements 2 Labs: Laboratory Tests Test 06/12/18 04:00 White Blood Count 6.9 K/UL (4.8-10.8) Red Blood Count 5.09 M/UL (4.70-6.10) Hemoglobin 14.4 G/DL (14.2-18.0) Hematocrit 44.3 % (42.0-52.0) Mean Corpuscular Volume 87 FL (80-99) Mean Corpuscular Hemoglobin 28.3 PG (27.0-31.0) Mean Corpuscular Hemoglobin Concent 32.5 G/DL (32.0-36.0) Red Cell Distribution Width 14.9 % (11.6-14.8) H Platelet Count 313 K/UL (150-450) Mean Platelet Volume 7.6 FL (6.5-10.1) Neutrophils (%) (Auto) 50.5 % (45.0-75.0) Lymphocytes (%) (Auto) 28.5 % (20.0-45.0) Monocytes (%) (Auto) 9.7 % (1.0-10.0) Eosinophils (%) (Auto) 9.9 % (0.0-3.0) H Basophils (%) (Auto) 1.4 % (0.0-2.0) Sodium Level 138 MMOL/L (136-145) Potassium Level 3.9 MMOL/L (3.5-5.1) Chloride Level 101 MMOL/L (98-107) Carbon Dioxide Level 23 MMOL/L (21-32) Anion Gap 14 mmol/L (5-15) Blood Urea Nitrogen 19 mg/dL (7-18) H Creatinine 1.1 MG/DL (0.55-1.30) Estimat Glomerular Filtration Rate > 60 mL/min (>60) Glucose Level 113 MG/DL (74-106) H Calcium Level 10.6 MG/DL (8.5-10.1) H Nico Goetz MD Jun 12, 2018 10:16
[2018-06-12 11:51] VITALS: BP 114/78
--- NOTE | 2018-06-12 11:55 | GI Progress Note ---
Assessment/Plan Problems: (1) Parastomal hernia ICD Codes: K43.5 - Parastomal hernia without obstruction or gangrene SNOMED: 216344916 Qualifiers: Qualified Codes: K43.5 - Parastomal hernia without obstruction or gangrene (2) Stoma malfunction SNOMED: 624904059 (3) Colostomy in place ICD Codes: Z93.3 - Colostomy status SNOMED: 075233582, 490677341 (4) Vegetative state ICD Codes: R40.3 - Persistent vegetative state SNOMED: 35091159 (5) Diabetes mellitus ICD Codes: E11.9 - Type 2 diabetes mellitus without complications SNOMED: 62360461 (6) Acute on chronic respiratory failure ICD Codes: J96.20 - Acute and chronic respiratory failure, unspecified whether with hypoxia or hypercapnia SNOMED: 73757786 (7) Severe sepsis ICD Codes: A41.9 - Sepsis, unspecified organism; R65.20 - Severe sepsis without septic shock SNOMED: 84001667 Status: stable Status Narrative Discussed with Dr. Prater. Assessment/Plan parastomal >> no s/sx of infection. no obstruction. anemia work up reviewed >> iron deficiency G tube dependent hepatitis panel negative OB negative supportive care monitor H&H, prn transfusions venofer ppi GTFs per RD, adv to goal GT site care daily/prn abx bowel regime fu labs dc planning The patient was seen and examined at bedside and all new and available data was reviewed in the patients chart. I agree with the above findings, impression and plan. (Patient seen earlier today. Signature stamp does not reflect patient encounter time.). - Dae Prater MD Subjective Subjective limited Objective Last 24 Hour Vital Signs Date Time Temp Pulse Resp B/P (MAP) Pulse Ox O2 Delivery O2 Flow Rate FiO2 06/12/18 11:51 96.7 76 18 114/78 (90) 96 96.7 06/12/18 10:36 83 16 30 06/12/18 09:15 84 17 30 06/12/18 08:00 96.6 87 16 113/79 (90) 100 96.6 06/12/18 08:00 30 06/12/18 08:00 Mechanical Ventilator 06/12/18 08:00 81 06/12/18 07:00 82 17 30 06/12/18 05:06 93 17 30 06/12/18 04:00 Mechanical Ventilator 06/12/18 04:00 80 06/12/18 04:00 97.3 94 20 127/88 (101) 100 97.3 06/12/18 04:00 30 06/12/18 03:23 82 16 30 06/12/18 01:26 82 17 30 06/12/18 00:00 97.7 78 18 114/76 (89) 100 97.7 06/12/18 00:00 Mechanical Ventilator 06/12/18 00:00 30 06/11/18 23:11 71 17 30 06/11/18 21:04 73 16 30 06/11/18 20:00 77 06/11/18 20:00 78 17 30 06/11/18 20:00 97.7 76 18 118/80 (93) 100 97.7 06/11/18 20:00 Mechanical Ventilator 06/11/18 20:00 30 06/11/18 17:28 79 17 30 06/11/18 16:00 Mechanical Ventilator 06/11/18 16:00 98.0 80 16 118/82 (94) 100 98.0 06/11/18 16:00 78 06/11/18 16:00 30 06/11/18 14:55 83 16 30 06/11/18 13:16 76 16 30 06/11/18 12:00 30 06/11/18 12:00 Mechanical Ventilator 06/11/18 12:00 97.2 79 18 128/83 (98) 100 97.2 Intake and Output 06/11/18 06/12/18 19:00 07:00 Intake Total 670 ml 670 ml Output Total 675 ml 650 ml Balance -5 ml 20 ml Free Water 70 ml 120 ml Tube Feeding 600 ml 550 ml Output Urine Total 275 ml 250 ml Stool Total 400 ml 400 ml # Bowel Movements 2 Laboratory Tests Test 06/12/18 04:00 White Blood Count 6.9 K/UL (4.8-10.8) Red Blood Count 5.09 M/UL (4.70-6.10) Hemoglobin 14.4 G/DL (14.2-18.0) Hematocrit 44.3 % (42.0-52.0) Mean Corpuscular Volume 87 FL (80-99) Mean Corpuscular Hemoglobin 28.3 PG (27.0-31.0) Mean Corpuscular Hemoglobin Concent 32.5 G/DL (32.0-36.0) Red Cell Distribution Width 14.9 % (11.6-14.8) H Platelet Count 313 K/UL (150-450) Mean Platelet Volume 7.6 FL (6.5-10.1) Neutrophils (%) (Auto) 50.5 % (45.0-75.0) Lymphocytes (%) (Auto) 28.5 % (20.0-45.0) Monocytes (%) (Auto) 9.7 % (1.0-10.0) Eosinophils (%) (Auto) 9.9 % (0.0-3.0) H Basophils (%) (Auto) 1.4 % (0.0-2.0) Sodium Level 138 MMOL/L (136-145) Potassium Level 3.9 MMOL/L (3.5-5.1) Chloride Level 101 MMOL/L (98-107) Carbon Dioxide Level 23 MMOL/L (21-32) Anion Gap 14 mmol/L (5-15) Blood Urea Nitrogen 19 mg/dL (7-18) H Creatinine 1.1 MG/DL (0.55-1.30) Estimat Glomerular Filtration Rate > 60 mL/min (>60) Glucose Level 113 MG/DL (74-106) H Calcium Level 10.6 MG/DL (8.5-10.1) H Height (Feet): 6 Height (Inches): 0.00 Weight (Pounds): 196 General Appearance: WD/WN, no apparent distress, alert Cardiovascular: normal rate Respiratory/Chest: normal breath sounds, no respiratory distress, other - mech vent Abdominal Exam: normal bowel sounds, non tender, soft, GT site - c/d/i, other - colostomy Extremities: normal range of motion, non-tender Boyd Emmanuel NP Jun 12, 2018 11:55
--- NOTE | 2018-06-12 16:07 | Infectious Diseases Prog Note ---
Assessment/Plan Assessment/Plan Assessment/Plan Sepsis, SP- 2ry to UTI and Bacteremia Blood cultures postive 01/23 bottles with GPC Unclear source will need to R/O Endocarditis Possible PNA initially -u/a wbc 40-60, nit neg, leuk +2; ucx >100k E. aerogenes (S cefepime, cipro/ levo; R Zosyn) -BCX 01/23 E. aerogenes, prob Amp C (S cefepime, cipro/levo; R Zosyn), P. mirabilis ESBL (S Zosyn, Ertapenem); repeta 05/16 10/25 CoNS (suspect contaminant) , 05/18 Staph f/u final results if CoNS may need TTE and IE work up. -CXR 05/17: Increased left pleural effusion, over 3 days. Overall decreased interstitial congestion. Right infrahilar atelectasis -CXR: Cardiomegaly. Mild interstitial congestion. Suspect small bilateral pleural effusions -CT abd/p: Right lower quadrant double barrel colostomy, as described. Small peristomal hernia contains bowel loops without evidence of obstruction or strangulation. Left renal staghorn calculus. Bilateral intrarenal calyceal calculi. Borderline hydronephrosis on the right without evidence of downstream obstructive lesion. May indicate mild ureteral pelvic junction obstruction. Somewhat atrophic left kidney. Inspissated contrast ball within the distal sigmoid colon. Gastrostomy in good position. Nonspecific bilateral perinephric fat stranding, could indicate pyelonephritis or could be chronic. Newberry catheter in place. Apparent bladder wall thickening, possibly an artifact of under distention but cystitis is not excludable, particularly in view of mild perivesical fat stranding. Bilateral pulmonary parenchymal atelectasis and consolidation -Blood Cx from PICC CoNS 2/2 bottles Peripheral Neg- (May be contaminant but will repeat blood Cx given new leukocytosis if positive will need ECHO. - Blood Cx 05/20/18 - GPC - Will need TTE for IE work up and the PICC removed. PICC line infection/colonization - TTE negative. Blood cultures only positive from PICC. Not positive from Peripheral - Will repeat blood cultures x 1 to confirm clearance after PICC replaced. Los suspicion for IE. - PICC replace 05/22/18 Fever/Leukocytosis; Resolved - i recurs Re-evaluate lines, Diarrhea? C. dif? DIVYA, improving Lactic acidosis, resolved chronic resp failure trach/vent dependant BPH GERD HTN DM2 seizure disorder colostomy s/p GT constipation VRE and MRSA colonized Plan: - Continue empiric IV Vancomycin # for bacteremia/line infection cant r/o Endocarditis -Abx end date 07/03/18 if JOE attempted again and negative then ed date would be 06/05/18 -weekly CBC, BMP, vanco through -05/30 SP Ertapenem #14 -05/17 SP Zosyn #4 JOE could not be performed due to technical problems - Unable to repeat JOE so patient should be treated for presumed endocarditis for 6 weeks - Monitor CBC/CMP, temperatures - Pulmonary care Thank you for this consultation. Will continue to follow along with you. Subjective Allergies: Coded Allergies: AZTREONAM (Verified Allergy, Unknown, 05/13/18) Subjective afebrile no leukocytosis Objective Vital Signs Last 24 Hour Vital Signs Date Time Temp Pulse Resp B/P (MAP) Pulse Ox O2 Delivery O2 Flow Rate FiO2 06/12/18 15:00 86 17 30 06/12/18 13:28 82 16 30 06/12/18 12:02 30 06/12/18 12:00 Mechanical Ventilator 06/12/18 12:00 81 06/12/18 11:51 96.7 76 18 114/78 (90) 96 96.7 06/12/18 10:36 83 16 30 06/12/18 09:15 84 17 30 06/12/18 08:00 96.6 87 16 113/79 (90) 100 96.6 06/12/18 08:00 30 06/12/18 08:00 Mechanical Ventilator 06/12/18 08:00 81 06/12/18 07:00 82 17 30 06/12/18 05:06 93 17 30 06/12/18 04:00 Mechanical Ventilator 06/12/18 04:00 80 06/12/18 04:00 97.3 94 20 127/88 (101) 100 97.3 06/12/18 04:00 30 06/12/18 03:23 82 16 30 06/12/18 01:26 82 17 30 06/12/18 00:00 97.7 78 18 114/76 (89) 100 97.7 06/12/18 00:00 Mechanical Ventilator 06/12/18 00:00 30 8/21/18 23:11 71 17 30 06/11/18 21:04 73 16 30 06/11/18 20:00 77 06/11/18 20:00 78 17 30 06/11/18 20:00 97.7 76 18 118/80 (93) 100 97.7 06/11/18 20:00 Mechanical Ventilator 06/11/18 20:00 30 06/11/18 17:28 79 17 30 Height (Feet): 6 Height (Inches): 0.00 Weight (Pounds): 196 Objective GENERAL: The patient is awake, in no overt distress. HEENT: Extraocular muscles intact. No lymphadenopathy noted. Tracheostomy noted. CARDIOVASCULAR: S1 and S2. Tachycardic. No rubs or gallops. PULMONARY: Mild diffuse expiratory rhonchi with basilar rales. ABDOMEN: Obese and nondistended. The G-tube and stoma noted. EXTREMITIES: No edema. Fair pedal pulses. Laboratory Tests Test 06/12/18 04:00 White Blood Count 6.9 K/UL (4.8-10.8) Red Blood Count 5.09 M/UL (4.70-6.10) Hemoglobin 14.4 G/DL (14.2-18.0) Hematocrit 44.3 % (42.0-52.0) Mean Corpuscular Volume 87 FL (80-99) Mean Corpuscular Hemoglobin 28.3 PG (27.0-31.0) Mean Corpuscular Hemoglobin Concent 32.5 G/DL (32.0-36.0) Red Cell Distribution Width 14.9 % (11.6-14.8) H Platelet Count 313 K/UL (150-450) Mean Platelet Volume 7.6 FL (6.5-10.1) Neutrophils (%) (Auto) 50.5 % (45.0-75.0) Lymphocytes (%) (Auto) 28.5 % (20.0-45.0) Monocytes (%) (Auto) 9.7 % (1.0-10.0) Eosinophils (%) (Auto) 9.9 % (0.0-3.0) H Basophils (%) (Auto) 1.4 % (0.0-2.0) Sodium Level 138 MMOL/L (136-145) Potassium Level 3.9 MMOL/L (3.5-5.1) Chloride Level 101 MMOL/L (98-107) Carbon Dioxide Level 23 MMOL/L (21-32) Anion Gap 14 mmol/L (5-15) Blood Urea Nitrogen 19 mg/dL (7-18) H Creatinine 1.1 MG/DL (0.55-1.30) Estimat Glomerular Filtration Rate > 60 mL/min (>60) Glucose Level 113 MG/DL (74-106) H Calcium Level 10.6 MG/DL (8.5-10.1) H Current Medications Medications (Trade) Dose Ordered Sig/Va Route PRN Reason Start Time Stop Time Status Last Admin Dose Admin Acetaminophen (Tylenol) 650 mg Q4H PRN ORAL FEVER 06/08/18 21:00 07/06/18 20:59 Baclofen (Lioresal) 10 mg EVERY 8 HOURS GT 06/08/18 22:00 07/02/18 20:59 06/12/18 05:45 Chlorhexidine Gluconate (Rebecca-Hex 2%) 1 applic DAILY@1999 TOPIC 06/08/18 22:00 07/08/18 21:59 06/11/18 21:35 Dextrose (Dextrose 50%) 25 ml STAT PRN IV Hypoglycemia 06/08/18 21:45 07/06/18 21:44 Dextrose (Dextrose 50%) 50 ml STAT PRN IV Hypoglycemia 06/08/18 21:45 07/06/18 21:44 Heparin Sodium (Porcine) (Heparin 5000 units/ml) 5,000 units EVERY 12 HOURS SUBQ 06/08/18 22:00 07/08/18 21:59 06/12/18 09:09 Insulin Aspart (NovoLOG) Q6HR SUBQ 06/09/18 00:00 07/07/18 17:29 06/11/18 23:50 Lansoprazole (Prevacid) 30 mg DAILY GT 06/09/18 09:00 07/08/18 08:59 06/12/18 09:08 Levetiracetam (Keppra) 1,000 mg Q8HR GT 06/08/18 22:00 07/06/18 20:59 06/12/18 05:45 Ondansetron HCl (Zofran) 4 mg Q6H PRN IVP Nausea & Vomiting 06/08/18 22:00 07/06/18 15:59 Polyethylene Glycol (Miralax) 17 gm BEDTIME GT 06/08/18 22:00 07/08/18 21:59 06/11/18 21:34 Vancomycin HCl (Vanco rx to dose) 1 ea DAILY PRN MISC PER RX PROTOCOL 06/08/18 21:45 07/08/18 21:44 Vancomycin HCl/ Dextrose 250 ml @ 125 mls/hr Q24H IVPB 06/11/18 07:00 06/16/18 06:59 06/12/18 06:26 Maribel Barrera M.D. Jun 12, 2018 16:07
--- NOTE | 2018-06-12 16:38 | Cardiology Progress Note ---
Assessment/Plan Status: stable Assessment/Plan Assessment: (1) Acute on chronic respiratory failure (2) Acute on chronic renal insufficiency (3) Severe sepsis (4) Vegetative state (5) Colostomy in place (6) Diabetes mellitus Plan: Continue antibiotics Echocardiogram reviewed- no endocarditis, JOE unable to be performed Patient afebrile, normal WBC otherwise Continue trach care and tube feeds Continue keppra for seizures Continue abx treatment for six weeks via PICC line until 07/06 Dispo planning Subjective Cardiovascular: Reports: no symptoms Respiratory: Reports: no symptoms Gastrointestinal/Abdominal: Reports: no symptoms Genitourinary: Reports: no symptoms Subjective Afebrile vitals stable, Telemetry shows sinus rhythm. No acute events. Left pleural effusion unchanged. Ventilator settings: portex 7, AC 16, TV: 600, FiO2: 30%, PEEP: 5. GT is in place running glucerna 1.2 @ 65 ml/hr. No residual present. Colostomy bag in place. JOE not completed, probe unable to be passed. Patient should be treated for total six weeks abx for presumptive endocarditis at this juncture. Hyponatremia resolved, DIVYA resolved, patient stable . Objective Last 24 Hour Vital Signs Date Time Temp Pulse Resp B/P (MAP) Pulse Ox O2 Delivery O2 Flow Rate FiO2 06/12/18 15:00 86 17 30 06/12/18 13:28 82 16 30 06/12/18 12:02 30 06/12/18 12:00 Mechanical Ventilator 06/12/18 12:00 81 06/12/18 11:51 96.7 76 18 114/78 (90) 96 96.7 06/12/18 10:36 83 16 30 06/12/18 09:15 84 17 30 06/12/18 08:00 96.6 87 16 113/79 (90) 100 96.6 06/12/18 08:00 30 06/12/18 08:00 Mechanical Ventilator 06/12/18 08:00 81 06/12/18 07:00 82 17 30 06/12/18 05:06 93 17 30 06/12/18 04:00 Mechanical Ventilator 06/12/18 04:00 80 06/12/18 04:00 97.3 94 20 127/88 (101) 100 97.3 06/12/18 04:00 30 06/12/18 03:23 82 16 30 06/12/18 01:26 82 17 30 06/12/18 00:00 97.7 78 18 114/76 (89) 100 97.7 06/12/18 00:00 Mechanical Ventilator 06/12/18 00:00 30 06/11/18 23:11 71 17 30 06/11/18 21:04 73 16 30 06/11/18 20:00 77 06/11/18 20:00 78 17 30 06/11/18 20:00 97.7 76 18 118/80 (93) 100 97.7 06/11/18 20:00 Mechanical Ventilator 06/11/18 20:00 30 06/11/18 17:28 79 17 30 General Appearance: no apparent distress, severe distress, on vent EENT: PERRL/EOMI, normal ENT inspection Neck: non-tender, normal alignment, supple Rhythm: NSR Cardiovascular: normal peripheral pulses, normal rate, regular rhythm Respiratory/Chest: chest wall non-tender, lungs clear Abdomen: normal bowel sounds, non tender Extremities: normal range of motion, non-tender Neurologic: house mover II-XII grossly normal Intake and Output 06/11/18 06/12/18 19:00 07:00 Intake Total 670 ml 740 ml Output Total 675 ml 650 ml Balance -5 ml 90 ml Free Water 70 ml 140 ml Tube Feeding 600 ml 600 ml Output Urine Total 275 ml 250 ml Stool Total 400 ml 400 ml # Bowel Movements 2 Laboratory Tests Test 06/12/18 04:00 White Blood Count 6.9 K/UL (4.8-10.8) Red Blood Count 5.09 M/UL (4.70-6.10) Hemoglobin 14.4 G/DL (14.2-18.0) Hematocrit 44.3 % (42.0-52.0) Mean Corpuscular Volume 87 FL (80-99) Mean Corpuscular Hemoglobin 28.3 PG (27.0-31.0) Mean Corpuscular Hemoglobin Concent 32.5 G/DL (32.0-36.0) Red Cell Distribution Width 14.9 % (11.6-14.8) H Platelet Count 313 K/UL (150-450) Mean Platelet Volume 7.6 FL (6.5-10.1) Neutrophils (%) (Auto) 50.5 % (45.0-75.0) Lymphocytes (%) (Auto) 28.5 % (20.0-45.0) Monocytes (%) (Auto) 9.7 % (1.0-10.0) Eosinophils (%) (Auto) 9.9 % (0.0-3.0) H Basophils (%) (Auto) 1.4 % (0.0-2.0) Sodium Level 138 MMOL/L (136-145) Potassium Level 3.9 MMOL/L (3.5-5.1) Chloride Level 101 MMOL/L (98-107) Carbon Dioxide Level 23 MMOL/L (21-32) Anion Gap 14 mmol/L (5-15) Blood Urea Nitrogen 19 mg/dL (7-18) H Creatinine 1.1 MG/DL (0.55-1.30) Estimat Glomerular Filtration Rate > 60 mL/min (>60) Glucose Level 113 MG/DL (74-106) H Calcium Level 10.6 MG/DL (8.5-10.1) H Kali Owens M.D. Jun 12, 2018 16:38
[2018-06-12 16:50] VITALS: BP 125/92
[2018-06-12 20:00] VITALS: BP 125/88
[2018-06-12] MEDS: Dyna-Hex 2% Top Sol 2oz TOPIC SCH (20:47)
[2018-06-12] MEDS: Miralax 17gm pkt GT SCH (20:47)
[2018-06-13] VITALS: BP 108/75
--- NOTE | 2018-06-13 00:45 | Progress Note ---
DATE: 06/12/2018 SUBJECTIVE: The patient remained stable. PHYSICAL EXAMINATION: VITAL SIGNS: Blood pressure 125/88, his pulse is 84, respirations 17, and temperature 98.1. HEENT: Eyes were normal. ENT, mucous membranes were moist and intact. NECK: Supple with no JVD without lymph nodes. Tracheostomy site is clean. LUNGS: Clear without rhonchi, rales, or wheezing. Secretions are small, thin, and whitish. HEART: Normal sounds with regular heart beat. There is no tachycardia at rest. ABDOMEN: Soft and nontender with normal bowel sounds. Gastrostomy site is clean. EXTREMITIES: Warm without cyanosis, clubbing, or edema. LABORATORY DATA: Hemoglobin is 14.4, hematocrit 44.3 with MCV of 87, WBC of 6.9, and platelets of 303,000. His BUN and creatinine is 19 and 1.1 respectively. Sodium is 136, potassium 3.9, chloride 101, CO2 is 23. His calcium is 10.6. IMPRESSION: 1. The patient is status post cerebral hemorrhage. There are no cognitive changes. The patient is stable from neurological point of view. 2. The patient has seizure disorder and seizure. Continue Levetiracetam 1000 mg twice a day. 3. The patient with respiratory failure. We will continue the same respiratory setting. We will continue with albuterol sulfate, ipratropium bromide inhalation therapy every six hours. 4. The patient has tracheostomy. Continue to monitor O2 saturation and bronchial secretion. 5. The patient has gastrostomy feeding. No gastric residual. Continue with Fibersource per hour. Repeat laboratory tests will be done in the a.m. Sariah Bhat M.D. DR: AUSTEN JOB#: [id number] CC:
[2018-06-13 03:52] VITALS: BP 112/76
[2018-06-13] MEDS: levETIRAcetam 500mg/5ml Liquid GT SCH ×3 (05:45→20:57)
[2018-06-13] MEDS: NovoLOG Insulin Flexpen SUBQ SCH ×5 (05:47→23:47)
[2018-06-13 06:27] LABS: BASOPHILS % (AUTO) 1.5 % (0.0-2.0); EOSINOPHILS % (AUTO) 9.1 % (0.0-3.0); HEMATOCRIT 47.1 % (42.0-52.0); HEMOGLOBIN 14.7 G/DL (14.2-18.0); MEAN CORPUSCULAR VOLUME 87 FL (80-99); MONOCYTES % (AUTO) 10.1 % (1.0-10.0); NEUTROPHILS % (AUTO) 50.3 % (45.0-75.0); PLATELET COUNT 323 K/UL (150-450); RED BLOOD COUNT 5.39 M/UL (4.70-6.10); RED CELL DISTRIBUTION WIDTH 14.9 % (11.6-14.8); WHITE BLOOD COUNT 7.3 K/UL (4.8-10.8)
[2018-06-13 06:40] LABS: ALANINE AMINOTRANSFERASE 47 U/L (12-78); ALBUMIN 3.8 G/DL (3.4-5.0); ALBUMIN/GLOBULIN RATIO 0.7 (1.0-2.7); ALKALINE PHOSPHATASE 143 U/L (46-116); ANION GAP 13 mmol/L (5-15); ASPARTATE AMINO TRANSFERASE 22 U/L (15-37); BILIRUBIN,TOTAL 0.5 MG/DL (0.2-1.0); BLOOD UREA NITROGEN 18 mg/dL (7-18); CALCIUM 10.3 MG/DL (8.5-10.1); CARBON DIOXIDE 23 MMOL/L (21-32); CHLORIDE 102 MMOL/L (98-107); CREATININE 1.1 MG/DL (0.55-1.30); PHOSPHORUS 2.7 MG/DL (2.5-4.9); POTASSIUM 4.3 MMOL/L (3.5-5.1); SODIUM 138 MMOL/L (136-145)
[2018-06-13] MEDS: Vancomycin 1.5gm/D5W 250ml 250 ML IVPB SCH (07:10)
[2018-06-13 08:00] VITALS: BP 123/84
[2018-06-13] MEDS: Heparin 5000 units/ml inj SUBQ SCH ×2 (08:38→20:56)
--- NOTE | 2018-06-13 10:57 | Pulmonolgy Critical Care Note ---
Critical Care - Asmt/Plan Problems: (1) Acute on chronic respiratory failure (2) Acute on chronic renal insufficiency (3) Severe sepsis (4) Vegetative state (5) Colostomy in place (6) Diabetes mellitus Respiratory: monitor respiratory rate Cardiac: continue pressors Infectious Disease: continue antibiotics Gastrointestinal: continue feedings/current rate Endocrine: monitor blood sugar, check TSH Hematologic: monitor H/H, transfuse if hgb<8.5 Neurologic: keep patient comfortable Affect: PRN ativan Prophylaxis: Heparin Notes Reviewed: cardio Discussed with: nurses, consultants, top case assemblerfood services manager - Objective Last 24 Hour Vital Signs Date Time Temp Pulse Resp B/P (MAP) Pulse Ox O2 Delivery O2 Flow Rate FiO2 06/13/18 10:38 86 16 30 06/13/18 08:40 85 16 30 06/13/18 08:00 30 06/13/18 08:00 Mechanical Ventilator 06/13/18 08:00 82 06/13/18 08:00 97.9 84 16 123/84 (97) 100 97.9 06/13/18 06:44 82 16 30 06/13/18 05:13 78 16 30 06/13/18 04:06 Mechanical Ventilator 06/13/18 04:00 81 06/13/18 04:00 30 06/13/18 03:52 98.2 78 16 112/76 (88) 100 98.2 06/13/18 03:16 82 16 30 06/13/18 01:25 82 16 30 06/13/18 00:00 97.3 83 16 108/75 (86) 100 97.3 06/13/18 00:00 Mechanical Ventilator 06/13/18 00:00 85 06/13/18 00:00 30 06/12/18 23:05 89 17 30 06/12/18 21:29 84 17 30 06/12/18 20:00 90 06/12/18 20:00 98.1 104 18 125/88 (100) 100 98.1 06/12/18 20:00 30 06/12/18 20:00 Mechanical Ventilator 06/12/18 19:07 83 18 30 06/12/18 17:25 84 16 30 06/12/18 16:52 30 06/12/18 16:50 Mechanical Ventilator 06/12/18 16:50 98.0 80 18 125/92 (103) 100 98.0 06/12/18 16:00 80 06/12/18 15:00 86 17 30 06/12/18 13:28 82 16 30 06/12/18 12:02 30 06/12/18 12:00 Mechanical Ventilator 06/12/18 12:00 81 06/12/18 11:51 96.7 76 18 114/78 (90) 96 96.7 Status: awake, obtunded Condition: critical HEENT: atraumatic Neck: full ROM Heart: HR/BP stable, HR/BP unstable Abdomen: soft, active bowel sounds Extremities: no C/C/E Accucheck: 130 Critical Care - Subjective ROS Limited/Unobtainable: No Condition: critical EKG Rhythm: Sinus Rhythm FI02: 30 Vent Support Breath Rate: 16 Vent Support Mode: AC Vent Tidal Volume: 600 Sputum Amount: Small PEEP: 5.0 PIP: 30 Tube Feeding Amount: 50 I&O: Intake and Output 06/12/18 06/13/18 19:00 07:00 Intake Total 690 ml 650 ml Output Total 675 ml 700 ml Balance 15 ml -50 ml Free Water 90 ml 50 ml Tube Feeding 600 ml 550 ml Other 50 ml Output Urine Total 275 ml 250 ml Stool Total 400 ml 450 ml # Bowel Movements 2 Labs: Laboratory Tests Test 06/13/18 06:15 White Blood Count 7.3 K/UL (4.8-10.8) Red Blood Count 5.39 M/UL (4.70-6.10) Hemoglobin 14.7 G/DL (14.2-18.0) Hematocrit 47.1 % (42.0-52.0) Mean Corpuscular Volume 87 FL (80-99) Mean Corpuscular Hemoglobin 27.2 PG (27.0-31.0) Mean Corpuscular Hemoglobin Concent 31.2 G/DL (32.0-36.0) L Red Cell Distribution Width 14.9 % (11.6-14.8) H Platelet Count 323 K/UL (150-450) Mean Platelet Volume 8.5 FL (6.5-10.1) Neutrophils (%) (Auto) 50.3 % (45.0-75.0) Lymphocytes (%) (Auto) 29.0 % (20.0-45.0) Monocytes (%) (Auto) 10.1 % (1.0-10.0) H Eosinophils (%) (Auto) 9.1 % (0.0-3.0) H Basophils (%) (Auto) 1.5 % (0.0-2.0) Sodium Level 138 MMOL/L (136-145) Potassium Level 4.3 MMOL/L (3.5-5.1) Chloride Level 102 MMOL/L (98-107) Carbon Dioxide Level 23 MMOL/L (21-32) Anion Gap 13 mmol/L (5-15) Blood Urea Nitrogen 18 mg/dL (7-18) Creatinine 1.1 MG/DL (0.55-1.30) Estimat Glomerular Filtration Rate > 60 mL/min (>60) Glucose Level 115 MG/DL (74-106) H Calcium Level 10.3 MG/DL (8.5-10.1) H Phosphorus Level 2.7 MG/DL (2.5-4.9) Magnesium Level 2.0 MG/DL (1.8-2.4) Total Bilirubin 0.5 MG/DL (0.2-1.0) Aspartate Amino Transf (AST/SGOT) 22 U/L (15-37) Alanine Aminotransferase (ALT/SGPT) 47 U/L (12-78) Alkaline Phosphatase 143 U/L (46-116) H Total Protein 9.2 G/DL (6.4-8.2) H Albumin 3.8 G/DL (3.4-5.0) Globulin 5.4 g/dL Albumin/Globulin Ratio 0.7 (1.0-2.7) L Vancomycin Level Trough 17.3 ug/mL (5.0-12.0) H Nico Goetz MD Jun 13, 2018 10:57
--- NOTE | 2018-06-13 11:31 | Infectious Diseases Prog Note ---
Assessment/Plan Assessment/Plan Assessment/Plan Sepsis, SP- 2ry to UTI and Bacteremia Blood cultures postive 01/23 bottles with GPC Unclear source will need to R/O Endocarditis Possible PNA initially -u/a wbc 40-60, nit neg, leuk +2; ucx >100k E. aerogenes (S cefepime, cipro/ levo; R Zosyn) -BCX 01/23 E. aerogenes, prob Amp C (S cefepime, cipro/levo; R Zosyn), P. mirabilis ESBL (S Zosyn, Ertapenem); repeta 05/16 10/25 CoNS (suspect contaminant) , 05/18 Staph f/u final results if CoNS may need TTE and IE work up. -CXR 05/17: Increased left pleural effusion, over 3 days. Overall decreased interstitial congestion. Right infrahilar atelectasis -CXR: Cardiomegaly. Mild interstitial congestion. Suspect small bilateral pleural effusions -CT abd/p: Right lower quadrant double barrel colostomy, as described. Small peristomal hernia contains bowel loops without evidence of obstruction or strangulation. Left renal staghorn calculus. Bilateral intrarenal calyceal calculi. Borderline hydronephrosis on the right without evidence of downstream obstructive lesion. May indicate mild ureteral pelvic junction obstruction. Somewhat atrophic left kidney. Inspissated contrast ball within the distal sigmoid colon. Gastrostomy in good position. Nonspecific bilateral perinephric fat stranding, could indicate pyelonephritis or could be chronic. Newberry catheter in place. Apparent bladder wall thickening, possibly an artifact of under distention but cystitis is not excludable, particularly in view of mild perivesical fat stranding. Bilateral pulmonary parenchymal atelectasis and consolidation -Blood Cx from PICC CoNS 2/2 bottles Peripheral Neg- (May be contaminant but will repeat blood Cx given new leukocytosis if positive will need ECHO. - Blood Cx 05/20/18 - GPC - Will need TTE for IE work up and the PICC removed. PICC line infection/colonization - TTE negative. Blood cultures only positive from PICC. Not positive from Peripheral - Will repeat blood cultures x 1 to confirm clearance after PICC replaced. Los suspicion for IE. - PICC replace 05/22/18 Fever/Leukocytosis; Resolved - i recurs Re-evaluate lines, Diarrhea? C. dif? DIVYA, improving Lactic acidosis, resolved chronic resp failure trach/vent dependant BPH GERD HTN DM2 seizure disorder colostomy s/p GT constipation VRE and MRSA colonized Plan: - Continue empiric IV Vancomycin # for bacteremia/line infection cant r/o Endocarditis -Abx end date 07/03/18 if JOE attempted again and negative then ed date would be 06/05/18 -weekly CBC, BMP, vanco through -05/30 SP Ertapenem #14 -05/17 SP Zosyn #4 JOE could not be performed due to technical problems - Unable to repeat JOE so patient should be treated for presumed endocarditis for 6 weeks - Monitor CBC/CMP, temperatures - Pulmonary care Thank you for this consultation. Will continue to follow along with you. Subjective Allergies: Coded Allergies: AZTREONAM (Verified Allergy, Unknown, 05/13/18) Subjective afebrile no leukocytosis Objective Vital Signs Last 24 Hour Vital Signs Date Time Temp Pulse Resp B/P (MAP) Pulse Ox O2 Delivery O2 Flow Rate FiO2 06/13/18 10:38 86 16 30 06/13/18 08:40 85 16 30 06/13/18 08:00 30 06/13/18 08:00 Mechanical Ventilator 06/13/18 08:00 82 06/13/18 08:00 97.9 84 16 123/84 (97) 100 97.9 06/13/18 06:44 82 16 30 06/13/18 05:13 78 16 30 06/13/18 04:06 Mechanical Ventilator 06/13/18 04:00 81 06/13/18 04:00 30 06/13/18 03:52 98.2 78 16 112/76 (88) 100 98.2 06/13/18 03:16 82 16 30 06/13/18 01:25 82 16 30 06/13/18 00:00 97.3 83 16 108/75 (86) 100 97.3 06/13/18 00:00 Mechanical Ventilator 06/13/18 00:00 85 06/13/18 00:00 30 06/12/18 23:05 89 17 30 06/12/18 21:29 84 17 30 06/12/18 20:00 90 06/12/18 20:00 98.1 104 18 125/88 (100) 100 98.1 06/12/18 20:00 30 06/12/18 20:00 Mechanical Ventilator 06/12/18 19:07 83 18 30 06/12/18 17:25 84 16 30 06/12/18 16:52 30 06/12/18 16:50 Mechanical Ventilator 06/12/18 16:50 98.0 80 18 125/92 (103) 100 98.0 06/12/18 16:00 80 06/12/18 15:00 86 17 30 06/12/18 13:28 82 16 30 06/12/18 12:02 30 06/12/18 12:00 Mechanical Ventilator 06/12/18 12:00 81 06/12/18 11:51 96.7 76 18 114/78 (90) 96 96.7 Height (Feet): 6 Height (Inches): 0.00 Weight (Pounds): 184 Objective GENERAL: The patient is awake, in no overt distress. HEENT: Extraocular muscles intact. No lymphadenopathy noted. Tracheostomy noted. CARDIOVASCULAR: S1 and S2. Tachycardic. No rubs or gallops. PULMONARY: Mild diffuse expiratory rhonchi with basilar rales. ABDOMEN: Obese and nondistended. The G-tube and stoma noted. EXTREMITIES: No edema. Fair pedal pulses. Laboratory Tests Test 06/13/18 06:15 White Blood Count 7.3 K/UL (4.8-10.8) Red Blood Count 5.39 M/UL (4.70-6.10) Hemoglobin 14.7 G/DL (14.2-18.0) Hematocrit 47.1 % (42.0-52.0) Mean Corpuscular Volume 87 FL (80-99) Mean Corpuscular Hemoglobin 27.2 PG (27.0-31.0) Mean Corpuscular Hemoglobin Concent 31.2 G/DL (32.0-36.0) L Red Cell Distribution Width 14.9 % (11.6-14.8) H Platelet Count 323 K/UL (150-450) Mean Platelet Volume 8.5 FL (6.5-10.1) Neutrophils (%) (Auto) 50.3 % (45.0-75.0) Lymphocytes (%) (Auto) 29.0 % (20.0-45.0) Monocytes (%) (Auto) 10.1 % (1.0-10.0) H Eosinophils (%) (Auto) 9.1 % (0.0-3.0) H Basophils (%) (Auto) 1.5 % (0.0-2.0) Sodium Level 138 MMOL/L (136-145) Potassium Level 4.3 MMOL/L (3.5-5.1) Chloride Level 102 MMOL/L (98-107) Carbon Dioxide Level 23 MMOL/L (21-32) Anion Gap 13 mmol/L (5-15) Blood Urea Nitrogen 18 mg/dL (7-18) Creatinine 1.1 MG/DL (0.55-1.30) Estimat Glomerular Filtration Rate > 60 mL/min (>60) Glucose Level 115 MG/DL (74-106) H Calcium Level 10.3 MG/DL (8.5-10.1) H Phosphorus Level 2.7 MG/DL (2.5-4.9) Magnesium Level 2.0 MG/DL (1.8-2.4) Total Bilirubin 0.5 MG/DL (0.2-1.0) Aspartate Amino Transf (AST/SGOT) 22 U/L (15-37) Alanine Aminotransferase (ALT/SGPT) 47 U/L (12-78) Alkaline Phosphatase 143 U/L (46-116) H Total Protein 9.2 G/DL (6.4-8.2) H Albumin 3.8 G/DL (3.4-5.0) Globulin 5.4 g/dL Albumin/Globulin Ratio 0.7 (1.0-2.7) L Vancomycin Level Trough 17.3 ug/mL (5.0-12.0) H Current Medications Medications (Trade) Dose Ordered Sig/Va Route PRN Reason Start Time Stop Time Status Last Admin Dose Admin Acetaminophen (Tylenol) 650 mg Q4H PRN ORAL FEVER 06/08/18 21:00 07/06/18 20:59 Baclofen (Lioresal) 10 mg EVERY 8 HOURS GT 06/08/18 22:00 07/02/18 20:59 06/13/18 05:45 Chlorhexidine Gluconate (Rebecca-Hex 2%) 1 applic DAILY@1999 TOPIC 06/08/18 22:00 07/08/18 21:59 06/12/18 20:47 Dextrose (Dextrose 50%) 25 ml STAT PRN IV Hypoglycemia 06/08/18 21:45 07/06/18 21:44 Dextrose (Dextrose 50%) 50 ml STAT PRN IV Hypoglycemia 06/08/18 21:45 07/06/18 21:44 Heparin Sodium (Porcine) (Heparin 5000 units/ml) 5,000 units EVERY 12 HOURS SUBQ 06/08/18 22:00 07/08/18 21:59 06/13/18 08:38 Insulin Aspart (NovoLOG) Q6HR SUBQ 06/09/18 00:00 07/07/18 17:29 06/13/18 05:47 Lansoprazole (Prevacid) 30 mg DAILY GT 06/09/18 09:00 07/08/18 08:59 06/13/18 08:38 Levetiracetam (Keppra) 1,000 mg Q8HR GT 06/08/18 22:00 07/06/18 20:59 06/13/18 05:45 Ondansetron HCl (Zofran) 4 mg Q6H PRN IVP Nausea & Vomiting 06/08/18 22:00 07/06/18 15:59 Polyethylene Glycol (Miralax) 17 gm BEDTIME GT 06/08/18 22:00 07/08/18 21:59 06/12/18 20:47 Vancomycin HCl (Vanco rx to dose) 1 ea DAILY PRN MISC PER RX PROTOCOL 06/08/18 21:45 07/08/18 21:44 Vancomycin HCl/ Dextrose 250 ml @ 125 mls/hr Q24H IVPB 06/11/18 07:00 06/16/18 06:59 06/13/18 07:10 Maribel Barrera M.D. Jun 13, 2018 11:31
[2018-06-13 12:00] VITALS: BP 110/79
--- NOTE | 2018-06-13 12:17 | GI Progress Note ---
Assessment/Plan Problems: (1) Parastomal hernia ICD Codes: K43.5 - Parastomal hernia without obstruction or gangrene SNOMED: 124302677 Qualifiers: Qualified Codes: K43.5 - Parastomal hernia without obstruction or gangrene (2) Stoma malfunction SNOMED: 907300830 (3) Colostomy in place ICD Codes: Z93.3 - Colostomy status SNOMED: 685647107, 380353568 (4) Vegetative state ICD Codes: R40.3 - Persistent vegetative state SNOMED: 91745279 (5) Diabetes mellitus ICD Codes: E11.9 - Type 2 diabetes mellitus without complications SNOMED: 46403653 (6) Acute on chronic respiratory failure ICD Codes: J96.20 - Acute and chronic respiratory failure, unspecified whether with hypoxia or hypercapnia SNOMED: 36136436 (7) Severe sepsis ICD Codes: A41.9 - Sepsis, unspecified organism; R65.20 - Severe sepsis without septic shock SNOMED: 28478046 Status: stable Status Narrative Discussed with Dr. Prater. Assessment/Plan parastomal >> no s/sx of infection. no obstruction. anemia work up reviewed >> iron deficiency G tube dependent hepatitis panel negative OB negative supportive care monitor H&H, prn transfusions venofer ppi GTFs per RD, adv to goal GT site care daily/prn abx bowel regime fu labs dc planning The patient was seen and examined at bedside and all new and available data was reviewed in the patients chart. I agree with the above findings, impression and plan. (Patient seen earlier today. Signature stamp does not reflect patient encounter time.). - Dae Prater MD Subjective Subjective limited Objective Last 24 Hour Vital Signs Date Time Temp Pulse Resp B/P (MAP) Pulse Ox O2 Delivery O2 Flow Rate FiO2 06/13/18 10:38 86 16 30 06/13/18 08:40 85 16 30 06/13/18 08:00 30 06/13/18 08:00 Mechanical Ventilator 06/13/18 08:00 82 06/13/18 08:00 97.9 84 16 123/84 (97) 100 97.9 06/13/18 06:44 82 16 30 06/13/18 05:13 78 16 30 06/13/18 04:06 Mechanical Ventilator 06/13/18 04:00 81 06/13/18 04:00 30 06/13/18 03:52 98.2 78 16 112/76 (88) 100 98.2 06/13/18 03:16 82 16 30 06/13/18 01:25 82 16 30 06/13/18 00:00 97.3 83 16 108/75 (86) 100 97.3 06/13/18 00:00 Mechanical Ventilator 06/13/18 00:00 85 06/13/18 00:00 30 06/12/18 23:05 89 17 30 06/12/18 21:29 84 17 30 06/12/18 20:00 90 06/12/18 20:00 98.1 104 18 125/88 (100) 100 98.1 06/12/18 20:00 30 06/12/18 20:00 Mechanical Ventilator 06/12/18 19:07 83 18 30 06/12/18 17:25 84 16 30 06/12/18 16:52 30 06/12/18 16:50 Mechanical Ventilator 06/12/18 16:50 98.0 80 18 125/92 (103) 100 98.0 06/12/18 16:00 80 06/12/18 15:00 86 17 30 06/12/18 13:28 82 16 30 Intake and Output 06/12/18 06/13/18 19:00 07:00 Intake Total 690 ml 650 ml Output Total 675 ml 700 ml Balance 15 ml -50 ml Free Water 90 ml 50 ml Tube Feeding 600 ml 550 ml Other 50 ml Output Urine Total 275 ml 250 ml Stool Total 400 ml 450 ml # Bowel Movements 2 Laboratory Tests Test 06/13/18 06:15 White Blood Count 7.3 K/UL (4.8-10.8) Red Blood Count 5.39 M/UL (4.70-6.10) Hemoglobin 14.7 G/DL (14.2-18.0) Hematocrit 47.1 % (42.0-52.0) Mean Corpuscular Volume 87 FL (80-99) Mean Corpuscular Hemoglobin 27.2 PG (27.0-31.0) Mean Corpuscular Hemoglobin Concent 31.2 G/DL (32.0-36.0) L Red Cell Distribution Width 14.9 % (11.6-14.8) H Platelet Count 323 K/UL (150-450) Mean Platelet Volume 8.5 FL (6.5-10.1) Neutrophils (%) (Auto) 50.3 % (45.0-75.0) Lymphocytes (%) (Auto) 29.0 % (20.0-45.0) Monocytes (%) (Auto) 10.1 % (1.0-10.0) H Eosinophils (%) (Auto) 9.1 % (0.0-3.0) H Basophils (%) (Auto) 1.5 % (0.0-2.0) Sodium Level 138 MMOL/L (136-145) Potassium Level 4.3 MMOL/L (3.5-5.1) Chloride Level 102 MMOL/L (98-107) Carbon Dioxide Level 23 MMOL/L (21-32) Anion Gap 13 mmol/L (5-15) Blood Urea Nitrogen 18 mg/dL (7-18) Creatinine 1.1 MG/DL (0.55-1.30) Estimat Glomerular Filtration Rate > 60 mL/min (>60) Glucose Level 115 MG/DL (74-106) H Calcium Level 10.3 MG/DL (8.5-10.1) H Phosphorus Level 2.7 MG/DL (2.5-4.9) Magnesium Level 2.0 MG/DL (1.8-2.4) Total Bilirubin 0.5 MG/DL (0.2-1.0) Aspartate Amino Transf (AST/SGOT) 22 U/L (15-37) Alanine Aminotransferase (ALT/SGPT) 47 U/L (12-78) Alkaline Phosphatase 143 U/L (46-116) H Total Protein 9.2 G/DL (6.4-8.2) H Albumin 3.8 G/DL (3.4-5.0) Globulin 5.4 g/dL Albumin/Globulin Ratio 0.7 (1.0-2.7) L Vancomycin Level Trough 17.3 ug/mL (5.0-12.0) H Height (Feet): 6 Height (Inches): 0.00 Weight (Pounds): 184 General Appearance: no apparent distress Cardiovascular: normal rate Respiratory/Chest: normal breath sounds, no respiratory distress Abdominal Exam: normal bowel sounds, non tender, soft, GT site - c/d/i, other - ostomy Extremities: non-tender Boyd Emmanuel [employer] SUPERINTENDENT Jun 13, 2018 12:17
[2018-06-13 16:00] VITALS: BP 122/80
[2018-06-13 20:00] VITALS: BP 126/76
[2018-06-13] MEDS: Dyna-Hex 2% Top Sol 2oz TOPIC SCH (20:55)
[2018-06-13] MEDS: Miralax 17gm pkt GT SCH (20:55)
--- NOTE | 2018-06-13 22:23 | Cardiology Progress Note ---
Assessment/Plan Status: stable Assessment/Plan Assessment: (1) Acute on chronic respiratory failure (2) Acute on chronic renal insufficiency (3) Severe sepsis (4) Vegetative state (5) Colostomy in place (6) Diabetes mellitus Plan: Continue antibiotics Echocardiogram reviewed- no endocarditis, JOE unable to be performed Patient afebrile, normal WBC otherwise Continue trach care and tube feeds Continue keppra for seizures Continue abx treatment for six weeks via PICC line until 07/06 Dispo planning Subjective Cardiovascular: Reports: no symptoms Respiratory: Reports: no symptoms Gastrointestinal/Abdominal: Reports: no symptoms Genitourinary: Reports: no symptoms Subjective Afebrile vitals stable, Telemetry shows sinus rhythm. No acute events. Left pleural effusion unchanged. Ventilator settings: portex 7, AC 16, TV: 600, FiO2: 30%, PEEP: 5. GT is in place running glucerna 1.2 @ 65 ml/hr. No residual present. Colostomy bag in place. JOE not completed, probe unable to be passed. Patient should be treated for total six weeks abx for presumptive endocarditis at this juncture. Hyponatremia resolved, DIVYA resolved, patient stable . Objective Last 24 Hour Vital Signs Date Time Temp Pulse Resp B/P (MAP) Pulse Ox O2 Delivery O2 Flow Rate FiO2 06/13/18 21:15 94 16 30 06/13/18 20:00 98.1 96 16 126/76 (93) 98 98.1 06/13/18 20:00 Mechanical Ventilator 06/13/18 20:00 30 06/13/18 19:12 95 16 30 06/13/18 19:07 95 06/13/18 17:03 89 16 30 06/13/18 16:00 97.9 88 16 122/80 (94) 99 97.9 06/13/18 16:00 Mechanical Ventilator 06/13/18 16:00 30 06/13/18 16:00 94 06/13/18 14:51 84 16 30 06/13/18 13:00 84 16 30 06/13/18 12:00 30 06/13/18 12:00 Mechanical Ventilator 06/13/18 12:00 86 06/13/18 12:00 98.1 87 16 110/79 (89) 99 98.1 06/13/18 10:38 86 16 30 06/13/18 08:40 85 16 30 06/13/18 08:00 30 06/13/18 08:00 Mechanical Ventilator 06/13/18 08:00 82 06/13/18 08:00 97.9 84 16 123/84 (97) 100 97.9 06/13/18 06:44 82 16 30 06/13/18 05:13 78 16 30 06/13/18 04:06 Mechanical Ventilator 06/13/18 04:00 81 06/13/18 04:00 30 06/13/18 03:52 98.2 78 16 112/76 (88) 100 98.2 06/13/18 03:16 82 16 30 06/13/18 01:25 82 16 30 06/13/18 00:00 97.3 83 16 108/75 (86) 100 97.3 06/13/18 00:00 Mechanical Ventilator 06/13/18 00:00 85 06/13/18 00:00 30 06/12/18 23:05 89 17 30 General Appearance: no apparent distress, on vent EENT: PERRL/EOMI, normal ENT inspection Neck: non-tender, normal alignment Rhythm: NSR Cardiovascular: normal peripheral pulses, normal rate Respiratory/Chest: chest wall non-tender, lungs clear Abdomen: normal bowel sounds, non tender Extremities: normal range of motion, non-tender 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, no motor/sensory deficits Intake and Output 06/12/18 06/13/18 19:00 07:00 Intake Total 690 ml 700 ml Output Total 675 ml 700 ml Balance 15 ml 0 ml Free Water 90 ml 50 ml Tube Feeding 600 ml 600 ml Other 50 ml Output Urine Total 275 ml 250 ml Stool Total 400 ml 450 ml # Bowel Movements 2 Laboratory Tests Test 06/13/18 06:15 White Blood Count 7.3 K/UL (4.8-10.8) Red Blood Count 5.39 M/UL (4.70-6.10) Hemoglobin 14.7 G/DL (14.2-18.0) Hematocrit 47.1 % (42.0-52.0) Mean Corpuscular Volume 87 FL (80-99) Mean Corpuscular Hemoglobin 27.2 PG (27.0-31.0) Mean Corpuscular Hemoglobin Concent 31.2 G/DL (32.0-36.0) L Red Cell Distribution Width 14.9 % (11.6-14.8) H Platelet Count 323 K/UL (150-450) Mean Platelet Volume 8.5 FL (6.5-10.1) Neutrophils (%) (Auto) 50.3 % (45.0-75.0) Lymphocytes (%) (Auto) 29.0 % (20.0-45.0) Monocytes (%) (Auto) 10.1 % (1.0-10.0) H Eosinophils (%) (Auto) 9.1 % (0.0-3.0) H Basophils (%) (Auto) 1.5 % (0.0-2.0) Sodium Level 138 MMOL/L (136-145) Potassium Level 4.3 MMOL/L (3.5-5.1) Chloride Level 102 MMOL/L (98-107) Carbon Dioxide Level 23 MMOL/L (21-32) Anion Gap 13 mmol/L (5-15) Blood Urea Nitrogen 18 mg/dL (7-18) Creatinine 1.1 MG/DL (0.55-1.30) Estimat Glomerular Filtration Rate > 60 mL/min (>60) Glucose Level 115 MG/DL (74-106) H Calcium Level 10.3 MG/DL (8.5-10.1) H Phosphorus Level 2.7 MG/DL (2.5-4.9) Magnesium Level 2.0 MG/DL (1.8-2.4) Total Bilirubin 0.5 MG/DL (0.2-1.0) Aspartate Amino Transf (AST/SGOT) 22 U/L (15-37) Alanine Aminotransferase (ALT/SGPT) 47 U/L (12-78) Alkaline Phosphatase 143 U/L (46-116) H Total Protein 9.2 G/DL (6.4-8.2) H Albumin 3.8 G/DL (3.4-5.0) Globulin 5.4 g/dL Albumin/Globulin Ratio 0.7 (1.0-2.7) L Vancomycin Level Trough 17.3 ug/mL (5.0-12.0) H Kali Owens M.D. Jun 13, 2018 22:23
[2018-06-14] VITALS: BP 130/71
[2018-06-14 04:00] VITALS: BP 133/74
--- NOTE | 2018-06-14 04:45 | Progress Note ---
DATE: 06/13/2018 SUBJECTIVE: The patient is awake, alert, afebrile, and hemodynamically stable. PHYSICAL EXAMINATION: VITAL SIGNS: Blood pressure 126/76, pulse is 96, respirations 16, and temperature 98.1 degrees. HEENT: Eyes were normal. ENT, mucous membranes were moist and intact. NECK: Supple with no JVD without lymph nodes. Tracheostomy site is clean. LUNGS: Clear without rhonchi, rales, or wheezing. Secretions are small, thin, and hodgson. HEART: Normal sounds with regular beats. There is no tachycardia at rest. ABDOMEN: Soft and nontender with normal bowel sounds. Gastrostomy site is clean. EXTREMITIES: Warm without cyanosis, clubbing, or edema. LABORATORY AND DIAGNOSTIC DATA: His hemoglobin is 14.7, hematocrit 37.1 with MCV of 87, WBC of 7.3 and platelets is 323. His BUN and creatinine are 8 and 1.1 respectively. His sodium is 138, potassium 4.3, chloride 102, and CO2 is 23. His calcium was 10.3. SGOT and SGPT are normal. His phosphorus is 2.7. His magnesium is 2.0. IMPRESSION AND PLAN: The patient has been in stable condition. Repeat laboratory tests will be done in the morning. Sariah Bhat M.D. DR: ELISSA JOB#: [id number] CC:
[2018-06-14] MEDS: levETIRAcetam 500mg/5ml Liquid GT SCH ×3 (05:16→21:34)
[2018-06-14] MEDS: NovoLOG Insulin Flexpen SUBQ SCH ×3 (05:17→17:57)
[2018-06-14] MEDS: Vancomycin 1.5gm/D5W 250ml 250 ML IVPB SCH (06:09)
[2018-06-14 06:10] LABS: BASOPHILS % (AUTO) 1.5 % (0.0-2.0); HEMOGLOBIN 13.8 G/DL (14.2-18.0); LYMPHOCYTES % (AUTO) 28.1 % (20.0-45.0); MEAN CORPUSCULAR VOLUME 88 FL (80-99); MONOCYTES % (AUTO) 10.7 % (1.0-10.0); NEUTROPHILS % (AUTO) 52.7 % (45.0-75.0); PLATELET COUNT 320 K/UL (150-450); RED CELL DISTRIBUTION WIDTH 14.8 % (11.6-14.8); WHITE BLOOD COUNT 7.4 K/UL (4.8-10.8)
[2018-06-14 06:18] LABS: ANION GAP 14 mmol/L (5-15); BLOOD UREA NITROGEN 18 mg/dL (7-18); CALCIUM 10.4 MG/DL (8.5-10.1); CARBON DIOXIDE 22 MMOL/L (21-32); CHLORIDE 103 MMOL/L (98-107); CREATININE 1.3 MG/DL (0.55-1.30); POTASSIUM 4.4 MMOL/L (3.5-5.1); SODIUM 139 MMOL/L (136-145)
[2018-06-14 08:00] VITALS: BP 120/86
[2018-06-14] MEDS: Heparin 5000 units/ml inj SUBQ SCH ×2 (08:19→21:36)
--- NOTE | 2018-06-14 11:20 | Pulmonolgy Critical Care Note ---
Critical Care - Asmt/Plan Problems: (1) Acute on chronic respiratory failure (2) Acute on chronic renal insufficiency (3) Severe sepsis (4) Vegetative state (5) Colostomy in place (6) Diabetes mellitus Respiratory: monitor respiratory rate, adjust FIO2, CXR Cardiac: continue to monitor HR/BP Renal: F/U I&O Infectious Disease: check cultures Gastrointestinal: continue feedings/current rate Endocrine: check TSH Neurologic: PRN Morphine Prophylaxis: Protonix, Heparin Time Spent (Minutes): 40 Critical Care - Objective Last 24 Hour Vital Signs Date Time Temp Pulse Resp B/P (MAP) Pulse Ox O2 Delivery O2 Flow Rate FiO2 06/14/18 08:44 88 16 30 06/14/18 08:00 80 06/14/18 08:00 98.4 78 16 120/86 (97) 98 98.4 06/14/18 08:00 Mechanical Ventilator 06/14/18 08:00 30 06/14/18 06:48 83 16 30 06/14/18 04:43 87 16 30 06/14/18 04:00 98.2 87 16 133/74 (93) 97 98.2 06/14/18 04:00 30 06/14/18 04:00 Mechanical Ventilator 06/14/18 03:42 93 06/14/18 02:41 93 16 30 06/14/18 01:20 94 17 30 06/14/18 00:00 98.2 99 22 130/71 (90) 98 98.2 06/14/18 00:00 30 06/14/18 00:00 Mechanical Ventilator 06/13/18 23:31 99 06/13/18 23:08 101 17 30 06/13/18 21:15 94 16 30 06/13/18 20:00 98.1 96 16 126/76 (93) 98 98.1 06/13/18 20:00 Mechanical Ventilator 06/13/18 20:00 30 06/13/18 19:12 95 16 30 06/13/18 19:07 95 06/13/18 17:03 89 16 30 06/13/18 16:00 97.9 88 16 122/80 (94) 99 97.9 06/13/18 16:00 Mechanical Ventilator 06/13/18 16:00 30 06/13/18 16:00 94 06/13/18 14:51 84 16 30 06/13/18 13:00 84 16 30 06/13/18 12:00 30 06/13/18 12:00 Mechanical Ventilator 06/13/18 12:00 86 06/13/18 12:00 98.1 87 16 110/79 (89) 99 98.1 Status: awake, obtunded Condition: critical HEENT: atraumatic Lungs: clear Heart: HR/BP stable Abdomen: soft, active bowel sounds Extremities: no C/C/E Accucheck: 124 Critical Care - Subjective ROS Limited/Unobtainable: No Condition: critical EKG Rhythm: Sinus Rhythm FI02: 30 Vent Support Breath Rate: 16 Vent Support Mode: AC Vent Tidal Volume: 600 Sputum Amount: Scant PEEP: 5.0 PIP: 29 Tube Feeding Amount: 50 I&O: Intake and Output 06/13/18 06/14/18 19:00 07:00 Intake Total 700 ml 720 ml Output Total 700 ml 1450 ml Balance 0 ml -730 ml Free Water 150 ml 120 ml Tube Feeding 550 ml 600 ml Output Urine Total 400 ml 1100 ml Stool Total 300 ml 350 ml Labs: Laboratory Tests Test 06/14/18 04:00 White Blood Count 7.4 K/UL (4.8-10.8) Red Blood Count 5.00 M/UL (4.70-6.10) Hemoglobin 13.8 G/DL (14.2-18.0) L Hematocrit 44.0 % (42.0-52.0) Mean Corpuscular Volume 88 FL (80-99) Mean Corpuscular Hemoglobin 27.6 PG (27.0-31.0) Mean Corpuscular Hemoglobin Concent 31.3 G/DL (32.0-36.0) L Red Cell Distribution Width 14.8 % (11.6-14.8) Platelet Count 320 K/UL (150-450) Mean Platelet Volume 7.4 FL (6.5-10.1) Neutrophils (%) (Auto) 52.7 % (45.0-75.0) Lymphocytes (%) (Auto) 28.1 % (20.0-45.0) Monocytes (%) (Auto) 10.7 % (1.0-10.0) H Eosinophils (%) (Auto) 7.0 % (0.0-3.0) H Basophils (%) (Auto) 1.5 % (0.0-2.0) Sodium Level 139 MMOL/L (136-145) Potassium Level 4.4 MMOL/L (3.5-5.1) Chloride Level 103 MMOL/L (98-107) Carbon Dioxide Level 22 MMOL/L (21-32) Anion Gap 14 mmol/L (5-15) Blood Urea Nitrogen 18 mg/dL (7-18) Creatinine 1.3 MG/DL (0.55-1.30) Estimat Glomerular Filtration Rate > 60 mL/min (>60) Glucose Level 108 MG/DL (74-106) H Calcium Level 10.4 MG/DL (8.5-10.1) H Nico Goetz MD Jun 14, 2018 11:20
--- NOTE | 2018-06-14 11:49 | GI Progress Note ---
Assessment/Plan Problems: (1) Parastomal hernia ICD Codes: K43.5 - Parastomal hernia without obstruction or gangrene SNOMED: 342760495 Qualifiers: Qualified Codes: K43.5 - Parastomal hernia without obstruction or gangrene (2) Stoma malfunction SNOMED: 694754205 (3) Colostomy in place ICD Codes: Z93.3 - Colostomy status SNOMED: 016008752, 836689446 (4) Vegetative state ICD Codes: R40.3 - Persistent vegetative state SNOMED: 40287035 (5) Diabetes mellitus ICD Codes: E11.9 - Type 2 diabetes mellitus without complications SNOMED: 30890388 (6) Acute on chronic respiratory failure ICD Codes: J96.20 - Acute and chronic respiratory failure, unspecified whether with hypoxia or hypercapnia SNOMED: 65925871 (7) Severe sepsis ICD Codes: A41.9 - Sepsis, unspecified organism; R65.20 - Severe sepsis without septic shock SNOMED: 69434718 Status: stable Status Narrative Discussed with Dr. Prater. Assessment/Plan parastomal >> no s/sx of infection. no obstruction. anemia work up reviewed >> iron deficiency G tube dependent hepatitis panel negative OB negative supportive care monitor H&H, prn transfusions venofer ppi GTFs per RD, adv to goal GT site care daily/prn abx bowel regime fu labs dc planning The patient was seen and examined at bedside and all new and available data was reviewed in the patients chart. I agree with the above findings, impression and plan. (Patient seen earlier today. Signature stamp does not reflect patient encounter time.). - Dae Prater MD Subjective Subjective limited Objective Last 24 Hour Vital Signs Date Time Temp Pulse Resp B/P (MAP) Pulse Ox O2 Delivery O2 Flow Rate FiO2 06/14/18 11:37 92 16 30 06/14/18 08:44 88 16 30 06/14/18 08:00 80 06/14/18 08:00 98.4 78 16 120/86 (97) 98 98.4 06/14/18 08:00 Mechanical Ventilator 06/14/18 08:00 30 06/14/18 06:48 83 16 30 06/14/18 04:43 87 16 30 06/14/18 04:00 98.2 87 16 133/74 (93) 97 98.2 06/14/18 04:00 30 06/14/18 04:00 Mechanical Ventilator 06/14/18 03:42 93 06/14/18 02:41 93 16 30 06/14/18 01:20 94 17 30 06/14/18 00:00 98.2 99 22 130/71 (90) 98 98.2 06/14/18 00:00 30 06/14/18 00:00 Mechanical Ventilator 06/13/18 23:31 99 06/13/18 23:08 101 17 30 06/13/18 21:15 94 16 30 06/13/18 20:00 98.1 96 16 126/76 (93) 98 98.1 06/13/18 20:00 Mechanical Ventilator 06/13/18 20:00 30 06/13/18 19:12 95 16 30 06/13/18 19:07 95 06/13/18 17:03 89 16 30 06/13/18 16:00 97.9 88 16 122/80 (94) 99 97.9 06/13/18 16:00 Mechanical Ventilator 06/13/18 16:00 30 06/13/18 16:00 94 06/13/18 14:51 84 16 30 06/13/18 13:00 84 16 30 06/13/18 12:00 30 06/13/18 12:00 Mechanical Ventilator 06/13/18 12:00 86 06/13/18 12:00 98.1 87 16 110/79 (89) 99 98.1 Intake and Output 06/13/18 06/14/18 19:00 07:00 Intake Total 700 ml 720 ml Output Total 700 ml 1450 ml Balance 0 ml -730 ml Free Water 150 ml 120 ml Tube Feeding 550 ml 600 ml Output Urine Total 400 ml 1100 ml Stool Total 300 ml 350 ml Laboratory Tests Test 06/14/18 04:00 White Blood Count 7.4 K/UL (4.8-10.8) Red Blood Count 5.00 M/UL (4.70-6.10) Hemoglobin 13.8 G/DL (14.2-18.0) L Hematocrit 44.0 % (42.0-52.0) Mean Corpuscular Volume 88 FL (80-99) Mean Corpuscular Hemoglobin 27.6 PG (27.0-31.0) Mean Corpuscular Hemoglobin Concent 31.3 G/DL (32.0-36.0) L Red Cell Distribution Width 14.8 % (11.6-14.8) Platelet Count 320 K/UL (150-450) Mean Platelet Volume 7.4 FL (6.5-10.1) Neutrophils (%) (Auto) 52.7 % (45.0-75.0) Lymphocytes (%) (Auto) 28.1 % (20.0-45.0) Monocytes (%) (Auto) 10.7 % (1.0-10.0) H Eosinophils (%) (Auto) 7.0 % (0.0-3.0) H Basophils (%) (Auto) 1.5 % (0.0-2.0) Sodium Level 139 MMOL/L (136-145) Potassium Level 4.4 MMOL/L (3.5-5.1) Chloride Level 103 MMOL/L (98-107) Carbon Dioxide Level 22 MMOL/L (21-32) Anion Gap 14 mmol/L (5-15) Blood Urea Nitrogen 18 mg/dL (7-18) Creatinine 1.3 MG/DL (0.55-1.30) Estimat Glomerular Filtration Rate > 60 mL/min (>60) Glucose Level 108 MG/DL (74-106) H Calcium Level 10.4 MG/DL (8.5-10.1) H Height (Feet): 6 Height (Inches): 0.00 Weight (Pounds): 179 General Appearance: alert Cardiovascular: normal rate Respiratory/Chest: normal breath sounds, other - mech vent Abdominal Exam: GT site, other - colostomy Boyd Emmanuel NP Jun 14, 2018 11:48
[2018-06-14 12:00] VITALS: BP 132/87
--- NOTE | 2018-06-14 12:36 | Cardiology Progress Note ---
Assessment/Plan Status: stable Assessment/Plan Assessment: (1) Acute on chronic respiratory failure (2) Acute on chronic renal insufficiency (3) Severe sepsis (4) Vegetative state (5) Colostomy in place (6) Diabetes mellitus Plan: Continue antibiotics Echocardiogram reviewed- no endocarditis, JOE unable to be performed Patient afebrile, normal WBC otherwise Continue trach care and tube feeds Continue keppra for seizures Continue abx treatment for six weeks via PICC line until 07/06 Dispo planning Subjective Cardiovascular: Reports: no symptoms Respiratory: Reports: no symptoms Gastrointestinal/Abdominal: Reports: no symptoms Genitourinary: Reports: no symptoms Subjective Afebrile vitals stable, Telemetry shows sinus rhythm. No acute events. Left pleural effusion unchanged. Ventilator settings: portex 7, AC 16, TV: 600, FiO2: 30%, PEEP: 5. GT is in place running glucerna 1.2 @ 65 ml/hr. No residual present. Colostomy bag in place. JOE not completed, probe unable to be passed. Patient should be treated for total six weeks abx for presumptive endocarditis at this juncture. Hyponatremia resolved, DIVYA resolved, patient stable . Objective Last 24 Hour Vital Signs Date Time Temp Pulse Resp B/P (MAP) Pulse Ox O2 Delivery O2 Flow Rate FiO2 06/14/18 11:37 92 16 30 06/14/18 08:44 88 16 30 06/14/18 08:00 80 06/14/18 08:00 98.4 78 16 120/86 (97) 98 98.4 06/14/18 08:00 Mechanical Ventilator 06/14/18 08:00 30 06/14/18 06:48 83 16 30 06/14/18 04:43 87 16 30 06/14/18 04:00 98.2 87 16 133/74 (93) 97 98.2 06/14/18 04:00 30 06/14/18 04:00 Mechanical Ventilator 06/14/18 03:42 93 06/14/18 02:41 93 16 30 06/14/18 01:20 94 17 30 06/14/18 00:00 98.2 99 22 130/71 (90) 98 98.2 06/14/18 00:00 30 06/14/18 00:00 Mechanical Ventilator 06/13/18 23:31 99 06/13/18 23:08 101 17 30 06/13/18 21:15 94 16 30 06/13/18 20:00 98.1 96 16 126/76 (93) 98 98.1 06/13/18 20:00 Mechanical Ventilator 06/13/18 20:00 30 06/13/18 19:12 95 16 30 06/13/18 19:07 95 06/13/18 17:03 89 16 30 06/13/18 16:00 97.9 88 16 122/80 (94) 99 97.9 06/13/18 16:00 Mechanical Ventilator 06/13/18 16:00 30 06/13/18 16:00 94 06/13/18 14:51 84 16 30 06/13/18 13:00 84 16 30 General Appearance: no apparent distress EENT: PERRL/EOMI, normal ENT inspection Neck: non-tender, normal alignment Rhythm: SB Cardiovascular: normal peripheral pulses, normal rate Respiratory/Chest: chest wall non-tender, lungs clear Abdomen: normal bowel sounds, non tender, soft Extremities: normal range of motion, non-tender 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, no motor/sensory deficits Intake and Output 06/13/18 06/14/18 19:00 07:00 Intake Total 700 ml 720 ml Output Total 700 ml 1450 ml Balance 0 ml -730 ml Free Water 150 ml 120 ml Tube Feeding 550 ml 600 ml Output Urine Total 400 ml 1100 ml Stool Total 300 ml 350 ml Laboratory Tests Test 06/14/18 04:00 White Blood Count 7.4 K/UL (4.8-10.8) Red Blood Count 5.00 M/UL (4.70-6.10) Hemoglobin 13.8 G/DL (14.2-18.0) L Hematocrit 44.0 % (42.0-52.0) Mean Corpuscular Volume 88 FL (80-99) Mean Corpuscular Hemoglobin 27.6 PG (27.0-31.0) Mean Corpuscular Hemoglobin Concent 31.3 G/DL (32.0-36.0) L Red Cell Distribution Width 14.8 % (11.6-14.8) Platelet Count 320 K/UL (150-450) Mean Platelet Volume 7.4 FL (6.5-10.1) Neutrophils (%) (Auto) 52.7 % (45.0-75.0) Lymphocytes (%) (Auto) 28.1 % (20.0-45.0) Monocytes (%) (Auto) 10.7 % (1.0-10.0) H Eosinophils (%) (Auto) 7.0 % (0.0-3.0) H Basophils (%) (Auto) 1.5 % (0.0-2.0) Sodium Level 139 MMOL/L (136-145) Potassium Level 4.4 MMOL/L (3.5-5.1) Chloride Level 103 MMOL/L (98-107) Carbon Dioxide Level 22 MMOL/L (21-32) Anion Gap 14 mmol/L (5-15) Blood Urea Nitrogen 18 mg/dL (7-18) Creatinine 1.3 MG/DL (0.55-1.30) Estimat Glomerular Filtration Rate > 60 mL/min (>60) Glucose Level 108 MG/DL (74-106) H Calcium Level 10.4 MG/DL (8.5-10.1) H Kali Owens M.D. Jun 14, 2018 12:36
[2018-06-14 16:00] VITALS: BP 111/80
--- NOTE | 2018-06-14 17:49 | Infectious Diseases Prog Note ---
Assessment/Plan Assessment/Plan Assessment/Plan Sepsis, SP- 2ry to UTI and Bacteremia Blood cultures postive 01/23 bottles with GPC Unclear source will need to R/O Endocarditis Possible PNA initially -u/a wbc 40-60, nit neg, leuk +2; ucx >100k E. aerogenes (S cefepime, cipro/ levo; R Zosyn) -BCX 01/23 E. aerogenes, prob Amp C (S cefepime, cipro/levo; R Zosyn), P. mirabilis ESBL (S Zosyn, Ertapenem); repeta 05/16 10/25 CoNS (suspect contaminant) , 05/18 Staph f/u final results if CoNS may need TTE and IE work up. -CXR 05/17: Increased left pleural effusion, over 3 days. Overall decreased interstitial congestion. Right infrahilar atelectasis -CXR: Cardiomegaly. Mild interstitial congestion. Suspect small bilateral pleural effusions -CT abd/p: Right lower quadrant double barrel colostomy, as described. Small peristomal hernia contains bowel loops without evidence of obstruction or strangulation. Left renal staghorn calculus. Bilateral intrarenal calyceal calculi. Borderline hydronephrosis on the right without evidence of downstream obstructive lesion. May indicate mild ureteral pelvic junction obstruction. Somewhat atrophic left kidney. Inspissated contrast ball within the distal sigmoid colon. Gastrostomy in good position. Nonspecific bilateral perinephric fat stranding, could indicate pyelonephritis or could be chronic. Newberry catheter in place. Apparent bladder wall thickening, possibly an artifact of under distention but cystitis is not excludable, particularly in view of mild perivesical fat stranding. Bilateral pulmonary parenchymal atelectasis and consolidation -Blood Cx from PICC CoNS 2/2 bottles Peripheral Neg- (May be contaminant but will repeat blood Cx given new leukocytosis if positive will need ECHO. - Blood Cx 05/20/18 - GPC - Will need TTE for IE work up and the PICC removed. PICC line infection/colonization - TTE negative. Blood cultures only positive from PICC. Not positive from Peripheral - Will repeat blood cultures x 1 to confirm clearance after PICC replaced. Los suspicion for IE. - PICC replace 05/22/18 Fever/Leukocytosis; Resolved - i recurs Re-evaluate lines, Diarrhea? C. dif? DIVYA, improving Lactic acidosis, resolved chronic resp failure trach/vent dependant BPH GERD HTN DM2 seizure disorder colostomy s/p GT constipation VRE and MRSA colonized Plan: - Continue empiric IV Vancomycin # for bacteremia/line infection cant r/o Endocarditis -Abx end date 07/03/18 if JOE attempted again and negative then ed date would be 06/05/18 -weekly CBC, BMP, vanco through -05/30 SP Ertapenem #14 -05/17 SP Zosyn #4 JOE could not be performed due to technical problems - Unable to repeat JOE so patient should be treated for presumed endocarditis for 6 weeks - Monitor CBC/CMP, temperatures - Pulmonary care Thank you for this consultation. Will continue to follow along with you. Subjective Allergies: Coded Allergies: AZTREONAM (Verified Allergy, Unknown, 05/13/18) Subjective afebrile no leukocytosis Objective Vital Signs Last 24 Hour Vital Signs Date Time Temp Pulse Resp B/P (MAP) Pulse Ox O2 Delivery O2 Flow Rate FiO2 06/14/18 16:40 85 16 30 06/14/18 16:00 30 06/14/18 16:00 Mechanical Ventilator 06/14/18 16:00 98.1 91 16 111/80 (90) 98 98.1 06/14/18 16:00 86 06/14/18 14:50 89 16 30 06/14/18 12:52 86 16 30 06/14/18 12:00 Mechanical Ventilator 06/14/18 12:00 88 06/14/18 12:00 97.9 88 16 132/87 (102) 97 97.9 06/14/18 12:00 30 06/14/18 11:37 92 16 30 06/14/18 08:44 88 16 30 06/14/18 08:00 80 06/14/18 08:00 98.4 78 16 120/86 (97) 98 98.4 06/14/18 08:00 Mechanical Ventilator 06/14/18 08:00 30 06/14/18 06:48 83 16 30 06/14/18 04:43 87 16 30 06/14/18 04:00 98.2 87 16 133/74 (93) 97 98.2 06/14/18 04:00 30 06/14/18 04:00 Mechanical Ventilator 06/14/18 03:42 93 06/14/18 02:41 93 16 30 06/14/18 01:20 94 17 30 06/14/18 00:00 98.2 99 22 130/71 (90) 98 98.2 06/14/18 00:00 30 06/14/18 00:00 Mechanical Ventilator 06/13/18 23:31 99 06/13/18 23:08 101 17 30 06/13/18 21:15 94 16 30 06/13/18 20:00 98.1 96 16 126/76 (93) 98 98.1 06/13/18 20:00 Mechanical Ventilator 06/13/18 20:00 30 06/13/18 19:12 95 16 30 06/13/18 19:07 95 Height (Feet): 6 Height (Inches): 0.00 Weight (Pounds): 179 Objective GENERAL: The patient is awake, in no overt distress. HEENT: Extraocular muscles intact. No lymphadenopathy noted. Tracheostomy noted. CARDIOVASCULAR: S1 and S2. Tachycardic. No rubs or gallops. PULMONARY: Mild diffuse expiratory rhonchi with basilar rales. ABDOMEN: Obese and nondistended. The G-tube and stoma noted. EXTREMITIES: No edema. Fair pedal pulses. Laboratory Tests Test 06/14/18 04:00 White Blood Count 7.4 K/UL (4.8-10.8) Red Blood Count 5.00 M/UL (4.70-6.10) Hemoglobin 13.8 G/DL (14.2-18.0) L Hematocrit 44.0 % (42.0-52.0) Mean Corpuscular Volume 88 FL (80-99) Mean Corpuscular Hemoglobin 27.6 PG (27.0-31.0) Mean Corpuscular Hemoglobin Concent 31.3 G/DL (32.0-36.0) L Red Cell Distribution Width 14.8 % (11.6-14.8) Platelet Count 320 K/UL (150-450) Mean Platelet Volume 7.4 FL (6.5-10.1) Neutrophils (%) (Auto) 52.7 % (45.0-75.0) Lymphocytes (%) (Auto) 28.1 % (20.0-45.0) Monocytes (%) (Auto) 10.7 % (1.0-10.0) H Eosinophils (%) (Auto) 7.0 % (0.0-3.0) H Basophils (%) (Auto) 1.5 % (0.0-2.0) Sodium Level 139 MMOL/L (136-145) Potassium Level 4.4 MMOL/L (3.5-5.1) Chloride Level 103 MMOL/L (98-107) Carbon Dioxide Level 22 MMOL/L (21-32) Anion Gap 14 mmol/L (5-15) Blood Urea Nitrogen 18 mg/dL (7-18) Creatinine 1.3 MG/DL (0.55-1.30) Estimat Glomerular Filtration Rate > 60 mL/min (>60) Glucose Level 108 MG/DL (74-106) H Calcium Level 10.4 MG/DL (8.5-10.1) H Current Medications Medications (Trade) Dose Ordered Sig/Va Route PRN Reason Start Time Stop Time Status Last Admin Dose Admin Acetaminophen (Tylenol) 650 mg Q4H PRN ORAL FEVER 06/08/18 21:00 07/06/18 20:59 Baclofen (Lioresal) 10 mg EVERY 8 HOURS GT 06/08/18 22:00 07/02/18 20:59 06/14/18 15:16 Chlorhexidine Gluconate (Rebecca-Hex 2%) 1 applic DAILY@1999 TOPIC 06/08/18 22:00 07/08/18 21:59 06/13/18 20:55 Dextrose (Dextrose 50%) 25 ml STAT PRN IV Hypoglycemia 06/08/18 21:45 07/06/18 21:44 Dextrose (Dextrose 50%) 50 ml STAT PRN IV Hypoglycemia 06/08/18 21:45 07/06/18 21:44 Heparin Sodium (Porcine) (Heparin 5000 units/ml) 5,000 units EVERY 12 HOURS SUBQ 06/08/18 22:00 07/08/18 21:59 06/14/18 08:19 Insulin Aspart (NovoLOG) Q6HR SUBQ 06/09/18 00:00 07/07/18 17:29 06/14/18 12:35 Lansoprazole (Prevacid) 30 mg DAILY GT 06/09/18 09:00 07/08/18 08:59 06/14/18 08:17 Levetiracetam (Keppra) 1,000 mg Q8HR GT 06/08/18 22:00 07/06/18 20:59 06/14/18 15:16 Ondansetron HCl (Zofran) 4 mg Q6H PRN IVP Nausea & Vomiting 06/08/18 22:00 07/06/18 15:59 Polyethylene Glycol (Miralax) 17 gm BEDTIME GT 06/08/18 22:00 07/08/18 21:59 06/13/18 20:55 Vancomycin HCl (Vanco rx to dose) 1 ea DAILY PRN MISC PER RX PROTOCOL 06/08/18 21:45 07/08/18 21:44 Vancomycin HCl/ Dextrose 250 ml @ 125 mls/hr Q24H IVPB 06/11/18 07:00 06/16/18 06:59 06/14/18 06:09 Maribel Barrera M.D. Jun 14, 2018 17:49
[2018-06-14 20:00] VITALS: BP 128/78
[2018-06-14] MEDS: Dyna-Hex 2% Top Sol 2oz TOPIC SCH (21:34)
[2018-06-14] MEDS: Miralax 17gm pkt GT SCH (21:34)
[2018-06-15] VITALS: BP 128/85
--- NOTE | 2018-06-15 03:00 | Progress Note ---
DATE: 06/14/2018 SUBJECTIVE: The patient is awake, alert, afebrile, and hemodynamically stable. PHYSICAL EXAMINATION: VITAL SIGNS: Blood pressure is 178/78. His pulse is 94, respirations of 16 and temperature is 98.2 degrees. HEENT: Eyes were normal. ENT, mucous membranes were moist and intact. NECK: Supple with no JVD without lymph nodes. Tracheostomy site is clean. LUNGS: Clear without rhonchi, rales, or wheezing. Secretions are small, thin, and whitish. HEART: Normal sounds with regular beats. There is near tachycardia at rest. ABDOMEN: Soft and nontender with normal bowel sounds. Gastrostomy site is clean. EXTREMITIES: Warm without cyanosis, clubbing, or edema. LABORATORY AND DIAGNOSTIC DATA: Hemoglobin is 13.3, hematocrit 44.0 with MCV of 88, WBC of 7.4, and platelets 320. His BUN and creatinine are 18 and 1.3 respectively. His sodium is 139, potassium 4.4, chloride 103, and CO2 is 22. IMPRESSION AND PLAN: 1. The patient is status post cerebral hemorrhage. There are no cognitive changes. The patient is stable from neurological point of view. 2. The patient is ventilator dependent. We will continue the same ventilator settings and continue with albuterol sulfate, ipratropium bromide inhalation therapy every 6 hours. 3. The patient has tracheostomy, but need to monitor O2 saturation and bronchial secretion. 4. The patient has gastrostomy feeding. There is no gastric residual. Continue with Fibersource at 80 mL/hour. 5. The patient has seizure disorder, and no new seizure. Continue with levetiracetam 1000 mg q.8 h. Complete laboratory tests will be done in the morning. Sariah Bhat M.D. DR: ELISSA JOB#: [id number] CC:
[2018-06-15 04:00] VITALS: BP 132/80
[2018-06-15 04:23] LABS: BASOPHILS % (AUTO) 1.7 % (0.0-2.0); EOSINOPHILS % (AUTO) 6.3 % (0.0-3.0); HEMATOCRIT 43.6 % (42.0-52.0); LYMPHOCYTES % (AUTO) 27.2 % (20.0-45.0); MEAN CORPUSCULAR VOLUME 88 FL (80-99); MONOCYTES % (AUTO) 8.6 % (1.0-10.0); NEUTROPHILS % (AUTO) 56.2 % (45.0-75.0); PLATELET COUNT 311 K/UL (150-450); RED BLOOD COUNT 4.97 M/UL (4.70-6.10); RED CELL DISTRIBUTION WIDTH 15.2 % (11.6-14.8); WHITE BLOOD COUNT 8.7 K/UL (4.8-10.8)
[2018-06-15 04:30] LABS: ANION GAP 15 mmol/L (5-15); BLOOD UREA NITROGEN 20 mg/dL (7-18); CALCIUM 10.6 MG/DL (8.5-10.1); CARBON DIOXIDE 21 MMOL/L (21-32); CHLORIDE 103 MMOL/L (98-107); CREATININE 1.2 MG/DL (0.55-1.30); POTASSIUM 4.1 MMOL/L (3.5-5.1); SODIUM 139 MMOL/L (136-145)
[2018-06-15] MEDS: levETIRAcetam 500mg/5ml Liquid GT SCH ×2 (05:53→13:33)
[2018-06-15] MEDS: Vancomycin 1.5gm/D5W 250ml 250 ML IVPB SCH (05:54)
[2018-06-15] MEDS: NovoLOG Insulin Flexpen SUBQ SCH ×4 (05:55→17:57)
[2018-06-15 08:24] VITALS: BP 130/84
[2018-06-15] MEDS: Heparin 5000 units/ml inj SUBQ SCH (08:50)
--- NOTE | 2018-06-15 10:43 | Pulmonolgy Critical Care Note ---
Critical Care - Asmt/Plan Problems: (1) Acute on chronic respiratory failure (2) Acute on chronic renal insufficiency (3) Severe sepsis (4) Vegetative state (5) Colostomy in place (6) Diabetes mellitus Respiratory: monitor respiratory rate, adjust FIO2, CXR Cardiac: continue to monitor HR/BP Renal: F/U I&O, keep IV fluid Infectious Disease: check cultures Gastrointestinal: continue feedings/current rate Endocrine: check HgA1C Hematologic: monitor H/H Prophylaxis: Protonix, Heparin Time Spent (Minutes): 30 Notes Reviewed: renal Discussed with: nurses, consultants, geriatric case managersenior product manager - Objective Last 24 Hour Vital Signs Date Time Temp Pulse Resp B/P (MAP) Pulse Ox O2 Delivery O2 Flow Rate FiO2 06/15/18 09:04 83 16 30 06/15/18 08:26 Mechanical Ventilator 06/15/18 08:24 98.5 82 16 130/84 (99) 98 98.5 06/15/18 08:00 30 06/15/18 06:30 84 16 30 06/15/18 05:30 98 17 30 06/15/18 04:00 97.9 85 18 132/80 (97) 100 97.9 06/15/18 04:00 82 06/15/18 04:00 30 06/15/18 04:00 Mechanical Ventilator 06/15/18 03:24 102 17 30 06/15/18 01:30 101 17 30 06/15/18 00:00 97.2 87 16 128/85 (99) 99 97.2 06/15/18 00:00 83 06/15/18 00:00 Mechanical Ventilator 06/14/18 23:30 103 16 30 06/14/18 21:03 102 17 30 06/14/18 20:00 98.2 90 17 128/78 (95) 97 98.2 06/14/18 20:00 Mechanical Ventilator 06/14/18 20:00 30 06/14/18 19:47 94 06/14/18 19:30 90 16 30 06/14/18 16:40 85 16 30 06/14/18 16:00 30 06/14/18 16:00 Mechanical Ventilator 06/14/18 16:00 98.1 91 16 111/80 (90) 98 98.1 06/14/18 16:00 86 06/14/18 14:50 89 16 30 06/14/18 12:52 86 16 30 06/14/18 12:00 Mechanical Ventilator 06/14/18 12:00 88 06/14/18 12:00 97.9 88 16 132/87 (102) 97 97.9 06/14/18 12:00 30 06/14/18 11:37 92 16 30 Status: obtunded Condition: critical HEENT: atraumatic Neck: full ROM Lungs: clear Heart: HR/BP unstable Abdomen: soft, non-tender, active bowel sounds Decubiti: location Accucheck: 128 Critical Care - Subjective ROS Limited/Unobtainable: No Condition: critical EKG Rhythm: Sinus Rhythm FI02: 30 Vent Support Breath Rate: 16 Vent Support Mode: AC Vent Tidal Volume: 600 Sputum Amount: Small PEEP: 5.0 PIP: 30 Tube Feeding Amount: 50 I&O: Intake and Output 06/14/18 06/15/18 19:00 07:00 Intake Total 700 ml 835 ml Output Total 1150 ml 500 ml Balance -450 ml 335 ml Free Water 150 ml 110 ml IV Total 125 ml Tube Feeding 550 ml 600 ml Output Urine Total 500 ml 350 ml Stool Total 650 ml 150 ml Labs: Laboratory Tests Test 06/15/18 03:20 White Blood Count 8.7 K/UL (4.8-10.8) Red Blood Count 4.97 M/UL (4.70-6.10) Hemoglobin 14.0 G/DL (14.2-18.0) L Hematocrit 43.6 % (42.0-52.0) Mean Corpuscular Volume 88 FL (80-99) Mean Corpuscular Hemoglobin 28.1 PG (27.0-31.0) Mean Corpuscular Hemoglobin Concent 32.0 G/DL (32.0-36.0) Red Cell Distribution Width 15.2 % (11.6-14.8) H Platelet Count 311 K/UL (150-450) Mean Platelet Volume 8.0 FL (6.5-10.1) Neutrophils (%) (Auto) 56.2 % (45.0-75.0) Lymphocytes (%) (Auto) 27.2 % (20.0-45.0) Monocytes (%) (Auto) 8.6 % (1.0-10.0) Eosinophils (%) (Auto) 6.3 % (0.0-3.0) H Basophils (%) (Auto) 1.7 % (0.0-2.0) Sodium Level 139 MMOL/L (136-145) Potassium Level 4.1 MMOL/L (3.5-5.1) Chloride Level 103 MMOL/L (98-107) Carbon Dioxide Level 21 MMOL/L (21-32) Anion Gap 15 mmol/L (5-15) Blood Urea Nitrogen 20 mg/dL (7-18) H Creatinine 1.2 MG/DL (0.55-1.30) Estimat Glomerular Filtration Rate > 60 mL/min (>60) Glucose Level 121 MG/DL (74-106) H Calcium Level 10.6 MG/DL (8.5-10.1) H Nico Goetz MD Jun 15, 2018 10:43
--- NOTE | 2018-06-15 11:31 | Infectious Diseases Prog Note ---
Assessment/Plan Assessment/Plan A: Sepsis, SP - Probable UTI -u/a wbc 40-60, nit neg, leuk +2; ucx >100k E. aerogenes (S cefepime, cipro/ levo; R Zosyn) Bacteremia Blood cultures postive 01/23 bottles with GPC Unclear source will need to R/O Endocarditis -BCX 01/23 E. aerogenes, prob Amp C (S cefepime, cipro/levo; R Zosyn), P. mirabilis ESBL (S Zosyn, Ertapenem); repeta 05/16 10/25 CoNS (suspect contaminant) , 05/18 Staph f/u final results if CoNS may need TTE and IE work up. -CXR 05/17: Increased left pleural effusion, over 3 days. Overall decreased interstitial congestion. Right infrahilar atelectasis -CXR: Cardiomegaly. Mild interstitial congestion. Suspect small bilateral pleural effusions -CT abd/p: Right lower quadrant double barrel colostomy, as described. Small peristomal hernia contains bowel loops without evidence of obstruction or strangulation. Left renal staghorn calculus. Bilateral intrarenal calyceal calculi. Borderline hydronephrosis on the right without evidence of downstream obstructive lesion. May indicate mild ureteral pelvic junction obstruction. Somewhat atrophic left kidney. Inspissated contrast ball within the distal sigmoid colon. Gastrostomy in good position. Nonspecific bilateral perinephric fat stranding, could indicate pyelonephritis or could be chronic. Newberry catheter in place. Apparent bladder wall thickening, possibly an artifact of under distention but cystitis is not excludable, particularly in view of mild perivesical fat stranding. Bilateral pulmonary parenchymal atelectasis and consolidation -Blood Cx from PICC CoNS 2/2 bottles Peripheral Neg- (May be contaminant but will repeat blood Cx given new leukocytosis if positive will need ECHO. - Blood Cx 05/20/18 - GPC - Will need TTE for IE work up and the PICC removed. PICC line infection/colonization - TTE negative. Blood cultures only positive from PICC. Not positive from Peripheral - PICC replace 05/22/18 Fever/Leukocytosis; Resolved DIVYA, improving Lactic acidosis, resolved chronic resp failure trach/vent dependant BPH GERD HTN DM2 seizure disorder colostomy s/p GT constipation VRE and MRSA colonized Plan: - Continue empiric IV Vancomycin # for bacteremia/line infection cant r/o Endocarditis -05/30 SP Ertapenem #14 -05/17 SP Zosyn #4 JOE could not be performed due to technical problems - Unable to repeat JOE so patient should be treated for presumed endocarditis for 6 weeks - Monitor CBC/CMP, temperatures - Pulmonary care Subjective Allergies: Coded Allergies: AZTREONAM (Verified Allergy, Unknown, 05/13/18) Subjective Afebrile Objective Vital Signs Last 24 Hour Vital Signs Date Time Temp Pulse Resp B/P (MAP) Pulse Ox O2 Delivery O2 Flow Rate FiO2 06/15/18 10:44 87 16 30 06/15/18 09:04 83 16 30 06/15/18 08:26 Mechanical Ventilator 06/15/18 08:24 98.5 82 16 130/84 (99) 98 98.5 06/15/18 08:00 30 06/15/18 08:00 81 06/15/18 06:30 84 16 30 06/15/18 05:30 98 17 30 06/15/18 04:00 97.9 85 18 132/80 (97) 100 97.9 06/15/18 04:00 82 06/15/18 04:00 30 06/15/18 04:00 Mechanical Ventilator 06/15/18 03:24 102 17 30 06/15/18 01:30 101 17 30 06/15/18 00:00 97.2 87 16 128/85 (99) 99 97.2 06/15/18 00:00 83 06/15/18 00:00 Mechanical Ventilator 06/14/18 23:30 103 16 30 06/14/18 21:03 102 17 30 06/14/18 20:00 98.2 90 17 128/78 (95) 97 98.2 06/14/18 20:00 Mechanical Ventilator 06/14/18 20:00 30 06/14/18 19:47 94 06/14/18 19:30 90 16 30 06/14/18 16:40 85 16 30 06/14/18 16:00 30 06/14/18 16:00 Mechanical Ventilator 06/14/18 16:00 98.1 91 16 111/80 (90) 98 98.1 06/14/18 16:00 86 06/14/18 14:50 89 16 30 06/14/18 12:52 86 16 30 06/14/18 12:00 Mechanical Ventilator 06/14/18 12:00 88 06/14/18 12:00 97.9 88 16 132/87 (102) 97 97.9 06/14/18 12:00 30 06/14/18 11:37 92 16 30 Height (Feet): 6 Height (Inches): 0.00 Weight (Pounds): 178 Laboratory Tests Test 06/15/18 03:20 White Blood Count 8.7 K/UL (4.8-10.8) Red Blood Count 4.97 M/UL (4.70-6.10) Hemoglobin 14.0 G/DL (14.2-18.0) L Hematocrit 43.6 % (42.0-52.0) Mean Corpuscular Volume 88 FL (80-99) Mean Corpuscular Hemoglobin 28.1 PG (27.0-31.0) Mean Corpuscular Hemoglobin Concent 32.0 G/DL (32.0-36.0) Red Cell Distribution Width 15.2 % (11.6-14.8) H Platelet Count 311 K/UL (150-450) Mean Platelet Volume 8.0 FL (6.5-10.1) Neutrophils (%) (Auto) 56.2 % (45.0-75.0) Lymphocytes (%) (Auto) 27.2 % (20.0-45.0) Monocytes (%) (Auto) 8.6 % (1.0-10.0) Eosinophils (%) (Auto) 6.3 % (0.0-3.0) H Basophils (%) (Auto) 1.7 % (0.0-2.0) Sodium Level 139 MMOL/L (136-145) Potassium Level 4.1 MMOL/L (3.5-5.1) Chloride Level 103 MMOL/L (98-107) Carbon Dioxide Level 21 MMOL/L (21-32) Anion Gap 15 mmol/L (5-15) Blood Urea Nitrogen 20 mg/dL (7-18) H Creatinine 1.2 MG/DL (0.55-1.30) Estimat Glomerular Filtration Rate > 60 mL/min (>60) Glucose Level 121 MG/DL (74-106) H Calcium Level 10.6 MG/DL (8.5-10.1) H Current Medications Medications (Trade) Dose Ordered Sig/Va Route PRN Reason Start Time Stop Time Status Last Admin Dose Admin Acetaminophen (Tylenol) 650 mg Q4H PRN ORAL FEVER 06/08/18 21:00 07/06/18 20:59 Baclofen (Lioresal) 10 mg EVERY 8 HOURS GT 06/08/18 22:00 07/02/18 20:59 06/15/18 05:53 Chlorhexidine Gluconate (Rebecca-Hex 2%) 1 applic DAILY@2000 TOPIC 06/08/18 22:00 07/08/18 21:59 06/14/18 21:34 Dextrose (Dextrose 50%) 25 ml STAT PRN IV Hypoglycemia 06/08/18 21:45 07/06/18 21:44 Dextrose (Dextrose 50%) 50 ml STAT PRN IV Hypoglycemia 06/08/18 21:45 07/06/18 21:44 Heparin Sodium (Porcine) (Heparin 5000 units/ml) 5,000 units EVERY 12 HOURS SUBQ 06/08/18 22:00 07/08/18 21:59 06/15/18 08:50 Insulin Aspart (NovoLOG) Q6HR SUBQ 06/09/18 00:00 07/07/18 17:29 06/15/18 05:55 Lansoprazole (Prevacid) 30 mg DAILY GT 06/09/18 09:00 07/08/18 08:59 06/15/18 08:48 Levetiracetam (Keppra) 1,000 mg Q8HR GT 06/08/18 22:00 07/06/18 20:59 06/15/18 05:53 Ondansetron HCl (Zofran) 4 mg Q6H PRN IVP Nausea & Vomiting 06/08/18 22:00 07/06/18 15:59 Polyethylene Glycol (Miralax) 17 gm BEDTIME GT 06/08/18 22:00 07/08/18 21:59 06/14/18 21:34 Vancomycin HCl (Vanco rx to dose) 1 ea DAILY PRN MISC PER RX PROTOCOL 06/08/18 21:45 07/08/18 21:44 Vancomycin HCl/ Dextrose 250 ml @ 125 mls/hr Q24H IVPB 06/11/18 07:00 07/03/18 06:59 06/15/18 05:54 Christian Manriquez MD Jun 15, 2018 11:31
[2018-06-15 12:11] VITALS: BP 134/78
--- NOTE | 2018-06-15 12:33 | Cardiology Progress Note ---
Assessment/Plan Status: stable Assessment/Plan Assessment: (1) Acute on chronic respiratory failure (2) Acute on chronic renal insufficiency (3) Severe sepsis (4) Vegetative state (5) Colostomy in place (6) Diabetes mellitus Plan: Continue antibiotics Echocardiogram reviewed- no endocarditis, JOE unable to be performed Patient afebrile, normal WBC otherwise Continue trach care and tube feeds Continue keppra for seizures Continue abx treatment for six weeks via PICC line until 07/06 Dispo planning Subjective Cardiovascular: Reports: no symptoms Respiratory: Reports: no symptoms Gastrointestinal/Abdominal: Reports: no symptoms Genitourinary: Reports: no symptoms Subjective Afebrile vitals stable, Telemetry shows sinus rhythm. No acute events. Left pleural effusion unchanged. Ventilator settings: portex 7, AC 16, TV: 600, FiO2: 30%, PEEP: 5. GT is in place running glucerna 1.2 @ 65 ml/hr. No residual present. Colostomy bag in place. JOE not completed, probe unable to be passed. Patient should be treated for total six weeks abx for presumptive endocarditis at this juncture. Hyponatremia resolved, DIVYA resolved, patient stable . Objective Last 24 Hour Vital Signs Date Time Temp Pulse Resp B/P (MAP) Pulse Ox O2 Delivery O2 Flow Rate FiO2 06/15/18 12:11 98.6 84 18 134/78 (96) 98 98.6 06/15/18 12:10 Mechanical Ventilator 06/15/18 12:00 30 06/15/18 10:44 87 16 30 06/15/18 09:04 83 16 30 06/15/18 08:26 Mechanical Ventilator 06/15/18 08:24 98.5 82 16 130/84 (99) 98 98.5 06/15/18 08:00 30 06/15/18 08:00 81 06/15/18 06:30 84 16 30 06/15/18 05:30 98 17 30 06/15/18 04:00 97.9 85 18 132/80 (97) 100 97.9 06/15/18 04:00 82 06/15/18 04:00 30 06/15/18 04:00 Mechanical Ventilator 06/15/18 03:24 102 17 30 06/15/18 01:30 101 17 30 06/15/18 00:00 97.2 87 16 128/85 (99) 99 97.2 06/15/18 00:00 83 06/15/18 00:00 Mechanical Ventilator 06/14/18 23:30 103 16 30 06/14/18 21:03 102 17 30 06/14/18 20:00 98.2 90 17 128/78 (95) 97 98.2 06/14/18 20:00 Mechanical Ventilator 06/14/18 20:00 30 06/14/18 19:47 94 06/14/18 19:30 90 16 30 06/14/18 16:40 85 16 30 06/14/18 16:00 30 06/14/18 16:00 Mechanical Ventilator 06/14/18 16:00 98.1 91 16 111/80 (90) 98 98.1 06/14/18 16:00 86 06/14/18 14:50 89 16 30 06/14/18 12:52 86 16 30 General Appearance: no apparent distress, on vent EENT: PERRL/EOMI, normal ENT inspection, TMs normal Neck: non-tender, normal alignment, supple Rhythm: NSR Cardiovascular: normal peripheral pulses, normal rate, regular rhythm Respiratory/Chest: chest wall non-tender, lungs clear Abdomen: normal bowel sounds, non tender, soft Extremities: normal range of motion, non-tender Neurologic: technical buyer II-XII grossly normal Intake and Output 06/14/18 06/15/18 19:00 07:00 Intake Total 700 ml 835 ml Output Total 1150 ml 500 ml Balance -450 ml 335 ml Free Water 150 ml 110 ml IV Total 125 ml Tube Feeding 550 ml 600 ml Output Urine Total 500 ml 350 ml Stool Total 650 ml 150 ml Laboratory Tests Test 06/15/18 03:20 White Blood Count 8.7 K/UL (4.8-10.8) Red Blood Count 4.97 M/UL (4.70-6.10) Hemoglobin 14.0 G/DL (14.2-18.0) L Hematocrit 43.6 % (42.0-52.0) Mean Corpuscular Volume 88 FL (80-99) Mean Corpuscular Hemoglobin 28.1 PG (27.0-31.0) Mean Corpuscular Hemoglobin Concent 32.0 G/DL (32.0-36.0) Red Cell Distribution Width 15.2 % (11.6-14.8) H Platelet Count 311 K/UL (150-450) Mean Platelet Volume 8.0 FL (6.5-10.1) Neutrophils (%) (Auto) 56.2 % (45.0-75.0) Lymphocytes (%) (Auto) 27.2 % (20.0-45.0) Monocytes (%) (Auto) 8.6 % (1.0-10.0) Eosinophils (%) (Auto) 6.3 % (0.0-3.0) H Basophils (%) (Auto) 1.7 % (0.0-2.0) Sodium Level 139 MMOL/L (136-145) Potassium Level 4.1 MMOL/L (3.5-5.1) Chloride Level 103 MMOL/L (98-107) Carbon Dioxide Level 21 MMOL/L (21-32) Anion Gap 15 mmol/L (5-15) Blood Urea Nitrogen 20 mg/dL (7-18) H Creatinine 1.2 MG/DL (0.55-1.30) Estimat Glomerular Filtration Rate > 60 mL/min (>60) Glucose Level 121 MG/DL (74-106) H Calcium Level 10.6 MG/DL (8.5-10.1) H Kali Owens M.D. Jun 15, 2018 12:33
[2018-06-15 16:04] VITALS: BP 132/68
[2018-06-15] MEDS: Dyna-Hex 2% Top Sol 2oz TOPIC SCH (19:56)
[2018-06-15 20:00] VITALS: BP 128/78
[2018-06-15] MEDS ORDERED: Tubing IV Secondary IV ONE (20:24)
[2018-06-15] MEDS ORDERED: NS 275ml ONE (20:24)
[2018-06-15] MEDS ORDERED: Sterile Water Irrig 1000ml IRRIG ONE (20:24)
[2018-06-15] MEDS ORDERED: D5W 275ml ONE (20:24)
--- NOTE | 2018-06-16 04:00 | Progress Note ---
DATE: 06/15/2018 SUBJECTIVE: The patient is awake, not alert, afebrile, and hemodynamically stable. PHYSICAL EXAMINATION: VITAL SIGNS: Blood pressure is 132/68, his pulse is 87, respirations 16, and temperature 98.4. HEENT: Eyes were normal. ENT, mucous membranes were moist and intact. NECK: Supple with no JVD without lymph nodes. Tracheostomy site is clean. LUNGS: Clear without rhonchi, rales, or wheezing. Secretions are small, thin, and hodgson. HEART: Normal sounds with regular beats. There is no S3, S4, or pericardial rub. ABDOMEN: Soft and nontender with normal bowel sounds. Gastrostomy site is clean. EXTREMITIES: Warm without cyanosis, clubbing, or edema. LABORATORY AND DIAGNOSTIC DATA: His hemoglobin is 14.0, hematocrit 43.6, MCV of 88, WBC 8.7, and platelets are 311,000. His BUN and creatinine are 20 and 1.2, respectively. Sodium is 139, potassium 4.1, chloride 103, and CO2 is 21. IMPRESSION AND PLAN: 1. The patient has anoxic encephalopathy. He is stable from neurological point of view. 2. The patient is ventilator dependent. Continue the same ventilator setting. Continue with albuterol sulfate and ipratropium bromide inhalation therapy every 6 hours. 3. The patient has tracheostomy. Continue to monitor O2 saturation and bronchial secretion. 4. The patient has gastrostomy feeding. There is no gastric residual. Continue with Fibersource at per hour. 5. The patient has seizure disorder and no new seizure. We will continue on levetiracetam 1000 mg q.8 h. 6. Repeat laboratory tests will be done in the a.m. Sariah Bhat M.D. DR: KETAN JOB#: [id number] CC:
--- NOTE | 2018-06-17 12:39 | Discharge Summary ---
Discharge Summary Discharge Summary _ DATE OF ADMISSION: 05/14/2018 DATE OF DISCHARGE: 06/15/2018 REASON FOR ADMISSION: 53 years old male with past medical history significant for ventilator- dependent respiratory failure, tracheostomy status, dysphagia, G-tube, colostomy , seizure disorder, hypertension, diabetes mellitus, was sent from the residential facility with fever and tachycardia. Upon presentation in ED, temperature 103.7 and heart rate 144. Blood pressure on the low side. Laboratory workup revealed leukocytosis with WBC 11.2 BUN 34, creatinine 1.4. Blood glucose -232. Lactic acid 4.0. Hemoglobin and hematocrit initially stable. LFT within normal limits. Troponin negative. Urinalysis with evidence of pyuria, hematuria and some bacteria. EKG revealed sinus tachycardia, no acute ischemic changes. Chest x-ray revealed no acute cardiopulmonary pathology , but showed mild interstitial congestion and cardiomegaly. CT of the abdomen and pelvis revealed right lower quadrant double-barreled colostomy. Small peristomal hernia , containing bowel loops without evidence of obstruction or strangulation. Gastrostomy tube in good position. Borderline hydronephrosis on the right without evidence off downstream obstructive lesion. Nonspecific bilateral perinephric fat stranding , could be indicative of pyelonephritis or could be chronic. Apparent bladder wall thickening. Newberry catheter in place. Patient admitted with diagnoses of severe sepsis, urinary tract infection , acute kidney injury, respiratory failure, lactic acidosis, hypotension, possible early shock. CONSULTANTS: spanish teacher Dr. Owens pulmonary Dr. Goetz ID specialist Dr. Manriquez GI specialist Dr. Prater coin dealer Dr.De Montero aircraft structural design engineer/oncologist Dr. Fleming [facility] COURSE: Patient admitted to direct observational unit. Patient started on IV fluids and empiric antibiotics. Blood pressure responded to IV fluids and stabilized. Infectious disease specialist closely followed. Initially blood culture revealed Proteus ESBL and Enterobacter . Urine culture revealed Enterobacter. Patient was on antibiotic as per ID specialist recommendations. Repeated blood culture reveled on different occasions 1/4 Staphylococcus coagulase negative, 1/4 Staphylococcus epidermidis, 2/4 Staphylococcus hominis, all obtained via PICC line. Echocardiogram revealed preserved ejection fraction 55-60% and right ventricular systolic pressure of 16. No discrete vegetation was seen. Subsequently JOE was attempted . However due to technical difficulty , it could not be done. PICC line was discontinued, and later another PICC line was placed. Repeated later blood culture on two different occasions were both negative. Per ID recommendations, patient likely had PICC line infection versus possible colonization. However unable to rule out infective endocarditics, since JOE unable to be done. Subsequently ID specialist recommended to continue antibiotic for total of 42 days for presumed endocarditis. Anticipated end of treatment day - 07/03/2018. Patient will need to complete antibiotics at the facility. Manager Investment closely followed. Ventilator support and pulmonary toilet provided. Tracheostomy care provided. Patient was followed up with chest x-ray. Ventilator settings titrated as needed. Strict aspiration/reflux precautions were maintained. Venous duplex bilateral lower extremity was negative for acute DVT. Patient was on DVT prophylaxis. Industrial Gas Servicer Supervisor closely followed for initial acute kidney injury. Patient was on IV hydration. Renal parameters and electrolytes were closely monitored. Electrolytes were corrected as needed. Nephrotoxins were avoided. Acute renal failure was likely secondary to sepsis , and resolved with IV hydration. Seizure precautions were maintained. No evidence of seizure activity while in the hospital. Keppra was continued. Surgeon closely followed. As mentioned above, CT of the abdomen and pelvis revealed no evidence of strangulation or obstruction. Parastomal hernia with bowel loops. Per surgeon, larger appearance of patient's stoma was due to location and use of loop colostomy in hepatic flexure. Otherwise stoma was viable and stable. Surgeon highly recommended fixing parastomal hernia, but it could be done electively. However it patient will develop obstruction, then patient will need an urgent repair , currently nonobstructive. Bowel regimen instituted. GI specialist closely followed. Hemoglobin and hematocrit were closely monitored with goal to keep hemoglobin above 7 , remained stable. Boat Hop followed. According to aircraft structural design engineer, anemia workup was consistent with anemia of chronic disease. Stool for occult blood was negative. Hepatitis panel was negative. Strict aspiration precaution were maintained. G-tube site care provided. Patient was able to tolerate G-tube feeding. GI prophylaxis provided. Silver [place]are Assembler followed throughout patient's stay in the hospital. Blood pressure was closely monitored, and remained stable. Blood sugar was managed with sliding scale of insulin. Supportive care provided. Pain management was addressed. Patient clinically stabilized and was ready for transfer to [facility] for further management and completion of antibiotic regimen. FINAL DIAGNOSES: Severe sepsis with bacteremia Enterobacter UTI Probably PICC line infection Acute on chronic respiratory failure Chronic respiratory failure with ventilator dependency and tracheostomy status Acute kidney injury -resolved Stoma malfunction Parastomal hernia Colostomy status Seizure disorder Diabetes mellitus Hypertension Dysphagia, G-tube BPH GERD Vegetative state Anemia of chronic disease DISCHARGE MEDICATIONS: See Medication Reconciliation list. DISCHARGE INSTRUCTIONS: Patient was transferred to [facility] for further management. I have been assigned to dictate discharge summary for this account. I was not involved in the patient's management. Radha Kaufman NP Jun 17, 2018 12:39
--- NOTE | 2018-06-17 23:00 | Discharge Summary ---
DATE OF ADMISSION: 05/14/2018 DATE OF DISCHARGE: 06/15/2018 HISTORY: This is the first admission to [facility] of this 53-year-old patient because of sepsis. HISTORY OF PRESENT ILLNESS: Details of the event and circumstances that led the patient to be admitted to this medical unit can be found in the History and Physical. In brief, the patient is a resident of an extended care facility subacute unit where he has been in relatively stable condition. Over the last several months, he is known to have a long list of chronic medical syndrome, but has been stable on his current medication 00:46 syndrome was intracerebral hemorrhage Israel coma scale is 6, respiratory failure, mechanical ventilation dependence with tracheostomy and fed via gastrostomy tube. In addition, the patient has chronic anemia and chronic renal failure. She developed fever, tachycardia and sepsis, was transferred from to [facility] ER and was admitted. HOSPITAL COURSE: Upon admission, the patient underwent clinical, biological, and imaging study. Clinical assessment revealed the patient was hypotensive, tachycardic with leukocytosis. consult was called to assist in management of this case. He has been assessed by the renal medicine specialist, butcher chicken and fish and Infectious Disease specialist and was placed on broad-spectrum antibiotics that include initially Zosyn 3.375 g vancomycin, meropenem and Diflucan. His leukocytosis progressively declined and finally normalized as well as his blood pressure and his renal function. Over the last 3 weeks, the patient resided in [facility] unit while waiting for placement. He was finally transferred to [facility] on his current medication where he will be managed by [place] team. Sariah Bhat M.D. DR: ELISSA JOB#: [id number] CC:
== END 2018-06-15 20:25 | DRG 870 ==
LOC: EDBD 23:58 → EMR 05-14 00:11 → ICU 05-14 01:46 → EDBEDREQSVC 05-14 03:21 → EDBEDREQ 05-14 03:21 → 2W 05-16 11:45 → UNDODISIN 06-08 17:42
PROC: 5A1955Z Respiratory Ventilation, Greater than 96 Consecutive Hours (ICD-10-PCS; principal; 2018-05-14)
PROC: B548ZZA Ultrasonography of Superior Vena Cava, Guidance (ICD-10-PCS; principal; 2018-05-14)
PROC: 02HV33Z Insertion of Infusion Device into Superior Vena Cava, Percutaneous Approach (ICD-10-PCS; principal; 2018-05-14)
PROC: B54MZZA Ultrasonography of Right Upper Extremity Veins, Guidance (ICD-10-PCS; 2018-05-22)
PROC: 05H733Z Insertion of Infusion Device into Right Axillary Vein, Percutaneous Approach (ICD-10-PCS; 2018-05-22)
DX: A41.9 Sepsis, unspecified organism (principal); T80.211A Bloodstream infection due to central venous catheter, initial encounter; R65.21 Severe sepsis with septic shock; J96.20 Acute and chronic respiratory failure, unspecified whether with hypoxia or hypercapnia; J18.9 Pneumonia, unspecified organism; Z99.11 Dependence on respirator [ventilator] status; N13.30 Unspecified hydronephrosis; N39.0 Urinary tract infection, site not specified; R40.3 Persistent vegetative state; E87.1 Hypo-osmolality and hyponatremia; G93.1 Anoxic brain damage, not elsewhere classified; I10 Essential (primary) hypertension; E11.9 Type 2 diabetes mellitus without complications; Z93.3 Colostomy status; Z93.0 Tracheostomy status; Z93.1 Gastrostomy status; G40.909 Epilepsy, unspecified, not intractable, without status epilepticus; E83.52 Hypercalcemia; E83.39 Other disorders of phosphorus metabolism; N40.0 Benign prostatic hyperplasia without lower urinary tract symptoms; K43.5 Parastomal hernia without obstruction or gangrene; K59.00 Constipation, unspecified
CPT/HCPCS: 36415; 36569; 71045; 74176; 76937; 80048; 80053; 80069; 80202; 81003; 82270; 82550; 82553; 82728; 82746; 82962; 83540; 83550; 83605; 83690; 83735; 83880; 84100; 84443; 84484; 85007; 85025; 85044; 85060; 85610; 85651; 85730; 86140; 86705; 86709; 86803; 87040; 87081; 87086; 87181; 87340; 93005; 93306; 93970; 94002; 94003; 94150; 99291; J1815; J2405; J3490

== ENCOUNTER 2018-07-20 11:12 | Inpatient (IN) | payer BC, OTHER ==
[~2018-07-20] VITALS: Ht 172.7 cm; Wt 73.9 kg
[2018-07-20 11:12] VITALS: BP 137/101
[~2018-07-20 11:12] MED LIST: ACETAMINOP160 MG/5 M GT; ARTIFICIAL TEAR15 ML BOTH EYES; BACLOFEN10 MG GT; BISACODYL5 MG RECTAL; CALCIUM CARBON650 M2 GT; CATAPRES0.1 MG GT; CRANBERRY400 MG GT; DOCUSATE SODIU100 MG GT; DUONEB 0.5-3(2.53 ML HHN; FAMOTIDINE20 MG GT; JANUVIA25 MG GT; LACTULOSE20 GM/301 GT; LEVETIRACE100 MG/1 M GT; LOSARTAN POTASS25 MG GT; MIRALAX17 G2 GT; MULTIVITAMINS1 EAC8 GT; NOVOLIN R100 UNIT/1 SUBQ; NYSTATIN15 GM TOPIC; PERIDEX15 ML MM; ROBINUL1 MG GT; SPIRONOLACTONE25 MG GT; VITAMIN D1000 UNI1 GT
[2018-07-20] MEDS ORDERED: Acetaminophen 650 MG SUPP RECTAL ONE (11:30)
[2018-07-20] MEDS ORDERED: FENOFIBRATE145 M1 GT (12:09)
[2018-07-20] MEDS ORDERED: APLISOL5 TUB UNIT ID (12:09)
[2018-07-20] MEDS ORDERED: VANCOMYCIN750 MG IVPB (12:09)
[2018-07-20] MEDS ORDERED: ALBUTEROL2.5 MG/3 M INH (12:09)
[2018-07-20] MEDS ORDERED: ARGINAID POWDE1 EACH PO (12:09)
[2018-07-20 12:19] LABS: HEMATOCRIT 50.3 % (42.0-52.0); HEMOGLOBIN 15.6 G/DL (14.2-18.0); MEAN CORPUSCULAR VOLUME 91 FL (80-99); PLATELET COUNT 311 K/UL (150-450); RED BLOOD COUNT 5.55 M/UL (4.70-6.10); RED CELL DISTRIBUTION WIDTH 14.4 % (11.6-14.8)
--- NOTE | 2018-07-20 12:40 | Diagnostic Imaging Report ---
EXAM: XR Chest, 1 View CLINICAL HISTORY: Shortness of breath TECHNIQUE: Frontal view of the chest. COMPARISON: Chest x-ray dated 06/07/18 FINDINGS: Lungs: Unchanged subsegmental atelectasis versus infiltrate in the left lung base. Pleural space: Blunting of the left costophrenic angle, suggesting a small left effusion, not significant changed. Heart: Unremarkable. No cardiomegaly. Mediastinum: Unremarkable. Bones/joints: Unremarkable. Tubes, lines and devices: EKG leads overlie the thorax. Tracheostomy tube is visualized, with expected positioning. IMPRESSION: 1. Small left pleural effusion, not significantly changed. 2. Unchanged subsegmental atelectasis versus infiltrate in the left lung base.
[2018-07-20 12:51] LABS: WHITE BLOOD COUNT 22.8 K/UL (4.8-10.8)
[2018-07-20 12:58] VITALS: BP 143/102
[2018-07-20 13:07] LABS: ANION GAP 12 mmol/L (5-15); BLOOD UREA NITROGEN 47 mg/dL (7-18); CALCIUM 10.1 MG/DL (8.5-10.1); CARBON DIOXIDE 22 MMOL/L (21-32); CHLORIDE 110 MMOL/L (98-107); CREATININE 1.8 MG/DL (0.55-1.30); POTASSIUM 4.2 MMOL/L (3.5-5.1); SODIUM 144 MMOL/L (136-145)
[2018-07-20 13:10] VITALS: BP 136/98
[2018-07-20 13:13] LABS: APPEARANCE,URINE SLIGHTLY CLOUDY; COLOR,URINE YELLOW; PH,URINE 6 (4.5-8.0); PROTEIN,URINE 4+ (NEGATIVE)
[2018-07-20 13:14] LABS: BILIRUBIN, URINE NEGATIVE (NEGATIVE); GLUCOSE, URINE (UA) 2+ (NEGATIVE); KETONES,URINE NEGATIVE (NEGATIVE); LEUKOCYTE ESTERASE ,URINE 2+ (NEGATIVE); NITRITE,URINE NEGATIVE (NEGATIVE); UROBILINOGEN,URINE NORMAL MG/DL (0.0-1.0)
[2018-07-20 13:21] LABS: ALANINE AMINOTRANSFERASE 26 U/L (12-78); ALBUMIN 2.8 G/DL (3.4-5.0); ALBUMIN/GLOBULIN RATIO 0.5 (1.0-2.7); ALKALINE PHOSPHATASE 99 U/L (46-116); ASPARTATE AMINO TRANSFERASE 41 U/L (15-37); BILIRUBIN,TOTAL 0.5 MG/DL (0.2-1.0); CKMB < 0.5 NG/ML (0.0-3.6); CREATINE KINASE 1618 U/L (26-308)
[2018-07-20] MEDS ORDERED: Cefepime HCl 2 GM in D5W 55 ML IVPB ONE (13:30)
--- NOTE | 2018-07-20 14:28 | Emergency Room Report ---
History of Present Illness General Chief Complaint: Fever Source: Medical Record Present Illness HPI 53-year-old male presents ED for evaluation. Brought in by EMS from care home facility for evaluation of fever. Started yesterday. Was given Tylenol by nursing staff. Tachycardic to 150s. Patient is on trach/on ventilator. Nonverbal at baseline. Febrile in triage. No reported respiratory distress. No other aggravating relieving factors. No other associated symptoms Allergies: Coded Allergies: AZTREONAM (Verified Allergy, Unknown, 05/13/18) Patient History Past Medical History: DM, COPD, seizures Past Surgical History: none Pertinent Family History: none Social History: Denies: smoking, alcohol use, drug use Immunizations: UTD Reviewed Nursing Documentation: PMH: Agreed; PSxH: Agreed Nursing Documentation-PMH Hx Cardiac Problems: Yes Hx Hypertension: Yes Hx COPD: Yes Hx Diabetes: Yes Hx Cancer: No Hx Gastrointestinal Problems: Yes Hx Neurological Problems: Yes Hx Seizures: Yes Review of Systems All Other Systems: limited Physical Exam Vital Signs Date Time Temp Pulse Resp B/P (MAP) Pulse Ox O2 Delivery O2 Flow Rate FiO2 07/20/18 11:04 102.0 155 18 139/60 100 Mechanical Ventilator 102.0 07/20/18 11:06 15.0 30 Sp02 EP Interpretation: reviewed, normal General Appearance: other - nonverbal Head: normocephalic Eyes: bilateral eye normal inspection, bilateral eye PERRL ENT: normal ENT inspection Neck: normal inspection Respiratory: chest non-tender, lungs clear, normal breath sounds, speaking full sentences Cardiovascular #1: no edema, tachycardia Gastrointestinal: normal bowel sounds, non tender, soft, non-distended, no guarding, no rebound Rectal: deferred Genitourinary: no CVA tenderness Musculoskeletal: normal inspection Neurologic: other - nonverbal Psychiatric: other - nonverbal Skin: normal inspection Lymphatic: normal inspection Procedures Critical Care Time Critical Care Time i. I feel this is a highly complex case requiring extensive working including EKG/Rhythm strip, Xray/CT/US, Blood/urine lab work, repeat exams while in ED, and administration of strong opiates/narcotics for pain control, admission to hospital or close patient follow up. Total time: 30 min bedside evaluation and treatment excludes procedures (EKG). Reason for critical care: fever, tachycardic Possible complications: hypotension, hypertension, MS, shock, arrhythmias, metabolic acidosis, end organ damage, respiratory failure. Interventions: labs, IVFS, tylenol, EKG, CXR, UA. abx Course: Patient presenting with fever, tachycardia. Labs show significant UTI. Lactic okay. Tachycardia resolving with IV fluids, Tylenol. Broad- spectrum antibiotics given Consultations: nursing staff, EMS, family Performed by: Dr Velazquez Tolerated well condition = serious j. because of unstable vital signs this patient had a condition that could potentially threaten life or limb. I feel this is a critical patient who required my full attention while patient was considered critical. Total Critical Care Time excluding procedures was greater than 35 minutes Medical Decision Making Diagnostic Impression: Primary Impression: Acute on chronic renal insufficiency Additional Impressions: Acute on chronic respiratory failure Qualified Codes: J96.20 - Acute and chronic respiratory failure, unspecified whether with hypoxia or hypercapnia UTI (urinary tract infection) Qualified Codes: N39.0 - Urinary tract infection, site not specified ER Course Hospital Course 53 yo M presents with fever, tachycardia from SNF Differential diagnoses include: Pneumonia, UTI, sepsis, dehydration, MS/ unstable angina Clinical course Patient placed on stretcher. On deputy county attorney with tachycardia. given tylenol. After initial history and physical, I ordered labs, IV fluids, EKG, chest x-ray, blood cultures, UA. Labs - BUN/Cr elevated, noted leukocytosis, lactate 1.9, UA grossly positive for UTI EKG - sinus tachycarda, no acute ischemic changes interpreted by me CXR - atelectasis Abx given. Given 30 mL per KG fluid bolus. Tachycardia slowly resolving Case discussed with Dr Bhat and they agreed to admit patient to their service for further care and support I feel this is a highly complex case requiring extensive working including EKG/ Rhythm strip, Xray/CT/US, Blood/urine lab work, repeat exams while in ED, and administration of strong opiates/narcotics for pain control, admission to hospital or close patient follow up. Diagnosis - acute on chronic renal insufficiency, acute on chronic respiratory failure, UTI Patient admitted to SDU in serious condition Labs Test 07/20/18 11:15 07/20/18 12:00 White Blood Count 22.8 K/UL (4.8-10.8) Red Blood Count 5.55 M/UL (4.70-6.10) Hemoglobin 15.6 G/DL (14.2-18.0) Hematocrit 50.3 % (42.0-52.0) Mean Corpuscular Volume 91 FL (80-99) Mean Corpuscular Hemoglobin 28.1 PG (27.0-31.0) Mean Corpuscular Hemoglobin Concent 31.0 G/DL (32.0-36.0) Red Cell Distribution Width 14.4 % (11.6-14.8) Platelet Count 311 K/UL (150-450) Mean Platelet Volume 9.3 FL (6.5-10.1) Neutrophils (%) (Auto) % (45.0-75.0) Lymphocytes (%) (Auto) % (20.0-45.0) Monocytes (%) (Auto) % (1.0-10.0) Eosinophils (%) (Auto) % (0.0-3.0) Basophils (%) (Auto) % (0.0-2.0) Differential Total Cells Counted 100 Neutrophils % (Manual) 88 % (45-75) Lymphocytes % (Manual) 6 % (20-45) Monocytes % (Manual) 3 % (1-10) Eosinophils % (Manual) 0 % (0-3) Basophils % (Manual) 1 % (0-2) Myelocytes % 1 % (0-0) Band Neutrophils 1 % (0-8) Platelet Estimate Adequate Platelet Morphology Normal Lactic Acid Level 1.90 mmol/L (0.4-2.0) Urine Color Yellow Urine Appearance Slightly cloudy Urine pH 6 (4.5-8.0) Urine Specific [place] 1.010 (1.005-1.035) Urine Protein 4+ (NEGATIVE) Urine Glucose (UA) 2+ (NEGATIVE) Urine Ketones Negative (NEGATIVE) Urine Blood 5+ (NEGATIVE) Urine Nitrite Negative (NEGATIVE) Urine Bilirubin Negative (NEGATIVE) Urine Urobilinogen Normal MG/DL (0.0-1.0) Urine Leukocyte Esterase 2+ (NEGATIVE) Urine RBC 15-20 /HPF (0 - 0) Urine WBC 30-40 /HPF (0 - 0) Urine Squamous Epithelial Cells Occasional /LPF Urine Bacteria Few /HPF (NONE) Sodium Level 144 MMOL/L (136-145) Potassium Level 4.2 MMOL/L (3.5-5.1) Chloride Level 110 MMOL/L (98-107) Carbon Dioxide Level 22 MMOL/L (21-32) Anion Gap 12 mmol/L (5-15) Blood Urea Nitrogen 47 mg/dL (7-18) Creatinine 1.8 MG/DL (0.55-1.30) Estimat Glomerular Filtration Rate 48.5 mL/min (>60) Glucose Level 332 MG/DL (74-106) Calcium Level 10.1 MG/DL (8.5-10.1) Total Bilirubin 0.5 MG/DL (0.2-1.0) Aspartate Amino Transf (AST/SGOT) 41 U/L (15-37) Alanine Aminotransferase (ALT/SGPT) 26 U/L (12-78) Alkaline Phosphatase 99 U/L (46-116) Total Creatine Kinase 1618 U/L (26-308) Creatine Kinase MB < 0.5 NG/ML (0.0-3.6) Creatine Kinase MB Relative Index 0.0 Troponin I 0.048 ng/mL (0.000-0.056) Pro-B-Type Natriuretic Peptide 285 pg/mL (0-125) Total Protein 8.6 G/DL (6.4-8.2) Albumin 2.8 G/DL (3.4-5.0) Globulin 5.8 g/dL Albumin/Globulin Ratio 0.5 (1.0-2.7) EKG Diagnostic Results Rate: tachycardiac Rhythm: NSR ST Segments: no acute changes ASA given to the pt in ED: No Rhythm Strip Diag. Results EP Interpretation: yes Rhythm: NSR, no PVC's, no ectopy Chest X-Ray Diagnostic Results Chest X-Ray Diagnostic Results : Chest X-Ray Ordered: Yes # of Views/Limited/Complete: 1 View Indication: Shortness of Breath EP Interpretation: Yes Interpretation: no consolidation, no pneumothorax, no acute cardiopulmonary disease, other - effusion/atelectasis LLL Impression: Other - atelectasis Electronically Signed by: Electronically signed by Marcus Velazquez MD Last Vital Signs Date Time Temp Pulse Resp B/P (MAP) Pulse Ox O2 Delivery O2 Flow Rate FiO2 07/20/18 13:10 101.1 129 16 136/98 100 Mechanical Ventilator 15.0 30 101.1 Status: improved Disposition: ADMITTED INPATIENT Condition: Serious Referrals: Sariah Bhat MD (PCP) Marcus Velazquez MD Jul 20, 2018 14:28
[2018-07-20] MEDS ORDERED: Albuterol/Ipratropium 3ml neb HHN PRN (15:04)
[2018-07-20] MEDS ORDERED: Miralax 17gm pkt ORAL PRN (15:05)
[2018-07-20] MEDS ORDERED: Morphine Sulfate 4mg/ml Inj (IV USE ONLY) IVP PRN (15:08)
[2018-07-20] MEDS ORDERED: LORazepam Inj 2mg/ml 1ml IV PRN (15:11)
[2018-07-20] MEDS ORDERED: Rx Monitoring Vancomycin MISC PRN (15:30)
[2018-07-20 15:44] VITALS: BP 133/91
[2018-07-20] MEDS ORDERED: Miralax 17gm pkt GT PRN (15:45)
[2018-07-20] MEDS ORDERED: NovoLOG Insulin Flexpen SUBQ SCH (16:30)
[2018-07-20] MEDS ORDERED: Vancomycin 1 GM in D5W 275 ML IVPB ONE (17:00)
[2018-07-20] MEDS: levETIRAcetam 500mg/5ml Liquid GT SCH (17:24)
[2018-07-20 20:00] VITALS: BP 118/82
[2018-07-20] MEDS: Vitamin A&D Oint 2oz Tube TOPIC SCH (21:13)
[2018-07-20] MEDS: Heparin 5000 units/ml inj SUBQ SCH (21:14)
[2018-07-21] VITALS: BP 114/96
[2018-07-21] MEDS: NovoLOG Insulin Flexpen SUBQ SCH ×4 (00:10→17:31)
[2018-07-21 04:00] VITALS: BP 114/91
--- NOTE | 2018-07-21 04:30 | History and Physical Report ---
DATE OF ADMISSION: 07/20/2018 "NOTE: POOR AUDIO QUALITY" CHIEF COMPLAINT: This is one of several admissions to [facility] of this 53-year-old patient because of tachycardia and sepsis. HISTORY OF PRESENT ILLNESS: The patient is a resident of an extended care facility subacute unit where he has been in precarious condition over the last several days. was admitted from [facility] he was more than six weeks for the treatment of sepsis state and respiratory failure. He was transferred to [facility] from [facility] where he was admitted with diagnosis of septic shock and pneumonia. At the time of this admission to the subacute unit, he was hemodynamically stable. He was on antibiotic, but was afebrile without tachycardia. He developed tachycardia and fever for the last 24 hours. He did not respond to systemic antibiotics. He was transferred to [facility] ER and was admitted. PAST MEDICAL HISTORY: The patient is status post cerebral hemorrhage hypoxic respiratory failure, on mechanical ventilation tube and has renal failure and seizure disorder. ALLERGIES: No known drug allergy. MEDICATIONS: The patient is on pantoprazole 40 mg daily, heparin 5000 units subcutaneously daily, vitamin D 5000 units daily, levetiracetam 1000 mg b.i.d., respiratory therapy. FAMILY HISTORY: Noncontributory. SOCIAL HISTORY: He is . He was born in [place]. He has been on SSI since his cerebral hemorrhage. HABITS: The patient did not smoke, drink, or use illicit drugs. REVIEW OF SYSTEMS: The patient is unable to give any information regarding his state of health. PHYSICAL EXAMINATION: VITAL SIGNS: The blood pressure is 114/96, his pulse is , respirations 16, and temperature 98.4 degrees. HEENT: Eyes were normal. Pupils were round, equal, and reactive to light. Sclerae were white. Conjunctivae were pink. Extraocular movement could not be assessed. Temporal arteries were palpable bilaterally. There was no bilateral temporal wasting. Visual altamirano to confrontation. Neglect sign could not be assessed. ENT, mucous membranes were not dehydrated. Auditory canals were clear and tympanic membranes could not be visualized. Nasal cavity was not congested. Nasal septum was intact. Soft palate was free of ulcerations. Pharynx was clear from exudate or tonsillar hypertrophy. Uvula carlene to phonation. Tongue was moist, midline, and normally papillated. NECK: Supple. There was no goiter. No mass. No lymphadenopathy. There was no JVD. No bruits. Carotid upstroke was 2+. LUNGS: Clear. HEART: PMI was in fifth left intercostal space in midclavicular line. There was normal S1 and normal S2. There was no murmur. No arrhythmia. No S3. No S4. No pericardial rub. ABDOMEN: Soft and nontender without organomegaly. There were no masses palpable. Normal bowel sounds without bruits. There was no guarding. No rebound tenderness. No ascites. No hernia. No CVA tenderness. Liver span was 8 cm, smooth, and nontender. EXTREMITIES: No cyanosis, no clubbing, and no edema. Extremities were warm. NEUROLOGICAL: Reflexes in biceps, triceps, and brachioradialis were symmetric and equal. Patellar retinaculum was symmetric and equal. Plantars were in extension. Cranial nerves II through XII were symmetric and equal. Cerebellar function, there was no tremor. No nystagmus. No extrapyramidal rigidity. Sensory exam to pinprick, cotton touch, and position, and motor strength could not be assessed. LABORATORY AND DIAGNOSTIC DATA: Hemoglobin is 15.6, hematocrit of 50.3 with MCV of 91, WBC of 22,000, and platelets are 311,000. His BUN and creatinine are 47 and 1.9 respectively. His sodium is 144, potassium 4.2, chloride 110, and CO2 is 32. His lactic acid is 1.9. His calcium was . Total CK was 1618. ProBNP is 285. Total protein is 6.6. Albumin is 2.8. Chest x-ray revealed small pleural effusion, unchanged from six weeks ago, and subsegmental atelectasis in left lower lobe. IMPRESSION: The patient became hypotensive, tachycardic, and febrile with leukocytosis indicating infection state. PLAN: Plan is to start on vancomycin 1 g IV piggyback q.12 h. and cefepime 1 g IV piggyback q.12 h. Cardiac rhythm reviewed. Pulmonary audit consultant and Infectious Disease audit consultant was called to assist in the management of this case. Repeat laboratory tests will be done in a.m. Sariah Bhat M.D. DR: MEGAN JOB#: [id number] CC:
[2018-07-21 04:34] LABS: BASOPHILS % (AUTO) 1.1 % (0.0-2.0); EOSINOPHILS % (AUTO) 1.3 % (0.0-3.0); HEMATOCRIT 41.5 % (42.0-52.0); HEMOGLOBIN 13.1 G/DL (14.2-18.0); LYMPHOCYTES % (AUTO) 13.3 % (20.0-45.0); MEAN CORPUSCULAR VOLUME 89 FL (80-99); MONOCYTES % (AUTO) 7.5 % (1.0-10.0); NEUTROPHILS % (AUTO) 76.8 % (45.0-75.0); PLATELET COUNT 281 K/UL (150-450); RED BLOOD COUNT 4.65 M/UL (4.70-6.10); WHITE BLOOD COUNT 15.1 K/UL (4.8-10.8)
[2018-07-21 04:53] LABS: ALBUMIN 2.6 G/DL (3.4-5.0); ANION GAP 10 mmol/L (5-15); ANION GAP 11 mmol/L (5-15); BLOOD UREA NITROGEN 34 mg/dL (7-18); BLOOD UREA NITROGEN 35 mg/dL (7-18); CALCIUM 10.3 MG/DL (8.5-10.1); CALCIUM 10.5 MG/DL (8.5-10.1); CARBON DIOXIDE 23 MMOL/L (21-32); CARBON DIOXIDE 24 MMOL/L (21-32); CHLORIDE 113 MMOL/L (98-107); CHLORIDE 115 MMOL/L (98-107); CREATININE 1.4 MG/DL (0.55-1.30); CREATININE 1.5 MG/DL (0.55-1.30); PHOSPHORUS 1.4 MG/DL (2.5-4.9); POTASSIUM 3.7 MMOL/L (3.5-5.1); POTASSIUM 3.9 MMOL/L (3.5-5.1); SODIUM 147 MMOL/L (136-145); SODIUM 149 MMOL/L (136-145)
--- NOTE | 2018-07-21 07:17 | Consultation ---
History of Present Illness General Date patient seen: Jul 21, 2018 Time patient seen: 06:15 Chief Complaint: Fever Referring physician: dr Bhat Reason for Consultation: pulm consult Present Illness HPI 53 y/old male with PMH of VDRF, tracheostomy status, s/p intracerebral hemorrhage. COPD, DM, seizure disorder, BPH, DM, dysphagia, G tube, colostomy status, renal insufficiency, was sent for evaluation from SNF due to fever. Upon evaluation in ED patient was found to be febrile T-102 and tachycardic-155. Laboratory workup revealed significant leukocytosis WBC-22.8. Lactic acid -1.9 BUN 47, creatinine 1.8. Pro BNP 285. Troponin negative ; ECG with ST, no acute ischemic changes. UA grossly + for UTI CXR with atelectasis versus L base infiltrate Septic workup initiated in ED. Patient was admitted for further management . Allergies: Coded Allergies: AZTREONAM (Verified Allergy, Unknown, 05/13/18) Medication History Scheduled Baclofen* (Baclofen*), 10 MG GT THREE TIMES A DAY, (Reported) Bisacodyl* (Dulcolax*), 10 MG RECTAL DAILY, (Reported) Calcium Carbonate (Calcium Carbonate), 1,000 MG GT BID, (Reported) Chlorhexidine Gluconate (Peridex), 15 ML MM Q12HR, (Reported) Cholecalciferol (Vitamin D3)* (Vitamin D*), 5,000 UNIT GT ONCE A WEEK, (Reported ) Clonidine Hcl* (Catapres*), 0.1 MG GT EVERY 6 HOURS, (Reported) Cranberry (Cranberry), 400 MG GT DAILY, (Reported) Dextran 70/Hypromellose (Artificial Tears Eye Drops*), 1 DROP BOTH EYES Q4HR, ( Reported) Docusate Sodium* (Docusate Sodium*), 100 MG GT TWICE A DAY, (Reported) Famotidine (Famotidine), 20 MG GT DAILY, (Reported) Fenofibrate Nanocrystallized (Fenofibrate), 145 MG GT DAILY, (Reported) Glycopyrrolate (Robinul), 2 MG GT BID, (Reported) Insulin Regular, Human* (Novolin R*), 0 SUBQ .SLIDING SCALE, (Reported) Ipratropium/Albuterol Sulfate (DuoNeb 0.5-3(2.5)mg/3ml), 3 ML HHN Q3HR, ( Reported) Levetiracetam* (Levetiracetam*), 1,000 MG GT TID, (Reported) Losartan Potassium* (Losartan Potassium*), 25 MG GT DAILY, (Reported) Multivitamin With Minerals (Multivitamins With Minerals*), 1 TAB GT DAILY, ( Reported) Nystatin* (Nystatin*), 1 APPLIC TOPIC THREE TIMES A DAY, (Reported) Polyethylene Glycol 3350* (Miralax*), 17 GM GT DAILY, (Reported) Sitagliptin* (Januvia*), 50 MG GT DAILY, (Reported) Spironolactone* (Aldactone*), 25 MG GT DAILY, (Reported) Scheduled PRN Acetaminophen 160MG/5ML* (Acetaminophen*), 20.3 ML GT Q4HR PRN for Fever/ Headache/Mild Pain, (Reported) Albuterol Sulfate* (Albuterol Sulfate Hhn*), 3 ML INH Q2H PRN for Shortness of Breath, (Reported) Miscellaneous Medications Arginine/Ascorbate Sod/Janay AC (Arginaid Powder), 1 EACH PO, (Reported) Lactulose (Lactulose*), 30 ML GT, (Reported) Tuberculin,Purif.prot.deriv. (Aplisol), 5 TU ID, (Reported) Vancomycin Hcl (Vancomycin), 750 MG IVPB, (Reported) Patient History Limited by: medical condition History Provided By: Medical Record Healthcare decision maker Resuscitation status Full Code Advanced Directive on File No Past Medical/Surgical History Past Medical/Surgical History: (1) Gastrostomy tube dependent (2) Colostomy in place (3) Vegetative state (4) Sepsis (5) UTI (urinary tract infection) (6) Acute on chronic renal insufficiency (7) Acute on chronic respiratory failure Review of Systems ROS Narrative unable to obtain 2 to AMS Physical Exam General Appearance: other - lethargic, on Vent AC 600-16-30% Lines, tubes and drains: peripheral, trach - Portex#7, secretions moderate amount, white color, thick consistency , gtube HEENT: other - protruded tongue Neck: trach - Portex #7 Respiratory/Chest: on vent, other - few scattered rhonchi Cardiovascular/Chest: tachycardia - ST on monitor Abdomen: normal bowel sounds, non tender, soft, feeding tube - G tube, other - colostomy Genitourinary/Rectal: kendrick Neurologic: abnormal gait - bedridden , other - letahrgic Musculoskeletal: atrophy Last 24 Hour Vital Signs Date Time Temp Pulse Resp B/P (MAP) Pulse Ox O2 Delivery O2 Flow Rate FiO2 07/21/18 05:24 127 17 30 07/21/18 04:00 Mechanical Ventilator 07/21/18 04:00 125 07/21/18 04:00 30 07/21/18 04:00 98.5 120 19 114/91 (99) 99 98.5 07/21/18 03:15 126 17 30 07/21/18 01:05 124 17 30 07/21/18 00:00 Mechanical Ventilator 07/21/18 00:00 125 07/21/18 00:00 98.4 125 16 114/96 (102) 99 98.4 07/20/18 23:22 125 16 30 07/20/18 20:43 125 17 30 07/20/18 20:00 98.1 121 18 118/82 (94) 100 98.1 07/20/18 20:00 124 07/20/18 20:00 30 07/20/18 20:00 Mechanical Ventilator 07/20/18 19:11 127 17 30 07/20/18 17:10 131 18 30 07/20/18 16:00 126 07/20/18 15:46 Mechanical Ventilator 30.0 07/20/18 15:44 97.7 126 18 133/91 (105) 97.7 07/20/18 15:31 125 07/20/18 14:51 101.1 129 18 136/98 100 Mechanical Ventilator 15.0 30 101.1 07/20/18 14:33 130 18 30 07/20/18 13:10 101.1 129 16 136/98 100 Mechanical Ventilator 15.0 30 101.1 07/20/18 12:58 101.1 133 16 143/102 100 Mechanical Ventilator 15.0 30 101.1 07/20/18 12:41 15.0 30 07/20/18 12:30 143 16 30 07/20/18 11:55 101.1 07/20/18 11:25 104.0 07/20/18 11:12 104.0 147 16 137/101 99 Mechanical Ventilator 104.0 07/20/18 11:06 150 18 30 07/20/18 11:06 150 18 Mechanical Ventilator 15.0 30 07/20/18 11:04 102.0 155 18 139/60 100 Mechanical Ventilator 102.0 Intake and Output 07/20/18 07/21/18 19:00 07:00 Intake Total 2190 ml 270 ml Output Total 1500 ml Balance 690 ml 270 ml Intake Free Water 100 ml IV Total 2000 ml Tube Feeding 90 ml 270 ml Output Urine Total 1100 ml Stool Total 400 ml # Bowel Movements 2 Laboratory Tests Test 07/20/18 11:15 07/20/18 12:00 07/21/18 04:10 White Blood Count 22.8 K/UL (4.8-10.8) *H 15.1 K/UL (4.8-10.8) H Red Blood Count 5.55 M/UL (4.70-6.10) 4.65 M/UL (4.70-6.10) L Hemoglobin 15.6 G/DL (14.2-18.0) 13.1 G/DL (14.2-18.0) L Hematocrit 50.3 % (42.0-52.0) 41.5 % (42.0-52.0) L Mean Corpuscular Volume 91 FL (80-99) 89 FL (80-99) Mean Corpuscular Hemoglobin 28.1 PG (27.0-31.0) 28.1 PG (27.0-31.0) Mean Corpuscular Hemoglobin Concent 31.0 G/DL (32.0-36.0) L 31.5 G/DL (32.0-36.0) L Red Cell Distribution Width 14.4 % (11.6-14.8) 14.0 % (11.6-14.8) Platelet Count 311 K/UL (150-450) 281 K/UL (150-450) Mean Platelet Volume 9.3 FL (6.5-10.1) 9.4 FL (6.5-10.1) Neutrophils (%) (Auto) % (45.0-75.0) 76.8 % (45.0-75.0) H Lymphocytes (%) (Auto) % (20.0-45.0) 13.3 % (20.0-45.0) L Monocytes (%) (Auto) % (1.0-10.0) 7.5 % (1.0-10.0) Eosinophils (%) (Auto) % (0.0-3.0) 1.3 % (0.0-3.0) Basophils (%) (Auto) % (0.0-2.0) 1.1 % (0.0-2.0) Differential Total Cells Counted 100 Neutrophils % (Manual) 88 % (45-75) H Lymphocytes % (Manual) 6 % (20-45) L Monocytes % (Manual) 3 % (1-10) Eosinophils % (Manual) 0 % (0-3) Basophils % (Manual) 1 % (0-2) Myelocytes % 1 % (0-0) H Band Neutrophils 1 % (0-8) Platelet Estimate Adequate Platelet Morphology Normal Lactic Acid Level 1.90 mmol/L (0.4-2.0) Urine Color Yellow Urine Appearance Slightly cloudy Urine pH 6 (4.5-8.0) Urine Specific Ryan 1.010 (1.005-1.035) Urine Protein 4+ (NEGATIVE) H Urine Glucose (UA) 2+ (NEGATIVE) H Urine Ketones Negative (NEGATIVE) Urine Blood 5+ (NEGATIVE) H Urine Nitrite Negative (NEGATIVE) Urine Bilirubin Negative (NEGATIVE) Urine Urobilinogen Normal MG/DL (0.0-1.0) Urine Leukocyte Esterase 2+ (NEGATIVE) H Urine RBC 15-20 /HPF (0 - 0) H Urine WBC 30-40 /HPF (0 - 0) H Urine Squamous Epithelial Cells Occasional /LPF Urine Bacteria Few /HPF (NONE) Sodium Level 144 MMOL/L (136-145) 149 MMOL/L (136-145) H Potassium Level 4.2 MMOL/L (3.5-5.1) 3.9 MMOL/L (3.5-5.1) Chloride Level 110 MMOL/L (98-107) H 115 MMOL/L (98-107) H Carbon Dioxide Level 22 MMOL/L (21-32) 24 MMOL/L (21-32) Anion Gap 12 mmol/L (5-15) 10 mmol/L (5-15) Blood Urea Nitrogen 47 mg/dL (7-18) H 35 mg/dL (7-18) H Creatinine 1.8 MG/DL (0.55-1.30) H 1.4 MG/DL (0.55-1.30) H Estimat Glomerular Filtration Rate 48.5 mL/min (>60) > 60 mL/min (>60) Glucose Level 332 MG/DL (74-106) H 248 MG/DL (74-106) H Calcium Level 10.1 MG/DL (8.5-10.1) 10.3 MG/DL (8.5-10.1) H Total Bilirubin 0.5 MG/DL (0.2-1.0) Aspartate Amino Transf (AST/SGOT) 41 U/L (15-37) H Alanine Aminotransferase (ALT/SGPT) 26 U/L (12-78) Alkaline Phosphatase 99 U/L (46-116) Total Creatine Kinase 1618 U/L (26-308) H Creatine Kinase MB < 0.5 NG/ML (0.0-3.6) Creatine Kinase MB Relative Index 0.0 Troponin I 0.048 ng/mL (0.000-0.056) Pro-B-Type Natriuretic Peptide 285 pg/mL (0-125) H Total Protein 8.6 G/DL (6.4-8.2) H Albumin 2.8 G/DL (3.4-5.0) L 2.6 G/DL (3.4-5.0) L Globulin 5.8 g/dL Albumin/Globulin Ratio 0.5 (1.0-2.7) L Phosphorus Level 1.4 MG/DL (2.5-4.9) L Microbiology Date/Time Source Procedure Growth Status 07/20/18 18:00 Sputum Gram Stain - Final Resulted 07/20/18 18:00 Sputum Sputum Culture Pending Resulted Height (Feet): 5 Height (Inches): 8.00 Weight (Pounds): 160 Medications Current Medications Medications (Trade) Dose Ordered Sig/Va Route PRN Reason Start Time Stop Time Status Last Admin Dose Admin Acetaminophen (Tylenol) 650 mg Q4H PRN ORAL FEVER 07/20/18 15:05 08/19/18 15:04 Albuterol/ Ipratropium (Albuterol/ Ipratropium) 3 ml Q4H PRN HHN Shortness of Breath 07/20/18 15:04 07/25/18 15:03 Baclofen (Lioresal) 10 mg THREE TIMES A DAY GT 07/20/18 18:00 08/19/18 17:59 07/20/18 17:24 Dextrose (Dextrose 50%) 25 ml Q30M PRN IV Hypoglycemia 07/20/18 15:12 08/19/18 15:11 Heparin Sodium (Porcine) (Heparin 5000 units/ml) 5,000 units EVERY 12 HOURS SUBQ 07/20/18 21:00 08/19/18 20:59 07/20/18 21:14 Insulin Aspart (NovoLOG) Q6HR SUBQ 07/21/18 00:00 08/19/18 16:29 07/21/18 06:07 Levetiracetam (Keppra) 1,000 mg BID GT 07/20/18 18:00 08/19/18 17:59 07/20/18 17:24 Lorazepam (Ativan 2mg/ml 1ml) 2 mg Q2H PRN IV For Anxiety 07/20/18 15:11 07/27/18 15:10 Morphine Sulfate (Morphine Sulfate) 4 mg Q4H PRN IVP Severe Pain (Pain Scale 7-10) 07/20/18 15:08 07/27/18 15:07 Ondansetron HCl (Zofran) 4 mg Q6H PRN IVP Nausea & Vomiting 07/20/18 15:05 08/19/18 15:04 Pantoprazole (Protonix) 40 mg DAILY IV 07/21/18 09:00 08/20/18 08:59 Polyethylene Glycol (Miralax) 17 gm DAILYPRN PRN GT Constipation 07/20/18 15:45 08/19/18 15:04 Sitagliptin Phosphate (Januvia) 50 mg DAILY GT 07/21/18 09:00 08/20/18 08:59 Vancomycin HCl (Rx Monitoring Vancomycin) 1 ea DAILY PRN MISC PER RX 07/20/18 15:30 08/19/18 15:29 Vitamin A/Vitamin D (A & D Oint) 1 applic Q12H TOPIC 07/20/18 21:00 08/19/18 20:59 07/20/18 21:13 Assessment/Plan Assessment/Plan ASSESSMENT sepsis UTI possible PNA acute on chronic hypoxemic respiratory failure chronic VDRF/tracheostomy status acute on chronic remal failrue possible dehydration chronic encephalopathy with vegetative state dysphagia,. GT feeding DM COPD seizure disorder hx of intracerebral hemorrhage colostomy status PLAN OF CARE ANDREW status IVF empiric abx, fup with cx ID consult vent support trach care pulm toilet baseline ABG and titrate settings as needed fup with CXR in am Venous Duplex BLE monitor renal parameters and e/lytes, correct lytes as needed, avoid nephrotoxic acute RF likely due to sepsis and probable dehydration strict aspiration precautions, GT feeding, monitor tolerance, G tube site care seizure precautions, continue Keppra BS management with Januvia and SSI colostomy care wound care consult pain management prn supportive care DVT, GI prophayxlis case discussed and evaluated by supervising physician Radha Kaufman NP Jul 21, 2018 07:17
[2018-07-21 08:00] VITALS: BP 127/78
[2018-07-21] MEDS: sitaGLIPtin 25mg tab GT SCH (08:13)
[2018-07-21] MEDS: Pantoprazole Inj IV SCH (08:13)
[2018-07-21] MEDS: Vitamin A&D Oint 2oz Tube TOPIC SCH ×2 (08:13→21:23)
[2018-07-21] MEDS: levETIRAcetam 500mg/5ml Liquid GT SCH ×2 (08:13→17:30)
[2018-07-21] MEDS: Heparin 5000 units/ml inj SUBQ SCH ×2 (08:16→21:26)
[2018-07-21] MEDS: D5 1/4NS 1000ml 1,000 ML IV SCH (08:25)
[2018-07-21 12:00] VITALS: BP 120/98
[2018-07-21] MEDS ORDERED: Sodium Phosphate 30 MM in NS 275 ML IV ONE (12:45)
[2018-07-21] MEDS ORDERED: Tubing IV Secondary IV ONE (15:15)
[2018-07-21] MEDS ORDERED: NS 275ml ONE (15:15)
[2018-07-21 16:00] VITALS: BP 102/78
[2018-07-21 20:00] VITALS: BP 108/78
[2018-07-22] VITALS: BP 120/89
[2018-07-22] MEDS: NovoLOG Insulin Flexpen SUBQ SCH ×5 (00:03→23:56)
--- NOTE | 2018-07-22 01:30 | Progress Note ---
DATE: 07/21/2018 SUBJECTIVE: The patient spiked fever today to 100. He has tachycardia between 124 to 130. PHYSICAL EXAMINATION: VITAL SIGNS: Blood pressure 102/78, his pulse , respirations 18, and temperature was 100. HEENT: Eyes were normal. ENT, mucous membranes were moist and intact. NECK: Supple with no JVD without lymph nodes. Tracheostomy site is clean. LUNGS: Clear without rhonchi, rales, or wheezing. Secretions are small, thin, and beckman. HEART: Normal sounds with regular beats. There is no S3, S4, or pericardial rub. ABDOMEN: Soft and nontender with normal bowel sounds. Gastrostomy site is clean. EXTREMITIES: Warm without cyanosis, clubbing, or edema. LABORATORY AND DIAGNOSTIC DATA: His hemoglobin is 13.1, hematocrit 31.5 with MCV of 89, WBC 15.1, and platelets 281. His WBC yesterday was 22.8. His BUN and creatinine are 35 and 1.4 respectively. His sodium is 149, potassium 3.9, chloride 115, and CO2 is 24. His glucose is 248. His calcium is 10.3. His albumin is 2.3. His troponin is 0.048. Yesterday, chest x-ray revealed subsegmental atelectasis associated with pneumonia on the left lower lobe and left pleural effusion. IMPRESSION: The patient has left lower lobe pneumonia. He is currently on vancomycin 1 g IV piggyback q.24 h., managed by the pharmacist. The patient has seizure disorder for which he is on levetiracetam. He is on morphine sulfate 4 mg q.4 h. p.r.n. for pain. He is on Januvia 50 mg daily plus sliding scale regular insulin of moderate intensity and respiratory therapy with albuterol sulfate, ipratropium bromide inhalation therapy every 6 hours. Repeat laboratory tests will be done in the a.m. We will repeat chest x-ray. Sariah Bhat M.D. DR: KETAN JOB#: [id number] CC:
[2018-07-22] MEDS: D5 1/4NS 1000ml 1,000 ML IV SCH ×2 (03:39→23:22)
[2018-07-22 04:00] VITALS: BP 139/96
--- NOTE | 2018-07-22 06:51 | Consultation ---
Consult Note Assessment/Plan Hematology Consultation ELMER JACOBO: Sariah Bhat DOS: 07/22/2018 RFC: Anemia, FTT HPI 52 year old male with history of chronic respiratory failure who has prior trach and is vent dependant, BPH, GERD, HTN, DM2, seizure disorder, colostomy, feeding tube, and chronic constipation who presents to ED on 05/13 with fever, tachycardia and hypotension / sepsis. During admission CT Scan performed and ostomy noted with herniation of bowel into colostomy. Surgery called to evaluate. patient seen, chart reviewed, patient examined. Has been started on abx Coded Allergies: AZTREONAM (Verified Allergy, Unknown, 05/13/18) Medication History Scheduled Baclofen* (Baclofen*), 10 MG GT THREE TIMES A DAY, (Reported) Bisacodyl* (Dulcolax*), 10 MG RECTAL DAILY, (Reported) Calcium Carbonate (Calcium Carbonate), 1,000 MG GT BID, (Reported) Chlorhexidine Gluconate (Peridex), 15 ML MM Q12HR, (Reported) Cholecalciferol (Vitamin D3)* (Vitamin D*), 5,000 UNIT GT ONCE A WEEK, (Reported ) Clonidine Hcl* (Catapres*), 0.1 MG GT EVERY 6 HOURS, (Reported) Cranberry (Cranberry), 400 MG GT DAILY, (Reported) Dextran 70/Hypromellose (Artificial Tears Eye Drops*), 1 DROP BOTH EYES Q4HR, ( Reported) Docusate Sodium* (Docusate Sodium*), 100 MG GT TWICE A DAY, (Reported) Famotidine (Famotidine), 20 MG GT DAILY, (Reported) Glycopyrrolate (Robinul), 2 MG GT BID, (Reported) Insulin Regular, Human* (Novolin R*), 0 SUBQ .SLIDING SCALE, (Reported) Ipratropium/Albuterol Sulfate (DuoNeb 0.5-3(2.5)mg/3ml), 3 ML HHN Q3HR, ( Reported) Levetiracetam* (Levetiracetam*), 1,000 MG GT TID, (Reported) Losartan Potassium* (Losartan Potassium*), 25 MG GT DAILY, (Reported) Multivitamin With Minerals (Multivitamins With Minerals*), 1 TAB GT DAILY, ( Reported) Nystatin* (Nystatin*), 1 APPLIC TOPIC THREE TIMES A DAY, (Reported) Polyethylene Glycol 3350* (Miralax*), 17 GM GT DAILY, (Reported) Sitagliptin* (Januvia*), 50 MG GT DAILY, (Reported) Spironolactone* (Aldactone*), 25 MG GT DAILY, (Reported) Scheduled PRN Acetaminophen 160MG/5ML* (Acetaminophen*), 20.3 ML GT Q4HR PRN for Fever/ Headache/Mild Pain, (Reported) Miscellaneous Medications Lactulose (Lactulose*), 30 ML GT, (Reported) Patient History Limited by: medical condition History Provided By: Medical Record, PMD Healthcare decision maker unk Resuscitation status Full Code Advanced Directive on File No Past Medical/Surgical History Past Medical/Surgical History: (1) Parastomal hernia (2) Diabetes mellitus (3) Vegetative state (4) Acute on chronic renal insufficiency (5) Colostomy in place (6) Acute on chronic respiratory failure (7) Severe sepsis (8) Gastrostomy tube dependent (9) Stoma malfunction Review of Systems ROS Narrative cannot obtain given medical condition Physical Exam General Appearance: no apparent distress Lines, tubes and drains: central line, trach/vent HEENT: mucous membranes moist Neck: trach Respiratory/Chest: on vent Cardiovascular/Chest: regular rhythm Abdomen: normal bowel sounds, soft, distended, feeding tube, other - loop colostomy with parastomal hernia Extremities: other Skin Exam: warm/dry Neurologic: unresponsiveness Labs: reviewed Imaging: reviewed Assessment/Recs: # Leukocytosis - sepsis with elevated temperature of 103 degrees Fahrenheit. Had uti v bacteremia (CoNS) on abx, has improved. had infection on prior admission. --> Pt on antibiotics, has received a dose of Zosyn and currently is on vancomycin q.12 h. --> Appreciate Infectious Disease recs --> 2D echo per ID performed on 05/22: No discrete vegetations seen, however SBE may not be excluded by transthoracic 2-D echo. --> CURRENT WBC of 7.9, wnl --> Currently afebrile # Anemia of chronic disease. No hemolysis, peripheral smear reviewed, ferritin was elevated. --> Continue to closely monitor --> Hgb goal >7 --> CURRENT Hgb 13.1--> hemoconcentration # Acute kidney injury. --> Currently on IV fluids, IV bolus given to see if the patient responds along with IV pressor as needed. --> Closely monitor with Nephrology team. # Septic shock, use antibiotic per ID services. --> potential uti, on abx and bacteremia # Respiratory failure, status post tracheostomy, on mechanical ventilation per Dr. Goetz --> Remains on vent --> 06/03 CXR: Unchanged left pleural effusion versus scarring, over 4 days # Hypercalcemia. Monitor PTH and calcium level. The time the note was entered does not necessarily correspond to the time the patient was seen. Jimmy Fleming MD Jul 22, 2018 06:51
[2018-07-22 07:34] LABS: BASOPHILS % (AUTO) 0.6 % (0.0-2.0); HEMATOCRIT 35.9 % (42.0-52.0); HEMOGLOBIN 11.3 G/DL (14.2-18.0); LYMPHOCYTES % (AUTO) 16.1 % (20.0-45.0); MEAN CORPUSCULAR VOLUME 91 FL (80-99); MONOCYTES % (AUTO) 6.3 % (1.0-10.0); PLATELET COUNT 263 K/UL (150-450); RED BLOOD COUNT 3.96 M/UL (4.70-6.10); RED CELL DISTRIBUTION WIDTH 14.1 % (11.6-14.8); WHITE BLOOD COUNT 10.1 K/UL (4.8-10.8)
[2018-07-22 07:59] LABS: ANION GAP 12 mmol/L (5-15); BLOOD UREA NITROGEN 21 mg/dL (7-18); CALCIUM 9.2 MG/DL (8.5-10.1); CARBON DIOXIDE 21 MMOL/L (21-32); CHLORIDE 105 MMOL/L (98-107); CREATININE 1.4 MG/DL (0.55-1.30); POTASSIUM 2.9 MMOL/L (3.5-5.1); SODIUM 137 MMOL/L (136-145)
[2018-07-22 08:00] VITALS: BP 118/79
[2018-07-22] MEDS: Pantoprazole Inj IV SCH (08:59)
[2018-07-22] MEDS: levETIRAcetam 500mg/5ml Liquid GT SCH ×2 (08:59→18:33)
[2018-07-22] MEDS: Ascorbic Acid 500mg tab GT SCH (09:00)
[2018-07-22] MEDS: sitaGLIPtin 25mg tab GT SCH (09:00)
[2018-07-22] MEDS: Heparin 5000 units/ml inj SUBQ SCH ×2 (09:01→20:45)
[2018-07-22] MEDS: Vitamin A&D Oint 2oz Tube TOPIC SCH ×2 (09:02→20:43)
--- NOTE | 2018-07-22 10:19 | Pulmonolgy Critical Care Note ---
Critical Care - Asmt/Plan Problems: (1) Acute on chronic respiratory failure (2) Sepsis (3) UTI (urinary tract infection) (4) Diabetes mellitus (5) Vegetative state (6) Colostomy in place Respiratory: monitor respiratory rate, adjust FIO2 Cardiac: continue pressors, continue to monitor HR/BP Renal: F/U I&O, keep IV fluid Infectious Disease: check cultures Gastrointestinal: continue feedings/current rate Endocrine: monitor blood sugar, check HgA1C, continue sliding scale insulin Hematologic: transfuse if hgb<8.5 Neurologic: PRN Morphine, keep patient comfortable Prophylaxis: Protonix Disposition: keep in ICU Time Spent (Minutes): 40 Notes Reviewed: renal Discussed with: nurses, consultants, clinical case managerservice department manager - Objective Last 24 Hour Vital Signs Date Time Temp Pulse Resp B/P (MAP) Pulse Ox O2 Delivery O2 Flow Rate FiO2 07/22/18 09:53 112 17 30 07/22/18 07:47 113 27 30 07/22/18 05:21 108 22 30 07/22/18 04:00 Mechanical Ventilator 07/22/18 04:00 30 07/22/18 04:00 99.0 111 19 139/96 (110) 100 99.0 07/22/18 04:00 111 07/22/18 03:30 109 18 30 07/22/18 01:33 108 18 30 07/22/18 00:00 30 07/22/18 00:00 103 07/22/18 00:00 98.9 103 19 120/89 (99) 100 98.9 07/22/18 00:00 Mechanical Ventilator 07/21/18 23:29 110 17 30 07/21/18 21:53 99.5 07/21/18 21:44 118 18 30 07/21/18 21:23 100.7 07/21/18 20:05 100.7 100.7 07/21/18 20:00 100.4 120 19 108/78 (88) 99 100.4 07/21/18 20:00 30 07/21/18 20:00 Mechanical Ventilator 07/21/18 20:00 117 07/21/18 19:59 124 22 30 07/21/18 16:55 126 18 30 07/21/18 16:14 125 07/21/18 16:00 Mechanical Ventilator 07/21/18 16:00 30 07/21/18 16:00 99.9 125 17 102/78 (86) 100 99.9 07/21/18 15:27 130 18 30 07/21/18 13:03 128 17 30 07/21/18 12:55 100.0 07/21/18 12:00 100.0 127 18 120/98 (105) 100 100.0 07/21/18 12:00 Mechanical Ventilator 07/21/18 12:00 30 07/21/18 12:00 127 07/21/18 11:27 127 17 30 Status: sedated, somnolent Condition: critical HEENT: atraumatic Lungs: clear Heart: HR/BP unstable, regular Abdomen: non-tender, feeding tube Extremities: edema Decubiti: location Micro: Microbiology Date/Time Source Procedure Growth Status 07/20/18 11:15 Blood Blood Culture - Preliminary NO GROWTH AFTER 24 HOURS Resulted 07/20/18 11:00 Blood Blood Culture - Preliminary NO GROWTH AFTER 24 HOURS Resulted 07/20/18 18:00 Sputum Gram Stain - Final Resulted 07/20/18 18:00 Sputum Culture - Preliminary Gram Negative Bacillus 1 Resulted 07/20/18 12:00 Urine,Clean Catch Urine Culture - Preliminary Gram Negative Bacillus 1 Resulted 07/20/18 12:00 Rectum VRE Culture - Final Enterococcus Faecalis - Vre Resulted 07/20/18 12:00 Rectum Pending Resulted Accucheck: 223 Critical Care - Subjective ROS Limited/Unobtainable: Yes Condition: critical EKG Rhythm: Sinus Rhythm FI02: 30 Vent Support Breath Rate: 16 Vent Support Mode: AC Vent Tidal Volume: 600 Sputum Amount: Moderate PEEP: 5.0 PIP: 29 Tube Feeding Amount: 50 I&O: Intake and Output 07/21/18 07/22/18 19:00 07:00 Intake Total 1405.0 ml 1095 ml Output Total 650 ml 750 ml Balance 755.0 ml 345 ml Intake Free Water 260 ml IV Total 785.0 ml 575 ml Tube Feeding 360 ml 520 ml Output Urine Total 550 ml 500 ml Stool Total 100 ml 250 ml Labs: Laboratory Tests Test 07/22/18 07:06 07/22/18 07:59 White Blood Count 10.1 K/UL (4.8-10.8) Red Blood Count 3.96 M/UL (4.70-6.10) L Hemoglobin 11.3 G/DL (14.2-18.0) L Hematocrit 35.9 % (42.0-52.0) L Mean Corpuscular Volume 91 FL (80-99) Mean Corpuscular Hemoglobin 28.6 PG (27.0-31.0) Mean Corpuscular Hemoglobin Concent 31.5 G/DL (32.0-36.0) L Red Cell Distribution Width 14.1 % (11.6-14.8) Platelet Count 263 K/UL (150-450) Mean Platelet Volume 10.3 FL (6.5-10.1) H Neutrophils (%) (Auto) 73.0 % (45.0-75.0) Lymphocytes (%) (Auto) 16.1 % (20.0-45.0) L Monocytes (%) (Auto) 6.3 % (1.0-10.0) Eosinophils (%) (Auto) 4.0 % (0.0-3.0) H Basophils (%) (Auto) 0.6 % (0.0-2.0) Sodium Level 137 MMOL/L (136-145) Potassium Level 2.9 MMOL/L (3.5-5.1) L Chloride Level 105 MMOL/L (98-107) Carbon Dioxide Level 21 MMOL/L (21-32) Anion Gap 12 mmol/L (5-15) Blood Urea Nitrogen 21 mg/dL (7-18) H Creatinine 1.4 MG/DL (0.55-1.30) H Estimat Glomerular Filtration Rate > 60 mL/min (>60) Glucose Level 678 MG/DL (74-106) #*H Calcium Level 9.2 MG/DL (8.5-10.1) Calcium (Send out) Pending Parathyroid Hormone (Intact) Pending Arterial Blood pH 7.471 (7.350-7.450) Arterial Blood Partial Pressure CO2 26.9 mmHg (35.0-45.0) L Arterial Blood Partial Pressure O2 124.3 mmHg (75.0-100.0) H Arterial Blood HCO3 19.2 mmol/L (22.0-26.0) L Arterial Blood Oxygen Saturation 98.1 % (95-100) Arterial Blood Base Excess -3.3 (-2-2) L Kameron Test Positive Nico Goetz MD Jul 22, 2018 10:19
[2018-07-22 10:48] LABS: ANION GAP 12 mmol/L (5-15); BLOOD UREA NITROGEN 23 mg/dL (7-18); CARBON DIOXIDE 22 MMOL/L (21-32); CHLORIDE 113 MMOL/L (98-107); CREATININE 1.3 MG/DL (0.55-1.30); POTASSIUM 3.4 MMOL/L (3.5-5.1); SODIUM 147 MMOL/L (136-145)
--- NOTE | 2018-07-22 11:09 | Diagnostic Imaging Report ---
Indication: Shortness of breath Technique: One view of the chest Comparison: 07/20/2018 Findings: Tracheostomy remains. Left basilar scarring, intimal retrocardiac consolidation, and pleural fluid persists, unchanged. Right lung and pleural space remain clear. Left upper lung is clear. The heart is borderline enlarged. Impression: Unchanged, over 2 days, findings as above.
[2018-07-22 11:57] VITALS: BP 119/78
--- NOTE | 2018-07-22 11:58 | Consultation ---
History of Present Illness General Date patient seen: Jul 22, 2018 Chief Complaint: Fever Present Illness HPI 52 y/o M with hx of chronic resp failure vent/trach dependent, ICH, COPD, Dm2, seizure disoder, BPH, DM2, dysphagia, G tube, colostomy status, SN[facility] resident presents to ED on 07/20 with fever. In ED T up to 102 and HR up to 155. WBC 22 and elevated lactic acid. CXR showed L basilar infiltrate and u/a suggestive of infection. Of note, patient was admitted here on Mid April 2018 for 1 month with sepsis 2ry to UTI, Enterobacter and ESBL proteus bacteremia as well as CONS bacteremia; PICC line infection s/p removal and replacement. Was treated for presumed endocarditis at the time as recurrent CONS bacteremia. Tm up to 104. Tm int he last 24hrs is 100.7 WBC upon admission in the 20s, now resolved bacteremic with GPC Allergies: Coded Allergies: AZTREONAM (Verified Allergy, Unknown, 05/13/18) Medication History Scheduled Baclofen* (Baclofen*), 10 MG GT THREE TIMES A DAY, (Reported) Bisacodyl* (Dulcolax*), 10 MG RECTAL DAILY, (Reported) Calcium Carbonate (Calcium Carbonate), 1,000 MG GT BID, (Reported) Chlorhexidine Gluconate (Peridex), 15 ML MM Q12HR, (Reported) Cholecalciferol (Vitamin D3)* (Vitamin D*), 5,000 UNIT GT ONCE A WEEK, (Reported ) Clonidine Hcl* (Catapres*), 0.1 MG GT EVERY 6 HOURS, (Reported) Cranberry (Cranberry), 400 MG GT DAILY, (Reported) Dextran 70/Hypromellose (Artificial Tears Eye Drops*), 1 DROP BOTH EYES Q4HR, ( Reported) Docusate Sodium* (Docusate Sodium*), 100 MG GT TWICE A DAY, (Reported) Famotidine (Famotidine), 20 MG GT DAILY, (Reported) Fenofibrate Nanocrystallized (Fenofibrate), 145 MG GT DAILY, (Reported) Glycopyrrolate (Robinul), 2 MG GT BID, (Reported) Insulin Regular, Human* (Novolin R*), 0 SUBQ .SLIDING SCALE, (Reported) Ipratropium/Albuterol Sulfate (DuoNeb 0.5-3(2.5)mg/3ml), 3 ML HHN Q3HR, ( Reported) Levetiracetam* (Levetiracetam*), 1,000 MG GT TID, (Reported) Losartan Potassium* (Losartan Potassium*), 25 MG GT DAILY, (Reported) Multivitamin With Minerals (Multivitamins With Minerals*), 1 TAB GT DAILY, ( Reported) Nystatin* (Nystatin*), 1 APPLIC TOPIC THREE TIMES A DAY, (Reported) Polyethylene Glycol 3350* (Miralax*), 17 GM GT DAILY, (Reported) Sitagliptin* (Januvia*), 50 MG GT DAILY, (Reported) Spironolactone* (Aldactone*), 25 MG GT DAILY, (Reported) Scheduled PRN Acetaminophen 160MG/5ML* (Acetaminophen*), 20.3 ML GT Q4HR PRN for Fever/ Headache/Mild Pain, (Reported) Albuterol Sulfate* (Albuterol Sulfate Hhn*), 3 ML INH Q2H PRN for Shortness of Breath, (Reported) Miscellaneous Medications Arginine/Ascorbate Sod/Janay AC (Arginaid Powder), 1 EACH PO, (Reported) Lactulose (Lactulose*), 30 ML GT, (Reported) Tuberculin,Purif.prot.deriv. (Aplisol), 5 TU ID, (Reported) Vancomycin Hcl (Vancomycin), 750 MG IVPB, (Reported) Patient History Healthcare decision maker Resuscitation status Full Code Advanced Directive on File No Patient History Narrative Pmhx: as above Shx: He is . He was born in [place]. He has been on SSI since his cerebral hemorrhage. Fhx: non contributory Review of Systems ROS Narrative unable to obtain Physical Exam Physical Exam Narrative HEENT: Conjunctivae were pink. mucous membranes were not dehydrated.. Soft palate was free of ulcerations. Pharynx was clear from exudate or tonsillar hypertrophy. NECK: Supple. There was no goiter. No mass. No lymphadenopathy. There was no JVD. No bruits. Carotid upstroke was 2+. LUNGS: Clear. HEART: PMI was in fifth left intercostal space in midclavicular line. There was normal S1 and normal S2. There was no murmur. No arrhythmia. No S3. No S4. No pericardial rub. ABDOMEN: Soft and nontender without organomegaly. There were no masses palpable. Normal bowel sounds without bruits. There was no guarding. No rebound tenderness. No ascites. No hernia. No CVA tenderness. Liver span was 8 cm, smooth, and nontender. EXTREMITIES: No cyanosis, no clubbing, and no edema. Extremities were warm. Last 24 Hour Vital Signs Date Time Temp Pulse Resp B/P (MAP) Pulse Ox O2 Delivery O2 Flow Rate FiO2 07/22/18 11:11 107 16 30 07/22/18 09:53 112 17 30 07/22/18 07:47 113 27 30 07/22/18 05:21 108 22 30 07/22/18 04:00 Mechanical Ventilator 07/22/18 04:00 30 07/22/18 04:00 99.0 111 19 139/96 (110) 100 99.0 07/22/18 04:00 111 07/22/18 03:30 109 18 30 07/22/18 01:33 108 18 30 07/22/18 00:00 30 07/22/18 00:00 103 07/22/18 00:00 98.9 103 19 120/89 (99) 100 98.9 07/22/18 00:00 Mechanical Ventilator 07/21/18 23:29 110 17 30 07/21/18 21:53 99.5 07/21/18 21:44 118 18 30 07/21/18 21:23 100.7 07/21/18 20:05 100.7 100.7 07/21/18 20:00 100.4 120 19 108/78 (88) 99 100.4 07/21/18 20:00 30 07/21/18 20:00 Mechanical Ventilator 07/21/18 20:00 117 07/21/18 19:59 124 22 30 07/21/18 16:55 126 18 30 07/21/18 16:14 125 07/21/18 16:00 Mechanical Ventilator 07/21/18 16:00 30 07/21/18 16:00 99.9 125 17 102/78 (86) 100 99.9 07/21/18 15:27 130 18 30 07/21/18 13:03 128 17 30 07/21/18 12:55 100.0 07/21/18 12:00 100.0 127 18 120/98 (105) 100 100.0 07/21/18 12:00 Mechanical Ventilator 07/21/18 12:00 30 07/21/18 12:00 127 Intake and Output 07/21/18 07/22/18 19:00 07:00 Intake Total 1405.0 ml 1095 ml Output Total 650 ml 750 ml Balance 755.0 ml 345 ml Intake Free Water 260 ml IV Total 785.0 ml 575 ml Tube Feeding 360 ml 520 ml Output Urine Total 550 ml 500 ml Stool Total 100 ml 250 ml Laboratory Tests Test 07/22/18 07:06 07/22/18 07:59 07/22/18 10:00 White Blood Count 10.1 K/UL (4.8-10.8) Red Blood Count 3.96 M/UL (4.70-6.10) L Hemoglobin 11.3 G/DL (14.2-18.0) L Hematocrit 35.9 % (42.0-52.0) L Mean Corpuscular Volume 91 FL (80-99) Mean Corpuscular Hemoglobin 28.6 PG (27.0-31.0) Mean Corpuscular Hemoglobin Concent 31.5 G/DL (32.0-36.0) L Red Cell Distribution Width 14.1 % (11.6-14.8) Platelet Count 263 K/UL (150-450) Mean Platelet Volume 10.3 FL (6.5-10.1) H Neutrophils (%) (Auto) 73.0 % (45.0-75.0) Lymphocytes (%) (Auto) 16.1 % (20.0-45.0) L Monocytes (%) (Auto) 6.3 % (1.0-10.0) Eosinophils (%) (Auto) 4.0 % (0.0-3.0) H Basophils (%) (Auto) 0.6 % (0.0-2.0) Sodium Level 137 MMOL/L (136-145) 147 MMOL/L (136-145) #H Potassium Level 2.9 MMOL/L (3.5-5.1) L 3.4 MMOL/L (3.5-5.1) L Chloride Level 105 MMOL/L (98-107) 113 MMOL/L (98-107) H Carbon Dioxide Level 21 MMOL/L (21-32) 22 MMOL/L (21-32) Anion Gap 12 mmol/L (5-15) 12 mmol/L (5-15) Blood Urea Nitrogen 21 mg/dL (7-18) H 23 mg/dL (7-18) H Creatinine 1.4 MG/DL (0.55-1.30) H 1.3 MG/DL (0.55-1.30) Estimat Glomerular Filtration Rate > 60 mL/min (>60) > 60 mL/min (>60) Glucose Level 678 MG/DL (74-106) #*H 231 MG/DL (74-106) #H Calcium Level 9.2 MG/DL (8.5-10.1) 10.0 MG/DL (8.5-10.1) Calcium (Send out) Pending Parathyroid Hormone (Intact) Pending Arterial Blood pH 7.471 (7.350-7.450) Arterial Blood Partial Pressure CO2 26.9 mmHg (35.0-45.0) L Arterial Blood Partial Pressure O2 124.3 mmHg (75.0-100.0) H Arterial Blood HCO3 19.2 mmol/L (22.0-26.0) L Arterial Blood Oxygen Saturation 98.1 % (95-100) Arterial Blood Base Excess -3.3 (-2-2) L Kameron Test Positive Height (Feet): 5 Height (Inches): 8.00 Weight (Pounds): 160 Medications Current Medications Medications (Trade) Dose Ordered Sig/Va Route PRN Reason Start Time Stop Time Status Last Admin Dose Admin Acetaminophen (Tylenol) 650 mg Q4H PRN ORAL FEVER 07/20/18 15:05 08/19/18 15:04 07/21/18 21:23 Albuterol/ Ipratropium (Albuterol/ Ipratropium) 3 ml Q4H PRN HHN Shortness of Breath 07/20/18 15:04 07/25/18 15:03 Ascorbic Acid (Vitamin C) 500 mg DAILY GT 07/22/18 09:00 08/21/18 08:59 07/22/18 09:00 Baclofen (Lioresal) 10 mg THREE TIMES A DAY GT 07/20/18 18:00 08/19/18 17:59 07/22/18 09:00 Dextrose (Dextrose 50%) 25 ml Q30M PRN IV Hypoglycemia 07/20/18 15:12 08/19/18 15:11 Dextrose/Sodium Chloride 1,000 ml @ 50 mls/hr Q20H IV 07/21/18 07:30 08/20/18 07:29 07/22/18 03:39 Heparin Sodium (Porcine) (Heparin 5000 units/ml) 5,000 units EVERY 12 HOURS SUBQ 07/20/18 21:00 08/19/18 20:59 07/22/18 09:01 Insulin Aspart (NovoLOG) Q6HR SUBQ 07/21/18 00:00 08/19/18 16:29 07/22/18 06:20 Levetiracetam (Keppra) 1,000 mg BID GT 07/20/18 18:00 08/19/18 17:59 07/22/18 08:59 Lorazepam (Ativan 2mg/ml 1ml) 2 mg Q2H PRN IV For Anxiety 07/20/18 15:11 07/27/18 15:10 Morphine Sulfate (Morphine Sulfate) 4 mg Q4H PRN IVP Severe Pain (Pain Scale 7-10) 07/20/18 15:08 07/27/18 15:07 Ondansetron HCl (Zofran) 4 mg Q6H PRN IVP Nausea & Vomiting 07/20/18 15:05 08/19/18 15:04 Pantoprazole (Protonix) 40 mg DAILY IV 07/21/18 09:00 08/20/18 08:59 07/22/18 08:59 Polyethylene Glycol (Miralax) 17 gm DAILYPRN PRN GT Constipation 07/20/18 15:45 08/19/18 15:04 Sitagliptin Phosphate (Januvia) 50 mg DAILY GT 07/21/18 09:00 08/20/18 08:59 07/22/18 09:00 Vancomycin HCl (Rx Monitoring Vancomycin) 1 ea DAILY PRN MISC PER RX 07/20/18 15:30 08/19/18 15:29 Vitamin A/Vitamin D (A & D Oint) 1 applic Q12H TOPIC 07/20/18 21:00 08/19/18 20:59 07/22/18 09:02 Assessment/Plan Assessment/Plan Abx: IV Vanco 07/20 Cefepime x1 07/20 Assessment: Severe sepsis 2ry to Gram positive bacteremia, UTI and probable PNA -u/a wbc 30-40, nit neg, leuk +2; ucx GNR -Bcx 11/25 GPC clusters -sp cx GNR -CXR: Small left pleural effusion, not significantly changed. Unchanged subsegmental atelectasis versus infiltrate in the left lung base. Fever, improving Leukocytosis, improving DIVYA, improving Hx of UTI -04/2018 ucx >100k E. aerogenes (S cefepime, cipro/levo; R Zosyn) Hx of Bacteremia 04/2018 (PICC line infection, presumed endocarditis) -BCX 01/23 E. aerogenes, prob Amp C (S cefepime, cipro/levo; R Zosyn), P. 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 Plan: -Continue empiric IV Vancomycin #3 and start Meropenem pending cutlures -06/30 SP IV Vancomycin #42 -05/30 SP Ertapenem #14 -05/17/18 SP Zosyn #4 -Bcx x2, 2d echo -f/u cx -Monitor CBC/CMP, temperatures -trach/peg care -wound care/prevention per hospital care Thank you for this consultation. Will continue to follow along with you. Discussed with Maribel Cunha M.D. Jul 22, 2018 11:58
[2018-07-22] MEDS: Meropenem 1 GM in NS 55 ML IVPB SCH ×2 (13:14→21:31)
--- NOTE | 2018-07-22 15:09 | Diagnostic Imaging Report ---
APPROVED REPORT CPT Code: 48606 Present Symptoms Lower Extremity Pain: BILATERAL: Imaging reveals a patent deep venous system bilaterally. There is no evidence of thrombus within the femoral, or tibial segments. The greater saphenous veins are also within normal limits. Doppler indicates normal spontaneous flow within these segments.The bilateral popliteal veins are not visualized.
[2018-07-22 16:00] VITALS: BP 124/77
[2018-07-22 20:00] VITALS: BP 110/70
[2018-07-23] VITALS: BP 134/81
[2018-07-23 04:00] VITALS: BP 128/83
--- NOTE | 2018-07-23 06:00 | Progress Note ---
DATE: 07/22/2018 "NOTE: POOR AUDIO QUALITY" SUBJECTIVE: The patient's eyes were closed with no eye contact. He is not awake or alert. Febrile with persistent tachycardia. PHYSICAL EXAMINATION: VITAL SIGNS: Blood pressure 110/78, pulse is 115, respirations of 20, and temperature of 98.5 degrees. HEENT: Eyes were normal. ENT, mucous membranes were moist and intact. NECK: Supple with no JVD without lymph nodes. Tracheostomy site is clean. LUNGS: Clear without rhonchi, rales, or wheezing. Secretions are small, thin, and beckman. HEART: Normal sounds with regular beats. There is no S3, S4, or pericardial rub. ABDOMEN: Soft and nontender with normal bowel sounds. Gastrostomy site is clean. EXTREMITIES: Warm without cyanosis, clubbing, or edema. LABORATORY AND DIAGNOSTIC DATA: His hemoglobin is 11.3, hematocrit 35.9 with MCV of 91, WBC of 10.1, and platelet is 263,000. His BUN and creatinine are 23 and 1.3 respectively. His sodium is 147, potassium 3.4, chloride , CO2 is 22, and his calcium is 10. . His sputum culture grew . His urine culture grew gram-negative rods. Chest x-ray is pending in the computer will be obtained. IMPRESSION: The patient is progressively improving. Since admission, he is febrile and tachycardic 100 and respiratory rate is 16. Repeat laboratory tests will be done in morning. Sariah Bhat M.D. DR: ARIANNA JOB#: [id number] CC:
[2018-07-23] MEDS: NovoLOG Insulin Flexpen SUBQ SCH ×4 (06:06→23:19)
[2018-07-23] MEDS: Meropenem 1 GM in NS 55 ML IVPB SCH ×3 (06:08→21:03)
--- NOTE | 2018-07-23 07:01 | General Progress Note ---
Assessment/Plan Assessment/Plan # Leukocytosis - sepsis with elevated temperature of 103 degrees Fahrenheit. Had uti v bacteremia (CoNS) on abx, has improved. had infection on prior admission. --> Pt on antibiotics, has received a dose of merop and currently is on vancomycin q.12 h. --> Appreciate Infectious Disease recs --> 2D echo per ID performed on 05/22: No discrete vegetations seen, however SBE may not be excluded by transthoracic 2-D echo. --> CURRENT WBC of 7.9, wnl --> Currently afebrile # Anemia of chronic disease. No hemolysis, peripheral smear reviewed, ferritin was elevated. --> Continue to closely monitor --> Hgb goal >7 --> CURRENT Hgb 13.1--> hemoconcentration --> ordered anemia panel, retic, iron panel # Acute kidney injury. --> Currently on IV fluids, IV bolus given to see if the patient responds along with IV pressor as needed. --> Closely monitor with Nephrology team. # Septic shock, use antibiotic per ID services. --> potential uti, on abx and bacteremia on abx # Respiratory failure, status post tracheostomy, on mechanical ventilation per Dr. Goetz --> Remains on vent/trach --> 06/03 CXR: Unchanged left pleural effusion versus scarring, over 4 days # Hypercalcemia. Monitor PTH and calcium level. The time the note was entered does not necessarily correspond to the time the patient was seen. Greatly appreciate consultation! Subjective HEENT: Reports: no symptoms Cardiovascular: Reports: no symptoms Respiratory: Reports: no symptoms Gastrointestinal/Abdominal: Reports: no symptoms Genitourinary: Reports: no symptoms Neurologic/Psychiatric: Reports: no symptoms Endocrine: Reports: no symptoms Hematologic/Lymphatic: Reports: no symptoms Allergies: Coded Allergies: AZTREONAM (Verified Allergy, Unknown, 05/13/18) Subjective no events noted, remains tachycardic Objective Last 24 Hour Vital Signs Date Time Temp Pulse Resp B/P (MAP) Pulse Ox O2 Delivery O2 Flow Rate FiO2 07/23/18 05:29 104 17 30 07/23/18 04:05 105 07/23/18 04:00 Mechanical Ventilator Mechanical Ventilator 07/23/18 04:00 98.2 107 17 128/83 (98) 100 98.2 07/23/18 04:00 30 07/23/18 03:28 107 18 30 07/23/18 01:23 104 17 30 07/23/18 00:46 99.8 07/23/18 00:00 Mechanical Ventilator Mechanical Ventilator 07/23/18 00:00 30 07/23/18 00:00 100.5 113 20 134/81 (98) 100 100.5 07/23/18 00:00 115 07/22/18 23:46 100.5 07/22/18 22:35 116 18 30 07/22/18 21:02 115 17 30 07/22/18 20:00 30 07/22/18 20:00 98.9 107 20 110/70 (83) 100 98.9 07/22/18 20:00 Mechanical Ventilator Mechanical Ventilator 07/22/18 19:53 114 07/22/18 18:50 110 18 30 07/22/18 16:30 113 17 30 07/22/18 16:00 115 07/22/18 16:00 Mechanical Ventilator Mechanical Ventilator 07/22/18 16:00 30 07/22/18 16:00 98.8 115 20 124/77 (93) 100 98.8 07/22/18 15:46 109 18 30 07/22/18 12:52 111 17 30 07/22/18 12:00 30 07/22/18 12:00 Mechanical Ventilator Mechanical Ventilator 07/22/18 12:00 104 07/22/18 11:57 99.1 109 18 119/78 (92) 100 99.1 07/22/18 11:11 107 16 30 07/22/18 09:53 112 17 30 07/22/18 08:00 30 07/22/18 08:00 121 07/22/18 08:00 99.3 109 18 118/79 (92) 100 99.3 07/22/18 08:00 Mechanical Ventilator Mechanical Ventilator 07/22/18 07:47 113 27 30 Intake and Output 07/22/18 07/23/18 19:00 07:00 Intake Total 990 ml 1190 ml Output Total 600 ml 850 ml Balance 390 ml 340 ml Intake Free Water 220 ml IV Total 50 ml 530 ml Tube Feeding 720 ml 660 ml Output Urine Total 500 ml 500 ml Stool Total 100 ml 350 ml Laboratory Tests 07/22/18 07:06: White Blood Count 10.1, Red Blood Count 3.96L, Hemoglobin 11.3L, Hematocrit 35.9L, Mean Corpuscular Volume 91, Mean Corpuscular Hemoglobin 28.6, Mean Corpuscular Hemoglobin Concent 31.5L, Red Cell Distribution Width 14.1, Platelet Count 263, Mean Platelet Volume 10.3H, Neutrophils (%) (Auto) 73.0, Lymphocytes (%) (Auto) 16.1L, Monocytes (%) (Auto) 6.3, Eosinophils (%) (Auto) 4.0H, Basophils (%) (Auto) 0.6, Sodium Level 137, Potassium Level 2.9L, Chloride Level 105, Carbon Dioxide Level 21, Anion Gap 12, Blood Urea Nitrogen 21H, Creatinine 1.4H, Estimat Glomerular Filtration Rate > 60, Glucose Level 678 #*H, Calcium Level 9.2, Calcium (Send out) [Pending], Parathyroid Hormone ( Intact) [Pending] 07/22/18 07:59: Arterial Blood pH 7.471H, Arterial Blood Partial Pressure CO2 26.9L, Arterial Blood Partial Pressure O2 124.3H, Arterial Blood HCO3 19.2L, Arterial Blood Oxygen Saturation 98.1, Arterial Blood Base Excess -3.3L, Kameron Test Positive 07/22/18 10:00: Sodium Level 147#H, Potassium Level 3.4L, Chloride Level 113H, Carbon Dioxide Level 22, Anion Gap 12, Blood Urea Nitrogen 23H, Creatinine 1.3, Estimat Glomerular Filtration Rate > 60, Glucose Level 231#H, Calcium Level 10.0 Height (Feet): 5 Height (Inches): 8.00 Weight (Pounds): 160 General Appearance: no apparent distress EENT: TMs normal Neck: supple Cardiovascular: regular rhythm Respiratory/Chest: no respiratory distress, other - trach/vent Abdomen: non tender Extremities: non-tender Edema: no edema noted Leg (R), no edema noted Pedal (L) Neurologic: alert Skin: warm/dry Jimmy Fleming MD Jul 23, 2018 07:01
[2018-07-23 07:10] LABS: BASOPHILS % (AUTO) 0.8 % (0.0-2.0); EOSINOPHILS % (AUTO) 5.9 % (0.0-3.0); HEMATOCRIT 37.1 % (42.0-52.0); HEMOGLOBIN 11.9 G/DL (14.2-18.0); LYMPHOCYTES % (AUTO) 19.9 % (20.0-45.0); MEAN CORPUSCULAR VOLUME 90 FL (80-99); MONOCYTES % (AUTO) 5.5 % (1.0-10.0); PLATELET COUNT 268 K/UL (150-450); RED BLOOD COUNT 4.14 M/UL (4.70-6.10); RED CELL DISTRIBUTION WIDTH 14.1 % (11.6-14.8); WHITE BLOOD COUNT 8.6 K/UL (4.8-10.8)
[2018-07-23 07:30] LABS: APPEARANCE,URINE SLIGHTLY CLOUDY; BILIRUBIN, URINE NEGATIVE (NEGATIVE); GLUCOSE, URINE (UA) 2+ (NEGATIVE); KETONES,URINE 1+ (NEGATIVE); LEUKOCYTE ESTERASE ,URINE 3+ (NEGATIVE); NITRITE,URINE NEGATIVE (NEGATIVE); PH,URINE 6 (4.5-8.0); PROTEIN,URINE 4+ (NEGATIVE); UROBILINOGEN,URINE NORMAL MG/DL (0.0-1.0)
[2018-07-23 07:37] LABS: ALANINE AMINOTRANSFERASE 24 U/L (12-78); ALBUMIN 2.6 G/DL (3.4-5.0); ALBUMIN/GLOBULIN RATIO 0.5 (1.0-2.7); ALKALINE PHOSPHATASE 87 U/L (46-116); ANION GAP 12 mmol/L (5-15); BILIRUBIN,TOTAL 0.3 MG/DL (0.2-1.0); BLOOD UREA NITROGEN 19 mg/dL (7-18); CALCIUM 10.2 MG/DL (8.5-10.1); CARBON DIOXIDE 22 MMOL/L (21-32); CHLORIDE 113 MMOL/L (98-107); CREATININE 1.4 MG/DL (0.55-1.30); PHOSPHORUS 2.1 MG/DL (2.5-4.9); POTASSIUM 3.4 MMOL/L (3.5-5.1); SODIUM 147 MMOL/L (136-145)
[2018-07-23 07:43] LABS: COLOR,URINE YELLOW
[2018-07-23 08:00] VITALS: BP 123/77
[2018-07-23 08:09] LABS: % IRON SATURATION 26 % (15-50); IRON 48 ug/dL (50-175); TOTAL IRON BINDING CAPACITY 186 ug/dL (250-450)
[2018-07-23] MEDS: levETIRAcetam 500mg/5ml Liquid GT SCH ×2 (08:21→17:40)
[2018-07-23] MEDS: Ascorbic Acid 500mg tab GT SCH (08:22)
[2018-07-23] MEDS: Vitamin A&D Oint 2oz Tube TOPIC SCH ×2 (08:22→21:03)
[2018-07-23] MEDS: Pantoprazole Inj IV SCH (08:22)
[2018-07-23] MEDS: sitaGLIPtin 25mg tab GT SCH (08:22)
[2018-07-23] MEDS: Heparin 5000 units/ml inj SUBQ SCH ×2 (08:23→21:05)
[2018-07-23 08:32] LABS: ASPARTATE AMINO TRANSFERASE 24 U/L (15-37)
[2018-07-23 09:19] LABS: FERRITIN 1371 NG/ML (8-388)
--- NOTE | 2018-07-23 09:52 | Diagnostic Imaging Report ---
Indication: Dyspnea Technique: One view of the chest Comparison: 07/22/2018 Findings: Tracheostomy remains. Right lung and pleural spaces remain clear. There is evidence of pleural fluid on the left, but this appears decreased from the previous exam. Retrocardiac consolidation also appears slightly improved. The heart size is normal Impression: Improvement of persistent left pleural effusion and retrocardiac consolidation, over one day
--- NOTE | 2018-07-23 11:15 | Pulmonolgy Critical Care Note ---
Critical Care - Asmt/Plan Problems: (1) Acute on chronic respiratory failure (2) Sepsis (3) UTI (urinary tract infection) (4) Diabetes mellitus (5) Vegetative state (6) Colostomy in place Respiratory: monitor respiratory rate, adjust FIO2 Cardiac: continue to monitor HR/BP Renal: F/U I&O, keep IV fluid Infectious Disease: check cultures Gastrointestinal: continue feedings/current rate Endocrine: monitor blood sugar Hematologic: monitor H/H, transfuse if hgb<8.5 Neurologic: PRN Ativan, keep patient comfortable Affect: PRN ativan Prophylaxis: Protonix Disposition: keep in ICU Notes Reviewed: sales and customer relations rep, cardio Discussed with: nurses, consultants, pillowcase sewermaterials and processes manager - Objective Last 24 Hour Vital Signs Date Time Temp Pulse Resp B/P (MAP) Pulse Ox O2 Delivery O2 Flow Rate FiO2 07/23/18 09:34 109 21 30 07/23/18 08:00 Mechanical Ventilator Mechanical Ventilator 07/23/18 08:00 30 07/23/18 08:00 98.4 103 18 123/77 (92) 100 98.4 07/23/18 07:52 104 07/23/18 07:24 106 20 30 07/23/18 05:29 104 17 30 07/23/18 04:05 105 07/23/18 04:00 Mechanical Ventilator Mechanical Ventilator 07/23/18 04:00 98.2 107 17 128/83 (98) 100 98.2 07/23/18 04:00 30 07/23/18 03:28 107 18 30 07/23/18 01:23 104 17 30 07/23/18 00:46 99.8 07/23/18 00:00 Mechanical Ventilator Mechanical Ventilator 07/23/18 00:00 30 07/23/18 00:00 100.5 113 20 134/81 (98) 100 100.5 07/23/18 00:00 115 07/22/18 23:46 100.5 07/22/18 22:35 116 18 30 07/22/18 21:02 115 17 30 07/22/18 20:00 30 07/22/18 20:00 98.9 107 20 110/70 (83) 100 98.9 07/22/18 20:00 Mechanical Ventilator Mechanical Ventilator 07/22/18 19:53 114 07/22/18 18:50 110 18 30 07/22/18 16:30 113 17 30 07/22/18 16:00 115 07/22/18 16:00 Mechanical Ventilator Mechanical Ventilator 07/22/18 16:00 30 07/22/18 16:00 98.8 115 20 124/77 (93) 100 98.8 07/22/18 15:46 109 18 30 07/22/18 12:52 111 17 30 07/22/18 12:00 30 07/22/18 12:00 Mechanical Ventilator Mechanical Ventilator 07/22/18 12:00 104 07/22/18 11:57 99.1 109 18 119/78 (92) 100 99.1 Status: obtunded Condition: critical HEENT: atraumatic Lungs: clear Heart: HR/BP stable, HR/BP unstable Abdomen: soft, active bowel sounds Extremities: no C/C/E, edema Micro: Microbiology Date/Time Source Procedure Growth Status 07/21/18 21:15 Blood Blood Culture - Preliminary NO GROWTH AFTER 24 HOURS Resulted 07/21/18 21:15 Blood Blood Culture - Preliminary NO GROWTH AFTER 24 HOURS Resulted 07/20/18 11:15 Blood Blood Culture - Preliminary Staphylococcus Sp Coag Neg Resulted 07/20/18 18:00 Sputum Gram Stain - Final Resulted 07/20/18 18:00 Sputum Culture - Preliminary Acinetobacter Baumannii Complx Gram Negative Bacillus 2 Resulted 07/20/18 12:00 Nasal Nares MRSA Culture - Final NO METHICILLIN RESISTANT STAPH AUREUS... Complete 07/20/18 12:00 Urine,Clean Catch Urine Culture - Preliminary Gram Negative Bacillus 1 Resulted 07/20/18 12:00 Rectum VRE Culture - Final Enterococcus Faecalis - Vre Complete 07/20/18 12:00 Rectum - Final NO CARBAPENEM-RESISTANT ENTEROBACTERI... Complete Accucheck: 266 Critical Care - Subjective ROS Limited/Unobtainable: Yes Condition: critical EKG Rhythm: Sinus Rhythm FI02: 30 Vent Support Breath Rate: 16 Vent Support Mode: AC Vent Tidal Volume: 600 Sputum Amount: Moderate PEEP: 5.0 PIP: 28 Tube Feeding Amount: 60 I&O: Intake and Output 07/22/18 07/23/18 19:00 07:00 Intake Total 990 ml 1355 ml Output Total 600 ml 850 ml Balance 390 ml 505 ml Intake Free Water 220 ml IV Total 50 ml 635 ml Tube Feeding 720 ml 720 ml Output Urine Total 500 ml 500 ml Stool Total 100 ml 350 ml CXR: no change Labs: Laboratory Tests Test 07/23/18 03:46 07/23/18 06:38 07/23/18 08:15 Urine Color Yellow Urine Appearance Slightly cloudy Urine pH 6 (4.5-8.0) Urine Specific [place] 1.020 (1.005-1.035) Urine Protein 4+ (NEGATIVE) H Urine Glucose (UA) 2+ (NEGATIVE) H Urine Ketones 1+ (NEGATIVE) H Urine Blood 4+ (NEGATIVE) H Urine Nitrite Negative (NEGATIVE) Urine Bilirubin Negative (NEGATIVE) Urine Urobilinogen Normal MG/DL (0.0-1.0) Urine Leukocyte Esterase 3+ (NEGATIVE) H Urine RBC 5-10 /HPF (0 - 0) H Urine WBC 30-40 /HPF (0 - 0) H Urine Squamous Epithelial Cells Few /LPF (NONE/OCC) Urine Calcium Oxalate Crystals Occasional /LPF (NONE) Urine Bacteria Few /HPF (NONE) White Blood Count 8.6 K/UL (4.8-10.8) Red Blood Count 4.14 M/UL (4.70-6.10) L Hemoglobin 11.9 G/DL (14.2-18.0) L Hematocrit 37.1 % (42.0-52.0) L Mean Corpuscular Volume 90 FL (80-99) Mean Corpuscular Hemoglobin 28.8 PG (27.0-31.0) Mean Corpuscular Hemoglobin Concent 32.1 G/DL (32.0-36.0) Red Cell Distribution Width 14.1 % (11.6-14.8) Platelet Count 268 K/UL (150-450) Mean Platelet Volume 9.6 FL (6.5-10.1) Neutrophils (%) (Auto) 68.0 % (45.0-75.0) Lymphocytes (%) (Auto) 19.9 % (20.0-45.0) L Monocytes (%) (Auto) 5.5 % (1.0-10.0) Eosinophils (%) (Auto) 5.9 % (0.0-3.0) H Basophils (%) (Auto) 0.8 % (0.0-2.0) Erythrocyte Sedimentation Rate 108 MM/HR (0-20) H Sodium Level 147 MMOL/L (136-145) H Potassium Level 3.4 MMOL/L (3.5-5.1) L Chloride Level 113 MMOL/L (98-107) H Carbon Dioxide Level 22 MMOL/L (21-32) Anion Gap 12 mmol/L (5-15) Blood Urea Nitrogen 19 mg/dL (7-18) H Creatinine 1.4 MG/DL (0.55-1.30) H Estimat Glomerular Filtration Rate > 60 mL/min (>60) Glucose Level 231 MG/DL (74-106) H Calcium Level 10.2 MG/DL (8.5-10.1) H Phosphorus Level 2.1 MG/DL (2.5-4.9) L Magnesium Level 2.1 MG/DL (1.8-2.4) Iron Level 48 ug/dL (50-175) L Total Iron Binding Capacity 186 ug/dL (250-450) L Percent Iron Saturation 26 % (15-50) Unsaturated Iron Binding 138 ug/dL (112-346) Ferritin 1371 NG/ML (8-388) H Total Bilirubin 0.3 MG/DL (0.2-1.0) Aspartate Amino Transf (AST/SGOT) 24 U/L (15-37) Alanine Aminotransferase (ALT/SGPT) 24 U/L (12-78) Alkaline Phosphatase 87 U/L (46-116) C-Reactive Protein, Quantitative 7.7 mg/dL (0.00-0.90) H Total Protein 7.6 G/DL (6.4-8.2) Albumin 2.6 G/DL (3.4-5.0) L Globulin 5.0 g/dL Albumin/Globulin Ratio 0.5 (1.0-2.7) L Vitamin B12 Level 1644 PG/ML (193-986) H Thyroid Stimulating Hormone (TSH) 1.643 uiU/mL (0.358-3.740) Arterial Blood pH 7.453 (7.350-7.450) Arterial Blood Partial Pressure CO2 29.8 mmHg (35.0-45.0) L Arterial Blood Partial Pressure O2 126.5 mmHg (75.0-100.0) H Arterial Blood HCO3 20.4 mmol/L (22.0-26.0) L Arterial Blood Oxygen Saturation 98.1 % (95-100) Arterial Blood Base Excess -2.6 (-2-2) L Kameron Test Positive Nico Goetz MD Jul 23, 2018 11:15
--- NOTE | 2018-07-23 11:41 | Infectious Diseases Prog Note ---
Assessment/Plan Assessment/Plan Assessment: Severe sepsis 2ry to Gram positive bacteremia, UTI and probable PNA -u/a wbc 30-40, nit neg, leuk +2; ucx 10-20k GNR -07/20 Bcx / CONS; 07/21 10/25 GPC -sp cx ABC (I Tygecicline, ohter sensi pending), GNR #2 -07/23 CXR : Improvement of persistent left pleural effusion and retrocardiac consolidation, over one day -CXR: Small left pleural effusion, not significantly changed. Unchanged subsegmental atelectasis versus infiltrate in the left lung base. Fever, improving Leukocytosis, SP DIVYA, improving Hx of UTI -04/2018 ucx >100k E. aerogenes (S cefepime, cipro/levo; R Zosyn) Hx of Bacteremia 04/2018 (PICC line infection, presumed endocarditis) -BCX 01/23 E. aerogenes, prob Amp C (S cefepime, cipro/levo; R Zosyn), P. 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 Will continue to follow along with you. Discussed with RN. Subjective Allergies: Coded Allergies: AZTREONAM (Verified Allergy, Unknown, 05/13/18) Subjective Tm 100.5 no leukocytosis bacteremic CXR improved Objective Vital Signs Last 24 Hour Vital Signs Date Time Temp Pulse Resp B/P (MAP) Pulse Ox O2 Delivery O2 Flow Rate FiO2 07/23/18 11:24 115 17 30 07/23/18 09:34 109 21 30 07/23/18 08:00 Mechanical Ventilator Mechanical Ventilator 07/23/18 08:00 30 07/23/18 08:00 98.4 103 18 123/77 (92) 100 98.4 07/23/18 07:52 104 07/23/18 07:24 106 20 30 07/23/18 05:29 104 17 30 07/23/18 04:05 105 07/23/18 04:00 Mechanical Ventilator Mechanical Ventilator 07/23/18 04:00 98.2 107 17 128/83 (98) 100 98.2 07/23/18 04:00 30 07/23/18 03:28 107 18 30 07/23/18 01:23 104 17 30 07/23/18 00:46 99.8 07/23/18 00:00 Mechanical Ventilator Mechanical Ventilator 07/23/18 00:00 30 07/23/18 00:00 100.5 113 20 134/81 (98) 100 100.5 07/23/18 00:00 115 07/22/18 23:46 100.5 07/22/18 22:35 116 18 30 07/22/18 21:02 115 17 30 07/22/18 20:00 30 07/22/18 20:00 98.9 107 20 110/70 (83) 100 98.9 07/22/18 20:00 Mechanical Ventilator Mechanical Ventilator 07/22/18 19:53 114 07/22/18 18:50 110 18 30 07/22/18 16:30 113 17 30 07/22/18 16:00 115 07/22/18 16:00 Mechanical Ventilator Mechanical Ventilator 07/22/18 16:00 30 07/22/18 16:00 98.8 115 20 124/77 (93) 100 98.8 07/22/18 15:46 109 18 30 07/22/18 12:52 111 17 30 07/22/18 12:00 30 07/22/18 12:00 Mechanical Ventilator Mechanical Ventilator 07/22/18 12:00 104 07/22/18 11:57 99.1 109 18 119/78 (92) 100 99.1 Height (Feet): 5 Height (Inches): 8.00 Weight (Pounds): 160 Objective HEENT: Conjunctivae were pink. mucous membranes were not dehydrated.. Soft palate was free of ulcerations. Pharynx was clear from exudate or tonsillar hypertrophy. NECK: Supple. There was no goiter. No mass. No lymphadenopathy. There was no JVD. No bruits. Carotid upstroke was 2+. LUNGS: Clear. HEART: PMI was in fifth left intercostal space in midclavicular line. There was normal S1 and normal S2. There was no murmur. No arrhythmia. No S3. No S4. No pericardial rub. ABDOMEN: Soft and nontender without organomegaly. There were no masses palpable. Normal bowel sounds without bruits. There was no guarding. No rebound tenderness. No ascites. No hernia. No CVA tenderness. Liver span was 8 cm, smooth, and nontender. EXTREMITIES: No cyanosis, no clubbing, and no edema. Extremities were warm. Microbiology Date/Time Source Procedure Growth Status 07/21/18 21:15 Blood Blood Culture - Preliminary Resulted 07/21/18 21:15 Blood Blood Culture - Preliminary NO GROWTH AFTER 24 HOURS Resulted 07/20/18 18:00 Sputum Gram Stain - Final Resulted 07/20/18 18:00 Sputum Culture - Preliminary Acinetobacter Baumannii Complx Gram Negative Bacillus 2 Resulted 07/20/18 12:00 Nasal Nares MRSA Culture - Final NO METHICILLIN RESISTANT STAPH AUREUS... Complete 07/20/18 12:00 Urine,Clean Catch Urine Culture - Preliminary Gram Negative Bacillus 1 Resulted 07/20/18 12:00 Rectum VRE Culture - Final Enterococcus Faecalis - Vre Complete 07/20/18 12:00 Rectum - Final NO CARBAPENEM-RESISTANT ENTEROBACTERI... Complete Laboratory Tests Test 07/23/18 03:46 07/23/18 06:38 07/23/18 08:15 Urine Color Yellow Urine Appearance Slightly cloudy Urine pH 6 (4.5-8.0) Urine Specific [place] 1.020 (1.005-1.035) Urine Protein 4+ (NEGATIVE) H Urine Glucose (UA) 2+ (NEGATIVE) H Urine Ketones 1+ (NEGATIVE) H Urine Blood 4+ (NEGATIVE) H Urine Nitrite Negative (NEGATIVE) Urine Bilirubin Negative (NEGATIVE) Urine Urobilinogen Normal MG/DL (0.0-1.0) Urine Leukocyte Esterase 3+ (NEGATIVE) H Urine RBC 5-10 /HPF (0 - 0) H Urine WBC 30-40 /HPF (0 - 0) H Urine Squamous Epithelial Cells Few /LPF (NONE/OCC) Urine Calcium Oxalate Crystals Occasional /LPF (NONE) Urine Bacteria Few /HPF (NONE) White Blood Count 8.6 K/UL (4.8-10.8) Red Blood Count 4.14 M/UL (4.70-6.10) L Hemoglobin 11.9 G/DL (14.2-18.0) L Hematocrit 37.1 % (42.0-52.0) L Mean Corpuscular Volume 90 FL (80-99) Mean Corpuscular Hemoglobin 28.8 PG (27.0-31.0) Mean Corpuscular Hemoglobin Concent 32.1 G/DL (32.0-36.0) Red Cell Distribution Width 14.1 % (11.6-14.8) Platelet Count 268 K/UL (150-450) Mean Platelet Volume 9.6 FL (6.5-10.1) Neutrophils (%) (Auto) 68.0 % (45.0-75.0) Lymphocytes (%) (Auto) 19.9 % (20.0-45.0) L Monocytes (%) (Auto) 5.5 % (1.0-10.0) Eosinophils (%) (Auto) 5.9 % (0.0-3.0) H Basophils (%) (Auto) 0.8 % (0.0-2.0) Erythrocyte Sedimentation Rate 108 MM/HR (0-20) H Sodium Level 147 MMOL/L (136-145) H Potassium Level 3.4 MMOL/L (3.5-5.1) L Chloride Level 113 MMOL/L (98-107) H Carbon Dioxide Level 22 MMOL/L (21-32) Anion Gap 12 mmol/L (5-15) Blood Urea Nitrogen 19 mg/dL (7-18) H Creatinine 1.4 MG/DL (0.55-1.30) H Estimat Glomerular Filtration Rate > 60 mL/min (>60) Glucose Level 231 MG/DL (74-106) H Calcium Level 10.2 MG/DL (8.5-10.1) H Phosphorus Level 2.1 MG/DL (2.5-4.9) L Magnesium Level 2.1 MG/DL (1.8-2.4) Iron Level 48 ug/dL (50-175) L Total Iron Binding Capacity 186 ug/dL (250-450) L Percent Iron Saturation 26 % (15-50) Unsaturated Iron Binding 138 ug/dL (112-346) Ferritin 1371 NG/ML (8-388) H Total Bilirubin 0.3 MG/DL (0.2-1.0) Aspartate Amino Transf (AST/SGOT) 24 U/L (15-37) Alanine Aminotransferase (ALT/SGPT) 24 U/L (12-78) Alkaline Phosphatase 87 U/L (46-116) C-Reactive Protein, Quantitative 7.7 mg/dL (0.00-0.90) H Total Protein 7.6 G/DL (6.4-8.2) Albumin 2.6 G/DL (3.4-5.0) L Globulin 5.0 g/dL Albumin/Globulin Ratio 0.5 (1.0-2.7) L Vitamin B12 Level 1644 PG/ML (193-986) H Thyroid Stimulating Hormone (TSH) 1.643 uiU/mL (0.358-3.740) Arterial Blood pH 7.453 (7.350-7.450) Arterial Blood Partial Pressure CO2 29.8 mmHg (35.0-45.0) L Arterial Blood Partial Pressure O2 126.5 mmHg (75.0-100.0) H Arterial Blood HCO3 20.4 mmol/L (22.0-26.0) L Arterial Blood Oxygen Saturation 98.1 % (95-100) Arterial Blood Base Excess -2.6 (-2-2) L K[place]on Test Positive Current Medications Medications (Trade) Dose Ordered Sig/Va Route PRN Reason Start Time Stop Time Status Last Admin Dose Admin Acetaminophen (Tylenol) 650 mg Q4H PRN ORAL FEVER 07/20/18 15:05 08/19/18 15:04 07/22/18 23:46 Albuterol/ Ipratropium (Albuterol/ Ipratropium) 3 ml Q4H PRN HHN Shortness of Breath 07/20/18 15:04 07/25/18 15:03 Ascorbic Acid (Vitamin C) 500 mg DAILY GT 07/22/18 09:00 08/21/18 08:59 07/23/18 08:22 Baclofen (Lioresal) 10 mg THREE TIMES A DAY GT 07/20/18 18:00 08/19/18 17:59 07/23/18 08:21 Dextrose (Dextrose 50%) 25 ml Q30M PRN IV Hypoglycemia 07/20/18 15:12 08/19/18 15:11 Heparin Sodium (Porcine) (Heparin 5000 units/ml) 5,000 units EVERY 12 HOURS SUBQ 07/20/18 21:00 08/19/18 20:59 07/23/18 08:23 Insulin Aspart (NovoLOG) Q6HR SUBQ 07/21/18 00:00 08/19/18 16:29 07/23/18 06:06 Levetiracetam (Keppra) 1,000 mg BID GT 07/20/18 18:00 08/19/18 17:59 07/23/18 08:21 Lorazepam (Ativan 2mg/ml 1ml) 2 mg Q2H PRN IV For Anxiety 07/20/18 15:11 07/27/18 15:10 Meropenem 1 gm/ Sodium Chloride 55 ml @ 110 mls/hr Q8HR IVPB 07/22/18 14:00 07/27/18 13:59 07/23/18 06:08 Morphine Sulfate (Morphine Sulfate) 4 mg Q4H PRN IVP Severe Pain (Pain Scale 7-10) 07/20/18 15:08 07/27/18 15:07 Ondansetron HCl (Zofran) 4 mg Q6H PRN IVP Nausea & Vomiting 07/20/18 15:05 08/19/18 15:04 Pantoprazole (Protonix) 40 mg DAILY IV 07/21/18 09:00 08/20/18 08:59 07/23/18 08:22 Polyethylene Glycol (Miralax) 17 gm DAILYPRN PRN GT Constipation 07/20/18 15:45 08/19/18 15:04 Potassium Chloride 40 meq/ Dextrose/Sodium Chloride 1,020 ml @ 50 mls/hr [id number] IV 07/24/18 13:00 08/20/18 12:59 Sitagliptin Phosphate (Januvia) 50 mg DAILY GT 07/21/18 09:00 08/20/18 08:59 07/23/18 08:22 Vancomycin HCl (Rx Monitoring Vancomycin) 1 ea DAILY PRN MISC PER RX 07/20/18 15:30 08/19/18 15:29 Vitamin A/Vitamin D (A & D Oint) 1 applic Q12H TOPIC 07/20/18 21:00 08/19/18 20:59 07/23/18 08:22 Maribel Barrera M.D. Jul 23, 2018 11:41
[2018-07-23 12:00] VITALS: BP 121/69
[2018-07-23] MEDS: Potassium Chloride 40 MEQ in D5 1/4NS 1000ml 1,000 ML IV SCH (14:49)
[2018-07-23] MEDS: Vancomycin 1.5 GM/D5W 250ML IVPB SCH (15:34)
[2018-07-23 16:00] VITALS: BP 118/79
--- NOTE | 2018-07-23 19:11 | Cardiology Report ---
APPROVED REPORT EKG Measurement Heart [id number] Sinus tachycardia Otherwise normal ECG
[2018-07-23 20:00] VITALS: BP 108/75
[2018-07-24] VITALS: BP 111/67
[2018-07-24] MEDS: Colistin for inhalation INH SCH (01:12)
[2018-07-24 04:00] VITALS: BP 118/93
[2018-07-24] MEDS: Meropenem 1 GM in NS 55 ML IVPB SCH ×2 (05:20→13:21)
[2018-07-24] MEDS: NovoLOG Insulin Flexpen SUBQ SCH ×4 (05:21→23:45)
[2018-07-24 05:24] LABS: BASOPHILS % (AUTO) 0.9 % (0.0-2.0); EOSINOPHILS % (AUTO) 5.1 % (0.0-3.0); HEMATOCRIT 38.4 % (42.0-52.0); HEMOGLOBIN 11.5 G/DL (14.2-18.0); LYMPHOCYTES % (AUTO) 22.5 % (20.0-45.0); MEAN CORPUSCULAR VOLUME 91 FL (80-99); MONOCYTES % (AUTO) 5.5 % (1.0-10.0); PLATELET COUNT 286 K/UL (150-450); RED BLOOD COUNT 4.21 M/UL (4.70-6.10); WHITE BLOOD COUNT 10.1 K/UL (4.8-10.8)
[2018-07-24 07:49] LABS: ALANINE AMINOTRANSFERASE 23 U/L (12-78); ALBUMIN 2.5 G/DL (3.4-5.0); ALBUMIN/GLOBULIN RATIO 0.5 (1.0-2.7); ALKALINE PHOSPHATASE 90 U/L (46-116); ANION GAP 11 mmol/L (5-15); ASPARTATE AMINO TRANSFERASE 29 U/L (15-37); BILIRUBIN,TOTAL 0.3 MG/DL (0.2-1.0); BLOOD UREA NITROGEN 19 mg/dL (7-18); CALCIUM 10.2 MG/DL (8.5-10.1); CARBON DIOXIDE 22 MMOL/L (21-32); CHLORIDE 110 MMOL/L (98-107); CREATININE 1.3 MG/DL (0.55-1.30); PHOSPHORUS 2.1 MG/DL (2.5-4.9); POTASSIUM 3.8 MMOL/L (3.5-5.1); SODIUM 143 MMOL/L (136-145)
[2018-07-24 08:00] VITALS: BP 121/93
[2018-07-24] MEDS: sitaGLIPtin 25mg tab GT SCH (08:54)
[2018-07-24] MEDS: Vitamin A&D Oint 2oz Tube TOPIC SCH ×2 (08:54→21:38)
[2018-07-24] MEDS: Ascorbic Acid 500mg tab GT SCH (08:54)
[2018-07-24] MEDS: levETIRAcetam 500mg/5ml Liquid GT SCH ×2 (08:54→17:49)
[2018-07-24] MEDS: Pantoprazole Inj IV SCH (08:54)
[2018-07-24] MEDS: Heparin 5000 units/ml inj SUBQ SCH ×2 (08:56→21:40)
--- NOTE | 2018-07-24 09:47 | Pulmonolgy Critical Care Note ---
Critical Care - Asmt/Plan Problems: (1) Acute on chronic respiratory failure (2) Sepsis (3) UTI (urinary tract infection) (4) Diabetes mellitus (5) Vegetative state (6) Colostomy in place Respiratory: monitor respiratory rate, adjust FIO2, CXR Cardiac: continue pressors, continue to monitor HR/BP Infectious Disease: check cultures, other - low grade fever, on imipenem and voncomycin Gastrointestinal: continue feedings/current rate Endocrine: monitor blood sugar, check HgA1C Neurologic: PRN Ativan Critical Care - Objective Last 24 Hour Vital Signs Date Time Temp Pulse Resp B/P (MAP) Pulse Ox O2 Delivery O2 Flow Rate FiO2 07/24/18 09:30 124 07/24/18 09:07 131 21 30 07/24/18 07:50 121 19 30 07/24/18 04:56 114 17 30 07/24/18 04:00 30 07/24/18 04:00 Mechanical Ventilator Mechanical Ventilator 07/24/18 04:00 99.5 110 16 118/93 (101) 100 99.5 07/24/18 03:39 114 07/24/18 03:00 111 17 30 07/24/18 00:45 115 16 30 07/24/18 00:21 100.2 07/24/18 00:00 Mechanical Ventilator Mechanical Ventilator 07/24/18 00:00 100.2 115 16 111/67 (82) 100 100.2 07/23/18 23:51 100.6 07/23/18 23:44 115 07/23/18 22:46 116 18 30 07/23/18 20:55 114 18 30 07/23/18 20:00 30 07/23/18 20:00 Mechanical Ventilator Mechanical Ventilator 07/23/18 20:00 100.1 120 16 108/75 (86) 100 100.1 07/23/18 19:38 113 07/23/18 19:31 11 19 30 07/23/18 16:52 112 22 30 07/23/18 16:00 30 07/23/18 16:00 Mechanical Ventilator Mechanical Ventilator 07/23/18 16:00 112 07/23/18 16:00 99.9 117 17 118/79 (92) 100 99.9 07/23/18 15:35 119 19 30 07/23/18 15:19 100.2 07/23/18 13:16 119 18 30 07/23/18 12:00 30 07/23/18 12:00 116 07/23/18 12:00 Mechanical Ventilator Mechanical Ventilator 07/23/18 12:00 99.1 112 18 121/69 (86) 100 99.1 07/23/18 11:24 115 17 30 Status: awake, sedated Condition: critical HEENT: atraumatic Neck: full ROM Lungs: clear Heart: HR/BP stable Abdomen: soft, non-tender Extremities: no C/C/E, edema Micro: Microbiology Date/Time Source Procedure Growth Status 07/22/18 14:35 Blood Blood Culture - Preliminary NO GROWTH AFTER 24 HOURS Resulted 07/22/18 14:20 Blood Blood Culture - Preliminary NO GROWTH AFTER 24 HOURS Resulted 07/21/18 21:15 Blood Blood Culture - Preliminary Resulted 07/21/18 21:15 Blood Blood Culture - Preliminary NO GROWTH AFTER 48 HOURS Resulted 07/23/18 03:46 Urine,Clean Catch Urine Culture - Preliminary Gram Negative Bacillus 1 Resulted Accucheck: 198 Critical Care - Subjective ROS Limited/Unobtainable: Yes EKG Rhythm: Sinus Rhythm FI02: 30 Vent Support Breath Rate: 16 Vent Support Mode: AC Vent Tidal Volume: 600 Sputum Amount: Large PEEP: 5.0 PIP: 30 Tube Feeding Amount: 60 I&O: Intake and Output 07/23/18 07/24/18 19:00 07:00 Intake Total 1693.8 ml 1490 ml Output Total 930 ml 875 ml Balance 763.8 ml 615 ml Intake Free Water 260 ml 60 ml IV Total 713.8 ml 710 ml Tube Feeding 720 ml 720 ml Output Urine Total 650 ml 575 ml Stool Total 280 ml 300 ml CXR: improving infiltrate Labs: Laboratory Tests Test 07/24/18 04:00 White Blood Count 10.1 K/UL (4.8-10.8) Red Blood Count 4.21 M/UL (4.70-6.10) L Hemoglobin 11.5 G/DL (14.2-18.0) L Hematocrit 38.4 % (42.0-52.0) L Mean Corpuscular Volume 91 FL (80-99) Mean Corpuscular Hemoglobin 27.4 PG (27.0-31.0) Mean Corpuscular Hemoglobin Concent 30.0 G/DL (32.0-36.0) L Red Cell Distribution Width 14.0 % (11.6-14.8) Platelet Count 286 K/UL (150-450) Mean Platelet Volume 9.4 FL (6.5-10.1) Neutrophils (%) (Auto) 66.0 % (45.0-75.0) Lymphocytes (%) (Auto) 22.5 % (20.0-45.0) Monocytes (%) (Auto) 5.5 % (1.0-10.0) Eosinophils (%) (Auto) 5.1 % (0.0-3.0) H Basophils (%) (Auto) 0.9 % (0.0-2.0) Sodium Level 143 MMOL/L (136-145) Potassium Level 3.8 MMOL/L (3.5-5.1) Chloride Level 110 MMOL/L (98-107) H Carbon Dioxide Level 22 MMOL/L (21-32) Anion Gap 11 mmol/L (5-15) Blood Urea Nitrogen 19 mg/dL (7-18) H Creatinine 1.3 MG/DL (0.55-1.30) Estimat Glomerular Filtration Rate > 60 mL/min (>60) Glucose Level 226 MG/DL (74-106) H Calcium Level 10.2 MG/DL (8.5-10.1) H Phosphorus Level 2.1 MG/DL (2.5-4.9) L Magnesium Level 2.1 MG/DL (1.8-2.4) Total Bilirubin 0.3 MG/DL (0.2-1.0) Aspartate Amino Transf (AST/SGOT) 29 U/L (15-37) Alanine Aminotransferase (ALT/SGPT) 23 U/L (12-78) Alkaline Phosphatase 90 U/L (46-116) Total Protein 7.7 G/DL (6.4-8.2) Albumin 2.5 G/DL (3.4-5.0) L Globulin 5.2 g/dL Albumin/Globulin Ratio 0.5 (1.0-2.7) Nico Olivares MD Jul 24, 2018 09:47
[2018-07-24] MEDS: Potassium Chloride 40 MEQ in D5 1/4NS 1000ml 1,000 ML IV SCH (09:57)
--- NOTE | 2018-07-24 10:49 | General Progress Note ---
Assessment/Plan Assessment/Plan # Leukocytosis - sepsis with elevated temperature of 103 degrees Fahrenheit on admission. Had uti v bacteremia (CoNS) on abx, has improved. had infection on prior admission. --> Pt on antibiotics, has received a dose of merop and currently is on vancomycin q.12 h. --> Appreciate Infectious Disease recs --> 2D echo per ID performed on 05/22: No discrete vegetations seen, however SBE may not be excluded by transthoracic 2-D echo. --> CURRENT WBC of 7.9, wnl --> Currently afebrile # Anemia of chronic disease. No hemolysis, peripheral smear reviewed, ferritin was elevated. --> Continue to closely monitor --> Hgb goal >7 --> CURRENT Hgb 13.1--> hemoconcentration --> retic 1371, % sat 24% # Acute kidney injury. --> Currently on IV fluids, IV bolus given to see if the patient responds along with IV pressor as needed. --> Closely monitor with Nephrology team. # Septic shock, use antibiotic per ID services. --> potential uti, on abx and bacteremia on abx # Respiratory failure, status post tracheostomy, on mechanical ventilation per Dr. Goetz --> Remains on vent/trach --> 06/03 CXR: Unchanged left pleural effusion versus scarring, over 4 days # Hypercalcemia. PTH is 37 and Ca++ is elevated --> monitor for improvement The time the note was entered does not necessarily correspond to the time the patient was seen. Greatly appreciate consultation! Subjective Constitutional: Denies: no symptoms, chills, diaphoresis, fever, malaise, weakness, other HEENT: Denies: no symptoms, eye pain, blurred vision, tearing, double vision, ear pain, ear discharge, nose pain, nose congestion, throat pain, throat swelling, mouth pain, mouth swelling, other Cardiovascular: Denies: no symptoms, chest pain, edema, irregular heart rate, lightheadedness, palpitations, syncope, other Respiratory: Denies: no symptoms, cough, orthopnea, shortness of breath, SOB with excertion, SOB at rest, sputum, stridor, wheezing, other Genitourinary: Denies: no symptoms, burning, discharge, frequency, flank pain, hematuria, incontinence, pain, urgency, other Neurologic/Psychiatric: Denies: no symptoms, anxiety, depressed, emotional problems, headache, numbness, paresthesia, pre-existing deficit, seizure, tingling, tremors, weakness, other Endocrine: Denies: no symptoms, excessive sweating, flushing, intolerance to cold, intolerance to heat, increased hunger, increased thirst, increased urine, unexplained weight gain, unexplained weight loss, other Hematologic/Lymphatic: Denies: no symptoms, anemia, easy bleeding, easy bruising, other Allergies: Coded Allergies: AZTREONAM (Verified Allergy, Unknown, 05/13/18) Subjective no events noted, remains tachycardic, on abx Objective Last 24 Hour Vital Signs Date Time Temp Pulse Resp B/P (MAP) Pulse Ox O2 Delivery O2 Flow Rate FiO2 07/24/18 09:57 101.2 07/24/18 09:30 124 07/24/18 09:07 131 21 30 07/24/18 07:50 121 19 30 07/24/18 04:56 114 17 30 07/24/18 04:00 30 07/24/18 04:00 Mechanical Ventilator Mechanical Ventilator 07/24/18 04:00 99.5 110 16 118/93 (101) 100 99.5 07/24/18 03:39 114 07/24/18 03:00 111 17 30 07/24/18 00:45 115 16 30 07/24/18 00:21 100.2 07/24/18 00:00 Mechanical Ventilator Mechanical Ventilator 07/24/18 00:00 100.2 115 16 111/67 (82) 100 100.2 07/23/18 23:51 100.6 07/23/18 23:44 115 07/23/18 22:46 116 18 30 07/23/18 20:55 114 18 30 07/23/18 20:00 30 07/23/18 20:00 Mechanical Ventilator Mechanical Ventilator 07/23/18 20:00 100.1 120 16 108/75 (86) 100 100.1 07/23/18 19:38 113 07/23/18 19:31 11 19 30 07/23/18 16:52 112 22 30 07/23/18 16:00 30 07/23/18 16:00 Mechanical Ventilator Mechanical Ventilator 07/23/18 16:00 112 07/23/18 16:00 99.9 117 17 118/79 (92) 100 99.9 07/23/18 15:35 119 19 30 07/23/18 15:19 100.2 07/23/18 13:16 119 18 30 07/23/18 12:00 30 07/23/18 12:00 116 07/23/18 12:00 Mechanical Ventilator Mechanical Ventilator 07/23/18 12:00 99.1 112 18 121/69 (86) 100 99.1 07/23/18 11:24 115 17 30 Intake and Output 07/23/18 07/24/18 19:00 07:00 Intake Total 1693.8 ml 1490 ml Output Total 930 ml 875 ml Balance 763.8 ml 615 ml Intake Free Water 260 ml 60 ml IV Total 713.8 ml 710 ml Tube Feeding 720 ml 720 ml Output Urine Total 650 ml 575 ml Stool Total 280 ml 300 ml Laboratory Tests 07/24/18 04:00: White Blood Count 10.1, Red Blood Count 4.21L, Hemoglobin 11.5L, Hematocrit 38.4L, Mean Corpuscular Volume 91, Mean Corpuscular Hemoglobin 27.4, Mean Corpuscular Hemoglobin Concent 30.0L, Red Cell Distribution Width 14.0, Platelet Count 286, Mean Platelet Volume 9.4, Neutrophils (%) (Auto) 66.0, Lymphocytes (%) (Auto) 22.5, Monocytes (%) (Auto) 5.5, Eosinophils (%) (Auto) 5.1H, Basophils (%) (Auto) 0.9, Sodium Level 143, Potassium Level 3.8, Chloride Level 110H, Carbon Dioxide Level 22, Anion Gap 11, Blood Urea Nitrogen 19H, Creatinine 1.3, Estimat Glomerular Filtration Rate > 60, Glucose Level 226H, Calcium Level 10.2H, Phosphorus Level 2.1L, Magnesium Level 2.1, Total Bilirubin 0.3, Aspartate Amino Transf (AST/SGOT) 29, Alanine Aminotransferase ( ALT/SGPT) 23, Alkaline Phosphatase 90, Total Protein 7.7, Albumin 2.5L, Globulin 5.2, Albumin/Globulin Ratio 0.5L Height (Feet): 5 Height (Inches): 8.00 Weight (Pounds): 163 General Appearance: no apparent distress EENT: TMs normal Neck: other - trach/vent Cardiovascular: regular rhythm Respiratory/Chest: no respiratory distress Abdomen: no mass Extremities: normal range of motion Edema: mild edema Neurologic: responsive Jimmy Fleming MD Jul 24, 2018 10:49
[2018-07-24 12:00] VITALS: BP 120/80
[2018-07-24] MEDS ORDERED: Potassium Chloride 40 MEQ in D5 1/4NS 1000ml 1,000 ML IV SCH (13:00)
[2018-07-24] MEDS: Vancomycin 1.5 GM/D5W 250ML IVPB SCH (15:30)
--- NOTE | 2018-07-24 15:54 | Infectious Diseases Prog Note ---
Assessment/Plan Assessment/Plan Assessment: Severe sepsis 2ry to Gram positive bacteremia, UTI and probable PNA -u/a wbc 30-40, nit neg, leuk +2; ucx 10-20k PsA (R CIpro/levo, otherwise S) -07/20 Bcx 2/4 CONS; 07/21 10/25 GPC ; 07/22 NTD -sp cx ABC (I Tygecicline), CRE K,PNA -07/23 CXR : Improvement of persistent left pleural effusion and retrocardiac consolidation, over one day -CXR: Small left pleural effusion, not significantly changed. Unchanged subsegmental atelectasis versus infiltrate in the left lung base. -2d echo: no vegetations Fever Leukocytosis, SP DIVYA, improving Hx of UTI -04/2018 ucx >100k E. aerogenes (S cefepime, cipro/levo; R Zosyn) Hx of Bacteremia 04/2018 (PICC line infection, presumed endocarditis) -BCX 01/23 E. aerogenes, prob Amp C (S cefepime, cipro/levo; R Zosyn), P. 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 Will continue to follow along with you. Discussed with RN. Subjective Allergies: Coded Allergies: AZTREONAM (Verified Allergy, Unknown, 05/13/18) Subjective Tm 101.8 tachycardic no leukocytosis MDRO in sputum repeat Bcx NTD Objective Vital Signs Last 24 Hour Vital Signs Date Time Temp Pulse Resp B/P (MAP) Pulse Ox O2 Delivery O2 Flow Rate FiO2 07/24/18 15:03 122 18 30 07/24/18 14:25 130 07/24/18 13:22 100.6 07/24/18 13:11 123 19 30 07/24/18 12:00 Mechanical Ventilator 07/24/18 12:00 30 07/24/18 12:00 101.8 129 18 120/80 (93) 100 101.8 07/24/18 11:17 132 18 30 07/24/18 10:27 101.0 07/24/18 09:57 101.2 07/24/18 09:30 124 07/24/18 09:07 131 21 30 07/24/18 08:00 30 07/24/18 08:00 Mechanical Ventilator 07/24/18 08:00 101.2 130 22 121/93 (102) 99 101.2 07/24/18 07:50 121 19 30 07/24/18 04:56 114 17 30 07/24/18 04:00 30 07/24/18 04:00 Mechanical Ventilator Mechanical Ventilator 07/24/18 04:00 99.5 110 16 118/93 (101) 100 99.5 07/24/18 03:39 114 07/24/18 03:00 111 17 30 07/24/18 00:45 115 16 30 07/24/18 00:00 Mechanical Ventilator Mechanical Ventilator 07/24/18 00:00 100.2 115 16 111/67 (82) 100 100.2 07/23/18 23:51 100.6 07/23/18 23:44 115 07/23/18 22:46 116 18 30 07/23/18 20:55 114 18 30 07/23/18 20:00 30 07/23/18 20:00 Mechanical Ventilator Mechanical Ventilator 07/23/18 20:00 100.1 120 16 108/75 (86) 100 100.1 07/23/18 19:38 113 07/23/18 19:31 11 19 30 07/23/18 16:52 112 22 30 07/23/18 16:00 30 07/23/18 16:00 Mechanical Ventilator Mechanical Ventilator 07/23/18 16:00 112 07/23/18 16:00 99.9 117 17 118/79 (92) 100 99.9 Height (Feet): 5 Height (Inches): 8.00 Weight (Pounds): 163 Objective HEENT: Conjunctivae were pink. mucous membranes were not dehydrated.. Soft palate was free of ulcerations. Pharynx was clear from exudate or tonsillar hypertrophy. NECK: Supple. There was no goiter. No mass. No lymphadenopathy. There was no JVD. No bruits. Carotid upstroke was 2+. LUNGS: Clear. HEART: PMI was in fifth left intercostal space in midclavicular line. There was normal S1 and normal S2. There was no murmur. No arrhythmia. No S3. No S4. No pericardial rub. ABDOMEN: Soft and nontender without organomegaly. There were no masses palpable. Normal bowel sounds without bruits. There was no guarding. No rebound tenderness. No ascites. No hernia. No CVA tenderness. Liver span was 8 cm, smooth, and nontender. EXTREMITIES: No cyanosis, no clubbing, and no edema. Extremities were warm. Microbiology Date/Time Source Procedure Growth Status 07/22/18 14:35 Blood Blood Culture - Preliminary NO GROWTH AFTER 24 HOURS Resulted 07/22/18 14:20 Blood Blood Culture - Preliminary NO GROWTH AFTER 24 HOURS Resulted 07/21/18 21:15 Blood Blood Culture - Preliminary Resulted 07/21/18 21:15 Blood Blood Culture - Preliminary NO GROWTH AFTER 48 HOURS Resulted 07/23/18 03:46 Urine,Clean Catch Urine Culture - Preliminary Gram Negative Bacillus 1 Resulted Laboratory Tests Test 07/24/18 04:00 White Blood Count 10.1 K/UL (4.8-10.8) Red Blood Count 4.21 M/UL (4.70-6.10) L Hemoglobin 11.5 G/DL (14.2-18.0) L Hematocrit 38.4 % (42.0-52.0) L Mean Corpuscular Volume 91 FL (80-99) Mean Corpuscular Hemoglobin 27.4 PG (27.0-31.0) Mean Corpuscular Hemoglobin Concent 30.0 G/DL (32.0-36.0) L Red Cell Distribution Width 14.0 % (11.6-14.8) Platelet Count 286 K/UL (150-450) Mean Platelet Volume 9.4 FL (6.5-10.1) Neutrophils (%) (Auto) 66.0 % (45.0-75.0) Lymphocytes (%) (Auto) 22.5 % (20.0-45.0) Monocytes (%) (Auto) 5.5 % (1.0-10.0) Eosinophils (%) (Auto) 5.1 % (0.0-3.0) H Basophils (%) (Auto) 0.9 % (0.0-2.0) Sodium Level 143 MMOL/L (136-145) Potassium Level 3.8 MMOL/L (3.5-5.1) Chloride Level 110 MMOL/L (98-107) H Carbon Dioxide Level 22 MMOL/L (21-32) Anion Gap 11 mmol/L (5-15) Blood Urea Nitrogen 19 mg/dL (7-18) H Creatinine 1.3 MG/DL (0.55-1.30) Estimat Glomerular Filtration Rate > 60 mL/min (>60) Glucose Level 226 MG/DL (74-106) H Calcium Level 10.2 MG/DL (8.5-10.1) H Phosphorus Level 2.1 MG/DL (2.5-4.9) L Magnesium Level 2.1 MG/DL (1.8-2.4) Total Bilirubin 0.3 MG/DL (0.2-1.0) Aspartate Amino Transf (AST/SGOT) 29 U/L (15-37) Alanine Aminotransferase (ALT/SGPT) 23 U/L (12-78) Alkaline Phosphatase 90 U/L (46-116) Total Protein 7.7 G/DL (6.4-8.2) Albumin 2.5 G/DL (3.4-5.0) L Globulin 5.2 g/dL Albumin/Globulin Ratio 0.5 (1.0-2.7) L Current Medications Medications (Trade) Dose Ordered Sig/Va Route PRN Reason Start Time Stop Time Status Last Admin Dose Admin Acetaminophen (Tylenol) 650 mg Q4H PRN ORAL FEVER 07/20/18 15:05 08/19/18 15:04 07/24/18 13:22 Albuterol/ Ipratropium (Albuterol/ Ipratropium) 3 ml Q4H PRN HHN Shortness of Breath 07/20/18 15:04 07/25/18 15:03 Ascorbic Acid (Vitamin C) 500 mg DAILY GT 07/22/18 09:00 08/21/18 08:59 07/24/18 08:54 Baclofen (Lioresal) 10 mg THREE TIMES A DAY GT 07/20/18 18:00 08/19/18 17:59 07/24/18 13:21 Dextrose (Dextrose 50%) 25 ml Q30M PRN IV Hypoglycemia 07/24/18 15:15 08/23/18 15:14 Dextrose (Dextrose 50%) 50 ml Q30M PRN IV Hypoglycemia 07/24/18 15:15 08/23/18 15:14 Heparin Sodium (Porcine) (Heparin 5000 units/ml) 5,000 units EVERY 12 HOURS SUBQ 07/20/18 21:00 08/19/18 20:59 07/24/18 08:56 Insulin Aspart (NovoLOG) Q6HR SUBQ 07/21/18 00:00 08/19/18 16:29 07/24/18 11:55 Levetiracetam (Keppra) 1,000 mg BID GT 07/20/18 18:00 08/19/18 17:59 07/24/18 08:54 Lorazepam (Ativan 2mg/ml 1ml) 2 mg Q2H PRN IV For Anxiety 07/20/18 15:11 07/27/18 15:10 Meropenem 1 gm/ Sodium Chloride 55 ml @ 110 mls/hr Q8HR IVPB 07/22/18 14:00 07/27/18 13:59 07/24/18 13:21 Morphine Sulfate (Morphine Sulfate) 4 mg Q4H PRN IVP Severe Pain (Pain Scale 7-10) 07/20/18 15:08 07/27/18 15:07 Ondansetron HCl (Zofran) 4 mg Q6H PRN IVP Nausea & Vomiting 07/20/18 15:05 08/19/18 15:04 Pantoprazole (Protonix) 40 mg DAILY IV 07/21/18 09:00 08/20/18 08:59 07/24/18 08:54 Polyethylene Glycol (Miralax) 17 gm DAILYPRN PRN GT Constipation 07/20/18 15:45 08/19/18 15:04 Potassium Chloride 40 meq/ Dextrose/Sodium Chloride 1,020 ml @ 50 mls/hr [id number] IV 07/23/18 13:30 08/22/18 13:29 07/24/18 09:57 Sitagliptin Phosphate (Januvia) 50 mg DAILY GT 07/21/18 09:00 08/20/18 08:59 07/24/18 08:54 Vancomycin HCl (Rx Monitoring Vancomycin) 1 ea DAILY PRN MISC PER RX 07/20/18 15:30 08/19/18 15:29 Vancomycin HCl/ Dextrose 250 ml @ 125 mls/hr Q24H IVPB 07/23/18 15:30 07/28/18 15:29 07/23/18 15:34 Vitamin A/Vitamin D (A & D Oint) 1 applic Q12H TOPIC 07/20/18 21:00 08/19/18 20:59 07/24/18 08:54 Maribel Barrera M.D. Jul 24, 2018 15:54
[2018-07-24 16:00] VITALS: BP 117/90
[2018-07-24] MEDS ORDERED: DAPTOmycin 450 MG in NS 55 ML IV SCH (18:00)
--- NOTE | 2018-07-24 19:31 | Cardiology Report ---
APPROVED REPORT EXAM: Two-dimensional and M-mode echocardiogram with Doppler and color Doppler. INDICATION VEGITATION M-Mode DIMENSIONS IVSd1.2 (0.7-1.1cm)Left Atrium (MM)2.5 (1.6-4.0cm) LVDd4.2 (3.5-5.6cm)Aortic Root3.8 (2.0-3.7cm) PWd1.4 (0.7-1.1cm)Aortic Cusp Exc.1.9 (1.5-2.0cm) IVSs1.3 cm LVDs2.7 (2.5-4.0cm) PWs1.4 cm Normal left ventricular chamber size, systolic function and wall motion Left ventricular ejection fraction estimated to be 55-60 %. Mild to moderate left ventricular hypertrophy by 2-D. Small Anterior Echo-free space, may be due to pericardial fat or effusion. All other cardiac chamber sizes are within normal limits. Focal aortic valve sclerosis with adequate cusp excursion. Thickened mitral valve leaflets with normal excursion. Mitral annulus and aortic root calcification. Pulmonic valve not well visualized. Normal tricuspid valve structure. IVC at size 1.6 cm without physiologic collapse. No vegitation seen, however SBE may not be excluded by TTE - 2-D echocardiogram . A color flow and spectral Doppler study was performed and revealed: No aortic insufficiency . Trace mitral regurgitation. Normal Left ventricular diastolic function. Trace tricuspid regurgitation. Tricuspid systolic velocities suggests peak right ventricular systolic pressure of 19mmHg.
[2018-07-24 20:00] VITALS: BP 139/94
[2018-07-24] MEDS: Colistin 150mg vial IVP SCH (21:38)
[2018-07-25] VITALS: BP 137/98
[2018-07-25 04:00] VITALS: BP 136/96
[2018-07-25 04:44] LABS: HEMATOCRIT 44.2 % (42.0-52.0); MEAN CORPUSCULAR VOLUME 88 FL (80-99); PLATELET COUNT 336 K/UL (150-450); RED BLOOD COUNT 5.02 M/UL (4.70-6.10); RED CELL DISTRIBUTION WIDTH 14.4 % (11.6-14.8); WHITE BLOOD COUNT 21.5 K/UL (4.8-10.8)
[2018-07-25 05:18] LABS: ANION GAP 11 mmol/L (5-15); BLOOD UREA NITROGEN 18 mg/dL (7-18); CALCIUM 10.1 MG/DL (8.5-10.1); CARBON DIOXIDE 22 MMOL/L (21-32); CHLORIDE 109 MMOL/L (98-107); CREATININE 1.3 MG/DL (0.55-1.30); SODIUM 142 MMOL/L (136-145)
[2018-07-25 05:29] LABS: CREATINE KINASE 439 U/L (26-308)
[2018-07-25] MEDS: NovoLOG Insulin Flexpen SUBQ SCH ×4 (06:02→23:28)
[2018-07-25] MEDS: Potassium Chloride 40 MEQ in D5 1/4NS 1000ml 1,000 ML IV SCH ×2 (06:18→20:53)
[2018-07-25 08:00] VITALS: BP 123/84
--- NOTE | 2018-07-25 08:10 | Infectious Diseases Prog Note ---
Assessment/Plan Assessment/Plan Assessment: Severe sepsis 2ry to Gram positive bacteremia, UTI and probable PNA -u/a wbc 30-40, nit neg, leuk +2; ucx 10-20k PsA (R CIpro/levo, otherwise S) -07/20 Bcx / CONS; 07/21 10/25 GPC ; 07/22 NTD -sp cx ABC (I Tygecicline), CRE K,PNA -07/23 CXR : Improvement of persistent left pleural effusion and retrocardiac consolidation, over one day -CXR: Small left pleural effusion, not significantly changed. Unchanged subsegmental atelectasis versus infiltrate in the left lung base. -2d echo: no vegetations Fever Leukocytosis, DIVYA, improving Hx of UTI -04/2018 ucx >100k E. aerogenes (S cefepime, cipro/levo; R Zosyn) Hx of Bacteremia 04/2018 (PICC line infection, presumed endocarditis) -BCX 01/23 E. aerogenes, prob Amp C (S cefepime, cipro/levo; R Zosyn), P. 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 Plan: - Add Tygacil d# 1 ( Coverage of [facility] , as Avycaz not available ) - Cont Daptomycind# 2 ( AB Rx d# 6 )for gram positive bacteremia pending repeat cultures and to minimize nephrotoxicity - Cont IV Colistin and add INH colistin d# 2 for MDR ABC and CRE K.pna in sputum cx -07/24 SP Switch empiric IV Vancomycin # 5 and Merrem d# 3 -07/20 SP Cefepime x1 -06/30 SP IV Vancomycin #42 -05/30 SP Ertapenem #14 -05/17/18 SP Zosyn #4 -f/u Bcx x2 -f/u cx -Monitor CBC/CMP, temperatures -trach/peg care -wound care/prevention per hospital care Subjective Allergies: Coded Allergies: AZTREONAM (Verified Allergy, Unknown, 05/13/18) Subjective wbc increased today Objective Vital Signs Last 24 Hour Vital Signs Date Time Temp Pulse Resp B/P (MAP) Pulse Ox O2 Delivery O2 Flow Rate FiO2 07/25/18 06:45 138 20 30 07/25/18 05:05 137 21 30 07/25/18 04:32 92 07/25/18 04:00 99.9 137 21 136/96 (109) 100 99.9 07/25/18 04:00 30 07/25/18 04:00 Mechanical Ventilator 07/25/18 03:10 140 20 30 07/25/18 01:13 Mechanical Ventilator 30 07/25/18 01:13 Mechanical Ventilator 30 07/25/18 01:10 137 19 30 07/25/18 00:00 Mechanical Ventilator 07/25/18 00:00 30 07/25/18 00:00 99.9 134 22 137/98 (111) 99 99.9 07/24/18 23:39 134 07/24/18 22:45 135 20 30 07/24/18 22:10 99.9 07/24/18 21:40 100.6 07/24/18 20:45 130 18 30 07/24/18 20:00 Mechanical Ventilator 07/24/18 20:00 100.8 128 20 139/94 (109) 99 100.8 07/24/18 20:00 30 07/24/18 19:09 126 18 30 07/24/18 19:04 127 07/24/18 17:06 123 19 30 07/24/18 17:04 121 07/24/18 16:00 97.3 125 18 117/90 (99) 100 97.3 07/24/18 16:00 Mechanical Ventilator 07/24/18 16:00 30 07/24/18 16:00 30 07/24/18 15:03 122 18 30 07/24/18 14:25 130 07/24/18 13:22 100.6 07/24/18 13:11 123 19 30 07/24/18 12:00 Mechanical Ventilator 07/24/18 12:00 30 07/24/18 12:00 101.8 129 18 120/80 (93) 100 101.8 07/24/18 11:17 132 18 30 07/24/18 09:57 101.2 07/24/18 09:30 124 07/24/18 09:07 131 21 30 Height (Feet): 5 Height (Inches): 8.00 Weight (Pounds): 163 HEENT: anicteric Respiratory/Chest: no respiratory distress Cardiovascular: no gallop/murmur Abdomen: no organomegaly Microbiology Date/Time Source Procedure Growth Status 07/22/18 14:35 Blood Blood Culture - Preliminary NO GROWTH AFTER 48 HOURS Resulted 07/22/18 14:20 Blood Blood Culture - Preliminary NO GROWTH AFTER 48 HOURS Resulted 07/23/18 03:46 Urine,Clean Catch Urine Culture - Preliminary Gram Negative Bacillus 1 Resulted Laboratory Tests Test 07/25/18 03:45 White Blood Count 21.5 K/UL (4.8-10.8) #H Red Blood Count 5.02 M/UL (4.70-6.10) Hemoglobin 14.0 G/DL (14.2-18.0) L Hematocrit 44.2 % (42.0-52.0) Mean Corpuscular Volume 88 FL (80-99) Mean Corpuscular Hemoglobin 27.9 PG (27.0-31.0) Mean Corpuscular Hemoglobin Concent 31.8 G/DL (32.0-36.0) L Red Cell Distribution Width 14.4 % (11.6-14.8) Platelet Count 336 K/UL (150-450) Mean Platelet Volume 9.2 FL (6.5-10.1) Neutrophils (%) (Auto) % (45.0-75.0) Lymphocytes (%) (Auto) % (20.0-45.0) Monocytes (%) (Auto) % (1.0-10.0) Eosinophils (%) (Auto) % (0.0-3.0) Basophils (%) (Auto) % (0.0-2.0) Neutrophils % (Manual) Pending Lymphocytes % (Manual) Pending Platelet Estimate Pending Platelet Morphology Pending Sodium Level 142 MMOL/L (136-145) Potassium Level 4.0 MMOL/L (3.5-5.1) Chloride Level 109 MMOL/L (98-107) H Carbon Dioxide Level 22 MMOL/L (21-32) Anion Gap 11 mmol/L (5-15) Blood Urea Nitrogen 18 mg/dL (7-18) Creatinine 1.3 MG/DL (0.55-1.30) Estimat Glomerular Filtration Rate > 60 mL/min (>60) Glucose Level 234 MG/DL (74-106) H Calcium Level 10.1 MG/DL (8.5-10.1) Total Creatine Kinase 439 U/L (26-308) H Current Medications Medications (Trade) Dose Ordered Sig/Va Route PRN Reason Start Time Stop Time Status Last Admin Dose Admin Acetaminophen (Tylenol) 650 mg Q4H PRN ORAL FEVER 07/20/18 15:05 08/19/18 15:04 07/24/18 21:40 Albuterol/ Ipratropium (Albuterol/ Ipratropium) 3 ml Q4H PRN HHN Shortness of Breath 07/20/18 15:04 07/25/18 15:03 Ascorbic Acid (Vitamin C) 500 mg DAILY GT 07/22/18 09:00 08/21/18 08:59 07/24/18 08:54 Baclofen (Lioresal) 10 mg THREE TIMES A DAY GT 07/20/18 18:00 08/19/18 17:59 07/24/18 17:49 Colistimethate Sodium (Colistin *inhalation use only*) 150 mg Q12HR@10,22 INH 07/24/18 22:00 07/31/18 21:59 Colistimethate Sodium (Colistin) 150 mg EVERY 12 HOURS IVP 07/24/18 21:00 07/31/18 20:59 07/24/18 21:38 Daptomycin 450 mg/ Sodium Chloride 55 ml @ 100 mls/hr Q24H IV 07/24/18 18:00 07/31/18 17:59 07/24/18 18:00 Dextrose (Dextrose 50%) 25 ml Q30M PRN IV Hypoglycemia 07/24/18 15:15 08/23/18 15:14 Dextrose (Dextrose 50%) 50 ml Q30M PRN IV Hypoglycemia 07/24/18 15:15 08/23/18 15:14 Heparin Sodium (Porcine) (Heparin 5000 units/ml) 5,000 units EVERY 12 HOURS SUBQ 07/20/18 21:00 08/19/18 20:59 07/24/18 21:40 Insulin Aspart (NovoLOG) Q6HR SUBQ 07/21/18 00:00 08/19/18 16:29 07/25/18 06:02 Levetiracetam (Keppra) 1,000 mg BID GT 07/20/18 18:00 08/19/18 17:59 07/24/18 17:49 Lorazepam (Ativan 2mg/ml 1ml) 2 mg Q2H PRN IV For Anxiety 07/20/18 15:11 07/27/18 15:10 Morphine Sulfate (Morphine Sulfate) 4 mg Q4H PRN IVP Severe Pain (Pain Scale 7-10) 07/20/18 15:08 07/27/18 15:07 Ondansetron HCl (Zofran) 4 mg Q6H PRN IVP Nausea & Vomiting 07/20/18 15:05 08/19/18 15:04 Pantoprazole (Protonix) 40 mg DAILY IV 07/21/18 09:00 08/20/18 08:59 07/24/18 08:54 Polyethylene Glycol (Miralax) 17 gm DAILYPRN PRN GT Constipation 07/20/18 15:45 08/19/18 15:04 Potassium Chloride 40 meq/ Dextrose/Sodium Chloride 1,020 ml @ 50 mls/hr [id number] IV 07/23/18 13:30 08/22/18 13:29 07/24/18 09:57 Sitagliptin Phosphate (Januvia) 50 mg DAILY GT 07/21/18 09:00 08/20/18 08:59 07/24/18 08:54 Vitamin A/Vitamin D (A & D Oint) 1 applic Q12H TOPIC 07/20/18 21:00 08/19/18 20:59 07/24/18 21:38 Christian Manriquez MD Jul 25, 2018 08:10
--- NOTE | 2018-07-25 08:57 | General Progress Note ---
Assessment/Plan Assessment/Plan # Leukocytosis - sepsis with elevated temperature of 103 degrees Fahrenheit on admission. Had uti v bacteremia (CoNS) on abx, has improved, had infection on prior admission. --> Pt on antibiotics, has received colistin and daptomycin --> Appreciate Infectious Disease recs --> 2D echo per ID performed on 05/22: No discrete vegetations seen, however SBE may not be excluded by transthoracic 2-D echo --> CURRENT WBC of 7.9, wnl --> Currently afebrile # Anemia of chronic disease. No hemolysis, peripheral smear reviewed, ferritin was elevated. --> Continue to closely monitor --> Hgb goal >7 --> CURRENT Hgb 13.1--> hemoconcentration --> retic 1371, % sat 24% # Acute kidney injury on ivf --> Currently on IV fluids, IV bolus given to see if the patient responds along with IV pressor as needed. --> Closely monitor with Nephrology team. # Septic shock, use antibiotic per ID services. --> potential uti, on abx and bacteremia on abx # Respiratory failure, status post tracheostomy, on mechanical ventilation per Dr. Goetz --> Remains on vent/trach --> 06/03 CXR: Unchanged left pleural effusion versus scarring, over 4 days # Hypercalcemia. PTH is 37 and Ca++ is elevated --> monitor for improvement The time the note was entered does not necessarily correspond to the time the patient was seen. Greatly appreciate consultation! Subjective Cardiovascular: Denies: no symptoms, chest pain, edema, irregular heart rate, lightheadedness, palpitations, syncope, other Respiratory: Denies: no symptoms, cough, orthopnea, shortness of breath, SOB with excertion, SOB at rest, sputum, stridor, wheezing, other Gastrointestinal/Abdominal: Denies: no symptoms, abdomen distended, abdominal pain, black stools, tarry stools, blood in stool, constipated, diarrhea, difficulty swallowing, nausea, poor appetite, poor fluid intake, rectal bleeding , vomiting, other Genitourinary: Denies: no symptoms, burning, discharge, frequency, flank pain, hematuria, incontinence, pain, urgency, other Endocrine: Denies: no symptoms, excessive sweating, flushing, intolerance to cold, intolerance to heat, increased hunger, increased thirst, increased urine, unexplained weight gain, unexplained weight loss, other Allergies: Coded Allergies: AZTREONAM (Verified Allergy, Unknown, 05/13/18) Subjective no events noted, remains tachycardic, on abx at this time Objective Last 24 Hour Vital Signs Date Time Temp Pulse Resp B/P (MAP) Pulse Ox O2 Delivery O2 Flow Rate FiO2 07/25/18 08:33 137 07/25/18 06:45 138 20 30 07/25/18 05:05 137 21 30 07/25/18 04:32 92 07/25/18 04:00 99.9 137 21 136/96 (109) 100 99.9 07/25/18 04:00 30 07/25/18 04:00 Mechanical Ventilator 07/25/18 03:10 140 20 30 07/25/18 01:13 Mechanical Ventilator 30 07/25/18 01:13 Mechanical Ventilator 30 07/25/18 01:10 137 19 30 07/25/18 00:00 Mechanical Ventilator 07/25/18 00:00 30 07/25/18 00:00 99.9 134 22 137/98 (111) 99 99.9 07/24/18 23:39 134 07/24/18 22:45 135 20 30 07/24/18 22:10 99.9 07/24/18 21:40 100.6 07/24/18 20:45 130 18 30 07/24/18 20:00 Mechanical Ventilator 07/24/18 20:00 100.8 128 20 139/94 (109) 99 100.8 07/24/18 20:00 30 07/24/18 19:09 126 18 30 07/24/18 19:04 127 07/24/18 17:06 123 19 30 07/24/18 17:04 121 07/24/18 16:00 97.3 125 18 117/90 (99) 100 97.3 07/24/18 16:00 Mechanical Ventilator 07/24/18 16:00 30 07/24/18 16:00 30 07/24/18 15:03 122 18 30 07/24/18 14:25 130 07/24/18 13:22 100.6 07/24/18 13:11 123 19 30 07/24/18 12:00 Mechanical Ventilator 07/24/18 12:00 30 07/24/18 12:00 101.8 129 18 120/80 (93) 100 101.8 07/24/18 11:17 132 18 30 07/24/18 09:57 101.2 07/24/18 09:30 124 07/24/18 09:07 131 21 30 Intake and Output 07/24/18 07/25/18 19:00 07:00 Intake Total 1235 ml 1355 ml Output Total 150 ml 700 ml Balance 1085 ml 655 ml Intake Free Water 100 ml 180 ml IV Total 655 ml 500 ml Tube Feeding 480 ml 675 ml Output Urine Total 150 ml 550 ml Stool Total 150 ml Laboratory Tests 07/25/18 03:45: White Blood Count 21.5#H, Red Blood Count 5.02, Hemoglobin 14.0L, Hematocrit 44.2, Mean Corpuscular Volume 88, Mean Corpuscular Hemoglobin 27.9, Mean Corpuscular Hemoglobin Concent 31.8L, Red Cell Distribution Width 14.4, Platelet Count 336, Mean Platelet Volume 9.2, Neutrophils (%) (Auto) , Lymphocytes (%) (Auto) , Monocytes (%) (Auto) , Eosinophils (%) (Auto) , Basophils (%) (Auto) , Differential Total Cells Counted 100, Neutrophils % ( Manual) 81H, Lymphocytes % (Manual) 8L, Monocytes % (Manual) 8, Eosinophils % ( Manual) 3, Basophils % (Manual) 0, Band Neutrophils 0, Nucleated Red Blood Cells 1, Platelet Estimate Adequate, Platelet Morphology Normal, Red Blood Cell Morphology Normal, Sodium Level 142, Potassium Level 4.0, Chloride Level 109H, Carbon Dioxide Level 22, Anion Gap 11, Blood Urea Nitrogen 18, Creatinine 1.3, Estimat Glomerular Filtration Rate > 60, Glucose Level 234H, Calcium Level 10.1 , Total Creatine Kinase 439H Height (Feet): 5 Height (Inches): 8.00 Weight (Pounds): 163 Respiratory/Chest: other - trach/vent Jimmy Fleming MD Jul 25, 2018 08:57
[2018-07-25] MEDS: levETIRAcetam 500mg/5ml Liquid GT SCH ×2 (09:07→18:00)
[2018-07-25] MEDS: Ascorbic Acid 500mg tab GT SCH (09:08)
[2018-07-25] MEDS: sitaGLIPtin 25mg tab GT SCH (09:08)
[2018-07-25] MEDS: Pantoprazole Inj IV SCH (09:08)
[2018-07-25] MEDS: Vitamin A&D Oint 2oz Tube TOPIC SCH ×2 (09:08→20:52)
[2018-07-25] MEDS: Heparin 5000 units/ml inj SUBQ SCH ×2 (09:09→20:30)
[2018-07-25] MEDS: Colistin 150mg vial IVP SCH ×2 (09:14→20:52)
[2018-07-25] MEDS: Colistin for inhalation INH SCH ×2 (10:01→21:26)
--- NOTE | 2018-07-25 10:38 | Pulmonolgy Critical Care Note ---
Critical Care - Asmt/Plan Problems: (1) Acute on chronic respiratory failure (2) Sepsis (3) UTI (urinary tract infection) (4) Diabetes mellitus (5) Vegetative state (6) Colostomy in place Respiratory: monitor respiratory rate, adjust FIO2, CXR Cardiac: continue to monitor HR/BP Renal: F/U I&O Infectious Disease: check cultures Gastrointestinal: continue feedings/current rate Endocrine: monitor blood sugar, check TSH Hematologic: monitor H/H, transfuse if hgb<8.5 Neurologic: keep patient comfortable Prophylaxis: Heparin Notes Reviewed: renal Discussed with: nurses, consultants, case assemblermanager news - Objective Last 24 Hour Vital Signs Date Time Temp Pulse Resp B/P (MAP) Pulse Ox O2 Delivery O2 Flow Rate FiO2 07/25/18 10:10 134 16 99 Mechanical Ventilator 15.0 30 07/25/18 10:00 139 23 100 Mechanical Ventilator 15.0 30 07/25/18 10:00 30 07/25/18 09:15 135 18 30 07/25/18 08:33 137 07/25/18 08:00 30 07/25/18 08:00 101.2 136 21 123/84 (97) 100 101.2 07/25/18 08:00 Mechanical Ventilator 07/25/18 06:45 138 20 30 07/25/18 05:05 137 21 30 07/25/18 04:32 92 07/25/18 04:00 99.9 137 21 136/96 (109) 100 99.9 07/25/18 04:00 30 07/25/18 04:00 Mechanical Ventilator 07/25/18 03:10 140 20 30 07/25/18 01:13 Mechanical Ventilator 30 07/25/18 01:13 Mechanical Ventilator 30 07/25/18 01:10 137 19 30 07/25/18 00:00 Mechanical Ventilator 07/25/18 00:00 30 07/25/18 00:00 99.9 134 22 137/98 (111) 99 99.9 07/24/18 23:39 134 07/24/18 22:45 135 20 30 07/24/18 22:10 99.9 07/24/18 21:40 100.6 07/24/18 20:45 130 18 30 07/24/18 20:00 Mechanical Ventilator 07/24/18 20:00 100.8 128 20 139/94 (109) 99 100.8 07/24/18 20:00 30 07/24/18 19:09 126 18 30 07/24/18 19:04 127 07/24/18 17:06 123 19 30 07/24/18 17:04 121 07/24/18 16:00 97.3 125 18 117/90 (99) 100 97.3 07/24/18 16:00 Mechanical Ventilator 07/24/18 16:00 30 07/24/18 16:00 30 07/24/18 15:03 122 18 30 07/24/18 14:25 130 07/24/18 13:22 100.6 07/24/18 13:11 123 19 30 07/24/18 12:00 Mechanical Ventilator 07/24/18 12:00 30 07/24/18 12:00 101.8 129 18 120/80 (93) 100 101.8 07/24/18 11:17 132 18 30 Status: obtunded Condition: critical HEENT: atraumatic Neck: full ROM Lungs: chest wall tender Heart: HR/BP stable, regular Abdomen: non-tender, feeding tube Extremities: no C/C/E, edema Micro: Microbiology Date/Time Source Procedure Growth Status 07/22/18 14:35 Blood Blood Culture - Preliminary NO GROWTH AFTER 48 HOURS Resulted 07/22/18 14:20 Blood Blood Culture - Preliminary NO GROWTH AFTER 48 HOURS Resulted 07/23/18 03:46 Urine,Clean Catch Urine Culture - Final Pseudomonas Aeruginosa Complete Accucheck: 237 Critical Care - Subjective ROS Limited/Unobtainable: Yes Condition: critical FI02: 30 Vent Support Breath Rate: 16 Vent Support Mode: AC Vent Tidal Volume: 600 Sputum Amount: Scant PEEP: 5.0 PIP: 26 Tube Feeding Amount: 60 I&O: Intake and Output 07/24/18 07/25/18 19:00 07:00 Intake Total 1235 ml 1355 ml Output Total 150 ml 700 ml Balance 1085 ml 655 ml Intake Free Water 100 ml 180 ml IV Total 655 ml 500 ml Tube Feeding 480 ml 675 ml Output Urine Total 150 ml 550 ml Stool Total 150 ml CXR: no changes Labs: Laboratory Tests Test 07/25/18 03:45 White Blood Count 21.5 K/UL (4.8-10.8) #H Red Blood Count 5.02 M/UL (4.70-6.10) Hemoglobin 14.0 G/DL (14.2-18.0) L Hematocrit 44.2 % (42.0-52.0) Mean Corpuscular Volume 88 FL (80-99) Mean Corpuscular Hemoglobin 27.9 PG (27.0-31.0) Mean Corpuscular Hemoglobin Concent 31.8 G/DL (32.0-36.0) L Red Cell Distribution Width 14.4 % (11.6-14.8) Platelet Count 336 K/UL (150-450) Mean Platelet Volume 9.2 FL (6.5-10.1) Neutrophils (%) (Auto) % (45.0-75.0) Lymphocytes (%) (Auto) % (20.0-45.0) Monocytes (%) (Auto) % (1.0-10.0) Eosinophils (%) (Auto) % (0.0-3.0) Basophils (%) (Auto) % (0.0-2.0) Differential Total Cells Counted 100 Neutrophils % (Manual) 81 % (45-75) H Lymphocytes % (Manual) 8 % (20-45) L Monocytes % (Manual) 8 % (1-10) Eosinophils % (Manual) 3 % (0-3) Basophils % (Manual) 0 % (0-2) Band Neutrophils 0 % (0-8) Nucleated Red Blood Cells 1 /100 WBC Platelet Estimate Adequate Platelet Morphology Normal Red Blood Cell Morphology Normal Sodium Level 142 MMOL/L (136-145) Potassium Level 4.0 MMOL/L (3.5-5.1) Chloride Level 109 MMOL/L (98-107) H Carbon Dioxide Level 22 MMOL/L (21-32) Anion Gap 11 mmol/L (5-15) Blood Urea Nitrogen 18 mg/dL (7-18) Creatinine 1.3 MG/DL (0.55-1.30) Estimat Glomerular Filtration Rate > 60 mL/min (>60) Glucose Level 234 MG/DL (74-106) H Calcium Level 10.1 MG/DL (8.5-10.1) Total Creatine Kinase 439 U/L (26-308) H Nico Goetz MD Jul 25, 2018 10:38
[2018-07-25 12:00] VITALS: BP 111/77
[2018-07-25 16:00] VITALS: BP 103/76
[2018-07-25] MEDS ORDERED: Tigecycline 100mg in D5W 110ml IVPB ONE (16:00)
[2018-07-25] MEDS ORDERED: Tigecycline 100 MG in NS 110 ML IVPB ONE (16:00)
[2018-07-25] MEDS ORDERED: NS 275ml ONE (16:21)
[2018-07-25] MEDS ORDERED: NS Irrig 1000ml ONE (16:21)
[2018-07-25] MEDS ORDERED: Tubing IV Secondary IV ONE (16:21)
--- NOTE | 2018-07-25 18:00 | Progress Note ---
DATE: 07/24/2018 SUBJECTIVE: The patient again had low-grade fever and tachycardia. PHYSICAL EXAMINATION: VITAL SIGNS: Blood pressure 139/94, his pulse is 130, respirations 19, and temperature is 100.6. HEENT: Eyes were normal. ENT, mucous membranes were moist and intact. NECK: Supple with no JVD without lymph nodes. Tracheostomy site is clean. LUNGS: Clear without rhonchi, rales, or wheezing. Secretions are small, thin, and hodgson. HEART: Normal sounds with regular beats. There is no S3, S4, or pericardial rub. ABDOMEN: Soft and nontender with normal bowel sounds. Gastrostomy site is clean. EXTREMITIES: Warm without cyanosis, clubbing, or edema. LABORATORY AND DIAGNOSTIC DATA: His hemoglobin is 11.5, hematocrit 38.4 with MCV of 91, WBC of 10.1, and platelets is 286,000. His BUN and creatinine is 19 and 1.3 respectively. His sodium is 143, potassium 3.8, and chloride 110. CO2 is 22. His calcium is 10.2. His glucose is 226. SGOT and SGPT are normal. His albumin is 2.5 and total protein is 7.7. Chest x-ray showed improvement in . An echocardiogram for the patient improve. IMPRESSION: The patient has recurrent pneumonia and left pleural effusion. Urine culture from gram-negative bacilli. Blood culture taken showed no growth in 24 hours. Repeat laboratory tests will be done in the a.m. Sariah Bhat M.D. DR: KETAN JOB#: [id number] CC:
[2018-07-25 20:00] VITALS: BP 101/75
[2018-07-25] MEDS: DAPTOmycin 450 MG in NS 55 ML IV SCH (20:00)
[2018-07-26] VITALS: BP 105/67
[2018-07-26 04:00] VITALS: BP 109/78
[2018-07-26] MEDS: Tigecycline 50mg in D5W 110ml IVPB SCH ×2 (04:15→16:13)
--- NOTE | 2018-07-26 05:00 | Progress Note ---
DATE: 07/25/2018 SUBJECTIVE: The patient remained tachycardic and he is minimally febrile. PHYSICAL EXAMINATION: VITAL SIGNS: Blood pressure is 105/67, pulse is 131, respirations 25, and temperature 98.9. HEENT: Eyes are normal. ENT, mucous membranes were moist and intact. NECK: Supple with no JVD and without lymph nodes. Tracheostomy site is clean. LUNGS: Clear without rhonchi, rales, or wheezing. Secretions are small, thin, and hodgson. HEART: Normal sounds with regular beats. There is no S3, S4, or pericardial rub. ABDOMEN: Soft and nontender with normal bowel sounds. Gastrostomy site is clean. EXTREMITIES: Warm without cyanosis, clubbing, or edema. LABORATORY DATA: Laboratory data, his hemoglobin is 14.1, hematocrit 44.2, with MCV of 88, WBC of 21, and platelets 326. His BUN and creatinine are 18 and 1.3 respectively. His sodium is 142, potassium 4.0, chloride 109, and CO2 is 22. His total CK is 439. Urine culture reported on 07/23/2018 Pseudomonas aeruginosa. He was started on amikacin and Tygacil antibiotic. IMPRESSION AND PLAN: Recurrent sepsis Tygacil antibiotic. Repeat laboratory tests will be done in the a.m. Sariah Bhat M.D. DR: AUSTEN JOB#: [id number] CC:
[2018-07-26] MEDS: NovoLOG Insulin Flexpen SUBQ SCH ×4 (05:23→23:09)
[2018-07-26 07:09] LABS: EOSINOPHILS % (AUTO) 2.9 % (0.0-3.0); HEMATOCRIT 42.1 % (42.0-52.0); HEMOGLOBIN 13.3 G/DL (14.2-18.0); LYMPHOCYTES % (AUTO) 20.3 % (20.0-45.0); MEAN CORPUSCULAR VOLUME 89 FL (80-99); MONOCYTES % (AUTO) 5.8 % (1.0-10.0); PLATELET COUNT 308 K/UL (150-450); RED BLOOD COUNT 4.74 M/UL (4.70-6.10); RED CELL DISTRIBUTION WIDTH 14.3 % (11.6-14.8); WHITE BLOOD COUNT 17.3 K/UL (4.8-10.8)
[2018-07-26 07:38] LABS: ALANINE AMINOTRANSFERASE 24 U/L (12-78); ALBUMIN 2.3 G/DL (3.4-5.0); ALBUMIN/GLOBULIN RATIO 0.4 (1.0-2.7); ALKALINE PHOSPHATASE 99 U/L (46-116); ANION GAP 11 mmol/L (5-15); ASPARTATE AMINO TRANSFERASE 20 U/L (15-37); BILIRUBIN,TOTAL 0.8 MG/DL (0.2-1.0); BLOOD UREA NITROGEN 23 mg/dL (7-18); CARBON DIOXIDE 23 MMOL/L (21-32); CHLORIDE 108 MMOL/L (98-107); CREATININE 1.2 MG/DL (0.55-1.30); POTASSIUM 4.3 MMOL/L (3.5-5.1); SODIUM 142 MMOL/L (136-145)
[2018-07-26 08:00] VITALS: BP 103/56
[2018-07-26] MEDS: levETIRAcetam 500mg/5ml Liquid GT SCH ×2 (09:02→18:29)
[2018-07-26] MEDS: sitaGLIPtin 25mg tab GT SCH (09:02)
[2018-07-26] MEDS: Ascorbic Acid 500mg tab GT SCH (09:02)
[2018-07-26] MEDS: Pantoprazole Inj IV SCH (09:03)
[2018-07-26] MEDS: Vitamin A&D Oint 2oz Tube TOPIC SCH ×2 (09:03→20:34)
[2018-07-26] MEDS: Heparin 5000 units/ml inj SUBQ SCH ×2 (09:03→20:37)
[2018-07-26] MEDS: Colistin 150mg vial IVP SCH ×2 (09:06→09:41)
--- NOTE | 2018-07-26 10:13 | Diagnostic Imaging Report ---
Indication: Dyspnea Technique: One view of the chest Comparison: 07/23/2018 Findings: Left-sided pleural effusion is again demonstrated. Interim development of atelectasis in the right perihilar region. The remainder the lungs and pleural spaces are clear. There is a tracheostomy. Impression: Unchanged left pleural effusion New finding of right perihilar atelectasis
--- NOTE | 2018-07-26 11:31 | Pulmonolgy Critical Care Note ---
Critical Care - Asmt/Plan Problems: (1) Acute on chronic respiratory failure (2) Sepsis (3) UTI (urinary tract infection) (4) Diabetes mellitus (5) Vegetative state (6) Colostomy in place Respiratory: monitor respiratory rate, adjust FIO2, CXR Cardiac: continue to monitor HR/BP Renal: F/U I&O Infectious Disease: check cultures Gastrointestinal: continue feedings/current rate Endocrine: monitor blood sugar Hematologic: monitor H/H Neurologic: PRN Ativan Affect: PRN ativan Notes Reviewed: pharmacist assistant Discussed with: nurses, consultants Critical Care - Objective Last 24 Hour Vital Signs Date Time Temp Pulse Resp B/P (MAP) Pulse Ox O2 Delivery O2 Flow Rate FiO2 07/26/18 09:53 124 20 100 Mechanical Ventilator 30 07/26/18 09:41 124 16 100 Mechanical Ventilator 30 07/26/18 09:41 30 07/26/18 08:00 30 07/26/18 08:00 124 07/26/18 08:00 100.1 126 19 103/56 (72) 100 100.1 07/26/18 05:06 120 16 30 07/26/18 04:00 Mechanical Ventilator 07/26/18 04:00 99.0 121 18 109/78 (88) 100 99.0 07/26/18 04:00 30 07/26/18 03:33 121 07/26/18 03:12 122 17 30 07/26/18 01:11 122 17 30 07/26/18 00:00 30 07/26/18 00:00 98.9 122 17 105/67 (80) 100 98.9 07/26/18 00:00 Mechanical Ventilator 07/25/18 23:53 122 07/25/18 23:21 131 25 30 07/25/18 23:09 98.9 07/25/18 21:40 128 18 100 Mechanical Ventilator 30 07/25/18 21:24 30 07/25/18 21:24 131 18 100 Mechanical Ventilator 30 07/25/18 20:34 128 18 30 07/25/18 20:29 102.1 07/25/18 20:26 137 07/25/18 20:00 30 07/25/18 20:00 Mechanical Ventilator 07/25/18 20:00 102.1 138 24 101/75 (84) 99 102.1 10/4/18 19:17 137 20 30 07/25/18 17:02 134 22 30 07/25/18 16:19 135 07/25/18 16:00 Mechanical Ventilator 07/25/18 16:00 101.6 137 20 103/76 (85) 99 101.6 07/25/18 16:00 30 07/25/18 14:42 135 21 30 07/25/18 12:40 139 25 30 07/25/18 12:40 139 25 Mechanical Ventilator 15.0 30 07/25/18 12:00 30 07/25/18 12:00 Mechanical Ventilator 07/25/18 12:00 101.2 137 21 111/77 (88) 97 101.2 07/25/18 12:00 137 Status: obtunded Condition: critical HEENT: atraumatic Lungs: clear Heart: HR/BP stable, regular Abdomen: active bowel sounds Extremities: no C/C/E, edema Decubiti: location Micro: Microbiology Date/Time Source Procedure Growth Status 07/25/18 03:55 Blood Blood Culture - Preliminary NO GROWTH AFTER 24 HOURS Resulted 07/25/18 03:45 Blood Blood Culture - Preliminary NO GROWTH AFTER 24 HOURS Resulted Accucheck: 201 Critical Care - Subjective ROS Limited/Unobtainable: No EKG Rhythm: Sinus Rhythm FI02: 30 Vent Support Breath Rate: 16 Vent Support Mode: AC Vent Tidal Volume: 600 Sputum Amount: Small PEEP: 5.0 PIP: 34 Tube Feeding Amount: 60 I&O: Intake and Output 07/25/18 07/26/18 19:00 07:00 Intake Total 120 ml 1565 ml Output Total 950 ml 1400 ml Balance -830 ml 165 ml Intake Free Water 180 ml IV Total 665 ml Tube Feeding 120 ml 720 ml Output Urine Total 400 ml 1150 ml Stool Total 550 ml 250 ml CXR: no change Labs: Laboratory Tests Test 07/26/18 05:42 White Blood Count 17.3 K/UL (4.8-10.8) H Red Blood Count 4.74 M/UL (4.70-6.10) Hemoglobin 13.3 G/DL (14.2-18.0) L Hematocrit 42.1 % (42.0-52.0) Mean Corpuscular Volume 89 FL (80-99) Mean Corpuscular Hemoglobin 28.1 PG (27.0-31.0) Mean Corpuscular Hemoglobin Concent 31.6 G/DL (32.0-36.0) L Red Cell Distribution Width 14.3 % (11.6-14.8) Platelet Count 308 K/UL (150-450) Mean Platelet Volume 8.8 FL (6.5-10.1) Neutrophils (%) (Auto) 70.0 % (45.0-75.0) Lymphocytes (%) (Auto) 20.3 % (20.0-45.0) Monocytes (%) (Auto) 5.8 % (1.0-10.0) Eosinophils (%) (Auto) 2.9 % (0.0-3.0) Basophils (%) (Auto) 1.0 % (0.0-2.0) Sodium Level 142 MMOL/L (136-145) Potassium Level 4.3 MMOL/L (3.5-5.1) Chloride Level 108 MMOL/L (98-107) H Carbon Dioxide Level 23 MMOL/L (21-32) Anion Gap 11 mmol/L (5-15) Blood Urea Nitrogen 23 mg/dL (7-18) H Creatinine 1.2 MG/DL (0.55-1.30) Estimat Glomerular Filtration Rate > 60 mL/min (>60) Glucose Level 190 MG/DL (74-106) H Calcium Level 10.0 MG/DL (8.5-10.1) Total Bilirubin 0.8 MG/DL (0.2-1.0) Aspartate Amino Transf (AST/SGOT) 20 U/L (15-37) Alanine Aminotransferase (ALT/SGPT) 24 U/L (12-78) Alkaline Phosphatase 99 U/L (46-116) Pro-B-Type Natriuretic Peptide 47 pg/mL (0-125) Total Protein 7.6 G/DL (6.4-8.2) Albumin 2.3 G/DL (3.4-5.0) L Globulin 5.3 g/dL Albumin/Globulin Ratio 0.4 (1.0-2.7) L Nico Goetz MD Jul 26, 2018 11:30
[2018-07-26 12:00] VITALS: BP 108/66
--- NOTE | 2018-07-26 12:31 | Infectious Diseases Prog Note ---
Assessment/Plan Assessment/Plan Assessment: Severe sepsis bacteremia 07/20 Bcx 2/ CONS; 07/21 10/25 CoNS ; 07/22 :neg , 07/25 : NTD UTI 07/23 UCx : 10k PSA probable PNA -u/a wbc 30-40, nit neg, leuk +2; ucx 10-20k PsA (R CIpro/levo, otherwise S) -sp cx ABC (I Tygecicline), CRE K,PNA -07/23 CXR : Improvement of persistent left pleural effusion and retrocardiac consolidation, over one day -CXR: Small left pleural effusion, not significantly changed. Unchanged subsegmental atelectasis versus infiltrate in the left lung base. -2d echo: no vegetations Fever, improving Leukocytosis, improving DIVYA, improving Hx of UTI -04/2018 ucx >100k E. aerogenes (S cefepime, cipro/levo; R Zosyn) Hx of Bacteremia 04/2018 (PICC line infection, presumed endocarditis) -BCX 01/23 E. aerogenes, prob Amp C (S cefepime, cipro/levo; R Zosyn), P. 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 Plan: - Cont Tygacil d# 2 / ( Coverage of [facility] , as Avycaz not available ) - Cont Daptomycind# 3 ( AB Rx d# 04/30 )for gram positive bacteremia pending repeat cultures and to minimize nephrotoxicity - Cont IV Colistin and add INH colistin d# 3 / for MDR ABC and CRE K.pna in sputum cx empiric IV Vancomycin # 5 and Merrem d# 3 -07/20 SP Cefepime x1 -06/30 SP IV Vancomycin #42 -05/30 SP Ertapenem #14 -05/17/18 SP Zosyn #4 -f/u Bcx x2 -Monitor CBC/CMP, temperatures -trach/peg care -wound care/prevention per hospital care asked micro to check susceptibility for UCx : PSA to colistin Subjective Allergies: Coded Allergies: AZTREONAM (Verified Allergy, Unknown, 05/13/18) Subjective wbc improved today Objective Vital Signs Last 24 Hour Vital Signs Date Time Temp Pulse Resp B/P (MAP) Pulse Ox O2 Delivery O2 Flow Rate FiO2 07/26/18 12:12 102.4 07/26/18 09:53 124 20 100 Mechanical Ventilator 30 07/26/18 09:41 124 16 100 Mechanical Ventilator 30 07/26/18 09:41 30 07/26/18 08:00 30 07/26/18 08:00 124 07/26/18 08:00 Mechanical Ventilator 07/26/18 08:00 100.1 126 19 103/56 (72) 100 100.1 07/26/18 05:06 120 16 30 07/26/18 04:00 Mechanical Ventilator 07/26/18 04:00 99.0 121 18 109/78 (88) 100 99.0 07/26/18 04:00 30 07/26/18 03:33 121 07/26/18 03:12 122 17 30 07/26/18 01:11 122 17 30 07/26/18 00:00 30 07/26/18 00:00 98.9 122 17 105/67 (80) 100 98.9 07/26/18 00:00 Mechanical Ventilator 07/25/18 23:53 122 07/25/18 23:21 131 25 30 07/25/18 23:09 98.9 07/25/18 21:40 128 18 100 Mechanical Ventilator 30 07/25/18 21:24 30 07/25/18 21:24 131 18 100 Mechanical Ventilator 30 07/25/18 20:34 128 18 30 07/25/18 20:29 102.1 07/25/18 20:26 137 07/25/18 20:00 30 07/25/18 20:00 Mechanical Ventilator 07/25/18 20:00 102.1 138 24 101/75 (84) 99 102.1 07/25/18 19:17 137 20 30 07/25/18 17:02 134 22 30 07/25/18 16:19 135 07/25/18 16:00 Mechanical Ventilator 07/25/18 16:00 101.6 137 20 103/76 (85) 99 101.6 07/25/18 16:00 30 07/25/18 14:42 135 21 30 07/25/18 12:40 139 25 30 10/4/18 12:40 139 25 Mechanical Ventilator 15.0 30 Height (Feet): 5 Height (Inches): 8.00 Weight (Pounds): 163 HEENT: anicteric Respiratory/Chest: lungs clear Cardiovascular: regularly irregular Abdomen: no mass Microbiology Date/Time Source Procedure Growth Status 07/25/18 03:55 Blood Blood Culture - Preliminary NO GROWTH AFTER 24 HOURS Resulted 07/25/18 03:45 Blood Blood Culture - Preliminary NO GROWTH AFTER 24 HOURS Resulted Laboratory Tests Test 07/26/18 05:42 White Blood Count 17.3 K/UL (4.8-10.8) H Red Blood Count 4.74 M/UL (4.70-6.10) Hemoglobin 13.3 G/DL (14.2-18.0) L Hematocrit 42.1 % (42.0-52.0) Mean Corpuscular Volume 89 FL (80-99) Mean Corpuscular Hemoglobin 28.1 PG (27.0-31.0) Mean Corpuscular Hemoglobin Concent 31.6 G/DL (32.0-36.0) L Red Cell Distribution Width 14.3 % (11.6-14.8) Platelet Count 308 K/UL (150-450) Mean Platelet Volume 8.8 FL (6.5-10.1) Neutrophils (%) (Auto) 70.0 % (45.0-75.0) Lymphocytes (%) (Auto) 20.3 % (20.0-45.0) Monocytes (%) (Auto) 5.8 % (1.0-10.0) Eosinophils (%) (Auto) 2.9 % (0.0-3.0) Basophils (%) (Auto) 1.0 % (0.0-2.0) Sodium Level 142 MMOL/L (136-145) Potassium Level 4.3 MMOL/L (3.5-5.1) Chloride Level 108 MMOL/L (98-107) H Carbon Dioxide Level 23 MMOL/L (21-32) Anion Gap 11 mmol/L (5-15) Blood Urea Nitrogen 23 mg/dL (7-18) H Creatinine 1.2 MG/DL (0.55-1.30) Estimat Glomerular Filtration Rate > 60 mL/min (>60) Glucose Level 190 MG/DL (74-106) H Calcium Level 10.0 MG/DL (8.5-10.1) Total Bilirubin 0.8 MG/DL (0.2-1.0) Aspartate Amino Transf (AST/SGOT) 20 U/L (15-37) Alanine Aminotransferase (ALT/SGPT) 24 U/L (12-78) Alkaline Phosphatase 99 U/L (46-116) Pro-B-Type Natriuretic Peptide 47 pg/mL (0-125) Total Protein 7.6 G/DL (6.4-8.2) Albumin 2.3 G/DL (3.4-5.0) L Globulin 5.3 g/dL Albumin/Globulin Ratio 0.4 (1.0-2.7) L Current Medications Medications (Trade) Dose Ordered Sig/Va Route PRN Reason Start Time Stop Time Status Last Admin Dose Admin Acetaminophen (Tylenol) 650 mg Q4H PRN ORAL FEVER 07/20/18 15:05 08/19/18 15:04 07/26/18 12:12 Ascorbic Acid (Vitamin C) 500 mg DAILY GT 07/22/18 09:00 08/21/18 08:59 07/26/18 09:02 Baclofen (Lioresal) 10 mg THREE TIMES A DAY GT 07/20/18 18:00 08/19/18 17:59 07/26/18 09:02 Colistimethate Sodium (Colistin *inhalation use only*) 150 mg Q12HR@10,22 INH 07/24/18 22:00 07/31/18 21:59 07/25/18 21:26 Colistimethate Sodium (Colistin) 150 mg EVERY 12 HOURS IVP 07/24/18 21:00 07/31/18 20:59 07/26/18 09:41 Daptomycin 450 mg/ Sodium Chloride 55 ml @ 100 mls/hr Q24H IV 07/25/18 20:00 08/01/18 19:59 07/25/18 20:00 Dextrose (Dextrose 50%) 25 ml Q30M PRN IV Hypoglycemia 07/24/18 15:15 08/23/18 15:14 Dextrose (Dextrose 50%) 50 ml Q30M PRN IV Hypoglycemia 07/24/18 15:15 08/23/18 15:14 Heparin Sodium (Porcine) (Heparin 5000 units/ml) 5,000 units EVERY 12 HOURS SUBQ 07/20/18 21:00 08/19/18 20:59 07/26/18 09:03 Insulin Aspart (NovoLOG) Q6HR SUBQ 07/21/18 00:00 08/19/18 16:29 07/26/18 05:23 Levetiracetam (Keppra) 1,000 mg BID GT 07/20/18 18:00 08/19/18 17:59 07/26/18 09:02 Lorazepam (Ativan 2mg/ml 1ml) 2 mg Q2H PRN IV For Anxiety 07/20/18 15:11 07/27/18 15:10 Morphine Sulfate (Morphine Sulfate) 4 mg Q4H PRN IVP Severe Pain (Pain Scale 7-10) 07/20/18 15:08 07/27/18 15:07 Ondansetron HCl (Zofran) 4 mg Q6H PRN IVP Nausea & Vomiting 07/20/18 15:05 08/19/18 15:04 Pantoprazole (Protonix) 40 mg DAILY IV 07/21/18 09:00 08/20/18 08:59 07/26/18 09:03 Polyethylene Glycol (Miralax) 17 gm DAILYPRN PRN GT Constipation 07/20/18 15:45 08/19/18 15:04 Potassium Chloride 40 meq/ Dextrose/Sodium Chloride 1,020 ml @ 50 mls/hr [id number] IV 07/23/18 13:30 08/22/18 13:29 07/25/18 20:53 Sitagliptin Phosphate (Januvia) 50 mg DAILY GT 07/27/18 09:00 08/20/18 08:59 Tigecycline 50 mg/ Dextrose 110 ml @ 220 mls/hr Q12H IVPB 07/26/18 04:00 08/02/18 03:59 07/26/18 04:15 Vitamin A/Vitamin D (A & D Oint) 1 applic Q12H TOPIC 07/20/18 21:00 08/19/18 20:59 07/26/18 09:03 Christian Manriquez MD Jul 26, 2018 12:31
--- NOTE | 2018-07-26 14:44 | General Progress Note ---
Assessment/Plan Assessment/Plan # Leukocytosis - sepsis with elevated temperature of 103 degrees Fahrenheit on admission. Had uti v bacteremia (CoNS) on abx, has improved, had infection on prior admission. Still fever persists on abx --> Pt on antibiotics, has received colistin and daptomycin --> Appreciate Infectious Disease recs --> 2D echo per ID performed on 05/22: No discrete vegetations seen, however SBE may not be excluded by transthoracic 2-D echo --> wbc elevation unlikely related to bone marrow process # Anemia of chronic disease. No hemolysis, peripheral smear reviewed, ferritin was elevated. --> Continue to closely monitor --> Hgb goal >7 --> CURRENT Hgb 13.1--> hemoconcentration --> retic 1371, % sat 24% # Acute kidney injury on ivf --> Currently on IV fluids, IV bolus given to see if the patient responds along with IV pressor as needed. --> Closely monitor with Nephrology team. # Septic shock, use antibiotic per ID services. --> potential uti, on abx and bacteremia on abx # Respiratory failure, status post tracheostomy, on mechanical ventilation per Dr. Goetz --> Remains on vent/trach --> 06/03 CXR: Unchanged left pleural effusion versus scarring, over 4 days # Hypercalcemia. PTH is 37 and Ca++ is elevated --> monitor for improvement The time the note was entered does not necessarily correspond to the time the patient was seen. Greatly appreciate consultation! Subjective Constitutional: Denies: no symptoms, chills, diaphoresis, fever, malaise, weakness, other HEENT: Denies: no symptoms, eye pain, blurred vision, tearing, double vision, ear pain, ear discharge, nose pain, nose congestion, throat pain, throat swelling, mouth pain, mouth swelling, other Cardiovascular: Denies: no symptoms, chest pain, edema, irregular heart rate, lightheadedness, palpitations, syncope, other Respiratory: Denies: no symptoms, cough, orthopnea, shortness of breath, SOB with excertion, SOB at rest, sputum, stridor, wheezing, other Gastrointestinal/Abdominal: Denies: no symptoms, abdomen distended, abdominal pain, black stools, tarry stools, blood in stool, constipated, diarrhea, difficulty swallowing, nausea, poor appetite, poor fluid intake, rectal bleeding , vomiting, other Genitourinary: Denies: no symptoms, burning, discharge, frequency, flank pain, hematuria, incontinence, pain, urgency, other Neurologic/Psychiatric: Denies: no symptoms, anxiety, depressed, emotional problems, headache, numbness, paresthesia, pre-existing deficit, seizure, tingling, tremors, weakness, other Endocrine: Denies: no symptoms, excessive sweating, flushing, intolerance to cold, intolerance to heat, increased hunger, increased thirst, increased urine, unexplained weight gain, unexplained weight loss, other Hematologic/Lymphatic: Denies: no symptoms, anemia, easy bleeding, easy bruising, other Allergies: Coded Allergies: AZTREONAM (Verified Allergy, Unknown, 05/13/18) Subjective remains febrile, remains tachycardic, is on abx at this time, vent/trach Objective Last 24 Hour Vital Signs Date Time Temp Pulse Resp B/P (MAP) Pulse Ox O2 Delivery O2 Flow Rate FiO2 07/26/18 12:12 102.4 07/26/18 12:00 30 07/26/18 12:00 102.4 126 19 108/66 (80) 100 102.4 07/26/18 12:00 Mechanical Ventilator 07/26/18 12:00 127 07/26/18 10:33 124 21 30 07/26/18 09:53 124 20 100 Mechanical Ventilator 30 07/26/18 09:41 124 16 100 Mechanical Ventilator 30 07/26/18 09:41 30 07/26/18 09:03 124 17 30 07/26/18 08:00 30 07/26/18 08:00 124 07/26/18 08:00 Mechanical Ventilator 07/26/18 08:00 100.1 126 19 103/56 (72) 100 100.1 07/26/18 07:15 121 20 30 07/26/18 05:06 120 16 30 07/26/18 04:00 Mechanical Ventilator 07/26/18 04:00 99.0 121 18 109/78 (88) 100 99.0 07/26/18 04:00 30 07/26/18 03:33 121 07/26/18 03:12 122 17 30 07/26/18 01:11 122 17 30 07/26/18 00:00 30 07/26/18 00:00 98.9 122 17 105/67 (80) 100 98.9 07/26/18 00:00 Mechanical Ventilator 07/25/18 23:53 122 07/25/18 23:21 131 25 30 07/25/18 23:09 98.9 07/25/18 21:40 128 18 100 Mechanical Ventilator 30 07/25/18 21:24 30 07/25/18 21:24 131 18 100 Mechanical Ventilator 30 07/25/18 20:34 128 18 30 07/25/18 20:29 102.1 07/25/18 20:26 137 07/25/18 20:00 30 07/25/18 20:00 Mechanical Ventilator 07/25/18 20:00 102.1 138 24 101/75 (84) 99 102.1 07/25/18 19:17 137 20 30 07/25/18 17:02 134 22 30 07/25/18 16:19 135 07/25/18 16:00 Mechanical Ventilator 07/25/18 16:00 101.6 137 20 103/76 (85) 99 101.6 07/25/18 16:00 30 Intake and Output 07/25/18 07/26/18 19:00 07:00 Intake Total 120 ml 1565 ml Output Total 950 ml 1400 ml Balance -830 ml 165 ml Intake Free Water 180 ml IV Total 665 ml Tube Feeding 120 ml 720 ml Output Urine Total 400 ml 1150 ml Stool Total 550 ml 250 ml Laboratory Tests 07/26/18 05:42: White Blood Count 17.3H, Red Blood Count 4.74, Hemoglobin 13.3L, Hematocrit 42.1 , Mean Corpuscular Volume 89, Mean Corpuscular Hemoglobin 28.1, Mean Corpuscular Hemoglobin Concent 31.6L, Red Cell Distribution Width 14.3, Platelet Count 308, Mean Platelet Volume 8.8, Neutrophils (%) (Auto) 70.0, Lymphocytes (%) (Auto) 20.3, Monocytes (%) (Auto) 5.8, Eosinophils (%) (Auto) 2.9, Basophils (%) (Auto) 1.0, Sodium Level 142, Potassium Level 4.3, Chloride Level 108H, Carbon Dioxide Level 23, Anion Gap 11, Blood Urea Nitrogen 23H, Creatinine 1.2, Estimat Glomerular Filtration Rate > 60, Glucose Level 190H, Calcium Level 10.0, Total Bilirubin 0.8, Aspartate Amino Transf (AST/SGOT) 20, Alanine Aminotransferase (ALT/SGPT) 24, Alkaline Phosphatase 99, Pro-B-Type Natriuretic Peptide 47, Total Protein 7.6, Albumin 2.3L, Globulin 5.3, Albumin/ Globulin Ratio 0.4L Height (Feet): 5 Height (Inches): 8.00 Weight (Pounds): 163 General Appearance: alert EENT: TMs normal Neck: normal alignment Cardiovascular: no gallop/murmur Respiratory/Chest: lungs clear, other - trach/vent Extremities: normal range of motion Edema: 1+ Leg (L), 1+ Leg (R) Neurologic: responsive Skin: warm/dry Jimmy Fleming MD Jul 26, 2018 14:44
[2018-07-26 16:00] VITALS: BP_SYST 102; BP_SYST 103; BP_DIAS 70; BP_DIAS 76
[2018-07-26 20:00] VITALS: BP 103/67
[2018-07-26] MEDS: Potassium Chloride 40 MEQ in D5 1/4NS 1000ml 1,000 ML IV SCH (21:16)
[2018-07-26] MEDS: DAPTOmycin 450 MG in NS 55 ML IV SCH (21:18)
[2018-07-26] MEDS: Colistin for inhalation INH SCH ×2 (21:22→21:23)
[2018-07-26] MEDS ORDERED: Colistin 150mg vial IVP SCH (23:00)
[2018-07-27] VITALS: BP 106/68
[2018-07-27] MEDS: Tigecycline 50mg in D5W 110ml IVPB SCH ×2 (03:14→16:27)
[2018-07-27 04:00] VITALS: BP 107/67
[2018-07-27 04:59] LABS: BASOPHILS % (AUTO) 1.2 % (0.0-2.0); EOSINOPHILS % (AUTO) 5.3 % (0.0-3.0); HEMATOCRIT 36.3 % (42.0-52.0); HEMOGLOBIN 11.8 G/DL (14.2-18.0); LYMPHOCYTES % (AUTO) 19.8 % (20.0-45.0); MEAN CORPUSCULAR VOLUME 89 FL (80-99); MONOCYTES % (AUTO) 4.5 % (1.0-10.0); NEUTROPHILS % (AUTO) 69.1 % (45.0-75.0); PLATELET COUNT 339 K/UL (150-450); RED BLOOD COUNT 4.07 M/UL (4.70-6.10); RED CELL DISTRIBUTION WIDTH 14.7 % (11.6-14.8); WHITE BLOOD COUNT 13.5 K/UL (4.8-10.8)
[2018-07-27] MEDS: NovoLOG Insulin Flexpen SUBQ SCH ×4 (05:05→23:26)
--- NOTE | 2018-07-27 05:30 | Progress Note ---
DATE: 07/26/2018 SUBJECTIVE: The patient remained unchanged, eyes are closed, has not responded to audio or visual stimuli and responds to pain by extension. PHYSICAL EXAMINATION: VITAL SIGNS: Blood pressure is 103/67, his pulse is , respirations of 18, and temperature of 98.6. HEENT: Eyes were normal. ENT, mucous membranes were moist and intact. NECK: Supple with no JVD without lymph nodes. Tracheostomy site is clean. LUNGS: Clear without rhonchi, rales, or wheezing. Secretions are small, thin, and hodgson. HEART: Normal sounds with regular beats. There is tachycardia at rest. Sinus tachycardia on monitor. ABDOMEN: Soft and nontender with normal bowel sounds. Gastrostomy site is clean. EXTREMITIES: Warm without cyanosis, clubbing, or edema. LABORATORY AND DIAGNOSTIC DATA: His hemoglobin is 13.3, hematocrit 42.1 with MCV of 89, WBC of 17.3, and platelets of 308,000. WBC was 21.5 yesterday. His BUN and creatinine are 23 and 1.2 respectively. His sodium is 142, potassium 4.3, chloride 108, and CO2 is 23. His creatinine was 1.3 yesterday. SGOT, SGPT, alkaline phosphatase are normal. Albumin is 2.3 and total protein is 7.6. Chest x-ray today showed new onset atelectasis on the right and left pleural effusion. unchanged. IMPRESSION: The patient has positive antibody and he daptomycin and colistin. His WBC, BUN, and creatinine have significantly improved, but not the tachycardia as yet. Repeat laboratory tests will be done in the a.m. report of Infectious Disease and Pulmonology have been reviewed in detail. Sariah Bhat M.D. DR: MEGAN JOB#: [id number] CC:
[2018-07-27 05:41] LABS: ALBUMIN 2.1 G/DL (3.4-5.0); ALBUMIN/GLOBULIN RATIO 0.4 (1.0-2.7); ALKALINE PHOSPHATASE 105 U/L (46-116); ANION GAP 10 mmol/L (5-15); BILIRUBIN,TOTAL 0.4 MG/DL (0.2-1.0); BLOOD UREA NITROGEN 26 mg/dL (7-18); CALCIUM 9.6 MG/DL (8.5-10.1); CARBON DIOXIDE 21 MMOL/L (21-32); CHLORIDE 106 MMOL/L (98-107); CREATININE 1.1 MG/DL (0.55-1.30); POTASSIUM 4.1 MMOL/L (3.5-5.1); SODIUM 137 MMOL/L (136-145)
[2018-07-27 05:45] LABS: PHOSPHORUS 2.7 MG/DL (2.5-4.9)
[2018-07-27 05:52] LABS: ALANINE AMINOTRANSFERASE 23 U/L (12-78); ASPARTATE AMINO TRANSFERASE 41 U/L (15-37)
[2018-07-27 08:00] VITALS: BP 97/73
[2018-07-27] MEDS: Heparin 5000 units/ml inj SUBQ SCH ×2 (09:01→20:18)
[2018-07-27] MEDS: Pantoprazole Inj IV SCH (09:02)
[2018-07-27] MEDS: levETIRAcetam 500mg/5ml Liquid GT SCH ×2 (09:02→17:10)
[2018-07-27] MEDS: Ascorbic Acid 500mg tab GT SCH (09:03)
[2018-07-27] MEDS: sitaGLIPtin 50mg tab GT SCH (09:03)
[2018-07-27] MEDS: Vitamin A&D Oint 2oz Tube TOPIC SCH ×2 (09:04→20:22)
[2018-07-27] MEDS: Colistin 150mg vial IVP SCH ×2 (09:11→20:17)
[2018-07-27] MEDS: Colistin for inhalation INH SCH ×2 (09:47→22:24)
--- NOTE | 2018-07-27 10:30 | Pulmonolgy Critical Care Note ---
Critical Care - Asmt/Plan Problems: (1) Acute on chronic respiratory failure (2) Sepsis (3) UTI (urinary tract infection) (4) Diabetes mellitus (5) Vegetative state (6) Colostomy in place Respiratory: monitor respiratory rate, adjust FIO2, CXR Cardiac: continue pressors, continue to monitor HR/BP Renal: F/U I&O Infectious Disease: check cultures Gastrointestinal: hold feedings Endocrine: monitor blood sugar, check HgA1C Hematologic: monitor H/H, transfuse if hgb<8.5 Neurologic: PRN Ativan, keep patient comfortable Affect: PRN ativan Prophylaxis: Protonix Notes Reviewed: project manager finance, cardio Discussed with: nurses, consultants, major case detectivesystems development manager - Objective Last 24 Hour Vital Signs Date Time Temp Pulse Resp B/P (MAP) Pulse Ox O2 Delivery O2 Flow Rate FiO2 07/27/18 09:58 115 20 100 Mechanical Ventilator 30 07/27/18 09:48 115 16 99 Mechanical Ventilator 30 07/27/18 09:48 30 07/27/18 09:20 108 18 30 07/27/18 08:00 30 07/27/18 08:00 98.1 114 18 97/73 (81) 100 98.1 07/27/18 07:08 115 18 30 07/27/18 04:58 110 17 30 07/27/18 04:00 99.1 111 18 107/67 (80) 100 99.1 07/27/18 04:00 30 07/27/18 04:00 Mechanical Ventilator 07/27/18 04:00 110 07/27/18 03:01 108 17 30 07/27/18 01:07 110 16 30 07/27/18 00:00 Mechanical Ventilator 07/27/18 00:00 98.9 111 17 106/68 (81) 99 98.9 07/27/18 00:00 30 07/27/18 00:00 109 07/26/18 22:45 103 16 30 07/26/18 21:44 102 20 100 Mechanical Ventilator 30 07/26/18 21:25 30 07/26/18 21:24 104 18 30 07/26/18 21:23 104 17 100 Mechanical Ventilator 30 07/26/18 20:00 30 07/26/18 20:00 98.6 103 18 103/67 (79) 99 98.6 10/5/18 20:00 Mechanical Ventilator 07/26/18 19:33 105 07/26/18 19:25 106 18 30 07/26/18 17:41 110 17 30 07/26/18 16:43 99.1 07/26/18 16:13 101.6 07/26/18 16:00 30 07/26/18 16:00 101.8 120 17 102/70 (81) 100 101.8 07/26/18 16:00 Mechanical Ventilator 07/26/18 16:00 123 07/26/18 16:00 101.6 137 20 103/76 (85) 99 101.6 07/26/18 14:36 124 20 30 07/26/18 13:23 125 17 30 07/26/18 12:12 102.4 07/26/18 12:00 30 07/26/18 12:00 102.4 126 19 108/66 (80) 100 102.4 07/26/18 12:00 Mechanical Ventilator 07/26/18 12:00 127 07/26/18 10:33 124 21 30 Status: awake Condition: critical Neck: full ROM Lungs: chest wall tender Heart: HR/BP stable Abdomen: soft, active bowel sounds Extremities: edema Decubiti: stage Micro: Microbiology Date/Time Source Procedure Growth Status 07/25/18 03:55 Blood Blood Culture - Preliminary NO GROWTH AFTER 24 HOURS Resulted 07/25/18 03:45 Blood Blood Culture - Preliminary NO GROWTH AFTER 24 HOURS Resulted Accucheck: 203 Critical Care - Subjective ROS Limited/Unobtainable: Yes Condition: critical EKG Rhythm: Sinus Rhythm FI02: 30 Vent Support Breath Rate: 16 Vent Support Mode: AC Vent Tidal Volume: 600 Sputum Amount: Small PEEP: 5.0 PIP: 27 Tube Feeding Amount: 60 I&O: Intake and Output 07/26/18 07/27/18 19:00 07:00 Intake Total 1550 ml 1472.5 ml Output Total 750 ml 1350 ml Balance 800 ml 122.5 ml Intake Free Water 100 ml IV Total 630 ml 712.5 ml Tube Feeding 720 ml 660 ml Other 200 ml Output Urine Total 500 ml 1000 ml Stool Total 250 ml 350 ml CXR: no change Labs: Laboratory Tests Test 07/27/18 03:14 07/27/18 03:45 07/27/18 09:00 Sodium Level 137 MMOL/L (136-145) Potassium Level 4.1 MMOL/L (3.5-5.1) Chloride Level 106 MMOL/L (98-107) Carbon Dioxide Level 21 MMOL/L (21-32) Anion Gap 10 mmol/L (5-15) Blood Urea Nitrogen 26 mg/dL (7-18) H Creatinine 1.1 MG/DL (0.55-1.30) Estimat Glomerular Filtration Rate > 60 mL/min (>60) Glucose Level 204 MG/DL (74-106) H Calcium Level 9.6 MG/DL (8.5-10.1) Total Bilirubin 0.4 MG/DL (0.2-1.0) Aspartate Amino Transf (AST/SGOT) 41 U/L (15-37) H Alanine Aminotransferase (ALT/SGPT) 23 U/L (12-78) Alkaline Phosphatase 105 U/L (46-116) Total Protein 7.1 G/DL (6.4-8.2) Albumin 2.1 G/DL (3.4-5.0) L Globulin 5.0 g/dL Albumin/Globulin Ratio 0.4 (1.0-2.7) L White Blood Count 13.5 K/UL (4.8-10.8) H Red Blood Count 4.07 M/UL (4.70-6.10) L Hemoglobin 11.8 G/DL (14.2-18.0) L Hematocrit 36.3 % (42.0-52.0) L Mean Corpuscular Volume 89 FL (80-99) Mean Corpuscular Hemoglobin 28.9 PG (27.0-31.0) Mean Corpuscular Hemoglobin Concent 32.5 G/DL (32.0-36.0) Red Cell Distribution Width 14.7 % (11.6-14.8) Platelet Count 339 K/UL (150-450) Mean Platelet Volume 9.5 FL (6.5-10.1) Neutrophils (%) (Auto) 69.1 % (45.0-75.0) Lymphocytes (%) (Auto) 19.8 % (20.0-45.0) L Monocytes (%) (Auto) 4.5 % (1.0-10.0) Eosinophils (%) (Auto) 5.3 % (0.0-3.0) H Basophils (%) (Auto) 1.2 % (0.0-2.0) Erythrocyte Sedimentation Rate 20 MM/HR (0-20) Phosphorus Level 2.7 MG/DL (2.5-4.9) Magnesium Level 1.7 MG/DL (1.8-2.4) L Pro-B-Type Natriuretic Peptide 14 pg/mL (0-125) Miscellaneous Test 2 Pending Nico Goetz MD Jul 27, 2018 10:30
[2018-07-27 12:00] VITALS: BP 91/60
[2018-07-27] MEDS ORDERED: NS 275ml ONE (15:03)
[2018-07-27] MEDS ORDERED: Tubing IV Secondary IV ONE (15:03)
[2018-07-27 16:00] VITALS: BP 108/65
--- NOTE | 2018-07-27 17:20 | General Progress Note ---
Assessment/Plan Status: stable Assessment/Plan # Leukocytosis - sepsis with elevated temperature of 103 degrees Fahrenheit on admission. Had uti v bacteremia (CoNS) on abx, has improved, had infection on prior admission. Still fever persists on abx --> Pt on antibiotics, has received colistin and daptomycin --> Appreciate Infectious Disease recs --> 2D echo per ID performed on 05/22: No discrete vegetations seen, however SBE may not be excluded by transthoracic 2-D echo --> wbc elevation unlikely related to bone marrow process --> Currently, WBC has been improving. # Anemia of chronic disease. No hemolysis, peripheral smear reviewed, ferritin was elevated. --> Continue to closely monitor --> Hgb goal >7 --> CURRENT Hgb 13.1--> hemoconcentration --> retic 1371, % sat 24% # Acute kidney injury on ivf --> Currently on IV fluids, IV bolus given to see if the patient responds along with IV pressor as needed. --> Closely monitor with Nephrology team. # Septic shock, use antibiotic per ID services. --> potential uti, on abx and bacteremia on abx # Respiratory failure, status post tracheostomy, on mechanical ventilation per Dr. Goetz --> Remains on vent/trach --> 06/03 CXR: Unchanged left pleural effusion versus scarring, over 4 days # Hypercalcemia. PTH is 37 and Ca++ is elevated --> monitor for improvement The time the note was entered does not necessarily correspond to the time the patient was seen. Greatly appreciate consultation! Subjective Date patient seen: Jul 27, 2018 Hematologic/Lymphatic: Reports: anemia Allergies: Coded Allergies: AZTREONAM (Verified Allergy, Unknown, 05/13/18) Subjective WBC improving, is on abx. H/H stable. Objective Last 24 Hour Vital Signs Date Time Temp Pulse Resp B/P (MAP) Pulse Ox O2 Delivery O2 Flow Rate FiO2 07/27/18 16:39 Mechanical Ventilator 07/27/18 16:00 30 07/27/18 16:00 98.2 105 16 108/65 (79) 100 98.2 07/27/18 15:10 109 18 30 07/27/18 13:15 115 17 30 07/27/18 12:17 Mechanical Ventilator 07/27/18 12:00 97.3 107 18 91/60 (70) 99 97.3 07/27/18 12:00 30 07/27/18 11:35 110 07/27/18 10:58 111 18 30 07/27/18 09:58 115 20 100 Mechanical Ventilator 30 07/27/18 09:48 115 16 99 Mechanical Ventilator 30 07/27/18 09:48 30 07/27/18 09:20 108 18 30 07/27/18 08:00 30 07/27/18 08:00 Mechanical Ventilator 07/27/18 08:00 114 07/27/18 08:00 98.1 114 18 97/73 (81) 100 98.1 07/27/18 07:08 115 18 30 07/27/18 04:58 110 17 30 07/27/18 04:00 99.1 111 18 107/67 (80) 100 99.1 07/27/18 04:00 30 07/27/18 04:00 Mechanical Ventilator 07/27/18 04:00 110 07/27/18 03:01 108 17 30 07/27/18 01:07 110 16 30 07/27/18 00:00 Mechanical Ventilator 07/27/18 00:00 98.9 111 17 106/68 (81) 99 98.9 07/27/18 00:00 30 07/27/18 00:00 109 07/26/18 22:45 103 16 30 07/26/18 21:44 102 20 100 Mechanical Ventilator 30 07/26/18 21:25 30 07/26/18 21:24 104 18 30 07/26/18 21:23 104 17 100 Mechanical Ventilator 30 07/26/18 20:00 30 07/26/18 20:00 98.6 103 18 103/67 (79) 99 98.6 07/26/18 20:00 Mechanical Ventilator 07/26/18 19:33 105 07/26/18 19:25 106 18 30 07/26/18 17:41 110 17 30 Intake and Output 07/26/18 07/27/18 19:00 07:00 Intake Total 1550 ml 1582.5 ml Output Total 750 ml 1350 ml Balance 800 ml 232.5 ml Intake Free Water 100 ml IV Total 630 ml 762.5 ml Tube Feeding 720 ml 720 ml Other 200 ml Output Urine Total 500 ml 1000 ml Stool Total 250 ml 350 ml Laboratory Tests 07/27/18 03:14: Sodium Level 137, Potassium Level 4.1, Chloride Level 106, Carbon Dioxide Level 21, Anion Gap 10, Blood Urea Nitrogen 26H, Creatinine 1.1, Estimat Glomerular Filtration Rate > 60, Glucose Level 204H, Calcium Level 9.6, Total Bilirubin 0.4 , Aspartate Amino Transf (AST/SGOT) 41H, Alanine Aminotransferase (ALT/SGPT) 23 , Alkaline Phosphatase 105, Total Protein 7.1, Albumin 2.1L, Globulin 5.0, Albumin/Globulin Ratio 0.4L 07/27/18 03:45: White Blood Count 13.5H, Red Blood Count 4.07L, Hemoglobin 11.8L, Hematocrit 36.3L, Mean Corpuscular Volume 89, Mean Corpuscular Hemoglobin 28.9, Mean Corpuscular Hemoglobin Concent 32.5, Red Cell Distribution Width 14.7, Platelet Count 339, Mean Platelet Volume 9.5, Neutrophils (%) (Auto) 69.1, Lymphocytes (% ) (Auto) 19.8L, Monocytes (%) (Auto) 4.5, Eosinophils (%) (Auto) 5.3H, Basophils (%) (Auto) 1.2, Erythrocyte Sedimentation Rate 20, Phosphorus Level 2.7, Magnesium Level 1.7L, Pro-B-Type Natriuretic Peptide 14 07/27/18 09:00: Miscellaneous Test 2 [Pending] Height (Feet): 5 Height (Inches): 8.00 Weight (Pounds): 163 General Appearance: no apparent distress EENT: PERRL/EOMI Neck: normal alignment Cardiovascular: tachycardia Respiratory/Chest: no respiratory distress Abdomen: no mass Jimmy Fleming MD Jul 27, 2018 17:20
[2018-07-27] MEDS: Potassium Chloride 40 MEQ in D5 1/4NS 1000ml 1,000 ML IV SCH (18:04)
[2018-07-27 20:00] VITALS: BP 111/77
[2018-07-27] MEDS: DAPTOmycin 450 MG in NS 55 ML IV SCH (20:17)
[2018-07-28] VITALS: BP 100/75
[2018-07-28] MEDS: Tigecycline 50mg in D5W 110ml IVPB SCH ×2 (03:19→15:42)
[2018-07-28 04:00] VITALS: BP 110/70
[2018-07-28] MEDS: NovoLOG Insulin Flexpen SUBQ SCH ×5 (05:02→23:06)
[2018-07-28 06:40] LABS: BASOPHILS % (AUTO) 0.7 % (0.0-2.0); EOSINOPHILS % (AUTO) 5.8 % (0.0-3.0); HEMATOCRIT 36.8 % (42.0-52.0); HEMOGLOBIN 11.9 G/DL (14.2-18.0); LYMPHOCYTES % (AUTO) 21.3 % (20.0-45.0); MEAN CORPUSCULAR VOLUME 89 FL (80-99); MONOCYTES % (AUTO) 8.8 % (1.0-10.0); NEUTROPHILS % (AUTO) 63.4 % (45.0-75.0); PLATELET COUNT 332 K/UL (150-450); RED BLOOD COUNT 4.11 M/UL (4.70-6.10); RED CELL DISTRIBUTION WIDTH 14.4 % (11.6-14.8); WHITE BLOOD COUNT 12.4 K/UL (4.8-10.8)
[2018-07-28 07:25] LABS: ALANINE AMINOTRANSFERASE 22 U/L (12-78); ALBUMIN 2.2 G/DL (3.4-5.0); ALBUMIN/GLOBULIN RATIO 0.4 (1.0-2.7); ALKALINE PHOSPHATASE 108 U/L (46-116); ANION GAP 11 mmol/L (5-15); ASPARTATE AMINO TRANSFERASE 19 U/L (15-37); BILIRUBIN,TOTAL 0.4 MG/DL (0.2-1.0); BLOOD UREA NITROGEN 21 mg/dL (7-18); CALCIUM 9.9 MG/DL (8.5-10.1); CARBON DIOXIDE 21 MMOL/L (21-32); CHLORIDE 103 MMOL/L (98-107); PHOSPHORUS 2.6 MG/DL (2.5-4.9); POTASSIUM 4.4 MMOL/L (3.5-5.1); SODIUM 135 MMOL/L (136-145)
[2018-07-28 08:00] VITALS: BP 115/79
[2018-07-28] MEDS: sitaGLIPtin 50mg tab GT SCH (10:08)
[2018-07-28] MEDS: Ascorbic Acid 500mg tab GT SCH (10:08)
[2018-07-28] MEDS: levETIRAcetam 500mg/5ml Liquid GT SCH ×3 (10:08→17:16)
[2018-07-28] MEDS: Pantoprazole Inj IV SCH (10:09)
[2018-07-28] MEDS: Heparin 5000 units/ml inj SUBQ SCH ×2 (10:09→20:13)
[2018-07-28] MEDS: Vitamin A&D Oint 2oz Tube TOPIC SCH ×2 (10:12→20:11)
[2018-07-28] MEDS: Colistin 150mg vial IVP SCH ×2 (11:09→20:12)
[2018-07-28 12:00] VITALS: BP 104/64
--- NOTE | 2018-07-28 12:02 | Diagnostic Imaging Report ---
Chest PA and lateral views INDICATION: Pneumothorax COMPARISON: Radiograph dated 07/26/18 FINDINGS: PA and lateral views of the chest are obtained. Stable tracheostomy. Stable opacity in the left lower lung zone. Stable atelectatic band in the right mid to lower lung zone. The cardiomediastinal silhouette is within normal limits. No pleural effusions. Bony elements are within normal limits. IMPRESSION: No unchanged opacity in the left lower lung zone with stable atelectatic bands in the right mid to lower lung zone. Unchanged tracheostomy. No pneumothorax.
--- NOTE | 2018-07-28 14:00 | Progress Note ---
DATE: 07/27/2018 SUBJECTIVE: The patient is not awake, not alert, not afebrile, but remained tachycardic. PHYSICAL EXAMINATION: VITAL SIGNS: Blood pressure 108/65, his pulse is 115, respirations of 16, and temperature 98.2. HEENT: Eyes were normal. ENT, mucous membranes were moist and intact. NECK: Tongue is protruded through the oral cavity and intermittent . HEART: Normal sounds with regular beat. There is no S3, S4, or pericardial rub. ABDOMEN: Soft and nontender with normal bowel sounds. Gastrostomy site is clean. EXTREMITIES: Warm without cyanosis, clubbing, or edema. LABORATORY AND DIAGNOSTIC DATA: His hemoglobin is 11.8, hematocrit 36.3 with MCV of 89, WBC of 13.5, and platelets of 339,000. His WBC was 17.3 yesterday and 21.5 . His BUN and creatinine 25 and 1.1 respectively. His sodium is 137, potassium 4.1, chloride 106, CO2 is 21. His phosphorus is 2.7 and his magnesium is 1.7. His proBNP is 14. His ESR is 20. IMPRESSION: The patient is on triple antibiotics that include penicillin 60 mg q.12 h., daptomycin 450 mg q.24 h., and colistin 150 mg q.12 h. With this regimen, the patient's and WBC dramatically declined. Repeat laboratory tests will be done in the a.m. Repeat chest x-ray will be done in the a.m. as well. Sariah Bhat M.D. DR: KETAN JOB#: [id number] CC:
[2018-07-28] MEDS ORDERED: NS 275ml ONE (15:41)
[2018-07-28] MEDS ORDERED: Tubing IV Secondary IV ONE (15:41)
[2018-07-28] MEDS: Potassium Chloride 40 MEQ in D5 1/4NS 1000ml 1,000 ML IV SCH (15:42)
[2018-07-28 16:00] VITALS: BP 114/74
[2018-07-28] MEDS: Colistin for inhalation INH SCH ×2 (16:07→17:33)
--- NOTE | 2018-07-28 19:29 | General Progress Note ---
Assessment/Plan Status: stable Assessment/Plan # Leukocytosis - sepsis with elevated temperature of 103 degrees Fahrenheit on admission. Had uti v bacteremia (CoNS) on abx, has improved, had infection on prior admission. Still fever persists on abx --> Pt on antibiotics, has received colistin and daptomycin --> Appreciate Infectious Disease recs --> 2D echo per ID performed on 05/22: No discrete vegetations seen, however SBE may not be excluded by transthoracic 2-D echo --> wbc elevation unlikely related to bone marrow process --> Currently, WBC at 12.4, has been improving. Afebrile. # Anemia of chronic disease. No hemolysis, peripheral smear reviewed, ferritin was elevated. --> Continue to closely monitor --> Hgb goal >7 --> CURRENT Hgb 13.1--> hemoconcentration --> retic 1371, % sat 24% # Acute kidney injury on ivf --> Currently on IV fluids, IV bolus given to see if the patient responds along with IV pressor as needed. --> Closely monitor with Nephrology team. # Septic shock, use antibiotic per ID services. --> potential uti, on abx and bacteremia on abx # Respiratory failure, status post tracheostomy, on mechanical ventilation per Dr. Goetz --> Remains on vent/trach --> 06/03 CXR: Unchanged left pleural effusion versus scarring, over 4 days # Hypercalcemia. PTH is 37 and Ca++ is elevated --> monitor for improvement The time the note was entered does not necessarily correspond to the time the patient was seen. Greatly appreciate consultation! Subjective Hematologic/Lymphatic: Reports: anemia Allergies: Coded Allergies: AZTREONAM (Verified Allergy, Unknown, 05/13/18) Subjective No acute events. WBC improving, is on abx. Afebrile H/H stable. Objective Last 24 Hour Vital Signs Date Time Temp Pulse Resp B/P (MAP) Pulse Ox O2 Delivery O2 Flow Rate FiO2 07/28/18 16:28 105 07/28/18 16:17 108 18 100 Mechanical Ventilator 30 07/28/18 16:07 104 16 30 07/28/18 16:07 109 16 100 Mechanical Ventilator 30 07/28/18 16:00 98.1 104 16 114/74 (87) 100 98.1 07/28/18 16:00 30 07/28/18 16:00 Mechanical Ventilator 07/28/18 12:29 100 17 30 07/28/18 12:00 97.9 105 18 104/64 (77) 100 97.9 07/28/18 12:00 30 07/28/18 12:00 Mechanical Ventilator 07/28/18 11:47 101 07/28/18 08:33 102 17 30 07/28/18 08:00 30 07/28/18 08:00 98.1 101 16 115/79 (91) 100 98.1 07/28/18 08:00 Mechanical Ventilator 07/28/18 07:59 102 07/28/18 05:05 103 17 30 07/28/18 04:00 98.4 103 17 110/70 (83) 100 98.4 07/28/18 04:00 Mechanical Ventilator 07/28/18 04:00 103 07/28/18 04:00 30 07/28/18 03:30 103 16 30 07/28/18 01:10 105 18 30 07/28/18 00:00 104 07/28/18 00:00 98.2 107 17 100/75 (83) 100 98.2 07/28/18 00:00 30 07/28/18 00:00 Mechanical Ventilator 07/27/18 22:31 104 18 30 07/27/18 21:45 106 17 100 Mechanical Ventilator 30 07/27/18 21:30 102 17 99 Mechanical Ventilator 30 07/27/18 20:36 105 17 30 07/27/18 20:00 Mechanical Ventilator 07/27/18 20:00 98.1 105 16 111/77 (88) 100 98.1 07/27/18 20:00 104 07/27/18 20:00 30 07/27/18 19:30 101 18 30 Intake and Output 07/27/18 07/28/18 19:00 07:00 Intake Total 1858 ml 1695 ml Output Total 1075 ml 900 ml Balance 783 ml 795 ml Intake Free Water 220 ml 100 ml IV Total 918 ml 875 ml Tube Feeding 720 ml 720 ml Output Urine Total 775 ml 550 ml Stool Total 300 ml 350 ml Laboratory Tests 07/28/18 05:25: White Blood Count 12.4H, Red Blood Count 4.11L, Hemoglobin 11.9L, Hematocrit 36.8L, Mean Corpuscular Volume 89, Mean Corpuscular Hemoglobin 29.0, Mean Corpuscular Hemoglobin Concent 32.4, Red Cell Distribution Width 14.4, Platelet Count 332, Mean Platelet Volume 9.5, Neutrophils (%) (Auto) 63.4, Lymphocytes (% ) (Auto) 21.3, Monocytes (%) (Auto) 8.8, Eosinophils (%) (Auto) 5.8H, Basophils (%) (Auto) 0.7, Sodium Level 135L, Potassium Level 4.4, Chloride Level 103, Carbon Dioxide Level 21, Anion Gap 11, Blood Urea Nitrogen 21H, Creatinine 1.0, Estimat Glomerular Filtration Rate > 60, Glucose Level 191H, Calcium Level 9.9, Phosphorus Level 2.6, Magnesium Level 1.9, Total Bilirubin 0.4, Aspartate Amino Transf (AST/SGOT) 19, Alanine Aminotransferase (ALT/SGPT) 22, Alkaline Phosphatase 108, Total Protein 7.3, Albumin 2.2L, Globulin 5.1, Albumin/ Globulin Ratio 0.4L Height (Feet): 5 Height (Inches): 8.00 Weight (Pounds): 163 General Appearance: no apparent distress EENT: PERRL/EOMI Neck: normal alignment Cardiovascular: tachycardia Respiratory/Chest: no respiratory distress Abdomen: soft Jimmy Fleming MD Jul 28, 2018 19:29
[2018-07-28 20:00] VITALS: BP 101/69
[2018-07-28] MEDS: DAPTOmycin 450 MG in NS 55 ML IV SCH (20:11)
--- NOTE | 2018-07-28 20:48 | Infectious Diseases Prog Note ---
Assessment/Plan Assessment/Plan Assessment: Severe sepsis bacteremia 07/20 Bcx 2/ CONS; 07/21 10/25 CoNS ; 07/22 :neg , 07/25 : NTD UTI 07/23 UCx : 10k PSA probable PNA -u/a wbc 30-40, nit neg, leuk +2; ucx 10-20k PsA (R CIpro/levo, otherwise S) -sp cx ABC (I Tygecicline), CRE K,PNA -07/23 CXR : Improvement of persistent left pleural effusion and retrocardiac consolidation, over one day -CXR: Small left pleural effusion, not significantly changed. Unchanged subsegmental atelectasis versus infiltrate in the left lung base. -2d echo: no vegetations Fever, Sp Leukocytosis, improving DIYVA, improving Hx of UTI -04/2018 ucx >100k E. aerogenes (S cefepime, cipro/levo; R Zosyn) Hx of Bacteremia 04/2018 (PICC line infection, presumed endocarditis) -BCX 01/23 E. aerogenes, prob Amp C (S cefepime, cipro/levo; R Zosyn), P. 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 Plan: - Cont Tygacil d# / ( Coverage of [facility] , as Avycaz not available ) - Cont Daptomycind# 3 ( AB Rx d# 07/01 )for gram positive bacteremia pending repeat cultures and to minimize nephrotoxicity - Cont IV Colistin and add INH colistin d# 5 / for MDR ABC and CRE K.pna in sputum cx \ - 07/24 SP IV Vancomycin # 5 and Merrem d# 3 -07/20 SP Cefepime x1 -06/30 SP IV Vancomycin #42 -05/30 SP Ertapenem #14 -05/17/18 SP Zosyn #4 -f/u Bcx x2 -Monitor CBC/CMP, temperatures -trach/peg care -wound care/prevention per hospital care Subjective Allergies: Coded Allergies: AZTREONAM (Verified Allergy, Unknown, 05/13/18) Subjective afebrile wbc improved today Objective Vital Signs Last 24 Hour Vital Signs Date Time Temp Pulse Resp B/P (MAP) Pulse Ox O2 Delivery O2 Flow Rate FiO2 07/28/18 19:30 102 16 30 07/28/18 16:28 105 07/28/18 16:17 108 18 100 Mechanical Ventilator 30 07/28/18 16:07 104 16 30 07/28/18 16:07 109 16 100 Mechanical Ventilator 30 07/28/18 16:00 98.1 104 16 114/74 (87) 100 98.1 07/28/18 16:00 30 07/28/18 16:00 Mechanical Ventilator 07/28/18 12:29 100 17 30 07/28/18 12:00 97.9 105 18 104/64 (77) 100 97.9 07/28/18 12:00 30 07/28/18 12:00 Mechanical Ventilator 07/28/18 11:47 101 07/28/18 08:33 102 17 30 07/28/18 08:00 30 07/28/18 08:00 98.1 101 16 115/79 (91) 100 98.1 07/28/18 08:00 Mechanical Ventilator 07/28/18 07:59 102 07/28/18 05:05 103 17 30 07/28/18 04:00 98.4 103 17 110/70 (83) 100 98.4 07/28/18 04:00 Mechanical Ventilator 07/28/18 04:00 103 07/28/18 04:00 30 07/28/18 03:30 103 16 30 07/28/18 01:10 105 18 30 07/28/18 00:00 104 07/28/18 00:00 98.2 107 17 100/75 (83) 100 98.2 07/28/18 00:00 30 07/28/18 00:00 Mechanical Ventilator 07/27/18 22:31 104 18 30 07/27/18 21:45 106 17 100 Mechanical Ventilator 30 07/27/18 21:30 102 17 99 Mechanical Ventilator 30 Height (Feet): 5 Height (Inches): 8.00 Weight (Pounds): 163 HEENT: atraumatic Respiratory/Chest: no accessory muscle use Cardiovascular: regular rhythm Abdomen: soft, non tender Laboratory Tests Test 07/28/18 05:25 White Blood Count 12.4 K/UL (4.8-10.8) H Red Blood Count 4.11 M/UL (4.70-6.10) L Hemoglobin 11.9 G/DL (14.2-18.0) L Hematocrit 36.8 % (42.0-52.0) L Mean Corpuscular Volume 89 FL (80-99) Mean Corpuscular Hemoglobin 29.0 PG (27.0-31.0) Mean Corpuscular Hemoglobin Concent 32.4 G/DL (32.0-36.0) Red Cell Distribution Width 14.4 % (11.6-14.8) Platelet Count 332 K/UL (150-450) Mean Platelet Volume 9.5 FL (6.5-10.1) Neutrophils (%) (Auto) 63.4 % (45.0-75.0) Lymphocytes (%) (Auto) 21.3 % (20.0-45.0) Monocytes (%) (Auto) 8.8 % (1.0-10.0) Eosinophils (%) (Auto) 5.8 % (0.0-3.0) H Basophils (%) (Auto) 0.7 % (0.0-2.0) Sodium Level 135 MMOL/L (136-145) L Potassium Level 4.4 MMOL/L (3.5-5.1) Chloride Level 103 MMOL/L (98-107) Carbon Dioxide Level 21 MMOL/L (21-32) Anion Gap 11 mmol/L (5-15) Blood Urea Nitrogen 21 mg/dL (7-18) H Creatinine 1.0 MG/DL (0.55-1.30) Estimat Glomerular Filtration Rate > 60 mL/min (>60) Glucose Level 191 MG/DL (74-106) H Calcium Level 9.9 MG/DL (8.5-10.1) Phosphorus Level 2.6 MG/DL (2.5-4.9) Magnesium Level 1.9 MG/DL (1.8-2.4) Total Bilirubin 0.4 MG/DL (0.2-1.0) Aspartate Amino Transf (AST/SGOT) 19 U/L (15-37) Alanine Aminotransferase (ALT/SGPT) 22 U/L (12-78) Alkaline Phosphatase 108 U/L (46-116) Total Protein 7.3 G/DL (6.4-8.2) Albumin 2.2 G/DL (3.4-5.0) L Globulin 5.1 g/dL Albumin/Globulin Ratio 0.4 (1.0-2.7) L Current Medications Medications (Trade) Dose Ordered Sig/Va Route PRN Reason Start Time Stop Time Status Last Admin Dose Admin Acetaminophen (Tylenol) 650 mg Q4H PRN ORAL FEVER 07/20/18 15:05 08/19/18 15:04 07/26/18 16:13 Ascorbic Acid (Vitamin C) 500 mg DAILY GT 07/22/18 09:00 08/21/18 08:59 07/28/18 10:08 Baclofen (Lioresal) 10 mg THREE TIMES A DAY GT 07/20/18 18:00 08/19/18 17:59 07/28/18 17:15 Colistimethate Sodium (Colistin *inhalation use only*) 150 mg Q12HR@10,22 INH 07/24/18 22:00 07/31/18 21:59 07/28/18 16:07 Colistimethate Sodium (Colistin) 150 mg EVERY 12 HOURS IVP 07/24/18 21:00 07/31/18 20:59 07/28/18 20:12 Daptomycin 450 mg/ Sodium Chloride 55 ml @ 100 mls/hr Q24H IV 07/25/18 20:00 08/01/18 19:59 07/28/18 20:11 Dextrose (Dextrose 50%) 25 ml Q30M PRN IV Hypoglycemia 07/24/18 15:15 08/23/18 15:14 Dextrose (Dextrose 50%) 50 ml Q30M PRN IV Hypoglycemia 07/24/18 15:15 08/23/18 15:14 Heparin Sodium (Porcine) (Heparin 5000 units/ml) 5,000 units EVERY 12 HOURS SUBQ 07/20/18 21:00 08/19/18 20:59 07/28/18 20:13 Insulin Aspart (NovoLOG) Q6HR SUBQ 07/21/18 00:00 08/19/18 16:29 07/28/18 17:16 Levetiracetam (Keppra) 1,000 mg TID GT 07/28/18 13:00 08/27/18 12:59 07/28/18 17:16 Ondansetron HCl (Zofran) 4 mg Q6H PRN IVP Nausea & Vomiting 07/20/18 15:05 08/19/18 15:04 Pantoprazole (Protonix) 40 mg DAILY IV 07/21/18 09:00 08/20/18 08:59 07/28/18 10:09 Polyethylene Glycol (Miralax) 17 gm DAILYPRN PRN GT Constipation 07/20/18 15:45 08/19/18 15:04 Potassium Chloride 40 meq/ Dextrose/Sodium Chloride 1,020 ml @ 50 mls/hr [id number] IV 07/23/18 13:30 08/22/18 13:29 07/28/18 15:42 Sitagliptin Phosphate (Januvia) 50 mg DAILY GT 07/27/18 09:00 08/20/18 08:59 07/28/18 10:08 Tigecycline 50 mg/ Dextrose 110 ml @ 220 mls/hr Q12H IVPB 07/26/18 04:00 08/02/18 03:59 07/28/18 15:42 Vitamin A/Vitamin D (A & D Oint) 1 applic Q12H TOPIC 07/20/18 21:00 08/19/18 20:59 07/28/18 20:11 Christian Manriquez MD Jul 28, 2018 20:48
[2018-07-29] VITALS: BP 106/67
[2018-07-29] MEDS: Tigecycline 50mg in D5W 110ml IVPB SCH ×2 (03:00→17:27)
[2018-07-29 04:00] VITALS: BP 112/77
[2018-07-29] MEDS: NovoLOG Insulin Flexpen SUBQ SCH ×3 (05:10→17:32)
--- NOTE | 2018-07-29 06:53 | General Progress Note ---
Assessment/Plan Assessment/Plan # Leukocytosis - sepsis with elevated temperature of 103 degrees F on admission. Had uti v bacteremia (CoNS) on abx, has improved, had infection on prior admission. Still fever persists on abx --> Pt on antibiotics, have been changed as per ID --> Appreciate Infectious Disease recs --> 2D echo per ID performed on 05/22: No discrete vegetations seen, however SBE may not be excluded by transthoracic 2-D echo --> wbc elevation unlikely related to bone marrow process --> Currently, WBC at 12.4, has been improving. Afebrile. # Anemia of chronic disease. No hemolysis, peripheral smear reviewed, ferritin was elevated. --> Continue to closely monitor --> Hgb goal >7 --> CURRENT Hgb 10 - 13.1--> due to hemoconcentration --> retic 1371, % sat 24% # Acute kidney injury on ivf --> Currently on IV fluids, IV bolus given to see if the patient responds along with IV pressor as needed. --> Closely monitor with Nephrology team. # Septic shock, use antibiotic per ID services. --> potential uti, on abx and bacteremia on abx # Respiratory failure, status post tracheostomy, on mechanical ventilation per Dr. Goetz --> Remains on vent/trach --> 06/03 CXR: Unchanged left pleural effusion versus scarring, over 4 days # Hypercalcemia. PTH is 37 and Ca++ is elevated --> monitor for improvement The time the note was entered does not necessarily correspond to the time the patient was seen. Greatly appreciate consultation! Subjective ROS Limited/Unobtainable: Yes Gastrointestinal/Abdominal: Denies: no symptoms, abdomen distended, abdominal pain, black stools, tarry stools, blood in stool, constipated, diarrhea, difficulty swallowing, nausea, poor appetite, poor fluid intake, rectal bleeding , vomiting, other Allergies: Coded Allergies: AZTREONAM (Verified Allergy, Unknown, 05/13/18) Subjective No acute events. WBC improving, is on abx. Afebrile H/H stable. Objective Last 24 Hour Vital Signs Date Time Temp Pulse Resp B/P (MAP) Pulse Ox O2 Delivery O2 Flow Rate FiO2 07/29/18 05:30 105 19 30 07/29/18 04:00 98.3 106 17 112/77 (89) 98 98.3 07/29/18 04:00 30 07/29/18 04:00 106 07/29/18 04:00 Mechanical Ventilator 07/29/18 03:30 103 18 30 07/29/18 00:47 102 18 30 07/29/18 00:00 107 07/29/18 00:00 30 07/29/18 00:00 98.4 107 17 106/67 (80) 100 98.4 07/29/18 00:00 Mechanical Ventilator 07/28/18 23:30 104 17 30 07/28/18 21:30 103 16 30 07/28/18 20:00 30 07/28/18 20:00 Mechanical Ventilator 07/28/18 20:00 98.1 107 21 101/69 (80) 100 98.1 07/28/18 20:00 106 07/28/18 19:30 102 16 30 07/28/18 16:28 105 07/28/18 16:17 108 18 100 Mechanical Ventilator 30 07/28/18 16:07 104 16 30 07/28/18 16:07 109 16 100 Mechanical Ventilator 30 07/28/18 16:00 98.1 104 16 114/74 (87) 100 98.1 07/28/18 16:00 30 07/28/18 16:00 Mechanical Ventilator 07/28/18 12:29 100 17 30 07/28/18 12:00 97.9 105 18 104/64 (77) 100 97.9 07/28/18 12:00 30 07/28/18 12:00 Mechanical Ventilator 07/28/18 11:47 101 07/28/18 08:33 102 17 30 07/28/18 08:00 30 07/28/18 08:00 98.1 101 16 115/79 (91) 100 98.1 07/28/18 08:00 Mechanical Ventilator 07/28/18 07:59 102 Intake and Output 07/28/18 07/29/18 19:00 07:00 Intake Total 1245 ml 1587 ml Output Total 1700 ml 400 ml Balance -455 ml 1187 ml Intake Free Water 100 ml IV Total 525 ml 827 ml Tube Feeding 720 ml 660 ml Output Urine Total 1450 ml 400 ml Stool Total 250 ml # Bowel Movements 1 Laboratory Tests 07/29/18 06:33: White Blood Count [Pending], Red Blood Count [Pending], Hemoglobin [Pending], Hematocrit [Pending], Mean Corpuscular Volume [Pending], Mean Corpuscular Hemoglobin [Pending], Mean Corpuscular Hemoglobin Concent [Pending], Red Cell Distribution Width [Pending], Platelet Count [Pending], Mean Platelet Volume [ Pending], Neutrophils (%) (Auto) [Pending], Lymphocytes (%) (Auto) [Pending], Monocytes (%) (Auto) [Pending], Eosinophils (%) (Auto) [Pending], Basophils (%) (Auto) [Pending], Sodium Level [Pending], Potassium Level [Pending], Chloride Level [Pending], Carbon Dioxide Level [Pending], Blood Urea Nitrogen [Pending], Creatinine [Pending], Estimat Glomerular Filtration Rate [Pending], Glucose Level [Pending], Calcium Level [Pending] Height (Feet): 5 Height (Inches): 8.00 Weight (Pounds): 163 General Appearance: no apparent distress EENT: TMs normal Neck: supple Cardiovascular: regular rhythm Respiratory/Chest: normal breath sounds, other - trach/vent Abdomen: soft, other - +peg tfeed Extremities: non-tender Edema: 1+ Leg (L), 1+ Leg (R) Edema: mild edema Neurologic: alert Skin: warm/dry Jimmy Fleming MD Jul 29, 2018 06:53
[2018-07-29 06:54] LABS: BASOPHILS % (AUTO) 2.1 % (0.0-2.0); EOSINOPHILS % (AUTO) 4.6 % (0.0-3.0); HEMATOCRIT 33.4 % (42.0-52.0); HEMOGLOBIN 11.1 G/DL (14.2-18.0); LYMPHOCYTES % (AUTO) 18.1 % (20.0-45.0); MEAN CORPUSCULAR VOLUME 88 FL (80-99); MONOCYTES % (AUTO) 6.2 % (1.0-10.0); PLATELET COUNT 353 K/UL (150-450); RED BLOOD COUNT 3.81 M/UL (4.70-6.10); RED CELL DISTRIBUTION WIDTH 14.1 % (11.6-14.8); WHITE BLOOD COUNT 11.5 K/UL (4.8-10.8)
[2018-07-29 07:17] LABS: ANION GAP 13 mmol/L (5-15); BLOOD UREA NITROGEN 20 mg/dL (7-18); CALCIUM 9.5 MG/DL (8.5-10.1); CARBON DIOXIDE 18 MMOL/L (21-32); CHLORIDE 102 MMOL/L (98-107); CREATININE 1.1 MG/DL (0.55-1.30); POTASSIUM 4.3 MMOL/L (3.5-5.1); SODIUM 133 MMOL/L (136-145)
[2018-07-29 08:00] VITALS: BP 103/70
[2018-07-29] MEDS: sitaGLIPtin 50mg tab GT SCH (08:07)
[2018-07-29] MEDS: Vitamin A&D Oint 2oz Tube TOPIC SCH (08:07)
[2018-07-29] MEDS: Pantoprazole Inj IV SCH (08:07)
[2018-07-29] MEDS: levETIRAcetam 500mg/5ml Liquid GT SCH ×3 (08:08→17:26)
[2018-07-29] MEDS: Ascorbic Acid 500mg tab GT SCH (08:08)
[2018-07-29] MEDS: Colistin 150mg vial IVP SCH (08:09)
[2018-07-29] MEDS: Heparin 5000 units/ml inj SUBQ SCH (08:19)
[2018-07-29] MEDS: Colistin for inhalation INH SCH (09:07)
[2018-07-29 09:46] VITALS: BP 103/70
--- NOTE | 2018-07-29 11:00 | Pulmonolgy Critical Care Note ---
Critical Care - Asmt/Plan Problems: (1) Acute on chronic respiratory failure (2) Sepsis (3) UTI (urinary tract infection) (4) Diabetes mellitus (5) Vegetative state (6) Colostomy in place Respiratory: monitor respiratory rate, adjust FIO2, CXR Cardiac: continue to monitor HR/BP Renal: F/U I&O Infectious Disease: check cultures Gastrointestinal: continue feedings/current rate Endocrine: check HgA1C Hematologic: monitor H/H Neurologic: PRN Morphine Prophylaxis: Protonix Notes Reviewed: cardio, renal Discussed with: consultants, director casevirtual classroom manager - Objective Last 24 Hour Vital Signs Date Time Temp Pulse Resp B/P (MAP) Pulse Ox O2 Delivery O2 Flow Rate FiO2 07/29/18 09:46 98.1 109 18 103/70 (81) 99 98.1 07/29/18 09:45 109 07/29/18 09:25 106 18 100 Mechanical Ventilator 30 07/29/18 09:08 107 18 98 Mechanical Ventilator 30 07/29/18 09:06 107 18 30 07/29/18 08:00 30 07/29/18 08:00 Mechanical Ventilator 07/29/18 08:00 98.1 109 18 103/70 (81) 99 98.1 07/29/18 06:51 101 18 30 07/29/18 05:30 105 19 30 07/29/18 04:00 98.3 106 17 112/77 (89) 98 98.3 07/29/18 04:00 30 07/29/18 04:00 106 07/29/18 04:00 Mechanical Ventilator 07/29/18 03:30 103 18 30 07/29/18 00:47 102 18 30 07/29/18 00:00 107 07/29/18 00:00 30 07/29/18 00:00 98.4 107 17 106/67 (80) 100 98.4 07/29/18 00:00 Mechanical Ventilator 07/28/18 23:30 104 17 30 07/28/18 21:30 103 16 30 07/28/18 20:00 30 07/28/18 20:00 Mechanical Ventilator 07/28/18 20:00 98.1 107 21 101/69 (80) 100 98.1 07/28/18 20:00 106 07/28/18 19:30 102 16 30 07/28/18 16:28 105 07/28/18 16:17 108 18 100 Mechanical Ventilator 30 07/28/18 16:07 104 16 30 07/28/18 16:07 109 16 100 Mechanical Ventilator 30 07/28/18 16:00 98.1 104 16 114/74 (87) 100 98.1 07/28/18 16:00 30 07/28/18 16:00 Mechanical Ventilator 07/28/18 12:29 100 17 30 07/28/18 12:00 97.9 105 18 104/64 (77) 100 97.9 07/28/18 12:00 30 07/28/18 12:00 Mechanical Ventilator 07/28/18 11:47 101 Status: obtunded Condition: critical HEENT: atraumatic Lungs: clear Heart: HR/BP stable Abdomen: active bowel sounds, feeding tube Extremities: edema Decubiti: location Accucheck: 146 Critical Care - Subjective ROS Limited/Unobtainable: Yes Condition: critical EKG Rhythm: Sinus Rhythm FI02: 30 Vent Support Breath Rate: 16 Vent Support Mode: AC Vent Tidal Volume: 600 Sputum Amount: Moderate PEEP: 5.0 PIP: 28 Tube Feeding Amount: 60 I&O: Intake and Output 07/28/18 07/29/18 19:00 07:00 Intake Total 1245 ml 1697 ml Output Total 1700 ml 400 ml Balance -455 ml 1297 ml Intake Free Water 100 ml IV Total 525 ml 877 ml Tube Feeding 720 ml 720 ml Output Urine Total 1450 ml 400 ml Stool Total 250 ml # Bowel Movements 1 CXR: no new changes Labs: Laboratory Tests Test 07/29/18 06:33 White Blood Count 11.5 K/UL (4.8-10.8) H Red Blood Count 3.81 M/UL (4.70-6.10) L Hemoglobin 11.1 G/DL (14.2-18.0) L Hematocrit 33.4 % (42.0-52.0) L Mean Corpuscular Volume 88 FL (80-99) Mean Corpuscular Hemoglobin 29.0 PG (27.0-31.0) Mean Corpuscular Hemoglobin Concent 33.1 G/DL (32.0-36.0) Red Cell Distribution Width 14.1 % (11.6-14.8) Platelet Count 353 K/UL (150-450) Mean Platelet Volume 8.8 FL (6.5-10.1) Neutrophils (%) (Auto) 69.0 % (45.0-75.0) Lymphocytes (%) (Auto) 18.1 % (20.0-45.0) L Monocytes (%) (Auto) 6.2 % (1.0-10.0) Eosinophils (%) (Auto) 4.6 % (0.0-3.0) H Basophils (%) (Auto) 2.1 % (0.0-2.0) H Sodium Level 133 MMOL/L (136-145) L Potassium Level 4.3 MMOL/L (3.5-5.1) Chloride Level 102 MMOL/L (98-107) Carbon Dioxide Level 18 MMOL/L (21-32) L Anion Gap 13 mmol/L (5-15) Blood Urea Nitrogen 20 mg/dL (7-18) H Creatinine 1.1 MG/DL (0.55-1.30) Estimat Glomerular Filtration Rate > 60 mL/min (>60) Glucose Level 163 MG/DL (74-106) H Calcium Level 9.5 MG/DL (8.5-10.1) Nico Goetz MD Jul 29, 2018 11:00
[2018-07-29] MEDS: Potassium Chloride 40 MEQ in D5 1/4NS 1000ml 1,000 ML IV SCH (11:49)
[2018-07-29 12:00] VITALS: BP 110/75
--- NOTE | 2018-07-29 12:54 | Infectious Diseases Prog Note ---
Assessment/Plan Assessment/Plan Assessment: Severe sepsis bacteremia 07/20 Bcx 2/ CONS; 07/21 10/25 CoNS ; 07/22 :neg , 07/25 : NTD UTI 07/23 UCx : 10k PSA probable PNA -u/a wbc 30-40, nit neg, leuk +2; ucx 10-20k PsA (R CIpro/levo, otherwise S) -sp cx ABC (I Tygecicline), CRE K,PNA -07/23 CXR : Improvement of persistent left pleural effusion and retrocardiac consolidation, over one day -CXR: Small left pleural effusion, not significantly changed. Unchanged subsegmental atelectasis versus infiltrate in the left lung base. -2d echo: no vegetations Fever, Sp Leukocytosis, improving DIVYA, improving Elevated CK, improving Hx of UTI -04/2018 ucx >100k E. aerogenes (S cefepime, cipro/levo; R Zosyn) Hx of Bacteremia 04/2018 (PICC line infection, presumed endocarditis) -BCX 01/23 E. aerogenes, prob Amp C (S cefepime, cipro/levo; R Zosyn), P. 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 Plan: - Cont Tygacil d# / ( Coverage of [facility] , as Avycaz not available ) - Cont Daptomycind# 4 ( AB Rx d# 07/31 )for gram positive bacteremia pending repeat cultures and to minimize nephrotoxicity - Cont IV Colistin and INH colistin d# 6 / 7 for MDR ABC and CRE K.pna in sputum cx - 07/24 SP IV Vancomycin # 5 and Merrem d# 3 -07/20 SP Cefepime x1 -06/30 SP IV Vancomycin #42 -05/30 SP Ertapenem #14 -05/17/18 SP Zosyn #4 -f/u Bcx x2 -Monitor CBC/CMP, temperatures -trach/peg care -wound care/prevention per hospital care Subjective Allergies: Coded Allergies: AZTREONAM (Verified Allergy, Unknown, 05/13/18) Subjective afebrile >48hrs leukocytosis improving Bcx NTD Objective Vital Signs Last 24 Hour Vital Signs Date Time Temp Pulse Resp B/P (MAP) Pulse Ox O2 Delivery O2 Flow Rate FiO2 07/29/18 12:33 109 18 30 07/29/18 12:00 97.7 105 18 110/75 (87) 100 97.7 07/29/18 12:00 30 07/29/18 12:00 Mechanical Ventilator 07/29/18 10:48 110 18 30 07/29/18 09:46 98.1 109 18 103/70 (81) 99 98.1 07/29/18 09:45 109 07/29/18 09:25 106 18 100 Mechanical Ventilator 30 07/29/18 09:08 107 18 98 Mechanical Ventilator 30 07/29/18 09:06 107 18 30 07/29/18 08:00 30 07/29/18 08:00 Mechanical Ventilator 07/29/18 08:00 98.1 109 18 103/70 (81) 99 98.1 07/29/18 06:51 101 18 30 07/29/18 05:30 105 19 30 07/29/18 04:00 98.3 106 17 112/77 (89) 98 98.3 07/29/18 04:00 30 07/29/18 04:00 106 07/29/18 04:00 Mechanical Ventilator 07/29/18 03:30 103 18 30 07/29/18 00:47 102 18 30 07/29/18 00:00 107 07/29/18 00:00 30 07/29/18 00:00 98.4 107 17 106/67 (80) 100 98.4 07/29/18 00:00 Mechanical Ventilator 07/28/18 23:30 104 17 30 07/28/18 21:30 103 16 30 07/28/18 20:00 30 07/28/18 20:00 Mechanical Ventilator 07/28/18 20:00 98.1 107 21 101/69 (80) 100 98.1 07/28/18 20:00 106 07/28/18 19:30 102 16 30 07/28/18 16:28 105 07/28/18 16:17 108 18 100 Mechanical Ventilator 30 07/28/18 16:07 104 16 30 07/28/18 16:07 109 16 100 Mechanical Ventilator 30 07/28/18 16:00 98.1 104 16 114/74 (87) 100 98.1 07/28/18 16:00 30 07/28/18 16:00 Mechanical Ventilator Height (Feet): 5 Height (Inches): 8.00 Weight (Pounds): 163 Objective HEENT: Conjunctivae were pink. mucous membranes were not dehydrated.. Soft palate was free of ulcerations. Pharynx was clear from exudate or tonsillar hypertrophy. NECK: Supple. There was no goiter. No mass. No lymphadenopathy. There was no JVD. No bruits. Carotid upstroke was 2+. LUNGS: Clear. HEART: PMI was in fifth left intercostal space in midclavicular line. There was normal S1 and normal S2. There was no murmur. No arrhythmia. No S3. No S4. No pericardial rub. ABDOMEN: Soft and nontender without organomegaly. There were no masses palpable. Normal bowel sounds without bruits. There was no guarding. No rebound tenderness. No ascites. No hernia. No CVA tenderness. Liver span was 8 cm, smooth, and nontender. EXTREMITIES: No cyanosis, no clubbing, and no edema. Extremities were warm. Laboratory Tests Test 07/29/18 06:33 07/29/18 10:40 White Blood Count 11.5 K/UL (4.8-10.8) H Red Blood Count 3.81 M/UL (4.70-6.10) L Hemoglobin 11.1 G/DL (14.2-18.0) L Hematocrit 33.4 % (42.0-52.0) L Mean Corpuscular Volume 88 FL (80-99) Mean Corpuscular Hemoglobin 29.0 PG (27.0-31.0) Mean Corpuscular Hemoglobin Concent 33.1 G/DL (32.0-36.0) Red Cell Distribution Width 14.1 % (11.6-14.8) Platelet Count 353 K/UL (150-450) Mean Platelet Volume 8.8 FL (6.5-10.1) Neutrophils (%) (Auto) 69.0 % (45.0-75.0) Lymphocytes (%) (Auto) 18.1 % (20.0-45.0) L Monocytes (%) (Auto) 6.2 % (1.0-10.0) Eosinophils (%) (Auto) 4.6 % (0.0-3.0) H Basophils (%) (Auto) 2.1 % (0.0-2.0) H Sodium Level 133 MMOL/L (136-145) L Potassium Level 4.3 MMOL/L (3.5-5.1) Chloride Level 102 MMOL/L (98-107) Carbon Dioxide Level 18 MMOL/L (21-32) L Anion Gap 13 mmol/L (5-15) Blood Urea Nitrogen 20 mg/dL (7-18) H Creatinine 1.1 MG/DL (0.55-1.30) Estimat Glomerular Filtration Rate > 60 mL/min (>60) Glucose Level 163 MG/DL (74-106) H Calcium Level 9.5 MG/DL (8.5-10.1) Prothrombin Time 11.0 SEC (9.30-11.50) Prothromb Time International Ratio 1.0 (0.9-1.1) Current Medications Medications (Trade) Dose Ordered Sig/Va Route PRN Reason Start Time Stop Time Status Last Admin Dose Admin Acetaminophen (Tylenol) 650 mg Q4H PRN ORAL FEVER 07/20/18 15:05 08/19/18 15:04 07/26/18 16:13 Ascorbic Acid (Vitamin C) 500 mg DAILY GT 07/22/18 09:00 08/21/18 08:59 07/29/18 08:08 Baclofen (Lioresal) 10 mg THREE TIMES A DAY GT 07/20/18 18:00 08/19/18 17:59 07/29/18 12:07 Colistimethate Sodium (Colistin *inhalation use only*) 150 mg Q12HR@10,22 INH 07/24/18 22:00 07/31/18 21:59 07/29/18 09:07 Colistimethate Sodium (Colistin) 150 mg EVERY 12 HOURS IVP 07/24/18 21:00 07/31/18 20:59 07/29/18 08:09 Daptomycin 450 mg/ Sodium Chloride 55 ml @ 100 mls/hr Q24H IV 07/25/18 20:00 08/01/18 19:59 07/28/18 20:11 Dextrose (Dextrose 50%) 25 ml Q30M PRN IV Hypoglycemia 07/24/18 15:15 08/23/18 15:14 Dextrose (Dextrose 50%) 50 ml Q30M PRN IV Hypoglycemia 07/24/18 15:15 08/23/18 15:14 Heparin Sodium (Porcine) (Heparin 5000 units/ml) 5,000 units EVERY 12 HOURS SUBQ 07/20/18 21:00 08/19/18 20:59 07/29/18 08:19 Insulin Aspart (NovoLOG) Q6HR SUBQ 07/21/18 00:00 08/19/18 16:29 07/29/18 11:41 Levetiracetam (Keppra) 1,000 mg TID GT 07/28/18 13:00 08/27/18 12:59 07/29/18 12:07 Ondansetron HCl (Zofran) 4 mg Q6H PRN IVP Nausea & Vomiting 07/20/18 15:05 08/19/18 15:04 Pantoprazole (Protonix) 40 mg DAILY IV 07/21/18 09:00 08/20/18 08:59 07/29/18 08:07 Polyethylene Glycol (Miralax) 17 gm DAILYPRN PRN GT Constipation 07/20/18 15:45 08/19/18 15:04 Potassium Chloride 40 meq/ Dextrose/Sodium Chloride 1,020 ml @ 50 mls/hr [id number] IV 07/23/18 13:30 08/22/18 13:29 07/29/18 11:49 Sitagliptin Phosphate (Januvia) 50 mg DAILY GT 07/27/18 09:00 08/20/18 08:59 07/29/18 08:07 Tigecycline 50 mg/ Dextrose 110 ml @ 220 mls/hr Q12H IVPB 07/26/18 04:00 08/02/18 03:59 07/29/18 03:00 Vitamin A/Vitamin D (A & D Oint) 1 applic Q12H TOPIC 07/20/18 21:00 08/19/18 20:59 07/29/18 08:07 Maribel Barrera M.D. Jul 29, 2018 12:54
--- NOTE | 2018-07-29 14:30 | Progress Note ---
DATE: 07/28/2018 SUBJECTIVE: The patient is awake, alert, afebrile, and hemodynamically stable. PHYSICAL EXAMINATION: VITAL SIGNS: Blood pressure 101/69, his pulse is 107, respirations 21, and temperature 98.1. HEENT: Eyes were normal. ENT, mucous membranes were moist and intact. Tongue is protruded. NECK: Supple with no JVD without lymph nodes. Tracheostomy site is clean LUNGS: Clear without rhonchi, rales, or wheezing. Secretions are small, thin, and hodgson. HEART: Normal sounds with regular beats. There is no S3, S4, or pericardial rub. ABDOMEN: Soft and nontender with normal bowel sounds. Gastrostomy site is clean. EXTREMITIES: Warm without cyanosis, clubbing, or edema. LABORATORY AND DIAGNOSTIC DATA: Hemoglobin is 11.9, hematocrit , MCV of 89, WBC of 12.4, and platelets . His BUN and creatinine are 21 and 1.0 respectively. His sodium is 125, potassium , chloride 103, CO2 was 21. His chest x-ray revealed in the right midlung field with infiltrate. IMPRESSION AND PLAN: be continued. , repeat laboratory testing will be done in the morning. Sariah Bhat M.D. DR: KATHIE JOB#: [id number] CC:
[2018-07-29] MEDS: DAPTOmycin 450 MG in NS 55 ML IV SCH (16:30)
[2018-07-29 16:56] VITALS: BP 114/70
[2018-07-29] MEDS ORDERED: NS 275ml ONE (20:51)
[2018-07-29] MEDS ORDERED: Tubing IV Secondary IV ONE (20:51)
--- NOTE | 2018-08-01 10:48 | Discharge Summary ---
Discharge Summary Discharge Summary _ DATE OF ADMISSION: 07/20/2018 DATE OF DISCHARGE: 07/29/2018 REASON FOR ADMISSION: 53 years old male with past medical history of ventilator dependent respiratory failure, tracheostomy status, status post intracerebral hemorrhage, COPD, diabetes mellitus, seizure disorder, BPH, dysphagia, G-tube , colostomy status, was sent for evaluation from snf facility due to fever. Upon evaluation in emergency department patient was found to be febrile and tachycardic . Laboratory workup revealed significant leukocytosis along with the evidence of renal failure. Troponin was negative. EKG revealed sinus tachycardia, but no acute ischemic changes. Urinalysis was grossly positive for UTI. Chest x-ray revealed atelectasis versus infiltrate. Septic workup was initiated in emergency department. Patient was admitted for further management to direct observational unit with diagnoses of sepsis, urinary tract infection, possible pneumonia ,acute on chronic respiratory failure, chronic ventilator dependent respiratory failure, tracheostomy status, acute ,renal failure, possible dehydration, chronic encephalopathy with vegetative state, dysphagia, G-tube, diabetes mellitus, COPD, seizure disorder, history of intracerebral hemorrhage, colostomy status. CONSULTANTS: pulmonary Dr. Goetz [facility]on[facility] Dr. Fleming [facility]: Patient admitted to direct observational unit and started on empiric antibiotic and IV fluids. Infectious disease specialist closely followed. Urine culture revealed Pseudomonas. Blood culture initially revealed Staphylococcus auricularis and repeated blood culture revealed Staphylococcus coagulase negative. Last blood culture on July 22 came back negative. Sputum culture revealed Acinetobacter MDR, Klebsiella pneumonia carbapenem resistant and Morganella. IV antibiotic regimen optimized as per ID specialist recommendations and needs to be continued at the snf facility to complete the course. Leukocytosis trending down, prior to discharge WBC 11.5 ,no fevers. Echocardiogram revealed preserved ejection fraction of 55-60%, no wall motion abnormality. No evidence of vegetation. Baseline ABG was stable on current settings. Ventilator support and tracheostomy care provided. Pulmonary toilet provided as needed. Patient was followed up with the chest x-ray. Venous duplex bilateral lower extremities revealed no evidence of acute DVT. Renal parameters and electrolytes were closely monitored. Electrolytes corrected as needed, and nephrotoxins were avoided. Acute renal failure was likely due to sepsis and dehydration, and resolved as patient clinically stabilized. Strict aspiration precautions were maintained. Patient started on G-tube feeding . G-tube site care provided. Patient was able to tolerate tube feeding. Seizure precautions were maintained. Keppra was continued. No evidence of seizure activity while in the hospital. Blood sugar was managed with Januvia and sliding scale of insulin. Colostomy care provided. Pain management was addressed, and pain was controlled. Supportive care provided. DVT and GI prophylaxis provided. Strand And Binder Controller closely followed. Hemoglobin and hematocrit were closely monitored with goal to keep hemoglobin above 7. Hemoglobin and hematocrit remained at the baseline, no need for transfusion. Anemia workup was consistent with anemia of chronic disease. No evidence of hemolysis on peripheral blood smear review. Initially patient was hypercalcemic . PTH was within normal limits . Calcium down to normal . Patient was clinically stabilized and ready for transfer to snf facility for continuation of care. FINAL DIAGNOSES: Severe sepsis with bacteremia Pseudomonas UTI Probable pneumonia Acute on chronic hypoxemic respiratory failure Chronic ventilator dependent respiratory failure with tracheostomy status Acute kidney injury due to sepsis and dehydration, resolved Dysphagia G-tube Chronic encephalopathy with vegetative state Diabetes mellitus COPD i Seizure disorder History of intracerebral hemorrhage Colostomy status Anemia of chronic disease DISCHARGE MEDICATIONS: List of medication was sent to accepting facility. DISCHARGE INSTRUCTIONS: Patient was discharged to the snf facility. Follow up with medical doctor at the facility. I have been assigned to dictate discharge summary for this account. I was not involved in the patient's management. Radha Kaufman NP Aug 01, 2018 10:48
== END 2018-07-29 20:52 | DRG 870 ==
LOC: EDBD 11:12 → EMR 11:30 → EDBEDREQ 11:35 → 2W 12:37 → EDBEDREQ 13:21 → 2W 07-28 23:09
PROC: 5A1955Z Respiratory Ventilation, Greater than 96 Consecutive Hours (ICD-10-PCS; principal; 2018-07-20)
DX: A41.9 Sepsis, unspecified organism (principal); R65.21 Severe sepsis with septic shock; J96.21 Acute and chronic respiratory failure with hypoxia; J18.9 Pneumonia, unspecified organism; N17.9 Acute kidney failure, unspecified; N39.0 Urinary tract infection, site not specified; Z99.11 Dependence on respirator [ventilator] status; J44.0 Chronic obstructive pulmonary disease with (acute) lower respiratory infection; G93.40 Encephalopathy, unspecified; R40.3 Persistent vegetative state; Z86.73 Personal history of transient ischemic attack (TIA), and cerebral infarction without residual deficits; G40.909 Epilepsy, unspecified, not intractable, without status epilepticus; Z93.0 Tracheostomy status; Z93.1 Gastrostomy status; E11.9 Type 2 diabetes mellitus without complications; N40.0 Benign prostatic hyperplasia without lower urinary tract symptoms; Z93.3 Colostomy status; R13.10 Dysphagia, unspecified; E86.0 Dehydration; K59.00 Constipation, unspecified; D64.9 Anemia, unspecified; E83.52 Hypercalcemia; B96.5 Pseudomonas (aeruginosa) (mallei) (pseudomallei) as the cause of diseases classified elsewhere
CPT/HCPCS: 36415; 36600; 51702; 71045; 80048; 80053; 80069; 81001; 81003; 82550; 82553; 82607; 82728; 82803; 82962; 83540; 83550; 83605; 83735; 83880; 83970; 84100; 84443; 84484; 85007; 85025; 85610; 85651; 86140; 87040; 87070; 87081; 87086; 87181; 87205; 93005; 93306; 93970; 94002; 94003; 94640; 94664; 96360; 96361; 99291; J1815

== ENCOUNTER 2018-11-17 21:53 | Inpatient (IN) | payer BC, OTHER ==
[~2018-11-17] VITALS: Ht 170.2 cm; Wt 89.4 kg
[~2018-11-17 21:53] MED LIST changes: +ALBUTEROL2.5 MG/3 M INH; +APLISOL5 TUB UNIT ID; +ARGINAID POWDE1 EACH PO; +FENOFIBRATE145 M1 GT; +VANCOMYCIN750 MG IVPB
--- NOTE | 2018-11-17 22:00 | NUR ---
ED Nurse Note: pt brought in by RA 26 from [facility] due to tachycardia 124 and fever 101.7
--- NOTE | 2018-11-17 22:10 | NUR ---
ED Nurse Note: blood drawn; sent down to lab.
[2018-11-17 22:43] LABS: BASOPHILS % (AUTO) 1.1 % (0.0-2.0); EOSINOPHILS % (AUTO) 2.2 % (0.0-3.0); HEMATOCRIT 47.9 % (42.0-52.0); HEMOGLOBIN 15.5 G/DL (14.2-18.0); LYMPHOCYTES % (AUTO) 10.7 % (20.0-45.0); MEAN CORPUSCULAR VOLUME 91 FL (80-99); MONOCYTES % (AUTO) 6.5 % (1.0-10.0); NEUTROPHILS % (AUTO) 79.4 % (45.0-75.0); PLATELET COUNT 293 K/UL (150-450); RED BLOOD COUNT 5.24 M/UL (4.70-6.10); RED CELL DISTRIBUTION WIDTH 15.9 % (11.6-14.8); WHITE BLOOD COUNT 17.9 K/UL (4.8-10.8)
[2018-11-17 22:51] LABS: ANION GAP 12 mmol/L (5-15); BLOOD UREA NITROGEN 36 mg/dL (7-18); CALCIUM 10.2 MG/DL (8.5-10.1); CARBON DIOXIDE 25 MMOL/L (21-32); CHLORIDE 104 MMOL/L (98-107); CREATININE 1.8 MG/DL (0.55-1.30); POTASSIUM 4.8 MMOL/L (3.5-5.1); SODIUM 140 MMOL/L (136-145)
[2018-11-17 22:59] VITALS: BP 136/80
[2018-11-17 23:05] LABS: ALANINE AMINOTRANSFERASE < 6 U/L (12-78); ALBUMIN 2.8 G/DL (3.4-5.0); ALBUMIN/GLOBULIN RATIO 0.5 (1.0-2.7); ALKALINE PHOSPHATASE 101 U/L (46-116); ASPARTATE AMINO TRANSFERASE < 5 U/L (15-37); BILIRUBIN,TOTAL 0.9 MG/DL (0.2-1.0); CKMB < 0.5 NG/ML (0.0-3.6); CREATINE KINASE 139 U/L (26-308)
[2018-11-17] MEDS ORDERED: Piperacillin/Tazobactam 3.375 GM in NS 110 ML IVPB ONE (23:30)
[2018-11-17] MEDS ORDERED: Vancomycin 1.5gm/D5W 275ml 250 ML IVPB ONE (23:30)
[2018-11-18] VITALS (10 sets, daily range): BP systolic 102–150; BP diastolic 67–104
--- NOTE | 2018-11-18 | NUR ---
ED Nurse Note: ERMD at bedside for central line insertion
[2018-11-18] MEDS ORDERED: HUMALOG100 UNIT/4 SUBQ (02:09)
[2018-11-18] MEDS ORDERED: ARTIFICIAL TEA1 EAC3 OP (02:10)
[2018-11-18] MEDS ORDERED: DUONEB 0.5-3(2.53 ML HHN (02:10)
[2018-11-18] MEDS ORDERED: HEPARIN SO5000 UNIT2 SUBQ (02:11)
[2018-11-18] MEDS ORDERED: KEPPRA500 M3 ORAL (02:12)
[2018-11-18] MEDS ORDERED: MIRALAX17 G2 ORAL (02:12)
[2018-11-18] MEDS ORDERED: ZOFRAN4 M3 ORAL (02:13)
[2018-11-18] MEDS ORDERED: JANUVIA50 MG ORAL (02:14)
[2018-11-18] MEDS ORDERED: SILVADENE20 GM TP (02:14)
[2018-11-18] MEDS ORDERED: FENOFIBRATE43 MG ORAL (02:15)
[2018-11-18] MEDS ORDERED: Acetaminophen 650mg/20.3ml GT ONE (02:15)
[2018-11-18] MEDS ORDERED: ZOSYN 3.373.375 GM/1 IVPB (02:16)
--- NOTE | 2018-11-18 02:30 | NUR ---
TRANSFER TO FLOOR: Patient transferred to [facility] as ordered, per MD Perlita . Report given to JAMSHID Arzate. Belongings and medications given to receiveing RN.
--- NOTE | 2018-11-18 03:00 | NUR ---
NURSE NOTES:Received pt obtunded, respond to pain stimuli only , lower extremities flaccid. Trache to vent portex 7, on AC mode ST 130s on the monitor. Temp 99.7 pt with stage2-3 sacral and trochanter area, Rt hand skin tear and left hand, severely dry. picture taken done. TX was initiated Gt clamped. Colostomy to drain Rt abdominal side full of flatus and yellow brownish soft stool, Suctioned whitish to beige secretions moderate in amt. Cleaned up pt. Incontinent of urine, Meatal care done.
--- NOTE | 2018-11-18 03:26 | Emergency Room Report ---
History of Present Illness General Chief Complaint: Fever Source: EMS Present Illness HPI Patient presents from nursing facility with reports of fever Patient himself is not verbal Has tracheostomy and is vent dependent appears Ill There is no reports of vomiting or diarrhea History of present illness is significantly limited Symptoms are unclear of onset Allergies: Coded Allergies: AZTREONAM (Verified Allergy, Unknown, 05/13/18) Patient History Limited by: medical condition Past Medical History: see triage record Pertinent Family History: unable to obtain Reviewed Nursing Documentation: PMH: Agreed; PSxH: Agreed Nursing Documentation-PM Past Medical History: No History, Except For Hx Hypertension: Yes Hx COPD: Yes Hx Diabetes: Yes Hx Cancer: No Hx Gastrointestinal Problems: Yes Hx Neurological Problems: Yes Hx Seizures: Yes Review of Systems All Other Systems: limited - Other than the ones mentioned in the history of present illness all others are reviewed however they do stay limited due to the patient's mental status Physical Exam Vital Signs Date Time Temp Pulse Resp B/P (MAP) Pulse Ox O2 Delivery O2 Flow Rate FiO2 11/17/18 21:52 101.7 124 16 136/80 100 11/17/18 22:15 Mechanical Ventilator 40 Sp02 EP Interpretation: reviewed, normal General Appearance: no apparent distress Head: normocephalic, atraumatic ENT: dry mucus membranes Neck: supple Respiratory: no retraction, no accessory muscle use, crackles - Bilaterally Cardiovascular #1: tachycardia Gastrointestinal: soft, other - Feeding tube in place Genitourinary: other - Circumcised Musculoskeletal: other - Patient chronically debilitated extended and lower extremities does not respond to stimuli Neurologic: other - Significantly decreased GCS, patient has significant chronic illness not verbal does not follow commands Skin: other - Chronic skin breakdowns edema bilaterally Lymphatic: no adenopathy Procedures Critical Care Time Critical Care Time 50 minutes for multiple re-evaluations critical presentation concerning for cardiac cardiopulmonary arrest not include any procedural time Central Line Central Line : Consent: Emergent Central Line Lumen: triple Maximal Sterile Barrier Tech: yes cap, yes mask, yes sterile gown, yes sterile gloves, yes large sterile sheet, yes hand hygiene, yes chlorhexidine prep Central Line Postion: femoral (R) Anesthesia: Lidocaine cc's of anesthesia: 2 Complications: none Central Line Post Position: sutured Patient Tolerated: Well Complications: None Medical Decision Making Diagnostic Impression: Primary Impression: Fever Additional Impressions: Sepsis Urinary retention ER Course Patient is a fairly complex patient with multiple differential to consideration including but not limited to cardiac cardiopulmonary , infectious and vascular emergencies Patient's white blood cell count is elevated patient show signs of sepsis with fever and likely source of infection Aggressive IV hydration initiated and broad-spectrum antibiotics Patient's blood pressure remains appropriate and does not show signs of septic shock Sepsis reexamination Time:eval VS refer to nursing note cvs: Tachycardic respiratory: improved respiration peripheral pulses: 2+radial cap refill:<2 seconds skin exam: warm, dry, not mottled On further evaluation, patient reveals some fullness over the suprapubic area attempt of placing a Newberry catheter is Futile and is aborted Ultrasound does show approximately 3-400 cc of urine retained Urology is consulted for inpatient care and patient admitted for further eval Labs Test 11/17/18 22:10 White Blood Count 17.9 K/UL (4.8-10.8) Red Blood Count 5.24 M/UL (4.70-6.10) Hemoglobin 15.5 G/DL (14.2-18.0) Hematocrit 47.9 % (42.0-52.0) Mean Corpuscular Volume 91 FL (80-99) Mean Corpuscular Hemoglobin 29.5 PG (27.0-31.0) Mean Corpuscular Hemoglobin Concent 32.3 G/DL (32.0-36.0) Red Cell Distribution Width 15.9 % (11.6-14.8) Platelet Count 293 K/UL (150-450) Mean Platelet Volume 9.4 FL (6.5-10.1) Neutrophils (%) (Auto) 79.4 % (45.0-75.0) Lymphocytes (%) (Auto) 10.7 % (20.0-45.0) Monocytes (%) (Auto) 6.5 % (1.0-10.0) Eosinophils (%) (Auto) 2.2 % (0.0-3.0) Basophils (%) (Auto) 1.1 % (0.0-2.0) Sodium Level 140 MMOL/L (136-145) Potassium Level 4.8 MMOL/L (3.5-5.1) Chloride Level 104 MMOL/L (98-107) Carbon Dioxide Level 25 MMOL/L (21-32) Anion Gap 12 mmol/L (5-15) Blood Urea Nitrogen 36 mg/dL (7-18) Creatinine 1.8 MG/DL (0.55-1.30) Estimat Glomerular Filtration Rate 48.5 mL/min (>60) Glucose Level 434 MG/DL (74-106) Lactic Acid Level 1.20 mmol/L (0.4-2.0) Calcium Level 10.2 MG/DL (8.5-10.1) Total Bilirubin 0.9 MG/DL (0.2-1.0) Aspartate Amino Transf (AST/SGOT) < 5 U/L (15-37) Alanine Aminotransferase (ALT/SGPT) < 6 U/L (12-78) Alkaline Phosphatase 101 U/L (46-116) Total Creatine Kinase 139 U/L (26-308) Creatine Kinase MB < 0.5 NG/ML (0.0-3.6) Creatine Kinase MB Relative Index 0.3 Troponin I 0.000 ng/mL (0.000-0.056) Pro-B-Type Natriuretic Peptide 257 pg/mL (0-125) Total Protein 8.7 G/DL (6.4-8.2) Albumin 2.8 G/DL (3.4-5.0) Globulin 5.9 g/dL Albumin/Globulin Ratio 0.5 (1.0-2.7) Lipase 502 U/L (73-393) Rhythm Strip Diag. Results EP Interpretation: yes Rate: 120 Rhythm: no PVC's, no ectopy, other - Sinus tach Chest X-Ray Diagnostic Results Chest X-Ray Diagnostic Results : Chest X-Ray Ordered: Yes # of Views/Limited/Complete: 1 View Indication: Chest Pain EP Interpretation: Yes Interpretation: no pneumothorax, other - Left effusion, right lower atelectasis Impression: Other - Left effusion right lower atelectasis Electronically Signed by: Joey Reyes DO Last Vital Signs Date Time Temp Pulse Resp B/P (MAP) Pulse Ox O2 Delivery O2 Flow Rate FiO2 11/18/18 02:55 136 18 40 11/18/18 02:30 99.7 11/18/18 02:30 114/83 100 Mechanical Ventilator Status: improved Disposition: ADMITTED INPATIENT Condition: Critical Referrals: Sariah Bhat MD (PCP) Joey Reyes DO Nov 18, 2018 03:26
--- NOTE | 2018-11-18 03:30 | NUR ---
NURSE NOTES:Called Dr Walter vang for admission orders- awaiting for md to call back.
--- NOTE | 2018-11-18 03:45 | NUR ---
NURSE NOTES:Called Dr Walter vang for admission orders- awaiting for md to call back.
--- NOTE | 2018-11-18 04:30 | NUR ---
NURSE NOTES:Re - called Dr Walter vang.
--- NOTE | 2018-11-18 05:36 | NUR ---
NURSE NOTES: Left message to Dr. Bhat for admission order by Nursing supervisor denture department; Tim. Awaiting call back.
--- NOTE | 2018-11-18 06:04 | NUR ---
NURSE NOTES:Re - called Dr. Walter Bhat- awaiting for md to call back.
--- NOTE | 2018-11-18 07:19 | NUR ---
HAND-OFF: Report given to Camryn Palomino
--- NOTE | 2018-11-18 07:20 | NUR ---
NURSE NOTES: Received report from Jac Conner RN. Patient asleep in bed, opens eyes to pain, nonverbal, unable to follow commands and make needs known. Trach to vent with settings of AC 16, TV 600, FiO2 40%, PEEP 5, no s/s of respiratory distress noted. GT in place and flushed. Condom catheter intact and draining well. Right femoral TLC and right hand 24g saline lock patent and asymptomatic. Patient febrile at this time, cooling measures provided. Bed locked in lowest position with padded side rails up x 3. All needs attended to. Will continue to monitor.
--- NOTE | 2018-11-18 07:30 | NUR ---
NURSE NOTES: Telephone admission orders received from Dr. Sariah Bhat. Orders read back and verified.
[2018-11-18] MEDS ORDERED: Albuterol/Ipratropium 3ml neb HHN PRN (07:45)
[2018-11-18] MEDS ORDERED: Miralax 17gm pkt GT PRN (07:45)
--- NOTE | 2018-11-18 08:10 | NUR ---
NURSE NOTES: Received phone call from Dr. Rodriguez regarding patient's need for kendrick catheter, unable to insert in ED. Patient currently voiding via condom cath at this time. Received TO from Dr. Rodriguez to do a bladder scan now and at 12:00. Orders read back and verified, noted and carried out. Patient currently has 144 cc of residual in the bladder. Will continue to monitor.
--- NOTE | 2018-11-18 08:25 | NUR ---
HAND-OFF: Report given to Danuta Dove RN.
--- NOTE | 2018-11-18 08:26 | NUR ---
NURSE NOTES: RECEIVED PATIENT FROM Gary FRANK RN. HOOKED TO [employer]. TRACH TO VENT. PORTEX 7, VENT SETTINGS AC 16, TV 600, FIO2 40, PEEP 5. NO SIGNS OF DISTRESS OF THE MOMENT. GT NOTED, DRY AND INTACT. NOTED COLOSTOMY BAG, PATENT. NOTED SKIN ALTERATION. R FEMORAL TLC, PATENT AND INTACT AND R HAND G24, PATENT. CALL LIGHT WITHIN REACH. SIDE RAILS UP. BED AT LOWEST POSITION. WILL CONTINUE TO MONITOR.
[2018-11-18] MEDS: Heparin 5000 units/ml inj SUBQ SCH ×2 (09:00→21:48)
[2018-11-18] MEDS ORDERED: Vancomycin 1 GM in D5W 275 ML IVPB SCH (09:00)
[2018-11-18] MEDS ORDERED: Multivitamins W/Minerals 15 ML UDC GT SCH (09:00)
[2018-11-18] MEDS: Acetaminophen 650mg/20.3ml GT PRN ×2 (09:03→13:57)
[2018-11-18] MEDS: sitaGLIPtin 50mg tab GT SCH (09:03)
[2018-11-18] MEDS: Pantoprazole Inj IV SCH (09:04)
[2018-11-18] MEDS: Vitamin D 1000 IU Tab GT SCH (09:04)
[2018-11-18] MEDS: Artificial Tears 1.4% Op Soln BOTH EYES PRN (09:24)
--- NOTE | 2018-11-18 10:38 | Diagnostic Imaging Report ---
Indication: Shortness of breath Technique: One view of the chest Comparison: 07/28/2018 Findings: Tracheostomy, right perihilar scarring again noted. Left costophrenic angle blunting, likely likely pleural fluid, is noted, similar to the prior exam. The heart size remains borderline enlarged. Impression: Left pleural thickening versus pleural effusion Tracheostomy Right perihilar scarring or atelectasis
--- NOTE | 2018-11-18 10:44 | Pulmonolgy Critical Care Note ---
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 (6) Vegetative state (7) Diabetes mellitus Respiratory: monitor respiratory rate, adjust FIO2 Cardiac: continue to monitor HR/BP Renal: check electrolytes Infectious Disease: check cultures Gastrointestinal: continue feedings/current rate, hold feedings Hematologic: transfuse if hgb<8.5 Neurologic: PRN Ativan, PRN Morphine, keep patient comfortable Prophylaxis: Heparin Notes Reviewed: special makeup fx artist instructor, renal Discussed with: nurses, consultants, senior case managerquality assurance manager - Objective Last 24 Hour Vital Signs Date Time Temp Pulse Resp B/P (MAP) Pulse Ox O2 Delivery O2 Flow Rate FiO2 11/18/18 09:00 147 17 40 11/18/18 08:00 Mechanical Ventilator 11/18/18 08:00 103.3 145 16 112/70 (84) 99 11/18/18 08:00 40 11/18/18 07:00 140 18 40 11/18/18 06:00 100.5 130 16 102/67 (79) 100 11/18/18 05:12 132 18 40 11/18/18 04:41 Mechanical Ventilator 11/18/18 04:00 99.7 16 124/94 (104) 11/18/18 04:00 40 11/18/18 04:00 Mechanical Ventilator 11/18/18 04:00 134 11/18/18 03:00 100.0 140 16 124/94 (104) 100 11/18/18 02:55 136 18 40 11/18/18 02:30 99.7 11/18/18 02:30 99.7 134 17 114/83 100 Mechanical Ventilator 40 11/18/18 02:11 102.2 134 17 114/83 100 Mechanical Ventilator 40 11/18/18 01:10 135 16 40 11/18/18 01:00 101.5 140 18 150/104 100 Mechanical Ventilator 40 11/18/18 00:00 101.5 138 18 137/95 100 Mechanical Ventilator 40 11/17/18 23:30 136 18 40 11/17/18 22:59 101.5 138 19 136/80 100 Mechanical Ventilator 40 11/17/18 22:59 138 19 Mechanical Ventilator 40 11/17/18 22:17 138 19 40 11/17/18 22:15 138 19 Mechanical Ventilator 40 11/17/18 21:52 101.7 124 16 136/80 100 Status: obtunded Condition: critical HEENT: atraumatic Lungs: chest wall tender Heart: HR/BP unstable Abdomen: soft Extremities: no C/C/E Decubiti: location Micro: Microbiology Date/Time Source Procedure Growth Status 11/17/18 22:30 Nasal Nares Influenza Types A,B Antigen ([facility]IO) - Final Complete 11/17/18 22:30 Rectum Received Critical Care - Subjective ROS Limited/Unobtainable: Yes Condition: critical EKG Rhythm: Sinus Rhythm FI02: 40 Vent Support Breath Rate: 16 Vent Support Mode: AC Vent Tidal Volume: 600 Sputum Amount: Small PEEP: 5.0 PIP: 27 I&O: Intake and Output 11/17/18 11/18/18 19:00 07:00 Intake Total 50 ml Output Total 252 ml Balance -202 ml Intake Oral 0 ml Free Water 50 ml Output Urine Total 2 ml Stool Total 250 ml # Bowel Movements 2 CXR: trach intact, no acute infiltrate Labs: Laboratory Tests Test 11/17/18 22:10 White Blood Count 17.9 K/UL (4.8-10.8) H Red Blood Count 5.24 M/UL (4.70-6.10) Hemoglobin 15.5 G/DL (14.2-18.0) Hematocrit 47.9 % (42.0-52.0) Mean Corpuscular Volume 91 FL (80-99) Mean Corpuscular Hemoglobin 29.5 PG (27.0-31.0) Mean Corpuscular Hemoglobin Concent 32.3 G/DL (32.0-36.0) Red Cell Distribution Width 15.9 % (11.6-14.8) H Platelet Count 293 K/UL (150-450) Mean Platelet Volume 9.4 FL (6.5-10.1) Neutrophils (%) (Auto) 79.4 % (45.0-75.0) H Lymphocytes (%) (Auto) 10.7 % (20.0-45.0) L Monocytes (%) (Auto) 6.5 % (1.0-10.0) Eosinophils (%) (Auto) 2.2 % (0.0-3.0) Basophils (%) (Auto) 1.1 % (0.0-2.0) Sodium Level 140 MMOL/L (136-145) Potassium Level 4.8 MMOL/L (3.5-5.1) Chloride Level 104 MMOL/L (98-107) Carbon Dioxide Level 25 MMOL/L (21-32) Anion Gap 12 mmol/L (5-15) Blood Urea Nitrogen 36 mg/dL (7-18) H Creatinine 1.8 MG/DL (0.55-1.30) H Estimat Glomerular Filtration Rate 48.5 mL/min (>60) Glucose Level 434 MG/DL (74-106) H Lactic Acid Level 1.20 mmol/L (0.4-2.0) Calcium Level 10.2 MG/DL (8.5-10.1) H Total Bilirubin 0.9 MG/DL (0.2-1.0) Aspartate Amino Transf (AST/SGOT) < 5 U/L (15-37) L Alanine Aminotransferase (ALT/SGPT) < 6 U/L (12-78) L Alkaline Phosphatase 101 U/L (46-116) Total Creatine Kinase 139 U/L (26-308) Creatine Kinase MB < 0.5 NG/ML (0.0-3.6) Creatine Kinase MB Relative Index 0.3 Troponin I 0.000 ng/mL (0.000-0.056) Pro-B-Type Natriuretic Peptide 257 pg/mL (0-125) H Total Protein 8.7 G/DL (6.4-8.2) H Albumin 2.8 G/DL (3.4-5.0) L Globulin 5.9 g/dL Albumin/Globulin Ratio 0.5 (1.0-2.7) L Lipase 502 U/L (73-393) H Nico Goetz MD Nov 18, 2018 10:44
[2018-11-18] MEDS: Piperacillin/Tazobactam 3.375 GM in NS 110 ML IVPB SCH ×2 (10:54→21:44)
--- NOTE | 2018-11-18 11:02 | NUR ---
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 101.7 HR 124 RR 16 B/P 136/80 AC 16 TV 600 FIO2 40%PEEP 5 WBC 17.9 BUN 36 CR 1.8 BNP 257 CXR=LEFT PLEURAL THICKNESS VS LEFT PLEURAL EFFUSION IS: IVF NS BOLUS X 1 LITER VANCO IV ZOSYN IV ADMITTED TO STEP DOWN STEP DOWN STATUS
--- NOTE | 2018-11-18 11:14 | NUR ---
NURSE NOTES: STARTED AND TOLERATED FEEDING. WILL CONTINUE TO MONITOR.
--- NOTE | 2018-11-18 11:35 | NUR ---
RD ASSESSMENT & RECOMMENDATIONS SEE CARE ACTIVITY FOR COMPLETE ASSESSMENT DAILY ESTIMATED NEEDS: Needs based on Critical care, wound /71kg abw 24-30 kcals/kg 5054-3906 total kcals 1.25-2 g protein/kg 88-142 g total protein 25-30 mL/kg 6990-8244 total fluid mLs NUTRITION DIAGNOSIS: * Swallowing difficulty R/T respiratory status, as evidenced by trach/vent dep, PEG dep. * Increased kcal and protein needs r/t wound healing as evidenced by pt with sacral wound, pending eval CURRENT TF:Glucerna 1.5 @ 65ml/hr x 20 hrs ENTERAL NUTRITION RECOMMENDATIONS: Glucerna 1.5 @ 65ml/hr x 20 hrs to provide 1300ml, 1950kcal, 107g prot, 987ml free water * Rec to continue current TF order- meets 100% est kcal/prot needs * HOB over 30 degrees/ water flush per MD ADDITIONAL RECOMMENDATIONS: * Calibrated bedscale wt for accurate CBW * Monitor lytes, replete as needed * Wound healing: Add Mayur 1pkt BID, vit C 500mg QD -f/up with wound eval * Monitor BGs, need for long acting insulin for improved BG control . .
[2018-11-18 11:37] LABS: APPEARANCE,URINE SLIGHTLY CLOUDY; BILIRUBIN, URINE NEGATIVE (NEGATIVE); GLUCOSE, URINE (UA) 4+ (NEGATIVE); KETONES,URINE 1+ (NEGATIVE); LEUKOCYTE ESTERASE ,URINE 3+ (NEGATIVE); NITRITE,URINE POSITIVE (NEGATIVE); PH,URINE 5 (4.5-8.0); PROTEIN,URINE 4+ (NEGATIVE); UROBILINOGEN,URINE NORMAL MG/DL (0.0-1.0)
--- NOTE | 2018-11-18 11:45 | NUR ---
NURSE NOTES: PROVIDED COOLING BLANKET. PATIENT IS STILL FEBRILE. PATIENT KEPT CLEAN AND DRY. WILL CONTINUE TO MONITOR.
[2018-11-18 11:52] LABS: COLOR,URINE YELLOW
--- NOTE | 2018-11-18 12:30 | NUR ---
NURSE NOTES: WOUND CARE NURSE ASSESSED PATIENT. WITH P200 MATTRESS. WILL CONTINUE TO MONITOR.
[2018-11-18] MEDS ORDERED: Cefepime HCl 2 GM in D5W 55 ML IVPB SCH (13:00)
[2018-11-18] MEDS: NovoLOG Insulin Flexpen SUBQ SCH ×3 (13:28→23:44)
[2018-11-18] MEDS: levETIRAcetam 500mg/5ml Liquid GT SCH ×2 (13:51→21:45)
--- NOTE | 2018-11-18 15:10 | NUR ---
NURSE NOTES: Received report from Danuta Dove RN. Patient obtunded, opens eyes to pain, nonverbal, unable to follow commands and make needs known. Trach to vent with settings of AC 16, TV 600, FiO2 40%, PEEP 5, no s/s of respiratory distress noted. GT feeding of Glucerna 1.5 running @ 20 cc/hr, no residuals noted. HoB elevated. Condom catheter intact and draining well. Right femoral TLC infusing Zosyn 3.375g @ 27.5 cc/hr, no s/s of infiltration noted. Right hand 24g saline lock patent and asymptomatic. Patient febrile at this time with temp of 100.9F, patient on cooling blanket. Bed locked in lowest position with padded side rails up x 3. All needs attended to. Will continue to monitor.
--- NOTE | 2018-11-18 15:14 | NUR ---
HAND-OFF: Report given to Gary Whipple RN.
--- NOTE | 2018-11-18 15:43 | NUR ---
NURSE NOTES:WOUND CARE NOTES:Pt presents with Partial thickness wound L side neck under trach collar. Wound bed clean ,viable,moist edges noted. Resolving full thickness pressure injury sacrum(L)12cm x (W)11.5cm .Wound bed dark and indurated with scattered openings at sacral area and R buttocks . Wounds with biofilm easily removed with gentle friction.Wound at Sacrococcygeal area with approx 5% slough at base of wound. Minimal sanguineous exudate noted to Wound R sacrum. Resolving pressure injury to L trochanter .Wound bed moist -viable ,epithelialized borders with shearing periwound. No odor or exudate noted (L)3.5cm x (W)3cm. Reabsorbing serous blister lateral L heel.Fluctuant in center with dry brown borders without erythema R heel dry and blanchable. Tx.Plan:Cleanse Sacral wound with Saline.Apply Hydrogel to wounds sacrum .Cavilon Skin Barrier periwound.Cover with Optifoam drsg Daily and prn. Cleanse wound L trochanter with Saline.Apply Hydrogel .Cavilon skin Barrier periwound.Cover with Optifoam drsg Daily and prn. Apply Cavilon Skin Barrier to both heels .Cover with Optifoam drsg. Change weekly and prn. Cleanse L side of neck with Saline .Cover with Optifoam drsg.Change weekly and prn. Reposition at least every 2 hours or as tolerated. Off-load heels with pillow. Air fluidized mattress.
--- NOTE | 2018-11-18 17:39 | NUR ---
NURSE NOTES: Patient currently afebrile with temp of 98.3F. Cardiac rhythm also improved, patient is NSR 95 at this time on conveyor monitor. Addendum: 11/18/18 at 1740 by [facility] FRANK RN Will continue to monitor.
--- NOTE | 2018-11-18 19:21 | NUR ---
HAND-OFF: Report given to Ruth Guzman RN. Patient remains afebrile with temp of 97.1F. Cooling blanket turned off.
--- NOTE | 2018-11-18 19:22 | NUR ---
NURSE NOTES: Bedside report received from JAMSHID Arguello. Patient obtunded, opens eyes to pain, nonverbal, unable to follow commands. ekg monitor tech showing NSR, previously ST, will monitor. Trach to vent with settings of AC 16, TV 600, FiO2 40%, PEEP 5, no s/s of respiratory distress noted. GT feeding of Glucerna 1.5 running @ 20 cc/hr, 20 cc residual, GOAL 50. HoB elevated. Condom catheter intact and draining well. Right femoral TLC, asymptomatic. Right hand 24g saline lock patent and asymptomatic. Colostomy asymptomatic, emptied w/ 100 ml liquid stool. Skin is clean and dry, dressings intact. Patient afebrile at this time, patient has cooling blanket in room for previous temp. Bed locked in lowest position, padded side rails up x 3, bed alarm on, call gallardo within reach. All needs attended to. Will continue to monitor and follow plan of care.
[2018-11-18] MEDS: Vancomycin 1250mg/D5W 250ml IVPB SCH (21:44)
[2018-11-19] VITALS: BP 124/80
[2018-11-19] MEDS: Levemir Flexpen SUBQ SCH ×3 (02:21→21:26)
[2018-11-19 04:00] VITALS: BP 118/84
[2018-11-19 04:51] LABS: EOSINOPHILS % (AUTO) 5.7 % (0.0-3.0); HEMATOCRIT 43.8 % (42.0-52.0); HEMOGLOBIN 13.8 G/DL (14.2-18.0); LYMPHOCYTES % (AUTO) 12.2 % (20.0-45.0); MEAN CORPUSCULAR VOLUME 90 FL (80-99); MONOCYTES % (AUTO) 7.5 % (1.0-10.0); NEUTROPHILS % (AUTO) 73.6 % (45.0-75.0); PLATELET COUNT 262 K/UL (150-450); RED BLOOD COUNT 4.89 M/UL (4.70-6.10); RED CELL DISTRIBUTION WIDTH 15.5 % (11.6-14.8); WHITE BLOOD COUNT 14.8 K/UL (4.8-10.8)
[2018-11-19 05:06] LABS: ANION GAP 14 mmol/L (5-15); BLOOD UREA NITROGEN 35 mg/dL (7-18); CARBON DIOXIDE 20 MMOL/L (21-32); CHLORIDE 109 MMOL/L (98-107); POTASSIUM 3.5 MMOL/L (3.5-5.1); SODIUM 143 MMOL/L (136-145)
[2018-11-19 05:08] LABS: ALANINE AMINOTRANSFERASE 22 U/L (12-78); ALBUMIN 2.3 G/DL (3.4-5.0); ALKALINE PHOSPHATASE 90 U/L (46-116); AMYLASE 45 U/L (25-115); ASPARTATE AMINO TRANSFERASE 17 U/L (15-37); BILIRUBIN,DIRECT 0.1 MG/DL (0.0-0.3); BILIRUBIN,TOTAL 0.5 MG/DL (0.2-1.0)
[2018-11-19] MEDS: levETIRAcetam 500mg/5ml Liquid GT SCH ×3 (05:18→21:20)
[2018-11-19] MEDS: Piperacillin/Tazobactam 3.375 GM in NS 110 ML IVPB SCH ×3 (05:18→21:30)
[2018-11-19] MEDS: Acetaminophen 650mg/20.3ml GT PRN (05:18)
[2018-11-19] MEDS: NovoLOG Insulin Flexpen SUBQ SCH ×3 (05:26→17:09)
--- NOTE | 2018-11-19 07:12 | NUR ---
NURSE NOTES: Report given to JAMSHID GRAMAJO. VSS, NO S/S OF DISTRESS.
--- NOTE | 2018-11-19 07:20 | NUR ---
NURSE NOTES:RECEIVED REPORT FROM HEAVENLY PSYCHOLOGICAL EXAMINER OF NOC SHIFT.RECEIVED PT WITH HOB ELEVATED 45 DEGREE ,OBTUNDED TOLERATING WELL CURRENTS VENT SETTINGS ,AC 16, TV 600 PEEP 5,FIO2 40%,PT SAT IS 98%.PT ON SCHEDULE FOR CT OF ABD TODAY ,HELD GTF AT THIS TIME.PT GIVEN ALL AM MED,S VIA GT PER M.D ORDERS,TOLERATING WELL.FULL AM BODY ASSESSMENT DONE.NO ACUTE DISTRESS NOTED AT THIS TIME.WILL CONT TO MONITOR.
[2018-11-19 09:00] VITALS: BP 117/77
[2018-11-19] MEDS: sitaGLIPtin 50mg tab GT SCH (10:17)
[2018-11-19] MEDS: Vitamin D 1000 IU Tab GT SCH (10:17)
[2018-11-19] MEDS: Pantoprazole Inj IV SCH (10:18)
[2018-11-19] MEDS: Heparin 5000 units/ml inj SUBQ SCH ×2 (10:21→21:22)
--- NOTE | 2018-11-19 11:15 | History and Physical Report ---
DATE OF ADMISSION: 11/17/2018 CHIEF COMPLAINT: This is one of several admissions to [facility] of this 53-year-old patient because of sepsis. HISTORY OF PRESENT ILLNESS: The patient is a resident of an extended care facility subacute unit where he has been in stable condition over the last several months. He is known to have syndrome, but has been stable on current medication. Two days prior to the present admission, he developed fever, tachycardia, and moderate hypotension. Treatment in facility the patient with IV fluid and broad-spectrum antibiotics with ceftriaxone and the patient provisionally improved, he was transferred to [facility] and was admitted. PAST MEDICAL HISTORY: he developed respiratory failure, had to be intubated and placed on mechanical ventilation. The patient is being ventilator-dependent and fed via gastrostomy tube. He is at this time. The patient is now more than a year ventilator-dependent tracheostomy. He had multiple infections in the past with pulmonary and urinary infection, currently we are treating in this hospital. ALLERGIES: The patient is allergic to . MEDICATIONS: The patient is on: 1. Baclofen 10 mg at bedtime. 2. Levetiracetam 1000 mg q.8 h. 3. Humalog insulin with sliding scale every six hours. 4. He is on tazobactam and 240 mg IV every four hours daily. 5. daily. 6. daily. 7. . FAMILY HISTORY: He is and has no children. SOCIAL HISTORY: The patient does not smoke, drink, or use illicit drugs. REVIEW OF SYSTEMS: The patient is unable to give any information regarding his state of health. PHYSICAL EXAMINATION: VITAL SIGNS: Temperature is 124/82, his pulse is 95, respirations 16, and temperature 97.9. HEENT: Eyes were normal. Pupils were round, equal, and reactive to light. Sclerae were white. Conjunctivae were pink. Extraocular movements were normal. Temporal arteries were palpable bilaterally. There was no bilateral temporal wasting. Visual altamirano to confrontation was normal. Neglect sign was negative. ENT, mucous membranes were not dehydrated. Auditory canals were clear and tympanic membranes could not be visualized. Nasal cavity was not congested. Nasal septum was intact. Soft palate was free of ulcerations. Pharynx was clear from exudate or tonsillar hypertrophy. Uvula could not be visualized. Tongue was moist, midline, and normally palpated. NECK: Supple. There was no goiter. No mass. No lymphadenopathy. There was no JVD. No bruits. Carotid upstroke was 2+. LUNGS: Clear. HEART: PMI was in fifth left intercostal space in midclavicular line. There was normal S1 and normal S2. There was no murmur. No arrhythmia. No S3. No S4. No pericardial rub. ABDOMEN: Soft and nontender without organomegaly. There were no masses palpable. Normal bowel sounds without bruits. There was no guarding. No rebound tenderness. No ascites. No hernia. No CVA tenderness. Liver span was 8 cm, smooth and nontender. Gastrostomy site was clean. EXTREMITIES: Warm without cyanosis, clubbing, or edema. LABORATORY AND DIAGNOSTIC DATA: Hemoglobin is 15.5, hematocrit 47.9 with MCV of 91, WBC of 17.9, and platelets are 293,000. His BUN and creatinine are 36 and 1.8 respectively. His sodium is 140, potassium 4.3, chloride 104, CO2 of 25, his glucose is 434, and his calcium is 10.2. ProBNP was 257. Total protein is 8.7. His albumin is 2.8. His lipase was 502. Troponin was not detected. IMPRESSION: 1. The patient has acute pancreatitis, cannot explain the clinical picture. He is status post cerebral hemorrhage with severe encephalopathy. 2. The patient is ventilator-dependent. We will continue the same ventilator setting. Continue with albuterol sulfate and ipratropium bromide inhalation therapy therapy. 3. . The patient is on Zosyn, given 3.375 mg IV piggyback q.6 h. and vancomycin 750 mg IV piggyback q.24 h. Repeat laboratory tests will be done in the a.m. and Pulmonary consulted and management of this case. as well. Sariah Bhat M.D. DR: MEGAN JOB#: [id number] CC:
--- NOTE | 2018-11-19 11:35 | NUR ---
RADIOLOGY DEPT CHEST X-RAY DONE.-P.DYE
--- NOTE | 2018-11-19 11:56 | Pulmonolgy Critical Care Note ---
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 (6) Vegetative state (7) Diabetes mellitus Respiratory: monitor respiratory rate, adjust FIO2, CXR Cardiac: continue to monitor HR/BP Renal: F/U I&O, keep IV fluid, check electrolytes Infectious Disease: check cultures, continue antibiotics Gastrointestinal: continue feedings/current rate Endocrine: check TSH Hematologic: monitor H/H, transfuse if hgb<8.5 Neurologic: PRN Ativan, PRN Morphine, keep patient comfortable Affect: PRN ativan Prophylaxis: Protonix, Heparin Time Spent (Minutes): 40 Notes Reviewed: medical physics professor, cardio, renal Discussed with: nurses, consultants, manager of caseresidential case manager - Objective Last 24 Hour Vital Signs Date Time Temp Pulse Resp B/P (MAP) Pulse Ox O2 Delivery O2 Flow Rate FiO2 11/19/18 11:15 129 18 40 11/19/18 09:25 124 18 40 11/19/18 09:00 97.2 109 16 117/77 (90) 100 11/19/18 08:00 112 11/19/18 08:00 Mechanical Ventilator 11/19/18 08:00 40 11/19/18 07:16 112 16 40 11/19/18 05:48 98.7 11/19/18 05:04 119 18 40 11/19/18 04:00 Mechanical Ventilator 11/19/18 04:00 40 11/19/18 04:00 101.5 130 17 118/84 (95) 99 11/19/18 04:00 128 11/19/18 03:09 122 18 40 11/19/18 00:44 93 18 40 11/19/18 00:00 Mechanical Ventilator 11/19/18 00:00 100.2 121 16 124/80 (95) 99 11/19/18 00:00 113 11/18/18 22:40 112 19 40 11/18/18 21:53 94 19 40 11/18/18 20:00 97.9 95 16 134/82 (99) 99 11/18/18 20:00 93 11/18/18 20:00 Mechanical Ventilator 11/18/18 20:00 40 11/18/18 18:40 94 18 40 11/18/18 17:26 97 16 40 11/18/18 16:00 111 11/18/18 16:00 99.3 111 16 119/90 (100) 100 11/18/18 16:00 40 11/18/18 16:00 Mechanical Ventilator 11/18/18 15:28 113 16 40 11/18/18 13:25 123 17 40 11/18/18 12:00 134 11/18/18 12:00 40 11/18/18 12:00 102.4 138 16 111/78 (89) 100 11/18/18 12:00 Mechanical Ventilator Status: obtunded Condition: critical HEENT: atraumatic Neck: trach Lungs: rhonchi Heart: HR/BP stable Abdomen: soft, feeding tube Extremities: edema Decubiti: stage Micro: Microbiology Date/Time Source Procedure Growth Status 11/17/18 22:10 Blood Blood Culture - Preliminary NO GROWTH AFTER 24 HOURS Resulted 11/17/18 22:10 Blood Blood Culture - Preliminary NO GROWTH AFTER 24 HOURS Resulted 11/17/18 22:30 Nasal Nares Influenza Types A,B Antigen (CHIO) - Final Complete 11/18/18 09:00 Urine,Clean Catch Urine Culture - Preliminary Gram Negative Bacillus 1 Resulted 11/17/18 22:30 Rectum Received Accucheck: 335 Critical Care - Subjective ROS Limited/Unobtainable: No Condition: critical EKG Rhythm: Sinus Rhythm FI02: 40 Vent Support Breath Rate: 16 Vent Support Mode: AC Vent Tidal Volume: 600 Sputum Amount: Small PEEP: 5.0 PIP: 29 Tube Feeding Amount: 50 I&O: Intake and Output 11/18/18 11/19/18 19:00 07:00 Intake Total 460.0 ml 550 ml Output Total 800 ml 450 ml Balance -340.0 ml 100 ml Free Water 200 ml 90 ml IV Total 110.0 ml Tube Feeding 150 ml 460 ml Output Urine Total 500 ml 200 ml Stool Total 300 ml 250 ml # Bowel Movements 100 CXR: no change Labs: Laboratory Tests Test 11/19/18 03:30 White Blood Count 14.8 K/UL (4.8-10.8) H Red Blood Count 4.89 M/UL (4.70-6.10) Hemoglobin 13.8 G/DL (14.2-18.0) L Hematocrit 43.8 % (42.0-52.0) Mean Corpuscular Volume 90 FL (80-99) Mean Corpuscular Hemoglobin 28.3 PG (27.0-31.0) Mean Corpuscular Hemoglobin Concent 31.6 G/DL (32.0-36.0) L Red Cell Distribution Width 15.5 % (11.6-14.8) H Platelet Count 262 K/UL (150-450) Mean Platelet Volume 11.7 FL (6.5-10.1) H Neutrophils (%) (Auto) 73.6 % (45.0-75.0) Lymphocytes (%) (Auto) 12.2 % (20.0-45.0) L Monocytes (%) (Auto) 7.5 % (1.0-10.0) Eosinophils (%) (Auto) 5.7 % (0.0-3.0) H Basophils (%) (Auto) 1.0 % (0.0-2.0) Erythrocyte Sedimentation Rate 18 MM/HR (0-20) Sodium Level 143 MMOL/L (136-145) Potassium Level 3.5 MMOL/L (3.5-5.1) Chloride Level 109 MMOL/L (98-107) H Carbon Dioxide Level 20 MMOL/L (21-32) L Anion Gap 14 mmol/L (5-15) Blood Urea Nitrogen 35 mg/dL (7-18) H Creatinine 2.0 MG/DL (0.55-1.30) H Estimat Glomerular Filtration Rate 42.9 mL/min (>60) Glucose Level 332 MG/DL (74-106) #H Hemoglobin A1c 7.9 % (4.3-6.0) H Calcium Level 10.0 MG/DL (8.5-10.1) Total Bilirubin 0.5 MG/DL (0.2-1.0) Direct Bilirubin 0.1 MG/DL (0.0-0.3) Aspartate Amino Transf (AST/SGOT) 17 U/L (15-37) Alanine Aminotransferase (ALT/SGPT) 22 U/L (12-78) Alkaline Phosphatase 90 U/L (46-116) Total Protein 8.0 G/DL (6.4-8.2) Albumin 2.3 G/DL (3.4-5.0) L Amylase Level 45 U/L (25-115) Lipase 277 U/L (73-393) Nico Goetz MD Nov 19, 2018 11:56
[2018-11-19 12:00] VITALS: BP 118/83
--- NOTE | 2018-11-19 12:00 | NUR ---
NURSE NOTES: PT WITH HIGH TEMP 100.4 AX,GIVEN B.B APPLIED COOLING MEASURES AND REGULATED ROOM TEMP.ROOM TEMP WAS VERY HOT,[facility].WILL CONT TO MONITOR.
--- NOTE | 2018-11-19 12:02 | Diagnostic Imaging Report ---
Indication: Dyspnea Technique: One view of the chest Comparison: 11/17/2018 Findings: Left lateral pleural thickening versus fluid is unchanged. Tracheostomy remains. The lungs and right pleural space remain clear. Findings are unchanged Impression: Unchanged, over 2 days, findings as above.
--- NOTE | 2018-11-19 15:00 | NUR ---
NURSE NOTES: REASSESSED TEMP 97.8 AX.PT ESCORTED TO CT-ABD ACCOMPANIED WITH MONICA BALES AND RJ [employer] CT STAFF.PT TOLERATED WELL PROCEDURE.ESCORTED PT BACK TO HIS ROOM.NO ACUTE DISTRESS NOTED AT THIS TIME.WILL CONT TO MONITOR.
[2018-11-19 16:00] VITALS: BP 119/83
--- NOTE | 2018-11-19 16:28 | Diagnostic Imaging Report ---
Indication: Abdominal pain Technique: Spiral acquisitions obtained through the abdomen and pelvis. No patient received enteric contrast. No IV contrast utilized, per referring physician request.. Multiplanar reconstructions were generated. Total dose length product 1050.38 mGycm. CTDIvol(s) 16.58 mGy. Dose reduction achieved using automated exposure control Comparison: 05/14/2018 Findings: Lack of IV contrast limits assessment of the solid organs. The liver demonstrates multiple irregular areas of fat deposition. One such area is seen in the posteromedial subcapsular region of segment 8. Contiguous with this is an area coursing through the medial parenchyma of segment 8 contiguous with a subcapsular area under the dome of the right hepatic lobe. Smaller but similar-appearing area is seen inferiorly and posteriorly in segment 3. Triangular area of hypoattenuation is seen posterolaterally in segment 7. This demonstrates slightly higher attenuation than fat, however. These findings are not evident on the prior exam The pancreatic head is prominent. Inflammatory changes are seen within the mesenteric root inferior to the pancreas and coursing along the anterior right Gerota's fascia. No discrete pancreatic mass is demonstrated The gallbladder, bile ducts are unremarkable. The spleen demonstrates a central subcentimeter low-attenuation lesion which is unchanged in size. It is mildly enlarged, measuring 13 cm long axis dimension, slightly larger than on the prior exam. The bilateral adrenals are unremarkable. The right kidney is mildly enlarged. There is a 3 mm calculus at the right ureterovesical junction. There is only minimal hydronephrosis despite this, and no gisselle hydroureter. There is some perinephric fat stranding, which appears similar in extent to the previous exam. Multiple intrarenal calyceal calculi are noted, which are slightly more numerous than on the prior exam; in particular, new calculi are seen in the upper pole. The bladder wall is equivocally minimally thickened. Previously demonstrated Newberry catheter is no longer evident. A staghorn calculus is again seen within the left renal pelvis, and multiple intrarenal calyceal calculi are present on the left. A cyst is seen in the upper pole region. The left kidney is somewhat atrophic. No pelvic mass or adenopathy. The prostate demonstrates some central low attenuation, also evident previously. There is a double barrel proximal transverse colostomy in the right lower quadrant. Contrast is seen throughout the entirety of the small bowel and colon and is seen within the colostomy bag. The appendix is contiguous with some of the inflammatory changes described above, but is normal in caliber and fills with contrast. No evidence of diverticulosis or diverticulitis. No small bowel distention. No free or loculated intraperitoneal gas is evident. A small superficial skin defect is seen in the pubic region just to the right of midline. There is a right femoral central venous catheter in place. The distal esophagus is unremarkable. The stomach demonstrates a gastrostomy tube in good position, also evident previously. The duodenum demonstrates some wall thickening, likely reactive related to the adjacent peripancreatic inflammation. Pulmonary parenchymal consolidation and atelectasis are seen in the visualized portions of both lower lobes. The bones demonstrate degenerative spondylosis changes. Impression: Positive for 3 mm distal right ureteral calculus at the ureterovesical junction. Only minimal resultant hydronephrosis. Renal enlargement and perinephric fat stranding could be related to this but is similar to the prior exam and could be baseline for this patient Bilateral intrarenal calculi Somewhat atrophic left kidney, containing a large staghorn calculus and multiple intrarenal calyceal calculi, also previously described Prominent pancreatic head. Inflammatory changes within the mesenteric root inferior to the pancreas and phlegmon/fluid coursing along Gerota's fascia on the right anteriorly. This is highly suggestive of acute pancreatitis Very unusual appearance to the liver, with multiple areas of fatty attenuation in an irregular but geographic distribution. Most likely, this represents a very unusual pattern of geographic intense hepatic fat deposition. Metastatic liposarcoma could conceivably have this appearance as well, although the distribution is not particularly masslike. Ultrasound and/or contrast MRI may be useful to better characterize as clinically indicated Small superficial skin defect in the pubic region just to the right of midline. This should be clinically apparent Bilateral basilar pulmonary parenchymal consolidation and atelectasis Borderline splenomegaly Stable small central splenic lesion, probably a cyst Gastrostomy Right femoral central line in good position Right upper quadrant transverse colostomy and mucous fistula, also previously reported Left renal cyst, degenerative spondylosis incidentally noted Findings discussed by phone with Dr. Bhat at the time of interpretation The CT scanner at [facility] is accredited by the [employer] and the scans are performed using protocols designed to limit radiation exposure to as low as reasonably achievable to attain images of sufficient resolution adequate for diagnostic evaluation.
--- NOTE | 2018-11-19 19:00 | NUR ---
HAND-OFF: Report given to .Heide BREEN.
--- NOTE | 2018-11-19 19:01 | NUR ---
NURSE NOTES: Bedside report received from JAMSHID Hallman. Patient obtunded, opens eyes to pain, nonverbal, unable to follow commands. ekg monitor showing ST, will monitor. Trach to vent with settings of AC 16, TV 600, FiO2 40%, PEEP 5, no s/s of respiratory distress noted. GT feeding of Glucerna 1.5 running @ 50 cc/hr, GOAL 65; blood sugar very elevated. MD aware. HoB elevated. Condom catheter intact and draining well. Right femoral TLC, asymptomatic. Right hand 24g saline lock patent and asymptomatic. Colostomy asymptomatic, draining. Skin is clean and dry, dressings intact. Patient afebrile at this time, patient has cooling blanket in room for previous temp. Bed locked in lowest position, padded side rails up x 3, bed alarm on, call gallardo within reach. All needs attended to. Will continue to monitor and follow plan of care.
[2018-11-19 20:00] VITALS: BP 117/73
[2018-11-19] MEDS: Vancomycin 1250mg/D5W 250ml IVPB SCH (21:19)
[2018-11-20] VITALS: BP 117/70
[2018-11-20] MEDS: NovoLOG Insulin Flexpen SUBQ SCH ×6 (00:02→20:14)
[2018-11-20 04:00] VITALS: BP 121/80
[2018-11-20 05:45] LABS: BASOPHILS % (AUTO) 0.5 % (0.0-2.0); EOSINOPHILS % (AUTO) 7.5 % (0.0-3.0); HEMATOCRIT 41.6 % (42.0-52.0); HEMOGLOBIN 13.2 G/DL (14.2-18.0); MEAN CORPUSCULAR VOLUME 90 FL (80-99); MONOCYTES % (AUTO) 6.7 % (1.0-10.0); NEUTROPHILS % (AUTO) 65.4 % (45.0-75.0); PLATELET COUNT 249 K/UL (150-450); RED BLOOD COUNT 4.64 M/UL (4.70-6.10); RED CELL DISTRIBUTION WIDTH 15.6 % (11.6-14.8); WHITE BLOOD COUNT 11.3 K/UL (4.8-10.8)
[2018-11-20] MEDS: Piperacillin/Tazobactam 3.375 GM in NS 110 ML IVPB SCH ×3 (05:51→21:27)
[2018-11-20] MEDS: levETIRAcetam 500mg/5ml Liquid GT SCH ×3 (05:51→21:27)
[2018-11-20 06:32] LABS: ALBUMIN 2.4 G/DL (3.4-5.0); ALBUMIN/GLOBULIN RATIO 0.4 (1.0-2.7); ALKALINE PHOSPHATASE 84 U/L (46-116); ANION GAP 12 mmol/L (5-15); BILIRUBIN,TOTAL 0.5 MG/DL (0.2-1.0); BLOOD UREA NITROGEN 33 mg/dL (7-18); CALCIUM 9.9 MG/DL (8.5-10.1); CARBON DIOXIDE 23 MMOL/L (21-32); CHLORIDE 111 MMOL/L (98-107); CREATININE 1.6 MG/DL (0.55-1.30); POTASSIUM 3.4 MMOL/L (3.5-5.1); SODIUM 146 MMOL/L (136-145)
--- NOTE | 2018-11-20 07:21 | NUR ---
HAND-OFF: Report given to JAMSHID PORTER.
--- NOTE | 2018-11-20 07:31 | Progress Note ---
DATE: 11/19/2018 NOTE: POOR AUDIO SUBJECTIVE: The patient's fever resolved, but remained tachycardic. PHYSICAL EXAMINATION: VITAL SIGNS: Blood pressure 113/73, his pulse is 114, respirations 18, and temperature 98. HEENT: Eyes were normal. ENT, mucous membranes were moist and intact. NECK: Supple with no JVD without lymph nodes. Tracheostomy site is clean. Oral cavity is open and tongue is protruded. movement. LUNGS: Clear. HEART: Normal sounds with regular beats. ABDOMEN: Soft and nontender with normal bowel sounds. EXTREMITIES: Warm without cyanosis, clubbing, or edema. LABORATORY AND DIAGNOSTIC DATA: Hemoglobin is 13.8, hematocrit 33.8 with MCV of 90, WBC of 14.8, and platelets 262,000. His BUN and creatinine are 35 and 2.0 respectively. Sodium is 143, potassium 3.5, chloride 109, and CO2 is 20. Glucose is 332. His glycohemoglobin level is 7.9. Creatinine 1.2. IMAGING STUDY: CT scan of the abdomen and pelvis is without any significant suspicion of pancreatitis, and at this time, I discussed . CT scan of the abdomen without contrast revealed suspect of being fatty liver abdominal ultrasound will be ordered to identify . The patient has acute pancreatitis inferior head of the pancreas with no pelvic mass. Because of pancreatitis, was identified. PLAN: The abdominal pelvic ultrasound will be ordered as well and intraabdominal ultrasound by the exercise manager. Repeat laboratory tests will be done in the a.m. Sariah Bhat M.D. DR: KETAN JOB#: [id number] CC:
--- NOTE | 2018-11-20 07:35 | NUR ---
NURSE NOTES: Received report from Ruth Guzman RN. Patient obtunded, opens eyes to pain, nonverbal, unable to follow commands and make needs known. Trach to vent with settings of AC 16, TV 600, FiO2 40%, PEEP 5, no s/s of respiratory distress noted. GT feeding of Glucerna 1.5 running @ 60 cc/hr, no residuals noted, raised to goal of 65 cc/hr. HoB elevated. Condom catheter intact and draining well. Right femoral TLC infusing Zosyn 3.375g @ 27.5 cc/hr, no s/s of infiltration noted. Right hand 24g saline lock patent and asymptomatic. Patient afebrile at this time. Bed locked in lowest position with padded side rails up x 3. All needs attended to. Will continue to monitor.
[2018-11-20 07:53] LABS: ALANINE AMINOTRANSFERASE 33 U/L (12-78); ASPARTATE AMINO TRANSFERASE 51 U/L (15-37)
[2018-11-20 08:00] VITALS: BP 121/72
[2018-11-20] MEDS: Vitamin D 1000 IU Tab GT SCH (08:32)
[2018-11-20] MEDS: sitaGLIPtin 50mg tab GT SCH (08:32)
[2018-11-20] MEDS: Pantoprazole Inj IV SCH (08:32)
[2018-11-20] MEDS: Heparin 5000 units/ml inj SUBQ SCH ×2 (08:33→20:16)
[2018-11-20] MEDS: Levemir Flexpen SUBQ SCH ×2 (08:34→20:15)
--- NOTE | 2018-11-20 10:56 | Pulmonolgy Critical Care Note ---
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 (6) Vegetative state (7) Diabetes mellitus Respiratory: monitor respiratory rate, adjust FIO2, CXR Cardiac: continue pressors, continue to monitor HR/BP Renal: F/U I&O, keep IV fluid Infectious Disease: check cultures Gastrointestinal: hold feedings Endocrine: check TSH Hematologic: monitor H/H, transfuse if hgb<8.5 Neurologic: PRN Morphine, keep patient comfortable Prophylaxis: Protonix, Heparin Notes Reviewed: pattern worker, renal Discussed with: nurses, consultants, case therapistconcierge manager - Objective Last 24 Hour Vital Signs Date Time Temp Pulse Resp B/P (MAP) Pulse Ox O2 Delivery O2 Flow Rate FiO2 11/20/18 09:30 110 18 40 11/20/18 08:00 Mechanical Ventilator 11/20/18 08:00 40 11/20/18 08:00 98.1 117 18 121/72 (88) 100 11/20/18 06:53 115 19 40 11/20/18 04:56 107 17 40 11/20/18 04:00 Mechanical Ventilator 11/20/18 04:00 98.1 111 18 121/80 (94) 100 11/20/18 04:00 40 11/20/18 04:00 106 11/20/18 02:57 110 17 40 11/20/18 00:55 111 19 40 11/20/18 00:00 Mechanical Ventilator 11/20/18 00:00 97.9 113 18 117/70 (86) 100 11/20/18 00:00 112 11/19/18 23:03 112 17 40 11/19/18 21:58 116 22 40 11/19/18 20:00 40 11/19/18 20:00 98.0 114 18 117/73 (88) 100 11/19/18 20:00 114 11/19/18 20:00 Mechanical Ventilator 11/19/18 19:05 117 18 40 11/19/18 17:00 115 18 40 11/19/18 16:00 97.8 2 17 119/83 (95) 100 11/19/18 16:00 Mechanical Ventilator 11/19/18 16:00 40 11/19/18 16:00 101 11/19/18 12:00 122 11/19/18 12:00 40 11/19/18 12:00 Mechanical Ventilator 11/19/18 12:00 100.6 122 17 118/83 (95) 100 11/19/18 11:15 129 18 40 Status: awake Condition: critical Neck: full ROM Lungs: chest wall tender Heart: HR/BP unstable, regular Abdomen: non-tender Decubiti: location, stage Micro: Microbiology Date/Time Source Procedure Growth Status 11/17/18 22:10 Blood Blood Culture - Preliminary NO GROWTH AFTER 48 HOURS Resulted 11/17/18 22:10 Blood Blood Culture - Preliminary NO GROWTH AFTER 48 HOURS Resulted 11/17/18 22:30 Nasal Nares MRSA Culture - Final NO METHICILLIN RESISTANT STAPH AUREUS... Complete 11/17/18 22:30 Nasal Nares Influenza Types A,B Antigen ([facility]) - Final Complete 11/18/18 09:00 Urine,Clean Catch Urine Culture - Final Pseudomonas Aeruginosa Complete 11/17/18 22:30 Rectum VRE Culture - Final Enterococcus Faecium - Vre Complete Accucheck: 355 Critical Care - Subjective ROS Limited/Unobtainable: No Condition: critical EKG Rhythm: Sinus Rhythm FI02: 40 Vent Support Breath Rate: 16 Vent Support Mode: AC Vent Tidal Volume: 600 Sputum Amount: Small PEEP: 5.0 PIP: 30 Tube Feeding Amount: 60 I&O: Intake and Output 11/19/18 11/20/18 19:00 07:00 Intake Total 960.0 ml 1030.0 ml Output Total 750 ml 1400 ml Balance 210.0 ml -370.0 ml Free Water 150 ml 60 ml IV Total 110.0 ml 360.0 ml Tube Feeding 350 ml 610 ml Other 350 ml Output Urine Total 250 ml 1000 ml Stool Total 500 ml 400 ml CXR: no new changes Labs: Laboratory Tests Test 11/19/18 20:55 11/20/18 04:00 Vancomycin Level Trough 14.8 ug/mL (5.0-12.0) H White Blood Count 11.3 K/UL (4.8-10.8) H Red Blood Count 4.64 M/UL (4.70-6.10) L Hemoglobin 13.2 G/DL (14.2-18.0) L Hematocrit 41.6 % (42.0-52.0) L Mean Corpuscular Volume 90 FL (80-99) Mean Corpuscular Hemoglobin 28.5 PG (27.0-31.0) Mean Corpuscular Hemoglobin Concent 31.8 G/DL (32.0-36.0) L Red Cell Distribution Width 15.6 % (11.6-14.8) H Platelet Count 249 K/UL (150-450) Mean Platelet Volume 11.1 FL (6.5-10.1) H Neutrophils (%) (Auto) 65.4 % (45.0-75.0) Lymphocytes (%) (Auto) 20.0 % (20.0-45.0) Monocytes (%) (Auto) 6.7 % (1.0-10.0) Eosinophils (%) (Auto) 7.5 % (0.0-3.0) H Basophils (%) (Auto) 0.5 % (0.0-2.0) Sodium Level 146 MMOL/L (136-145) H Potassium Level 3.4 MMOL/L (3.5-5.1) L Chloride Level 111 MMOL/L (98-107) H Carbon Dioxide Level 23 MMOL/L (21-32) Anion Gap 12 mmol/L (5-15) Blood Urea Nitrogen 33 mg/dL (7-18) H Creatinine 1.6 MG/DL (0.55-1.30) H Estimat Glomerular Filtration Rate 55.5 mL/min (>60) Glucose Level 253 MG/DL (74-106) H Calcium Level 9.9 MG/DL (8.5-10.1) Phosphorus Level 1.0 MG/DL (2.5-4.9) L Magnesium Level 2.2 MG/DL (1.8-2.4) Total Bilirubin 0.5 MG/DL (0.2-1.0) Aspartate Amino Transf (AST/SGOT) 51 U/L (15-37) H Alanine Aminotransferase (ALT/SGPT) 33 U/L (12-78) Alkaline Phosphatase 84 U/L (46-116) Total Protein 7.9 G/DL (6.4-8.2) Albumin 2.4 G/DL (3.4-5.0) L Globulin 5.5 g/dL Albumin/Globulin Ratio 0.4 (1.0-2.7) L Nico Goetz MD Nov 20, 2018 10:56
[2018-11-20 12:00] VITALS: BP 110/76
--- NOTE | 2018-11-20 12:08 | NUR ---
NURSE NOTES: Patient noted with BS 406 during routine q6hr accu-check. Per protocol, 16 units of novolog were give subcutaneously and result was reported to MD. Received telephone order to give insulin 20 units IV and change accu-check to q4hr, no lab draw. Orders read back and verified. Awaiting pharmacy to prepare meds. Will continue to monitor.
[2018-11-20] MEDS ORDERED: Insulin Human Regular 100units/ml 3ml IV SCH (13:00)
--- NOTE | 2018-11-20 13:26 | NUR ---
NURSE NOTES: Patient's BS 308 now. Insulin 20 units IV x 1 given and novolog 12 units given subcutaneously per protocol. Will continue to monitor.
[2018-11-20] MEDS ORDERED: NS 275ml ONE (14:05)
[2018-11-20] MEDS ORDERED: Tubing IV Secondary IV ONE (14:05)
[2018-11-20 16:00] VITALS: BP 113/80
--- NOTE | 2018-11-20 17:01 | NUR ---
NURSE NOTES: Patient's BS is 186. Due novolog given per protocol.
--- NOTE | 2018-11-20 19:18 | NUR ---
HAND-OFF: Report given to Esau Murray RN.
--- NOTE | 2018-11-20 19:20 | NUR ---
NURSE NOTES: Received report from Saundra RN, pt. in bed obtunded, no signs or symptoms of acute cardiac or respiratory distress noted, bed in lowest position and call light within easy reach, bed alarm on, side rails up x's3, safety brakes engaged, pt. appears to be tolerating current vent settings well- AC16, TV 600, Fio2 @40% and PEEP of 5- no distress noted, G tube feeding running Glucerna 1.5 at 65cc/hr- no residual noted, Colostomy intact and running to gravity, Newberry intact and draining to gravity, dressings dry and intact, rt. femoral TLC intact and patent, Rt. hand 24G- iv intact and patent, safety measures continued, will continue with plan of care.
[2018-11-20 20:00] VITALS: BP 107/81
[2018-11-20] MEDS: Vancomycin 1250mg/D5W 250ml IVPB SCH (20:12)
[2018-11-21] VITALS: BP 119/84
[2018-11-21] MEDS: NovoLOG Insulin Flexpen SUBQ SCH ×6 (00:59→20:43)
--- NOTE | 2018-11-21 03:45 | Progress Note ---
DATE: 11/20/2018 SUBJECTIVE: The patient is awake, alert, afebrile, and hemodynamically stable. PHYSICAL EXAMINATION: VITAL SIGNS: Blood pressure 107/80, pulse is 105, respirations 16, and temperature 97.9. HEENT: Eyes were normal. ENT, mucous membranes were moist and intact. NECK: Supple with no JVD without lymph nodes. Tracheostomy site is clean. LUNGS: Clear without rhonchi, rales, or wheezing. Secretions are small, thin, and hodgson. HEART: Normal sounds with regular beats. There is no S3, S4, or pericardial rub. ABDOMEN: Soft and nontender with normal bowel sounds. Gastrostomy site is clean. EXTREMITIES: Warm without cyanosis, clubbing, or edema. LABORATORY DATA: His hemoglobin is 13.2, hematocrit 41.3 with MCV of 90, WBC of 11.3, and platelets 249,000. BUN and creatinine is 33 and 1.6 respectively. It was 35 and 2.0 on 11/19/2017. His sodium is 146, potassium 3.4, chloride 111, and CO2 is 23. His phosphorus is 2.3. His magnesium is 2.5. Repeat laboratory tests will be done in the a.m. Sariah Bhat M.D. DR: AUSTEN JOB#: [id number] CC:
[2018-11-21 04:00] VITALS: BP 107/77
[2018-11-21] MEDS: Piperacillin/Tazobactam 3.375 GM in NS 110 ML IVPB SCH ×3 (05:03→23:00)
[2018-11-21] MEDS: levETIRAcetam 500mg/5ml Liquid GT SCH ×3 (05:05→21:09)
[2018-11-21 05:34] LABS: BASOPHILS % (AUTO) 1.3 % (0.0-2.0); EOSINOPHILS % (AUTO) 8.1 % (0.0-3.0); HEMOGLOBIN 12.5 G/DL (14.2-18.0); LYMPHOCYTES % (AUTO) 23.5 % (20.0-45.0); MEAN CORPUSCULAR VOLUME 91 FL (80-99); MONOCYTES % (AUTO) 7.9 % (1.0-10.0); NEUTROPHILS % (AUTO) 59.2 % (45.0-75.0); PLATELET COUNT 243 K/UL (150-450); RED CELL DISTRIBUTION WIDTH 15.7 % (11.6-14.8); WHITE BLOOD COUNT 9.2 K/UL (4.8-10.8)
--- NOTE | 2018-11-21 06:00 | Progress Note ---
DATE: 11/20/2018 ADDENDUM IMPRESSION: The patient with acute pancreatitis. It was identified also on CT scan of the abdomen and pelvis. The patient is NPO. His amylase is and lipase is 277. His lactic acid is 7.9. His sodium is 143, potassium is . His SGOT is 61 and SGPT is 33. The alkaline phosphatase is 84. PLAN: His abdominal CT scan has been described yesterday. Repeat laboratory tests will be done in the a.m. Sariah Bhat M.D. DR: KETAN JOB#: [id number] CC:
[2018-11-21 06:12] LABS: ALANINE AMINOTRANSFERASE 26 U/L (12-78); ALBUMIN 2.4 G/DL (3.4-5.0); ALBUMIN/GLOBULIN RATIO 0.4 (1.0-2.7); ALKALINE PHOSPHATASE 90 U/L (46-116); ANION GAP 15 mmol/L (5-15); ASPARTATE AMINO TRANSFERASE 49 U/L (15-37); BILIRUBIN,TOTAL 0.5 MG/DL (0.2-1.0); BLOOD UREA NITROGEN 32 mg/dL (7-18); CALCIUM 9.7 MG/DL (8.5-10.1); CARBON DIOXIDE 21 MMOL/L (21-32); CHLORIDE 115 MMOL/L (98-107); CREATININE 1.8 MG/DL (0.55-1.30); PHOSPHORUS 1.3 MG/DL (2.5-4.9); POTASSIUM 4.3 MMOL/L (3.5-5.1); SODIUM 151 MMOL/L (136-145)
--- NOTE | 2018-11-21 07:10 | NUR ---
NURSE NOTES: RECEIVED BED SIDE REPORT FROM CLEMENTINA COAT JOINER LOCKSTITCH OF NOC SHIFT.RECEIVED PT WITH HOB ELEVATED 45 DEGREE OBTUNDED TRACH TO VENT TOLERATING WELL CURRENTS VENT SETTINGS.RENDERED TRACH CARE AND ORAL HYGIENE,SX,D LG AMT OF WHITE TICK SECRETIONS .PT RECEIVING GTF GLUCERNA 1.5 @ 65CC/HRS ,NO RESIDUAL TOLERATING WELL.FULL BODY ASSESSMENT DONE.PT REPOSITIONED Q 2HRS TO PROVIDE COMFORT AND TO PREVENT FURTHER SKIN BREAK DOWN .WILL CONT TO MONITOR.
[2018-11-21 08:00] VITALS: BP 124/83
--- NOTE | 2018-11-21 09:34 | NUR ---
*-* NO INSURANCE INFORMATION IN THE BAR TO SEND CLINICALS OR REVIEWS *-*
[2018-11-21] MEDS: Levemir Flexpen SUBQ SCH ×2 (10:17→20:45)
[2018-11-21] MEDS: Heparin 5000 units/ml inj SUBQ SCH ×2 (10:19→20:44)
[2018-11-21] MEDS: sitaGLIPtin 50mg tab GT SCH (10:20)
[2018-11-21] MEDS: Vitamin D 1000 IU Tab GT SCH (10:21)
--- NOTE | 2018-11-21 11:12 | NUR ---
BILINGUAL RECRUITERHUMID SYSTEM OPERATOR SI; SEPSIS,HYPERNATREMIA TRACH/VENT T. 99.3 HR 113 RR 18 B/P 124/83 NA 151 BUN 32 CR 1.8 AST 49 IS: ZOSYN IV ALB HHN PREVACID GT STEP DOWN STATUS
--- NOTE | 2018-11-21 11:34 | NUR ---
RD ASSESSMENT & RECOMMENDATIONS SEE CARE ACTIVITY FOR COMPLETE ASSESSMENT DAILY ESTIMATED NEEDS: Needs based on Critical care, wound /71kg abw 22-30 kcals/kg 6437-2033 total kcals 1.25-2 g protein/kg 88-142 g total protein 25-30 mL/kg 0008-6177 total fluid mLs NUTRITION DIAGNOSIS: * Swallowing difficulty R/T respiratory status, as evidenced by trach/vent dep, PEG dep. * Increased kcal and protein needs r/t wound healing as evidenced by pt with multiple wounds, including partial thickness wound @ L side neck under trach collar, resolving full thickness pressure injury @ sacrum, resolving pressure injury to L trochanter, and reabsorbing serous blister lateral L heel, refer to WC eval. * Altered nutrition related lab values R/T hyperglycemia, h/o DM as evidenced by elev BGs and POC glu (186-406), elev A1C 7.9 CURRENT TF:Glucerna 1.5 @ 65ml/hr x 20 hrs ENTERAL NUTRITION RECOMMENDATIONS: Glucerna 1.5 @ 40ml/hr x 24 hrs + Prosource 1pkt TID to provide 960ml, 1440kcal (+120kcal), 79g (+33g prot), 729ml free water, 127g CHO * Rec to LOWER rate and run for 24 hours for improved glycemic control : will provide total of 127g CHO per day, 46g less CHO than current TF * Add Prosource 1pkt TID to meet protein needs (TF + Prosource TID will provide 100% est kcal/prot needs) * HOB over 30 degrees/ Increase water flushes ADDITIONAL RECOMMENDATIONS: * Calibrated bedscale wt for accurate CBW * Monitor lytes, replete as needed * Wound healing: Add Mayur 1pkt BID, vit C 500mg QD * Monitor BGs closely, need to adjust insulin/TF * Increase water flushes- Na trending up, new TF rec provides less free H2O . .
--- NOTE | 2018-11-21 11:37 | Pulmonolgy Critical Care Note ---
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 (6) Vegetative state (7) Diabetes mellitus Respiratory: monitor respiratory rate, adjust FIO2, CXR Cardiac: continue to monitor HR/BP Renal: F/U I&O, keep IV fluid, check electrolytes Infectious Disease: check cultures Gastrointestinal: continue feedings/current rate Endocrine: check TSH Neurologic: PRN Ativan, keep patient comfortable Affect: PRN ativan Prophylaxis: Heparin Notes Reviewed: cardio, renal Discussed with: nurses, consultants, renal case managerquality control manager - Objective Last 24 Hour Vital Signs Date Time Temp Pulse Resp B/P (MAP) Pulse Ox O2 Delivery O2 Flow Rate FiO2 11/21/18 10:57 111 17 40 11/21/18 09:14 113 16 40 11/21/18 08:00 40 11/21/18 08:00 112 11/21/18 08:00 99.3 113 18 124/83 (97) 100 11/21/18 08:00 Mechanical Ventilator 11/21/18 06:55 111 18 40 11/21/18 05:17 105 16 40 11/21/18 04:00 98.0 106 17 107/77 (87) 99 11/21/18 04:00 Mechanical Ventilator 11/21/18 04:00 40 11/21/18 04:00 107 11/21/18 03:11 104 17 40 11/21/18 01:03 104 17 40 11/21/18 00:00 102 11/21/18 00:00 Mechanical Ventilator 11/21/18 00:00 40 11/21/18 00:00 97.9 102 17 119/84 (96) 100 11/20/18 23:14 103 16 40 11/20/18 21:27 99 18 40 11/20/18 20:00 Mechanical Ventilator 11/20/18 20:00 97.9 102 16 107/81 (90) 100 11/20/18 20:00 40 11/20/18 20:00 105 11/20/18 19:37 103 16 40 11/20/18 16:50 108 16 40 11/20/18 16:00 Mechanical Ventilator 11/20/18 16:00 40 11/20/18 16:00 98.1 109 16 113/80 (91) 100 11/20/18 16:00 113 11/20/18 14:48 112 21 40 11/20/18 12:45 114 18 40 11/20/18 12:00 114 11/20/18 12:00 40 11/20/18 12:00 98.2 113 18 110/76 (87) 100 11/20/18 12:00 Mechanical Ventilator Status: awake Condition: critical Lungs: clear Heart: HR/BP stable Abdomen: soft, non-tender Extremities: no C/C/E, edema Accucheck: 253 Critical Care - Subjective ROS Limited/Unobtainable: No Condition: critical EKG Rhythm: Sinus Rhythm FI02: 40 Vent Support Breath Rate: 16 Vent Support Mode: AC Vent Tidal Volume: 600 Sputum Amount: Small PEEP: 5.0 PIP: 30 Tube Feeding Amount: 65 I&O: Intake and Output 11/20/18 11/21/18 19:00 07:00 Intake Total 1062.5 ml 1550.7 ml Output Total 550 ml 700 ml Balance 512.5 ml 850.7 ml Free Water 150 ml 300 ml IV Total 342.5 ml 470.7 ml Tube Feeding 520 ml 780 ml Other 50 ml Output Urine Total 300 ml 450 ml Stool Total 250 ml 250 ml CXR: no change Labs: Laboratory Tests Test 11/21/18 03:15 White Blood Count 9.2 K/UL (4.8-10.8) Red Blood Count 4.40 M/UL (4.70-6.10) L Hemoglobin 12.5 G/DL (14.2-18.0) L Hematocrit 40.0 % (42.0-52.0) L Mean Corpuscular Volume 91 FL (80-99) Mean Corpuscular Hemoglobin 28.3 PG (27.0-31.0) Mean Corpuscular Hemoglobin Concent 31.1 G/DL (32.0-36.0) L Red Cell Distribution Width 15.7 % (11.6-14.8) H Platelet Count 243 K/UL (150-450) Mean Platelet Volume 11.6 FL (6.5-10.1) H Neutrophils (%) (Auto) 59.2 % (45.0-75.0) Lymphocytes (%) (Auto) 23.5 % (20.0-45.0) Monocytes (%) (Auto) 7.9 % (1.0-10.0) Eosinophils (%) (Auto) 8.1 % (0.0-3.0) H Basophils (%) (Auto) 1.3 % (0.0-2.0) Sodium Level 151 MMOL/L (136-145) H Potassium Level 4.3 MMOL/L (3.5-5.1) Chloride Level 115 MMOL/L (98-107) H Carbon Dioxide Level 21 MMOL/L (21-32) Anion Gap 15 mmol/L (5-15) Blood Urea Nitrogen 32 mg/dL (7-18) H Creatinine 1.8 MG/DL (0.55-1.30) H Estimat Glomerular Filtration Rate 48.5 mL/min (>60) Glucose Level 230 MG/DL (74-106) H Calcium Level 9.7 MG/DL (8.5-10.1) Phosphorus Level 1.3 MG/DL (2.5-4.9) L Magnesium Level 2.4 MG/DL (1.8-2.4) Total Bilirubin 0.5 MG/DL (0.2-1.0) Aspartate Amino Transf (AST/SGOT) 49 U/L (15-37) H Alanine Aminotransferase (ALT/SGPT) 26 U/L (12-78) Alkaline Phosphatase 90 U/L (46-116) Total Protein 8.0 G/DL (6.4-8.2) Albumin 2.4 G/DL (3.4-5.0) L Globulin 5.6 g/dL Albumin/Globulin Ratio 0.4 (1.0-2.7) L Nico Goetz MD Nov 21, 2018 11:37
[2018-11-21 12:00] VITALS: BP 118/83
[2018-11-21 16:00] VITALS: BP 114/75
--- NOTE | 2018-11-21 19:00 | NUR ---
NURSE NOTES: PLACED A TELEPHONE CALL TO DR ALVAREZ REGARDING PHOSPHORUS LEVEL IS 1.3.MESSAGE LEFT ON EMERGENCY VOICE MAIL. A WAITING FOR M.D TO CALL ME BACK.REPORT ENDORSE TO GRETA BREEN STAFF OF NOC SHIFT.WILL CONT TO MONITOR.
--- NOTE | 2018-11-21 19:10 | NUR ---
NURSE NOTES: Received report from Riley RN, pt. in bed obtunded, no signs or symptoms of acute cardiac or respiratory distress noted, bed in lowest position and call light within easy reach, bed alarm on, side rails up x's3, safety brakes engaged, pt. appears to be tolerating current vent settings well- AC16, TV 600, Fio2 @40% and PEEP of 5- no distress noted, G tube feeding running Glucerna 1.5 at 40cc/hr- no residual noted, Colostomy intact and running to gravity, Newberry intact and draining to gravity, dressings dry and intact, rt. femoral TLC intact and patent-TKO, Rt. hand 24G- iv intact and patent, safety measures continued, will continue with plan of care.
--- NOTE | 2018-11-21 19:13 | NUR ---
HAND-OFF: Report given to .CLEMENTINA BREEN.
[2018-11-21 20:00] VITALS: BP 104/87
[2018-11-21] MEDS: Vancomycin 1250mg/D5W 250ml IVPB SCH (21:09)
--- NOTE | 2018-11-21 21:10 | NUR ---
NURSE NOTES: layne Benites from pharmacy to continue same dose of Vancomycin for now.
--- NOTE | 2018-11-21 21:20 | Consultation ---
History of Present Illness General Chief Complaint: Fever Present Illness Allergies: Coded Allergies: AZTREONAM (Verified Allergy, Unknown, 05/13/18) Medication History Scheduled Baclofen* (Baclofen*), 10 MG GT THREE TIMES A DAY, (Reported) Bisacodyl* (Dulcolax*), 10 MG RECTAL DAILY, (Reported) Calcium Carbonate (Calcium Carbonate), 1,000 MG GT BID, (Reported) Chlorhexidine Gluconate (Peridex), 15 ML MM Q12HR, (Reported) Cholecalciferol (Vitamin D3)* (Vitamin D*), 5,000 UNIT GT ONCE A WEEK, (Reported ) Clonidine Hcl* (Catapres*), 0.1 MG GT EVERY 6 HOURS, (Reported) Cranberry (Cranberry), 400 MG GT DAILY, (Reported) Dextran 70/Hypromellose (Artificial Tears Eye Drops*), 1 DROP BOTH EYES Q4HR, ( Reported) Docusate Sodium* (Docusate Sodium*), 100 MG GT TWICE A DAY, (Reported) Famotidine (Famotidine), 20 MG GT DAILY, (Reported) Fenofibrate Nanocrystallized (Fenofibrate), 145 MG GT DAILY, (Reported) Fenofibrate,Micronized (Fenofibrate), 0 ORAL DAILY, (Reported) Glycopyrrolate (Robinul), 2 MG GT BID, (Reported) Heparin Sod (Porcine) (Heparin Sodium*), 5,000 UNITS SUBQ EVERY 12 HOURS, ( Reported) Insulin Regular, Human* (Novolin R*), 0 SUBQ .SLIDING SCALE, (Reported) Ipratropium/Albuterol Sulfate (DuoNeb 0.5-3(2.5)mg/3ml), 3 ML HHN Q3HR, ( Reported) Levetiracetam (Levetiracetam), 100 MG ORAL TWICE A DAY, (Reported) Levetiracetam* (Levetiracetam*), 1,000 MG GT TID, (Reported) Losartan Potassium* (Losartan Potassium*), 25 MG GT DAILY, (Reported) Multivitamin With Minerals (Multivitamins With Minerals*), 1 TAB GT DAILY, ( Reported) Nystatin* (Nystatin*), 1 APPLIC TOPIC THREE TIMES A DAY, (Reported) Payzyiwnobca-Oocd-Owuvluyr,Iso (Zosyn 3.375 Gm Pre Mix-Bag), 3.375 GM IVPB EVERY 8 HOURS, (Reported) Polyethylene Glycol 3350* (Miralax*), 17 GM GT DAILY, (Reported) Polyethylene Glycol 3350* (Miralax*), 17 GM ORAL DAILY, (Reported) Sitagliptin (Januvia), 50 MG ORAL DAILY, (Reported) Sitagliptin* (Januvia*), 50 MG GT DAILY, (Reported) Spironolactone* (Aldactone*), 25 MG GT DAILY, (Reported) Scheduled PRN Acetaminophen 160MG/5ML* (Acetaminophen*), 20.3 ML GT Q4HR PRN for Fever/ Headache/Mild Pain, (Reported) Albuterol Sulfate* (Albuterol Sulfate Hhn*), 3 ML INH Q2H PRN for Shortness of Breath, (Reported) Ondansetron* (Zofran*), 4 MG ORAL Q6H PRN for Nausea & Vomiting, (Reported) Miscellaneous Medications Arginine/Ascorbate Sod/Janay AC (Arginaid Powder), 1 EACH PO, (Reported) Dextran 70/Hypromellose/Pf (Artificial Tears Drops), 1 EACH OP, (Reported) Insulin Lispro (Humalog), 0 SUBQ, (Reported) Ipratropium/Albuterol Sulfate (DuoNeb 0.5-3(2.5)mg/3ml), 3 ML HHN, (Reported) Lactulose (Lactulose*), 30 ML GT, (Reported) Silver Sulfadiazine (Silvadene), 20 GM TP, (Reported) Tuberculin,Purif.prot.deriv. (Aplisol), 5 TU ID, (Reported) Vancomycin Hcl (Vancomycin), 750 MG IVPB, (Reported) Patient History Healthcare decision maker Resuscitation status Advanced Directive on File Physical Exam Last 24 Hour Vital Signs Date Time Temp Pulse Resp B/P (MAP) Pulse Ox O2 Delivery O2 Flow Rate FiO2 11/21/18 20:00 98.1 94 16 104/87 (93) 99 11/21/18 19:30 92 16 40 11/21/18 19:25 92 11/21/18 17:01 98 16 40 11/21/18 16:00 98.1 100 16 114/75 (88) 100 11/21/18 16:00 40 11/21/18 15:30 98 11/21/18 15:15 101 17 40 11/21/18 15:00 Mechanical Ventilator 11/21/18 13:02 106 17 40 11/21/18 12:00 98.6 100 16 118/83 (95) 100 11/21/18 12:00 40 11/21/18 11:50 109 11/21/18 10:57 111 17 40 11/21/18 09:14 113 16 40 11/21/18 08:00 40 11/21/18 08:00 112 11/21/18 08:00 99.3 113 18 124/83 (97) 100 11/21/18 08:00 Mechanical Ventilator 11/21/18 06:55 111 18 40 11/21/18 05:17 105 16 40 11/21/18 04:00 98.0 106 17 107/77 (87) 99 11/21/18 04:00 Mechanical Ventilator 11/21/18 04:00 40 11/21/18 04:00 107 11/21/18 03:11 104 17 40 11/21/18 01:03 104 17 40 11/21/18 00:00 102 11/21/18 00:00 Mechanical Ventilator 11/21/18 00:00 40 11/21/18 00:00 97.9 102 17 119/84 (96) 100 11/20/18 23:14 103 16 40 11/20/18 21:27 99 18 40 Intake and Output 11/20/18 11/21/18 19:00 07:00 Intake Total 1062.5 ml 1550.7 ml Output Total 550 ml 700 ml Balance 512.5 ml 850.7 ml Free Water 150 ml 300 ml IV Total 342.5 ml 470.7 ml Tube Feeding 520 ml 780 ml Other 50 ml Output Urine Total 300 ml 450 ml Stool Total 250 ml 250 ml Laboratory Tests Test 11/21/18 03:15 11/21/18 20:15 White Blood Count 9.2 K/UL (4.8-10.8) Red Blood Count 4.40 M/UL (4.70-6.10) L Hemoglobin 12.5 G/DL (14.2-18.0) L Hematocrit 40.0 % (42.0-52.0) L Mean Corpuscular Volume 91 FL (80-99) Mean Corpuscular Hemoglobin 28.3 PG (27.0-31.0) Mean Corpuscular Hemoglobin Concent 31.1 G/DL (32.0-36.0) L Red Cell Distribution Width 15.7 % (11.6-14.8) H Platelet Count 243 K/UL (150-450) Mean Platelet Volume 11.6 FL (6.5-10.1) H Neutrophils (%) (Auto) 59.2 % (45.0-75.0) Lymphocytes (%) (Auto) 23.5 % (20.0-45.0) Monocytes (%) (Auto) 7.9 % (1.0-10.0) Eosinophils (%) (Auto) 8.1 % (0.0-3.0) H Basophils (%) (Auto) 1.3 % (0.0-2.0) Sodium Level 151 MMOL/L (136-145) H Potassium Level 4.3 MMOL/L (3.5-5.1) Chloride Level 115 MMOL/L (98-107) H Carbon Dioxide Level 21 MMOL/L (21-32) Anion Gap 15 mmol/L (5-15) Blood Urea Nitrogen 32 mg/dL (7-18) H Creatinine 1.8 MG/DL (0.55-1.30) H Estimat Glomerular Filtration Rate 48.5 mL/min (>60) Glucose Level 230 MG/DL (74-106) H Calcium Level 9.7 MG/DL (8.5-10.1) Phosphorus Level 1.3 MG/DL (2.5-4.9) L Magnesium Level 2.4 MG/DL (1.8-2.4) Total Bilirubin 0.5 MG/DL (0.2-1.0) Aspartate Amino Transf (AST/SGOT) 49 U/L (15-37) H Alanine Aminotransferase (ALT/SGPT) 26 U/L (12-78) Alkaline Phosphatase 90 U/L (46-116) Total Protein 8.0 G/DL (6.4-8.2) Albumin 2.4 G/DL (3.4-5.0) L Globulin 5.6 g/dL Albumin/Globulin Ratio 0.4 (1.0-2.7) L Vancomycin Level Trough 15.4 ug/mL (5.0-12.0) H Height (Feet): 5 Height (Inches): 7.00 Weight (Pounds): 202 Medications Current Medications Medications (Trade) Dose Ordered Sig/Va Route PRN Reason Start Time Stop Time Status Last Admin Dose Admin Acetaminophen (Tylenol) 650 mg Q4H PRN GT Mild Pain/Temp > 100.5 11/18/18 08:15 12/18/18 08:14 11/19/18 05:18 Albuterol/ Ipratropium (Albuterol/ Ipratropium) 3 ml Q6H PRN HHN Shortness of Breath 11/18/18 07:45 11/23/18 07:44 Artificial Tears (Akwa-Tears) 1 drop Q4H PRN BOTH EYES Dry Eyes 11/18/18 07:45 12/18/18 07:44 11/18/18 09:24 Baclofen (Lioresal) 10 mg EVERY 8 HOURS GT 11/18/18 14:00 12/18/18 13:59 11/21/18 13:14 Dextrose (Dextrose 50%) 25 ml Q30M PRN IV Hypoglycemia 11/18/18 07:45 12/18/18 07:44 Dextrose (Dextrose 50%) 50 ml Q30M PRN IV Hypoglycemia 11/18/18 07:45 12/18/18 07:44 Heparin Sodium (Porcine) (Heparin 5000 units/ml) 5,000 units EVERY 12 HOURS SUBQ 11/18/18 09:00 12/18/18 08:59 11/21/18 20:44 Insulin Aspart (NovoLOG) EVERY 4 HOURS SUBQ 11/20/18 13:00 12/18/18 11:59 11/21/18 20:43 Insulin Detemir (Levemir) 15 units Q12HR SUBQ 11/19/18 00:00 12/19/18 00:00 11/21/18 20:45 Lansoprazole (Prevacid) 30 mg DAILY GT 11/21/18 09:00 12/21/18 08:59 11/21/18 10:21 Levetiracetam (Keppra) 1,000 mg EVERY 8 HOURS GT 11/18/18 14:00 12/18/18 13:59 11/21/18 13:15 Nystatin (Nystatin Cr) 1 applic EVERY 12 HOURS TOPIC 11/18/18 09:00 12/18/18 08:59 11/21/18 20:48 Piperacillin Sod/ Tazobactam Sod 3.375 gm/Sodium Chloride 110 ml @ 27.5 mls/hr Q8HR IVPB 11/18/18 10:00 11/25/18 09:59 11/21/18 14:36 Polyethylene Glycol (Miralax) 17 gm DAILYPRN PRN GT Constipation 11/18/18 07:45 12/18/18 07:44 Silver Sulfadiazine (Silvadene Cream 25gm) 1 applic DAILY TOPIC 11/18/18 09:00 12/18/18 08:59 11/21/18 10:22 Sitagliptin Phosphate (Januvia) 50 mg DAILY GT 11/18/18 09:00 12/18/18 08:59 11/21/18 10:20 Vancomycin HCl (Vanco rx to dose) 1 ea DAILY PRN MISC PER RX PROTOCOL 11/18/18 08:00 12/18/18 07:59 Vancomycin HCl/ Dextrose 250 ml @ 166.667 mls/hr Q24H IVPB 11/18/18 21:00 11/23/18 20:59 11/20/18 20:12 Vitamin D (Vitamin D) 1,000 intlu DAILY GT 11/18/18 09:00 12/18/18 08:59 11/21/18 10:21 Assessment/Plan Assessment/Plan Hematology/Oncology Consultation Requesting MD: Perlita Rolle Date of Service:11/21/18 Reason for consultation: Leukocytosis HISTORY OF PRESENT ILLNESS: The patient is a resident of an extended care facility subacute unit where he has been in stable condition over the last several months. Two days prior to the present admission, he developed fever, tachycardia, and moderate hypotension. Treatment in facility the patient with IV fluid and broad-spectrum antibiotics with ceftriaxone and the patient provisionally improved, he was transferred to [facility] and was admitted. Hematology/Oncology was consulted for Leukocytosis, wbc 17. PAST MEDICAL HISTORY: He developed respiratory failure, had to be intubated and placed on mechanical ventilation.The patient is being ventilator dependent and fed via gastrostomy tube. He had multiple infections in the past with pulmonary and urinary infection, currently we are treating in this hospital. ALLERGIES: The patient is allergic to Aztreonam MEDICATIONS: The patient is on: Baclofen, Levetiracetam ,Humalog insulin with sliding scale every six hours, tazobactam etc. FAMILY HISTORY: He is and has no children. SOCIAL HISTORY: The patient does not smoke, drink, or use illicit drugs. REVIEW OF SYSTEMS: The patient is unable to give any information regarding his state of health. PHYSICAL EXAMINATION: VITAL SIGNS: Temperature is 124/82, his pulse is 95, respirations 16, and temperature 97.9. HEENT: Eyes were normal. Pupils were round, equal, and reactive to light. Sclerae were white. Conjunctivae were pink. Extraocular movements were normal. Temporal arteries were palpable bilaterally. There was no bilateral temporal wasting. Visual altamirano to confrontation was normal. Neglect sign was negative. ENT, mucous membranes were not dehydrated. Auditory canals were clear and tympanic membranes could not be visualized. Nasal cavity was not congested. Nasal septum was intact. Soft palate was free of ulcerations. Pharynx was clear from exudate or tonsillar hypertrophy. Uvula could not be visualized. Tongue was moist, midline, and normally palpated. NECK: Supple. There was no goiter. No mass. No lymphadenopathy. There was no JVD. No bruits. Carotid upstroke was 2+. LUNGS: Clear. HEART: PMI was in fifth left intercostal space in midclavicular line. There was normal S1 and normal S2. There was no murmur. No arrhythmia. No S3. No S4. No pericardial rub. ABDOMEN: Soft and nontender without organomegaly. There were no masses palpable. Normal bowel sounds without bruits. There was no guarding. No rebound tenderness. No ascites. No hernia. No CVA tenderness. Liver span was 8 cm, smooth and nontender. Gastrostomy site was clean. EXTREMITIES: Warm without cyanosis, clubbing, or edema. LABORATORY AND DIAGNOSTIC DATA: Hemoglobin is 15.5, hematocrit 47.9 with MCV of 91, WBC of 17.9, and platelets are 293,000. Assessment/Recommendations Leukocytosis. Likely related to underlying infection versus reactive process. --> Peripheral has been ordered, results are pending --> Medications have been reviewed --> Imaging has been reviewed -->Blood cultures and urine cultures prn --> has been started on abx, empiric treatment # acute pancreatitis, status post cerebral hemorrhage with severe encephalopathy. # ventilator-dependent. We will continue the same ventilator setting. 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 Jimmy Fleming MD Nov 21, 2018 21:20
[2018-11-22] VITALS: BP 119/78
[2018-11-22] MEDS: NovoLOG Insulin Flexpen SUBQ SCH ×6 (01:01→21:37)
[2018-11-22] MEDS ORDERED: Lidocaine 1% Plain 30 ml INJ PRN (01:45)
[2018-11-22] MEDS ORDERED: Heparin 2000 units/Ns 1000ml INJ PRN (01:45)
[2018-11-22 04:00] VITALS: BP 125/77
[2018-11-22] MEDS: levETIRAcetam 500mg/5ml Liquid GT SCH ×3 (05:06→21:27)
[2018-11-22] MEDS: Piperacillin/Tazobactam 3.375 GM in NS 110 ML IVPB SCH ×3 (05:07→21:24)
[2018-11-22 06:10] LABS: BASOPHILS % (AUTO) 1.3 % (0.0-2.0); EOSINOPHILS % (AUTO) 9.7 % (0.0-3.0); HEMATOCRIT 39.1 % (42.0-52.0); HEMOGLOBIN 12.4 G/DL (14.2-18.0); LYMPHOCYTES % (AUTO) 17.8 % (20.0-45.0); MEAN CORPUSCULAR VOLUME 90 FL (80-99); NEUTROPHILS % (AUTO) 65.1 % (45.0-75.0); PLATELET COUNT 238 K/UL (150-450); RED BLOOD COUNT 4.33 M/UL (4.70-6.10); RED CELL DISTRIBUTION WIDTH 16.1 % (11.6-14.8); WHITE BLOOD COUNT 12.3 K/UL (4.8-10.8)
[2018-11-22 06:21] LABS: ALANINE AMINOTRANSFERASE 26 U/L (12-78); ALBUMIN 2.6 G/DL (3.4-5.0); ALBUMIN/GLOBULIN RATIO 0.5 (1.0-2.7); ALKALINE PHOSPHATASE 95 U/L (46-116); ANION GAP 15 mmol/L (5-15); ASPARTATE AMINO TRANSFERASE 36 U/L (15-37); BILIRUBIN,TOTAL 0.6 MG/DL (0.2-1.0); BLOOD UREA NITROGEN 33 mg/dL (7-18); CALCIUM 10.5 MG/DL (8.5-10.1); CARBON DIOXIDE 22 MMOL/L (21-32); CHLORIDE 116 MMOL/L (98-107); CREATININE 1.7 MG/DL (0.55-1.30); PHOSPHORUS 1.5 MG/DL (2.5-4.9); POTASSIUM 4.1 MMOL/L (3.5-5.1); SODIUM 152 MMOL/L (136-145)
--- NOTE | 2018-11-22 07:11 | NUR ---
NURSE NOTES: Consent for PICC line insertion got over the phone from next of kin, arnaldo Perez- 2nd nurse to consent Saundra BREEN.
--- NOTE | 2018-11-22 07:11 | NUR ---
HAND-OFF: Report given to Dileep Amato, pt. remains stable and no signs of distress noted.
--- NOTE | 2018-11-22 07:20 | NUR ---
RESPIRATORY NOTE: Patient received on mechanical ventilator, patient is trach PTX 7, current setting sare AC 600, 16, 40%,+5. Alarms are set and audible, plugged into red outlet, spare trach bedside, ambu bag bedside, will continue to monitor patient.
[2018-11-22 08:00] VITALS: BP 119/76
--- NOTE | 2018-11-22 08:10 | NUR ---
NURSE NOTES: received pt in the bed, vent dependent, obtunded, vital signs stable, no co pain, no SOB, skin warm and dry to touch, intact, dressing dry and intact, tolerate GT feeding well, condom catheter with yellow urine, colostomy, TLC on RT femoral, dressing dry and intact, bed in low position, HOB elevated.
--- NOTE | 2018-11-22 09:01 | Consultation ---
History of Present Illness General Date patient seen: Nov 22, 2018 Chief Complaint: Fever Reason for Consultation: UTI Present Illness HPI Mr. Ramos is a 53 yo male with PMHx of chronic resp failure - vent/trach dependent, ICH, COPD, Dm2, seizure disoder, BPH, DM2, dysphagia, G tube, colostomy who was admitted to the hospital on 11/17/18 with fever, hypotension and tachycardia. He was found to have P.a. UTI. He has been on zosyn. His inital leukocytosis has been improving and his fevers have resoved. ID was consulted for UTI PMHx/PSHx Chronic resp failure - vent/trach dependent ICH COPD DM Seizure disoder BPH Dysphagia, G tube Colostomy SocHx [facility] FamHx Unable to obtain as patient not verbal Allergies: Coded Allergies: AZTREONAM (Verified Allergy, Unknown, 05/13/18) Medication History Scheduled Baclofen* (Baclofen*), 10 MG GT THREE TIMES A DAY, (Reported) Bisacodyl* (Dulcolax*), 10 MG RECTAL DAILY, (Reported) Calcium Carbonate (Calcium Carbonate), 1,000 MG GT BID, (Reported) Chlorhexidine Gluconate (Peridex), 15 ML MM Q12HR, (Reported) Cholecalciferol (Vitamin D3)* (Vitamin D*), 5,000 UNIT GT ONCE A WEEK, (Reported ) Clonidine Hcl* (Catapres*), 0.1 MG GT EVERY 6 HOURS, (Reported) Cranberry (Cranberry), 400 MG GT DAILY, (Reported) Dextran 70/Hypromellose (Artificial Tears Eye Drops*), 1 DROP BOTH EYES Q4HR, ( Reported) Docusate Sodium* (Docusate Sodium*), 100 MG GT TWICE A DAY, (Reported) Famotidine (Famotidine), 20 MG GT DAILY, (Reported) Fenofibrate Nanocrystallized (Fenofibrate), 145 MG GT DAILY, (Reported) Fenofibrate,Micronized (Fenofibrate), 0 ORAL DAILY, (Reported) Glycopyrrolate (Robinul), 2 MG GT BID, (Reported) Heparin Sod (Porcine) (Heparin Sodium*), 5,000 UNITS SUBQ EVERY 12 HOURS, ( Reported) Insulin Regular, Human* (Novolin R*), 0 SUBQ .SLIDING SCALE, (Reported) Ipratropium/Albuterol Sulfate (DuoNeb 0.5-3(2.5)mg/3ml), 3 ML HHN Q3HR, ( Reported) Levetiracetam (Levetiracetam), 100 MG ORAL TWICE A DAY, (Reported) Levetiracetam* (Levetiracetam*), 1,000 MG GT TID, (Reported) Losartan Potassium* (Losartan Potassium*), 25 MG GT DAILY, (Reported) Multivitamin With Minerals (Multivitamins With Minerals*), 1 TAB GT DAILY, ( Reported) Nystatin* (Nystatin*), 1 APPLIC TOPIC THREE TIMES A DAY, (Reported) Joessktxnjrk-Jqbm-Euclaypr,Iso (Zosyn 3.375 Gm Pre Mix-Bag), 3.375 GM IVPB EVERY 8 HOURS, (Reported) Polyethylene Glycol 3350* (Miralax*), 17 GM GT DAILY, (Reported) Polyethylene Glycol 3350* (Miralax*), 17 GM ORAL DAILY, (Reported) Sitagliptin (Januvia), 50 MG ORAL DAILY, (Reported) Sitagliptin* (Januvia*), 50 MG GT DAILY, (Reported) Spironolactone* (Aldactone*), 25 MG GT DAILY, (Reported) Scheduled PRN Acetaminophen 160MG/5ML* (Acetaminophen*), 20.3 ML GT Q4HR PRN for Fever/ Headache/Mild Pain, (Reported) Albuterol Sulfate* (Albuterol Sulfate Hhn*), 3 ML INH Q2H PRN for Shortness of Breath, (Reported) Ondansetron* (Zofran*), 4 MG ORAL Q6H PRN for Nausea & Vomiting, (Reported) Miscellaneous Medications Arginine/Ascorbate Sod/Janay AC (Arginaid Powder), 1 EACH PO, (Reported) Dextran 70/Hypromellose/Pf (Artificial Tears Drops), 1 EACH OP, (Reported) Insulin Lispro (Humalog), 0 SUBQ, (Reported) Ipratropium/Albuterol Sulfate (DuoNeb 0.5-3(2.5)mg/3ml), 3 ML HHN, (Reported) Lactulose (Lactulose*), 30 ML GT, (Reported) Silver Sulfadiazine (Silvadene), 20 GM TP, (Reported) Tuberculin,Purif.prot.deriv. (Aplisol), 5 TU ID, (Reported) Vancomycin Hcl (Vancomycin), 750 MG IVPB, (Reported) Patient History Healthcare decision maker Resuscitation status Advanced Directive on File Review of Systems ROS Narrative Unable to obtain as patient not verbal Physical Exam Last 24 Hour Vital Signs Date Time Temp Pulse Resp B/P (MAP) Pulse Ox O2 Delivery O2 Flow Rate FiO2 11/22/18 08:00 Mechanical Ventilator 11/22/18 08:00 40 11/22/18 08:00 99.9 99 16 119/76 (90) 100 11/22/18 07:08 99 16 40 11/22/18 05:17 90 17 40 11/22/18 04:00 98.1 98 18 125/77 (93) 100 11/22/18 04:00 40 11/22/18 04:00 Mechanical Ventilator 11/22/18 03:41 98 11/22/18 03:22 92 16 40 11/22/18 01:26 94 16 40 11/22/18 00:00 Mechanical Ventilator 11/22/18 00:00 97.9 91 16 119/78 (92) 100 11/22/18 00:00 40 11/21/18 23:38 90 11/21/18 23:16 88 16 40 11/21/18 21:05 90 16 40 11/21/18 20:00 40 11/21/18 20:00 Mechanical Ventilator 11/21/18 20:00 98.1 94 16 104/87 (93) 99 11/21/18 19:30 92 16 40 11/21/18 19:25 92 11/21/18 17:01 98 16 40 11/21/18 16:00 98.1 100 16 114/75 (88) 100 11/21/18 16:00 40 11/21/18 15:30 98 11/21/18 15:15 101 17 40 11/21/18 15:00 Mechanical Ventilator 11/21/18 13:02 106 17 40 11/21/18 12:00 98.6 100 16 118/83 (95) 100 11/21/18 12:00 40 11/21/18 11:50 109 11/21/18 10:57 111 17 40 11/21/18 09:14 113 16 40 Intake and Output 11/21/18 11/22/18 18:59 06:59 Intake Total 1062.5 ml 1150.7 ml Output Total 750 ml 700 ml Balance 312.5 ml 450.7 ml Free Water 400 ml 200 ml IV Total 82.5 ml 470.7 ml Tube Feeding 580 ml 480 ml Output Urine Total 400 ml 450 ml Stool Total 350 ml 250 ml Laboratory Tests Test 11/21/18 20:15 11/22/18 03:30 Vancomycin Level Trough 15.4 ug/mL (5.0-12.0) H White Blood Count 12.3 K/UL (4.8-10.8) H Red Blood Count 4.33 M/UL (4.70-6.10) L Hemoglobin 12.4 G/DL (14.2-18.0) L Hematocrit 39.1 % (42.0-52.0) L Mean Corpuscular Volume 90 FL (80-99) Mean Corpuscular Hemoglobin 28.6 PG (27.0-31.0) Mean Corpuscular Hemoglobin Concent 31.7 G/DL (32.0-36.0) L Red Cell Distribution Width 16.1 % (11.6-14.8) H Platelet Count 238 K/UL (150-450) Mean Platelet Volume 10.1 FL (6.5-10.1) Neutrophils (%) (Auto) 65.1 % (45.0-75.0) Lymphocytes (%) (Auto) 17.8 % (20.0-45.0) L Monocytes (%) (Auto) 6.0 % (1.0-10.0) Eosinophils (%) (Auto) 9.7 % (0.0-3.0) H Basophils (%) (Auto) 1.3 % (0.0-2.0) Sodium Level 152 MMOL/L (136-145) H Potassium Level 4.1 MMOL/L (3.5-5.1) Chloride Level 116 MMOL/L (98-107) H Carbon Dioxide Level 22 MMOL/L (21-32) Anion Gap 15 mmol/L (5-15) Blood Urea Nitrogen 33 mg/dL (7-18) H Creatinine 1.7 MG/DL (0.55-1.30) H Estimat Glomerular Filtration Rate 51.8 mL/min (>60) Glucose Level 224 MG/DL (74-106) H Calcium Level 10.5 MG/DL (8.5-10.1) H Phosphorus Level 1.5 MG/DL (2.5-4.9) L Magnesium Level 2.5 MG/DL (1.8-2.4) H Total Bilirubin 0.6 MG/DL (0.2-1.0) Aspartate Amino Transf (AST/SGOT) 36 U/L (15-37) Alanine Aminotransferase (ALT/SGPT) 26 U/L (12-78) Alkaline Phosphatase 95 U/L (46-116) Total Protein 8.2 G/DL (6.4-8.2) Albumin 2.6 G/DL (3.4-5.0) L Globulin 5.6 g/dL Albumin/Globulin Ratio 0.5 (1.0-2.7) L Height (Feet): 5 Height (Inches): 7.00 Weight (Pounds): 202 Medications Current Medications Medications (Trade) Dose Ordered Sig/Va Route PRN Reason Start Time Stop Time Status Last Admin Dose Admin Acetaminophen (Tylenol) 650 mg Q4H PRN GT Mild Pain/Temp > 100.5 11/18/18 08:15 12/18/18 08:14 11/19/18 05:18 Albuterol/ Ipratropium (Albuterol/ Ipratropium) 3 ml Q6H PRN HHN Shortness of Breath 11/18/18 07:45 11/23/18 07:44 Artificial Tears (Akwa-Tears) 1 drop Q4H PRN BOTH EYES Dry Eyes 11/18/18 07:45 12/18/18 07:44 11/18/18 09:24 Baclofen (Lioresal) 10 mg EVERY 8 HOURS GT 11/18/18 14:00 12/18/18 13:59 11/22/18 05:06 Chlorhexidine Gluconate (Rebecca-Hex 2%) 1 applic DAILY@2000 TOPIC 11/22/18 20:00 12/22/18 19:59 Dextrose (Dextrose 50%) 25 ml Q30M PRN IV Hypoglycemia 11/18/18 07:45 12/18/18 07:44 Dextrose (Dextrose 50%) 50 ml Q30M PRN IV Hypoglycemia 11/18/18 07:45 12/18/18 07:44 Heparin Sodium (Porcine) (Heparin 5000 units/ml) 5,000 units EVERY 12 HOURS SUBQ 11/18/18 09:00 12/18/18 08:59 11/21/18 20:44 Heparin Sodium/ Sodium Chloride (Heparin 2000 units/Ns 1000ml premix) 2,000 unit ONCE PRN INJ PICC line placement 11/22/18 01:45 11/24/18 01:44 Insulin Aspart (NovoLOG) EVERY 4 HOURS SUBQ 11/20/18 13:00 12/18/18 11:59 11/22/18 05:06 Insulin Detemir (Levemir) 15 units Q12HR SUBQ 11/19/18 00:00 12/19/18 00:00 11/21/18 20:45 Lansoprazole (Prevacid) 30 mg DAILY GT 11/21/18 09:00 12/21/18 08:59 11/21/18 10:21 Levetiracetam (Keppra) 1,000 mg EVERY 8 HOURS GT 11/18/18 14:00 12/18/18 13:59 11/22/18 05:06 Lidocaine HCl (Xylocaine 1% 30ml) 30 ml ONCE PRN INJ PICC line placement 11/22/18 01:45 11/24/18 01:44 Nystatin (Nystatin Cr) 1 applic EVERY 12 HOURS TOPIC 11/18/18 09:00 12/18/18 08:59 11/21/18 20:48 Piperacillin Sod/ Tazobactam Sod 3.375 gm/Sodium Chloride 110 ml @ 27.5 mls/hr Q8HR IVPB 11/18/18 10:00 11/25/18 09:59 11/22/18 05:07 Polyethylene Glycol (Miralax) 17 gm DAILYPRN PRN GT Constipation 11/18/18 07:45 12/18/18 07:44 Silver Sulfadiazine (Silvadene Cream 25gm) 1 applic DAILY TOPIC 11/18/18 09:00 12/18/18 08:59 11/21/18 10:22 Sitagliptin Phosphate (Januvia) 50 mg DAILY GT 11/18/18 09:00 12/18/18 08:59 11/21/18 10:20 Vancomycin HCl (Vanco rx to dose) 1 ea DAILY PRN MISC PER RX PROTOCOL 11/18/18 08:00 12/18/18 07:59 Vancomycin HCl/ Dextrose 250 ml @ 166.667 mls/hr Q24H IVPB 11/18/18 21:00 11/23/18 20:59 11/21/18 21:09 Vitamin D (Vitamin D) 1,000 intlu DAILY GT 11/18/18 09:00 12/18/18 08:59 11/21/18 10:21 Objective Narrative Gen: NAD, On vent HEENT: NCAT, MMM, PERRL, No Oral lesion, no scleral icterus, trached NECK: full range of motion, supple, no meningismus, No LAD, No JVD LUNGS: CTAB, No W/C, No Accessory muscle use CARDS: RRR, S1, S2, No M/R/G, ABD: Soft, Obese, NT, ND, No R/G, + BS, No HSM, No Masses, PEG and Colostomy ( No E/P) : Deferred Ext: C/C/E, Pulses 2+ B/L (DP, Rad): NEURO: Not responding, No spontaneous movements SKIN: Warm/dry, No rashes Assessment/Plan Assessment/Plan 83 yo female with PMHx of DM, HTN and a Cervical spinal tumor s/p resection 11/04 who presneted to the ED on 11/21/18 with SOB, nausea and constipation. UTI complicated UA (+) Indewlling kendrick UCx 11/17/[address] abd 11/19/18 3 mm distal right ureteral calculus, minimal resultant hydronephrosis. Atrophic left kidney, containing a large staghorn calculus and multiple intrarenal calyceal calculi, previously described Leukocytosis 15 on admit Aebrile to 102 Mild pancreatitis Chronic resp failure - vent/trach dependent ICH COPD DM Seizure disoder BPH Dysphagia, G tube Colostomy Plan - Conitnue Zosyn # 4/10 for UTI - 11/22/18 SP Vanocmcyin #4- No evidence for MRSA - Monitor CBC and temps Thank you for this consult. We will continue to follow the patient during this hospitalization. Kali Richter MD Nov 22, 2018 09:01
[2018-11-22] MEDS: sitaGLIPtin 50mg tab GT SCH (09:04)
[2018-11-22] MEDS: Vitamin D 1000 IU Tab GT SCH (09:04)
[2018-11-22] MEDS: Heparin 5000 units/ml inj SUBQ SCH ×2 (09:05→21:38)
[2018-11-22] MEDS: Levemir Flexpen SUBQ SCH ×2 (09:06→21:38)
--- NOTE | 2018-11-22 10:48 | Pulmonolgy Critical Care Note ---
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 (6) Vegetative state (7) Diabetes mellitus Respiratory: monitor respiratory rate, adjust FIO2, CXR Cardiac: continue to monitor HR/BP Renal: F/U I&O, keep IV fluid Infectious Disease: check cultures Gastrointestinal: continue feedings/current rate Endocrine: monitor blood sugar, check HgA1C Hematologic: transfuse if hgb<8.5 Neurologic: PRN Ativan, keep patient comfortable Affect: PRN ativan Prophylaxis: Protonix Time Spent (Minutes): 40 Notes Reviewed: cardio, renal Discussed with: nurses, consultants, caseworker protective servicesmanager of business operations - Objective Last 24 Hour Vital Signs Date Time Temp Pulse Resp B/P (MAP) Pulse Ox O2 Delivery O2 Flow Rate FiO2 11/22/18 09:10 102 16 40 11/22/18 08:00 99 11/22/18 08:00 Mechanical Ventilator 11/22/18 08:00 40 11/22/18 08:00 99.9 99 16 119/76 (90) 100 11/22/18 07:08 99 16 40 11/22/18 05:17 90 17 40 11/22/18 04:00 98.1 98 18 125/77 (93) 100 11/22/18 04:00 40 11/22/18 04:00 Mechanical Ventilator 11/22/18 03:41 98 11/22/18 03:22 92 16 40 11/22/18 01:26 94 16 40 11/22/18 00:00 Mechanical Ventilator 11/22/18 00:00 97.9 91 16 119/78 (92) 100 11/22/18 00:00 40 11/21/18 23:38 90 11/21/18 23:16 88 16 40 11/21/18 21:05 90 16 40 11/21/18 20:00 40 11/21/18 20:00 Mechanical Ventilator 11/21/18 20:00 98.1 94 16 104/87 (93) 99 11/21/18 19:30 92 16 40 11/21/18 19:25 92 11/21/18 17:01 98 16 40 11/21/18 16:00 98.1 100 16 114/75 (88) 100 11/21/18 16:00 40 11/21/18 15:30 98 11/21/18 15:15 101 17 40 11/21/18 15:00 Mechanical Ventilator 11/21/18 13:02 106 17 40 11/21/18 12:00 98.6 100 16 118/83 (95) 100 11/21/18 12:00 40 11/21/18 11:50 109 11/21/18 10:57 111 17 40 Condition: critical HEENT: atraumatic Neck: full ROM Heart: HR/BP stable Abdomen: non-tender, active bowel sounds Extremities: edema Decubiti: location Accucheck: 248 Critical Care - Subjective ROS Limited/Unobtainable: Yes Condition: critical EKG Rhythm: Sinus Rhythm FI02: 40 Vent Support Breath Rate: 16 Vent Support Mode: AC Vent Tidal Volume: 600 Sputum Amount: Small PEEP: 5.0 PIP: 30 Tube Feeding Amount: 40 I&O: Intake and Output 11/21/18 11/22/18 19:00 07:00 Intake Total 937.5 ml 1110.7 ml Output Total 750 ml 700 ml Balance 187.5 ml 410.7 ml Free Water 300 ml 200 ml IV Total 82.5 ml 470.7 ml Tube Feeding 555 ml 440 ml Output Urine Total 400 ml 450 ml Stool Total 350 ml 250 ml Labs: Laboratory Tests Test 11/21/18 20:15 11/22/18 03:30 Vancomycin Level Trough 15.4 ug/mL (5.0-12.0) H White Blood Count 12.3 K/UL (4.8-10.8) H Red Blood Count 4.33 M/UL (4.70-6.10) L Hemoglobin 12.4 G/DL (14.2-18.0) L Hematocrit 39.1 % (42.0-52.0) L Mean Corpuscular Volume 90 FL (80-99) Mean Corpuscular Hemoglobin 28.6 PG (27.0-31.0) Mean Corpuscular Hemoglobin Concent 31.7 G/DL (32.0-36.0) L Red Cell Distribution Width 16.1 % (11.6-14.8) H Platelet Count 238 K/UL (150-450) Mean Platelet Volume 10.1 FL (6.5-10.1) Neutrophils (%) (Auto) 65.1 % (45.0-75.0) Lymphocytes (%) (Auto) 17.8 % (20.0-45.0) L Monocytes (%) (Auto) 6.0 % (1.0-10.0) Eosinophils (%) (Auto) 9.7 % (0.0-3.0) H Basophils (%) (Auto) 1.3 % (0.0-2.0) Sodium Level 152 MMOL/L (136-145) H Potassium Level 4.1 MMOL/L (3.5-5.1) Chloride Level 116 MMOL/L (98-107) H Carbon Dioxide Level 22 MMOL/L (21-32) Anion Gap 15 mmol/L (5-15) Blood Urea Nitrogen 33 mg/dL (7-18) H Creatinine 1.7 MG/DL (0.55-1.30) H Estimat Glomerular Filtration Rate 51.8 mL/min (>60) Glucose Level 224 MG/DL (74-106) H Calcium Level 10.5 MG/DL (8.5-10.1) H Phosphorus Level 1.5 MG/DL (2.5-4.9) L Magnesium Level 2.5 MG/DL (1.8-2.4) H Total Bilirubin 0.6 MG/DL (0.2-1.0) Aspartate Amino Transf (AST/SGOT) 36 U/L (15-37) Alanine Aminotransferase (ALT/SGPT) 26 U/L (12-78) Alkaline Phosphatase 95 U/L (46-116) Total Protein 8.2 G/DL (6.4-8.2) Albumin 2.6 G/DL (3.4-5.0) L Globulin 5.6 g/dL Albumin/Globulin Ratio 0.5 (1.0-2.7) L Nico Goetz MD Nov 22, 2018 10:48
[2018-11-22 12:00] VITALS: BP 121/70
--- NOTE | 2018-11-22 12:34 | Diagnostic Imaging Report ---
Indications: Needs long-term IV access Technique: Procedure performed at bedside. Procedural timeout performed. Ultrasound confirms patent compressible right brachial vein. Total sterile technique, including sterile probe cover and sterile gel, sterile gloves, hand hygiene, hat, mask,, sterile gown, large sterile drape, and preparation with 2% chlorhexidine utilized. Local anesthesia with 1% lidocaine. Multiple attempts made at venipuncture at multiple locations, with successful entry into the vein documented by blood return. However, at all locations, the wire would only extend a limited distance. Real-time ultrasound imaging demonstrated multiple veins surrounding the brachial artery, appearance suggestive of central venoocclusive disease ultimately, an upstream brachial vein was selected, accessed with 21-gauge needle, passage 0.018 guidewire, exchange for 5 Spanish peel-away sheath. 5 Spanish Bard dual-lumen power PICC cut to 10 cm. It was inserted through the peel-away sheath. Peel-away sheath and guidewire removed. Catheter fixed to the skin. Both catheter ports aspirated and flushed. Patient tolerated procedure well, without immediate complication. Followup chest x-ray obtained, documents catheter tip position at the level of the right brachial vein Impression: Attempted bedside placement of right arm PICC. 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 Catheter cut short, suitable only for use as a peripheral IV.
--- NOTE | 2018-11-22 12:45 | Progress Note ---
DATE: 11/21/2018 SUBJECTIVE: The patient is afebrile and hemodynamically stable. PHYSICAL EXAMINATION: VITAL SIGNS: Blood pressure 119/78, his pulse is 90, respirations are 16, and temperature 97.9. HEENT: Eyes were normal. ENT, mucous membranes were moist and intact. NECK: Supple with no JVD without lymph nodes. Tracheostomy site is clean. LUNGS: Clear without rhonchi, rales, or wheezes. Secretions are small, thin, and hodgson. HEART: Normal sounds with regular beats. There is no S3, S4, or pericardial rub. ABDOMEN: Soft and nontender with normal bowel sounds. Gastrostomy site is clean. EXTREMITIES: Warm without cyanosis, clubbing, or edema. LABORATORY AND DIAGNOSTIC DATA: His hemoglobin is 12.5, hematocrit is 40.7 with MCV of 91, WBC of 9.2, and platelets are 243,000. His BUN and creatinine are 32 and respectively. His sodium is 151, potassium 4.3, chloride 115, and CO2 is 21. His glucose 253. His calcium is 9.7, phosphorus is 1.3, and magnesium is 2.4. IMPRESSION: The patient is status post severe pancreatitis tolerate feeding now well. He is afebrile and hemodynamically stable. Repeat laboratory tests will be done in the a.m. Sariah Bhat M.D. DR: MEGAN JOB#: [id number] CC:
[2018-11-22 16:00] VITALS: BP 121/74
--- NOTE | 2018-11-22 16:14 | NUR ---
NURSE NOTES: vital signs stable, no co pain, midline inserted on RT upper arm, repositioned, continue monitoring.
[2018-11-22] MEDS: Acetaminophen 650mg/20.3ml GT PRN (17:38)
--- NOTE | 2018-11-22 19:07 | NUR ---
HAND-OFF: Report given to EDWIGE BREEN.
--- NOTE | 2018-11-22 19:20 | NUR ---
NURSE NOTES: Received report from Dileep RN, pt. in bed obtunded, no signs or symptoms of acute cardiac or respiratory distress noted, cardiac monitoring on, bed in lowest position and call light within easy reach, bed alarm on, side rails up x's3, safety brakes engaged, pt. appears to be tolerating current vent settings well- AC16, TV 600, Fio2 @40% and PEEP of 5- no distress noted, G tube feeding running Glucerna 1.5 at 40cc/hr- no residual noted, Colostomy intact and draining to gravity, Newberry intact and draining to gravity, dressings dry and intact,pt. is clean and dry, comfort measures provided, Rt. hand 24G- iv intact and patent, KEIRA midline intact and patent, safety measures continued, will continue with plan of care.
--- NOTE | 2018-11-22 19:25 | NUR ---
RESPIRATORY NOTE: Received pt on AC RR 12, VT 600, FIO2 40%, and peep +5. Moderate amount of white, chacon secretions and will sxn prn. Ambu bad near bedside. Vent is plugged into red outlet. Will continue to monitor.
[2018-11-22 20:00] VITALS: BP 113/74
[2018-11-22] MEDS ORDERED: Dyna-Hex 2% Top Sol 2oz TOPIC SCH (20:00)
--- NOTE | 2018-11-22 21:35 | General Progress Note ---
Assessment/Plan Assessment/Plan Assessment/Recommendations Leukocytosis. Likely related to underlying infection versus reactive process. --> Peripheral has been reviewed --> Medications have been reviewed --> Imaging has been reviewed -->Blood cultures and urine cultures prn --> has been started on abx, empiric treatment --> wbc trend: 14-->11-->9-->12 # acute pancreatitis, status post cerebral hemorrhage with severe encephalopathy. # ventilator-dependent. We will continue the same ventilator setting. 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 Subjective ROS Limited/Unobtainable: Yes Allergies: Coded Allergies: AZTREONAM (Verified Allergy, Unknown, 05/13/18) Subjective /: Pt is seen in the room,on vent, G tube, leukocytosis has been improving and his fevers have resolved. Objective Last 24 Hour Vital Signs Date Time Temp Pulse Resp B/P (MAP) Pulse Ox O2 Delivery O2 Flow Rate FiO2 11/22/18 20:52 100 16 40 11/22/18 19:17 99 16 40 11/22/18 18:08 100.3 11/22/18 17:10 106 17 40 11/22/18 16:00 Mechanical Ventilator 11/22/18 16:00 107 11/22/18 16:00 100.3 107 16 121/74 (90) 100 11/22/18 16:00 40 11/22/18 15:10 107 16 40 11/22/18 12:54 109 16 40 11/22/18 12:00 100.0 110 17 121/70 (87) 100 11/22/18 12:00 Mechanical Ventilator 11/22/18 12:00 40 11/22/18 12:00 110 11/22/18 11:05 110 17 40 11/22/18 09:10 102 16 40 11/22/18 08:00 99 11/22/18 08:00 Mechanical Ventilator 11/22/18 08:00 40 11/22/18 08:00 99.9 99 16 119/76 (90) 100 11/22/18 07:08 99 16 40 11/22/18 05:17 90 17 40 11/22/18 04:00 98.1 98 18 125/77 (93) 100 11/22/18 04:00 40 11/22/18 04:00 Mechanical Ventilator 11/22/18 03:41 98 11/22/18 03:22 92 16 40 11/22/18 01:26 94 16 40 11/22/18 00:00 Mechanical Ventilator 11/22/18 00:00 97.9 91 16 119/78 (92) 100 11/22/18 00:00 40 11/21/18 23:38 90 11/21/18 23:16 88 16 40 Intake and Output 11/21/18 11/22/18 19:00 07:00 Intake Total 937.5 ml 1150.7 ml Output Total 750 ml 700 ml Balance 187.5 ml 450.7 ml Free Water 300 ml 200 ml IV Total 82.5 ml 470.7 ml Tube Feeding 555 ml 480 ml Output Urine Total 400 ml 450 ml Stool Total 350 ml 250 ml Laboratory Tests 11/22/18 03:30: White Blood Count 12.3H, Red Blood Count 4.33L, Hemoglobin 12.4L, Hematocrit 39.1L, Mean Corpuscular Volume 90, Mean Corpuscular Hemoglobin 28.6, Mean Corpuscular Hemoglobin Concent 31.7L, Red Cell Distribution Width 16.1H, Platelet Count 238, Mean Platelet Volume 10.1, Neutrophils (%) (Auto) 65.1, Lymphocytes (%) (Auto) 17.8L, Monocytes (%) (Auto) 6.0, Eosinophils (%) (Auto) 9.7H, Basophils (%) (Auto) 1.3, Sodium Level 152H, Potassium Level 4.1, Chloride Level 116H, Carbon Dioxide Level 22, Anion Gap 15, Blood Urea Nitrogen 33H, Creatinine 1.7H, Estimat Glomerular Filtration Rate 51.8, Glucose Level 224H, Calcium Level 10.5H, Phosphorus Level 1.5L, Magnesium Level 2.5H, Total Bilirubin 0.6, Aspartate Amino Transf (AST/SGOT) 36, Alanine Aminotransferase ( ALT/SGPT) 26, Alkaline Phosphatase 95, Total Protein 8.2, Albumin 2.6L, Globulin 5.6, Albumin/Globulin Ratio 0.5L Height (Feet): 5 Height (Inches): 7.00 Weight (Pounds): 202 Objective PHYSICAL EXAMINATION General Appearance: on vent HEENT: normocephalic, atraumatic Neck: non-tender, normal alignment Respiratory/Chest: chest wall non-tender, lungs clear Cardiovascular/Chest: normal peripheral pulses, normal rate Abdomen: normal bowel sounds, non tender Extremities: poorl range of motion Jimmy Fleming MD Nov 22, 2018 21:35
[2018-11-23] VITALS: BP 118/78
[2018-11-23] MEDS: NovoLOG Insulin Flexpen SUBQ SCH ×6 (01:05→20:29)
--- NOTE | 2018-11-23 02:45 | Progress Note ---
SUBJECTIVE: The patient is alert and awake, febrile, and tachycardic. PHYSICAL EXAMINATION: VITAL SIGNS: Blood pressure 114/74, his pulse is 102, respirations 16, and temperature was 100.3. HEENT: Eyes were normal. ENT, mucous membranes were moist and intact. Tongue is protuberant, can move very quickly. Oral cavity is moist. NECK: Supple with no JVD without lymph nodes. Tracheostomy site is clean. LUNGS: Clear without rhonchi, rales, or wheezing. There is bibasilar rhonchi laterally only. HEART: Normal sounds with regular beats. There is tachycardia at rest. Sinus tachycardia on monitor. ABDOMEN: Soft and nontender with normal bowel sounds. Gastrostomy site is clean. EXTREMITIES: Warm without cyanosis, clubbing, or edema. LABORATORY AND DIAGNOSTIC DATA: His hemoglobin is 12.4, hematocrit 39.1 with MCV of 90, WBC of 12.3 and platelets of 238,000. His BUN and creatinine is 33 and 1.7 respectively. Sodium is 152, potassium 4.1, chloride 102, CO2 is 22, and calcium is 10.5. His salicylate is 1.5. Magnesium 2.5. SGOT, SGPT, and alkaline phosphatase are normal. Albumin is 2.6. Total protein is 8.2. His chest x-ray is clear. The patient has acute pancreatitis, now tolerating feeding without nausea, vomiting, abdominal pain, or diarrhea. is not exactly clear. Repeat laboratory tests will be done in the a.m. Sariah Bhat M.D. DR: PATTIE JOB#: [id number] CC:
[2018-11-23 04:00] VITALS: BP 123/75
[2018-11-23] MEDS: Piperacillin/Tazobactam 3.375 GM in NS 110 ML IVPB SCH ×3 (05:02→20:31)
[2018-11-23] MEDS: levETIRAcetam 500mg/5ml Liquid GT SCH ×3 (05:03→20:30)
[2018-11-23 06:33] LABS: BASOPHILS % (AUTO) 0.8 % (0.0-2.0); EOSINOPHILS % (AUTO) 8.6 % (0.0-3.0); HEMATOCRIT 43.5 % (42.0-52.0); HEMOGLOBIN 13.6 G/DL (14.2-18.0); LYMPHOCYTES % (AUTO) 18.2 % (20.0-45.0); MEAN CORPUSCULAR VOLUME 91 FL (80-99); MONOCYTES % (AUTO) 5.6 % (1.0-10.0); NEUTROPHILS % (AUTO) 66.8 % (45.0-75.0); PLATELET COUNT 244 K/UL (150-450); RED BLOOD COUNT 4.77 M/UL (4.70-6.10); RED CELL DISTRIBUTION WIDTH 16.2 % (11.6-14.8); WHITE BLOOD COUNT 12.7 K/UL (4.8-10.8)
[2018-11-23 06:45] LABS: ALANINE AMINOTRANSFERASE 33 U/L (12-78); ALBUMIN 2.8 G/DL (3.4-5.0); ALBUMIN/GLOBULIN RATIO 0.5 (1.0-2.7); ALKALINE PHOSPHATASE 97 U/L (46-116); ANION GAP 16 mmol/L (5-15); ASPARTATE AMINO TRANSFERASE 51 U/L (15-37); BILIRUBIN,TOTAL 0.6 MG/DL (0.2-1.0); BLOOD UREA NITROGEN 33 mg/dL (7-18); CALCIUM 10.7 MG/DL (8.5-10.1); CARBON DIOXIDE 21 MMOL/L (21-32); CHLORIDE 118 MMOL/L (98-107); CREATININE 2.1 MG/DL (0.55-1.30); PHOSPHORUS 2.4 MG/DL (2.5-4.9); POTASSIUM 4.3 MMOL/L (3.5-5.1); SODIUM 155 MMOL/L (136-145)
--- NOTE | 2018-11-23 07:30 | NUR ---
NURSE NOTES: Received patient in bed. Vent dependent. On continuous GTF as tolerated. Right upper arm midline noted. Contact isolation observed. No respiratory distress. Will continue plan of care.
[2018-11-23 07:56] LABS: APPEARANCE,URINE CLOUDY; BILIRUBIN, URINE NEGATIVE (NEGATIVE); COLOR,URINE PALE YELLOW; GLUCOSE, URINE (UA) NEGATIVE (NEGATIVE); KETONES,URINE NEGATIVE (NEGATIVE); LEUKOCYTE ESTERASE ,URINE 3+ (NEGATIVE); NITRITE,URINE POSITIVE (NEGATIVE); PH,URINE 5 (4.5-8.0); PROTEIN,URINE 3+ (NEGATIVE); UROBILINOGEN,URINE NORMAL MG/DL (0.0-1.0)
[2018-11-23 08:00] VITALS: BP 110/78
[2018-11-23] MEDS: sitaGLIPtin 50mg tab GT SCH (09:08)
[2018-11-23] MEDS: Vitamin D 1000 IU Tab GT SCH (09:08)
[2018-11-23] MEDS: Levemir Flexpen SUBQ SCH ×2 (09:09→20:28)
[2018-11-23] MEDS: Heparin 5000 units/ml inj SUBQ SCH ×2 (09:09→20:27)
[2018-11-23 12:00] VITALS: BP 114/78
--- NOTE | 2018-11-23 14:22 | Diagnostic Imaging Report ---
EXAM: XR Chest, 2 Views CLINICAL HISTORY: COPD TECHNIQUE: Frontal and lateral views of the chest. COMPARISON: Chest x-ray 11/22/18 1112 and 816 FINDINGS: Lungs: Hypoventilatory lungs. Left lung base atelectasis. Pleural space: Small left pleural effusion. No pneumothorax. Heart: Unremarkable. No cardiomegaly. Mediastinum: Unremarkable. Bones/joints: Unremarkable. Tubes, lines and devices: Tracheostomy tube. IMPRESSION: Small left pleural effusion. No significant change.
[2018-11-23 16:00] VITALS: BP 122/74
--- NOTE | 2018-11-23 19:27 | NUR ---
HAND-OFF: Report given to Kacy Amezquita RN.
--- NOTE | 2018-11-23 19:28 | NUR ---
NURSE NOTES: Received report from Christine Rivers RN. Patient seen in bed in tyson position. No S/Sx of pain is present. Patient is on trach to vent with setting of AC16, TV 600, Fi02 40% , PEEP 5. SP02 is at 99%. Patient is on GT feeling of glucerna 1.5 running at 40cc/hr. GT site is intact. Patient has colostomy and site is intact. Patient has condom cath and is intact. IV site noted to right hand 24g and PICC line at right upper arm, intact. Bed is in lowest position with padded side rails. Call light is within reach. Will continue to monitor.
[2018-11-23 20:00] VITALS: BP 118/78
[2018-11-24] VITALS: BP 118/77
[2018-11-24] MEDS: NovoLOG Insulin Flexpen SUBQ SCH ×6 (01:01→21:22)
[2018-11-24 04:00] VITALS: BP 120/76
--- NOTE | 2018-11-24 04:45 | Progress Note ---
DATE: 11/23/2018 SUBJECTIVE: The patient has low-grade fever, but his tachycardia resolved. PHYSICAL EXAMINATION: VITAL SIGNS: Blood pressure 118/77, his pulse is 94, respirations of 16, and temperature of 99.3. HEENT: Eyes were normal. ENT, mucous membranes are moist and intact. NECK: Supple with no JVD without lymph nodes. Tracheostomy site is clean. LUNGS: Clear without rhonchi, rales, or wheezing. Secretions are small, thin, and hogdson. HEART: Normal sounds with regular beats. There is no S3, S4, or pericardial rub. ABDOMEN: Soft and nontender with normal bowel sounds. Gastrostomy site is clean. EXTREMITIES: Warm without cyanosis, clubbing, or edema. LABORATORY AND DIAGNOSTIC DATA: His hemoglobin is 13.6, hematocrit 33.5 with MCV of 91, WBC of 12.7, and platelets of 244,000. His BUN and creatinine are ____ and 2.1 respectively. His sodium is 155, potassium 4.3, chloride 118, CO2 is 21, and calcium is 10.7. His phosphorus is 2.4 and magnesium is 2.5. SGOT, SGPT elevated. Albumin is low. Globulin is elevated. Chest x-ray done today revealed persistent of small left pleural effusion. IMPRESSION: The patient's tachycardia appears stable. He still has low-grade fever without tachycardia. Repeat laboratory tests will be done in the a.m. Sariah Bhat M.D. DR: GENESIS JOB#: [id number] CC:
--- NOTE | 2018-11-24 04:53 | NUR ---
NURSE NOTES: patient blood sugar is 219. Novolog pen is out and lable machine is down, unable to obtain novolog pen at this time. House supp and charge nurse made aware. Per house Supp, re check the blood sugar at 0700 and administer novolog insulin per protocol.
[2018-11-24] MEDS: levETIRAcetam 500mg/5ml Liquid GT SCH ×3 (05:05→21:14)
[2018-11-24] MEDS: Piperacillin/Tazobactam 3.375 GM in NS 110 ML IVPB SCH ×3 (05:06→21:14)
[2018-11-24 05:41] LABS: BASOPHILS % (AUTO) 0.8 % (0.0-2.0); EOSINOPHILS % (AUTO) 9.3 % (0.0-3.0); HEMATOCRIT 42.3 % (42.0-52.0); HEMOGLOBIN 12.9 G/DL (14.2-18.0); LYMPHOCYTES % (AUTO) 15.7 % (20.0-45.0); MEAN CORPUSCULAR VOLUME 91 FL (80-99); MONOCYTES % (AUTO) 6.1 % (1.0-10.0); NEUTROPHILS % (AUTO) 68.2 % (45.0-75.0); PLATELET COUNT 276 K/UL (150-450); RED BLOOD COUNT 4.64 M/UL (4.70-6.10); RED CELL DISTRIBUTION WIDTH 16.5 % (11.6-14.8); WHITE BLOOD COUNT 13.1 K/UL (4.8-10.8)
[2018-11-24 06:05] LABS: ANION GAP 16 mmol/L (5-15); BLOOD UREA NITROGEN 32 mg/dL (7-18); CALCIUM 10.8 MG/DL (8.5-10.1); CARBON DIOXIDE 21 MMOL/L (21-32); CHLORIDE 118 MMOL/L (98-107); POTASSIUM 3.8 MMOL/L (3.5-5.1); SODIUM 155 MMOL/L (136-145)
--- NOTE | 2018-11-24 07:15 | NUR ---
NURSE NOTES: RECEIVED BED SIDE REPORT FROM LEANN AGRIBUSINESS PROFESSOR OF NOC SHIFT.RECEIVED PT WITH HOB ELEVATED 45 DEGREE TRACH TO VENT OBTUNDED.PT WITH TRACH PATENT ,PORTEX #7 WELL SECURE.PT TOLERATED WELL CURRENTS VENT SETTINGS AC-16,TV 600,PEEP 5 ,FIO2 40%.PT SAT 100%.RENDERED TRACH AND ORAL CARE SX,D LG AMT OF TICK WITH SECRETIONS.PT WITH GTF PATENT ,NO RESIDUAL NOTED TOLERATING WELL GLUCERNA 1.5 @ 40cc/hrs.PT WITH MID-LINE ON RT UPPER ARM CLEAN AND INTACT PT RECEIVING ZOSYN 3.375 IVPB INFUSING WELL .PT REPOSITIONED Q 2HRS TO PROVIDE COMFORT AND PREVENT FURTHER SKIN BREAK DOWN.FULL BODY ASSESSMENT DONE.WILL CONT TO MONITOR.
--- NOTE | 2018-11-24 07:31 | NUR ---
HAND-OFF: Report given to JAMSHID Hallman. endorsed about the novolog needs to be administered when delivered.
[2018-11-24 08:00] VITALS: BP 112/85
[2018-11-24] MEDS: Heparin 5000 units/ml inj SUBQ SCH ×2 (09:11→21:21)
[2018-11-24] MEDS: Levemir Flexpen SUBQ SCH ×2 (09:11→21:18)
[2018-11-24] MEDS: sitaGLIPtin 50mg tab GT SCH (09:12)
[2018-11-24] MEDS: Vitamin D 1000 IU Tab GT SCH (09:12)
--- NOTE | 2018-11-24 10:25 | Infectious Diseases Prog Note ---
Assessment/Plan Assessment/Plan 83 yo female with PMHx of DM, HTN and a Cervical spinal tumor s/p resection 11/04 who presneted to the ED on 11/21/18 with SOB, nausea and constipation. UTI complicated UA (+) Indewlling kendrick UCx 11/17/17 P.a. (R Levo, otherwise S) CT abd 11/19/18 3 mm distal right ureteral calculus, minimal resultant hydronephrosis. Atrophic left kidney, containing a large staghorn calculus and multiple intrarenal calyceal calculi, previously described Leukocytosis 15 on admit; improved Aebrile to 102; improving -11/23 CXR: Hypoventilatory lungs. Left lung base atelectasis. Mild pancreatitis Chronic resp failure - vent/trach dependent ICH COPD DM Seizure disoder BPH Dysphagia, G tube Colostomy Plan - Conitnue Zosyn # 6/10 for UTI - 11/22/18 SP Vanocmcyin #4- No evidence for MRSA - Monitor CBC and temps Thank you for this consult. We will continue to follow the patient during this hospitalization. Subjective Allergies: Coded Allergies: AZTREONAM (Verified Allergy, Unknown, 05/13/18) Subjective Tm 100; afebrile in ~24hrs Objective Vital Signs Last 24 Hour Vital Signs Date Time Temp Pulse Resp B/P (MAP) Pulse Ox O2 Delivery O2 Flow Rate FiO2 11/24/18 09:10 98 16 40 11/24/18 08:00 98.3 91 20 112/85 (94) 100 11/24/18 08:00 40 11/24/18 08:00 Mechanical Ventilator 11/24/18 07:47 92 11/24/18 07:13 90 16 40 11/24/18 05:12 91 16 40 11/24/18 04:00 99.1 96 18 120/76 (91) 100 11/24/18 04:00 Mechanical Ventilator 11/24/18 04:00 40 11/24/18 03:35 94 11/24/18 02:43 93 16 40 11/24/18 00:57 94 16 40 11/24/18 00:00 99.3 94 17 118/77 (91) 100 11/24/18 00:00 40 11/24/18 00:00 Mechanical Ventilator 11/23/18 23:36 94 11/23/18 23:07 97 16 40 11/23/18 20:55 94 17 40 11/23/18 20:00 40 11/23/18 20:00 Mechanical Ventilator 11/23/18 20:00 91 11/23/18 20:00 97.7 90 16 118/78 (91) 100 11/23/18 19:08 91 16 40 11/23/18 17:00 97 16 40 11/23/18 16:00 99.3 101 16 122/74 (90) 99 11/23/18 16:00 Mechanical Ventilator 11/23/18 16:00 40 11/23/18 15:09 95 11/23/18 15:00 95 16 40 11/23/18 13:00 97 16 40 11/23/18 12:00 40 11/23/18 12:00 Mechanical Ventilator 11/23/18 12:00 100.0 98 16 114/78 (90) 100 11/23/18 11:54 99 11/23/18 10:37 102 16 40 Height (Feet): 5 Height (Inches): 7.00 Weight (Pounds): 202 Objective Gen: NAD, On vent HEENT: NCAT, MMM, PERRL, No Oral lesion, no scleral icterus, trached NECK: full range of motion, supple, no meningismus, No LAD, No JVD LUNGS: CTAB, No W/C, No Accessory muscle use CARDS: RRR, S1, S2, No M/R/G, ABD: Soft, Obese, NT, ND, No R/G, + BS, No HSM, No Masses, PEG and Colostomy ( No E/P) : Deferred Ext: C/C/E, Pulses 2+ B/L (DP, Rad): NEURO: Not responding, No spontaneous movements SKIN: Warm/dry, No rashes Microbiology Date/Time Source Procedure Growth Status 11/23/18 04:00 Urine,Clean Catch Urine Culture - Preliminary Gram Negative Bacillus 1 Yeast Species Resulted Laboratory Tests Test 11/24/18 04:00 White Blood Count 13.1 K/UL (4.8-10.8) H Red Blood Count 4.64 M/UL (4.70-6.10) L Hemoglobin 12.9 G/DL (14.2-18.0) L Hematocrit 42.3 % (42.0-52.0) Mean Corpuscular Volume 91 FL (80-99) Mean Corpuscular Hemoglobin 27.9 PG (27.0-31.0) Mean Corpuscular Hemoglobin Concent 30.6 G/DL (32.0-36.0) L Red Cell Distribution Width 16.5 % (11.6-14.8) H Platelet Count 276 K/UL (150-450) Mean Platelet Volume 9.6 FL (6.5-10.1) Neutrophils (%) (Auto) 68.2 % (45.0-75.0) Lymphocytes (%) (Auto) 15.7 % (20.0-45.0) L Monocytes (%) (Auto) 6.1 % (1.0-10.0) Eosinophils (%) (Auto) 9.3 % (0.0-3.0) H Basophils (%) (Auto) 0.8 % (0.0-2.0) Sodium Level 155 MMOL/L (136-145) H Potassium Level 3.8 MMOL/L (3.5-5.1) Chloride Level 118 MMOL/L (98-107) H Carbon Dioxide Level 21 MMOL/L (21-32) Anion Gap 16 mmol/L (5-15) H Blood Urea Nitrogen 32 mg/dL (7-18) H Creatinine 2.0 MG/DL (0.55-1.30) H Estimat Glomerular Filtration Rate 42.9 mL/min (>60) Glucose Level 224 MG/DL (74-106) H Calcium Level 10.8 MG/DL (8.5-10.1) H Current Medications Medications (Trade) Dose Ordered Sig/Va Route PRN Reason Start Time Stop Time Status Last Admin Dose Admin Acetaminophen (Tylenol) 650 mg Q4H PRN GT Mild Pain/Temp > 100.5 11/18/18 08:15 12/18/18 08:14 11/22/18 17:38 Artificial Tears (Akwa-Tears) 1 drop Q4H PRN BOTH EYES Dry Eyes 11/18/18 07:45 12/18/18 07:44 11/18/18 09:24 Baclofen (Lioresal) 10 mg EVERY 8 HOURS GT 11/18/18 14:00 12/18/18 13:59 11/24/18 05:04 Dextrose (Dextrose 50%) 25 ml Q30M PRN IV Hypoglycemia 11/18/18 07:45 12/18/18 07:44 Dextrose (Dextrose 50%) 50 ml Q30M PRN IV Hypoglycemia 11/18/18 07:45 12/18/18 07:44 Heparin Sodium (Porcine) (Heparin 5000 units/ml) 5,000 units EVERY 12 HOURS SUBQ 11/18/18 09:00 12/18/18 08:59 11/24/18 09:11 Insulin Aspart (NovoLOG) EVERY 4 HOURS SUBQ 11/20/18 13:00 12/18/18 11:59 11/24/18 09:09 Insulin Detemir (Levemir) 15 units Q12HR SUBQ 11/19/18 00:00 12/19/18 00:00 11/24/18 09:11 Lansoprazole (Prevacid) 30 mg DAILY GT 11/21/18 09:00 12/21/18 08:59 11/24/18 09:12 Levetiracetam (Keppra) 1,000 mg EVERY 8 HOURS GT 11/18/18 14:00 12/18/18 13:59 11/24/18 05:05 Nystatin (Nystatin Cr) 1 applic EVERY 12 HOURS TOPIC 11/18/18 09:00 12/18/18 08:59 11/24/18 09:12 Piperacillin Sod/ Tazobactam Sod 3.375 gm/Sodium Chloride 110 ml @ 27.5 mls/hr Q8HR IVPB 11/18/18 10:00 11/25/18 09:59 11/24/18 05:06 Polyethylene Glycol (Miralax) 17 gm DAILYPRN PRN GT Constipation 11/18/18 07:45 12/18/18 07:44 Silver Sulfadiazine (Silvadene Cream 25gm) 1 applic BEDTIME TOPIC 11/23/18 21:00 12/18/18 08:59 11/23/18 20:30 Sitagliptin Phosphate (Januvia) 50 mg DAILY GT 11/18/18 09:00 12/18/18 08:59 11/24/18 09:12 Vitamin D (Vitamin D) 1,000 intlu DAILY GT 11/18/18 09:00 12/18/18 08:59 11/24/18 09:12 Maribel Barrera M.D. Nov 24, 2018 10:25
[2018-11-24] MEDS ORDERED: Tubing IV Secondary IV ONE (10:39)
[2018-11-24] MEDS ORDERED: NS 275ml ONE (10:39)
[2018-11-24 11:47] VITALS: BP 109/76
--- NOTE | 2018-11-24 14:23 | NUR ---
RD ASSESSMENT & RECOMMENDATIONS SEE CARE ACTIVITY FOR COMPLETE ASSESSMENT DAILY ESTIMATED NEEDS: Needs based on Critical care, wound /71kg abw 22-30 kcals/kg 7188-4432 total kcals 1.25-2 g protein/kg 88-142 g total protein 25-30 mL/kg 6417-4262 total fluid mLs NUTRITION DIAGNOSIS: * Swallowing difficulty R/T respiratory status, as evidenced by trach/vent dep, PEG dep. * Increased kcal and protein needs r/t wound healing as evidenced by pt with multiple wounds, including partial thickness wound @ L side neck under trach collar, resolving full thickness pressure injury @ sacrum, resolving pressure injury to L trochanter, and reabsorbing serous blister lateral L heel, refer to WC eval. * Altered nutrition related lab values R/T hyperglycemia, h/o DM as evidenced by elev BGs and POC glu (186-406), elev A1C 7.9 CURRENT TF:Glucerna 1.5 @ 40ml/hr x 24 hrs + PS TID ENTERAL NUTRITION RECOMMENDATIONS: Glucerna 1.5 @ 40ml/hr x 24 hrs + Prosource 1pkt TID to provide 960ml, 1440kcal (+120kcal), 79g (+33g prot), 729ml free water, 127g CHO * Maintain LOWER rate and run time of 24 hours for improved glycemic control :will provide total of 127g CHO per day, 46g less CHO than previous TF * Add Prosource 1pkt TID to meet protein needs (TF + Prosource TID will provide 100% est kcal/prot needs) * HOB over 30 degrees/ Increase water flushes ADDITIONAL RECOMMENDATIONS: * Calibrated bedscale wt for accurate CBW * Monitor lytes, replete as needed * Wound healing: Add Mayur 1pkt BID, vit C 500mg QD * Monitor BGs closely, need to adjust insulin/TF * Increase water flushes- new TF rec provides less free H2O -> NA 155, trending up .
[2018-11-24 16:19] VITALS: BP 101/77
--- NOTE | 2018-11-24 16:42 | General Progress Note ---
Assessment/Plan Assessment/Plan Assessment/Recommendations Leukocytosis. Likely related to underlying infection versus reactive process. --> Peripheral has been reviewed --> Medications have been reviewed --> Imaging has been reviewed -->Blood cultures and urine cultures prn --> has been started on abx, empiric treatment --> wbc trend: 14-->11-->9-->12 # acute pancreatitis, status post cerebral hemorrhage with severe encephalopathy. # ventilator-dependent. We will continue the same ventilator setting. 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 Subjective ROS Limited/Unobtainable: Yes Allergies: Coded Allergies: AZTREONAM (Verified Allergy, Unknown, 05/13/18) Subjective 2/1: Pt is seen in the room,on vent, G tube, leukocytosis has been improving and his fevers have resolved. 2/3: on vent, resting in bed, wbc trending up, no fevers or chills, Objective Last 24 Hour Vital Signs Date Time Temp Pulse Resp B/P (MAP) Pulse Ox O2 Delivery O2 Flow Rate FiO2 11/24/18 16:19 98.7 103 17 101/77 (85) 100 11/24/18 15:43 106 11/24/18 15:12 104 16 40 11/24/18 13:00 102 16 40 11/24/18 12:00 40 11/24/18 12:00 Mechanical Ventilator 11/24/18 11:50 110 11/24/18 11:47 98.9 107 18 109/76 (87) 100 11/24/18 11:13 101 16 40 11/24/18 09:10 98 16 40 11/24/18 08:00 98.3 91 20 112/85 (94) 100 11/24/18 08:00 40 11/24/18 08:00 Mechanical Ventilator 11/24/18 07:47 92 11/24/18 07:13 90 16 40 11/24/18 05:12 91 16 40 11/24/18 04:00 99.1 96 18 120/76 (91) 100 11/24/18 04:00 Mechanical Ventilator 11/24/18 04:00 40 11/24/18 03:35 94 11/24/18 02:43 93 16 40 11/24/18 00:57 94 16 40 11/24/18 00:00 99.3 94 17 118/77 (91) 100 11/24/18 00:00 40 11/24/18 00:00 Mechanical Ventilator 11/23/18 23:36 94 11/23/18 23:07 97 16 40 11/23/18 20:55 94 17 40 11/23/18 20:00 40 11/23/18 20:00 Mechanical Ventilator 11/23/18 20:00 91 11/23/18 20:00 97.7 90 16 118/78 (91) 100 11/23/18 19:08 91 16 40 11/23/18 17:00 97 16 40 Intake and Output 11/23/18 11/24/18 19:00 07:00 Intake Total 290.0 ml 845.0 ml Output Total 500 ml 750 ml Balance -210.0 ml 95.0 ml Free Water 100 ml 200 ml IV Total 110.0 ml 165.0 ml Tube Feeding 80 ml 480 ml Output Urine Total 50 ml 500 ml Stool Total 450 ml 250 ml # Voids 1 Laboratory Tests 11/24/18 04:00: White Blood Count 13.1H, Red Blood Count 4.64L, Hemoglobin 12.9L, Hematocrit 42.3, Mean Corpuscular Volume 91, Mean Corpuscular Hemoglobin 27.9, Mean Corpuscular Hemoglobin Concent 30.6L, Red Cell Distribution Width 16.5H, Platelet Count 276, Mean Platelet Volume 9.6, Neutrophils (%) (Auto) 68.2, Lymphocytes (%) (Auto) 15.7L, Monocytes (%) (Auto) 6.1, Eosinophils (%) (Auto) 9.3H, Basophils (%) (Auto) 0.8, Sodium Level 155H, Potassium Level 3.8, Chloride Level 118H, Carbon Dioxide Level 21, Anion Gap 16H, Blood Urea Nitrogen 32H, Creatinine 2.0H, Estimat Glomerular Filtration Rate 42.9, Glucose Level 224H, Calcium Level 10.8H Height (Feet): 5 Height (Inches): 7.00 Weight (Pounds): 202 Objective PHYSICAL EXAMINATION General Appearance: on vent HEENT: normocephalic, atraumatic Neck: non-tender, normal alignment Respiratory/Chest: chest wall non-tender, lungs clear Cardiovascular/Chest: normal peripheral pulses, normal rate Abdomen: normal bowel sounds, non tender Extremities: poorl range of motion Jimmy Fleming MD Nov 24, 2018 16:42
--- NOTE | 2018-11-24 19:12 | NUR ---
RESPIRATORY NOTE: Received pt on AC 16, 600VT, 40%, PEEP +5. Pt trach-dependent w/ a cuffed, Portex 7 tube. Pt obtunded. b/S yasmeen. rhonchi, sxn small amounts of thin, white, frothy secretions. Vent plugged into red outlet, ambubag & spare trach kit at bedside. Pt in no apparent distress at this time. Will continue plan of care.
--- NOTE | 2018-11-24 19:20 | NUR ---
HAND-OFF: Report given to .ABHISHEK BREEN
--- NOTE | 2018-11-24 19:21 | NUR ---
NURSE NOTES: Received bedside report from JAMSHID Hallman.Patient obtunded,stable,SR-ST on youth nutritional monitor,no s/s of pain,no respiratory distress noted,no fever at this moment,trach-vent Portex 7 ac 16 tv 600 fIo2 40% peep 5,GT running with Glucerna 1.5 @ 40 ml/hr,colostomy on place,BS active in all quadrants,condom cath is on place, IV asymptomatic intact KEIRA midline,Bed in a low safety position,call light within a reach,will continue to monitor and follow POC.
[2018-11-24 20:00] VITALS: BP 134/77
[2018-11-25] VITALS: BP 132/84
[2018-11-25] MEDS: NovoLOG Insulin Flexpen SUBQ SCH ×7 (00:48→20:33)
--- NOTE | 2018-11-25 02:15 | Progress Note ---
DATE: 11/24/2018 SUBJECTIVE: The patient has low-grade fever with tachycardia. PHYSICAL EXAMINATION: VITAL SIGNS: Blood pressure 132/84, pulse 92, respirations 16, and temperature 98.2. HEENT: Eyes were normal. ENT, mucous membranes are moist and intact. NECK: Supple with no JVD without lymph nodes. Tracheostomy site is clean. LUNGS: Clear without rhonchi, rales, or wheezing. Secretions are small, thin, and hodgson. HEART: Normal sounds with regular beats. There is no tachycardia at rest. ABDOMEN: Soft and nontender with normal bowel sounds. Gastrostomy site is clean. EXTREMITIES: Warm without cyanosis, clubbing, or edema. LABORATORY AND DIAGNOSTIC DATA: Hemoglobin is 12.9, hematocrit is 32.3 with MCV of 91. WBC of 17.1 and platelets 276,000. Urine culture, gram-negative bacilli species. . The patient had leukocytosis in urine. BUN and creatinine 32 and 2.0 respectively. Sodium is 135, potassium 3.8, chloride 118, CO2 21, and calcium is 10.8. PLAN: The patient is in need of vitamin vitamin D will be discontinued. Repeat laboratory tests will be done in the a.m. Sariah Bhat M.D. DR: PATTIE JOB#: [id number] CC:
[2018-11-25 04:00] VITALS: BP 133/101
[2018-11-25] MEDS: levETIRAcetam 500mg/5ml Liquid GT SCH ×3 (05:16→21:19)
[2018-11-25] MEDS: Piperacillin/Tazobactam 3.375 GM in NS 110 ML IVPB SCH (05:35)
--- NOTE | 2018-11-25 07:15 | NUR ---
HAND-OFF: Report given to JAMSHID Ramirez.Patient stable.
--- NOTE | 2018-11-25 07:16 | NUR ---
NURSE NOTES: RECEIVED PATIENT FROM Nemo ANDERSON RN. HOOKED TO [employer]. TRACH TO VENT. PORTEX 7, VENT SETTINGS AC 16, TV 600, FIO2 40, PEEP 5. NO SIGNS OF DISTRESS OF THE MOMENT. GT NOTED, DRY AND INTACT. NOTED COLOSTOMY BAG, PATENT. NOTED SKIN ALTERATION. R UA MIDLINE. CALL LIGHT WITHIN REACH. SIDE RAILS UP. BED AT LOWEST POSITION. WILL CONTINUE TO MONITOR.
--- NOTE | 2018-11-25 07:47 | NUR ---
RESPIRATORY NOTE: received pt on vent with current vent orders. pt is trached with portex 8 tube. no resp distress noted at this time. vent is plugged into redoutlet with alarms on and audible, ambu bag at bedside and back up trach. will cont to monitor.
[2018-11-25 08:00] VITALS: BP 141/93
[2018-11-25] MEDS: sitaGLIPtin 50mg tab GT SCH (09:54)
[2018-11-25] MEDS: Vitamin D 1000 IU Tab GT SCH (09:54)
[2018-11-25] MEDS: Heparin 5000 units/ml inj SUBQ SCH ×2 (10:00→20:34)
[2018-11-25] MEDS: Artificial Tears 1.4% Op Soln BOTH EYES PRN (10:03)
[2018-11-25] MEDS: Levemir Flexpen SUBQ SCH ×2 (10:03→20:33)
[2018-11-25] MEDS ORDERED: Tubing IV Secondary IV ONE (10:54)
[2018-11-25] MEDS ORDERED: NS 275ml ONE (10:54)
--- NOTE | 2018-11-25 11:04 | Infectious Diseases Prog Note ---
Assessment/Plan Assessment/Plan 83 yo female with PMHx of DM, HTN and a Cervical spinal tumor s/p resection 11/04 who presneted to the ED on 11/21/18 with SOB, nausea and constipation. UTI complicated UA (+) Indewlling kendrick UCx 11/17/17 P.a. (R Levo, otherwise S) CT abd 11/19/18 3 mm distal right ureteral calculus, minimal resultant hydronephrosis. Atrophic left kidney, containing a large staghorn calculus and multiple intrarenal calyceal calculi, previously described Leukocytosis 15 on admit; improved Aebrile to 102; improving -11/23 CXR: Hypoventilatory lungs. Left lung base atelectasis. Mild pancreatitis Chronic resp failure - vent/trach dependent ICH COPD DM Seizure disorder BPH Dysphagia, G tube Colostomy Plan - Start Cefepime for UTI - Tx enterobacter - 11/25/18 SP Zosyn # 7 - 11/22/18 SP Vanocmcyin #4- No evidence for MRSA - Monitor CBC and temps Thank you for this consult. We will continue to follow the patient during this hospitalization. Subjective Allergies: Coded Allergies: AZTREONAM (Verified Allergy, Unknown, 05/13/18) Subjective Afebrile Mild leukocytosis continues Objective Vital Signs Last 24 Hour Vital Signs Date Time Temp Pulse Resp B/P (MAP) Pulse Ox O2 Delivery O2 Flow Rate FiO2 11/25/18 08:50 95 17 40 11/25/18 08:00 113 11/25/18 08:00 98.8 96 16 141/93 (109) 99 11/25/18 07:43 98 21 40 11/25/18 05:25 93 16 40 11/25/18 04:00 99.3 93 22 133/101 (112) 100 11/25/18 04:00 40 11/25/18 04:00 Mechanical Ventilator 11/25/18 03:41 90 11/25/18 03:15 91 17 40 11/25/18 01:25 91 16 40 11/25/18 00:00 99.1 92 18 132/84 (100) 100 11/25/18 00:00 Mechanical Ventilator 11/24/18 23:41 92 11/24/18 22:54 90 17 40 11/24/18 21:07 93 16 40 11/24/18 20:00 96 11/24/18 20:00 40 11/24/18 20:00 98.2 91 20 134/77 (96) 100 11/24/18 20:00 Mechanical Ventilator 11/24/18 19:10 94 16 40 11/24/18 16:45 101 16 40 11/24/18 16:19 98.7 103 17 101/77 (85) 100 11/24/18 16:00 40 11/24/18 16:00 Mechanical Ventilator 11/24/18 15:43 106 11/24/18 15:12 104 16 40 11/24/18 13:00 102 16 40 11/24/18 12:00 40 11/24/18 12:00 Mechanical Ventilator 11/24/18 11:50 110 11/24/18 11:47 98.9 107 18 109/76 (87) 100 11/24/18 11:13 101 16 40 Height (Feet): 5 Height (Inches): 7.00 Weight (Pounds): 202 Objective Gen: NAD, On vent HEENT: NCAT, MMM, trached LUNGS: CTAB, No W CARDS: RRR, S1, S2, No M/R/G, ABD: Soft, Obese, NT, ND,, + BS,PEG and Colostomy (No E/P) Microbiology Date/Time Source Procedure Growth Status 11/23/18 04:00 Urine,Clean Catch Urine Culture - Preliminary Enterobacter Aerogenes Yeast Species Resulted Current Medications Medications (Trade) Dose Ordered Sig/Va Route PRN Reason Start Time Stop Time Status Last Admin Dose Admin Acetaminophen (Tylenol) 650 mg Q4H PRN GT Mild Pain/Temp > 100.5 11/18/18 08:15 12/18/18 08:14 11/22/18 17:38 Artificial Tears (Akwa-Tears) 1 drop Q4H PRN BOTH EYES Dry Eyes 11/18/18 07:45 12/18/18 07:44 11/25/18 10:03 Baclofen (Lioresal) 10 mg EVERY 8 HOURS GT 11/18/18 14:00 12/18/18 13:59 11/25/18 05:15 Dextrose (Dextrose 50%) 25 ml Q30M PRN IV Hypoglycemia 11/18/18 07:45 12/18/18 07:44 Dextrose (Dextrose 50%) 50 ml Q30M PRN IV Hypoglycemia 11/18/18 07:45 12/18/18 07:44 Heparin Sodium (Porcine) (Heparin 5000 units/ml) 5,000 units EVERY 12 HOURS SUBQ 11/18/18 09:00 12/18/18 08:59 11/25/18 10:00 Insulin Aspart (NovoLOG) EVERY 4 HOURS SUBQ 11/20/18 13:00 12/18/18 11:59 11/25/18 10:01 Insulin Detemir (Levemir) 15 units Q12HR SUBQ 11/19/18 00:00 12/19/18 00:00 11/25/18 10:03 Lansoprazole (Prevacid) 30 mg DAILY GT 11/21/18 09:00 12/21/18 08:59 11/25/18 09:54 Levetiracetam (Keppra) 1,000 mg EVERY 8 HOURS GT 11/18/18 14:00 12/18/18 13:59 11/25/18 05:16 Nystatin (Nystatin Cr) 1 applic EVERY 12 HOURS TOPIC 11/18/18 09:00 12/18/18 08:59 11/25/18 10:04 Piperacillin Sod/ Tazobactam Sod 3.375 gm/Sodium Chloride 110 ml @ 27.5 mls/hr Q8HR IVPB 11/18/18 10:00 11/30/18 09:59 11/25/18 05:35 Polyethylene Glycol (Miralax) 17 gm DAILYPRN PRN GT Constipation 11/18/18 07:45 12/18/18 07:44 Silver Sulfadiazine (Silvadene Cream 25gm) 1 applic BEDTIME TOPIC 11/23/18 21:00 12/18/18 08:59 11/24/18 21:15 Sitagliptin Phosphate (Januvia) 50 mg DAILY GT 11/18/18 09:00 12/18/18 08:59 11/25/18 09:54 Vitamin D (Vitamin D) 1,000 intlu DAILY GT 11/18/18 09:00 12/18/18 08:59 11/25/18 09:54 Kali Richter MD Nov 25, 2018 11:04
[2018-11-25 12:00] VITALS: BP 115/85
--- NOTE | 2018-11-25 12:58 | Pulmonolgy Critical Care Note ---
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 (6) Vegetative state (7) Diabetes mellitus Respiratory: monitor respiratory rate Cardiac: continue pressors Renal: keep IV fluid Infectious Disease: check cultures Gastrointestinal: continue feedings/current rate Endocrine: monitor blood sugar, check HgA1C Hematologic: transfuse if hgb<8.5 Neurologic: PRN Morphine, keep patient comfortable Affect: PRN ativan Prophylaxis: Heparin Time Spent (Minutes): 40 Notes Reviewed: before school, cardio, renal Discussed with: nurses, consultants, rn case mgrmanager of broadcast content - Objective Last 24 Hour Vital Signs Date Time Temp Pulse Resp B/P (MAP) Pulse Ox O2 Delivery O2 Flow Rate FiO2 11/25/18 11:03 97 16 40 11/25/18 08:50 95 17 40 11/25/18 08:00 Mechanical Ventilator 11/25/18 08:00 113 11/25/18 08:00 98.8 96 16 141/93 (109) 99 11/25/18 08:00 40 11/25/18 07:43 98 21 40 11/25/18 05:25 93 16 40 11/25/18 04:00 99.3 93 22 133/101 (112) 100 11/25/18 04:00 40 11/25/18 04:00 Mechanical Ventilator 11/25/18 03:41 90 11/25/18 03:15 91 17 40 11/25/18 01:25 91 16 40 11/25/18 00:00 99.1 92 18 132/84 (100) 100 11/25/18 00:00 Mechanical Ventilator 11/24/18 23:41 92 11/24/18 22:54 90 17 40 11/24/18 21:07 93 16 40 11/24/18 20:00 96 11/24/18 20:00 40 11/24/18 20:00 98.2 91 20 134/77 (96) 100 11/24/18 20:00 Mechanical Ventilator 11/24/18 19:10 94 16 40 11/24/18 16:45 101 16 40 11/24/18 16:19 98.7 103 17 101/77 (85) 100 11/24/18 16:00 40 11/24/18 16:00 Mechanical Ventilator 11/24/18 15:43 106 11/24/18 15:12 104 16 40 11/24/18 13:00 102 16 40 HEENT: atraumatic Lungs: chest wall tender Heart: HR/BP stable Abdomen: soft, active bowel sounds Extremities: no C/C/E, edema Micro: Microbiology Date/Time Source Procedure Growth Status 11/23/18 04:00 Urine,Clean Catch Urine Culture - Preliminary Enterobacter Aerogenes Yeast Species Resulted Accucheck: 143 Critical Care - Subjective ROS Limited/Unobtainable: Yes Condition: critical EKG Rhythm: Sinus Rhythm FI02: 40 Vent Support Breath Rate: 16 Vent Support Mode: AC Vent Tidal Volume: 600 Sputum Amount: Moderate PEEP: 5.0 PIP: 31 Tube Feeding Amount: 40 I&O: Intake and Output 11/24/18 11/25/18 18:59 06:59 Intake Total 840.0 ml 307.5 ml Output Total 950 ml 600 ml Balance -110.0 ml -292.5 ml Free Water 250 ml 20 ml IV Total 110.0 ml 87.5 ml Tube Feeding 480 ml 200 ml Output Urine Total 650 ml 400 ml Stool Total 300 ml 200 ml Nico Goetz MD Nov 25, 2018 12:58
[2018-11-25] MEDS: Cefepime HCl 2 GM in D5W 55 ML IVPB SCH (13:00)
--- NOTE | 2018-11-25 14:00 | NUR ---
*-* INSURANCE *-* CLINICALS AND REVIEW FAXED TO: [employer] LACEY:MINERVA P:[phone] F:[phone] REF#[id number]
[2018-11-25 16:00] VITALS: BP 110/74
--- NOTE | 2018-11-25 18:26 | General Progress Note ---
Assessment/Plan Assessment/Plan Assessment/Recommendations Leukocytosis. Likely related to underlying infection versus reactive process. --> Peripheral has been reviewed --> Medications have been reviewed --> Imaging has been reviewed -->Blood cultures and urine cultures prn --> has been started on abx, empiric treatment --> wbc trend: 14-->11-->9-->12->13 # acute pancreatitis, status post cerebral hemorrhage with severe encephalopathy. # ventilator-dependent. We will continue the same ventilator setting. 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 Subjective ROS Limited/Unobtainable: Yes Allergies: Coded Allergies: AZTREONAM (Verified Allergy, Unknown, 05/13/18) Subjective 2/1: Pt is seen in the room,on vent, G tube, leukocytosis has been improving and his fevers have resolved. 2/3: on vent, resting in bed, wbc trending up, no fevers or chills, 2/4: The patient has low-grade fever with tachycardia, CXR reveals small left pleural effusion. Objective Last 24 Hour Vital Signs Date Time Temp Pulse Resp B/P (MAP) Pulse Ox O2 Delivery O2 Flow Rate FiO2 11/25/18 16:43 109 17 40 11/25/18 16:00 98.6 107 16 110/74 (86) 99 11/25/18 16:00 Mechanical Ventilator 11/25/18 16:00 103 11/25/18 16:00 40 11/25/18 14:32 97 17 40 11/25/18 13:10 95 16 40 11/25/18 12:00 98.4 98 16 115/85 (95) 100 11/25/18 12:00 99 11/25/18 12:00 40 11/25/18 12:00 Mechanical Ventilator 11/25/18 11:03 97 16 40 11/25/18 08:50 95 17 40 11/25/18 08:00 Mechanical Ventilator 11/25/18 08:00 113 11/25/18 08:00 98.8 96 16 141/93 (109) 99 11/25/18 08:00 40 11/25/18 07:43 98 21 40 11/25/18 05:25 93 16 40 11/25/18 04:00 99.3 93 22 133/101 (112) 100 11/25/18 04:00 40 11/25/18 04:00 Mechanical Ventilator 11/25/18 03:41 90 11/25/18 03:15 91 17 40 11/25/18 01:25 91 16 40 11/25/18 00:00 99.1 92 18 132/84 (100) 100 11/25/18 00:00 Mechanical Ventilator 11/24/18 23:41 92 11/24/18 22:54 90 17 40 11/24/18 21:07 93 16 40 11/24/18 20:00 96 11/24/18 20:00 40 11/24/18 20:00 98.2 91 20 134/77 (96) 100 11/24/18 20:00 Mechanical Ventilator 11/24/18 19:10 94 16 40 Intake and Output 11/24/18 11/25/18 18:59 06:59 Intake Total 840.0 ml 307.5 ml Output Total 950 ml 600 ml Balance -110.0 ml -292.5 ml Free Water 250 ml 20 ml IV Total 110.0 ml 87.5 ml Tube Feeding 480 ml 200 ml Output Urine Total 650 ml 400 ml Stool Total 300 ml 200 ml Height (Feet): 5 Height (Inches): 7.00 Weight (Pounds): 202 Objective PHYSICAL EXAMINATION General Appearance: on vent HEENT: normocephalic, atraumatic Neck: non-tender, normal alignment Respiratory/Chest: chest wall non-tender, lungs clear Cardiovascular/Chest: normal peripheral pulses, normal rate Abdomen: normal bowel sounds, non tender Extremities: poorl range of motion Jimmy Fleming MD Nov 25, 2018 18:26
--- NOTE | 2018-11-25 18:39 | Cardiology Report ---
APPROVED REPORT EKG Measurement Heart [id number] Sinus tachycardia Possible Left atrial enlargement Nonspecific T wave abnormality Abnormal ECG
--- NOTE | 2018-11-25 19:39 | NUR ---
HAND-OFF: Report given to JAMSHID Sierra.
--- NOTE | 2018-11-25 19:40 | NUR ---
NURSE NOTES: Received pt at bedside by JAMSHID Ramirez. Pt is obtunded, no response to deep pain. lunchroom monitor showing ST. Portex 7, AC 16, TV 600, FiO2 40, PEEP 5; sating 100%. GT running Glucerna 1.5 @ 40, WF 200, prosource BID; patent, 60cc residual, will monitor. Colostomy asymptomatic, 125 ml output. Condom cath intact, yellow urine noted. KEIRA midline asymptomatic running TKO. Skin is clean and dry, dressings intact, pt turned. LABS unremarkable MD aware of sodium. Bed is locked in lowest position, call gallardo within reach, side rails x3, sz precautions continued. Will continue with plan of care and continue to monitor.
[2018-11-25 20:00] VITALS: BP 118/85
[2018-11-26] VITALS: BP 107/79
[2018-11-26] MEDS: NovoLOG Insulin Flexpen SUBQ SCH ×6 (02:21→21:30)
[2018-11-26 04:00] VITALS: BP 118/76
[2018-11-26] MEDS: levETIRAcetam 500mg/5ml Liquid GT SCH ×3 (05:06→21:27)
[2018-11-26 05:32] LABS: EOSINOPHILS % (AUTO) 10.9 % (0.0-3.0); HEMATOCRIT 38.6 % (42.0-52.0); HEMOGLOBIN 12.1 G/DL (14.2-18.0); LYMPHOCYTES % (AUTO) 18.8 % (20.0-45.0); MEAN CORPUSCULAR VOLUME 92 FL (80-99); MONOCYTES % (AUTO) 5.1 % (1.0-10.0); NEUTROPHILS % (AUTO) 64.2 % (45.0-75.0); PLATELET COUNT 292 K/UL (150-450); RED BLOOD COUNT 4.19 M/UL (4.70-6.10); RED CELL DISTRIBUTION WIDTH 16.5 % (11.6-14.8); WHITE BLOOD COUNT 14.4 K/UL (4.8-10.8)
[2018-11-26 06:04] LABS: ALANINE AMINOTRANSFERASE 56 U/L (12-78); ALBUMIN 2.8 G/DL (3.4-5.0); ALBUMIN/GLOBULIN RATIO 0.5 (1.0-2.7); ALKALINE PHOSPHATASE 97 U/L (46-116); ANION GAP 16 mmol/L (5-15); ASPARTATE AMINO TRANSFERASE 81 U/L (15-37); BILIRUBIN,TOTAL 0.6 MG/DL (0.2-1.0); BLOOD UREA NITROGEN 33 mg/dL (7-18); CALCIUM 9.9 MG/DL (8.5-10.1); CARBON DIOXIDE 19 MMOL/L (21-32); CHLORIDE 120 MMOL/L (98-107); CREATININE 2.2 MG/DL (0.55-1.30); PHOSPHORUS 2.3 MG/DL (2.5-4.9); POTASSIUM 3.5 MMOL/L (3.5-5.1); SODIUM 155 MMOL/L (136-145)
--- NOTE | 2018-11-26 07:06 | NUR ---
HAND-OFF: Report given to JAMSHID Adams. Pt VSS, no s/s of distress noted.
[2018-11-26 08:00] VITALS: BP 147/86
[2018-11-26] MEDS: Vitamin D 1000 IU Tab GT SCH (08:52)
[2018-11-26] MEDS: sitaGLIPtin 50mg tab GT SCH (08:52)
[2018-11-26] MEDS: Heparin 5000 units/ml inj SUBQ SCH ×2 (08:53→21:29)
[2018-11-26] MEDS: Levemir Flexpen SUBQ SCH ×2 (08:57→21:30)
[2018-11-26] MEDS: Artificial Tears 1.4% Op Soln BOTH EYES PRN (08:59)
--- NOTE | 2018-11-26 09:37 | Infectious Diseases Prog Note ---
Assessment/Plan Assessment/Plan 83 yo female with PMHx of DM, HTN and a Cervical spinal tumor s/p resection 11/04 who presneted to the ED on 11/21/18 with SOB, nausea and constipation. UTI complicated UA (+) Indewlling kendrick UCx 11/17/18 P.a. (R Levo, otherwise S) UCx 11/23/18 - Enterobacter and yeast CT abd 11/19/18 3 mm distal right ureteral calculus, minimal resultant hydronephrosis. Atrophic left kidney, containing a large staghorn calculus and multiple intrarenal calyceal calculi, previously described Leukocytosis 15 on admit; improved Aebrile to 102; resolved -11/23 CXR: Hypoventilatory lungs. Left lung base atelectasis. Mild pancreatitis Chronic resp failure - vent/trach dependent ICH COPD DM Seizure disorder BPH Dysphagia, G tube Colostomy Plan - Cefepime #2 for UTI - Tx enterobacter - 11/25/18 SP Zosyn # 7 - 11/22/18 SP Vanocmcyin #4- No evidence for MRSA - Monitor CBC and temps We will continue to follow the patient during this hospitalization. Subjective Allergies: Coded Allergies: AZTREONAM (Verified Allergy, Unknown, 05/13/18) Subjective Afebrile Mild leukocytosis Objective Vital Signs Last 24 Hour Vital Signs Date Time Temp Pulse Resp B/P (MAP) Pulse Ox O2 Delivery O2 Flow Rate FiO2 11/26/18 09:11 100 16 40 11/26/18 08:00 98.1 107 20 147/86 (106) 100 11/26/18 08:00 Mechanical Ventilator 11/26/18 08:00 40 11/26/18 08:00 100 11/26/18 07:00 102 16 40 11/26/18 05:20 101 16 40 11/26/18 04:00 98.2 107 16 118/76 (90) 100 11/26/18 04:00 40 11/26/18 04:00 Mechanical Ventilator 11/26/18 04:00 104 11/26/18 03:00 107 18 40 11/26/18 01:07 104 16 40 11/26/18 00:00 Mechanical Ventilator 11/26/18 00:00 40 11/26/18 00:00 99.5 102 16 107/79 (88) 100 11/26/18 00:00 106 11/25/18 23:17 105 17 40 11/25/18 21:30 104 16 40 11/25/18 20:00 99.3 102 16 118/85 (96) 100 11/25/18 20:00 103 11/25/18 20:00 Mechanical Ventilator 11/25/18 19:38 106 17 40 11/25/18 16:43 109 17 40 11/25/18 16:00 98.6 107 16 110/74 (86) 99 11/25/18 16:00 Mechanical Ventilator 11/25/18 16:00 103 11/25/18 16:00 40 11/25/18 14:32 97 17 40 11/25/18 13:10 95 16 40 11/25/18 12:00 98.4 98 16 115/85 (95) 100 11/25/18 12:00 99 11/25/18 12:00 40 11/25/18 12:00 Mechanical Ventilator 11/25/18 11:03 97 16 40 Height (Feet): 5 Height (Inches): 7.00 Weight (Pounds): 202 Objective Gen: NAD, On vent satting well HEENT: NCAT, MMM, trached LUNGS: CTAB, No W CARDS: RRR, S1, S2, No M/R/G, ABD: Soft, Obese, NT, ND,, + BS,PEG and Colostomy (No E/P) Laboratory Tests Test 11/26/18 03:20 White Blood Count 14.4 K/UL (4.8-10.8) H Red Blood Count 4.19 M/UL (4.70-6.10) L Hemoglobin 12.1 G/DL (14.2-18.0) L Hematocrit 38.6 % (42.0-52.0) L Mean Corpuscular Volume 92 FL (80-99) Mean Corpuscular Hemoglobin 28.9 PG (27.0-31.0) Mean Corpuscular Hemoglobin Concent 31.5 G/DL (32.0-36.0) L Red Cell Distribution Width 16.5 % (11.6-14.8) H Platelet Count 292 K/UL (150-450) Mean Platelet Volume 9.5 FL (6.5-10.1) Neutrophils (%) (Auto) 64.2 % (45.0-75.0) Lymphocytes (%) (Auto) 18.8 % (20.0-45.0) L Monocytes (%) (Auto) 5.1 % (1.0-10.0) Eosinophils (%) (Auto) 10.9 % (0.0-3.0) H Basophils (%) (Auto) 1.0 % (0.0-2.0) Sodium Level 155 MMOL/L (136-145) H Potassium Level 3.5 MMOL/L (3.5-5.1) Chloride Level 120 MMOL/L (98-107) H Carbon Dioxide Level 19 MMOL/L (21-32) L Anion Gap 16 mmol/L (5-15) H Blood Urea Nitrogen 33 mg/dL (7-18) H Creatinine 2.2 MG/DL (0.55-1.30) H Estimat Glomerular Filtration Rate 38.4 mL/min (>60) Glucose Level 200 MG/DL (74-106) H Calcium Level 9.9 MG/DL (8.5-10.1) Phosphorus Level 2.3 MG/DL (2.5-4.9) L Magnesium Level 2.4 MG/DL (1.8-2.4) Total Bilirubin 0.6 MG/DL (0.2-1.0) Aspartate Amino Transf (AST/SGOT) 81 U/L (15-37) H Alanine Aminotransferase (ALT/SGPT) 56 U/L (12-78) Alkaline Phosphatase 97 U/L (46-116) Total Protein 8.5 G/DL (6.4-8.2) H Albumin 2.8 G/DL (3.4-5.0) L Globulin 5.7 g/dL Albumin/Globulin Ratio 0.5 (1.0-2.7) L Current Medications Medications (Trade) Dose Ordered Sig/Va Route PRN Reason Start Time Stop Time Status Last Admin Dose Admin Acetaminophen (Tylenol) 650 mg Q4H PRN GT Mild Pain/Temp > 100.5 11/18/18 08:15 12/18/18 08:14 11/22/18 17:38 Artificial Tears (Akwa-Tears) 1 drop Q4H PRN BOTH EYES Dry Eyes 11/18/18 07:45 12/18/18 07:44 11/26/18 08:59 Baclofen (Lioresal) 10 mg EVERY 8 HOURS GT 11/18/18 14:00 12/18/18 13:59 11/26/18 05:03 Cefepime HCl 2 gm/ Dextrose 55 ml @ 110 mls/hr Q24H IVPB 11/25/18 13:00 12/02/18 12:59 11/25/18 13:00 Dextrose (Dextrose 50%) 25 ml Q30M PRN IV Hypoglycemia 11/18/18 07:45 12/18/18 07:44 Dextrose (Dextrose 50%) 50 ml Q30M PRN IV Hypoglycemia 11/18/18 07:45 12/18/18 07:44 Heparin Sodium (Porcine) (Heparin 5000 units/ml) 5,000 units EVERY 12 HOURS SUBQ 11/18/18 09:00 12/18/18 08:59 11/26/18 08:53 Insulin Aspart (NovoLOG) EVERY 4 HOURS SUBQ 11/20/18 13:00 12/18/18 11:59 11/26/18 08:58 Insulin Detemir (Levemir) 15 units Q12HR SUBQ 11/19/18 00:00 12/19/18 00:00 11/26/18 08:57 Lansoprazole (Prevacid) 30 mg DAILY GT 11/21/18 09:00 12/21/18 08:59 11/26/18 08:52 Levetiracetam (Keppra) 1,000 mg EVERY 8 HOURS GT 11/18/18 14:00 12/18/18 13:59 11/26/18 05:06 Nystatin (Nystatin Cr) 1 applic EVERY 12 HOURS TOPIC 11/18/18 09:00 12/18/18 08:59 11/26/18 09:30 Polyethylene Glycol (Miralax) 17 gm DAILYPRN PRN GT Constipation 11/18/18 07:45 12/18/18 07:44 Silver Sulfadiazine (Silvadene Cream 25gm) 1 applic BEDTIME TOPIC 11/23/18 21:00 12/18/18 08:59 11/25/18 20:23 Sitagliptin Phosphate (Januvia) 50 mg DAILY GT 11/18/18 09:00 12/18/18 08:59 11/26/18 08:52 Vitamin D (Vitamin D) 1,000 intlu DAILY GT 11/18/18 09:00 12/18/18 08:59 11/26/18 08:52 Kali Richter MD Nov 26, 2018 09:37
--- NOTE | 2018-11-26 11:12 | Pulmonolgy Critical Care Note ---
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 (6) Vegetative state (7) Diabetes mellitus Respiratory: monitor respiratory rate, adjust FIO2, CXR Cardiac: continue to monitor HR/BP Renal: F/U I&O, keep IV fluid Infectious Disease: check cultures Gastrointestinal: continue feedings/current rate Endocrine: monitor blood sugar, check TSH Hematologic: transfuse if hgb<8.5 Neurologic: PRN Ativan, keep patient comfortable Prophylaxis: Heparin Disposition: keep in ICU Notes Reviewed: trader fixed income, renal Discussed with: nurses, consultants, caser inmanager photography - Objective Last 24 Hour Vital Signs Date Time Temp Pulse Resp B/P (MAP) Pulse Ox O2 Delivery O2 Flow Rate FiO2 11/26/18 09:11 100 16 40 11/26/18 08:00 98.1 107 20 147/86 (106) 100 11/26/18 08:00 Mechanical Ventilator 11/26/18 08:00 40 11/26/18 08:00 100 11/26/18 07:00 102 16 40 11/26/18 05:20 101 16 40 11/26/18 04:00 98.2 107 16 118/76 (90) 100 11/26/18 04:00 40 11/26/18 04:00 Mechanical Ventilator 11/26/18 04:00 104 11/26/18 03:00 107 18 40 11/26/18 01:07 104 16 40 11/26/18 00:00 Mechanical Ventilator 11/26/18 00:00 40 11/26/18 00:00 99.5 102 16 107/79 (88) 100 11/26/18 00:00 106 11/25/18 23:17 105 17 40 11/25/18 21:30 104 16 40 11/25/18 20:00 99.3 102 16 118/85 (96) 100 11/25/18 20:00 103 11/25/18 20:00 Mechanical Ventilator 11/25/18 19:38 106 17 40 11/25/18 16:43 109 17 40 11/25/18 16:00 98.6 107 16 110/74 (86) 99 11/25/18 16:00 Mechanical Ventilator 11/25/18 16:00 103 11/25/18 16:00 40 11/25/18 14:32 97 17 40 11/25/18 13:10 95 16 40 11/25/18 12:00 98.4 98 16 115/85 (95) 100 11/25/18 12:00 99 11/25/18 12:00 40 11/25/18 12:00 Mechanical Ventilator Status: awake Condition: critical Neck: full ROM Heart: HR/BP stable, HR/BP unstable Abdomen: soft, active bowel sounds Extremities: no C/C/E Decubiti: location Accucheck: 198 Critical Care - Subjective ROS Limited/Unobtainable: Yes Condition: critical EKG Rhythm: Sinus Rhythm FI02: 40 Vent Support Breath Rate: 16 Vent Support Mode: AC Vent Tidal Volume: 600 Sputum Amount: Small PEEP: 5.0 PIP: 37 Tube Feeding Amount: 40 I&O: Intake and Output 11/25/18 11/26/18 19:00 07:00 Intake Total 650 ml 530 ml Output Total 250 ml 275 ml Balance 400 ml 255 ml Free Water 30 ml 90 ml IV Total 100 ml Tube Feeding 520 ml 440 ml Output Urine Total 250 ml Stool Total 275 ml CXR: YESSICA, Labs: Laboratory Tests Test 11/26/18 03:20 White Blood Count 14.4 K/UL (4.8-10.8) H Red Blood Count 4.19 M/UL (4.70-6.10) L Hemoglobin 12.1 G/DL (14.2-18.0) L Hematocrit 38.6 % (42.0-52.0) L Mean Corpuscular Volume 92 FL (80-99) Mean Corpuscular Hemoglobin 28.9 PG (27.0-31.0) Mean Corpuscular Hemoglobin Concent 31.5 G/DL (32.0-36.0) L Red Cell Distribution Width 16.5 % (11.6-14.8) H Platelet Count 292 K/UL (150-450) Mean Platelet Volume 9.5 FL (6.5-10.1) Neutrophils (%) (Auto) 64.2 % (45.0-75.0) Lymphocytes (%) (Auto) 18.8 % (20.0-45.0) L Monocytes (%) (Auto) 5.1 % (1.0-10.0) Eosinophils (%) (Auto) 10.9 % (0.0-3.0) H Basophils (%) (Auto) 1.0 % (0.0-2.0) Sodium Level 155 MMOL/L (136-145) H Potassium Level 3.5 MMOL/L (3.5-5.1) Chloride Level 120 MMOL/L (98-107) H Carbon Dioxide Level 19 MMOL/L (21-32) L Anion Gap 16 mmol/L (5-15) H Blood Urea Nitrogen 33 mg/dL (7-18) H Creatinine 2.2 MG/DL (0.55-1.30) H Estimat Glomerular Filtration Rate 38.4 mL/min (>60) Glucose Level 200 MG/DL (74-106) H Calcium Level 9.9 MG/DL (8.5-10.1) Phosphorus Level 2.3 MG/DL (2.5-4.9) L Magnesium Level 2.4 MG/DL (1.8-2.4) Total Bilirubin 0.6 MG/DL (0.2-1.0) Aspartate Amino Transf (AST/SGOT) 81 U/L (15-37) H Alanine Aminotransferase (ALT/SGPT) 56 U/L (12-78) Alkaline Phosphatase 97 U/L (46-116) Total Protein 8.5 G/DL (6.4-8.2) H Albumin 2.8 G/DL (3.4-5.0) L Globulin 5.7 g/dL Albumin/Globulin Ratio 0.5 (1.0-2.7) L Nico Goetz MD Nov 26, 2018 11:12
[2018-11-26 11:50] VITALS: BP 119/84
--- NOTE | 2018-11-26 12:23 | NUR ---
WALLCOVERING HANGERARCHIVES TECHNICIAN SI: RESP FAILURE TRACH/VENT DEPENDENT, SEPSIS T. 98.1 HR 107 RR 20 B/P 147/86 AC 16 TV 600 FIO2 40% PEEP 5 WBC 14.4 NA 155 AGAP 16 BUN 33 CR 2.2 IS: CEFEPIME IV KEPPRA GT HEPARIN SUBC BACLOFEN GT STEP DOWN UNIT
[2018-11-26] MEDS ORDERED: NS 275ml ONE (12:47)
[2018-11-26] MEDS: Cefepime HCl 2 GM in D5W 55 ML IVPB SCH (13:15)
--- NOTE | 2018-11-26 13:28 | NUR ---
NETWORK DEVELOPMENT COORDINATOR NOTES SPOKE WITH MUKUND FROM [employer] [facility], TELEPHONE REVIEW GIVEN. MUKUND [phone]
--- NOTE | 2018-11-26 14:06 | NUR ---
*-* INSURANCE *-* CLINICALS AND REVIEW FAXED TO: [employer] LACEY:MINERVA P:[phone] F:[phone] REF#[id number]
--- NOTE | 2018-11-26 14:35 | NUR ---
NURSE NOTES:WOUND CARE FOLLOW-UP NOTES:Pt noted to have open serous blister L earlobe with 25% flap loss .wound bed viable.Periwound without erythema .Skin assessed under trach collar and no evidence of skin breakdown noted. Bilat upper ext edematous .Multiple serous blisters noted to all 5 digits on R hand with open blister laterally R5th(Baby)finger with 80% flap loss.Wound bed moist with biofilm .Dry eschar noted distally R index finger. Area around R wrist macerated. L hand swollen with reabsorbed blister noted to dorsally R hand with dry brown eschar.Small serous blister noted to L baby finger. fungal dermatitis lower abd ,Lumbar/Sacral area ,groin, scrotum and penis with erythema and dry peeling skin..Full thickness pressure injury to sacrum resolving(L)3cm x (W)2cm .Wound bed viable with non-blanchable erythema Periwound with additional scattered partial thickness openings encompassing an area totaling (L)7cm x (W)8cm. Resolving pressure injury L trochanter (L)1.5cm x (W01cm .Wound bed viable ,edges adherent .Periwound without erythema or induration .No odor or exudate noted.Both heels dry and blanchable and are off-loaded with pillows. Tx.Plan:Cleanse R pinky finger with Saline.Apply Silvasorb Gel .Cover with Optifoam drsg .Change every 3 days and prn. Apply Cavilon Skin Barrier to blisters on fingers R hand .Wrap R hand weaving kerlix loosely around fingers.Change every 3 days and prn. Apply Hydrogel to sacral wound.Apply Triad periwound .Cover with Optifoam drsg .Change every 3 days and prn. Apply Cavilon to both heels and off-load heels with pillow. Reposition at least every 2hours or as tolerated.
[2018-11-26 16:00] VITALS: BP 115/81
--- NOTE | 2018-11-26 17:07 | General Progress Note ---
Assessment/Plan Assessment/Plan Assessment/Recommendations # Leukocytosis. Likely related to underlying infection versus reactive process. --> Peripheral has been reviewed --> Medications have been reviewed --> Imaging has been reviewed -->Blood cultures and urine cultures prn --> has been started on abx, empiric treatment --> wbc trend: 14-->11-->9-->12->13 # Anemia of chronic disease --> w/u has been reviewed from prior hospitalizations # Acute pancreatitis, status post cerebral hemorrhage with severe encephalopathy. # Acute on chronic respiratory failure --> ventilator dependent and fed via gastrostomy tube --> Continue with albuterol sulfate and ipratropium # Diabetes mellitus -->Humalog insulin with sliding scale every six hours # Sepsis # Gastrostomy tube dependent # Colostomy in place # Vegetative state The timing of this note does not necessarily reflect the time of the patient was seen Greatly appreciate consultation! Subjective Constitutional: Denies: no symptoms, chills, diaphoresis, fever, malaise, weakness, other HEENT: Denies: no symptoms, eye pain, blurred vision, tearing, double vision, ear pain, ear discharge, nose pain, nose congestion, throat pain, throat swelling, mouth pain, mouth swelling, other Respiratory: Denies: no symptoms, cough, orthopnea, shortness of breath, SOB with excertion, SOB at rest, sputum, stridor, wheezing, other Gastrointestinal/Abdominal: Denies: no symptoms, abdomen distended, abdominal pain, black stools, tarry stools, blood in stool, constipated, diarrhea, difficulty swallowing, nausea, poor appetite, poor fluid intake, rectal bleeding , vomiting, other Genitourinary: Denies: no symptoms, burning, discharge, frequency, flank pain, hematuria, incontinence, pain, urgency, other Neurologic/Psychiatric: Denies: no symptoms, anxiety, depressed, emotional problems, headache, numbness, paresthesia, pre-existing deficit, seizure, tingling, tremors, weakness, other Allergies: Coded Allergies: AZTREONAM (Verified Allergy, Unknown, 05/13/18) Subjective 2/1: Pt is seen in the room,on vent, G tube, leukocytosis has been improving and his fevers have resolved. 2/3: on vent, resting in bed, wbc trending up, no fevers or chills, 2/4: The patient has low-grade fever with tachycardia, CXR reveals small left pleural effusion. 11/26: no events, labs reviewed, h/h appers stable at this time, imaging reviewed Objective Last 24 Hour Vital Signs Date Time Temp Pulse Resp B/P (MAP) Pulse Ox O2 Delivery O2 Flow Rate FiO2 11/26/18 16:00 40 11/26/18 16:00 Mechanical Ventilator 11/26/18 16:00 98.8 104 16 115/81 (92) 100 11/26/18 15:02 105 17 40 11/26/18 13:27 102 17 40 11/26/18 12:00 105 11/26/18 12:00 Mechanical Ventilator 11/26/18 12:00 40 11/26/18 11:50 98.6 100 16 119/84 (96) 100 11/26/18 11:13 102 16 40 11/26/18 09:11 100 16 40 11/26/18 08:00 98.1 107 20 147/86 (106) 100 11/26/18 08:00 Mechanical Ventilator 11/26/18 08:00 40 11/26/18 08:00 100 11/26/18 07:00 102 16 40 11/26/18 05:20 101 16 40 11/26/18 04:00 98.2 107 16 118/76 (90) 100 11/26/18 04:00 40 11/26/18 04:00 Mechanical Ventilator 11/26/18 04:00 104 11/26/18 03:00 107 18 40 11/26/18 01:07 104 16 40 11/26/18 00:00 Mechanical Ventilator 11/26/18 00:00 40 11/26/18 00:00 99.5 102 16 107/79 (88) 100 11/26/18 00:00 106 11/25/18 23:17 105 17 40 11/25/18 21:30 104 16 40 11/25/18 20:00 99.3 102 16 118/85 (96) 100 11/25/18 20:00 103 11/25/18 20:00 Mechanical Ventilator 11/25/18 19:38 106 17 40 Intake and Output 11/25/18 11/26/18 18:59 06:59 Intake Total 677.5 ml 570 ml Output Total 250 ml 275 ml Balance 427.5 ml 295 ml Free Water 30 ml 90 ml IV Total 127.5 ml Tube Feeding 520 ml 480 ml Output Urine Total 250 ml Stool Total 275 ml Laboratory Tests 11/26/18 03:20: White Blood Count 14.4H, Red Blood Count 4.19L, Hemoglobin 12.1L, Hematocrit 38.6L, Mean Corpuscular Volume 92, Mean Corpuscular Hemoglobin 28.9, Mean Corpuscular Hemoglobin Concent 31.5L, Red Cell Distribution Width 16.5H, Platelet Count 292, Mean Platelet Volume 9.5, Neutrophils (%) (Auto) 64.2, Lymphocytes (%) (Auto) 18.8L, Monocytes (%) (Auto) 5.1, Eosinophils (%) (Auto) 10.9H, Basophils (%) (Auto) 1.0, Sodium Level 155H, Potassium Level 3.5, Chloride Level 120H, Carbon Dioxide Level 19L, Anion Gap 16H, Blood Urea Nitrogen 33H, Creatinine 2.2H, Estimat Glomerular Filtration Rate 38.4, Glucose Level 200H, Calcium Level 9.9, Phosphorus Level 2.3L, Magnesium Level 2.4, Total Bilirubin 0.6, Aspartate Amino Transf (AST/SGOT) 81H, Alanine Aminotransferase (ALT/SGPT) 56, Alkaline Phosphatase 97, Total Protein 8.5H, Albumin 2.8L, Globulin 5.7, Albumin/Globulin Ratio 0.5L Height (Feet): 5 Height (Inches): 7.00 Weight (Pounds): 202 Objective PHYSICAL EXAMINATION General Appearance: on vent HEENT: normocephalic, atraumatic Neck: non-tender, normal alignment Respiratory/Chest: ++ VENT/trach Cardiovascular/Chest: normal peripheral pulses, normal rate Abdomen: normal bowel sounds ++ peg Extremities: poorl range of motion Jimmy Fleming MD Nov 26, 2018 17:07
--- NOTE | 2018-11-26 17:44 | NUR ---
NURSE NOTES: fabiola of lab was informed that blood draw from the patients midline was not successful. fabiola will draw blood from patients peripheral for electrophoresis serum.
--- NOTE | 2018-11-26 19:29 | NUR ---
HAND-OFF: Report given to jackie barba.
--- NOTE | 2018-11-26 19:30 | NUR ---
NURSE NOTES: Received pt at bedside by JAMSHID Ojeda. Pt is obtunded, no response to deep pain. charter driver showing ST. Portex 7, AC 16, TV 600, FiO2 40, PEEP 5; sating 100%. GT running Glucerna 1.5 @ 40, WF 200, prosource BID; patent, 20cc residual, will monitor. Colostomy asymptomatic. Condom cath intact, yellow urine noted. KEIRA midline asymptomatic running TKO. Skin is clean and dry, dressings intact, pt turned. LABS unremarkable MD aware per RN. Bed is locked in lowest position, call gallardo within reach, side rails x3, sz precautions continued. Will continue with plan of care and continue to monitor.
[2018-11-26 20:00] VITALS: BP 130/88
[2018-11-26] MEDS: Acetaminophen 650mg/20.3ml GT PRN (21:28)
[2018-11-27] VITALS: BP 121/76
[2018-11-27] MEDS: NovoLOG Insulin Flexpen SUBQ SCH ×6 (00:22→21:32)
[2018-11-27 04:00] VITALS: BP 123/87
[2018-11-27 05:36] LABS: BASOPHILS % (AUTO) 0.4 % (0.0-2.0); HEMOGLOBIN 12.1 G/DL (14.2-18.0); LYMPHOCYTES % (AUTO) 17.3 % (20.0-45.0); MEAN CORPUSCULAR VOLUME 92 FL (80-99); MONOCYTES % (AUTO) 4.7 % (1.0-10.0); NEUTROPHILS % (AUTO) 65.6 % (45.0-75.0); PLATELET COUNT 292 K/UL (150-450); RED BLOOD COUNT 4.13 M/UL (4.70-6.10); RED CELL DISTRIBUTION WIDTH 16.6 % (11.6-14.8); WHITE BLOOD COUNT 16.6 K/UL (4.8-10.8)
[2018-11-27 06:16] LABS: ALANINE AMINOTRANSFERASE 54 U/L (12-78); ALBUMIN 2.8 G/DL (3.4-5.0); ALBUMIN/GLOBULIN RATIO 0.5 (1.0-2.7); ALKALINE PHOSPHATASE 101 U/L (46-116); ANION GAP 16 mmol/L (5-15); ASPARTATE AMINO TRANSFERASE 68 U/L (15-37); BILIRUBIN,TOTAL 0.9 MG/DL (0.2-1.0); BLOOD UREA NITROGEN 34 mg/dL (7-18); CALCIUM 10.2 MG/DL (8.5-10.1); CARBON DIOXIDE 20 MMOL/L (21-32); CHLORIDE 121 MMOL/L (98-107); CREATININE 2.1 MG/DL (0.55-1.30); PHOSPHORUS 2.4 MG/DL (2.5-4.9); POTASSIUM 3.7 MMOL/L (3.5-5.1); SODIUM 157 MMOL/L (136-145)
[2018-11-27] MEDS: Acetaminophen 650mg/20.3ml GT PRN ×2 (06:34→16:39)
[2018-11-27] MEDS: levETIRAcetam 500mg/5ml Liquid GT SCH ×3 (06:35→21:28)
--- NOTE | 2018-11-27 07:16 | NUR ---
HAND-OFF: Report given to JAMSHID Anderson.
--- NOTE | 2018-11-27 07:25 | NUR ---
NURSE NOTES: Report received from JAMSHID Pryor. Observed patient in bed sleeping. Obtunded and non-verbal. On ventilator with previous setting and pt. is tolerated well with ventilator. GT site intact with ongoing feeding. HOB elevated. Condom catheter intact and draining well. Mid-line intact and patent. Bed in lowest position. Call light within reach. Will continue to monitor.
--- NOTE | 2018-11-27 07:31 | NUR ---
RESPIRATORY NOTE: Patient received mechanically ventilated on PB 840 with current ordered vent settings. Patient has trach size 7.0 Portex cuffed that is secured with trach tie and guard. Patient presents with bilateral coarse breath sounds and moderated amount of thick yellow secretions were suctioned without incident. There is an ambu bag available at the bedside and the vent is connected to a red outlet. Vent alarms are functional and audible. Will continue to monitor.
[2018-11-27 08:00] VITALS: BP 109/79
[2018-11-27] MEDS: Vitamin D 1000 IU Tab GT SCH (09:18)
[2018-11-27] MEDS: sitaGLIPtin 50mg tab GT SCH (09:18)
[2018-11-27] MEDS: Heparin 5000 units/ml inj SUBQ SCH ×2 (09:22→21:34)
[2018-11-27] MEDS: Levemir Flexpen SUBQ SCH ×2 (10:08→21:33)
--- NOTE | 2018-11-27 11:02 | NUR ---
RD ASSESSMENT & RECOMMENDATIONS SEE CARE ACTIVITY FOR COMPLETE ASSESSMENT DAILY ESTIMATED NEEDS: Needs based on Critical care, wound /71kg abw 22-30 kcals/kg 8518-8040 total kcals 1.25-2 g protein/kg 88-142 g total protein 25-30 mL/kg [id number] total fluid mLs NUTRITION DIAGNOSIS: * Swallowing difficulty R/T respiratory status, as evidenced by trach/vent dep, PEG dep. * Increased kcal and protein needs r/t wound healing as evidenced by pt with multiple wounds, including partial thickness wound @ L side neck under trach collar, resolving full thickness pressure injury @ sacrum, resolving pressure injury to L trochanter, and reabsorbing serous blister lateral L heel, refer to WC eval. * Altered nutrition related lab values R/T hyperglycemia, h/o DM as evidenced by elev BGs and POC glu (300's and 400's-> 170 167 164 189 improved), elev A1C 7.9 CURRENT TF:Glucerna 1.5 @ 40ml/hr x 24 hrs + PS TID ENTERAL NUTRITION RECOMMENDATIONS: Glucerna 1.5 @ 40ml/hr x 24 hrs + Prosource 1pkt TID to provide 960ml, 1440kcal (+120kcal), 79g (+33g prot), 729ml free water, 127g CHO * Maintain LOWER rate for improved glycemic control :will provide total of 127g CHO per day, 46g less CHO than previous TF * Add Prosource 1pkt TID to meet protein needs (TF + Prosource TID will provide 100% est kcal/prot needs) * HOB over 30 degrees/ Increase water flushes ADDITIONAL RECOMMENDATIONS: * Calibrated bedscale wt for accurate CBW * Monitor lytes, replete as needed (low phos) * Wound healing: Add Mayur 1pkt BID, vit C 500mg QD * Monitor BGs closely, need to adjust insulin/TF * Increase water flushes-> NA 157, trending up . .
--- NOTE | 2018-11-27 11:19 | General Progress Note ---
Assessment/Plan Assessment/Plan Assessment/Recommendations # Leukocytosis. Likely related to underlying infection versus reactive process. --> Peripheral has been reviewed --> Medications have been reviewed --> Imaging has been reviewed -->Blood cultures and urine cultures prn --> has been started on abx, empiric treatment --> wbc trend: 14-->11-->9-->12->13 # Anemia of chronic disease --> w/u has been reviewed from prior hospitalizations # Acute pancreatitis, status post cerebral hemorrhage with severe encephalopathy. # Acute on chronic respiratory failure --> ventilator dependent and fed via gastrostomy tube --> Continue with albuterol sulfate and ipratropium # Diabetes mellitus -->Humalog insulin with sliding scale every six hours # Sepsis # Gastrostomy tube dependent # Colostomy in place # Vegetative state The timing of this note does not necessarily reflect the time of the patient was seen Greatly appreciate consultation! Subjective ROS Limited/Unobtainable: Yes Allergies: Coded Allergies: AZTREONAM (Verified Allergy, Unknown, 05/13/18) Subjective 2/1: Pt is seen in the room,on vent, G tube, leukocytosis has been improving and his fevers have resolved. 2/3: on vent, resting in bed, wbc trending up, no fevers or chills, 2/4: The patient has low-grade fever with tachycardia, CXR reveals small left pleural effusion. 2/5: no events, labs reviewed, h/h appers stable at this time, imaging reviewed 2/6: on vent, resting, wbc trending up, no overnight events reported. Objective Last 24 Hour Vital Signs Date Time Temp Pulse Resp B/P (MAP) Pulse Ox O2 Delivery O2 Flow Rate FiO2 11/27/18 08:45 96 17 40 11/27/18 08:00 98.5 94 17 109/79 (89) 100 11/27/18 08:00 Mechanical Ventilator 11/27/18 08:00 95 11/27/18 08:00 40 11/27/18 07:23 93 16 40 11/27/18 07:04 99.0 11/27/18 05:06 95 15 40 11/27/18 04:00 40 11/27/18 04:00 Mechanical Ventilator 11/27/18 04:00 95 11/27/18 04:00 99.2 95 16 123/87 (99) 100 11/27/18 03:08 103 17 40 11/27/18 01:03 97 16 40 11/27/18 00:00 Mechanical Ventilator 11/27/18 00:00 105 11/27/18 00:00 99.7 97 18 121/76 (91) 100 11/26/18 23:18 100 16 40 11/26/18 21:38 100 16 40 11/26/18 20:00 40 11/26/18 20:00 100.0 103 16 130/88 (102) 100 11/26/18 20:00 106 11/26/18 20:00 Mechanical Ventilator 11/26/18 18:56 105 17 40 11/26/18 17:19 102 16 40 11/26/18 16:00 104 11/26/18 16:00 40 11/26/18 16:00 Mechanical Ventilator 11/26/18 16:00 98.8 104 16 115/81 (92) 100 11/26/18 15:02 105 17 40 11/26/18 13:27 102 17 40 11/26/18 12:00 105 11/26/18 12:00 Mechanical Ventilator 11/26/18 12:00 40 11/26/18 11:50 98.6 100 16 119/84 (96) 100 Intake and Output 11/26/18 11/27/18 19:00 07:00 Intake Total 695 ml 640 ml Output Total 500 ml 600 ml Balance 195 ml 40 ml Free Water 105 ml 120 ml IV Total 110 ml Tube Feeding 480 ml 520 ml Output Urine Total 300 ml 300 ml Stool Total 200 ml 300 ml Laboratory Tests 11/26/18 18:30: Total Protein (PEP) 8.1, Albumin (PEP) 3.3, Globulin (PEP) 4.8H, Albumin/ Globulin Ratio 0.7, Mazrf-6-Pyphzjfga 0.3, Zgird-9-Dvwttozcj 1.4H, Beta Globulins 1.4H, Beta Gamma Globulin 1.7, PEP Abnormal Protein Bands Not observed , Protein Electrophoresis Interpret Comment 11/27/18 03:16: Albumin/Globulin Ratio 0.5L, White Blood Count 16.6H, Red Blood Count 4.13L, Hemoglobin 12.1L, Hematocrit 38.0L, Mean Corpuscular Volume 92, Mean Corpuscular Hemoglobin 29.3, Mean Corpuscular Hemoglobin Concent 31.8L, Red Cell Distribution Width 16.6H, Platelet Count 292, Mean Platelet Volume 9.7, Neutrophils (%) (Auto) 65.6, Lymphocytes (%) (Auto) 17.3L, Monocytes (%) (Auto) 4.7, Eosinophils (%) (Auto) 12.0H, Basophils (%) (Auto) 0.4, Sodium Level 157H, Potassium Level 3.7, Chloride Level 121H, Carbon Dioxide Level 20L, Anion Gap 16H, Blood Urea Nitrogen 34H, Creatinine 2.1H, Estimat Glomerular Filtration Rate 40.6, Glucose Level 201H, Calcium Level 10.2H, Phosphorus Level 2.4L, Magnesium Level 2.5H, Total Bilirubin 0.9, Aspartate Amino Transf (AST/SGOT) 68H , Alanine Aminotransferase (ALT/SGPT) 54, Alkaline Phosphatase 101, Total Protein 8.7H, Albumin 2.8L, Globulin 5.9 Height (Feet): 5 Height (Inches): 7.00 Weight (Pounds): 197 Objective PHYSICAL EXAMINATION General Appearance: on vent HEENT: normocephalic, atraumatic Neck: non-tender, normal alignment Respiratory/Chest: ++ VENT/trach Cardiovascular/Chest: normal peripheral pulses, normal rate Abdomen: normal bowel sounds ++ peg Extremities: poorl range of motion Jimmy Fleming MD Nov 27, 2018 11:19
--- NOTE | 2018-11-27 11:33 | Pulmonolgy Critical Care Note ---
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 (6) Vegetative state (7) Diabetes mellitus Respiratory: monitor respiratory rate, adjust FIO2, CXR Cardiac: continue to monitor HR/BP Renal: F/U I&O, keep IV fluid Infectious Disease: continue antibiotics Gastrointestinal: continue feedings/current rate Endocrine: monitor blood sugar, check TSH Hematologic: monitor H/H, transfuse if hgb<8.5 Neurologic: PRN Morphine, keep patient comfortable Prophylaxis: Protonix, Heparin Notes Reviewed: cardio Discussed with: nurses, consultants, correctional casework specialistclinical trial data manager - Objective Last 24 Hour Vital Signs Date Time Temp Pulse Resp B/P (MAP) Pulse Ox O2 Delivery O2 Flow Rate FiO2 11/27/18 08:45 96 17 40 11/27/18 08:00 98.5 94 17 109/79 (89) 100 11/27/18 08:00 Mechanical Ventilator 11/27/18 08:00 95 11/27/18 08:00 40 11/27/18 07:23 93 16 40 11/27/18 07:04 99.0 11/27/18 05:06 95 15 40 11/27/18 04:00 40 11/27/18 04:00 Mechanical Ventilator 11/27/18 04:00 95 11/27/18 04:00 99.2 95 16 123/87 (99) 100 11/27/18 03:08 103 17 40 11/27/18 01:03 97 16 40 11/27/18 00:00 Mechanical Ventilator 11/27/18 00:00 105 11/27/18 00:00 99.7 97 18 121/76 (91) 100 11/26/18 23:18 100 16 40 11/26/18 21:38 100 16 40 11/26/18 20:00 40 11/26/18 20:00 100.0 103 16 130/88 (102) 100 11/26/18 20:00 106 11/26/18 20:00 Mechanical Ventilator 11/26/18 18:56 105 17 40 11/26/18 17:19 102 16 40 11/26/18 16:00 104 11/26/18 16:00 40 11/26/18 16:00 Mechanical Ventilator 11/26/18 16:00 98.8 104 16 115/81 (92) 100 11/26/18 15:02 105 17 40 11/26/18 13:27 102 17 40 11/26/18 12:00 105 11/26/18 12:00 Mechanical Ventilator 11/26/18 12:00 40 11/26/18 11:50 98.6 100 16 119/84 (96) 100 Status: awake Condition: critical Neck: full ROM Lungs: chest wall tender Heart: HR/BP stable, HR/BP unstable Abdomen: soft, active bowel sounds Extremities: no C/C/E, edema Decubiti: stage Accucheck: 165 Critical Care - Subjective ROS Limited/Unobtainable: Yes Condition: critical EKG Rhythm: Sinus Rhythm FI02: 40 Vent Support Breath Rate: 16 Vent Support Mode: AC Vent Tidal Volume: 600 Sputum Amount: Small PEEP: 5.0 PIP: 29 Tube Feeding Amount: 40 I&O: Intake and Output 11/26/18 11/27/18 19:00 07:00 Intake Total 695 ml 640 ml Output Total 500 ml 600 ml Balance 195 ml 40 ml Free Water 105 ml 120 ml IV Total 110 ml Tube Feeding 480 ml 520 ml Output Urine Total 300 ml 300 ml Stool Total 200 ml 300 ml Labs: Laboratory Tests Test 11/26/18 18:30 11/27/18 03:16 Total Protein (PEP) 8.1 g/dL (6.0-8.5) Albumin (PEP) 3.3 g/dL (2.9-4.4) Globulin (PEP) 4.8 g/dL (2.2-3.9) H Albumin/Globulin Ratio 0.7 (0.7-1.7) 0.5 (1.0-2.7) L Ubiok-3-Nqhmhasow 0.3 g/dL (0.0-0.4) Zblyt-4-Wohcrpimd 1.4 g/dL (0.4-1.0) H Beta Globulins 1.4 g/dL (0.7-1.3) H Beta Gamma Globulin 1.7 g/dL (0.4-1.8) PEP Abnormal Protein Bands Not observed g/dL (Not Protein Electrophoresis Interpret Comment (.) White Blood Count 16.6 K/UL (4.8-10.8) H Red Blood Count 4.13 M/UL (4.70-6.10) L Hemoglobin 12.1 G/DL (14.2-18.0) L Hematocrit 38.0 % (42.0-52.0) L Mean Corpuscular Volume 92 FL (80-99) Mean Corpuscular Hemoglobin 29.3 PG (27.0-31.0) Mean Corpuscular Hemoglobin Concent 31.8 G/DL (32.0-36.0) L Red Cell Distribution Width 16.6 % (11.6-14.8) H Platelet Count 292 K/UL (150-450) Mean Platelet Volume 9.7 FL (6.5-10.1) Neutrophils (%) (Auto) 65.6 % (45.0-75.0) Lymphocytes (%) (Auto) 17.3 % (20.0-45.0) L Monocytes (%) (Auto) 4.7 % (1.0-10.0) Eosinophils (%) (Auto) 12.0 % (0.0-3.0) H Basophils (%) (Auto) 0.4 % (0.0-2.0) Sodium Level 157 MMOL/L (136-145) H Potassium Level 3.7 MMOL/L (3.5-5.1) Chloride Level 121 MMOL/L (98-107) H Carbon Dioxide Level 20 MMOL/L (21-32) L Anion Gap 16 mmol/L (5-15) H Blood Urea Nitrogen 34 mg/dL (7-18) H Creatinine 2.1 MG/DL (0.55-1.30) H Estimat Glomerular Filtration Rate 40.6 mL/min (>60) Glucose Level 201 MG/DL (74-106) H Calcium Level 10.2 MG/DL (8.5-10.1) H Phosphorus Level 2.4 MG/DL (2.5-4.9) L Magnesium Level 2.5 MG/DL (1.8-2.4) H Total Bilirubin 0.9 MG/DL (0.2-1.0) Aspartate Amino Transf (AST/SGOT) 68 U/L (15-37) H Alanine Aminotransferase (ALT/SGPT) 54 U/L (12-78) Alkaline Phosphatase 101 U/L (46-116) Total Protein 8.7 G/DL (6.4-8.2) H Albumin 2.8 G/DL (3.4-5.0) L Globulin 5.9 g/dL Nico Goetz MD Nov 27, 2018 11:33
[2018-11-27 12:00] VITALS: BP 115/82
--- NOTE | 2018-11-27 12:19 | Infectious Diseases Prog Note ---
Assessment/Plan Assessment/Plan 83 yo female with PMHx of DM, HTN and a Cervical spinal tumor s/p resection 11/04 who presneted to the ED on 11/21/18 with SOB, nausea and constipation. UTI complicated UA (+) Indewlling kendrick UCx 11/17/18 P.a. (R Levo, otherwise S) UCx 11/23/18 - Enterobacter and yeast CT abd 11/19/18 3 mm distal right ureteral calculus, minimal resultant hydronephrosis. Atrophic left kidney, containing a large staghorn calculus and multiple intrarenal calyceal calculi, previously described Leukocytosis 15 on admit; improved Aebrile to 102; resolved -11/23 CXR: Hypoventilatory lungs. Left lung base atelectasis. Mild pancreatitis Chronic resp failure - vent/trach dependent ICH COPD DM Seizure disorder BPH Dysphagia, G tube Colostomy Plan - Cefepime #3 for UTI - Tx enterobacter - f/u urine Cx - 11/25/18 SP Zosyn # 7 - 11/22/18 SP Vanocmcyin #4- No evidence for MRSA - Monitor CBC and temps We will continue to follow the patient during this hospitalization. Subjective Allergies: Coded Allergies: AZTREONAM (Verified Allergy, Unknown, 05/13/18) Subjective Afebrile Mild leukocytosis increasing Objective Vital Signs Last 24 Hour Vital Signs Date Time Temp Pulse Resp B/P (MAP) Pulse Ox O2 Delivery O2 Flow Rate FiO2 11/27/18 08:45 96 17 40 11/27/18 08:00 98.5 94 17 109/79 (89) 100 11/27/18 08:00 Mechanical Ventilator 11/27/18 08:00 95 11/27/18 08:00 40 11/27/18 07:23 93 16 40 11/27/18 07:04 99.0 11/27/18 05:06 95 15 40 11/27/18 04:00 40 11/27/18 04:00 Mechanical Ventilator 11/27/18 04:00 95 11/27/18 04:00 99.2 95 16 123/87 (99) 100 11/27/18 03:08 103 17 40 11/27/18 01:03 97 16 40 11/27/18 00:00 Mechanical Ventilator 11/27/18 00:00 105 11/27/18 00:00 99.7 97 18 121/76 (91) 100 11/26/18 23:18 100 16 40 11/26/18 21:38 100 16 40 11/26/18 20:00 40 11/26/18 20:00 100.0 103 16 130/88 (102) 100 11/26/18 20:00 106 11/26/18 20:00 Mechanical Ventilator 11/26/18 18:56 105 17 40 11/26/18 17:19 102 16 40 11/26/18 16:00 104 11/26/18 16:00 40 11/26/18 16:00 Mechanical Ventilator 11/26/18 16:00 98.8 104 16 115/81 (92) 100 11/26/18 15:02 105 17 40 11/26/18 13:27 102 17 40 Height (Feet): 5 Height (Inches): 7.00 Weight (Pounds): 197 Objective Gen: NAD, No responsive , On vent satting well HEENT: NCAT, MMM, trached LUNGS: CTAB, No W CARDS: RRR, S1, S2, No M ABD: Soft, Obese, NT, ND, + BS,PEG and Colostomy (No E/P) Laboratory Tests Test 11/26/18 18:30 11/27/18 03:16 Total Protein (PEP) 8.1 g/dL (6.0-8.5) Albumin (PEP) 3.3 g/dL (2.9-4.4) Globulin (PEP) 4.8 g/dL (2.2-3.9) H Albumin/Globulin Ratio 0.7 (0.7-1.7) 0.5 (1.0-2.7) L Iaxgu-8-Duuqtmqea 0.3 g/dL (0.0-0.4) Mevjv-3-Urwxojavt 1.4 g/dL (0.4-1.0) H Beta Globulins 1.4 g/dL (0.7-1.3) H Beta Gamma Globulin 1.7 g/dL (0.4-1.8) PEP Abnormal Protein Bands Not observed g/dL (Not Protein Electrophoresis Interpret Comment (.) White Blood Count 16.6 K/UL (4.8-10.8) H Red Blood Count 4.13 M/UL (4.70-6.10) L Hemoglobin 12.1 G/DL (14.2-18.0) L Hematocrit 38.0 % (42.0-52.0) L Mean Corpuscular Volume 92 FL (80-99) Mean Corpuscular Hemoglobin 29.3 PG (27.0-31.0) Mean Corpuscular Hemoglobin Concent 31.8 G/DL (32.0-36.0) L Red Cell Distribution Width 16.6 % (11.6-14.8) H Platelet Count 292 K/UL (150-450) Mean Platelet Volume 9.7 FL (6.5-10.1) Neutrophils (%) (Auto) 65.6 % (45.0-75.0) Lymphocytes (%) (Auto) 17.3 % (20.0-45.0) L Monocytes (%) (Auto) 4.7 % (1.0-10.0) Eosinophils (%) (Auto) 12.0 % (0.0-3.0) H Basophils (%) (Auto) 0.4 % (0.0-2.0) Sodium Level 157 MMOL/L (136-145) H Potassium Level 3.7 MMOL/L (3.5-5.1) Chloride Level 121 MMOL/L (98-107) H Carbon Dioxide Level 20 MMOL/L (21-32) L Anion Gap 16 mmol/L (5-15) H Blood Urea Nitrogen 34 mg/dL (7-18) H Creatinine 2.1 MG/DL (0.55-1.30) H Estimat Glomerular Filtration Rate 40.6 mL/min (>60) Glucose Level 201 MG/DL (74-106) H Calcium Level 10.2 MG/DL (8.5-10.1) H Phosphorus Level 2.4 MG/DL (2.5-4.9) L Magnesium Level 2.5 MG/DL (1.8-2.4) H Total Bilirubin 0.9 MG/DL (0.2-1.0) Aspartate Amino Transf (AST/SGOT) 68 U/L (15-37) H Alanine Aminotransferase (ALT/SGPT) 54 U/L (12-78) Alkaline Phosphatase 101 U/L (46-116) Total Protein 8.7 G/DL (6.4-8.2) H Albumin 2.8 G/DL (3.4-5.0) L Globulin 5.9 g/dL Current Medications Medications (Trade) Dose Ordered Sig/Va Route PRN Reason Start Time Stop Time Status Last Admin Dose Admin Acetaminophen (Tylenol) 650 mg Q4H PRN GT Mild Pain/Temp > 100.5 11/18/18 08:15 12/18/18 08:14 11/27/18 06:34 Artificial Tears (Akwa-Tears) 1 drop Q4H PRN BOTH EYES Dry Eyes 11/18/18 07:45 12/18/18 07:44 11/26/18 08:59 Baclofen (Lioresal) 10 mg EVERY 8 HOURS GT 11/18/18 14:00 12/18/18 13:59 11/27/18 06:34 Cefepime HCl 2 gm/ Dextrose 55 ml @ 110 mls/hr Q24H IVPB 11/25/18 13:00 12/02/18 12:59 11/26/18 13:15 Dextrose (Dextrose 50%) 25 ml Q30M PRN IV Hypoglycemia 11/18/18 07:45 12/18/18 07:44 Dextrose (Dextrose 50%) 50 ml Q30M PRN IV Hypoglycemia 11/18/18 07:45 12/18/18 07:44 Heparin Sodium (Porcine) (Heparin 5000 units/ml) 5,000 units EVERY 12 HOURS SUBQ 11/18/18 09:00 12/18/18 08:59 11/27/18 09:22 Insulin Aspart (NovoLOG) EVERY 4 HOURS SUBQ 11/20/18 13:00 12/18/18 11:59 11/27/18 09:21 Insulin Detemir (Levemir) 15 units Q12HR SUBQ 11/19/18 00:00 12/19/18 00:00 11/27/18 10:08 Lansoprazole (Prevacid) 30 mg DAILY GT 11/21/18 09:00 12/21/18 08:59 11/27/18 09:18 Levetiracetam (Keppra) 1,000 mg EVERY 8 HOURS GT 11/18/18 14:00 12/18/18 13:59 11/27/18 06:35 Nystatin (Nystatin Cr) 1 applic EVERY 12 HOURS TOPIC 11/18/18 09:00 12/18/18 08:59 11/27/18 09:18 Polyethylene Glycol (Miralax) 17 gm DAILYPRN PRN GT Constipation 11/18/18 07:45 12/18/18 07:44 Silver Sulfadiazine (Silvadene Cream 25gm) 1 applic BEDTIME TOPIC 11/23/18 21:00 12/18/18 08:59 11/26/18 21:31 Sitagliptin Phosphate (Januvia) 50 mg DAILY GT 11/18/18 09:00 12/18/18 08:59 11/27/18 09:18 Vitamin D (Vitamin D) 1,000 intlu DAILY GT 11/18/18 09:00 12/18/18 08:59 11/27/18 09:18 Kali Richter MD Nov 27, 2018 12:19
--- NOTE | 2018-11-27 12:45 | Progress Note ---
DATE: 11/26/2018 SUBJECTIVE: The patient and tachycardia. PHYSICAL EXAMINATION: VITAL SIGNS: Blood pressure 130/88, pulse 100, respirations 16, and temperature of 100.0. HEENT: Eyes were normal. ENT, mucous membranes are moist and intact. NECK: Supple with no JVD without lymph nodes. Tracheostomy site is clean. LUNGS: Clear without rhonchi, rales, or wheezing in the upper lobe. EXTREMITIES: Warm without cyanosis, clubbing, or edema. LABORATORY AND DIAGNOSTIC DATA: Hemoglobin 12.9, hematocrit 38.3 with MCV of 92, WBC of 14.4, and platelets are 292,000. Repeat hemoglobin is , hematocrit with MCV of 92, WBC of 14.4, and platelets are 292,000. His WBC was 17.1 yesterday and 12.7 on November 23. BUN and creatinine is 33 and 2.2 respectively. His sodium is 155, potassium is 3.5, chloride 120, CO2 is 19. His calcium is 9.9, phosphorus is 2.3, and magnesium is 2.4. on board-spectrum antibiotics. Repeat laboratory tests will be done in the a.m. Sariah Bhat M.D. DR: KRYSTAL JOB#: [id number] CC:
[2018-11-27] MEDS: Cefepime HCl 2 GM in D5W 55 ML IVPB SCH (13:34)
[2018-11-27 16:00] VITALS: BP 120/88
--- NOTE | 2018-11-27 19:40 | NUR ---
NURSE NOTES: Received Pt is resting on the bed and obtunded. Trach to Vent dependent setting with Ac: 16, T; 600, P:5, and FiO2 40% and SaO2 100%. BT : 99.5F noted. Given tracheal and oral suction. Provided oral care. Applied cooling measure. On G-tube feeding with Glucerna 1.5 @ 40cc/hr. No residual noted. Maile cath out and applied new condom cath. Dressing is clean and dry on wound area. Changed position. Rt. upper arm mid line area dressing is intact and patent. Placed fall and seizure precaution. Will continue to care plan.
--- NOTE | 2018-11-27 19:42 | NUR ---
HAND-OFF: Report given to JAMSHID Cabezas. Stable condition.
[2018-11-27 20:00] VITALS: BP 120/74
[2018-11-27] MEDS: Dyna-Hex 2% Top Sol 2oz TOPIC SCH (22:49)
--- NOTE | 2018-11-27 23:55 | NUR ---
NURSE NOTES: Dr. Bhat visited and assessed Pt and new order received. Will continue to monitor any change of condition.
[2018-11-28] VITALS: BP 121/80
[2018-11-28] MEDS: NovoLOG Insulin Flexpen SUBQ SCH ×6 (01:02→21:17)
[2018-11-28 04:00] VITALS: BP 119/76
--- NOTE | 2018-11-28 05:30 | Progress Note ---
DATE: 11/27/2018 SUBJECTIVE: The patient remained febrile and tachycardic, but hemodynamically stable. PHYSICAL EXAMINATION: VITAL SIGNS: Blood pressure 120/74, pulse 104, respirations 19, and temperature 99.5. HEENT: Eyes were normal. ENT, mucous membranes are moist and intact. NECK: Supple with no JVD without lymph nodes. Tracheostomy site is clean. LUNGS: Clear. HEART: Normal sounds with regular heart beats. There are no S3, S4, or pericardial rub. ABDOMEN: Soft and nontender with normal bowel sounds. Gastrostomy site is clean. EXTREMITIES: Warm without cyanosis, clubbing, or edema. LABORATORY DATA: Hemoglobin is 12.1, hematocrit 38.0, with MCV of 92, WBC of 16.6, compared to day before yesterday at 17.1 on the 3rd and 12.2 on the 2nd. WBC of 16.6 and platelets 292. His BUN and creatinine are 34 and 2.1 respectively, sodium is 157, potassium 3.7, chloride , CO2 is 20, calcium is 10.2, , magnesium is 2.5. SGOT is 68. Albumin is 2.8. IMPRESSION AND PLAN: The patient has progressively increasing . Repeat laboratory tests will be done in the a.m. Sariah Bhat M.D. DR: PATTIE JOB#: [id number] CC:
[2018-11-28] MEDS: levETIRAcetam 500mg/5ml Liquid GT SCH ×3 (05:49→21:57)
[2018-11-28 05:52] LABS: HEMATOCRIT 38.2 % (42.0-52.0); HEMOGLOBIN 12.4 G/DL (14.2-18.0); MEAN CORPUSCULAR VOLUME 93 FL (80-99); PLATELET COUNT 282 K/UL (150-450); RED BLOOD COUNT 4.13 M/UL (4.70-6.10); RED CELL DISTRIBUTION WIDTH 16.9 % (11.6-14.8); WHITE BLOOD COUNT 19.7 K/UL (4.8-10.8)
[2018-11-28 06:13] LABS: ANION GAP 16 mmol/L (5-15); BLOOD UREA NITROGEN 34 mg/dL (7-18); CALCIUM 9.8 MG/DL (8.5-10.1); CARBON DIOXIDE 18 MMOL/L (21-32); CHLORIDE 119 MMOL/L (98-107); CREATININE 2.1 MG/DL (0.55-1.30); POTASSIUM 3.9 MMOL/L (3.5-5.1); SODIUM 153 MMOL/L (136-145)
--- NOTE | 2018-11-28 07:18 | NUR ---
HAND-OFF: Report given to JAMSHID Hopkins. Pt is sleeping on the bed and tolerated well with current Vent setting. No sign of acute distress noted.
--- NOTE | 2018-11-28 07:31 | NUR ---
NURSE NOTES: Report received from JAMSHID Cabezas. Observed patient in bed sleeping. Obtunded and non-verbal. On ventilator with previous setting and tolerated well with no distress noted. GT site intact with ongoing feeding. HOB elevated. No residual noted. Condom cath intact and draining well. Mid-line intact and patent. Bed in lowest position. Call light within reach. Will continue to monitor.
[2018-11-28 08:00] VITALS: BP 129/78
[2018-11-28] MEDS: sitaGLIPtin 50mg tab GT SCH (08:31)
[2018-11-28] MEDS: Vitamin D 1000 IU Tab GT SCH (08:31)
[2018-11-28] MEDS: Levemir Flexpen SUBQ SCH ×2 (08:33→21:17)
[2018-11-28] MEDS: Heparin 5000 units/ml inj SUBQ SCH ×2 (08:33→21:18)
--- NOTE | 2018-11-28 08:55 | Infectious Diseases Prog Note ---
Assessment/Plan Assessment/Plan Mr. Ramos is a 53 yo male with PMHx of chronic resp failure - vent/trach dependent, ICH, COPD, Dm2, seizure disoder, BPH, DM2, dysphagia, G tube, colostomy who was admitted to the hospital on 11/17/18 with fever, hypotension and tachycardia. He was found to have P.a. UTI. He has been on zosyn. His inital leukocytosis has been improving and his fevers have resoved. UTI complicated UA (+) Indewlling kendrick UCx 11/17/18 P.a. (R Levo, otherwise S) UCx 11/23/18 - Enterobacter and yeast and Pa CT abd 11/19/18 3 mm distal right ureteral calculus, minimal resultant hydronephrosis. Atrophic left kidney, containing a large staghorn calculus and multiple intrarenal calyceal calculi, previously described Leukocytosis 15 on admit; improved Aebrile to 102; resolved -11/23 CXR: Hypoventilatory lungs. Left lung base atelectasis. Mild pancreatitis Chronic resp failure - vent/trach dependent ICH COPD DM Seizure disorder BPH Dysphagia, G tube Colostomy Plan - Start Merpenem and flucoazole Repeat blood Cx - 11/28/18 SP Ccfepeim #4 - 11/25/18 SP Zosyn # 7 - 11/22/18 SP Vanocmcyin #4- No evidence for MRSA - Monitor CBC and temps We will continue to follow the patient during this hospitalization. Subjective Allergies: Coded Allergies: AZTREONAM (Verified Allergy, Unknown, 05/13/18) Subjective Afebrile Leukocytosis increasing Objective Vital Signs Last 24 Hour Vital Signs Date Time Temp Pulse Resp B/P (MAP) Pulse Ox O2 Delivery O2 Flow Rate FiO2 11/28/18 08:00 Mechanical Ventilator 11/28/18 08:00 40 11/28/18 06:55 101 16 40 11/28/18 05:27 101 16 40 11/28/18 04:00 99.0 104 19 119/76 (90) 100 11/28/18 04:00 Mechanical Ventilator 11/28/18 04:00 40 11/28/18 04:00 108 11/28/18 03:12 109 16 40 11/28/18 01:30 112 16 40 11/28/18 00:00 Mechanical Ventilator 11/28/18 00:00 40 11/28/18 00:00 98.8 111 19 121/80 (94) 100 11/28/18 00:00 111 11/27/18 23:15 111 16 40 11/27/18 23:15 111 16 Mechanical Ventilator 11/27/18 22:02 103 16 40 11/27/18 20:00 40 11/27/18 20:00 Mechanical Ventilator 11/27/18 20:00 104 11/27/18 20:00 99.5 106 19 120/74 (89) 100 11/27/18 19:26 101 16 40 11/27/18 17:09 99.1 11/27/18 16:31 104 18 40 11/27/18 16:00 Mechanical Ventilator 11/27/18 16:00 106 11/27/18 16:00 40 11/27/18 16:00 100.8 113 19 120/88 (99) 100 11/27/18 14:46 102 17 40 11/27/18 13:07 101 17 40 11/27/18 12:00 99.5 100 17 115/82 (93) 100 11/27/18 12:00 40 11/27/18 12:00 Mechanical Ventilator 11/27/18 12:00 103 11/27/18 10:59 99 16 40 Height (Feet): 5 Height (Inches): 7.00 Weight (Pounds): 197 Objective Gen: NAD, No responsive , On vent satting well HEENT: NCAT, MMM, trached ABD: Soft, Obese, NT, ND, + BS,PEG and Colostomy (No E/P) Skin: Sacral ulcers - Not infected stage 2 Laboratory Tests Test 11/28/18 03:40 White Blood Count 19.7 K/UL (4.8-10.8) H Red Blood Count 4.13 M/UL (4.70-6.10) L Hemoglobin 12.4 G/DL (14.2-18.0) L Hematocrit 38.2 % (42.0-52.0) L Mean Corpuscular Volume 93 FL (80-99) Mean Corpuscular Hemoglobin 30.1 PG (27.0-31.0) Mean Corpuscular Hemoglobin Concent 32.5 G/DL (32.0-36.0) Red Cell Distribution Width 16.9 % (11.6-14.8) H Platelet Count 282 K/UL (150-450) Mean Platelet Volume 9.5 FL (6.5-10.1) Neutrophils (%) (Auto) % (45.0-75.0) Lymphocytes (%) (Auto) % (20.0-45.0) Monocytes (%) (Auto) % (1.0-10.0) Eosinophils (%) (Auto) % (0.0-3.0) Basophils (%) (Auto) % (0.0-2.0) Neutrophils % (Manual) Pending Lymphocytes % (Manual) Pending Platelet Estimate Pending Platelet Morphology Pending Sodium Level 153 MMOL/L (136-145) H Potassium Level 3.9 MMOL/L (3.5-5.1) Chloride Level 119 MMOL/L (98-107) H Carbon Dioxide Level 18 MMOL/L (21-32) L Anion Gap 16 mmol/L (5-15) H Blood Urea Nitrogen 34 mg/dL (7-18) H Creatinine 2.1 MG/DL (0.55-1.30) H Estimat Glomerular Filtration Rate 40.6 mL/min (>60) Glucose Level 226 MG/DL (74-106) H Hemoglobin A1c 7.8 % (4.3-6.0) H Calcium Level 9.8 MG/DL (8.5-10.1) Current Medications Medications (Trade) Dose Ordered Sig/Va Route PRN Reason Start Time Stop Time Status Last Admin Dose Admin Acetaminophen (Tylenol) 650 mg Q4H PRN GT Mild Pain/Temp > 100.5 11/18/18 08:15 12/18/18 08:14 11/27/18 16:39 Artificial Tears (Akwa-Tears) 1 drop Q4H PRN BOTH EYES Dry Eyes 11/18/18 07:45 12/18/18 07:44 11/26/18 08:59 Baclofen (Lioresal) 10 mg EVERY 8 HOURS GT 11/18/18 14:00 12/18/18 13:59 11/28/18 05:46 Cefepime HCl 2 gm/ Dextrose 55 ml @ 110 mls/hr Q24H IVPB 11/25/18 13:00 12/02/18 12:59 11/27/18 13:34 Chlorhexidine Gluconate (Rebecca-Hex 2%) 1 applic DAILY@2000 TOPIC 11/27/18 22:45 12/28/18 19:59 11/27/18 22:49 Dextrose 1,000 ml @ 100 mls/hr Q10H IV 11/28/18 00:00 12/28/18 00:00 11/28/18 00:01 Dextrose (Dextrose 50%) 25 ml Q30M PRN IV Hypoglycemia 11/18/18 07:45 12/18/18 07:44 Dextrose (Dextrose 50%) 50 ml Q30M PRN IV Hypoglycemia 11/18/18 07:45 12/18/18 07:44 Heparin Sodium (Porcine) (Heparin 5000 units/ml) 5,000 units EVERY 12 HOURS SUBQ 11/18/18 09:00 12/18/18 08:59 11/28/18 08:33 Insulin Aspart (NovoLOG) EVERY 4 HOURS SUBQ 11/20/18 13:00 12/18/18 11:59 11/28/18 08:33 Insulin Detemir (Levemir) 15 units Q12HR SUBQ 11/19/18 00:00 12/19/18 00:00 11/28/18 08:33 Lansoprazole (Prevacid) 30 mg DAILY GT 11/21/18 09:00 12/21/18 08:59 11/28/18 08:31 Levetiracetam (Keppra) 1,000 mg EVERY 8 HOURS GT 11/18/18 14:00 12/18/18 13:59 11/28/18 05:49 Nystatin (Nystatin Cr) 1 applic EVERY 12 HOURS TOPIC 11/18/18 09:00 12/18/18 08:59 11/28/18 08:31 Polyethylene Glycol (Miralax) 17 gm DAILYPRN PRN GT Constipation 11/18/18 07:45 12/18/18 07:44 Silver Sulfadiazine (Silvadene Cream 25gm) 1 applic BEDTIME TOPIC 11/23/18 21:00 12/18/18 08:59 11/27/18 21:31 Sitagliptin Phosphate (Januvia) 50 mg DAILY GT 11/18/18 09:00 12/18/18 08:59 11/28/18 08:31 Vitamin D (Vitamin D) 1,000 intlu DAILY GT 11/18/18 09:00 12/18/18 08:59 11/28/18 08:31 Kali Richter MD Nov 28, 2018 08:55
[2018-11-28] MEDS: Meropenem 1 GM in NS 55 ML IVPB SCH ×2 (09:55→21:18)
--- NOTE | 2018-11-28 10:19 | Pulmonolgy Critical Care Note ---
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 (6) Vegetative state (7) Diabetes mellitus Respiratory: monitor respiratory rate, adjust FIO2, CXR Cardiac: continue to monitor HR/BP Renal: F/U I&O, keep IV fluid Infectious Disease: check cultures, continue antibiotics Gastrointestinal: continue feedings/current rate Endocrine: check TSH Hematologic: monitor H/H, transfuse if hgb<8.5 Neurologic: PRN Ativan, keep patient comfortable Prophylaxis: Heparin Disposition: keep in ICU Time Spent (Minutes): 40 Notes Reviewed: cardio Discussed with: nurses, consultants, manager of case managementgym manager - Objective Last 24 Hour Vital Signs Date Time Temp Pulse Resp B/P (MAP) Pulse Ox O2 Delivery O2 Flow Rate FiO2 11/28/18 08:00 97.8 100 16 129/78 (95) 100 11/28/18 08:00 Mechanical Ventilator 11/28/18 08:00 40 11/28/18 08:00 99 11/28/18 06:55 101 16 40 11/28/18 05:27 101 16 40 11/28/18 04:00 99.0 104 19 119/76 (90) 100 11/28/18 04:00 Mechanical Ventilator 11/28/18 04:00 40 11/28/18 04:00 108 11/28/18 03:12 109 16 40 11/28/18 01:30 112 16 40 11/28/18 00:00 Mechanical Ventilator 11/28/18 00:00 40 11/28/18 00:00 98.8 111 19 121/80 (94) 100 11/28/18 00:00 111 11/27/18 23:15 111 16 40 11/27/18 23:15 111 16 Mechanical Ventilator 11/27/18 22:02 103 16 40 11/27/18 20:00 40 11/27/18 20:00 Mechanical Ventilator 11/27/18 20:00 104 11/27/18 20:00 99.5 106 19 120/74 (89) 100 11/27/18 19:26 101 16 40 11/27/18 17:09 99.1 11/27/18 16:31 104 18 40 11/27/18 16:00 Mechanical Ventilator 11/27/18 16:00 106 11/27/18 16:00 40 11/27/18 16:00 100.8 113 19 120/88 (99) 100 11/27/18 14:46 102 17 40 11/27/18 13:07 101 17 40 11/27/18 12:00 99.5 100 17 115/82 (93) 100 11/27/18 12:00 40 11/27/18 12:00 Mechanical Ventilator 11/27/18 12:00 103 11/27/18 10:59 99 16 40 Status: obtunded Condition: critical HEENT: atraumatic Lungs: rhonchi Heart: HR/BP stable Abdomen: soft, non-tender, feeding tube Extremities: edema Decubiti: location Accucheck: 213 Critical Care - Subjective ROS Limited/Unobtainable: No Condition: critical EKG Rhythm: Sinus Rhythm FI02: 40 Vent Support Breath Rate: 16 Vent Support Mode: AC Vent Tidal Volume: 600 Sputum Amount: Small PEEP: 5.0 PIP: 29 Tube Feeding Amount: 40 I&O: Intake and Output 11/27/18 11/28/18 19:00 07:00 Intake Total 795 ml 1380 ml Output Total 650 ml 700 ml Balance 145 ml 680 ml Free Water 260 ml 200 ml IV Total 55 ml 700 ml Tube Feeding 480 ml 480 ml Output Urine Total 350 ml 400 ml Stool Total 300 ml 300 ml CXR: no change Labs: Laboratory Tests Test 11/28/18 03:40 White Blood Count 19.7 K/UL (4.8-10.8) H Red Blood Count 4.13 M/UL (4.70-6.10) L Hemoglobin 12.4 G/DL (14.2-18.0) L Hematocrit 38.2 % (42.0-52.0) L Mean Corpuscular Volume 93 FL (80-99) Mean Corpuscular Hemoglobin 30.1 PG (27.0-31.0) Mean Corpuscular Hemoglobin Concent 32.5 G/DL (32.0-36.0) Red Cell Distribution Width 16.9 % (11.6-14.8) H Platelet Count 282 K/UL (150-450) Mean Platelet Volume 9.5 FL (6.5-10.1) Neutrophils (%) (Auto) % (45.0-75.0) Lymphocytes (%) (Auto) % (20.0-45.0) Monocytes (%) (Auto) % (1.0-10.0) Eosinophils (%) (Auto) % (0.0-3.0) Basophils (%) (Auto) % (0.0-2.0) Differential Total Cells Counted 100 Neutrophils % (Manual) 70 % (45-75) Lymphocytes % (Manual) 13 % (20-45) L Monocytes % (Manual) 3 % (1-10) Eosinophils % (Manual) 9 % (0-3) H Myelocytes % 3 % (0-0) H Band Neutrophils 2 % (0-8) Nucleated Red Blood Cells 1 /100 WBC Platelet Estimate Pending Platelet Morphology Normal Anisocytosis 1+ Sodium Level 153 MMOL/L (136-145) H Potassium Level 3.9 MMOL/L (3.5-5.1) Chloride Level 119 MMOL/L (98-107) H Carbon Dioxide Level 18 MMOL/L (21-32) L Anion Gap 16 mmol/L (5-15) H Blood Urea Nitrogen 34 mg/dL (7-18) H Creatinine 2.1 MG/DL (0.55-1.30) H Estimat Glomerular Filtration Rate 40.6 mL/min (>60) Glucose Level 226 MG/DL (74-106) H Hemoglobin A1c 7.8 % (4.3-6.0) H Calcium Level 9.8 MG/DL (8.5-10.1) Nico Goetz MD Nov 28, 2018 10:19
[2018-11-28 12:00] VITALS: BP 119/78
--- NOTE | 2018-11-28 13:22 | Diagnostic Imaging Report ---
Indication: Dyspnea Comparison: 11/23/2018 A single view chest radiograph was obtained. Findings: There is blunting of the left costophrenic angle which is probably due to pleural scarring or thickening. This was seen previously. Heart is mildly enlarged. Tracheostomy noted. IMPRESSION: No acute findings
[2018-11-28 16:00] VITALS: BP 102/77
--- NOTE | 2018-11-28 16:50 | General Progress Note ---
Assessment/Plan Assessment/Plan Assessment/Recommendations # Leukocytosis. Likely related to underlying infection versus reactive process. --> Peripheral has been reviewed --> Medications have been reviewed --> Imaging has been reviewed -->Blood cultures and urine cultures prn --> has been started on abx, empiric treatment --> wbc trend: 14-->11-->9-->12->13 # Anemia of chronic disease --> w/u has been reviewed from prior hospitalizations # Acute pancreatitis, status post cerebral hemorrhage with severe encephalopathy. # Acute on chronic respiratory failure --> ventilator dependent and fed via gastrostomy tube --> Continue with albuterol sulfate and ipratropium # Diabetes mellitus -->Humalog insulin with sliding scale every six hours # Sepsis # Gastrostomy tube dependent # Colostomy in place # Vegetative state The timing of this note does not necessarily reflect the time of the patient was seen Greatly appreciate consultation! Subjective Constitutional: Denies: no symptoms, chills, diaphoresis, fever, malaise, weakness, other HEENT: Denies: no symptoms, eye pain, blurred vision, tearing, double vision, ear pain, ear discharge, nose pain, nose congestion, throat pain, throat swelling, mouth pain, mouth swelling, other Cardiovascular: Denies: no symptoms, chest pain, edema, irregular heart rate, lightheadedness, palpitations, syncope, other Respiratory: Denies: no symptoms, cough, orthopnea, shortness of breath, SOB with excertion, SOB at rest, sputum, stridor, wheezing, other Gastrointestinal/Abdominal: Denies: no symptoms, abdomen distended, abdominal pain, black stools, tarry stools, blood in stool, constipated, diarrhea, difficulty swallowing, nausea, poor appetite, poor fluid intake, rectal bleeding , vomiting, other Genitourinary: Denies: no symptoms, burning, discharge, frequency, flank pain, hematuria, incontinence, pain, urgency, other Neurologic/Psychiatric: Denies: no symptoms, anxiety, depressed, emotional problems, headache, numbness, paresthesia, pre-existing deficit, seizure, tingling, tremors, weakness, other Endocrine: Denies: no symptoms, excessive sweating, flushing, intolerance to cold, intolerance to heat, increased hunger, increased thirst, increased urine, unexplained weight gain, unexplained weight loss, other Hematologic/Lymphatic: Denies: no symptoms, anemia, easy bleeding, easy bruising, other Allergies: Coded Allergies: AZTREONAM (Verified Allergy, Unknown, 05/13/18) Subjective 2/: Pt is seen in the room,on vent, G tube, leukocytosis has been improving and his fevers have resolved. 23: on vent, resting in bed, wbc trending up, no fevers or chills, 2: The patient has low-grade fever with tachycardia, CXR reveals small left pleural effusion. 2: no events, labs reviewed, h/h appers stable at this time, imaging reviewed 11/27: on vent, resting, wbc trending up, no overnight events reported. 11/28: wbc trending up, 19 today, The patient remained febrile and tachycardic, but hemodynamically stable. Objective Last 24 Hour Vital Signs Date Time Temp Pulse Resp B/P (MAP) Pulse Ox O2 Delivery O2 Flow Rate FiO2 11/28/18 16:00 Mechanical Ventilator 11/28/18 16:00 40 11/28/18 15:20 101 16 40 11/28/18 12:50 100 16 40 11/28/18 12:00 Mechanical Ventilator 11/28/18 12:00 40 11/28/18 12:00 99.7 102 16 119/78 (92) 100 11/28/18 11:54 97 11/28/18 10:55 99 16 40 11/28/18 08:56 101 16 40 11/28/18 08:00 97.8 100 16 129/78 (95) 100 11/28/18 08:00 Mechanical Ventilator 11/28/18 08:00 40 11/28/18 08:00 99 11/28/18 06:55 101 16 40 11/28/18 05:27 101 16 40 11/28/18 04:00 99.0 104 19 119/76 (90) 100 11/28/18 04:00 Mechanical Ventilator 11/28/18 04:00 40 11/28/18 04:00 108 11/28/18 03:12 109 16 40 11/28/18 01:30 112 16 40 11/28/18 00:00 Mechanical Ventilator 11/28/18 00:00 40 11/28/18 00:00 98.8 111 19 121/80 (94) 100 11/28/18 00:00 111 11/27/18 23:15 111 16 40 11/27/18 23:15 111 16 Mechanical Ventilator 11/27/18 22:02 103 16 40 11/27/18 20:00 40 11/27/18 20:00 Mechanical Ventilator 11/27/18 20:00 104 11/27/18 20:00 99.5 106 19 120/74 (89) 100 11/27/18 19:26 101 16 40 11/27/18 17:09 99.1 Intake and Output 11/27/18 11/28/18 19:00 07:00 Intake Total 795 ml 1380 ml Output Total 650 ml 700 ml Balance 145 ml 680 ml Free Water 260 ml 200 ml IV Total 55 ml 700 ml Tube Feeding 480 ml 480 ml Output Urine Total 350 ml 400 ml Stool Total 300 ml 300 ml Laboratory Tests 11/28/18 03:40: White Blood Count 19.7H, Red Blood Count 4.13L, Hemoglobin 12.4L, Hematocrit 38.2L, Mean Corpuscular Volume 93, Mean Corpuscular Hemoglobin 30.1, Mean Corpuscular Hemoglobin Concent 32.5, Red Cell Distribution Width 16.9H, Platelet Count 282, Mean Platelet Volume 9.5, Neutrophils (%) (Auto) , Lymphocytes (%) (Auto) , Monocytes (%) (Auto) , Eosinophils (%) (Auto) , Basophils (%) (Auto) , Differential Total Cells Counted 100, Neutrophils % ( Manual) 70, Lymphocytes % (Manual) 13L, Monocytes % (Manual) 3, Eosinophils % ( Manual) 9H, Basophils % (Manual) 0, Myelocytes % 3H, Band Neutrophils 2, Nucleated Red Blood Cells 1, Platelet Estimate Adequate, Platelet Morphology Normal, Anisocytosis 1+, Sodium Level 153H, Potassium Level 3.9, Chloride Level 119H, Carbon Dioxide Level 18L, Anion Gap 16H, Blood Urea Nitrogen 34H, Creatinine 2.1H, Estimat Glomerular Filtration Rate 40.6, Glucose Level 226H, Hemoglobin A1c 7.8H, Calcium Level 9.8 Height (Feet): 5 Height (Inches): 7.00 Weight (Pounds): 197 Objective PHYSICAL EXAMINATION General Appearance: on vent HEENT: normocephalic, atraumatic Neck: non-tender, normal alignment Respiratory/Chest: ++ VENT/trach Cardiovascular/Chest: normal peripheral pulses, normal rate Abdomen: normal bowel sounds ++ peg Extremities: poorl range of motion Jimmy Fleming MD Nov 28, 2018 16:50
--- NOTE | 2018-11-28 19:19 | NUR ---
NURSE NOTES: Received report from Gary Anderson RN. Patient is asleep in bed, obtunded. No s/s of acute distress noted at this time. Sinus rhythm on rn cardiac rehab. Trach-vent settings: Portex 7, AC 16, Vt 600, FiO2 40%, PEEP 5 and saturating well. Receiving Glucerna 1.5 @ 40 cc/hr via GT and tolerating well. Right colostomy bag noted and intact. Condom catheter in place and draining well to gravity. Right upper arm double lumen midline intact and patent running D5W @ 100 cc/hr. Bed locked in lowest position with padded sided rails up x 3. Call light left within reach. Will continue to monitor.
--- NOTE | 2018-11-28 19:19 | NUR ---
HAND-OFF: Report given to JAMSHID Morales. Stable condition.
[2018-11-28] MEDS: Dyna-Hex 2% Top Sol 2oz TOPIC SCH (19:59)
[2018-11-28 20:00] VITALS: BP 104/77
[2018-11-28] MEDS ORDERED: Dyna-Hex 2% Top Sol 2oz TOPIC SCH (20:00)
--- NOTE | 2018-11-28 22:00 | NUR ---
NURSE NOTES:received pt obtunded trache to vent on ac mode SR on the monitor, bp stable afebrile. Pt tolerating glucerna 1.5 1t 40 ml/hr, no residuals. HOB kept elevated on aspiration precautions. Suctioned tk beige secretions lg in amt. oral care done. Condom cath accidentally out. Replaced condom and now draining moderate amt of hermelindo yellow urine. Pt also has multiple pressure sores with drsg sry and intact (pls see pictures)- Turned q 2hrs prn with good skin care done. Pt on p200 mattress. Will continue to monitor.
--- NOTE | 2018-11-28 22:00 | NUR ---
HAND-OFF: Report given to JAMSHID Arzate.
[2018-11-29] VITALS: BP 112/81
--- NOTE | 2018-11-29 | NUR ---
NURSE NOTES:Complete bath with bed changed done.
--- NOTE | 2018-11-29 01:00 | NUR ---
NURSE NOTES:Accucheck 214mg/dl, with coverage. Pls seeEmar.
[2018-11-29] MEDS: NovoLOG Insulin Flexpen SUBQ SCH ×6 (01:17→20:51)
--- NOTE | 2018-11-29 02:30 | NUR ---
NURSE NOTES: Received patient back from JAMSHID Arzate. Patient remains asleep at this time. No s/s of acute distress noted. Will continue to monitor.
--- NOTE | 2018-11-29 02:30 | NUR ---
HAND-OFF: Report given to Carmen Perez
[2018-11-29 04:00] VITALS: BP 107/65
[2018-11-29] MEDS: levETIRAcetam 500mg/5ml Liquid GT SCH ×3 (05:52→21:51)
--- NOTE | 2018-11-29 07:25 | NUR ---
HAND-OFF: Report given to Kirsty Helms RN.
--- NOTE | 2018-11-29 07:26 | NUR ---
NURSE NOTES: Received patient in bed. Vent dependent. On continuous GTF. Right upper arm midline noted. Condom cath inplace. Contact isolation observed. Will continue plan of care.
[2018-11-29 08:00] VITALS: BP 108/75
[2018-11-29] MEDS: Vitamin D 1000 IU Tab GT SCH (09:02)
[2018-11-29] MEDS: sitaGLIPtin 50mg tab GT SCH (09:02)
[2018-11-29] MEDS: Meropenem 1 GM in NS 55 ML IVPB SCH ×2 (09:04→20:48)
[2018-11-29] MEDS: Levemir Flexpen SUBQ SCH ×2 (09:09→20:51)
[2018-11-29] MEDS: Heparin 5000 units/ml inj SUBQ SCH ×2 (09:09→20:50)
[2018-11-29 09:11] LABS: BASOPHILS % (AUTO) 0.9 % (0.0-2.0); EOSINOPHILS % (AUTO) 9.6 % (0.0-3.0); HEMATOCRIT 37.7 % (42.0-52.0); HEMOGLOBIN 12.2 G/DL (14.2-18.0); LYMPHOCYTES % (AUTO) 13.7 % (20.0-45.0); MEAN CORPUSCULAR VOLUME 93 FL (80-99); MONOCYTES % (AUTO) 3.7 % (1.0-10.0); NEUTROPHILS % (AUTO) 72.2 % (45.0-75.0); PLATELET COUNT 245 K/UL (150-450); RED BLOOD COUNT 4.04 M/UL (4.70-6.10); RED CELL DISTRIBUTION WIDTH 16.8 % (11.6-14.8); WHITE BLOOD COUNT 16.4 K/UL (4.8-10.8)
[2018-11-29 09:36] LABS: ANION GAP 13 mmol/L (5-15); BLOOD UREA NITROGEN 29 mg/dL (7-18); CALCIUM 9.6 MG/DL (8.5-10.1); CARBON DIOXIDE 21 MMOL/L (21-32); CHLORIDE 110 MMOL/L (98-107); CREATININE 1.6 MG/DL (0.55-1.30); POTASSIUM 3.9 MMOL/L (3.5-5.1); SODIUM 144 MMOL/L (136-145)
--- NOTE | 2018-11-29 10:04 | Pulmonolgy Critical Care Note ---
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 (6) Vegetative state (7) Diabetes mellitus Respiratory: monitor respiratory rate, adjust FIO2, CXR Cardiac: continue to monitor HR/BP Renal: F/U I&O Infectious Disease: check cultures Gastrointestinal: continue feedings/current rate Endocrine: monitor blood sugar Hematologic: monitor H/H, transfuse if hgb<8.5 Neurologic: PRN Ativan, keep patient comfortable Disposition: keep in ICU Notes Reviewed: renal Discussed with: nurses, consultants, caseworker protective servicesassisted living care manager - Objective Last 24 Hour Vital Signs Date Time Temp Pulse Resp B/P (MAP) Pulse Ox O2 Delivery O2 Flow Rate FiO2 11/29/18 08:40 95 18 40 11/29/18 08:00 97.7 96 16 108/75 (86) 100 11/29/18 08:00 Mechanical Ventilator 11/29/18 08:00 40 11/29/18 06:35 97 16 40 11/29/18 04:42 90 17 40 11/29/18 04:00 Mechanical Ventilator 11/29/18 04:00 98.6 96 17 107/65 (79) 100 11/29/18 04:00 40 11/29/18 03:41 102 11/29/18 03:30 98 16 40 11/29/18 01:40 99 16 40 11/29/18 00:00 99.4 92 17 112/81 (91) 100 11/29/18 00:00 92 11/29/18 00:00 Mechanical Ventilator 11/28/18 22:57 102 16 40 11/28/18 21:27 101 17 40 11/28/18 20:00 40 11/28/18 20:00 Mechanical Ventilator 11/28/18 20:00 99.5 105 16 104/77 (86) 100 11/28/18 19:30 106 16 40 11/28/18 19:29 109 11/28/18 16:55 111 19 40 11/28/18 16:00 Mechanical Ventilator 11/28/18 16:00 99.6 107 17 102/77 (85) 100 11/28/18 16:00 40 11/28/18 15:37 104 11/28/18 15:20 101 16 40 11/28/18 12:50 100 16 40 11/28/18 12:00 Mechanical Ventilator 11/28/18 12:00 40 11/28/18 12:00 99.7 102 16 119/78 (92) 100 11/28/18 11:54 97 11/28/18 10:55 99 16 40 Status: awake Condition: critical Lungs: chest wall tender Heart: HR/BP stable Abdomen: soft, feeding tube Extremities: no C/C/E Accucheck: 211 Critical Care - Subjective FI02: 40 Vent Support Breath Rate: 16 Vent Support Mode: AC Vent Tidal Volume: 600 Sputum Amount: Small PEEP: 5.0 PIP: 27 Tube Feeding Amount: 40 I&O: Intake and Output 11/28/18 11/29/18 19:00 07:00 Intake Total 1795 ml 1695 ml Output Total 525 ml 750 ml Balance 1270 ml 945 ml Free Water 160 ml 200 ml IV Total 1155 ml 1155 ml Tube Feeding 480 ml 280 ml Other 60 ml Output Urine Total 375 ml 400 ml Stool Total 150 ml 350 ml # Voids 1 Labs: Laboratory Tests Test 11/29/18 08:30 White Blood Count 16.4 K/UL (4.8-10.8) H Red Blood Count 4.04 M/UL (4.70-6.10) L Hemoglobin 12.2 G/DL (14.2-18.0) L Hematocrit 37.7 % (42.0-52.0) L Mean Corpuscular Volume 93 FL (80-99) Mean Corpuscular Hemoglobin 30.3 PG (27.0-31.0) Mean Corpuscular Hemoglobin Concent 32.4 G/DL (32.0-36.0) Red Cell Distribution Width 16.8 % (11.6-14.8) H Platelet Count 245 K/UL (150-450) Mean Platelet Volume 10.6 FL (6.5-10.1) H Neutrophils (%) (Auto) 72.2 % (45.0-75.0) Lymphocytes (%) (Auto) 13.7 % (20.0-45.0) L Monocytes (%) (Auto) 3.7 % (1.0-10.0) Eosinophils (%) (Auto) 9.6 % (0.0-3.0) H Basophils (%) (Auto) 0.9 % (0.0-2.0) Sodium Level 144 MMOL/L (136-145) Potassium Level 3.9 MMOL/L (3.5-5.1) Chloride Level 110 MMOL/L (98-107) H Carbon Dioxide Level 21 MMOL/L (21-32) Anion Gap 13 mmol/L (5-15) Blood Urea Nitrogen 29 mg/dL (7-18) H Creatinine 1.6 MG/DL (0.55-1.30) H Estimat Glomerular Filtration Rate 55.5 mL/min (>60) Glucose Level 215 MG/DL (74-106) H Calcium Level 9.6 MG/DL (8.5-10.1) Nico Goetz MD Nov 29, 2018 10:04
--- NOTE | 2018-11-29 10:06 | Infectious Diseases Prog Note ---
Assessment/Plan Assessment/Plan Mr. Ramos is a 53 yo male with PMHx of chronic resp failure - vent/trach dependent, ICH, COPD, Dm2, seizure disoder, BPH, DM2, dysphagia, G tube, colostomy who was admitted to the hospital on 11/17/18 with fever, hypotension and tachycardia. He was found to have P.a. UTI. He has been on zosyn. His inital leukocytosis has been improving and his fevers have resoved. UTI complicated UA (+) Indewlling kendrick UCx 11/17/18 P.a. (R Levo, otherwise S) UCx 11/23/18 - Enterobacter and yeast and Pa CT abd 11/19/18 3 mm distal right ureteral calculus, minimal resultant hydronephrosis. Atrophic left kidney, containing a large staghorn calculus and multiple intrarenal calyceal calculi, previously described Leukocytosis 15 on admit; improved Aebrile to 102; resolved -11/23 CXR: Hypoventilatory lungs. Left lung base atelectasis. Mild pancreatitis Chronic resp failure - vent/trach dependent ICH COPD DM Seizure disorder BPH Dysphagia, G tube Colostomy Plan - Continue Merpenem #2/ and fluconazole #2/7 f/u Repeat blood Cx - 11/28/18 SP Ccfepeim #4 - 11/25/18 SP Zosyn # 7 - 11/22/18 SP Vanocmcyin #4- No evidence for MRSA - Monitor CBC and temps We will continue to follow the patient during this hospitalization. Subjective Allergies: Coded Allergies: AZTREONAM (Verified Allergy, Unknown, 05/13/18) Subjective Afebrile Leukocytosis decreasing Objective Vital Signs Last 24 Hour Vital Signs Date Time Temp Pulse Resp B/P (MAP) Pulse Ox O2 Delivery O2 Flow Rate FiO2 11/29/18 08:40 95 18 40 11/29/18 08:00 97.7 96 16 108/75 (86) 100 11/29/18 08:00 Mechanical Ventilator 11/29/18 08:00 40 11/29/18 06:35 97 16 40 11/29/18 04:42 90 17 40 11/29/18 04:00 Mechanical Ventilator 11/29/18 04:00 98.6 96 17 107/65 (79) 100 11/29/18 04:00 40 11/29/18 03:41 102 11/29/18 03:30 98 16 40 11/29/18 01:40 99 16 40 11/29/18 00:00 99.4 92 17 112/81 (91) 100 11/29/18 00:00 92 11/29/18 00:00 Mechanical Ventilator 11/28/18 22:57 102 16 40 11/28/18 21:27 101 17 40 11/28/18 20:00 40 11/28/18 20:00 Mechanical Ventilator 11/28/18 20:00 99.5 105 16 104/77 (86) 100 11/28/18 19:30 106 16 40 11/28/18 19:29 109 11/28/18 16:55 111 19 40 11/28/18 16:00 Mechanical Ventilator 11/28/18 16:00 99.6 107 17 102/77 (85) 100 11/28/18 16:00 40 11/28/18 15:37 104 11/28/18 15:20 101 16 40 11/28/18 12:50 100 16 40 11/28/18 12:00 Mechanical Ventilator 11/28/18 12:00 40 11/28/18 12:00 99.7 102 16 119/78 (92) 100 11/28/18 11:54 97 11/28/18 10:55 99 16 40 Height (Feet): 5 Height (Inches): 7.00 Weight (Pounds): 197 Objective Gen: NAD, No responsive , On vent satting well HEENT: NCAT, MMM, trached LUNGS: Course B/L HEART: RRR ABD: Soft, Obese, NT, ND, + BS,PEG and Colostomy (No E/P) Skin: Sacral ulcers - Not infected stage 2 Laboratory Tests Test 11/29/18 08:30 White Blood Count 16.4 K/UL (4.8-10.8) H Red Blood Count 4.04 M/UL (4.70-6.10) L Hemoglobin 12.2 G/DL (14.2-18.0) L Hematocrit 37.7 % (42.0-52.0) L Mean Corpuscular Volume 93 FL (80-99) Mean Corpuscular Hemoglobin 30.3 PG (27.0-31.0) Mean Corpuscular Hemoglobin Concent 32.4 G/DL (32.0-36.0) Red Cell Distribution Width 16.8 % (11.6-14.8) H Platelet Count 245 K/UL (150-450) Mean Platelet Volume 10.6 FL (6.5-10.1) H Neutrophils (%) (Auto) 72.2 % (45.0-75.0) Lymphocytes (%) (Auto) 13.7 % (20.0-45.0) L Monocytes (%) (Auto) 3.7 % (1.0-10.0) Eosinophils (%) (Auto) 9.6 % (0.0-3.0) H Basophils (%) (Auto) 0.9 % (0.0-2.0) Sodium Level 144 MMOL/L (136-145) Potassium Level 3.9 MMOL/L (3.5-5.1) Chloride Level 110 MMOL/L (98-107) H Carbon Dioxide Level 21 MMOL/L (21-32) Anion Gap 13 mmol/L (5-15) Blood Urea Nitrogen 29 mg/dL (7-18) H Creatinine 1.6 MG/DL (0.55-1.30) H Estimat Glomerular Filtration Rate 55.5 mL/min (>60) Glucose Level 215 MG/DL (74-106) H Calcium Level 9.6 MG/DL (8.5-10.1) Current Medications Medications (Trade) Dose Ordered Sig/Va Route PRN Reason Start Time Stop Time Status Last Admin Dose Admin Acetaminophen (Tylenol) 650 mg Q4H PRN GT Mild Pain/Temp > 100.5 11/18/18 08:15 12/18/18 08:14 11/27/18 16:39 Artificial Tears (Akwa-Tears) 1 drop Q4H PRN BOTH EYES Dry Eyes 11/18/18 07:45 12/18/18 07:44 11/26/18 08:59 Baclofen (Lioresal) 10 mg EVERY 8 HOURS GT 11/18/18 14:00 12/18/18 13:59 11/29/18 05:52 Chlorhexidine Gluconate (Rebecca-Hex 2%) 1 applic DAILY@2000 TOPIC 11/27/18 22:45 12/28/18 19:59 11/28/18 19:59 Dextrose 1,000 ml @ 100 mls/hr Q10H IV 11/28/18 00:00 12/28/18 00:00 11/29/18 06:00 Dextrose (Dextrose 50%) 25 ml Q30M PRN IV Hypoglycemia 11/18/18 07:45 12/18/18 07:44 Dextrose (Dextrose 50%) 50 ml Q30M PRN IV Hypoglycemia 11/18/18 07:45 12/18/18 07:44 Heparin Sodium (Porcine) (Heparin 5000 units/ml) 5,000 units EVERY 12 HOURS SUBQ 11/18/18 09:00 12/18/18 08:59 11/29/18 09:09 Insulin Aspart (NovoLOG) EVERY 4 HOURS SUBQ 11/20/18 13:00 12/18/18 11:59 11/29/18 09:10 Insulin Detemir (Levemir) 15 units Q12HR SUBQ 11/19/18 00:00 12/19/18 00:00 11/29/18 09:09 Lansoprazole (Prevacid) 30 mg DAILY GT 11/21/18 09:00 12/21/18 08:59 11/29/18 09:02 Levetiracetam (Keppra) 1,000 mg EVERY 8 HOURS GT 11/18/18 14:00 12/18/18 13:59 11/29/18 05:52 Meropenem 1 gm/ Sodium Chloride 55 ml @ 110 mls/hr Q12HR IVPB 11/28/18 10:00 12/03/18 09:59 11/29/18 09:04 Nystatin (Nystatin Cr) 1 applic EVERY 12 HOURS TOPIC 11/18/18 09:00 12/18/18 08:59 11/29/18 09:02 Polyethylene Glycol (Miralax) 17 gm DAILYPRN PRN GT Constipation 11/18/18 07:45 12/18/18 07:44 Silver Sulfadiazine (Silvadene Cream 25gm) 1 applic BEDTIME TOPIC 11/23/18 21:00 12/18/18 08:59 11/28/18 21:19 Sitagliptin Phosphate (Januvia) 50 mg DAILY GT 11/18/18 09:00 12/18/18 08:59 11/29/18 09:02 Vitamin D (Vitamin D) 1,000 intlu DAILY GT 11/18/18 09:00 12/18/18 08:59 11/29/18 09:02 Kali Richter MD Nov 29, 2018 10:06
[2018-11-29 12:00] VITALS: BP 121/81
[2018-11-29] MEDS ORDERED: NS 275ml ONE (14:01)
[2018-11-29] MEDS ORDERED: Tubing IV Secondary IV ONE (14:01)
--- NOTE | 2018-11-29 14:49 | NUR ---
*-* INSURANCE *-* CLINICALS AND REVIEW FAXED TO: [employer] LACEY:MINERVA P:[phone] F:[phone] REF#[id number]
--- NOTE | 2018-11-29 15:01 | General Progress Note ---
Assessment/Plan Assessment/Plan Assessment/Recommendations # Leukocytosis. Likely related to underlying infection versus reactive process. --> Peripheral has been reviewed --> Medications have been reviewed --> Imaging has been reviewed -->Blood cultures and urine cultures prn --> has been started on abx, empiric treatment --> wbc trend: 14-->11-->9-->12->13 # Anemia of chronic disease --> w/u has been reviewed from prior hospitalizations # Acute pancreatitis, status post cerebral hemorrhage with severe encephalopathy. # Acute on chronic respiratory failure --> ventilator dependent and fed via gastrostomy tube --> Continue with albuterol sulfate and ipratropium # Diabetes mellitus -->Humalog insulin with sliding scale every six hours # Sepsis # Gastrostomy tube dependent # Colostomy in place # Vegetative state The timing of this note does not necessarily reflect the time of the patient was seen Greatly appreciate consultation! Subjective ROS Limited/Unobtainable: Yes Allergies: Coded Allergies: AZTREONAM (Verified Allergy, Unknown, 05/13/18) Subjective 2/1: Pt is seen in the room,on vent, G tube, leukocytosis has been improving and his fevers have resolved. 2/3: on vent, resting in bed, wbc trending up, no fevers or chills, 2/4: The patient has low-grade fever with tachycardia, CXR reveals small left pleural effusion. 2/5: no events, labs reviewed, h/h appers stable at this time, imaging reviewed 2/6: on vent, resting, wbc trending up, no overnight events reported. 2: wbc trending up, 19 today, The patient remained febrile and tachycardic, but hemodynamically stable. 2: wbc trending down, remains afebrile, no acute distress reported. Objective Last 24 Hour Vital Signs Date Time Temp Pulse Resp B/P (MAP) Pulse Ox O2 Delivery O2 Flow Rate FiO2 11/29/18 14:30 91 17 40 11/29/18 13:01 95 17 40 11/29/18 12:00 Mechanical Ventilator 11/29/18 12:00 40 11/29/18 12:00 98.2 94 18 121/81 (94) 100 11/29/18 11:49 97 11/29/18 10:47 96 16 40 11/29/18 08:40 95 18 40 11/29/18 08:00 97.7 96 16 108/75 (86) 100 11/29/18 08:00 Mechanical Ventilator 11/29/18 08:00 40 11/29/18 07:54 97 11/29/18 06:35 97 16 40 11/29/18 04:42 90 17 40 11/29/18 04:00 Mechanical Ventilator 11/29/18 04:00 98.6 96 17 107/65 (79) 100 11/29/18 04:00 40 11/29/18 03:41 102 11/29/18 03:30 98 16 40 11/29/18 01:40 99 16 40 11/29/18 00:00 99.4 92 17 112/81 (91) 100 11/29/18 00:00 92 11/29/18 00:00 Mechanical Ventilator 11/28/18 22:57 102 16 40 11/28/18 21:27 101 17 40 11/28/18 20:00 40 11/28/18 20:00 Mechanical Ventilator 11/28/18 20:00 99.5 105 16 104/77 (86) 100 11/28/18 19:30 106 16 40 11/28/18 19:29 109 11/28/18 16:55 111 19 40 11/28/18 16:00 Mechanical Ventilator 11/28/18 16:00 99.6 107 17 102/77 (85) 100 11/28/18 16:00 40 11/28/18 15:37 104 11/28/18 15:20 101 16 40 Intake and Output 11/28/18 11/29/18 19:00 07:00 Intake Total 1795 ml 1695 ml Output Total 525 ml 750 ml Balance 1270 ml 945 ml Free Water 160 ml 200 ml IV Total 1155 ml 1155 ml Tube Feeding 480 ml 280 ml Other 60 ml Output Urine Total 375 ml 400 ml Stool Total 150 ml 350 ml # Voids 1 Laboratory Tests 11/29/18 08:30: White Blood Count 16.4H, Red Blood Count 4.04L, Hemoglobin 12.2L, Hematocrit 37.7L, Mean Corpuscular Volume 93, Mean Corpuscular Hemoglobin 30.3, Mean Corpuscular Hemoglobin Concent 32.4, Red Cell Distribution Width 16.8H, Platelet Count 245, Mean Platelet Volume 10.6H, Neutrophils (%) (Auto) 72.2, Lymphocytes (%) (Auto) 13.7L, Monocytes (%) (Auto) 3.7, Eosinophils (%) (Auto) 9.6H, Basophils (%) (Auto) 0.9, Sodium Level 144, Potassium Level 3.9, Chloride Level 110H, Carbon Dioxide Level 21, Anion Gap 13, Blood Urea Nitrogen 29H, Creatinine 1.6H, Estimat Glomerular Filtration Rate 55.5, Glucose Level 215H, Calcium Level 9.6 Height (Feet): 5 Height (Inches): 7.00 Weight (Pounds): 197 Objective PHYSICAL EXAMINATION General Appearance: on vent HEENT: normocephalic, atraumatic Neck: non-tender, normal alignment Respiratory/Chest: ++ VENT/trach Cardiovascular/Chest: normal peripheral pulses, normal rate Abdomen: normal bowel sounds ++ peg Extremities: poorl range of motion Jimmy Fleming MD Nov 29, 2018 15:01
[2018-11-29 16:00] VITALS: BP 111/74
--- NOTE | 2018-11-29 19:20 | NUR ---
HAND-OFF: Report given to Gee Rodriguez RN.
--- NOTE | 2018-11-29 19:21 | NUR ---
NURSE NOTES: Report received from JAMSHID King. Observed pt lying on the bed. Pt is obtunded. SR with monitor worker. Trach to vent, portex6, AC 16, TD 600, FIO2 40%, PEEP 5. Gtube intact and running Glucerna 1.5 @ 40cc/hr. Colostomy bag on R abdomen and intact. Condom catheter in place and draining well. R UA midline intact and running D5 at 100cc/hr. Bed in the lowest position. Padded side rails up x3. Will continue to monitor.
[2018-11-29 20:00] VITALS: BP 113/78
[2018-11-30] VITALS: BP 104/72
[2018-11-30] MEDS: NovoLOG Insulin Flexpen SUBQ SCH ×6 (01:03→20:48)
--- NOTE | 2018-11-30 01:15 | Progress Note ---
DATE: 11/29/2018 SUBJECTIVE: The patient is afebrile, hemodynamically stable. His tachycardia resolved. PHYSICAL EXAMINATION: VITAL SIGNS: Blood pressure 111/74, pulse is 96, respirations 17, and temperature 98.1. HEENT: Eyes were normal. ENT, mucous membranes were moist and intact. NECK: Supple with no JVD without lymph nodes. Tracheostomy site is clean. LUNGS: Clear without rhonchi, rales, or wheezing. Secretions are small, thin, and hodgson. HEART: Normal sounds with regular beat. There is no tachycardia at rest. ABDOMEN: Soft and nontender with normal bowel sounds. Gastrostomy site is clean. EXTREMITIES: Warm without cyanosis, clubbing, or edema. LABORATORY AND DIAGNOSTIC DATA: Hemoglobin is 12.2, hematocrit 37.7 with MCV of 93, WBC of 16.4, and platelets 245. His BUN and creatinine are 29 and 1.6 respectively. His sodium is 144, potassium 3.9, chloride 110, CO2 is 21, and his calcium is 9.6. Chest x-ray done yesterday revealed blunting of the left costophrenic angle, scarring, otherwise, no significant change. The patient has declined. Repeat laboratory tests will be done in the a.m. Sariah Bhat M.D. DR: MARIELLA JOB#: [id number] CC:
--- NOTE | 2018-11-30 03:45 | NUR ---
NURSE NOTES: Observed pt lying on the bed. Well tolerated to current vent setting. No acute distress noted. Oral care done. 100cc residual noted and hold the feeding. Will continue to monitor. Addendum: 11/30/18 at 0347 by Gee Sneed RN Note time: 0000
[2018-11-30 04:00] VITALS: BP 106/70
[2018-11-30] MEDS: levETIRAcetam 500mg/5ml Liquid GT SCH ×3 (05:16→21:31)
[2018-11-30 05:29] LABS: BASOPHILS % (AUTO) 1.7 % (0.0-2.0); EOSINOPHILS % (AUTO) 7.7 % (0.0-3.0); HEMATOCRIT 38.9 % (42.0-52.0); HEMOGLOBIN 11.9 G/DL (14.2-18.0); LYMPHOCYTES % (AUTO) 13.2 % (20.0-45.0); MEAN CORPUSCULAR VOLUME 94 FL (80-99); MONOCYTES % (AUTO) 5.4 % (1.0-10.0); NEUTROPHILS % (AUTO) 72.1 % (45.0-75.0); PLATELET COUNT 229 K/UL (150-450); RED BLOOD COUNT 4.15 M/UL (4.70-6.10); RED CELL DISTRIBUTION WIDTH 16.6 % (11.6-14.8); WHITE BLOOD COUNT 15.3 K/UL (4.8-10.8)
[2018-11-30 05:55] LABS: ANION GAP 14 mmol/L (5-15); BLOOD UREA NITROGEN 22 mg/dL (7-18); CALCIUM 10.2 MG/DL (8.5-10.1); CARBON DIOXIDE 21 MMOL/L (21-32); CHLORIDE 105 MMOL/L (98-107); CREATININE 1.5 MG/DL (0.55-1.30); POTASSIUM 3.7 MMOL/L (3.5-5.1); SODIUM 140 MMOL/L (136-145)
--- NOTE | 2018-11-30 07:35 | NUR ---
HAND-OFF: Report given to JAMSHID Diaz.
--- NOTE | 2018-11-30 07:40 | NUR ---
NURSE NOTES: Report received from Gee Sneed RN.pt resting quietly in bed ,awake,obtunded,noted no resp distress noted ,with trach tube to vent ,current settings tolerated,no signs of pain or discomfort,SR on the monitor,GTF Glucerna 1,5 at 4o ml/hr,no residual noted, Rt colostomy in placed with yellow brown soft formed stools, pt incontinent of urine, inserted a new condom cath,KEIRA Midline intact,with IVF D5NS running at 100 ml/hr,SR up x2 HOB elevated ,bed lock in lowest position,will continue with plans of care.
[2018-11-30 08:00] VITALS: BP 120/57
[2018-11-30] MEDS: Vitamin D 1000 IU Tab GT SCH (09:25)
[2018-11-30] MEDS: sitaGLIPtin 50mg tab GT SCH (09:26)
[2018-11-30] MEDS: Levemir Flexpen SUBQ SCH ×2 (09:28→20:47)
[2018-11-30] MEDS: Heparin 5000 units/ml inj SUBQ SCH ×2 (09:29→20:46)
[2018-11-30] MEDS: Meropenem 1 GM in NS 55 ML IVPB SCH ×2 (09:34→20:45)
--- NOTE | 2018-11-30 11:18 | NUR ---
CASE MANAGEMENT: REVIEW SI: SEPSIS T 97.9 HR 100 RR 18 BP 120/57 SAT 100% MECH VENT FIO2 40 WBC 15.3 H/H 11.9/38.9 BUN 22 CR 1.5 IS: MEROPENEM IV Q12HR D5W IVF @ 100ML/HR KEPPRA GT Q8HR BACLOFEN GT Q8HR STEP DOWN UNIT STATUS DCP: PATIENT IS FROM [facility]
[2018-11-30 12:00] VITALS: BP 133/95
--- NOTE | 2018-11-30 12:00 | NUR ---
NURSE NOTES: no change in pt's status,remains stable,turned and repositioned ,oral/tracheal secretions suctioned PRN
--- NOTE | 2018-11-30 12:17 | Pulmonolgy Critical Care Note ---
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 (6) Vegetative state (7) Diabetes mellitus Respiratory: monitor respiratory rate, adjust FIO2, CXR Cardiac: continue to monitor HR/BP Renal: F/U I&O, keep IV fluid Infectious Disease: check cultures Gastrointestinal: continue feedings/current rate Endocrine: monitor blood sugar, check HgA1C, continue sliding scale insulin Hematologic: transfuse if hgb<8.5 Neurologic: PRN Morphine, keep patient comfortable Affect: PRN ativan Prophylaxis: Protonix, Heparin Notes Reviewed: railroad cook, 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 Discussed with: nurses, consultants, caseworkermanager heavy duty - Objective Last 24 Hour Vital Signs Date Time Temp Pulse Resp B/P (MAP) Pulse Ox O2 Delivery O2 Flow Rate FiO2 11/30/18 10:49 99 18 40 11/30/18 09:46 97 11/30/18 08:39 99 18 40 11/30/18 08:00 40 11/30/18 08:00 Mechanical Ventilator 11/30/18 08:00 97.9 94 18 120/57 (78) 100 11/30/18 07:18 100 18 40 11/30/18 05:27 98 17 40 11/30/18 04:00 95 11/30/18 04:00 Mechanical Ventilator 11/30/18 04:00 97.9 96 17 106/70 (82) 100 11/30/18 04:00 40 11/30/18 03:10 96 16 40 11/30/18 00:41 98 17 40 11/30/18 00:00 40 11/30/18 00:00 Mechanical Ventilator 11/30/18 00:00 99 11/30/18 00:00 98.7 98 18 104/72 (83) 100 11/29/18 22:53 98 22 40 11/29/18 20:33 96 22 40 11/29/18 20:00 Mechanical Ventilator 11/29/18 20:00 97 11/29/18 20:00 98.4 100 16 113/78 (90) 100 11/29/18 20:00 40 11/29/18 19:08 95 17 40 11/29/18 17:15 96 17 40 11/29/18 16:06 96 11/29/18 16:00 98.1 94 16 111/74 (86) 100 11/29/18 16:00 40 11/29/18 16:00 Mechanical Ventilator 11/29/18 14:30 91 17 40 11/29/18 13:01 95 17 40 Status: awake HEENT: atraumatic Heart: HR/BP stable Abdomen: soft, active bowel sounds Extremities: no C/C/E Decubiti: location Accucheck: 175 Critical Care - Subjective ROS Limited/Unobtainable: Yes Condition: critical EKG Rhythm: Sinus Rhythm FI02: 40 Vent Support Breath Rate: 16 Vent Support Mode: AC Vent Tidal Volume: 600 Sputum Amount: Moderate PEEP: 5.0 PIP: 31 Tube Feeding Amount: 40 I&O: Intake and Output 11/29/18 11/30/18 19:00 07:00 Intake Total 1985 ml 1715 ml Output Total 600 ml 850 ml Balance 1385 ml 865 ml Free Water 200 ml 120 ml IV Total 1255 ml 1055 ml Tube Feeding 480 ml 440 ml Blood Product 100 ml Other 50 ml Output Urine Total 350 ml 700 ml Stool Total 250 ml 150 ml CXR: no change Labs: Laboratory Tests Test 11/30/18 04:30 White Blood Count 15.3 K/UL (4.8-10.8) H Red Blood Count 4.15 M/UL (4.70-6.10) L Hemoglobin 11.9 G/DL (14.2-18.0) L Hematocrit 38.9 % (42.0-52.0) L Mean Corpuscular Volume 94 FL (80-99) Mean Corpuscular Hemoglobin 28.7 PG (27.0-31.0) Mean Corpuscular Hemoglobin Concent 30.7 G/DL (32.0-36.0) L Red Cell Distribution Width 16.6 % (11.6-14.8) H Platelet Count 229 K/UL (150-450) Mean Platelet Volume 9.7 FL (6.5-10.1) Neutrophils (%) (Auto) 72.1 % (45.0-75.0) Lymphocytes (%) (Auto) 13.2 % (20.0-45.0) L Monocytes (%) (Auto) 5.4 % (1.0-10.0) Eosinophils (%) (Auto) 7.7 % (0.0-3.0) H Basophils (%) (Auto) 1.7 % (0.0-2.0) Sodium Level 140 MMOL/L (136-145) Potassium Level 3.7 MMOL/L (3.5-5.1) Chloride Level 105 MMOL/L (98-107) Carbon Dioxide Level 21 MMOL/L (21-32) Anion Gap 14 mmol/L (5-15) Blood Urea Nitrogen 22 mg/dL (7-18) H Creatinine 1.5 MG/DL (0.55-1.30) H Estimat Glomerular Filtration Rate 59.8 mL/min (>60) Glucose Level 179 MG/DL (74-106) H Calcium Level 10.2 MG/DL (8.5-10.1) H Nico Goetz MD Nov 30, 2018 12:17
[2018-11-30 16:00] VITALS: BP 127/78
--- NOTE | 2018-11-30 19:09 | NUR ---
HAND-OFF: Report given to Wesly Choudhary RN,pt stable no resp distress presented during the shift .
--- NOTE | 2018-11-30 19:30 | NUR ---
NURSE NOTES: Received pt in no acute distress; obtunded; non verbal due to trach. Vent dependent; tolerating current vent settings of AC16 TV600 fiO2.40 peep 5. Temp 99 axillary; HR 100 BP 109/68; secretions mod white; sats 100%. Midline cath on KEIRA intact with IVF of D5W running at 100ml/h. GT patent GTF with Glucerna 1.5 running at 40ml/h with 0 residuals. Right colostomy intact draining liquid brown stools. Replaced condom cath. Wound dressing dry and intact. Will continue to monitor. Bed locked and in low position.
[2018-11-30 20:00] VITALS: BP 109/68
[2018-12-01] VITALS: BP 121/82
--- NOTE | 2018-12-01 | NUR ---
NURSE NOTES: Remains obtunded. No seizure activity noted.GTF well tolerated at 40ml/h; no residuals. Saturating 100% on .40 fiO2. Afebrile; ST on the scope. BP stable. No distress
[2018-12-01] MEDS: NovoLOG Insulin Flexpen SUBQ SCH ×6 (01:01→21:00)
--- NOTE | 2018-12-01 02:30 | Progress Note ---
DATE: 11/30/2018 SUBJECTIVE: The patient is awake, alert, and afebrile and hemodynamically stable. PHYSICAL EXAMINATION: VITAL SIGNS: Blood pressure is 109/68. His pulse is 100, respirations 22, temperature 99. HEENT: Eyes were normal. ENT, mucous membranes were moist and intact. NECK: Supple with no JVD and without lymph nodes. Tracheostomy site is clean. LUNGS: Clear without rhonchi, rales, or wheezing. Secretions are small, thin, and hodgson. HEART: Normal sounds with regular beats. There is no S3, S4, or pericardial rub. ABDOMEN: Soft and nontender with normal bowel sounds. Gastrostomy site is clean. EXTREMITIES: Warm without cyanosis, clubbing, or edema. LABORATORY AND DIAGNOSTIC DATA: Hemoglobin is 11.9, hematocrit 38.9 with MCV of 94, WBC of 15.3, and platelets 229. The WBC was 19.7 on 11/28/2018, 16.4 on 11/29/2018 and 15.3 on 11/30/2018. BUN and creatinine 22 and 1.5 respectively. It was 24 and 2.1 on 11/28/2018; 29 and 1.6 on 11/29/2018. Creatinine 1.5 and BUN is 22. Calcium level of 10.2. Repeat laboratory tests will be done in the a.m. Sariah Bhat M.D. DR: BENJY JOB#: [id number] CC:
[2018-12-01 04:00] VITALS: BP 111/75
--- NOTE | 2018-12-01 04:00 | NUR ---
NURSE NOTES: complete bed bath done, Wound dressings done. PEG dressing changed. Colostomy intact. Midline cath patent. Afebrile; sats 100%. No seizures noted.
[2018-12-01] MEDS: levETIRAcetam 500mg/5ml Liquid GT SCH ×3 (05:27→21:47)
--- NOTE | 2018-12-01 06:42 | NUR ---
RESPIRATORY NOTE: Received pt on current vent settings. Pt tracheostomy tube is patent and secured. No resp distress noted. Suctioned pt prn. Vent alarms are on and audible. Vent is plugged into red outlet. Will monitor pt progress.
--- NOTE | 2018-12-01 07:11 | NUR ---
HAND-OFF: Report given to Estelle Bernal RN.
--- NOTE | 2018-12-01 07:15 | NUR ---
NURSE NOTES: Report received from Dickson Menon RN.Pt resting in bed,obtunded,with trach tube to vent, current vent settings tolerated ,no resp distress presented,no signs of pain or discomfort S-R on the monitor,GTF Glucerna 1.5 at 40 ml/hr no residual noted,Rt Colostomy in placed with liquid yellow stools in mod amount,condom cath intact,draining yellow urine, with KEIRA Midline with IVF running,D5W at 100 ml/hr,iv site intact,skin warm and dry,SR up x2 HOB elevated,bed lock in lowest position ,will continue with plans of care.
[2018-12-01 08:00] VITALS: BP 106/56
--- NOTE | 2018-12-01 08:24 | Infectious Diseases Prog Note ---
Assessment/Plan Assessment/Plan Mr. Ramos is a 53 yo male with PMHx of chronic resp failure - vent/trach dependent, ICH, COPD, Dm2, seizure disoder, BPH, DM2, dysphagia, G tube, colostomy who was admitted to the hospital on 11/17/18 with fever, hypotension and tachycardia. He was found to have P.a. UTI. He has been on zosyn. His inital leukocytosis has been improving and his fevers have resoved. UTI complicated UA (+) Indewlling kendrick UCx 11/17/18 P.a. (R Levo, otherwise S) UCx 11/23/18 - Enterobacter and yeast and Pa CT abd 11/19/18 3 mm distal right ureteral calculus, minimal resultant hydronephrosis. Atrophic left kidney, containing a large staghorn calculus and multiple intrarenal calyceal calculi, previously described Leukocytosis 15 on admit; improved with meropenem Aebrile to 102; resolved -11/23 CXR: Hypoventilatory lungs. Left lung base atelectasis. Mild pancreatitis Chronic resp failure - vent/trach dependent ICH COPD DM Seizure disorder BPH Dysphagia, G tube Colostomy Plan - Continue Merpenem #4/-10 - 11/28/18 SP Cefepeim #4 - 11/25/18 SP Zosyn # 7 - 11/22/18 SP Vanocmcyin #4- No evidence for MRSA - Monitor CBC and temps We will continue to follow the patient during this hospitalization. Subjective Allergies: Coded Allergies: AZTREONAM (Verified Allergy, Unknown, 05/13/18) Subjective Afebrile Leukocytosis continues to decrease Objective Vital Signs Last 24 Hour Vital Signs Date Time Temp Pulse Resp B/P (MAP) Pulse Ox O2 Delivery O2 Flow Rate FiO2 12/01/18 06:42 90 18 40 12/01/18 05:12 91 17 40 12/01/18 04:00 97 12/01/18 04:00 Mechanical Ventilator 12/01/18 04:00 97.7 97 16 111/75 (87) 100 12/01/18 04:00 40 12/01/18 03:03 88 18 40 12/01/18 01:02 96 17 40 12/01/18 00:00 98.7 100 16 121/82 (95) 100 12/01/18 00:00 40 12/01/18 00:00 100 12/01/18 00:00 Mechanical Ventilator 11/30/18 22:55 94 17 40 11/30/18 21:02 100 16 40 11/30/18 20:00 Mechanical Ventilator 11/30/18 20:00 40 11/30/18 20:00 99.0 100 22 109/68 (82) 100 11/30/18 20:00 100 11/30/18 18:47 101 17 40 11/30/18 16:33 103 19 40 11/30/18 16:14 102 11/30/18 16:00 98.4 104 22 127/78 (94) 100 11/30/18 16:00 Mechanical Ventilator 11/30/18 16:00 40 11/30/18 14:58 97 17 40 11/30/18 13:30 107 20 40 11/30/18 12:00 40 11/30/18 12:00 Mechanical Ventilator 11/30/18 12:00 98.2 96 28 133/95 (108) 98 11/30/18 12:00 113 11/30/18 10:49 99 18 40 11/30/18 09:46 97 11/30/18 08:39 99 18 40 Height (Feet): 5 Height (Inches): 7.00 Weight (Pounds): 197 Objective Gen: NAD, Not responsive HEENT: NCAT, MMM, trached LUNGS: Course B/L HEART: RRR ABD: Soft, Obese, NT, ND, + BS,PEG and Colostomy (No E/P) Skin: Sacral ulcers - Not infected stage 2 Current Medications Medications (Trade) Dose Ordered Sig/Va Route PRN Reason Start Time Stop Time Status Last Admin Dose Admin Acetaminophen (Tylenol) 650 mg Q4H PRN GT Mild Pain/Temp > 100.5 11/18/18 08:15 12/18/18 08:14 11/27/18 16:39 Artificial Tears (Akwa-Tears) 1 drop Q4H PRN BOTH EYES Dry Eyes 11/18/18 07:45 12/18/18 07:44 11/26/18 08:59 Baclofen (Lioresal) 10 mg EVERY 8 HOURS GT 11/18/18 14:00 12/18/18 13:59 12/01/18 05:27 Dextrose 1,000 ml @ 100 mls/hr Q10H IV 11/28/18 00:00 12/28/18 00:00 11/30/18 21:32 Dextrose (Dextrose 50%) 25 ml Q30M PRN IV Hypoglycemia 11/18/18 07:45 12/18/18 07:44 Dextrose (Dextrose 50%) 50 ml Q30M PRN IV Hypoglycemia 11/18/18 07:45 12/18/18 07:44 Heparin Sodium (Porcine) (Heparin 5000 units/ml) 5,000 units EVERY 12 HOURS SUBQ 11/18/18 09:00 12/18/18 08:59 11/30/18 20:46 Insulin Aspart (NovoLOG) EVERY 4 HOURS SUBQ 11/20/18 13:00 12/18/18 11:59 12/01/18 04:42 Insulin Detemir (Levemir) 15 units Q12HR SUBQ 11/19/18 00:00 12/19/18 00:00 11/30/18 20:47 Lansoprazole (Prevacid) 30 mg DAILY GT 11/21/18 09:00 12/21/18 08:59 11/30/18 09:25 Levetiracetam (Keppra) 1,000 mg EVERY 8 HOURS GT 11/18/18 14:00 12/18/18 13:59 12/01/18 05:27 Meropenem 1 gm/ Sodium Chloride 55 ml @ 110 mls/hr Q12HR IVPB 11/28/18 10:00 12/04/18 23:59 11/30/18 20:45 Nystatin (Nystatin Cr) 1 applic EVERY 12 HOURS TOPIC 11/18/18 09:00 12/18/18 08:59 11/30/18 20:54 Polyethylene Glycol (Miralax) 17 gm DAILYPRN PRN GT Constipation 11/18/18 07:45 12/18/18 07:44 Silver Sulfadiazine (Silvadene Cream 25gm) 1 applic BEDTIME TOPIC 11/23/18 21:00 12/18/18 08:59 11/30/18 20:55 Sitagliptin Phosphate (Januvia) 50 mg DAILY GT 11/18/18 09:00 12/18/18 08:59 11/30/18 09:26 Vitamin D (Vitamin D) 1,000 intlu DAILY GT 11/18/18 09:00 12/18/18 08:59 11/30/18 09:25 Kali Richter MD Dec 01, 2018 08:24
[2018-12-01] MEDS: Vitamin D 1000 IU Tab GT SCH (09:42)
[2018-12-01] MEDS: Meropenem 1 GM in NS 55 ML IVPB SCH ×2 (09:42→21:46)
[2018-12-01] MEDS: sitaGLIPtin 50mg tab GT SCH (09:42)
[2018-12-01] MEDS: Heparin 5000 units/ml inj SUBQ SCH ×2 (09:45→22:00)
[2018-12-01] MEDS: Levemir Flexpen SUBQ SCH ×2 (09:51→21:59)
--- NOTE | 2018-12-01 10:22 | NUR ---
CASE MANAGEMENT: REVIEW 12/01/2018 SI: SEPSIS. T 98.1 HR 98 RR 16 B/P 106/56 SATS 100% ON MECH VENT FiO2 40 NO LABS TODAY IS: MEROPENEM IV Q12HR D5W IVF @ 100ML/HR KEPPRA GT Q8HR BACLOFEN GT Q8HR STEP DOWN UNIT STATUS DCP: PATIENT IS FROM [facility]
[2018-12-01 12:00] VITALS: BP 102/69
--- NOTE | 2018-12-01 13:02 | NUR ---
NURSE NOTES: Pt asleep no resp distress presented,V/S stable, turned and repositioned ,oral/tracheal secretions suctioned PRN.
[2018-12-01 16:00] VITALS: BP 102/67
--- NOTE | 2018-12-01 17:00 | NUR ---
NURSE NOTES: NURSE NOTES: bed bath given,kept dry and clean,turned and repositioned.
--- NOTE | 2018-12-01 19:05 | NUR ---
RESPIRATORY NOTE: PT RECEIVED STABLE ON AC 16,600,40%,+5. ALARMS ON AND AUDIBLE. VENT PLUGGED INTO RED OUTLET. VENT CIRCUIT AND SX TUBING SECURE AND OUT OF THE WAY. PT COMFORTABLE SHOWING NO S/S OF RESPIRATORY DISTRESS. WILL CONTINUE TO MONITOR.
--- NOTE | 2018-12-01 19:25 | NUR ---
HAND-OFF: Report given to Silvestre Desai RN.
[2018-12-01 20:00] VITALS: BP 104/56
--- NOTE | 2018-12-01 20:00 | NUR ---
NURSE NOTES: pt trach -vent ac16 tv 600 fio2 60 o2 sat 100 0/0 reposition and suction non verbal no acute resp noted TOLERATED TUBE FEEDING DARA CATN CHANGE CLEAN REPOSITION AND SUCTION
--- NOTE | 2018-12-01 20:18 | Pulmonolgy Critical Care Note ---
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 (6) Vegetative state (7) Diabetes mellitus Respiratory: monitor respiratory rate, adjust FIO2, CXR Cardiac: start pressors, continue to monitor HR/BP Renal: F/U I&O Infectious Disease: check cultures Gastrointestinal: continue feedings/current rate Endocrine: monitor blood sugar Hematologic: monitor H/H, transfuse if hgb<8.5 Neurologic: PRN Morphine, keep patient comfortable Affect: PRN ativan Prophylaxis: Protonix Notes Reviewed: dispatch lead, cardio Discussed with: nurses, consultants, complex case managerconvention services manager - Objective Last 24 Hour Vital Signs Date Time Temp Pulse Resp B/P (MAP) Pulse Ox O2 Delivery O2 Flow Rate FiO2 12/01/18 16:52 93 16 40 12/01/18 16:00 Mechanical Ventilator 12/01/18 16:00 97 12/01/18 16:00 40 12/01/18 16:00 98.1 94 16 102/67 (79) 100 12/01/18 14:45 92 16 40 12/01/18 12:49 97 16 40 12/01/18 12:07 Mechanical Ventilator 12/01/18 12:06 40 12/01/18 12:00 95 12/01/18 12:00 97.9 100 16 102/69 (80) 100 12/01/18 11:01 91 18 40 12/01/18 08:52 92 18 40 12/01/18 08:01 Mechanical Ventilator 12/01/18 08:00 94 12/01/18 08:00 98.1 98 16 106/56 (73) 100 12/01/18 08:00 40 12/01/18 06:42 90 18 40 12/01/18 05:12 91 17 40 12/01/18 04:00 97 12/01/18 04:00 Mechanical Ventilator 12/01/18 04:00 97.7 97 16 111/75 (87) 100 12/01/18 04:00 40 12/01/18 03:03 88 18 40 12/01/18 01:02 96 17 40 12/01/18 00:00 98.7 100 16 121/82 (95) 100 12/01/18 00:00 40 12/01/18 00:00 100 2/10/19 00:00 Mechanical Ventilator 11/30/18 22:55 94 17 40 11/30/18 21:02 100 16 40 Status: awake Condition: critical HEENT: atraumatic Neck: full ROM Lungs: chest wall tender Heart: HR/BP unstable Abdomen: non-tender Extremities: no C/C/E Decubiti: location Accucheck: 163 Critical Care - Subjective ROS Limited/Unobtainable: Yes Condition: critical EKG Rhythm: Sinus Rhythm FI02: 40 Vent Support Breath Rate: 16 Vent Support Mode: AC Vent Tidal Volume: 600 Sputum Amount: Small PEEP: 5.0 PIP: 31 Tube Feeding Amount: 40 I&O: Intake and Output 11/30/18 12/01/18 19:00 07:00 Intake Total 1760 ml 2190 ml Output Total 800 ml 1350 ml Balance 960 ml 840 ml Free Water 100 ml IV Total 1000 ml 1410 ml Tube Feeding 480 ml 480 ml Blood Product 100 ml Other 180 ml 200 ml Output Urine Total 550 ml 1100 ml Stool Total 250 ml 250 ml CXR: no change Nico Goetz MD Dec 01, 2018 20:18
[2018-12-02] VITALS: BP 104/56
--- NOTE | 2018-12-02 | Progress Note ---
DATE: 12/01/2018 SUBJECTIVE: The patient is awake, alert, afebrile, and hemodynamically stable. PHYSICAL EXAMINATION: HEENT: Eyes were normal. ENT, mucous membranes were moist and intact. NECK: Supple with no JVD and without lymph nodes. Tracheostomy site is clean. LUNGS: Clear without rhonchi, rales, or wheezing. Secretions are small, thin, and hodgson. HEART: Normal sounds with regular beats. There is no S3, S4, or pericardial rub. ABDOMEN: Soft and nontender with normal bowel sounds. EXTREMITIES: Warm without cyanosis, clubbing, or edema. LABORATORY DATA: Hemoglobin is 11.9, hematocrit 38.9 with MCV of 94, and WBC of . BUN and creatinine is 22 and 1.5 respectively. His sodium is 140, potassium 3.7, chloride 105, and CO2 is . IMPRESSION AND PLAN: The patient remained in stable condition. His creatinine is slightly improved. Repeat laboratory tests will be done in the a.m. Sariah Bhat M.D. DR: PATTIE JOB#: [id number] CC:
[2018-12-02] MEDS: NovoLOG Insulin Flexpen SUBQ SCH ×6 (01:19→21:02)
[2018-12-02 04:00] VITALS: BP 111/74
--- NOTE | 2018-12-02 05:10 | NUR ---
RESPIRATORY NOTE: PT. STABLE ON CMV WITH CURRENT ORDERS. SXN. PRN WITHOUT ADVERSE REACTION. VENT CIRCUIT SECURE AND OUT OF THE WAY.NO S/S OF RESPIRATORY DISTRESS NOTED AT THIS TIME.
[2018-12-02] MEDS: levETIRAcetam 500mg/5ml Liquid GT SCH ×3 (06:14→21:34)
--- NOTE | 2018-12-02 07:24 | NUR ---
HAND-OFF: Report given to [].
--- NOTE | 2018-12-02 07:25 | NUR ---
HAND-OFF: Report given to [].
--- NOTE | 2018-12-02 07:30 | NUR ---
HAND-OFF: Report given to RAMIREZ BREEN.
[2018-12-02 08:00] VITALS: BP 116/77
--- NOTE | 2018-12-02 08:10 | NUR ---
NURSE NOTES: received pt in the bed, vent dependent, vital signs stable, obtunded, no SOB, no co pain, skin warm and dry to touch, dressing dry and intact on sacral, midline on RT upper arm, dressing dry and intact, tolerate GT feeding well, bed in low position, HOB elevated, condom catheter with yellow urine, colostomy.
[2018-12-02] MEDS: Vitamin D 1000 IU Tab GT SCH (09:05)
[2018-12-02] MEDS: sitaGLIPtin 50mg tab GT SCH (09:05)
[2018-12-02] MEDS: Heparin 5000 units/ml inj SUBQ SCH ×2 (09:13→21:03)
[2018-12-02] MEDS: Levemir Flexpen SUBQ SCH ×2 (09:14→21:03)
[2018-12-02] MEDS: Meropenem 1 GM in NS 55 ML IVPB SCH ×2 (09:16→21:01)
--- NOTE | 2018-12-02 11:42 | Infectious Diseases Prog Note ---
Assessment/Plan Assessment/Plan Mr. Ramos is a 53 yo male with PMHx of chronic resp failure - vent/trach dependent, ICH, COPD, Dm2, seizure disoder, BPH, DM2, dysphagia, G tube, colostomy who was admitted to the hospital on 11/17/18 with fever, hypotension and tachycardia. He was found to have P.a. UTI. He has been on zosyn. His inital leukocytosis has been improving and his fevers have resoved. UTI complicated UA (+) Indewlling kendrick UCx 11/17/18 P.a. (R Levo, otherwise S) UCx 11/23/18 - Enterobacter (S Cefepime) and yeast and Pa CT abd 11/19/18 3 mm distal right ureteral calculus, minimal resultant hydronephrosis. Atrophic left kidney, containing a large staghorn calculus and multiple intrarenal calyceal calculi, previously described Leukocytosis 15 on admit; improved with meropenem Aebrile to 102; resolved -11/23 CXR: Hypoventilatory lungs. Left lung base atelectasis. Mild pancreatitis Chronic resp failure - vent/trach dependent ICH COPD DM Seizure disorder BPH Dysphagia, G tube Colostomy Plan - Continue Merpenem #5/7 - 11/28/18 SP Cefepeim #4 - 11/25/18 SP Zosyn # 7 - 11/22/18 SP Vanocmcyin #4- No evidence for MRSA - Monitor CBC and temps -CBC, CMp am We will continue to follow the patient during this hospitalization. Subjective Allergies: Coded Allergies: AZTREONAM (Verified Allergy, Unknown, 05/13/18) Subjective afebrile no cbc today Objective Vital Signs Last 24 Hour Vital Signs Date Time Temp Pulse Resp B/P (MAP) Pulse Ox O2 Delivery O2 Flow Rate FiO2 12/02/18 09:25 98 16 40 12/02/18 08:00 40 12/02/18 08:00 Mechanical Ventilator 12/02/18 08:00 95 12/02/18 08:00 98.6 96 16 116/77 (90) 100 12/02/18 07:12 92 17 40 12/02/18 05:10 100 16 40 12/02/18 04:00 Mechanical Ventilator 12/02/18 04:00 98 12/02/18 04:00 40 12/02/18 04:00 98.1 93 16 111/74 (86) 100 12/02/18 03:20 97 16 40 12/02/18 01:17 99 16 40 12/02/18 00:00 Mechanical Ventilator 12/02/18 00:00 40 12/02/18 00:00 98.5 98 16 104/56 (72) 100 12/02/18 00:00 95 12/01/18 23:15 100 16 40 12/01/18 22:00 40 12/01/18 21:28 101 17 40 12/01/18 20:00 98 12/01/18 20:00 98.5 98 16 104/56 (72) 100 12/01/18 20:00 40 12/01/18 20:00 Mechanical Ventilator 12/01/18 19:05 100 23 40 12/01/18 16:52 93 16 40 12/01/18 16:00 Mechanical Ventilator 12/01/18 16:00 97 12/01/18 16:00 40 12/01/18 16:00 98.1 94 16 102/67 (79) 100 12/01/18 14:45 92 16 40 12/01/18 12:49 97 16 40 12/01/18 12:07 Mechanical Ventilator 12/01/18 12:06 40 12/01/18 12:00 95 12/01/18 12:00 97.9 100 16 102/69 (80) 100 Height (Feet): 5 Height (Inches): 7.00 Weight (Pounds): 197 Objective Gen: NAD, On vent HEENT: NCAT, MMM, PERRL, No Oral lesion, no scleral icterus, trached NECK: full range of motion, supple, no meningismus, No LAD, No JVD LUNGS: CTAB, No W/C, No Accessory muscle use CARDS: RRR, S1, S2, No M/R/G, ABD: Soft, Obese, NT, ND, No R/G, + BS, No HSM, No Masses, PEG and Colostomy ( No E/P) : Deferred Ext: C/C/E, Pulses 2+ B/L (DP, Rad): NEURO: Not responding, No spontaneous movements SKIN: Warm/dry, No rashes Current Medications Medications (Trade) Dose Ordered Sig/Va Route PRN Reason Start Time Stop Time Status Last Admin Dose Admin Acetaminophen (Tylenol) 650 mg Q4H PRN GT Mild Pain/Temp > 100.5 11/18/18 08:15 12/18/18 08:14 11/27/18 16:39 Artificial Tears (Akwa-Tears) 1 drop Q4H PRN BOTH EYES Dry Eyes 11/18/18 07:45 12/18/18 07:44 11/26/18 08:59 Baclofen (Lioresal) 10 mg EVERY 8 HOURS GT 11/18/18 14:00 12/18/18 13:59 12/02/18 06:14 Dextrose 1,000 ml @ 100 mls/hr Q10H IV 11/28/18 00:00 12/28/18 00:00 12/02/18 04:45 Dextrose (Dextrose 50%) 25 ml Q30M PRN IV Hypoglycemia 11/18/18 07:45 12/18/18 07:44 Dextrose (Dextrose 50%) 50 ml Q30M PRN IV Hypoglycemia 11/18/18 07:45 12/18/18 07:44 Heparin Sodium (Porcine) (Heparin 5000 units/ml) 5,000 units EVERY 12 HOURS SUBQ 11/18/18 09:00 12/18/18 08:59 12/02/18 09:13 Insulin Aspart (NovoLOG) EVERY 4 HOURS SUBQ 11/20/18 13:00 12/18/18 11:59 12/02/18 09:13 Insulin Detemir (Levemir) 15 units Q12HR SUBQ 11/19/18 00:00 12/19/18 00:00 12/02/18 09:14 Lansoprazole (Prevacid) 30 mg DAILY GT 11/21/18 09:00 12/21/18 08:59 12/02/18 09:05 Levetiracetam (Keppra) 1,000 mg EVERY 8 HOURS GT 11/18/18 14:00 12/18/18 13:59 12/02/18 06:14 Meropenem 1 gm/ Sodium Chloride 55 ml @ 110 mls/hr Q12HR IVPB 11/28/18 10:00 12/04/18 23:59 12/02/18 09:16 Nystatin (Nystatin Cr) 1 applic EVERY 12 HOURS TOPIC 11/18/18 09:00 12/18/18 08:59 12/02/18 09:15 Polyethylene Glycol (Miralax) 17 gm DAILYPRN PRN GT Constipation 11/18/18 07:45 12/18/18 07:44 Silver Sulfadiazine (Silvadene Cream 25gm) 1 applic BEDTIME TOPIC 11/23/18 21:00 12/18/18 08:59 12/01/18 21:00 Sitagliptin Phosphate (Januvia) 50 mg DAILY GT 11/18/18 09:00 12/18/18 08:59 12/02/18 09:05 Vitamin D (Vitamin D) 1,000 intlu DAILY GT 11/18/18 09:00 12/18/18 08:59 12/02/18 09:05 Maribel Barrera M.D. Dec 02, 2018 11:42
[2018-12-02 12:00] VITALS: BP 131/53
--- NOTE | 2018-12-02 12:11 | Pulmonolgy Critical Care Note ---
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 (6) Vegetative state (7) Diabetes mellitus Respiratory: monitor respiratory rate, adjust FIO2, CXR Cardiac: continue to monitor HR/BP Renal: F/U I&O, check electrolytes Infectious Disease: check cultures Endocrine: monitor blood sugar, check TSH Neurologic: PRN Morphine Affect: PRN ativan Notes Reviewed: certified fire investigator, renal Discussed with: consultants, manager caserecruitment advertising manager - Objective Last 24 Hour Vital Signs Date Time Temp Pulse Resp B/P (MAP) Pulse Ox O2 Delivery O2 Flow Rate FiO2 12/02/18 09:25 98 16 40 12/02/18 08:00 40 12/02/18 08:00 Mechanical Ventilator 12/02/18 08:00 95 12/02/18 08:00 98.6 96 16 116/77 (90) 100 12/02/18 07:12 92 17 40 12/02/18 05:10 100 16 40 12/02/18 04:00 Mechanical Ventilator 12/02/18 04:00 98 12/02/18 04:00 40 12/02/18 04:00 98.1 93 16 111/74 (86) 100 12/02/18 03:20 97 16 40 12/02/18 01:17 99 16 40 12/02/18 00:00 Mechanical Ventilator 12/02/18 00:00 40 12/02/18 00:00 98.5 98 16 104/56 (72) 100 12/02/18 00:00 95 12/01/18 23:15 100 16 40 12/01/18 22:00 40 12/01/18 21:28 101 17 40 12/01/18 20:00 98 12/01/18 20:00 98.5 98 16 104/56 (72) 100 12/01/18 20:00 40 12/01/18 20:00 Mechanical Ventilator 12/01/18 19:05 100 23 40 12/01/18 16:52 93 16 40 12/01/18 16:00 Mechanical Ventilator 12/01/18 16:00 97 12/01/18 16:00 40 12/01/18 16:00 98.1 94 16 102/67 (79) 100 12/01/18 14:45 92 16 40 12/01/18 12:49 97 16 40 Status: obtunded Condition: critical Lungs: clear Heart: HR/BP stable Abdomen: soft Extremities: no C/C/E, edema Accucheck: 170 Critical Care - Subjective ROS Limited/Unobtainable: Yes Condition: critical EKG Rhythm: Sinus Rhythm FI02: 40 Vent Support Breath Rate: 16 Vent Support Mode: AC Vent Tidal Volume: 600 Sputum Amount: Small PEEP: 5.0 PIP: 28 Tube Feeding Amount: 40 I&O: Intake and Output 12/01/18 12/02/18 18:59 06:59 Intake Total 1695 ml 1695 ml Output Total 475 ml 1350 ml Balance 1220 ml 345 ml Free Water 200 ml 100 ml IV Total 855 ml 1155 ml Tube Feeding 440 ml 440 ml Other 200 ml Output Urine Total 300 ml 1050 ml Stool Total 175 ml 300 ml Nico Goetz MD Dec 02, 2018 12:11
[2018-12-02 16:00] VITALS: BP 121/76
--- NOTE | 2018-12-02 16:21 | NUR ---
CLAY PRESS OPERATORDIRECTOR OF CONSULTING SERVICES SI: RESP FAILURE TRACH/VENT DEPENDENT, SEPSIS T. 98.5 HR 102 RR 17 B/P 131/53 AC 16 TV 600 FIO2 40% PEEP 5 IS: MEROPENEM IV IVF D5@ 100ML/HR KEPPRA GT HEPARIN SUBC STEP DOWN STATUS
--- NOTE | 2018-12-02 16:36 | NUR ---
NURSE NOTES: no change in condition, vital signs stable, no co pain, bed bath given, tolerate GT feeding well, continue monitoring.
--- NOTE | 2018-12-02 19:22 | NUR ---
HAND-OFF: Report given to MARVIN BREEN.
--- NOTE | 2018-12-02 19:30 | NUR ---
LESLEY NOTES: Given report from JAMSHID Falk. Received Pt is resting on the bed and obtunded. Trach to Vent dependent setting with Ac: 16, T; 600, P:5, and FiO2 40% and SaO2 100%. BT : 99.2F noted. Provided cooling measure. Given tracheal and oral suction. Provided oral care. Applied cooling measure. On G-tube feeding with Glucerna 1.5 @ 40cc/hr. No residual noted. Superior cath out and applied new condom cath. Dressing is clean and dry on wound area. Changed position. On colostomy bag and yellowish liquid stool noted. Rt. upper arm mid line area dressing is intact and patent. Placed fall and seizure precaution. Will continue to care plan.
[2018-12-02 20:00] VITALS: BP 112/79
--- NOTE | 2018-12-02 22:18 | General Progress Note ---
Assessment/Plan Assessment/Plan Assessment/Recommendations # Leukocytosis. Likely related to underlying infection versus reactive process. --> Peripheral has been reviewed --> Medications have been reviewed --> Imaging has been reviewed -->Blood cultures and urine cultures prn --> has been started on abx, empiric treatment --> wbc trend: 14-->11-->9-->12->13 # Anemia of chronic disease --> w/u has been reviewed from prior hospitalizations # Acute pancreatitis, status post cerebral hemorrhage with severe encephalopathy. # Acute on chronic respiratory failure --> ventilator dependent and fed via gastrostomy tube --> Continue with albuterol sulfate and ipratropium # Diabetes mellitus -->Humalog insulin with sliding scale every six hours # Sepsis # Gastrostomy tube dependent # Colostomy in place # Vegetative state The timing of this note does not necessarily reflect the time of the patient was seen Greatly appreciate consultation! Subjective Constitutional: Denies: no symptoms, chills, diaphoresis, fever, malaise, weakness, other HEENT: Denies: no symptoms, eye pain, blurred vision, tearing, double vision, ear pain, ear discharge, nose pain, nose congestion, throat pain, throat swelling, mouth pain, mouth swelling, other Cardiovascular: Denies: no symptoms, chest pain, edema, irregular heart rate, lightheadedness, palpitations, syncope, other Respiratory: Denies: no symptoms, cough, orthopnea, shortness of breath, SOB with excertion, SOB at rest, sputum, stridor, wheezing, other Gastrointestinal/Abdominal: Denies: no symptoms, abdomen distended, abdominal pain, black stools, tarry stools, blood in stool, constipated, diarrhea, difficulty swallowing, nausea, poor appetite, poor fluid intake, rectal bleeding , vomiting, other Genitourinary: Denies: no symptoms, burning, discharge, frequency, flank pain, hematuria, incontinence, pain, urgency, other Neurologic/Psychiatric: Denies: no symptoms, anxiety, depressed, emotional problems, headache, numbness, paresthesia, pre-existing deficit, seizure, tingling, tremors, weakness, other Endocrine: Denies: no symptoms, excessive sweating, flushing, intolerance to cold, intolerance to heat, increased hunger, increased thirst, increased urine, unexplained weight gain, unexplained weight loss, other Hematologic/Lymphatic: Denies: no symptoms, anemia, easy bleeding, easy bruising, other Allergies: Coded Allergies: AZTREONAM (Verified Allergy, Unknown, 05/13/18) Subjective 2: Pt is seen in the room,on vent, G tube, leukocytosis has been improving and his fevers have resolved. 2: on vent, resting in bed, wbc trending up, no fevers or chills, 2: The patient has low-grade fever with tachycardia, CXR reveals small left pleural effusion. 2: no events, labs reviewed, h/h appers stable at this time, imaging reviewed 2: on vent, resting, wbc trending up, no overnight events reported. 11/28: wbc trending up, 19 today, The patient remained febrile and tachycardic, but hemodynamically stable. 11/29: wbc trending down, remains afebrile, no acute distress reported 12/02: seen by bedside, no events, labs reviewed, h/h appers stable at this time , imaging reviewed Objective Last 24 Hour Vital Signs Date Time Temp Pulse Resp B/P (MAP) Pulse Ox O2 Delivery O2 Flow Rate FiO2 12/02/18 21:10 101 22 40 12/02/18 20:00 99.2 102 17 112/79 (90) 100 12/02/18 20:00 Mechanical Ventilator 12/02/18 20:00 100 12/02/18 20:00 40 12/02/18 19:16 101 17 40 12/02/18 17:14 96 17 40 12/02/18 16:00 101 12/02/18 16:00 97.9 100 17 121/76 (91) 100 12/02/18 16:00 40 12/02/18 16:00 Mechanical Ventilator 12/02/18 15:15 102 17 40 12/02/18 12:23 101 17 40 12/02/18 12:00 97 12/02/18 12:00 98.5 92 18 131/53 (79) 100 12/02/18 12:00 Mechanical Ventilator 12/02/18 12:00 40 12/02/18 09:25 98 16 40 12/02/18 08:00 40 12/02/18 08:00 Mechanical Ventilator 12/02/18 08:00 95 12/02/18 08:00 98.6 96 16 116/77 (90) 100 12/02/18 07:12 92 17 40 12/02/18 05:10 100 16 40 12/02/18 04:00 Mechanical Ventilator 12/02/18 04:00 98 12/02/18 04:00 40 12/02/18 04:00 98.1 93 16 111/74 (86) 100 12/02/18 03:20 97 16 40 12/02/18 01:17 99 16 40 12/02/18 00:00 Mechanical Ventilator 12/02/18 00:00 40 12/02/18 00:00 98.5 98 16 104/56 (72) 100 12/02/18 00:00 95 12/01/18 23:15 100 16 40 Intake and Output 12/01/18 12/02/18 19:00 07:00 Intake Total 1455 ml 1835 ml Output Total 475 ml 1350 ml Balance 980 ml 485 ml Free Water 100 ml 100 ml IV Total 755 ml 1255 ml Tube Feeding 400 ml 480 ml Other 200 ml Output Urine Total 300 ml 1050 ml Stool Total 175 ml 300 ml Height (Feet): 5 Height (Inches): 7.00 Weight (Pounds): 197 Objective PHYSICAL EXAMINATION General Appearance: on vent HEENT: normocephalic, atraumatic Neck: non-tender, normal alignment Respiratory/Chest: ++ VENT/trach Cardiovascular/Chest: normal peripheral pulses, normal rate Abdomen: normal bowel sounds ++ peg Extremities: poorl range of motion Jimmy Fleming MD Dec 02, 2018 22:18
[2018-12-02] MEDS: Dyna-Hex 2% Top Sol 2oz TOPIC SCH (22:33)
[2018-12-03] VITALS: BP 125/69
--- NOTE | 2018-12-03 | NUR ---
NURSE NOTES: Pt is sleeping on the bed and no sign of acute distress noted. Tolerated well with current Vent setting. Given oral care and suction. On G-tubed feeding and tolerated well. No fever noted at this time. Changed position. Placed fall precaution. Will continue to care plan.
[2018-12-03] MEDS: NovoLOG Insulin Flexpen SUBQ SCH ×5 (01:11→17:20)
[2018-12-03 04:00] VITALS: BP 120/81
[2018-12-03] MEDS: levETIRAcetam 500mg/5ml Liquid GT SCH ×2 (05:36→14:16)
[2018-12-03 05:52] LABS: EOSINOPHILS % (AUTO) 9.7 % (0.0-3.0); HEMATOCRIT 32.2 % (42.0-52.0); HEMOGLOBIN 10.7 G/DL (14.2-18.0); LYMPHOCYTES % (AUTO) 21.7 % (20.0-45.0); MEAN CORPUSCULAR VOLUME 91 FL (80-99); MONOCYTES % (AUTO) 3.6 % (1.0-10.0); PLATELET COUNT 242 K/UL (150-450); RED BLOOD COUNT 3.53 M/UL (4.70-6.10); RED CELL DISTRIBUTION WIDTH 16.9 % (11.6-14.8); WHITE BLOOD COUNT 12.2 K/UL (4.8-10.8)
[2018-12-03 06:30] LABS: ALANINE AMINOTRANSFERASE 47 U/L (12-78); ALBUMIN 2.5 G/DL (3.4-5.0); ALKALINE PHOSPHATASE 138 U/L (46-116); ANION GAP 14 mmol/L (5-15); ASPARTATE AMINO TRANSFERASE 43 U/L (15-37); BILIRUBIN,TOTAL 0.4 MG/DL (0.2-1.0); BLOOD UREA NITROGEN 13 mg/dL (7-18); CALCIUM 8.9 MG/DL (8.5-10.1); CARBON DIOXIDE 20 MMOL/L (21-32); CHLORIDE 99 MMOL/L (98-107); POTASSIUM 3.5 MMOL/L (3.5-5.1); SODIUM 133 MMOL/L (136-145)
--- NOTE | 2018-12-03 07:21 | NUR ---
HAND-OFF: Report given to JAMSHID Diaz. Pt is sleeping on the bed and no sign of acute distress noted. Tolerated well with current Vent setting.
[2018-12-03 08:00] VITALS: BP 114/77
--- NOTE | 2018-12-03 08:00 | NUR ---
NURSE NOTES: received pt in the bed, obtunded, vent dependent, vital signs stable, no co pain, no SOB, skin warm and dry to touch, dressing dry and intact on sacral area, tolerate GT feeding well, midline on RT upper arm, dressing dry and intact, bed in low position, HOB elevated.
[2018-12-03] MEDS: Heparin 5000 units/ml inj SUBQ SCH (08:58)
[2018-12-03] MEDS: Levemir Flexpen SUBQ SCH (08:59)
[2018-12-03] MEDS: sitaGLIPtin 50mg tab GT SCH (09:00)
[2018-12-03] MEDS: Vitamin D 1000 IU Tab GT SCH (09:00)
[2018-12-03] MEDS: Meropenem 1 GM in NS 55 ML IVPB SCH ×2 (09:03→17:23)
--- NOTE | 2018-12-03 09:16 | NUR ---
*-* INSURANCE *-* CLINICALS AND REVIEW FAXED TO: [facility] B[employer]S LACEY:MINERVA P:[phone] F:[phone]
--- NOTE | 2018-12-03 09:54 | NUR ---
RADIOLOGY DEPT CHEST X-RAY DONE.-P.DYE
--- NOTE | 2018-12-03 11:10 | Pulmonolgy Critical Care Note ---
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 (6) Vegetative state (7) Diabetes mellitus Respiratory: monitor respiratory rate, adjust FIO2, CXR Cardiac: continue to monitor HR/BP Renal: F/U I&O Infectious Disease: check cultures, continue antibiotics Gastrointestinal: continue feedings/current rate Endocrine: monitor blood sugar, check HgA1C Hematologic: monitor H/H, transfuse if hgb<8.5 Neurologic: PRN Morphine, keep patient comfortable Prophylaxis: Protonix Notes Reviewed: automatic drill operator Discussed with: nurses, consultants, piano case makerbiofuels manager - Objective Last 24 Hour Vital Signs Date Time Temp Pulse Resp B/P (MAP) Pulse Ox O2 Delivery O2 Flow Rate FiO2 12/03/18 09:10 105 19 40 12/03/18 08:00 103 12/03/18 08:00 Mechanical Ventilator 12/03/18 08:00 98.4 99 17 114/77 (89) 100 12/03/18 08:00 40 12/03/18 06:40 103 16 40 12/03/18 05:08 102 17 40 12/03/18 04:00 Mechanical Ventilator 12/03/18 04:00 99.5 103 17 120/81 (94) 100 12/03/18 04:00 96 12/03/18 04:00 40 12/03/18 03:01 97 17 40 12/03/18 01:28 99 16 40 12/03/18 00:00 104 12/03/18 00:00 Mechanical Ventilator 12/03/18 00:00 99.0 103 17 125/69 (87) 100 12/02/18 22:57 104 19 40 12/02/18 22:15 104 19 Mechanical Ventilator 40 12/02/18 21:10 101 22 40 12/02/18 20:00 99.2 102 17 112/79 (90) 100 12/02/18 20:00 Mechanical Ventilator 12/02/18 20:00 100 12/02/18 20:00 40 12/02/18 19:16 101 17 40 12/02/18 17:14 96 17 40 12/02/18 16:00 101 12/02/18 16:00 97.9 100 17 121/76 (91) 100 12/02/18 16:00 40 12/02/18 16:00 Mechanical Ventilator 12/02/18 15:15 102 17 40 12/02/18 12:23 101 17 40 12/02/18 12:00 97 12/02/18 12:00 98.5 92 18 131/53 (79) 100 12/02/18 12:00 Mechanical Ventilator 12/02/18 12:00 40 Status: obtunded Condition: critical HEENT: atraumatic Lungs: clear Heart: HR/BP stable, regular Abdomen: active bowel sounds Extremities: edema Accucheck: 158 Critical Care - Subjective ROS Limited/Unobtainable: Yes FI02: 40 Vent Support Breath Rate: 16 Vent Support Mode: AC Vent Tidal Volume: 600 Sputum Amount: Small PEEP: 5.0 PIP: 28 Tube Feeding Amount: 40 I&O: Intake and Output 12/02/18 12/03/18 19:00 07:00 Intake Total 1785 ml 1671 ml Output Total 400 ml 1350 ml Balance 1385 ml 321 ml Free Water 150 ml IV Total 1155 ml 1191 ml Tube Feeding 480 ml 480 ml Output Urine Total 250 ml 1050 ml Stool Total 150 ml 300 ml # Voids 2 Labs: Laboratory Tests Test 12/03/18 04:00 White Blood Count 12.2 K/UL (4.8-10.8) H Red Blood Count 3.53 M/UL (4.70-6.10) L Hemoglobin 10.7 G/DL (14.2-18.0) L Hematocrit 32.2 % (42.0-52.0) L Mean Corpuscular Volume 91 FL (80-99) Mean Corpuscular Hemoglobin 30.2 PG (27.0-31.0) Mean Corpuscular Hemoglobin Concent 33.1 G/DL (32.0-36.0) Red Cell Distribution Width 16.9 % (11.6-14.8) H Platelet Count 242 K/UL (150-450) Mean Platelet Volume 11.2 FL (6.5-10.1) H Neutrophils (%) (Auto) 64.0 % (45.0-75.0) Lymphocytes (%) (Auto) 21.7 % (20.0-45.0) Monocytes (%) (Auto) 3.6 % (1.0-10.0) Eosinophils (%) (Auto) 9.7 % (0.0-3.0) H Basophils (%) (Auto) 1.0 % (0.0-2.0) Sodium Level 133 MMOL/L (136-145) L Potassium Level 3.5 MMOL/L (3.5-5.1) Chloride Level 99 MMOL/L (98-107) Carbon Dioxide Level 20 MMOL/L (21-32) L Anion Gap 14 mmol/L (5-15) Blood Urea Nitrogen 13 mg/dL (7-18) Creatinine 1.0 MG/DL (0.55-1.30) Estimat Glomerular Filtration Rate > 60 mL/min (>60) Glucose Level 179 MG/DL (74-106) H Calcium Level 8.9 MG/DL (8.5-10.1) Total Bilirubin 0.4 MG/DL (0.2-1.0) Aspartate Amino Transf (AST/SGOT) 43 U/L (15-37) H Alanine Aminotransferase (ALT/SGPT) 47 U/L (12-78) Alkaline Phosphatase 138 U/L (46-116) H Total Protein 7.8 G/DL (6.4-8.2) Albumin 2.5 G/DL (3.4-5.0) L Globulin 5.3 g/dL Nico Goetz MD Dec 03, 2018 11:10
[2018-12-03 12:00] VITALS: BP 97/77
--- NOTE | 2018-12-03 12:30 | Diagnostic Imaging Report ---
Indication: Dyspnea Technique: One view of the chest Comparison: 11/28/2018 Findings: Interim increase left lateral basilar opacity, likely reflects pleural fluid but may reflect some infiltrate. There is also generalized circumferential pleural thickening on the left. The right lung and pleural space remain clear. The heart size is upper limits of normal Impression: Possibly increasing left basilar pleural fluid and/or consolidation, over 5 days Other stable findings as noted
--- NOTE | 2018-12-03 13:42 | NUR ---
RD ASSESSMENT & RECOMMENDATIONS SEE CARE ACTIVITY FOR COMPLETE ASSESSMENT DAILY ESTIMATED NEEDS: Needs based on Critical care, wound /71kg abw 22-30 kcals/kg 6733-2551 total kcals 1.25-2 g protein/kg 88-142 g total protein 25-30 mL/kg 6350-5060 total fluid mLs NUTRITION DIAGNOSIS: * Swallowing difficulty R/T respiratory status, as evidenced by trach/vent dep, PEG dep. * Increased kcal and protein needs r/t wound healing as evidenced by pt with multiple wounds, including partial thickness wound @ L side neck under trach collar, resolving full thickness pressure injury @ sacrum, resolving pressure injury to L trochanter, and reabsorbing serous blister lateral L heel, refer to WC eval. * Altered nutrition related lab values R/T hyperglycemia, h/o DM as evidenced by elev BGs and POC glu (300's and 400's-> 177 172 169 161 152 improved), elev A1C 7.9 CURRENT TF:Glucerna 1.5 @ 40ml/hr x 24 hrs + PS TID ENTERAL NUTRITION RECOMMENDATIONS: Glucerna 1.5 @ 40ml/hr x 24 hrs + Prosource 1pkt TID to provide 960ml, 1440kcal (+120kcal), 79g (+33g prot), 729ml free water, 127g CHO * Maintain LOWER rate for improved glycemic control :will provide total of 127g CHO per day, 46g less CHO than previous TF * Add Prosource 1pkt TID to meet protein needs (TF + Prosource TID will provide 100% est kcal/prot needs) * HOB over 30 degrees/ Increase water flushes ADDITIONAL RECOMMENDATIONS: * Calibrated bedscale wt for accurate CBW * Monitor lytes, replete as needed, check updated phos level * Wound healing: Add Mayur 1pkt BID, vit C 500mg QD * Monitor BGs closely, need to adjust insulin/TF * Rec to DC D5 IVF and increase water flushes -> for glycemic control and Na is now low .
--- NOTE | 2018-12-03 15:15 | NUR ---
NURSE NOTES: no change in condition, no respiratory distress, continue monitoring.
--- NOTE | 2018-12-03 15:48 | Infectious Diseases Prog Note ---
Assessment/Plan Assessment/Plan Mr. Ramos is a 53 yo male with PMHx of chronic resp failure - vent/trach dependent, ICH, COPD, Dm2, seizure disoder, BPH, DM2, dysphagia, G tube, colostomy who was admitted to the hospital on 11/17/18 with fever, hypotension and tachycardia. He was found to have P.a. UTI. He has been on zosyn. His inital leukocytosis has been improving and his fevers have resoved. UTI complicated UA (+) Indewlling kendrick UCx 11/17/18 P.a. (R Levo, otherwise S) UCx 11/23/18 - Enterobacter (S Cefepime) and yeast and Pa CT abd 11/19/18 3 mm distal right ureteral calculus, minimal resultant hydronephrosis. Atrophic left kidney, containing a large staghorn calculus and multiple intrarenal calyceal calculi, previously described Leukocytosis 15 on admit; improvingwith meropenem Febrile to 102; resolved -12/03 CXR: Possibly increasing left basilar pleural fluid and/or consolidation , over 5 days -11/23 CXR: Hypoventilatory lungs. Left lung base atelectasis. Mild pancreatitis Chronic resp failure - vent/trach dependent ICH COPD DM Seizure disorder BPH Dysphagia, G tube Colostomy Plan - Continue Meropenem #6/7 - 11/28/18 SP Cefepeim #4 - 11/25/18 SP Zosyn # 7 - 11/22/18 SP Vanocmcyin #4- No evidence for MRSA - Monitor CBC/CMP and temps We will continue to follow the patient during this hospitalization. Subjective Allergies: Coded Allergies: AZTREONAM (Verified Allergy, Unknown, 05/13/18) Subjective afebrile leukocytosis improving Objective Vital Signs Last 24 Hour Vital Signs Date Time Temp Pulse Resp B/P (MAP) Pulse Ox O2 Delivery O2 Flow Rate FiO2 12/03/18 15:02 104 20 40 12/03/18 14:00 106 12/03/18 13:02 101 18 40 12/03/18 12:00 97.5 104 17 97/77 (84) 100 12/03/18 12:00 40 12/03/18 12:00 Mechanical Ventilator 12/03/18 10:50 99 20 40 12/03/18 09:10 105 19 40 12/03/18 08:00 103 12/03/18 08:00 Mechanical Ventilator 12/03/18 08:00 98.4 99 17 114/77 (89) 100 12/03/18 08:00 40 12/03/18 06:40 103 16 40 12/03/18 05:08 102 17 40 12/03/18 04:00 Mechanical Ventilator 12/03/18 04:00 99.5 103 17 120/81 (94) 100 12/03/18 04:00 96 12/03/18 04:00 40 12/03/18 03:01 97 17 40 12/03/18 01:28 99 16 40 12/03/18 00:00 104 12/03/18 00:00 Mechanical Ventilator 12/03/18 00:00 99.0 103 17 125/69 (87) 100 12/02/18 22:57 104 19 40 12/02/18 22:15 104 19 Mechanical Ventilator 40 12/02/18 21:10 101 22 40 12/02/18 20:00 99.2 102 17 112/79 (90) 100 12/02/18 20:00 Mechanical Ventilator 12/02/18 20:00 100 12/02/18 20:00 40 12/02/18 19:16 101 17 40 12/02/18 17:14 96 17 40 12/02/18 16:00 101 12/02/18 16:00 97.9 100 17 121/76 (91) 100 12/02/18 16:00 40 12/02/18 16:00 Mechanical Ventilator Height (Feet): 5 Height (Inches): 7.00 Weight (Pounds): 197 Objective Gen: NAD, On vent HEENT: NCAT, MMM, PERRL, No Oral lesion, no scleral icterus, trached NECK: full range of motion, supple, no meningismus, No LAD, No JVD LUNGS: CTAB, No W/C, No Accessory muscle use CARDS: RRR, S1, S2, No M/R/G, ABD: Soft, Obese, NT, ND, No R/G, + BS, No HSM, No Masses, PEG and Colostomy ( No E/P) : Deferred Ext: C/C/E, Pulses 2+ B/L (DP, Rad): NEURO: Not responding, No spontaneous movements SKIN: Warm/dry, No rashes Laboratory Tests Test 12/03/18 04:00 White Blood Count 12.2 K/UL (4.8-10.8) H Red Blood Count 3.53 M/UL (4.70-6.10) L Hemoglobin 10.7 G/DL (14.2-18.0) L Hematocrit 32.2 % (42.0-52.0) L Mean Corpuscular Volume 91 FL (80-99) Mean Corpuscular Hemoglobin 30.2 PG (27.0-31.0) Mean Corpuscular Hemoglobin Concent 33.1 G/DL (32.0-36.0) Red Cell Distribution Width 16.9 % (11.6-14.8) H Platelet Count 242 K/UL (150-450) Mean Platelet Volume 11.2 FL (6.5-10.1) H Neutrophils (%) (Auto) 64.0 % (45.0-75.0) Lymphocytes (%) (Auto) 21.7 % (20.0-45.0) Monocytes (%) (Auto) 3.6 % (1.0-10.0) Eosinophils (%) (Auto) 9.7 % (0.0-3.0) H Basophils (%) (Auto) 1.0 % (0.0-2.0) Sodium Level 133 MMOL/L (136-145) L Potassium Level 3.5 MMOL/L (3.5-5.1) Chloride Level 99 MMOL/L (98-107) Carbon Dioxide Level 20 MMOL/L (21-32) L Anion Gap 14 mmol/L (5-15) Blood Urea Nitrogen 13 mg/dL (7-18) Creatinine 1.0 MG/DL (0.55-1.30) Estimat Glomerular Filtration Rate > 60 mL/min (>60) Glucose Level 179 MG/DL (74-106) H Calcium Level 8.9 MG/DL (8.5-10.1) Total Bilirubin 0.4 MG/DL (0.2-1.0) Aspartate Amino Transf (AST/SGOT) 43 U/L (15-37) H Alanine Aminotransferase (ALT/SGPT) 47 U/L (12-78) Alkaline Phosphatase 138 U/L (46-116) H Total Protein 7.8 G/DL (6.4-8.2) Albumin 2.5 G/DL (3.4-5.0) L Globulin 5.3 g/dL Current Medications Medications (Trade) Dose Ordered Sig/Va Route PRN Reason Start Time Stop Time Status Last Admin Dose Admin Acetaminophen (Tylenol) 650 mg Q4H PRN GT Mild Pain/Temp > 100.5 11/18/18 08:15 12/18/18 08:14 11/27/18 16:39 Artificial Tears (Akwa-Tears) 1 drop Q4H PRN BOTH EYES Dry Eyes 11/18/18 07:45 12/18/18 07:44 11/26/18 08:59 Baclofen (Lioresal) 10 mg EVERY 8 HOURS GT 11/18/18 14:00 12/18/18 13:59 12/03/18 14:16 Chlorhexidine Gluconate (Rebecca-Hex 2%) 1 applic DAILY@2000 TOPIC 12/02/18 22:30 01/01/19 22:29 12/02/18 22:33 Dextrose 1,000 ml @ 100 mls/hr Q10H IV 11/28/18 00:00 12/28/18 00:00 12/03/18 09:01 Dextrose (Dextrose 50%) 25 ml Q30M PRN IV Hypoglycemia 11/18/18 07:45 12/18/18 07:44 Dextrose (Dextrose 50%) 50 ml Q30M PRN IV Hypoglycemia 11/18/18 07:45 12/18/18 07:44 Heparin Sodium (Porcine) (Heparin 5000 units/ml) 5,000 units EVERY 12 HOURS SUBQ 11/18/18 09:00 12/18/18 08:59 12/03/18 08:58 Insulin Aspart (NovoLOG) EVERY 4 HOURS SUBQ 11/20/18 13:00 12/18/18 11:59 12/03/18 12:35 Insulin Detemir (Levemir) 15 units Q12HR SUBQ 11/19/18 00:00 12/19/18 00:00 12/03/18 08:59 Lansoprazole (Prevacid) 30 mg DAILY GT 11/21/18 09:00 12/21/18 08:59 12/03/18 09:00 Levetiracetam (Keppra) 1,000 mg EVERY 8 HOURS GT 11/18/18 14:00 12/18/18 13:59 12/03/18 14:16 Meropenem 1 gm/ Sodium Chloride 55 ml @ 110 mls/hr Q8H IVPB 12/03/18 10:00 12/04/18 23:59 12/03/18 09:03 Nystatin (Nystatin Cr) 1 applic EVERY 12 HOURS TOPIC 11/18/18 09:00 12/18/18 08:59 12/03/18 09:00 Polyethylene Glycol (Miralax) 17 gm DAILYPRN PRN GT Constipation 11/18/18 07:45 12/18/18 07:44 Silver Sulfadiazine (Silvadene Cream 25gm) 1 applic BEDTIME TOPIC 11/23/18 21:00 12/18/18 08:59 12/02/18 21:01 Sitagliptin Phosphate (Januvia) 50 mg DAILY GT 11/18/18 09:00 12/18/18 08:59 12/03/18 09:00 Vitamin D (Vitamin D) 1,000 intlu DAILY GT 11/18/18 09:00 12/18/18 08:59 12/03/18 09:00 Maribel Barrera M.D. Dec 03, 2018 15:48
--- NOTE | 2018-12-03 15:59 | NUR ---
*-* INSURANCE *-* PATIENT HAS BEEN REFERRED BACK TO: SERINA De Dios;[phone] F:[phone]
[2018-12-03 16:00] VITALS: BP 130/83
--- NOTE | 2018-12-03 17:01 | NUR ---
*-* DISCHARGE PLANNED *-* PATIENT IS DISCHARGE TO: [facility] T:[phone] FOR NURSE TO NURSE REPORT [facility] HAS BEEN ARRANGED FOR RISK CONTROL FIELD REPRESENTATIVE AT 730PM S/W [place] [id number]
--- NOTE | 2018-12-03 18:45 | General Progress Note ---
Assessment/Plan Assessment/Plan Assessment/Recommendations # Leukocytosis. Likely related to underlying infection versus reactive process. --> Peripheral has been reviewed --> Medications have been reviewed --> Imaging has been reviewed -->Blood cultures and urine cultures prn --> has been started on abx, empiric treatment --> wbc trend: 14-->11-->9-->12->13 # Anemia of chronic disease --> w/u has been reviewed from prior hospitalizations # Acute pancreatitis, status post cerebral hemorrhage with severe encephalopathy. # Acute on chronic respiratory failure --> ventilator dependent and fed via gastrostomy tube --> Continue with albuterol sulfate and ipratropium # Diabetes mellitus -->Humalog insulin with sliding scale every six hours # Sepsis # Gastrostomy tube dependent # Colostomy in place # Vegetative state The timing of this note does not necessarily reflect the time of the patient was seen Greatly appreciate consultation! Subjective ROS Limited/Unobtainable: Yes Allergies: Coded Allergies: AZTREONAM (Verified Allergy, Unknown, 05/13/18) Subjective 2/: Pt is seen in the room,on vent, G tube, leukocytosis has been improving and his fevers have resolved. 2/3: on vent, resting in bed, wbc trending up, no fevers or chills, 24: The patient has low-grade fever with tachycardia, CXR reveals small left pleural effusion. 2: no events, labs reviewed, h/h appers stable at this time, imaging reviewed 2: on vent, resting, wbc trending up, no overnight events reported. 2: wbc trending up, 19 today, The patient remained febrile and tachycardic, but hemodynamically stable. 2: wbc trending down, remains afebrile, no acute distress reported 12/02: seen by bedside, no events, labs reviewed, h/h appers stable at this time , imaging reviewed 12/03 pt is resting in the bed, obtunded, vent dependent, no acute events Objective Last 24 Hour Vital Signs Date Time Temp Pulse Resp B/P (MAP) Pulse Ox O2 Delivery O2 Flow Rate FiO2 12/03/18 16:30 105 17 40 12/03/18 16:00 98.1 104 18 130/83 (99) 100 12/03/18 16:00 104 12/03/18 16:00 40 12/03/18 16:00 Mechanical Ventilator 12/03/18 15:02 104 20 40 12/03/18 14:00 106 12/03/18 13:02 101 18 40 12/03/18 12:00 97.5 104 17 97/77 (84) 100 12/03/18 12:00 40 12/03/18 12:00 Mechanical Ventilator 12/03/18 10:50 99 20 40 12/03/18 09:10 105 19 40 12/03/18 08:00 103 12/03/18 08:00 Mechanical Ventilator 12/03/18 08:00 98.4 99 17 114/77 (89) 100 12/03/18 08:00 40 12/03/18 06:40 103 16 40 12/03/18 05:08 102 17 40 12/03/18 04:00 Mechanical Ventilator 12/03/18 04:00 99.5 103 17 120/81 (94) 100 12/03/18 04:00 96 12/03/18 04:00 40 12/03/18 03:01 97 17 40 12/03/18 01:28 99 16 40 12/03/18 00:00 104 12/03/18 00:00 Mechanical Ventilator 12/03/18 00:00 99.0 103 17 125/69 (87) 100 12/02/18 22:57 104 19 40 12/02/18 22:15 104 19 Mechanical Ventilator 40 12/02/18 21:10 101 22 40 12/02/18 20:00 99.2 102 17 112/79 (90) 100 12/02/18 20:00 Mechanical Ventilator 12/02/18 20:00 100 12/02/18 20:00 40 12/02/18 19:16 101 17 40 Intake and Output 12/02/18 12/03/18 19:00 07:00 Intake Total 1785 ml 1671 ml Output Total 400 ml 1350 ml Balance 1385 ml 321 ml Free Water 150 ml IV Total 1155 ml 1191 ml Tube Feeding 480 ml 480 ml Output Urine Total 250 ml 1050 ml Stool Total 150 ml 300 ml # Voids 2 Laboratory Tests 12/03/18 04:00: White Blood Count 12.2H, Red Blood Count 3.53L, Hemoglobin 10.7L, Hematocrit 32.2L, Mean Corpuscular Volume 91, Mean Corpuscular Hemoglobin 30.2, Mean Corpuscular Hemoglobin Concent 33.1, Red Cell Distribution Width 16.9H, Platelet Count 242, Mean Platelet Volume 11.2H, Neutrophils (%) (Auto) 64.0, Lymphocytes (%) (Auto) 21.7, Monocytes (%) (Auto) 3.6, Eosinophils (%) (Auto) 9.7H, Basophils (%) (Auto) 1.0, Sodium Level 133L, Potassium Level 3.5, Chloride Level 99, Carbon Dioxide Level 20L, Anion Gap 14, Blood Urea Nitrogen 13, Creatinine 1.0, Estimat Glomerular Filtration Rate > 60, Glucose Level 179H , Calcium Level 8.9, Total Bilirubin 0.4, Aspartate Amino Transf (AST/SGOT) 43H , Alanine Aminotransferase (ALT/SGPT) 47, Alkaline Phosphatase 138H, Total Protein 7.8, Albumin 2.5L, Globulin 5.3 Height (Feet): 5 Height (Inches): 7.00 Weight (Pounds): 197 Objective PHYSICAL EXAMINATION General Appearance: on vent HEENT: normocephalic, atraumatic Neck: non-tender, normal alignment Respiratory/Chest: ++ VENT/trach Cardiovascular/Chest: normal peripheral pulses, normal rate Abdomen: normal bowel sounds ++ peg Extremities: poorl range of motion Jimmy Fleming MD Dec 03, 2018 18:45
--- NOTE | 2018-12-03 19:11 | NUR ---
NURSE NOTES: pt discharge to [facility], report given to JADE BREEN.
--- NOTE | 2018-12-03 19:13 | NUR ---
HAND-OFF: Report given to MARVIN BREEN.
--- NOTE | 2018-12-03 19:20 | NUR ---
NURSE NOTES: Given report from JAMSHID Falk. Received Pt is resting on the bed and obtunded. Trach to Vent dependent setting with Ac: 16, T; 600, P:5, and FiO2 40% and SaO2 100%. BT : 99.2F noted. Provided cooling measure. Given tracheal and oral suction. Provided oral care. Applied cooling measure. On G-tube feeding with Glucerna 1.5 @ 40cc/hr. No residual noted. Maile cath out and applied new condom cath. Dressing is clean and dry on wound area. Changed position. On colostomy bag and yellowish liquid stool noted. Rt. upper arm mid line area dressing is intact and patent. Placed fall and seizure precaution. Pt will discharge today and awaiting ambulance. Will continue to care plan.
[2018-12-03 20:00] VITALS: BP 120/67
[2018-12-03] MEDS: Dyna-Hex 2% Top Sol 2oz TOPIC SCH (20:10)
--- NOTE | 2018-12-03 20:10 | NUR ---
NURSE NOTES: Pt discharged to [facility] with RT and ambulance staff. Given report to Sven. Pt is awake and obtunded. No sign of acute distress noted. V/S stable and no fever. Removed Tele monitor. No belonging noted.
--- NOTE | 2018-12-03 20:55 | NUR ---
CASE MANAGEMENT: REVIEW SI: SEPSIS T 98.2 HR 106 RR 20 BP 130/83 SAT 100% MECH VENT FIO2 40 WBC 12.2 H/H 10.7/32.2 NA 133 IS: MEROPENEM IV Q8HR D5W IVF @ 100ML/HR KEPPRA GT Q8HR BACLOFEN GT Q8HR STEP DOWN UNIT STATUS DCP: PATIENT IS FROM [facility]
--- NOTE | 2018-12-04 14:21 | Discharge Summary ---
Discharge Summary Discharge Summary _ DATE OF ADMISSION: 11/17/2018 DATE OF DISCHARGE: 12/03/2018 DISCHARGED BY: Dr. Bhat REASON FOR ADMISSION: 83 years old male with past medical history of intracerebral hemorrhage, chronic respiratory failure ventilator dependent with tracheostomy status, dysphagia, G-tube, colostomy status, COPD, seizure disorder, BPH, nephrolithiasis,recurrent urinary and respiratory infection with sepsis, was sent from the shelter [facility] for evaluation due to fever, tachycardia and moderate hypotension. Upon evaluation in emergency department patient was found to be febrile 101.7, tachycardic 124. Blood pressure improved . Laboratory workup revealed evidence of significant leukocytosis WBC 17.9 , stable hemoglobin and hematocrit. Lactic acid 1.2. Stable electrolytes. BUN 36, creatinine 1.8. Glucose 434. Troponin negative. Pro BNP 257. EKG reveals sinus tachycardia no acute ischemic changes Stable LFT. Elevated lipase- 502. Albumin 2.8. Chest x-ray revealed right lower lobe atelectasis and left pleural effusion versus left pleural thickening. Patient was admitted for further management. CONSULTANTS: pulmonary Dr. Goetz ID specialist Dr. Manriquez senior program planner/oncologist Dr. Fleming HOSPITAL COURSE: Patient admitted to [facility]. Ventilator support and tracheostomy care provided. Patient started on empiric antibiotic as per ID specialist recommendation. Initial urine culture revealed Pseudomonas aeruginosa and repeated urine culture revealed Pseudomonas aeruginosa, Enterobacter and Camelia. Blood cultures were negative. Rapid influenza screen test was negative. Patient had persistent leukocytosis but with trend down. Fevers resolved. ID specialist recommended to complete additional day of meropenem at the facility and then discontinue antibiotics and monitor patient clinically off antibiotics for fever and leukocytosis. Shaker Out followed. Patient was followed up with CXR. No signs of respiratory distress on current ventilator settings. Meticulous pulmonary toilet provided with handheld nebulizer along with suctioning as needed. CT of the abdomen and pelvis revealed findings suspicious for acute pancreatitis along with evidence of multiply renal stones, including 3 mm distal right ureteral calculus at the uretero-vesicular junction with minimal resulting hydronephrosis, bilateral intrarenal calculi, somewhat atrophic left kidney containing a large staghorn calculus and multiple right intrarenal stones as seen before. Patient was initially kept n.p.o. for acute pancreatitis and started on the IV fluids. Lipase in two days trended down to normal -277. Patient slowly started on tube feeding with strict aspiration / reflux precautions. DVT and GI prophylaxis provided. Sdc Teacher recommendation regarding G-tube formula, goal rate and protein supplements implemented in plan of care. Blood sugar was managed with Starlix, long-acting Levemir and sliding scale of short acting insulin as needed. Hemoglobin A1c 7.8. Patient will need further optimization of anti-glycemic regimen as outpatient to bring hemoglobin A1c under goal. Renal electrolyte and electrolytes were closely monitored. Electrolytes corrected as needed. Nephrotoxins were avoided. With IV hydration BUN from 26 down to 13 and creatinine from initial 1.8 down to 1.0. Acute kidney injury resolved, was likely due to combination of dehydration and infections process. along with likely contributing nephrolithiasis. Seizure precaution maintained. Keppra continued. No evidence of seizure activity while in the hospital. Pain management was addressed as needed. Bowel regimen instituted. Hemoglobin and hematocrit were closely monitored with goal to keep hemoglobin above 7. Lab Coordinator followed. Anemia workup was reviewed from previous admission and was consistent with anemia of chronic disease. No need for transfusion. Upon discharge hemoglobin 10.7, hematocrit 32.2. Patient symptomatically improved and was ready for discharge. customer sales service manager had a challenging time with placing the patient. Finally placement was found at the shelter facility under snf care. Patient was subsequently transferred to the facility via ambulance for further management. FINAL DIAGNOSES: Sepsis , likely due to complicated UTI Complicated urinary tract infection Acute on chronic respiratory failure Ventilator dependent respiratory failure with tracheostomy Acute kidney injury- resolved Dysphagia , gastrostomy tube feeding Diabetes mellitus Acute pancreatitis Anemia of chronic disease History of intracranial hemorrhage COPD Diabetes mellitus BPH Colostomy care Vegetative state DISCHARGE MEDICATIONS: See Medication Reconciliation list. DISCHARGE INSTRUCTIONS: [facility]. I have been assigned to dictate discharge summary for this account. I was not involved in the patient's management. Radha Kaufman NP Dec 04, 2018 14:21
--- NOTE | 2018-12-04 15:42 | NUR ---
*-* INSURANCE *-* Updated clinicals, Review and DC Sum faxed to: [employer] LACEY:MINERVA P:[phone] F:[phone]
== END 2018-12-03 21:29 | DRG 870 ==
LOC: EDBD 21:53 → EMR 21:59 → 2W 22:22 → EDBEDREQ 22:48
PROC: 5A1955Z Respiratory Ventilation, Greater than 96 Consecutive Hours (ICD-10-PCS; principal; 2018-11-17)
PROC: 06HM33Z Insertion of Infusion Device into Right Femoral Vein, Percutaneous Approach (ICD-10-PCS; principal; 2018-11-17)
PROC: 05H933Z Insertion of Infusion Device into Right Brachial Vein, Percutaneous Approach (ICD-10-PCS; 2018-11-22)
PROC: B54MZZA Ultrasonography of Right Upper Extremity Veins, Guidance (ICD-10-PCS; 2018-11-22)
DX: A41.9 Sepsis, unspecified organism (principal); K85.90 Acute pancreatitis without necrosis or infection, unspecified; J96.20 Acute and chronic respiratory failure, unspecified whether with hypoxia or hypercapnia; Z99.11 Dependence on respirator [ventilator] status; G93.40 Encephalopathy, unspecified; N39.0 Urinary tract infection, site not specified; R40.3 Persistent vegetative state; Z93.0 Tracheostomy status; Z93.1 Gastrostomy status; Z93.3 Colostomy status; R33.9 Retention of urine, unspecified; D11.9 Benign neoplasm of major salivary gland, unspecified; I10 Essential (primary) hypertension; Z86.73 Personal history of transient ischemic attack (TIA), and cerebral infarction without residual deficits; G40.909 Epilepsy, unspecified, not intractable, without status epilepticus; J44.9 Chronic obstructive pulmonary disease, unspecified; R13.10 Dysphagia, unspecified; D64.9 Anemia, unspecified
CPT/HCPCS: 36415; 36569; 71045; 74176; 76937; 80048; 80053; 80076; 80202; 81001; 82150; 82550; 82553; 82962; 83036; 83605; 83690; 83735; 83880; 84100; 84165; 84484; 85007; 85025; 85651; 86710; 87040; 87081; 87086; 87181; 93005; 94002; 94003; 94664; 96365; 96368; 99291; J1815; S5561

== ENCOUNTER 2019-09-14 08:34 | Inpatient (IN) | payer BC, OTHER ==
[2019-09-14] VITALS (17 sets, daily range): BP systolic 113–161; BP diastolic 75–104
[~2019-09-14] VITALS: Ht 170.2 cm; Wt 87.7 kg
[~2019-09-14 08:34] MED LIST changes: +ARTIFICIAL TEA1 EAC3 OP; +FENOFIBRATE43 MG GT; +HEPARIN SO5000 UNIT2 SUBQ; +HUMALOG100 UNIT/4 SUBQ; +JANUVIA50 MG GT; +KEPPRA500 M3 ORAL; +MIRALAX17 G2 ORAL; -PERIDEX15 ML MM; +PERIDEX15 ML PO; +SILVADENE20 GM TP; +ZOFRAN4 M3 ORAL; +ZOSYN 3.373.375 GM/1 IVPB
[2019-09-14] MEDS ORDERED: Sodium Chloride 2,200 ML IVLG ONE (08:45)
[2019-09-14] MEDS ORDERED: Vancomycin 1 GM in NS 275 ML IV ONE (08:45)
[2019-09-14] MEDS ORDERED: Cefepime HCl 2 GM in NS 110 ML IV SCH (08:45)
[2019-09-14] MEDS ORDERED: LEVETIRACE100 MG/1 M GT (08:48)
[2019-09-14] MEDS ORDERED: LANSOPRAZOLE30 MG GT (08:48)
[2019-09-14] MEDS ORDERED: NOVOLIN 70100 UNIT/2 SQ (08:48)
[2019-09-14] MEDS ORDERED: HUMULIN R100 UNIT/1 SUBQ (08:48)
[2019-09-14] MEDS ORDERED: SODIUM POL15 GM/60 M GT (08:48)
[2019-09-14] MEDS ORDERED: CRANBERRY425 MG GT (08:48)
[2019-09-14] MEDS ORDERED: CLOBETASOL EMOL15 GM TP (08:48)
[2019-09-14] MEDS ORDERED: MIRALAX17 G2 GT (08:48)
[2019-09-14 09:04] LABS: HEMOGLOBIN 12.4 G/DL (14.2-18.0); MEAN CORPUSCULAR VOLUME 99 FL (80-99); PLATELET COUNT 306 K/UL (150-450); RED BLOOD COUNT 4.04 M/UL (4.70-6.10); RED CELL DISTRIBUTION WIDTH 17.8 % (11.6-14.8)
[2019-09-14 09:06] LABS: WHITE BLOOD COUNT 24.7 K/UL (4.8-10.8)
[2019-09-14] MEDS ORDERED: Acetaminophen 650 MG SUPP RECTAL ONE (09:30)
[2019-09-14 10:03] LABS: ALANINE AMINOTRANSFERASE 35 U/L (12-78); ALBUMIN 3.4 G/DL (3.4-5.0); ALBUMIN/GLOBULIN RATIO 0.5 (1.0-2.7); ALKALINE PHOSPHATASE 63 U/L (46-116); ANION GAP 16 mmol/L (5-15); ASPARTATE AMINO TRANSFERASE 90 U/L (15-37); BILIRUBIN,TOTAL 0.6 MG/DL (0.2-1.0); BLOOD UREA NITROGEN 43 mg/dL (7-18); CARBON DIOXIDE 23 MMOL/L (21-32); CHLORIDE 110 MMOL/L (98-107); CKMB < 0.5 NG/ML (0.0-3.6); CREATINE KINASE 222 U/L (26-308); CREATININE 1.7 MG/DL (0.55-1.30); PHOSPHORUS 2.8 MG/DL (2.5-4.9); SODIUM 149 MMOL/L (136-145)
--- NOTE | 2019-09-14 10:05 | Diagnostic Imaging Report ---
EXAM: XR Chest, 1 View CLINICAL HISTORY: Tachypnea TECHNIQUE: Frontal view of the chest. COMPARISON: Chest x-rays dated 12/03/18. FINDINGS: Lungs: Geographic density overlying the right upper lung. Pulmonary vascular congestion. Subsegmental atelectasis versus infiltrate in the left lung base. Pleural space: Small left pleural effusion. Heart: Unremarkable. No cardiomegaly. Mediastinum: Unremarkable. Bones/joints: Unremarkable. Tubes, lines and devices: Tracheostomy tube with expected positioning. Telemetry leads overlie the thorax. IMPRESSION: 1. Geographic density overlying the right upper lung. This likely represents overlying soft tissue although cannot exclude an underlying consolidation/pneumonia. 2. Pulmonary vascular congestion. 3. Small left pleural effusion. 4. Subsegmental atelectasis versus infiltrate in the left lung base.
[2019-09-14 10:06] LABS: POTASSIUM 6.7 MMOL/L (3.5-5.1)
--- NOTE | 2019-09-14 10:32 | Emergency Room Report ---
History of Present Illness General Chief Complaint: General Complaint Source: Medical Record, EMS Present Illness HPI This patient presents from a senior living facility. At baseline he is ventilator dependent with tracheostomy. He has a history of respiratory failure in a persistent vegetative state. He is brought in by EMS because the nursing facility noted that his heart rate was elevated. The patient himself is agitated and is unable to give any kind of history. There was no report of any other symptoms. Allergies: Coded Allergies: AZTREONAM (Verified Allergy, Unknown, 05/13/18) Patient History Past Medical History: see triage record, old chart reviewed, DM, HTN, seizures , renal disease Past Surgical History: other - Trach, PEG, Colostomy Social History: Denies: smoking, alcohol use, drug use Reviewed Nursing Documentation: PMH: Agreed; PSxH: Agreed Nursing Documentation-PMH Hx Hypertension: Yes Hx COPD: Yes Hx Diabetes: Yes Hx Cancer: No Hx Gastrointestinal Problems: Yes Hx Neurological Problems: Yes Hx Seizures: Yes Review of Systems All Other Systems: limited Physical Exam Vital Signs Date Time Temp Pulse Resp B/P (MAP) Pulse Ox O2 Delivery O2 Flow Rate FiO2 09/14/19 08:30 102.9 153 20 164/99 (120) 96 Ambu-Bag 09/14/19 08:45 96 09/14/19 08:45 60.0 Sp02 EP Interpretation: reviewed, normal General Appearance: no apparent distress, other, Chronically Ill Head: normocephalic, atraumatic ENT: no angioedema Neck: full range of motion, supple/symm/no masses, tracheotomy - Trach in place Respiratory: no respiratory distress, rhonchi, other - On ventilator Cardiovascular #1: bradycardia Gastrointestinal: normal bowel sounds, soft, non-distended, other - Colostomy bag in place with stool Rectal: deferred Musculoskeletal: other - At baseline Neurologic: other - Vegatative state at baseline Psychiatric: other - vegatative state at baseline Skin: Decubitus/Ulcer - See RN skin exam, other - anasarca. Medical Decision Making Diagnostic Impression: Primary Impression: Sepsis Additional Impressions: Tachycardia Fever Hyperglycemia Acute on chronic renal insufficiency ER Course This patient presents with sepsis. I am unsure of the etiology. Possibly a urinary source, however, urine was unable to be obtained secondary to urethral strictures and a catheter was unable to be passed. Patient could be bacteremic with a pulmonary source also, although, there was no evidence of pneumonia on chest x-ray. Regardless, the patient was given broad-spectrum antibiotics and aggressive IV fluid resuscitation. The patient was also hyperglycemic, which I suspect is secondary to the infection. Patient's white blood cell count is 24, 000. The patient is admitted to the ICU for further evaluation and treatment. This patient is critically ill. This patient required complex medical decision- making, aggressive intervention, extensive laboratory workup and monitoring. Critical care time: 40 minutes. Laboratory Tests Test 09/14/19 08:40 09/14/19 09:40 09/14/19 10:40 White Blood Count 24.7 K/UL (4.8-10.8) *H Red Blood Count 4.04 M/UL (4.70-6.10) L Hemoglobin 12.4 G/DL (14.2-18.0) L Hematocrit 40.0 % (42.0-52.0) L Mean Corpuscular Volume 99 FL (80-99) Mean Corpuscular Hemoglobin 30.6 PG (27.0-31.0) Mean Corpuscular Hemoglobin Concent 30.9 G/DL (32.0-36.0) L Red Cell Distribution Width 17.8 % (11.6-14.8) H Platelet Count 306 K/UL (150-450) Mean Platelet Volume 8.7 FL (6.5-10.1) Neutrophils (%) (Auto) % (45.0-75.0) Lymphocytes (%) (Auto) % (20.0-45.0) Monocytes (%) (Auto) % (1.0-10.0) Eosinophils (%) (Auto) % (0.0-3.0) Basophils (%) (Auto) % (0.0-2.0) Differential Total Cells Counted 100 Neutrophils % (Manual) 70 % (45-75) Lymphocytes % (Manual) 16 % (20-45) L Monocytes % (Manual) 4 % (1-10) Eosinophils % (Manual) 10 % (0-3) H Basophils % (Manual) 0 % (0-2) Band Neutrophils 0 % (0-8) Platelet Estimate Adequate Platelet Morphology Normal Hypochromasia 1+ Anisocytosis 1+ Sodium Level 149 MMOL/L (136-145) H 149 MMOL/L (136-145) H Potassium Level 6.7 MMOL/L (3.5-5.1) *H 4.4 MMOL/L (3.5-5.1) Chloride Level 110 MMOL/L (98-107) H 118 MMOL/L (98-107) H Carbon Dioxide Level 23 MMOL/L (21-32) 20 MMOL/L (21-32) L Anion Gap 16 mmol/L (5-15) H 11 mmol/L (5-15) Blood Urea Nitrogen 43 mg/dL (7-18) H 42 mg/dL (7-18) H Creatinine 1.7 MG/DL (0.55-1.30) H 1.8 MG/DL (0.55-1.30) H Estimate Glomerular Filtration Rate 51.5 mL/min (>60) 48.2 mL/min (>60) Glucose Level 484 MG/DL (74-106) H 409 MG/DL (74-106) H Calcium Level 12.0 MG/DL (8.5-10.1) H 10.4 MG/DL (8.5-10.1) H Phosphorus Level 2.8 MG/DL (2.5-4.9) Magnesium Level 2.7 MG/DL (1.8-2.4) H Total Bilirubin 0.6 MG/DL (0.2-1.0) 0.5 MG/DL (0.2-1.0) Aspartate Amino Transferase (AST) 90 U/L (15-37) H 40 U/L (15-37) H Alanine Aminotransferase (ALT) 35 U/L (12-78) 29 U/L (12-78) Alkaline Phosphatase 63 U/L (46-116) 44 U/L (46-116) L Total Creatine Kinase 222 U/L (26-308) Creatine Kinase MB < 0.5 NG/ML (0.0-3.6) Creatine Kinase MB Relative Index 0.2 Troponin I 0.003 ng/mL (0.000-0.056) Total Protein 10.2 G/DL (6.4-8.2) H 7.8 G/DL (6.4-8.2) Albumin 3.4 G/DL (3.4-5.0) 2.8 G/DL (3.4-5.0) L Globulin 6.8 g/dL 5.0 g/dL Albumin/Globulin Ratio 0.5 (1.0-2.7) L 0.6 (1.0-2.7) L Lactic Acid Level 1.10 mmol/L (0.4-2.0) Microbiology Date/Time Source Procedure Growth Status 09/14/19 09:40 Nasal Nares - Final Complete 09/14/19 09:40 Nasal Nares - Final Complete EKG Diagnostic Results Rate: tachycardiac Rhythm: other - S.tachycardia ST Segments: other - NSST Rhythm Strip Diag. Results EP Interpretation: yes Rate: 130's Rhythm: other - S.tachycardia Chest X-Ray Diagnostic Results Chest X-Ray Diagnostic Results : Chest X-Ray Ordered: Yes # of Views/Limited/Complete: 1 View Indication: Other EP Interpretation: Yes Interpretation: no consolidation, no effusion, no pneumothorax, no acute cardiopulmonary disease Impression: No acute disease Electronically Signed by: Claire Lewis DO Last Vital Signs Date Time Temp Pulse Resp B/P (MAP) Pulse Ox O2 Delivery O2 Flow Rate FiO2 09/14/19 10:15 149 17 127/87 99 Mechanical Ventilator 09/14/19 09:12 60.0 30 09/14/19 08:45 102.9 Disposition: ADMITTED INPATIENT Condition: Critical Referrals: Sariah Bhat MD (PCP) Claire Lewis DO Sep 14, 2019 10:32
[2019-09-14 11:15] LABS: ANION GAP 11 mmol/L (5-15); BLOOD UREA NITROGEN 42 mg/dL (7-18); CALCIUM 10.4 MG/DL (8.5-10.1); CARBON DIOXIDE 20 MMOL/L (21-32); CHLORIDE 118 MMOL/L (98-107); CREATININE 1.8 MG/DL (0.55-1.30); POTASSIUM 4.4 MMOL/L (3.5-5.1); SODIUM 149 MMOL/L (136-145)
[2019-09-14 11:19] LABS: ALANINE AMINOTRANSFERASE 29 U/L (12-78); ALBUMIN 2.8 G/DL (3.4-5.0); ALBUMIN/GLOBULIN RATIO 0.6 (1.0-2.7); ALKALINE PHOSPHATASE 44 U/L (46-116); ASPARTATE AMINO TRANSFERASE 40 U/L (15-37); BILIRUBIN,TOTAL 0.5 MG/DL (0.2-1.0)
[2019-09-14] MEDS ORDERED: Acetaminophen 650mg/20.3ml GT PRN (14:45)
[2019-09-14] MEDS ORDERED: Miralax 17gm pkt ORAL PRN ×2 (14:45→16:00)
[2019-09-14] MEDS ORDERED: Albuterol/Ipratropium 3ml neb HHN PRN ×2 (14:45→16:00)
[2019-09-14] MEDS ORDERED: Morphine Sulfate 4mg/ml Inj (IV USE ONLY) IVP PRN (16:00)
[2019-09-14] MEDS ORDERED: LORazepam Inj 2mg/ml 1ml IV PRN (16:00)
[2019-09-14] MEDS ORDERED: Miralax 17gm pkt GT PRN (16:00)
[2019-09-14] MEDS ORDERED: NovoLOG Insulin Flexpen SUBQ SCH ×2 (16:30→16:50)
[2019-09-14] MEDS: NovoLOG Insulin Flexpen SUBQ SCH ×2 (16:55→21:09)
[2019-09-14] MEDS ORDERED: Vancomycin 500mg/D5W 100ml IVPB SCH ×2 (17:00)
[2019-09-14 17:19] LABS: APPEARANCE,URINE CLOUDY; BILIRUBIN, URINE NEGATIVE (NEGATIVE); GLUCOSE, URINE (UA) 4+ (NEGATIVE); KETONES,URINE 1+ (NEGATIVE); LEUKOCYTE ESTERASE ,URINE 3+ (NEGATIVE); NITRITE,URINE NEGATIVE (NEGATIVE); PH,URINE 5 (4.5-8.0); PROTEIN,URINE 4+ (NEGATIVE); UROBILINOGEN,URINE NORMAL MG/DL (0.0-1.0)
[2019-09-14 17:21] LABS: COLOR,URINE YELLOW
[2019-09-14] MEDS: Tums 500mg GT SCH (17:39)
[2019-09-14] MEDS ORDERED: Heparin 5000 units/ml inj SUBQ SCH (21:00)
[2019-09-14] MEDS: Clobetasol Cream 0.05% 15gm TOPIC SCH (21:01)
[2019-09-14] MEDS: Meropenem 1 GM in NS 55 ML IVPB SCH (21:03)
[2019-09-14] MEDS: Heparin 5000 units/ml inj SUBQ SCH (21:05)
[2019-09-14] MEDS: levETIRAcetam 1,000mg/NS100ml 100 ML IVPB SCH (21:34)
--- NOTE | 2019-09-14 22:45 | Consultation ---
DATE OF CONSULTATION: 09/14/2019 CARDIOLOGY CONSULTATION CONSULTING PHYSICIAN: Kali Melgar M.D. REFERRING PHYSICIAN: Sariah Bhat M.D. REASON FOR CONSULTATION: Tachycardia. HISTORY OF PRESENT ILLNESS: This is a debilitated male, who is ventilator dependent and has a trach and is in a persistent vegetative state due to prior head trauma who was brought into the emergency room from the [facility] facility because of rapid heart rate. The patient is unable to give any historical data. PAST MEDICAL HISTORY: From records includes colostomy, tracheostomy, gastrostomy tube, type 2 diabetes mellitus, hypertension, seizure disorder, chronic kidney disease. SOCIAL HISTORY: No record regarding smoking, alcohol, or substance abuse. MEDICATIONS: Reviewed. ALLERGIES: Aztreonam. FAMILY HISTORY: Not known. REVIEW OF SYSTEMS: Not obtainable. PHYSICAL EXAMINATION: VITAL SIGNS: Temperature 102.9, blood pressure 164/99, heart rate 153, respirations 20. He is on a ventilator via trach. GENERAL: Noncommunicative. Tongue fasciculation. Moderate edema. LUNGS: Diminished breath sounds. CARDIAC: Regular rhythm. Rapid rate. Normal S1, S2. ABDOMEN: Soft with G-tube and colostomy bag. DIAGNOSTIC DATA: EKG with sinus tachycardia, nonspecific ST change. LABORATORY DATA: White count 24.7, hemoglobin 12.3. Urinalysis with too numerous to count white cells. Initial potassium 6.7, repeated 4.4, sodium 149, chloride 118, bicarb 20, BUN 42, creatinine 1.8. Lactic acid 1.1. Calcium 10.4. Albumin 2.8. Troponin negative. IMPRESSION: 1. Urinary tract infection. 2. Sepsis. 3. Secondary sinus tachycardia. 4. Dehydration. 5. . 6. Hypovolemia. 7. Acute on chronic kidney injury. 8. Seizure disorder. 9. Advanced encephalopathy due to head trauma. 10. Ventilator-dependent respiratory failure. PLAN: 1. Panculture. 2. Empiric antimicrobials. 3. Hypotonic IV fluids. 4. Check EEG. 5. Continue antiseizure therapy. 6. Monitor electrolytes. 7. DVT and stress ulcer prophylaxis. 8. Venous duplex scan. 9. No role for antiarrhythmics at this time. Kali Melgar M.D. DR: UGO JOB#: [id number] CC:
[2019-09-15] VITALS (23 sets, daily range): BP systolic 101–148; BP diastolic 70–86
--- NOTE | 2019-09-15 03:31 | History and Physical Report ---
DATE OF ADMISSION: 09/14/2019 This is one of several admissions to [facility] of this 54-year-old patient because of sepsis. HISTORY OF PRESENT ILLNESS: The patient is a resident of an extended care facility subacute unit. He has been in stable condition over the last several months. He is known to have several chronic medical symptoms, but has been stable on current medication. Several days ago, he developed fever, tachycardia and leukocytosis started in the subacute unit. The patient has pyuria 25 to 50 and the patient was placed on piperacillin and tazobactam 3.375 grams intravenous piggyback q.6 hours, however, the results were poor, the patient has been febrile, tachycardia, and fever increased to 101.8 and heart rate increased to 160. He was transferred to [facility] ER where he was found to have sepsis and urosepsis and the patient was admitted. PAST MEDICAL HISTORY: More than 2 years ago, the patient had intracerebral hemorrhage. He underwent craniotomy and had HEAD HOST/HOSTESS shunt inserted. At the same time, he had respiratory failure, and he had to be intubated and placed on mechanical ventilation. He was unable to be weaned. He underwent tracheostomy and gastrostomy and transferred to subacute unit. Over the last year, he had had multiple urinary tract infections. On admission to subacute unit, he had bilateral removed. The patient was stable for several months, however, in the last few months he has frequent sepsis associated with pyuria. ALLERGIES: The patient has allergy to aztreonam. MEDICATIONS: The patient is on fenofibrate 125 milligrams daily, pantoprazole 40 milligrams daily. He was on vildagliptin, but now he is on sitagliptin 60 mg daily, levetiracetam 1000 milligram q.8 h, Artificial Tears 2 times daily. He is on heparin 5000 units subcutaneously q.12 hours. He is on clobetasol cream for atopic dermatitis 10 milligrams b.i.d. mg b.i.d. He is currently on vancomycin and amikacin. He is on sliding scale aspart insulin of moderate intensity, ondansetron 4 milligrams daily, lorazepam 2 milligrams q.12 hours. He is on multiple medications for motility disorder. He is on albuterol sulfate, ipratropium bromide, inhalation therapy every six hours. FAMILY HISTORY: Noncontributory. SOCIAL HISTORY: Single. Born in [place]. since the intracerebral hemorrhage. HABITS: The patient does not smoke, drink, or use illicit drugs. REVIEW OF SYSTEMS: The patient is unable to give any information regarding his state of health. PHYSICAL EXAMINATION: VITAL SIGNS: Blood pressure is 145/94, his pulse is 144, respirations of 20, and temperature is 99.7. HEENT: Eyes were normal. Pupils were round, equal, and reactive to light. Sclerae were white. Conjunctivae were pink. Extraocular movement could not be assessed. Temporal arteries were palpable bilaterally. There was no bilateral temporal wasting. Visual altamirano to confrontation. Neglect sign could not be assessed. ENT, mucous membranes were not dehydrated. Auditory canals were clear and tympanic membranes could not be visualized. Nasal cavity was not congested. Nasal septum was intact. Soft palate . Uvula could not be visualized. Tongue was moist, midline, and normally papillated. Tongue is constantly protruded out of the lips. . NECK: Supple. No goiter. No mass. No lymphadenopathy. There was no JVD, no bruits. Carotid upstroke was 2+. LUNGS: Clear. HEART: PMI was fifth left intercostal space in midclavicular line. There was normal S1 and normal S2. There was no murmur. No arrhythmia. No S3. No S4. No pericardial rub. There is tachycardia at rest. Sinus tachycardia on monitor. ABDOMEN: Soft and nontender with normal bowel sounds. Gastrostomy site is clean. There was no guarding. No rebound tenderness. No ascites. No hernia. No CVA tenderness. Liver span was 8 cm, mostly nontender. EXTREMITIES: No cyanosis, no clubbing, and no edema. Extremities were warm. NEUROLOGICAL EXAMINATION: Reflexes in biceps, triceps, and brachioradialis were present. Patellar retinaculum were present. Plantars were in extension bilaterally. Cranial nerves II through XII were symmetric and equal. Cerebellar function, there was no tremor. No nystagmus. No extrapyramidal rigidity. Sensory exam to pinprick, cotton touch, position, and motor strength could not be assessed because of patient's coma. LABORATORY AND DIAGNOSTIC DATA: His hemoglobin is 12.4, hematocrit 40.0 with MCV of 99, WBC of 24.7, and platelets is 106. His BUN and creatinine were 43 and 1.7 respectively. His sodium is 149. Potassium was 6.7, but now 4.4. Chloride 118, CO2 is 20. His calcium is 10.4. His SGOT is normal, SGPT is 44, albumin is 2.8. Total protein 7.8. Troponin was 0.03, lactic acid is not available. IMPRESSION: The patient on vancomycin, amikacin. include Pulmonary, Infectious Disease, and Cardiology. Complete laboratory tests will be done in the a.m. It has been discussed with the treatment team. Sariah Bhat M.D. DR: Arely JOB#: [id number] CC:
[2019-09-15] MEDS: levETIRAcetam 1,000mg/NS100ml 100 ML IVPB SCH ×3 (05:47→21:19)
[2019-09-15] MEDS: NovoLOG Insulin Flexpen SUBQ SCH ×4 (05:52→21:00)
[2019-09-15] MEDS: sitaGLIPtin 50mg tab GT SCH (05:53)
[2019-09-15 06:33] LABS: HEMATOCRIT 25.6 % (42.0-52.0); HEMOGLOBIN 7.9 G/DL (14.2-18.0); MEAN CORPUSCULAR VOLUME 97 FL (80-99); PLATELET COUNT 244 K/UL (150-450); RED BLOOD COUNT 2.65 M/UL (4.70-6.10); RED CELL DISTRIBUTION WIDTH 17.5 % (11.6-14.8); WHITE BLOOD COUNT 18.2 K/UL (4.8-10.8)
[2019-09-15 07:16] LABS: ALANINE AMINOTRANSFERASE 26 U/L (12-78); ALBUMIN 2.6 G/DL (3.4-5.0); ALBUMIN/GLOBULIN RATIO 0.6 (1.0-2.7); ALKALINE PHOSPHATASE 42 U/L (46-116); ANION GAP 16 mmol/L (5-15); BILIRUBIN,TOTAL 0.4 MG/DL (0.2-1.0); BLOOD UREA NITROGEN 36 mg/dL (7-18); CALCIUM 10.7 MG/DL (8.5-10.1); CARBON DIOXIDE 20 MMOL/L (21-32); CHLORIDE 119 MMOL/L (98-107); CREATININE 1.5 MG/DL (0.55-1.30); POTASSIUM 3.5 MMOL/L (3.5-5.1); SODIUM 155 MMOL/L (136-145)
[2019-09-15 07:44] LABS: ASPARTATE AMINO TRANSFERASE 28 U/L (15-37)
[2019-09-15] MEDS: Pantoprazole Inj IV SCH (08:18)
[2019-09-15] MEDS: Tums 500mg GT SCH ×2 (08:19→17:53)
[2019-09-15] MEDS: Clobetasol Cream 0.05% 15gm TOPIC SCH ×2 (08:19→21:19)
[2019-09-15] MEDS: Heparin 5000 units/ml inj SUBQ SCH ×2 (08:21→21:21)
[2019-09-15] MEDS: Meropenem 1 GM in NS 55 ML IVPB SCH ×2 (08:33→21:19)
[2019-09-15] MEDS ORDERED: sitaGLIPtin 25mg tab GT SCH (09:00)
[2019-09-15] MEDS: Vancomycin 1.5gm/NS Premix IVPB SCH (09:11)
--- NOTE | 2019-09-15 09:54 | Pulmonolgy Critical Care Note ---
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 (7) ATN (acute tubular necrosis) Respiratory: monitor respiratory rate, adjust FIO2, CXR Cardiac: continue to monitor HR/BP Renal: F/U I&O, other - tap water through Gtube Infectious Disease: check cultures, continue antibiotics Gastrointestinal: hold feedings Endocrine: monitor blood sugar, continue sliding scale insulin Hematologic: transfuse if hgb<8.5 Neurologic: PRN Ativan, PRN Morphine, keep patient comfortable Affect: PRN ativan Prophylaxis: Heparin Notes Reviewed: cardio, renal Discussed with: nurses, consultants, mattress spring encasermanager interface - Objective Last 24 Hour Vital Signs Date Time Temp Pulse Resp B/P (MAP) Pulse Ox O2 Delivery O2 Flow Rate FiO2 09/15/19 09:08 117 17 30 09/15/19 08:00 98.6 117 17 140/81 (100) 100 09/15/19 08:00 30 09/15/19 07:30 115 18 30 09/15/19 06:00 122 20 141/83 (102) 100 09/15/19 05:00 122 20 122/76 (91) 100 09/15/19 04:48 117 17 30 09/15/19 04:00 122 20 119/76 (90) 100 09/15/19 04:00 30 09/15/19 04:00 Mechanical Ventilator 09/15/19 04:00 114 09/15/19 03:00 122 20 148/86 (106) 100 09/15/19 02:44 123 17 30 09/15/19 02:00 123 20 130/70 (90) 100 09/15/19 01:02 122 19 30 09/15/19 01:00 125 20 121/81 (94) 100 09/15/19 00:00 30 09/15/19 00:00 Mechanical Ventilator 09/15/19 00:00 125 09/15/19 00:00 98.0 125 20 114/86 (95) 100 09/14/19 23:29 125 18 30 09/14/19 23:00 125 20 126/83 (97) 100 09/14/19 22:00 126 20 126/83 (97) 100 09/14/19 21:00 126 20 132/76 (94) 100 09/14/19 20:52 127 19 30 09/14/19 20:00 114 09/14/19 20:00 98.5 131 20 138/85 (102) 100 09/14/19 20:00 Mechanical Ventilator 09/14/19 19:26 133 18 30 09/14/19 19:26 133 20 98 Mechanical Ventilator 30 09/14/19 19:00 134 20 129/75 (93) 100 09/14/19 18:07 156 21 30 09/14/19 18:00 144 20 145/94 (111) 100 09/14/19 17:35 35 09/14/19 17:29 133 21 35 09/14/19 17:00 99.7 130 18 130/91 (104) 100 09/14/19 16:00 138 09/14/19 16:00 30 09/14/19 16:00 123 20 123/85 (98) 100 09/14/19 15:09 135 19 30 09/14/19 15:00 113 18 113/89 (97) 100 09/14/19 14:13 Mechanical Ventilator 09/14/19 14:00 130 18 130/82 (98) 100 09/14/19 13:00 99.6 139 19 139/93 (108) 100 128 09/14/19 12:38 145 18 30 09/14/19 12:22 100.8 120 18 143/88 99 Mechanical Ventilator 60.0 30 09/14/19 11:23 101.4 09/14/19 11:15 140 18 153/101 93 Mechanical Ventilator 09/14/19 10:45 142 18 142/104 100 Mechanical Ventilator 09/14/19 10:36 101.4 09/14/19 10:34 141 17 30 09/14/19 10:15 149 17 127/87 99 Mechanical Ventilator Status: obtunded Condition: critical HEENT: atraumatic Heart: HR/BP stable Abdomen: soft, non-tender Extremities: no C/C/E Micro: Microbiology Date/Time Source Procedure Growth Status 09/14/19 16:45 Sputum Gram Stain - Final Resulted 09/14/19 16:45 Sputum Sputum Culture Pending Resulted 09/14/19 09:40 Nasal Nares - Final Complete 09/14/19 09:40 Nasal Nares - Final Complete 09/14/19 16:45 Urine,Clean Catch Urine Culture - Preliminary NO GROWTH Resulted Accucheck: 264 Critical Care - Subjective ROS Limited/Unobtainable: Yes FI02: 30 Vent Support Breath Rate: 16 Vent Support Mode: AC Vent Tidal Volume: 600 Sputum Amount: Small PEEP: 5.0 PIP: 31 Tube Feeding Amount: 0 I&O: Intake and Output 09/14/19 09/15/19 19:00 07:00 Intake Total 480 ml 1800 ml Output Total 550 ml 605 ml Balance -70 ml 1195 ml Intake Oral 0 ml IV Total 400 ml 1630 ml Tube Feeding 60 ml 120 ml Other 20 ml 50 ml Output Urine Total 300 ml 505 ml Stool Total 250 ml 100 ml Labs: Laboratory Tests Test 09/14/19 10:40 09/14/19 16:45 09/15/19 05:00 Sodium Level 149 MMOL/L (136-145) H 155 MMOL/L (136-145) H Potassium Level 4.4 MMOL/L (3.5-5.1) 3.5 MMOL/L (3.5-5.1) Chloride Level 118 MMOL/L (98-107) H 119 MMOL/L (98-107) H Carbon Dioxide Level 20 MMOL/L (21-32) L 20 MMOL/L (21-32) L Anion Gap 11 mmol/L (5-15) 16 mmol/L (5-15) H Blood Urea Nitrogen 42 mg/dL (7-18) H 36 mg/dL (7-18) H Creatinine 1.8 MG/DL (0.55-1.30) H 1.5 MG/DL (0.55-1.30) H Estimat Glomerular Filtration Rate 48.2 mL/min (>60) 59.5 mL/min (>60) Glucose Level 409 MG/DL (74-106) H 269 MG/DL (74-106) #H Calcium Level 10.4 MG/DL (8.5-10.1) H 10.7 MG/DL (8.5-10.1) H Total Bilirubin 0.5 MG/DL (0.2-1.0) 0.4 MG/DL (0.2-1.0) Aspartate Amino Transf (AST/SGOT) 40 U/L (15-37) H 28 U/L (15-37) Alanine Aminotransferase (ALT/SGPT) 29 U/L (12-78) 26 U/L (12-78) Alkaline Phosphatase 44 U/L (46-116) L 42 U/L (46-116) L Total Protein 7.8 G/DL (6.4-8.2) 7.3 G/DL (6.4-8.2) Albumin 2.8 G/DL (3.4-5.0) L 2.6 G/DL (3.4-5.0) L Globulin 5.0 g/dL 4.7 g/dL Albumin/Globulin Ratio 0.6 (1.0-2.7) L 0.6 (1.0-2.7) L Urine Color Yellow Urine Appearance Cloudy Urine pH 5 (4.5-8.0) Urine Specific [place] 1.015 (1.005-1.035) Urine Protein 4+ (NEGATIVE) H Urine Glucose (UA) 4+ (NEGATIVE) H Urine Ketones 1+ (NEGATIVE) H Urine Blood 3+ (NEGATIVE) H Urine Nitrite Negative (NEGATIVE) Urine Bilirubin Negative (NEGATIVE) Urine Urobilinogen Normal MG/DL (0.0-1.0) Urine Leukocyte Esterase 3+ (NEGATIVE) H Urine RBC 2-4 /HPF (0 - 0) H Urine WBC Tntc /HPF (0 - 0) H Urine Squamous Epithelial Cells None /LPF (NONE/OCC) Urine Bacteria Few /HPF (NONE) White Blood Count 18.2 K/UL (4.8-10.8) H Red Blood Count 2.65 M/UL (4.70-6.10) L Hemoglobin 7.9 G/DL (14.2-18.0) #L Hematocrit 25.6 % (42.0-52.0) #L Mean Corpuscular Volume 97 FL (80-99) Mean Corpuscular Hemoglobin 29.7 PG (27.0-31.0) Mean Corpuscular Hemoglobin Concent 30.8 G/DL (32.0-36.0) L Red Cell Distribution Width 17.5 % (11.6-14.8) H Platelet Count 244 K/UL (150-450) Mean Platelet Volume 8.6 FL (6.5-10.1) Neutrophils (%) (Auto) % (45.0-75.0) Lymphocytes (%) (Auto) % (20.0-45.0) Monocytes (%) (Auto) % (1.0-10.0) Eosinophils (%) (Auto) % (0.0-3.0) Basophils (%) (Auto) % (0.0-2.0) Differential Total Cells Counted 100 Neutrophils % (Manual) 69 % (45-75) Lymphocytes % (Manual) 14 % (20-45) L Monocytes % (Manual) 4 % (1-10) Eosinophils % (Manual) 13 % (0-3) H Basophils % (Manual) 0 % (0-2) Band Neutrophils 0 % (0-8) Platelet Estimate Adequate Platelet Morphology Normal Polychromasia 1+ Hypochromasia 1+ Anisocytosis 1+ Troponin I 0.009 ng/mL (0.000-0.056) Pro-B-Type Natriuretic Peptide 158 pg/mL (0-125) H Thyroid Stimulating Hormone (TSH) 1.641 uiU/mL (0.358-3.740) Random Vancomycin Level 15.1 ug/mL Nico Goetz MD Sep 15, 2019 09:54
--- NOTE | 2019-09-15 11:04 | Consultation ---
History of Present Illness General Date patient seen: Sep 15, 2019 Chief Complaint: General Complaint Present Illness HPI 54 y/o M with hx of Dm2, HTN, seizure disorder, COPD, CKD, chronic resp failure s/p trac/vent dependent, ICH s/p craniotomy and TRIM OPERATOR shunt now w/ persistent vegetative state, BPH, dysphagia s/p GT, s/p colostomy, recurrent UTIs, SNF resident presented to ED on 09/14 with tachycardia, fever and leukocytosis at [place]. Last admitted here on 11/2018 with sepsis 2ry to Pseudomonas and enterobacter UTI and treated with 7 days of Meropenem. Allergies: Coded Allergies: AZTREONAM (Verified Allergy, Unknown, 05/13/18) Medication History Scheduled Baclofen* (Baclofen*), 10 MG GT THREE TIMES A DAY, (Reported) Bisacodyl* (Dulcolax*), 10 MG RECTAL DAILY, (Reported) Calcium Carbonate (Calcium Carbonate), 1,000 MG GT BID, (Reported) Chlorhexidine Gluconate (Peridex), 15 ML MM Q12HR, (Reported) Cholecalciferol (Vitamin D3)* (Vitamin D*), 5,000 UNIT GT ONCE A WEEK, (Reported ) Clobetasol Propionate/Emoll (Clobetasol Emollient 0.05% Crm), 15 GM TP DAILY, ( Reported) Clonidine Hcl* (Catapres*), 0.1 MG GT EVERY 6 HOURS, (Reported) Cranberry (Cranberry), 400 MG GT DAILY, (Reported) Cranberry Extract (Cranberry), 425 MG GT DAILY, (Reported) Dextran 70/Hypromellose (Artificial Tears Eye Drops*), 1 DROP BOTH EYES Q4HR, ( Reported) Docusate Sodium* (Docusate Sodium*), 100 MG GT TWICE A DAY, (Reported) Famotidine* (Pepcid 20mg tablet*), 20 MG GT DAILY, (Reported) Fenofibrate Nanocrystallized (Fenofibrate), 145 MG GT DAILY, (Reported) Fenofibrate,Micronized (Fenofibrate), 200 GT DAILY, (Reported) Glycopyrrolate (Robinul), 2 MG GT BID, (Reported) Heparin Sod (Porcine) (Heparin Sodium*), 5,000 UNITS SUBQ EVERY 12 HOURS, ( Reported) Insulin NPH Hum/Reg Insulin Hm (Novolin 70-30 Flexpen), 15 UNIT SQ Q12HR, ( Reported) Insulin Regular, Human (Humulin R), 0 SUBQ Q6HR, (Reported) Insulin Regular, Human* (Novolin R*), 0 SUBQ .SLIDING SCALE, (Reported) Ipratropium/Albuterol Sulfate (DuoNeb 0.5-3(2.5)mg/3ml), 3 ML HHN Q3HR, ( Reported) Lansoprazole* (Lansoprazole*), 30 MG GT DAILY, (Reported) Levetiracetam (Levetiracetam), 100 MG ORAL TWICE A DAY, (Reported) Levetiracetam* (Levetiracetam*), 1,000 MG GT TID, (Reported) Levetiracetam* (Levetiracetam*), 1,000 MG GT Q8HR, (Reported) Losartan Potassium* (Losartan Potassium*), 25 MG GT DAILY, (Reported) Multivitamin With Minerals (Multivitamins With Minerals*), 1 TAB GT DAILY, ( Reported) Nystatin* (Nystatin*), 1 APPLIC TOPIC THREE TIMES A DAY, (Reported) Mdzcrgvasiqu-Rpsm-Pqnshwko,Iso (Zosyn 3.375 Gm Pre Mix-Bag), 3.375 GM IVPB EVERY 8 HOURS, (Reported) Polyethylene Glycol 3350* (Miralax*), 17 GM GT DAILY, (Reported) Polyethylene Glycol 3350* (Miralax*), 17 GM ORAL DAILY, (Reported) Polyethylene Glycol 3350* (Miralax*), 17 GM GT DAILY, (Reported) Sitagliptin (Januvia), 50 MG GT DAILY, (Reported) Sitagliptin* (Januvia*), 50 MG GT DAILY, (Reported) Sodium Polystyrene Sulfonate (Sodium Polystyrene Sulfonate), 30 GM GT DAILY, ( Reported) Spironolactone* (Aldactone*), 25 MG GT DAILY, (Reported) Scheduled PRN Acetaminophen 160MG/5ML* (Acetaminophen*), 20.3 ML GT Q4HR PRN for Fever/ Headache/Mild Pain, (Reported) Albuterol Sulfate* (Albuterol Sulfate Hhn*), 3 ML INH Q2H PRN for Shortness of Breath, (Reported) Ondansetron* (Zofran*), 4 MG ORAL Q6H PRN for Nausea & Vomiting, (Reported) Miscellaneous Medications Arginine/Ascorbate Sod/Janay AC (Arginaid Powder), 1 EACH PO, (Reported) Dextran 70/Hypromellose/Pf (Artificial Tears Drops), 1 EACH OP, (Reported) Insulin Lispro (Humalog), 0 SUBQ, (Reported) Ipratropium/Albuterol Sulfate (DuoNeb 0.5-3(2.5)mg/3ml), 3 ML HHN, (Reported) Lactulose (Lactulose*), 30 ML GT, (Reported) Silver Sulfadiazine (Silvadene), 20 GM TP, (Reported) Tuberculin,Purif.prot.deriv. (Aplisol), 5 TU ID, (Reported) Vancomycin Hcl (Vancomycin), 750 MG IVPB, (Reported) Patient History Healthcare decision maker arnaldo Perez Resuscitation status Full Code Advanced Directive on File Patient History Narrative Pmhx: as above Shx: unable to obtain Fhx: non contributory Review of Systems All Other Systems: negative except mentioned in HPI Physical Exam Physical Exam Narrative GENERAL: Noncommunicative. Tongue fasciculation. Moderate edema. LUNGS: Diminished breath sounds. CARDIAC: Regular rhythm. Rapid rate. Normal S1, S2. ABDOMEN: Soft with G-tube and colostomy bag. Last 24 Hour Vital Signs Date Time Temp Pulse Resp B/P (MAP) Pulse Ox O2 Delivery O2 Flow Rate FiO2 09/15/19 10:00 111 18 101/78 (86) 100 09/15/19 09:08 117 17 30 09/15/19 09:00 118 18 140/72 (94) 100 09/15/19 08:00 117 09/15/19 08:00 98.6 117 17 140/81 (100) 100 09/15/19 08:00 Mechanical Ventilator 09/15/19 08:00 30 09/15/19 07:30 115 18 30 09/15/19 06:00 122 20 141/83 (102) 100 09/15/19 05:00 122 20 122/76 (91) 100 09/15/19 04:48 117 17 30 09/15/19 04:00 122 20 119/76 (90) 100 09/15/19 04:00 30 09/15/19 04:00 Mechanical Ventilator 09/15/19 04:00 114 09/15/19 03:00 122 20 148/86 (106) 100 09/15/19 02:44 123 17 30 09/15/19 02:00 123 20 130/70 (90) 100 09/15/19 01:02 122 19 30 09/15/19 01:00 125 20 121/81 (94) 100 09/15/19 00:00 30 09/15/19 00:00 Mechanical Ventilator 09/15/19 00:00 125 09/15/19 00:00 98.0 125 20 114/86 (95) 100 09/14/19 23:29 125 18 30 09/14/19 23:00 125 20 126/83 (97) 100 09/14/19 22:00 126 20 126/83 (97) 100 09/14/19 21:00 126 20 132/76 (94) 100 09/14/19 20:52 127 19 30 09/14/19 20:00 114 09/14/19 20:00 98.5 131 20 138/85 (102) 100 09/14/19 20:00 Mechanical Ventilator 09/14/19 19:26 133 18 30 09/14/19 19:26 133 20 98 Mechanical Ventilator 30 09/14/19 19:00 134 20 129/75 (93) 100 09/14/19 18:07 156 21 30 09/14/19 18:00 144 20 145/94 (111) 100 09/14/19 17:35 35 09/14/19 17:29 133 21 35 09/14/19 17:00 99.7 130 18 130/91 (104) 100 09/14/19 16:00 138 09/14/19 16:00 30 09/14/19 16:00 123 20 123/85 (98) 100 09/14/19 15:09 135 19 30 09/14/19 15:00 113 18 113/89 (97) 100 09/14/19 14:13 Mechanical Ventilator 09/14/19 14:00 130 18 130/82 (98) 100 09/14/19 13:00 99.6 139 19 139/93 (108) 100 128 09/14/19 12:38 145 18 30 09/14/19 12:22 100.8 120 18 143/88 99 Mechanical Ventilator 60.0 30 09/14/19 11:23 101.4 09/14/19 11:15 140 18 153/101 93 Mechanical Ventilator 09/14/19 10:45 142 18 142/104 100 Mechanical Ventilator Intake and Output 09/14/19 09/15/19 18:59 06:59 Intake Total 325 ml 1730 ml Output Total 550 ml 605 ml Balance -225 ml 1125 ml Intake Oral 0 ml IV Total 275 ml 1530 ml Tube Feeding 30 ml 150 ml Other 20 ml 50 ml Output Urine Total 300 ml 505 ml Stool Total 250 ml 100 ml Laboratory Tests Test 09/14/19 10:40 09/14/19 16:45 09/15/19 05:00 Sodium Level 149 MMOL/L (136-145) H 155 MMOL/L (136-145) H Potassium Level 4.4 MMOL/L (3.5-5.1) 3.5 MMOL/L (3.5-5.1) Chloride Level 118 MMOL/L (98-107) H 119 MMOL/L (98-107) H Carbon Dioxide Level 20 MMOL/L (21-32) L 20 MMOL/L (21-32) L Anion Gap 11 mmol/L (5-15) 16 mmol/L (5-15) H Blood Urea Nitrogen 42 mg/dL (7-18) H 36 mg/dL (7-18) H Creatinine 1.8 MG/DL (0.55-1.30) H 1.5 MG/DL (0.55-1.30) H Estimat Glomerular Filtration Rate 48.2 mL/min (>60) 59.5 mL/min (>60) Glucose Level 409 MG/DL (74-106) H 269 MG/DL (74-106) #H Calcium Level 10.4 MG/DL (8.5-10.1) H 10.7 MG/DL (8.5-10.1) H Total Bilirubin 0.5 MG/DL (0.2-1.0) 0.4 MG/DL (0.2-1.0) Aspartate Amino Transf (AST/SGOT) 40 U/L (15-37) H 28 U/L (15-37) Alanine Aminotransferase (ALT/SGPT) 29 U/L (12-78) 26 U/L (12-78) Alkaline Phosphatase 44 U/L (46-116) L 42 U/L (46-116) L Total Protein 7.8 G/DL (6.4-8.2) 7.3 G/DL (6.4-8.2) Albumin 2.8 G/DL (3.4-5.0) L 2.6 G/DL (3.4-5.0) L Globulin 5.0 g/dL 4.7 g/dL Albumin/Globulin Ratio 0.6 (1.0-2.7) L 0.6 (1.0-2.7) L Urine Color Yellow Urine Appearance Cloudy Urine pH 5 (4.5-8.0) Urine Specific [place] 1.015 (1.005-1.035) Urine Protein 4+ (NEGATIVE) H Urine Glucose (UA) 4+ (NEGATIVE) H Urine Ketones 1+ (NEGATIVE) H Urine Blood 3+ (NEGATIVE) H Urine Nitrite Negative (NEGATIVE) Urine Bilirubin Negative (NEGATIVE) Urine Urobilinogen Normal MG/DL (0.0-1.0) Urine Leukocyte Esterase 3+ (NEGATIVE) H Urine RBC 2-4 /HPF (0 - 0) H Urine WBC Tntc /HPF (0 - 0) H Urine Squamous Epithelial Cells None /LPF (NONE/OCC) Urine Bacteria Few /HPF (NONE) White Blood Count 18.2 K/UL (4.8-10.8) H Red Blood Count 2.65 M/UL (4.70-6.10) L Hemoglobin 7.9 G/DL (14.2-18.0) #L Hematocrit 25.6 % (42.0-52.0) #L Mean Corpuscular Volume 97 FL (80-99) Mean Corpuscular Hemoglobin 29.7 PG (27.0-31.0) Mean Corpuscular Hemoglobin Concent 30.8 G/DL (32.0-36.0) L Red Cell Distribution Width 17.5 % (11.6-14.8) H Platelet Count 244 K/UL (150-450) Mean Platelet Volume 8.6 FL (6.5-10.1) Neutrophils (%) (Auto) % (45.0-75.0) Lymphocytes (%) (Auto) % (20.0-45.0) Monocytes (%) (Auto) % (1.0-10.0) Eosinophils (%) (Auto) % (0.0-3.0) Basophils (%) (Auto) % (0.0-2.0) Differential Total Cells Counted 100 Neutrophils % (Manual) 69 % (45-75) Lymphocytes % (Manual) 14 % (20-45) L Monocytes % (Manual) 4 % (1-10) Eosinophils % (Manual) 13 % (0-3) H Basophils % (Manual) 0 % (0-2) Band Neutrophils 0 % (0-8) Platelet Estimate Adequate Platelet Morphology Normal Polychromasia 1+ Hypochromasia 1+ Anisocytosis 1+ Troponin I 0.009 ng/mL (0.000-0.056) Pro-B-Type Natriuretic Peptide 158 pg/mL (0-125) H Thyroid Stimulating Hormone (TSH) 1.641 uiU/mL (0.358-3.740) Random Vancomycin Level 15.1 ug/mL Microbiology Date/Time Source Procedure Growth Status 09/14/19 16:45 Sputum Gram Stain - Final Resulted 09/14/19 16:45 Sputum Sputum Culture Pending Resulted 09/14/19 16:45 Urine,Clean Catch Urine Culture - Preliminary NO GROWTH Resulted Height (Feet): 5 Height (Inches): 7.00 Weight (Pounds): 180 Medications Current Medications Medications (Trade) Dose Ordered Sig/Va Route PRN Reason Start Time Stop Time Status Last Admin Dose Admin Acetaminophen (Tylenol) 650 mg Q4H PRN GT Mild Pain/Temp > 100.6 09/14/19 14:45 10/14/19 14:44 Albuterol/ Ipratropium (Albuterol/ Ipratropium) 3 ml Q2H PRN HHN Shortness of Breath 09/14/19 14:45 09/19/19 14:44 Artificial Tears (Akwa-Tears) 2 drop Q12HR BOTH EYES 09/14/19 21:00 10/14/19 20:59 09/15/19 08:18 Baclofen (Lioresal) 10 mg THREE TIMES A DAY GT 09/14/19 18:00 10/14/19 17:59 09/15/19 08:18 Calcium Carbonate (Tums) 1,000 mg BID GT 09/14/19 18:00 10/14/19 17:59 11/25/19 08:19 Clobetasol Propionate (Temovate) 1 applic EVERY 12 HOURS TOPIC 09/14/19 21:00 10/14/19 20:59 09/15/19 08:19 Dextrose (Dextrose 50%) 25 ml Q30M PRN IV Hypoglycemia 09/14/19 14:45 10/14/19 14:44 Dextrose (Dextrose 50%) 50 ml Q30M PRN IV Hypoglycemia 09/14/19 14:45 10/14/19 14:44 Fenofibrate (Tricor) 145 mg DAILY ORAL 09/15/19 09:00 10/15/19 08:59 09/15/19 08:19 Heparin Sodium (Porcine) (Heparin 5000 units/ml) 5,000 units EVERY 12 HOURS SUBQ 09/14/19 21:00 10/14/19 20:59 09/15/19 08:21 Insulin Aspart (NovoLOG) BEFORE MEALS AND HS SUBQ 09/14/19 16:30 10/14/19 16:29 09/15/19 05:52 Levetiracetam 100 ml @ 400 mls/hr Q8HR IVPB 09/14/19 22:00 10/14/19 21:59 09/15/19 05:47 Lorazepam (Ativan 2mg/ml 1ml) 2 mg Q2H PRN IV For Anxiety 09/14/19 16:00 09/21/19 15:59 Meropenem 1 gm/ Sodium Chloride 55 ml @ 110 mls/hr Q12HR IVPB 09/14/19 21:00 09/19/19 20:59 09/15/19 08:33 Morphine Sulfate (Morphine Sulfate) 4 mg Q4H PRN IVP Severe Pain (Pain Scale 7-10) 09/14/19 16:00 09/21/19 15:59 Ondansetron HCl (Zofran) 4 mg Q6H PRN IVP Nausea & Vomiting 09/14/19 16:00 10/14/19 15:59 Pantoprazole (Protonix) 40 mg DAILY IV 09/15/19 09:00 10/15/19 08:59 09/15/19 08:18 Polyethylene Glycol (Miralax) 17 gm DAILYPRN PRN GT Constipation 09/14/19 16:00 10/14/19 14:44 Sitagliptin Phosphate (Januvia) 50 mg ACBREAKFAST GT 09/15/19 06:30 10/15/19 06:29 09/15/19 05:53 Sodium Chloride 1,000 ml @ 125 mls/hr Q8H IV 09/14/19 17:00 10/14/19 16:59 09/15/19 02:03 Vancomycin HCl (Vanco rx to dose) 1 ea DAILY PRN MISC . 09/14/19 16:00 10/14/19 15:59 Vancomycin/Sodium Chloride 275 ml @ 137.5 mls/ hr Q24H IVPB 09/15/19 09:00 09/20/19 08:59 09/15/19 09:11 Assessment/Plan Assessment/Plan: Abx: IV Vancomycin 09/14- Meropenem 09/14- Cefepime x1 09/14 Assessment: Severe Sepsis- likely 2ry to UTI- r/o PNA -Bcx p -u/a wbc tnct, nit neg, leuk +3; ucx NTD -sp cx p -CXR: Geographic density overlying the right upper lung. This likely represents overlying soft tissue although cannot exclude an underlying consolidation/pneumonia. Pulmonary vascular congestion. Small left pleural effusion. Subsegmental atelectasis versus infiltrate in the left lung base. -Influenza A/B ag neg Fever, improving Leukocytosis, improving DIVYA, improving Sacral decubitus hx of recurrent UTIs -UCx 11/17/18 P.a. (R Levo, otherwise S) - CT abd 11/19/18 3 mm distal right ureteral calculus, minimal resultant hydronephrosis. Atrophic left kidney, containing a large staghorn calculus and multiple intrarenal calyceal calculi, previously described UCx 11/23/18 - Enterobacter (S Cefepime) and yeast and Pa HTN CKD ICH s/p craniotomy and TRIM OPERATOR shunt now w/ persistent vegetative state dysphagia s/p GT Chronic resp failure - vent/trach dependent ICH COPD DM Seizure disorder BPH Dysphagia, G tube Colostomy SNF resident Plan: -Continue empiric IV Vancomycin and Meropenem #2 pending cultures -f/u cx -Monitor CBC/CMP, temperatures -PEG/Trach/ICU care -aspiration precautions -wound care Thank you for this consultation. Will continue to follow along with you. Discussed with Maribel Noble M.D. Sep 15, 2019 11:04
--- NOTE | 2019-09-15 11:20 | Diagnostic Imaging Report ---
Indication: Dyspnea Comparison: 09/14/2019 A single view chest radiograph was obtained. Findings: There is blunting of the left costophrenic angle which may be due to a pleural effusion or thickening. Tracheostomy again noted. Heart size is stable. IMPRESSION: No change from the previous day
--- NOTE | 2019-09-15 16:10 | Diagnostic Imaging Report ---
Indication: Abdominal pain Technique: Grayscale and duplex Doppler imaging of the abdomen performed. Comparison: None Findings: The liver is enlarged measuring 21 cm and is echogenic consistent with fatty infiltration. Doppler interrogation of the main portal vein shows patency with hepatopedal, monophasic flow. Spleen is between 12 and 13 cm in size. There is no biliary ductal dilatation identified. Gallbladder is unremarkable. There demonstrated part of the pancreas, aorta and IVC show no definite abnormalities. Both kidneys appear unremarkable. There is a left renal cyst measuring 1.5 cm. There may be a nonobstructive stone in the left kidney. There is no hydronephrosis. IMPRESSION: Hepatomegaly with fatty infiltration. Suspected nonobstructive stone left kidney. Left renal cyst
--- NOTE | 2019-09-15 16:45 | Progress Note ---
DATE: 09/15/2019 CARDIOLOGY PROGRESS NOTE SUBJECTIVE: The patient remains on ventilator support. OBJECTIVE: VITAL SIGNS: Blood pressure 101/78, heart rate 111, respiratory rate 18, and afebrile. LUNGS: Bilateral breath sounds. Scattered rhonchi. HEART: Regular rhythm. Rapid rate. Normal S1, S2. Unresponsive. EXTREMITIES: 1+ edema. LABORATORY DATA: White count 18 and hemoglobin 7.9. Sodium 155, bicarb ____, potassium 3.5, BUN 36, and creatinine 1.5. Pro-natriuretic peptide 158. IMPRESSION: 1. Dehydration. 2. Hypernatremia. 3. Hypovolemia. 4. Hyperchloremia. 5. Secondary sinus tachycardia. 6. Sepsis. 7. Ventilator-dependent respiratory failure. 8. Anemia, rule out gastrointestinal blood loss. PLAN: 1. Consider transfusion. 2. Continue antimicrobials. 3. Respiratory hygiene. 4. Avoid beta-agonist. 5. Free water replacement. Kali Melgar M.D. DR: LALI JOB#: [id number] CC:
[2019-09-15] MEDS ORDERED: Lidocaine 1% Plain 30 ml INJ PRN (17:45)
[2019-09-15] MEDS ORDERED: Heparin1,000 units/500ml Premix(Conc:2 units/ml) IV PRN (17:45)
--- NOTE | 2019-09-15 19:25 | Cardiology Report ---
APPROVED REPORT EKG Measurement Heart [id number] Sinus tachycardia Nonspecific T wave abnormality Abnormal ECG
[2019-09-15] MEDS ORDERED: Dyna-Hex 2% Top Sol 2oz TOPIC SCH (20:00)
[2019-09-15] MEDS ORDERED: NOVOLIN N100 UNIT/1 SUBQ (21:27)
[2019-09-15] MEDS ORDERED: FENOFIBRATE200 MG GT (21:27)
[2019-09-15] MEDS ORDERED: CRANBERRY425 MG GT (21:27)
[2019-09-15] MEDS ORDERED: VITAMIN D35000 UNIT GT (21:27)
[2019-09-15] MEDS ORDERED: SKIN PROTECTAN113 GM TP (21:32)
[2019-09-15] MEDS ORDERED: Vancomycin 1 GM in D5W 275 ML IV SCH (23:00)
[2019-09-16] VITALS (20 sets, daily range): BP systolic 105–141; BP diastolic 63–81
[2019-09-16 04:49] LABS: MEAN CORPUSCULAR VOLUME 95 FL (80-99); PLATELET COUNT 243 K/UL (150-450); RED BLOOD COUNT 2.41 M/UL (4.70-6.10); RED CELL DISTRIBUTION WIDTH 17.3 % (11.6-14.8); WHITE BLOOD COUNT 13.4 K/UL (4.8-10.8)
[2019-09-16 05:05] LABS: ANION GAP 15 mmol/L (5-15); BLOOD UREA NITROGEN 30 mg/dL (7-18); CALCIUM 10.7 MG/DL (8.5-10.1); CARBON DIOXIDE 21 MMOL/L (21-32); CHLORIDE 117 MMOL/L (98-107); CREATININE 1.4 MG/DL (0.55-1.30); POTASSIUM 3.2 MMOL/L (3.5-5.1); SODIUM 153 MMOL/L (136-145)
[2019-09-16 05:13] LABS: BILIRUBIN, URINE NEGATIVE (NEGATIVE); GLUCOSE, URINE (UA) 1+ (NEGATIVE); KETONES,URINE NEGATIVE (NEGATIVE); LEUKOCYTE ESTERASE ,URINE 3+ (NEGATIVE); NITRITE,URINE NEGATIVE (NEGATIVE); PH,URINE 5 (4.5-8.0); PROTEIN,URINE 4+ (NEGATIVE); UROBILINOGEN,URINE NORMAL MG/DL (0.0-1.0)
[2019-09-16] MEDS: levETIRAcetam 1,000mg/NS100ml 100 ML IVPB SCH ×3 (05:14→22:39)
[2019-09-16 05:23] LABS: CHOLESTEROL 241 MG/DL (< 200); CREATINE KINASE 156 U/L (26-308); HDL CHOLESTEROL 18 MG/DL (40-60); TRIGLYCERIDES 1256 MG/DL (30-150)
[2019-09-16 06:01] LABS: APPEARANCE,URINE CLOUDY
[2019-09-16 06:02] LABS: COLOR,URINE YELLOW
[2019-09-16] MEDS: sitaGLIPtin 50mg tab GT SCH (06:24)
[2019-09-16] MEDS: NovoLOG Insulin Flexpen SUBQ SCH ×4 (06:25→21:00)
[2019-09-16] MEDS: Heparin 5000 units/ml inj SUBQ SCH ×2 (08:33→21:00)
[2019-09-16] MEDS: Pantoprazole Inj IV SCH (08:44)
[2019-09-16] MEDS: Tums 500mg GT SCH (08:44)
[2019-09-16] MEDS: Clobetasol Cream 0.05% 15gm TOPIC SCH ×2 (08:51→20:36)
[2019-09-16] MEDS: Vancomycin 1.5gm/NS Premix IVPB SCH (08:52)
[2019-09-16] MEDS: Meropenem 1 GM in NS 55 ML IVPB SCH ×2 (08:52→20:38)
--- NOTE | 2019-09-16 10:22 | Pulmonolgy Critical Care Note ---
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 (7) ATN (acute tubular necrosis) Respiratory: monitor respiratory rate, adjust FIO2, CXR Cardiac: continue to monitor HR/BP Renal: F/U I&O, other - continue fluids through Gtube Infectious Disease: check cultures Gastrointestinal: hold feedings Endocrine: monitor blood sugar Hematologic: monitor H/H Affect: PRN ativan Prophylaxis: Protonix Time Spent (Minutes): 40 Notes Reviewed: video game repair technician, cardio Discussed with: nurses, consultants, mental health case manager, other - Dr. Quintero, for Urology called for insertion of a kendrick Critical Care - Objective Last 24 Hour Vital Signs Date Time Temp Pulse Resp B/P (MAP) Pulse Ox O2 Delivery O2 Flow Rate FiO2 09/16/19 10:00 100 17 116/76 (89) 100 09/16/19 09:00 104 17 129/72 (91) 100 09/16/19 09:00 102 16 30 09/16/19 08:00 104 09/16/19 08:00 30 09/16/19 08:00 104 17 121/81 (94) 100 09/16/19 08:00 Mechanical Ventilator 09/16/19 07:15 106 19 30 09/16/19 07:00 98.3 102 17 128/74 (92) 100 09/16/19 06:00 100 17 119/76 (90) 100 09/16/19 05:04 100 16 30 09/16/19 05:00 101 19 105/73 (84) 100 09/16/19 04:00 Mechanical Ventilator 09/16/19 04:00 30 09/16/19 04:00 98.3 104 17 117/71 (86) 100 09/16/19 03:18 104 17 30 09/16/19 03:06 105 09/16/19 03:00 106 17 125/78 (94) 100 09/16/19 02:00 109 17 119/70 (86) 100 09/16/19 01:29 110 18 30 09/16/19 01:00 105 17 117/73 (88) 100 09/16/19 00:00 30 09/16/19 00:00 98.7 103 16 141/80 (100) 100 09/16/19 00:00 Mechanical Ventilator 09/15/19 23:42 103 09/15/19 23:00 105 17 116/78 (91) 100 09/15/19 22:56 105 17 30 09/15/19 22:00 107 17 114/78 (90) 100 09/15/19 21:26 106 16 30 09/15/19 21:00 105 17 123/80 (94) 100 09/15/19 20:00 Mechanical Ventilator 09/15/19 20:00 30 09/15/19 20:00 98.8 103 17 125/76 (92) 100 09/15/19 19:38 106 17 30 09/15/19 19:26 107 09/15/19 19:00 107 18 117/76 (90) 100 09/15/19 18:00 108 18 126/77 (93) 100 09/15/19 17:00 107 17 117/79 (92) 100 09/15/19 16:57 111 18 30 09/15/19 16:00 98.5 109 17 133/81 (98) 100 09/15/19 16:00 Mechanical Ventilator 09/15/19 16:00 111 09/15/19 16:00 30 09/15/19 16:00 108 18 133/81 (98) 100 09/15/19 15:24 108 19 30 09/15/19 15:00 110 16 113/77 (89) 100 09/15/19 14:00 107 16 129/78 (95) 100 09/15/19 13:22 109 16 30 09/15/19 13:00 111 18 111/75 (87) 100 09/15/19 12:00 30 09/15/19 12:00 108 09/15/19 12:00 Mechanical Ventilator 09/15/19 12:00 98.6 107 17 133/82 (99) 100 09/15/19 12:00 117 09/15/19 11:02 108 18 30 09/15/19 11:00 108 18 127/78 (94) 100 Status: obtunded Condition: critical Lungs: rales, rhonchi Heart: HR/BP stable Abdomen: soft, non-tender Extremities: no C/C/E Decubiti: stage Micro: Microbiology Date/Time Source Procedure Growth Status 09/14/19 09:15 Blood Blood Culture - Preliminary NO GROWTH AFTER 24 HOURS Resulted 09/14/19 09:15 Blood Blood Culture - Preliminary NO GROWTH AFTER 24 HOURS Resulted 09/15/19 11:00 Nasal Nares - Final Complete 09/15/19 11:00 Nasal Nares - Final Complete 09/14/19 16:45 Sputum Gram Stain - Final Resulted 09/14/19 16:45 Sputum Culture - Preliminary Gram Negative Bacillus 1 Resulted 09/14/19 09:40 Nasal Nares - Final Complete 09/14/19 09:40 Nasal Nares - Final Complete 09/14/19 09:10 Nasal Nares MRSA Culture - Final Staphylococcus Aureus - Mrsa Complete 09/14/19 16:45 Urine,Clean Catch Urine Culture - Preliminary Resulted 09/14/19 09:10 Rectum VRE Culture - Final Enterococcus Faecium - Vre Complete 09/14/19 09:10 Rectum - Final NO CARBAPENEM-RESISTANT ENTEROBACTERI... Complete Accucheck: 219 Critical Care - Subjective ROS Limited/Unobtainable: Yes ICU Day: 2 Condition: critical EKG Rhythm: Sinus Rhythm FI02: 30 Vent Support Breath Rate: 16 Vent Support Mode: AC Vent Tidal Volume: 600 Sputum Amount: Small PEEP: 5.0 PIP: 31 Tube Feeding Amount: 100 I&O: Intake and Output 09/15/19 09/16/19 19:00 07:00 Intake Total 1879.58 ml 1455 ml Output Total 550 ml 100 ml Balance 1329.58 ml 1355 ml Free Water 60 ml IV Total 919.58 ml 255 ml Tube Feeding 900 ml 1200 ml Output Urine Total 300 ml 0 ml Stool Total 250 ml 100 ml # Voids 260 CXR: trach intact Labs: Laboratory Tests Test 09/15/19 11:00 09/16/19 03:00 09/16/19 03:15 Urine Legionella Antigen Pending Urine Color Yellow Urine Appearance Cloudy Urine pH 5 (4.5-8.0) Urine Specific [place] 1.015 (1.005-1.035) Urine Protein 4+ (NEGATIVE) H Urine Glucose (UA) 1+ (NEGATIVE) H Urine Ketones Negative (NEGATIVE) Urine Blood 3+ (NEGATIVE) H Urine Nitrite Negative (NEGATIVE) Urine Bilirubin Negative (NEGATIVE) Urine Urobilinogen Normal MG/DL (0.0-1.0) Urine Leukocyte Esterase 3+ (NEGATIVE) H Urine RBC 20-30 /HPF (0 - 0) H Urine WBC Tntc /HPF (0 - 0) H Urine Squamous Epithelial Cells Few /LPF (NONE/OCC) Urine Bacteria Moderate /HPF (NONE) H White Blood Count 13.4 K/UL (4.8-10.8) H Red Blood Count 2.41 M/UL (4.70-6.10) L Hemoglobin 7.0 G/DL (14.2-18.0) L Hematocrit 23.0 % (42.0-52.0) L Mean Corpuscular Volume 95 FL (80-99) Mean Corpuscular Hemoglobin 29.2 PG (27.0-31.0) Mean Corpuscular Hemoglobin Concent 30.6 G/DL (32.0-36.0) L Red Cell Distribution Width 17.3 % (11.6-14.8) H Platelet Count 243 K/UL (150-450) Mean Platelet Volume 8.9 FL (6.5-10.1) Neutrophils (%) (Auto) % (45.0-75.0) Lymphocytes (%) (Auto) % (20.0-45.0) Monocytes (%) (Auto) % (1.0-10.0) Eosinophils (%) (Auto) % (0.0-3.0) Basophils (%) (Auto) % (0.0-2.0) Differential Total Cells Counted 100 Neutrophils % (Manual) 74 % (45-75) Lymphocytes % (Manual) 9 % (20-45) L Monocytes % (Manual) 3 % (1-10) Eosinophils % (Manual) 14 % (0-3) H Basophils % (Manual) 0 % (0-2) Band Neutrophils 0 % (0-8) Platelet Estimate Adequate Platelet Morphology Normal Anisocytosis 1+ Sodium Level 153 MMOL/L (136-145) H Potassium Level 3.2 MMOL/L (3.5-5.1) L Chloride Level 117 MMOL/L (98-107) H Carbon Dioxide Level 21 MMOL/L (21-32) Anion Gap 15 mmol/L (5-15) Blood Urea Nitrogen 30 mg/dL (7-18) H Creatinine 1.4 MG/DL (0.55-1.30) H Estimat Glomerular Filtration Rate > 60 mL/min (>60) Glucose Level 219 MG/DL (74-106) H Calcium Level 10.7 MG/DL (8.5-10.1) H Calcium (Send out) Pending Phosphorus Level 2.7 MG/DL (2.5-4.9) Magnesium Level 1.9 MG/DL (1.8-2.4) Total Creatine Kinase 156 U/L (26-308) Triglycerides Level 1256 MG/DL (30-150) H Cholesterol Level 241 MG/DL (< 200) H LDL Cholesterol 59 mg/dL (<100) HDL Cholesterol 18 MG/DL (40-60) L Cholesterol/HDL Ratio 13.4 (3.3-4.4) H Parathyroid Hormone (Intact) Pending Nico Goetz MD Sep 16, 2019 10:22
--- NOTE | 2019-09-16 10:43 | Infectious Diseases Prog Note ---
Assessment/Plan Assessment/Plan Assessment: Severe Sepsis- likely 2ry to UTI- r/o PNA -Bcx NTD -u/a wbc tnct, nit neg, leuk +3; ucx p -sp cx GNR -CXR: Geographic density overlying the right upper lung. This likely represents overlying soft tissue although cannot exclude an underlying consolidation/pneumonia. Pulmonary vascular congestion. Small left pleural effusion. Subsegmental atelectasis versus infiltrate in the left lung base. -Influenza A/B ag neg Fever, improving Leukocytosis, improving DIVYA, improving Mild AST elevation, SP -Abd uS: Hepatomegaly with fatty infiltration. Suspected nonobstructive stone left kidney. Left renal cyst Sacral decubitus hx of recurrent UTIs -UCx 11/17/18 P.a. (R Levo, otherwise S) - CT abd 11/19/18 3 mm distal right ureteral calculus, minimal resultant hydronephrosis. Atrophic left kidney, containing a large staghorn calculus and multiple intrarenal calyceal calculi, previously described UCx 11/23/18 - Enterobacter (S Cefepime) and yeast and Pa HTN CKD ICH s/p craniotomy and AUDITING CODER shunt now w/ persistent vegetative state dysphagia s/p GT Chronic resp failure - vent/trach dependent ICH COPD DM Seizure disorder BPH Dysphagia, G tube Colostomy SNF resident Plan: -Continue empiric IV Vancomycin and Meropenem #3 pending cultures -09/14 SP Cefepime x1 -f/u cx -Monitor CBC/CMP, temperatures -PEG/Trach/ICU care -aspiration precautions -wound care Thank you for this consultation. Will continue to follow along with you. Discussed with RN Subjective Allergies: Coded Allergies: AZTREONAM (Verified Allergy, Unknown, 05/13/18) Subjective afebrile in >36hrs wbc and Cr improving BCx NTD Objective Vital Signs Last 24 Hour Vital Signs Date Time Temp Pulse Resp B/P (MAP) Pulse Ox O2 Delivery O2 Flow Rate FiO2 09/16/19 10:00 100 17 116/76 (89) 100 09/16/19 09:00 104 17 129/72 (91) 100 09/16/19 09:00 102 16 30 09/16/19 08:00 104 09/16/19 08:00 30 09/16/19 08:00 104 17 121/81 (94) 100 09/16/19 08:00 Mechanical Ventilator 09/16/19 07:15 106 19 30 09/16/19 07:00 98.3 102 17 128/74 (92) 100 09/16/19 06:00 100 17 119/76 (90) 100 09/16/19 05:04 100 16 30 09/16/19 05:00 101 19 105/73 (84) 100 09/16/19 04:00 Mechanical Ventilator 09/16/19 04:00 30 09/16/19 04:00 98.3 104 17 117/71 (86) 100 09/16/19 03:18 104 17 30 09/16/19 03:06 105 09/16/19 03:00 106 17 125/78 (94) 100 09/16/19 02:00 109 17 119/70 (86) 100 09/16/19 01:29 110 18 30 09/16/19 01:00 105 17 117/73 (88) 100 09/16/19 00:00 30 09/16/19 00:00 98.7 103 16 141/80 (100) 100 09/16/19 00:00 Mechanical Ventilator 09/15/19 23:42 103 09/15/19 23:00 105 17 116/78 (91) 100 09/15/19 22:56 105 17 30 09/15/19 22:00 107 17 114/78 (90) 100 09/15/19 21:26 106 16 30 09/15/19 21:00 105 17 123/80 (94) 100 09/15/19 20:00 Mechanical Ventilator 09/15/19 20:00 30 09/15/19 20:00 98.8 103 17 125/76 (92) 100 09/15/19 19:38 106 17 30 09/15/19 19:26 107 09/15/19 19:00 107 18 117/76 (90) 100 09/15/19 18:00 108 18 126/77 (93) 100 09/15/19 17:00 107 17 117/79 (92) 100 09/15/19 16:57 111 18 30 09/15/19 16:00 98.5 109 17 133/81 (98) 100 09/15/19 16:00 Mechanical Ventilator 09/15/19 16:00 111 09/15/19 16:00 30 09/15/19 16:00 108 18 133/81 (98) 100 09/15/19 15:24 108 19 30 09/15/19 15:00 110 16 113/77 (89) 100 09/15/19 14:00 107 16 129/78 (95) 100 09/15/19 13:22 109 16 30 09/15/19 13:00 111 18 111/75 (87) 100 09/15/19 12:00 30 09/15/19 12:00 108 09/15/19 12:00 Mechanical Ventilator 09/15/19 12:00 98.6 107 17 133/82 (99) 100 09/15/19 12:00 117 09/15/19 11:02 108 18 30 09/15/19 11:00 108 18 127/78 (94) 100 Height (Feet): 5 Height (Inches): 7.00 Weight (Pounds): 183 Objective GENERAL: Noncommunicative. Tongue fasciculation. Moderate edema. LUNGS: Diminished breath sounds. CARDIAC: Regular rhythm. Rapid rate. Normal S1, S2. ABDOMEN: Soft with G-tube and colostomy bag. Microbiology Date/Time Source Procedure Growth Status 09/14/19 09:15 Blood Blood Culture - Preliminary NO GROWTH AFTER 24 HOURS Resulted 09/14/19 09:15 Blood Blood Culture - Preliminary NO GROWTH AFTER 24 HOURS Resulted 09/15/19 11:00 Nasal Nares - Final Complete 09/15/19 11:00 Nasal Nares - Final Complete 09/14/19 16:45 Sputum Gram Stain - Final Resulted 09/14/19 16:45 Sputum Culture - Preliminary Gram Negative Bacillus 1 Resulted 09/14/19 09:40 Nasal Nares - Final Complete 09/14/19 09:40 Nasal Nares - Final Complete 09/14/19 09:10 Nasal Nares MRSA Culture - Final Staphylococcus Aureus - Mrsa Complete 09/14/19 16:45 Urine,Clean Catch Urine Culture - Preliminary Resulted 09/14/19 09:10 Rectum VRE Culture - Final Enterococcus Faecium - Vre Complete 09/14/19 09:10 Rectum - Final NO CARBAPENEM-RESISTANT ENTEROBACTERI... Complete Laboratory Tests Test 09/15/19 11:00 09/16/19 03:00 09/16/19 03:15 Urine Legionella Antigen Pending Urine Color Yellow Urine Appearance Cloudy Urine pH 5 (4.5-8.0) Urine Specific [place] 1.015 (1.005-1.035) Urine Protein 4+ (NEGATIVE) H Urine Glucose (UA) 1+ (NEGATIVE) H Urine Ketones Negative (NEGATIVE) Urine Blood 3+ (NEGATIVE) H Urine Nitrite Negative (NEGATIVE) Urine Bilirubin Negative (NEGATIVE) Urine Urobilinogen Normal MG/DL (0.0-1.0) Urine Leukocyte Esterase 3+ (NEGATIVE) H Urine RBC 20-30 /HPF (0 - 0) H Urine WBC Tntc /HPF (0 - 0) H Urine Squamous Epithelial Cells Few /LPF (NONE/OCC) Urine Bacteria Moderate /HPF (NONE) H White Blood Count 13.4 K/UL (4.8-10.8) H Red Blood Count 2.41 M/UL (4.70-6.10) L Hemoglobin 7.0 G/DL (14.2-18.0) L Hematocrit 23.0 % (42.0-52.0) L Mean Corpuscular Volume 95 FL (80-99) Mean Corpuscular Hemoglobin 29.2 PG (27.0-31.0) Mean Corpuscular Hemoglobin Concent 30.6 G/DL (32.0-36.0) L Red Cell Distribution Width 17.3 % (11.6-14.8) H Platelet Count 243 K/UL (150-450) Mean Platelet Volume 8.9 FL (6.5-10.1) Neutrophils (%) (Auto) % (45.0-75.0) Lymphocytes (%) (Auto) % (20.0-45.0) Monocytes (%) (Auto) % (1.0-10.0) Eosinophils (%) (Auto) % (0.0-3.0) Basophils (%) (Auto) % (0.0-2.0) Differential Total Cells Counted 100 Neutrophils % (Manual) 74 % (45-75) Lymphocytes % (Manual) 9 % (20-45) L Monocytes % (Manual) 3 % (1-10) Eosinophils % (Manual) 14 % (0-3) H Basophils % (Manual) 0 % (0-2) Band Neutrophils 0 % (0-8) Platelet Estimate Adequate Platelet Morphology Normal Anisocytosis 1+ Sodium Level 153 MMOL/L (136-145) H Potassium Level 3.2 MMOL/L (3.5-5.1) L Chloride Level 117 MMOL/L (98-107) H Carbon Dioxide Level 21 MMOL/L (21-32) Anion Gap 15 mmol/L (5-15) Blood Urea Nitrogen 30 mg/dL (7-18) H Creatinine 1.4 MG/DL (0.55-1.30) H Estimat Glomerular Filtration Rate > 60 mL/min (>60) Glucose Level 219 MG/DL (74-106) H Calcium Level 10.7 MG/DL (8.5-10.1) H Calcium (Send out) Pending Phosphorus Level 2.7 MG/DL (2.5-4.9) Magnesium Level 1.9 MG/DL (1.8-2.4) Total Creatine Kinase 156 U/L (26-308) Triglycerides Level 1256 MG/DL (30-150) H Cholesterol Level 241 MG/DL (< 200) H LDL Cholesterol 59 mg/dL (<100) HDL Cholesterol 18 MG/DL (40-60) L Cholesterol/HDL Ratio 13.4 (3.3-4.4) H Parathyroid Hormone (Intact) Pending Current Medications Medications (Trade) Dose Ordered Sig/Va Route PRN Reason Start Time Stop Time Status Last Admin Dose Admin Acetaminophen (Tylenol) 650 mg Q4H PRN GT Mild Pain/Temp > 100.6 09/14/19 14:45 10/14/19 14:44 Albuterol/ Ipratropium (Albuterol/ Ipratropium) 3 ml Q2H PRN HHN Shortness of Breath 09/14/19 14:45 09/19/19 14:44 Artificial Tears (Akwa-Tears) 2 drop Q12HR BOTH EYES 09/14/19 21:00 10/14/19 20:59 09/16/19 08:51 Baclofen (Lioresal) 10 mg THREE TIMES A DAY GT 09/14/19 18:00 10/14/19 17:59 09/16/19 08:44 Calcium Carbonate (Tums) 1,000 mg BID GT 09/14/19 18:00 10/14/19 17:59 09/16/19 08:44 Chlorhexidine Gluconate (Rebecca-Hex 2%) 1 applic DAILY@1999 TOPIC 09/15/19 20:00 10/15/19 19:59 Clobetasol Propionate (Temovate) 1 applic EVERY 12 HOURS TOPIC 09/14/19 21:00 10/14/19 20:59 09/16/19 08:51 Dextrose (Dextrose 50%) 25 ml Q30M PRN IV Hypoglycemia 09/14/19 14:45 10/14/19 14:44 Dextrose (Dextrose 50%) 50 ml Q30M PRN IV Hypoglycemia 09/14/19 14:45 10/14/19 14:44 Fenofibrate (Tricor) 145 mg DAILY ORAL 09/15/19 09:00 10/15/19 08:59 09/16/19 08:44 Heparin Sodium (Porcine) (Heparin 5000 units/ml) 5,000 units EVERY 12 HOURS SUBQ 09/14/19 21:00 10/14/19 20:59 09/15/19 21:21 Insulin Aspart (NovoLOG) BEFORE MEALS AND HS SUBQ 09/14/19 16:30 10/14/19 16:29 09/16/19 06:25 Levetiracetam 100 ml @ 400 mls/hr Q8HR IVPB 09/14/19 22:00 10/14/19 21:59 09/16/19 05:14 Lorazepam (Ativan 2mg/ml 1ml) 2 mg Q2H PRN IV For Anxiety 09/14/19 16:00 09/21/19 15:59 Meropenem 1 gm/ Sodium Chloride 55 ml @ 110 mls/hr Q12HR IVPB 09/14/19 21:00 09/19/19 20:59 09/16/19 08:52 Morphine Sulfate (Morphine Sulfate) 4 mg Q4H PRN IVP Severe Pain (Pain Scale 7-10) 09/14/19 16:00 09/21/19 15:59 Ondansetron HCl (Zofran) 4 mg Q6H PRN IVP Nausea & Vomiting 09/14/19 16:00 10/14/19 15:59 Pantoprazole (Protonix) 40 mg DAILY IV 09/15/19 09:00 10/15/19 08:59 09/16/19 08:44 Polyethylene Glycol (Miralax) 17 gm DAILYPRN PRN GT Constipation 09/14/19 16:00 10/14/19 14:44 Sitagliptin Phosphate (Januvia) 50 mg ACBREAKFAST GT 09/15/19 06:30 12/25/19 06:29 09/16/19 06:24 Vancomycin HCl (Vanco rx to dose) 1 ea DAILY PRN MISC . 09/14/19 16:00 10/14/19 15:59 Vancomycin/Sodium Chloride 275 ml @ 137.5 mls/ hr Q24H IVPB 09/15/19 09:00 09/20/19 08:59 09/16/19 08:52 Maribel Barrera M.D. Sep 16, 2019 10:43
--- NOTE | 2019-09-16 11:00 | Progress Note ---
DATE: 09/15/2019 SUBJECTIVE: The patient's condition has moderately improved. PHYSICAL EXAMINATION: VITAL SIGNS: Blood pressure now is 116/78, his heart rate declined from 162 to 105, respirations of 17, and temperature of 98.8. HEENT: Eyes were normal. ENT, mucous membranes were moist and intact. Tongue is protruded. NECK: Supple with no JVD without lymph nodes. Tracheostomy site is clean. LUNGS: Clear without rhonchi, rales, or wheezing. Secretions are small, thin, and white. HEART: Normal sounds with regular beats. There is no S3, S4, or pericardial rubs. ABDOMEN: Soft and nontender with normal bowel sounds. Gastrostomy site is clean. EXTREMITIES: Warm without cyanosis, clubbing, or edema. LABORATORY AND DIAGNOSTIC DATA: His hemoglobin is 7.9, hematocrit 25.6 with MCV of 97, WBC of 18.2, and platelets of 244. His WBC was 24.7 yesterday. His BUN and creatinine is 36 and 1.5 today and it was 42 and 1.8 yesterday. His sodium is 155, potassium 3.5, chloride 119, and CO2 is 20. His troponin is 0.09. His pro-BNP is 156. His lactic acid is unavailable. SGOT, SGPT, and alkaline phosphatase are normal. It was 1.10 yesterday. His glucose is 269, it was yesterday. His calcium is 10.7. His chest x-ray revealed pulmonary vascular congestion, small left pleural effusion, and subsegmental atelectasis in the left base. He had an abdominal ultrasound today, hepatomegaly with fatty infiltrate and an obstructing stone in the left kidney. for influenza was negative. Urine culture no growth in the 24-hour gram-negative rods. In addition, the patient has distended bladder output because of ureteral stenosis. Urology internet sales consultant was called to assist in the management of this case. The patient currently is on vancomycin, amikacin yesterday. Repeat laboratory tests will be done in the a.m. Sariah Bhat M.D. DR: PATTIE JOB#: [id number] CC:
--- NOTE | 2019-09-16 16:55 | Diagnostic Imaging Report ---
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 The right upper extremity was prepped with alcohol. All elements of maximal sterile barrier technique were followed including usage of a cap, mask, sterile gown, sterile gloves, hand hygiene and a large sterile sheet. Sonographic evaluation of the upper extremity was performed demonstrating a patent and compressible brachial vein. Access was obtained under real-time ultrasound guidance (with utilization of sterile gel and sterile probe cover) and digital image was saved and archived. An .018 wire was introduced. Needle exchanged for a 5 Japanese peel-away sheath. Measurements were obtained. Several attempts at passing a wire or catheter beyond 10 cm were unsuccessful. Ultrasound evaluation in the upper part of the arm close to the axilla showed no appreciable vein for access. A 5 Japanese dual-lumen Power PICC line catheter was cut to 10 cm and introduced over the wire. Peel-away sheath and wire were removed.Catheter was secured to the skin using 2-0 Prolene suture. Both ports aspirate and flush easily. Post procedure chest x-ray demonstrates the PICC line catheter within the right upper arm. Impression: Unsuccessful placement of an upper extremity PICC line catheter. Successful placement of a peripheral midline catheter.
[2019-09-16] MEDS ORDERED: LORazepam Inj 2mg/ml 1ml IV PRN (18:43)
[2019-09-16] MEDS ORDERED: Miralax 17gm pkt GT PRN (18:44)
[2019-09-16] MEDS ORDERED: Morphine Sulfate 4mg/ml Inj (IV USE ONLY) IVP PRN (18:44)
[2019-09-16] MEDS ORDERED: Albuterol/Ipratropium 3ml neb HHN PRN (18:45)
[2019-09-16] MEDS ORDERED: Dyna-Hex 2% Top Sol 2oz TOPIC SCH (20:00)
--- NOTE | 2019-09-16 20:15 | Progress Note ---
DATE: 09/16/2019 NOTE: INCOMPLETE DICTATION: SUBJECTIVE: The patient's condition continued to improve. His heart rate did not decline below 100, but still remained between 95 to 100 the whole day. OBJECTIVE: VITAL SIGNS: Blood pressure is 115/71, his pulse now is 103, respirations are 16, temperature 98. HEENT: Eyes were normal. ENT, mucous membranes were moist and intact. NECK: Supple with no JVD without lymph nodes. Tracheostomy site is clean. LUNGS: Clear without rhonchi, rales, or wheezing. Secretions are small, thin, and beckman. HEART: Normal sounds with regular beats. No S3, S4, or pericardial rub. ABDOMEN: Soft and nontender with normal bowel sounds. Gastrostomy site is clean. EXTREMITIES: Warm. No clubbing or edema. LABORATORY AND DIAGNOSTIC DATA: Hemoglobin 7.2, hematocrit 23.0 with MCV of 95, WBC of 13.4, and platelets are 243. WBC yesterday was 18.2 and 24.7 on 09/14/2019. His BUN and creatinine is 30 and 1.4 respectively. His sodium is . Sariah Bhat M.D. DR: VALDO JOB#: [id number] CC:
--- NOTE | 2019-09-16 22:00 | Progress Note ---
DATE: 09/16/2019 CARDIOLOGY PROGRESS NOTE SUBJECTIVE: The patient remains on ventilator support via trach. He is unresponsive at baseline. OBJECTIVE: VITAL SIGNS: Blood pressure 120/72, pulse 102, respirations 16. No fevers. LUNGS: Rhonchi. CARDIAC: Regular rhythm and rate. Normal S1, S2. ABDOMEN: Soft, obese. EXTREMITIES: With dependent edema. LABORATORY DATA: White count 13, hemoglobin 7. Potassium 3.2, sodium 153, chloride 117, BUN 30, creatinine 1.4. IMPRESSION: 1. Sepsis. 2. Dehydration. 3. Hypernatremia. 4. Chronic encephalopathy. 5. Anemia. 6. Sinus tachycardia. 7. Severe hypertriglyceridemia PLAN: Physiologically appropriate for current clinical parameters. No additional cardiovascular interventions recommended. Continue hypertonic IV. Consider transfusion of packed red blood cells. I agree with anti-lipid therapy. No role for antiarrhythmics in this setting. No beta blockers. Kali Melgar M.D. DR: FRANCISCO JOB#: [id number] CC:
--- NOTE | 2019-09-16 23:45 | Consultation ---
DATE OF CONSULTATION: 09/16/2019 CONSULTING PHYSICIAN: Manohar Villarreal M.D. REFERRING PHYSICIAN: Sariah Bhat M.D. REASON FOR CONSULTATION: For evaluation of difficult catheterization. HISTORY OF PRESENT ILLNESS: This is a 54-year-old male. He is a resident of a skilled nursing. He was admitted to the hospital because of sepsis. He has had history of fevers, tachycardia, and leukocytosis. He has a history of intracerebral hemorrhage. He has a tracheostomy, chronic vent. He was in the ICU and then transferred to the [facility]. Nursing staff attempted to place a Newberry catheter, some hematuria was noted, they were unsuccessful. He has been incontinent. Elevated bladder residuals have been noted. He also had some renal insufficiency, which is slowly improving. PAST MEDICAL HISTORY: Significant for above. Again, history of intracerebral hemorrhage, history of craniotomy, [employer] shunt, history of chronic ventilatory-dependent, gastrostomy, BPH history. PAST SURGICAL HISTORY: As above. MEDICATIONS: Current medication list in the hospital was reviewed. ALLERGIES: Aztreonam. FAMILY HISTORY: Unable to obtain. PHYSICAL EXAMINATION: GENERAL: An elderly male, nonverbal. VITAL SIGNS: Temperature is 98.8, blood pressure is 133/79. HEENT: Trach is in place. GASTROINTESTINAL: The feeding tube is in place. Abdomen shows some distention. GENITOURINARY: He has a condom catheter on and urine is grossly yellow. LABORATORY DATA: Admit UA showed 4+ protein, 2 to 4 rbc's, too numerous to count wbc's. He did have a urine culture and the report is pending. He did have blood cultures and so far negative. His white blood cell count is 13.4, hemoglobin 7.0. His BUN is 30, creatinine is 1.4. He did come in with a creatinine of 1.7. I do not know what his baseline is at. DIAGNOSTIC IMAGING STUDIES: The patient had an abdominal ultrasound. There was no hydronephrosis noted. There was mention of a nonobstructing some of the left kidney, left renal cyst. Procedure, at the bedside, I did attempt to pass a Newberry catheter, which was met with resistance. I also attempted a coude catheter, which was met with resistance and I would imagine that he has a stricture. I was able to pass a filiforms into the bladder. I did pass followers, however, there was a significant obstruction at this stricture and I believe that it is a very dense stricture to the point that I was not able to pass the follower through just very barely and I did not want to cause any more trauma. I did attempt to pass a 12-Indonesian catheter through, but that was met with resistance also. IMPRESSION: 1. Urinary retention. 2. BPH. 3. Neurogenic bladder. 4. Incontinence. 5. Pyuria. 6. Hematuria. 7. Proteinuria. 8. Renal insufficiency, acute possibly on chronic. 9. Renal cyst. 10. Nephrolithiasis. 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 The patient will need to have a urethrotomy with cystoscopy for catheter placement. Possibly suprapubic tube although he does have a lower abdominal scar, so he would be safer to try to put a Newberry catheter through the urethra if possible. The above was discussed with the patient's who is the decision maker and it was discussed extensively and I did explain circumstances and she is willing to sign a consent for the procedure. I also did discuss this with Dr. Bhat. So, hopefully we can schedule the procedure in the near future. In the meantime, clinically he seems to be improving. His renal function is improving. His leukocytosis is improving. He is voiding some through the condom catheter, and so I think his retention is probably chronic but we will try to see if we can get a catheter in him. Thank you for this consultation. Manohar Villarreal M.D. DR: CHRIS JOB#: [id number] CC: Sariah Bhat M.D.; Fax#: [phone] Kali Melgar M.D.
[2019-09-17] VITALS (15 sets, daily range): BP systolic 115–131; BP diastolic 75–87
[2019-09-17] MEDS ORDERED: Tamsulosin 0.4mg cap ORAL ONE (00:45)
--- NOTE | 2019-09-17 01:30 | Progress Note ---
DATE: 09/16/2019 ADDENDUM LABORATORY AND DIAGNOSTIC DATA: Phosphorus is 2.7, magnesium is 1.9. His intact PTH is pending. His calcium is 10.7. Immunostain was negative for influenza A and B. His urine culture showed gram-negative bacilli but the culture is still pending. His blood culture from yesterday are no growth after 24 hours. His VRE swab was enterococcus faecium which is considered a contaminant. Staph aureus from MRSA was positive. No new imaging study was available at the time of this dictation. IMPRESSION: The patient was discovered to have scabies and he has been treated with permethrin 5% total body coverage . The patient has sepsis. He is on vancomycin and Merrem. His WBC is progressively declining associated with decline in heart rate which was 160 on admission. The patient is still hypernatremic. His renal failure is improving with hydration. We are awaiting still to confirm details regarding hypercalcemia, but this hypercalcemia is of mild category that requires only hydration and diuretics. The calcium carbonate has been discontinued. Repeat laboratory tests will be done in the a.m. Sariah Bhat M.D. DR: KRYSTAL JOB#: [id number] CC:
[2019-09-17 05:21] LABS: BASOPHILS % (AUTO) 1.1 % (0.0-2.0); EOSINOPHILS % (AUTO) 16.7 % (0.0-3.0); HEMATOCRIT 25.8 % (42.0-52.0); HEMOGLOBIN 8.2 G/DL (14.2-18.0); LYMPHOCYTES % (AUTO) 8.6 % (20.0-45.0); MEAN CORPUSCULAR VOLUME 93 FL (80-99); MONOCYTES % (AUTO) 4.8 % (1.0-10.0); NEUTROPHILS % (AUTO) 68.8 % (45.0-75.0); PLATELET COUNT 253 K/UL (150-450); RED BLOOD COUNT 2.77 M/UL (4.70-6.10); RED CELL DISTRIBUTION WIDTH 17.4 % (11.6-14.8); WHITE BLOOD COUNT 11.5 K/UL (4.8-10.8)
[2019-09-17 05:30] LABS: INR 1.1 (0.9-1.1)
[2019-09-17] MEDS: levETIRAcetam 1,000mg/NS100ml 100 ML IVPB SCH ×2 (05:34→20:07)
[2019-09-17 05:49] LABS: ANION GAP 16 mmol/L (5-15); BLOOD UREA NITROGEN 21 mg/dL (7-18); CALCIUM 10.2 MG/DL (8.5-10.1); CARBON DIOXIDE 19 MMOL/L (21-32); CHLORIDE 118 MMOL/L (98-107); SODIUM 153 MMOL/L (136-145)
[2019-09-17] MEDS: sitaGLIPtin 50mg tab GT SCH (05:54)
[2019-09-17] MEDS: NovoLOG Insulin Flexpen SUBQ SCH ×4 (06:30→20:05)
[2019-09-17] MEDS: Heparin 5000 units/ml inj SUBQ SCH ×2 (09:00→20:11)
[2019-09-17] MEDS: Clobetasol Cream 0.05% 15gm TOPIC SCH ×2 (10:09→20:06)
[2019-09-17] MEDS: Pantoprazole Inj IV SCH (10:09)
[2019-09-17] MEDS: Tamsulosin 0.4mg cap ORAL SCH (10:10)
[2019-09-17] MEDS: Meropenem 1 GM in NS 55 ML IVPB SCH ×2 (10:31→20:15)
[2019-09-17] MEDS: Vancomycin 1.5gm/NS Premix 275 ML IVPB SCH (10:32)
--- NOTE | 2019-09-17 11:27 | Pulmonolgy Critical Care Note ---
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 (7) ATN (acute tubular necrosis) Respiratory: monitor respiratory rate, adjust FIO2, CXR Cardiac: continue to monitor HR/BP Renal: F/U I&O Infectious Disease: check cultures Gastrointestinal: continue feedings/current rate Endocrine: monitor blood sugar Hematologic: monitor H/H, transfuse if hgb<8.5 Neurologic: PRN Ativan, PRN Morphine, keep patient comfortable Affect: PRN ativan Prophylaxis: Protonix, Heparin Time Spent (Minutes): 40 Notes Reviewed: cardio, renal, ID, GI Discussed with: nurses, consultants, housing case managerbiodiesel division manager - Objective Last 24 Hour Vital Signs Date Time Temp Pulse Resp B/P (MAP) Pulse Ox O2 Delivery O2 Flow Rate FiO2 09/17/19 09:00 101 18 30 09/17/19 08:00 97.5 100 17 127/81 (96) 100 09/17/19 08:00 Mechanical Ventilator 09/17/19 08:00 101 09/17/19 08:00 30 09/17/19 06:52 101 20 30 09/17/19 05:24 95 17 30 09/17/19 04:00 97.9 93 18 122/81 (95) 100 09/17/19 04:00 91 09/17/19 04:00 Mechanical Ventilator 09/17/19 04:00 30 09/17/19 03:40 95 18 30 09/17/19 01:03 88 19 30 09/17/19 00:00 97.9 93 18 125/80 (95) 100 09/17/19 00:00 92 09/17/19 00:00 Mechanical Ventilator 09/17/19 00:00 30 09/16/19 23:16 106 19 30 09/16/19 21:09 99 19 30 09/16/19 20:00 Mechanical Ventilator 09/16/19 20:00 30 09/16/19 20:00 98.8 95 17 133/79 (97) 100 09/16/19 19:35 94 09/16/19 19:22 104 16 30 09/16/19 18:00 98.1 94 17 110/73 (85) 100 09/16/19 17:00 96 16 120/72 (88) 100 09/16/19 16:30 102 16 30 09/16/19 16:00 Mechanical Ventilator 09/16/19 16:00 98.0 98 16 115/71 (86) 100 09/16/19 16:00 103 09/16/19 16:00 30 09/16/19 15:00 97 16 114/74 (87) 100 09/16/19 14:45 99 16 30 09/16/19 14:00 99 17 113/75 (88) 100 09/16/19 13:00 96 17 111/74 (86) 100 09/16/19 12:30 95 16 30 09/16/19 12:00 95 09/16/19 12:00 97.5 95 17 125/81 (96) 100 09/16/19 12:00 Mechanical Ventilator 09/16/19 12:00 30 Status: obtunded Condition: critical HEENT: atraumatic Lungs: rales, rhonchi Heart: HR/BP stable Abdomen: soft, active bowel sounds, feeding tube Extremities: edema Decubiti: stage Micro: Microbiology Date/Time Source Procedure Growth Status 09/15/19 11:00 Nasal Nares - Final Complete 09/15/19 11:00 Nasal Nares - Final Complete 09/14/19 16:45 Sputum Gram Stain - Final Resulted 09/14/19 16:45 Sputum Culture - Preliminary Gram Negative Bacillus 1 Gram Negative Bacillus 2 Resulted 09/16/19 03:00 Urine,Clean Catch Urine Culture - Preliminary Resulted 09/14/19 16:45 Urine,Clean Catch Urine Culture - Preliminary YEAST Resulted Accucheck: 191 Critical Care - Subjective ROS Limited/Unobtainable: Yes Condition: critical EKG Rhythm: Sinus Rhythm FI02: 30 Vent Support Breath Rate: 16 Vent Support Mode: AC Vent Tidal Volume: 600 Sputum Amount: Moderate PEEP: 5.0 PIP: 27 Tube Feeding Amount: 100 I&O: Intake and Output 09/16/19 09/17/19 19:00 07:00 Intake Total 1630.0 ml 805 ml Output Total 235 ml 400 ml Balance 1395.0 ml 405 ml IV Total 430.0 ml 255 ml Tube Feeding 1200 ml 300 ml Blood Product 250 ml Output Urine Total 110 ml 350 ml Stool Total 125 ml 50 ml CXR: cxr clear Labs: Laboratory Tests Test 09/17/19 04:50 09/17/19 08:25 White Blood Count 11.5 K/UL (4.8-10.8) H Red Blood Count 2.77 M/UL (4.70-6.10) L Hemoglobin 8.2 G/DL (14.2-18.0) L Hematocrit 25.8 % (42.0-52.0) L Mean Corpuscular Volume 93 FL (80-99) Mean Corpuscular Hemoglobin 29.5 PG (27.0-31.0) Mean Corpuscular Hemoglobin Concent 31.7 G/DL (32.0-36.0) L Red Cell Distribution Width 17.4 % (11.6-14.8) H Platelet Count 253 K/UL (150-450) Mean Platelet Volume 9.0 FL (6.5-10.1) Neutrophils (%) (Auto) 68.8 % (45.0-75.0) Lymphocytes (%) (Auto) 8.6 % (20.0-45.0) L Monocytes (%) (Auto) 4.8 % (1.0-10.0) Eosinophils (%) (Auto) 16.7 % (0.0-3.0) H Basophils (%) (Auto) 1.1 % (0.0-2.0) Prothrombin Time 11.4 SEC (9.30-11.50) Prothromb Time International Ratio 1.1 (0.9-1.1) Activated Partial Thromboplast Time 25 SEC (23-33) Sodium Level 153 MMOL/L (136-145) H Potassium Level 3.0 MMOL/L (3.5-5.1) L Chloride Level 118 MMOL/L (98-107) H Carbon Dioxide Level 19 MMOL/L (21-32) L Anion Gap 16 mmol/L (5-15) H Blood Urea Nitrogen 21 mg/dL (7-18) H Creatinine 1.0 MG/DL (0.55-1.30) Estimat Glomerular Filtration Rate > 60 mL/min (>60) Glucose Level 199 MG/DL (74-106) H Calcium Level 10.2 MG/DL (8.5-10.1) H Vancomycin Level Trough 17.5 ug/mL (5.0-12.0) H Nico Goetz MD Sep 17, 2019 11:27
--- NOTE | 2019-09-17 14:19 | Urology Progress Note ---
Assessment/Plan Assessment/Plan: 1. Urinary retention. 2. BPH. 3. Neurogenic bladder. 4. Incontinence. 5. Pyuria. 6. Hematuria. 7. Proteinuria. 8. Renal insufficiency, acute possibly on chronic. 9. Renal cyst. 10. Nephrolithiasis. monitor clinically abx as ordered f/u on cx's plan cysto/urethrotomy today to place kendrick d/w pt's fully consent obtained has been NPO transfused Subjective Allergies: Coded Allergies: AZTREONAM (Verified Allergy, Unknown, 05/13/18) Subjective all noted, urinary incontinence, blood-tinged urine reported, transfused Objective Last 24 Hour Vital Signs Date Time Temp Pulse Resp B/P (MAP) Pulse Ox O2 Delivery O2 Flow Rate FiO2 09/17/19 13:15 101 17 30 09/17/19 12:00 Mechanical Ventilator 09/17/19 12:00 113 09/17/19 12:00 30 09/17/19 12:00 97.9 102 18 115/75 (88) 100 09/17/19 11:28 103 19 30 09/17/19 09:00 101 18 30 09/17/19 08:00 97.5 100 17 127/81 (96) 100 09/17/19 08:00 Mechanical Ventilator 09/17/19 08:00 101 09/17/19 08:00 30 09/17/19 06:52 101 20 30 09/17/19 05:24 95 17 30 09/17/19 04:00 97.9 93 18 122/81 (95) 100 09/17/19 04:00 91 09/17/19 04:00 Mechanical Ventilator 09/17/19 04:00 30 09/17/19 03:40 95 18 30 09/17/19 01:03 88 19 30 09/17/19 00:00 97.9 93 18 125/80 (95) 100 09/17/19 00:00 92 09/17/19 00:00 Mechanical Ventilator 09/17/19 00:00 30 09/16/19 23:16 106 19 30 09/16/19 21:09 99 19 30 09/16/19 20:00 Mechanical Ventilator 09/16/19 20:00 30 09/16/19 20:00 98.8 95 17 133/79 (97) 100 09/16/19 19:35 94 09/16/19 19:22 104 16 30 09/16/19 18:00 98.1 94 17 110/73 (85) 100 09/16/19 17:00 96 16 120/72 (88) 100 09/16/19 16:30 102 16 30 09/16/19 16:00 Mechanical Ventilator 09/16/19 16:00 98.0 98 16 115/71 (86) 100 09/16/19 16:00 103 09/16/19 16:00 30 09/16/19 15:00 97 16 114/74 (87) 100 09/16/19 14:45 99 16 30 Intake and Output 09/16/19 09/17/19 18:59 06:59 Intake Total 1630.0 ml 905 ml Output Total 235 ml 400 ml Balance 1395.0 ml 505 ml IV Total 430.0 ml 255 ml Tube Feeding 1200 ml 400 ml Blood Product 250 ml Output Urine Total 110 ml 350 ml Stool Total 125 ml 50 ml Microbiology Date/Time Source Procedure Growth Status 09/14/19 09:15 Blood Blood Culture - Preliminary NO GROWTH AFTER 48 HOURS Resulted 09/15/19 11:00 Nasal Nares - Final Complete 09/15/19 11:00 Nasal Nares - Final Complete 09/16/19 03:00 Urine,Clean Catch Urine Culture - Preliminary Resulted 09/14/19 09:10 Rectum VRE Culture - Final Enterococcus Faecium - Vre Complete Current Medications Medications (Trade) Dose Ordered Sig/Va Route PRN Reason Start Time Stop Time Status Last Admin Dose Admin Acetaminophen (Tylenol) 650 mg Q4H PRN GT Mild Pain/Temp > 100.6 09/16/19 18:42 10/16/19 18:41 Albuterol/ Ipratropium (Albuterol/ Ipratropium) 3 ml Q2H PRN HHN Shortness of Breath 09/16/19 18:45 09/19/19 14:44 Artificial Tears (Akwa-Tears) 2 drop Q12HR BOTH EYES 09/16/19 21:00 10/14/19 20:59 09/17/19 10:08 Baclofen (Lioresal) 10 mg THREE TIMES A DAY GT 09/17/19 09:00 10/14/19 17:59 09/17/19 10:10 Clobetasol Propionate (Temovate) 1 applic EVERY 12 HOURS TOPIC 09/16/19 21:00 10/14/19 20:59 09/17/19 10:09 Dextrose (Dextrose 50%) 25 ml Q30M PRN IV Hypoglycemia 09/16/19 18:45 10/14/19 14:44 Dextrose (Dextrose 50%) 50 ml Q30M PRN IV Hypoglycemia 09/16/19 18:45 10/14/19 14:44 Fenofibrate (Tricor) 145 mg DAILY ORAL 09/17/19 09:00 10/15/19 08:59 09/17/19 10:10 Heparin Sodium (Porcine) (Heparin 5000 units/ml) 5,000 units EVERY 12 HOURS SUBQ 09/16/19 21:00 10/14/19 20:59 Insulin Aspart (NovoLOG) BEFORE MEALS AND HS SUBQ 09/16/19 21:00 10/14/19 16:29 Levetiracetam 100 ml @ 400 mls/hr Q8HR IVPB 09/16/19 22:00 10/14/19 21:59 09/17/19 05:34 Lorazepam (Ativan 2mg/ml 1ml) 2 mg Q2H PRN IV For Anxiety 09/16/19 18:43 09/23/19 18:42 Meropenem 1 gm/ Sodium Chloride 55 ml @ 110 mls/hr Q12HR IVPB 09/16/19 21:00 09/19/19 20:59 09/17/19 10:31 Morphine Sulfate (Morphine Sulfate) 4 mg Q4H PRN IVP Severe Pain (Pain Scale 7-10) 09/16/19 18:44 09/23/19 18:43 Ondansetron HCl (Zofran) 4 mg Q6H PRN IVP Nausea & Vomiting 09/16/19 18:44 10/16/19 18:43 Pantoprazole (Protonix) 40 mg DAILY IV 09/17/19 09:00 10/15/19 08:59 09/17/19 10:09 Polyethylene Glycol (Miralax) 17 gm DAILYPRN PRN GT Constipation 09/16/19 18:44 10/16/19 18:43 Potassium Chloride (K-Dur) 40 meq TWICE A DAY ORAL 09/17/19 09:00 09/17/19 23:00 09/17/19 10:11 Sitagliptin Phosphate (Januvia) 50 mg ACBREAKFAST GT 09/17/19 06:30 10/15/19 06:29 09/17/19 05:54 Tamsulosin HCl (Flomax) 0.4 mg DAILY ORAL 09/17/19 09:00 10/17/19 08:59 09/17/19 10:10 Vancomycin HCl (Vanco rx to dose) 1 ea DAILY PRN MISC . 09/17/19 09:00 10/14/19 15:59 Vancomycin/Sodium Chloride 275 ml @ 137.5 mls/ hr Q24H IVPB 09/17/19 09:00 09/20/19 08:59 09/17/19 10:32 Laboratory Tests 09/17/19 04:50: White Blood Count 11.5H, Red Blood Count 2.77L, Hemoglobin 8.2L, Hematocrit 25.8L, Mean Corpuscular Volume 93, Mean Corpuscular Hemoglobin 29.5, Mean Corpuscular Hemoglobin Concent 31.7L, Red Cell Distribution Width 17.4H, Platelet Count 253, Mean Platelet Volume 9.0, Neutrophils (%) (Auto) 68.8, Lymphocytes (%) (Auto) 8.6L, Monocytes (%) (Auto) 4.8, Eosinophils (%) (Auto) 16.7H, Basophils (%) (Auto) 1.1, Prothrombin Time 11.4, Prothromb Time International Ratio 1.1, Activated Partial Thromboplast Time 25, Sodium Level 153H, Potassium Level 3.0L, Chloride Level 118H, Carbon Dioxide Level 19L, Anion Gap 16H, Blood Urea Nitrogen 21H, Creatinine 1.0, Estimat Glomerular Filtration Rate > 60, Glucose Level 199H, Calcium Level 10.2H 09/17/19 08:25: Vancomycin Level Trough 17.5H Height (Feet): 5 Height (Inches): 7.00 Weight (Pounds): 183 Objective exam stable Manohar Villarreal MD Sep 17, 2019 14:19
--- NOTE | 2019-09-17 16:35 | Anethesia Preoperative Eval ---
Anesthesia Pre-op PMH/ROS General Date of Evaluation: Sep 17, 2019 Time of Evaluation: 16:25 Anesthesiologist: orville ASA Score: ASA 3 Mallampati Score Class I : Soft palate, uvula, fauces, pillars visible Class II: Soft palate, uvula, fauces visible Class III: Soft palate, base of uvula visible Class IV: Only hard plate visible Mallampati Classification: Class IV Surgeon: Phil Diagnosis: urethral Stricture Surgical Procedure: cystoscopy Anesthesia History: none Family History: no anesthesia problems Allergies: Coded Allergies: AZTREONAM (Verified Allergy, Unknown, 05/13/18) Patient NPO?: Yes NPO Date: Sep 17, 2019 NPO Time: 0000 Past Medical History Cardiovascular: Reports: HTN Pulmonary: Denies: asthma, COPD, MITZI, other Gastrointestinal/Genitourinary: Denies: GERD, CRI, ESRD, other Neurologic/Psychiatric: Reports: dementia, other - BPH Endocrine: Reports: DM; Denies: hypothyroidism, steroids, other HEENT: Denies: cataract (L), cataract (R), glaucoma, [place] (L), [place] (R), other Hematology/Immune: Reports: anemia; Denies: DVT, bleeding disorder, other Musculoskeletal/Integumentary: Denies: OA, RA, DJD, DDD, edema, other PMH Narrative: history of intracerebral hemorrhage, history of craniotomy, 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 PSxH Narrative: craniotomy; s/p bleed Anesthesia Pre-op Phys. Exam Physician Exam Last Vital Signs Date Time Temp Pulse Resp B/P (MAP) Pulse Ox O2 Delivery O2 Flow Rate FiO2 09/17/19 15:09 101 19 30 09/17/19 12:00 Mechanical Ventilator 09/17/19 12:00 97.9 115/75 (88) 100 09/14/19 12:22 60.0 Constitutional: NAD Neurologic: other - consent obtained from next of kin;vegetative state Cardiovascular: RRR Respiratory: CTA - rochi; trached; artifically ventilated, other Gastrointestinal: S/NT/ND Airway Exam Mallampati Classification na Mallampati Score: Class III MO: limited ROM: limited Dentures: no upper, no lower Anesthesia Pre-op A/P Labs Hematology Test 09/17/19 04:50 White Blood Count 11.5 K/UL (4.8-10.8) H Red Blood Count 2.77 M/UL (4.70-6.10) L Hemoglobin 8.2 G/DL (14.2-18.0) L Hematocrit 25.8 % (42.0-52.0) L Mean Corpuscular Volume 93 FL (80-99) Mean Corpuscular Hemoglobin 29.5 PG (27.0-31.0) Mean Corpuscular Hemoglobin Concent 31.7 G/DL (32.0-36.0) L Red Cell Distribution Width 17.4 % (11.6-14.8) H Platelet Count 253 K/UL (150-450) Mean Platelet Volume 9.0 FL (6.5-10.1) Neutrophils (%) (Auto) 68.8 % (45.0-75.0) Lymphocytes (%) (Auto) 8.6 % (20.0-45.0) L Monocytes (%) (Auto) 4.8 % (1.0-10.0) Eosinophils (%) (Auto) 16.7 % (0.0-3.0) H Basophils (%) (Auto) 1.1 % (0.0-2.0) Coagulation Test 09/17/19 04:50 Prothrombin Time 11.4 SEC (9.30-11.50) Prothromb Time International Ratio 1.1 (0.9-1.1) Activated Partial Thromboplast Time 25 SEC (23-33) Chemistry Test 09/17/19 04:50 Sodium Level 153 MMOL/L (136-145) H Potassium Level 3.0 MMOL/L (3.5-5.1) L Chloride Level 118 MMOL/L (98-107) H Carbon Dioxide Level 19 MMOL/L (21-32) L Anion Gap 16 mmol/L (5-15) H Blood Urea Nitrogen 21 mg/dL (7-18) H Creatinine 1.0 MG/DL (0.55-1.30) Estimat Glomerular Filtration Rate > 60 mL/min (>60) Glucose Level 199 MG/DL (74-106) H Calcium Level 10.2 MG/DL (8.5-10.1) H Studies Pre-op Studies: EKG Risk Assessment & Plan Assessment: see H&P Plan: general Status Change Before Surgery: No Pre-Antibiotics Drug: Claudia Sanderson CRNA Sep 17, 2019 16:35
--- NOTE | 2019-09-17 16:35 | Pre-Procedure Note/Attestation ---
Pre-Procedure Note/Attestation Complete Prior to Procedure Planned Procedure: not applicable Procedure Narrative: cysto, optic urethrotomy, possible suprapubic tube placement Indications for Procedure Pre-Operative Diagnosis: urinary retention, urethral stricture Attestation I attest that I discussed the nature of the procedure; its benefits; risks and complications; and alternatives (and the risks and benefits of such alternatives ), prior to the procedure, with the patient (or the patient's legal support representative). I attest that, if there was a reasonable possibility of needing a blood transfusion, the patient (or the patient's legal support representative) was given the [facility] standardized written summary, pursuant to the [place] Blood Safety Act ([place] Health and Safety Code # 1645, as amended). I attest that I re-evaluated the patient just prior to the surgery and that there has been no change in the patient's H&P, except as documented below: Manohar Villarreal MD Sep 17, 2019 16:35
--- NOTE | 2019-09-17 16:48 | Infectious Diseases Prog Note ---
Assessment/Plan Assessment/Plan Assessment: Severe Sepsis- likely 2ry to UTI- r/o PNA -Bcx NTD -u/a wbc tnct, nit neg, leuk +3; ucx yeast -sp cx GNR #1, #2 -CXR: Geographic density overlying the right upper lung. This likely represents overlying soft tissue although cannot exclude an underlying consolidation/pneumonia. Pulmonary vascular congestion. Small left pleural effusion. Subsegmental atelectasis versus infiltrate in the left lung base. -Influenza A/B ag neg Fever, SP Leukocytosis, improving DIVYA, improving Mild AST elevation, SP -Abd uS: Hepatomegaly with fatty infiltration. Suspected nonobstructive stone left kidney. Left renal cyst Sacral decubitus hx of recurrent UTIs -UCx 11/17/18 P.a. (R Levo, otherwise S) - CT abd 11/19/18 3 mm distal right ureteral calculus, minimal resultant hydronephrosis. Atrophic left kidney, containing a large staghorn calculus and multiple intrarenal calyceal calculi, previously described UCx 11/23/18 - Enterobacter (S Cefepime) and yeast and Pa HTN CKD ICH s/p craniotomy and [facility] shunt now w/ persistent vegetative state dysphagia s/p GT Chronic resp failure - vent/trach dependent ICH COPD DM Seizure disorder BPH Dysphagia, G tube Colostomy SNF resident Plan: -D/c empiric IV Vancomycin #4 -Continue empiric Meropenem #4 pending cultures -09/14 SP Cefepime x1 -f/u cx -Monitor CBC/CMP, temperatures -PEG/Trach/ICU care -aspiration precautions -wound care Thank you for this consultation. Will continue to follow along with you. Discussed with RN Subjective Allergies: Coded Allergies: AZTREONAM (Verified Allergy, Unknown, 05/13/18) Subjective afebrile in >72hrs wbc and Cr improving BCx NTD Objective Vital Signs Last 24 Hour Vital Signs Date Time Temp Pulse Resp B/P (MAP) Pulse Ox O2 Delivery O2 Flow Rate FiO2 09/17/19 15:09 101 19 30 09/17/19 13:15 101 17 30 09/17/19 12:00 Mechanical Ventilator 09/17/19 12:00 113 09/17/19 12:00 30 09/17/19 12:00 97.9 102 18 115/75 (88) 100 09/17/19 11:28 103 19 30 09/17/19 09:00 101 18 30 09/17/19 08:00 97.5 100 17 127/81 (96) 100 09/17/19 08:00 Mechanical Ventilator 09/17/19 08:00 101 09/17/19 08:00 30 09/17/19 06:52 101 20 30 09/17/19 05:24 95 17 30 09/17/19 04:00 97.9 93 18 122/81 (95) 100 09/17/19 04:00 91 09/17/19 04:00 Mechanical Ventilator 09/17/19 04:00 30 09/17/19 03:40 95 18 30 09/17/19 01:03 88 19 30 09/17/19 00:00 97.9 93 18 125/80 (95) 100 09/17/19 00:00 92 09/17/19 00:00 Mechanical Ventilator 09/17/19 00:00 30 09/16/19 23:16 106 19 30 09/16/19 21:09 99 19 30 09/16/19 20:00 Mechanical Ventilator 09/16/19 20:00 30 09/16/19 20:00 98.8 95 17 133/79 (97) 100 09/16/19 19:35 94 09/16/19 19:22 104 16 30 09/16/19 18:00 98.1 94 17 110/73 (85) 100 09/16/19 17:00 96 16 120/72 (88) 100 Height (Feet): 5 Height (Inches): 7.00 Weight (Pounds): 183 Objective GENERAL: Noncommunicative. Tongue fasciculation. Moderate edema. LUNGS: Diminished breath sounds. CARDIAC: Regular rhythm. Rapid rate. Normal S1, S2. ABDOMEN: Soft with G-tube and colostomy bag. Microbiology Date/Time Source Procedure Growth Status 09/15/19 11:00 Nasal Nares - Final Complete 09/15/19 11:00 Nasal Nares - Final Complete 09/16/19 03:00 Urine,Clean Catch Urine Culture - Preliminary Resulted Laboratory Tests Test 09/17/19 04:50 09/17/19 08:25 White Blood Count 11.5 K/UL (4.8-10.8) H Red Blood Count 2.77 M/UL (4.70-6.10) L Hemoglobin 8.2 G/DL (14.2-18.0) L Hematocrit 25.8 % (42.0-52.0) L Mean Corpuscular Volume 93 FL (80-99) Mean Corpuscular Hemoglobin 29.5 PG (27.0-31.0) Mean Corpuscular Hemoglobin Concent 31.7 G/DL (32.0-36.0) L Red Cell Distribution Width 17.4 % (11.6-14.8) H Platelet Count 253 K/UL (150-450) Mean Platelet Volume 9.0 FL (6.5-10.1) Neutrophils (%) (Auto) 68.8 % (45.0-75.0) Lymphocytes (%) (Auto) 8.6 % (20.0-45.0) L Monocytes (%) (Auto) 4.8 % (1.0-10.0) Eosinophils (%) (Auto) 16.7 % (0.0-3.0) H Basophils (%) (Auto) 1.1 % (0.0-2.0) Prothrombin Time 11.4 SEC (9.30-11.50) Prothromb Time International Ratio 1.1 (0.9-1.1) Activated Partial Thromboplast Time 25 SEC (23-33) Sodium Level 153 MMOL/L (136-145) H Potassium Level 3.0 MMOL/L (3.5-5.1) L Chloride Level 118 MMOL/L (98-107) H Carbon Dioxide Level 19 MMOL/L (21-32) L Anion Gap 16 mmol/L (5-15) H Blood Urea Nitrogen 21 mg/dL (7-18) H Creatinine 1.0 MG/DL (0.55-1.30) Estimat Glomerular Filtration Rate > 60 mL/min (>60) Glucose Level 199 MG/DL (74-106) H Calcium Level 10.2 MG/DL (8.5-10.1) H Vancomycin Level Trough 17.5 ug/mL (5.0-12.0) H Current Medications Medications (Trade) Dose Ordered Sig/Va Route PRN Reason Start Time Stop Time Status Last Admin Dose Admin Acetaminophen (Tylenol) 650 mg Q4H PRN GT Mild Pain/Temp > 100.6 09/16/19 18:42 10/16/19 18:41 Albuterol/ Ipratropium (Albuterol/ Ipratropium) 3 ml Q2H PRN HHN Shortness of Breath 09/16/19 18:45 09/19/19 14:44 Artificial Tears (Akwa-Tears) 2 drop Q12HR BOTH EYES 09/16/19 21:00 10/14/19 20:59 09/17/19 10:08 Baclofen (Lioresal) 10 mg THREE TIMES A DAY GT 09/17/19 09:00 10/14/19 17:59 09/17/19 10:10 Clobetasol Propionate (Temovate) 1 applic EVERY 12 HOURS TOPIC 09/16/19 21:00 10/14/19 20:59 09/17/19 10:09 Dextrose (Dextrose 50%) 25 ml Q30M PRN IV Hypoglycemia 09/16/19 18:45 10/14/19 14:44 Dextrose (Dextrose 50%) 50 ml Q30M PRN IV Hypoglycemia 09/16/19 18:45 10/14/19 14:44 Fenofibrate (Tricor) 145 mg DAILY ORAL 09/17/19 09:00 10/15/19 08:59 09/17/19 10:10 Heparin Sodium (Porcine) (Heparin 5000 units/ml) 5,000 units EVERY 12 HOURS SUBQ 09/16/19 21:00 10/14/19 20:59 Insulin Aspart (NovoLOG) BEFORE MEALS AND HS SUBQ 09/16/19 21:00 10/14/19 16:29 Levetiracetam 100 ml @ 400 mls/hr Q8HR@0100,0900,1700 IVPB 09/17/19 17:00 10/17/19 16:59 Lorazepam (Ativan 2mg/ml 1ml) 2 mg Q2H PRN IV For Anxiety 09/16/19 18:43 09/23/19 18:42 Meropenem 1 gm/ Sodium Chloride 55 ml @ 110 mls/hr Q12HR IVPB 09/16/19 21:00 09/19/19 20:59 09/17/19 10:31 Morphine Sulfate (Morphine Sulfate) 4 mg Q4H PRN IVP Severe Pain (Pain Scale 7-10) 09/16/19 18:44 09/23/19 18:43 Ondansetron HCl (Zofran) 4 mg Q6H PRN IVP Nausea & Vomiting 09/16/19 18:44 10/16/19 18:43 Pantoprazole (Protonix) 40 mg DAILY IV 09/17/19 09:00 10/15/19 08:59 09/17/19 10:09 Polyethylene Glycol (Miralax) 17 gm DAILYPRN PRN GT Constipation 09/16/19 18:44 10/16/19 18:43 Potassium Chloride (K-Dur) 40 meq TWICE A DAY ORAL 09/17/19 09:00 09/17/19 23:00 09/17/19 10:11 Sitagliptin Phosphate (Januvia) 50 mg ACBREAKFAST GT 09/17/19 06:30 10/15/19 06:29 09/17/19 05:54 Tamsulosin HCl (Flomax) 0.4 mg DAILY ORAL 09/17/19 09:00 10/17/19 08:59 09/17/19 10:10 Vancomycin HCl (Vanco rx to dose) 1 ea DAILY PRN MISC . 09/17/19 09:00 10/14/19 15:59 Vancomycin/Sodium Chloride 275 ml @ 137.5 mls/ hr Q24H IVPB 09/17/19 09:00 09/20/19 08:59 09/17/19 10:32 Maribel Barrera M.D. Sep 17, 2019 16:48
[2019-09-17] MEDS ORDERED: NS Irrig 1000ml ONE (17:00)
[2019-09-17] MEDS ORDERED: fentaNYL 100 mcg/2 mL IV ONE ×2 (17:05→17:38)
[2019-09-17] MEDS ORDERED: Sterile Water For Irrig 2000ml IRRIG ONE (17:42)
[2019-09-17] MEDS ORDERED: Metoprolol Tartrate 5mg/5ml Inj ONE (17:59)
--- NOTE | 2019-09-17 18:16 | Brief Operative Note ---
Immediate Post Operative Note Operative Note Pre-op Diagnosis: urinary retention, urethral stricture Post-op Diagnosis: same as pre-op Findings: other - dense bulbar urethral or prostatic fossa stricture Surgeon: ventura Anesthesiologist: kade Anesthesia: general Specimen: none Complications: none Condition: stable Fluids: NS Estimated Blood Loss: minimal Drains: none Implant(s) used?: No Manohar Villarreal MD Sep 17, 2019 18:16
--- NOTE | 2019-09-17 18:19 | Immediate Post-Op Evaluation ---
Immediate Post-Op Evalulation Immediate Post-Op Evalulation Procedure: cystoscopy; kendrick placement Date of Evaluation: Sep 17, 2019 Time of Evaluation: 18:18 IV Fluids: 800 Blood Pressure Systolic: 118 Blood Pressure Diastolic: 60 Pulse Rate: 95 Respiratory Rate: 14 O2 Sat by Pulse Oximetry: 99 Nausea: No Vomiting: No Complications none; Patient Status: reacts, patent, ventilated - SIMV 100% 600 9 in the OR, none - recovered in OR by PACU RNs due to Scabies Preacution Hydration Status: adequate Drug: declined Claudia Zamora FIRE EATER Sep 17, 2019 18:19
--- NOTE | 2019-09-17 21:30 | Electroencephalogram ---
DATE OF PROCEDURE: 09/16/2019 EEG REPORT REQUESTING PHYSICIANS: Kali Melgar M.D. & Sariah Bhat M.D. HISTORY: This EEG was performed on a 54-year-old gentleman with a history of significant head trauma and multiple other medical problems who was hospitalized for an alteration in mental state. The purpose of this EEG was to evaluate the patient for the degree and type of cerebral dysfunction. TECHNICAL NOTE: This EEG was performed on a [employer] with electrodes placed on the scalp according to the International 10-20 system. [id number] and [id number] montages were used. The EEG was technically satisfactory and was performed while the patient was in a poorly responsive state. OBSERVATIONS: In the poorly responsive state, the background activity consisted of low amplitude, 4-5 Hz theta and 1.5-2 Hz delta activity. Triphasic waveforms were also seen throughout the tracing. Activity was lower in amplitude and slightly slower over the right hemisphere compared to the left hemisphere. No epileptiform discharges were seen. IMPRESSION: This is an abnormal EEG characterized by: 1. A low amplitude slow background in the 4-5 Hz theta and 1.5-2 Hz delta range. 2. Lower amplitude activity and slower frequencies over the right hemisphere compared to the left. 3. Triphasic waveforms with an anterior to posterior gradient seen from time to time. COMMENT: The study is consistent with: 1. An encephalopathy of a moderate degree, most probably with a toxic metabolic component as evidenced by the triphasic waveforms. 2. Right worse than left brain dysfunction. Please note that no interictal discharges were seen during this EEG in spite of the patient having lingual movements throughout the tracing. Clinical correlation is recommended. Carlos Enrique Berrios M.D., M.S.P.H. DR: ELLY JOB#: [id number]
--- NOTE | 2019-09-17 21:45 | Operative Note - Dictated ---
DATE OF OPERATION: 09/17/2019 PREOPERATIVE DIAGNOSES: 1. History of sepsis. 2. Urinary retention. 3. Difficult catheterization. 4. Urethral stricture. POSTOPERATIVE DIAGNOSES: 1. History of sepsis. 2. Urinary retention. 3. Difficult catheterization. 4. Urethral stricture. PROCEDURE PERFORMED: 1. Cystoscopy. 2. Urethral dilation. 3. Optical urethrotomy. 4. Placement of Newberry catheter. OPERATING SURGEON: Manohar Villarreal M.D. ANESTHESIOLOGIST: . ANESTHESIA: General. INDICATION FOR PROCEDURE: This is an unfortunate 54-year-old male. He is a resident of a shelter. He has encephalopathy, was admitted with fevers and sepsis. He was noted to have a high bladder scan volume of 500 mL. The nursing staff were not able to place a Newberry catheter. I was also not able to place a Newberry. He was noted to have a dense urethral stricture. He also did have mild renal insufficiency, which was improving, however, request was made to place a Newberry catheter and as such, he was scheduled for the above procedure. I am not able to get consent from the patient. I did speak with the patient's and consent was obtained. Possible risks and complications were discussed, no guarantees were implied. FINDINGS: The patient had a very dense, what appeared to be a stricture in the bulbar urethra near the sphincter, possibly the prostatic floor anatomy was very irregular. PROCEDURE IN DETAIL: Informed consent was obtained from the patient's . The patient was brought to the hospital and then placed in supine position. After successful general anesthesia was administered, the patient was placed in modified dorsal lithotomy position. His genitalia was then prepped and draped in the usual fashion. Preoperative IV antibiotics were administered. A time-out was performed. The urethral meatus just was dilated. Cystoscopy was then performed. The distal urethra was normal, however, proximally what appeared to be close to the external sphincter or possibly within the prostate was very difficult to tell because the whole anatomy was irregular. There was a very dense stricture. I would estimate it was about maybe 6 to 8-Georgian, I was able to pass a wire through this. I was not able to pass the scope over the wire. At this point, the urethra tome was inserted and with a cold knife, the stricture was opened at the 6 and 12 o'clock position. It was opened widely and was able to push again into the bladder. Again, I did not see any significant prostatic tissue blockage. The bladder was trabeculated with significant debris. The scope was removed and the stricture was again dilated with Vasquez sounds of the wire. A 30-Georgian and a 22-Georgian Councill tip catheter was passed over the wire into the bladder. It was in good position and irrigated well. The patient was awakened and was taken to the recovery room in stable condition. Blood loss is minimal. No complications. Manohar Villarreal M.D. DR: CHRIS JOB#: [id number] CC: Sariah Bhat M.D.; Fax#: [phone]
[2019-09-18] VITALS: BP 122/82
[2019-09-18] MEDS: levETIRAcetam 1,000mg/NS100ml 100 ML IVPB SCH ×3 (01:07→17:31)
[2019-09-18] MEDS: D5W w/KCl 20mEq 1,000 ML IV SCH ×3 (03:04→22:21)
--- NOTE | 2019-09-18 03:18 | Progress Note ---
DATE: 09/17/2019 CARDIOLOGY PROGRESS NOTE SUBJECTIVE: The patient is status post cystoscopy and urethral dilatation and Newberry catheter placement. Monitor sinus and sinus tachycardia. OBJECTIVE: VITAL SIGNS: Blood pressure 131/83, pulse 92, respiratory rate 18, and afebrile. HEENT: Tongue fasciculations or trach site with thin secretions. LUNGS: Bilateral rhonchi. HEART: Regular rhythm rate. Normal S1 and S2. ABDOMEN: Soft and mildly distended. EXTREMITIES: With dependent edema. LABORATORY DATA: White count 11.5 and hemoglobin 8.3. Potassium 3, sodium 153, bicarbonate 19, BUN 21, and creatinine 1. IMPRESSION: 1. Persistent hypernatremia, hypokalemia, and improved. 2. Renal failure. 3. Sepsis. 4. Urinary tract infection. 5. Seizure disorder. 6. Chronic encephalopathy. 7. Sinus tachycardia is hemodynamically appropriate. PLAN: 1. Continue hypotonic IV fluids. 2. Antimicrobials and other therapies as he has no additional cardiovascular medications presently indicated. Kali Melgar M.D. DR: MOE JOB#: [id number] CC:
--- NOTE | 2019-09-18 03:20 | Progress Note ---
DATE: 09/17/2019 SUBJECTIVE: Urology consultation was asked to assess the patient because of inability to insert Newberry catheter into the patient's bladder. discussed with the patient in detail and the patient will need to undergo surgery to improve his ureteral stenosis. Consent from the Surgery was obtained and the patient underwent today urological procedure. Procedure was uneventful. The patient tolerated the procedure well. The patient returned back to his unit bed, and his gastrostomy feeding has been resumed. PHYSICAL EXAMINATION: VITAL SIGNS: Blood pressure is 127/87, pulse is 89, respirations 20, and temperature is 97.6. HEENT: Eyes were normal. ENT, mucous membranes were moist and intact. NECK: Supple with no JVD without lymph nodes. Tracheostomy site is clean. LUNGS: Clear without rhonchi, rales, or wheezing. HEART: Normal sounds with regular beats. There is no tachycardia at rest. ABDOMEN: Soft, nontender with normal bowel sounds. Gastrostomy site is clean. EXTREMITIES: Warm without cyanosis, clubbing, or edema. LABORATORY DATA: His hemoglobin is 8.2, hematocrit 25.3 with MCV of 93, his WBC of 11.5, and platelets 253. His WBC was yesterday and . His BUN and creatinine are 21 and 1.0 respectively. Sodium is 153, potassium 3.0, chloride 118, CO2 19, and his calcium is 10.2. IMPRESSION: The patient has hypernatremia without prerenal azotemia. He is receiving via G-tube, 200 mL every four hours. PICC line insertion was done yesterday, and procedure was uneventful. Repeat laboratory tests will be done in the morning. We will continue the same IV antibiotics. Sariah Bhat M.D. DR: AUSTEN JOB#: [id number] CC:
[2019-09-18 03:55] VITALS: BP 118/81
[2019-09-18 05:10] LABS: BASOPHILS % (AUTO) 0.7 % (0.0-2.0); HEMATOCRIT 28.8 % (42.0-52.0); HEMOGLOBIN 9.2 G/DL (14.2-18.0); LYMPHOCYTES % (AUTO) 7.4 % (20.0-45.0); MEAN CORPUSCULAR VOLUME 93 FL (80-99); MONOCYTES % (AUTO) 4.8 % (1.0-10.0); NEUTROPHILS % (AUTO) 75.1 % (45.0-75.0); PLATELET COUNT 236 K/UL (150-450); RED BLOOD COUNT 3.09 M/UL (4.70-6.10); RED CELL DISTRIBUTION WIDTH 16.9 % (11.6-14.8); WHITE BLOOD COUNT 12.3 K/UL (4.8-10.8)
[2019-09-18] MEDS: sitaGLIPtin 50mg tab GT SCH (05:38)
[2019-09-18] MEDS: NovoLOG Insulin Flexpen SUBQ SCH ×4 (05:39→20:13)
[2019-09-18 05:50] LABS: ALANINE AMINOTRANSFERASE 26 U/L (12-78); ALBUMIN 2.4 G/DL (3.4-5.0); ALBUMIN/GLOBULIN RATIO 0.6 (1.0-2.7); ALKALINE PHOSPHATASE 52 U/L (46-116); ANION GAP 14 mmol/L (5-15); ASPARTATE AMINO TRANSFERASE 31 U/L (15-37); BILIRUBIN,TOTAL 0.4 MG/DL (0.2-1.0); BLOOD UREA NITROGEN 17 mg/dL (7-18); CARBON DIOXIDE 17 MMOL/L (21-32); CHLORIDE 121 MMOL/L (98-107); CHOLESTEROL 211 MG/DL (< 200); CREATININE 1.1 MG/DL (0.55-1.30); FERRITIN 1538 NG/ML (8-388); HDL CHOLESTEROL 20 MG/DL (40-60); POTASSIUM 3.6 MMOL/L (3.5-5.1); SODIUM 152 MMOL/L (136-145); TRIGLYCERIDES 838 MG/DL (30-150)
[2019-09-18 05:52] LABS: % IRON SATURATION 8 % (15-50); IRON 14 ug/dL (50-175); TOTAL IRON BINDING CAPACITY 170 ug/dL (250-450)
[2019-09-18 06:00] LABS: CREATINE KINASE 83 U/L (26-308); GAMMA GLUTAMYL TRANSPEPTIDASE 152 U/L (5-85); PHOSPHORUS 2.8 MG/DL (2.5-4.9)
[2019-09-18 08:00] VITALS: BP 115/73
--- NOTE | 2019-09-18 08:50 | Urology Progress Note ---
Assessment/Plan Assessment/Plan: 1. Urinary retention. 2. BPH. 3. Neurogenic bladder. 4. Incontinence. 5. Pyuria. 6. Hematuria. 7. Proteinuria. 8. Renal insufficiency, acute possibly on chronic. 9. Renal cyst. 10. Nephrolithiasis. 11. POD # 1, cysto/optic urethrotomy monitor clinically kendrick placed 09/17 hand irrigated and do PRN abx as ordered f/u on cx's Subjective Allergies: Coded Allergies: AZTREONAM (Verified Allergy, Unknown, 05/13/18) Subjective all noted, kendrick draining Objective Last 24 Hour Vital Signs Date Time Temp Pulse Resp B/P (MAP) Pulse Ox O2 Delivery O2 Flow Rate FiO2 09/18/19 08:00 98.2 98 18 115/73 (87) 100 09/18/19 08:00 30 09/18/19 07:16 97 18 30 09/18/19 05:15 90 21 30 09/18/19 04:00 Mechanical Ventilator 09/18/19 04:00 30 09/18/19 03:55 97.0 98 16 118/81 (93) 100 09/18/19 03:35 97 09/18/19 03:15 88 30 30 09/18/19 01:45 94 23 30 09/18/19 00:00 Mechanical Ventilator 09/18/19 00:00 96.4 92 18 122/82 (95) 100 09/18/19 00:00 30 09/17/19 23:46 139 09/17/19 22:45 92 21 30 09/17/19 21:19 90 18 30 09/17/19 20:00 Mechanical Ventilator 09/17/19 20:00 96.3 92 18 131/83 (99) 100 09/17/19 20:00 30 09/17/19 19:52 91 09/17/19 19:10 97.8 89 9 127/87 100 Mechanical Ventilator 30 09/17/19 18:55 88 9 129/87 100 Mechanical Ventilator 30 09/17/19 18:40 90 9 128/84 100 Mechanical Ventilator 30 09/17/19 18:25 93 9 129/84 100 Mechanical Ventilator 30 09/17/19 18:19 95 14 99 09/17/19 18:15 93 9 126/83 100 Mechanical Ventilator 30 09/17/19 18:05 97 11 119/81 100 Mechanical Ventilator 30 09/17/19 18:00 99 11 119/85 100 Mechanical Ventilator 30 09/17/19 17:57 97.6 97 10 119/81 100 Mechanical Ventilator 30 09/17/19 16:00 Mechanical Ventilator 09/17/19 16:00 30 09/17/19 16:00 99 09/17/19 16:00 98.6 102 18 123/75 (91) 100 09/17/19 15:09 101 19 30 09/17/19 13:15 101 17 30 09/17/19 12:00 Mechanical Ventilator 09/17/19 12:00 113 09/17/19 12:00 30 09/17/19 12:00 97.9 102 18 115/75 (88) 100 09/17/19 11:28 103 19 30 09/17/19 09:00 101 18 30 Intake and Output 09/17/19 09/18/19 19:00 07:00 Intake Total 350 ml 1981 ml Output Total 540 ml 800 ml Balance -190 ml 1181 ml Free Water 50 ml 400 ml IV Total 300 ml 1456 ml Tube Feeding 125 ml Output Urine Total 500 ml 400 ml Stool Total 40 ml 400 ml Microbiology Date/Time Source Procedure Growth Status 09/14/19 09:15 Blood Blood Culture - Preliminary NO GROWTH AFTER 72 HOURS Resulted 09/15/19 11:00 Nasal Nares - Final Complete 09/15/19 11:00 Nasal Nares - Final Complete 09/16/19 03:00 Urine,Clean Catch Urine Culture - Preliminary YEAST Resulted 09/14/19 09:10 Rectum VRE Culture - Final Enterococcus Faecium - Vre Complete Current Medications Medications (Trade) Dose Ordered Sig/Va Route PRN Reason Start Time Stop Time Status Last Admin Dose Admin Acetaminophen (Tylenol) 650 mg Q4H PRN GT Mild Pain/Temp > 100.6 09/16/19 18:42 10/16/19 18:41 Albuterol/ Ipratropium (Albuterol/ Ipratropium) 3 ml Q2H PRN HHN Shortness of Breath 09/16/19 18:45 09/19/19 14:44 Artificial Tears (Akwa-Tears) 2 drop Q12HR BOTH EYES 09/16/19 21:00 10/14/19 20:59 09/17/19 20:06 Baclofen (Lioresal) 10 mg THREE TIMES A DAY GT 09/17/19 09:00 10/14/19 17:59 09/17/19 20:07 Clobetasol Propionate (Temovate) 1 applic EVERY 12 HOURS TOPIC 09/16/19 21:00 10/14/19 20:59 09/17/19 20:06 Dextrose (Dextrose 50%) 25 ml Q30M PRN IV Hypoglycemia 09/16/19 18:45 10/14/19 14:44 Dextrose (Dextrose 50%) 50 ml Q30M PRN IV Hypoglycemia 09/16/19 18:45 10/14/19 14:44 Dextrose/ Electrolytes 1,000 ml @ 100 mls/hr Q10H IV 09/18/19 03:00 10/18/19 02:59 09/18/19 03:04 Fenofibrate (Tricor) 145 mg DAILY ORAL 09/17/19 09:00 10/15/19 08:59 09/17/19 10:10 Heparin Sodium (Porcine) (Heparin 5000 units/ml) 5,000 units EVERY 12 HOURS SUBQ 09/16/19 21:00 10/14/19 20:59 09/17/19 20:11 Insulin Aspart (NovoLOG) BEFORE MEALS AND HS SUBQ 09/16/19 21:00 10/14/19 16:29 09/18/19 05:39 Levetiracetam 100 ml @ 400 mls/hr Q8HR@0100,0900,1700 IVPB 09/17/19 17:00 10/17/19 16:59 09/18/19 01:07 Lorazepam (Ativan 2mg/ml 1ml) 2 mg Q2H PRN IV For Anxiety 09/16/19 18:43 09/23/19 18:42 Meropenem 1 gm/ Sodium Chloride 55 ml @ 110 mls/hr Q12HR IVPB 09/16/19 21:00 09/19/19 20:59 09/17/19 20:15 Morphine Sulfate (Morphine Sulfate) 4 mg Q4H PRN IVP Severe Pain (Pain Scale 7-10) 09/16/19 18:44 09/23/19 18:43 Ondansetron HCl (Zofran) 4 mg Q6H PRN IVP Nausea & Vomiting 09/16/19 18:44 10/16/19 18:43 Pantoprazole (Protonix) 40 mg DAILY IV 09/17/19 09:00 10/15/19 08:59 09/17/19 10:09 Polyethylene Glycol (Miralax) 17 gm DAILYPRN PRN GT Constipation 09/16/19 18:44 10/16/19 18:43 Sitagliptin Phosphate (Januvia) 50 mg ACBREAKFAST GT 09/17/19 06:30 10/15/19 06:29 09/18/19 05:38 Tamsulosin HCl (Flomax) 0.4 mg DAILY ORAL 09/17/19 09:00 10/17/19 08:59 09/17/19 10:10 Vancomycin HCl (Vanco rx to dose) 1 ea DAILY PRN MISC . 09/17/19 09:00 10/14/19 15:59 Vancomycin/Sodium Chloride 275 ml @ 137.5 mls/ hr Q24H IVPB 09/17/19 09:00 09/20/19 08:59 09/17/19 10:32 Laboratory Tests 09/18/19 04:30: White Blood Count 12.3H, Red Blood Count 3.09L, Hemoglobin 9.2L, Hematocrit 28.8L, Mean Corpuscular Volume 93, Mean Corpuscular Hemoglobin 29.8, Mean Corpuscular Hemoglobin Concent 32.0, Red Cell Distribution Width 16.9H, Platelet Count 236, Mean Platelet Volume 8.0, Neutrophils (%) (Auto) 75.1H, Lymphocytes (%) (Auto) 7.4L, Monocytes (%) (Auto) 4.8, Eosinophils (%) (Auto) 12.0H, Basophils (%) (Auto) 0.7, Sodium Level 152H, Potassium Level 3.6, Chloride Level 121H, Carbon Dioxide Level 17L, Anion Gap 14, Blood Urea Nitrogen 17, Creatinine 1.1, Estimat Glomerular Filtration Rate > 60, Glucose Level 234H, Hemoglobin A1c 6.0, Uric Acid 9.1H, Calcium Level 10.0, Phosphorus Level 2.8, Magnesium Level 1.8, Iron Level 14L, Total Iron Binding Capacity 170L , Percent Iron Saturation 8L, Unsaturated Iron Binding 156, Ferritin 1538H, Total Bilirubin 0.4, Gamma Glutamyl Transpeptidase 152H, Aspartate Amino Transf (AST/SGOT) 31, Alanine Aminotransferase (ALT/SGPT) 26, Alkaline Phosphatase 52, Total Creatine Kinase 83, C-Reactive Protein, Quantitative 13.0H, Pro-B-Type Natriuretic Peptide 394H, Total Protein 6.7, Albumin 2.4L, Globulin 4.3, Albumin /Globulin Ratio 0.6L, Triglycerides Level 838H, Cholesterol Level 211H, LDL Cholesterol 67, HDL Cholesterol 20L, Cholesterol/HDL Ratio 10.6H, Vitamin B12 Level 1063H, Folate 26.3, Thyroid Stimulating Hormone (TSH) 1.705 Height (Feet): 5 Height (Inches): 7.00 Weight (Pounds): 197 Objective exam stable kendrick indwelling, blood-tinged/hermelindo urine minimal bleeding at penile meatus Manohar Villarreal MD Sep 18, 2019 08:50
[2019-09-18] MEDS: Tamsulosin 0.4mg cap ORAL SCH (09:13)
[2019-09-18] MEDS: Meropenem 1 GM in NS 55 ML IVPB SCH ×2 (09:13→20:12)
[2019-09-18] MEDS: Pantoprazole Inj IV SCH (09:13)
[2019-09-18] MEDS: Clobetasol Cream 0.05% 15gm TOPIC SCH ×2 (09:14→20:12)
[2019-09-18] MEDS: Heparin 5000 units/ml inj SUBQ SCH ×2 (09:17→20:14)
--- NOTE | 2019-09-18 10:08 | Pulmonolgy Critical Care Note ---
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 (7) ATN (acute tubular necrosis) Respiratory: monitor respiratory rate, adjust FIO2, CXR Cardiac: continue to monitor HR/BP Renal: F/U I&O, keep IV fluid, check electrolytes Infectious Disease: check cultures, continue antibiotics Gastrointestinal: continue feedings/current rate Endocrine: monitor blood sugar, check TSH Hematologic: monitor H/H, transfuse if hgb<8.5 Neurologic: PRN Morphine, keep patient comfortable Prophylaxis: Protonix Notes Reviewed: dynamite reclaimer, cardio Discussed with: nurses, consultants, oil field caserfocused factory manager - Objective Last 24 Hour Vital Signs Date Time Temp Pulse Resp B/P (MAP) Pulse Ox O2 Delivery O2 Flow Rate FiO2 09/18/19 08:52 100 19 30 09/18/19 08:00 98.2 98 18 115/73 (87) 100 09/18/19 08:00 30 09/18/19 07:16 97 18 30 09/18/19 05:15 90 21 30 09/18/19 04:00 Mechanical Ventilator 09/18/19 04:00 30 09/18/19 03:55 97.0 98 16 118/81 (93) 100 09/18/19 03:35 97 09/18/19 03:15 88 30 30 09/18/19 01:45 94 23 30 09/18/19 00:00 Mechanical Ventilator 09/18/19 00:00 96.4 92 18 122/82 (95) 100 09/18/19 00:00 30 09/17/19 23:46 139 09/17/19 22:45 92 21 30 09/17/19 21:19 90 18 30 09/17/19 20:00 Mechanical Ventilator 09/17/19 20:00 96.3 92 18 131/83 (99) 100 09/17/19 20:00 30 09/17/19 19:52 91 09/17/19 19:10 97.8 89 9 127/87 100 Mechanical Ventilator 30 09/17/19 18:55 88 9 129/87 100 Mechanical Ventilator 30 09/17/19 18:40 90 9 128/84 100 Mechanical Ventilator 30 09/17/19 18:25 93 9 129/84 100 Mechanical Ventilator 30 09/17/19 18:19 95 14 99 09/17/19 18:15 93 9 126/83 100 Mechanical Ventilator 30 09/17/19 18:05 97 11 119/81 100 Mechanical Ventilator 30 09/17/19 18:00 99 11 119/85 100 Mechanical Ventilator 30 09/17/19 17:57 97.6 97 10 119/81 100 Mechanical Ventilator 30 09/17/19 16:00 Mechanical Ventilator 09/17/19 16:00 30 09/17/19 16:00 99 09/17/19 16:00 98.6 102 18 123/75 (91) 100 09/17/19 15:09 101 19 30 09/17/19 13:15 101 17 30 09/17/19 12:00 Mechanical Ventilator 09/17/19 12:00 113 09/17/19 12:00 30 09/17/19 12:00 97.9 102 18 115/75 (88) 100 09/17/19 11:28 103 19 30 Status: awake HEENT: atraumatic Neck: full ROM Lungs: clear Heart: HR/BP stable, regular Abdomen: soft, active bowel sounds Extremities: no C/C/E, edema Decubiti: location Micro: Microbiology Date/Time Source Procedure Growth Status 09/15/19 11:00 Nasal Nares - Final Complete 09/15/19 11:00 Nasal Nares - Final Complete 09/16/19 03:00 Urine,Clean Catch Urine Culture - Preliminary YEAST Resulted Accucheck: 228 Critical Care - Subjective ROS Limited/Unobtainable: Yes Condition: critical EKG Rhythm: Sinus Rhythm FI02: 30 Vent Support Breath Rate: 16 Vent Support Mode: AC Vent Tidal Volume: 600 Sputum Amount: Small PEEP: 5.0 PIP: 35 Tube Feeding Amount: 20 I&O: Intake and Output 09/17/19 09/18/19 19:00 07:00 Intake Total 350 ml 1981 ml Output Total 540 ml 800 ml Balance -190 ml 1181 ml Free Water 50 ml 400 ml IV Total 300 ml 1456 ml Tube Feeding 125 ml Output Urine Total 500 ml 400 ml Stool Total 40 ml 400 ml Labs: Laboratory Tests Test 09/18/19 04:30 White Blood Count 12.3 K/UL (4.8-10.8) H Red Blood Count 3.09 M/UL (4.70-6.10) L Hemoglobin 9.2 G/DL (14.2-18.0) L Hematocrit 28.8 % (42.0-52.0) L Mean Corpuscular Volume 93 FL (80-99) Mean Corpuscular Hemoglobin 29.8 PG (27.0-31.0) Mean Corpuscular Hemoglobin Concent 32.0 G/DL (32.0-36.0) Red Cell Distribution Width 16.9 % (11.6-14.8) H Platelet Count 236 K/UL (150-450) Mean Platelet Volume 8.0 FL (6.5-10.1) Neutrophils (%) (Auto) 75.1 % (45.0-75.0) H Lymphocytes (%) (Auto) 7.4 % (20.0-45.0) L Monocytes (%) (Auto) 4.8 % (1.0-10.0) Eosinophils (%) (Auto) 12.0 % (0.0-3.0) H Basophils (%) (Auto) 0.7 % (0.0-2.0) Sodium Level 152 MMOL/L (136-145) H Potassium Level 3.6 MMOL/L (3.5-5.1) Chloride Level 121 MMOL/L (98-107) H Carbon Dioxide Level 17 MMOL/L (21-32) L Anion Gap 14 mmol/L (5-15) Blood Urea Nitrogen 17 mg/dL (7-18) Creatinine 1.1 MG/DL (0.55-1.30) Estimat Glomerular Filtration Rate > 60 mL/min (>60) Glucose Level 234 MG/DL (74-106) H Hemoglobin A1c 6.0 % (4.3-6.0) Uric Acid 9.1 MG/DL (2.6-7.2) H Calcium Level 10.0 MG/DL (8.5-10.1) Phosphorus Level 2.8 MG/DL (2.5-4.9) Magnesium Level 1.8 MG/DL (1.8-2.4) Iron Level 14 ug/dL (50-175) L Total Iron Binding Capacity 170 ug/dL (250-450) L Percent Iron Saturation 8 % (15-50) L Unsaturated Iron Binding 156 ug/dL (112-346) Ferritin 1538 NG/ML (8-388) H Total Bilirubin 0.4 MG/DL (0.2-1.0) Gamma Glutamyl Transpeptidase 152 U/L (5-85) H Aspartate Amino Transf (AST/SGOT) 31 U/L (15-37) Alanine Aminotransferase (ALT/SGPT) 26 U/L (12-78) Alkaline Phosphatase 52 U/L (46-116) Total Creatine Kinase 83 U/L (26-308) C-Reactive Protein, Quantitative 13.0 mg/dL (0.00-0.90) H Pro-B-Type Natriuretic Peptide 394 pg/mL (0-125) H Total Protein 6.7 G/DL (6.4-8.2) Albumin 2.4 G/DL (3.4-5.0) L Globulin 4.3 g/dL Albumin/Globulin Ratio 0.6 (1.0-2.7) L Triglycerides Level 838 MG/DL (30-150) H Cholesterol Level 211 MG/DL (< 200) H LDL Cholesterol 67 mg/dL (<100) HDL Cholesterol 20 MG/DL (40-60) L Cholesterol/HDL Ratio 10.6 (3.3-4.4) H Vitamin B12 Level 1063 PG/ML (193-986) H Folate 26.3 NG/ML (8.6-58.9) Thyroid Stimulating Hormone (TSH) 1.705 uiU/mL (0.358-3.740) Nico Goetz MD Sep 18, 2019 10:08
[2019-09-18] MEDS: Vancomycin 1.5gm/NS Premix 275 ML IVPB SCH (10:29)
--- NOTE | 2019-09-18 11:21 | Consultation ---
Consult Note Consult Note asked to eval for fluid and electrolyte management This patient presents from a [facility] facility. At baseline he is ventilator dependent with tracheostomy. He has a history of respiratory failure in a persistent vegetative state. He is brought in by EMS because the nursing facility noted that his heart rate was elevated. The patient himself is agitated and is unable to give any kind of history. There was no report of any other symptoms. Allergies: AZTREONAM (Verified Allergy, Unknown, 05/13/18) Past Medical History: see triage record, old chart reviewed, DM, HTN, seizures , renal disease Past Surgical History: other - Trach, PEG, Colostomy Social History: Denies: smoking, alcohol use, drug use Reviewed Nursing Documentation: PMH: Agreed; PSxH: Agreed Hx Hypertension: Yes Hx COPD: Yes Hx Diabetes: Yes Hx Gastrointestinal Problems: Yes Hx Neurological Problems: Yes Hx Seizures: Yes Assessment/Plan Hypercalcemia Urinary retention, BPH , Acute on chronic renal failure Electrolyte imbalance Colostomy DM PEG Vegetative state Acute on chronic respiratory failure Free water K and Phos and Mag supplements pulm support Aredia for high Ca Cl Zaragoza MD Sep 18, 2019 11:21
[2019-09-18 12:00] VITALS: BP 127/84
[2019-09-18] MEDS ORDERED: Pamidronate Disodium Inj 60 MG in Sodium Chloride 550 ML IVPB SCH (13:00)
[2019-09-18 16:00] VITALS: BP 115/87
[2019-09-18] MEDS ORDERED: NS 275ml ONE (19:49)
[2019-09-18] MEDS ORDERED: Tubing IV Secondary IV ONE (19:49)
[2019-09-18] MEDS ORDERED: Tubing IV Blood Pump IV ONE (19:49)
[2019-09-18] MEDS ORDERED: Sterile Water For Irrig 2000ml IRRIG ONE (19:49)
[2019-09-18 20:00] VITALS: BP 127/78
[2019-09-19] VITALS: BP 141/84
[2019-09-19] MEDS: levETIRAcetam 1,000mg/NS100ml 100 ML IVPB SCH (01:00)
[2019-09-19] MEDS: levETIRAcetam 500mg/5ml Liquid GT SCH ×3 (01:56→18:15)
[2019-09-19 04:00] VITALS: BP 130/86
--- NOTE | 2019-09-19 04:24 | Diagnostic Imaging Report ---
Indication: Forearm painPain Findings: 2 views of the right forearm were obtained. Bones are osteopenic. There is a PICC line inserted in the upper arm with the tip projecting over the mid humerus. Small focus of air noted adjacent to the PICC line. There is a IV catheter noted in the forearm. There is generalized soft tissue swelling. No acute fracture identified. IMPRESSION: Osteopenia. PICC line tip is projected over the mid humerus
[2019-09-19] MEDS: sitaGLIPtin 50mg tab GT SCH (05:38)
[2019-09-19] MEDS: NovoLOG Insulin Flexpen SUBQ SCH ×4 (05:40→20:34)
[2019-09-19 08:00] VITALS: BP 128/82
[2019-09-19] MEDS: D5W w/KCl 20mEq 1,000 ML IV SCH ×2 (09:00→20:22)
[2019-09-19] MEDS: Meropenem 1 GM in NS 55 ML IVPB SCH (09:00)
[2019-09-19 09:24] LABS: BASOPHILS % (AUTO) 2.3 % (0.0-2.0); EOSINOPHILS % (AUTO) 13.1 % (0.0-3.0); HEMATOCRIT 31.7 % (42.0-52.0); HEMOGLOBIN 9.9 G/DL (14.2-18.0); LYMPHOCYTES % (AUTO) 9.4 % (20.0-45.0); MEAN CORPUSCULAR VOLUME 93 FL (80-99); MONOCYTES % (AUTO) 7.6 % (1.0-10.0); NEUTROPHILS % (AUTO) 67.6 % (45.0-75.0); PLATELET COUNT 273 K/UL (150-450); RED BLOOD COUNT 3.42 M/UL (4.70-6.10); RED CELL DISTRIBUTION WIDTH 16.5 % (11.6-14.8); WHITE BLOOD COUNT 7.5 K/UL (4.8-10.8)
[2019-09-19 09:36] LABS: ALANINE AMINOTRANSFERASE 25 U/L (12-78); ALBUMIN 2.3 G/DL (3.4-5.0); ALBUMIN/GLOBULIN RATIO 0.5 (1.0-2.7); ALKALINE PHOSPHATASE 66 U/L (46-116); ANION GAP 12 mmol/L (5-15); ASPARTATE AMINO TRANSFERASE 41 U/L (15-37); BILIRUBIN,TOTAL 0.4 MG/DL (0.2-1.0); BLOOD UREA NITROGEN 11 mg/dL (7-18); CALCIUM 9.5 MG/DL (8.5-10.1); CARBON DIOXIDE 20 MMOL/L (21-32); CHLORIDE 116 MMOL/L (98-107); PHOSPHORUS 2.8 MG/DL (2.5-4.9); POTASSIUM 3.7 MMOL/L (3.5-5.1); SODIUM 148 MMOL/L (136-145)
[2019-09-19] MEDS: Tamsulosin 0.4mg cap ORAL SCH (09:37)
[2019-09-19] MEDS: Clobetasol Cream 0.05% 15gm TOPIC SCH ×2 (09:38→20:23)
[2019-09-19] MEDS: Heparin 5000 units/ml inj SUBQ SCH ×2 (09:43→20:24)
--- NOTE | 2019-09-19 10:12 | Urology Progress Note ---
Assessment/Plan Assessment/Plan: 1. Urinary retention. 2. BPH. 3. Neurogenic bladder. 4. Incontinence. 5. Pyuria/UTI/colonized. 6. Hematuria. 7. Proteinuria. 8. Renal insufficiency, acute possibly on chronic. 9. Renal cyst. 10. Nephrolithiasis. 11. POD # 2, cysto/optic urethrotomy monitor clinically kendrick placed 09/17 hand irrigated and do PRN abx as ordered f/u on blood cx consider antifungals, per ID Subjective Allergies: Coded Allergies: AZTREONAM (Verified Allergy, Unknown, 05/13/18) Subjective all noted, kendrick draining, non-verbal Objective Last 24 Hour Vital Signs Date Time Temp Pulse Resp B/P (MAP) Pulse Ox O2 Delivery O2 Flow Rate FiO2 09/19/19 09:20 99 17 30 09/19/19 07:01 98 18 30 09/19/19 05:29 99 16 30 09/19/19 04:00 97.0 99 17 130/86 (101) 100 09/19/19 04:00 Mechanical Ventilator 09/19/19 04:00 30 09/19/19 03:32 98 09/19/19 03:25 99 17 30 09/19/19 01:30 98 18 30 09/19/19 00:00 97.3 107 17 141/84 (103) 100 09/19/19 00:00 30 09/19/19 00:00 Mechanical Ventilator 09/18/19 23:51 108 09/18/19 23:00 98 19 30 09/18/19 21:00 100 21 30 09/18/19 20:00 Mechanical Ventilator 09/18/19 20:00 30 09/18/19 20:00 97.7 102 16 127/78 (94) 100 09/18/19 19:25 105 09/18/19 19:00 98 19 30 09/18/19 17:16 100 19 30 09/18/19 16:00 30 09/18/19 16:00 Mechanical Ventilator 09/18/19 16:00 98.6 105 18 115/87 (96) 100 09/18/19 15:22 105 09/18/19 13:00 100 19 30 09/18/19 12:00 98.9 104 16 127/84 (98) 100 09/18/19 12:00 30 09/18/19 12:00 Mechanical Ventilator 09/18/19 11:40 103 09/18/19 11:05 102 17 30 Intake and Output 09/18/19 09/19/19 19:00 07:00 Intake Total 1640 ml 1030 ml Output Total 900 ml 650 ml Balance 740 ml 380 ml Free Water 400 ml 400 ml IV Total 1000 ml 410 ml Tube Feeding 240 ml 220 ml Output Urine Total 500 ml 500 ml Stool Total 400 ml 150 ml # Bowel Movements 100 Microbiology Date/Time Source Procedure Growth Status 09/14/19 09:15 Blood Blood Culture - Preliminary NO GROWTH AFTER 4 DAYS Resulted 09/15/19 11:00 Nasal Nares - Final Complete 09/15/19 11:00 Nasal Nares - Final Complete 09/16/19 03:00 Urine,Clean Catch Urine Culture - Final Camelia Parapsilosis Complete 09/14/19 09:10 Rectum VRE Culture - Final Enterococcus Faecium - Vre Complete Current Medications Medications (Trade) Dose Ordered Sig/Va Route PRN Reason Start Time Stop Time Status Last Admin Dose Admin Acetaminophen (Tylenol) 650 mg Q4H PRN GT Mild Pain/Temp > 100.6 09/16/19 18:42 10/16/19 18:41 Albuterol/ Ipratropium (Albuterol/ Ipratropium) 3 ml Q2H PRN HHN Shortness of Breath 09/16/19 18:45 09/19/19 14:44 Artificial Tears (Akwa-Tears) 2 drop Q12HR BOTH EYES 09/16/19 21:00 10/14/19 20:59 09/19/19 09:36 Baclofen (Lioresal) 10 mg THREE TIMES A DAY GT 09/17/19 09:00 10/14/19 17:59 09/19/19 09:37 Calcitonin [place] (Miacalcin) 1 sprays DAILY NASAL 09/18/19 12:00 10/18/19 11:59 09/19/19 09:43 Clobetasol Propionate (Temovate) 1 applic EVERY 12 HOURS TOPIC 09/16/19 21:00 10/14/19 20:59 09/19/19 09:38 Dextrose (Dextrose 50%) 25 ml Q30M PRN IV Hypoglycemia 09/16/19 18:45 10/14/19 14:44 Dextrose (Dextrose 50%) 50 ml Q30M PRN IV Hypoglycemia 09/16/19 18:45 10/14/19 14:44 Dextrose/ Electrolytes 1,000 ml @ 100 mls/hr Q10H IV 09/18/19 03:00 10/18/19 02:59 09/18/19 14:48 Famotidine (Pepcid) 20 mg BID GT 09/18/19 18:00 10/18/19 17:59 09/19/19 09:37 Fenofibrate (Tricor) 145 mg DAILY ORAL 09/17/19 09:00 10/15/19 08:59 09/19/19 09:37 Heparin Sodium (Porcine) (Heparin 5000 units/ml) 5,000 units EVERY 12 HOURS SUBQ 09/16/19 21:00 10/14/19 20:59 09/19/19 09:43 Insulin Aspart (NovoLOG) BEFORE MEALS AND HS SUBQ 09/16/19 21:00 10/14/19 16:29 09/19/19 05:40 Levetiracetam (Keppra) 1,000 mg Q8H GT 09/19/19 02:00 10/19/19 01:59 09/19/19 09:37 Lorazepam (Ativan 2mg/ml 1ml) 2 mg Q2H PRN IV For Anxiety 09/16/19 18:43 09/23/19 18:42 Meropenem 1 gm/ Sodium Chloride 55 ml @ 110 mls/hr Q12HR IVPB 09/16/19 21:00 09/21/19 20:59 09/18/19 20:12 Morphine Sulfate (Morphine Sulfate) 4 mg Q4H PRN IVP Severe Pain (Pain Scale 7-10) 09/16/19 18:44 09/23/19 18:43 Ondansetron HCl (Zofran) 4 mg Q6H PRN IVP Nausea & Vomiting 09/16/19 18:44 10/16/19 18:43 Polyethylene Glycol (Miralax) 17 gm DAILYPRN PRN GT Constipation 09/16/19 18:44 10/16/19 18:43 Sitagliptin Phosphate (Januvia) 50 mg ACBREAKFAST GT 09/17/19 06:30 10/15/19 06:29 09/19/19 05:38 Tamsulosin HCl (Flomax) 0.4 mg DAILY ORAL 09/17/19 09:00 10/17/19 08:59 09/19/19 09:37 Laboratory Tests 09/19/19 08:10: White Blood Count 7.5, Red Blood Count 3.42L, Hemoglobin 9.9L, Hematocrit 31.7L , Mean Corpuscular Volume 93, Mean Corpuscular Hemoglobin 28.9, Mean Corpuscular Hemoglobin Concent 31.3L, Red Cell Distribution Width 16.5H, Platelet Count 273, Mean Platelet Volume 8.0, Neutrophils (%) (Auto) 67.6, Lymphocytes (%) (Auto) 9.4L, Monocytes (%) (Auto) 7.6, Eosinophils (%) (Auto) 13.1H, Basophils (%) (Auto) 2.3H, Sodium Level 148H, Potassium Level 3.7, Chloride Level 116H, Carbon Dioxide Level 20L, Anion Gap 12, Blood Urea Nitrogen 11, Creatinine 1.0, Estimat Glomerular Filtration Rate > 60, Glucose Level 192H, Uric Acid 8.2H, Calcium Level 9.5, Phosphorus Level 2.8, Magnesium Level 1.8, Total Bilirubin 0.4, Aspartate Amino Transf (AST/SGOT) 41H, Alanine Aminotransferase (ALT/SGPT) 25, Alkaline Phosphatase 66, Total Protein 6.9, Albumin 2.3L, Globulin 4.6, Albumin/Globulin Ratio 0.5L, Vancomycin Level Trough 20.1H Height (Feet): 5 Height (Inches): 7.00 Weight (Pounds): 196 Objective exam stable kendrick indwelling, blood-tinged/hermelindo urine, some debris minimal bleeding at penile meatus Manohar Villarreal MD Sep 19, 2019 10:12
[2019-09-19] MEDS ORDERED: Tubing IV Secondary IV ONE (10:41)
--- NOTE | 2019-09-19 10:48 | Pulmonolgy Critical Care Note ---
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 (7) ATN (acute tubular necrosis) Respiratory: monitor respiratory rate, adjust FIO2, CXR Cardiac: continue to monitor HR/BP Renal: F/U I&O, keep IV fluid Infectious Disease: check cultures, continue antibiotics Gastrointestinal: continue feedings/current rate Hematologic: monitor H/H, transfuse if hgb<8.5 Neurologic: PRN Ativan, keep patient comfortable Prophylaxis: Protonix, Heparin Notes Reviewed: missileman, renal, ID Discussed with: nurses, consultants, cyanide case hardenersleep manager - Objective Last 24 Hour Vital Signs Date Time Temp Pulse Resp B/P (MAP) Pulse Ox O2 Delivery O2 Flow Rate FiO2 09/19/19 09:20 99 17 30 09/19/19 07:01 98 18 30 09/19/19 05:29 99 16 30 09/19/19 04:00 97.0 99 17 130/86 (101) 100 09/19/19 04:00 Mechanical Ventilator 09/19/19 04:00 30 09/19/19 03:32 98 09/19/19 03:25 99 17 30 09/19/19 01:30 98 18 30 09/19/19 00:00 97.3 107 17 141/84 (103) 100 09/19/19 00:00 30 09/19/19 00:00 Mechanical Ventilator 09/18/19 23:51 108 09/18/19 23:00 98 19 30 09/18/19 21:00 100 21 30 09/18/19 20:00 Mechanical Ventilator 09/18/19 20:00 30 09/18/19 20:00 97.7 102 16 127/78 (94) 100 09/18/19 19:25 105 09/18/19 19:00 98 19 30 09/18/19 17:16 100 19 30 09/18/19 16:00 30 09/18/19 16:00 Mechanical Ventilator 09/18/19 16:00 98.6 105 18 115/87 (96) 100 09/18/19 15:22 105 09/18/19 13:00 100 19 30 09/18/19 12:00 98.9 104 16 127/84 (98) 100 09/18/19 12:00 30 09/18/19 12:00 Mechanical Ventilator 09/18/19 11:40 103 09/18/19 11:05 102 17 30 Status: awake Condition: critical HEENT: atraumatic Neck: full ROM Lungs: rales, rhonchi Heart: HR/BP stable Abdomen: soft, active bowel sounds Extremities: edema Decubiti: stage Accucheck: 185 Critical Care - Subjective ROS Limited/Unobtainable: No Condition: critical EKG Rhythm: Sinus Rhythm FI02: 30 Vent Support Breath Rate: 16 Vent Support Mode: AC Vent Tidal Volume: 600 Sputum Amount: Small PEEP: 5.0 PIP: 31 Tube Feeding Amount: 20 I&O: Intake and Output 09/18/19 09/19/19 19:00 07:00 Intake Total 1640 ml 1030 ml Output Total 900 ml 650 ml Balance 740 ml 380 ml Free Water 400 ml 400 ml IV Total 1000 ml 410 ml Tube Feeding 240 ml 220 ml Output Urine Total 500 ml 500 ml Stool Total 400 ml 150 ml # Bowel Movements 100 CXR: cxr pending Labs: Laboratory Tests Test 09/19/19 08:10 White Blood Count 7.5 K/UL (4.8-10.8) Red Blood Count 3.42 M/UL (4.70-6.10) L Hemoglobin 9.9 G/DL (14.2-18.0) L Hematocrit 31.7 % (42.0-52.0) L Mean Corpuscular Volume 93 FL (80-99) Mean Corpuscular Hemoglobin 28.9 PG (27.0-31.0) Mean Corpuscular Hemoglobin Concent 31.3 G/DL (32.0-36.0) L Red Cell Distribution Width 16.5 % (11.6-14.8) H Platelet Count 273 K/UL (150-450) Mean Platelet Volume 8.0 FL (6.5-10.1) Neutrophils (%) (Auto) 67.6 % (45.0-75.0) Lymphocytes (%) (Auto) 9.4 % (20.0-45.0) L Monocytes (%) (Auto) 7.6 % (1.0-10.0) Eosinophils (%) (Auto) 13.1 % (0.0-3.0) H Basophils (%) (Auto) 2.3 % (0.0-2.0) H Sodium Level 148 MMOL/L (136-145) H Potassium Level 3.7 MMOL/L (3.5-5.1) Chloride Level 116 MMOL/L (98-107) H Carbon Dioxide Level 20 MMOL/L (21-32) L Anion Gap 12 mmol/L (5-15) Blood Urea Nitrogen 11 mg/dL (7-18) Creatinine 1.0 MG/DL (0.55-1.30) Estimat Glomerular Filtration Rate > 60 mL/min (>60) Glucose Level 192 MG/DL (74-106) H Uric Acid 8.2 MG/DL (2.6-7.2) H Calcium Level 9.5 MG/DL (8.5-10.1) Phosphorus Level 2.8 MG/DL (2.5-4.9) Magnesium Level 1.8 MG/DL (1.8-2.4) Total Bilirubin 0.4 MG/DL (0.2-1.0) Aspartate Amino Transf (AST/SGOT) 41 U/L (15-37) H Alanine Aminotransferase (ALT/SGPT) 25 U/L (12-78) Alkaline Phosphatase 66 U/L (46-116) Total Protein 6.9 G/DL (6.4-8.2) Albumin 2.3 G/DL (3.4-5.0) L Globulin 4.6 g/dL Albumin/Globulin Ratio 0.5 (1.0-2.7) L Vancomycin Level Trough 20.1 ug/mL (5.0-12.0) H Nico Goetz MD Sep 19, 2019 10:48
--- NOTE | 2019-09-19 10:59 | Infectious Diseases Prog Note ---
Assessment/Plan Assessment/Plan Assessment: Severe Sepsis- likely 2ry to UTI- Probable PNA -Bcx NTD -u/a wbc tnct, nit neg, leuk +3; ucx C. parasilopsis -sp cx ESBL P. mirabilis, MDR P. stuarti (S Cefepime, Zosyn, Ertapenem) -CXR: Geographic density overlying the right upper lung. This likely represents overlying soft tissue although cannot exclude an underlying consolidation/pneumonia. Pulmonary vascular congestion. Small left pleural effusion. Subsegmental atelectasis versus infiltrate in the left lung base. -Influenza A/B ag neg Fever, SP Leukocytosis, SP DIVYA, SP Mild AST elevation, SP -Abd uS: Hepatomegaly with fatty infiltration. Suspected nonobstructive stone left kidney. Left renal cyst Sacral decubitus hx of recurrent UTIs -UCx 11/17/18 P.a. (R Levo, otherwise S) - CT abd 11/19/18 3 mm distal right ureteral calculus, minimal resultant hydronephrosis. 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 Will continue to follow along with you. Discussed with RN Subjective Allergies: Coded Allergies: AZTREONAM (Verified Allergy, Unknown, 05/13/18) Subjective afebrile no leukocytosis BCx NTD Objective Vital Signs Last 24 Hour Vital Signs Date Time Temp Pulse Resp B/P (MAP) Pulse Ox O2 Delivery O2 Flow Rate FiO2 09/19/19 09:20 99 17 30 09/19/19 07:01 98 18 30 09/19/19 05:29 99 16 30 09/19/19 04:00 97.0 99 17 130/86 (101) 100 09/19/19 04:00 Mechanical Ventilator 09/19/19 04:00 30 09/19/19 03:32 98 09/19/19 03:25 99 17 30 09/19/19 01:30 98 18 30 09/19/19 00:00 97.3 107 17 141/84 (103) 100 09/19/19 00:00 30 09/19/19 00:00 Mechanical Ventilator 09/18/19 23:51 108 09/18/19 23:00 98 19 30 09/18/19 21:00 100 21 30 09/18/19 20:00 Mechanical Ventilator 09/18/19 20:00 30 09/18/19 20:00 97.7 102 16 127/78 (94) 100 09/18/19 19:25 105 09/18/19 19:00 98 19 30 09/18/19 17:16 100 19 30 09/18/19 16:00 30 09/18/19 16:00 Mechanical Ventilator 09/18/19 16:00 98.6 105 18 115/87 (96) 100 09/18/19 15:22 105 09/18/19 13:00 100 19 30 09/18/19 12:00 98.9 104 16 127/84 (98) 100 09/18/19 12:00 30 09/18/19 12:00 Mechanical Ventilator 09/18/19 11:40 103 09/18/19 11:05 102 17 30 Height (Feet): 5 Height (Inches): 7.00 Weight (Pounds): 196 Objective GENERAL: Noncommunicative. Tongue fasciculation. Moderate edema. LUNGS: Diminished breath sounds. CARDIAC: Regular rhythm. Rapid rate. Normal S1, S2. ABDOMEN: Soft with G-tube and colostomy bag. Laboratory Tests Test 09/19/19 08:10 White Blood Count 7.5 K/UL (4.8-10.8) Red Blood Count 3.42 M/UL (4.70-6.10) L Hemoglobin 9.9 G/DL (14.2-18.0) L Hematocrit 31.7 % (42.0-52.0) L Mean Corpuscular Volume 93 FL (80-99) Mean Corpuscular Hemoglobin 28.9 PG (27.0-31.0) Mean Corpuscular Hemoglobin Concent 31.3 G/DL (32.0-36.0) L Red Cell Distribution Width 16.5 % (11.6-14.8) H Platelet Count 273 K/UL (150-450) Mean Platelet Volume 8.0 FL (6.5-10.1) Neutrophils (%) (Auto) 67.6 % (45.0-75.0) Lymphocytes (%) (Auto) 9.4 % (20.0-45.0) L Monocytes (%) (Auto) 7.6 % (1.0-10.0) Eosinophils (%) (Auto) 13.1 % (0.0-3.0) H Basophils (%) (Auto) 2.3 % (0.0-2.0) H Sodium Level 148 MMOL/L (136-145) H Potassium Level 3.7 MMOL/L (3.5-5.1) Chloride Level 116 MMOL/L (98-107) H Carbon Dioxide Level 20 MMOL/L (21-32) L Anion Gap 12 mmol/L (5-15) Blood Urea Nitrogen 11 mg/dL (7-18) Creatinine 1.0 MG/DL (0.55-1.30) Estimat Glomerular Filtration Rate > 60 mL/min (>60) Glucose Level 192 MG/DL (74-106) H Uric Acid 8.2 MG/DL (2.6-7.2) H Calcium Level 9.5 MG/DL (8.5-10.1) Phosphorus Level 2.8 MG/DL (2.5-4.9) Magnesium Level 1.8 MG/DL (1.8-2.4) Total Bilirubin 0.4 MG/DL (0.2-1.0) Aspartate Amino Transf (AST/SGOT) 41 U/L (15-37) H Alanine Aminotransferase (ALT/SGPT) 25 U/L (12-78) Alkaline Phosphatase 66 U/L (46-116) Total Protein 6.9 G/DL (6.4-8.2) Albumin 2.3 G/DL (3.4-5.0) L Globulin 4.6 g/dL Albumin/Globulin Ratio 0.5 (1.0-2.7) L Vancomycin Level Trough 20.1 ug/mL (5.0-12.0) H Current Medications Medications (Trade) Dose Ordered Sig/Va Route PRN Reason Start Time Stop Time Status Last Admin Dose Admin Acetaminophen (Tylenol) 650 mg Q4H PRN GT Mild Pain/Temp > 100.6 09/16/19 18:42 10/16/19 18:41 Albuterol/ Ipratropium (Albuterol/ Ipratropium) 3 ml Q2H PRN HHN Shortness of Breath 09/16/19 18:45 09/19/19 14:44 Artificial Tears (Akwa-Tears) 2 drop Q12HR BOTH EYES 09/16/19 21:00 10/14/19 20:59 09/19/19 09:36 Baclofen (Lioresal) 10 mg THREE TIMES A DAY GT 09/17/19 09:00 10/14/19 17:59 09/19/19 09:37 Calcitonin [place] (Miacalcin) 1 sprays DAILY NASAL 09/18/19 12:00 10/18/19 11:59 09/19/19 09:43 Clobetasol Propionate (Temovate) 1 applic EVERY 12 HOURS TOPIC 09/16/19 21:00 10/14/19 20:59 09/19/19 09:38 Dextrose (Dextrose 50%) 25 ml Q30M PRN IV Hypoglycemia 09/16/19 18:45 10/14/19 14:44 Dextrose (Dextrose 50%) 50 ml Q30M PRN IV Hypoglycemia 09/16/19 18:45 10/14/19 14:44 Dextrose/ Electrolytes 1,000 ml @ 100 mls/hr Q10H IV 09/18/19 03:00 10/18/19 02:59 09/18/19 14:48 Famotidine (Pepcid) 20 mg BID GT 09/18/19 18:00 10/18/19 17:59 09/19/19 09:37 Fenofibrate (Tricor) 145 mg DAILY ORAL 09/17/19 09:00 10/15/19 08:59 09/19/19 09:37 Heparin Sodium (Porcine) (Heparin 5000 units/ml) 5,000 units EVERY 12 HOURS SUBQ 09/16/19 21:00 10/14/19 20:59 09/19/19 09:43 Insulin Aspart (NovoLOG) BEFORE MEALS AND HS SUBQ 09/16/19 21:00 10/14/19 16:29 09/19/19 05:40 Levetiracetam (Keppra) 1,000 mg Q8H GT 09/19/19 02:00 10/19/19 01:59 09/19/19 09:37 Lorazepam (Ativan 2mg/ml 1ml) 2 mg Q2H PRN IV For Anxiety 09/16/19 18:43 09/23/19 18:42 Meropenem 1 gm/ Sodium Chloride 55 ml @ 110 mls/hr Q12HR IVPB 09/16/19 21:00 09/21/19 20:59 09/18/19 20:12 Morphine Sulfate (Morphine Sulfate) 4 mg Q4H PRN IVP Severe Pain (Pain Scale 7-10) 09/16/19 18:44 09/23/19 18:43 Ondansetron HCl (Zofran) 4 mg Q6H PRN IVP Nausea & Vomiting 09/16/19 18:44 10/16/19 18:43 Polyethylene Glycol (Miralax) 17 gm DAILYPRN PRN GT Constipation 09/16/19 18:44 10/16/19 18:43 Sitagliptin Phosphate (Januvia) 50 mg ACBREAKFAST GT 09/17/19 06:30 10/15/19 06:29 09/19/19 05:38 Tamsulosin HCl (Flomax) 0.4 mg DAILY ORAL 09/17/19 09:00 10/17/19 08:59 09/19/19 09:37 Maribel Barrera M.D. Sep 19, 2019 10:59
--- NOTE | 2019-09-19 11:41 | Diagnostic Imaging Report ---
Indication: Cough Comparison: 09/15/2019 A single view chest radiograph was obtained. Findings: There is no change. Tracheostomy noted. Heart size is stable. Blunting of the left costophrenic angle again noted unchanged. IMPRESSION: No pattern changer the last day
--- NOTE | 2019-09-19 11:57 | Nephrology Progress Note ---
Assessment/Plan Problem List: (1) Urinary retention (2) Acute on chronic respiratory failure (3) Hypercalcemia (4) Renal failure (ARF), acute on chronic Assessment Hypercalcemia Urinary retention, BPH , Acute on chronic renal failure Electrolyte imbalance Colostomy DM PEG Vegetative state Acute on chronic respiratory failure Plan Free water K and Phos and Mag supplements pulm support Aredia for high Ca Subjective ROS Limited/Unobtainable: Yes Objective Objective Last 24 Hour Vital Signs Date Time Temp Pulse Resp B/P (MAP) Pulse Ox O2 Delivery O2 Flow Rate FiO2 09/19/19 10:40 99 17 30 09/19/19 09:20 99 17 30 09/19/19 08:00 96.1 97 17 128/82 (97) 100 09/19/19 08:00 Mechanical Ventilator 09/19/19 08:00 30 09/19/19 07:40 105 09/19/19 07:01 98 18 30 09/19/19 05:29 99 16 30 09/19/19 04:00 97.0 99 17 130/86 (101) 100 09/19/19 04:00 Mechanical Ventilator 09/19/19 04:00 30 09/19/19 03:32 98 09/19/19 03:25 99 17 30 09/19/19 01:30 98 18 30 09/19/19 00:00 97.3 107 17 141/84 (103) 100 09/19/19 00:00 30 09/19/19 00:00 Mechanical Ventilator 09/18/19 23:51 108 09/18/19 23:00 98 19 30 09/18/19 21:00 100 21 30 09/18/19 20:00 Mechanical Ventilator 09/18/19 20:00 30 09/18/19 20:00 97.7 102 16 127/78 (94) 100 09/18/19 19:25 105 09/18/19 19:00 98 19 30 09/18/19 17:16 100 19 30 09/18/19 16:00 30 09/18/19 16:00 Mechanical Ventilator 09/18/19 16:00 98.6 105 18 115/87 (96) 100 09/18/19 15:22 105 09/18/19 13:00 100 19 30 09/18/19 12:00 98.9 104 16 127/84 (98) 100 09/18/19 12:00 30 09/18/19 12:00 Mechanical Ventilator Intake and Output 09/18/19 09/19/19 19:00 07:00 Intake Total 1640 ml 1030 ml Output Total 900 ml 650 ml Balance 740 ml 380 ml Free Water 400 ml 400 ml IV Total 1000 ml 410 ml Tube Feeding 240 ml 220 ml Output Urine Total 500 ml 500 ml Stool Total 400 ml 150 ml # Bowel Movements 100 Laboratory Tests 09/19/19 08:10: White Blood Count 7.5, Red Blood Count 3.42L, Hemoglobin 9.9L, Hematocrit 31.7L , Mean Corpuscular Volume 93, Mean Corpuscular Hemoglobin 28.9, Mean Corpuscular Hemoglobin Concent 31.3L, Red Cell Distribution Width 16.5H, Platelet Count 273, Mean Platelet Volume 8.0, Neutrophils (%) (Auto) 67.6, Lymphocytes (%) (Auto) 9.4L, Monocytes (%) (Auto) 7.6, Eosinophils (%) (Auto) 13.1H, Basophils (%) (Auto) 2.3H, Sodium Level 148H, Potassium Level 3.7, Chloride Level 116H, Carbon Dioxide Level 20L, Anion Gap 12, Blood Urea Nitrogen 11, Creatinine 1.0, Estimat Glomerular Filtration Rate > 60, Glucose Level 192H, Uric Acid 8.2H, Calcium Level 9.5, Phosphorus Level 2.8, Magnesium Level 1.8, Total Bilirubin 0.4, Aspartate Amino Transf (AST/SGOT) 41H, Alanine Aminotransferase (ALT/SGPT) 25, Alkaline Phosphatase 66, Total Protein 6.9, Albumin 2.3L, Globulin 4.6, Albumin/Globulin Ratio 0.5L, Vancomycin Level Trough 20.1H Height (Feet): 5 Height (Inches): 7.00 Weight (Pounds): 196 EENT: other - trach Cardiovascular: tachycardia Respiratory/Chest: decreased breath sounds Abdomen: distended Cl Zaragoza MD Sep 19, 2019 11:57
[2019-09-19 12:00] VITALS: BP 126/67
--- NOTE | 2019-09-19 12:43 | 48 Hour Post Anesthesia Eval ---
Post Anesthesia Evaluation Procedure: cystoscopy; kendrick placement Date of Evaluation: Sep 19, 2019 Time of Evaluation: 12:41 Blood Pressure Systolic: 128 0: 82 Pulse Rate: 81 Respiratory Rate: 17 - Mech Vent Temperature (Fahrenheit): 96.1 O2 Sat by Pulse Oximetry: 100 Airway: patent Nausea: No Vomiting: No Pain Intensity: 0 Cardiopulmonary Status: Stable Follow-up Care/Observations: 0 Post-Anesthesia Complications: 0 Tristen Goodman MD Sep 19, 2019 12:43
[2019-09-19] MEDS: Ertapenem 1 GM in NS 55 ML IVPB SCH (12:49)
[2019-09-19 16:00] VITALS: BP 118/80
[2019-09-19 20:00] VITALS: BP 124/84
[2019-09-20] VITALS: BP 129/84
[2019-09-20] MEDS: levETIRAcetam 500mg/5ml Liquid GT SCH ×3 (02:00→18:03)
[2019-09-20 04:00] VITALS: BP 126/83
[2019-09-20] MEDS: D5W w/KCl 20mEq 1,000 ML IV SCH ×2 (04:24→13:37)
[2019-09-20] MEDS: sitaGLIPtin 50mg tab GT SCH (05:39)
[2019-09-20] MEDS: NovoLOG Insulin Flexpen SUBQ SCH ×4 (05:40→23:39)
[2019-09-20 06:03] LABS: BASOPHILS % (AUTO) 1.7 % (0.0-2.0); EOSINOPHILS % (AUTO) 11.8 % (0.0-3.0); HEMATOCRIT 32.3 % (42.0-52.0); HEMOGLOBIN 10.3 G/DL (14.2-18.0); LYMPHOCYTES % (AUTO) 9.7 % (20.0-45.0); MEAN CORPUSCULAR VOLUME 94 FL (80-99); MONOCYTES % (AUTO) 8.8 % (1.0-10.0); NEUTROPHILS % (AUTO) 67.9 % (45.0-75.0); PLATELET COUNT 275 K/UL (150-450); RED BLOOD COUNT 3.44 M/UL (4.70-6.10); RED CELL DISTRIBUTION WIDTH 16.7 % (11.6-14.8); WHITE BLOOD COUNT 7.6 K/UL (4.8-10.8)
[2019-09-20 07:45] LABS: ALANINE AMINOTRANSFERASE 27 U/L (12-78); ALBUMIN 2.3 G/DL (3.4-5.0); ALBUMIN/GLOBULIN RATIO 0.5 (1.0-2.7); ALKALINE PHOSPHATASE 75 U/L (46-116); ANION GAP 15 mmol/L (5-15); ASPARTATE AMINO TRANSFERASE 40 U/L (15-37); BILIRUBIN,TOTAL 0.3 MG/DL (0.2-1.0); BLOOD UREA NITROGEN 8 mg/dL (7-18); CALCIUM 9.2 MG/DL (8.5-10.1); CARBON DIOXIDE 19 MMOL/L (21-32); CHLORIDE 111 MMOL/L (98-107); CREATININE 1.1 MG/DL (0.55-1.30); PHOSPHORUS 2.5 MG/DL (2.5-4.9); POTASSIUM 3.5 MMOL/L (3.5-5.1); SODIUM 144 MMOL/L (136-145)
[2019-09-20 08:00] VITALS: BP 123/79
[2019-09-20] MEDS: Tamsulosin 0.4mg cap ORAL SCH (08:33)
[2019-09-20] MEDS: Clobetasol Cream 0.05% 15gm TOPIC SCH ×2 (08:34→20:26)
[2019-09-20] MEDS: Heparin 5000 units/ml inj SUBQ SCH ×2 (08:39→20:27)
--- NOTE | 2019-09-20 09:29 | Urology Progress Note ---
Assessment/Plan Assessment/Plan: 1. Urinary retention. 2. BPH. 3. Neurogenic bladder. 4. Incontinence. 5. Pyuria/UTI/colonized. 6. Hematuria. 7. Proteinuria. 8. Renal insufficiency, acute possibly on chronic. 9. Renal cyst. 10. Nephrolithiasis. 11. POD # 3, cysto/optic urethrotomy monitor clinically kendrick placed 09/17 hand irrigated and do PRN abx as ordered consider antifungals, per ID Subjective Allergies: Coded Allergies: AZTREONAM (Verified Allergy, Unknown, 05/13/18) Subjective all noted, kendrick draining, non-verbal Objective Last 24 Hour Vital Signs Date Time Temp Pulse Resp B/P (MAP) Pulse Ox O2 Delivery O2 Flow Rate FiO2 09/20/19 09:16 100 16 30 09/20/19 08:00 Mechanical Ventilator 09/20/19 08:00 35 09/20/19 08:00 97.8 103 17 123/79 (94) 100 09/20/19 07:58 101 16 30 09/20/19 07:51 100 09/20/19 05:28 90 16 30 09/20/19 04:00 30 09/20/19 04:00 Mechanical Ventilator 09/20/19 04:00 97.5 107 16 126/83 (97) 100 09/20/19 03:35 109 09/20/19 02:35 92 16 30 09/20/19 00:49 94 16 30 09/20/19 00:00 98.1 110 17 129/84 (99) 100 09/20/19 00:00 Mechanical Ventilator 09/20/19 00:00 30 09/19/19 23:45 109 09/19/19 23:00 90 18 30 09/19/19 20:55 94 18 30 09/19/19 20:00 97.8 100 16 124/84 (97) 100 09/19/19 20:00 30 09/19/19 20:00 Mechanical Ventilator 09/19/19 19:35 103 09/19/19 19:27 87 16 98 Mechanical Ventilator 30 09/19/19 19:26 97 16 30 09/19/19 16:33 98 18 30 09/19/19 16:00 30 09/19/19 16:00 97.7 102 18 118/80 (93) 95 09/19/19 16:00 Mechanical Ventilator 09/19/19 16:00 100 09/19/19 14:31 99 17 30 09/19/19 12:43 81 17 100 09/19/19 12:33 98 18 30 09/19/19 12:00 30 09/19/19 12:00 Mechanical Ventilator 09/19/19 12:00 98.1 100 18 126/67 (86) 97 09/19/19 11:40 99 09/19/19 10:40 99 17 30 Intake and Output 09/19/19 09/20/19 19:00 07:00 Intake Total 640 ml 1898 ml Output Total 600 ml 650 ml Balance 40 ml 1248 ml Free Water 400 ml 500 ml IV Total 1038 ml Tube Feeding 240 ml 360 ml Output Urine Total 450 ml 500 ml Stool Total 150 ml 150 ml Microbiology Date/Time Source Procedure Growth Status 09/14/19 09:15 Blood Blood Culture - Final NO GROWTH AFTER 5 DAYS Complete 09/15/19 11:00 Nasal Nares - Final Complete 09/15/19 11:00 Nasal Nares - Final Complete 09/16/19 03:00 Urine,Clean Catch Urine Culture - Final Camelia Parapsilosis Complete 09/14/19 09:10 Rectum VRE Culture - Final Enterococcus Faecium - Vre Complete Current Medications Medications (Trade) Dose Ordered Sig/Va Route PRN Reason Start Time Stop Time Status Last Admin Dose Admin Acetaminophen (Tylenol) 650 mg Q4H PRN GT Mild Pain/Temp > 100.6 09/16/19 18:42 10/16/19 18:41 Artificial Tears (Akwa-Tears) 2 drop Q12HR BOTH EYES 09/16/19 21:00 10/14/19 20:59 09/20/19 08:33 Baclofen (Lioresal) 10 mg THREE TIMES A DAY GT 09/17/19 09:00 10/14/19 17:59 09/20/19 08:33 Calcitonin [place] (Miacalcin) 1 sprays DAILY NASAL 09/18/19 12:00 10/18/19 11:59 09/20/19 08:34 Clobetasol Propionate (Temovate) 1 applic EVERY 12 HOURS TOPIC 09/16/19 21:00 10/14/19 20:59 09/20/19 08:34 Dextrose (Dextrose 50%) 25 ml Q30M PRN IV Hypoglycemia 09/16/19 18:45 10/14/19 14:44 Dextrose (Dextrose 50%) 50 ml Q30M PRN IV Hypoglycemia 09/16/19 18:45 10/14/19 14:44 Dextrose/ Electrolytes 1,000 ml @ 100 mls/hr Q10H IV 09/18/19 03:00 10/18/19 02:59 09/20/19 04:24 Ertapenem 1 gm/ Sodium Chloride 55 ml @ 110 mls/hr Q24H IVPB 09/19/19 13:00 09/24/19 12:59 Famotidine (Pepcid) 20 mg BID GT 09/18/19 18:00 10/18/19 17:59 09/20/19 08:33 Fenofibrate (Tricor) 145 mg DAILY ORAL 09/17/19 09:00 10/15/19 08:59 09/20/19 08:33 Heparin Sodium (Porcine) (Heparin 5000 units/ml) 5,000 units EVERY 12 HOURS SUBQ 09/16/19 21:00 10/14/19 20:59 09/20/19 08:39 Insulin Aspart (NovoLOG) EVERY 6 HOURS SUBQ 09/20/19 12:00 10/14/19 16:29 Levetiracetam (Keppra) 1,000 mg Q8H GT 09/19/19 02:00 10/19/19 01:59 09/20/19 09:13 Lorazepam (Ativan 2mg/ml 1ml) 2 mg Q2H PRN IV For Anxiety 09/16/19 18:43 09/23/19 18:42 Morphine Sulfate (Morphine Sulfate) 4 mg Q4H PRN IVP Severe Pain (Pain Scale 7-10) 09/16/19 18:44 09/23/19 18:43 Ondansetron HCl (Zofran) 4 mg Q6H PRN IVP Nausea & Vomiting 09/16/19 18:44 10/16/19 18:43 Polyethylene Glycol (Miralax) 17 gm DAILYPRN PRN GT Constipation 09/16/19 18:44 10/16/19 18:43 Sitagliptin Phosphate (Januvia) 50 mg ACBREAKFAST GT 09/17/19 06:30 10/15/19 06:29 09/20/19 05:39 Tamsulosin HCl (Flomax) 0.4 mg DAILY ORAL 09/17/19 09:00 10/17/19 08:59 09/20/19 08:33 Laboratory Tests 09/20/19 05:00: White Blood Count 7.6, Red Blood Count 3.44L, Hemoglobin 10.3L, Hematocrit 32.3L , Mean Corpuscular Volume 94, Mean Corpuscular Hemoglobin 29.8, Mean Corpuscular Hemoglobin Concent 31.8L, Red Cell Distribution Width 16.7H, Platelet Count 275, Mean Platelet Volume 7.7, Neutrophils (%) (Auto) 67.9, Lymphocytes (%) (Auto) 9.7L, Monocytes (%) (Auto) 8.8, Eosinophils (%) (Auto) 11.8H, Basophils (%) (Auto) 1.7, Erythrocyte Sedimentation Rate 102H, Sodium Level 144, Potassium Level 3.5, Chloride Level 111H, Carbon Dioxide Level 19L, Anion Gap 15, Blood Urea Nitrogen 8, Creatinine 1.1, Estimat Glomerular Filtration Rate > 60, Glucose Level 227H, Calcium Level 9.2, Phosphorus Level 2.5, Magnesium Level 1.7L, Total Bilirubin 0.3, Aspartate Amino Transf (AST/SGOT ) 40H, Alanine Aminotransferase (ALT/SGPT) 27, Alkaline Phosphatase 75, C- Reactive Protein, Quantitative 18.6H, Total Protein 7.0, Albumin 2.3L, Globulin 4.7, Albumin/Globulin Ratio 0.5L Height (Feet): 5 Height (Inches): 7.00 Weight (Pounds): 195 Objective exam stable kendrick indwelling, blood-tinged/hermelindo urine, some debris minimal bleeding at penile meatus Manohar Villarreal MD Sep 20, 2019 09:29
[2019-09-20 12:00] VITALS: BP 118/71
--- NOTE | 2019-09-20 12:12 | Pulmonology Progress Note ---
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[employer] GROOM shunt placement HTN DM COPD Electrolyte imbalance Seizure disorder Colostomy status Dysphagia ,feeding by G-tube Vegetative state Chronic encephalopathy Anemia of chronic disease , status post 2 units PRBC Neurogenic bladder PLAN OF CARE ANDREW Vent support , trach care fup with CXR baseline ABG and titrate settings as needed Venous duplex BLE no acute DVT abx as per ID recs BCX negative UCX + Camelia SCX+ Proteus ESBL , Providencia aspiration precaution, G-tube feeding, monitor tolerance DVT ,GI prophylaxis colostomy care DIVYA - resolved ; hyperNa - resolved decrease IV fluids monitor renal parameters, electrolytes correct electrolytes as needed, avoid nephrotoxic's abdominaUS with hepatomegaly with fatty infiltration ; both kidneys unremarkable ; no hydronephrosis LFT stable BS management with Januvia and SSI, HgA1c at goal seizure precaution, continue Keppra pain management moniotr HH with goal to keep Hgb> 7, s/p 2 u PRBC supportive care bowel regimen case discussed and evaluated by supervising physician Subjective Allergies: Coded Allergies: AZTREONAM (Verified Allergy, Unknown, 05/13/18) Subjective leuk resolved, afebrile, no signs of resp distress on current settings Objective Last 24 Hour Vital Signs Date Time Temp Pulse Resp B/P (MAP) Pulse Ox O2 Delivery O2 Flow Rate FiO2 09/20/19 11:08 100 16 30 09/20/19 09:16 100 16 30 09/20/19 08:00 Mechanical Ventilator 09/20/19 08:00 35 09/20/19 08:00 97.8 103 17 123/79 (94) 100 09/20/19 07:58 101 16 30 09/20/19 07:51 100 09/20/19 05:28 90 16 30 09/20/19 04:00 30 09/20/19 04:00 Mechanical Ventilator 09/20/19 04:00 97.5 107 16 126/83 (97) 100 09/20/19 03:35 109 09/20/19 02:35 92 16 30 11/30/19 00:49 94 16 30 09/20/19 00:00 98.1 110 17 129/84 (99) 100 09/20/19 00:00 Mechanical Ventilator 09/20/19 00:00 30 09/19/19 23:45 109 09/19/19 23:00 90 18 30 09/19/19 20:55 94 18 30 09/19/19 20:00 97.8 100 16 124/84 (97) 100 09/19/19 20:00 30 09/19/19 20:00 Mechanical Ventilator 09/19/19 19:35 103 09/19/19 19:27 87 16 98 Mechanical Ventilator 30 09/19/19 19:26 97 16 30 09/19/19 16:33 98 18 30 09/19/19 16:00 30 09/19/19 16:00 97.7 102 18 118/80 (93) 95 09/19/19 16:00 Mechanical Ventilator 09/19/19 16:00 100 09/19/19 14:31 99 17 30 09/19/19 12:43 81 17 100 09/19/19 12:33 98 18 30 Intake and Output 09/19/19 09/20/19 19:00 07:00 Intake Total 640 ml 1898 ml Output Total 600 ml 650 ml Balance 40 ml 1248 ml Free Water 400 ml 500 ml IV Total 1038 ml Tube Feeding 240 ml 360 ml Output Urine Total 450 ml 500 ml Stool Total 150 ml 150 ml General Appearance: no acute distress, other - bedridden chroncially ill looking, vent dependent AA male ; vent AC 500-30%-16 HEENT: status post trach - Portex#7, secretions moderate amount, white color, thick cnsistency Respiratory/Chest: crackles/rales - few scattered Cardiovascular: tachycardia - ST on tele 100-110 , other - RUE PICC intact Abdomen: normal bowel sounds, soft, non tender, other - G tube , colostomy with brown output Genitourinary: other - Newberry Skin: other - sacral decub POA Neurologic/Psychiatric: abnormal gait Musculoskeletal: atrophy - BLE Laboratory Tests 09/20/19 05:00: White Blood Count 7.6, Red Blood Count 3.44L, Hemoglobin 10.3L, Hematocrit 32.3L , Mean Corpuscular Volume 94, Mean Corpuscular Hemoglobin 29.8, Mean Corpuscular Hemoglobin Concent 31.8L, Red Cell Distribution Width 16.7H, Platelet Count 275, Mean Platelet Volume 7.7, Neutrophils (%) (Auto) 67.9, Lymphocytes (%) (Auto) 9.7L, Monocytes (%) (Auto) 8.8, Eosinophils (%) (Auto) 11.8H, Basophils (%) (Auto) 1.7, Erythrocyte Sedimentation Rate 102H, Sodium Level 144, Potassium Level 3.5, Chloride Level 111H, Carbon Dioxide Level 19L, Anion Gap 15, Blood Urea Nitrogen 8, Creatinine 1.1, Estimat Glomerular Filtration Rate > 60, Glucose Level 227H, Calcium Level 9.2, Phosphorus Level 2.5, Magnesium Level 1.7L, Total Bilirubin 0.3, Aspartate Amino Transf (AST/SGOT ) 40H, Alanine Aminotransferase (ALT/SGPT) 27, Alkaline Phosphatase 75, C- Reactive Protein, Quantitative 18.6H, Total Protein 7.0, Albumin 2.3L, Globulin 4.7, Albumin/Globulin Ratio 0.5L Current Medications Medications (Trade) Dose Ordered Sig/Va Route PRN Reason Start Time Stop Time Status Last Admin Dose Admin Acetaminophen (Tylenol) 650 mg Q4H PRN GT Mild Pain/Temp > 100.6 09/16/19 18:42 10/16/19 18:41 Artificial Tears (Akwa-Tears) 2 drop Q12HR BOTH EYES 09/16/19 21:00 10/14/19 20:59 09/20/19 08:33 Baclofen (Lioresal) 10 mg THREE TIMES A DAY GT 09/17/19 09:00 10/14/19 17:59 09/20/19 08:33 Calcitonin [place] (Miacalcin) 1 sprays DAILY NASAL 09/18/19 12:00 10/18/19 11:59 09/20/19 08:34 Clobetasol Propionate (Temovate) 1 applic EVERY 12 HOURS TOPIC 09/16/19 21:00 10/14/19 20:59 09/20/19 08:34 Dextrose (Dextrose 50%) 25 ml Q30M PRN IV Hypoglycemia 09/16/19 18:45 10/14/19 14:44 Dextrose (Dextrose 50%) 50 ml Q30M PRN IV Hypoglycemia 09/16/19 18:45 10/14/19 14:44 Dextrose/ Electrolytes 1,000 ml @ 100 mls/hr Q10H IV 09/18/19 03:00 10/18/19 02:59 09/20/19 04:24 Ertapenem 1 gm/ Sodium Chloride 55 ml @ 110 mls/hr Q24H IVPB 09/19/19 13:00 09/24/19 12:59 Famotidine (Pepcid) 20 mg BID GT 09/18/19 18:00 10/18/19 17:59 09/20/19 08:33 Fenofibrate (Tricor) 145 mg DAILY ORAL 09/17/19 09:00 10/15/19 08:59 09/20/19 08:33 Heparin Sodium (Porcine) (Heparin 5000 units/ml) 5,000 units EVERY 12 HOURS SUBQ 09/16/19 21:00 10/14/19 20:59 09/20/19 08:39 Insulin Aspart (NovoLOG) EVERY 6 HOURS SUBQ 09/20/19 12:00 10/14/19 16:29 Levetiracetam (Keppra) 1,000 mg Q8H GT 09/19/19 02:00 10/19/19 01:59 09/20/19 09:13 Lorazepam (Ativan 2mg/ml 1ml) 2 mg Q2H PRN IV For Anxiety 09/16/19 18:43 09/23/19 18:42 Morphine Sulfate (Morphine Sulfate) 4 mg Q4H PRN IVP Severe Pain (Pain Scale 7-10) 09/16/19 18:44 09/23/19 18:43 Ondansetron HCl (Zofran) 4 mg Q6H PRN IVP Nausea & Vomiting 09/16/19 18:44 10/16/19 18:43 Polyethylene Glycol (Miralax) 17 gm DAILYPRN PRN GT Constipation 09/16/19 18:44 10/16/19 18:43 Sitagliptin Phosphate (Januvia) 50 mg ACBREAKFAST GT 09/17/19 06:30 10/15/19 06:29 09/20/19 05:39 Tamsulosin HCl (Flomax) 0.4 mg DAILY ORAL 09/17/19 09:00 10/17/19 08:59 09/20/19 08:33 Radha Kaufman ORTHODONTIC TREATMENT COORDINATOR Sep 20, 2019 12:12
[2019-09-20] MEDS ORDERED: Albuterol/Ipratropium 3ml neb HHN PRN (12:20)
[2019-09-20] MEDS: Ertapenem 1 GM in NS 55 ML IVPB SCH (12:41)
[2019-09-20 16:00] VITALS: BP 118/75
--- NOTE | 2019-09-20 17:37 | Nephrology Progress Note ---
Assessment/Plan Problem List: (1) Urinary retention (2) Acute on chronic respiratory failure (3) Hypercalcemia (4) Renal failure (ARF), acute on chronic Assessment Hypercalcemia Urinary retention, BPH , Acute on chronic renal failure Electrolyte imbalance Colostomy DM PEG Vegetative state Acute on chronic respiratory failure Plan Free water K and Phos and Mag supplements pulm support Aredia for high Ca Subjective ROS Limited/Unobtainable: Yes Objective Objective Last 24 Hour Vital Signs Date Time Temp Pulse Resp B/P (MAP) Pulse Ox O2 Delivery O2 Flow Rate FiO2 09/20/19 17:33 99 18 30 09/20/19 16:00 97.5 103 17 118/75 (89) 100 09/20/19 16:00 30 09/20/19 16:00 Mechanical Ventilator 09/20/19 15:27 101 09/20/19 15:23 103 16 30 09/20/19 13:17 107 16 30 09/20/19 12:00 102 09/20/19 12:00 30 09/20/19 12:00 Mechanical Ventilator 09/20/19 12:00 97.5 102 16 118/71 (87) 100 09/20/19 11:08 100 16 30 09/20/19 09:16 100 16 30 09/20/19 08:00 Mechanical Ventilator 09/20/19 08:00 30 09/20/19 08:00 97.8 103 17 123/79 (94) 100 09/20/19 07:58 101 16 30 09/20/19 07:51 100 09/20/19 05:28 90 16 30 09/20/19 04:00 30 09/20/19 04:00 Mechanical Ventilator 09/20/19 04:00 97.5 107 16 126/83 (97) 100 09/20/19 03:35 109 09/20/19 02:35 92 16 30 09/20/19 00:49 94 16 30 09/20/19 00:00 98.1 110 17 129/84 (99) 100 09/20/19 00:00 Mechanical Ventilator 09/20/19 00:00 30 09/19/19 23:45 109 09/19/19 23:00 90 18 30 09/19/19 20:55 94 18 30 09/19/19 20:00 97.8 100 16 124/84 (97) 100 09/19/19 20:00 30 09/19/19 20:00 Mechanical Ventilator 09/19/19 19:35 103 09/19/19 19:27 87 16 98 Mechanical Ventilator 30 09/19/19 19:26 97 16 30 Intake and Output 09/19/19 09/20/19 19:00 07:00 Intake Total 640 ml 1898 ml Output Total 600 ml 650 ml Balance 40 ml 1248 ml Free Water 400 ml 500 ml IV Total 1038 ml Tube Feeding 240 ml 360 ml Output Urine Total 450 ml 500 ml Stool Total 150 ml 150 ml Laboratory Tests 09/20/19 05:00: White Blood Count 7.6, Red Blood Count 3.44L, Hemoglobin 10.3L, Hematocrit 32.3L , Mean Corpuscular Volume 94, Mean Corpuscular Hemoglobin 29.8, Mean Corpuscular Hemoglobin Concent 31.8L, Red Cell Distribution Width 16.7H, Platelet Count 275, Mean Platelet Volume 7.7, Neutrophils (%) (Auto) 67.9, Lymphocytes (%) (Auto) 9.7L, Monocytes (%) (Auto) 8.8, Eosinophils (%) (Auto) 11.8H, Basophils (%) (Auto) 1.7, Erythrocyte Sedimentation Rate 102H, Sodium Level 144, Potassium Level 3.5, Chloride Level 111H, Carbon Dioxide Level 19L, Anion Gap 15, Blood Urea Nitrogen 8, Creatinine 1.1, Estimat Glomerular Filtration Rate > 60, Glucose Level 227H, Calcium Level 9.2, Phosphorus Level 2.5, Magnesium Level 1.7L, Total Bilirubin 0.3, Aspartate Amino Transf (AST/SGOT ) 40H, Alanine Aminotransferase (ALT/SGPT) 27, Alkaline Phosphatase 75, C- Reactive Protein, Quantitative 18.6H, Total Protein 7.0, Albumin 2.3L, Globulin 4.7, Albumin/Globulin Ratio 0.5L Height (Feet): 5 Height (Inches): 7.00 Weight (Pounds): 195 General Appearance: no apparent distress EENT: other - trach Cardiovascular: tachycardia Respiratory/Chest: decreased breath sounds Abdomen: distended Cl Zaragoza MD Sep 20, 2019 17:37
[2019-09-20 20:00] VITALS: BP 107/76
[2019-09-21] VITALS: BP 109/79
[2019-09-21] MEDS: levETIRAcetam 500mg/5ml Liquid GT SCH ×3 (02:09→18:13)
[2019-09-21] MEDS: D5W w/KCl 20mEq 1,000 ML IV SCH ×2 (02:09→18:31)
[2019-09-21 04:00] VITALS: BP 105/68
[2019-09-21] MEDS: sitaGLIPtin 50mg tab GT SCH (06:10)
[2019-09-21] MEDS: NovoLOG Insulin Flexpen SUBQ SCH ×4 (06:12→23:59)
[2019-09-21 07:36] LABS: BASOPHILS % (AUTO) 1.7 % (0.0-2.0); EOSINOPHILS % (AUTO) 13.6 % (0.0-3.0); HEMOGLOBIN 10.5 G/DL (14.2-18.0); LYMPHOCYTES % (AUTO) 16.6 % (20.0-45.0); MEAN CORPUSCULAR VOLUME 92 FL (80-99); MONOCYTES % (AUTO) 7.2 % (1.0-10.0); NEUTROPHILS % (AUTO) 60.9 % (45.0-75.0); PLATELET COUNT 315 K/UL (150-450); RED BLOOD COUNT 3.58 M/UL (4.70-6.10); WHITE BLOOD COUNT 8.7 K/UL (4.8-10.8)
[2019-09-21 08:00] VITALS: BP 114/72
[2019-09-21 08:02] LABS: ANION GAP 12 mmol/L (5-15); BLOOD UREA NITROGEN 6 mg/dL (7-18); CALCIUM 9.7 MG/DL (8.5-10.1); CARBON DIOXIDE 20 MMOL/L (21-32); CHLORIDE 108 MMOL/L (98-107); CREATININE 0.9 MG/DL (0.55-1.30); POTASSIUM 3.5 MMOL/L (3.5-5.1); SODIUM 140 MMOL/L (136-145)
[2019-09-21 08:05] LABS: ALANINE AMINOTRANSFERASE 26 U/L (12-78); ALBUMIN 2.3 G/DL (3.4-5.0); ALKALINE PHOSPHATASE 78 U/L (46-116); ASPARTATE AMINO TRANSFERASE 37 U/L (15-37); BILIRUBIN,DIRECT 0.1 MG/DL (0.0-0.3); BILIRUBIN,TOTAL 0.3 MG/DL (0.2-1.0); PHOSPHORUS 2.2 MG/DL (2.5-4.9)
--- NOTE | 2019-09-21 09:38 | Nephrology Progress Note ---
Assessment/Plan Problem List: (1) Urinary retention (2) Acute on chronic respiratory failure (3) Hypercalcemia (4) Renal failure (ARF), acute on chronic Assessment Hypercalcemia Urinary retention, BPH , Acute on chronic renal failure Electrolyte imbalance Colostomy DM PEG Vegetative state Acute on chronic respiratory failure Plan Free water- K and Phos and Mag supplements pulm support Aredia for high Ca Subjective ROS Limited/Unobtainable: Yes Objective Objective Last 24 Hour Vital Signs Date Time Temp Pulse Resp B/P (MAP) Pulse Ox O2 Delivery O2 Flow Rate FiO2 09/21/19 09:00 30 09/21/19 08:38 100 16 30 09/21/19 08:00 Mechanical Ventilator 09/21/19 08:00 98 09/21/19 07:32 98 16 30 09/21/19 05:00 101 17 100 Mechanical Ventilator 60.0 30 99 17 30 30 09/21/19 04:01 99 09/21/19 04:00 Mechanical Ventilator 09/21/19 04:00 30 09/21/19 04:00 97.8 104 17 105/68 (80) 100 09/21/19 03:00 101 16 100 Mechanical Ventilator 60.0 30 105 16 30 30 09/21/19 01:08 101 16 100 Mechanical Ventilator 60.0 30 105 16 30 30 09/21/19 00:00 Mechanical Ventilator 09/21/19 00:00 97.8 105 16 109/79 (89) 100 09/21/19 00:00 30 09/20/19 23:39 102 09/20/19 23:00 100 17 100 Mechanical Ventilator 60.0 30 100 17 30 30 09/20/19 21:30 100 17 30 09/20/19 20:00 97.0 100 16 107/76 (86) 100 09/20/19 20:00 Mechanical Ventilator 09/20/19 20:00 30 09/20/19 19:41 99 09/20/19 19:00 106 16 30 09/20/19 17:33 99 18 30 09/20/19 16:00 97.5 103 17 118/75 (89) 100 09/20/19 16:00 30 09/20/19 16:00 Mechanical Ventilator 09/20/19 15:27 101 09/20/19 15:23 103 16 30 09/20/19 13:17 107 16 30 09/20/19 12:00 102 11/30/19 12:00 30 09/20/19 12:00 Mechanical Ventilator 09/20/19 12:00 97.5 102 16 118/71 (87) 100 09/20/19 11:08 100 16 30 Intake and Output 09/20/19 09/21/19 19:00 07:00 Intake Total 1478.75 ml 1618.75 ml Output Total 1900 ml 750 ml Balance -421.25 ml 868.75 ml Free Water 400 ml 400 ml IV Total 658.75 ml 888.75 ml Tube Feeding 360 ml 330 ml Other 60 ml Output Urine Total 1400 ml 600 ml Stool Total 500 ml 150 ml Laboratory Tests 09/21/19 06:45: White Blood Count 8.7, Red Blood Count 3.58L, Hemoglobin 10.5L, Hematocrit 33.0L , Mean Corpuscular Volume 92, Mean Corpuscular Hemoglobin 29.4, Mean Corpuscular Hemoglobin Concent 31.8L, Red Cell Distribution Width 16.0H, Platelet Count 315, Mean Platelet Volume 8.4, Neutrophils (%) (Auto) 60.9, Lymphocytes (%) (Auto) 16.6L, Monocytes (%) (Auto) 7.2, Eosinophils (%) (Auto) 13.6H, Basophils (%) (Auto) 1.7, Sodium Level 140, Potassium Level 3.5, Chloride Level 108H, Carbon Dioxide Level 20L, Anion Gap 12, Blood Urea Nitrogen 6L, Creatinine 0.9, Estimat Glomerular Filtration Rate > 60, Glucose Level 179H, Uric Acid 6.4, Calcium Level 9.7, Phosphorus Level 2.2L, Magnesium Level 1.8, Total Bilirubin 0.3, Direct Bilirubin 0.1, Aspartate Amino Transf ( AST/SGOT) 37, Alanine Aminotransferase (ALT/SGPT) 26, Alkaline Phosphatase 78, Total Protein 7.2, Albumin 2.3L 09/21/19 08:34: Arterial Blood pH 7.443, Arterial Blood Partial Pressure CO2 26.1L, Arterial Blood Partial Pressure O2 154.9H, Arterial Blood HCO3 17.4*L, Arterial Blood Oxygen Saturation 98.3, Arterial Blood Base Excess -5.5L, Kameron Test Positive Height (Feet): 5 Height (Inches): 7.00 Weight (Pounds): 204 General Appearance: no apparent distress EENT: other - trach vent Cardiovascular: tachycardia Respiratory/Chest: decreased breath sounds Abdomen: distended Cl Zaragoza MD Sep 21, 2019 09:38
[2019-09-21] MEDS: Tamsulosin 0.4mg cap ORAL SCH (09:44)
[2019-09-21] MEDS: Clobetasol Cream 0.05% 15gm TOPIC SCH ×2 (09:44→21:15)
[2019-09-21] MEDS: Heparin 5000 units/ml inj SUBQ SCH ×2 (09:50→21:18)
--- NOTE | 2019-09-21 10:01 | Pulmonology Progress Note ---
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 HTN DM COPD Electrolyte imbalance Seizure disorder Colostomy status Dysphagia ,feeding by G-tube Vegetative state Chronic encephalopathy Anemia of chronic disease , status post 2 units PRBC Neurogenic bladder PLAN OF CARE ANDREW Vent support , trach care fup with CXR baseline ABG noted, AC decreased to 14 and fup with ABG in am Venous duplex BLE no acute DVT abx as per ID recs BCX negative UCX + Camelia SCX+ Proteus ESBL , Providencia aspiration precaution, G-tube feeding, monitor tolerance DVT ,GI prophylaxis colostomy care DIVYA - resolved ; hyperNa - resolved IV fluids monitor renal parameters, electrolytes correct electrolytes as needed, avoid nephrotoxic's P replaced as per nephro recs abdominal US with hepatomegaly with fatty infiltration ; both kidneys unremarkable; no hydronephrosis LFT stable BS management with Januvia and SSI, HgA1c at goal seizure precaution, continue Keppra pain management monitor HH with goal to keep Hgb> 7, s/p 2 u PRBC supportive care bowel regimen case discussed and evaluated by supervising physician Subjective Allergies: Coded Allergies: AZTREONAM (Verified Allergy, Unknown, 05/13/18) Subjective leuk resolved, afebrile, no signs of resp distress on current settings ABG noted this am low P Objective Last 24 Hour Vital Signs Date Time Temp Pulse Resp B/P (MAP) Pulse Ox O2 Delivery O2 Flow Rate FiO2 09/21/19 09:00 30 09/21/19 08:38 100 16 30 09/21/19 08:00 Mechanical Ventilator 09/21/19 08:00 98 09/21/19 08:00 97.6 96 18 114/72 (86) 100 09/21/19 07:32 98 16 30 09/21/19 05:00 101 17 100 Mechanical Ventilator 60.0 30 99 17 30 30 09/21/19 04:01 99 09/21/19 04:00 Mechanical Ventilator 09/21/19 04:00 30 09/21/19 04:00 97.8 104 17 105/68 (80) 100 09/21/19 03:00 101 16 100 Mechanical Ventilator 60.0 30 105 16 30 30 09/21/19 01:08 101 16 100 Mechanical Ventilator 60.0 30 105 16 30 30 09/21/19 00:00 Mechanical Ventilator 09/21/19 00:00 97.8 105 16 109/79 (89) 100 09/21/19 00:00 30 09/20/19 23:39 102 09/20/19 23:00 100 17 100 Mechanical Ventilator 60.0 30 100 17 30 30 09/20/19 21:30 100 17 30 09/20/19 20:00 97.0 100 16 107/76 (86) 100 09/20/19 20:00 Mechanical Ventilator 09/20/19 20:00 30 09/20/19 19:41 99 09/20/19 19:00 106 16 30 09/20/19 17:33 99 18 30 09/20/19 16:00 97.5 103 17 118/75 (89) 100 09/20/19 16:00 30 09/20/19 16:00 Mechanical Ventilator 09/20/19 15:27 101 09/20/19 15:23 103 16 30 09/20/19 13:17 107 16 30 09/20/19 12:00 102 09/20/19 12:00 30 09/20/19 12:00 Mechanical Ventilator 09/20/19 12:00 97.5 102 16 118/71 (87) 100 09/20/19 11:08 100 16 30 Intake and Output 09/20/19 09/21/19 19:00 07:00 Intake Total 1478.75 ml 1618.75 ml Output Total 1900 ml 750 ml Balance -421.25 ml 868.75 ml Free Water 400 ml 400 ml IV Total 658.75 ml 888.75 ml Tube Feeding 360 ml 330 ml Other 60 ml Output Urine Total 1400 ml 600 ml Stool Total 500 ml 150 ml Objective General Appearance: no acute distress, bedridden chronically ill looking, vent dependent AA male ; vent AC 500-30%-16 HEENT: status post trach - Portex#7, secretions moderate amount, white color, thick consistency Respiratory/Chest: crackles/rales - few scattered Cardiovascular: tachycardia - ST on tele 100-106, RUE PICC intact Abdomen: normal bowel sounds, soft, non tender, G tube , colostomy with brown output Genitourinary: Newberry Skin: other - sacral decub POA Neurologic/Psychiatric: abnormal gait Musculoskeletal: atrophy - BLE Laboratory Tests 09/21/19 06:45: White Blood Count 8.7, Red Blood Count 3.58L, Hemoglobin 10.5L, Hematocrit 33.0L , Mean Corpuscular Volume 92, Mean Corpuscular Hemoglobin 29.4, Mean Corpuscular Hemoglobin Concent 31.8L, Red Cell Distribution Width 16.0H, Platelet Count 315, Mean Platelet Volume 8.4, Neutrophils (%) (Auto) 60.9, Lymphocytes (%) (Auto) 16.6L, Monocytes (%) (Auto) 7.2, Eosinophils (%) (Auto) 13.6H, Basophils (%) (Auto) 1.7, Sodium Level 140, Potassium Level 3.5, Chloride Level 108H, Carbon Dioxide Level 20L, Anion Gap 12, Blood Urea Nitrogen 6L, Creatinine 0.9, Estimat Glomerular Filtration Rate > 60, Glucose Level 179H, Uric Acid 6.4, Calcium Level 9.7, Phosphorus Level 2.2L, Magnesium Level 1.8, Total Bilirubin 0.3, Direct Bilirubin 0.1, Aspartate Amino Transf ( AST/SGOT) 37, Alanine Aminotransferase (ALT/SGPT) 26, Alkaline Phosphatase 78, Total Protein 7.2, Albumin 2.3L 09/21/19 08:34: Arterial Blood pH 7.443, Arterial Blood Partial Pressure CO2 26.1L, Arterial Blood Partial Pressure O2 154.9H, Arterial Blood HCO3 17.4*L, Arterial Blood Oxygen Saturation 98.3, Arterial Blood Base Excess -5.5L, Kameron Test Positive Current Medications Medications (Trade) Dose Ordered Sig/Va Route PRN Reason Start Time Stop Time Status Last Admin Dose Admin Acetaminophen (Tylenol) 650 mg Q4H PRN GT Mild Pain/Temp > 100.6 09/16/19 18:42 10/16/19 18:41 Albuterol/ Ipratropium (Albuterol/ Ipratropium) 3 ml Q4H PRN HHN Shortness of Breath 09/20/19 12:20 09/25/19 12:19 Artificial Tears (Akwa-Tears) 2 drop Q12HR BOTH EYES 09/16/19 21:00 10/14/19 20:59 09/21/19 09:43 Baclofen (Lioresal) 10 mg THREE TIMES A DAY GT 09/17/19 09:00 10/14/19 17:59 09/21/19 09:44 Calcitonin [place] (Miacalcin) 1 sprays DAILY NASAL 09/18/19 12:00 10/18/19 11:59 09/21/19 09:43 Clobetasol Propionate (Temovate) 1 applic EVERY 12 HOURS TOPIC 09/16/19 21:00 10/14/19 20:59 09/21/19 09:44 Dextrose (Dextrose 50%) 25 ml Q30M PRN IV Hypoglycemia 09/16/19 18:45 10/14/19 14:44 Dextrose (Dextrose 50%) 50 ml Q30M PRN IV Hypoglycemia 09/16/19 18:45 10/14/19 14:44 Dextrose/ Electrolytes 1,000 ml @ 75 mls/hr [id number] IV 09/20/19 13:30 10/20/19 13:29 09/21/19 02:09 Ertapenem 1 gm/ Sodium Chloride 55 ml @ 110 mls/hr Q24H IVPB 09/19/19 13:00 09/24/19 12:59 09/20/19 12:41 Famotidine (Pepcid) 20 mg BID GT 09/18/19 18:00 10/18/19 17:59 09/21/19 09:44 Fenofibrate (Tricor) 145 mg DAILY ORAL 09/17/19 09:00 10/15/19 08:59 09/21/19 09:45 Heparin Sodium (Porcine) (Heparin 5000 units/ml) 5,000 units EVERY 12 HOURS SUBQ 09/16/19 21:00 10/14/19 20:59 09/21/19 09:50 Insulin Aspart (NovoLOG) EVERY 6 HOURS SUBQ 09/20/19 12:00 10/14/19 16:29 09/21/19 06:12 Levetiracetam (Keppra) 1,000 mg Q8H GT 09/19/19 02:00 10/19/19 01:59 09/21/19 09:44 Lorazepam (Ativan 2mg/ml 1ml) 2 mg Q2H PRN IV For Anxiety 09/16/19 18:43 09/23/19 18:42 Morphine Sulfate (Morphine Sulfate) 4 mg Q4H PRN IVP Severe Pain (Pain Scale 7-10) 09/16/19 18:44 09/23/19 18:43 Ondansetron HCl (Zofran) 4 mg Q6H PRN IVP Nausea & Vomiting 09/16/19 18:44 10/16/19 18:43 Polyethylene Glycol (Miralax) 17 gm DAILYPRN PRN GT Constipation 09/16/19 18:44 10/16/19 18:43 Potassium Phosphate 20 mm/ Sodium Chloride 281.6667 ml @ 46.944 m... ONCE ONCE IV 09/21/19 12:00 09/21/19 17:59 Sitagliptin Phosphate (Januvia) 50 mg ACBREAKFAST GT 09/17/19 06:30 10/15/19 06:29 09/21/19 06:10 Tamsulosin HCl (Flomax) 0.4 mg DAILY ORAL 09/17/19 09:00 10/17/19 08:59 09/21/19 09:44 Radha Kaufman NP Sep 21, 2019 10:01
--- NOTE | 2019-09-21 10:16 | Infectious Diseases Prog Note ---
Assessment/Plan Assessment/Plan Assessment: Severe Sepsis- likely 2ry to UTI- Probable PNA -Bcx NTD -u/a wbc tnct, nit neg, leuk +3; ucx C. parasilopsis -sp cx ESBL P. mirabilis, MDR P. stuarti (S Cefepime, Zosyn, Ertapenem) -CXR: Geographic density overlying the right upper lung. This likely represents overlying soft tissue although cannot exclude an underlying consolidation/pneumonia. Pulmonary vascular congestion. Small left pleural effusion. Subsegmental atelectasis versus infiltrate in the left lung base. -Influenza A/B ag neg Fever, SP Leukocytosis, SP DIVYA, SP Mild AST elevation, SP -Abd uS: Hepatomegaly with fatty infiltration. Suspected nonobstructive stone left kidney. Left renal cyst Sacral decubitus hx of recurrent UTIs -UCx 11/17/18 P.a. (R Levo, otherwise S) - CT abd 11/19/18 3 mm distal right ureteral calculus, minimal resultant hydronephrosis. 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 Will continue to follow along with you. Discussed with RN Subjective Allergies: Coded Allergies: AZTREONAM (Verified Allergy, Unknown, 05/13/18) Subjective Afebrile Leukocytosis resolved On vent 30% O2 Objective Vital Signs Last 24 Hour Vital Signs Date Time Temp Pulse Resp B/P (MAP) Pulse Ox O2 Delivery O2 Flow Rate FiO2 09/21/19 09:00 30 09/21/19 08:38 100 16 30 09/21/19 08:00 Mechanical Ventilator 09/21/19 08:00 98 09/21/19 08:00 97.6 96 18 114/72 (86) 100 09/21/19 07:32 98 16 30 09/21/19 05:00 101 17 100 Mechanical Ventilator 60.0 30 99 17 30 30 09/21/19 04:01 99 09/21/19 04:00 Mechanical Ventilator 09/21/19 04:00 30 09/21/19 04:00 97.8 104 17 105/68 (80) 100 09/21/19 03:00 101 16 100 Mechanical Ventilator 60.0 30 105 16 30 30 09/21/19 01:08 101 16 100 Mechanical Ventilator 60.0 30 105 16 30 30 09/21/19 00:00 Mechanical Ventilator 09/21/19 00:00 97.8 105 16 109/79 (89) 100 09/21/19 00:00 30 09/20/19 23:39 102 09/20/19 23:00 100 17 100 Mechanical Ventilator 60.0 30 100 17 30 30 09/20/19 21:30 100 17 30 09/20/19 20:00 97.0 100 16 107/76 (86) 100 09/20/19 20:00 Mechanical Ventilator 09/20/19 20:00 30 09/20/19 19:41 99 09/20/19 19:00 106 16 30 09/20/19 17:33 99 18 30 09/20/19 16:00 97.5 103 17 118/75 (89) 100 09/20/19 16:00 30 09/20/19 16:00 Mechanical Ventilator 09/20/19 15:27 101 09/20/19 15:23 103 16 30 09/20/19 13:17 107 16 30 09/20/19 12:00 102 09/20/19 12:00 30 09/20/19 12:00 Mechanical Ventilator 09/20/19 12:00 97.5 102 16 118/71 (87) 100 09/20/19 11:08 100 16 30 Height (Feet): 5 Height (Inches): 7.00 Weight (Pounds): 204 Objective GENERAL: Noncommunicative. Tongue fasciculation. LUNGS: Diminished breath sounds B/L CARDIAC: Regular rhythm. Rapid rate. Normal S1, S2. ABDOMEN: Soft with G-tube and colostomy bag. Laboratory Tests Test 09/21/19 06:45 09/21/19 08:34 White Blood Count 8.7 K/UL (4.8-10.8) Red Blood Count 3.58 M/UL (4.70-6.10) L Hemoglobin 10.5 G/DL (14.2-18.0) L Hematocrit 33.0 % (42.0-52.0) L Mean Corpuscular Volume 92 FL (80-99) Mean Corpuscular Hemoglobin 29.4 PG (27.0-31.0) Mean Corpuscular Hemoglobin Concent 31.8 G/DL (32.0-36.0) L Red Cell Distribution Width 16.0 % (11.6-14.8) H Platelet Count 315 K/UL (150-450) Mean Platelet Volume 8.4 FL (6.5-10.1) Neutrophils (%) (Auto) 60.9 % (45.0-75.0) Lymphocytes (%) (Auto) 16.6 % (20.0-45.0) L Monocytes (%) (Auto) 7.2 % (1.0-10.0) Eosinophils (%) (Auto) 13.6 % (0.0-3.0) H Basophils (%) (Auto) 1.7 % (0.0-2.0) Sodium Level 140 MMOL/L (136-145) Potassium Level 3.5 MMOL/L (3.5-5.1) Chloride Level 108 MMOL/L (98-107) H Carbon Dioxide Level 20 MMOL/L (21-32) L Anion Gap 12 mmol/L (5-15) Blood Urea Nitrogen 6 mg/dL (7-18) L Creatinine 0.9 MG/DL (0.55-1.30) Estimat Glomerular Filtration Rate > 60 mL/min (>60) Glucose Level 179 MG/DL (74-106) H Uric Acid 6.4 MG/DL (2.6-7.2) Calcium Level 9.7 MG/DL (8.5-10.1) Phosphorus Level 2.2 MG/DL (2.5-4.9) L Magnesium Level 1.8 MG/DL (1.8-2.4) Total Bilirubin 0.3 MG/DL (0.2-1.0) Direct Bilirubin 0.1 MG/DL (0.0-0.3) Aspartate Amino Transf (AST/SGOT) 37 U/L (15-37) Alanine Aminotransferase (ALT/SGPT) 26 U/L (12-78) Alkaline Phosphatase 78 U/L (46-116) Total Protein 7.2 G/DL (6.4-8.2) Albumin 2.3 G/DL (3.4-5.0) L Arterial Blood pH 7.443 (7.350-7.450) Arterial Blood Partial Pressure CO2 26.1 mmHg (35.0-45.0) L Arterial Blood Partial Pressure O2 154.9 mmHg (75.0-100.0) H Arterial Blood HCO3 17.4 mmol/L (22.0-26.0) *L Arterial Blood Oxygen Saturation 98.3 % (95-100) Arterial Blood Base Excess -5.5 (-2-2) L Kameron Test Positive Current Medications Medications (Trade) Dose Ordered Sig/Va Route PRN Reason Start Time Stop Time Status Last Admin Dose Admin Acetaminophen (Tylenol) 650 mg Q4H PRN GT Mild Pain/Temp > 100.6 09/16/19 18:42 10/16/19 18:41 Albuterol/ Ipratropium (Albuterol/ Ipratropium) 3 ml Q4H PRN HHN Shortness of Breath 09/20/19 12:20 09/25/19 12:19 Artificial Tears (Akwa-Tears) 2 drop Q12HR BOTH EYES 09/16/19 21:00 10/14/19 20:59 09/21/19 09:43 Baclofen (Lioresal) 10 mg THREE TIMES A DAY GT 09/17/19 09:00 10/14/19 17:59 09/21/19 09:44 Calcitonin [place] (Miacalcin) 1 sprays DAILY NASAL 09/18/19 12:00 10/18/19 11:59 09/21/19 09:43 Clobetasol Propionate (Temovate) 1 applic EVERY 12 HOURS TOPIC 09/16/19 21:00 10/14/19 20:59 09/21/19 09:44 Dextrose (Dextrose 50%) 25 ml Q30M PRN IV Hypoglycemia 09/16/19 18:45 10/14/19 14:44 Dextrose (Dextrose 50%) 50 ml Q30M PRN IV Hypoglycemia 09/16/19 18:45 10/14/19 14:44 Dextrose/ Electrolytes 1,000 ml @ 75 mls/hr [id number] IV 09/20/19 13:30 10/20/19 13:29 09/21/19 02:09 Ertapenem 1 gm/ Sodium Chloride 55 ml @ 110 mls/hr Q24H IVPB 09/19/19 13:00 09/24/19 12:59 09/20/19 12:41 Famotidine (Pepcid) 20 mg BID GT 09/18/19 18:00 10/18/19 17:59 09/21/19 09:44 Fenofibrate (Tricor) 145 mg DAILY ORAL 09/17/19 09:00 10/15/19 08:59 09/21/19 09:45 Heparin Sodium (Porcine) (Heparin 5000 units/ml) 5,000 units EVERY 12 HOURS SUBQ 09/16/19 21:00 10/14/19 20:59 09/21/19 09:50 Insulin Aspart (NovoLOG) EVERY 6 HOURS SUBQ 09/20/19 12:00 10/14/19 16:29 09/21/19 06:12 Levetiracetam (Keppra) 1,000 mg Q8H GT 09/19/19 02:00 10/19/19 01:59 09/21/19 09:44 Lorazepam (Ativan 2mg/ml 1ml) 2 mg Q2H PRN IV For Anxiety 09/16/19 18:43 09/23/19 18:42 Morphine Sulfate (Morphine Sulfate) 4 mg Q4H PRN IVP Severe Pain (Pain Scale 7-10) 09/16/19 18:44 09/23/19 18:43 Ondansetron HCl (Zofran) 4 mg Q6H PRN IVP Nausea & Vomiting 09/16/19 18:44 10/16/19 18:43 Polyethylene Glycol (Miralax) 17 gm DAILYPRN PRN GT Constipation 09/16/19 18:44 10/16/19 18:43 Potassium Phosphate 20 mm/ Sodium Chloride 281.6667 ml @ 46.944 m... ONCE ONCE IV 09/21/19 12:00 09/21/19 17:59 Sitagliptin Phosphate (Januvia) 50 mg ACBREAKFAST GT 09/17/19 06:30 10/15/19 06:29 09/21/19 06:10 Tamsulosin HCl (Flomax) 0.4 mg DAILY ORAL 09/17/19 09:00 10/17/19 08:59 09/21/19 09:44 Kali Richter MD Sep 21, 2019 10:15
--- NOTE | 2019-09-21 11:13 | Urology Progress Note ---
Assessment/Plan Assessment/Plan: 1. Urinary retention. 2. BPH. 3. Neurogenic bladder. 4. Incontinence. 5. Pyuria/UTI/colonized. 6. Hematuria. 7. Proteinuria. 8. Renal insufficiency, acute possibly on chronic. 9. Renal cyst. 10. Nephrolithiasis. 11. POD # 4, cysto/optic urethrotomy monitor clinically kendrick placed 09/17 hand irrigated and do PRN abx as ordered consider antifungals, per ID Subjective Allergies: Coded Allergies: AZTREONAM (Verified Allergy, Unknown, 05/13/18) Subjective all noted, kendrick draining, non-verbal Objective Last 24 Hour Vital Signs Date Time Temp Pulse Resp B/P (MAP) Pulse Ox O2 Delivery O2 Flow Rate FiO2 09/21/19 10:39 100 16 30 09/21/19 09:00 30 09/21/19 08:38 100 16 30 09/21/19 08:00 Mechanical Ventilator 09/21/19 08:00 98 09/21/19 08:00 97.6 96 18 114/72 (86) 100 09/21/19 07:32 98 16 30 09/21/19 05:00 101 17 100 Mechanical Ventilator 60.0 30 99 17 30 30 09/21/19 04:01 99 09/21/19 04:00 Mechanical Ventilator 09/21/19 04:00 30 09/21/19 04:00 97.8 104 17 105/68 (80) 100 09/21/19 03:00 101 16 100 Mechanical Ventilator 60.0 30 105 16 30 30 09/21/19 01:08 101 16 100 Mechanical Ventilator 60.0 30 105 16 30 30 09/21/19 00:00 Mechanical Ventilator 09/21/19 00:00 97.8 105 16 109/79 (89) 100 09/21/19 00:00 30 09/20/19 23:39 102 09/20/19 23:00 100 17 100 Mechanical Ventilator 60.0 30 100 17 30 30 09/20/19 21:30 100 17 30 09/20/19 20:00 97.0 100 16 107/76 (86) 100 09/20/19 20:00 Mechanical Ventilator 09/20/19 20:00 30 09/20/19 19:41 99 09/20/19 19:00 106 16 30 09/20/19 17:33 99 18 30 09/20/19 16:00 97.5 103 17 118/75 (89) 100 09/20/19 16:00 30 09/20/19 16:00 Mechanical Ventilator 09/20/19 15:27 101 09/20/19 15:23 103 16 30 09/20/19 13:17 107 16 30 09/20/19 12:00 102 09/20/19 12:00 30 09/20/19 12:00 Mechanical Ventilator 09/20/19 12:00 97.5 102 16 118/71 (87) 100 Intake and Output 09/20/19 09/21/19 19:00 07:00 Intake Total 1478.75 ml 1723.75 ml Output Total 1900 ml 750 ml Balance -421.25 ml 973.75 ml Free Water 400 ml 400 ml IV Total 658.75 ml 963.75 ml Tube Feeding 360 ml 360 ml Other 60 ml Output Urine Total 1400 ml 600 ml Stool Total 500 ml 150 ml Microbiology Date/Time Source Procedure Growth Status 09/14/19 09:15 Blood Blood Culture - Final NO GROWTH AFTER 5 DAYS Complete 09/15/19 11:00 Nasal Nares - Final Complete 09/15/19 11:00 Nasal Nares - Final Complete 09/16/19 03:00 Urine,Clean Catch Urine Culture - Final Camelia Parapsilosis Complete 09/14/19 09:10 Rectum VRE Culture - Final Enterococcus Faecium - Vre Complete Current Medications Medications (Trade) Dose Ordered Sig/Va Route PRN Reason Start Time Stop Time Status Last Admin Dose Admin Acetaminophen (Tylenol) 650 mg Q4H PRN GT Mild Pain/Temp > 100.6 09/16/19 18:42 10/16/19 18:41 Albuterol/ Ipratropium (Albuterol/ Ipratropium) 3 ml Q4H PRN HHN Shortness of Breath 09/20/19 12:20 09/25/19 12:19 Artificial Tears (Akwa-Tears) 2 drop Q12HR BOTH EYES 09/16/19 21:00 10/14/19 20:59 09/21/19 09:43 Baclofen (Lioresal) 10 mg THREE TIMES A DAY GT 09/17/19 09:00 10/14/19 17:59 09/21/19 09:44 Calcitonin [place] (Miacalcin) 1 sprays DAILY NASAL 09/18/19 12:00 10/18/19 11:59 09/21/19 09:43 Clobetasol Propionate (Temovate) 1 applic EVERY 12 HOURS TOPIC 09/16/19 21:00 10/14/19 20:59 09/21/19 09:44 Dextrose (Dextrose 50%) 25 ml Q30M PRN IV Hypoglycemia 09/16/19 18:45 10/14/19 14:44 Dextrose (Dextrose 50%) 50 ml Q30M PRN IV Hypoglycemia 09/16/19 18:45 10/14/19 14:44 Dextrose/ Electrolytes 1,000 ml @ 75 mls/hr [id number] IV 09/20/19 13:30 10/20/19 13:29 09/21/19 02:09 Ertapenem 1 gm/ Sodium Chloride 55 ml @ 110 mls/hr Q24H IVPB 09/19/19 13:00 09/24/19 12:59 09/20/19 12:41 Famotidine (Pepcid) 20 mg BID GT 09/18/19 18:00 10/18/19 17:59 09/21/19 09:44 Fenofibrate (Tricor) 145 mg DAILY ORAL 09/17/19 09:00 10/15/19 08:59 09/21/19 09:45 Heparin Sodium (Porcine) (Heparin 5000 units/ml) 5,000 units EVERY 12 HOURS SUBQ 09/16/19 21:00 10/14/19 20:59 09/21/19 09:50 Insulin Aspart (NovoLOG) EVERY 6 HOURS SUBQ 09/20/19 12:00 10/14/19 16:29 09/21/19 06:12 Levetiracetam (Keppra) 1,000 mg Q8H GT 09/19/19 02:00 10/19/19 01:59 09/21/19 09:44 Lorazepam (Ativan 2mg/ml 1ml) 2 mg Q2H PRN IV For Anxiety 09/16/19 18:43 09/23/19 18:42 Morphine Sulfate (Morphine Sulfate) 4 mg Q4H PRN IVP Severe Pain (Pain Scale 7-10) 09/16/19 18:44 09/23/19 18:43 Ondansetron HCl (Zofran) 4 mg Q6H PRN IVP Nausea & Vomiting 09/16/19 18:44 10/16/19 18:43 Polyethylene Glycol (Miralax) 17 gm DAILYPRN PRN GT Constipation 09/16/19 18:44 10/16/19 18:43 Potassium Phosphate 20 mm/ Sodium Chloride 281.6667 ml @ 46.944 m... ONCE ONCE IV 09/21/19 12:00 09/21/19 17:59 Sitagliptin Phosphate (Januvia) 50 mg ACBREAKFAST GT 09/17/19 06:30 10/15/19 06:29 09/21/19 06:10 Tamsulosin HCl (Flomax) 0.4 mg DAILY ORAL 09/17/19 09:00 10/17/19 08:59 09/21/19 09:44 Laboratory Tests 09/21/19 06:45: White Blood Count 8.7, Red Blood Count 3.58L, Hemoglobin 10.5L, Hematocrit 33.0L , Mean Corpuscular Volume 92, Mean Corpuscular Hemoglobin 29.4, Mean Corpuscular Hemoglobin Concent 31.8L, Red Cell Distribution Width 16.0H, Platelet Count 315, Mean Platelet Volume 8.4, Neutrophils (%) (Auto) 60.9, Lymphocytes (%) (Auto) 16.6L, Monocytes (%) (Auto) 7.2, Eosinophils (%) (Auto) 13.6H, Basophils (%) (Auto) 1.7, Sodium Level 140, Potassium Level 3.5, Chloride Level 108H, Carbon Dioxide Level 20L, Anion Gap 12, Blood Urea Nitrogen 6L, Creatinine 0.9, Estimat Glomerular Filtration Rate > 60, Glucose Level 179H, Uric Acid 6.4, Calcium Level 9.7, Phosphorus Level 2.2L, Magnesium Level 1.8, Total Bilirubin 0.3, Direct Bilirubin 0.1, Aspartate Amino Transf ( AST/SGOT) 37, Alanine Aminotransferase (ALT/SGPT) 26, Alkaline Phosphatase 78, Total Protein 7.2, Albumin 2.3L 09/21/19 08:34: Arterial Blood pH 7.443, Arterial Blood Partial Pressure CO2 26.1L, Arterial Blood Partial Pressure O2 154.9H, Arterial Blood HCO3 17.4*L, Arterial Blood Oxygen Saturation 98.3, Arterial Blood Base Excess -5.5L, Kameron Test Positive Height (Feet): 5 Height (Inches): 7.00 Weight (Pounds): 204 Objective exam stable kendrick indwelling, blood-tinged/hermelindo urine, some debris minimal bleeding at penile meatus Manohar Villarreal MD Sep 21, 2019 11:13
[2019-09-21 12:00] VITALS: BP 115/77
[2019-09-21] MEDS ORDERED: Potassium Phosphate 20 MM in NS 275 ML IV ONE (12:00)
[2019-09-21] MEDS: Ertapenem 1 GM in NS 55 ML IVPB SCH (13:34)
[2019-09-21 16:00] VITALS: BP 100/73
[2019-09-21 20:00] VITALS: BP 100/68
[2019-09-22] VITALS: BP 120/91
[2019-09-22] MEDS: levETIRAcetam 500mg/5ml Liquid GT SCH ×3 (01:09→17:29)
[2019-09-22 04:00] VITALS: BP 121/81
[2019-09-22] MEDS: D5W w/KCl 20mEq 1,000 ML IV SCH (05:43)
[2019-09-22] MEDS: NovoLOG Insulin Flexpen SUBQ SCH ×3 (05:46→17:30)
[2019-09-22] MEDS: sitaGLIPtin 50mg tab GT SCH (05:47)
[2019-09-22 06:23] LABS: BASOPHILS % (AUTO) 3.7 % (0.0-2.0); HEMOGLOBIN 8.2 G/DL (14.2-18.0); LYMPHOCYTES % (AUTO) 6.6 % (20.0-45.0); MEAN CORPUSCULAR VOLUME 96 FL (80-99); NEUTROPHILS % (AUTO) 67.7 % (45.0-75.0); PLATELET COUNT 221 K/UL (150-450); RED BLOOD COUNT 2.83 M/UL (4.70-6.10); RED CELL DISTRIBUTION WIDTH 17.9 % (11.6-14.8); WHITE BLOOD COUNT 9.7 K/UL (4.8-10.8)
[2019-09-22 06:34] LABS: ANION GAP 16 mmol/L (5-15); BLOOD UREA NITROGEN 21 mg/dL (7-18); CALCIUM 10.3 MG/DL (8.5-10.1); CARBON DIOXIDE 18 MMOL/L (21-32); CHLORIDE 119 MMOL/L (98-107); CREATININE 1.1 MG/DL (0.55-1.30); POTASSIUM 3.4 MMOL/L (3.5-5.1); SODIUM 152 MMOL/L (136-145)
[2019-09-22 08:00] VITALS: BP 131/78
--- NOTE | 2019-09-22 08:49 | Urology Progress Note ---
Assessment/Plan Assessment/Plan: 1. Urinary retention. 2. BPH. 3. Neurogenic bladder. 4. Incontinence. 5. Pyuria/UTI/colonized. 6. Hematuria. 7. Proteinuria. 8. Renal insufficiency, acute possibly on chronic. 9. Renal cyst. 10. Nephrolithiasis. 11. POD # 5, cysto/optic urethrotomy monitor clinically kendrick placed 09/17 hand irrigated and do PRN abx as ordered consider antifungals, per ID Subjective Allergies: Coded Allergies: AZTREONAM (Verified Allergy, Unknown, 05/13/18) Subjective all noted, kendrick draining, non-verbal Objective Last 24 Hour Vital Signs Date Time Temp Pulse Resp B/P (MAP) Pulse Ox O2 Delivery O2 Flow Rate FiO2 09/22/19 07:13 100 15 30 09/22/19 04:51 97 16 30 09/22/19 04:00 98.4 95 24 121/81 (94) 97 09/22/19 04:00 30 09/22/19 04:00 97 09/22/19 04:00 Mechanical Ventilator 09/22/19 02:55 95 14 30 09/22/19 01:13 100 16 30 09/22/19 00:00 98 09/22/19 00:00 98.1 97 20 120/91 (101) 100 09/22/19 00:00 Mechanical Ventilator 09/22/19 00:00 30 09/21/19 23:32 98 14 30 09/21/19 21:39 102 16 30 09/21/19 20:00 101 09/21/19 20:00 30 09/21/19 20:00 98.1 100 20 100/68 (79) 100 09/21/19 20:00 Mechanical Ventilator 09/21/19 19:43 104 18 30 09/21/19 17:20 101 19 30 09/21/19 16:00 30 09/21/19 16:00 Mechanical Ventilator 09/21/19 16:00 97.9 99 17 100/73 (82) 100 09/21/19 16:00 103 09/21/19 14:56 105 19 30 09/21/19 13:01 98 16 30 09/21/19 12:00 30 09/21/19 12:00 99 09/21/19 12:00 Mechanical Ventilator 09/21/19 12:00 96.8 98 19 115/77 (90) 100 12/1/19 10:39 100 16 30 09/21/19 09:00 30 Intake and Output 09/21/19 09/22/19 18:59 06:59 Intake Total 2028.664 ml 1422 ml Output Total 2500 ml 1600 ml Balance -471.336 ml -178 ml Free Water 750 ml 200 ml IV Total 858.664 ml 862 ml Tube Feeding 420 ml 360 ml Output Urine Total 2200 ml 1300 ml Stool Total 300 ml 300 ml Microbiology Date/Time Source Procedure Growth Status 09/14/19 09:15 Blood Blood Culture - Final NO GROWTH AFTER 5 DAYS Complete 09/15/19 11:00 Nasal Nares - Final Complete 09/15/19 11:00 Nasal Nares - Final Complete 09/16/19 03:00 Urine,Clean Catch Urine Culture - Final Camelia Parapsilosis Complete 09/14/19 09:10 Rectum VRE Culture - Final Enterococcus Faecium - Vre Complete Current Medications Medications (Trade) Dose Ordered Sig/Va Route PRN Reason Start Time Stop Time Status Last Admin Dose Admin Acetaminophen (Tylenol) 650 mg Q4H PRN GT Mild Pain/Temp > 100.6 09/16/19 18:42 10/16/19 18:41 Albuterol/ Ipratropium (Albuterol/ Ipratropium) 3 ml Q4H PRN HHN Shortness of Breath 09/20/19 12:20 09/25/19 12:19 Artificial Tears (Akwa-Tears) 2 drop Q12HR BOTH EYES 09/16/19 21:00 10/14/19 20:59 09/21/19 21:14 Baclofen (Lioresal) 10 mg THREE TIMES A DAY GT 09/17/19 09:00 10/14/19 17:59 09/21/19 18:13 Calcitonin [place] (Miacalcin) 1 sprays DAILY NASAL 09/18/19 12:00 10/18/19 11:59 09/21/19 09:43 Chlorhexidine Gluconate (Rebecca-Hex 2%) 1 applic DAILY@1999 TOPIC 09/22/19 20:00 10/22/19 19:59 Clobetasol Propionate (Temovate) 1 applic EVERY 12 HOURS TOPIC 09/16/19 21:00 10/14/19 20:59 09/21/19 21:15 Dextrose (Dextrose 50%) 25 ml Q30M PRN IV Hypoglycemia 09/16/19 18:45 10/14/19 14:44 Dextrose (Dextrose 50%) 50 ml Q30M PRN IV Hypoglycemia 09/16/19 18:45 10/14/19 14:44 Dextrose/ Electrolytes 1,000 ml @ 75 mls/hr [id number] IV 09/20/19 13:30 10/20/19 13:29 09/22/19 05:43 Ertapenem 1 gm/ Sodium Chloride 55 ml @ 110 mls/hr Q24H IVPB 09/19/19 13:00 09/24/19 12:59 09/21/19 13:34 Famotidine (Pepcid) 20 mg BID GT 09/18/19 18:00 10/18/19 17:59 09/21/19 18:13 Fenofibrate (Tricor) 145 mg DAILY ORAL 09/17/19 09:00 10/15/19 08:59 09/21/19 09:45 Heparin Sodium (Porcine) (Heparin 5000 units/ml) 5,000 units EVERY 12 HOURS SUBQ 09/16/19 21:00 10/14/19 20:59 09/21/19 21:18 Insulin Aspart (NovoLOG) EVERY 6 HOURS SUBQ 09/20/19 12:00 10/14/19 16:29 09/22/19 05:46 Levetiracetam (Keppra) 1,000 mg Q8H GT 09/19/19 02:00 10/19/19 01:59 09/22/19 01:09 Lorazepam (Ativan 2mg/ml 1ml) 2 mg Q2H PRN IV For Anxiety 09/16/19 18:43 09/23/19 18:42 Morphine Sulfate (Morphine Sulfate) 4 mg Q4H PRN IVP Severe Pain (Pain Scale 7-10) 09/16/19 18:44 09/23/19 18:43 Ondansetron HCl (Zofran) 4 mg Q6H PRN IVP Nausea & Vomiting 09/16/19 18:44 10/16/19 18:43 Polyethylene Glycol (Miralax) 17 gm DAILYPRN PRN GT Constipation 09/16/19 18:44 10/16/19 18:43 Sitagliptin Phosphate (Januvia) 50 mg ACBREAKFAST GT 09/17/19 06:30 10/15/19 06:29 09/22/19 05:47 Tamsulosin HCl (Flomax) 0.4 mg DAILY ORAL 09/17/19 09:00 10/17/19 08:59 09/21/19 09:44 Laboratory Tests 09/22/19 05:50: White Blood Count 9.7, Red Blood Count 2.83L, Hemoglobin 8.2L, Hematocrit 27.0L , Mean Corpuscular Volume 96, Mean Corpuscular Hemoglobin 29.0, Mean Corpuscular Hemoglobin Concent 30.3L, Red Cell Distribution Width 17.9H, Platelet Count 221, Mean Platelet Volume 5.9L, Neutrophils (%) (Auto) 67.7, Lymphocytes (%) (Auto) 6.6L, Monocytes (%) (Auto) 3.0, Eosinophils (%) (Auto) 19.0H, Basophils (%) (Auto) 3.7H, Sodium Level 152#H, Potassium Level 3.4L, Chloride Level 119H, Carbon Dioxide Level 18L, Anion Gap 16H, Blood Urea Nitrogen 21H, Creatinine 1.1, Estimat Glomerular Filtration Rate > 60, Glucose Level 174H, Calcium Level 10.3H, Phosphorus Level 3.0 Height (Feet): 5 Height (Inches): 7.00 Weight (Pounds): 202 Objective exam stable kendrick indwelling, blood-tinged/hermelindo urine, some debris minimal bleeding at penile meatus Manohar Villarreal MD Sep 22, 2019 08:49
[2019-09-22] MEDS: Clobetasol Cream 0.05% 15gm TOPIC SCH ×2 (09:20→21:08)
[2019-09-22] MEDS: Tamsulosin 0.4mg cap ORAL SCH (09:21)
[2019-09-22] MEDS: Heparin 5000 units/ml inj SUBQ SCH ×2 (09:22→21:09)
[2019-09-22 10:50] LABS: ALANINE AMINOTRANSFERASE 21 U/L (12-78); ALBUMIN 2.5 G/DL (3.4-5.0); ALKALINE PHOSPHATASE 41 U/L (46-116); ASPARTATE AMINO TRANSFERASE 33 U/L (15-37); BILIRUBIN,DIRECT 0.1 MG/DL (0.0-0.3); BILIRUBIN,TOTAL 0.4 MG/DL (0.2-1.0)
--- NOTE | 2019-09-22 11:55 | Consultation ---
History of Present Illness General Date patient seen: Sep 22, 2019 Time patient seen: 11:49 Chief Complaint: General Complaint Reason for Consultation: Sacral ulcer Present Illness HPI Patient is a 54 yom admitted to [facility] [place] [facility] [place] tachycardia and fevers. He is bedridden with trach/g-tube. Unable to give history. He has a h/o intracranial bleed s/p shunt placement. unclear how long he has had the sacral ulcer. He had it upon presentation to ER. He is from a SNF. He was found to have urosepsis and had a kendrick catheter placed by urology. Allergies: Coded Allergies: AZTREONAM (Verified Allergy, Unknown, 05/13/18) Medication History Scheduled Baclofen* (Baclofen*), 10 MG GT THREE TIMES A DAY, (Reported) Chlorhexidine Gluconate (Peridex), 15 ML PO Q12HR, (Reported) Cholecalciferol (Vitamin D3) (Vitamin D3), 5,000 UNIT GT DAILY, (Reported) Clobetasol Propionate/Emoll (Clobetasol Emollient 0.05% Crm), 15 GM TP DAILY, ( Reported) Cranberry Extract (Cranberry), 425 MG GT DAILY, (Reported) Cranberry Extract (Cranberry), 425 MG GT DAILY, (Reported) Dextran 70/Hypromellose (Artificial Tears Eye Drops*), 1 DROP BOTH EYES BID, ( Reported) Fenofibrate,Micronized (Fenofibrate), 200 MG GT DAILY, (Reported) Heparin Sod (Porcine) (Heparin Sodium*), 5,000 UNITS SUBQ EVERY 12 HOURS, ( Reported) Insulin Regular, Human* (Novolin R*), 0 SUBQ .SLIDING SCALE, (Reported) Ipratropium/Albuterol Sulfate (DuoNeb 0.5-3(2.5)mg/3ml), 3 ML HHN Q6HR, ( Reported) Lansoprazole* (Lansoprazole*), 30 MG GT DAILY, (Reported) Levetiracetam* (Levetiracetam*), 1,000 MG GT TID, (Reported) Multivitamin With Minerals (Multivitamins With Minerals*), 1 TAB GT DAILY, ( Reported) Nph, Human Insulin Isophane* (Novolin N*), 15 UNITS SUBQ BID, (Reported) Sitagliptin (Januvia), 50 MG GT DAILY, (Reported) Zinc Oxide (Skin Protectant), 1 APPLIC TP DAILY, (Reported) Scheduled PRN Acetaminophen 160MG/5ML* (Acetaminophen*), 20.3 ML GT Q4HR PRN for Fever/ Headache/Mild Pain, (Reported) Ipratropium/Albuterol Sulfate (DuoNeb 0.5-3(2.5)mg/3ml), 3 ML HHN Q2HR PRN for Shortness of Breath, (Reported) Polyethylene Glycol 3350* (Miralax*), 17 GM GT DAILY PRN for Constipation, ( Reported) Discontinued Medications Cholecalciferol (Vitamin D3)* (Vitamin D*), 5,000 UNIT GT ONCE A WEEK, (Reported ) Discontinued Reason: Prescription changed Cranberry (Cranberry), 400 MG GT DAILY, (Reported) Discontinued Reason: Prescription changed Fenofibrate,Micronized (Fenofibrate), 200 GT DAILY, (Reported) Discontinued Reason: Prescription changed Insulin NPH Hum/Reg Insulin Hm (Novolin 70-30 Flexpen), 15 UNIT SQ Q12HR, ( Reported) Discontinued Reason: Prescription changed Patient History Limited by: medical condition History Provided By: Medical Record Healthcare decision maker arnaldo Perez Resuscitation status Full Code Advanced Directive on File Past Medical/Surgical History Past Medical/Surgical History: (1) ATN (acute tubular necrosis) (2) Urinary retention (3) Diabetes mellitus (4) Vegetative state (5) Gastrostomy tube dependent Physical Exam General Appearance: no apparent distress, obese Lines, tubes and drains: PICC, trach, gtube, kendrick cath Respiratory/Chest: no respiratory distress Abdomen: soft Skin Exam: other - Stage 3 sacral pressure ulcer with fibrotic debris at the base. Periskin is moist with some maceration. No erythema or warmth. No odor from ulcer. Left ventral wrist with superficial ulcer with granular base. No erythema or warmth. Last 24 Hour Vital Signs Date Time Temp Pulse Resp B/P (MAP) Pulse Ox O2 Delivery O2 Flow Rate FiO2 09/22/19 10:40 100 18 30 09/22/19 09:28 99 15 30 09/22/19 08:00 Mechanical Ventilator 09/22/19 08:00 97.8 102 17 131/78 (95) 100 09/22/19 08:00 30 09/22/19 07:43 98 09/22/19 07:13 100 15 30 09/22/19 04:51 97 16 30 09/22/19 04:00 98.4 95 24 121/81 (94) 97 09/22/19 04:00 30 09/22/19 04:00 97 09/22/19 04:00 Mechanical Ventilator 09/22/19 02:55 95 14 30 09/22/19 01:13 100 16 30 09/22/19 00:00 98 09/22/19 00:00 98.1 97 20 120/91 (101) 100 09/22/19 00:00 Mechanical Ventilator 09/22/19 00:00 30 09/21/19 23:32 98 14 30 09/21/19 21:39 102 16 30 09/21/19 20:00 101 09/21/19 20:00 30 09/21/19 20:00 98.1 100 20 100/68 (79) 100 09/21/19 20:00 Mechanical Ventilator 09/21/19 19:43 104 18 30 09/21/19 17:20 101 19 30 09/21/19 16:00 30 09/21/19 16:00 Mechanical Ventilator 09/21/19 16:00 97.9 99 17 100/73 (82) 100 09/21/19 16:00 103 09/21/19 14:56 105 19 30 09/21/19 13:01 98 16 30 09/21/19 12:00 30 09/21/19 12:00 99 09/21/19 12:00 Mechanical Ventilator 09/21/19 12:00 96.8 98 19 115/77 (90) 100 Intake and Output 09/21/19 09/22/19 18:59 06:59 Intake Total 2028.664 ml 1422 ml Output Total 2500 ml 1600 ml Balance -471.336 ml -178 ml Free Water 750 ml 200 ml IV Total 858.664 ml 862 ml Tube Feeding 420 ml 360 ml Output Urine Total 2200 ml 1300 ml Stool Total 300 ml 300 ml Laboratory Tests Test 09/22/19 05:50 09/22/19 10:28 White Blood Count 9.7 K/UL (4.8-10.8) Red Blood Count 2.83 M/UL (4.70-6.10) L Hemoglobin 8.2 G/DL (14.2-18.0) L Hematocrit 27.0 % (42.0-52.0) L Mean Corpuscular Volume 96 FL (80-99) Mean Corpuscular Hemoglobin 29.0 PG (27.0-31.0) Mean Corpuscular Hemoglobin Concent 30.3 G/DL (32.0-36.0) L Red Cell Distribution Width 17.9 % (11.6-14.8) H Platelet Count 221 K/UL (150-450) Mean Platelet Volume 5.9 FL (6.5-10.1) L Neutrophils (%) (Auto) 67.7 % (45.0-75.0) Lymphocytes (%) (Auto) 6.6 % (20.0-45.0) L Monocytes (%) (Auto) 3.0 % (1.0-10.0) Eosinophils (%) (Auto) 19.0 % (0.0-3.0) H Basophils (%) (Auto) 3.7 % (0.0-2.0) H Sodium Level 152 MMOL/L (136-145) #H Potassium Level 3.4 MMOL/L (3.5-5.1) L Chloride Level 119 MMOL/L (98-107) H Carbon Dioxide Level 18 MMOL/L (21-32) L Anion Gap 16 mmol/L (5-15) H Blood Urea Nitrogen 21 mg/dL (7-18) H Creatinine 1.1 MG/DL (0.55-1.30) Estimat Glomerular Filtration Rate > 60 mL/min (>60) Glucose Level 174 MG/DL (74-106) H Calcium Level 10.3 MG/DL (8.5-10.1) H Phosphorus Level 3.0 MG/DL (2.5-4.9) 3.0 MG/DL (2.5-4.9) Magnesium Level 1.9 MG/DL (1.8-2.4) Total Bilirubin 0.4 MG/DL (0.2-1.0) Direct Bilirubin 0.1 MG/DL (0.0-0.3) Aspartate Amino Transf (AST/SGOT) 33 U/L (15-37) Alanine Aminotransferase (ALT/SGPT) 21 U/L (12-78) Alkaline Phosphatase 41 U/L (46-116) L Total Protein 6.5 G/DL (6.4-8.2) Albumin 2.5 G/DL (3.4-5.0) L Height (Feet): 5 Height (Inches): 7.00 Weight (Pounds): 202 Medications Current Medications Medications (Trade) Dose Ordered Sig/Va Route PRN Reason Start Time Stop Time Status Last Admin Dose Admin Acetaminophen (Tylenol) 650 mg Q4H PRN GT Mild Pain/Temp > 100.6 09/16/19 18:42 10/16/19 18:41 Albuterol/ Ipratropium (Albuterol/ Ipratropium) 3 ml Q4H PRN HHN Shortness of Breath 09/20/19 12:20 09/25/19 12:19 Artificial Tears (Akwa-Tears) 2 drop Q12HR BOTH EYES 09/16/19 21:00 10/14/19 20:59 09/22/19 09:20 Baclofen (Lioresal) 10 mg THREE TIMES A DAY GT 09/17/19 09:00 10/14/19 17:59 09/22/19 09:21 Calcitonin [place] (Miacalcin) 1 sprays DAILY NASAL 09/18/19 12:00 10/18/19 11:59 09/22/19 09:20 Chlorhexidine Gluconate (Rebecca-Hex 2%) 1 applic DAILY@2000 TOPIC 09/22/19 20:00 10/22/19 19:59 Clobetasol Propionate (Temovate) 1 applic EVERY 12 HOURS TOPIC 09/16/19 21:00 10/14/19 20:59 09/22/19 09:20 Dextrose (Dextrose 50%) 25 ml Q30M PRN IV Hypoglycemia 09/16/19 18:45 10/14/19 14:44 Dextrose (Dextrose 50%) 50 ml Q30M PRN IV Hypoglycemia 09/16/19 18:45 10/14/19 14:44 Dextrose/ Electrolytes 1,000 ml @ 75 mls/hr [id number] IV 09/20/19 13:30 10/20/19 13:29 09/22/19 05:43 Ertapenem 1 gm/ Sodium Chloride 55 ml @ 110 mls/hr Q24H IVPB 09/19/19 13:00 09/24/19 12:59 09/21/19 13:34 Famotidine (Pepcid) 20 mg BID GT 09/18/19 18:00 10/18/19 17:59 09/22/19 09:21 Fenofibrate (Tricor) 145 mg DAILY ORAL 09/17/19 09:00 10/15/19 08:59 09/22/19 09:21 Heparin Sodium (Porcine) (Heparin 5000 units/ml) 5,000 units EVERY 12 HOURS SUBQ 09/16/19 21:00 10/14/19 20:59 09/22/19 09:22 Insulin Aspart (NovoLOG) EVERY 6 HOURS SUBQ 09/20/19 12:00 10/14/19 16:29 09/22/19 05:46 Levetiracetam (Keppra) 1,000 mg Q8H GT 09/19/19 02:00 10/19/19 01:59 09/22/19 09:20 Lorazepam (Ativan 2mg/ml 1ml) 2 mg Q2H PRN IV For Anxiety 09/16/19 18:43 09/23/19 18:42 Morphine Sulfate (Morphine Sulfate) 4 mg Q4H PRN IVP Severe Pain (Pain Scale 7-10) 09/16/19 18:44 09/23/19 18:43 Ondansetron HCl (Zofran) 4 mg Q6H PRN IVP Nausea & Vomiting 09/16/19 18:44 10/16/19 18:43 Polyethylene Glycol (Miralax) 17 gm DAILYPRN PRN GT Constipation 09/16/19 18:44 10/16/19 18:43 Sitagliptin Phosphate (Januvia) 50 mg ACBREAKFAST GT 09/17/19 06:30 10/15/19 06:29 09/22/19 05:47 Tamsulosin HCl (Flomax) 0.4 mg DAILY ORAL 09/17/19 09:00 10/17/19 08:59 09/22/19 09:21 Assessment/Plan Status: stable Assessment/Plan: Patient with stage 3 sacral pressure ulcer. Given his body habitus it will be important to offload this area. Need to turn q 2 hours. Also need to keep the area moisture controlled. Given the degree of maceration, recommend alginate dressing to the sacral ulcer. Left wrist ulcer may be due to shearing. No need for surgical intervention at this time. Manohar Concepcion MD Sep 22, 2019 11:55
[2019-09-22 12:00] VITALS: BP 117/73
--- NOTE | 2019-09-22 12:01 | Pulmonolgy Critical Care Note ---
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 (7) ATN (acute tubular necrosis) Respiratory: monitor respiratory rate, adjust FIO2, CXR, weaning trial Cardiac: continue to monitor HR/BP Renal: F/U I&O, keep IV fluid, check electrolytes, other - K in IVF Infectious Disease: check cultures Gastrointestinal: continue feedings/current rate Endocrine: monitor blood sugar, continue sliding scale insulin Hematologic: monitor H/H, transfuse if hgb<8.5 Neurologic: PRN Ativan, PRN Morphine, keep patient comfortable Affect: PRN ativan Time Spent (Minutes): 40 Notes Reviewed: cardio Discussed with: nurses, consultants Critical Care - Objective Last 24 Hour Vital Signs Date Time Temp Pulse Resp B/P (MAP) Pulse Ox O2 Delivery O2 Flow Rate FiO2 09/22/19 10:40 100 18 30 09/22/19 09:28 99 15 30 09/22/19 08:00 Mechanical Ventilator 09/22/19 08:00 97.8 102 17 131/78 (95) 100 09/22/19 08:00 30 09/22/19 07:43 98 09/22/19 07:13 100 15 30 09/22/19 04:51 97 16 30 09/22/19 04:00 98.4 95 24 121/81 (94) 97 09/22/19 04:00 30 09/22/19 04:00 97 09/22/19 04:00 Mechanical Ventilator 09/22/19 02:55 95 14 30 09/22/19 01:13 100 16 30 09/22/19 00:00 98 09/22/19 00:00 98.1 97 20 120/91 (101) 100 09/22/19 00:00 Mechanical Ventilator 09/22/19 00:00 30 09/21/19 23:32 98 14 30 09/21/19 21:39 102 16 30 09/21/19 20:00 101 09/21/19 20:00 30 09/21/19 20:00 98.1 100 20 100/68 (79) 100 09/21/19 20:00 Mechanical Ventilator 09/21/19 19:43 104 18 30 09/21/19 17:20 101 19 30 09/21/19 16:00 30 09/21/19 16:00 Mechanical Ventilator 09/21/19 16:00 97.9 99 17 100/73 (82) 100 09/21/19 16:00 103 09/21/19 14:56 105 19 30 09/21/19 13:01 98 16 30 09/21/19 12:00 30 09/21/19 12:00 99 09/21/19 12:00 Mechanical Ventilator 09/21/19 12:00 96.8 98 19 115/77 (90) 100 Status: obtunded Condition: critical HEENT: atraumatic Neck: full ROM Lungs: rales, rhonchi Heart: HR/BP stable Abdomen: soft, non-tender Extremities: no C/C/E, edema Accucheck: 161 Critical Care - Subjective ROS Limited/Unobtainable: Yes Condition: critical EKG Rhythm: Sinus Rhythm FI02: 30 Vent Support Breath Rate: 14 Vent Support Mode: AC Vent Tidal Volume: 600 Sputum Amount: Scant PEEP: 5.0 PIP: 38 Tube Feeding Amount: 30 I&O: Intake and Output 09/21/19 09/22/19 19:00 07:00 Intake Total 1685.664 ml 1430 ml Output Total 1750 ml 1600 ml Balance -64.336 ml -170 ml Free Water 550 ml 200 ml IV Total 745.664 ml 900 ml Tube Feeding 390 ml 330 ml Output Urine Total 1600 ml 1300 ml Stool Total 150 ml 300 ml CXR: YESSICA Labs: Laboratory Tests Test 09/22/19 05:50 09/22/19 10:28 White Blood Count 9.7 K/UL (4.8-10.8) Red Blood Count 2.83 M/UL (4.70-6.10) L Hemoglobin 8.2 G/DL (14.2-18.0) L Hematocrit 27.0 % (42.0-52.0) L Mean Corpuscular Volume 96 FL (80-99) Mean Corpuscular Hemoglobin 29.0 PG (27.0-31.0) Mean Corpuscular Hemoglobin Concent 30.3 G/DL (32.0-36.0) L Red Cell Distribution Width 17.9 % (11.6-14.8) H Platelet Count 221 K/UL (150-450) Mean Platelet Volume 5.9 FL (6.5-10.1) L Neutrophils (%) (Auto) 67.7 % (45.0-75.0) Lymphocytes (%) (Auto) 6.6 % (20.0-45.0) L Monocytes (%) (Auto) 3.0 % (1.0-10.0) Eosinophils (%) (Auto) 19.0 % (0.0-3.0) H Basophils (%) (Auto) 3.7 % (0.0-2.0) H Sodium Level 152 MMOL/L (136-145) #H Potassium Level 3.4 MMOL/L (3.5-5.1) L Chloride Level 119 MMOL/L (98-107) H Carbon Dioxide Level 18 MMOL/L (21-32) L Anion Gap 16 mmol/L (5-15) H Blood Urea Nitrogen 21 mg/dL (7-18) H Creatinine 1.1 MG/DL (0.55-1.30) Estimat Glomerular Filtration Rate > 60 mL/min (>60) Glucose Level 174 MG/DL (74-106) H Calcium Level 10.3 MG/DL (8.5-10.1) H Phosphorus Level 3.0 MG/DL (2.5-4.9) 3.0 MG/DL (2.5-4.9) Magnesium Level 1.9 MG/DL (1.8-2.4) Total Bilirubin 0.4 MG/DL (0.2-1.0) Direct Bilirubin 0.1 MG/DL (0.0-0.3) Aspartate Amino Transf (AST/SGOT) 33 U/L (15-37) Alanine Aminotransferase (ALT/SGPT) 21 U/L (12-78) Alkaline Phosphatase 41 U/L (46-116) L Total Protein 6.5 G/DL (6.4-8.2) Albumin 2.5 G/DL (3.4-5.0) Nico Olivares MD Sep 22, 2019 12:01
--- NOTE | 2019-09-22 12:05 | Infectious Diseases Prog Note ---
Assessment/Plan Assessment/Plan Assessment: Severe Sepsis- likely 2ry to UTI- Probable PNA -Bcx NTD -u/a wbc tnct, nit neg, leuk +3; ucx C. parasilopsis -sp cx ESBL P. mirabilis, MDR P. stuarti (S Cefepime, Zosyn, Ertapenem) -CXR: Geographic density overlying the right upper lung. This likely represents overlying soft tissue although cannot exclude an underlying consolidation/pneumonia. Pulmonary vascular congestion. Small left pleural effusion. Subsegmental atelectasis versus infiltrate in the left lung base. -Influenza A/B ag neg Fever, SP Leukocytosis, SP DIVYA, SP Mild AST elevation, SP -Abd uS: Hepatomegaly with fatty infiltration. Suspected nonobstructive stone left kidney. Left renal cyst Sacral decubitus hx of recurrent UTIs -UCx 11/17/18 P.a. (R Levo, otherwise S) - CT abd 11/19/18 3 mm distal right ureteral calculus, minimal resultant hydronephrosis. 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 Will continue to follow along with you. Discussed with RN Subjective Allergies: Coded Allergies: AZTREONAM (Verified Allergy, Unknown, 05/13/18) Subjective afebrile no leukocytosis BCx NTD Objective Vital Signs Last 24 Hour Vital Signs Date Time Temp Pulse Resp B/P (MAP) Pulse Ox O2 Delivery O2 Flow Rate FiO2 09/22/19 10:40 100 18 30 09/22/19 09:28 99 15 30 09/22/19 08:00 Mechanical Ventilator 09/22/19 08:00 97.8 102 17 131/78 (95) 100 09/22/19 08:00 30 09/22/19 07:43 98 09/22/19 07:13 100 15 30 09/22/19 04:51 97 16 30 09/22/19 04:00 98.4 95 24 121/81 (94) 97 09/22/19 04:00 30 09/22/19 04:00 97 09/22/19 04:00 Mechanical Ventilator 09/22/19 02:55 95 14 30 09/22/19 01:13 100 16 30 09/22/19 00:00 98 09/22/19 00:00 98.1 97 20 120/91 (101) 100 09/22/19 00:00 Mechanical Ventilator 09/22/19 00:00 30 09/21/19 23:32 98 14 30 09/21/19 21:39 102 16 30 09/21/19 20:00 101 09/21/19 20:00 30 09/21/19 20:00 98.1 100 20 100/68 (79) 100 09/21/19 20:00 Mechanical Ventilator 09/21/19 19:43 104 18 30 09/21/19 17:20 101 19 30 09/21/19 16:00 30 09/21/19 16:00 Mechanical Ventilator 09/21/19 16:00 97.9 99 17 100/73 (82) 100 09/21/19 16:00 103 09/21/19 14:56 105 19 30 09/21/19 13:01 98 16 30 Height (Feet): 5 Height (Inches): 7.00 Weight (Pounds): 202 Objective GENERAL: Noncommunicative. Tongue fasciculation. Moderate edema. LUNGS: Diminished breath sounds. CARDIAC: Regular rhythm. Rapid rate. Normal S1, S2. ABDOMEN: Soft with G-tube and colostomy bag. Laboratory Tests Test 09/22/19 05:50 09/22/19 10:28 White Blood Count 9.7 K/UL (4.8-10.8) Red Blood Count 2.83 M/UL (4.70-6.10) L Hemoglobin 8.2 G/DL (14.2-18.0) L Hematocrit 27.0 % (42.0-52.0) L Mean Corpuscular Volume 96 FL (80-99) Mean Corpuscular Hemoglobin 29.0 PG (27.0-31.0) Mean Corpuscular Hemoglobin Concent 30.3 G/DL (32.0-36.0) L Red Cell Distribution Width 17.9 % (11.6-14.8) H Platelet Count 221 K/UL (150-450) Mean Platelet Volume 5.9 FL (6.5-10.1) L Neutrophils (%) (Auto) 67.7 % (45.0-75.0) Lymphocytes (%) (Auto) 6.6 % (20.0-45.0) L Monocytes (%) (Auto) 3.0 % (1.0-10.0) Eosinophils (%) (Auto) 19.0 % (0.0-3.0) H Basophils (%) (Auto) 3.7 % (0.0-2.0) H Sodium Level 152 MMOL/L (136-145) #H Potassium Level 3.4 MMOL/L (3.5-5.1) L Chloride Level 119 MMOL/L (98-107) H Carbon Dioxide Level 18 MMOL/L (21-32) L Anion Gap 16 mmol/L (5-15) H Blood Urea Nitrogen 21 mg/dL (7-18) H Creatinine 1.1 MG/DL (0.55-1.30) Estimat Glomerular Filtration Rate > 60 mL/min (>60) Glucose Level 174 MG/DL (74-106) H Calcium Level 10.3 MG/DL (8.5-10.1) H Phosphorus Level 3.0 MG/DL (2.5-4.9) 3.0 MG/DL (2.5-4.9) Magnesium Level 1.9 MG/DL (1.8-2.4) Total Bilirubin 0.4 MG/DL (0.2-1.0) Direct Bilirubin 0.1 MG/DL (0.0-0.3) Aspartate Amino Transf (AST/SGOT) 33 U/L (15-37) Alanine Aminotransferase (ALT/SGPT) 21 U/L (12-78) Alkaline Phosphatase 41 U/L (46-116) L Total Protein 6.5 G/DL (6.4-8.2) Albumin 2.5 G/DL (3.4-5.0) L Current Medications Medications (Trade) Dose Ordered Sig/Va Route PRN Reason Start Time Stop Time Status Last Admin Dose Admin Acetaminophen (Tylenol) 650 mg Q4H PRN GT Mild Pain/Temp > 100.6 09/16/19 18:42 10/16/19 18:41 Albuterol/ Ipratropium (Albuterol/ Ipratropium) 3 ml Q4H PRN HHN Shortness of Breath 09/20/19 12:20 09/25/19 12:19 Artificial Tears (Akwa-Tears) 2 drop Q12HR BOTH EYES 09/16/19 21:00 10/14/19 20:59 09/22/19 09:20 Baclofen (Lioresal) 10 mg THREE TIMES A DAY GT 09/17/19 09:00 10/14/19 17:59 09/22/19 09:21 Calcitonin [place] (Miacalcin) 1 sprays DAILY NASAL 09/18/19 12:00 10/18/19 11:59 09/22/19 09:20 Chlorhexidine Gluconate (Rebecca-Hex 2%) 1 applic DAILY@2000 TOPIC 09/22/19 20:00 10/22/19 19:59 Clobetasol Propionate (Temovate) 1 applic EVERY 12 HOURS TOPIC 09/16/19 21:00 10/14/19 20:59 09/22/19 09:20 Dextrose (Dextrose 50%) 25 ml Q30M PRN IV Hypoglycemia 09/16/19 18:45 10/14/19 14:44 Dextrose (Dextrose 50%) 50 ml Q30M PRN IV Hypoglycemia 09/16/19 18:45 10/14/19 14:44 Dextrose/ Electrolytes 1,000 ml @ 75 mls/hr [id number] IV 09/20/19 13:30 10/20/19 13:29 09/22/19 05:43 Ertapenem 1 gm/ Sodium Chloride 55 ml @ 110 mls/hr Q24H IVPB 09/19/19 13:00 09/24/19 12:59 09/21/19 13:34 Famotidine (Pepcid) 20 mg BID GT 09/18/19 18:00 10/18/19 17:59 09/22/19 09:21 Fenofibrate (Tricor) 145 mg DAILY ORAL 09/17/19 09:00 10/15/19 08:59 09/22/19 09:21 Heparin Sodium (Porcine) (Heparin 5000 units/ml) 5,000 units EVERY 12 HOURS SUBQ 09/16/19 21:00 10/14/19 20:59 09/22/19 09:22 Insulin Aspart (NovoLOG) EVERY 6 HOURS SUBQ 09/20/19 12:00 10/14/19 16:29 09/22/19 05:46 Levetiracetam (Keppra) 1,000 mg Q8H GT 09/19/19 02:00 10/19/19 01:59 09/22/19 09:20 Lorazepam (Ativan 2mg/ml 1ml) 2 mg Q2H PRN IV For Anxiety 09/16/19 18:43 09/23/19 18:42 Morphine Sulfate (Morphine Sulfate) 4 mg Q4H PRN IVP Severe Pain (Pain Scale 7-10) 09/16/19 18:44 09/23/19 18:43 Ondansetron HCl (Zofran) 4 mg Q6H PRN IVP Nausea & Vomiting 09/16/19 18:44 10/16/19 18:43 Polyethylene Glycol (Miralax) 17 gm DAILYPRN PRN GT Constipation 09/16/19 18:44 10/16/19 18:43 Sitagliptin Phosphate (Januvia) 50 mg ACBREAKFAST GT 09/17/19 06:30 10/15/19 06:29 09/22/19 05:47 Tamsulosin HCl (Flomax) 0.4 mg DAILY ORAL 09/17/19 09:00 10/17/19 08:59 09/22/19 09:21 Maribel Barrera M.D. Sep 22, 2019 12:05
[2019-09-22] MEDS: Ertapenem 1 GM in NS 55 ML IVPB SCH (12:41)
--- NOTE | 2019-09-22 12:58 | Diagnostic Imaging Report ---
Indication: Dyspnea Comparison: 09/19/2019 A single view chest radiograph was obtained. Findings: There is pleural thickening at the left lung base again noted with blunting of the costophrenic angle. Tracheostomy again noted. Heart size is stable. IMPRESSION: No significant change
--- NOTE | 2019-09-22 15:42 | Nephrology Progress Note ---
Assessment/Plan Problem List: (1) Urinary retention (2) Acute on chronic respiratory failure (3) Hypercalcemia (4) Renal failure (ARF), acute on chronic Assessment Hypercalcemia Urinary retention, BPH , Acute on chronic renal failure Electrolyte imbalance Colostomy DM PEG Vegetative state Acute on chronic respiratory failure Plan Free water- K and Phos and Mag supplements pulm support Aredia for high Ca on 09/18 Subjective ROS Limited/Unobtainable: Yes Objective Objective Last 24 Hour Vital Signs Date Time Temp Pulse Resp B/P (MAP) Pulse Ox O2 Delivery O2 Flow Rate FiO2 09/22/19 15:14 100 16 30 09/22/19 13:23 108 20 30 09/22/19 12:00 98.4 98 17 117/73 (88) 100 09/22/19 12:00 Mechanical Ventilator 09/22/19 12:00 30 09/22/19 11:41 101 09/22/19 10:40 100 18 30 09/22/19 09:28 99 15 30 09/22/19 08:00 Mechanical Ventilator 09/22/19 08:00 97.8 102 17 131/78 (95) 100 09/22/19 08:00 30 09/22/19 07:43 98 09/22/19 07:13 100 15 30 09/22/19 04:51 97 16 30 09/22/19 04:00 98.4 95 24 121/81 (94) 97 09/22/19 04:00 30 09/22/19 04:00 97 09/22/19 04:00 Mechanical Ventilator 09/22/19 02:55 95 14 30 09/22/19 01:13 100 16 30 09/22/19 00:00 98 09/22/19 00:00 98.1 97 20 120/91 (101) 100 09/22/19 00:00 Mechanical Ventilator 09/22/19 00:00 30 09/21/19 23:32 98 14 30 09/21/19 21:39 102 16 30 09/21/19 20:00 101 09/21/19 20:00 30 09/21/19 20:00 98.1 100 20 100/68 (79) 100 09/21/19 20:00 Mechanical Ventilator 09/21/19 19:43 104 18 30 09/21/19 17:20 101 19 30 09/21/19 16:00 30 09/21/19 16:00 Mechanical Ventilator 09/21/19 16:00 97.9 99 17 100/73 (82) 100 09/21/19 16:00 103 Intake and Output 09/21/19 09/22/19 19:00 07:00 Intake Total 1685.664 ml 1430 ml Output Total 1750 ml 1600 ml Balance -64.336 ml -170 ml Free Water 550 ml 200 ml IV Total 745.664 ml 900 ml Tube Feeding 390 ml 330 ml Output Urine Total 1600 ml 1300 ml Stool Total 150 ml 300 ml Laboratory Tests 09/22/19 05:50: White Blood Count 9.7, Red Blood Count 2.83L, Hemoglobin 8.2L, Hematocrit 27.0L , Mean Corpuscular Volume 96, Mean Corpuscular Hemoglobin 29.0, Mean Corpuscular Hemoglobin Concent 30.3L, Red Cell Distribution Width 17.9H, Platelet Count 221, Mean Platelet Volume 5.9L, Neutrophils (%) (Auto) 67.7, Lymphocytes (%) (Auto) 6.6L, Monocytes (%) (Auto) 3.0, Eosinophils (%) (Auto) 19.0H, Basophils (%) (Auto) 3.7H, Sodium Level 152#H, Potassium Level 3.4L, Chloride Level 119H, Carbon Dioxide Level 18L, Anion Gap 16H, Blood Urea Nitrogen 21H, Creatinine 1.1, Estimat Glomerular Filtration Rate > 60, Glucose Level 174H, Calcium Level 10.3H, Phosphorus Level 3.0 09/22/19 10:28: Phosphorus Level 3.0, Magnesium Level 1.9, Total Bilirubin 0.4, Direct Bilirubin 0.1, Aspartate Amino Transf (AST/SGOT) 33, Alanine Aminotransferase ( ALT/SGPT) 21, Alkaline Phosphatase 41L, Total Protein 6.5, Albumin 2.5L Height (Feet): 5 Height (Inches): 7.00 Weight (Pounds): 202 General Appearance: no apparent distress EENT: other - trach Cardiovascular: tachycardia Respiratory/Chest: decreased breath sounds Abdomen: soft, distended Cl Zaragoza MD Sep 22, 2019 15:42
[2019-09-22 16:00] VITALS: BP 133/81
[2019-09-22 20:00] VITALS: BP 131/88
[2019-09-22] MEDS ORDERED: Dyna-Hex 2% Top Sol 2oz TOPIC SCH (20:00)
[2019-09-23] VITALS: BP 133/85
[2019-09-23] MEDS: NovoLOG Insulin Flexpen SUBQ SCH ×5 (00:20→23:53)
[2019-09-23] MEDS: levETIRAcetam 500mg/5ml Liquid GT SCH ×3 (02:29→18:10)
[2019-09-23 04:00] VITALS: BP 129/85
[2019-09-23] MEDS: sitaGLIPtin 50mg tab GT SCH (06:05)
[2019-09-23 08:00] VITALS: BP 134/87
[2019-09-23] MEDS: Tamsulosin 0.4mg cap ORAL SCH (09:21)
[2019-09-23] MEDS: Heparin 5000 units/ml inj SUBQ SCH ×2 (09:28→20:56)
[2019-09-23] MEDS: Clobetasol Cream 0.05% 15gm TOPIC SCH ×2 (09:28→20:57)
[2019-09-23 10:20] LABS: ANION GAP 12 mmol/L (5-15); BLOOD UREA NITROGEN 4 mg/dL (7-18); CALCIUM 10.2 MG/DL (8.5-10.1); CARBON DIOXIDE 23 MMOL/L (21-32); CHLORIDE 104 MMOL/L (98-107); CREATININE 0.9 MG/DL (0.55-1.30); POTASSIUM 4.2 MMOL/L (3.5-5.1); SODIUM 139 MMOL/L (136-145)
[2019-09-23 10:26] LABS: ALANINE AMINOTRANSFERASE 32 U/L (12-78); ALBUMIN 2.4 G/DL (3.4-5.0); ALBUMIN/GLOBULIN RATIO 0.5 (1.0-2.7); ALKALINE PHOSPHATASE 88 U/L (46-116); ASPARTATE AMINO TRANSFERASE 43 U/L (15-37); BILIRUBIN,TOTAL 0.2 MG/DL (0.2-1.0); PHOSPHORUS 3.2 MG/DL (2.5-4.9)
--- NOTE | 2019-09-23 10:53 | Infectious Diseases Prog Note ---
Assessment/Plan Assessment/Plan Assessment: Severe Sepsis, SP- likely 2ry to UTI- Probable PNA -Bcx Neg -u/a wbc tnct, nit neg, leuk +3; ucx C. parasilopsis -sp cx ESBL P. mirabilis, MDR P. stuarti (S Cefepime, Zosyn, Ertapenem) -CXR: Geographic density overlying the right upper lung. This likely represents overlying soft tissue although cannot exclude an underlying consolidation/pneumonia. Pulmonary vascular congestion. Small left pleural effusion. Subsegmental atelectasis versus infiltrate in the left lung base. -Influenza A/B ag neg Fever, SP Leukocytosis, SP DIVYA, SP Mild AST elevation, SP -Abd uS: Hepatomegaly with fatty infiltration. Suspected nonobstructive stone left kidney. Left renal cyst Sacral decubitus hx of recurrent UTIs -UCx 11/17/18 P.a. (R Levo, otherwise S) - CT abd 11/19/18 3 mm distal right ureteral calculus, minimal resultant hydronephrosis. 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 Will continue to follow along with you. Discussed with RN Subjective Allergies: Coded Allergies: AZTREONAM (Verified Allergy, Unknown, 05/13/18) Subjective afebrile no leukocytosis BCx Neg Objective Vital Signs Last 24 Hour Vital Signs Date Time Temp Pulse Resp B/P (MAP) Pulse Ox O2 Delivery O2 Flow Rate FiO2 09/23/19 09:02 103 14 30 09/23/19 08:00 Mechanical Ventilator 09/23/19 08:00 98.2 103 20 134/87 (103) 98 09/23/19 08:00 30 09/23/19 07:58 100 09/23/19 07:02 61 18 30 09/23/19 05:29 102 16 30 09/23/19 04:00 30 09/23/19 04:00 98.2 134 21 129/85 (100) 100 09/23/19 04:00 Mechanical Ventilator 09/23/19 04:00 103 09/23/19 03:26 102 15 30 09/23/19 01:00 102 16 30 09/23/19 00:00 Mechanical Ventilator 09/23/19 00:00 30 09/23/19 00:00 107 09/23/19 00:00 98.2 105 16 133/85 (101) 100 09/22/19 23:27 107 17 30 09/22/19 20:46 102 18 30 09/22/19 20:00 30 09/22/19 20:00 Mechanical Ventilator 09/22/19 20:00 104 09/22/19 20:00 99.0 105 16 131/88 (102) 99 09/22/19 19:14 106 19 30 09/22/19 17:18 103 18 30 09/22/19 16:00 98.2 103 17 133/81 (98) 100 09/22/19 16:00 Mechanical Ventilator 09/22/19 16:00 30 09/22/19 15:39 140 09/22/19 15:14 100 16 30 09/22/19 13:23 108 20 30 09/22/19 12:00 98.4 98 17 117/73 (88) 100 09/22/19 12:00 Mechanical Ventilator 09/22/19 12:00 30 09/22/19 11:41 101 Height (Feet): 5 Height (Inches): 7.00 Weight (Pounds): 184 Objective GENERAL: Noncommunicative. Tongue fasciculation. Moderate edema. LUNGS: Diminished breath sounds. CARDIAC: Regular rhythm. Rapid rate. Normal S1, S2. ABDOMEN: Soft with G-tube and colostomy bag. Laboratory Tests Test 09/23/19 09:45 Sodium Level 139 MMOL/L (136-145) Potassium Level 4.2 MMOL/L (3.5-5.1) Chloride Level 104 MMOL/L (98-107) Carbon Dioxide Level 23 MMOL/L (21-32) Anion Gap 12 mmol/L (5-15) Blood Urea Nitrogen 4 mg/dL (7-18) L Creatinine 0.9 MG/DL (0.55-1.30) Estimat Glomerular Filtration Rate > 60 mL/min (>60) Glucose Level 167 MG/DL (74-106) H Calcium Level 10.2 MG/DL (8.5-10.1) H Phosphorus Level 3.2 MG/DL (2.5-4.9) Magnesium Level 1.7 MG/DL (1.8-2.4) L Total Bilirubin 0.2 MG/DL (0.2-1.0) Aspartate Amino Transf (AST/SGOT) 43 U/L (15-37) H Alanine Aminotransferase (ALT/SGPT) 32 U/L (12-78) Alkaline Phosphatase 88 U/L (46-116) Total Protein 7.3 G/DL (6.4-8.2) Albumin 2.4 G/DL (3.4-5.0) L Globulin 4.9 g/dL Albumin/Globulin Ratio 0.5 (1.0-2.7) L Current Medications Medications (Trade) Dose Ordered Sig/Va Route PRN Reason Start Time Stop Time Status Last Admin Dose Admin Acetaminophen (Tylenol) 650 mg Q4H PRN GT Mild Pain/Temp > 100.6 09/16/19 18:42 10/16/19 18:41 Albuterol/ Ipratropium (Albuterol/ Ipratropium) 3 ml Q4H PRN HHN Shortness of Breath 09/20/19 12:20 09/25/19 12:19 Artificial Tears (Akwa-Tears) 2 drop Q12HR BOTH EYES 09/16/19 21:00 10/14/19 20:59 09/23/19 09:28 Baclofen (Lioresal) 10 mg THREE TIMES A DAY GT 09/17/19 09:00 10/14/19 17:59 09/23/19 09:21 Calcitonin [place] (Miacalcin) 1 sprays DAILY NASAL 09/18/19 12:00 10/18/19 11:59 09/23/19 09:29 Chlorhexidine Gluconate (Rebecca-Hex 2%) 1 applic DAILY@1999 TOPIC 09/22/19 20:00 10/22/19 19:59 09/22/19 21:07 Clobetasol Propionate (Temovate) 1 applic EVERY 12 HOURS TOPIC 09/16/19 21:00 10/14/19 20:59 09/23/19 09:28 Dextrose 1,000 ml @ 100 mls/hr Q10H IV 09/22/19 15:45 10/22/19 15:44 09/23/19 02:30 Dextrose (Dextrose 50%) 25 ml Q30M PRN IV Hypoglycemia 09/16/19 18:45 10/14/19 14:44 Dextrose (Dextrose 50%) 50 ml Q30M PRN IV Hypoglycemia 09/16/19 18:45 10/14/19 14:44 Ertapenem 1 gm/ Sodium Chloride 55 ml @ 110 mls/hr Q24H IVPB 09/19/19 13:00 09/24/19 12:59 09/22/19 12:41 Famotidine (Pepcid) 20 mg BID GT 09/18/19 18:00 10/18/19 17:59 09/23/19 09:22 Fenofibrate (Tricor) 145 mg DAILY ORAL 09/17/19 09:00 10/15/19 08:59 09/23/19 09:22 Heparin Sodium (Porcine) (Heparin 5000 units/ml) 5,000 units EVERY 12 HOURS SUBQ 09/16/19 21:00 10/14/19 20:59 09/23/19 09:28 Insulin Aspart (NovoLOG) EVERY 6 HOURS SUBQ 09/20/19 12:00 10/14/19 16:29 09/23/19 06:07 Levetiracetam (Keppra) 1,000 mg Q8H GT 09/19/19 02:00 10/19/19 01:59 09/23/19 09:21 Lorazepam (Ativan 2mg/ml 1ml) 2 mg Q2H PRN IV For Anxiety 09/16/19 18:43 09/23/19 18:42 Morphine Sulfate (Morphine Sulfate) 4 mg Q4H PRN IVP Severe Pain (Pain Scale 7-10) 09/16/19 18:44 09/23/19 18:43 Ondansetron HCl (Zofran) 4 mg Q6H PRN IVP Nausea & Vomiting 09/16/19 18:44 10/16/19 18:43 Polyethylene Glycol (Miralax) 17 gm DAILYPRN PRN GT Constipation 09/16/19 18:44 10/16/19 18:43 Potassium Chloride (K-Dur) 40 meq TWICE A DAY GT 09/22/19 18:00 10/22/19 17:59 09/23/19 09:21 Sitagliptin Phosphate (Januvia) 50 mg ACBREAKFAST GT 09/17/19 06:30 10/15/19 06:29 09/23/19 06:05 Tamsulosin HCl (Flomax) 0.4 mg DAILY ORAL 09/17/19 09:00 10/17/19 08:59 09/23/19 09:21 Maribel Barrera M.D. Sep 23, 2019 10:53
--- NOTE | 2019-09-23 10:56 | Pulmonolgy Critical Care Note ---
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 (7) ATN (acute tubular necrosis) Respiratory: monitor respiratory rate, adjust FIO2, CXR Cardiac: continue to monitor HR/BP Renal: F/U I&O, keep IV fluid, check electrolytes Infectious Disease: check cultures, continue antibiotics Gastrointestinal: continue feedings/current rate Hematologic: monitor H/H, transfuse if hgb<8.5 Neurologic: PRN Ativan, keep patient comfortable Time Spent (Minutes): 40 Notes Reviewed: small business sales representative, cardio, renal Discussed with: nurses, consultants, outsole caserdata operations manager - Objective Last 24 Hour Vital Signs Date Time Temp Pulse Resp B/P (MAP) Pulse Ox O2 Delivery O2 Flow Rate FiO2 09/23/19 09:02 103 14 30 09/23/19 08:00 Mechanical Ventilator 09/23/19 08:00 98.2 103 20 134/87 (103) 98 09/23/19 08:00 30 09/23/19 07:58 100 09/23/19 07:02 61 18 30 09/23/19 05:29 102 16 30 09/23/19 04:00 30 09/23/19 04:00 98.2 134 21 129/85 (100) 100 09/23/19 04:00 Mechanical Ventilator 09/23/19 04:00 103 09/23/19 03:26 102 15 30 09/23/19 01:00 102 16 30 09/23/19 00:00 Mechanical Ventilator 09/23/19 00:00 30 09/23/19 00:00 107 09/23/19 00:00 98.2 105 16 133/85 (101) 100 09/22/19 23:27 107 17 30 09/22/19 20:46 102 18 30 09/22/19 20:00 30 09/22/19 20:00 Mechanical Ventilator 09/22/19 20:00 104 09/22/19 20:00 99.0 105 16 131/88 (102) 99 09/22/19 19:14 106 19 30 09/22/19 17:18 103 18 30 09/22/19 16:00 98.2 103 17 133/81 (98) 100 09/22/19 16:00 Mechanical Ventilator 09/22/19 16:00 30 09/22/19 15:39 140 09/22/19 15:14 100 16 30 09/22/19 13:23 108 20 30 09/22/19 12:00 98.4 98 17 117/73 (88) 100 09/22/19 12:00 Mechanical Ventilator 09/22/19 12:00 30 09/22/19 11:41 101 Status: obtunded Condition: critical HEENT: atraumatic Lungs: rales, rhonchi Heart: HR/BP stable Abdomen: soft, non-tender Accucheck: 159 Critical Care - Subjective ROS Limited/Unobtainable: Yes Condition: critical EKG Rhythm: Sinus Rhythm FI02: 30 Vent Support Breath Rate: 14 Vent Support Mode: AC Vent Tidal Volume: 600 Sputum Amount: Small PEEP: 5.0 PIP: 27 Tube Feeding Amount: 30 I&O: Intake and Output 09/22/19 09/23/19 18:59 06:59 Intake Total 1560 ml 1910 ml Output Total 1600 ml 2150 ml Balance -40 ml -240 ml Free Water 400 ml 400 ml IV Total 630 ml 1150 ml Tube Feeding 330 ml 360 ml Other 200 ml Output Urine Total 1400 ml 2000 ml Stool Total 200 ml 150 ml CXR: clear Labs: Laboratory Tests Test 09/23/19 09:45 Sodium Level 139 MMOL/L (136-145) Potassium Level 4.2 MMOL/L (3.5-5.1) Chloride Level 104 MMOL/L (98-107) Carbon Dioxide Level 23 MMOL/L (21-32) Anion Gap 12 mmol/L (5-15) Blood Urea Nitrogen 4 mg/dL (7-18) L Creatinine 0.9 MG/DL (0.55-1.30) Estimat Glomerular Filtration Rate > 60 mL/min (>60) Glucose Level 167 MG/DL (74-106) H Calcium Level 10.2 MG/DL (8.5-10.1) H Phosphorus Level 3.2 MG/DL (2.5-4.9) Magnesium Level 1.7 MG/DL (1.8-2.4) L Total Bilirubin 0.2 MG/DL (0.2-1.0) Aspartate Amino Transf (AST/SGOT) 43 U/L (15-37) H Alanine Aminotransferase (ALT/SGPT) 32 U/L (12-78) Alkaline Phosphatase 88 U/L (46-116) Total Protein 7.3 G/DL (6.4-8.2) Albumin 2.4 G/DL (3.4-5.0) L Globulin 4.9 g/dL Albumin/Globulin Ratio 0.5 (1.0-2.7) L Nico Goetz MD Sep 23, 2019 10:56
--- NOTE | 2019-09-23 11:21 | Urology Progress Note ---
Assessment/Plan Status: stable Assessment/Plan: 1. Urinary retention. 2. BPH. 3. Neurogenic bladder. 4. Incontinence. 5. Pyuria/UTI/colonized. 6. Hematuria. 7. Proteinuria. 8. Renal insufficiency, acute possibly on chronic. 9. Renal cyst. 10. Nephrolithiasis. 11. POD # 6, cysto/optic urethrotomy monitor clinically kendrick placed 09/17 hand irrigated and do PRN abx as ordered consider antifungals, per ID Subjective Allergies: Coded Allergies: AZTREONAM (Verified Allergy, Unknown, 05/13/18) Subjective all noted, kendrick draining, non-verbal Objective Last 24 Hour Vital Signs Date Time Temp Pulse Resp B/P (MAP) Pulse Ox O2 Delivery O2 Flow Rate FiO2 09/23/19 09:02 103 14 30 09/23/19 08:00 Mechanical Ventilator 09/23/19 08:00 98.2 103 20 134/87 (103) 98 09/23/19 08:00 30 09/23/19 07:58 100 09/23/19 07:02 61 18 30 09/23/19 05:29 102 16 30 09/23/19 04:00 30 09/23/19 04:00 98.2 134 21 129/85 (100) 100 09/23/19 04:00 Mechanical Ventilator 09/23/19 04:00 103 09/23/19 03:26 102 15 30 09/23/19 01:00 102 16 30 09/23/19 00:00 Mechanical Ventilator 09/23/19 00:00 30 09/23/19 00:00 107 09/23/19 00:00 98.2 105 16 133/85 (101) 100 09/22/19 23:27 107 17 30 09/22/19 20:46 102 18 30 09/22/19 20:00 30 09/22/19 20:00 Mechanical Ventilator 09/22/19 20:00 104 09/22/19 20:00 99.0 105 16 131/88 (102) 99 09/22/19 19:14 106 19 30 09/22/19 17:18 103 18 30 09/22/19 16:00 98.2 103 17 133/81 (98) 100 09/22/19 16:00 Mechanical Ventilator 09/22/19 16:00 30 09/22/19 15:39 140 09/22/19 15:14 100 16 30 09/22/19 13:23 108 20 30 09/22/19 12:00 98.4 98 17 117/73 (88) 100 09/22/19 12:00 Mechanical Ventilator 09/22/19 12:00 30 09/22/19 11:41 101 Intake and Output 09/22/19 09/23/19 18:59 06:59 Intake Total 1560 ml 1910 ml Output Total 1600 ml 2150 ml Balance -40 ml -240 ml Free Water 400 ml 400 ml IV Total 630 ml 1150 ml Tube Feeding 330 ml 360 ml Other 200 ml Output Urine Total 1400 ml 2000 ml Stool Total 200 ml 150 ml Microbiology Date/Time Source Procedure Growth Status 09/14/19 09:15 Blood Blood Culture - Final NO GROWTH AFTER 5 DAYS Complete 09/15/19 11:00 Nasal Nares - Final Complete 09/15/19 11:00 Nasal Nares - Final Complete 09/16/19 03:00 Urine,Clean Catch Urine Culture - Final Camelia Parapsilosis Complete 09/14/19 09:10 Rectum VRE Culture - Final Enterococcus Faecium - Vre Complete Current Medications Medications (Trade) Dose Ordered Sig/Va Route PRN Reason Start Time Stop Time Status Last Admin Dose Admin Acetaminophen (Tylenol) 650 mg Q4H PRN GT Mild Pain/Temp > 100.6 09/16/19 18:42 10/16/19 18:41 Albuterol/ Ipratropium (Albuterol/ Ipratropium) 3 ml Q4H PRN HHN Shortness of Breath 09/20/19 12:20 09/25/19 12:19 Artificial Tears (Akwa-Tears) 2 drop Q12HR BOTH EYES 09/16/19 21:00 10/14/19 20:59 09/23/19 09:28 Baclofen (Lioresal) 10 mg THREE TIMES A DAY GT 09/17/19 09:00 10/14/19 17:59 09/23/19 09:21 Calcitonin Harrison (Miacalcin) 1 sprays DAILY NASAL 09/18/19 12:00 10/18/19 11:59 09/23/19 09:29 Chlorhexidine Gluconate (Rebecca-Hex 2%) 1 applic DAILY@1999 TOPIC 09/22/19 20:00 10/22/19 19:59 09/22/19 21:07 Clobetasol Propionate (Temovate) 1 applic EVERY 12 HOURS TOPIC 09/16/19 21:00 10/14/19 20:59 09/23/19 09:28 Dextrose 1,000 ml @ 100 mls/hr Q10H IV 09/22/19 15:45 10/22/19 15:44 09/23/19 02:30 Dextrose (Dextrose 50%) 25 ml Q30M PRN IV Hypoglycemia 09/16/19 18:45 10/14/19 14:44 Dextrose (Dextrose 50%) 50 ml Q30M PRN IV Hypoglycemia 09/16/19 18:45 10/14/19 14:44 Ertapenem 1 gm/ Sodium Chloride 55 ml @ 110 mls/hr Q24H IVPB 09/19/19 13:00 09/24/19 12:59 09/22/19 12:41 Famotidine (Pepcid) 20 mg BID GT 09/18/19 18:00 10/18/19 17:59 09/23/19 09:22 Fenofibrate (Tricor) 145 mg DAILY ORAL 09/17/19 09:00 10/15/19 08:59 09/23/19 09:22 Heparin Sodium (Porcine) (Heparin 5000 units/ml) 5,000 units EVERY 12 HOURS SUBQ 09/16/19 21:00 10/14/19 20:59 09/23/19 09:28 Insulin Aspart (NovoLOG) EVERY 6 HOURS SUBQ 09/20/19 12:00 10/14/19 16:29 09/23/19 06:07 Levetiracetam (Keppra) 1,000 mg Q8H GT 09/19/19 02:00 10/19/19 01:59 09/23/19 09:21 Lorazepam (Ativan 2mg/ml 1ml) 2 mg Q2H PRN IV For Anxiety 09/16/19 18:43 09/23/19 18:42 Morphine Sulfate (Morphine Sulfate) 4 mg Q4H PRN IVP Severe Pain (Pain Scale 7-10) 09/16/19 18:44 09/23/19 18:43 Ondansetron HCl (Zofran) 4 mg Q6H PRN IVP Nausea & Vomiting 09/16/19 18:44 10/16/19 18:43 Polyethylene Glycol (Miralax) 17 gm DAILYPRN PRN GT Constipation 09/16/19 18:44 10/16/19 18:43 Potassium Chloride (K-Dur) 40 meq TWICE A DAY GT 09/22/19 18:00 10/22/19 17:59 09/23/19 09:21 Sitagliptin Phosphate (Januvia) 50 mg ACBREAKFAST GT 09/17/19 06:30 10/15/19 06:29 09/23/19 06:05 Tamsulosin HCl (Flomax) 0.4 mg DAILY ORAL 09/17/19 09:00 10/17/19 08:59 09/23/19 09:21 Laboratory Tests 09/23/19 09:45: Sodium Level 139, Potassium Level 4.2, Chloride Level 104, Carbon Dioxide Level 23, Anion Gap 12, Blood Urea Nitrogen 4L, Creatinine 0.9, Estimat Glomerular Filtration Rate > 60, Glucose Level 167H, Calcium Level 10.2H, Phosphorus Level 3.2, Magnesium Level 1.7L, Total Bilirubin 0.2, Aspartate Amino Transf (AST/SGOT ) 43H, Alanine Aminotransferase (ALT/SGPT) 32, Alkaline Phosphatase 88, Total Protein 7.3, Albumin 2.4L, Globulin 4.9, Albumin/Globulin Ratio 0.5L Height (Feet): 5 Height (Inches): 7.00 Weight (Pounds): 184 Objective exam stable kendrick indwelling, blood-tinged/hermelindo urine, some debris minimal bleeding at penile meatus Manohar Villarreal MD Sep 23, 2019 11:21
[2019-09-23 12:00] VITALS: BP 131/82
[2019-09-23] MEDS: Ertapenem 1 GM in NS 55 ML IVPB SCH (12:58)
--- NOTE | 2019-09-23 14:25 | Nephrology Progress Note ---
Assessment/Plan Problem List: (1) Urinary retention (2) Acute on chronic respiratory failure (3) Hypercalcemia (4) Renal failure (ARF), acute on chronic Assessment Hypercalcemia Urinary retention, BPH , Acute on chronic renal failure Electrolyte imbalance Colostomy DM PEG Vegetative state Acute on chronic respiratory failure Plan Free water- K and Phos and Mag supplements pulm support Aredia for high Ca on 09/18 redose today 09/23 Subjective ROS Limited/Unobtainable: Yes Constitutional: Reports: malaise Objective Objective Last 24 Hour Vital Signs Date Time Temp Pulse Resp B/P (MAP) Pulse Ox O2 Delivery O2 Flow Rate FiO2 09/23/19 12:44 88 15 30 09/23/19 11:05 80 15 30 09/23/19 09:02 103 14 30 09/23/19 08:00 Mechanical Ventilator 09/23/19 08:00 98.2 103 20 134/87 (103) 98 09/23/19 08:00 30 09/23/19 07:58 100 09/23/19 07:02 61 18 30 09/23/19 05:29 102 16 30 09/23/19 04:00 30 09/23/19 04:00 98.2 134 21 129/85 (100) 100 09/23/19 04:00 Mechanical Ventilator 09/23/19 04:00 103 09/23/19 03:26 102 15 30 09/23/19 01:00 102 16 30 09/23/19 00:00 Mechanical Ventilator 09/23/19 00:00 30 09/23/19 00:00 107 09/23/19 00:00 98.2 105 16 133/85 (101) 100 09/22/19 23:27 107 17 30 09/22/19 20:46 102 18 30 09/22/19 20:00 30 09/22/19 20:00 Mechanical Ventilator 09/22/19 20:00 104 09/22/19 20:00 99.0 105 16 131/88 (102) 99 09/22/19 19:14 106 19 30 09/22/19 17:18 103 18 30 09/22/19 16:00 98.2 103 17 133/81 (98) 100 09/22/19 16:00 Mechanical Ventilator 09/22/19 16:00 30 09/22/19 15:39 140 09/22/19 15:14 100 16 30 Intake and Output 09/22/19 09/23/19 18:59 06:59 Intake Total 1560 ml 1910 ml Output Total 1600 ml 2150 ml Balance -40 ml -240 ml Free Water 400 ml 400 ml IV Total 630 ml 1150 ml Tube Feeding 330 ml 360 ml Other 200 ml Output Urine Total 1400 ml 2000 ml Stool Total 200 ml 150 ml Laboratory Tests 09/23/19 09:45: Sodium Level 139, Potassium Level 4.2, Chloride Level 104, Carbon Dioxide Level 23, Anion Gap 12, Blood Urea Nitrogen 4L, Creatinine 0.9, Estimat Glomerular Filtration Rate > 60, Glucose Level 167H, Calcium Level 10.2H, Phosphorus Level 3.2, Magnesium Level 1.7L, Total Bilirubin 0.2, Aspartate Amino Transf (AST/SGOT ) 43H, Alanine Aminotransferase (ALT/SGPT) 32, Alkaline Phosphatase 88, Total Protein 7.3, Albumin 2.4L, Globulin 4.9, Albumin/Globulin Ratio 0.5L Height (Feet): 5 Height (Inches): 7.00 Weight (Pounds): 184 General Appearance: no apparent distress Neck: other - trach Respiratory/Chest: decreased breath sounds Abdomen: distended Cl Zaragoza MD Sep 23, 2019 14:25
[2019-09-23 16:00] VITALS: BP 134/86
[2019-09-23] MEDS ORDERED: Pamidronate Disodium Inj 60 MG in Sodium Chloride 550 ML IVPB ONE (16:00)
[2019-09-23 20:00] VITALS: BP 131/79
[2019-09-24] VITALS (7 sets, daily range): BP systolic 112–143; BP diastolic 70–98
[2019-09-24] MEDS: levETIRAcetam 500mg/5ml Liquid GT SCH ×3 (01:33→17:19)
[2019-09-24] MEDS: sitaGLIPtin 50mg tab GT SCH (05:43)
[2019-09-24] MEDS: NovoLOG Insulin Flexpen SUBQ SCH ×4 (05:46→23:14)
[2019-09-24 05:52] LABS: BASOPHILS % (AUTO) 1.4 % (0.0-2.0); EOSINOPHILS % (AUTO) 6.2 % (0.0-3.0); HEMATOCRIT 31.2 % (42.0-52.0); HEMOGLOBIN 10.1 G/DL (14.2-18.0); LYMPHOCYTES % (AUTO) 14.1 % (20.0-45.0); MEAN CORPUSCULAR VOLUME 91 FL (80-99); MONOCYTES % (AUTO) 3.6 % (1.0-10.0); NEUTROPHILS % (AUTO) 74.8 % (45.0-75.0); PLATELET COUNT 367 K/UL (150-450); RED BLOOD COUNT 3.42 M/UL (4.70-6.10); RED CELL DISTRIBUTION WIDTH 15.3 % (11.6-14.8); WHITE BLOOD COUNT 10.9 K/UL (4.8-10.8)
[2019-09-24 06:35] LABS: ALANINE AMINOTRANSFERASE 28 U/L (12-78); ALBUMIN 2.5 G/DL (3.4-5.0); ALBUMIN/GLOBULIN RATIO 0.5 (1.0-2.7); ALKALINE PHOSPHATASE 98 U/L (46-116); ANION GAP 9 mmol/L (5-15); ASPARTATE AMINO TRANSFERASE 41 U/L (15-37); BILIRUBIN,TOTAL 0.3 MG/DL (0.2-1.0); BLOOD UREA NITROGEN 6 mg/dL (7-18); CALCIUM 10.3 MG/DL (8.5-10.1); CARBON DIOXIDE 25 MMOL/L (21-32); CHLORIDE 104 MMOL/L (98-107); PHOSPHORUS 3.1 MG/DL (2.5-4.9); SODIUM 138 MMOL/L (136-145)
[2019-09-24] MEDS: Tamsulosin 0.4mg cap ORAL SCH (08:58)
[2019-09-24] MEDS: Heparin 5000 units/ml inj SUBQ SCH ×2 (09:01→20:24)
[2019-09-24] MEDS: Clobetasol Cream 0.05% 15gm TOPIC SCH ×2 (09:03→20:20)
--- NOTE | 2019-09-24 10:21 | Diagnostic Imaging Report ---
APPROVED REPORT CPT Code: 79505 Present Symptoms Upper Extremity Edema: Left RIGHT UPPER EXTREMITY: Imaging reveals patency of the internal jugular, subclavian, axillary and proximal brachial veins. Doppler indicates normal spontaneous flow within these venous segments. The mid to distal brachial veins were not imaged, due to bandages. The cephalic and basilic veins were not visualized. LEFT UPPER EXTREMITY: Venous imaging reveals patency of the internal jugular, subclavian, axillary and brachial veins. The cephalic and basilic veins are also patent. Doppler indicates normal spontaneous flow within these venous segments.
--- NOTE | 2019-09-24 10:26 | Diagnostic Imaging Report ---
APPROVED REPORT CPT Code: 84197 Present Symptoms Shortness of breath BILATERAL: Imaging reveals a patent deep venous system bilaterally. There is no evidence of thrombus within the common femoral, superficial femoral, popliteal or tibial segments. The greater saphenous veins are within normal limits. Doppler indicates normal spontaneous flow within these segments.
--- NOTE | 2019-09-24 11:06 | Nephrology Progress Note ---
Assessment/Plan Problem List: (1) Urinary retention (2) Acute on chronic respiratory failure (3) Hypercalcemia (4) Renal failure (ARF), acute on chronic Assessment Hypercalcemia Urinary retention, BPH , Acute on chronic renal failure Electrolyte imbalance Colostomy DM PEG Vegetative state Acute on chronic respiratory failure Plan Free water- K and Phos and Mag supplements pulm support Aredia for high Ca on 09/18 redose today 09/23 Subjective ROS Limited/Unobtainable: Yes Objective Objective Last 24 Hour Vital Signs Date Time Temp Pulse Resp B/P (MAP) Pulse Ox O2 Delivery O2 Flow Rate FiO2 09/24/19 11:02 139 19 30 09/24/19 09:18 117 16 30 09/24/19 08:00 98.2 115 14 125/77 (93) 98 09/24/19 08:00 30 09/24/19 08:00 Mechanical Ventilator 09/24/19 07:52 128 09/24/19 07:48 114 19 30 09/24/19 04:38 108 19 30 09/24/19 04:07 30 09/24/19 04:06 Mechanical Ventilator 09/24/19 04:00 109 09/24/19 04:00 98.1 110 16 129/85 (100) 100 09/24/19 03:20 112 17 30 09/24/19 01:05 111 15 30 09/24/19 00:00 30 09/24/19 00:00 98.5 113 16 131/82 (98) 100 09/24/19 00:00 Mechanical Ventilator 09/23/19 23:10 113 15 30 09/23/19 21:13 108 15 30 09/23/19 20:00 Mechanical Ventilator 09/23/19 20:00 98.2 114 16 131/79 (96) 100 09/23/19 20:00 113 09/23/19 20:00 30 09/23/19 18:52 113 16 30 09/23/19 16:59 90 15 30 09/23/19 16:00 30 09/23/19 16:00 98.6 98 19 134/86 (102) 99 09/23/19 16:00 Mechanical Ventilator 09/23/19 15:28 102 09/23/19 14:50 84 15 30 09/23/19 12:44 88 15 30 09/23/19 12:00 Mechanical Ventilator 09/23/19 12:00 98.3 100 17 131/82 (98) 98 09/23/19 12:00 30 09/23/19 11:41 114 Intake and Output 09/23/19 09/24/19 19:00 07:00 Intake Total 2545.827 ml 1460 ml Output Total 2975 ml 1625 ml Balance -429.173 ml -165 ml Free Water 100 ml IV Total 1475.827 ml 600 ml Tube Feeding 470 ml 760 ml Other 600 ml Output Urine Total 2850 ml 1400 ml Stool Total 125 ml 225 ml Laboratory Tests 09/24/19 04:55: White Blood Count 10.9H, Red Blood Count 3.42L, Hemoglobin 10.1L, Hematocrit 31.2L, Mean Corpuscular Volume 91, Mean Corpuscular Hemoglobin 29.5, Mean Corpuscular Hemoglobin Concent 32.4, Red Cell Distribution Width 15.3H, Platelet Count 367, Mean Platelet Volume 7.7, Neutrophils (%) (Auto) 74.8, Lymphocytes (%) (Auto) 14.1L, Monocytes (%) (Auto) 3.6, Eosinophils (%) (Auto) 6.2H, Basophils (%) (Auto) 1.4, Sodium Level 138, Potassium Level 5.0, Chloride Level 104, Carbon Dioxide Level 25, Anion Gap 9, Blood Urea Nitrogen 6L, Creatinine 1.0, Estimat Glomerular Filtration Rate > 60, Glucose Level 158H, Calcium Level 10.3H, Phosphorus Level 3.1, Magnesium Level 2.1, Total Bilirubin 0.3, Aspartate Amino Transf (AST/SGOT) 41H, Alanine Aminotransferase (ALT/SGPT) 28, Alkaline Phosphatase 98, C-Reactive Protein, Quantitative 6.0H, Pro-B-Type Natriuretic Peptide 206H, Total Protein 7.5, Albumin 2.5L, Globulin 5.0, Albumin /Globulin Ratio 0.5L Height (Feet): 5 Height (Inches): 7.00 Weight (Pounds): 201 General Appearance: no apparent distress Cardiovascular: normal rate Respiratory/Chest: decreased breath sounds Abdomen: soft Objective no change Cl Zaragoza MD Sep 24, 2019 11:06
--- NOTE | 2019-09-24 12:03 | Pulmonolgy Critical Care Note ---
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 (7) ATN (acute tubular necrosis) Respiratory: monitor respiratory rate, adjust FIO2, CXR Cardiac: continue to monitor HR/BP, other - ? etiology of tachycardia Renal: F/U I&O, keep IV fluid, check electrolytes Gastrointestinal: continue feedings/current rate Endocrine: continue sliding scale insulin Hematologic: monitor H/H, transfuse if hgb<8.5 Neurologic: PRN Ativan, keep patient comfortable Affect: PRN ativan Prophylaxis: Protonix, Heparin Time Spent (Minutes): 40 Notes Reviewed: biodiesel operations manager, cardio, renal Discussed with: nurses, consultants, nurse case managementfood stand manager - Objective Last 24 Hour Vital Signs Date Time Temp Pulse Resp B/P (MAP) Pulse Ox O2 Delivery O2 Flow Rate FiO2 09/24/19 12:00 Mechanical Ventilator 09/24/19 11:02 139 19 30 09/24/19 09:18 117 16 30 09/24/19 08:00 98.2 115 14 125/77 (93) 98 09/24/19 08:00 30 09/24/19 08:00 Mechanical Ventilator 09/24/19 07:52 128 09/24/19 07:48 114 19 30 09/24/19 04:38 108 19 30 09/24/19 04:07 30 09/24/19 04:06 Mechanical Ventilator 09/24/19 04:00 109 09/24/19 04:00 98.1 110 16 129/85 (100) 100 09/24/19 03:20 112 17 30 09/24/19 01:05 111 15 30 09/24/19 00:00 30 09/24/19 00:00 98.5 113 16 131/82 (98) 100 09/24/19 00:00 Mechanical Ventilator 09/23/19 23:10 113 15 30 09/23/19 21:13 108 15 30 09/23/19 20:00 Mechanical Ventilator 09/23/19 20:00 98.2 114 16 131/79 (96) 100 09/23/19 20:00 113 09/23/19 20:00 30 09/23/19 18:52 113 16 30 12/3/19 16:59 90 15 30 09/23/19 16:00 30 09/23/19 16:00 98.6 98 19 134/86 (102) 99 09/23/19 16:00 Mechanical Ventilator 09/23/19 15:28 102 09/23/19 14:50 84 15 30 09/23/19 12:44 88 15 30 Status: obtunded Condition: critical Lungs: clear, chest wall tender Abdomen: soft, non-tender Extremities: no C/C/E Accucheck: 144 Critical Care - Subjective ROS Limited/Unobtainable: Yes Condition: critical EKG Rhythm: Sinus Rhythm FI02: 30 Vent Support Breath Rate: 14 Vent Support Mode: AC Vent Tidal Volume: 600 Sputum Amount: Scant PEEP: 5.0 PIP: 32 Tube Feeding Amount: 65 I&O: Intake and Output 09/23/19 09/24/19 18:59 06:59 Intake Total 2248.327 ml 1822.5 ml Output Total 4600 ml Balance 2248.327 ml -2777.5 ml Free Water 100 ml IV Total 1438.327 ml 737.5 ml Tube Feeding 450 ml 745 ml Other 360 ml 240 ml Output Urine Total 4250 ml Stool Total 350 ml CXR: clear Labs: Laboratory Tests Test 09/24/19 04:55 White Blood Count 10.9 K/UL (4.8-10.8) H Red Blood Count 3.42 M/UL (4.70-6.10) L Hemoglobin 10.1 G/DL (14.2-18.0) L Hematocrit 31.2 % (42.0-52.0) L Mean Corpuscular Volume 91 FL (80-99) Mean Corpuscular Hemoglobin 29.5 PG (27.0-31.0) Mean Corpuscular Hemoglobin Concent 32.4 G/DL (32.0-36.0) Red Cell Distribution Width 15.3 % (11.6-14.8) H Platelet Count 367 K/UL (150-450) Mean Platelet Volume 7.7 FL (6.5-10.1) Neutrophils (%) (Auto) 74.8 % (45.0-75.0) Lymphocytes (%) (Auto) 14.1 % (20.0-45.0) L Monocytes (%) (Auto) 3.6 % (1.0-10.0) Eosinophils (%) (Auto) 6.2 % (0.0-3.0) H Basophils (%) (Auto) 1.4 % (0.0-2.0) Sodium Level 138 MMOL/L (136-145) Potassium Level 5.0 MMOL/L (3.5-5.1) Chloride Level 104 MMOL/L (98-107) Carbon Dioxide Level 25 MMOL/L (21-32) Anion Gap 9 mmol/L (5-15) Blood Urea Nitrogen 6 mg/dL (7-18) L Creatinine 1.0 MG/DL (0.55-1.30) Estimat Glomerular Filtration Rate > 60 mL/min (>60) Glucose Level 158 MG/DL (74-106) H Calcium Level 10.3 MG/DL (8.5-10.1) H Phosphorus Level 3.1 MG/DL (2.5-4.9) Magnesium Level 2.1 MG/DL (1.8-2.4) Total Bilirubin 0.3 MG/DL (0.2-1.0) Aspartate Amino Transf (AST/SGOT) 41 U/L (15-37) H Alanine Aminotransferase (ALT/SGPT) 28 U/L (12-78) Alkaline Phosphatase 98 U/L (46-116) C-Reactive Protein, Quantitative 6.0 mg/dL (0.00-0.90) H Pro-B-Type Natriuretic Peptide 206 pg/mL (0-125) H Total Protein 7.5 G/DL (6.4-8.2) Albumin 2.5 G/DL (3.4-5.0) L Globulin 5.0 g/dL Albumin/Globulin Ratio 0.5 (1.0-2.7) L Nico Goetz MD Sep 24, 2019 12:03
[2019-09-24] MEDS: Acetaminophen 650mg/20.3ml GT PRN ×2 (12:08→18:25)
--- NOTE | 2019-09-24 12:51 | Infectious Diseases Prog Note ---
Assessment/Plan Assessment/Plan Assessment: Severe Sepsis, SP- likely 2ry to UTI- Probable PNA -Bcx Neg -u/a wbc tnct, nit neg, leuk +3; ucx C. parasilopsis -sp cx ESBL P. mirabilis, MDR P. stuarti (S Cefepime, Zosyn, Ertapenem) -CXR: Geographic density overlying the right upper lung. This likely represents overlying soft tissue although cannot exclude an underlying consolidation/pneumonia. Pulmonary vascular congestion. Small left pleural effusion. Subsegmental atelectasis versus infiltrate in the left lung base. -Influenza A/B ag neg Fever, SP Leukocytosis, SP DIVYA, SP Mild AST elevation, SP -Abd uS: Hepatomegaly with fatty infiltration. Suspected nonobstructive stone left kidney. Left renal cyst Sacral decubitus hx of recurrent UTIs -UCx 11/17/18 P.a. (R Levo, otherwise S) - CT abd 11/19/18 3 mm distal right ureteral calculus, minimal resultant hydronephrosis. 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 Will continue to follow along with you. Discussed with RN Subjective Allergies: Coded Allergies: AZTREONAM (Verified Allergy, Unknown, 05/13/18) Subjective Tm 100 Objective Vital Signs Last 24 Hour Vital Signs Date Time Temp Pulse Resp B/P (MAP) Pulse Ox O2 Delivery O2 Flow Rate FiO2 09/24/19 12:00 100.0 134 15 115/70 (85) 100 09/24/19 12:00 30 09/24/19 12:00 Mechanical Ventilator 09/24/19 11:02 139 19 30 09/24/19 09:18 117 16 30 09/24/19 08:00 98.2 115 14 125/77 (93) 98 09/24/19 08:00 30 09/24/19 08:00 Mechanical Ventilator 09/24/19 07:52 128 09/24/19 07:48 114 19 30 09/24/19 04:38 108 19 30 09/24/19 04:07 30 09/24/19 04:06 Mechanical Ventilator 09/24/19 04:00 109 09/24/19 04:00 98.1 110 16 129/85 (100) 100 09/24/19 03:20 112 17 30 09/24/19 01:05 111 15 30 09/24/19 00:00 30 09/24/19 00:00 98.5 113 16 131/82 (98) 100 09/24/19 00:00 Mechanical Ventilator 09/23/19 23:10 113 15 30 09/23/19 21:13 108 15 30 09/23/19 20:00 Mechanical Ventilator 09/23/19 20:00 98.2 114 16 131/79 (96) 100 09/23/19 20:00 113 09/23/19 20:00 30 09/23/19 18:52 113 16 30 09/23/19 16:59 90 15 30 09/23/19 16:00 30 09/23/19 16:00 98.6 98 19 134/86 (102) 99 09/23/19 16:00 Mechanical Ventilator 09/23/19 15:28 102 09/23/19 14:50 84 15 30 Height (Feet): 5 Height (Inches): 7.00 Weight (Pounds): 201 Objective GENERAL: Noncommunicative. Tongue fasciculation. Moderate edema. LUNGS: Diminished breath sounds. CARDIAC: Regular rhythm. Rapid rate. Normal S1, S2. ABDOMEN: Soft with G-tube and colostomy bag. Laboratory Tests Test 09/24/19 04:55 White Blood Count 10.9 K/UL (4.8-10.8) H Red Blood Count 3.42 M/UL (4.70-6.10) L Hemoglobin 10.1 G/DL (14.2-18.0) L Hematocrit 31.2 % (42.0-52.0) L Mean Corpuscular Volume 91 FL (80-99) Mean Corpuscular Hemoglobin 29.5 PG (27.0-31.0) Mean Corpuscular Hemoglobin Concent 32.4 G/DL (32.0-36.0) Red Cell Distribution Width 15.3 % (11.6-14.8) H Platelet Count 367 K/UL (150-450) Mean Platelet Volume 7.7 FL (6.5-10.1) Neutrophils (%) (Auto) 74.8 % (45.0-75.0) Lymphocytes (%) (Auto) 14.1 % (20.0-45.0) L Monocytes (%) (Auto) 3.6 % (1.0-10.0) Eosinophils (%) (Auto) 6.2 % (0.0-3.0) H Basophils (%) (Auto) 1.4 % (0.0-2.0) Sodium Level 138 MMOL/L (136-145) Potassium Level 5.0 MMOL/L (3.5-5.1) Chloride Level 104 MMOL/L (98-107) Carbon Dioxide Level 25 MMOL/L (21-32) Anion Gap 9 mmol/L (5-15) Blood Urea Nitrogen 6 mg/dL (7-18) L Creatinine 1.0 MG/DL (0.55-1.30) Estimat Glomerular Filtration Rate > 60 mL/min (>60) Glucose Level 158 MG/DL (74-106) H Calcium Level 10.3 MG/DL (8.5-10.1) H Phosphorus Level 3.1 MG/DL (2.5-4.9) Magnesium Level 2.1 MG/DL (1.8-2.4) Total Bilirubin 0.3 MG/DL (0.2-1.0) Aspartate Amino Transf (AST/SGOT) 41 U/L (15-37) H Alanine Aminotransferase (ALT/SGPT) 28 U/L (12-78) Alkaline Phosphatase 98 U/L (46-116) C-Reactive Protein, Quantitative 6.0 mg/dL (0.00-0.90) H Pro-B-Type Natriuretic Peptide 206 pg/mL (0-125) H Total Protein 7.5 G/DL (6.4-8.2) Albumin 2.5 G/DL (3.4-5.0) L Globulin 5.0 g/dL Albumin/Globulin Ratio 0.5 (1.0-2.7) L Current Medications Medications (Trade) Dose Ordered Sig/Va Route PRN Reason Start Time Stop Time Status Last Admin Dose Admin Acetaminophen (Tylenol) 650 mg Q4H PRN GT Mild Pain/Temp > 100.6 09/16/19 18:42 10/16/19 18:41 09/24/19 12:08 Albuterol/ Ipratropium (Albuterol/ Ipratropium) 3 ml Q4H PRN HHN Shortness of Breath 09/20/19 12:20 09/25/19 12:19 Artificial Tears (Akwa-Tears) 2 drop Q12HR BOTH EYES 09/16/19 21:00 10/14/19 20:59 09/24/19 09:04 Baclofen (Lioresal) 10 mg THREE TIMES A DAY GT 09/17/19 09:00 10/14/19 17:59 09/24/19 08:58 Calcitonin [place] (Miacalcin) 1 sprays DAILY NASAL 09/18/19 12:00 10/18/19 11:59 09/24/19 09:03 Clobetasol Propionate (Temovate) 1 applic EVERY 12 HOURS TOPIC 09/16/19 21:00 10/14/19 20:59 09/24/19 09:03 Dextrose (Dextrose 50%) 25 ml Q30M PRN IV Hypoglycemia 09/16/19 18:45 10/14/19 14:44 Dextrose (Dextrose 50%) 50 ml Q30M PRN IV Hypoglycemia 09/16/19 18:45 10/14/19 14:44 Ertapenem 1 gm/ Sodium Chloride 55 ml @ 110 mls/hr Q24H IVPB 09/19/19 13:00 09/24/19 12:59 09/23/19 12:58 Famotidine (Pepcid) 20 mg BID GT 09/18/19 18:00 10/18/19 17:59 09/24/19 08:58 Fenofibrate (Tricor) 145 mg DAILY ORAL 09/17/19 09:00 10/15/19 08:59 09/24/19 09:12 Heparin Sodium (Porcine) (Heparin 5000 units/ml) 5,000 units EVERY 12 HOURS SUBQ 09/16/19 21:00 10/14/19 20:59 09/24/19 09:01 Insulin Aspart (NovoLOG) EVERY 6 HOURS SUBQ 09/20/19 12:00 10/14/19 16:29 09/24/19 12:37 Levetiracetam (Keppra) 1,000 mg Q8H GT 09/19/19 02:00 10/19/19 01:59 09/24/19 09:04 Ondansetron HCl (Zofran) 4 mg Q6H PRN IVP Nausea & Vomiting 09/16/19 18:44 10/16/19 18:43 Polyethylene Glycol (Miralax) 17 gm DAILYPRN PRN GT Constipation 09/16/19 18:44 10/16/19 18:43 Potassium Chloride (K-Dur) 40 meq TWICE A DAY GT 09/22/19 18:00 10/22/19 17:59 09/24/19 08:58 Sitagliptin Phosphate (Januvia) 50 mg ACBREAKFAST GT 09/17/19 06:30 10/15/19 06:29 09/24/19 05:43 Tamsulosin HCl (Flomax) 0.4 mg DAILY ORAL 09/17/19 09:00 10/17/19 08:59 09/24/19 08:58 Maribel Barrera M.D. Sep 24, 2019 12:51
--- NOTE | 2019-09-24 15:20 | Urology Progress Note ---
Assessment/Plan Status: stable Assessment/Plan: 1. Urinary retention. 2. BPH. 3. Neurogenic bladder. 4. Incontinence. 5. Pyuria/UTI/colonized. 6. Hematuria. 7. Proteinuria. 8. Renal insufficiency, acute possibly on chronic. 9. Renal cyst. 10. Nephrolithiasis. 11. POD # 6, cysto/optic urethrotomy monitor clinically kendrick placed 09/17 hand irrigated and do PRN abx as ordered consider antifungals, per ID Subjective Allergies: Coded Allergies: AZTREONAM (Verified Allergy, Unknown, 05/13/18) Subjective all noted, kendrick draining, non-verbal Objective Last 24 Hour Vital Signs Date Time Temp Pulse Resp B/P (MAP) Pulse Ox O2 Delivery O2 Flow Rate FiO2 09/24/19 15:08 131 19 30 09/24/19 13:03 113 20 30 09/24/19 12:00 100.0 134 15 115/70 (85) 100 09/24/19 12:00 30 09/24/19 12:00 Mechanical Ventilator 09/24/19 11:20 138 09/24/19 11:02 139 19 30 09/24/19 09:18 117 16 30 09/24/19 08:00 98.2 115 14 125/77 (93) 98 09/24/19 08:00 30 09/24/19 08:00 Mechanical Ventilator 09/24/19 07:52 128 09/24/19 07:48 114 19 30 09/24/19 04:38 108 19 30 09/24/19 04:07 30 09/24/19 04:06 Mechanical Ventilator 09/24/19 04:00 109 09/24/19 04:00 98.1 110 16 129/85 (100) 100 09/24/19 03:20 112 17 30 09/24/19 01:05 111 15 30 09/24/19 00:00 30 09/24/19 00:00 98.5 113 16 131/82 (98) 100 09/24/19 00:00 Mechanical Ventilator 09/23/19 23:10 113 15 30 09/23/19 21:13 108 15 30 09/23/19 20:00 Mechanical Ventilator 09/23/19 20:00 98.2 114 16 131/79 (96) 100 09/23/19 20:00 113 09/23/19 20:00 30 09/23/19 18:52 113 16 30 09/23/19 16:59 90 15 30 09/23/19 16:00 30 09/23/19 16:00 98.6 98 19 134/86 (102) 99 09/23/19 16:00 Mechanical Ventilator 09/23/19 15:28 102 Intake and Output 09/23/19 09/24/19 18:59 06:59 Intake Total 2248.327 ml 1822.5 ml Output Total 4600 ml Balance 2248.327 ml -2777.5 ml Free Water 100 ml IV Total 1438.327 ml 737.5 ml Tube Feeding 450 ml 745 ml Other 360 ml 240 ml Output Urine Total 4250 ml Stool Total 350 ml Microbiology Date/Time Source Procedure Growth Status 09/14/19 09:15 Blood Blood Culture - Final NO GROWTH AFTER 5 DAYS Complete 09/15/19 11:00 Nasal Nares - Final Complete 09/15/19 11:00 Nasal Nares - Final Complete 09/16/19 03:00 Urine,Clean Catch Urine Culture - Final Camelia Parapsilosis Complete 09/14/19 09:10 Rectum VRE Culture - Final Enterococcus Faecium - Vre Complete Current Medications Medications (Trade) Dose Ordered Sig/Va Route PRN Reason Start Time Stop Time Status Last Admin Dose Admin Acetaminophen (Tylenol) 650 mg Q4H PRN GT Mild Pain/Temp > 100.6 09/16/19 18:42 10/16/19 18:41 09/24/19 12:08 Albuterol/ Ipratropium (Albuterol/ Ipratropium) 3 ml Q4H PRN HHN Shortness of Breath 09/20/19 12:20 09/25/19 12:19 Artificial Tears (Akwa-Tears) 2 drop Q12HR BOTH EYES 09/16/19 21:00 10/14/19 20:59 09/24/19 09:04 Baclofen (Lioresal) 10 mg THREE TIMES A DAY GT 09/17/19 09:00 10/14/19 17:59 09/24/19 13:18 Calcitonin [place] (Miacalcin) 1 sprays DAILY NASAL 09/18/19 12:00 10/18/19 11:59 09/24/19 09:03 Clobetasol Propionate (Temovate) 1 applic EVERY 12 HOURS TOPIC 09/16/19 21:00 12/24/19 20:59 09/24/19 09:03 Dextrose (Dextrose 50%) 25 ml Q30M PRN IV Hypoglycemia 09/16/19 18:45 10/14/19 14:44 Dextrose (Dextrose 50%) 50 ml Q30M PRN IV Hypoglycemia 09/16/19 18:45 10/14/19 14:44 Famotidine (Pepcid) 20 mg BID GT 09/18/19 18:00 10/18/19 17:59 09/24/19 08:58 Fenofibrate (Tricor) 145 mg DAILY ORAL 09/17/19 09:00 10/15/19 08:59 09/24/19 09:12 Heparin Sodium (Porcine) (Heparin 5000 units/ml) 5,000 units EVERY 12 HOURS SUBQ 09/16/19 21:00 10/14/19 20:59 09/24/19 09:01 Insulin Aspart (NovoLOG) EVERY 6 HOURS SUBQ 09/20/19 12:00 10/14/19 16:29 09/24/19 12:37 Levetiracetam (Keppra) 1,000 mg Q8H GT 09/19/19 02:00 10/19/19 01:59 09/24/19 09:04 Ondansetron HCl (Zofran) 4 mg Q6H PRN IVP Nausea & Vomiting 09/16/19 18:44 10/16/19 18:43 Polyethylene Glycol (Miralax) 17 gm DAILYPRN PRN GT Constipation 09/16/19 18:44 10/16/19 18:43 Potassium Chloride (K-Dur) 40 meq TWICE A DAY GT 09/22/19 18:00 10/22/19 17:59 09/24/19 08:58 Sitagliptin Phosphate (Januvia) 50 mg ACBREAKFAST GT 09/17/19 06:30 10/15/19 06:29 09/24/19 05:43 Tamsulosin HCl (Flomax) 0.4 mg DAILY ORAL 09/17/19 09:00 10/17/19 08:59 09/24/19 08:58 Laboratory Tests 09/24/19 04:55: White Blood Count 10.9H, Red Blood Count 3.42L, Hemoglobin 10.1L, Hematocrit 31.2L, Mean Corpuscular Volume 91, Mean Corpuscular Hemoglobin 29.5, Mean Corpuscular Hemoglobin Concent 32.4, Red Cell Distribution Width 15.3H, Platelet Count 367, Mean Platelet Volume 7.7, Neutrophils (%) (Auto) 74.8, Lymphocytes (%) (Auto) 14.1L, Monocytes (%) (Auto) 3.6, Eosinophils (%) (Auto) 6.2H, Basophils (%) (Auto) 1.4, Sodium Level 138, Potassium Level 5.0, Chloride Level 104, Carbon Dioxide Level 25, Anion Gap 9, Blood Urea Nitrogen 6L, Creatinine 1.0, Estimat Glomerular Filtration Rate > 60, Glucose Level 158H, Calcium Level 10.3H, Phosphorus Level 3.1, Magnesium Level 2.1, Total Bilirubin 0.3, Aspartate Amino Transf (AST/SGOT) 41H, Alanine Aminotransferase (ALT/SGPT) 28, Alkaline Phosphatase 98, C-Reactive Protein, Quantitative 6.0H, Pro-B-Type Natriuretic Peptide 206H, Total Protein 7.5, Albumin 2.5L, Globulin 5.0, Albumin /Globulin Ratio 0.5L Height (Feet): 5 Height (Inches): 7.00 Weight (Pounds): 201 Objective exam stable kendrick indwelling, blood-tinged/hermelindo urine, some debris minimal bleeding at penile meatus Manohar Villarreal MD Sep 24, 2019 15:20
[2019-09-25] VITALS (7 sets, daily range): BP systolic 105–124; BP diastolic 67–85
[2019-09-25] MEDS: Acetaminophen 650mg/20.3ml GT PRN ×3 (00:03→20:13)
[2019-09-25] MEDS: levETIRAcetam 500mg/5ml Liquid GT SCH ×3 (01:10→18:07)
--- NOTE | 2019-09-25 03:15 | Progress Note ---
DATE: 09/24/2019 CARDIOLOGY PROGRESS NOTE AND CRITICAL CARE SUBJECTIVE: The patient is now tachycardic again. Sinus tachycardia up to 150. EKG revealed sinus tachycardia with nonspecific ST changes. The patient is also developing fevers up to 100.3. OBJECTIVE: VITAL SIGNS: Blood pressure 129/79, pulse 145, and respirations 16. GENERAL: Noncommunicative. HEENT: Trach site with thin secretions. LUNGS: Bilateral rhonchi. HEART: Regular rhythm. Rapid rate. Normal S1, S2. ABDOMEN: Colostomy and gastrostomy tube sites noted. EXTREMITIES: With dependent edema. LABORATORY DATA: September 15, 2019 venous duplex was negative for DVT of the lower extremities and September 19, 2019 venous duplex of the upper extremities was negative as well. Labs today notable for white count 10.9 and hemoglobin 10.1. Potassium 5, BUN 6, and creatinine 1. Natriuretic peptide 200. ABG, pH 7.43, pCO2 30, and pO2 111. IMPRESSION: 1. Secondary sinus tachycardia. 2. Probable new infection and sepsis. 3. Ventilator-dependent respiratory failure. PLAN: 1. IV fluids. 2. Discontinue beta agonist inhalation therapy. 3. Follow up laboratory studies. 4. DVT prophylaxis. 5. No role for antiarrhythmics at this time. Kali Melgar M.D. DR: LALI JOB#: [id number] CC:
[2019-09-25] MEDS: NovoLOG Insulin Flexpen SUBQ SCH ×4 (05:49→23:25)
[2019-09-25] MEDS: sitaGLIPtin 50mg tab GT SCH (05:51)
[2019-09-25 05:52] LABS: HEMATOCRIT 30.2 % (42.0-52.0); HEMOGLOBIN 9.5 G/DL (14.2-18.0); MEAN CORPUSCULAR VOLUME 91 FL (80-99); PLATELET COUNT 361 K/UL (150-450); RED BLOOD COUNT 3.33 M/UL (4.70-6.10); RED CELL DISTRIBUTION WIDTH 15.4 % (11.6-14.8)
[2019-09-25 06:02] LABS: WHITE BLOOD COUNT 33.9 K/UL (4.8-10.8)
[2019-09-25 06:30] LABS: ALANINE AMINOTRANSFERASE 34 U/L (12-78); ALBUMIN 2.3 G/DL (3.4-5.0); ALBUMIN/GLOBULIN RATIO 0.5 (1.0-2.7); ALKALINE PHOSPHATASE 126 U/L (46-116); ANION GAP 6 mmol/L (5-15); ASPARTATE AMINO TRANSFERASE 42 U/L (15-37); BILIRUBIN,TOTAL 0.5 MG/DL (0.2-1.0); BLOOD UREA NITROGEN 9 mg/dL (7-18); CALCIUM 9.8 MG/DL (8.5-10.1); CARBON DIOXIDE 25 MMOL/L (21-32); CHLORIDE 104 MMOL/L (98-107); CREATININE 1.3 MG/DL (0.55-1.30); SODIUM 135 MMOL/L (136-145)
--- NOTE | 2019-09-25 09:13 | Urology Progress Note ---
Assessment/Plan Status: stable Assessment/Plan: 1. Urinary retention. 2. BPH. 3. Neurogenic bladder. 4. Incontinence. 5. Pyuria/UTI/colonized. 6. Hematuria. 7. Proteinuria. 8. Renal insufficiency, acute possibly on chronic. 9. Renal cyst. 10. Nephrolithiasis. 11. POD # 7, cysto/optic urethrotomy. monitor clinically kendrick placed 09/17 hand irrigated and do PRN abx as ordered consider antifungals, per ID monitor WBC spike Subjective Allergies: Coded Allergies: AZTREONAM (Verified Allergy, Unknown, 05/13/18) Subjective all noted, kendrick draining, non-verbal Objective Last 24 Hour Vital Signs Date Time Temp Pulse Resp B/P (MAP) Pulse Ox O2 Delivery O2 Flow Rate FiO2 09/25/19 08:48 120 15 30 09/25/19 08:00 Mechanical Ventilator 09/25/19 08:00 98.0 118 16 105/71 (82) 100 09/25/19 08:00 126 09/25/19 08:00 30 09/25/19 06:53 121 16 30 09/25/19 04:54 128 16 30 09/25/19 04:00 Mechanical Ventilator 09/25/19 04:00 100.0 136 18 112/80 (91) 99 09/25/19 04:00 128 09/25/19 04:00 30 09/25/19 03:24 139 18 30 09/25/19 00:36 139 19 30 09/25/19 00:33 99.7 09/25/19 00:00 30 09/25/19 00:00 Mechanical Ventilator 09/25/19 00:00 146 09/25/19 00:00 100.3 156 18 124/72 (89) 99 09/24/19 22:58 152 18 30 09/24/19 20:43 154 21 30 09/24/19 20:00 100.0 160 17 112/78 (89) 99 09/24/19 20:00 167 09/24/19 20:00 30 09/24/19 20:00 Mechanical Ventilator 09/24/19 19:47 157 18 30 09/24/19 19:47 157 18 100 Mechanical Ventilator 30 09/24/19 18:43 99.0 145 16 129/79 (96) 100 09/24/19 17:14 107 18 30 09/24/19 16:00 Mechanical Ventilator 09/24/19 16:00 99.8 131 16 143/98 (113) 100 09/24/19 16:00 30 09/24/19 15:19 113 09/24/19 15:08 131 19 30 09/24/19 13:03 113 20 30 09/24/19 12:00 100.0 134 15 115/70 (85) 100 09/24/19 12:00 30 09/24/19 12:00 Mechanical Ventilator 09/24/19 11:20 138 09/24/19 11:02 139 19 30 09/24/19 09:18 117 16 30 Intake and Output 09/24/19 09/25/19 19:00 07:00 Intake Total 1280 ml 2741.6 ml Output Total 1400 ml 1000 ml Balance -120 ml 1741.6 ml Free Water 200 ml 130 ml IV Total 1616.6 ml Tube Feeding 780 ml 845 ml Other 300 ml 150 ml Output Urine Total 1200 ml 600 ml Stool Total 200 ml 400 ml Microbiology Date/Time Source Procedure Growth Status 09/14/19 09:15 Blood Blood Culture - Final NO GROWTH AFTER 5 DAYS Complete 09/15/19 11:00 Nasal Nares - Final Complete 09/15/19 11:00 Nasal Nares - Final Complete 09/16/19 03:00 Urine,Clean Catch Urine Culture - Final Camelia Parapsilosis Complete 09/14/19 09:10 Rectum VRE Culture - Final Enterococcus Faecium - Vre Complete Current Medications Medications (Trade) Dose Ordered Sig/Va Route PRN Reason Start Time Stop Time Status Last Admin Dose Admin Acetaminophen (Tylenol) 650 mg Q4H PRN GT Mild Pain/Temp > 100.6 09/16/19 18:42 10/16/19 18:41 09/25/19 05:51 Artificial Tears (Akwa-Tears) 2 drop Q12HR BOTH EYES 09/16/19 21:00 10/14/19 20:59 09/24/19 20:20 Baclofen (Lioresal) 10 mg THREE TIMES A DAY GT 09/17/19 09:00 10/14/19 17:59 09/24/19 17:19 Calcitonin [place] (Miacalcin) 1 sprays DAILY NASAL 09/18/19 12:00 10/18/19 11:59 09/24/19 09:03 Clobetasol Propionate (Temovate) 1 applic EVERY 12 HOURS TOPIC 09/16/19 21:00 10/14/19 20:59 09/24/19 20:20 Dextrose (Dextrose 50%) 25 ml Q30M PRN IV Hypoglycemia 09/16/19 18:45 10/14/19 14:44 Dextrose (Dextrose 50%) 50 ml Q30M PRN IV Hypoglycemia 09/16/19 18:45 10/14/19 14:44 Famotidine (Pepcid) 20 mg BID GT 09/18/19 18:00 10/18/19 17:59 09/24/19 17:19 Fenofibrate (Tricor) 145 mg DAILY ORAL 09/17/19 09:00 10/15/19 08:59 09/24/19 09:12 Heparin Sodium (Porcine) (Heparin 5000 units/ml) 5,000 units EVERY 12 HOURS SUBQ 09/16/19 21:00 10/14/19 20:59 09/24/19 20:24 Insulin Aspart (NovoLOG) EVERY 6 HOURS SUBQ 09/20/19 12:00 10/14/19 16:29 09/25/19 05:49 Levetiracetam (Keppra) 1,000 mg Q8H GT 09/19/19 02:00 10/19/19 01:59 09/25/19 01:10 Ondansetron HCl (Zofran) 4 mg Q6H PRN IVP Nausea & Vomiting 09/16/19 18:44 10/16/19 18:43 Polyethylene Glycol (Miralax) 17 gm DAILYPRN PRN GT Constipation 09/16/19 18:44 10/16/19 18:43 Sitagliptin Phosphate (Januvia) 50 mg ACBREAKFAST GT 09/17/19 06:30 10/15/19 06:29 09/25/19 05:51 Sodium Chloride 1,000 ml @ 125 mls/hr Q8H IV 09/25/19 01:45 10/25/19 01:44 09/25/19 03:32 Tamsulosin HCl (Flomax) 0.4 mg DAILY ORAL 09/17/19 09:00 10/17/19 08:59 09/24/19 08:58 Laboratory Tests 09/24/19 19:17: Arterial Blood pH 7.438, Arterial Blood Partial Pressure CO2 30.0L, Arterial Blood Partial Pressure O2 111.0H, Arterial Blood HCO3 19.8L, Arterial Blood Oxygen Saturation 97.6, Arterial Blood Base Excess -3.4L, K[place] Test Positive 09/25/19 05:25: White Blood Count 33.9#*H, Red Blood Count 3.33L, Hemoglobin 9.5L, Hematocrit 30.2L, Mean Corpuscular Volume 91, Mean Corpuscular Hemoglobin 28.6, Mean Corpuscular Hemoglobin Concent 31.5L, Red Cell Distribution Width 15.4H, Platelet Count 361, Mean Platelet Volume 8.0, Neutrophils (%) (Auto) , Lymphocytes (%) (Auto) , Monocytes (%) (Auto) , Eosinophils (%) (Auto) , Basophils (%) (Auto) , Differential Total Cells Counted 100, Neutrophils % ( Manual) 83H, Lymphocytes % (Manual) 4L, Monocytes % (Manual) 2, Eosinophils % ( Manual) 1, Basophils % (Manual) 0, Band Neutrophils 10H, Nucleated Red Blood Cells 1, Platelet Estimate Adequate, Platelet Morphology Normal, Hypochromasia 2 +, Anisocytosis 1+, Sodium Level 135L, Potassium Level 6.0*H, Chloride Level 104 , Carbon Dioxide Level 25, Anion Gap 6, Blood Urea Nitrogen 9, Creatinine 1.3, Estimat Glomerular Filtration Rate > 60, Glucose Level 222H, Calcium Level 9.8, Magnesium Level 1.6L, Total Bilirubin 0.5, Aspartate Amino Transf (AST/SGOT) 42H , Alanine Aminotransferase (ALT/SGPT) 34, Alkaline Phosphatase 126H, Total Protein 7.1, Albumin 2.3L, Globulin 4.8, Albumin/Globulin Ratio 0.5L Height (Feet): 5 Height (Inches): 7.00 Weight (Pounds): 203 Objective exam stable kendrick indwelling, blood-tinged/hermelindo urine, some debris minimal bleeding at penile meatus Manohar Villarreal MD Sep 25, 2019 09:13
[2019-09-25] MEDS: Tamsulosin 0.4mg cap ORAL SCH (10:05)
[2019-09-25] MEDS: Heparin 5000 units/ml inj SUBQ SCH ×2 (10:09→20:11)
[2019-09-25] MEDS: Clobetasol Cream 0.05% 15gm TOPIC SCH ×2 (10:14→20:09)
--- NOTE | 2019-09-25 12:01 | Pulmonolgy Critical Care Note ---
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, ID Discussed with: nurses, consultants, nurse case managementenvironmental compliance manager - Objective Last 24 Hour Vital Signs Date Time Temp Pulse Resp B/P (MAP) Pulse Ox O2 Delivery O2 Flow Rate FiO2 09/25/19 10:50 119 19 30 09/25/19 08:48 120 15 30 09/25/19 08:00 Mechanical Ventilator 09/25/19 08:00 98.0 118 16 105/71 (82) 100 09/25/19 08:00 126 09/25/19 08:00 30 09/25/19 06:53 121 16 30 09/25/19 04:54 128 16 30 09/25/19 04:00 Mechanical Ventilator 09/25/19 04:00 100.0 136 18 112/80 (91) 99 09/25/19 04:00 128 09/25/19 04:00 30 09/25/19 03:24 139 18 30 09/25/19 00:36 139 19 30 09/25/19 00:33 99.7 09/25/19 00:00 30 09/25/19 00:00 Mechanical Ventilator 09/25/19 00:00 146 09/25/19 00:00 100.3 156 18 124/72 (89) 99 09/24/19 22:58 152 18 30 09/24/19 20:43 154 21 30 09/24/19 20:00 100.0 160 17 112/78 (89) 99 09/24/19 20:00 167 09/24/19 20:00 30 09/24/19 20:00 Mechanical Ventilator 09/24/19 19:47 157 18 30 09/24/19 19:47 157 18 100 Mechanical Ventilator 30 09/24/19 18:43 99.0 145 16 129/79 (96) 100 09/24/19 17:14 107 18 30 12/4/19 16:00 Mechanical Ventilator 09/24/19 16:00 99.8 131 16 143/98 (113) 100 09/24/19 16:00 30 09/24/19 15:19 113 09/24/19 15:08 131 19 30 09/24/19 13:03 113 20 30 09/24/19 12:00 100.0 134 15 115/70 (85) 100 09/24/19 12:00 30 09/24/19 12:00 Mechanical Ventilator Status: other - open eyes, Condition: critical HEENT: atraumatic Neck: trach Lungs: rales, rhonchi Heart: HR/BP stable Abdomen: soft, non-tender Accucheck: 202 Critical Care - Subjective ROS Limited/Unobtainable: No Condition: critical EKG Rhythm: Sinus Rhythm FI02: 30 Vent Support Breath Rate: 14 Vent Support Mode: AC Vent Tidal Volume: 600 Sputum Amount: Small PEEP: 5.0 PIP: 38 Tube Feeding Amount: 65 I&O: Intake and Output 09/24/19 09/25/19 19:00 07:00 Intake Total 1280 ml 2866.6 ml Output Total 1400 ml 1000 ml Balance -120 ml 1866.6 ml Free Water 200 ml 130 ml IV Total 1741.6 ml Tube Feeding 780 ml 845 ml Other 300 ml 150 ml Output Urine Total 1200 ml 600 ml Stool Total 200 ml 400 ml CXR: CXR ordered for today b/o fever and new leukocytosis Labs: Laboratory Tests Test 09/24/19 19:17 09/25/19 05:25 Arterial Blood pH 7.438 (7.350-7.450) Arterial Blood Partial Pressure CO2 30.0 mmHg (35.0-45.0) L Arterial Blood Partial Pressure O2 111.0 mmHg (75.0-100.0) H Arterial Blood HCO3 19.8 mmol/L (22.0-26.0) L Arterial Blood Oxygen Saturation 97.6 % (95-100) Arterial Blood Base Excess -3.4 (-2-2) L Kameron Test Positive White Blood Count 33.9 K/UL (4.8-10.8) #*H Red Blood Count 3.33 M/UL (4.70-6.10) L Hemoglobin 9.5 G/DL (14.2-18.0) L Hematocrit 30.2 % (42.0-52.0) L Mean Corpuscular Volume 91 FL (80-99) Mean Corpuscular Hemoglobin 28.6 PG (27.0-31.0) Mean Corpuscular Hemoglobin Concent 31.5 G/DL (32.0-36.0) L Red Cell Distribution Width 15.4 % (11.6-14.8) H Platelet Count 361 K/UL (150-450) Mean Platelet Volume 8.0 FL (6.5-10.1) Neutrophils (%) (Auto) % (45.0-75.0) Lymphocytes (%) (Auto) % (20.0-45.0) Monocytes (%) (Auto) % (1.0-10.0) Eosinophils (%) (Auto) % (0.0-3.0) Basophils (%) (Auto) % (0.0-2.0) Differential Total Cells Counted 100 Neutrophils % (Manual) 83 % (45-75) H Lymphocytes % (Manual) 4 % (20-45) L Monocytes % (Manual) 2 % (1-10) Eosinophils % (Manual) 1 % (0-3) Basophils % (Manual) 0 % (0-2) Band Neutrophils 10 % (0-8) H Nucleated Red Blood Cells 1 /100 WBC Platelet Estimate Adequate Platelet Morphology Normal Hypochromasia 2+ Anisocytosis 1+ Sodium Level 135 MMOL/L (136-145) L Potassium Level 6.0 MMOL/L (3.5-5.1) *H Chloride Level 104 MMOL/L (98-107) Carbon Dioxide Level 25 MMOL/L (21-32) Anion Gap 6 mmol/L (5-15) Blood Urea Nitrogen 9 mg/dL (7-18) Creatinine 1.3 MG/DL (0.55-1.30) Estimat Glomerular Filtration Rate > 60 mL/min (>60) Glucose Level 222 MG/DL (74-106) H Calcium Level 9.8 MG/DL (8.5-10.1) Magnesium Level 1.6 MG/DL (1.8-2.4) L Total Bilirubin 0.5 MG/DL (0.2-1.0) Aspartate Amino Transf (AST/SGOT) 42 U/L (15-37) H Alanine Aminotransferase (ALT/SGPT) 34 U/L (12-78) Alkaline Phosphatase 126 U/L (46-116) H Total Protein 7.1 G/DL (6.4-8.2) Albumin 2.3 G/DL (3.4-5.0) L Globulin 4.8 g/dL Albumin/Globulin Ratio 0.5 (1.0-2.7) L Nico Goetz MD Sep 25, 2019 12:01
--- NOTE | 2019-09-25 12:39 | Infectious Diseases Prog Note ---
Assessment/Plan Assessment/Plan Assessment: Sepsis, recurrent- r/o bacteremia, recurrent UTI, PNA, Cdiff UTI, sp rx Probable PNA,sp Rx -Bcx Neg -u/a wbc tnct, nit neg, leuk +3; ucx C. parasilopsis -sp cx ESBL P. mirabilis, MDR P. stuarti (S Cefepime, Zosyn, Ertapenem) -CXR: Geographic density overlying the right upper lung. This likely represents overlying soft tissue although cannot exclude an underlying consolidation/pneumonia. Pulmonary vascular congestion. Small left pleural effusion. Subsegmental atelectasis versus infiltrate in the left lung base. -Influenza A/B ag neg Fever, SP Leukocytosis, SP DIVYA, SP Mild AST elevation, SP -Abd uS: Hepatomegaly with fatty infiltration. Suspected nonobstructive stone left kidney. Left renal cyst Sacral decubitus hx of recurrent UTIs -UCx 11/17/18 P.a. (R Levo, otherwise S) - CT abd 11/19/18 3 mm distal right ureteral calculus, minimal resultant hydronephrosis. Atrophic left kidney, containing a large staghorn calculus and multiple intrarenal calyceal calculi, previously described UCx 11/23/18 - Enterobacter (S Cefepime) and yeast and Pa HTN CKD ICH s/p craniotomy and [employer] shunt now w/ persistent vegetative state dysphagia s/p GT Chronic resp failure - vent/trach dependent ICH COPD DM Seizure disorder BPH Dysphagia, G tube Colostomy SNF resident Plan: -Start IV Vancomycin and Meropenem -09/23 SP ertapenem #4 - 09/19/10 S/P Meropenem - 09/17 SP IV Vancomycin #4 - 09/14 SP Cefepime x1 -f/u cx -Monitor CBC/CMP, temperatures -PEG/Trach/ICU care -aspiration precautions -wound care -CXR -u/a w/ reflex, Bcx x2, Cdiff Thank you for this consultation. Will continue to follow along with you. Discussed with RN Subjective Allergies: Coded Allergies: AZTREONAM (Verified Allergy, Unknown, 05/13/18) Subjective Tm 100.3 wbc up to 33 Objective Vital Signs Last 24 Hour Vital Signs Date Time Temp Pulse Resp B/P (MAP) Pulse Ox O2 Delivery O2 Flow Rate FiO2 09/25/19 12:00 30 09/25/19 12:00 Mechanical Ventilator 09/25/19 10:50 119 19 30 09/25/19 08:48 120 15 30 09/25/19 08:00 Mechanical Ventilator 09/25/19 08:00 98.0 118 16 105/71 (82) 100 09/25/19 08:00 126 09/25/19 08:00 30 09/25/19 06:53 121 16 30 09/25/19 04:54 128 16 30 09/25/19 04:00 Mechanical Ventilator 09/25/19 04:00 100.0 136 18 112/80 (91) 99 09/25/19 04:00 128 09/25/19 04:00 30 09/25/19 03:24 139 18 30 09/25/19 00:36 139 19 30 09/25/19 00:33 99.7 09/25/19 00:00 30 09/25/19 00:00 Mechanical Ventilator 09/25/19 00:00 146 09/25/19 00:00 100.3 156 18 124/72 (89) 99 09/24/19 22:58 152 18 30 09/24/19 20:43 154 21 30 09/24/19 20:00 100.0 160 17 112/78 (89) 99 09/24/19 20:00 167 09/24/19 20:00 30 09/24/19 20:00 Mechanical Ventilator 09/24/19 19:47 157 18 30 09/24/19 19:47 157 18 100 Mechanical Ventilator 30 09/24/19 18:43 99.0 145 16 129/79 (96) 100 09/24/19 17:14 107 18 30 09/24/19 16:00 Mechanical Ventilator 09/24/19 16:00 99.8 131 16 143/98 (113) 100 09/24/19 16:00 30 09/24/19 15:19 113 09/24/19 15:08 131 19 30 09/24/19 13:03 113 20 30 Height (Feet): 5 Height (Inches): 7.00 Weight (Pounds): 203 Objective GENERAL: Noncommunicative. Tongue fasciculation. Moderate edema. LUNGS: Diminished breath sounds. CARDIAC: Regular rhythm. Rapid rate. Normal S1, S2. ABDOMEN: Soft with G-tube and colostomy bag. Laboratory Tests Test 09/24/19 19:17 09/25/19 05:25 Arterial Blood pH 7.438 (7.350-7.450) Arterial Blood Partial Pressure CO2 30.0 mmHg (35.0-45.0) L Arterial Blood Partial Pressure O2 111.0 mmHg (75.0-100.0) H Arterial Blood HCO3 19.8 mmol/L (22.0-26.0) L Arterial Blood Oxygen Saturation 97.6 % (95-100) Arterial Blood Base Excess -3.4 (-2-2) L Kameron Test Positive White Blood Count 33.9 K/UL (4.8-10.8) #*H Red Blood Count 3.33 M/UL (4.70-6.10) L Hemoglobin 9.5 G/DL (14.2-18.0) L Hematocrit 30.2 % (42.0-52.0) L Mean Corpuscular Volume 91 FL (80-99) Mean Corpuscular Hemoglobin 28.6 PG (27.0-31.0) Mean Corpuscular Hemoglobin Concent 31.5 G/DL (32.0-36.0) L Red Cell Distribution Width 15.4 % (11.6-14.8) H Platelet Count 361 K/UL (150-450) Mean Platelet Volume 8.0 FL (6.5-10.1) Neutrophils (%) (Auto) % (45.0-75.0) Lymphocytes (%) (Auto) % (20.0-45.0) Monocytes (%) (Auto) % (1.0-10.0) Eosinophils (%) (Auto) % (0.0-3.0) Basophils (%) (Auto) % (0.0-2.0) Differential Total Cells Counted 100 Neutrophils % (Manual) 83 % (45-75) H Lymphocytes % (Manual) 4 % (20-45) L Monocytes % (Manual) 2 % (1-10) Eosinophils % (Manual) 1 % (0-3) Basophils % (Manual) 0 % (0-2) Band Neutrophils 10 % (0-8) H Nucleated Red Blood Cells 1 /100 WBC Platelet Estimate Adequate Platelet Morphology Normal Hypochromasia 2+ Anisocytosis 1+ Sodium Level 135 MMOL/L (136-145) L Potassium Level 6.0 MMOL/L (3.5-5.1) *H Chloride Level 104 MMOL/L (98-107) Carbon Dioxide Level 25 MMOL/L (21-32) Anion Gap 6 mmol/L (5-15) Blood Urea Nitrogen 9 mg/dL (7-18) Creatinine 1.3 MG/DL (0.55-1.30) Estimat Glomerular Filtration Rate > 60 mL/min (>60) Glucose Level 222 MG/DL (74-106) H Calcium Level 9.8 MG/DL (8.5-10.1) Magnesium Level 1.6 MG/DL (1.8-2.4) L Total Bilirubin 0.5 MG/DL (0.2-1.0) Aspartate Amino Transf (AST/SGOT) 42 U/L (15-37) H Alanine Aminotransferase (ALT/SGPT) 34 U/L (12-78) Alkaline Phosphatase 126 U/L (46-116) H Total Protein 7.1 G/DL (6.4-8.2) Albumin 2.3 G/DL (3.4-5.0) L Globulin 4.8 g/dL Albumin/Globulin Ratio 0.5 (1.0-2.7) L Current Medications Medications (Trade) Dose Ordered Sig/Va Route PRN Reason Start Time Stop Time Status Last Admin Dose Admin Acetaminophen (Tylenol) 650 mg Q4H PRN GT Mild Pain/Temp > 100.6 09/16/19 18:42 10/16/19 18:41 09/25/19 05:51 Artificial Tears (Akwa-Tears) 2 drop Q12HR BOTH EYES 09/16/19 21:00 10/14/19 20:59 09/25/19 10:14 Baclofen (Lioresal) 10 mg THREE TIMES A DAY GT 09/17/19 09:00 10/14/19 17:59 09/25/19 10:05 Calcitonin [place] (Miacalcin) 1 sprays DAILY NASAL 09/18/19 12:00 10/18/19 11:59 09/25/19 10:14 Clobetasol Propionate (Temovate) 1 applic EVERY 12 HOURS TOPIC 09/16/19 21:00 10/14/19 20:59 09/25/19 10:14 Dextrose (Dextrose 50%) 25 ml Q30M PRN IV Hypoglycemia 09/16/19 18:45 10/14/19 14:44 Dextrose (Dextrose 50%) 50 ml Q30M PRN IV Hypoglycemia 09/16/19 18:45 10/14/19 14:44 Famotidine (Pepcid) 20 mg BID GT 09/18/19 18:00 10/18/19 17:59 09/25/19 10:05 Fenofibrate (Tricor) 145 mg DAILY ORAL 09/17/19 09:00 10/15/19 08:59 09/25/19 10:05 Heparin Sodium (Porcine) (Heparin 5000 units/ml) 5,000 units EVERY 12 HOURS SUBQ 09/16/19 21:00 10/14/19 20:59 09/25/19 10:09 Insulin Aspart (NovoLOG) EVERY 6 HOURS SUBQ 09/20/19 12:00 10/14/19 16:29 09/25/19 05:49 Levetiracetam (Keppra) 1,000 mg Q8H GT 09/19/19 02:00 10/19/19 01:59 09/25/19 10:05 Ondansetron HCl (Zofran) 4 mg Q6H PRN IVP Nausea & Vomiting 09/16/19 18:44 10/16/19 18:43 Polyethylene Glycol (Miralax) 17 gm DAILYPRN PRN GT Constipation 09/16/19 18:44 10/16/19 18:43 Sitagliptin Phosphate (Januvia) 50 mg ACBREAKFAST GT 09/17/19 06:30 10/15/19 06:29 09/25/19 05:51 Sodium Chloride 1,000 ml @ 125 mls/hr Q8H IV 09/25/19 01:45 10/25/19 01:44 09/25/19 10:05 Tamsulosin HCl (Flomax) 0.4 mg DAILY ORAL 09/17/19 09:00 10/17/19 08:59 09/25/19 10:05 Maribel Barrera M.D. Sep 25, 2019 12:39
--- NOTE | 2019-09-25 12:46 | Cardiology Report ---
APPROVED REPORT EKG Measurement Heart [id number] ND [id number] Sinus tachycardia Nonspecific T wave abnormality Abnormal ECG
[2019-09-25] MEDS ORDERED: NS 275ml ONE (13:46)
--- NOTE | 2019-09-25 13:59 | Nephrology Progress Note ---
Assessment/Plan Problem List: (1) Urinary retention (2) Acute on chronic respiratory failure (3) Hypercalcemia (4) Renal failure (ARF), acute on chronic Assessment Hypercalcemia Urinary retention, BPH , Acute on chronic renal failure Electrolyte imbalance Colostomy DM PEG Vegetative state Acute on chronic respiratory failure Plan recheck K Free water- K and Phos and Mag supplements as needed pulm support Aredia for high Ca on 09/18 redose today 09/23 Subjective ROS Limited/Unobtainable: Yes Objective Objective Last 24 Hour Vital Signs Date Time Temp Pulse Resp B/P (MAP) Pulse Ox O2 Delivery O2 Flow Rate FiO2 09/25/19 12:39 127 19 30 09/25/19 12:00 30 09/25/19 12:00 Mechanical Ventilator 09/25/19 10:50 119 19 30 09/25/19 08:48 120 15 30 09/25/19 08:00 Mechanical Ventilator 09/25/19 08:00 98.0 118 16 105/71 (82) 100 09/25/19 08:00 126 09/25/19 08:00 30 09/25/19 06:53 121 16 30 09/25/19 04:54 128 16 30 09/25/19 04:00 Mechanical Ventilator 09/25/19 04:00 100.0 136 18 112/80 (91) 99 09/25/19 04:00 128 09/25/19 04:00 30 09/25/19 03:24 139 18 30 09/25/19 00:36 139 19 30 09/25/19 00:33 99.7 09/25/19 00:00 30 09/25/19 00:00 Mechanical Ventilator 09/25/19 00:00 146 09/25/19 00:00 100.3 156 18 124/72 (89) 99 09/24/19 22:58 152 18 30 09/24/19 20:43 154 21 30 09/24/19 20:00 100.0 160 17 112/78 (89) 99 09/24/19 20:00 167 09/24/19 20:00 30 09/24/19 20:00 Mechanical Ventilator 09/24/19 19:47 157 18 30 09/24/19 19:47 157 18 100 Mechanical Ventilator 30 09/24/19 18:43 99.0 145 16 129/79 (96) 100 09/24/19 17:14 107 18 30 09/24/19 16:00 Mechanical Ventilator 09/24/19 16:00 99.8 131 16 143/98 (113) 100 09/24/19 16:00 30 09/24/19 15:19 113 09/24/19 15:08 131 19 30 Intake and Output 09/24/19 09/25/19 19:00 07:00 Intake Total 1280 ml 2866.6 ml Output Total 1400 ml 1000 ml Balance -120 ml 1866.6 ml Free Water 200 ml 130 ml IV Total 1741.6 ml Tube Feeding 780 ml 845 ml Other 300 ml 150 ml Output Urine Total 1200 ml 600 ml Stool Total 200 ml 400 ml Laboratory Tests 09/24/19 19:17: Arterial Blood pH 7.438, Arterial Blood Partial Pressure CO2 30.0L, Arterial Blood Partial Pressure O2 111.0H, Arterial Blood HCO3 19.8L, Arterial Blood Oxygen Saturation 97.6, Arterial Blood Base Excess -3.4L, Kameron Test Positive 09/25/19 05:25: White Blood Count 33.9#*H, Red Blood Count 3.33L, Hemoglobin 9.5L, Hematocrit 30.2L, Mean Corpuscular Volume 91, Mean Corpuscular Hemoglobin 28.6, Mean Corpuscular Hemoglobin Concent 31.5L, Red Cell Distribution Width 15.4H, Platelet Count 361, Mean Platelet Volume 8.0, Neutrophils (%) (Auto) , Lymphocytes (%) (Auto) , Monocytes (%) (Auto) , Eosinophils (%) (Auto) , Basophils (%) (Auto) , Differential Total Cells Counted 100, Neutrophils % ( Manual) 83H, Lymphocytes % (Manual) 4L, Monocytes % (Manual) 2, Eosinophils % ( Manual) 1, Basophils % (Manual) 0, Band Neutrophils 10H, Nucleated Red Blood Cells 1, Platelet Estimate Adequate, Platelet Morphology Normal, Hypochromasia 2 +, Anisocytosis 1+, Sodium Level 135L, Potassium Level 6.0*H, Chloride Level 104 , Carbon Dioxide Level 25, Anion Gap 6, Blood Urea Nitrogen 9, Creatinine 1.3, Estimat Glomerular Filtration Rate > 60, Glucose Level 222H, Calcium Level 9.8, Magnesium Level 1.6L, Total Bilirubin 0.5, Aspartate Amino Transf (AST/SGOT) 42H , Alanine Aminotransferase (ALT/SGPT) 34, Alkaline Phosphatase 126H, Total Protein 7.1, Albumin 2.3L, Globulin 4.8, Albumin/Globulin Ratio 0.5L Height (Feet): 5 Height (Inches): 7.00 Weight (Pounds): 203 General Appearance: no apparent distress Neck: limited range of motion Cardiovascular: tachycardia Respiratory/Chest: decreased breath sounds Abdomen: soft, distended Objective no change Cl Zaragoza MD Sep 25, 2019 13:59
--- NOTE | 2019-09-25 14:11 | Diagnostic Imaging Report ---
Indication: Dyspnea Technique: One view of the chest Comparison: 09/22/2019 Findings: Left pleural effusion is unchanged. Left perihilar atelectasis is unchanged. Tracheostomy again demonstrated. Impression: Unchanged, over one day, findings as above.
[2019-09-25] MEDS: Meropenem 1 GM in NS 55 ML IVPB SCH ×2 (14:38→22:36)
[2019-09-25 15:12] LABS: ANION GAP 11 mmol/L (5-15); BLOOD UREA NITROGEN 9 mg/dL (7-18); CALCIUM 10.3 MG/DL (8.5-10.1); CARBON DIOXIDE 24 MMOL/L (21-32); CHLORIDE 105 MMOL/L (98-107); CREATININE 1.1 MG/DL (0.55-1.30); POTASSIUM 4.8 MMOL/L (3.5-5.1); SODIUM 140 MMOL/L (136-145)
[2019-09-25] MEDS: Vancomycin 1.5gm/NS Premix q24h IVPB SCH (15:30)
[2019-09-25 23:34] LABS: APPEARANCE,URINE CLEAR; BILIRUBIN, URINE NEGATIVE (NEGATIVE); COLOR,URINE PALE YELLOW; GLUCOSE, URINE (UA) 2+ (NEGATIVE); KETONES,URINE NEGATIVE (NEGATIVE); LEUKOCYTE ESTERASE ,URINE 2+ (NEGATIVE); NITRITE,URINE NEGATIVE (NEGATIVE); PH,URINE 6 (4.5-8.0); PROTEIN,URINE 3+ (NEGATIVE); UROBILINOGEN,URINE NORMAL MG/DL (0.0-1.0)
[2019-09-26] VITALS: BP 111/59
[2019-09-26] MEDS: levETIRAcetam 500mg/5ml Liquid GT SCH ×3 (02:23→17:31)
[2019-09-26 04:00] VITALS: BP 104/60
--- NOTE | 2019-09-26 04:45 | Progress Note ---
DATE: 09/25/2019 CARDIOLOGY PROGRESS NOTE SUBJECTIVE: The patient continues to have sinus tachycardia. Heart rates above 130 most of the times, slightly improved from yesterday. The patient was given fluid challenges. In addition, today he was noted to have a white blood count over 30,000. Further chest x-ray reveals left pleural effusion and atelectasis. PHYSICAL EXAMINATION: HEENT: Trach site with thin secretions. LUNGS: Bilateral breath sounds with rhonchi. HEART: Regular rhythm. Rapid rate. Normal S1 and S2. ABDOMEN: Soft. EXTREMITIES: No edema. LABORATORY DATA: White count 34 and hemoglobin 9.5. Potassium 4.8, BUN 9, creatinine 1.1, and magnesium 1.7. IMPRESSION: 1. Sepsis. 2. Secondary sinus tachycardia. 3. Hypomagnesemia. 4. Ventilator-dependent respiratory failure. 5. Cerebrovascular disease with chronic encephalopathy. PLAN: 1. IV fluid hydrations. 2. Nutritional support by feeding tube. 3. Antimicrobials per infectious disease media consultant outside sales. 4. No role for antiarrhythmics. 5. Ventilator support. 6. Off beta-agonist. Kali Melgar M.D. DR: JASON JOB#: [id number] CC:
[2019-09-26] MEDS: sitaGLIPtin 50mg tab GT SCH (05:33)
[2019-09-26] MEDS: Meropenem 1 GM in NS 55 ML IVPB SCH ×3 (05:33→21:35)
[2019-09-26] MEDS: Acetaminophen 650mg/20.3ml GT PRN (05:34)
[2019-09-26] MEDS: NovoLOG Insulin Flexpen SUBQ SCH ×3 (05:36→17:37)
[2019-09-26 06:22] LABS: HEMATOCRIT 26.9 % (42.0-52.0); HEMOGLOBIN 8.8 G/DL (14.2-18.0); MEAN CORPUSCULAR VOLUME 91 FL (80-99); PLATELET COUNT 279 K/UL (150-450); RED BLOOD COUNT 2.95 M/UL (4.70-6.10); RED CELL DISTRIBUTION WIDTH 15.4 % (11.6-14.8); WHITE BLOOD COUNT 19.2 K/UL (4.8-10.8)
[2019-09-26 06:42] LABS: ALANINE AMINOTRANSFERASE 25 U/L (12-78); ALBUMIN/GLOBULIN RATIO 0.4 (1.0-2.7); ALKALINE PHOSPHATASE 147 U/L (46-116); ANION GAP 9 mmol/L (5-15); ASPARTATE AMINO TRANSFERASE 27 U/L (15-37); BILIRUBIN,TOTAL 0.4 MG/DL (0.2-1.0); BLOOD UREA NITROGEN 14 mg/dL (7-18); CALCIUM 9.9 MG/DL (8.5-10.1); CARBON DIOXIDE 23 MMOL/L (21-32); CHLORIDE 106 MMOL/L (98-107); PHOSPHORUS 3.4 MG/DL (2.5-4.9); SODIUM 138 MMOL/L (136-145)
[2019-09-26] MEDS ORDERED: Heparin1,000 units/500ml Premix(Conc:2 units/ml) ONE (07:00)
[2019-09-26] MEDS ORDERED: Lidocaine 1% Plain 30 ml INJ ONE (07:00)
--- NOTE | 2019-09-26 07:48 | Urology Progress Note ---
Assessment/Plan Status: stable Assessment/Plan: 1. Urinary retention. 2. BPH. 3. Neurogenic bladder. 4. Incontinence. 5. Pyuria/UTI/colonized. 6. Hematuria. 7. Proteinuria. 8. Renal insufficiency, acute possibly on chronic. 9. Renal cyst. 10. Nephrolithiasis. 11. POD # 9, cysto/optic urethrotomy. monitor clinically kendrick placed 09/17 hand irrigated and do PRN abx as ordered, pr ID consider antifungals, per ID monitor WBC spike Subjective Allergies: Coded Allergies: AZTREONAM (Verified Allergy, Unknown, 05/13/18) Subjective all noted, kendrick draining, non-verbal Objective Last 24 Hour Vital Signs Date Time Temp Pulse Resp B/P (MAP) Pulse Ox O2 Delivery O2 Flow Rate FiO2 09/26/19 07:06 125 16 30 09/26/19 06:04 99.7 09/26/19 05:18 131 16 30 09/26/19 04:00 30 09/26/19 04:00 99.7 133 18 104/60 (75) 97 09/26/19 04:00 132 09/26/19 04:00 Mechanical Ventilator 09/26/19 02:52 131 17 30 09/26/19 00:56 133 20 30 09/26/19 00:00 99.1 135 18 111/59 (76) 100 09/26/19 00:00 Mechanical Ventilator 09/26/19 00:00 127 09/25/19 23:18 130 14 30 09/25/19 21:42 134 16 30 09/25/19 21:00 100.0 138 107/70 (82) 09/25/19 20:00 30 09/25/19 20:00 Mechanical Ventilator 09/25/19 20:00 102.0 139 18 109/67 (81) 100 09/25/19 19:22 141 09/25/19 19:04 109 17 30 09/25/19 16:57 138 19 30 09/25/19 16:05 30 09/25/19 16:00 99.1 128 18 109/67 (81) 100 09/25/19 16:00 Mechanical Ventilator 09/25/19 16:00 142 09/25/19 14:46 142 22 30 09/25/19 12:39 127 19 30 09/25/19 12:00 30 09/25/19 12:00 99.2 128 18 118/85 (96) 100 09/25/19 12:00 Mechanical Ventilator 09/25/19 12:00 131 09/25/19 10:50 119 19 30 09/25/19 08:48 120 15 30 09/25/19 08:00 Mechanical Ventilator 09/25/19 08:00 98.0 118 16 105/71 (82) 100 09/25/19 08:00 126 09/25/19 08:00 30 Intake and Output 09/25/19 09/26/19 19:00 07:00 Intake Total 2453.75 ml 2450 ml Output Total 1850 ml 1100 ml Balance 603.75 ml 1350 ml Free Water 300 ml 250 ml IV Total 1373.75 ml 1485 ml Tube Feeding 780 ml 715 ml Output Urine Total 1400 ml 700 ml Stool Total 450 ml 400 ml Microbiology Date/Time Source Procedure Growth Status 09/14/19 09:15 Blood Blood Culture - Final NO GROWTH AFTER 5 DAYS Complete 09/15/19 11:00 Nasal Nares - Final Complete 09/15/19 11:00 Nasal Nares - Final Complete 09/16/19 03:00 Urine,Clean Catch Urine Culture - Final Camelia Parapsilosis Complete 09/14/19 09:10 Rectum VRE Culture - Final Enterococcus Faecium - Vre Complete Current Medications Medications (Trade) Dose Ordered Sig/Va Route PRN Reason Start Time Stop Time Status Last Admin Dose Admin Acetaminophen (Tylenol) 650 mg Q4H PRN GT Mild Pain/Temp > 100.6 09/16/19 18:42 10/16/19 18:41 09/26/19 05:34 Artificial Tears (Akwa-Tears) 2 drop Q12HR BOTH EYES 09/16/19 21:00 10/14/19 20:59 09/25/19 20:09 Baclofen (Lioresal) 10 mg THREE TIMES A DAY GT 09/17/19 09:00 10/14/19 17:59 09/25/19 18:07 Calcitonin [place] (Miacalcin) 1 sprays DAILY NASAL 09/18/19 12:00 10/18/19 11:59 09/25/19 10:14 Clobetasol Propionate (Temovate) 1 applic EVERY 12 HOURS TOPIC 09/16/19 21:00 10/14/19 20:59 09/25/19 20:09 Dextrose (Dextrose 50%) 25 ml Q30M PRN IV Hypoglycemia 09/16/19 18:45 10/14/19 14:44 Dextrose (Dextrose 50%) 50 ml Q30M PRN IV Hypoglycemia 09/16/19 18:45 10/14/19 14:44 Famotidine (Pepcid) 20 mg BID GT 09/18/19 18:00 10/18/19 17:59 09/25/19 18:07 Fenofibrate (Tricor) 145 mg DAILY ORAL 09/17/19 09:00 10/15/19 08:59 09/25/19 10:05 Heparin Sodium (Porcine) (Heparin 5000 units/ml) 5,000 units EVERY 12 HOURS SUBQ 09/16/19 21:00 10/14/19 20:59 09/25/19 20:11 Insulin Aspart (NovoLOG) EVERY 6 HOURS SUBQ 09/20/19 12:00 10/14/19 16:29 09/26/19 05:36 Levetiracetam (Keppra) 1,000 mg Q8H GT 09/19/19 02:00 10/19/19 01:59 09/26/19 02:23 Meropenem 1 gm/ Sodium Chloride 55 ml @ 110 mls/hr Q8HR IVPB 09/25/19 14:00 09/30/19 13:59 09/26/19 05:33 Ondansetron HCl (Zofran) 4 mg Q6H PRN IVP Nausea & Vomiting 09/16/19 18:44 10/16/19 18:43 Polyethylene Glycol (Miralax) 17 gm DAILYPRN PRN GT Constipation 09/16/19 18:44 10/16/19 18:43 Sitagliptin Phosphate (Januvia) 50 mg ACBREAKFAST GT 09/17/19 06:30 10/15/19 06:29 09/26/19 05:33 Sodium Chloride 1,000 ml @ 125 mls/hr Q8H IV 09/25/19 01:45 10/25/19 01:44 09/26/19 06:55 Tamsulosin HCl (Flomax) 0.4 mg DAILY ORAL 09/17/19 09:00 10/17/19 08:59 09/25/19 10:05 Vancomycin HCl (Vanco rx to dose) 1 ea DAILY PRN MISC Per rx protocol 09/25/19 12:45 10/25/19 12:44 Vancomycin/Sodium Chloride 275 ml @ 137.5 mls/ hr Q24H IVPB 09/25/19 15:00 09/30/19 14:59 09/25/19 15:30 Laboratory Tests 09/25/19 14:20: Sodium Level 140, Potassium Level 4.8, Chloride Level 105, Carbon Dioxide Level 24, Anion Gap 11, Blood Urea Nitrogen 9, Creatinine 1.1, Estimat Glomerular Filtration Rate > 60, Glucose Level 221H, Calcium Level 10.3H, Magnesium Level 1.7L 09/25/19 19:00: Urine Color Pale yellow, Urine Appearance Clear, Urine pH 6, Urine Specific [place] 1.015, Urine Protein 3+H, Urine Glucose (UA) 2+H, Urine Ketones Negative , Urine Blood 3+H, Urine Nitrite Negative, Urine Bilirubin Negative, Urine Urobilinogen Normal, Urine Leukocyte Esterase 2+H, Urine RBC 10-15H, Urine WBC 15-20H, Urine Squamous Epithelial Cells Few, Urine Bacteria ModerateH, Urine Mucus FewH, Urine Yeast ModerateH 09/26/19 05:30: Sodium Level 138, Potassium Level 4.0, Chloride Level 106, Carbon Dioxide Level 23, Anion Gap 9, Blood Urea Nitrogen 14, Creatinine 1.0, Estimat Glomerular Filtration Rate > 60, Glucose Level 299H, Calcium Level 9.9, Magnesium Level 2.1 , White Blood Count 19.2H, Red Blood Count 2.95L, Hemoglobin 8.8L, Hematocrit 26.9L, Mean Corpuscular Volume 91, Mean Corpuscular Hemoglobin 29.9, Mean Corpuscular Hemoglobin Concent 32.8, Red Cell Distribution Width 15.4H, Platelet Count 279, Mean Platelet Volume 8.0, Neutrophils (%) (Auto) , Lymphocytes (%) (Auto) , Monocytes (%) (Auto) , Eosinophils (%) (Auto) , Basophils (%) (Auto) , Neutrophils % (Manual) [Pending], Lymphocytes % (Manual) [Pending], Platelet Estimate [Pending], Platelet Morphology [Pending], Prothrombin Time [Pending], Prothromb Time International Ratio [Pending], Activated Partial Thromboplast Time [Pending], Phosphorus Level 3.4, Total Bilirubin 0.4, Aspartate Amino Transf (AST/SGOT) 27, Alanine Aminotransferase ( ALT/SGPT) 25, Alkaline Phosphatase 147H, Total Protein 6.6, Albumin 2.0L, Globulin 4.6, Albumin/Globulin Ratio 0.4L Height (Feet): 5 Height (Inches): 7.00 Weight (Pounds): 203 Objective exam stable kendrick indwelling, yellow/hermelindo urine, some debris minimal bleeding at penile meatus Manohar Villarreal MD Sep 26, 2019 07:48
[2019-09-26 08:00] VITALS: BP 127/74
[2019-09-26 08:16] LABS: INR 1.1 (0.9-1.1)
[2019-09-26] MEDS: Tamsulosin 0.4mg cap ORAL SCH (08:17)
[2019-09-26] MEDS: Heparin 5000 units/ml inj SUBQ SCH ×2 (08:21→20:54)
[2019-09-26] MEDS: Clobetasol Cream 0.05% 15gm TOPIC SCH ×2 (08:21→20:53)
--- NOTE | 2019-09-26 08:25 | Nephrology Progress Note ---
Assessment/Plan Problem List: (1) Renal failure (ARF), acute on chronic (2) Urinary retention (3) Acute on chronic respiratory failure (4) Hypercalcemia Assessment Hypercalcemia Urinary retention, BPH , Acute on chronic renal failure Electrolyte imbalance Colostomy DM PEG Vegetative state Acute on chronic respiratory failure Plan recheck K Free water- K and Phos and Mag supplements as needed pulm support Aredia for high Ca on 09/18 redose today 09/23 Subjective ROS Limited/Unobtainable: Yes Objective Objective Last 24 Hour Vital Signs Date Time Temp Pulse Resp B/P (MAP) Pulse Ox O2 Delivery O2 Flow Rate FiO2 09/26/19 08:00 Mechanical Ventilator 09/26/19 08:00 30 09/26/19 07:27 124 09/26/19 07:06 125 16 30 09/26/19 06:04 99.7 09/26/19 05:18 131 16 30 09/26/19 04:00 30 09/26/19 04:00 99.7 133 18 104/60 (75) 97 09/26/19 04:00 132 09/26/19 04:00 Mechanical Ventilator 09/26/19 02:52 131 17 30 09/26/19 00:56 133 20 30 09/26/19 00:00 99.1 135 18 111/59 (76) 100 09/26/19 00:00 Mechanical Ventilator 09/26/19 00:00 127 09/25/19 23:18 130 14 30 09/25/19 21:42 134 16 30 09/25/19 21:00 100.0 138 107/70 (82) 09/25/19 20:00 30 09/25/19 20:00 Mechanical Ventilator 09/25/19 20:00 102.0 139 18 109/67 (81) 100 09/25/19 19:22 141 09/25/19 19:04 109 17 30 09/25/19 16:57 138 19 30 09/25/19 16:05 30 09/25/19 16:00 99.1 128 18 109/67 (81) 100 09/25/19 16:00 Mechanical Ventilator 09/25/19 16:00 142 09/25/19 14:46 142 22 30 09/25/19 12:39 127 19 30 09/25/19 12:00 30 09/25/19 12:00 99.2 128 18 118/85 (96) 100 09/25/19 12:00 Mechanical Ventilator 09/25/19 12:00 131 09/25/19 10:50 119 19 30 09/25/19 08:48 120 15 30 Intake and Output 09/25/19 09/26/19 19:00 07:00 Intake Total 2453.75 ml 2450 ml Output Total 1850 ml 1100 ml Balance 603.75 ml 1350 ml Free Water 300 ml 250 ml IV Total 1373.75 ml 1485 ml Tube Feeding 780 ml 715 ml Output Urine Total 1400 ml 700 ml Stool Total 450 ml 400 ml Laboratory Tests 09/25/19 14:20: Sodium Level 140, Potassium Level 4.8, Chloride Level 105, Carbon Dioxide Level 24, Anion Gap 11, Blood Urea Nitrogen 9, Creatinine 1.1, Estimat Glomerular Filtration Rate > 60, Glucose Level 221H, Calcium Level 10.3H, Magnesium Level 1.7L 09/25/19 19:00: Urine Color Pale yellow, Urine Appearance Clear, Urine pH 6, Urine Specific [place] 1.015, Urine Protein 3+H, Urine Glucose (UA) 2+H, Urine Ketones Negative , Urine Blood 3+H, Urine Nitrite Negative, Urine Bilirubin Negative, Urine Urobilinogen Normal, Urine Leukocyte Esterase 2+H, Urine RBC 10-15H, Urine WBC 15-20H, Urine Squamous Epithelial Cells Few, Urine Bacteria ModerateH, Urine Mucus FewH, Urine Yeast ModerateH 09/26/19 05:30: Sodium Level 138, Potassium Level 4.0, Chloride Level 106, Carbon Dioxide Level 23, Anion Gap 9, Blood Urea Nitrogen 14, Creatinine 1.0, Estimat Glomerular Filtration Rate > 60, Glucose Level 299H, Calcium Level 9.9, Magnesium Level 2.1 , White Blood Count 19.2H, Red Blood Count 2.95L, Hemoglobin 8.8L, Hematocrit 26.9L, Mean Corpuscular Volume 91, Mean Corpuscular Hemoglobin 29.9, Mean Corpuscular Hemoglobin Concent 32.8, Red Cell Distribution Width 15.4H, Platelet Count 279, Mean Platelet Volume 8.0, Neutrophils (%) (Auto) , Lymphocytes (%) (Auto) , Monocytes (%) (Auto) , Eosinophils (%) (Auto) , Basophils (%) (Auto) , Neutrophils % (Manual) [Pending], Lymphocytes % (Manual) [Pending], Platelet Estimate [Pending], Platelet Morphology [Pending], Prothrombin Time 12.0H, Prothromb Time International Ratio 1.1, Activated Partial Thromboplast Time 33, Phosphorus Level 3.4, Total Bilirubin 0.4, Aspartate Amino Transf (AST/SGOT) 27, Alanine Aminotransferase (ALT/SGPT) 25, Alkaline Phosphatase 147H, Total Protein 6.6, Albumin 2.0L, Globulin 4.6, Albumin/Globulin Ratio 0.4L Height (Feet): 5 Height (Inches): 7.00 Weight (Pounds): 203 General Appearance: no apparent distress EENT: other - vented Cardiovascular: tachycardia Respiratory/Chest: decreased breath sounds Abdomen: distended Objective no change Cl Zaragoza MD Sep 26, 2019 08:25
[2019-09-26] MEDS ORDERED: Heparin1,000 units/500ml Premix(Conc:2 units/ml) IV SCH (10:00)
[2019-09-26] MEDS ORDERED: Lidocaine 1% Plain 30 ml INJ SCH (10:00)
--- NOTE | 2019-09-26 10:35 | Pulmonolgy Critical Care Note ---
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 (7) ATN (acute tubular necrosis) Respiratory: monitor respiratory rate, adjust FIO2, CXR Cardiac: continue pressors, continue to monitor HR/BP Renal: F/U I&O, keep IV fluid Infectious Disease: check cultures, other - wbc decreasing Gastrointestinal: continue feedings/current rate Endocrine: monitor blood sugar Hematologic: monitor H/H Neurologic: PRN Ativan Affect: PRN ativan Prophylaxis: Protonix, Heparin Time Spent (Minutes): 40 Notes Reviewed: real estate services administrator, ID Discussed with: nurses, consultants, case plannercounselor manager - Objective Last 24 Hour Vital Signs Date Time Temp Pulse Resp B/P (MAP) Pulse Ox O2 Delivery O2 Flow Rate FiO2 09/26/19 09:00 120 17 30 09/26/19 08:00 98.7 131 17 127/74 (91) 100 09/26/19 08:00 Mechanical Ventilator 09/26/19 08:00 30 09/26/19 07:27 124 09/26/19 07:06 125 16 30 09/26/19 06:04 99.7 09/26/19 05:18 131 16 30 09/26/19 04:00 30 09/26/19 04:00 99.7 133 18 104/60 (75) 97 09/26/19 04:00 132 09/26/19 04:00 Mechanical Ventilator 09/26/19 02:52 131 17 30 09/26/19 00:56 133 20 30 09/26/19 00:00 99.1 135 18 111/59 (76) 100 09/26/19 00:00 Mechanical Ventilator 09/26/19 00:00 127 09/25/19 23:18 130 14 30 09/25/19 21:42 134 16 30 09/25/19 21:00 100.0 138 107/70 (82) 09/25/19 20:00 30 09/25/19 20:00 Mechanical Ventilator 09/25/19 20:00 102.0 139 18 109/67 (81) 100 09/25/19 19:22 141 09/25/19 19:04 109 17 30 09/25/19 16:57 138 19 30 09/25/19 16:05 30 09/25/19 16:00 99.1 128 18 109/67 (81) 100 09/25/19 16:00 Mechanical Ventilator 09/25/19 16:00 142 09/25/19 14:46 142 22 30 09/25/19 12:39 127 19 30 09/25/19 12:00 30 09/25/19 12:00 99.2 128 18 118/85 (96) 100 09/25/19 12:00 Mechanical Ventilator 09/25/19 12:00 131 09/25/19 10:50 119 19 30 Status: awake Condition: critical HEENT: atraumatic Neck: full ROM Lungs: rales, rhonchi Heart: HR/BP stable Abdomen: soft, non-tender Extremities: no C/C/E Accucheck: 245 Critical Care - Subjective ROS Limited/Unobtainable: Yes Interval Events: open eyes, vegetative state Condition: critical FI02: 30 Vent Support Breath Rate: 14 Vent Support Mode: AC Vent Tidal Volume: 600 Sputum Amount: Small PEEP: 5.0 PIP: 29 Tube Feeding Amount: 65 I&O: Intake and Output 09/25/19 09/26/19 19:00 07:00 Intake Total 2453.75 ml 2450 ml Output Total 1850 ml 1100 ml Balance 603.75 ml 1350 ml Free Water 300 ml 250 ml IV Total 1373.75 ml 1485 ml Tube Feeding 780 ml 715 ml Output Urine Total 1400 ml 700 ml Stool Total 450 ml 400 ml CXR: clear, trach in correct position Labs: Laboratory Tests Test 09/25/19 14:20 09/25/19 19:00 09/26/19 05:30 Sodium Level 140 MMOL/L (136-145) 138 MMOL/L (136-145) Potassium Level 4.8 MMOL/L (3.5-5.1) 4.0 MMOL/L (3.5-5.1) Chloride Level 105 MMOL/L (98-107) 106 MMOL/L (98-107) Carbon Dioxide Level 24 MMOL/L (21-32) 23 MMOL/L (21-32) Anion Gap 11 mmol/L (5-15) 9 mmol/L (5-15) Blood Urea Nitrogen 9 mg/dL (7-18) 14 mg/dL (7-18) Creatinine 1.1 MG/DL (0.55-1.30) 1.0 MG/DL (0.55-1.30) Estimat Glomerular Filtration Rate > 60 mL/min (>60) > 60 mL/min (>60) Glucose Level 221 MG/DL (74-106) H 299 MG/DL (74-106) H Calcium Level 10.3 MG/DL (8.5-10.1) H 9.9 MG/DL (8.5-10.1) Magnesium Level 1.7 MG/DL (1.8-2.4) L 2.1 MG/DL (1.8-2.4) Urine Color Pale yellow Urine Appearance Clear Urine pH 6 (4.5-8.0) Urine Specific [place] 1.015 (1.005-1.035) Urine Protein 3+ (NEGATIVE) H Urine Glucose (UA) 2+ (NEGATIVE) H Urine Ketones Negative (NEGATIVE) Urine Blood 3+ (NEGATIVE) H Urine Nitrite Negative (NEGATIVE) Urine Bilirubin Negative (NEGATIVE) Urine Urobilinogen Normal MG/DL (0.0-1.0) Urine Leukocyte Esterase 2+ (NEGATIVE) H Urine RBC 10-15 /HPF (0 - 0) H Urine WBC 15-20 /HPF (0 - 0) H Urine Squamous Epithelial Cells Few /LPF (NONE/OCC) Urine Bacteria Moderate /HPF (NONE) H Urine Mucus Few /LPF (NONE/OCC) H Urine Yeast Moderate /HPF (NONE) H White Blood Count 19.2 K/UL (4.8-10.8) H Red Blood Count 2.95 M/UL (4.70-6.10) L Hemoglobin 8.8 G/DL (14.2-18.0) L Hematocrit 26.9 % (42.0-52.0) L Mean Corpuscular Volume 91 FL (80-99) Mean Corpuscular Hemoglobin 29.9 PG (27.0-31.0) Mean Corpuscular Hemoglobin Concent 32.8 G/DL (32.0-36.0) Red Cell Distribution Width 15.4 % (11.6-14.8) H Platelet Count 279 K/UL (150-450) Mean Platelet Volume 8.0 FL (6.5-10.1) Neutrophils (%) (Auto) % (45.0-75.0) Lymphocytes (%) (Auto) % (20.0-45.0) Monocytes (%) (Auto) % (1.0-10.0) Eosinophils (%) (Auto) % (0.0-3.0) Basophils (%) (Auto) % (0.0-2.0) Neutrophils % (Manual) Pending Lymphocytes % (Manual) Pending Platelet Estimate Pending Platelet Morphology Pending Prothrombin Time 12.0 SEC (9.30-11.50) H Prothromb Time International Ratio 1.1 (0.9-1.1) Activated Partial Thromboplast Time 33 SEC (23-33) Phosphorus Level 3.4 MG/DL (2.5-4.9) Total Bilirubin 0.4 MG/DL (0.2-1.0) Aspartate Amino Transf (AST/SGOT) 27 U/L (15-37) Alanine Aminotransferase (ALT/SGPT) 25 U/L (12-78) Alkaline Phosphatase 147 U/L (46-116) H Total Protein 6.6 G/DL (6.4-8.2) Albumin 2.0 G/DL (3.4-5.0) L Globulin 4.6 g/dL Albumin/Globulin Ratio 0.4 (1.0-2.7) L Nico Goetz MD Sep 26, 2019 10:35
[2019-09-26 12:00] VITALS: BP 108/61
--- NOTE | 2019-09-26 12:52 | Infectious Diseases Prog Note ---
Assessment/Plan Assessment/Plan Assessment: Sepsis, recurrent- r/o bacteremia, recurrent UTI, PNA -09/25 Cdiff eng CXR: Left pleural effusion is unchanged. Left perihilar atelectasis is unchanged. Tracheostomy again demonstrated. Bcx p u/a wbc 15-20, nit neg, leuk +2; ucx p Fever, recurrent Leukocytosis, recurrent; improving UTI, sp rx Probable PNA,sp Rx -Bcx Neg -u/a wbc tnct, nit neg, leuk +3; ucx C. parasilopsis -sp cx ESBL P. mirabilis, MDR P. stuarti (S Cefepime, Zosyn, Ertapenem) -CXR: Geographic density overlying the right upper lung. This likely represents overlying soft tissue although cannot exclude an underlying consolidation/pneumonia. Pulmonary vascular congestion. Small left pleural effusion. Subsegmental atelectasis versus infiltrate in the left lung base. -Influenza A/B ag neg DIVYA, SP Mild AST elevation, SP -Abd uS: Hepatomegaly with fatty infiltration. Suspected nonobstructive stone left kidney. Left renal cyst Sacral decubitus hx of recurrent UTIs -UCx 11/17/18 P.a. (R Levo, otherwise S) - CT abd 11/19/18 3 mm distal right ureteral calculus, minimal resultant hydronephrosis. 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 Will continue to follow along with you. Discussed with RN Subjective Allergies: Coded Allergies: AZTREONAM (Verified Allergy, Unknown, 05/13/18) Subjective Tm 102 wbc improving bcx p Objective Vital Signs Last 24 Hour Vital Signs Date Time Temp Pulse Resp B/P (MAP) Pulse Ox O2 Delivery O2 Flow Rate FiO2 09/26/19 12:00 Mechanical Ventilator 09/26/19 12:00 30 09/26/19 10:30 113 14 30 09/26/19 09:00 120 17 30 09/26/19 08:00 98.7 131 17 127/74 (91) 100 09/26/19 08:00 Mechanical Ventilator 09/26/19 08:00 30 09/26/19 07:27 124 09/26/19 07:06 125 16 30 09/26/19 06:04 99.7 09/26/19 05:18 131 16 30 09/26/19 04:00 30 09/26/19 04:00 99.7 133 18 104/60 (75) 97 09/26/19 04:00 132 09/26/19 04:00 Mechanical Ventilator 09/26/19 02:52 131 17 30 09/26/19 00:56 133 20 30 09/26/19 00:00 99.1 135 18 111/59 (76) 100 09/26/19 00:00 Mechanical Ventilator 09/26/19 00:00 127 09/25/19 23:18 130 14 30 09/25/19 21:42 134 16 30 09/25/19 21:00 100.0 138 107/70 (82) 09/25/19 20:00 30 09/25/19 20:00 Mechanical Ventilator 09/25/19 20:00 102.0 139 18 109/67 (81) 100 09/25/19 19:22 141 09/25/19 19:04 109 17 30 09/25/19 16:57 138 19 30 09/25/19 16:05 30 09/25/19 16:00 99.1 128 18 109/67 (81) 100 09/25/19 16:00 Mechanical Ventilator 09/25/19 16:00 142 09/25/19 14:46 142 22 30 Height (Feet): 5 Height (Inches): 7.00 Weight (Pounds): 203 Objective GENERAL: Noncommunicative. Tongue fasciculation. Moderate edema. LUNGS: Diminished breath sounds. CARDIAC: Regular rhythm. Rapid rate. Normal S1, S2. ABDOMEN: Soft with G-tube and colostomy bag. Microbiology Date/Time Source Procedure Growth Status 09/25/19 19:00 Stool Clostridium difficile Toxin Assay - Final Complete Laboratory Tests Test 09/25/19 14:20 09/25/19 19:00 09/26/19 05:30 Sodium Level 140 MMOL/L (136-145) 138 MMOL/L (136-145) Potassium Level 4.8 MMOL/L (3.5-5.1) 4.0 MMOL/L (3.5-5.1) Chloride Level 105 MMOL/L (98-107) 106 MMOL/L (98-107) Carbon Dioxide Level 24 MMOL/L (21-32) 23 MMOL/L (21-32) Anion Gap 11 mmol/L (5-15) 9 mmol/L (5-15) Blood Urea Nitrogen 9 mg/dL (7-18) 14 mg/dL (7-18) Creatinine 1.1 MG/DL (0.55-1.30) 1.0 MG/DL (0.55-1.30) Estimat Glomerular Filtration Rate > 60 mL/min (>60) > 60 mL/min (>60) Glucose Level 221 MG/DL (74-106) H 299 MG/DL (74-106) H Calcium Level 10.3 MG/DL (8.5-10.1) H 9.9 MG/DL (8.5-10.1) Magnesium Level 1.7 MG/DL (1.8-2.4) L 2.1 MG/DL (1.8-2.4) Urine Color Pale yellow Urine Appearance Clear Urine pH 6 (4.5-8.0) Urine Specific [place] 1.015 (1.005-1.035) Urine Protein 3+ (NEGATIVE) H Urine Glucose (UA) 2+ (NEGATIVE) H Urine Ketones Negative (NEGATIVE) Urine Blood 3+ (NEGATIVE) H Urine Nitrite Negative (NEGATIVE) Urine Bilirubin Negative (NEGATIVE) Urine Urobilinogen Normal MG/DL (0.0-1.0) Urine Leukocyte Esterase 2+ (NEGATIVE) H Urine RBC 10-15 /HPF (0 - 0) H Urine WBC 15-20 /HPF (0 - 0) H Urine Squamous Epithelial Cells Few /LPF (NONE/OCC) Urine Bacteria Moderate /HPF (NONE) H Urine Mucus Few /LPF (NONE/OCC) H Urine Yeast Moderate /HPF (NONE) H White Blood Count 19.2 K/UL (4.8-10.8) H Red Blood Count 2.95 M/UL (4.70-6.10) L Hemoglobin 8.8 G/DL (14.2-18.0) L Hematocrit 26.9 % (42.0-52.0) L Mean Corpuscular Volume 91 FL (80-99) Mean Corpuscular Hemoglobin 29.9 PG (27.0-31.0) Mean Corpuscular Hemoglobin Concent 32.8 G/DL (32.0-36.0) Red Cell Distribution Width 15.4 % (11.6-14.8) H Platelet Count 279 K/UL (150-450) Mean Platelet Volume 8.0 FL (6.5-10.1) Neutrophils (%) (Auto) % (45.0-75.0) Lymphocytes (%) (Auto) % (20.0-45.0) Monocytes (%) (Auto) % (1.0-10.0) Eosinophils (%) (Auto) % (0.0-3.0) Basophils (%) (Auto) % (0.0-2.0) Differential Total Cells Counted 100 Neutrophils % (Manual) 91 % (45-75) H Lymphocytes % (Manual) 5 % (20-45) L Monocytes % (Manual) 4 % (1-10) Eosinophils % (Manual) 0 % (0-3) Basophils % (Manual) 0 % (0-2) Band Neutrophils 0 % (0-8) Platelet Estimate Adequate Platelet Morphology Normal Hypochromasia 2+ Anisocytosis 1+ Prothrombin Time 12.0 SEC (9.30-11.50) H Prothromb Time International Ratio 1.1 (0.9-1.1) Activated Partial Thromboplast Time 33 SEC (23-33) Phosphorus Level 3.4 MG/DL (2.5-4.9) Total Bilirubin 0.4 MG/DL (0.2-1.0) Aspartate Amino Transf (AST/SGOT) 27 U/L (15-37) Alanine Aminotransferase (ALT/SGPT) 25 U/L (12-78) Alkaline Phosphatase 147 U/L (46-116) H Total Protein 6.6 G/DL (6.4-8.2) Albumin 2.0 G/DL (3.4-5.0) L Globulin 4.6 g/dL Albumin/Globulin Ratio 0.4 (1.0-2.7) L Current Medications Medications (Trade) Dose Ordered Sig/Va Route PRN Reason Start Time Stop Time Status Last Admin Dose Admin Acetaminophen (Tylenol) 650 mg Q4H PRN GT Mild Pain/Temp > 100.6 09/16/19 18:42 10/16/19 18:41 09/26/19 05:34 Artificial Tears (Akwa-Tears) 2 drop Q12HR BOTH EYES 09/16/19 21:00 10/14/19 20:59 09/26/19 08:21 Baclofen (Lioresal) 10 mg THREE TIMES A DAY GT 09/17/19 09:00 10/14/19 17:59 09/26/19 08:17 Calcitonin [place] (Miacalcin) 1 sprays DAILY NASAL 09/18/19 12:00 10/18/19 11:59 09/26/19 08:20 Chlorhexidine Gluconate (Rebecca-Hex 2%) 1 applic DAILY@1999 TOPIC 09/26/19 20:00 10/26/19 19:59 Clobetasol Propionate (Temovate) 1 applic EVERY 12 HOURS TOPIC 09/16/19 21:00 10/14/19 20:59 09/26/19 08:21 Dextrose (Dextrose 50%) 25 ml Q30M PRN IV Hypoglycemia 09/16/19 18:45 10/14/19 14:44 Dextrose (Dextrose 50%) 50 ml Q30M PRN IV Hypoglycemia 09/16/19 18:45 10/14/19 14:44 Famotidine (Pepcid) 20 mg BID GT 09/18/19 18:00 10/18/19 17:59 09/26/19 08:17 Fenofibrate (Tricor) 145 mg DAILY ORAL 09/17/19 09:00 10/15/19 08:59 09/26/19 08:17 Heparin Sodium (Porcine) (Heparin 5000 units/ml) 5,000 units EVERY 12 HOURS SUBQ 09/16/19 21:00 10/14/19 20:59 09/26/19 08:21 Heparin Sodium/ Sodium Chloride (Heparin 1000 units/500ml Premix) 1,000 unit ONCE IV 09/26/19 10:00 09/26/19 18:00 Insulin Aspart (NovoLOG) EVERY 6 HOURS SUBQ 09/20/19 12:00 10/14/19 16:29 09/26/19 12:10 Levetiracetam (Keppra) 1,000 mg Q8H GT 09/19/19 02:00 10/19/19 01:59 09/26/19 10:17 Lidocaine HCl (Xylocaine 1% 30ml) 30 ml ONCE INJ 09/26/19 10:00 09/26/19 18:00 Meropenem 1 gm/ Sodium Chloride 55 ml @ 110 mls/hr Q8HR IVPB 09/25/19 14:00 09/30/19 13:59 09/26/19 05:33 Ondansetron HCl (Zofran) 4 mg Q6H PRN IVP Nausea & Vomiting 09/16/19 18:44 10/16/19 18:43 Polyethylene Glycol (Miralax) 17 gm DAILYPRN PRN GT Constipation 09/16/19 18:44 10/16/19 18:43 Sitagliptin Phosphate (Januvia) 50 mg ACBREAKFAST GT 09/17/19 06:30 10/15/19 06:29 09/26/19 05:33 Sodium Chloride 1,000 ml @ 125 mls/hr Q8H IV 09/25/19 01:45 10/25/19 01:44 09/26/19 06:55 Tamsulosin HCl (Flomax) 0.4 mg DAILY ORAL 09/17/19 09:00 10/17/19 08:59 09/26/19 08:17 Vancomycin HCl (Vanco rx to dose) 1 ea DAILY PRN MISC Per rx protocol 09/25/19 12:45 10/25/19 12:44 Vancomycin/Sodium Chloride 275 ml @ 137.5 mls/ hr Q24H IVPB 09/25/19 15:00 09/30/19 14:59 09/25/19 15:30 Maribel Barrera M.D. Sep 26, 2019 12:52
[2019-09-26] MEDS: Vancomycin 1.5gm/NS Premix q24h IVPB SCH (15:10)
--- NOTE | 2019-09-26 15:25 | Diagnostic Imaging Report ---
Indications: Needs long-term IV access Technique: Procedure performed at bedside. Procedural timeout performed. Ultrasound confirms patent compressible left brachial vein. Total sterile technique, including sterile probe cover and sterile gel, sterile gloves, hand hygiene, hat, mask,, sterile gown, large sterile drape, and preparation with 2% chlorhexidine utilized. Local anesthesia with 1% lidocaine. Under real-time ultrasound guidance, puncture brachial vein using 21-gauge needle, passage 0.018 guidewire, exchange for 4 Scottish peel-away sheath. 4 [place] Bard dual-lumen power PICC cut to 41 cm. It was inserted through the peel-away sheath. Peel-away sheath and guidewire removed. Catheter fixed to the skin. Both catheter ports aspirated and flushed. Patient tolerated procedure well, without immediate complication. Followup chest x-ray obtained, documents catheter tip position at the high right atrium Impression: Successful bedside placement of left arm PICC under sonographic guidance, as described above.
[2019-09-26 16:00] VITALS: BP 129/71
[2019-09-26 20:00] VITALS: BP 124/89
[2019-09-26] MEDS: Dyna-Hex 2% Top Sol 2oz TOPIC SCH (20:20)
[2019-09-26] MEDS ORDERED: Tubing IV Secondary IV ONE (21:12)
[2019-09-26] MEDS ORDERED: NS 275ml ONE (21:12)
[2019-09-26] MEDS ORDERED: NS 500ML ONE (21:12)
[2019-09-27] VITALS: BP 122/70
--- NOTE | 2019-09-27 | Progress Note ---
DATE: 09/26/2019 CARDIOLOGY PROGRESS NOTE SUBJECTIVE: The patient's white count yesterday was 33,000. Preceding that, he developed rapid sinus tachycardia and some fevers. Today, his heart rate has slightly improved. White count has decreased to 19,000. PHYSICAL EXAMINATION: VITAL SIGNS: Blood pressure 124/89, pulse 119, and respirations 14. NECK: Thick trach secretions. LUNGS: Bilateral breath sounds with rhonchi. CARDIAC: Regular rhythm, rapid rate. Normal S1, S2. ABDOMEN: Soft. EXTREMITIES: No edema. PICC line has been placed. IMPRESSION: 1. Sepsis. 2. Secondary sinus tachycardia. 3. Respiratory failure with tracheostomy. 4. Left pleural effusion and atelectasis. 5. Severe protein-calorie malnutrition. 6. Chronic encephalopathy. PLAN: 1. IV fluids. 2. Antimicrobials. 3. Antipyretics. 4. Respiratory support. 5. No role for antiarrhythmics. 6. Followup blood cultures. Kali Melgar M.D. DR: EFREN JOB#: [id number] CC:
[2019-09-27] MEDS: NovoLOG Insulin Flexpen SUBQ SCH ×4 (00:08→17:15)
[2019-09-27] MEDS: levETIRAcetam 500mg/5ml Liquid GT SCH ×3 (02:04→17:24)
[2019-09-27 04:00] VITALS: BP 140/86
[2019-09-27 05:38] LABS: BASOPHILS % (AUTO) 0.9 % (0.0-2.0); EOSINOPHILS % (AUTO) 4.7 % (0.0-3.0); HEMATOCRIT 29.4 % (42.0-52.0); HEMOGLOBIN 9.2 G/DL (14.2-18.0); LYMPHOCYTES % (AUTO) 9.3 % (20.0-45.0); MEAN CORPUSCULAR VOLUME 92 FL (80-99); NEUTROPHILS % (AUTO) 82.2 % (45.0-75.0); PLATELET COUNT 235 K/UL (150-450); RED BLOOD COUNT 3.19 M/UL (4.70-6.10); RED CELL DISTRIBUTION WIDTH 15.3 % (11.6-14.8); WHITE BLOOD COUNT 14.1 K/UL (4.8-10.8)
[2019-09-27] MEDS: Meropenem 1 GM in NS 55 ML IVPB SCH ×3 (06:06→22:25)
[2019-09-27] MEDS: sitaGLIPtin 50mg tab GT SCH (06:07)
[2019-09-27 06:44] LABS: ALBUMIN 1.9 G/DL (3.4-5.0); ALBUMIN/GLOBULIN RATIO 0.4 (1.0-2.7); ALKALINE PHOSPHATASE 134 U/L (46-116); ANION GAP 12 mmol/L (5-15); BILIRUBIN,TOTAL 0.4 MG/DL (0.2-1.0); BLOOD UREA NITROGEN 13 mg/dL (7-18); CALCIUM 9.9 MG/DL (8.5-10.1); CARBON DIOXIDE 22 MMOL/L (21-32); CHLORIDE 105 MMOL/L (98-107); PHOSPHORUS 3.1 MG/DL (2.5-4.9); POTASSIUM 4.3 MMOL/L (3.5-5.1); SODIUM 138 MMOL/L (136-145)
[2019-09-27 06:46] LABS: ALANINE AMINOTRANSFERASE 22 U/L (12-78); ASPARTATE AMINO TRANSFERASE 32 U/L (15-37)
[2019-09-27 08:00] VITALS: BP 125/72
[2019-09-27] MEDS: Clobetasol Cream 0.05% 15gm TOPIC SCH ×2 (08:08→20:30)
[2019-09-27] MEDS: Acetaminophen 650mg/20.3ml GT PRN (08:09)
[2019-09-27] MEDS: Tamsulosin 0.4mg cap ORAL SCH (08:09)
[2019-09-27] MEDS: Heparin 5000 units/ml inj SUBQ SCH ×2 (08:11→20:37)
--- NOTE | 2019-09-27 09:02 | Urology Progress Note ---
Assessment/Plan Status: stable Assessment/Plan: 1. Urinary retention. 2. BPH. 3. Neurogenic bladder. 4. Incontinence. 5. Pyuria/UTI/colonized. 6. Hematuria. 7. Proteinuria. 8. Renal insufficiency, acute possibly on chronic. 9. Renal cyst. 10. Nephrolithiasis. 11. POD # 10, cysto/optic urethrotomy. monitor clinically kendrick placed 09/17 hand irrigated and do PRN abx as ordered, pr ID consider antifungals, per ID monitor WBC f/u on last blood cx Subjective Allergies: Coded Allergies: AZTREONAM (Verified Allergy, Unknown, 05/13/18) Subjective all noted, kendrick draining, non-verbal Objective Last 24 Hour Vital Signs Date Time Temp Pulse Resp B/P (MAP) Pulse Ox O2 Delivery O2 Flow Rate FiO2 09/27/19 08:00 101.2 133 16 125/72 (89) 100 09/27/19 08:00 30 09/27/19 08:00 Mechanical Ventilator 09/27/19 06:45 126 15 30 09/27/19 05:06 108 18 30 09/27/19 04:00 30 09/27/19 04:00 Mechanical Ventilator 09/27/19 04:00 98.2 120 14 140/86 (104) 100 09/27/19 04:00 125 09/27/19 03:15 114 15 30 09/27/19 01:23 110 16 30 09/27/19 00:00 30 09/27/19 00:00 98.2 121 14 122/70 (87) 100 09/27/19 00:00 Mechanical Ventilator 09/27/19 00:00 120 09/26/19 22:55 108 15 30 09/26/19 21:12 109 14 30 09/26/19 20:00 121 09/26/19 20:00 30 09/26/19 20:00 Mechanical Ventilator 09/26/19 20:00 98.8 119 14 124/89 (101) 100 09/26/19 19:15 112 16 30 09/26/19 17:18 110 15 30 09/26/19 16:00 98.0 108 14 129/71 (90) 100 09/26/19 16:00 30 09/26/19 16:00 Mechanical Ventilator 09/26/19 16:00 119 09/26/19 15:18 118 18 30 09/26/19 12:55 119 16 30 09/26/19 12:00 98.8 112 14 108/61 (77) 100 09/26/19 12:00 Mechanical Ventilator 09/26/19 12:00 30 09/26/19 11:22 112 09/26/19 10:30 113 14 30 Intake and Output 09/26/19 09/27/19 19:00 07:00 Intake Total 2935 ml 2656 ml Output Total 1900 ml 1750 ml Balance 1035 ml 906 ml Free Water 700 ml 400 ml IV Total 1455 ml 1476 ml Tube Feeding 780 ml 780 ml Output Urine Total 1700 ml 1500 ml Stool Total 200 ml 250 ml Microbiology Date/Time Source Procedure Growth Status 09/25/19 23:15 Blood Blood Culture - Preliminary Resulted 09/15/19 11:00 Nasal Nares - Final Complete 09/15/19 11:00 Nasal Nares - Final Complete 09/25/19 19:00 Stool Clostridium difficile Toxin Assay - Final Complete 09/25/19 19:00 Urine,Clean Catch Urine Culture - Preliminary NO GROWTH AFTER 24 HOURS Resulted 09/14/19 09:10 Rectum VRE Culture - Final Enterococcus Faecium - Vre Complete Current Medications Medications (Trade) Dose Ordered Sig/Va Route PRN Reason Start Time Stop Time Status Last Admin Dose Admin Acetaminophen (Tylenol) 650 mg Q4H PRN GT Mild Pain/Temp > 100.6 09/16/19 18:42 10/16/19 18:41 09/27/19 08:09 Artificial Tears (Akwa-Tears) 2 drop Q12HR BOTH EYES 09/16/19 21:00 10/14/19 20:59 09/27/19 08:08 Baclofen (Lioresal) 10 mg THREE TIMES A DAY GT 09/17/19 09:00 10/14/19 17:59 09/27/19 08:08 Calcitonin [place] (Miacalcin) 1 sprays DAILY NASAL 09/18/19 12:00 10/18/19 11:59 09/27/19 08:08 Chlorhexidine Gluconate (Rebecca-Hex 2%) 1 applic DAILY@1999 TOPIC 09/26/19 20:00 10/26/19 19:59 09/26/19 20:20 Clobetasol Propionate (Temovate) 1 applic EVERY 12 HOURS TOPIC 09/16/19 21:00 10/14/19 20:59 09/27/19 08:08 Dextrose (Dextrose 50%) 25 ml Q30M PRN IV Hypoglycemia 09/16/19 18:45 10/14/19 14:44 Dextrose (Dextrose 50%) 50 ml Q30M PRN IV Hypoglycemia 09/16/19 18:45 10/14/19 14:44 Famotidine (Pepcid) 20 mg BID GT 09/18/19 18:00 10/18/19 17:59 09/27/19 08:08 Fenofibrate (Tricor) 145 mg DAILY ORAL 09/17/19 09:00 10/15/19 08:59 09/27/19 08:08 Heparin Sodium (Porcine) (Heparin 5000 units/ml) 5,000 units EVERY 12 HOURS SUBQ 09/16/19 21:00 10/14/19 20:59 09/27/19 08:11 Insulin Aspart (NovoLOG) EVERY 6 HOURS SUBQ 09/20/19 12:00 10/14/19 16:29 09/27/19 06:06 Levetiracetam (Keppra) 1,000 mg Q8H GT 09/19/19 02:00 10/19/19 01:59 09/27/19 02:04 Meropenem 1 gm/ Sodium Chloride 55 ml @ 110 mls/hr Q8HR IVPB 09/25/19 14:00 09/30/19 13:59 09/27/19 06:06 Ondansetron HCl (Zofran) 4 mg Q6H PRN IVP Nausea & Vomiting 09/16/19 18:44 10/16/19 18:43 Polyethylene Glycol (Miralax) 17 gm DAILYPRN PRN GT Constipation 09/16/19 18:44 10/16/19 18:43 Sitagliptin Phosphate (Januvia) 50 mg ACBREAKFAST GT 09/17/19 06:30 10/15/19 06:29 09/27/19 06:07 Sodium Chloride 1,000 ml @ 125 mls/hr Q8H IV 09/25/19 01:45 10/25/19 01:44 09/27/19 08:47 Tamsulosin HCl (Flomax) 0.4 mg DAILY ORAL 09/17/19 09:00 10/17/19 08:59 09/27/19 08:09 Vancomycin HCl (Vanco rx to dose) 1 ea DAILY PRN MISC Per rx protocol 09/25/19 12:45 10/25/19 12:44 Vancomycin/Sodium Chloride 275 ml @ 137.5 mls/ hr Q24H IVPB 09/25/19 15:00 09/30/19 14:59 09/26/19 15:10 Laboratory Tests 09/27/19 04:35: White Blood Count 14.1H, Red Blood Count 3.19L, Hemoglobin 9.2L, Hematocrit 29.4L, Mean Corpuscular Volume 92, Mean Corpuscular Hemoglobin 28.7, Mean Corpuscular Hemoglobin Concent 31.2L, Red Cell Distribution Width 15.3H, Platelet Count 235, Mean Platelet Volume 7.5, Neutrophils (%) (Auto) 82.2H, Lymphocytes (%) (Auto) 9.3L, Monocytes (%) (Auto) 3.0, Eosinophils (%) (Auto) 4.7H, Basophils (%) (Auto) 0.9, Sodium Level 138, Potassium Level 4.3, Chloride Level 105, Carbon Dioxide Level 22, Anion Gap 12, Blood Urea Nitrogen 13, Creatinine 1.0, Estimat Glomerular Filtration Rate > 60, Glucose Level 188#H, Calcium Level 9.9, Phosphorus Level 3.1, Magnesium Level 1.8, Total Bilirubin 0.4, Aspartate Amino Transf (AST/SGOT) 32, Alanine Aminotransferase (ALT/SGPT) 22, Alkaline Phosphatase 134H, C-Reactive Protein, Quantitative 31.8H, Total Protein 6.7, Albumin 1.9L, Globulin 4.8, Albumin/Globulin Ratio 0.4L 09/27/19 06:30: Erythrocyte Sedimentation Rate 128H Height (Feet): 5 Height (Inches): 7.00 Weight (Pounds): 206 Objective exam stable kendrick indwelling, yellow/hermelindo urine, some debris minimal bleeding at penile meatus Manohar Villarreal MD Sep 27, 2019 09:02
--- NOTE | 2019-09-27 09:14 | Nephrology Progress Note ---
Assessment/Plan Problem List: (1) Renal failure (ARF), acute on chronic (2) Urinary retention (3) Acute on chronic respiratory failure (4) Hypercalcemia Assessment Hypercalcemia Urinary retention, BPH , Acute on chronic renal failure Electrolyte imbalance Colostomy DM PEG Vegetative state Acute on chronic respiratory failure Plan recheck K Free water- K and Phos and Mag supplements as needed pulm support Aredia for high Ca on 09/18 redose today 09/23 Subjective ROS Limited/Unobtainable: Yes Objective Objective Last 24 Hour Vital Signs Date Time Temp Pulse Resp B/P (MAP) Pulse Ox O2 Delivery O2 Flow Rate FiO2 09/27/19 08:00 101.2 133 16 125/72 (89) 100 09/27/19 08:00 30 09/27/19 08:00 Mechanical Ventilator 09/27/19 06:45 126 15 30 09/27/19 05:06 108 18 30 09/27/19 04:00 30 09/27/19 04:00 Mechanical Ventilator 09/27/19 04:00 98.2 120 14 140/86 (104) 100 09/27/19 04:00 125 09/27/19 03:15 114 15 30 09/27/19 01:23 110 16 30 09/27/19 00:00 30 09/27/19 00:00 98.2 121 14 122/70 (87) 100 09/27/19 00:00 Mechanical Ventilator 09/27/19 00:00 120 09/26/19 22:55 108 15 30 09/26/19 21:12 109 14 30 09/26/19 20:00 121 09/26/19 20:00 30 09/26/19 20:00 Mechanical Ventilator 09/26/19 20:00 98.8 119 14 124/89 (101) 100 09/26/19 19:15 112 16 30 09/26/19 17:18 110 15 30 09/26/19 16:00 98.0 108 14 129/71 (90) 100 09/26/19 16:00 30 09/26/19 16:00 Mechanical Ventilator 09/26/19 16:00 119 09/26/19 15:18 118 18 30 09/26/19 12:55 119 16 30 09/26/19 12:00 98.8 112 14 108/61 (77) 100 09/26/19 12:00 Mechanical Ventilator 09/26/19 12:00 30 09/26/19 11:22 112 09/26/19 10:30 113 14 30 Intake and Output 09/26/19 09/27/19 19:00 07:00 Intake Total 2935 ml 2656 ml Output Total 1900 ml 1750 ml Balance 1035 ml 906 ml Free Water 700 ml 400 ml IV Total 1455 ml 1476 ml Tube Feeding 780 ml 780 ml Output Urine Total 1700 ml 1500 ml Stool Total 200 ml 250 ml Laboratory Tests 09/27/19 04:35: White Blood Count 14.1H, Red Blood Count 3.19L, Hemoglobin 9.2L, Hematocrit 29.4L, Mean Corpuscular Volume 92, Mean Corpuscular Hemoglobin 28.7, Mean Corpuscular Hemoglobin Concent 31.2L, Red Cell Distribution Width 15.3H, Platelet Count 235, Mean Platelet Volume 7.5, Neutrophils (%) (Auto) 82.2H, Lymphocytes (%) (Auto) 9.3L, Monocytes (%) (Auto) 3.0, Eosinophils (%) (Auto) 4.7H, Basophils (%) (Auto) 0.9, Sodium Level 138, Potassium Level 4.3, Chloride Level 105, Carbon Dioxide Level 22, Anion Gap 12, Blood Urea Nitrogen 13, Creatinine 1.0, Estimat Glomerular Filtration Rate > 60, Glucose Level 188#H, Calcium Level 9.9, Phosphorus Level 3.1, Magnesium Level 1.8, Total Bilirubin 0.4, Aspartate Amino Transf (AST/SGOT) 32, Alanine Aminotransferase (ALT/SGPT) 22, Alkaline Phosphatase 134H, C-Reactive Protein, Quantitative 31.8H, Total Protein 6.7, Albumin 1.9L, Globulin 4.8, Albumin/Globulin Ratio 0.4L 09/27/19 06:30: Erythrocyte Sedimentation Rate 128H Height (Feet): 5 Height (Inches): 7.00 Weight (Pounds): 206 General Appearance: no apparent distress EENT: other - trach Cardiovascular: tachycardia Respiratory/Chest: decreased breath sounds Abdomen: soft Objective no change Cl Zaragoza MD Sep 27, 2019 09:14
[2019-09-27] MEDS ORDERED: Omnipaque-300 100ml vial INJ PRN (11:15)
--- NOTE | 2019-09-27 11:19 | Infectious Diseases Prog Note ---
Assessment/Plan Assessment/Plan Assessment: Sepsis, recurrent- Gram negative bacteremia- r/o intradominal source vs UTI -09/25 Cdiff eng CXR: Left pleural effusion is unchanged. Left perihilar atelectasis is unchanged. Tracheostomy again demonstrated. Bcx 01/23 GNR u/a wbc 15-20, nit neg, leuk +2; ucx NTD Fever, recurrent Leukocytosis, recurrent; improving UTI, sp rx Probable PNA,sp Rx -Bcx Neg -u/a wbc tnct, nit neg, leuk +3; ucx C. parasilopsis -sp cx ESBL P. mirabilis, MDR P. stuarti (S Cefepime, Zosyn, Ertapenem) -CXR: Geographic density overlying the right upper lung. This likely represents overlying soft tissue although cannot exclude an underlying consolidation/pneumonia. Pulmonary vascular congestion. Small left pleural effusion. Subsegmental atelectasis versus infiltrate in the left lung base. -Influenza A/B ag neg DIVYA, SP Mild AST elevation, SP -Abd uS: Hepatomegaly with fatty infiltration. Suspected nonobstructive stone left kidney. Left renal cyst Sacral decubitus hx of recurrent UTIs -UCx 11/17/18 P.a. (R Levo, otherwise S) - CT abd 11/19/18 3 mm distal right ureteral calculus, minimal resultant hydronephrosis. Atrophic left kidney, containing a large staghorn calculus and multiple intrarenal calyceal calculi, previously described UCx 11/23/18 - Enterobacter (S Cefepime) and yeast and Pa HTN CKD ICH s/p craniotomy and [employer]MIN[employer]RATIVE [employer]ISTANT shunt now w/ persistent vegetative state dysphagia s/p GT Chronic resp failure - vent/trach dependent ICH COPD DM Seizure disorder BPH Dysphagia, G tube Colostomy SNF resident Plan: -D/c empiric IV Vancomycin #3 -Continue empiric Meropenem #3 -09/23 SP ertapenem #4 - 09/19/10 S/P Meropenem - 09/17 SP IV Vancomycin #4 - 09/14 SP Cefepime x1 -f/u cx -Monitor CBC/CMP, temperatures -PEG/Trach/ICU care -aspiration precautions -wound care -repaet Bcx 2 -CT c/abd/p w/ Thank you for this consultation. Will continue to follow along with you. Discussed with RN Subjective Allergies: Coded Allergies: AZTREONAM (Verified Allergy, Unknown, 05/13/18) Subjective Tm 101.8 wbc improving bacteremic gnr Objective Vital Signs Last 24 Hour Vital Signs Date Time Temp Pulse Resp B/P (MAP) Pulse Ox O2 Delivery O2 Flow Rate FiO2 09/27/19 10:40 122 14 30 09/27/19 09:10 135 16 30 09/27/19 08:39 101.8 09/27/19 08:00 135 09/27/19 08:00 101.2 133 16 125/72 (89) 100 09/27/19 08:00 30 09/27/19 08:00 Mechanical Ventilator 09/27/19 06:45 126 15 30 09/27/19 05:06 108 18 30 09/27/19 04:00 30 09/27/19 04:00 Mechanical Ventilator 09/27/19 04:00 98.2 120 14 140/86 (104) 100 09/27/19 04:00 125 09/27/19 03:15 114 15 30 09/27/19 01:23 110 16 30 09/27/19 00:00 30 09/27/19 00:00 98.2 121 14 122/70 (87) 100 09/27/19 00:00 Mechanical Ventilator 09/27/19 00:00 120 09/26/19 22:55 108 15 30 09/26/19 21:12 109 14 30 09/26/19 20:00 121 09/26/19 20:00 30 09/26/19 20:00 Mechanical Ventilator 09/26/19 20:00 98.8 119 14 124/89 (101) 100 09/26/19 19:15 112 16 30 09/26/19 17:18 110 15 30 09/26/19 16:00 98.0 108 14 129/71 (90) 100 09/26/19 16:00 30 09/26/19 16:00 Mechanical Ventilator 09/26/19 16:00 119 09/26/19 15:18 118 18 30 09/26/19 12:55 119 16 30 09/26/19 12:00 98.8 112 14 108/61 (77) 100 09/26/19 12:00 Mechanical Ventilator 09/26/19 12:00 30 09/26/19 11:22 112 Height (Feet): 5 Height (Inches): 7.00 Weight (Pounds): 206 Objective GENERAL: Noncommunicative. Tongue fasciculation. Moderate edema. LUNGS: Diminished breath sounds. CARDIAC: Regular rhythm. Rapid rate. Normal S1, S2. ABDOMEN: Soft with G-tube and colostomy bag. Microbiology Date/Time Source Procedure Growth Status 09/25/19 23:15 Blood Blood Culture - Preliminary Resulted 09/25/19 23:10 Blood Blood Culture - Preliminary Resulted 09/25/19 19:00 Stool Clostridium difficile Toxin Assay - Final Complete 09/25/19 19:00 Urine,Clean Catch Urine Culture - Preliminary NO GROWTH AFTER 24 HOURS Resulted Laboratory Tests Test 09/27/19 04:35 09/27/19 06:30 White Blood Count 14.1 K/UL (4.8-10.8) H Red Blood Count 3.19 M/UL (4.70-6.10) L Hemoglobin 9.2 G/DL (14.2-18.0) L Hematocrit 29.4 % (42.0-52.0) L Mean Corpuscular Volume 92 FL (80-99) Mean Corpuscular Hemoglobin 28.7 PG (27.0-31.0) Mean Corpuscular Hemoglobin Concent 31.2 G/DL (32.0-36.0) L Red Cell Distribution Width 15.3 % (11.6-14.8) H Platelet Count 235 K/UL (150-450) Mean Platelet Volume 7.5 FL (6.5-10.1) Neutrophils (%) (Auto) 82.2 % (45.0-75.0) H Lymphocytes (%) (Auto) 9.3 % (20.0-45.0) L Monocytes (%) (Auto) 3.0 % (1.0-10.0) Eosinophils (%) (Auto) 4.7 % (0.0-3.0) H Basophils (%) (Auto) 0.9 % (0.0-2.0) Sodium Level 138 MMOL/L (136-145) Potassium Level 4.3 MMOL/L (3.5-5.1) Chloride Level 105 MMOL/L (98-107) Carbon Dioxide Level 22 MMOL/L (21-32) Anion Gap 12 mmol/L (5-15) Blood Urea Nitrogen 13 mg/dL (7-18) Creatinine 1.0 MG/DL (0.55-1.30) Estimat Glomerular Filtration Rate > 60 mL/min (>60) Glucose Level 188 MG/DL (74-106) #H Calcium Level 9.9 MG/DL (8.5-10.1) Phosphorus Level 3.1 MG/DL (2.5-4.9) Magnesium Level 1.8 MG/DL (1.8-2.4) Total Bilirubin 0.4 MG/DL (0.2-1.0) Aspartate Amino Transf (AST/SGOT) 32 U/L (15-37) Alanine Aminotransferase (ALT/SGPT) 22 U/L (12-78) Alkaline Phosphatase 134 U/L (46-116) H C-Reactive Protein, Quantitative 31.8 mg/dL (0.00-0.90) H Total Protein 6.7 G/DL (6.4-8.2) Albumin 1.9 G/DL (3.4-5.0) L Globulin 4.8 g/dL Albumin/Globulin Ratio 0.4 (1.0-2.7) L Erythrocyte Sedimentation Rate 128 MM/HR (0-20) H Current Medications Medications (Trade) Dose Ordered Sig/Va Route PRN Reason Start Time Stop Time Status Last Admin Dose Admin Acetaminophen (Tylenol) 650 mg Q4H PRN GT Mild Pain/Temp > 100.6 09/16/19 18:42 10/16/19 18:41 09/27/19 08:09 Artificial Tears (Akwa-Tears) 2 drop Q12HR BOTH EYES 09/16/19 21:00 10/14/19 20:59 09/27/19 08:08 Baclofen (Lioresal) 10 mg THREE TIMES A DAY GT 09/17/19 09:00 10/14/19 17:59 09/27/19 08:08 Calcitonin [place] (Miacalcin) 1 sprays DAILY NASAL 09/18/19 12:00 10/18/19 11:59 09/27/19 08:08 Chlorhexidine Gluconate (Rebecca-Hex 2%) 1 applic DAILY@1999 TOPIC 09/26/19 20:00 10/26/19 19:59 09/26/19 20:20 Clobetasol Propionate (Temovate) 1 applic EVERY 12 HOURS TOPIC 09/16/19 21:00 12/24/19 20:59 09/27/19 08:08 Dextrose (Dextrose 50%) 25 ml Q30M PRN IV Hypoglycemia 09/16/19 18:45 10/14/19 14:44 Dextrose (Dextrose 50%) 50 ml Q30M PRN IV Hypoglycemia 09/16/19 18:45 10/14/19 14:44 Famotidine (Pepcid) 20 mg BID GT 09/18/19 18:00 10/18/19 17:59 09/27/19 08:08 Fenofibrate (Tricor) 145 mg DAILY ORAL 09/17/19 09:00 10/15/19 08:59 09/27/19 08:08 Heparin Sodium (Porcine) (Heparin 5000 units/ml) 5,000 units EVERY 12 HOURS SUBQ 09/16/19 21:00 10/14/19 20:59 09/27/19 08:11 Insulin Aspart (NovoLOG) EVERY 6 HOURS SUBQ 09/20/19 12:00 10/14/19 16:29 09/27/19 06:06 Levetiracetam (Keppra) 1,000 mg Q8H GT 09/19/19 02:00 10/19/19 01:59 09/27/19 09:14 Meropenem 1 gm/ Sodium Chloride 55 ml @ 110 mls/hr Q8HR IVPB 09/25/19 14:00 09/30/19 13:59 09/27/19 06:06 Ondansetron HCl (Zofran) 4 mg Q6H PRN IVP Nausea & Vomiting 09/16/19 18:44 10/16/19 18:43 Polyethylene Glycol (Miralax) 17 gm DAILYPRN PRN GT Constipation 09/16/19 18:44 10/16/19 18:43 Sitagliptin Phosphate (Januvia) 50 mg ACBREAKFAST GT 09/17/19 06:30 10/15/19 06:29 09/27/19 06:07 Sodium Chloride 1,000 ml @ 125 mls/hr Q8H IV 09/25/19 01:45 10/25/19 01:44 09/27/19 08:47 Tamsulosin HCl (Flomax) 0.4 mg DAILY ORAL 09/17/19 09:00 10/17/19 08:59 09/27/19 08:09 Vancomycin HCl (Vanco rx to dose) 1 ea DAILY PRN MISC Per rx protocol 09/25/19 12:45 10/25/19 12:44 Vancomycin/Sodium Chloride 275 ml @ 137.5 mls/ hr Q24H IVPB 09/25/19 15:00 09/30/19 14:59 09/26/19 15:10 Maribel Barrera M.D. Sep 27, 2019 11:19
[2019-09-27] MEDS ORDERED: Amikacin Rx to dose MISC PRN (11:30)
[2019-09-27 12:00] VITALS: BP 106/62
[2019-09-27] MEDS ORDERED: Amikacin 1,000 MG in NS 110 ML IV SCH (12:30)
[2019-09-27] MEDS ORDERED: NS 275ml ONE (15:45)
[2019-09-27] MEDS ORDERED: Tubing IV Secondary IV ONE (15:45)
[2019-09-27 16:00] VITALS: BP 146/93
[2019-09-27 20:00] VITALS: BP 142/98
[2019-09-27] MEDS: Dyna-Hex 2% Top Sol 2oz TOPIC SCH (20:30)
--- NOTE | 2019-09-27 21:07 | Pulmonolgy Critical Care Note ---
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 (7) ATN (acute tubular necrosis) Respiratory: monitor respiratory rate, adjust FIO2, CXR Cardiac: continue to monitor HR/BP Renal: F/U I&O, keep IV fluid, check electrolytes Infectious Disease: check cultures, continue antibiotics Gastrointestinal: continue feedings/current rate Endocrine: monitor blood sugar, check HgA1C Hematologic: transfuse if hgb<8.5 Neurologic: PRN Ativan, PRN Morphine, keep patient comfortable Affect: PRN ativan Prophylaxis: Protonix Notes Reviewed: java flex developer, cardio Discussed with: nurses, consultants, corrections caseworkerfinancial analysis manager - Objective Last 24 Hour Vital Signs Date Time Temp Pulse Resp B/P (MAP) Pulse Ox O2 Delivery O2 Flow Rate FiO2 09/27/19 21:05 110 15 30 09/27/19 20:00 97.9 110 14 142/98 (113) 100 09/27/19 19:09 116 16 30 09/27/19 17:20 122 15 30 09/27/19 16:00 30 09/27/19 16:00 99.1 115 15 146/93 (110) 100 09/27/19 16:00 Mechanical Ventilator 09/27/19 16:00 106 09/27/19 15:05 116 14 30 09/27/19 13:20 109 14 30 09/27/19 12:00 122 09/27/19 12:00 99.4 116 16 106/62 (77) 100 09/27/19 12:00 Mechanical Ventilator 09/27/19 12:00 30 09/27/19 10:40 122 14 30 09/27/19 09:10 135 16 30 09/27/19 08:39 101.8 09/27/19 08:00 135 09/27/19 08:00 101.2 133 16 125/72 (89) 100 09/27/19 08:00 30 09/27/19 08:00 Mechanical Ventilator 09/27/19 06:45 126 15 30 09/27/19 05:06 108 18 30 09/27/19 04:00 30 09/27/19 04:00 Mechanical Ventilator 09/27/19 04:00 98.2 120 14 140/86 (104) 100 12/7/19 04:00 125 09/27/19 03:15 114 15 30 09/27/19 01:23 110 16 30 09/27/19 00:00 30 09/27/19 00:00 98.2 121 14 122/70 (87) 100 09/27/19 00:00 Mechanical Ventilator 09/27/19 00:00 120 09/26/19 22:55 108 15 30 09/26/19 21:12 109 14 30 Status: awake Condition: critical HEENT: atraumatic Heart: HR/BP stable, regular Abdomen: non-tender, feeding tube Decubiti: location Micro: Microbiology Date/Time Source Procedure Growth Status 09/25/19 23:15 Blood Blood Culture - Preliminary Resulted 09/25/19 23:10 Blood Blood Culture - Preliminary Resulted 09/25/19 19:00 Stool Clostridium difficile Toxin Assay - Final Complete 09/25/19 19:00 Urine,Clean Catch Urine Culture - Preliminary NO GROWTH AFTER 24 HOURS Resulted Accucheck: 142 Critical Care - Subjective ROS Limited/Unobtainable: Yes Condition: critical EKG Rhythm: Sinus Rhythm FI02: 30 Vent Support Breath Rate: 14 Vent Support Mode: AC Vent Tidal Volume: 600 Sputum Amount: Small PEEP: 5.0 PIP: 31 Tube Feeding Amount: 65 I&O: Intake and Output 09/26/19 09/27/19 18:59 06:59 Intake Total 2720.41 ml 2756 ml Output Total 1300 ml 2350 ml Balance 1420.41 ml 406 ml Free Water 600 ml 500 ml IV Total 1340.41 ml 1476 ml Tube Feeding 780 ml 780 ml Output Urine Total 1100 ml 2100 ml Stool Total 200 ml 250 ml Labs: Laboratory Tests Test 09/27/19 04:35 09/27/19 06:30 White Blood Count 14.1 K/UL (4.8-10.8) H Red Blood Count 3.19 M/UL (4.70-6.10) L Hemoglobin 9.2 G/DL (14.2-18.0) L Hematocrit 29.4 % (42.0-52.0) L Mean Corpuscular Volume 92 FL (80-99) Mean Corpuscular Hemoglobin 28.7 PG (27.0-31.0) Mean Corpuscular Hemoglobin Concent 31.2 G/DL (32.0-36.0) L Red Cell Distribution Width 15.3 % (11.6-14.8) H Platelet Count 235 K/UL (150-450) Mean Platelet Volume 7.5 FL (6.5-10.1) Neutrophils (%) (Auto) 82.2 % (45.0-75.0) H Lymphocytes (%) (Auto) 9.3 % (20.0-45.0) L Monocytes (%) (Auto) 3.0 % (1.0-10.0) Eosinophils (%) (Auto) 4.7 % (0.0-3.0) H Basophils (%) (Auto) 0.9 % (0.0-2.0) Sodium Level 138 MMOL/L (136-145) Potassium Level 4.3 MMOL/L (3.5-5.1) Chloride Level 105 MMOL/L (98-107) Carbon Dioxide Level 22 MMOL/L (21-32) Anion Gap 12 mmol/L (5-15) Blood Urea Nitrogen 13 mg/dL (7-18) Creatinine 1.0 MG/DL (0.55-1.30) Estimat Glomerular Filtration Rate > 60 mL/min (>60) Glucose Level 188 MG/DL (74-106) #H Calcium Level 9.9 MG/DL (8.5-10.1) Phosphorus Level 3.1 MG/DL (2.5-4.9) Magnesium Level 1.8 MG/DL (1.8-2.4) Total Bilirubin 0.4 MG/DL (0.2-1.0) Aspartate Amino Transf (AST/SGOT) 32 U/L (15-37) Alanine Aminotransferase (ALT/SGPT) 22 U/L (12-78) Alkaline Phosphatase 134 U/L (46-116) H C-Reactive Protein, Quantitative 31.8 mg/dL (0.00-0.90) H Total Protein 6.7 G/DL (6.4-8.2) Albumin 1.9 G/DL (3.4-5.0) L Globulin 4.8 g/dL Albumin/Globulin Ratio 0.4 (1.0-2.7) L Erythrocyte Sedimentation Rate 128 MM/HR (0-20) H Nico Goetz MD Sep 27, 2019 21:07
[2019-09-28] VITALS: BP 141/96
[2019-09-28] MEDS: levETIRAcetam 500mg/5ml Liquid GT SCH ×3 (01:58→18:40)
[2019-09-28 04:00] VITALS: BP 140/84
[2019-09-28] MEDS: Meropenem 1 GM in NS 55 ML IVPB SCH ×3 (05:48→21:55)
[2019-09-28] MEDS: NovoLOG Insulin Flexpen SUBQ SCH ×5 (05:49→23:22)
[2019-09-28] MEDS: sitaGLIPtin 50mg tab GT SCH (06:23)
[2019-09-28 08:00] VITALS: BP 129/75
--- NOTE | 2019-09-28 09:30 | Urology Progress Note ---
Assessment/Plan Status: stable Assessment/Plan: 1. Urinary retention. 2. BPH. 3. Neurogenic bladder. 4. Incontinence. 5. Pyuria/UTI/colonized. 6. Hematuria. 7. Proteinuria. 8. Renal insufficiency, acute possibly on chronic. 9. Renal cyst. 10. Nephrolithiasis. 11. POD # 11, cysto/optic urethrotomy. monitor clinically kendrick placed 09/17 hand irrigated and do PRN abx as ordered, pr ID consider antifungals, per ID monitor WBC f/u on last blood cx CT ordered, f/u on result Subjective Allergies: Coded Allergies: AZTREONAM (Verified Allergy, Unknown, 05/13/18) Subjective all noted, kendrick draining, non-verbal Objective Last 24 Hour Vital Signs Date Time Temp Pulse Resp B/P (MAP) Pulse Ox O2 Delivery O2 Flow Rate FiO2 09/28/19 07:15 102 15 30 09/28/19 04:35 109 15 30 09/28/19 04:00 97.8 108 15 140/84 (102) 100 09/28/19 04:00 30 09/28/19 04:00 Mechanical Ventilator 09/28/19 04:00 105 09/28/19 02:32 104 14 30 09/28/19 01:49 111 14 30 09/28/19 00:00 30 09/28/19 00:00 97.2 104 14 141/96 (111) 100 09/28/19 00:00 115 09/28/19 00:00 Mechanical Ventilator 09/27/19 23:07 106 14 30 09/27/19 21:05 110 15 30 09/27/19 20:00 118 09/27/19 20:00 Mechanical Ventilator 09/27/19 20:00 97.9 110 14 142/98 (113) 100 09/27/19 19:09 116 16 30 09/27/19 17:20 122 15 30 09/27/19 16:00 30 09/27/19 16:00 99.1 115 15 146/93 (110) 100 09/27/19 16:00 Mechanical Ventilator 09/27/19 16:00 106 09/27/19 15:05 116 14 30 09/27/19 13:20 109 14 30 09/27/19 12:00 122 09/27/19 12:00 99.4 116 16 106/62 (77) 100 09/27/19 12:00 Mechanical Ventilator 09/27/19 12:00 30 09/27/19 10:40 122 14 30 Intake and Output 09/27/19 09/28/19 19:00 07:00 Intake Total 2049 ml 1505 ml Output Total 1500 ml 1900 ml Balance 549 ml -395 ml Free Water 250 ml IV Total 1474 ml 1505 ml Tube Feeding 325 ml Output Urine Total 1200 ml 1500 ml Stool Total 300 ml 400 ml Microbiology Date/Time Source Procedure Growth Status 09/25/19 23:15 Blood Blood Culture - Preliminary Gram Negative Kwabena Resulted 09/15/19 11:00 Nasal Nares - Final Complete 09/15/19 11:00 Nasal Nares - Final Complete 09/25/19 19:00 Stool Clostridium difficile Toxin Assay - Final Complete 09/25/19 19:00 Urine,Clean Catch Urine Culture - Preliminary YEAST Resulted 09/14/19 09:10 Rectum VRE Culture - Final Enterococcus Faecium - Vre Complete Current Medications Medications (Trade) Dose Ordered Sig/Va Route PRN Reason Start Time Stop Time Status Last Admin Dose Admin Acetaminophen (Tylenol) 650 mg Q4H PRN GT Mild Pain/Temp > 100.6 09/16/19 18:42 10/16/19 18:41 09/27/19 08:09 Amikacin Protocol (Amikacin pharmacy to dose) 1 ea DAILY PRN MISC Per rx protocol 09/27/19 11:30 10/27/19 11:29 Amikacin Sulfate 1000 mg/Sodium Chloride 114 ml @ 114 mls/hr Q24H IV 09/27/19 12:30 10/04/19 12:29 09/27/19 12:38 Artificial Tears (Akwa-Tears) 2 drop Q12HR BOTH EYES 09/16/19 21:00 10/14/19 20:59 09/27/19 20:30 Baclofen (Lioresal) 10 mg THREE TIMES A DAY GT 09/17/19 09:00 10/14/19 17:59 09/27/19 17:24 Barium Sulfate (Readi-Cat 2) 450 ml NOW PRN ORAL Radiology Procedure 09/27/19 11:15 09/29/19 11:15 Calcitonin [place] (Miacalcin) 1 sprays DAILY NASAL 09/18/19 12:00 10/18/19 11:59 09/27/19 08:08 Chlorhexidine Gluconate (Rebecca-Hex 2%) 1 applic DAILY@2000 TOPIC 09/26/19 20:00 10/26/19 19:59 09/27/19 20:30 Clobetasol Propionate (Temovate) 1 applic EVERY 12 HOURS TOPIC 09/16/19 21:00 10/14/19 20:59 09/27/19 20:30 Dextrose (Dextrose 50%) 25 ml Q30M PRN IV Hypoglycemia 09/16/19 18:45 10/14/19 14:44 Dextrose (Dextrose 50%) 50 ml Q30M PRN IV Hypoglycemia 09/16/19 18:45 10/14/19 14:44 Famotidine (Pepcid) 20 mg BID GT 09/18/19 18:00 10/18/19 17:59 09/27/19 17:24 Fenofibrate (Tricor) 145 mg DAILY ORAL 09/17/19 09:00 10/15/19 08:59 09/27/19 08:08 Heparin Sodium (Porcine) (Heparin 5000 units/ml) 5,000 units EVERY 12 HOURS SUBQ 09/16/19 21:00 10/14/19 20:59 09/27/19 20:37 Insulin Aspart (NovoLOG) EVERY 6 HOURS SUBQ 09/20/19 12:00 10/14/19 16:29 09/27/19 12:39 Iohexol (OMNIPAQUE-300 100ml) 100 ml ONCE PRN INJ Radiology Procedure 09/27/19 11:15 09/29/19 23:59 Levetiracetam (Keppra) 1,000 mg Q8H GT 09/19/19 02:00 10/19/19 01:59 09/28/19 01:58 Meropenem 1 gm/ Sodium Chloride 55 ml @ 110 mls/hr Q8HR IVPB 09/25/19 14:00 09/30/19 13:59 09/28/19 05:48 Ondansetron HCl (Zofran) 4 mg Q6H PRN IVP Nausea & Vomiting 09/16/19 18:44 10/16/19 18:43 Polyethylene Glycol (Miralax) 17 gm DAILYPRN PRN GT Constipation 09/16/19 18:44 10/16/19 18:43 Sitagliptin Phosphate (Januvia) 50 mg ACBREAKFAST GT 09/17/19 06:30 10/15/19 06:29 09/27/19 06:07 Sodium Chloride 1,000 ml @ 125 mls/hr Q8H IV 09/25/19 01:45 10/25/19 01:44 09/28/19 01:58 Tamsulosin HCl (Flomax) 0.4 mg DAILY ORAL 09/17/19 09:00 10/17/19 08:59 09/27/19 08:09 Laboratory Tests 09/28/19 00:20: Miscellaneous Test 2 [Pending] Height (Feet): 5 Height (Inches): 7.00 Weight (Pounds): 210 Objective exam stable kendrick indwelling, yellow/hermelindo urine, some debris Manohar Villarreal MD Sep 28, 2019 09:30
[2019-09-28] MEDS: Tamsulosin 0.4mg cap ORAL SCH (10:18)
[2019-09-28] MEDS: Clobetasol Cream 0.05% 15gm TOPIC SCH ×2 (10:20→20:24)
[2019-09-28] MEDS: Heparin 5000 units/ml inj SUBQ SCH (10:21)
--- NOTE | 2019-09-28 11:17 | Nephrology Progress Note ---
Assessment/Plan Problem List: (1) Renal failure (ARF), acute on chronic (2) Urinary retention (3) Acute on chronic respiratory failure (4) Hypercalcemia Assessment Hypercalcemia Urinary retention, BPH , Acute on chronic renal failure Electrolyte imbalance Colostomy DM PEG Vegetative state Acute on chronic respiratory failure Plan recheck K Free water- K and Phos and Mag supplements as needed pulm support Aredia for high Ca on 09/18 redose today 09/23 Subjective ROS Limited/Unobtainable: Yes Objective Objective Last 24 Hour Vital Signs Date Time Temp Pulse Resp B/P (MAP) Pulse Ox O2 Delivery O2 Flow Rate FiO2 09/28/19 09:06 106 18 30 09/28/19 08:00 Mechanical Ventilator 09/28/19 08:00 30 09/28/19 08:00 99.5 111 16 129/75 (93) 100 09/28/19 08:00 106 09/28/19 07:15 102 15 30 09/28/19 04:35 109 15 30 09/28/19 04:00 97.8 108 15 140/84 (102) 100 09/28/19 04:00 30 09/28/19 04:00 Mechanical Ventilator 09/28/19 04:00 105 09/28/19 02:32 104 14 30 09/28/19 01:49 111 14 30 09/28/19 00:00 30 09/28/19 00:00 97.2 104 14 141/96 (111) 100 09/28/19 00:00 115 09/28/19 00:00 Mechanical Ventilator 09/27/19 23:07 106 14 30 09/27/19 21:05 110 15 30 09/27/19 20:00 118 09/27/19 20:00 Mechanical Ventilator 09/27/19 20:00 97.9 110 14 142/98 (113) 100 09/27/19 19:09 116 16 30 09/27/19 17:20 122 15 30 09/27/19 16:00 30 09/27/19 16:00 99.1 115 15 146/93 (110) 100 09/27/19 16:00 Mechanical Ventilator 09/27/19 16:00 106 09/27/19 15:05 116 14 30 09/27/19 13:20 109 14 30 09/27/19 12:00 122 09/27/19 12:00 99.4 116 16 106/62 (77) 100 09/27/19 12:00 Mechanical Ventilator 09/27/19 12:00 30 Intake and Output 09/27/19 09/28/19 19:00 07:00 Intake Total 2049 ml 1505 ml Output Total 1500 ml 1900 ml Balance 549 ml -395 ml Free Water 250 ml IV Total 1474 ml 1505 ml Tube Feeding 325 ml Output Urine Total 1200 ml 1500 ml Stool Total 300 ml 400 ml Laboratory Tests 09/28/19 00:20: Miscellaneous Test 2 [Pending] Height (Feet): 5 Height (Inches): 7.00 Weight (Pounds): 210 General Appearance: no apparent distress EENT: other - trach Cardiovascular: tachycardia Respiratory/Chest: decreased breath sounds Abdomen: distended Objective no change Cl Zaragoza MD Sep 28, 2019 11:17
--- NOTE | 2019-09-28 11:23 | Diagnostic Imaging Report ---
EXAM: CT Chest With Intravenous Contrast CLINICAL HISTORY: ABSCESS TECHNIQUE: Axial computed tomography images of the chest with intravenous contrast. CTDI is 173.7 mGy and DLP is 2822.5 mGy-cm. One or more of the following dose reduction techniques were used: automated exposure control, adjustment of the mA and/or kV according to patient size, use of iterative reconstruction technique. Coronal and sagittal reformatted images were created and reviewed. COMPARISON: No relevant prior studies available. FINDINGS: Lungs: Bibasilar atelectasis/consolidations. Pleural space: Unremarkable. No pneumothorax. No significant effusion. Heart: Cardiomegaly. No significant pericardial effusion. Thyroid: 10 mm low-density lesion in right thyroid. Bones/joints: Unremarkable. No acute fracture. No dislocation. Soft tissues: Unremarkable. Vasculature: Left lower lobe segmental and subsegmental pulmonary emboli. No thoracic aortic aneurysm. Lymph nodes: Unremarkable. No enlarged lymph nodes. Tubes, lines and devices: Tracheostomy tube. Left PICC line. IMPRESSION: 1. Left lower lobe segmental and subsegmental pulmonary emboli. 2. Bibasilar atelectasis/consolidations. 3. 10 mm low-density lesion in right thyroid. EXAM: CT Abdomen and Pelvis With Intravenous Contrast CLINICAL HISTORY: ABSCESS TECHNIQUE: Axial computed tomography images of the abdomen and pelvis with intravenous contrast. CTDI is 173.7 mGy and DLP is 2822.5 mGy-cm. One or more of the following dose reduction techniques were used: automated exposure control, adjustment of the mA and/or kV according to patient size, use of iterative reconstruction technique. COMPARISON: CT abdomen and pelvis 11/19/18 FINDINGS: Lung bases: Unremarkable. No mass. No consolidation. ABDOMEN: Liver: Heterogeneous large areas of hypoattenuation in the right lobe of the liver. No formed fluid collection to suggest an abscess. Gallbladder and bile ducts: Contracted gallbladder with thickened enhancing wall. No calcified stones. No ductal dilation. Pancreas: Unremarkable. No mass. No ductal dilation. Spleen: Unremarkable. No splenomegaly. Adrenals: Unremarkable. No mass. Kidneys and ureters: Bilateral renal stones, staghorn type in the left kidney, nonobstructive. Mild fullness of the right renal pelvis. Mild bilateral perinephric stranding, correlate for infection. 15 mm low- density lesion left kidney. Stomach and bowel: Percutaneous gastrostomy tube. Right lower quadrant ostomy. No obstruction. No mucosal thickening. PELVIS: Appendix: No findings to suggest acute appendicitis. Bladder: Newberry catheter in urinary bladder. Thickening of the urinary bladder with mild stranding may be cystitis. A few small calcifications in the left urinary bladder base. Reproductive: Unremarkable as visualized. ABDOMEN and PELVIS: Intraperitoneal space: Unremarkable. No free air. No significant fluid collection. Bones/joints: No acute fracture. No dislocation. Soft tissues: Left lateral abdominal wall musculature 1.5 x 2.2 cm fluid collection with enhancing worrisome for an abscess. Small bilateral fat-containing inguinal hernias. Soft tissue induration right lateral abdominal wall. Vasculature: No evidence of pulmonary vein thrombosis. No abdominal aortic aneurysm. Lymph nodes: Unremarkable. No enlarged lymph nodes. IMPRESSION: 1. Heterogeneous large areas of hypoattenuation in the right lobe of the liver, maybe fatty changes, correlate for hepatitis or other process. No formed fluid collection to suggest an abscess. 2. Contracted gallbladder with thickened enhancing wall. 3. Left lateral abdominal wall musculature 1.5 x 2.2 cm fluid collection with enhancing worrisome for an abscess. 4. Bilateral renal stones, staghorn type in the left kidney, nonobstructive. Mild fullness of the right renal pelvis. Mild bilateral perinephric stranding, correlate for infection. 5. Newberry catheter in urinary bladder. Thickening of the urinary bladder with mild stranding may be cystitis. A few small calcifications in the left urinary bladder base. <MYCVCSECTION> Communications: 09/28/19 11:19 Call Nurse Called DONG Og on 09/28 11:19 (-08:00)
[2019-09-28 12:00] VITALS: BP 134/88
[2019-09-28] MEDS ORDERED: NS 275ml ONE (15:04)
[2019-09-28 16:00] VITALS: BP 139/81
[2019-09-28] MEDS ORDERED: Heparin 25,000u/D5W 500ml 500 ML IV SCH (16:45)
[2019-09-28 20:00] VITALS: BP 130/79
[2019-09-28] MEDS ORDERED: Amikacin 1,000 MG in NS 110 ML IV SCH (20:00)
[2019-09-28] MEDS: Dyna-Hex 2% Top Sol 2oz TOPIC SCH (20:22)
[2019-09-28] MEDS: Acetaminophen 650mg/20.3ml GT PRN (20:36)
--- NOTE | 2019-09-28 21:29 | Pulmonolgy Critical Care Note ---
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 (7) ATN (acute tubular necrosis) Respiratory: monitor respiratory rate, adjust FIO2, CXR Cardiac: continue to monitor HR/BP Renal: F/U I&O, keep IV fluid, check electrolytes Infectious Disease: check cultures Gastrointestinal: continue feedings/current rate Endocrine: monitor blood sugar, check TSH Hematologic: monitor H/H, transfuse if hgb<8.5 Neurologic: PRN Morphine, keep patient comfortable Affect: PRN ativan Prophylaxis: Protonix, Heparin Notes Reviewed: harbor master, renal Discussed with: nurses, consultants, manager account managementdistrict loss prevention manager - Objective Last 24 Hour Vital Signs Date Time Temp Pulse Resp B/P (MAP) Pulse Ox O2 Delivery O2 Flow Rate FiO2 09/28/19 21:14 99 16 30 09/28/19 21:06 97.8 09/28/19 20:00 95 09/28/19 20:00 Mechanical Ventilator 09/28/19 20:00 30 09/28/19 20:00 97.8 98 16 130/79 (96) 100 09/28/19 19:03 95 15 30 09/28/19 17:10 101 14 30 09/28/19 16:00 97.7 101 16 139/81 (100) 100 09/28/19 16:00 30 09/28/19 16:00 Mechanical Ventilator 09/28/19 16:00 99 09/28/19 15:08 105 14 30 09/28/19 13:06 109 14 30 09/28/19 12:00 100.1 103 16 134/88 (103) 100 09/28/19 12:00 Mechanical Ventilator 09/28/19 12:00 103 09/28/19 12:00 30 09/28/19 11:18 103 18 30 09/28/19 09:06 106 18 30 09/28/19 08:00 Mechanical Ventilator 09/28/19 08:00 30 09/28/19 08:00 99.5 111 16 129/75 (93) 100 09/28/19 08:00 106 09/28/19 07:15 102 15 30 09/28/19 04:35 109 15 30 09/28/19 04:00 97.8 108 15 140/84 (102) 100 09/28/19 04:00 30 09/28/19 04:00 Mechanical Ventilator 09/28/19 04:00 105 09/28/19 02:32 104 14 30 09/28/19 01:49 111 14 30 09/28/19 00:00 30 09/28/19 00:00 97.2 104 14 141/96 (111) 100 09/28/19 00:00 115 09/28/19 00:00 Mechanical Ventilator 09/27/19 23:07 106 14 30 Status: awake Condition: critical HEENT: atraumatic Neck: full ROM Lungs: rales, rhonchi Abdomen: soft, non-tender, feeding tube Extremities: edema Micro: Microbiology Date/Time Source Procedure Growth Status 09/25/19 23:15 Blood Blood Culture - Preliminary Gram Negative Kwabena Resulted 09/25/19 23:10 Blood Blood Culture - Preliminary Gram Negative Kwabena Resulted Accucheck: 109 Critical Care - Subjective ROS Limited/Unobtainable: Yes Condition: critical EKG Rhythm: Sinus Rhythm FI02: 30 Vent Support Breath Rate: 14 Vent Support Mode: AC Vent Tidal Volume: 600 Sputum Amount: Small PEEP: 5.0 PIP: 34 Tube Feeding Amount: 65 I&O: Intake and Output 09/27/19 09/28/19 19:00 07:00 Intake Total 2049 ml 1505 ml Output Total 1500 ml 1900 ml Balance 549 ml -395 ml Free Water 250 ml IV Total 1474 ml 1505 ml Tube Feeding 325 ml Output Urine Total 1200 ml 1500 ml Stool Total 300 ml 400 ml Labs: Laboratory Tests Test 09/28/19 00:20 09/28/19 16:30 Miscellaneous Test 2 Activated Partial Thromboplast Time 32 SEC (23-33) Nico Goetz MD Sep 28, 2019 21:29
--- NOTE | 2019-09-28 22:45 | Progress Note ---
DATE: 09/28/2019 CARDIOLOGY PROGRESS NOTE SUBJECTIVE: The patient continues to have sinus tachycardia, episodic and fever persists. CT scan revealed pulmonary embolic event. PHYSICAL EXAMINATION: LUNGS: Bilateral breath sounds and rhonchi. CARDIAC: Regular rhythm. Rapid rate. Normal S1 and S2. ABDOMEN: Colostomy and G-tube noted. EXTREMITIES: Trace edema. IMPRESSION: 1. Pulmonary embolus. 2. Sepsis. 3. Healthcare-acquired pneumonia. 4. . 5. . Kali Melgar M.D. DR: MOE JOB#: [id number] CC:
--- NOTE | 2019-09-28 23:15 | Progress Note ---
DATE: 09/27/2019 CARDIOLOGY PROGRESS NOTE LATE ENTRY SUBJECTIVE: The patient remains on ventilator support via trach. He continues to have episodes of tachycardia. He has labile blood pressure readings. He is on broad-spectrum antibiotics. OBJECTIVE: VITAL SIGNS: Blood pressure 142/98, pulse 110, respiratory rate 14, T-max 101.8. LUNGS: Bilateral breath sounds, rhonchi. HEART: rhythm. Rapid rate. Normal S1 and S2. ABDOMEN: Soft. G-tube intact. EXTREMITIES: Trace edema. IMPRESSION: 1. Sepsis. 2. Healthcare acquired pneumonia. 3. Recovered shock. 4. Secondary sinus tachycardia. 5. Ventilator-dependent respiratory failure. 6. G-tube and colostomy. PLAN: 1. Antimicrobials. 2. Volume support. 3. Ventilator support. 4. DVT prophylaxis. 5. Consider further diagnostic study for pulmonary embolic event. Kali Melgar M.D. DR: Kamron JOB#: [id number] CC:
[2019-09-29] VITALS: BP 129/76
[2019-09-29] MEDS ORDERED: Heparin 5000 units/ml inj IV ONE
[2019-09-29] MEDS: Heparin 25,000u/D5W 500ml 500 ML IV SCH ×2 (00:12→07:47)
[2019-09-29] MEDS: levETIRAcetam 500mg/5ml Liquid GT SCH ×3 (02:13→18:18)
[2019-09-29 04:00] VITALS: BP 136/82
[2019-09-29] MEDS: Meropenem 1 GM in NS 55 ML IVPB SCH (05:30)
[2019-09-29] MEDS: sitaGLIPtin 50mg tab GT SCH (05:30)
[2019-09-29] MEDS: NovoLOG Insulin Flexpen SUBQ SCH ×3 (05:32→18:32)
[2019-09-29 07:02] LABS: HEMATOCRIT 23.8 % (42.0-52.0); HEMOGLOBIN 7.6 G/DL (14.2-18.0); MEAN CORPUSCULAR VOLUME 89 FL (80-99); PLATELET COUNT 265 K/UL (150-450); RED BLOOD COUNT 2.67 M/UL (4.70-6.10); RED CELL DISTRIBUTION WIDTH 15.3 % (11.6-14.8); WHITE BLOOD COUNT 10.3 K/UL (4.8-10.8)
[2019-09-29 07:20] LABS: ALANINE AMINOTRANSFERASE 22 U/L (12-78); ALBUMIN 1.8 G/DL (3.4-5.0); ALBUMIN/GLOBULIN RATIO 0.4 (1.0-2.7); ALKALINE PHOSPHATASE 100 U/L (46-116); ANION GAP 8 mmol/L (5-15); ASPARTATE AMINO TRANSFERASE 20 U/L (15-37); BILIRUBIN,TOTAL 0.3 MG/DL (0.2-1.0); BLOOD UREA NITROGEN 9 mg/dL (7-18); CALCIUM 9.5 MG/DL (8.5-10.1); CARBON DIOXIDE 26 MMOL/L (21-32); CHLORIDE 103 MMOL/L (98-107); CREATININE 1.1 MG/DL (0.55-1.30); PHOSPHORUS 3.1 MG/DL (2.5-4.9); POTASSIUM 3.4 MMOL/L (3.5-5.1); SODIUM 137 MMOL/L (136-145)
[2019-09-29 08:00] VITALS: BP 134/73
[2019-09-29] MEDS: Tamsulosin 0.4mg cap ORAL SCH (08:50)
[2019-09-29] MEDS: Clobetasol Cream 0.05% 15gm TOPIC SCH ×2 (09:30→20:12)
--- NOTE | 2019-09-29 10:14 | Nephrology Progress Note ---
Assessment/Plan Problem List: (1) Renal failure (ARF), acute on chronic (2) Urinary retention (3) Acute on chronic respiratory failure (4) Hypercalcemia Assessment Hypercalcemia Urinary retention, BPH , Acute on chronic renal failure Electrolyte imbalance Colostomy DM PEG Vegetative state Acute on chronic respiratory failure Plan consider transfusion: defered tp PMD Free water- K and Phos and Mag supplements as needed pulm support Aredia for high Ca on 09/18 redose today 09/23 Subjective ROS Limited/Unobtainable: Yes Objective Objective Last 24 Hour Vital Signs Date Time Temp Pulse Resp B/P (MAP) Pulse Ox O2 Delivery O2 Flow Rate FiO2 09/29/19 08:55 98 14 30 09/29/19 08:00 97.2 97 16 134/73 (93) 100 09/29/19 08:00 30 09/29/19 07:01 96 14 30 09/29/19 04:49 97 15 30 09/29/19 04:00 89 09/29/19 04:00 30 09/29/19 04:00 96.7 88 15 136/82 (100) 100 09/29/19 04:00 Mechanical Ventilator 09/29/19 02:32 98 14 30 09/29/19 00:44 96 14 30 09/29/19 00:00 30 09/29/19 00:00 Mechanical Ventilator 09/29/19 00:00 97.5 94 15 129/76 (93) 100 09/29/19 00:00 91 09/28/19 22:42 94 14 30 09/28/19 21:14 99 16 30 09/28/19 21:06 97.8 09/28/19 20:00 95 09/28/19 20:00 Mechanical Ventilator 09/28/19 20:00 30 09/28/19 20:00 97.8 98 16 130/79 (96) 100 09/28/19 19:03 95 15 30 09/28/19 17:10 101 14 30 09/28/19 16:00 97.7 101 16 139/81 (100) 100 09/28/19 16:00 30 09/28/19 16:00 Mechanical Ventilator 09/28/19 16:00 99 09/28/19 15:08 105 14 30 09/28/19 13:06 109 14 30 09/28/19 12:00 100.1 103 16 134/88 (103) 100 09/28/19 12:00 Mechanical Ventilator 09/28/19 12:00 103 09/28/19 12:00 30 09/28/19 11:18 103 18 30 Intake and Output 09/28/19 09/29/19 19:00 07:00 Intake Total 1813.582 ml 2432.174 ml Output Total 1300 ml Balance 1813.582 ml 1132.174 ml Free Water 200 ml IV Total 1373.582 ml 1582.174 ml Tube Feeding 440 ml 650 ml Output Urine Total 700 ml Stool Total 600 ml Laboratory Tests 09/28/19 16:30: Activated Partial Thromboplast Time 32 09/28/19 23:05: Activated Partial Thromboplast Time 55H 09/29/19 06:40: Activated Partial Thromboplast Time 66H, White Blood Count 10.3, Red Blood Count 2.67L, Hemoglobin 7.6L, Hematocrit 23.8L, Mean Corpuscular Volume 89, Mean Corpuscular Hemoglobin 28.5, Mean Corpuscular Hemoglobin Concent 31.9L, Red Cell Distribution Width 15.3H, Platelet Count 265, Mean Platelet Volume 7.6 , Neutrophils (%) (Auto) , Lymphocytes (%) (Auto) , Monocytes (%) (Auto) , Eosinophils (%) (Auto) , Basophils (%) (Auto) , Neutrophils % (Manual) [Pending] , Lymphocytes % (Manual) [Pending], Platelet Estimate [Pending], Platelet Morphology [Pending], Sodium Level 137, Potassium Level 3.4L, Chloride Level 103 , Carbon Dioxide Level 26, Anion Gap 8, Blood Urea Nitrogen 9, Creatinine 1.1, Estimat Glomerular Filtration Rate > 60, Glucose Level 164H, Calcium Level 9.5, Phosphorus Level 3.1, Magnesium Level 1.7L, Total Bilirubin 0.3, Aspartate Amino Transf (AST/SGOT) 20, Alanine Aminotransferase (ALT/SGPT) 22, Alkaline Phosphatase 100, Total Protein 6.4, Albumin 1.8L, Globulin 4.6, Albumin/ Globulin Ratio 0.4L Height (Feet): 5 Height (Inches): 7.00 Weight (Pounds): 209 General Appearance: no apparent distress, lethargic EENT: other - trach Cardiovascular: tachycardia Respiratory/Chest: decreased breath sounds Abdomen: distended Objective no change Cl Zaragoza MD Sep 29, 2019 10:14
--- NOTE | 2019-09-29 11:44 | Pulmonolgy Critical Care Note ---
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 (7) ATN (acute tubular necrosis) (8) Pulmonary embolism Respiratory: monitor respiratory rate, adjust FIO2, CXR Cardiac: continue to monitor HR/BP Renal: F/U I&O Infectious Disease: check cultures, continue antibiotics Gastrointestinal: continue feedings/current rate, abdominal imaging Endocrine: monitor blood sugar Hematologic: monitor H/H, transfuse if hgb<8.5 - one or two PRBC Neurologic: keep patient comfortable Affect: PRN ativan Prophylaxis: Protonix Time Spent (Minutes): 40 Notes Reviewed: business administration teacher, cardio Discussed with: nurses, consultants, spring encaserrecruiter manager - Objective Last 24 Hour Vital Signs Date Time Temp Pulse Resp B/P (MAP) Pulse Ox O2 Delivery O2 Flow Rate FiO2 09/29/19 08:55 98 14 30 09/29/19 08:00 97.2 97 16 134/73 (93) 100 09/29/19 08:00 30 09/29/19 08:00 Mechanical Ventilator 09/29/19 08:00 97 09/29/19 07:01 96 14 30 09/29/19 04:49 97 15 30 09/29/19 04:00 89 09/29/19 04:00 30 09/29/19 04:00 96.7 88 15 136/82 (100) 100 09/29/19 04:00 Mechanical Ventilator 09/29/19 02:32 98 14 30 09/29/19 00:44 96 14 30 09/29/19 00:00 30 09/29/19 00:00 Mechanical Ventilator 09/29/19 00:00 97.5 94 15 129/76 (93) 100 09/29/19 00:00 91 09/28/19 22:42 94 14 30 09/28/19 21:14 99 16 30 09/28/19 21:06 97.8 09/28/19 20:00 95 09/28/19 20:00 Mechanical Ventilator 09/28/19 20:00 30 09/28/19 20:00 97.8 98 16 130/79 (96) 100 09/28/19 19:03 95 15 30 09/28/19 17:10 101 14 30 09/28/19 16:00 97.7 101 16 139/81 (100) 100 09/28/19 16:00 30 09/28/19 16:00 Mechanical Ventilator 09/28/19 16:00 99 09/28/19 15:08 105 14 30 09/28/19 13:06 109 14 30 09/28/19 12:00 100.1 103 16 134/88 (103) 100 09/28/19 12:00 Mechanical Ventilator 09/28/19 12:00 103 09/28/19 12:00 30 Status: other - open eyes, vegetative state Condition: critical HEENT: atraumatic, normocephalic Neck: full ROM Heart: HR/BP stable Abdomen: soft, non-tender Extremities: no C/C/E Micro: Microbiology Date/Time Source Procedure Growth Status 09/27/19 17:25 Blood Blood Culture - Preliminary Resulted 09/27/19 17:15 Blood Blood Culture - Preliminary Resulted Accucheck: 153 Critical Care - Subjective ROS Limited/Unobtainable: Yes Condition: critical EKG Rhythm: Sinus Bradycardia FI02: 30 Vent Support Breath Rate: 14 Vent Support Mode: AC Vent Tidal Volume: 600 Sputum Amount: Small PEEP: 5.0 PIP: 32 Tube Feeding Amount: 65 I&O: Intake and Output 09/28/19 09/29/19 19:00 07:00 Intake Total 1813.582 ml 2432.174 ml Output Total 1300 ml Balance 1813.582 ml 1132.174 ml Free Water 200 ml IV Total 1373.582 ml 1582.174 ml Tube Feeding 440 ml 650 ml Output Urine Total 700 ml Stool Total 600 ml Labs: Laboratory Tests Test 09/28/19 16:30 09/28/19 23:05 09/29/19 06:40 Activated Partial Thromboplast Time 32 SEC (23-33) 55 SEC (23-33) H 66 SEC (23-33) H White Blood Count 10.3 K/UL (4.8-10.8) Red Blood Count 2.67 M/UL (4.70-6.10) L Hemoglobin 7.6 G/DL (14.2-18.0) L Hematocrit 23.8 % (42.0-52.0) L Mean Corpuscular Volume 89 FL (80-99) Mean Corpuscular Hemoglobin 28.5 PG (27.0-31.0) Mean Corpuscular Hemoglobin Concent 31.9 G/DL (32.0-36.0) L Red Cell Distribution Width 15.3 % (11.6-14.8) H Platelet Count 265 K/UL (150-450) Mean Platelet Volume 7.6 FL (6.5-10.1) Neutrophils (%) (Auto) % (45.0-75.0) Lymphocytes (%) (Auto) % (20.0-45.0) Monocytes (%) (Auto) % (1.0-10.0) Eosinophils (%) (Auto) % (0.0-3.0) Basophils (%) (Auto) % (0.0-2.0) Neutrophils % (Manual) Pending Lymphocytes % (Manual) Pending Platelet Estimate Pending Platelet Morphology Pending Sodium Level 137 MMOL/L (136-145) Potassium Level 3.4 MMOL/L (3.5-5.1) L Chloride Level 103 MMOL/L (98-107) Carbon Dioxide Level 26 MMOL/L (21-32) Anion Gap 8 mmol/L (5-15) Blood Urea Nitrogen 9 mg/dL (7-18) Creatinine 1.1 MG/DL (0.55-1.30) Estimat Glomerular Filtration Rate > 60 mL/min (>60) Glucose Level 164 MG/DL (74-106) H Calcium Level 9.5 MG/DL (8.5-10.1) Phosphorus Level 3.1 MG/DL (2.5-4.9) Magnesium Level 1.7 MG/DL (1.8-2.4) L Total Bilirubin 0.3 MG/DL (0.2-1.0) Aspartate Amino Transf (AST/SGOT) 20 U/L (15-37) Alanine Aminotransferase (ALT/SGPT) 22 U/L (12-78) Alkaline Phosphatase 100 U/L (46-116) Total Protein 6.4 G/DL (6.4-8.2) Albumin 1.8 G/DL (3.4-5.0) L Globulin 4.6 g/dL Albumin/Globulin Ratio 0.4 (1.0-2.7) L Nico Goetz MD Sep 29, 2019 11:44
[2019-09-29 12:00] VITALS: BP 140/74
--- NOTE | 2019-09-29 13:17 | Urology Progress Note ---
Assessment/Plan Status: stable Assessment/Plan: 1. Urinary retention. 2. BPH. 3. Neurogenic bladder. 4. Incontinence. 5. Pyuria/UTI/colonized. 6. Hematuria. 7. Proteinuria. 8. Renal insufficiency, acute possibly on chronic. 9. Renal cyst. 10. Nephrolithiasis. 11. Renal fullness. 12. Bladder calcifications. 13. POD # 12, cysto/optic urethrotomy. monitor clinically kendrick placed 09/17 hand irrigated and do PRN abx as ordered, pr ID consider antifungals, per ID monitor WBC f/u on last blood cx renal fxn stable Subjective Allergies: Coded Allergies: AZTREONAM (Verified Allergy, Unknown, 05/13/18) Subjective all noted, kendrick draining, non-verbal Objective Last 24 Hour Vital Signs Date Time Temp Pulse Resp B/P (MAP) Pulse Ox O2 Delivery O2 Flow Rate FiO2 09/29/19 12:45 96 14 30 09/29/19 11:02 97 15 30 09/29/19 08:55 98 14 30 09/29/19 08:00 97.2 97 16 134/73 (93) 100 09/29/19 08:00 30 09/29/19 08:00 Mechanical Ventilator 09/29/19 08:00 97 09/29/19 07:01 96 14 30 09/29/19 04:49 97 15 30 09/29/19 04:00 89 09/29/19 04:00 30 09/29/19 04:00 96.7 88 15 136/82 (100) 100 09/29/19 04:00 Mechanical Ventilator 09/29/19 02:32 98 14 30 09/29/19 00:44 96 14 30 09/29/19 00:00 30 09/29/19 00:00 Mechanical Ventilator 09/29/19 00:00 97.5 94 15 129/76 (93) 100 09/29/19 00:00 91 09/28/19 22:42 94 14 30 09/28/19 21:14 99 16 30 09/28/19 21:06 97.8 09/28/19 20:00 95 09/28/19 20:00 Mechanical Ventilator 09/28/19 20:00 30 09/28/19 20:00 97.8 98 16 130/79 (96) 100 09/28/19 19:03 95 15 30 09/28/19 17:10 101 14 30 09/28/19 16:00 97.7 101 16 139/81 (100) 100 09/28/19 16:00 30 09/28/19 16:00 Mechanical Ventilator 09/28/19 16:00 99 09/28/19 15:08 105 14 30 Intake and Output 09/28/19 09/29/19 19:00 07:00 Intake Total 1813.582 ml 2432.174 ml Output Total 1300 ml Balance 1813.582 ml 1132.174 ml Free Water 200 ml IV Total 1373.582 ml 1582.174 ml Tube Feeding 440 ml 650 ml Output Urine Total 700 ml Stool Total 600 ml Microbiology Date/Time Source Procedure Growth Status 09/27/19 17:25 Blood Blood Culture - Preliminary Resulted 09/15/19 11:00 Nasal Nares - Final Complete 09/15/19 11:00 Nasal Nares - Final Complete 09/25/19 19:00 Stool Clostridium difficile Toxin Assay - Final Complete 09/25/19 19:00 Urine,Clean Catch Urine Culture - Final Camelia Parapsilosis Complete 09/14/19 09:10 Rectum VRE Culture - Final Enterococcus Faecium - Vre Complete Current Medications Medications (Trade) Dose Ordered Sig/Va Route PRN Reason Start Time Stop Time Status Last Admin Dose Admin Acetaminophen (Tylenol) 650 mg Q4H PRN GT Mild Pain/Temp > 100.6 09/16/19 18:42 10/16/19 18:41 09/28/19 20:36 Amikacin Protocol (Amikacin pharmacy to dose) 1 ea DAILY PRN MISC Per rx protocol 09/27/19 11:30 10/27/19 11:29 Amikacin Sulfate 1000 mg/Sodium Chloride 114 ml @ 114 mls/hr Q36H IV 09/28/19 20:00 10/05/19 19:59 09/28/19 20:23 Artificial Tears (Akwa-Tears) 2 drop Q12HR BOTH EYES 09/16/19 21:00 10/14/19 20:59 09/29/19 09:29 Baclofen (Lioresal) 10 mg THREE TIMES A DAY GT 09/17/19 09:00 10/14/19 17:59 09/29/19 08:49 Calcitonin [place] (Miacalcin) 1 sprays DAILY NASAL 09/18/19 12:00 10/18/19 11:59 09/29/19 09:30 Chlorhexidine Gluconate (Rebecca-Hex 2%) 1 applic DAILY@1999 TOPIC 09/26/19 20:00 10/26/19 19:59 09/28/19 20:22 Clobetasol Propionate (Temovate) 1 applic EVERY 12 HOURS TOPIC 09/16/19 21:00 10/14/19 20:59 09/29/19 09:30 Dextrose (Dextrose 50%) 25 ml Q30M PRN IV Hypoglycemia 09/16/19 18:45 10/14/19 14:44 Dextrose (Dextrose 50%) 50 ml Q30M PRN IV Hypoglycemia 09/16/19 18:45 10/14/19 14:44 Famotidine (Pepcid) 20 mg BID GT 09/18/19 18:00 10/18/19 17:59 09/29/19 08:49 Fenofibrate (Tricor) 145 mg DAILY ORAL 09/17/19 09:00 10/15/19 08:59 09/29/19 08:49 Heparin Sodium/ Dextrose 500 ml @ 38.102 mls/ hr ADJUST PER PROTOCOL IV 09/28/19 23:45 10/28/19 23:44 09/29/19 07:47 Insulin Aspart (NovoLOG) EVERY 6 HOURS SUBQ 09/20/19 12:00 10/14/19 16:29 09/29/19 12:31 Iohexol (OMNIPAQUE-300 100ml) 100 ml ONCE PRN INJ Radiology Procedure 09/27/19 11:15 09/29/19 23:59 Levetiracetam (Keppra) 1,000 mg Q8H GT 09/19/19 02:00 10/19/19 01:59 09/29/19 09:29 Meropenem 1 gm/ Sodium Chloride 55 ml @ 110 mls/hr Q8HR IVPB 09/25/19 14:00 09/30/19 23:59 09/29/19 05:30 Ondansetron HCl (Zofran) 4 mg Q6H PRN IVP Nausea & Vomiting 09/16/19 18:44 10/16/19 18:43 Polyethylene Glycol (Miralax) 17 gm DAILYPRN PRN GT Constipation 09/16/19 18:44 10/16/19 18:43 Sitagliptin Phosphate (Januvia) 50 mg ACBREAKFAST GT 09/17/19 06:30 10/15/19 06:29 09/29/19 05:30 Sodium Chloride 1,000 ml @ 125 mls/hr Q8H IV 09/25/19 01:45 10/25/19 01:44 09/29/19 07:48 Tamsulosin HCl (Flomax) 0.4 mg DAILY ORAL 09/17/19 09:00 10/17/19 08:59 09/29/19 08:50 Laboratory Tests 09/28/19 16:30: Activated Partial Thromboplast Time 32 09/28/19 23:05: Activated Partial Thromboplast Time 55H 09/29/19 06:40: Activated Partial Thromboplast Time 66H, White Blood Count 10.3, Red Blood Count 2.67L, Hemoglobin 7.6L, Hematocrit 23.8L, Mean Corpuscular Volume 89, Mean Corpuscular Hemoglobin 28.5, Mean Corpuscular Hemoglobin Concent 31.9L, Red Cell Distribution Width 15.3H, Platelet Count 265, Mean Platelet Volume 7.6 , Neutrophils (%) (Auto) , Lymphocytes (%) (Auto) , Monocytes (%) (Auto) , Eosinophils (%) (Auto) , Basophils (%) (Auto) , Differential Total Cells Counted 100, Neutrophils % (Manual) 69, Lymphocytes % (Manual) 13L, Monocytes % (Manual) 8, Eosinophils % (Manual) 8H, Basophils % (Manual) 0, Myelocytes % 2H, Band Neutrophils 0, Platelet Estimate Adequate, Platelet Morphology Normal, Hypochromasia 1+, Anisocytosis 1+, Sodium Level 137, Potassium Level 3.4L, Chloride Level 103, Carbon Dioxide Level 26, Anion Gap 8, Blood Urea Nitrogen 9 , Creatinine 1.1, Estimat Glomerular Filtration Rate > 60, Glucose Level 164H, Calcium Level 9.5, Phosphorus Level 3.1, Magnesium Level 1.7L, Total Bilirubin 0.3, Aspartate Amino Transf (AST/SGOT) 20, Alanine Aminotransferase (ALT/SGPT) 22, Alkaline Phosphatase 100, Total Protein 6.4, Albumin 1.8L, Globulin 4.6, Albumin/Globulin Ratio 0.4L Height (Feet): 5 Height (Inches): 7.00 Weight (Pounds): 209 Objective exam stable kendrick indwelling, yellow/hermelindo urine, some debris CT C/A/P (09/28) noted Manohar Villarreal MD Sep 29, 2019 13:17
--- NOTE | 2019-09-29 13:44 | Infectious Diseases Prog Note ---
Assessment/Plan Assessment/Plan Assessment: Sepsis, recurrent- MDR K.pna bacteremia- ?from lateral abdominal wall abscess Probable cystitis/pyelonephritis -09/28 CT c/ab/p: Left lower lobe segmental and subsegmental pulmonary emboli . Bibasilar atelectasis/consolidations. 10 mm low-density lesion in right thyroid. Heterogeneous large areas of hypoattenuation in the right lobe of the liver, maybe fatty changes, correlate for hepatitis or other process. Contracted gallbladder with thickened enhancing wall. Left lateral abdominal wall musculature 1.5 x 2.2 cm fluid collection with enhancing worrisome for an abscess. Bilateral renal stones, staghorn type in the left kidney, nonobstructive. Mild fullness of the right renal pelvis. Mild bilateral perinephric stranding, correlate for infection.Kendrick catheter in urinary bladder. Thickening of the urinary bladder with mild stranding may be cystitis. A few small calcifications in the left urinary bladder base. -09/27 Bcx 11/25 GNR -09/25 Cdiff neg CXR: Left pleural effusion is unchanged. Left perihilar atelectasis is unchanged. Tracheostomy again demonstrated. Bcx 01/23 MDR K. pna (S only to tigecycline, bactrim; R Meropenem, Amikacin) u/a wbc 15-20, nit neg, leuk +2; ucx C. parapsilopsis Fever, recurrent; improving Leukocytosis, recurrent; SP Pulmonary Emboli UTI, sp rx Probable PNA,sp Rx -Bcx Neg -u/a wbc tnct, nit neg, leuk +3; ucx C. parasilopsis -sp cx ESBL P. mirabilis, MDR P. stuarti (S Cefepime, Zosyn, Ertapenem) -CXR: Geographic density overlying the right upper lung. This likely represents overlying soft tissue although cannot exclude an underlying consolidation/pneumonia. Pulmonary vascular congestion. Small left pleural effusion. Subsegmental atelectasis versus infiltrate in the left lung base. -Influenza A/B ag neg DIVYA, SP Mild AST elevation, SP -Abd uS: Hepatomegaly with fatty infiltration. Suspected nonobstructive stone left kidney. Left renal cyst Sacral decubitus hx of recurrent UTIs -UCx 11/17/18 P.a. (R Levo, otherwise S) - CT abd 11/19/18 3 mm distal right ureteral calculus, minimal resultant hydronephrosis. Atrophic left kidney, containing a large staghorn calculus and multiple intrarenal calyceal calculi, previously described UCx 11/23/18 - Enterobacter (S Cefepime) and yeast and Pa HTN CKD ICH s/p craniotomy and [employer] shunt now w/ persistent vegetative state dysphagia s/p GT Chronic resp failure - vent/trach dependent ICH COPD DM Seizure disorder BPH Dysphagia, G tube Colostomy SN[facility] resident Plan: -D/c Meropenem #5 and IV Amikacin #3 -Start IV Polymixin B and IV Bactrim for MDR K.pna bacteremia -Start PO fluconazole for likely jesús cystitis/pyelo (+staghorn calculus, chronic kendrick, prolonged antibiotic treatment) -09/27 SP IV Vancomycin #3 -09/23 SP ertapenem #4 - 09/19/10 S/P Meropenem - 09/17 SP IV Vancomycin #4 - 09/14 SP Cefepime x1 -f/u cx -Monitor CBC/CMP, temperatures -PEG/Trach care -aspiration precautions -wound care -repaet Bcx 2 -CT guided drainage abd wall abscess -send fluid for cultures Thank you for this consultation. Will continue to follow along with you. Discussed with RN Subjective Allergies: Coded Allergies: AZTREONAM (Verified Allergy, Unknown, 05/13/18) Subjective afebrile in 24hrs' leukocytosis resolved Bcx w/ MDR K.pna; repeat bcx still bacteremic Objective Vital Signs Last 24 Hour Vital Signs Date Time Temp Pulse Resp B/P (MAP) Pulse Ox O2 Delivery O2 Flow Rate FiO2 09/29/19 12:45 96 14 30 09/29/19 11:02 97 15 30 09/29/19 08:55 98 14 30 09/29/19 08:00 97.2 97 16 134/73 (93) 100 09/29/19 08:00 30 09/29/19 08:00 Mechanical Ventilator 09/29/19 08:00 97 09/29/19 07:01 96 14 30 09/29/19 04:49 97 15 30 09/29/19 04:00 89 09/29/19 04:00 30 09/29/19 04:00 96.7 88 15 136/82 (100) 100 09/29/19 04:00 Mechanical Ventilator 09/29/19 02:32 98 14 30 09/29/19 00:44 96 14 30 09/29/19 00:00 30 09/29/19 00:00 Mechanical Ventilator 09/29/19 00:00 97.5 94 15 129/76 (93) 100 09/29/19 00:00 91 09/28/19 22:42 94 14 30 09/28/19 21:14 99 16 30 09/28/19 21:06 97.8 09/28/19 20:00 95 09/28/19 20:00 Mechanical Ventilator 09/28/19 20:00 30 09/28/19 20:00 97.8 98 16 130/79 (96) 100 09/28/19 19:03 95 15 30 09/28/19 17:10 101 14 30 09/28/19 16:00 97.7 101 16 139/81 (100) 100 09/28/19 16:00 30 09/28/19 16:00 Mechanical Ventilator 09/28/19 16:00 99 09/28/19 15:08 105 14 30 Height (Feet): 5 Height (Inches): 7.00 Weight (Pounds): 209 Objective GENERAL: Noncommunicative. Tongue fasciculation. Moderate edema. LUNGS: Diminished breath sounds. CARDIAC: Regular rhythm. Rapid rate. Normal S1, S2. ABDOMEN: Soft with G-tube and colostomy bag. Microbiology Date/Time Source Procedure Growth Status 09/27/19 17:25 Blood Blood Culture - Preliminary Resulted 09/27/19 17:15 Blood Blood Culture - Preliminary Resulted Laboratory Tests Test 09/28/19 16:30 09/28/19 23:05 09/29/19 06:40 Activated Partial Thromboplast Time 32 SEC (23-33) 55 SEC (23-33) H 66 SEC (23-33) H White Blood Count 10.3 K/UL (4.8-10.8) Red Blood Count 2.67 M/UL (4.70-6.10) L Hemoglobin 7.6 G/DL (14.2-18.0) L Hematocrit 23.8 % (42.0-52.0) L Mean Corpuscular Volume 89 FL (80-99) Mean Corpuscular Hemoglobin 28.5 PG (27.0-31.0) Mean Corpuscular Hemoglobin Concent 31.9 G/DL (32.0-36.0) L Red Cell Distribution Width 15.3 % (11.6-14.8) H Platelet Count 265 K/UL (150-450) Mean Platelet Volume 7.6 FL (6.5-10.1) Neutrophils (%) (Auto) % (45.0-75.0) Lymphocytes (%) (Auto) % (20.0-45.0) Monocytes (%) (Auto) % (1.0-10.0) Eosinophils (%) (Auto) % (0.0-3.0) Basophils (%) (Auto) % (0.0-2.0) Differential Total Cells Counted 100 Neutrophils % (Manual) 69 % (45-75) Lymphocytes % (Manual) 13 % (20-45) L Monocytes % (Manual) 8 % (1-10) Eosinophils % (Manual) 8 % (0-3) H Basophils % (Manual) 0 % (0-2) Myelocytes % 2 % (0-0) H Band Neutrophils 0 % (0-8) Platelet Estimate Adequate Platelet Morphology Normal Hypochromasia 1+ Anisocytosis 1+ Sodium Level 137 MMOL/L (136-145) Potassium Level 3.4 MMOL/L (3.5-5.1) L Chloride Level 103 MMOL/L (98-107) Carbon Dioxide Level 26 MMOL/L (21-32) Anion Gap 8 mmol/L (5-15) Blood Urea Nitrogen 9 mg/dL (7-18) Creatinine 1.1 MG/DL (0.55-1.30) Estimat Glomerular Filtration Rate > 60 mL/min (>60) Glucose Level 164 MG/DL (74-106) H Calcium Level 9.5 MG/DL (8.5-10.1) Phosphorus Level 3.1 MG/DL (2.5-4.9) Magnesium Level 1.7 MG/DL (1.8-2.4) L Total Bilirubin 0.3 MG/DL (0.2-1.0) Aspartate Amino Transf (AST/SGOT) 20 U/L (15-37) Alanine Aminotransferase (ALT/SGPT) 22 U/L (12-78) Alkaline Phosphatase 100 U/L (46-116) Total Protein 6.4 G/DL (6.4-8.2) Albumin 1.8 G/DL (3.4-5.0) L Globulin 4.6 g/dL Albumin/Globulin Ratio 0.4 (1.0-2.7) L Current Medications Medications (Trade) Dose Ordered Sig/Va Route PRN Reason Start Time Stop Time Status Last Admin Dose Admin Acetaminophen (Tylenol) 650 mg Q4H PRN GT Mild Pain/Temp > 100.6 09/16/19 18:42 10/16/19 18:41 09/28/19 20:36 Amikacin Protocol (Amikacin pharmacy to dose) 1 ea DAILY PRN MISC Per rx protocol 09/27/19 11:30 10/27/19 11:29 Amikacin Sulfate 1000 mg/Sodium Chloride 114 ml @ 114 mls/hr Q36H IV 09/28/19 20:00 10/05/19 19:59 09/28/19 20:23 Artificial Tears (Akwa-Tears) 2 drop Q12HR BOTH EYES 09/16/19 21:00 10/14/19 20:59 09/29/19 09:29 Baclofen (Lioresal) 10 mg THREE TIMES A DAY GT 09/17/19 09:00 10/14/19 17:59 09/29/19 08:49 Calcitonin Universal (Miacalcin) 1 sprays DAILY NASAL 09/18/19 12:00 10/18/19 11:59 09/29/19 09:30 Chlorhexidine Gluconate (Rebecca-Hex 2%) 1 applic DAILY@2000 TOPIC 09/26/19 20:00 10/26/19 19:59 09/28/19 20:22 Clobetasol Propionate (Temovate) 1 applic EVERY 12 HOURS TOPIC 09/16/19 21:00 10/14/19 20:59 09/29/19 09:30 Dextrose (Dextrose 50%) 25 ml Q30M PRN IV Hypoglycemia 09/16/19 18:45 10/14/19 14:44 Dextrose (Dextrose 50%) 50 ml Q30M PRN IV Hypoglycemia 09/16/19 18:45 10/14/19 14:44 Famotidine (Pepcid) 20 mg BID GT 09/18/19 18:00 10/18/19 17:59 09/29/19 08:49 Fenofibrate (Tricor) 145 mg DAILY ORAL 09/17/19 09:00 10/15/19 08:59 09/29/19 08:49 Heparin Sodium/ Dextrose 500 ml @ 38.102 mls/ hr ADJUST PER PROTOCOL IV 09/28/19 23:45 10/28/19 23:44 09/29/19 07:47 Insulin Aspart (NovoLOG) EVERY 6 HOURS SUBQ 09/20/19 12:00 10/14/19 16:29 09/29/19 12:31 Iohexol (OMNIPAQUE-300 100ml) 100 ml ONCE PRN INJ Radiology Procedure 09/27/19 11:15 09/29/19 23:59 Levetiracetam (Keppra) 1,000 mg Q8H GT 09/19/19 02:00 10/19/19 01:59 09/29/19 09:29 Meropenem 1 gm/ Sodium Chloride 55 ml @ 110 mls/hr Q8HR IVPB 09/25/19 14:00 09/30/19 23:59 09/29/19 05:30 Ondansetron HCl (Zofran) 4 mg Q6H PRN IVP Nausea & Vomiting 09/16/19 18:44 10/16/19 18:43 Polyethylene Glycol (Miralax) 17 gm DAILYPRN PRN GT Constipation 09/16/19 18:44 10/16/19 18:43 Sitagliptin Phosphate (Januvia) 50 mg ACBREAKFAST GT 09/17/19 06:30 10/15/19 06:29 09/29/19 05:30 Sodium Chloride 1,000 ml @ 125 mls/hr Q8H IV 09/25/19 01:45 10/25/19 01:44 09/29/19 07:48 Tamsulosin HCl (Flomax) 0.4 mg DAILY ORAL 09/17/19 09:00 10/17/19 08:59 09/29/19 08:50 Maribel Barrera M.D. Sep 29, 2019 13:44
[2019-09-29] MEDS: Fluconazole 100mg tab ORAL SCH (14:28)
[2019-09-29 16:00] VITALS: BP 145/78
[2019-09-29] MEDS: Bactrim 20ml in D5W 550ml IV SCH (18:17)
[2019-09-29 20:00] VITALS: BP 132/73
[2019-09-29] MEDS: Dyna-Hex 2% Top Sol 2oz TOPIC SCH (20:11)
[2019-09-29] MEDS: Polymyxin B Sulfate 500,000 units in D5W 550ml IV SCH (20:26)
[2019-09-30] VITALS: BP 141/76
[2019-09-30] MEDS: Bactrim 20ml in D5W 550ml IV SCH ×4 (00:57→23:10)
[2019-09-30] MEDS: NovoLOG Insulin Flexpen SUBQ SCH ×5 (00:58→23:09)
--- NOTE | 2019-09-30 02:00 | Progress Note ---
DATE: 09/29/2019 CARDIOLOGY PROGRESS NOTE SUBJECTIVE: The patient remains on ventilator support, another dose of Aredia was administered today for hypercalcemia. The patient remains with episodes of sinus tachycardia. OBJECTIVE: VITAL SIGNS: Blood pressure 134/72, pulse 97, respirations 16, afebrile. NECK: Thin trach secretions. LUNGS: Bilateral breath sounds. CARDIAC: Regular rhythm. Rapid rate. Normal S1, S2. ABDOMEN: Soft. G-tube and colostomy site noted with no dehiscence. EXTREMITIES: With trace dependent edema. LABORATORY DATA: White count 10, hemoglobin 7.6. Potassium 3.4, magnesium 1.7. IMPRESSION: 1. Sepsis. 2. Acute pulmonary embolism. 3. Respiratory failure. 4. Sinus tachycardia. 5. Anemia due to chronic disease and chronic kidney disease. 6. Hypomagnesemia and hypokalemia. PLAN: 1. Maintain adequate hydration. 2. No role for antiarrhythmics at this time. 3. IV magnesium and oral potassium replacement. Kali Melgar M.D. DR: DENNIS JOB#: [id number] CC:
[2019-09-30] MEDS: levETIRAcetam 500mg/5ml Liquid GT SCH ×3 (02:49→17:46)
[2019-09-30 04:00] VITALS: BP 144/76
[2019-09-30] MEDS: sitaGLIPtin 50mg tab GT SCH (05:36)
[2019-09-30 05:48] LABS: INR 1.1 (0.9-1.1)
[2019-09-30 05:51] LABS: BASOPHILS % (AUTO) 0.8 % (0.0-2.0); EOSINOPHILS % (AUTO) 8.8 % (0.0-3.0); HEMOGLOBIN 8.4 G/DL (14.2-18.0); LYMPHOCYTES % (AUTO) 12.1 % (20.0-45.0); MEAN CORPUSCULAR VOLUME 86 FL (80-99); MONOCYTES % (AUTO) 5.2 % (1.0-10.0); NEUTROPHILS % (AUTO) 73.1 % (45.0-75.0); PLATELET COUNT 245 K/UL (150-450); RED BLOOD COUNT 3.01 M/UL (4.70-6.10); RED CELL DISTRIBUTION WIDTH 16.8 % (11.6-14.8); WHITE BLOOD COUNT 11.2 K/UL (4.8-10.8)
[2019-09-30 05:59] LABS: ANION GAP 10 mmol/L (5-15); BLOOD UREA NITROGEN 8 mg/dL (7-18); CALCIUM 9.3 MG/DL (8.5-10.1); CARBON DIOXIDE 24 MMOL/L (21-32); CHLORIDE 98 MMOL/L (98-107); POTASSIUM 3.8 MMOL/L (3.5-5.1); SODIUM 132 MMOL/L (136-145)
[2019-09-30 08:00] VITALS: BP 137/77
[2019-09-30] MEDS: Fluconazole 100mg tab ORAL SCH (08:41)
[2019-09-30] MEDS: Tamsulosin 0.4mg cap ORAL SCH (08:41)
[2019-09-30] MEDS: Polymyxin B Sulfate 500,000 units in D5W 550ml IV SCH (08:42)
[2019-09-30] MEDS: Clobetasol Cream 0.05% 15gm TOPIC SCH ×2 (08:47→20:29)
--- NOTE | 2019-09-30 09:45 | Urology Progress Note ---
Assessment/Plan Status: stable Assessment/Plan: 1. Urinary retention. 2. BPH. 3. Neurogenic bladder. 4. Incontinence. 5. Pyuria/UTI/colonized. 6. Hematuria. 7. Proteinuria. 8. Renal insufficiency, acute possibly on chronic. 9. Renal cyst. 10. Nephrolithiasis. 11. Renal fullness. 12. Bladder calcifications. 13. POD # 13, cysto/optic urethrotomy. monitor clinically kendrick placed 09/17 hand irrigated and do PRN abx as ordered, pr ID diflucan added monitor WBC f/u on last blood cx renal fxn stable Subjective Allergies: Coded Allergies: AZTREONAM (Verified Allergy, Unknown, 05/13/18) Subjective all noted, kendrick draining, non-verbal Objective Last 24 Hour Vital Signs Date Time Temp Pulse Resp B/P (MAP) Pulse Ox O2 Delivery O2 Flow Rate FiO2 09/30/19 08:05 107 09/30/19 08:00 30 09/30/19 08:00 99.6 107 15 137/77 (97) 100 09/30/19 07:05 106 14 30 09/30/19 05:30 101 14 30 09/30/19 04:00 30 09/30/19 04:00 Mechanical Ventilator 09/30/19 04:00 99.5 104 14 144/76 (98) 100 09/30/19 03:37 107 09/30/19 03:06 106 17 30 09/30/19 01:46 103 16 30 09/30/19 00:00 Mechanical Ventilator 09/30/19 00:00 97.7 103 18 141/76 (97) 100 09/30/19 00:00 30 09/29/19 23:33 108 09/29/19 23:02 106 16 30 09/29/19 21:16 101 16 30 09/29/19 20:00 Mechanical Ventilator 09/29/19 20:00 30 09/29/19 20:00 103 09/29/19 20:00 99.1 101 18 132/73 (92) 98 09/29/19 19:39 104 17 30 09/29/19 19:39 100 18 96 Mechanical Ventilator 30 09/29/19 16:20 100 14 30 09/29/19 16:00 97.7 100 17 145/78 (100) 100 09/29/19 16:00 30 09/29/19 16:00 95 09/29/19 16:00 Mechanical Ventilator 09/29/19 15:17 97 15 30 09/29/19 12:45 96 14 30 09/29/19 12:00 Mechanical Ventilator 09/29/19 12:00 30 09/29/19 12:00 97.5 101 15 140/74 (96) 100 09/29/19 12:00 99 09/29/19 11:02 97 15 30 Intake and Output 09/29/19 09/30/19 18:59 06:59 Intake Total 1837.224 ml 4067.102 ml Output Total 2135 ml 2950 ml Balance -297.776 ml 1117.102 ml Free Water 300 ml 300 ml IV Total 457.224 ml 3192.102 ml Tube Feeding 780 ml 325 ml Blood Product 250 ml Other 300 ml Output Urine Total 2000 ml 2800 ml Stool Total 135 ml 150 ml Microbiology Date/Time Source Procedure Growth Status 09/27/19 17:25 Blood Blood Culture - Preliminary Gram Negative Bacillus 1 Resulted 09/15/19 11:00 Nasal Nares - Final Complete 09/15/19 11:00 Nasal Nares - Final Complete 09/25/19 19:00 Stool Clostridium difficile Toxin Assay - Final Complete 09/25/19 19:00 Urine,Clean Catch Urine Culture - Final Camelia Parapsilosis Complete 09/14/19 09:10 Rectum VRE Culture - Final Enterococcus Faecium - Vre Complete Current Medications Medications (Trade) Dose Ordered Sig/Va Route PRN Reason Start Time Stop Time Status Last Admin Dose Admin Acetaminophen (Tylenol) 650 mg Q4H PRN GT Mild Pain/Temp > 100.6 09/16/19 18:42 10/16/19 18:41 09/28/19 20:36 Artificial Tears (Akwa-Tears) 2 drop Q12HR BOTH EYES 09/16/19 21:00 10/14/19 20:59 09/30/19 08:43 Baclofen (Lioresal) 10 mg THREE TIMES A DAY GT 09/17/19 09:00 10/14/19 17:59 09/30/19 08:41 Calcitonin [place] (Miacalcin) 1 sprays DAILY NASAL 09/18/19 12:00 10/18/19 11:59 09/30/19 08:42 Chlorhexidine Gluconate (Rebecca-Hex 2%) 1 applic DAILY@1999 TOPIC 09/26/19 20:00 10/26/19 19:59 09/29/19 20:11 Clobetasol Propionate (Temovate) 1 applic EVERY 12 HOURS TOPIC 09/16/19 21:00 10/14/19 20:59 09/30/19 08:47 Dextrose (Dextrose 50%) 25 ml Q30M PRN IV Hypoglycemia 09/16/19 18:45 10/14/19 14:44 Dextrose (Dextrose 50%) 50 ml Q30M PRN IV Hypoglycemia 09/16/19 18:45 10/14/19 14:44 Famotidine (Pepcid) 20 mg BID GT 09/18/19 18:00 10/18/19 17:59 09/30/19 08:41 Fenofibrate (Tricor) 145 mg DAILY ORAL 09/17/19 09:00 10/15/19 08:59 09/30/19 08:41 Fluconazole (Diflucan) 400 mg DAILY ORAL 09/29/19 13:47 10/06/19 13:46 09/30/19 08:41 Insulin Aspart (NovoLOG) EVERY 6 HOURS SUBQ 09/20/19 12:00 10/14/19 16:29 09/30/19 00:58 Levetiracetam (Keppra) 1,000 mg Q8H GT 09/19/19 02:00 10/19/19 01:59 09/30/19 02:49 Ondansetron HCl (Zofran) 4 mg Q6H PRN IVP Nausea & Vomiting 09/16/19 18:44 10/16/19 18:43 Polyethylene Glycol (Miralax) 17 gm DAILYPRN PRN GT Constipation 09/16/19 18:44 10/16/19 18:43 Polymyxin B Sulfate 240455 units/Dextrose 550 ml @ 550 mls/hr EVERY 12 HOURS IV 09/29/19 21:00 10/06/19 20:59 09/30/19 08:42 Sitagliptin Phosphate (Januvia) 50 mg ACBREAKFAST GT 09/17/19 06:30 10/15/19 06:29 09/30/19 05:36 Sodium Chloride 1,000 ml @ 125 mls/hr Q8H IV 09/25/19 01:45 1/4/20 01:44 09/30/19 03:11 Tamsulosin HCl (Flomax) 0.4 mg DAILY ORAL 09/17/19 09:00 10/17/19 08:59 09/30/19 08:41 Trimethoprim/ Sulfamethoxazole 20 ml/Dextrose 570 ml @ 380 mls/hr S8DE-OR BACTRIM IV 09/29/19 16:00 10/06/19 15:59 09/30/19 08:40 Laboratory Tests 09/30/19 04:00: White Blood Count 11.2H, Red Blood Count 3.01L, Hemoglobin 8.4L, Hematocrit 26.0L, Mean Corpuscular Volume 86, Mean Corpuscular Hemoglobin 28.0, Mean Corpuscular Hemoglobin Concent 32.4, Red Cell Distribution Width 16.8H, Platelet Count 245, Mean Platelet Volume 7.7, Neutrophils (%) (Auto) 73.1, Lymphocytes (%) (Auto) 12.1L, Monocytes (%) (Auto) 5.2, Eosinophils (%) (Auto) 8.8H, Basophils (%) (Auto) 0.8, Prothrombin Time 11.4, Prothromb Time International Ratio 1.1, Activated Partial Thromboplast Time 33, Sodium Level 132L, Potassium Level 3.8, Chloride Level 98, Carbon Dioxide Level 24, Anion Gap 10, Blood Urea Nitrogen 8, Creatinine 1.0, Estimat Glomerular Filtration Rate > 60, Glucose Level 156H, Calcium Level 9.3 Height (Feet): 5 Height (Inches): 7.00 Weight (Pounds): 209 Objective exam stable kendrick indwelling, yellow/hermelindo urine, some debris CT C/A/P (09/28) noted Manohar Villarreal MD Sep 30, 2019 09:45
--- NOTE | 2019-09-30 10:41 | Nephrology Progress Note ---
Assessment/Plan Problem List: (1) Renal failure (ARF), acute on chronic (2) Urinary retention (3) Acute on chronic respiratory failure (4) Hypercalcemia Assessment Hypercalcemia Urinary retention, BPH , Acute on chronic renal failure Electrolyte imbalance Colostomy DM PEG Vegetative state Acute on chronic respiratory failure Plan consider transfusion: defered tp PMD Free water- K and Phos and Mag supplements as needed pulm support Aredia for high Ca on 09/18 redose today 09/23 Subjective ROS Limited/Unobtainable: Yes Objective Objective Last 24 Hour Vital Signs Date Time Temp Pulse Resp B/P (MAP) Pulse Ox O2 Delivery O2 Flow Rate FiO2 09/30/19 08:50 108 15 30 09/30/19 08:05 107 09/30/19 08:00 30 09/30/19 08:00 99.6 107 15 137/77 (97) 100 09/30/19 07:05 106 14 30 09/30/19 05:30 101 14 30 09/30/19 04:00 30 09/30/19 04:00 Mechanical Ventilator 09/30/19 04:00 99.5 104 14 144/76 (98) 100 09/30/19 03:37 107 09/30/19 03:06 106 17 30 09/30/19 01:46 103 16 30 09/30/19 00:00 Mechanical Ventilator 09/30/19 00:00 97.7 103 18 141/76 (97) 100 09/30/19 00:00 30 09/29/19 23:33 108 09/29/19 23:02 106 16 30 09/29/19 21:16 101 16 30 09/29/19 20:00 Mechanical Ventilator 09/29/19 20:00 30 09/29/19 20:00 103 09/29/19 20:00 99.1 101 18 132/73 (92) 98 09/29/19 19:39 104 17 30 09/29/19 19:39 100 18 96 Mechanical Ventilator 30 09/29/19 16:20 100 14 30 09/29/19 16:00 97.7 100 17 145/78 (100) 100 09/29/19 16:00 30 09/29/19 16:00 95 09/29/19 16:00 Mechanical Ventilator 09/29/19 15:17 97 15 30 09/29/19 12:45 96 14 30 09/29/19 12:00 Mechanical Ventilator 09/29/19 12:00 30 09/29/19 12:00 97.5 101 15 140/74 (96) 100 09/29/19 12:00 99 09/29/19 11:02 97 15 30 Intake and Output 09/29/19 09/30/19 18:59 06:59 Intake Total 1837.224 ml 4067.102 ml Output Total 2135 ml 2950 ml Balance -297.776 ml 1117.102 ml Free Water 300 ml 300 ml IV Total 457.224 ml 3192.102 ml Tube Feeding 780 ml 325 ml Blood Product 250 ml Other 300 ml Output Urine Total 2000 ml 2800 ml Stool Total 135 ml 150 ml Laboratory Tests 09/30/19 04:00: White Blood Count 11.2H, Red Blood Count 3.01L, Hemoglobin 8.4L, Hematocrit 26.0L, Mean Corpuscular Volume 86, Mean Corpuscular Hemoglobin 28.0, Mean Corpuscular Hemoglobin Concent 32.4, Red Cell Distribution Width 16.8H, Platelet Count 245, Mean Platelet Volume 7.7, Neutrophils (%) (Auto) 73.1, Lymphocytes (%) (Auto) 12.1L, Monocytes (%) (Auto) 5.2, Eosinophils (%) (Auto) 8.8H, Basophils (%) (Auto) 0.8, Prothrombin Time 11.4, Prothromb Time International Ratio 1.1, Activated Partial Thromboplast Time 33, Sodium Level 132L, Potassium Level 3.8, Chloride Level 98, Carbon Dioxide Level 24, Anion Gap 10, Blood Urea Nitrogen 8, Creatinine 1.0, Estimat Glomerular Filtration Rate > 60, Glucose Level 156H, Calcium Level 9.3 Height (Feet): 5 Height (Inches): 7.00 Weight (Pounds): 209 Cardiovascular: normal rate Respiratory/Chest: lungs clear Abdomen: soft Objective no change Cl Zaragoza MD Sep 30, 2019 10:41
--- NOTE | 2019-09-30 10:59 | Pulmonolgy Critical Care Note ---
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 (7) ATN (acute tubular necrosis) (8) Pulmonary embolism Respiratory: monitor respiratory rate, adjust FIO2, CXR Cardiac: continue to monitor HR/BP Renal: F/U I&O, keep IV fluid Infectious Disease: check cultures Gastrointestinal: continue feedings/current rate, abdominal imaging Endocrine: monitor blood sugar Hematologic: monitor H/H, transfuse if hgb<8.5 Neurologic: PRN Ativan, keep patient comfortable Affect: PRN ativan Prophylaxis: Protonix Disposition: keep in ICU Notes Reviewed: accounting officer, cardio Discussed with: nurses, consultants, human services case managerhousing property manager - Objective Last 24 Hour Vital Signs Date Time Temp Pulse Resp B/P (MAP) Pulse Ox O2 Delivery O2 Flow Rate FiO2 09/30/19 08:50 108 15 30 09/30/19 08:05 107 09/30/19 08:00 30 09/30/19 08:00 99.6 107 15 137/77 (97) 100 09/30/19 07:05 106 14 30 09/30/19 05:30 101 14 30 09/30/19 04:00 30 09/30/19 04:00 Mechanical Ventilator 09/30/19 04:00 99.5 104 14 144/76 (98) 100 09/30/19 03:37 107 09/30/19 03:06 106 17 30 09/30/19 01:46 103 16 30 09/30/19 00:00 Mechanical Ventilator 09/30/19 00:00 97.7 103 18 141/76 (97) 100 09/30/19 00:00 30 09/29/19 23:33 108 09/29/19 23:02 106 16 30 09/29/19 21:16 101 16 30 09/29/19 20:00 Mechanical Ventilator 09/29/19 20:00 30 09/29/19 20:00 103 09/29/19 20:00 99.1 101 18 132/73 (92) 98 09/29/19 19:39 104 17 30 09/29/19 19:39 100 18 96 Mechanical Ventilator 30 09/29/19 16:20 100 14 30 09/29/19 16:00 97.7 100 17 145/78 (100) 100 09/29/19 16:00 30 09/29/19 16:00 95 09/29/19 16:00 Mechanical Ventilator 09/29/19 15:17 97 15 30 09/29/19 12:45 96 14 30 09/29/19 12:00 Mechanical Ventilator 09/29/19 12:00 30 09/29/19 12:00 97.5 101 15 140/74 (96) 100 09/29/19 12:00 99 09/29/19 11:02 97 15 30 Status: somnolent Condition: critical HEENT: atraumatic Lungs: clear Heart: HR/BP stable, HR/BP unstable Abdomen: soft, non-tender Extremities: no C/C/E, edema Micro: Microbiology Date/Time Source Procedure Growth Status 09/27/19 17:25 Blood Blood Culture - Preliminary Gram Negative Bacillus 1 Resulted 09/27/19 17:15 Blood Blood Culture - Preliminary Gram Negative Bacillus 1 Resulted Accucheck: 141 Critical Care - Subjective ROS Limited/Unobtainable: Yes Condition: critical EKG Rhythm: Sinus Rhythm FI02: 30 Vent Support Breath Rate: 14 Vent Support Mode: AC Vent Tidal Volume: 600 Sputum Amount: Small PEEP: 5.0 PIP: 29 Tube Feeding Amount: 65 I&O: Intake and Output 09/29/19 09/30/19 18:59 06:59 Intake Total 1837.224 ml 4067.102 ml Output Total 2135 ml 2950 ml Balance -297.776 ml 1117.102 ml Free Water 300 ml 300 ml IV Total 457.224 ml 3192.102 ml Tube Feeding 780 ml 325 ml Blood Product 250 ml Other 300 ml Output Urine Total 2000 ml 2800 ml Stool Total 135 ml 150 ml Labs: Laboratory Tests Test 09/30/19 04:00 White Blood Count 11.2 K/UL (4.8-10.8) H Red Blood Count 3.01 M/UL (4.70-6.10) L Hemoglobin 8.4 G/DL (14.2-18.0) L Hematocrit 26.0 % (42.0-52.0) L Mean Corpuscular Volume 86 FL (80-99) Mean Corpuscular Hemoglobin 28.0 PG (27.0-31.0) Mean Corpuscular Hemoglobin Concent 32.4 G/DL (32.0-36.0) Red Cell Distribution Width 16.8 % (11.6-14.8) H Platelet Count 245 K/UL (150-450) Mean Platelet Volume 7.7 FL (6.5-10.1) Neutrophils (%) (Auto) 73.1 % (45.0-75.0) Lymphocytes (%) (Auto) 12.1 % (20.0-45.0) L Monocytes (%) (Auto) 5.2 % (1.0-10.0) Eosinophils (%) (Auto) 8.8 % (0.0-3.0) H Basophils (%) (Auto) 0.8 % (0.0-2.0) Prothrombin Time 11.4 SEC (9.30-11.50) Prothromb Time International Ratio 1.1 (0.9-1.1) Activated Partial Thromboplast Time 33 SEC (23-33) Sodium Level 132 MMOL/L (136-145) L Potassium Level 3.8 MMOL/L (3.5-5.1) Chloride Level 98 MMOL/L (98-107) Carbon Dioxide Level 24 MMOL/L (21-32) Anion Gap 10 mmol/L (5-15) Blood Urea Nitrogen 8 mg/dL (7-18) Creatinine 1.0 MG/DL (0.55-1.30) Estimat Glomerular Filtration Rate > 60 mL/min (>60) Glucose Level 156 MG/DL (74-106) H Calcium Level 9.3 MG/DL (8.5-10.1) Nico Goetz MD Sep 30, 2019 10:58
[2019-09-30 12:00] VITALS: BP 141/77
[2019-09-30] MEDS ORDERED: Lidocaine 1% Plain 30 ml INJ PRN (15:24)
--- NOTE | 2019-09-30 15:52 | Infectious Diseases Prog Note ---
Assessment/Plan Assessment/Plan Assessment: Sepsis, recurrent- MDR K.pna bacteremia- ?from lateral abdominal wall abscess Probable cystitis/pyelonephritis -09/28 CT c/ab/p: Left lower lobe segmental and subsegmental pulmonary emboli . Bibasilar atelectasis/consolidations. 10 mm low-density lesion in right thyroid. Heterogeneous large areas of hypoattenuation in the right lobe of the liver, maybe fatty changes, correlate for hepatitis or other process. Contracted gallbladder with thickened enhancing wall. Left lateral abdominal wall musculature 1.5 x 2.2 cm fluid collection with enhancing worrisome for an abscess. Bilateral renal stones, staghorn type in the left kidney, nonobstructive. Mild fullness of the right renal pelvis. Mild bilateral perinephric stranding, correlate for infection.Kendrick catheter in urinary bladder. Thickening of the urinary bladder with mild stranding may be cystitis. A few small calcifications in the left urinary bladder base. -09/27 Bcx 2/4 GNR; 09/29 Bx p -09/25 Cdiff neg CXR: Left pleural effusion is unchanged. Left perihilar atelectasis is unchanged. Tracheostomy again demonstrated. Bcx 01/23 MDR K. pna (S only to tigecycline, bactrim; R Meropenem, Amikacin, Colistin, Polymixin B) u/a wbc 15-20, nit neg, leuk +2; ucx C. parapsilopsis Fever, recurrent; improving Leukocytosis, recurrent; SP Pulmonary Emboli UTI, sp rx Probable PNA,sp Rx -Bcx Neg -u/a wbc tnct, nit neg, leuk +3; ucx C. parasilopsis -sp cx ESBL P. mirabilis, MDR P. stuarti (S Cefepime, Zosyn, Ertapenem) -CXR: Geographic density overlying the right upper lung. This likely represents overlying soft tissue although cannot exclude an underlying consolidation/pneumonia. Pulmonary vascular congestion. Small left pleural effusion. Subsegmental atelectasis versus infiltrate in the left lung base. -Influenza A/B ag neg DIVYA, SP Mild AST elevation, SP -Abd uS: Hepatomegaly with fatty infiltration. Suspected nonobstructive stone left kidney. Left renal cyst Sacral decubitus hx of recurrent UTIs -UCx 11/17/18 P.a. (R Levo, otherwise S) - CT abd 11/19/18 3 mm distal right ureteral calculus, minimal resultant hydronephrosis. Atrophic left kidney, containing a large staghorn calculus and multiple intrarenal calyceal calculi, previously described UCx 11/23/18 - Enterobacter (S Cefepime) and yeast and Pa HTN CKD ICH s/p craniotomy and SNOW BLOWER shunt now w/ persistent vegetative state dysphagia s/p GT Chronic resp failure - vent/trach dependent ICH COPD DM Seizure disorder BPH Dysphagia, G tube Colostomy SN[facility] resident Plan: -D/c IV Polymixin B #2 as reistant -Continue IV Bactrim #2 and add PO Miniocycline for MDR/CRE K.pna bacteremia -Cont PO fluconazole #2 for likely jesús cystitis/pyelo (+staghorn calculus, chronic kendrick, prolonged antibiotic treatment) -09/29 SP Meropenem #5, IV Amikacin #3 -09/27 SP IV Vancomycin #3 -09/23 SP ertapenem #4 - 09/19/10 S/P Meropenem - 09/17 SP IV Vancomycin #4 - 09/14 SP Cefepime x1 -f/u cx -Monitor CBC/CMP, temperatures -PEG/Trach care -aspiration precautions -wound care -f/u repeat Bcx 2 -CT guided drainage abd wall abscess -send fluid for cultures Thank you for this consultation. Will continue to follow along with you. Discussed with RN Subjective Allergies: Coded Allergies: AZTREONAM (Verified Allergy, Unknown, 05/13/18) Subjective afebrile in >36hrs' mild leukocytosis latest bcx p Objective Vital Signs Last 24 Hour Vital Signs Date Time Temp Pulse Resp B/P (MAP) Pulse Ox O2 Delivery O2 Flow Rate FiO2 09/30/19 15:24 101 15 30 09/30/19 13:10 107 14 30 09/30/19 12:00 Mechanical Ventilator 09/30/19 12:00 30 09/30/19 12:00 Mechanical Ventilator 09/30/19 12:00 99.5 105 15 141/77 (98) 100 09/30/19 11:33 110 09/30/19 11:19 111 16 30 09/30/19 08:50 108 15 30 09/30/19 08:05 107 09/30/19 08:00 30 09/30/19 08:00 Mechanical Ventilator 09/30/19 08:00 99.6 107 15 137/77 (97) 100 09/30/19 07:05 106 14 30 09/30/19 05:30 101 14 30 09/30/19 04:00 30 09/30/19 04:00 Mechanical Ventilator 09/30/19 04:00 99.5 104 14 144/76 (98) 100 09/30/19 03:37 107 09/30/19 03:06 106 17 30 09/30/19 01:46 103 16 30 09/30/19 00:00 Mechanical Ventilator 09/30/19 00:00 97.7 103 18 141/76 (97) 100 09/30/19 00:00 30 09/29/19 23:33 108 09/29/19 23:02 106 16 30 09/29/19 21:16 101 16 30 09/29/19 20:00 Mechanical Ventilator 09/29/19 20:00 30 09/29/19 20:00 103 09/29/19 20:00 99.1 101 18 132/73 (92) 98 09/29/19 19:39 104 17 30 09/29/19 19:39 100 18 96 Mechanical Ventilator 30 09/29/19 16:20 100 14 30 09/29/19 16:00 97.7 100 17 145/78 (100) 100 09/29/19 16:00 30 09/29/19 16:00 95 09/29/19 16:00 Mechanical Ventilator Height (Feet): 5 Height (Inches): 7.00 Weight (Pounds): 209 Objective GENERAL: Noncommunicative. Tongue fasciculation. Moderate edema. LUNGS: Diminished breath sounds. CARDIAC: Regular rhythm. Rapid rate. Normal S1, S2. ABDOMEN: Soft with G-tube and colostomy bag. Microbiology Date/Time Source Procedure Growth Status 09/27/19 17:25 Blood Blood Culture - Preliminary Gram Negative Bacillus 1 Resulted 09/27/19 17:15 Blood Blood Culture - Preliminary Gram Negative Bacillus 1 Resulted Laboratory Tests Test 09/30/19 04:00 White Blood Count 11.2 K/UL (4.8-10.8) H Red Blood Count 3.01 M/UL (4.70-6.10) L Hemoglobin 8.4 G/DL (14.2-18.0) L Hematocrit 26.0 % (42.0-52.0) L Mean Corpuscular Volume 86 FL (80-99) Mean Corpuscular Hemoglobin 28.0 PG (27.0-31.0) Mean Corpuscular Hemoglobin Concent 32.4 G/DL (32.0-36.0) Red Cell Distribution Width 16.8 % (11.6-14.8) H Platelet Count 245 K/UL (150-450) Mean Platelet Volume 7.7 FL (6.5-10.1) Neutrophils (%) (Auto) 73.1 % (45.0-75.0) Lymphocytes (%) (Auto) 12.1 % (20.0-45.0) L Monocytes (%) (Auto) 5.2 % (1.0-10.0) Eosinophils (%) (Auto) 8.8 % (0.0-3.0) H Basophils (%) (Auto) 0.8 % (0.0-2.0) Prothrombin Time 11.4 SEC (9.30-11.50) Prothromb Time International Ratio 1.1 (0.9-1.1) Activated Partial Thromboplast Time 33 SEC (23-33) Sodium Level 132 MMOL/L (136-145) L Potassium Level 3.8 MMOL/L (3.5-5.1) Chloride Level 98 MMOL/L (98-107) Carbon Dioxide Level 24 MMOL/L (21-32) Anion Gap 10 mmol/L (5-15) Blood Urea Nitrogen 8 mg/dL (7-18) Creatinine 1.0 MG/DL (0.55-1.30) Estimat Glomerular Filtration Rate > 60 mL/min (>60) Glucose Level 156 MG/DL (74-106) H Calcium Level 9.3 MG/DL (8.5-10.1) Current Medications Medications (Trade) Dose Ordered Sig/Va Route PRN Reason Start Time Stop Time Status Last Admin Dose Admin Acetaminophen (Tylenol) 650 mg Q4H PRN GT Mild Pain/Temp > 100.6 09/16/19 18:42 10/16/19 18:41 09/28/19 20:36 Artificial Tears (Akwa-Tears) 2 drop Q12HR BOTH EYES 09/16/19 21:00 10/14/19 20:59 09/30/19 08:43 Baclofen (Lioresal) 10 mg THREE TIMES A DAY GT 09/17/19 09:00 10/14/19 17:59 09/30/19 12:11 Calcitonin [place] (Miacalcin) 1 sprays DAILY NASAL 09/18/19 12:00 10/18/19 11:59 09/30/19 08:42 Chlorhexidine Gluconate (Rebecca-Hex 2%) 1 applic DAILY@1999 TOPIC 09/26/19 20:00 10/26/19 19:59 09/29/19 20:11 Clobetasol Propionate (Temovate) 1 applic EVERY 12 HOURS TOPIC 09/16/19 21:00 10/14/19 20:59 09/30/19 08:47 Dextrose (Dextrose 50%) 25 ml Q30M PRN IV Hypoglycemia 09/16/19 18:45 10/14/19 14:44 Dextrose (Dextrose 50%) 50 ml Q30M PRN IV Hypoglycemia 09/16/19 18:45 10/14/19 14:44 Famotidine (Pepcid) 20 mg BID GT 09/18/19 18:00 10/18/19 17:59 09/30/19 08:41 Fenofibrate (Tricor) 145 mg DAILY ORAL 09/17/19 09:00 10/15/19 08:59 09/30/19 08:41 Fluconazole (Diflucan) 400 mg DAILY ORAL 09/29/19 13:47 10/06/19 13:46 09/30/19 08:41 Insulin Aspart (NovoLOG) EVERY 6 HOURS SUBQ 09/20/19 12:00 10/14/19 16:29 09/30/19 12:11 Levetiracetam (Keppra) 1,000 mg Q8H GT 09/19/19 02:00 10/19/19 01:59 09/30/19 10:13 Lidocaine HCl (Xylocaine 1% 30ml) 30 ml ONCE PRN INJ LINE 09/30/19 15:24 09/30/19 23:59 Ondansetron HCl (Zofran) 4 mg Q6H PRN IVP Nausea & Vomiting 09/16/19 18:44 10/16/19 18:43 Polyethylene Glycol (Miralax) 17 gm DAILYPRN PRN GT Constipation 09/16/19 18:44 10/16/19 18:43 Polymyxin B Sulfate 650120 units/Dextrose 550 ml @ 550 mls/hr EVERY 12 HOURS IV 09/29/19 21:00 10/06/19 20:59 09/30/19 08:42 Sitagliptin Phosphate (Januvia) 50 mg ACBREAKFAST GT 09/17/19 06:30 10/15/19 06:29 09/30/19 05:36 Sodium Chloride 1,000 ml @ 125 mls/hr Q8H IV 09/25/19 01:45 10/25/19 01:44 09/30/19 03:11 Tamsulosin HCl (Flomax) 0.4 mg DAILY ORAL 09/17/19 09:00 10/17/19 08:59 09/30/19 08:41 Trimethoprim/ Sulfamethoxazole 20 ml/Dextrose 570 ml @ 380 mls/hr [id number] BACTRIM IV 09/29/19 16:00 10/06/19 15:59 09/30/19 08:40 Maribel Barrera M.D. Sep 30, 2019 15:52
[2019-09-30 16:00] VITALS: BP 155/97
[2019-09-30] MEDS ORDERED: Minocycline HCl 50mg cap ORAL SCH (16:00)
[2019-09-30] MEDS ORDERED: NS 275ml ONE (16:07)
[2019-09-30] MEDS ORDERED: Tubing Blood Filter IV ONE (16:07)
[2019-09-30] MEDS ORDERED: Tubing IV Secondary IV ONE (16:07)
--- NOTE | 2019-09-30 16:17 | Pre-Procedure Note/Attestation ---
Pre-Procedure Note/Attestation Complete Prior to Procedure Planned Procedure: left Procedure Narrative: abd wall fluid collection aspiration Indications for Procedure Pre-Operative Diagnosis: L abd wall fluid collection Attestation I attest that I discussed the nature of the procedure; its benefits; risks and complications; and alternatives (and the risks and benefits of such alternatives ), prior to the procedure, with the patient (or the patient's legal premium service representative). I attest that, if there was a reasonable possibility of needing a blood transfusion, the patient (or the patient's legal premium service representative) was given the [facility] standardized written summary, pursuant to the [place] Blood Safety Act ([place] Health and Safety Code # 1645, as amended). I attest that I re-evaluated the patient just prior to the surgery and that there has been no change in the patient's H&P, except as documented below: Discussed by phone with pt's. Sawyer Goodman MD Sep 30, 2019 16:17
--- NOTE | 2019-09-30 17:41 | Brief Operative Note ---
Immediate Post Operative Note Operative Note Pre-op Diagnosis: L abd wall fluid collection Procedure: US guided aspiration Post-op Diagnosis: same as pre-op Surgeon: Yovana Moffett Specimen: yes - 3 ml serous fluid, sent to lab Complications: none Fluids: none Implant(s) used?: No Sawyer Moffett MD Sep 30, 2019 17:41
[2019-09-30 20:00] VITALS: BP 152/82
[2019-09-30] MEDS: Dyna-Hex 2% Top Sol 2oz TOPIC SCH (20:28)
--- NOTE | 2019-09-30 23:15 | Progress Note ---
DATE: 09/30/2019 CARDIOLOGY PROGRESS NOTE SUBJECTIVE: The patient is status post fluid extraction from the abdomen. He remains on ventilator support. OBJECTIVE: VITAL SIGNS: Blood pressure 141/77, pulse 105, respirations 15, temperature 99.6. Monitor sinus tachycardia. HEENT: Thin trach secretions. LUNGS: Bilateral breath sounds. Few rhonchi. HEART: Regular rhythm. Rapid rate. Normal S1, S2. ABDOMEN: Soft. EXTREMITIES: A 1+ dependent edema. IMPRESSION: 1. Pulmonary emboli. 2. Sepsis. 3. Abdominal abscess. 4. Secondary sinus tachycardia. 5. Chronic encephalopathy. PLAN: 1. Vent support. 2. Antimicrobials. 3. Maintain adequate hydration. 4. DVT prophylaxis. 5. No role for antiarrhythmic therapy at this time and diuresis. Kali Melgar M.D. DR: DENNIS JOB#: [id number] CC:
[2019-10-01] VITALS: BP 147/78
[2019-10-01] MEDS: levETIRAcetam 500mg/5ml Liquid GT SCH ×3 (01:54→17:31)
[2019-10-01 04:00] VITALS: BP 141/84
[2019-10-01] MEDS: sitaGLIPtin 50mg tab GT SCH (05:32)
[2019-10-01] MEDS: Minocycline HCl 50mg cap ORAL SCH ×2 (05:32→17:32)
[2019-10-01] MEDS: NovoLOG Insulin Flexpen SUBQ SCH ×4 (05:33→23:17)
[2019-10-01 05:52] LABS: BASOPHILS % (AUTO) 0.6 % (0.0-2.0); EOSINOPHILS % (AUTO) 3.4 % (0.0-3.0); HEMATOCRIT 24.4 % (42.0-52.0); HEMOGLOBIN 8.4 G/DL (14.2-18.0); LYMPHOCYTES % (AUTO) 7.7 % (20.0-45.0); MEAN CORPUSCULAR VOLUME 83 FL (80-99); MONOCYTES % (AUTO) 4.8 % (1.0-10.0); NEUTROPHILS % (AUTO) 83.6 % (45.0-75.0); PLATELET COUNT 268 K/UL (150-450); RED BLOOD COUNT 2.94 M/UL (4.70-6.10); RED CELL DISTRIBUTION WIDTH 14.9 % (11.6-14.8); WHITE BLOOD COUNT 16.2 K/UL (4.8-10.8)
[2019-10-01 06:11] LABS: ALANINE AMINOTRANSFERASE 16 U/L (12-78); ALBUMIN/GLOBULIN RATIO 0.4 (1.0-2.7); ALKALINE PHOSPHATASE 94 U/L (46-116); ANION GAP 8 mmol/L (5-15); ASPARTATE AMINO TRANSFERASE 16 U/L (15-37); BILIRUBIN,TOTAL 0.3 MG/DL (0.2-1.0); BLOOD UREA NITROGEN 6 mg/dL (7-18); CALCIUM 9.7 MG/DL (8.5-10.1); CARBON DIOXIDE 26 MMOL/L (21-32); CHLORIDE 99 MMOL/L (98-107); CREATININE 1.1 MG/DL (0.55-1.30); PHOSPHORUS 3.7 MG/DL (2.5-4.9); POTASSIUM 4.2 MMOL/L (3.5-5.1); SODIUM 133 MMOL/L (136-145)
[2019-10-01 06:19] LABS: INR 1.1 (0.9-1.1)
[2019-10-01 08:00] VITALS: BP 157/78
[2019-10-01] MEDS: Bactrim 20ml in D5W 550ml IV SCH ×3 (08:29→23:16)
[2019-10-01] MEDS: Tamsulosin 0.4mg cap ORAL SCH (08:29)
[2019-10-01] MEDS: Fluconazole 100mg tab ORAL SCH (08:29)
[2019-10-01] MEDS: Clobetasol Cream 0.05% 15gm TOPIC SCH ×2 (08:30→20:30)
--- NOTE | 2019-10-01 10:37 | Pulmonolgy Critical Care Note ---
Critical Care - Asmt/Plan Problems: (1) Acute on chronic respiratory failure (2) Pulmonary embolism (3) Sepsis (4) Diabetes mellitus (5) Vegetative state (6) Gastrostomy tube dependent (7) Colostomy in place (8) ATN (acute tubular necrosis) Respiratory: monitor respiratory rate, adjust FIO2 Cardiac: continue to monitor HR/BP Renal: F/U I&O, keep IV fluid Infectious Disease: check cultures, continue antibiotics, other - -Continue IV Bactrim #2 and add PO Miniocycline for MDR/CRE K.pna bacteremia Gastrointestinal: continue feedings/current rate Endocrine: monitor blood sugar Hematologic: monitor H/H Neurologic: PRN Ativan, PRN Morphine Affect: PRN ativan Notes Reviewed: stud master/mistress, cardio, renal Discussed with: nurses, consultants, protective services case workerimprovement manager - Objective Last 24 Hour Vital Signs Date Time Temp Pulse Resp B/P (MAP) Pulse Ox O2 Delivery O2 Flow Rate FiO2 10/01/19 09:25 112 14 30 10/01/19 08:00 30 10/01/19 08:00 118 10/01/19 08:00 Mechanical Ventilator 10/01/19 08:00 100.5 118 15 157/78 (104) 100 10/01/19 07:55 115 14 30 10/01/19 05:26 117 14 30 10/01/19 04:00 Mechanical Ventilator 10/01/19 04:00 30 10/01/19 04:00 99.1 117 18 141/84 (103) 100 10/01/19 03:27 115 10/01/19 03:24 116 14 30 10/01/19 00:00 99.5 112 16 147/78 (101) 100 10/01/19 00:00 Mechanical Ventilator 10/01/19 00:00 30 09/30/19 23:30 120 15 30 09/30/19 23:30 124 09/30/19 21:30 119 15 30 09/30/19 20:00 Mechanical Ventilator 09/30/19 20:00 100.1 126 16 152/82 (105) 100 09/30/19 20:00 124 09/30/19 20:00 30 09/30/19 19:30 100 15 30 09/30/19 16:44 105 15 30 09/30/19 16:00 98.8 104 17 155/97 (116) 100 09/30/19 16:00 30 09/30/19 16:00 Mechanical Ventilator 09/30/19 15:24 101 15 30 09/30/19 15:23 107 09/30/19 13:10 107 14 30 09/30/19 12:00 Mechanical Ventilator 09/30/19 12:00 30 09/30/19 12:00 Mechanical Ventilator 09/30/19 12:00 99.5 105 15 141/77 (98) 100 09/30/19 11:33 110 09/30/19 11:19 111 16 30 Status: obtunded Condition: critical Neck: full ROM Lungs: rales, rhonchi Heart: HR/BP stable Abdomen: soft, non-tender Extremities: no C/C/E, edema Micro: Microbiology Date/Time Source Procedure Growth Status 09/29/19 23:30 Blood Blood Culture - Preliminary NO GROWTH AFTER 24 HOURS Resulted 09/29/19 23:25 Blood Blood Culture - Preliminary NO GROWTH AFTER 24 HOURS Resulted Accucheck: 165 Critical Care - Subjective ROS Limited/Unobtainable: Yes Interval Events: abdominal wall fluid collection was drained yesterday. Condition: critical EKG Rhythm: Sinus Tachycardia FI02: 30 Vent Support Breath Rate: 14 Vent Support Mode: AC Vent Tidal Volume: 600 Sputum Amount: Small PEEP: 5.0 PIP: 27 Tube Feeding Amount: 65 I&O: Intake and Output 09/30/19 10/01/19 18:59 06:59 Intake Total 2842 ml 2882.916 ml Output Total 3400 ml 3600 ml Balance -558 ml -717.084 ml Free Water 200 ml 100 ml IV Total 2187 ml 2067.916 ml Tube Feeding 455 ml 715 ml Output Urine Total 3300 ml 3600 ml Stool Total 100 ml # Bowel Movements 100 Labs: Laboratory Tests Test 10/01/19 04:30 White Blood Count 16.2 K/UL (4.8-10.8) H Red Blood Count 2.94 M/UL (4.70-6.10) L Hemoglobin 8.4 G/DL (14.2-18.0) L Hematocrit 24.4 % (42.0-52.0) L Mean Corpuscular Volume 83 FL (80-99) Mean Corpuscular Hemoglobin 28.5 PG (27.0-31.0) Mean Corpuscular Hemoglobin Concent 34.3 G/DL (32.0-36.0) Red Cell Distribution Width 14.9 % (11.6-14.8) H Platelet Count 268 K/UL (150-450) Mean Platelet Volume 6.9 FL (6.5-10.1) Neutrophils (%) (Auto) 83.6 % (45.0-75.0) H Lymphocytes (%) (Auto) 7.7 % (20.0-45.0) L Monocytes (%) (Auto) 4.8 % (1.0-10.0) Eosinophils (%) (Auto) 3.4 % (0.0-3.0) H Basophils (%) (Auto) 0.6 % (0.0-2.0) Prothrombin Time 11.9 SEC (9.30-11.50) H Prothromb Time International Ratio 1.1 (0.9-1.1) Activated Partial Thromboplast Time 35 SEC (23-33) H Sodium Level 133 MMOL/L (136-145) L Potassium Level 4.2 MMOL/L (3.5-5.1) Chloride Level 99 MMOL/L (98-107) Carbon Dioxide Level 26 MMOL/L (21-32) Anion Gap 8 mmol/L (5-15) Blood Urea Nitrogen 6 mg/dL (7-18) L Creatinine 1.1 MG/DL (0.55-1.30) Estimat Glomerular Filtration Rate > 60 mL/min (>60) Glucose Level 171 MG/DL (74-106) H Uric Acid 3.9 MG/DL (2.6-7.2) Calcium Level 9.7 MG/DL (8.5-10.1) Phosphorus Level 3.7 MG/DL (2.5-4.9) Magnesium Level 1.5 MG/DL (1.8-2.4) L Total Bilirubin 0.3 MG/DL (0.2-1.0) Aspartate Amino Transf (AST/SGOT) 16 U/L (15-37) Alanine Aminotransferase (ALT/SGPT) 16 U/L (12-78) Alkaline Phosphatase 94 U/L (46-116) Total Protein 6.9 G/DL (6.4-8.2) Albumin 2.0 G/DL (3.4-5.0) L Globulin 4.9 g/dL Albumin/Globulin Ratio 0.4 (1.0-2.7) L Nico Goetz MD Oct 01, 2019 10:37
[2019-10-01] MEDS ORDERED: Heparin 25,000u/D5W 500ml 500 ML IV SCH (10:40)
--- NOTE | 2019-10-01 10:40 | Diagnostic Imaging Report ---
Indication: Abnormal fluid collection in the left lateral abdominal wall musculature demonstrated on recent CT scan Technique: Prior imaging studies reviewed. Informed consent obtained prior to commencement of the procedure from patient's . Procedural timeout performed. Ultrasound used to localize optimal puncture site. The skin was sterilely prepped and draped. Local anesthesia with 1% lidocaine. Under real-time ultrasound guidance, the target collection in the left flank was accessed using a Yueh needle. Approximately 3 mL of serous fluid aspirated. Specimen sent to the lab for microbial analysis as well as for cytology. Follow-up imaging demonstrated evacuation of the collection. An area of residual tissue which demonstrates considerable flow on Doppler imaging demonstrated. The patient tolerated the procedure well, without immediate complication. Comparison: none Findings: Initial scans demonstrate the target lesion in the left flank, as demonstrated on the prior CT scan. There is also a satellite lesion located slightly medially. The periphery of the target lesion demonstrates considerable flow on color Doppler imaging. After aspiration, area of hypoechogenicity presents but is demonstrated be solid by the presence of flow on Doppler Impression: Small amount of serous fluid aspirated from left flank fluid collection. No gisselle pus so collection is presumably not an abscess; no drain placed. Note, however, the presence of considerable residual tissue with hyperemia. This most likely represents hyperemic scar tissue but this should be followed up to exclude tumor Procedure, findings, and recommendations discussed by phone with Dr. Barrera after the procedure was performed
--- NOTE | 2019-10-01 11:24 | Infectious Diseases Prog Note ---
Assessment/Plan Assessment/Plan Assessment: Sepsis, recurrent- MDR K.pna bacteremia- ?source- fluid collection with serous fluid- r/o abscess, cx pending -09/30 SP US guided aspiration: Small amount of serous fluid aspirated from left flank fluid collection. No gisselle pus so collection is presumably not an abscess; no drain placed. Note, however, the presence of considerable residual tissue with hyperemia. This most likely represents hyperemic scar tissue but this should be followed up to exclude tumor --cx and cytology p Probable cystitis/pyelonephritis -09/28 CT c/ab/p: Left lower lobe segmental and subsegmental pulmonary emboli . Bibasilar atelectasis/consolidations. 10 mm low-density lesion in right thyroid. Heterogeneous large areas of hypoattenuation in the right lobe of the liver, maybe fatty changes, correlate for hepatitis or other process. Contracted gallbladder with thickened enhancing wall. Left lateral abdominal wall musculature 1.5 x 2.2 cm fluid collection with enhancing worrisome for an abscess. Bilateral renal stones, staghorn type in the left kidney, nonobstructive. Mild fullness of the right renal pelvis. Mild bilateral perinephric stranding, correlate for infection.Kendrick catheter in urinary bladder. Thickening of the urinary bladder with mild stranding may be cystitis. A few small calcifications in the left urinary bladder base. -09/27 Bcx 2/4 CRE K.pna (I Genta; S bactrim, tigecycline) ; 09/29 Bx NTD -09/25 Cdiff neg CXR: Left pleural effusion is unchanged. Left perihilar atelectasis is unchanged. Tracheostomy again demonstrated. Bcx 4/4 MDR K. pna (S only to tigecycline, bactrim; R Meropenem, Amikacin, Colistin, Polymixin B) u/a wbc 15-20, nit neg, leuk +2; ucx C. parapsilopsis Fever, persistent Leukocytosis, recurrent, increasing Pulmonary Emboli UTI, sp rx Probable PNA,sp Rx -Bcx Neg -u/a wbc tnct, nit neg, leuk +3; ucx C. parasilopsis -sp cx ESBL P. mirabilis, MDR P. stuarti (S Cefepime, Zosyn, Ertapenem) -CXR: Geographic density overlying the right upper lung. This likely represents overlying soft tissue although cannot exclude an underlying consolidation/pneumonia. Pulmonary vascular congestion. Small left pleural effusion. Subsegmental atelectasis versus infiltrate in the left lung base. -Influenza A/B ag neg DIVYA, SP Mild AST elevation, SP -Abd uS: Hepatomegaly with fatty infiltration. Suspected nonobstructive stone left kidney. Left renal cyst Sacral decubitus hx of recurrent UTIs -UCx 11/17/18 P.a. (R Levo, otherwise S) - CT abd 11/19/18 3 mm distal right ureteral calculus, minimal resultant hydronephrosis. Atrophic left kidney, containing a large staghorn calculus and multiple intrarenal calyceal calculi, previously described UCx 11/23/18 - Enterobacter (S Cefepime) and yeast and Pa HTN CKD ICH s/p craniotomy and [employer] shunt now w/ persistent vegetative state dysphagia s/p GT Chronic resp failure - vent/trach dependent ICH COPD DM Seizure disorder BPH Dysphagia, G tube Colostomy [facility] resident Plan: -Continue IV Bactrim #3 and add PO Miniocycline #2 for MDR/CRE K.pna bacteremia -Cont PO fluconazole #3 for likely jesús cystitis/pyelo (+staghorn calculus, chronic kendrick, prolonged antibiotic treatment) -09/30 SP IV POlymixin B #2 -09/29 SP Meropenem #5, IV Amikacin #3 -09/27 SP IV Vancomycin #3 -/ SP ertapenem #4 - 09/19/10 S/P Meropenem - 09/17 SP IV Vancomycin #4 - 09/14 SP Cefepime x1 -f/u cx -Monitor CBC/CMP, temperatures -PEG/Trach care -aspiration precautions -wound care -f/u repeat Bcx 2 -f/u fluid collection cultuers and cytology Thank you for this consultation. Will continue to follow along with you. Discussed with RN Subjective Allergies: Coded Allergies: AZTREONAM (Verified Allergy, Unknown, 05/13/18) Subjective afebrile in >36hrs' mild leukocytosis latest bcx p Objective Vital Signs Last 24 Hour Vital Signs Date Time Temp Pulse Resp B/P (MAP) Pulse Ox O2 Delivery O2 Flow Rate FiO2 10/01/19 09:25 112 14 30 10/01/19 08:00 30 10/01/19 08:00 118 10/01/19 08:00 Mechanical Ventilator 10/01/19 08:00 100.5 118 15 157/78 (104) 100 10/01/19 07:55 115 14 30 10/01/19 05:26 117 14 30 10/01/19 04:00 Mechanical Ventilator 10/01/19 04:00 30 10/01/19 04:00 99.1 117 18 141/84 (103) 100 10/01/19 03:27 115 10/01/19 03:24 116 14 30 10/01/19 00:00 99.5 112 16 147/78 (101) 100 10/01/19 00:00 Mechanical Ventilator 10/01/19 00:00 30 09/30/19 23:30 120 15 30 09/30/19 23:30 124 09/30/19 21:30 119 15 30 09/30/19 20:00 Mechanical Ventilator 09/30/19 20:00 100.1 126 16 152/82 (105) 100 09/30/19 20:00 124 09/30/19 20:00 30 09/30/19 19:30 100 15 30 09/30/19 16:44 105 15 30 09/30/19 16:00 98.8 104 17 155/97 (116) 100 09/30/19 16:00 30 09/30/19 16:00 Mechanical Ventilator 09/30/19 15:24 101 15 30 09/30/19 15:23 107 09/30/19 13:10 107 14 30 09/30/19 12:00 Mechanical Ventilator 09/30/19 12:00 30 09/30/19 12:00 Mechanical Ventilator 09/30/19 12:00 99.5 105 15 141/77 (98) 100 09/30/19 11:33 110 Height (Feet): 5 Height (Inches): 7.00 Weight (Pounds): 209 Objective GENERAL: Noncommunicative. Tongue fasciculation. Moderate edema. LUNGS: Diminished breath sounds. CARDIAC: Regular rhythm. Rapid rate. Normal S1, S2. ABDOMEN: Soft with G-tube and colostomy bag. Microbiology Date/Time Source Procedure Growth Status 09/29/19 23:30 Blood Blood Culture - Preliminary NO GROWTH AFTER 24 HOURS Resulted 09/29/19 23:25 Blood Blood Culture - Preliminary NO GROWTH AFTER 24 HOURS Resulted Laboratory Tests Test 10/01/19 04:30 White Blood Count 16.2 K/UL (4.8-10.8) H Red Blood Count 2.94 M/UL (4.70-6.10) L Hemoglobin 8.4 G/DL (14.2-18.0) L Hematocrit 24.4 % (42.0-52.0) L Mean Corpuscular Volume 83 FL (80-99) Mean Corpuscular Hemoglobin 28.5 PG (27.0-31.0) Mean Corpuscular Hemoglobin Concent 34.3 G/DL (32.0-36.0) Red Cell Distribution Width 14.9 % (11.6-14.8) H Platelet Count 268 K/UL (150-450) Mean Platelet Volume 6.9 FL (6.5-10.1) Neutrophils (%) (Auto) 83.6 % (45.0-75.0) H Lymphocytes (%) (Auto) 7.7 % (20.0-45.0) L Monocytes (%) (Auto) 4.8 % (1.0-10.0) Eosinophils (%) (Auto) 3.4 % (0.0-3.0) H Basophils (%) (Auto) 0.6 % (0.0-2.0) Prothrombin Time 11.9 SEC (9.30-11.50) H Prothromb Time International Ratio 1.1 (0.9-1.1) Activated Partial Thromboplast Time 35 SEC (23-33) H Sodium Level 133 MMOL/L (136-145) L Potassium Level 4.2 MMOL/L (3.5-5.1) Chloride Level 99 MMOL/L (98-107) Carbon Dioxide Level 26 MMOL/L (21-32) Anion Gap 8 mmol/L (5-15) Blood Urea Nitrogen 6 mg/dL (7-18) L Creatinine 1.1 MG/DL (0.55-1.30) Estimat Glomerular Filtration Rate > 60 mL/min (>60) Glucose Level 171 MG/DL (74-106) H Uric Acid 3.9 MG/DL (2.6-7.2) Calcium Level 9.7 MG/DL (8.5-10.1) Phosphorus Level 3.7 MG/DL (2.5-4.9) Magnesium Level 1.5 MG/DL (1.8-2.4) L Total Bilirubin 0.3 MG/DL (0.2-1.0) Aspartate Amino Transf (AST/SGOT) 16 U/L (15-37) Alanine Aminotransferase (ALT/SGPT) 16 U/L (12-78) Alkaline Phosphatase 94 U/L (46-116) Total Protein 6.9 G/DL (6.4-8.2) Albumin 2.0 G/DL (3.4-5.0) L Globulin 4.9 g/dL Albumin/Globulin Ratio 0.4 (1.0-2.7) L Current Medications Medications (Trade) Dose Ordered Sig/Va Route PRN Reason Start Time Stop Time Status Last Admin Dose Admin Acetaminophen (Tylenol) 650 mg Q4H PRN GT Mild Pain/Temp > 100.6 09/16/19 18:42 10/16/19 18:41 09/28/19 20:36 Artificial Tears (Akwa-Tears) 2 drop Q12HR BOTH EYES 09/16/19 21:00 10/14/19 20:59 10/01/19 08:33 Baclofen (Lioresal) 10 mg THREE TIMES A DAY GT 09/17/19 09:00 10/14/19 17:59 10/01/19 08:30 Calcitonin [place] (Miacalcin) 1 sprays DAILY NASAL 09/18/19 12:00 10/18/19 11:59 10/01/19 08:30 Chlorhexidine Gluconate (Rebecca-Hex 2%) 1 applic DAILY@1999 TOPIC 09/26/19 20:00 10/26/19 19:59 09/30/19 20:28 Clobetasol Propionate (Temovate) 1 applic EVERY 12 HOURS TOPIC 09/16/19 21:00 10/14/19 20:59 10/01/19 08:30 Dextrose (Dextrose 50%) 25 ml Q30M PRN IV Hypoglycemia 09/16/19 18:45 10/14/19 14:44 Dextrose (Dextrose 50%) 50 ml Q30M PRN IV Hypoglycemia 09/16/19 18:45 10/14/19 14:44 Famotidine (Pepcid) 20 mg BID GT 09/18/19 18:00 10/18/19 17:59 10/01/19 08:29 Fenofibrate (Tricor) 145 mg DAILY ORAL 09/17/19 09:00 10/15/19 08:59 10/01/19 08:29 Fluconazole (Diflucan) 400 mg DAILY GT 10/02/19 09:00 10/06/19 13:46 Heparin Sodium/ Dextrose 500 ml @ 37.96 mls/ hr ADJUST PER PROTOCOL IV 10/01/19 10:40 10/31/19 10:39 10/01/19 10:54 Insulin Aspart (NovoLOG) EVERY 6 HOURS SUBQ 09/20/19 12:00 10/14/19 16:29 10/01/19 05:33 Levetiracetam (Keppra) 1,000 mg Q8H GT 09/19/19 02:00 10/19/19 01:59 10/01/19 09:40 Magnesium Sulfate 100 ml @ 100 mls/hr Q1H IVPB 10/01/19 08:45 10/01/19 12:44 10/01/19 10:52 Minocycline HCl (Minocin) 100 mg Q12HR@0600,1800 ORAL 10/01/19 06:00 10/08/19 05:59 10/01/19 05:32 Ondansetron HCl (Zofran) 4 mg Q6H PRN IVP Nausea & Vomiting 09/16/19 18:44 10/16/19 18:43 Polyethylene Glycol (Miralax) 17 gm DAILYPRN PRN GT Constipation 09/16/19 18:44 10/16/19 18:43 Sitagliptin Phosphate (Januvia) 50 mg ACBREAKFAST GT 09/17/19 06:30 10/15/19 06:29 10/01/19 05:32 Tamsulosin HCl (Flomax) 0.4 mg DAILY ORAL 09/17/19 09:00 10/17/19 08:59 10/01/19 08:29 Trimethoprim/ Sulfamethoxazole 20 ml/Dextrose 570 ml @ 380 mls/hr [id number] BACTRIM IV 09/29/19 16:00 10/06/19 15:59 10/01/19 08:29 Maribel Barrera M.D. Oct 01, 2019 11:24
[2019-10-01 12:00] VITALS: BP 155/75
--- NOTE | 2019-10-01 12:58 | Nephrology Progress Note ---
Assessment/Plan Problem List: (1) Renal failure (ARF), acute on chronic (2) Urinary retention (3) Acute on chronic respiratory failure (4) Hypercalcemia Assessment Hypercalcemia Urinary retention, BPH , Acute on chronic renal failure Electrolyte imbalance Colostomy DM PEG Vegetative state Acute on chronic respiratory failure Plan consider transfusion: defered to PMD Free water- K and Phos and Mag supplements as needed pulm support Aredia for high Ca on 09/18 redose today 09/23 Subjective ROS Limited/Unobtainable: Yes Objective Objective Last 24 Hour Vital Signs Date Time Temp Pulse Resp B/P (MAP) Pulse Ox O2 Delivery O2 Flow Rate FiO2 10/01/19 12:42 125 14 30 10/01/19 12:00 Mechanical Ventilator 10/01/19 12:00 30 10/01/19 12:00 97.4 122 15 155/75 (101) 100 10/01/19 11:25 120 16 30 10/01/19 09:25 112 14 30 10/01/19 08:00 30 10/01/19 08:00 118 10/01/19 08:00 Mechanical Ventilator 10/01/19 08:00 100.5 118 15 157/78 (104) 100 10/01/19 07:55 115 14 30 10/01/19 05:26 117 14 30 10/01/19 04:00 Mechanical Ventilator 10/01/19 04:00 30 10/01/19 04:00 99.1 117 18 141/84 (103) 100 10/01/19 03:27 115 10/01/19 03:24 116 14 30 10/01/19 00:00 99.5 112 16 147/78 (101) 100 10/01/19 00:00 Mechanical Ventilator 10/01/19 00:00 30 09/30/19 23:30 120 15 30 09/30/19 23:30 124 09/30/19 21:30 119 15 30 09/30/19 20:00 Mechanical Ventilator 09/30/19 20:00 100.1 126 16 152/82 (105) 100 09/30/19 20:00 124 09/30/19 20:00 30 09/30/19 19:30 100 15 30 09/30/19 16:44 105 15 30 09/30/19 16:00 98.8 104 17 155/97 (116) 100 09/30/19 16:00 30 12/10/19 16:00 Mechanical Ventilator 09/30/19 15:24 101 15 30 09/30/19 15:23 107 09/30/19 13:10 107 14 30 Intake and Output 09/30/19 10/01/19 18:59 06:59 Intake Total 2842 ml 2882.916 ml Output Total 3400 ml 3600 ml Balance -558 ml -717.084 ml Free Water 200 ml 100 ml IV Total 2187 ml 2067.916 ml Tube Feeding 455 ml 715 ml Output Urine Total 3300 ml 3600 ml Stool Total 100 ml # Bowel Movements 100 Laboratory Tests 10/01/19 04:30: White Blood Count 16.2H, Red Blood Count 2.94L, Hemoglobin 8.4L, Hematocrit 24.4L, Mean Corpuscular Volume 83, Mean Corpuscular Hemoglobin 28.5, Mean Corpuscular Hemoglobin Concent 34.3, Red Cell Distribution Width 14.9H, Platelet Count 268, Mean Platelet Volume 6.9, Neutrophils (%) (Auto) 83.6H, Lymphocytes (%) (Auto) 7.7L, Monocytes (%) (Auto) 4.8, Eosinophils (%) (Auto) 3.4H, Basophils (%) (Auto) 0.6, Prothrombin Time 11.9H, Prothromb Time International Ratio 1.1, Activated Partial Thromboplast Time 35H, Sodium Level 133L, Potassium Level 4.2, Chloride Level 99, Carbon Dioxide Level 26, Anion Gap 8, Blood Urea Nitrogen 6L, Creatinine 1.1, Estimat Glomerular Filtration Rate > 60, Glucose Level 171H, Uric Acid 3.9, Calcium Level 9.7, Phosphorus Level 3.7, Magnesium Level 1.5L, Total Bilirubin 0.3, Aspartate Amino Transf ( AST/SGOT) 16, Alanine Aminotransferase (ALT/SGPT) 16, Alkaline Phosphatase 94, Total Protein 6.9, Albumin 2.0L, Globulin 4.9, Albumin/Globulin Ratio 0.4L Height (Feet): 5 Height (Inches): 7.00 Weight (Pounds): 209 General Appearance: no apparent distress EENT: other - trach Cardiovascular: tachycardia Respiratory/Chest: decreased breath sounds Abdomen: soft Objective no change Cl Zaragoza MD Oct 01, 2019 12:58
--- NOTE | 2019-10-01 15:46 | Urology Progress Note ---
Assessment/Plan Status: stable Assessment/Plan: 1. Urinary retention. 2. BPH. 3. Neurogenic bladder. 4. Incontinence. 5. Pyuria/UTI/colonized. 6. Hematuria. 7. Proteinuria. 8. Renal insufficiency, acute possibly on chronic. 9. Renal cyst. 10. Nephrolithiasis. 11. Renal fullness. 12. Bladder calcifications. 13. POD # 14, cysto/optic urethrotomy. monitor clinically kendrick placed 09/17 hand irrigated and do PRN abx as ordered, pr ID diflucan added monitor WBC f/u on last blood cx renal fxn stable Subjective Allergies: Coded Allergies: AZTREONAM (Verified Allergy, Unknown, 05/13/18) Subjective all noted, kendrick draining, non-verbal Objective Last 24 Hour Vital Signs Date Time Temp Pulse Resp B/P (MAP) Pulse Ox O2 Delivery O2 Flow Rate FiO2 10/01/19 12:42 125 14 30 10/01/19 12:00 Mechanical Ventilator 10/01/19 12:00 30 10/01/19 12:00 124 10/01/19 12:00 97.4 122 15 155/75 (101) 100 10/01/19 11:25 120 16 30 10/01/19 09:25 112 14 30 10/01/19 08:00 30 10/01/19 08:00 118 10/01/19 08:00 Mechanical Ventilator 10/01/19 08:00 100.5 118 15 157/78 (104) 100 10/01/19 07:55 115 14 30 10/01/19 05:26 117 14 30 10/01/19 04:00 Mechanical Ventilator 10/01/19 04:00 30 10/01/19 04:00 99.1 117 18 141/84 (103) 100 10/01/19 03:27 115 10/01/19 03:24 116 14 30 10/01/19 00:00 99.5 112 16 147/78 (101) 100 10/01/19 00:00 Mechanical Ventilator 10/01/19 00:00 30 09/30/19 23:30 120 15 30 09/30/19 23:30 124 09/30/19 21:30 119 15 30 09/30/19 20:00 Mechanical Ventilator 09/30/19 20:00 100.1 126 16 152/82 (105) 100 09/30/19 20:00 124 09/30/19 20:00 30 09/30/19 19:30 100 15 30 09/30/19 16:44 105 15 30 09/30/19 16:00 98.8 104 17 155/97 (116) 100 09/30/19 16:00 30 09/30/19 16:00 Mechanical Ventilator Intake and Output 09/30/19 10/01/19 19:00 07:00 Intake Total 2907 ml 2692.916 ml Output Total 3400 ml 3600 ml Balance -493 ml -907.084 ml Free Water 200 ml 100 ml IV Total 2187 ml 1942.916 ml Tube Feeding 520 ml 650 ml Output Urine Total 3300 ml 3600 ml Stool Total 100 ml # Bowel Movements 100 Microbiology Date/Time Source Procedure Growth Status 09/29/19 23:30 Blood Blood Culture - Preliminary NO GROWTH AFTER 24 HOURS Resulted 09/15/19 11:00 Nasal Nares - Final Complete 09/15/19 11:00 Nasal Nares - Final Complete 09/25/19 19:00 Stool Clostridium difficile Toxin Assay - Final Complete 09/25/19 19:00 Urine,Clean Catch Urine Culture - Final Camelia Parapsilosis Complete 09/14/19 09:10 Rectum VRE Culture - Final Enterococcus Faecium - Vre Complete Current Medications Medications (Trade) Dose Ordered Sig/Va Route PRN Reason Start Time Stop Time Status Last Admin Dose Admin Acetaminophen (Tylenol) 650 mg Q4H PRN GT Mild Pain/Temp > 100.6 09/16/19 18:42 10/16/19 18:41 09/28/19 20:36 Artificial Tears (Akwa-Tears) 2 drop Q12HR BOTH EYES 09/16/19 21:00 10/14/19 20:59 10/01/19 08:33 Baclofen (Lioresal) 10 mg THREE TIMES A DAY GT 09/17/19 09:00 10/14/19 17:59 10/01/19 12:11 Calcitonin [place] (Miacalcin) 1 sprays DAILY NASAL 09/18/19 12:00 10/18/19 11:59 10/01/19 08:30 Chlorhexidine Gluconate (Rebecca-Hex 2%) 1 applic DAILY@1999 TOPIC 09/26/19 20:00 10/26/19 19:59 09/30/19 20:28 Clobetasol Propionate (Temovate) 1 applic EVERY 12 HOURS TOPIC 09/16/19 21:00 10/14/19 20:59 10/01/19 08:30 Dextrose (Dextrose 50%) 25 ml Q30M PRN IV Hypoglycemia 09/16/19 18:45 10/14/19 14:44 Dextrose (Dextrose 50%) 50 ml Q30M PRN IV Hypoglycemia 09/16/19 18:45 10/14/19 14:44 Famotidine (Pepcid) 20 mg BID GT 09/18/19 18:00 10/18/19 17:59 10/01/19 08:29 Fenofibrate (Tricor) 145 mg DAILY ORAL 09/17/19 09:00 10/15/19 08:59 10/01/19 08:29 Fluconazole (Diflucan) 400 mg DAILY GT 10/02/19 09:00 10/06/19 13:46 Heparin Sodium/ Dextrose 500 ml @ 37.96 mls/ hr ADJUST PER PROTOCOL IV 10/01/19 10:40 10/31/19 10:39 10/01/19 10:54 Insulin Aspart (NovoLOG) EVERY 6 HOURS SUBQ 09/20/19 12:00 10/14/19 16:29 10/01/19 12:12 Levetiracetam (Keppra) 1,000 mg Q8H GT 09/19/19 02:00 10/19/19 01:59 10/01/19 09:40 Minocycline HCl (Minocin) 100 mg Q12HR@0600,1800 ORAL 10/01/19 06:00 10/08/19 05:59 10/01/19 05:32 Ondansetron HCl (Zofran) 4 mg Q6H PRN IVP Nausea & Vomiting 09/16/19 18:44 10/16/19 18:43 Polyethylene Glycol (Miralax) 17 gm DAILYPRN PRN GT Constipation 09/16/19 18:44 10/16/19 18:43 Sitagliptin Phosphate (Januvia) 50 mg ACBREAKFAST GT 09/17/19 06:30 10/15/19 06:29 10/01/19 05:32 Tamsulosin HCl (Flomax) 0.4 mg DAILY ORAL 09/17/19 09:00 10/17/19 08:59 10/01/19 08:29 Trimethoprim/ Sulfamethoxazole 20 ml/Dextrose 570 ml @ 380 mls/hr [id number] BACTRIM IV 09/29/19 16:00 10/06/19 15:59 10/01/19 08:29 Laboratory Tests 10/01/19 04:30: White Blood Count 16.2H, Red Blood Count 2.94L, Hemoglobin 8.4L, Hematocrit 24.4L, Mean Corpuscular Volume 83, Mean Corpuscular Hemoglobin 28.5, Mean Corpuscular Hemoglobin Concent 34.3, Red Cell Distribution Width 14.9H, Platelet Count 268, Mean Platelet Volume 6.9, Neutrophils (%) (Auto) 83.6H, Lymphocytes (%) (Auto) 7.7L, Monocytes (%) (Auto) 4.8, Eosinophils (%) (Auto) 3.4H, Basophils (%) (Auto) 0.6, Prothrombin Time 11.9H, Prothromb Time International Ratio 1.1, Activated Partial Thromboplast Time 35H, Sodium Level 133L, Potassium Level 4.2, Chloride Level 99, Carbon Dioxide Level 26, Anion Gap 8, Blood Urea Nitrogen 6L, Creatinine 1.1, Estimat Glomerular Filtration Rate > 60, Glucose Level 171H, Uric Acid 3.9, Calcium Level 9.7, Phosphorus Level 3.7, Magnesium Level 1.5L, Total Bilirubin 0.3, Aspartate Amino Transf ( AST/SGOT) 16, Alanine Aminotransferase (ALT/SGPT) 16, Alkaline Phosphatase 94, Total Protein 6.9, Albumin 2.0L, Globulin 4.9, Albumin/Globulin Ratio 0.4L Height (Feet): 5 Height (Inches): 7.00 Weight (Pounds): 209 Objective exam stable kendrick indwelling, yellow/hermelindo urine, some debris CT C/A/P (09/28) noted Manohar Villarreal MD Oct 01, 2019 15:46
[2019-10-01 16:00] VITALS: BP 139/79
[2019-10-01] MEDS ORDERED: NS 275ml ONE (16:12)
[2019-10-01] MEDS ORDERED: Tubing IV Secondary IV ONE (16:12)
[2019-10-01] MEDS: Acetaminophen 650mg/20.3ml GT PRN ×2 (16:12→20:36)
[2019-10-01 20:00] VITALS: BP 120/68
[2019-10-01] MEDS: Dyna-Hex 2% Top Sol 2oz TOPIC SCH (20:30)
[2019-10-01] MEDS ORDERED: Heparin 5000 units/ml inj IV SCH (20:50)
[2019-10-01] MEDS: Heparin 25,000u/D5W 500ml 500 ML IV SCH (20:58)
[2019-10-02] VITALS: BP 121/76
--- NOTE | 2019-10-02 00:45 | Progress Note ---
DATE: 10/01/2019 CARDIOLOGY PROGRESS NOTE SUBJECTIVE: The patient remains in chronic vegetative state on ventilator support. Blood pressure parameters high normal at 155/75, heart rate in the 110 to 120 range, afebrile, T-max 100.5, on full anticoagulation. OBJECTIVE: LUNGS: Bilateral breath sounds. Thin secretions. CARDIAC: Regular rhythm. Rapid rate. Normal S1, S2. ABDOMEN: Soft. G-tube intact. EXTREMITIES: There is dependent edema. LABORATORY DATA: Notable for magnesium 1.5, BUN 6, creatinine 1.1, potassium 4.2, and albumin 2. IMPRESSION: 1. Respiratory failure. 2. Sepsis. 3. Pulmonary embolism. 4. Sinus tachycardia. 5. Severe protein-calorie malnutrition. 6. Hypertension. 7. Hypomagnesemia. PLAN: 1. Intravenous magnesium. 2. Antimicrobials. 3. Nutrition by feeding tube. 4. Ventilator support. 5. add antihypertensive therapy at this time, but consider beta-cristhian if blood pressure parameters keep rising. Kali Melgar M.D. DR: GISSELL JOB#: [id number] CC:
[2019-10-02] MEDS: Acetaminophen 650mg/20.3ml GT PRN ×3 (01:09→20:00)
[2019-10-02] MEDS: levETIRAcetam 500mg/5ml Liquid GT SCH ×3 (01:09→17:29)
[2019-10-02 03:38] LABS: HEMATOCRIT 27.1 % (42.0-52.0); HEMOGLOBIN 8.9 G/DL (14.2-18.0); MEAN CORPUSCULAR VOLUME 86 FL (80-99); PLATELET COUNT 329 K/UL (150-450); RED BLOOD COUNT 3.16 M/UL (4.70-6.10); RED CELL DISTRIBUTION WIDTH 16.3 % (11.6-14.8); WHITE BLOOD COUNT 18.7 K/UL (4.8-10.8)
[2019-10-02 03:52] LABS: ALANINE AMINOTRANSFERASE 19 U/L (12-78); ALBUMIN 2.1 G/DL (3.4-5.0); ALBUMIN/GLOBULIN RATIO 0.4 (1.0-2.7); ALKALINE PHOSPHATASE 118 U/L (46-116); ANION GAP 7 mmol/L (5-15); ASPARTATE AMINO TRANSFERASE 24 U/L (15-37); BILIRUBIN,TOTAL 0.5 MG/DL (0.2-1.0); BLOOD UREA NITROGEN 9 mg/dL (7-18); CALCIUM 9.9 MG/DL (8.5-10.1); CARBON DIOXIDE 26 MMOL/L (21-32); CHLORIDE 95 MMOL/L (98-107); CREATININE 1.5 MG/DL (0.55-1.30); PHOSPHORUS 3.2 MG/DL (2.5-4.9); POTASSIUM 4.8 MMOL/L (3.5-5.1); SODIUM 128 MMOL/L (136-145)
[2019-10-02 04:00] VITALS: BP 108/72
[2019-10-02] MEDS: Minocycline HCl 50mg cap ORAL SCH ×2 (05:35→17:29)
[2019-10-02] MEDS: sitaGLIPtin 50mg tab GT SCH (05:35)
[2019-10-02] MEDS: NovoLOG Insulin Flexpen SUBQ SCH ×4 (05:36→23:34)
--- NOTE | 2019-10-02 07:00 | Progress Note ---
DATE: 10/01/2019 SUBJECTIVE: Chart review in detail since the patient seen last week and been discussed with the medical staff. Major event, the patient was found to have pulmonary emboli on 09/29/2019 and was placed on heparin drip. Heparin drip was increased recently because of low INR. He is currently on 24 units/kg. PHYSICAL EXAMINATION: VITAL SIGNS: Blood pressure is 120/68, his pulse is 121, respirations are 17, and temperature is 100.2. HEENT: Eyes were normal. ENT, mucous membranes were moist and intact. NECK: Supple with no JVD without lymph nodes. Tracheostomy site is clean. LUNGS: Clear without rhonchi, rales, or wheezing. Secretions are small, thin, and whitish. CARDIAC: Normal sounds with regular beats. There is tachycardia at rest. Sinus tachycardia on monitor. ABDOMEN: Soft and nontender with normal bowel sounds. Gastrostomy site is clean. EXTREMITIES: Warm without cyanosis, clubbing, or edema. LABORATORY AND DIAGNOSTIC DATA: Hemoglobin is 8.4, hematocrit 24.4 with MCV of 83, WBC of 16.2, and platelets 253. His WBC was 11.2 yesterday and 10.3 two days ago. His BUN and creatinine is 6 and 1.1 respectively. His sodium is 133, potassium 4.2, chloride 99, CO2 is 26. His uric acid is 3.9. His total CK is 16. His albumin is 2.0 and total protein is 6.9. was identified on the CT on 09/27/2019. amount of serous fluid was aspirated from the left flank and was sent for laboratory testing. Repeat laboratory tests will be done in the a.m. Sariah Bhat M.D. DR: AUSTEN JOB#: [id number] CC:
[2019-10-02] MEDS: Bactrim 20ml in D5W 550ml IV SCH (07:54)
[2019-10-02 08:00] VITALS: BP 107/67
[2019-10-02] MEDS: Heparin 25,000u/D5W 500ml 500 ML IV SCH (08:01)
[2019-10-02] MEDS ORDERED: NaCl 3% 500ml 500 ML IV ONE (09:00)
--- NOTE | 2019-10-02 09:07 | Urology Progress Note ---
Assessment/Plan Status: stable Assessment/Plan: 1. Urinary retention. 2. BPH. 3. Neurogenic bladder. 4. Incontinence. 5. Pyuria/UTI/colonized. 6. Hematuria. 7. Proteinuria. 8. Renal insufficiency, acute possibly on chronic. 9. Renal cyst. 10. Nephrolithiasis. 11. Renal fullness. 12. Bladder calcifications. 13. POD # 15, cysto/optic urethrotomy. monitor clinically kendrick placed 09/17 hand irrigated and do PRN abx as ordered, pr ID diflucan added monitor WBC f/u on last blood cx renal fxn stable Subjective Allergies: Coded Allergies: AZTREONAM (Verified Allergy, Unknown, 05/13/18) Subjective all noted, kendrick draining, non-verbal Objective Last 24 Hour Vital Signs Date Time Temp Pulse Resp B/P (MAP) Pulse Ox O2 Delivery O2 Flow Rate FiO2 10/02/19 08:06 100.4 10/02/19 07:22 127 17 30 10/02/19 06:32 101.7 10/02/19 05:04 119 16 30 10/02/19 05:00 98.1 10/02/19 04:00 30 10/02/19 04:00 Mechanical Ventilator 10/02/19 04:00 101.7 111 15 108/72 (84) 98 10/02/19 03:27 127 10/02/19 02:54 123 18 30 10/02/19 01:39 98.9 10/02/19 01:00 100.0 10/02/19 00:31 115 17 30 10/02/19 00:00 Mechanical Ventilator 10/02/19 00:00 30 10/02/19 00:00 99.2 111 15 121/76 (91) 100 10/01/19 23:26 115 10/01/19 23:08 124 15 30 10/01/19 21:11 121 18 30 10/01/19 21:06 99.4 10/01/19 20:00 30 10/01/19 20:00 100.2 121 17 120/68 (85) 100 10/01/19 20:00 Mechanical Ventilator 10/01/19 19:11 130 16 30 10/01/19 19:02 131 10/01/19 16:46 120 16 30 10/01/19 16:00 124 10/01/19 16:00 100.6 122 16 139/79 (99) 100 10/01/19 16:00 30 10/01/19 16:00 Mechanical Ventilator 10/01/19 15:29 120 16 30 10/01/19 12:42 125 14 30 10/01/19 12:00 Mechanical Ventilator 10/01/19 12:00 30 10/01/19 12:00 124 10/01/19 12:00 97.4 122 15 155/75 (101) 100 10/01/19 11:25 120 16 30 10/01/19 09:25 112 14 30 Intake and Output 10/01/19 10/02/19 19:00 07:00 Intake Total 2347.76 ml 2133.480 ml Output Total 4600 ml 2150 ml Balance -2252.24 ml -16.520 ml Free Water 200 ml 100 ml IV Total 1367.76 ml 1253.480 ml Tube Feeding 780 ml 780 ml Output Urine Total 4300 ml 1800 ml Stool Total 300 ml 350 ml Microbiology Date/Time Source Procedure Growth Status 09/29/19 23:30 Blood Blood Culture - Preliminary NO GROWTH AFTER 48 HOURS Resulted 09/15/19 11:00 Nasal Nares - Final Complete 09/15/19 11:00 Nasal Nares - Final Complete 09/25/19 19:00 Stool Clostridium difficile Toxin Assay - Final Complete 09/25/19 19:00 Urine,Clean Catch Urine Culture - Final Camelia Parapsilosis Complete 09/14/19 09:10 Rectum VRE Culture - Final Enterococcus Faecium - Vre Complete Current Medications Medications (Trade) Dose Ordered Sig/Va Route PRN Reason Start Time Stop Time Status Last Admin Dose Admin Acetaminophen (Tylenol) 650 mg Q4H PRN GT Mild Pain/Temp > 100.6 09/16/19 18:42 10/16/19 18:41 10/02/19 06:34 Artificial Tears (Akwa-Tears) 2 drop Q12HR BOTH EYES 09/16/19 21:00 10/14/19 20:59 10/01/19 20:31 Baclofen (Lioresal) 10 mg THREE TIMES A DAY GT 09/17/19 09:00 10/14/19 17:59 10/01/19 17:31 Calcitonin [place] (Miacalcin) 1 sprays DAILY NASAL 09/18/19 12:00 10/18/19 11:59 10/01/19 08:30 Chlorhexidine Gluconate (Rebecca-Hex 2%) 1 applic DAILY@2000 TOPIC 09/26/19 20:00 10/26/19 19:59 10/01/19 20:30 Clobetasol Propionate (Temovate) 1 applic EVERY 12 HOURS TOPIC 09/16/19 21:00 10/14/19 20:59 10/01/19 20:30 Dextrose (Dextrose 50%) 25 ml Q30M PRN IV Hypoglycemia 09/16/19 18:45 10/14/19 14:44 Dextrose (Dextrose 50%) 50 ml Q30M PRN IV Hypoglycemia 09/16/19 18:45 10/14/19 14:44 Famotidine (Pepcid) 20 mg BID GT 09/18/19 18:00 10/18/19 17:59 10/01/19 17:33 Fenofibrate (Tricor) 145 mg DAILY ORAL 09/17/19 09:00 10/15/19 08:59 10/01/19 08:29 Fluconazole (Diflucan) 400 mg DAILY GT 10/02/19 09:00 10/06/19 13:46 Heparin Sodium/ Dextrose 500 ml @ 45.552 mls/ hr ADJUST PER PROTOCOL IV 10/01/19 20:50 10/31/19 10:39 10/02/19 08:01 Insulin Aspart (NovoLOG) EVERY 6 HOURS SUBQ 09/20/19 12:00 10/14/19 16:29 10/02/19 05:36 Levetiracetam (Keppra) 1,000 mg Q8H GT 09/19/19 02:00 10/19/19 01:59 10/02/19 01:09 Minocycline HCl (Minocin) 100 mg Q12HR@0600,1800 ORAL 10/01/19 06:00 10/08/19 05:59 10/02/19 05:35 Ondansetron HCl (Zofran) 4 mg Q6H PRN IVP Nausea & Vomiting 09/16/19 18:44 10/16/19 18:43 Polyethylene Glycol (Miralax) 17 gm DAILYPRN PRN GT Constipation 09/16/19 18:44 10/16/19 18:43 Sitagliptin Phosphate (Januvia) 50 mg ACBREAKFAST GT 09/17/19 06:30 10/15/19 06:29 10/02/19 05:35 Sodium Chloride 500 ml @ 30 mls/hr ONCE ONCE IV 10/02/19 09:00 10/03/19 01:39 Tamsulosin HCl (Flomax) 0.4 mg DAILY ORAL 09/17/19 09:00 10/17/19 08:59 10/01/19 08:29 Trimethoprim/ Sulfamethoxazole 20 ml/Dextrose 570 ml @ 380 mls/hr [id number] BACTRIM IV 09/29/19 16:00 10/06/19 15:59 10/02/19 07:54 Laboratory Tests 10/01/19 20:19: Activated Partial Thromboplast Time 39H 10/02/19 03:05: Activated Partial Thromboplast Time 72H, White Blood Count 18.7H, Red Blood Count 3.16L, Hemoglobin 8.9L, Hematocrit 27.1L, Mean Corpuscular Volume 86, Mean Corpuscular Hemoglobin 28.2, Mean Corpuscular Hemoglobin Concent 32.9, Red Cell Distribution Width 16.3H, Platelet Count 329, Mean Platelet Volume 7.3, Neutrophils (%) (Auto) , Lymphocytes (%) (Auto) , Monocytes (%) (Auto) , Eosinophils (%) (Auto) , Basophils (%) (Auto) , Differential Total Cells Counted 100, Neutrophils % (Manual) 85H, Lymphocytes % (Manual) 7L, Monocytes % (Manual) 5, Eosinophils % (Manual) 3, Basophils % (Manual) 0, Band Neutrophils 0 , Platelet Estimate Adequate, Platelet Morphology Normal, Sodium Level 128L, Potassium Level 4.8, Chloride Level 95L, Carbon Dioxide Level 26, Anion Gap 7, Blood Urea Nitrogen 9, Creatinine 1.5H, Estimat Glomerular Filtration Rate 59.5 , Glucose Level 321#H, Calcium Level 9.9, Phosphorus Level 3.2, Magnesium Level 2.2, Total Bilirubin 0.5, Aspartate Amino Transf (AST/SGOT) 24, Alanine Aminotransferase (ALT/SGPT) 19, Alkaline Phosphatase 118H, Total Protein 7.5, Albumin 2.1L, Globulin 5.4, Albumin/Globulin Ratio 0.4L Height (Feet): 5 Height (Inches): 7.00 Weight (Pounds): 202 Objective exam stable kendrick indwelling, yellow/hermelindo urine, some debris CT C/A/P (09/28) noted Manohar Villarreal MD Oct 02, 2019 09:07
[2019-10-02] MEDS: Clobetasol Cream 0.05% 15gm TOPIC SCH ×2 (09:29→20:00)
[2019-10-02] MEDS: Fluconazole 100mg tab GT SCH (09:30)
[2019-10-02] MEDS: Tamsulosin 0.4mg cap ORAL SCH (09:31)
--- NOTE | 2019-10-02 11:26 | Pulmonolgy Critical Care Note ---
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 (8) Diabetes mellitus (9) Vegetative state Respiratory: monitor respiratory rate, adjust FIO2, CXR Cardiac: continue to monitor HR/BP Renal: F/U I&O, keep IV fluid, check electrolytes Gastrointestinal: continue feedings/current rate Endocrine: monitor blood sugar Hematologic: monitor H/H, transfuse if hgb<8.5 Neurologic: PRN Ativan, PRN Morphine, keep patient comfortable Affect: PRN ativan Notes Reviewed: stamp maker, cardio, renal, ID Discussed with: nurses, consultants, protective services case workerproperty utilization manager - Objective Last 24 Hour Vital Signs Date Time Temp Pulse Resp B/P (MAP) Pulse Ox O2 Delivery O2 Flow Rate FiO2 10/02/19 09:45 122 15 30 10/02/19 08:06 100.4 10/02/19 08:00 100.4 122 16 107/67 (80) 100 10/02/19 08:00 Mechanical Ventilator 10/02/19 08:00 30 10/02/19 07:22 127 17 30 10/02/19 06:32 101.7 10/02/19 05:04 119 16 30 10/02/19 05:00 98.1 10/02/19 04:00 30 10/02/19 04:00 Mechanical Ventilator 10/02/19 04:00 101.7 111 15 108/72 (84) 98 10/02/19 03:27 127 10/02/19 02:54 123 18 30 10/02/19 01:39 98.9 10/02/19 01:00 100.0 10/02/19 00:31 115 17 30 10/02/19 00:00 Mechanical Ventilator 10/02/19 00:00 30 10/02/19 00:00 99.2 111 15 121/76 (91) 100 10/01/19 23:26 115 10/01/19 23:08 124 15 30 10/01/19 21:11 121 18 30 10/01/19 21:06 99.4 10/01/19 20:00 30 10/01/19 20:00 100.2 121 17 120/68 (85) 100 10/01/19 20:00 Mechanical Ventilator 10/01/19 19:11 130 16 30 10/01/19 19:02 131 10/01/19 16:46 120 16 30 10/01/19 16:00 124 10/01/19 16:00 100.6 122 16 139/79 (99) 100 10/01/19 16:00 30 10/01/19 16:00 Mechanical Ventilator 10/01/19 15:29 120 16 30 10/01/19 12:42 125 14 30 10/01/19 12:00 Mechanical Ventilator 10/01/19 12:00 30 10/01/19 12:00 124 10/01/19 12:00 97.4 122 15 155/75 (101) 100 10/01/19 11:25 120 16 30 Status: obtunded Condition: critical HEENT: atraumatic, normocephalic Neck: full ROM Heart: HR/BP unstable Abdomen: soft, non-tender Extremities: no C/C/E, edema Decubiti: stage Micro: Microbiology Date/Time Source Procedure Growth Status 09/29/19 23:30 Blood Blood Culture - Preliminary NO GROWTH AFTER 48 HOURS Resulted 09/29/19 23:25 Blood Blood Culture - Preliminary NO GROWTH AFTER 48 HOURS Resulted Accucheck: 278 Critical Care - Subjective ROS Limited/Unobtainable: Yes Condition: critical EKG Rhythm: Sinus Rhythm FI02: 30 Vent Support Breath Rate: 14 Vent Support Mode: AC Vent Tidal Volume: 600 Sputum Amount: Scant PEEP: 5.0 PIP: 29 Tube Feeding Amount: 65 I&O: Intake and Output 10/01/19 10/02/19 18:59 06:59 Intake Total 2309.80 ml 2171.440 ml Output Total 4600 ml 2150 ml Balance -2290.20 ml 21.440 ml Free Water 200 ml 100 ml IV Total 1329.80 ml 1291.440 ml Tube Feeding 780 ml 780 ml Output Urine Total 4300 ml 1800 ml Stool Total 300 ml 350 ml Labs: Laboratory Tests Test 10/01/19 20:19 10/02/19 03:05 Activated Partial Thromboplast Time 39 SEC (23-33) H 72 SEC (23-33) H White Blood Count 18.7 K/UL (4.8-10.8) H Red Blood Count 3.16 M/UL (4.70-6.10) L Hemoglobin 8.9 G/DL (14.2-18.0) L Hematocrit 27.1 % (42.0-52.0) L Mean Corpuscular Volume 86 FL (80-99) Mean Corpuscular Hemoglobin 28.2 PG (27.0-31.0) Mean Corpuscular Hemoglobin Concent 32.9 G/DL (32.0-36.0) Red Cell Distribution Width 16.3 % (11.6-14.8) H Platelet Count 329 K/UL (150-450) Mean Platelet Volume 7.3 FL (6.5-10.1) Neutrophils (%) (Auto) % (45.0-75.0) Lymphocytes (%) (Auto) % (20.0-45.0) Monocytes (%) (Auto) % (1.0-10.0) Eosinophils (%) (Auto) % (0.0-3.0) Basophils (%) (Auto) % (0.0-2.0) Differential Total Cells Counted 100 Neutrophils % (Manual) 85 % (45-75) H Lymphocytes % (Manual) 7 % (20-45) L Monocytes % (Manual) 5 % (1-10) Eosinophils % (Manual) 3 % (0-3) Basophils % (Manual) 0 % (0-2) Band Neutrophils 0 % (0-8) Platelet Estimate Adequate Platelet Morphology Normal Sodium Level 128 MMOL/L (136-145) L Potassium Level 4.8 MMOL/L (3.5-5.1) Chloride Level 95 MMOL/L (98-107) L Carbon Dioxide Level 26 MMOL/L (21-32) Anion Gap 7 mmol/L (5-15) Blood Urea Nitrogen 9 mg/dL (7-18) Creatinine 1.5 MG/DL (0.55-1.30) H Estimat Glomerular Filtration Rate 59.5 mL/min (>60) Glucose Level 321 MG/DL (74-106) #H Calcium Level 9.9 MG/DL (8.5-10.1) Phosphorus Level 3.2 MG/DL (2.5-4.9) Magnesium Level 2.2 MG/DL (1.8-2.4) Total Bilirubin 0.5 MG/DL (0.2-1.0) Aspartate Amino Transf (AST/SGOT) 24 U/L (15-37) Alanine Aminotransferase (ALT/SGPT) 19 U/L (12-78) Alkaline Phosphatase 118 U/L (46-116) H Total Protein 7.5 G/DL (6.4-8.2) Albumin 2.1 G/DL (3.4-5.0) L Globulin 5.4 g/dL Albumin/Globulin Ratio 0.4 (1.0-2.7) L Nico Goetz MD Oct 02, 2019 11:26
[2019-10-02 12:00] VITALS: BP 106/64
--- NOTE | 2019-10-02 12:39 | Infectious Diseases Prog Note ---
Assessment/Plan Assessment/Plan Assessment: Sepsis, recurrent- MDR K.pna bacteremia- ?source- fluid collection with serous fluid- r/o abscess, cx pending -09/30 SP US guided aspiration: Small amount of serous fluid aspirated from left flank fluid collection. No gisselle pus so collection is presumably not an abscess; no drain placed. Note, however, the presence of considerable residual tissue with hyperemia. This most likely represents hyperemic scar tissue but this should be followed up to exclude tumor --cx and cytology p Probable cystitis/pyelonephritis -09/28 CT c/ab/p: Left lower lobe segmental and subsegmental pulmonary emboli . Bibasilar atelectasis/consolidations. 10 mm low-density lesion in right thyroid. Heterogeneous large areas of hypoattenuation in the right lobe of the liver, maybe fatty changes, correlate for hepatitis or other process. Contracted gallbladder with thickened enhancing wall. Left lateral abdominal wall musculature 1.5 x 2.2 cm fluid collection with enhancing worrisome for an abscess. Bilateral renal stones, staghorn type in the left kidney, nonobstructive. Mild fullness of the right renal pelvis. Mild bilateral perinephric stranding, correlate for infection.Kendrick catheter in urinary bladder. Thickening of the urinary bladder with mild stranding may be cystitis. A few small calcifications in the left urinary bladder base. -09/27 Bcx 2/4 CRE K.pna (I Genta; S bactrim, tigecycline) ; 09/29 Bx NTD -09/25 Cdiff neg CXR: Left pleural effusion is unchanged. Left perihilar atelectasis is unchanged. Tracheostomy again demonstrated. Bcx 4/4 MDR K. pna (S only to tigecycline, bactrim; R Meropenem, Amikacin, Colistin, Polymixin B) u/a wbc 15-20, nit neg, leuk +2; ucx C. parapsilopsis Fever, persistent Leukocytosis, recurrent, increasing Pulmonary Emboli UTI, sp rx Probable PNA,sp Rx -Bcx Neg -u/a wbc tnct, nit neg, leuk +3; ucx C. parasilopsis -sp cx ESBL P. mirabilis, MDR P. stuarti (S Cefepime, Zosyn, Ertapenem) -CXR: Geographic density overlying the right upper lung. This likely represents overlying soft tissue although cannot exclude an underlying consolidation/pneumonia. Pulmonary vascular congestion. Small left pleural effusion. Subsegmental atelectasis versus infiltrate in the left lung base. -Influenza A/B ag neg DIVYA, SP Mild AST elevation, SP -Abd uS: Hepatomegaly with fatty infiltration. Suspected nonobstructive stone left kidney. Left renal cyst Sacral decubitus hx of recurrent UTIs -UCx 11/17/18 P.a. (R Levo, otherwise S) - CT abd 11/19/18 3 mm distal right ureteral calculus, minimal resultant hydronephrosis. Atrophic left kidney, containing a large staghorn calculus and multiple intrarenal calyceal calculi, previously described UCx 11/23/18 - Enterobacter (S Cefepime) and yeast and Pa HTN CKD ICH s/p craniotomy and [employer] shunt now w/ persistent vegetative state dysphagia s/p GT Chronic resp failure - vent/trach dependent ICH COPD DM Seizure disorder BPH Dysphagia, G tube Colostomy SN[facility] resident Plan: -Continue IV Bactrim #4 and add PO Miniocycline #3 for MDR/CRE K.pna bacteremia -Cont PO fluconazole #4 for likely jesús cystitis/pyelo (+staghorn calculus, chronic kendrick, prolonged antibiotic treatment) -09/30 SP IV POlymixin B #2 -09/29 SP Meropenem #5, IV Amikacin #3 -09/27 SP IV Vancomycin #3 -/ SP ertapenem #4 - 09/19/10 S/P Meropenem - 09/17 SP IV Vancomycin #4 - 09/14 SP Cefepime x1 -f/u cx -Monitor CBC/CMP, temperatures -PEG/Trach care -aspiration precautions -wound care -Repeat Bcx 2, CXR, u/a w/ reflex -f/u fluid collection cultuers and cytology Thank you for this consultation. Will continue to follow along with you. Discussed with RN Subjective Allergies: Coded Allergies: AZTREONAM (Verified Allergy, Unknown, 05/13/18) Subjective Tm 101.7 wbc improving latest Bcx NTD Objective Vital Signs Last 24 Hour Vital Signs Date Time Temp Pulse Resp B/P (MAP) Pulse Ox O2 Delivery O2 Flow Rate FiO2 10/02/19 12:00 30 10/02/19 12:00 Mechanical Ventilator 10/02/19 11:50 114 15 30 10/02/19 09:45 122 15 30 10/02/19 08:06 100.4 10/02/19 08:00 100.4 122 16 107/67 (80) 100 10/02/19 08:00 Mechanical Ventilator 10/02/19 08:00 30 10/02/19 08:00 127 10/02/19 07:22 127 17 30 10/02/19 06:32 101.7 10/02/19 05:04 119 16 30 10/02/19 05:00 98.1 10/02/19 04:00 30 10/02/19 04:00 Mechanical Ventilator 10/02/19 04:00 101.7 111 15 108/72 (84) 98 10/02/19 03:27 127 10/02/19 02:54 123 18 30 10/02/19 01:39 98.9 10/02/19 01:00 100.0 10/02/19 00:31 115 17 30 10/02/19 00:00 Mechanical Ventilator 10/02/19 00:00 30 10/02/19 00:00 99.2 111 15 121/76 (91) 100 10/01/19 23:26 115 10/01/19 23:08 124 15 30 10/01/19 21:11 121 18 30 10/01/19 21:06 99.4 10/01/19 20:00 30 10/01/19 20:00 100.2 121 17 120/68 (85) 100 10/01/19 20:00 Mechanical Ventilator 10/01/19 19:11 130 16 30 10/01/19 19:02 131 10/01/19 16:46 120 16 30 10/01/19 16:00 124 10/01/19 16:00 100.6 122 16 139/79 (99) 100 10/01/19 16:00 30 10/01/19 16:00 Mechanical Ventilator 10/01/19 15:29 120 16 30 10/01/19 12:42 125 14 30 Height (Feet): 5 Height (Inches): 7.00 Weight (Pounds): 202 Objective GENERAL: Noncommunicative. Tongue fasciculation. Moderate edema. LUNGS: Diminished breath sounds. CARDIAC: Regular rhythm. Rapid rate. Normal S1, S2. ABDOMEN: Soft with G-tube and colostomy bag. Microbiology Date/Time Source Procedure Growth Status 09/29/19 23:30 Blood Blood Culture - Preliminary NO GROWTH AFTER 48 HOURS Resulted 09/29/19 23:25 Blood Blood Culture - Preliminary NO GROWTH AFTER 48 HOURS Resulted Laboratory Tests Test 10/01/19 20:19 10/02/19 03:05 Activated Partial Thromboplast Time 39 SEC (23-33) H 72 SEC (23-33) H White Blood Count 18.7 K/UL (4.8-10.8) H Red Blood Count 3.16 M/UL (4.70-6.10) L Hemoglobin 8.9 G/DL (14.2-18.0) L Hematocrit 27.1 % (42.0-52.0) L Mean Corpuscular Volume 86 FL (80-99) Mean Corpuscular Hemoglobin 28.2 PG (27.0-31.0) Mean Corpuscular Hemoglobin Concent 32.9 G/DL (32.0-36.0) Red Cell Distribution Width 16.3 % (11.6-14.8) H Platelet Count 329 K/UL (150-450) Mean Platelet Volume 7.3 FL (6.5-10.1) Neutrophils (%) (Auto) % (45.0-75.0) Lymphocytes (%) (Auto) % (20.0-45.0) Monocytes (%) (Auto) % (1.0-10.0) Eosinophils (%) (Auto) % (0.0-3.0) Basophils (%) (Auto) % (0.0-2.0) Differential Total Cells Counted 100 Neutrophils % (Manual) 85 % (45-75) H Lymphocytes % (Manual) 7 % (20-45) L Monocytes % (Manual) 5 % (1-10) Eosinophils % (Manual) 3 % (0-3) Basophils % (Manual) 0 % (0-2) Band Neutrophils 0 % (0-8) Platelet Estimate Adequate Platelet Morphology Normal Sodium Level 128 MMOL/L (136-145) L Potassium Level 4.8 MMOL/L (3.5-5.1) Chloride Level 95 MMOL/L (98-107) L Carbon Dioxide Level 26 MMOL/L (21-32) Anion Gap 7 mmol/L (5-15) Blood Urea Nitrogen 9 mg/dL (7-18) Creatinine 1.5 MG/DL (0.55-1.30) H Estimat Glomerular Filtration Rate 59.5 mL/min (>60) Glucose Level 321 MG/DL (74-106) #H Calcium Level 9.9 MG/DL (8.5-10.1) Phosphorus Level 3.2 MG/DL (2.5-4.9) Magnesium Level 2.2 MG/DL (1.8-2.4) Total Bilirubin 0.5 MG/DL (0.2-1.0) Aspartate Amino Transf (AST/SGOT) 24 U/L (15-37) Alanine Aminotransferase (ALT/SGPT) 19 U/L (12-78) Alkaline Phosphatase 118 U/L (46-116) H Total Protein 7.5 G/DL (6.4-8.2) Albumin 2.1 G/DL (3.4-5.0) L Globulin 5.4 g/dL Albumin/Globulin Ratio 0.4 (1.0-2.7) L Current Medications Medications (Trade) Dose Ordered Sig/Va Route PRN Reason Start Time Stop Time Status Last Admin Dose Admin Acetaminophen (Tylenol) 650 mg Q4H PRN GT Mild Pain/Temp > 100.6 09/16/19 18:42 10/16/19 18:41 10/02/19 06:34 Artificial Tears (Akwa-Tears) 2 drop Q12HR BOTH EYES 09/16/19 21:00 10/14/19 20:59 10/02/19 09:29 Baclofen (Lioresal) 10 mg THREE TIMES A DAY GT 09/17/19 09:00 10/14/19 17:59 10/02/19 09:30 Calcitonin [place] (Miacalcin) 1 sprays DAILY NASAL 09/18/19 12:00 10/18/19 11:59 10/02/19 09:30 Chlorhexidine Gluconate (Rebecca-Hex 2%) 1 applic DAILY@1999 TOPIC 09/26/19 20:00 10/26/19 19:59 10/01/19 20:30 Clobetasol Propionate (Temovate) 1 applic EVERY 12 HOURS TOPIC 09/16/19 21:00 10/14/19 20:59 10/02/19 09:29 Dextrose (Dextrose 50%) 25 ml Q30M PRN IV Hypoglycemia 09/16/19 18:45 10/14/19 14:44 Dextrose (Dextrose 50%) 50 ml Q30M PRN IV Hypoglycemia 09/16/19 18:45 10/14/19 14:44 Famotidine (Pepcid) 20 mg BID GT 09/18/19 18:00 10/18/19 17:59 10/02/19 09:31 Fenofibrate (Tricor) 145 mg DAILY ORAL 09/17/19 09:00 10/15/19 08:59 10/02/19 09:31 Fluconazole (Diflucan) 400 mg DAILY GT 10/02/19 09:00 10/06/19 13:46 10/02/19 09:30 Heparin Sodium/ Dextrose 500 ml @ 45.552 mls/ hr ADJUST PER PROTOCOL IV 10/01/19 20:50 10/31/19 10:39 10/02/19 08:01 Insulin Aspart (NovoLOG) EVERY 6 HOURS SUBQ 09/20/19 12:00 10/14/19 16:29 10/02/19 11:41 Levetiracetam (Keppra) 1,000 mg Q8H GT 09/19/19 02:00 10/19/19 01:59 10/02/19 09:31 Minocycline HCl (Minocin) 100 mg Q12HR@0600,1800 ORAL 10/01/19 06:00 10/08/19 05:59 10/02/19 05:35 Ondansetron HCl (Zofran) 4 mg Q6H PRN IVP Nausea & Vomiting 09/16/19 18:44 10/16/19 18:43 Polyethylene Glycol (Miralax) 17 gm DAILYPRN PRN GT Constipation 09/16/19 18:44 10/16/19 18:43 Sitagliptin Phosphate (Januvia) 50 mg ACBREAKFAST GT 09/17/19 06:30 10/15/19 06:29 10/02/19 05:35 Sodium Chloride 500 ml @ 30 mls/hr ONCE ONCE IV 10/02/19 09:00 10/03/19 01:39 10/02/19 09:48 Tamsulosin HCl (Flomax) 0.4 mg DAILY ORAL 09/17/19 09:00 10/17/19 08:59 10/02/19 09:31 Trimethoprim/ Sulfamethoxazole 28 ml/Dextrose 578 ml @ 385.333 mls/hr [id number] BACTRIM IV 10/02/19 16:00 10/09/19 15:59 Maribel Barrera M.D. Oct 02, 2019 12:39
--- NOTE | 2019-10-02 14:45 | Nephrology Progress Note ---
Assessment/Plan Problem List: (1) Renal failure (ARF), acute on chronic (2) Urinary retention (3) Acute on chronic respiratory failure (4) Hypercalcemia Assessment Hypercalcemia Urinary retention, BPH , Acute on chronic renal failure Electrolyte imbalance Colostomy DM PEG Vegetative state Acute on chronic respiratory failure Plan 3% Saline Free water- K and Phos and Mag supplements as needed pulm support Aredia for high Ca on 09/18 redose today 09/23 Subjective ROS Limited/Unobtainable: Yes Objective Objective Last 24 Hour Vital Signs Date Time Temp Pulse Resp B/P (MAP) Pulse Ox O2 Delivery O2 Flow Rate FiO2 10/02/19 13:58 119 14 30 10/02/19 12:00 112 10/02/19 12:00 100.0 115 14 106/64 (78) 100 10/02/19 12:00 30 10/02/19 12:00 Mechanical Ventilator 10/02/19 11:50 114 15 30 10/02/19 09:45 122 15 30 10/02/19 08:06 100.4 10/02/19 08:00 100.4 122 16 107/67 (80) 100 10/02/19 08:00 Mechanical Ventilator 10/02/19 08:00 30 10/02/19 08:00 127 10/02/19 07:22 127 17 30 10/02/19 06:32 101.7 10/02/19 05:04 119 16 30 10/02/19 05:00 98.1 10/02/19 04:00 30 10/02/19 04:00 Mechanical Ventilator 10/02/19 04:00 101.7 111 15 108/72 (84) 98 10/02/19 03:27 127 10/02/19 02:54 123 18 30 10/02/19 01:39 98.9 10/02/19 01:00 100.0 10/02/19 00:31 115 17 30 10/02/19 00:00 Mechanical Ventilator 10/02/19 00:00 30 10/02/19 00:00 99.2 111 15 121/76 (91) 100 10/01/19 23:26 115 10/01/19 23:08 124 15 30 10/01/19 21:11 121 18 30 10/01/19 21:06 99.4 10/01/19 20:00 30 10/01/19 20:00 100.2 121 17 120/68 (85) 100 10/01/19 20:00 Mechanical Ventilator 10/01/19 19:11 130 16 30 10/01/19 19:02 131 10/01/19 16:46 120 16 30 10/01/19 16:00 124 10/01/19 16:00 100.6 122 16 139/79 (99) 100 10/01/19 16:00 30 10/01/19 16:00 Mechanical Ventilator 10/01/19 15:29 120 16 30 Intake and Output 10/01/19 10/02/19 18:59 06:59 Intake Total 2309.80 ml 2171.440 ml Output Total 4600 ml 2150 ml Balance -2290.20 ml 21.440 ml Free Water 200 ml 100 ml IV Total 1329.80 ml 1291.440 ml Tube Feeding 780 ml 780 ml Output Urine Total 4300 ml 1800 ml Stool Total 300 ml 350 ml Laboratory Tests 10/01/19 20:19: Activated Partial Thromboplast Time 39H 10/02/19 03:05: Activated Partial Thromboplast Time 72H, White Blood Count 18.7H, Red Blood Count 3.16L, Hemoglobin 8.9L, Hematocrit 27.1L, Mean Corpuscular Volume 86, Mean Corpuscular Hemoglobin 28.2, Mean Corpuscular Hemoglobin Concent 32.9, Red Cell Distribution Width 16.3H, Platelet Count 329, Mean Platelet Volume 7.3, Neutrophils (%) (Auto) , Lymphocytes (%) (Auto) , Monocytes (%) (Auto) , Eosinophils (%) (Auto) , Basophils (%) (Auto) , Differential Total Cells Counted 100, Neutrophils % (Manual) 85H, Lymphocytes % (Manual) 7L, Monocytes % (Manual) 5, Eosinophils % (Manual) 3, Basophils % (Manual) 0, Band Neutrophils 0 , Platelet Estimate Adequate, Platelet Morphology Normal, Sodium Level 128L, Potassium Level 4.8, Chloride Level 95L, Carbon Dioxide Level 26, Anion Gap 7, Blood Urea Nitrogen 9, Creatinine 1.5H, Estimat Glomerular Filtration Rate 59.5 , Glucose Level 321#H, Calcium Level 9.9, Phosphorus Level 3.2, Magnesium Level 2.2, Total Bilirubin 0.5, Aspartate Amino Transf (AST/SGOT) 24, Alanine Aminotransferase (ALT/SGPT) 19, Alkaline Phosphatase 118H, Total Protein 7.5, Albumin 2.1L, Globulin 5.4, Albumin/Globulin Ratio 0.4L Height (Feet): 5 Height (Inches): 7.00 Weight (Pounds): 202 General Appearance: no apparent distress EENT: other - trach Cardiovascular: tachycardia Respiratory/Chest: decreased breath sounds Abdomen: distended Objective no change Cl Zaragoza MD Oct 02, 2019 14:45
[2019-10-02 16:00] VITALS: BP 106/59
[2019-10-02] MEDS: D5W IV SCH ×2 (16:02→23:26)
[2019-10-02] MEDS: SULFAMETHOXAZOLE IV SCH ×2 (16:02→23:26)
[2019-10-02] MEDS: TRIMETHOPRIM IV SCH ×2 (16:02→23:26)
[2019-10-02 16:07] LABS: APPEARANCE,URINE SLIGHTLY CLOUDY; BILIRUBIN, URINE NEGATIVE (NEGATIVE); COLOR,URINE PALE YELLOW; GLUCOSE, URINE (UA) 3+ (NEGATIVE); KETONES,URINE NEGATIVE (NEGATIVE); LEUKOCYTE ESTERASE ,URINE 3+ (NEGATIVE); NITRITE,URINE NEGATIVE (NEGATIVE); PH,URINE 8 (4.5-8.0); PROTEIN,URINE 3+ (NEGATIVE); UROBILINOGEN,URINE NORMAL MG/DL (0.0-1.0)
[2019-10-02] MEDS ORDERED: Eliquis 5mg tablet GT SCH (18:00)
[2019-10-02] MEDS: Eliquis 5mg tablet GT SCH (18:18)
[2019-10-02] MEDS: Dyna-Hex 2% Top Sol 2oz TOPIC SCH (19:59)
[2019-10-02 20:00] VITALS: BP 114/60
[2019-10-03] VITALS (7 sets, daily range): BP systolic 118–131; BP diastolic 60–78
[2019-10-03] MEDS: Acetaminophen 650mg/20.3ml GT PRN ×3 (00:27→20:38)
[2019-10-03] MEDS: levETIRAcetam 500mg/5ml Liquid GT SCH ×3 (01:36→17:55)
--- NOTE | 2019-10-03 03:30 | Progress Note ---
DATE: 10/02/2019 CARDIOLOGY PROGRESS NOTE SUBJECTIVE: The patient on ventilator support and poorly responsive. At baseline, worsening electrolyte abnormalities noted. Monitor, sinus tachycardia and sinus rhythm. OBJECTIVE: HEENT: Thin secretions. trach. CARDIAC: Regular rhythm and rate. Normal S1, S2. LUNGS: Bilateral breath sounds with few rhonchi. ABDOMEN: Soft with G-tube intact. EXTREMITIES: 1+ dependent edema. IMPRESSION: 1. Respiratory failure. 2. Pulmonary embolus. 3. Secondary sinus tachycardia. 4. Sepsis with recovered shock. 5. Hyponatremia. 6. Acute on chronic renal failure. 7. Severe protein-calorie malnutrition. PLAN: 1. Cautious use of 3% saline. 2. Ventilator support. 3. Antimicrobials. 4. Full anticoagulation. 5. Replace electrolytes including magnesium laboratory parameters. Kali Melgar M.D. DR: GISSELL JOB#: [id number] CC:
--- NOTE | 2019-10-03 03:45 | Progress Note ---
DATE: 10/02/2019 SUBJECTIVE: The patient is awake, alert, afebrile, and hemodynamically stable. PHYSICAL EXAMINATION: VITAL SIGNS: Blood pressure is 118/69, pulse is 110, respirations of 20, and temperature is 98.1. HEENT: Eyes were normal. ENT, mucous membranes were moist and intact. NECK: Supple with no JVD without lymph nodes. Tracheostomy site is clean. LUNGS: Clear without rhonchi, rales, or wheezing. Secretions are small, thin, and hodgson. CARDIAC: Normal sounds with regular beats. There is no S3, S4, or pericardial rub. ABDOMEN: Soft and nontender with normal bowel sounds. Gastrostomy site is clean. EXTREMITIES: Warm without cyanosis, clubbing, or edema. IMPRESSION: . Repeat laboratory tests will be done in the a.m. Sariah Bhat M.D. DR: AUSTEN JOB#: [id number] CC:
[2019-10-03] MEDS: Minocycline HCl 50mg cap ORAL SCH ×2 (05:44→17:55)
[2019-10-03] MEDS: sitaGLIPtin 50mg tab GT SCH (05:44)
[2019-10-03] MEDS: NovoLOG Insulin Flexpen SUBQ SCH ×4 (05:46→23:09)
[2019-10-03 07:25] LABS: BASOPHILS % (AUTO) 0.3 % (0.0-2.0); EOSINOPHILS % (AUTO) 4.1 % (0.0-3.0); HEMATOCRIT 27.1 % (42.0-52.0); HEMOGLOBIN 8.7 G/DL (14.2-18.0); LYMPHOCYTES % (AUTO) 9.3 % (20.0-45.0); MEAN CORPUSCULAR VOLUME 87 FL (80-99); MONOCYTES % (AUTO) 5.2 % (1.0-10.0); NEUTROPHILS % (AUTO) 81.1 % (45.0-75.0); PLATELET COUNT 375 K/UL (150-450); RED BLOOD COUNT 3.12 M/UL (4.70-6.10); RED CELL DISTRIBUTION WIDTH 16.9 % (11.6-14.8); WHITE BLOOD COUNT 13.6 K/UL (4.8-10.8)
[2019-10-03 07:28] LABS: ALANINE AMINOTRANSFERASE 23 U/L (12-78); ALBUMIN 2.2 G/DL (3.4-5.0); ALBUMIN/GLOBULIN RATIO 0.4 (1.0-2.7); ALKALINE PHOSPHATASE 132 U/L (46-116); ANION GAP 8 mmol/L (5-15); ASPARTATE AMINO TRANSFERASE 29 U/L (15-37); BILIRUBIN,TOTAL 0.4 MG/DL (0.2-1.0); BLOOD UREA NITROGEN 13 mg/dL (7-18); CALCIUM 9.9 MG/DL (8.5-10.1); CARBON DIOXIDE 25 MMOL/L (21-32); CHLORIDE 96 MMOL/L (98-107); CREATININE 1.7 MG/DL (0.55-1.30); PHOSPHORUS 3.2 MG/DL (2.5-4.9); POTASSIUM 5.7 MMOL/L (3.5-5.1); SODIUM 129 MMOL/L (136-145)
[2019-10-03] MEDS: SULFAMETHOXAZOLE IV SCH ×3 (07:50→23:08)
[2019-10-03] MEDS: D5W IV SCH ×3 (07:50→23:08)
[2019-10-03] MEDS: TRIMETHOPRIM IV SCH ×3 (07:50→23:08)
[2019-10-03] MEDS ORDERED: Sodium Polystyrene Sulfonate 15gm Powder GT SCH (08:15)
--- NOTE | 2019-10-03 09:14 | Urology Progress Note ---
Assessment/Plan Status: stable Assessment/Plan: 1. Urinary retention. 2. BPH. 3. Neurogenic bladder. 4. Incontinence. 5. Pyuria/UTI/colonized. 6. Hematuria. 7. Proteinuria. 8. Renal insufficiency, acute possibly on chronic. 9. Renal cyst. 10. Nephrolithiasis. 11. Renal fullness. 12. Bladder calcifications. 13. POD # 16, cysto/optic urethrotomy. monitor clinically kendrick placed 09/17 hand irrigated and do PRN abx as ordered, pr ID diflucan added monitor WBC f/u on last blood cx renal fxn stable Subjective Allergies: Coded Allergies: AZTREONAM (Verified Allergy, Unknown, 05/13/18) Subjective all noted, kendrick draining, non-verbal Objective Last 24 Hour Vital Signs Date Time Temp Pulse Resp B/P (MAP) Pulse Ox O2 Delivery O2 Flow Rate FiO2 10/03/19 08:35 117 14 30 10/03/19 06:54 129 15 30 10/03/19 05:05 99.0 10/03/19 05:05 99.0 10/03/19 04:55 118 16 30 10/03/19 04:00 Mechanical Ventilator 10/03/19 04:00 99.6 121 18 130/60 (83) 100 10/03/19 04:00 30 10/03/19 03:36 127 10/03/19 02:39 115 15 30 10/03/19 01:04 113 14 30 10/03/19 00:57 100.2 10/03/19 00:00 101.0 110 18 118/69 (85) 100 10/03/19 00:00 30 10/03/19 00:00 Mechanical Ventilator 10/02/19 23:37 109 10/02/19 22:50 111 15 30 10/02/19 21:01 116 14 30 10/02/19 20:30 100.3 10/02/19 20:00 30 10/02/19 20:00 102.6 119 16 114/60 (78) 100 10/02/19 20:00 Mechanical Ventilator 10/02/19 19:49 119 10/02/19 19:00 119 17 30 10/02/19 17:54 116 14 30 10/02/19 16:00 30 10/02/19 16:00 120 10/02/19 16:00 98.6 115 15 106/59 (75) 100 10/02/19 16:00 Mechanical Ventilator 10/02/19 15:43 124 16 30 10/02/19 13:58 119 14 30 10/02/19 12:00 112 10/02/19 12:00 100.0 115 14 106/64 (78) 100 10/02/19 12:00 30 10/02/19 12:00 Mechanical Ventilator 10/02/19 11:50 114 15 30 10/02/19 09:45 122 15 30 Intake and Output 10/02/19 10/03/19 19:00 07:00 Intake Total 2709.749 ml 1860.666 ml Output Total 1400 ml 2550 ml Balance 1309.749 ml -689.334 ml Free Water 300 ml 100 ml IV Total 1629.749 ml 980.666 ml Tube Feeding 780 ml 780 ml Output Urine Total 1100 ml 2400 ml Stool Total 300 ml 150 ml Microbiology Date/Time Source Procedure Growth Status 09/29/19 23:30 Blood Blood Culture - Preliminary NO GROWTH AFTER 72 HOURS Resulted 09/15/19 11:00 Nasal Nares - Final Complete 09/15/19 11:00 Nasal Nares - Final Complete 09/25/19 19:00 Stool Clostridium difficile Toxin Assay - Final Complete 09/25/19 19:00 Urine,Clean Catch Urine Culture - Final Camelia Parapsilosis Complete 09/14/19 09:10 Rectum VRE Culture - Final Enterococcus Faecium - Vre Complete Current Medications Medications (Trade) Dose Ordered Sig/Va Route PRN Reason Start Time Stop Time Status Last Admin Dose Admin Acetaminophen (Tylenol) 650 mg Q4H PRN GT Mild Pain/Temp > 100.6 09/16/19 18:42 10/16/19 18:41 10/03/19 04:35 Apixaban (Eliquis) 5 mg BID GT 10/02/19 18:02 11/01/19 18:01 10/02/19 18:18 Artificial Tears (Akwa-Tears) 2 drop Q12HR BOTH EYES 09/16/19 21:00 10/14/19 20:59 10/02/19 20:00 Baclofen (Lioresal) 10 mg THREE TIMES A DAY GT 09/17/19 09:00 10/14/19 17:59 10/02/19 17:28 Calcitonin [place] (Miacalcin) 1 sprays DAILY NASAL 09/18/19 12:00 10/18/19 11:59 10/02/19 09:30 Chlorhexidine Gluconate (Rebecca-Hex 2%) 1 applic DAILY@1999 TOPIC 09/26/19 20:00 10/26/19 19:59 10/02/19 19:59 Clobetasol Propionate (Temovate) 1 applic EVERY 12 HOURS TOPIC 09/16/19 21:00 10/14/19 20:59 10/02/19 20:00 Dextrose (Dextrose 50%) 25 ml Q30M PRN IV Hypoglycemia 09/16/19 18:45 10/14/19 14:44 Dextrose (Dextrose 50%) 50 ml Q30M PRN IV Hypoglycemia 09/16/19 18:45 10/14/19 14:44 Famotidine (Pepcid) 20 mg BID GT 09/18/19 18:00 10/18/19 17:59 10/02/19 17:28 Fenofibrate (Tricor) 145 mg DAILY ORAL 09/17/19 09:00 10/15/19 08:59 10/02/19 09:31 Fluconazole (Diflucan) 400 mg DAILY GT 10/02/19 09:00 10/06/19 13:46 10/02/19 09:30 Insulin Aspart (NovoLOG) EVERY 6 HOURS SUBQ 09/20/19 12:00 10/14/19 16:29 10/03/19 05:46 Levetiracetam (Keppra) 1,000 mg Q8H GT 09/19/19 02:00 10/19/19 01:59 10/03/19 01:36 Minocycline HCl (Minocin) 100 mg Q12HR@0600,1800 ORAL 10/01/19 06:00 10/08/19 05:59 10/03/19 05:44 Ondansetron HCl (Zofran) 4 mg Q6H PRN IVP Nausea & Vomiting 09/16/19 18:44 10/16/19 18:43 Polyethylene Glycol (Miralax) 17 gm DAILYPRN PRN GT Constipation 09/16/19 18:44 10/16/19 18:43 Sitagliptin Phosphate (Januvia) 50 mg ACBREAKFAST GT 09/17/19 06:30 10/15/19 06:29 10/03/19 05:44 Sodium Polystyrene Sulfonate (Kayexalate) 45 gm ONCE GT 10/03/19 08:15 10/03/19 10:15 Sodium Chloride 1,000 ml @ 100 mls/hr Q10H IV 10/03/19 08:15 11/02/19 08:14 Tamsulosin HCl (Flomax) 0.4 mg DAILY ORAL 09/17/19 09:00 10/17/19 08:59 10/02/19 09:31 Trimethoprim/ Sulfamethoxazole 28 ml/Dextrose 578 ml @ 385.333 mls/hr [id number] BACTRIM IV 10/02/19 16:00 10/09/19 15:59 10/03/19 07:50 Laboratory Tests 10/02/19 15:45: Urine Color Pale yellow, Urine Appearance Slightly cloudy, Urine pH 8, Urine Specific [place] 1.010, Urine Protein 3+H, Urine Glucose (UA) 3+H, Urine Ketones Negative, Urine Blood 4+H, Urine Nitrite Negative, Urine Bilirubin Negative, Urine Urobilinogen Normal, Urine Leukocyte Esterase 3+H, Urine RBC 10- 15H, Urine WBC 30-40H, Urine Squamous Epithelial Cells None, Urine Bacteria ModerateH 10/03/19 03:59: White Blood Count 13.6H, Red Blood Count 3.12L, Hemoglobin 8.7L, Hematocrit 27.1L, Mean Corpuscular Volume 87, Mean Corpuscular Hemoglobin 27.8, Mean Corpuscular Hemoglobin Concent 32.0, Red Cell Distribution Width 16.9H, Platelet Count 375, Mean Platelet Volume 7.1, Neutrophils (%) (Auto) 81.1H, Lymphocytes (%) (Auto) 9.3L, Monocytes (%) (Auto) 5.2, Eosinophils (%) (Auto) 4.1H, Basophils (%) (Auto) 0.3, Activated Partial Thromboplast Time [Pending], Sodium Level 129L, Potassium Level 5.7H, Chloride Level 96L, Carbon Dioxide Level 25, Anion Gap 8, Blood Urea Nitrogen 13, Creatinine 1.7H, Estimat Glomerular Filtration Rate 51.5, Glucose Level 333H, Uric Acid 3.9, Calcium Level 9.9, Phosphorus Level 3.2, Magnesium Level 2.2, Total Bilirubin 0.4, Aspartate Amino Transf (AST/SGOT) 29, Alanine Aminotransferase (ALT/SGPT) 23, Alkaline Phosphatase 132H, C-Reactive Protein, Quantitative 35.3H, Pro-B-Type Natriuretic Peptide 138H, Total Protein 8.1, Albumin 2.2L, Globulin 5.9, Albumin /Globulin Ratio 0.4L Height (Feet): 5 Height (Inches): 7.00 Weight (Pounds): 201 Objective exam stable kendrick indwelling, yellow/hermelindo urine, some debris CT C/A/P (09/28) noted Manohar Villarreal MD Oct 03, 2019 09:14
[2019-10-03] MEDS: Fluconazole 100mg tab GT SCH (09:28)
[2019-10-03] MEDS: Eliquis 5mg tablet GT SCH ×2 (09:29→17:55)
[2019-10-03] MEDS: Tamsulosin 0.4mg cap ORAL SCH (09:29)
[2019-10-03] MEDS: Clobetasol Cream 0.05% 15gm TOPIC SCH ×2 (09:34→20:35)
--- NOTE | 2019-10-03 11:11 | Pulmonolgy Critical Care Note ---
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 (8) Diabetes mellitus (9) Vegetative state Respiratory: adjust tidal volume, monitor respiratory rate, adjust FIO2 Cardiac: continue to monitor HR/BP Renal: F/U I&O, keep IV fluid, check electrolytes Infectious Disease: check cultures, continue antibiotics Gastrointestinal: continue feedings/current rate Endocrine: monitor blood sugar Hematologic: monitor H/H, transfuse if hgb<8.5 Neurologic: PRN Ativan, keep patient comfortable Affect: PRN ativan Prophylaxis: Protonix Notes Reviewed: intake coordinator, cardio, ID Discussed with: nurses, consultants, case investigatormanager of procurement - Objective Last 24 Hour Vital Signs Date Time Temp Pulse Resp B/P (MAP) Pulse Ox O2 Delivery O2 Flow Rate FiO2 10/03/19 10:43 118 17 30 10/03/19 08:35 117 14 30 10/03/19 08:00 Mechanical Ventilator 10/03/19 08:00 99.4 121 15 121/78 (92) 100 10/03/19 08:00 30 10/03/19 06:54 129 15 30 10/03/19 05:05 99.0 10/03/19 05:05 99.0 10/03/19 04:55 118 16 30 10/03/19 04:00 Mechanical Ventilator 10/03/19 04:00 99.6 121 18 130/60 (83) 100 10/03/19 04:00 30 10/03/19 03:36 127 10/03/19 02:39 115 15 30 10/03/19 01:04 113 14 30 10/03/19 00:57 100.2 10/03/19 00:00 101.0 110 18 118/69 (85) 100 10/03/19 00:00 30 10/03/19 00:00 Mechanical Ventilator 10/02/19 23:37 109 10/02/19 22:50 111 15 30 10/02/19 21:01 116 14 30 10/02/19 20:30 100.3 10/02/19 20:00 30 10/02/19 20:00 102.6 119 16 114/60 (78) 100 10/02/19 20:00 Mechanical Ventilator 10/02/19 19:49 119 10/02/19 19:00 119 17 30 10/02/19 17:54 116 14 30 10/02/19 16:00 30 10/02/19 16:00 120 10/02/19 16:00 98.6 115 15 106/59 (75) 100 10/02/19 16:00 Mechanical Ventilator 10/02/19 15:43 124 16 30 10/02/19 13:58 119 14 30 10/02/19 12:00 112 10/02/19 12:00 100.0 115 14 106/64 (78) 100 10/02/19 12:00 30 10/02/19 12:00 Mechanical Ventilator 10/02/19 11:50 114 15 30 Status: obtunded Condition: critical HEENT: atraumatic Neck: full ROM Lungs: rales, rhonchi Heart: HR/BP stable Abdomen: soft, non-tender Extremities: no C/C/E Micro: Microbiology Date/Time Source Procedure Growth Status 10/02/19 15:45 Urine,Clean Catch Urine Culture - Preliminary NO GROWTH Resulted Accucheck: 342 Critical Care - Subjective ROS Limited/Unobtainable: Yes Condition: critical EKG Rhythm: Sinus Rhythm FI02: 30 Vent Support Breath Rate: 14 Vent Support Mode: AC Vent Tidal Volume: 600 Sputum Amount: Small PEEP: 5.0 PIP: 32 Tube Feeding Amount: 65 I&O: Intake and Output 10/02/19 10/03/19 19:00 07:00 Intake Total 2709.749 ml 1860.666 ml Output Total 1400 ml 2550 ml Balance 1309.749 ml -689.334 ml Free Water 300 ml 100 ml IV Total 1629.749 ml 980.666 ml Tube Feeding 780 ml 780 ml Output Urine Total 1100 ml 2400 ml Stool Total 300 ml 150 ml Labs: Laboratory Tests Test 10/02/19 15:45 10/03/19 03:59 Urine Color Pale yellow Urine Appearance Slightly cloudy Urine pH 8 (4.5-8.0) Urine Specific [place] 1.010 (1.005-1.035) Urine Protein 3+ (NEGATIVE) H Urine Glucose (UA) 3+ (NEGATIVE) H Urine Ketones Negative (NEGATIVE) Urine Blood 4+ (NEGATIVE) H Urine Nitrite Negative (NEGATIVE) Urine Bilirubin Negative (NEGATIVE) Urine Urobilinogen Normal MG/DL (0.0-1.0) Urine Leukocyte Esterase 3+ (NEGATIVE) H Urine RBC 10-15 /HPF (0 - 0) H Urine WBC 30-40 /HPF (0 - 0) H Urine Squamous Epithelial Cells None /LPF (NONE/OCC) Urine Bacteria Moderate /HPF (NONE) H White Blood Count 13.6 K/UL (4.8-10.8) H Red Blood Count 3.12 M/UL (4.70-6.10) L Hemoglobin 8.7 G/DL (14.2-18.0) L Hematocrit 27.1 % (42.0-52.0) L Mean Corpuscular Volume 87 FL (80-99) Mean Corpuscular Hemoglobin 27.8 PG (27.0-31.0) Mean Corpuscular Hemoglobin Concent 32.0 G/DL (32.0-36.0) Red Cell Distribution Width 16.9 % (11.6-14.8) H Platelet Count 375 K/UL (150-450) Mean Platelet Volume 7.1 FL (6.5-10.1) Neutrophils (%) (Auto) 81.1 % (45.0-75.0) H Lymphocytes (%) (Auto) 9.3 % (20.0-45.0) L Monocytes (%) (Auto) 5.2 % (1.0-10.0) Eosinophils (%) (Auto) 4.1 % (0.0-3.0) H Basophils (%) (Auto) 0.3 % (0.0-2.0) Activated Partial Thromboplast Time 35 SEC (23-33) H Sodium Level 129 MMOL/L (136-145) L Potassium Level 5.7 MMOL/L (3.5-5.1) H Chloride Level 96 MMOL/L (98-107) L Carbon Dioxide Level 25 MMOL/L (21-32) Anion Gap 8 mmol/L (5-15) Blood Urea Nitrogen 13 mg/dL (7-18) Creatinine 1.7 MG/DL (0.55-1.30) H Estimat Glomerular Filtration Rate 51.5 mL/min (>60) Glucose Level 333 MG/DL (74-106) H Uric Acid 3.9 MG/DL (2.6-7.2) Calcium Level 9.9 MG/DL (8.5-10.1) Phosphorus Level 3.2 MG/DL (2.5-4.9) Magnesium Level 2.2 MG/DL (1.8-2.4) Total Bilirubin 0.4 MG/DL (0.2-1.0) Aspartate Amino Transf (AST/SGOT) 29 U/L (15-37) Alanine Aminotransferase (ALT/SGPT) 23 U/L (12-78) Alkaline Phosphatase 132 U/L (46-116) H C-Reactive Protein, Quantitative 35.3 mg/dL (0.00-0.90) H Pro-B-Type Natriuretic Peptide 138 pg/mL (0-125) H Total Protein 8.1 G/DL (6.4-8.2) Albumin 2.2 G/DL (3.4-5.0) L Globulin 5.9 g/dL Albumin/Globulin Ratio 0.4 (1.0-2.7) L Nico Goetz MD Oct 03, 2019 11:11
--- NOTE | 2019-10-03 11:49 | Diagnostic Imaging Report ---
Indication: Dyspnea Technique: One view of the chest Comparison: 09/26/2019 post PICC radiograph Findings: Retrocardiac consolidation persists. Likely small left pleural effusion is unchanged. Left arm PICC, tracheostomy remains. Impression: Unchanged, over 7 days, findings as above.
--- NOTE | 2019-10-03 12:15 | Progress Note ---
DATE: 10/03/2019 SUBJECTIVE: PHYSICAL EXAMINATION: VITAL SIGNS: Blood pressure is 108/59, pulse is 100, respirations of 18, and temperature was 98. HEENT: Eyes were normal. ENT, mucous membranes were moist and intact. NECK: Supple with no JVD without lymph nodes. Tracheostomy site is clean. LUNGS: Clear without rhonchi, rales, or wheezing. Secretions are small, thin, and beck[place]. HEART: Normal sounds with regular beats. There is no S3, S4, or pericardial rub. ABDOMEN: Soft and nontender with normal bowel sounds. Gastrostomy site is clean. EXTREMITIES: Warm without cyanosis, clubbing, or edema. LABORATORY DATA: His hemoglobin is 8.9, hematocrit 27.9 with MCV of 86, WBC of 18.7, and platelets of 329,000. BUN and creatinine are 9 and 1.5 respectively. Sodium is 128, potassium 4.8, chloride 95, and CO2 is 29. IMPRESSION: The patient has hyponatremia . Repeat laboratory tests will be done in the a.m. We will continue with the same regimen . Sariah Bhat M.D. DR: KETAN JOB#: [id number] CC:
--- NOTE | 2019-10-03 13:02 | Nephrology Progress Note ---
Assessment/Plan Problem List: (1) Renal failure (ARF), acute on chronic Assessment: Cr rising and hyperKalemia (2) Urinary retention (3) Acute on chronic respiratory failure (4) Hypercalcemia Assessment Hypercalcemia Urinary retention, BPH , Acute on chronic renal failure Electrolyte imbalance Colostomy DM PEG Vegetative state Acute on chronic respiratory failure Plan 3% Saline and NS kayexelate need to avoid nephrotoxics as possible urine studies K and Phos and Mag supplements as needed pulm support Aredia for high Ca on 09/18 redose today 09/23 Subjective ROS Limited/Unobtainable: Yes Objective Objective Last 24 Hour Vital Signs Date Time Temp Pulse Resp B/P (MAP) Pulse Ox O2 Delivery O2 Flow Rate FiO2 10/03/19 10:43 118 17 30 10/03/19 08:35 117 14 30 10/03/19 08:00 Mechanical Ventilator 10/03/19 08:00 99.4 121 15 121/78 (92) 100 10/03/19 08:00 30 10/03/19 06:54 129 15 30 10/03/19 05:05 99.0 10/03/19 05:05 99.0 10/03/19 04:55 118 16 30 10/03/19 04:00 Mechanical Ventilator 10/03/19 04:00 99.6 121 18 130/60 (83) 100 10/03/19 04:00 30 10/03/19 03:36 127 10/03/19 02:39 115 15 30 10/03/19 01:04 113 14 30 10/03/19 00:57 100.2 10/03/19 00:00 101.0 110 18 118/69 (85) 100 10/03/19 00:00 30 10/03/19 00:00 Mechanical Ventilator 10/02/19 23:37 109 10/02/19 22:50 111 15 30 10/02/19 21:01 116 14 30 10/02/19 20:30 100.3 10/02/19 20:00 30 10/02/19 20:00 102.6 119 16 114/60 (78) 100 10/02/19 20:00 Mechanical Ventilator 10/02/19 19:49 119 10/02/19 19:00 119 17 30 10/02/19 17:54 116 14 30 10/02/19 16:00 30 10/02/19 16:00 120 10/02/19 16:00 98.6 115 15 106/59 (75) 100 10/02/19 16:00 Mechanical Ventilator 10/02/19 15:43 124 16 30 10/02/19 13:58 119 14 30 Intake and Output 10/02/19 10/03/19 19:00 07:00 Intake Total 2709.749 ml 1860.666 ml Output Total 1400 ml 2550 ml Balance 1309.749 ml -689.334 ml Free Water 300 ml 100 ml IV Total 1629.749 ml 980.666 ml Tube Feeding 780 ml 780 ml Output Urine Total 1100 ml 2400 ml Stool Total 300 ml 150 ml Laboratory Tests 10/02/19 15:45: Urine Color Pale yellow, Urine Appearance Slightly cloudy, Urine pH 8, Urine Specific [place] 1.010, Urine Protein 3+H, Urine Glucose (UA) 3+H, Urine Ketones Negative, Urine Blood 4+H, Urine Nitrite Negative, Urine Bilirubin Negative, Urine Urobilinogen Normal, Urine Leukocyte Esterase 3+H, Urine RBC 10- 15H, Urine WBC 30-40H, Urine Squamous Epithelial Cells None, Urine Bacteria ModerateH 10/03/19 03:59: White Blood Count 13.6H, Red Blood Count 3.12L, Hemoglobin 8.7L, Hematocrit 27.1L, Mean Corpuscular Volume 87, Mean Corpuscular Hemoglobin 27.8, Mean Corpuscular Hemoglobin Concent 32.0, Red Cell Distribution Width 16.9H, Platelet Count 375, Mean Platelet Volume 7.1, Neutrophils (%) (Auto) 81.1H, Lymphocytes (%) (Auto) 9.3L, Monocytes (%) (Auto) 5.2, Eosinophils (%) (Auto) 4.1H, Basophils (%) (Auto) 0.3, Activated Partial Thromboplast Time 35H, Sodium Level 129L, Potassium Level 5.7H, Chloride Level 96L, Carbon Dioxide Level 25, Anion Gap 8, Blood Urea Nitrogen 13, Creatinine 1.7H, Estimat Glomerular Filtration Rate 51.5, Glucose Level 333H, Uric Acid 3.9, Calcium Level 9.9, Phosphorus Level 3.2, Magnesium Level 2.2, Total Bilirubin 0.4, Aspartate Amino Transf (AST/SGOT) 29, Alanine Aminotransferase (ALT/SGPT) 23, Alkaline Phosphatase 132H, C-Reactive Protein, Quantitative 35.3H, Pro-B-Type Natriuretic Peptide 138H, Total Protein 8.1, Albumin 2.2L, Globulin 5.9, Albumin /Globulin Ratio 0.4L Height (Feet): 5 Height (Inches): 7.00 Weight (Pounds): 201 General Appearance: no apparent distress EENT: other Neck: other - trach Cardiovascular: tachycardia Respiratory/Chest: decreased breath sounds Abdomen: distended Objective no change Cl Zaragoza MD Oct 03, 2019 13:02
--- NOTE | 2019-10-03 15:45 | Infectious Diseases Prog Note ---
Assessment/Plan Assessment/Plan Assessment: Sepsis, recurrent- MDR K.pna bacteremia- ?source- fluid collection with serous fluid- r/o abscess, cx pending -09/30 SP US guided aspiration: Small amount of serous fluid aspirated from left flank fluid collection. No gisselle pus so collection is presumably not an abscess; no drain placed. Note, however, the presence of considerable residual tissue with hyperemia. This most likely represents hyperemic scar tissue but this should be followed up to exclude tumor --cx and cytology p Probable cystitis/pyelonephritis -09/28 CT c/ab/p: Left lower lobe segmental and subsegmental pulmonary emboli . Bibasilar atelectasis/consolidations. 10 mm low-density lesion in right thyroid. Heterogeneous large areas of hypoattenuation in the right lobe of the liver, maybe fatty changes, correlate for hepatitis or other process. Contracted gallbladder with thickened enhancing wall. Left lateral abdominal wall musculature 1.5 x 2.2 cm fluid collection with enhancing worrisome for an abscess. Bilateral renal stones, staghorn type in the left kidney, nonobstructive. Mild fullness of the right renal pelvis. Mild bilateral perinephric stranding, correlate for infection.Kendrick catheter in urinary bladder. Thickening of the urinary bladder with mild stranding may be cystitis. A few small calcifications in the left urinary bladder base. -09/29 Bx 1/2 Gram variable rods -09/27 Bcx 2/4 CRE K.pna (I Genta; S bactrim, tigecycline) ; -09/25 Cdiff neg CXR: Left pleural effusion is unchanged. Left perihilar atelectasis is unchanged. Tracheostomy again demonstrated. Bcx 4/4 MDR K. pna (S only to tigecycline, bactrim; R Meropenem, Amikacin, Colistin, Polymixin B) u/a wbc 15-20, nit neg, leuk +2; ucx C. parapsilopsis Fever, persistent Leukocytosis, recurrent Pulmonary Emboli UTI, sp rx Probable PNA,sp Rx -Bcx Neg -u/a wbc tnct, nit neg, leuk +3; ucx C. parasilopsis -sp cx ESBL P. mirabilis, MDR P. stuarti (S Cefepime, Zosyn, Ertapenem) -CXR: Geographic density overlying the right upper lung. This likely represents overlying soft tissue although cannot exclude an underlying consolidation/pneumonia. Pulmonary vascular congestion. Small left pleural effusion. Subsegmental atelectasis versus infiltrate in the left lung base. -Influenza A/B ag neg DIVYA, SP Mild AST elevation, SP -Abd uS: Hepatomegaly with fatty infiltration. Suspected nonobstructive stone left kidney. Left renal cyst Sacral decubitus hx of recurrent UTIs -UCx 11/17/18 P.a. (R Levo, otherwise S) - CT abd 11/19/18 3 mm distal right ureteral calculus, minimal resultant hydronephrosis. 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 now w/ persistent vegetative state dysphagia s/p GT Chronic resp failure - vent/trach dependent ICH COPD DM Seizure disorder BPH Dysphagia, G tube Colostomy SNF resident Plan: -Continue IV Bactrim #5 and add PO Minocycline #4 for MDR/CRE K.pna bacteremia -Cont PO fluconazole #5 for likely jesús cystitis/pyelo (+staghorn calculus, chronic kendrick, prolonged antibiotic treatment) -Add empiric Daptomycin from gram variable rods pending ID -09/30 SP IV POlymixin B #2 -09/29 SP Meropenem #5, IV Amikacin #3 -09/27 SP IV Vancomycin #3 -/ SP ertapenem #4 - 09/19/10 S/P Meropenem - 09/17 SP IV Vancomycin #4 - 09/14 SP Cefepime x1 -f/u cx -Monitor CBC/CMP, temperatures -PEG/Trach care -aspiration precautions -wound care -Repeat Bcx 2 -f/u fluid collection cultuers and cytology -CPK am Thank you for this consultation. Will continue to follow along with you. Discussed with RN Subjective Allergies: Coded Allergies: AZTREONAM (Verified Allergy, Unknown, 05/13/18) Subjective Tm 101 wbc improving bacteremic Cr increased Objective Vital Signs Last 24 Hour Vital Signs Date Time Temp Pulse Resp B/P (MAP) Pulse Ox O2 Delivery O2 Flow Rate FiO2 10/03/19 14:55 113 19 30 10/03/19 13:04 113 15 30 10/03/19 12:00 Mechanical Ventilator 10/03/19 12:00 98.1 117 15 122/78 (93) 100 10/03/19 12:00 30 10/03/19 11:40 116 10/03/19 10:43 118 17 30 10/03/19 08:35 117 14 30 10/03/19 08:00 Mechanical Ventilator 10/03/19 08:00 99.4 121 15 121/78 (92) 100 10/03/19 08:00 30 10/03/19 08:00 118 10/03/19 06:54 129 15 30 10/03/19 05:05 99.0 10/03/19 05:05 99.0 10/03/19 04:55 118 16 30 10/03/19 04:00 Mechanical Ventilator 10/03/19 04:00 99.6 121 18 130/60 (83) 100 10/03/19 04:00 30 10/03/19 03:36 127 10/03/19 02:39 115 15 30 10/03/19 01:04 113 14 30 10/03/19 00:57 100.2 10/03/19 00:00 101.0 110 18 118/69 (85) 100 10/03/19 00:00 30 10/03/19 00:00 Mechanical Ventilator 10/02/19 23:37 109 10/02/19 22:50 111 15 30 10/02/19 21:01 116 14 30 10/02/19 20:30 100.3 10/02/19 20:00 30 10/02/19 20:00 102.6 119 16 114/60 (78) 100 10/02/19 20:00 Mechanical Ventilator 10/02/19 19:49 119 10/02/19 19:00 119 17 30 10/02/19 17:54 116 14 30 10/02/19 16:00 30 10/02/19 16:00 120 10/02/19 16:00 98.6 115 15 106/59 (75) 100 10/02/19 16:00 Mechanical Ventilator 10/02/19 15:43 124 16 30 Height (Feet): 5 Height (Inches): 7.00 Weight (Pounds): 201 Objective GENERAL: Noncommunicative. Tongue fasciculation. Moderate edema. LUNGS: Diminished breath sounds. CARDIAC: Regular rhythm. Rapid rate. Normal S1, S2. ABDOMEN: Soft with G-tube and colostomy bag. Microbiology Date/Time Source Procedure Growth Status 10/02/19 18:20 Blood Blood Culture - Preliminary Resulted 10/02/19 15:45 Urine,Clean Catch Urine Culture - Preliminary NO GROWTH Resulted Laboratory Tests Test 10/02/19 15:45 10/03/19 03:59 Urine Color Pale yellow Urine Appearance Slightly cloudy Urine pH 8 (4.5-8.0) Urine Specific Rolfe 1.010 (1.005-1.035) Urine Protein 3+ (NEGATIVE) H Urine Glucose (UA) 3+ (NEGATIVE) H Urine Ketones Negative (NEGATIVE) Urine Blood 4+ (NEGATIVE) H Urine Nitrite Negative (NEGATIVE) Urine Bilirubin Negative (NEGATIVE) Urine Urobilinogen Normal MG/DL (0.0-1.0) Urine Leukocyte Esterase 3+ (NEGATIVE) H Urine RBC 10-15 /HPF (0 - 0) H Urine WBC 30-40 /HPF (0 - 0) H Urine Squamous Epithelial Cells None /LPF (NONE/OCC) Urine Bacteria Moderate /HPF (NONE) H White Blood Count 13.6 K/UL (4.8-10.8) H Red Blood Count 3.12 M/UL (4.70-6.10) L Hemoglobin 8.7 G/DL (14.2-18.0) L Hematocrit 27.1 % (42.0-52.0) L Mean Corpuscular Volume 87 FL (80-99) Mean Corpuscular Hemoglobin 27.8 PG (27.0-31.0) Mean Corpuscular Hemoglobin Concent 32.0 G/DL (32.0-36.0) Red Cell Distribution Width 16.9 % (11.6-14.8) H Platelet Count 375 K/UL (150-450) Mean Platelet Volume 7.1 FL (6.5-10.1) Neutrophils (%) (Auto) 81.1 % (45.0-75.0) H Lymphocytes (%) (Auto) 9.3 % (20.0-45.0) L Monocytes (%) (Auto) 5.2 % (1.0-10.0) Eosinophils (%) (Auto) 4.1 % (0.0-3.0) H Basophils (%) (Auto) 0.3 % (0.0-2.0) Activated Partial Thromboplast Time 35 SEC (23-33) H Sodium Level 129 MMOL/L (136-145) L Potassium Level 5.7 MMOL/L (3.5-5.1) H Chloride Level 96 MMOL/L (98-107) L Carbon Dioxide Level 25 MMOL/L (21-32) Anion Gap 8 mmol/L (5-15) Blood Urea Nitrogen 13 mg/dL (7-18) Creatinine 1.7 MG/DL (0.55-1.30) H Estimat Glomerular Filtration Rate 51.5 mL/min (>60) Glucose Level 333 MG/DL (74-106) H Uric Acid 3.9 MG/DL (2.6-7.2) Calcium Level 9.9 MG/DL (8.5-10.1) Phosphorus Level 3.2 MG/DL (2.5-4.9) Magnesium Level 2.2 MG/DL (1.8-2.4) Total Bilirubin 0.4 MG/DL (0.2-1.0) Aspartate Amino Transf (AST/SGOT) 29 U/L (15-37) Alanine Aminotransferase (ALT/SGPT) 23 U/L (12-78) Alkaline Phosphatase 132 U/L (46-116) H C-Reactive Protein, Quantitative 35.3 mg/dL (0.00-0.90) H Pro-B-Type Natriuretic Peptide 138 pg/mL (0-125) H Total Protein 8.1 G/DL (6.4-8.2) Albumin 2.2 G/DL (3.4-5.0) L Globulin 5.9 g/dL Albumin/Globulin Ratio 0.4 (1.0-2.7) L Current Medications Medications (Trade) Dose Ordered Sig/Va Route PRN Reason Start Time Stop Time Status Last Admin Dose Admin Acetaminophen (Tylenol) 650 mg Q4H PRN GT Mild Pain/Temp > 100.6 09/16/19 18:42 10/16/19 18:41 10/03/19 04:35 Apixaban (Eliquis) 5 mg BID GT 10/02/19 18:02 11/01/19 18:01 10/03/19 09:29 Artificial Tears (Akwa-Tears) 2 drop Q12HR BOTH EYES 09/16/19 21:00 10/14/19 20:59 10/03/19 09:34 Baclofen (Lioresal) 10 mg THREE TIMES A DAY GT 09/17/19 09:00 10/14/19 17:59 10/03/19 12:47 Calcitonin [place] (Miacalcin) 1 sprays DAILY NASAL 09/18/19 12:00 10/18/19 11:59 10/03/19 09:34 Chlorhexidine Gluconate (Rebecca-Hex 2%) 1 applic DAILY@1999 TOPIC 09/26/19 20:00 10/26/19 19:59 10/02/19 19:59 Clobetasol Propionate (Temovate) 1 applic EVERY 12 HOURS TOPIC 09/16/19 21:00 10/14/19 20:59 10/03/19 09:34 Dextrose (Dextrose 50%) 25 ml Q30M PRN IV Hypoglycemia 09/16/19 18:45 10/14/19 14:44 Dextrose (Dextrose 50%) 50 ml Q30M PRN IV Hypoglycemia 09/16/19 18:45 10/14/19 14:44 Famotidine (Pepcid) 20 mg BID GT 09/18/19 18:00 10/18/19 17:59 10/03/19 09:28 Fenofibrate (Tricor) 145 mg DAILY ORAL 09/17/19 09:00 10/15/19 08:59 10/03/19 09:28 Fluconazole (Diflucan) 400 mg DAILY GT 10/02/19 09:00 10/06/19 13:46 10/03/19 09:28 Insulin Aspart (NovoLOG) EVERY 6 HOURS SUBQ 09/20/19 12:00 10/14/19 16:29 10/03/19 12:49 Levetiracetam (Keppra) 1,000 mg Q8H GT 09/19/19 02:00 10/19/19 01:59 10/03/19 09:28 Minocycline HCl (Minocin) 100 mg Q12HR@0600,1800 ORAL 10/01/19 06:00 10/08/19 05:59 10/03/19 05:44 Ondansetron HCl (Zofran) 4 mg Q6H PRN IVP Nausea & Vomiting 09/16/19 18:44 10/16/19 18:43 Polyethylene Glycol (Miralax) 17 gm DAILYPRN PRN GT Constipation 09/16/19 18:44 10/16/19 18:43 Sitagliptin Phosphate (Januvia) 50 mg ACBREAKFAST GT 09/17/19 06:30 10/15/19 06:29 10/03/19 05:44 Sodium Chloride 1,000 ml @ 100 mls/hr Q10H IV 10/03/19 08:15 11/02/19 08:14 10/03/19 09:33 Tamsulosin HCl (Flomax) 0.4 mg DAILY ORAL 09/17/19 09:00 10/17/19 08:59 10/03/19 09:29 Trimethoprim/ Sulfamethoxazole 28 ml/Dextrose 578 ml @ 385.333 mls/hr [id number] BACTRIM IV 10/02/19 16:00 10/09/19 15:59 10/03/19 07:50 Maribel Barrera M.D. Oct 03, 2019 15:45
[2019-10-03] MEDS: DAPTOmycin 550 MG in NS 55 ML IV SCH (18:04)
[2019-10-03] MEDS: Dyna-Hex 2% Top Sol 2oz TOPIC SCH (20:35)
--- NOTE | 2019-10-03 21:30 | Progress Note ---
DATE: 10/03/2019 SUBJECTIVE: The patient is afebrile and hemodynamically stable but with persistent sinus tachycardia. PHYSICAL EXAMINATION: VITAL SIGNS: Blood pressure 127/78, pulse 117, respirations 15, temperature 98.1. HEENT: Eyes were normal. ENT, mucous membranes were moist and intact. NECK: Supple with no JVD without lymph nodes. Tracheostomy site is clean. LUNGS: Clear without rhonchi, rales, or wheezing. Secretions are small, thin, and beckman. HEART: Normal sounds with regular beats. There is no S3, S4, or pericardial rub. ABDOMEN: Soft and nontender with normal bowel sounds. Gastrostomy site is clean. EXTREMITIES: Warm without cyanosis, clubbing, or edema. LABORATORY AND DIAGNOSTIC DATA: Hemoglobin 8.7, hematocrit 27.1 with MCV of 87, WBC of 13.6, and platelets is 375. BUN and creatinine is 13 and 1.7 respectively. His sodium is 129, potassium 5.7, chloride 96, CO2 is 25. Uric acid is 3.9 and calcium is 9.9. CRP was 35. ProBNP was 138. Albumin is 2.1. Total protein is 5.9. Blood culture taken on resistant. The patient was on Bactrim DS twice a day. He has been placed on daptomycin mg IV piggyback every 24 hours. In addition, the customer resource specialist talked today to the patient's and the patient was placed on DNR status. Repeat laboratory tests will be done in the morning. Sariah Bhat M.D. DR: Elliott JOB#: [id number] CC:
--- NOTE | 2019-10-04 01:15 | Progress Note ---
DATE: 10/03/2019 CARDIOLOGY PROGRESS NOTE SUBJECTIVE: The patient remains afebrile, sinus tachy persists. OBJECTIVE: VITAL SIGNS: Blood pressure parameters normal. LUNGS: No wheezing or rales. Minimal secretions, on trach support. CARDIAC: Regular rhythm, rapid rate. Normal S1 and S2. No rub. ABDOMEN: Soft. G-tube intact. EXTREMITIES: No edema. IMPRESSION: 1. Sepsis. 2. Pulmonary embolism. 3. Secondary sinus tachycardia. 4. Respiratory failure. 5. Chronic encephalopathy. 6. Elevated pulmonary artery systolic pressures. PLAN: Add low-dose beta-cristhian, titrate based on clinical parameters. Kali Melgar M.D. DR: EDNA JOB#: [id number] CC:
[2019-10-04] MEDS: levETIRAcetam 500mg/5ml Liquid GT SCH ×3 (01:16→18:17)
[2019-10-04 03:33] VITALS: BP 138/80
[2019-10-04 04:00] VITALS: BP 138/80
[2019-10-04] MEDS: Minocycline HCl 50mg cap ORAL SCH ×2 (05:31→18:18)
[2019-10-04] MEDS: sitaGLIPtin 50mg tab GT SCH (05:31)
[2019-10-04] MEDS: NovoLOG Insulin Flexpen SUBQ SCH ×3 (05:32→18:19)
[2019-10-04 06:22] LABS: CREATINE KINASE 183 U/L (26-308)
--- NOTE | 2019-10-04 06:46 | Pulmonolgy Critical Care Note ---
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 (8) Diabetes mellitus (9) Vegetative state Respiratory: monitor respiratory rate, adjust FIO2, CXR Cardiac: continue to monitor HR/BP Renal: F/U I&O, keep IV fluid, check electrolytes Infectious Disease: check cultures Gastrointestinal: continue feedings/current rate Endocrine: monitor blood sugar, continue sliding scale insulin Hematologic: monitor H/H Neurologic: PRN Ativan, keep patient comfortable Prophylaxis: Protonix Notes Reviewed: return agent airport Discussed with: nurses, consultants, caser upterritory outside sales manager - Objective Last 24 Hour Vital Signs Date Time Temp Pulse Resp B/P (MAP) Pulse Ox O2 Delivery O2 Flow Rate FiO2 10/04/19 05:03 112 14 30 10/04/19 04:00 30 10/04/19 04:00 97.9 116 18 138/80 (99) 100 10/04/19 04:00 Mechanical Ventilator 10/04/19 03:33 97.9 116 18 138/80 (99) 100 10/04/19 03:33 115 10/04/19 02:38 113 15 30 10/04/19 01:16 119 15 30 10/04/19 00:00 30 10/04/19 00:00 Mechanical Ventilator 10/03/19 23:57 98.9 112 16 121/69 (86) 100 10/03/19 23:35 102 10/03/19 23:22 102 16 30 10/03/19 21:24 107 15 30 10/03/19 21:08 100.1 10/03/19 21:08 100.1 10/03/19 20:00 30 10/03/19 20:00 Mechanical Ventilator 10/03/19 20:00 101.7 115 16 131/68 (89) 100 10/03/19 19:35 111 15 30 10/03/19 19:32 111 10/03/19 16:44 107 14 30 10/03/19 16:00 30 10/03/19 16:00 Mechanical Ventilator 10/03/19 16:00 110 10/03/19 16:00 99.1 109 16 118/76 (90) 100 10/03/19 14:55 113 19 30 12/13/19 13:04 113 15 30 10/03/19 12:00 Mechanical Ventilator 10/03/19 12:00 98.1 117 15 122/78 (93) 100 10/03/19 12:00 30 10/03/19 11:40 116 10/03/19 10:43 118 17 30 10/03/19 08:35 117 14 30 10/03/19 08:00 Mechanical Ventilator 10/03/19 08:00 99.4 121 15 121/78 (92) 100 10/03/19 08:00 30 10/03/19 08:00 118 10/03/19 06:54 129 15 30 Status: obtunded Condition: critical HEENT: atraumatic Neck: full ROM Lungs: rales, rhonchi Heart: HR/BP stable Abdomen: soft, feeding tube Extremities: edema Decubiti: location Micro: Microbiology Date/Time Source Procedure Growth Status 10/02/19 18:30 Blood Blood Culture - Preliminary NO GROWTH AFTER 24 HOURS Resulted 10/02/19 18:20 Blood Blood Culture - Preliminary Gram Negative Kwabena Resulted 10/02/19 15:45 Urine,Clean Catch Urine Culture - Final Camelia Parapsilosis Complete Accucheck: 235 Critical Care - Subjective ROS Limited/Unobtainable: Yes Condition: critical EKG Rhythm: Sinus Rhythm FI02: 30 Vent Support Breath Rate: 14 Vent Support Mode: AC Vent Tidal Volume: 600 Sputum Amount: None PEEP: 5.0 PIP: 32 Tube Feeding Amount: 65 I&O: Intake and Output 10/03/19 10/04/19 19:00 07:00 Intake Total 3721.332 ml 2532.666 ml Output Total 3350 ml 3750 ml Balance 371.332 ml -1217.334 ml Free Water 300 ml 100 ml IV Total 2641.332 ml 1717.666 ml Tube Feeding 780 ml 715 ml Output Urine Total 2850 ml 3450 ml Stool Total 500 ml 300 ml Labs: Laboratory Tests Test 10/04/19 03:57 Total Creatine Kinase 183 U/L (26-308) Nico Goetz MD Oct 04, 2019 06:46
[2019-10-04 08:00] VITALS: BP 136/77
[2019-10-04] MEDS: SULFAMETHOXAZOLE IV SCH ×2 (08:35→15:52)
[2019-10-04] MEDS: TRIMETHOPRIM IV SCH ×2 (08:35→15:52)
[2019-10-04] MEDS: D5W IV SCH ×2 (08:35→15:52)
[2019-10-04] MEDS: Fluconazole 100mg tab GT SCH (08:39)
[2019-10-04] MEDS: Tamsulosin 0.4mg cap ORAL SCH (08:39)
[2019-10-04] MEDS: Eliquis 5mg tablet GT SCH ×2 (08:39→18:18)
[2019-10-04] MEDS: Clobetasol Cream 0.05% 15gm TOPIC SCH ×2 (08:41→20:37)
[2019-10-04 12:00] VITALS: BP 129/77
--- NOTE | 2019-10-04 12:34 | Nephrology Progress Note ---
Assessment/Plan Problem List: (1) Renal failure (ARF), acute on chronic Assessment: Cr rising and hyperKalemia (2) Urinary retention (3) Acute on chronic respiratory failure (4) Hypercalcemia Assessment Hypercalcemia Urinary retention, BPH , Acute on chronic renal failure Electrolyte imbalance Colostomy DM PEG Vegetative state Acute on chronic respiratory failure Plan no labs today- as needed 3% Saline and NS kayexelate as needed need to avoid nephrotoxics as possible urine studies K and Phos and Mag supplements as needed pulm support Aredia for high Ca on 09/18 redose today 09/23 Subjective ROS Limited/Unobtainable: Yes Objective Objective Last 24 Hour Vital Signs Date Time Temp Pulse Resp B/P (MAP) Pulse Ox O2 Delivery O2 Flow Rate FiO2 10/04/19 10:46 99 16 30 10/04/19 08:56 112 14 30 10/04/19 08:39 112 136/77 10/04/19 08:00 30 10/04/19 08:00 97.0 112 15 136/77 (96) 100 10/04/19 08:00 Mechanical Ventilator 10/04/19 07:58 121 10/04/19 06:54 116 14 30 10/04/19 05:03 112 14 30 10/04/19 04:00 30 10/04/19 04:00 97.9 116 18 138/80 (99) 100 10/04/19 04:00 Mechanical Ventilator 10/04/19 03:33 97.9 116 18 138/80 (99) 100 10/04/19 03:33 115 10/04/19 02:38 113 15 30 10/04/19 01:16 119 15 30 10/04/19 00:00 30 10/04/19 00:00 Mechanical Ventilator 10/03/19 23:57 98.9 112 16 121/69 (86) 100 10/03/19 23:35 102 10/03/19 23:22 102 16 30 10/03/19 21:24 107 15 30 10/03/19 21:08 100.1 10/03/19 21:08 100.1 10/03/19 20:00 30 10/03/19 20:00 Mechanical Ventilator 10/03/19 20:00 101.7 115 16 131/68 (89) 100 10/03/19 19:35 111 15 30 10/03/19 19:32 111 10/03/19 16:44 107 14 30 10/03/19 16:00 30 10/03/19 16:00 Mechanical Ventilator 10/03/19 16:00 110 10/03/19 16:00 99.1 109 16 118/76 (90) 100 10/03/19 14:55 113 19 30 10/03/19 13:04 113 15 30 Intake and Output 10/03/19 10/04/19 19:00 07:00 Intake Total 3721.332 ml 2697.666 ml Output Total 3350 ml 3750 ml Balance 371.332 ml -1052.334 ml Free Water 300 ml 100 ml IV Total 2641.332 ml 1817.666 ml Tube Feeding 780 ml 780 ml Output Urine Total 2850 ml 3450 ml Stool Total 500 ml 300 ml Laboratory Tests 10/04/19 03:57: Total Creatine Kinase 183 Height (Feet): 5 Height (Inches): 7.00 Weight (Pounds): 203 General Appearance: no apparent distress EENT: other - trach Cardiovascular: tachycardia Respiratory/Chest: decreased breath sounds Abdomen: distended Objective no change Cl Zaragoza MD Oct 04, 2019 12:34
[2019-10-04] MEDS ORDERED: NS 275ml ONE ×2 (13:30→14:03)
[2019-10-04] MEDS ORDERED: Tubing IV Secondary IV ONE (13:30)
--- NOTE | 2019-10-04 15:27 | Urology Progress Note ---
Assessment/Plan Status: stable Assessment/Plan: 1. Urinary retention. 2. BPH. 3. Neurogenic bladder. 4. Incontinence. 5. Pyuria/UTI/colonized. 6. Hematuria. 7. Proteinuria. 8. Renal insufficiency, acute possibly on chronic. 9. Renal cyst. 10. Nephrolithiasis. 11. Renal fullness. 12. Bladder calcifications. 13. POD # 17, cysto/optic urethrotomy. monitor clinically kendrick placed 09/17 hand irrigated and do PRN abx as ordered, pr ID diflucan added monitor WBC f/u on last blood cx renal fxn stable Subjective Allergies: Coded Allergies: AZTREONAM (Verified Allergy, Unknown, 05/13/18) Subjective all noted, kendrick draining, non-verbal Objective Last 24 Hour Vital Signs Date Time Temp Pulse Resp B/P (MAP) Pulse Ox O2 Delivery O2 Flow Rate FiO2 10/04/19 14:49 98 14 30 10/04/19 13:16 97 14 30 10/04/19 13:10 97 10/04/19 12:00 Mechanical Ventilator 10/04/19 12:00 97.2 98 15 129/77 (94) 100 10/04/19 12:00 30 10/04/19 10:46 99 16 30 10/04/19 08:56 112 14 30 10/04/19 08:39 112 136/77 10/04/19 08:00 30 10/04/19 08:00 97.0 112 15 136/77 (96) 100 10/04/19 08:00 Mechanical Ventilator 10/04/19 07:58 121 10/04/19 06:54 116 14 30 10/04/19 05:03 112 14 30 10/04/19 04:00 30 10/04/19 04:00 97.9 116 18 138/80 (99) 100 10/04/19 04:00 Mechanical Ventilator 10/04/19 03:33 97.9 116 18 138/80 (99) 100 10/04/19 03:33 115 10/04/19 02:38 113 15 30 10/04/19 01:16 119 15 30 10/04/19 00:00 30 10/04/19 00:00 Mechanical Ventilator 10/03/19 23:57 98.9 112 16 121/69 (86) 100 10/03/19 23:35 102 10/03/19 23:22 102 16 30 10/03/19 21:24 107 15 30 10/03/19 21:08 100.1 10/03/19 21:08 100.1 10/03/19 20:00 30 10/03/19 20:00 Mechanical Ventilator 10/03/19 20:00 101.7 115 16 131/68 (89) 100 10/03/19 19:35 111 15 30 10/03/19 19:32 111 10/03/19 16:44 107 14 30 10/03/19 16:00 30 10/03/19 16:00 Mechanical Ventilator 10/03/19 16:00 110 10/03/19 16:00 99.1 109 16 118/76 (90) 100 Intake and Output 10/03/19 10/04/19 19:00 07:00 Intake Total 3721.332 ml 2697.666 ml Output Total 3350 ml 3750 ml Balance 371.332 ml -1052.334 ml Free Water 300 ml 100 ml IV Total 2641.332 ml 1817.666 ml Tube Feeding 780 ml 780 ml Output Urine Total 2850 ml 3450 ml Stool Total 500 ml 300 ml Microbiology Date/Time Source Procedure Growth Status 10/02/19 18:30 Blood Blood Culture - Preliminary NO GROWTH AFTER 24 HOURS Resulted 09/15/19 11:00 Nasal Nares - Final Complete 09/15/19 11:00 Nasal Nares - Final Complete 09/25/19 19:00 Stool Clostridium difficile Toxin Assay - Final Complete 10/02/19 15:45 Urine,Clean Catch Urine Culture - Final Camelia Parapsilosis Complete 09/14/19 09:10 Rectum VRE Culture - Final Enterococcus Faecium - Vre Complete Current Medications Medications (Trade) Dose Ordered Sig/Va Route PRN Reason Start Time Stop Time Status Last Admin Dose Admin Acetaminophen (Tylenol) 650 mg Q4H PRN GT Mild Pain/Temp > 100.6 09/16/19 18:42 10/16/19 18:41 10/03/19 20:38 Apixaban (Eliquis) 5 mg BID GT 10/02/19 18:02 11/01/19 18:01 10/04/19 08:39 Artificial Tears (Akwa-Tears) 2 drop Q12HR BOTH EYES 09/16/19 21:00 10/14/19 20:59 10/04/19 08:40 Baclofen (Lioresal) 10 mg THREE TIMES A DAY GT 09/17/19 09:00 10/14/19 17:59 10/04/19 12:37 Calcitonin [place] (Miacalcin) 1 sprays DAILY NASAL 09/18/19 12:00 10/18/19 11:59 10/04/19 08:40 Chlorhexidine Gluconate (Rebecca-Hex 2%) 1 applic DAILY@2000 TOPIC 09/26/19 20:00 10/26/19 19:59 10/03/19 20:35 Clobetasol Propionate (Temovate) 1 applic EVERY 12 HOURS TOPIC 09/16/19 21:00 10/14/19 20:59 10/04/19 08:41 Daptomycin 550 mg/ Sodium Chloride 55 ml @ 100 mls/hr Q24H IV 10/03/19 18:00 10/10/19 17:59 10/03/19 18:04 Dextrose (Dextrose 50%) 25 ml Q30M PRN IV Hypoglycemia 09/16/19 18:45 10/14/19 14:44 Dextrose (Dextrose 50%) 50 ml Q30M PRN IV Hypoglycemia 09/16/19 18:45 10/14/19 14:44 Famotidine (Pepcid) 20 mg BID GT 09/18/19 18:00 10/18/19 17:59 10/04/19 08:39 Fenofibrate (Tricor) 145 mg DAILY ORAL 09/17/19 09:00 10/15/19 08:59 10/04/19 08:39 Fluconazole (Diflucan) 400 mg DAILY GT 10/02/19 09:00 10/06/19 13:46 10/04/19 08:39 Insulin Aspart (NovoLOG) EVERY 6 HOURS SUBQ 09/20/19 12:00 10/14/19 16:29 10/04/19 12:38 Levetiracetam (Keppra) 1,000 mg Q8H GT 09/19/19 02:00 10/19/19 01:59 10/04/19 10:11 Metoprolol Tartrate (Lopressor) 25 mg Q12HR GT 10/04/19 09:00 11/03/19 08:59 10/04/19 08:39 Minocycline HCl (Minocin) 100 mg Q12HR@0600,1800 ORAL 10/01/19 06:00 10/08/19 05:59 10/04/19 05:31 Ondansetron HCl (Zofran) 4 mg Q6H PRN IVP Nausea & Vomiting 09/16/19 18:44 10/16/19 18:43 Polyethylene Glycol (Miralax) 17 gm DAILYPRN PRN GT Constipation 09/16/19 18:44 10/16/19 18:43 Sitagliptin Phosphate (Januvia) 50 mg ACBREAKFAST GT 09/17/19 06:30 10/15/19 06:29 10/04/19 05:31 Sodium Chloride 1,000 ml @ 100 mls/hr Q10H IV 10/03/19 08:15 11/02/19 08:14 10/04/19 13:59 Tamsulosin HCl (Flomax) 0.4 mg DAILY ORAL 09/17/19 09:00 10/17/19 08:59 10/04/19 08:39 Trimethoprim/ Sulfamethoxazole 28 ml/Dextrose 578 ml @ 385.333 mls/hr [id number] BACTRIM IV 10/02/19 16:00 10/09/19 15:59 10/04/19 08:35 Laboratory Tests 10/04/19 03:57: Total Creatine Kinase 183 Height (Feet): 5 Height (Inches): 7.00 Weight (Pounds): 203 Objective exam stable kendrick indwelling, yellow/hermelindo urine, some debris CT C/A/P (09/28) noted Manohar Villarreal MD Oct 04, 2019 15:27
[2019-10-04 16:00] VITALS: BP 126/73
[2019-10-04] MEDS: DAPTOmycin 550 MG in NS 55 ML IV SCH (18:17)
[2019-10-04 20:00] VITALS: BP 124/68
[2019-10-04] MEDS: Dyna-Hex 2% Top Sol 2oz TOPIC SCH (20:36)
[2019-10-05] VITALS: BP 132/80
[2019-10-05] MEDS: TRIMETHOPRIM IV SCH ×4 (00:06→23:20)
[2019-10-05] MEDS: D5W IV SCH ×4 (00:06→23:20)
[2019-10-05] MEDS: SULFAMETHOXAZOLE IV SCH ×4 (00:06→23:20)
[2019-10-05] MEDS: NovoLOG Insulin Flexpen SUBQ SCH ×5 (00:09→23:23)
--- NOTE | 2019-10-05 01:45 | Progress Note ---
DATE: 10/04/2019 SUBJECTIVE: The patient is afebrile, hemodynamically stable with mostly tachycardic below 100. PHYSICAL EXAMINATION: VITAL SIGNS: Blood pressure 126/73, pulse is 98, respirations of 14, and temperature of 97.2. HEENT: Eyes were normal. ENT, mucous membranes were moist and intact. NECK: Supple with no JVD without lymph nodes. Tracheostomy site is clean. LUNGS: Clear without rhonchi, rales, or wheezing. Secretions are small, thin, and hodgson. HEART: Normal sounds with regular beats. There is no S3, S4, or pericardial rub. ABDOMEN: Soft and nontender with normal bowel sounds. Gastrostomy site is clean. EXTREMITIES: Warm without cyanosis, clubbing, or edema. LABORATORY DATA: No new laboratory data available at the time of this dictation. IMPRESSION: The patient is afebrile and hemodynamically stable. His heart rate is near 100 with normal O2. If the patient remains stable for the next 24 hours, he can be discharged in the a.m. back to the extended care facility. Sariah Bhat M.D. DR: KETAN JOB#: [id number] CC:
[2019-10-05] MEDS: levETIRAcetam 500mg/5ml Liquid GT SCH ×3 (02:19→18:08)
--- NOTE | 2019-10-05 03:30 | Progress Note ---
DATE: 10/04/2019 CARDIOLOGY PROGRESS NOTE SUBJECTIVE: Heart rates have improved on low dose beta-cristhian. Sinus rhythm maintained. Rare atrial ectopics. Still on ventilator support. OBJECTIVE: LUNGS: With few rhonchi. CARDIAC: Regular. No new murmur. ABDOMEN: Soft. G-tube intact. EXTREMITIES: No edema. IMPRESSION: 1. Pulmonary embolus. 2. Paroxysmal atrial ectopy and sinus tachycardia. 3. Respiratory failure. 4. Chronic encephalopathy. 5. Healthcare-acquired pneumonia. PLAN: Maintain current cardiovascular regimen and full anticoagulation. Kali Melgar M.D. DR: LALI JOB#: [id number] CC:
[2019-10-05 04:00] VITALS: BP 144/75
[2019-10-05] MEDS: Minocycline HCl 50mg cap ORAL SCH ×2 (05:57→18:08)
[2019-10-05] MEDS: sitaGLIPtin 50mg tab GT SCH (05:57)
[2019-10-05 06:59] LABS: HEMATOCRIT 24.1 % (42.0-52.0); HEMOGLOBIN 7.7 G/DL (14.2-18.0); MEAN CORPUSCULAR VOLUME 86 FL (80-99); PLATELET COUNT 440 K/UL (150-450); RED CELL DISTRIBUTION WIDTH 17.1 % (11.6-14.8); WHITE BLOOD COUNT 14.2 K/UL (4.8-10.8)
--- NOTE | 2019-10-05 07:29 | Pulmonolgy Critical Care Note ---
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 (8) Diabetes mellitus (9) Vegetative state Respiratory: monitor respiratory rate, adjust FIO2 Cardiac: continue to monitor HR/BP Renal: F/U I&O, keep IV fluid Infectious Disease: check cultures, continue antibiotics Gastrointestinal: continue feedings/current rate Endocrine: monitor blood sugar, check HgA1C Hematologic: monitor H/H Neurologic: PRN Morphine Prophylaxis: Protonix, Heparin Notes Reviewed: oil and gas recruiter, cardio, renal Discussed with: nurses, consultants, child support case officerindustrial production manager - Objective Last 24 Hour Vital Signs Date Time Temp Pulse Resp B/P (MAP) Pulse Ox O2 Delivery O2 Flow Rate FiO2 10/05/19 07:26 102 14 30 10/05/19 05:03 95 14 30 10/05/19 04:00 97.2 93 16 144/75 (98) 100 10/05/19 04:00 Mechanical Ventilator 10/05/19 04:00 30 10/05/19 03:42 96 10/05/19 03:30 91 15 30 10/05/19 01:29 94 14 30 10/05/19 00:00 Mechanical Ventilator 10/05/19 00:00 97.0 93 15 132/80 (97) 99 10/04/19 23:50 93 10/04/19 23:14 90 14 30 10/04/19 21:30 92 14 30 10/04/19 20:36 103 124/68 10/04/19 20:00 30 10/04/19 20:00 Mechanical Ventilator 10/04/19 20:00 97.3 103 15 124/68 (86) 99 10/04/19 19:30 104 14 30 10/04/19 19:27 106 10/04/19 19:25 92 14 96 Mechanical Ventilator 30 10/04/19 17:09 100 15 30 10/04/19 16:00 97.2 100 14 126/73 (90) 100 10/04/19 16:00 30 10/04/19 16:00 Mechanical Ventilator 10/04/19 15:53 100 10/04/19 14:49 98 14 30 10/04/19 13:16 97 14 30 10/04/19 13:10 97 10/04/19 12:00 Mechanical Ventilator 10/04/19 12:00 97.2 98 15 129/77 (94) 100 10/04/19 12:00 30 10/04/19 10:46 99 16 30 10/04/19 08:56 112 14 30 10/04/19 08:39 112 136/77 10/04/19 08:00 30 10/04/19 08:00 97.0 112 15 136/77 (96) 100 10/04/19 08:00 Mechanical Ventilator 10/04/19 07:58 121 Status: obtunded Condition: critical HEENT: atraumatic Lungs: rales, rhonchi Heart: HR/BP stable Abdomen: soft, non-tender Extremities: no C/C/E, edema Micro: Microbiology Date/Time Source Procedure Growth Status 10/03/19 16:15 Blood Blood Culture - Preliminary NO GROWTH AFTER 24 HOURS Resulted 10/03/19 16:00 Blood Blood Culture - Preliminary NO GROWTH AFTER 24 HOURS Resulted 10/02/19 18:30 Blood Blood Culture - Preliminary NO GROWTH AFTER 48 HOURS Resulted 10/02/19 18:20 Blood Blood Culture - Preliminary Gram Negative Kwabena Resulted 10/02/19 15:45 Urine,Clean Catch Urine Culture - Final Camelia Parapsilosis Complete Accucheck: 168 Critical Care - Subjective ROS Limited/Unobtainable: Yes Condition: critical EKG Rhythm: Sinus Tachycardia FI02: 30 Vent Support Breath Rate: 14 Vent Support Mode: AC Vent Tidal Volume: 600 Sputum Amount: Small PEEP: 5.0 PIP: 38 Tube Feeding Amount: 65 I&O: Intake and Output 10/04/19 10/05/19 19:00 07:00 Intake Total 3445.667 ml 1728.000 ml Output Total 3250 ml Balance 195.667 ml 1728.000 ml IV Total 2365.667 ml 978.000 ml Tube Feeding 780 ml 650 ml Other 300 ml 100 ml Output Urine Total 3000 ml Stool Total 250 ml Labs: Laboratory Tests Test 10/05/19 04:30 White Blood Count 14.2 K/UL (4.8-10.8) H Red Blood Count 2.80 M/UL (4.70-6.10) L Hemoglobin 7.7 G/DL (14.2-18.0) L Hematocrit 24.1 % (42.0-52.0) L Mean Corpuscular Volume 86 FL (80-99) Mean Corpuscular Hemoglobin 27.5 PG (27.0-31.0) Mean Corpuscular Hemoglobin Concent 31.9 G/DL (32.0-36.0) L Red Cell Distribution Width 17.1 % (11.6-14.8) H Platelet Count 440 K/UL (150-450) Mean Platelet Volume 7.1 FL (6.5-10.1) Neutrophils (%) (Auto) % (45.0-75.0) Lymphocytes (%) (Auto) % (20.0-45.0) Monocytes (%) (Auto) % (1.0-10.0) Eosinophils (%) (Auto) % (0.0-3.0) Basophils (%) (Auto) % (0.0-2.0) Neutrophils % (Manual) Pending Lymphocytes % (Manual) Pending Platelet Estimate Pending Platelet Morphology Pending Erythrocyte Sedimentation Rate Pending Sodium Level Pending Potassium Level Pending Chloride Level Pending Carbon Dioxide Level Pending Blood Urea Nitrogen Pending Creatinine Pending Estimat Glomerular Filtration Rate Pending Glucose Level Pending Uric Acid 3.3 MG/DL (2.6-7.2) Calcium Level Pending Phosphorus Level Pending Magnesium Level Pending Total Bilirubin Pending Aspartate Amino Transf (AST/SGOT) Pending Alanine Aminotransferase (ALT/SGPT) Pending Alkaline Phosphatase Pending C-Reactive Protein, Quantitative Pending Pro-B-Type Natriuretic Peptide 218 pg/mL (0-125) H Total Protein Pending Albumin Pending Globulin Pending Nico Goetz MD Oct 05, 2019 07:29
[2019-10-05 08:00] VITALS: BP 134/78
[2019-10-05 08:04] LABS: ALANINE AMINOTRANSFERASE 22 U/L (12-78); ALBUMIN 2.3 G/DL (3.4-5.0); ALBUMIN/GLOBULIN RATIO 0.4 (1.0-2.7); ALKALINE PHOSPHATASE 104 U/L (46-116); ANION GAP 10 mmol/L (5-15); ASPARTATE AMINO TRANSFERASE 27 U/L (15-37); BILIRUBIN,TOTAL 0.2 MG/DL (0.2-1.0); BLOOD UREA NITROGEN 16 mg/dL (7-18); CALCIUM 10.3 MG/DL (8.5-10.1); CARBON DIOXIDE 23 MMOL/L (21-32); CHLORIDE 97 MMOL/L (98-107); CREATININE 1.2 MG/DL (0.55-1.30); PHOSPHORUS 3.1 MG/DL (2.5-4.9); POTASSIUM 5.9 MMOL/L (3.5-5.1); SODIUM 130 MMOL/L (136-145)
[2019-10-05] MEDS ORDERED: Sodium Polystyrene Sulfonate 15gm Powder GT SCH ×2 (08:30→22:00)
[2019-10-05] MEDS: Eliquis 5mg tablet GT SCH ×2 (08:46→18:08)
[2019-10-05] MEDS: Fluconazole 100mg tab GT SCH (08:46)
[2019-10-05] MEDS: Clobetasol Cream 0.05% 15gm TOPIC SCH ×2 (08:47→20:38)
[2019-10-05] MEDS: Tamsulosin 0.4mg cap ORAL SCH (08:47)
--- NOTE | 2019-10-05 09:33 | Nephrology Progress Note ---
Assessment/Plan Problem List: (1) Renal failure (ARF), acute on chronic Assessment: Cr rising and hyperKalemia (2) Urinary retention (3) Acute on chronic respiratory failure (4) Hypercalcemia Assessment Hypercalcemia Urinary retention, BPH , Acute on chronic renal failure Electrolyte imbalance Colostomy DM PEG Vegetative state Acute on chronic respiratory failure Plan Kayexelate as needed 3% Saline and NS need to avoid nephrotoxics as possible urine studies K and Phos and Mag supplements as needed pulm support Aredia for high Ca on 09/18 redose today 09/23 Subjective ROS Limited/Unobtainable: Yes Objective Objective Last 24 Hour Vital Signs Date Time Temp Pulse Resp B/P (MAP) Pulse Ox O2 Delivery O2 Flow Rate FiO2 10/05/19 08:47 101 134/78 10/05/19 08:00 30 10/05/19 08:00 Mechanical Ventilator 10/05/19 08:00 98.4 101 15 134/78 (96) 98 10/05/19 07:26 102 14 30 10/05/19 05:03 95 14 30 10/05/19 04:00 97.2 93 16 144/75 (98) 100 10/05/19 04:00 Mechanical Ventilator 10/05/19 04:00 30 10/05/19 03:42 96 10/05/19 03:30 91 15 30 10/05/19 01:29 94 14 30 10/05/19 00:00 Mechanical Ventilator 10/05/19 00:00 97.0 93 15 132/80 (97) 99 10/04/19 23:50 93 10/04/19 23:14 90 14 30 10/04/19 21:30 92 14 30 10/04/19 20:36 103 124/68 10/04/19 20:00 30 10/04/19 20:00 Mechanical Ventilator 10/04/19 20:00 97.3 103 15 124/68 (86) 99 10/04/19 19:30 104 14 30 10/04/19 19:27 106 10/04/19 19:25 92 14 96 Mechanical Ventilator 30 10/04/19 17:09 100 15 30 10/04/19 16:00 97.2 100 14 126/73 (90) 100 10/04/19 16:00 30 10/04/19 16:00 Mechanical Ventilator 10/04/19 15:53 100 10/04/19 14:49 98 14 30 10/04/19 13:16 97 14 30 10/04/19 13:10 97 10/04/19 12:00 Mechanical Ventilator 10/04/19 12:00 97.2 98 15 129/77 (94) 100 10/04/19 12:00 30 10/04/19 10:46 99 16 30 Intake and Output 10/04/19 10/05/19 19:00 07:00 Intake Total 3445.667 ml 2058.000 ml Output Total 3250 ml 1650 ml Balance 195.667 ml 408.000 ml IV Total 2365.667 ml 1178.000 ml Tube Feeding 780 ml 780 ml Other 300 ml 100 ml Output Urine Total 3000 ml 1600 ml Stool Total 250 ml 50 ml Laboratory Tests 10/05/19 04:30: White Blood Count 14.2H, Red Blood Count 2.80L, Hemoglobin 7.7L, Hematocrit 24.1L, Mean Corpuscular Volume 86, Mean Corpuscular Hemoglobin 27.5, Mean Corpuscular Hemoglobin Concent 31.9L, Red Cell Distribution Width 17.1H, Platelet Count 440, Mean Platelet Volume 7.1, Neutrophils (%) (Auto) , Lymphocytes (%) (Auto) , Monocytes (%) (Auto) , Eosinophils (%) (Auto) , Basophils (%) (Auto) , Neutrophils % (Manual) [Pending], Lymphocytes % (Manual) [Pending], Platelet Estimate [Pending], Platelet Morphology [Pending], Erythrocyte Sedimentation Rate 67H, Sodium Level 130L, Potassium Level 5.9H, Chloride Level 97L, Carbon Dioxide Level 23, Anion Gap 10, Blood Urea Nitrogen 16, Creatinine 1.2, Estimat Glomerular Filtration Rate > 60, Glucose Level 161H , Uric Acid 3.3, Calcium Level 10.3H, Phosphorus Level 3.1, Magnesium Level 1.7L , Total Bilirubin 0.2, Aspartate Amino Transf (AST/SGOT) 27, Alanine Aminotransferase (ALT/SGPT) 22, Alkaline Phosphatase 104, C-Reactive Protein, Quantitative 16.0H, Pro-B-Type Natriuretic Peptide 218H, Total Protein 8.4H, Albumin 2.3L, Globulin 6.1, Albumin/Globulin Ratio 0.4L Height (Feet): 5 Height (Inches): 7.00 Weight (Pounds): 195 General Appearance: no apparent distress, lethargic EENT: other - trach Neck: limited range of motion Cardiovascular: tachycardia Respiratory/Chest: decreased breath sounds Abdomen: distended Objective no change Cl Zaragoza MD Oct 05, 2019 09:33
--- NOTE | 2019-10-05 10:14 | Urology Progress Note ---
Assessment/Plan Status: stable Assessment/Plan: 1. Urinary retention. 2. BPH. 3. Neurogenic bladder. 4. Incontinence. 5. Pyuria/UTI/colonized. 6. Hematuria. 7. Proteinuria. 8. Renal insufficiency, acute possibly on chronic. 9. Renal cyst. 10. Nephrolithiasis. 11. Renal fullness. 12. Bladder calcifications. 13. POD # 18, cysto/optic urethrotomy. monitor clinically kendrick placed / hand irrigated and do PRN abx as ordered, pr ID diflucan added monitor WBC f/u on last blood cx renal fxn stable Subjective Allergies: Coded Allergies: AZTREONAM (Verified Allergy, Unknown, 05/13/18) Subjective all noted, kendrick draining, non-verbal Objective Last 24 Hour Vital Signs Date Time Temp Pulse Resp B/P (MAP) Pulse Ox O2 Delivery O2 Flow Rate FiO2 10/05/19 08:47 101 134/78 10/05/19 08:00 30 10/05/19 08:00 Mechanical Ventilator 10/05/19 08:00 98.4 101 15 134/78 (96) 98 10/05/19 07:26 102 14 30 10/05/19 05:03 95 14 30 10/05/19 04:00 97.2 93 16 144/75 (98) 100 10/05/19 04:00 Mechanical Ventilator 10/05/19 04:00 30 10/05/19 03:42 96 10/05/19 03:30 91 15 30 10/05/19 01:29 94 14 30 10/05/19 00:00 Mechanical Ventilator 10/05/19 00:00 97.0 93 15 132/80 (97) 99 10/04/19 23:50 93 10/04/19 23:14 90 14 30 10/04/19 21:30 92 14 30 10/04/19 20:36 103 124/68 10/04/19 20:00 30 10/04/19 20:00 Mechanical Ventilator 10/04/19 20:00 97.3 103 15 124/68 (86) 99 10/04/19 19:30 104 14 30 10/04/19 19:27 106 10/04/19 19:25 92 14 96 Mechanical Ventilator 30 10/04/19 17:09 100 15 30 10/04/19 16:00 97.2 100 14 126/73 (90) 100 10/04/19 16:00 30 10/04/19 16:00 Mechanical Ventilator 10/04/19 15:53 100 10/04/19 14:49 98 14 30 10/04/19 13:16 97 14 30 10/04/19 13:10 97 10/04/19 12:00 Mechanical Ventilator 10/04/19 12:00 97.2 98 15 129/77 (94) 100 10/04/19 12:00 30 10/04/19 10:46 99 16 30 Intake and Output 10/04/19 10/05/19 19:00 07:00 Intake Total 3445.667 ml 2058.000 ml Output Total 3250 ml 1650 ml Balance 195.667 ml 408.000 ml IV Total 2365.667 ml 1178.000 ml Tube Feeding 780 ml 780 ml Other 300 ml 100 ml Output Urine Total 3000 ml 1600 ml Stool Total 250 ml 50 ml Microbiology Date/Time Source Procedure Growth Status 10/03/19 16:15 Blood Blood Culture - Preliminary Resulted 09/15/19 11:00 Nasal Nares - Final Complete 09/15/19 11:00 Nasal Nares - Final Complete 09/25/19 19:00 Stool Clostridium difficile Toxin Assay - Final Complete 10/02/19 15:45 Urine,Clean Catch Urine Culture - Final Camelia Parapsilosis Complete 09/30/19 16:00 Abdomen Anaerobic Culture - Final NO ANAEROBES ISOLATED Complete Current Medications Medications (Trade) Dose Ordered Sig/Va Route PRN Reason Start Time Stop Time Status Last Admin Dose Admin Acetaminophen (Tylenol) 650 mg Q4H PRN GT Mild Pain/Temp > 100.6 09/16/19 18:42 10/16/19 18:41 10/03/19 20:38 Apixaban (Eliquis) 5 mg BID GT 10/02/19 18:02 11/01/19 18:01 10/05/19 08:46 Artificial Tears (Akwa-Tears) 2 drop Q12HR BOTH EYES 09/16/19 21:00 10/14/19 20:59 10/05/19 08:47 Baclofen (Lioresal) 10 mg THREE TIMES A DAY GT 09/17/19 09:00 10/14/19 17:59 10/05/19 08:46 Calcitonin [place] (Miacalcin) 1 sprays DAILY NASAL 09/18/19 12:00 10/18/19 11:59 10/05/19 08:47 Chlorhexidine Gluconate (Rebecca-Hex 2%) 1 applic DAILY@1999 TOPIC 09/26/19 20:00 10/26/19 19:59 10/04/19 20:36 Clobetasol Propionate (Temovate) 1 applic EVERY 12 HOURS TOPIC 09/16/19 21:00 10/14/19 20:59 10/05/19 08:47 Daptomycin 550 mg/ Sodium Chloride 55 ml @ 100 mls/hr Q24H IV 10/03/19 18:00 10/10/19 17:59 10/04/19 18:17 Dextrose (Dextrose 50%) 25 ml Q30M PRN IV Hypoglycemia 09/16/19 18:45 10/14/19 14:44 Dextrose (Dextrose 50%) 50 ml Q30M PRN IV Hypoglycemia 09/16/19 18:45 10/14/19 14:44 Famotidine (Pepcid) 20 mg BID GT 09/18/19 18:00 10/18/19 17:59 10/05/19 08:46 Fenofibrate (Tricor) 145 mg DAILY ORAL 09/17/19 09:00 10/15/19 08:59 10/05/19 08:46 Fluconazole (Diflucan) 400 mg DAILY GT 10/02/19 09:00 10/06/19 13:46 10/05/19 08:46 Insulin Aspart (NovoLOG) EVERY 6 HOURS SUBQ 09/20/19 12:00 10/14/19 16:29 10/05/19 06:07 Levetiracetam (Keppra) 1,000 mg Q8H GT 09/19/19 02:00 10/19/19 01:59 10/05/19 09:53 Metoprolol Tartrate (Lopressor) 25 mg Q12HR GT 10/04/19 09:00 11/03/19 08:59 10/05/19 08:47 Minocycline HCl (Minocin) 100 mg Q12HR@0600,1800 ORAL 10/01/19 06:00 10/08/19 05:59 10/05/19 05:57 Ondansetron HCl (Zofran) 4 mg Q6H PRN IVP Nausea & Vomiting 09/16/19 18:44 12/26/19 18:43 Polyethylene Glycol (Miralax) 17 gm DAILYPRN PRN GT Constipation 09/16/19 18:44 10/16/19 18:43 Sitagliptin Phosphate (Januvia) 50 mg ACBREAKFAST GT 09/17/19 06:30 10/15/19 06:29 10/05/19 05:57 Sodium Polystyrene Sulfonate (Kayexalate) 30 gm Q8HR ONCE GT 10/05/19 14:00 10/05/19 14:01 Sodium Chloride 1,000 ml @ 100 mls/hr Q10H IV 10/03/19 08:15 11/02/19 08:14 10/05/19 09:54 Tamsulosin HCl (Flomax) 0.4 mg DAILY ORAL 09/17/19 09:00 10/17/19 08:59 10/05/19 08:47 Trimethoprim/ Sulfamethoxazole 28 ml/Dextrose 578 ml @ 385.333 mls/hr [id number] BACTRIM IV 10/02/19 16:00 10/09/19 15:59 10/05/19 08:46 Laboratory Tests 10/05/19 04:30: White Blood Count 14.2H, Red Blood Count 2.80L, Hemoglobin 7.7L, Hematocrit 24.1L, Mean Corpuscular Volume 86, Mean Corpuscular Hemoglobin 27.5, Mean Corpuscular Hemoglobin Concent 31.9L, Red Cell Distribution Width 17.1H, Platelet Count 440, Mean Platelet Volume 7.1, Neutrophils (%) (Auto) , Lymphocytes (%) (Auto) , Monocytes (%) (Auto) , Eosinophils (%) (Auto) , Basophils (%) (Auto) , Differential Total Cells Counted 100, Neutrophils % ( Manual) 75, Lymphocytes % (Manual) 11L, Monocytes % (Manual) 6, Eosinophils % ( Manual) 8H, Basophils % (Manual) 0, Band Neutrophils 0, Platelet Estimate Adequate, Platelet Morphology Normal, Hypochromasia 1+, Anisocytosis 1+, Erythrocyte Sedimentation Rate 67H, Sodium Level 130L, Potassium Level 5.9H, Chloride Level 97L, Carbon Dioxide Level 23, Anion Gap 10, Blood Urea Nitrogen 16, Creatinine 1.2, Estimat Glomerular Filtration Rate > 60, Glucose Level 161H , Uric Acid 3.3, Calcium Level 10.3H, Phosphorus Level 3.1, Magnesium Level 1.7L , Total Bilirubin 0.2, Aspartate Amino Transf (AST/SGOT) 27, Alanine Aminotransferase (ALT/SGPT) 22, Alkaline Phosphatase 104, C-Reactive Protein, Quantitative 16.0H, Pro-B-Type Natriuretic Peptide 218H, Total Protein 8.4H, Albumin 2.3L, Globulin 6.1, Albumin/Globulin Ratio 0.4L Height (Feet): 5 Height (Inches): 7.00 Weight (Pounds): 195 Objective exam stable kendrick indwelling, yellow/hermelindo urine, some debris CT C/A/P (09/28) noted Manohar Villarreal MD Oct 05, 2019 10:14
[2019-10-05] MEDS ORDERED: Tubing IV Secondary IV ONE (10:43)
[2019-10-05 12:00] VITALS: BP 128/69
--- NOTE | 2019-10-05 12:21 | Infectious Diseases Prog Note ---
Assessment/Plan Assessment/Plan Assessment: Sepsis, recurrent- Persistent CRE K.pna bacteremia- ?source- fluid collection with serous fluid- r/ o abscess, cx pending -09/30 SP US guided aspiration: Small amount of serous fluid aspirated from left flank fluid collection. No gisselle pus so collection is presumably not an abscess; no drain placed. Note, however, the presence of considerable residual tissue with hyperemia. This most likely represents hyperemic scar tissue but this should be followed up to exclude tumor --cx neg Probable cystitis/pyelonephritis -09/28 CT c/ab/p: Left lower lobe segmental and subsegmental pulmonary emboli . Bibasilar atelectasis/consolidations. 10 mm low-density lesion in right thyroid. Heterogeneous large areas of hypoattenuation in the right lobe of the liver, maybe fatty changes, correlate for hepatitis or other process. Contracted gallbladder with thickened enhancing wall. Left lateral abdominal wall musculature 1.5 x 2.2 cm fluid collection with enhancing worrisome for an abscess. Bilateral renal stones, staghorn type in the left kidney, nonobstructive. Mild fullness of the right renal pelvis. Mild bilateral perinephric stranding, correlate for infection.Kendrick catheter in urinary bladder. Thickening of the urinary bladder with mild stranding may be cystitis. A few small calcifications in the left urinary bladder base. -10/03 BCx 1/4 GNR -10/02 Bcx 1/4 CRE K.pna -09/29 Bx neg -09/27 Bcx 2/4 CRE K.pna (I Genta; S bactrim, tigecycline) ; -09/25 Cdiff neg CXR: Left pleural effusion is unchanged. Left perihilar atelectasis is unchanged. Tracheostomy again demonstrated. Bcx 4/ MDR K. pna (S only to tigecycline, bactrim; R Meropenem, Amikacin, Colistin, Polymixin B) u/a wbc 15-20, nit neg, leuk +2; ucx C. parapsilopsis Fever, improving Leukocytosis, recurrent; improving Pulmonary Emboli UTI, sp rx Probable PNA,sp Rx -Bcx Neg -u/a wbc tnct, nit neg, leuk +3; ucx C. parasilopsis -sp cx ESBL P. mirabilis, MDR P. stuarti (S Cefepime, Zosyn, Ertapenem) -CXR: Geographic density overlying the right upper lung. This likely represents overlying soft tissue although cannot exclude an underlying consolidation/pneumonia. Pulmonary vascular congestion. Small left pleural effusion. Subsegmental atelectasis versus infiltrate in the left lung base. -Influenza A/B ag neg DIVYA, SP Mild AST elevation, SP -Abd uS: Hepatomegaly with fatty infiltration. Suspected nonobstructive stone left kidney. Left renal cyst Sacral decubitus hx of recurrent UTIs -UCx 11/17/18 P.a. (R Levo, otherwise S) - CT abd 11/19/18 3 mm distal right ureteral calculus, minimal resultant hydronephrosis. Atrophic left kidney, containing a large staghorn calculus and multiple intrarenal calyceal calculi, previously described UCx 11/23/18 - Enterobacter (S Cefepime) and yeast and Pa HTN CKD ICH s/p craniotomy and STREET [employer] shunt now w/ persistent vegetative state dysphagia s/p GT Chronic resp failure - vent/trach dependent ICH COPD DM Seizure disorder BPH Dysphagia, G tube Colostomy [facility] resident Plan: -Continue IV Bactrim #7 and add PO Minocycline #6 for MDR/CRE K.pna bacteremia -Cont PO fluconazole #7 for likely jesús cystitis/pyelo (+staghorn calculus, chronic kendrick, prolonged antibiotic treatment) -Add empiric Daptomycin #3 from gram variable rods pending ID -09/30 SP IV POlymixin B #2 -09/29 SP Meropenem #5, IV Amikacin #3 -09/27 SP IV Vancomycin #3 -/ SP ertapenem #4 - 09/19/10 S/P Meropenem - 09/17 SP IV Vancomycin #4 - 09/14 SP Cefepime x1 -f/u cx -Monitor CBC/CMP, temperatures -PEG/Trach care -aspiration precautions -wound care -Repeat Bcx 2 -f/u fluid collection cytology -poor px: goals of care to be define Thank you for this consultation. Will continue to follow along with you. Discussed with RN Subjective Allergies: Coded Allergies: AZTREONAM (Verified Allergy, Unknown, 05/13/18) Subjective Tm 101 wbc improving bacteremic Cr increased Objective Vital Signs Last 24 Hour Vital Signs Date Time Temp Pulse Resp B/P (MAP) Pulse Ox O2 Delivery O2 Flow Rate FiO2 10/05/19 08:47 101 134/78 10/05/19 08:00 30 10/05/19 08:00 108 10/05/19 08:00 Mechanical Ventilator 10/05/19 08:00 98.4 101 15 134/78 (96) 98 10/05/19 07:26 102 14 30 10/05/19 05:03 95 14 30 10/05/19 04:00 97.2 93 16 144/75 (98) 100 10/05/19 04:00 Mechanical Ventilator 10/05/19 04:00 30 10/05/19 03:42 96 10/05/19 03:30 91 15 30 10/05/19 01:29 94 14 30 10/05/19 00:00 Mechanical Ventilator 10/05/19 00:00 97.0 93 15 132/80 (97) 99 10/04/19 23:50 93 10/04/19 23:14 90 14 30 10/04/19 21:30 92 14 30 10/04/19 20:36 103 124/68 10/04/19 20:00 30 10/04/19 20:00 Mechanical Ventilator 10/04/19 20:00 97.3 103 15 124/68 (86) 99 10/04/19 19:30 104 14 30 10/04/19 19:27 106 10/04/19 19:25 92 14 96 Mechanical Ventilator 30 10/04/19 17:09 100 15 30 10/04/19 16:00 97.2 100 14 126/73 (90) 100 10/04/19 16:00 30 10/04/19 16:00 Mechanical Ventilator 10/04/19 15:53 100 10/04/19 14:49 98 14 30 10/04/19 13:16 97 14 30 10/04/19 13:10 97 Height (Feet): 5 Height (Inches): 7.00 Weight (Pounds): 195 Objective GENERAL: Noncommunicative. Tongue fasciculation. Moderate edema. LUNGS: Diminished breath sounds. CARDIAC: Regular rhythm. Rapid rate. Normal S1, S2. ABDOMEN: Soft with G-tube and colostomy bag. Microbiology Date/Time Source Procedure Growth Status 10/03/19 16:15 Blood Blood Culture - Preliminary Resulted 10/03/19 16:00 Blood Blood Culture - Preliminary NO GROWTH AFTER 24 HOURS Resulted 10/02/19 18:30 Blood Blood Culture - Preliminary NO GROWTH AFTER 48 HOURS Resulted 10/02/19 18:20 Blood Blood Culture - Final K.pneumoniae Carbapenem Resist Complete 10/02/19 15:45 Urine,Clean Catch Urine Culture - Final Jesús Parapsilosis Complete Laboratory Tests Test 10/05/19 04:30 White Blood Count 14.2 K/UL (4.8-10.8) H Red Blood Count 2.80 M/UL (4.70-6.10) L Hemoglobin 7.7 G/DL (14.2-18.0) L Hematocrit 24.1 % (42.0-52.0) L Mean Corpuscular Volume 86 FL (80-99) Mean Corpuscular Hemoglobin 27.5 PG (27.0-31.0) Mean Corpuscular Hemoglobin Concent 31.9 G/DL (32.0-36.0) L Red Cell Distribution Width 17.1 % (11.6-14.8) H Platelet Count 440 K/UL (150-450) Mean Platelet Volume 7.1 FL (6.5-10.1) Neutrophils (%) (Auto) % (45.0-75.0) Lymphocytes (%) (Auto) % (20.0-45.0) Monocytes (%) (Auto) % (1.0-10.0) Eosinophils (%) (Auto) % (0.0-3.0) Basophils (%) (Auto) % (0.0-2.0) Differential Total Cells Counted 100 Neutrophils % (Manual) 75 % (45-75) Lymphocytes % (Manual) 11 % (20-45) L Monocytes % (Manual) 6 % (1-10) Eosinophils % (Manual) 8 % (0-3) H Basophils % (Manual) 0 % (0-2) Band Neutrophils 0 % (0-8) Platelet Estimate Adequate Platelet Morphology Normal Hypochromasia 1+ Anisocytosis 1+ Erythrocyte Sedimentation Rate 67 MM/HR (0-20) H Sodium Level 130 MMOL/L (136-145) L Potassium Level 5.9 MMOL/L (3.5-5.1) H Chloride Level 97 MMOL/L (98-107) L Carbon Dioxide Level 23 MMOL/L (21-32) Anion Gap 10 mmol/L (5-15) Blood Urea Nitrogen 16 mg/dL (7-18) Creatinine 1.2 MG/DL (0.55-1.30) Estimat Glomerular Filtration Rate > 60 mL/min (>60) Glucose Level 161 MG/DL (74-106) H Uric Acid 3.3 MG/DL (2.6-7.2) Calcium Level 10.3 MG/DL (8.5-10.1) H Phosphorus Level 3.1 MG/DL (2.5-4.9) Magnesium Level 1.7 MG/DL (1.8-2.4) L Total Bilirubin 0.2 MG/DL (0.2-1.0) Aspartate Amino Transf (AST/SGOT) 27 U/L (15-37) Alanine Aminotransferase (ALT/SGPT) 22 U/L (12-78) Alkaline Phosphatase 104 U/L (46-116) C-Reactive Protein, Quantitative 16.0 mg/dL (0.00-0.90) H Pro-B-Type Natriuretic Peptide 218 pg/mL (0-125) H Total Protein 8.4 G/DL (6.4-8.2) H Albumin 2.3 G/DL (3.4-5.0) L Globulin 6.1 g/dL Albumin/Globulin Ratio 0.4 (1.0-2.7) L Current Medications Medications (Trade) Dose Ordered Sig/Va Route PRN Reason Start Time Stop Time Status Last Admin Dose Admin Acetaminophen (Tylenol) 650 mg Q4H PRN GT Mild Pain/Temp > 100.6 09/16/19 18:42 10/16/19 18:41 10/03/19 20:38 Apixaban (Eliquis) 5 mg BID GT 10/02/19 18:02 11/01/19 18:01 10/05/19 08:46 Artificial Tears (Akwa-Tears) 2 drop Q12HR BOTH EYES 09/16/19 21:00 10/14/19 20:59 10/05/19 08:47 Baclofen (Lioresal) 10 mg THREE TIMES A DAY GT 09/17/19 09:00 10/14/19 17:59 10/05/19 08:46 Calcitonin Roxton (Miacalcin) 1 sprays DAILY NASAL 09/18/19 12:00 10/18/19 11:59 10/05/19 08:47 Chlorhexidine Gluconate (Rebecca-Hex 2%) 1 applic DAILY@1999 TOPIC 09/26/19 20:00 10/26/19 19:59 10/04/19 20:36 Clobetasol Propionate (Temovate) 1 applic EVERY 12 HOURS TOPIC 09/16/19 21:00 10/14/19 20:59 10/05/19 08:47 Daptomycin 550 mg/ Sodium Chloride 55 ml @ 100 mls/hr Q24H IV 10/03/19 18:00 10/10/19 17:59 10/04/19 18:17 Dextrose (Dextrose 50%) 25 ml Q30M PRN IV Hypoglycemia 09/16/19 18:45 10/14/19 14:44 Dextrose (Dextrose 50%) 50 ml Q30M PRN IV Hypoglycemia 09/16/19 18:45 10/14/19 14:44 Famotidine (Pepcid) 20 mg BID GT 09/18/19 18:00 10/18/19 17:59 10/05/19 08:46 Fenofibrate (Tricor) 145 mg DAILY ORAL 09/17/19 09:00 10/15/19 08:59 10/05/19 08:46 Fluconazole (Diflucan) 400 mg DAILY GT 10/02/19 09:00 10/06/19 13:46 10/05/19 08:46 Insulin Aspart (NovoLOG) EVERY 6 HOURS SUBQ 09/20/19 12:00 10/14/19 16:29 10/05/19 06:07 Levetiracetam (Keppra) 1,000 mg Q8H GT 09/19/19 02:00 10/19/19 01:59 10/05/19 09:53 Magnesium Sulfate 100 ml @ 100 mls/hr Q1H IVPB 10/05/19 12:00 10/05/19 13:59 Metoprolol Tartrate (Lopressor) 25 mg Q12HR GT 10/04/19 09:00 11/03/19 08:59 10/05/19 08:47 Minocycline HCl (Minocin) 100 mg Q12HR@0600,1800 ORAL 10/01/19 06:00 10/08/19 05:59 10/05/19 05:57 Ondansetron HCl (Zofran) 4 mg Q6H PRN IVP Nausea & Vomiting 09/16/19 18:44 10/16/19 18:43 Polyethylene Glycol (Miralax) 17 gm DAILYPRN PRN GT Constipation 09/16/19 18:44 10/16/19 18:43 Sitagliptin Phosphate (Januvia) 50 mg ACBREAKFAST GT 09/17/19 06:30 10/15/19 06:29 10/05/19 05:57 Sodium Polystyrene Sulfonate (Kayexalate) 30 gm ONCE GT 10/05/19 22:00 10/05/19 23:00 Sodium Polystyrene Sulfonate (Kayexalate) 30 gm Q8HR ONCE GT 10/05/19 14:00 10/05/19 14:01 Sodium Chloride 1,000 ml @ 100 mls/hr Q10H IV 10/03/19 08:15 11/02/19 08:14 10/05/19 09:54 Tamsulosin HCl (Flomax) 0.4 mg DAILY ORAL 09/17/19 09:00 10/17/19 08:59 10/05/19 08:47 Trimethoprim/ Sulfamethoxazole 28 ml/Dextrose 578 ml @ 385.333 mls/hr V5GH-PR BACTRIM IV 10/02/19 16:00 10/09/19 15:59 10/05/19 08:46 Maribel Barrera M.D. Oct 05, 2019 12:21
[2019-10-05] MEDS ORDERED: Sodium Polystyrene Sulfonate 15gm Powder GT ONE (14:00)
[2019-10-05 16:00] VITALS: BP 139/74
[2019-10-05] MEDS: DAPTOmycin 550 MG in NS 55 ML IV SCH (18:10)
[2019-10-05 20:00] VITALS: BP 132/81
[2019-10-05] MEDS: Dyna-Hex 2% Top Sol 2oz TOPIC SCH (20:37)
[2019-10-06] VITALS: BP 139/89
--- NOTE | 2019-10-06 00:31 | Progress Note ---
DATE: 10/05/2019 SUBJECTIVE: The patient is not awake, not alert, afebrile and hemodynamically stable. PHYSICAL EXAMINATION: VITAL SIGNS: Blood pressure 128/69, his pulse is 93, respirations 15, and temperature 98.4. HEENT: Eyes were normal. ENT, mucous membranes were moist and intact. NECK: Supple with no JVD without lymph nodes. Tracheostomy site is clean. LUNGS: Clear without rhonchi, rales, or wheezing. Secretions are small, thin, and hodgson. HEART: Normal sounds with regular beats. There is no S3, S4, or pericardial rub. ABDOMEN: Soft and nontender with normal bowel sounds. Gastrostomy site is clean. EXTREMITIES: Warm without cyanosis, clubbing, or edema. LABORATORY AND DIAGNOSTIC DATA: Hemoglobin is 7.7, hematocrit 24.1 with MCV of 86, WBC 14.2, and platelets 440. BUN and creatinine are 16 and 1.2 respectively. Sodium is 130, potassium 5.9, chloride 97, CO2 23, his calcium is 10.3, phosphorus 3.9, and magnesium 1.7. IMPRESSION: The patient has hyperkalemia Kayexalate 30 g via G-tube daily too. The patient has a drop in H and H. Repeat laboratory tests will be done in the morning. Family would make a decision by tomorrow, they want the patient to have terminal decannulation. Repeat laboratory tests will be done in the morning. Sariah Bhat M.D. DR: Elliott JOB#: [id number] CC:
[2019-10-06] MEDS: levETIRAcetam 500mg/5ml Liquid GT SCH ×3 (02:36→17:30)
[2019-10-06 04:00] VITALS: BP 126/80
[2019-10-06 05:02] LABS: BASOPHILS % (AUTO) 0.6 % (0.0-2.0); EOSINOPHILS % (AUTO) 7.7 % (0.0-3.0); HEMATOCRIT 25.9 % (42.0-52.0); HEMOGLOBIN 8.3 G/DL (14.2-18.0); LYMPHOCYTES % (AUTO) 15.6 % (20.0-45.0); MEAN CORPUSCULAR VOLUME 86 FL (80-99); MONOCYTES % (AUTO) 4.1 % (1.0-10.0); PLATELET COUNT 535 K/UL (150-450); RED BLOOD COUNT 3.02 M/UL (4.70-6.10); RED CELL DISTRIBUTION WIDTH 17.7 % (11.6-14.8); WHITE BLOOD COUNT 14.1 K/UL (4.8-10.8)
[2019-10-06 05:19] LABS: ALANINE AMINOTRANSFERASE 23 U/L (12-78); ALBUMIN 2.5 G/DL (3.4-5.0); ALBUMIN/GLOBULIN RATIO 0.4 (1.0-2.7); ALKALINE PHOSPHATASE 95 U/L (46-116); ANION GAP 9 mmol/L (5-15); ASPARTATE AMINO TRANSFERASE 29 U/L (15-37); BILIRUBIN,TOTAL 0.2 MG/DL (0.2-1.0); BLOOD UREA NITROGEN 15 mg/dL (7-18); CALCIUM 10.4 MG/DL (8.5-10.1); CARBON DIOXIDE 25 MMOL/L (21-32); CHLORIDE 93 MMOL/L (98-107); CREATININE 1.3 MG/DL (0.55-1.30); POTASSIUM 5.3 MMOL/L (3.5-5.1); SODIUM 127 MMOL/L (136-145)
[2019-10-06] MEDS: Minocycline HCl 50mg cap ORAL SCH ×2 (06:10→17:31)
[2019-10-06] MEDS: sitaGLIPtin 50mg tab GT SCH (06:10)
[2019-10-06] MEDS: NovoLOG Insulin Flexpen SUBQ SCH ×3 (06:13→18:35)
[2019-10-06 08:00] VITALS: BP 145/72
--- NOTE | 2019-10-06 09:52 | Nephrology Progress Note ---
Assessment/Plan Problem List: (1) Renal failure (ARF), acute on chronic Assessment: Cr rising and hyperKalemia (2) Urinary retention (3) Acute on chronic respiratory failure (4) Hypercalcemia Assessment Hypercalcemia Urinary retention, BPH , Acute on chronic renal failure Electrolyte imbalance Colostomy DM PEG Vegetative state Acute on chronic respiratory failure Plan Kayexelate as needed as needed 3% Saline and NS need to avoid nephrotoxics as possible urine studies K and Phos and Mag supplements as needed pulm support Aredia for high Ca on 09/18 redose 09/23 and 10/06 Subjective ROS Limited/Unobtainable: Yes Objective Objective Last 24 Hour Vital Signs Date Time Temp Pulse Resp B/P (MAP) Pulse Ox O2 Delivery O2 Flow Rate FiO2 10/06/19 09:30 134 19 30 10/06/19 07:00 120 18 30 10/06/19 05:28 120 18 30 10/06/19 04:00 Mechanical Ventilator 10/06/19 04:00 97.8 114 17 126/80 (95) 100 10/06/19 04:00 30 10/06/19 03:34 109 10/06/19 03:28 106 16 30 10/06/19 01:41 111 17 30 10/06/19 00:00 Mechanical Ventilator 10/06/19 00:00 97.2 104 15 139/89 (106) 100 10/06/19 00:00 30 10/05/19 23:37 104 15 30 10/05/19 23:34 108 10/05/19 21:47 104 14 30 10/05/19 20:38 103 132/81 10/05/19 20:00 97.8 103 14 132/81 (98) 100 10/05/19 20:00 100 10/05/19 20:00 30 10/05/19 20:00 Mechanical Ventilator 10/05/19 19:50 100 14 30 10/05/19 17:16 95 16 30 10/05/19 16:00 98.0 96 15 139/74 (95) 96 10/05/19 16:00 97 10/05/19 16:00 Mechanical Ventilator 10/05/19 16:00 30 10/05/19 14:40 100 15 30 10/05/19 13:00 95 14 30 10/05/19 12:00 97 10/05/19 12:00 98.4 93 15 128/69 (88) 97 10/05/19 12:00 30 10/05/19 12:00 Mechanical Ventilator 10/05/19 11:05 95 14 30 Intake and Output 10/05/19 10/06/19 19:00 07:00 Intake Total 3621.329 ml 2539.666 ml Output Total 3050 ml 2710 ml Balance 571.329 ml -170.334 ml Free Water 300 ml 200 ml IV Total 2541.329 ml 1559.666 ml Tube Feeding 780 ml 780 ml Output Urine Total 2900 ml 2350 ml Stool Total 150 ml 360 ml Laboratory Tests 10/06/19 04:00: White Blood Count 14.1H, Red Blood Count 3.02L, Hemoglobin 8.3L, Hematocrit 25.9L, Mean Corpuscular Volume 86, Mean Corpuscular Hemoglobin 27.6, Mean Corpuscular Hemoglobin Concent 32.2, Red Cell Distribution Width 17.7H, Platelet Count 535H, Mean Platelet Volume 6.3L, Neutrophils (%) (Auto) 72.0, Lymphocytes (%) (Auto) 15.6L, Monocytes (%) (Auto) 4.1, Eosinophils (%) (Auto) 7.7H, Basophils (%) (Auto) 0.6, Sodium Level 127L, Potassium Level 5.3H, Chloride Level 93L, Carbon Dioxide Level 25, Anion Gap 9, Blood Urea Nitrogen 15 , Creatinine 1.3, Estimat Glomerular Filtration Rate > 60, Glucose Level 223H, Calcium Level 10.4H, Total Bilirubin 0.2, Aspartate Amino Transf (AST/SGOT) 29, Alanine Aminotransferase (ALT/SGPT) 23, Alkaline Phosphatase 95, Total Protein 9.0H, Albumin 2.5L, Globulin 6.5, Albumin/Globulin Ratio 0.4L Height (Feet): 5 Height (Inches): 7.00 Weight (Pounds): 193 General Appearance: no apparent distress EENT: other - trach Cardiovascular: tachycardia Respiratory/Chest: decreased breath sounds Abdomen: distended Objective no change Cl Zaragoza MD Oct 06, 2019 09:52
[2019-10-06] MEDS ORDERED: Sodium Polystyrene Sulfonate 15gm Powder ORAL SCH (10:00)
[2019-10-06] MEDS: Tamsulosin 0.4mg cap ORAL SCH (10:10)
[2019-10-06] MEDS: Eliquis 5mg tablet GT SCH ×2 (10:10→18:30)
[2019-10-06] MEDS: Fluconazole 100mg tab GT SCH (10:11)
[2019-10-06] MEDS: Clobetasol Cream 0.05% 15gm TOPIC SCH ×2 (10:11→20:40)
[2019-10-06 10:14] LABS: PHOSPHORUS 3.1 MG/DL (2.5-4.9)
--- NOTE | 2019-10-06 10:31 | Infectious Diseases Prog Note ---
Assessment/Plan Assessment/Plan Assessment: Sepsis, recurrent- Persistent CRE K.pna bacteremia- ?source- fluid collection with serous fluid- r/ o abscess, cx pending -09/30 SP US guided aspiration: Small amount of serous fluid aspirated from left flank fluid collection. No gisselle pus so collection is presumably not an abscess; no drain placed. Note, however, the presence of considerable residual tissue with hyperemia. This most likely represents hyperemic scar tissue but this should be followed up to exclude tumor --cx neg Probable cystitis/pyelonephritis -09/28 CT c/ab/p: Left lower lobe segmental and subsegmental pulmonary emboli . Bibasilar atelectasis/consolidations. 10 mm low-density lesion in right thyroid. Heterogeneous large areas of hypoattenuation in the right lobe of the liver, maybe fatty changes, correlate for hepatitis or other process. Contracted gallbladder with thickened enhancing wall. Left lateral abdominal wall musculature 1.5 x 2.2 cm fluid collection with enhancing worrisome for an abscess. Bilateral renal stones, staghorn type in the left kidney, nonobstructive. Mild fullness of the right renal pelvis. Mild bilateral perinephric stranding, correlate for infection.Kendrick catheter in urinary bladder. Thickening of the urinary bladder with mild stranding may be cystitis. A few small calcifications in the left urinary bladder base. -10/03 BCx 1/4 GNR -10/02 Bcx 1/4 CRE K.pna -09/29 Bx neg -09/27 Bcx 2/4 CRE K.pna (I Genta; S bactrim, tigecycline) ; -09/25 Cdiff neg CXR: Left pleural effusion is unchanged. Left perihilar atelectasis is unchanged. Tracheostomy again demonstrated. Bcx 4/ MDR K. pna (S only to tigecycline, bactrim; R Meropenem, Amikacin, Colistin, Polymixin B) u/a wbc 15-20, nit neg, leuk +2; ucx C. parapsilopsis Fever, improving Leukocytosis, recurrent; improving Pulmonary Emboli UTI, sp rx Probable PNA,sp Rx -Bcx Neg -u/a wbc tnct, nit neg, leuk +3; ucx C. parasilopsis -sp cx ESBL P. mirabilis, MDR P. stuarti (S Cefepime, Zosyn, Ertapenem) -CXR: Geographic density overlying the right upper lung. This likely represents overlying soft tissue although cannot exclude an underlying consolidation/pneumonia. Pulmonary vascular congestion. Small left pleural effusion. Subsegmental atelectasis versus infiltrate in the left lung base. -Influenza A/B ag neg DIVYA, SP Mild AST elevation, SP -Abd uS: Hepatomegaly with fatty infiltration. Suspected nonobstructive stone left kidney. Left renal cyst Sacral decubitus hx of recurrent UTIs -UCx 11/17/18 P.a. (R Levo, otherwise S) - CT abd 11/19/18 3 mm distal right ureteral calculus, minimal resultant hydronephrosis. Atrophic left kidney, containing a large staghorn calculus and multiple intrarenal calyceal calculi, previously described UCx 11/23/18 - Enterobacter (S Cefepime) and yeast and Pa HTN CKD ICH s/p craniotomy and EMERGENCY CARE TECH shunt now w/ persistent vegetative state dysphagia s/p GT Chronic resp failure - vent/trach dependent ICH COPD DM Seizure disorder BPH Dysphagia, G tube Colostomy SN[facility] resident Plan: -Continue IV Bactrim #8 and PO Minocycline #7 for MDR/CRE K.pna bacteremia -Cont PO fluconazole #8 for likely jesús cystitis/pyelo (+staghorn calculus, chronic kendrick, prolonged antibiotic treatment) -Add empiric Daptomycin #4 from gram variable rods pending ID -09/30 SP IV POlymixin B #2 -09/29 SP Meropenem #5, IV Amikacin #3 -09/27 SP IV Vancomycin #3 -/ SP ertapenem #4 - 09/19/10 S/P Meropenem - 09/17 SP IV Vancomycin #4 - 09/14 SP Cefepime x1 - 2 D Echo -f/u cx -Monitor CBC/CMP, temperatures -PEG/Trach care -aspiration precautions -wound care -f/u fluid collection cytology -poor px: goals of care to be define Thank you for this consultation. Will continue to follow along with you. Discussed with RN Subjective Allergies: Coded Allergies: AZTREONAM (Verified Allergy, Unknown, 05/13/18) Subjective Afebrile Leukocytosis On vent 30% O2 Objective Vital Signs Last 24 Hour Vital Signs Date Time Temp Pulse Resp B/P (MAP) Pulse Ox O2 Delivery O2 Flow Rate FiO2 10/06/19 10:12 122 145/72 10/06/19 09:30 134 19 30 10/06/19 07:00 120 18 30 10/06/19 05:28 120 18 30 10/06/19 04:00 Mechanical Ventilator 10/06/19 04:00 97.8 114 17 126/80 (95) 100 10/06/19 04:00 30 10/06/19 03:34 109 10/06/19 03:28 106 16 30 10/06/19 01:41 111 17 30 10/06/19 00:00 Mechanical Ventilator 10/06/19 00:00 97.2 104 15 139/89 (106) 100 10/06/19 00:00 30 10/05/19 23:37 104 15 30 10/05/19 23:34 108 10/05/19 21:47 104 14 30 10/05/19 20:38 103 132/81 10/05/19 20:00 97.8 103 14 132/81 (98) 100 10/05/19 20:00 100 10/05/19 20:00 30 10/05/19 20:00 Mechanical Ventilator 10/05/19 19:50 100 14 30 10/05/19 17:16 95 16 30 10/05/19 16:00 98.0 96 15 139/74 (95) 96 10/05/19 16:00 97 10/05/19 16:00 Mechanical Ventilator 10/05/19 16:00 30 10/05/19 14:40 100 15 30 10/05/19 13:00 95 14 30 10/05/19 12:00 97 10/05/19 12:00 98.4 93 15 128/69 (88) 97 10/05/19 12:00 30 10/05/19 12:00 Mechanical Ventilator 10/05/19 11:05 95 14 30 Height (Feet): 5 Height (Inches): 7.00 Weight (Pounds): 193 Objective GENERAL: NAD, Noncommunicative. Tongue fasciculation. LUNGS: Diminished breath sounds B/L CARDIAC: Regular rhythm. Rapid rate. Normal S1, S2. ABDOMEN: Soft with G-tube and colostomy bag. Microbiology Date/Time Source Procedure Growth Status 10/03/19 16:15 Blood Blood Culture - Preliminary Gram Negative Bacillus 1 Resulted 10/03/19 16:00 Blood Blood Culture - Preliminary NO GROWTH AFTER 48 HOURS Resulted Laboratory Tests Test 10/06/19 04:00 White Blood Count 14.1 K/UL (4.8-10.8) H Red Blood Count 3.02 M/UL (4.70-6.10) L Hemoglobin 8.3 G/DL (14.2-18.0) L Hematocrit 25.9 % (42.0-52.0) L Mean Corpuscular Volume 86 FL (80-99) Mean Corpuscular Hemoglobin 27.6 PG (27.0-31.0) Mean Corpuscular Hemoglobin Concent 32.2 G/DL (32.0-36.0) Red Cell Distribution Width 17.7 % (11.6-14.8) H Platelet Count 535 K/UL (150-450) H Mean Platelet Volume 6.3 FL (6.5-10.1) L Neutrophils (%) (Auto) 72.0 % (45.0-75.0) Lymphocytes (%) (Auto) 15.6 % (20.0-45.0) L Monocytes (%) (Auto) 4.1 % (1.0-10.0) Eosinophils (%) (Auto) 7.7 % (0.0-3.0) H Basophils (%) (Auto) 0.6 % (0.0-2.0) Sodium Level 127 MMOL/L (136-145) L Potassium Level 5.3 MMOL/L (3.5-5.1) H Chloride Level 93 MMOL/L (98-107) L Carbon Dioxide Level 25 MMOL/L (21-32) Anion Gap 9 mmol/L (5-15) Blood Urea Nitrogen 15 mg/dL (7-18) Creatinine 1.3 MG/DL (0.55-1.30) Estimat Glomerular Filtration Rate > 60 mL/min (>60) Glucose Level 223 MG/DL (74-106) H Calcium Level 10.4 MG/DL (8.5-10.1) H Phosphorus Level 3.1 MG/DL (2.5-4.9) Magnesium Level 1.9 MG/DL (1.8-2.4) Total Bilirubin 0.2 MG/DL (0.2-1.0) Aspartate Amino Transf (AST/SGOT) 29 U/L (15-37) Alanine Aminotransferase (ALT/SGPT) 23 U/L (12-78) Alkaline Phosphatase 95 U/L (46-116) Total Protein 9.0 G/DL (6.4-8.2) H Albumin 2.5 G/DL (3.4-5.0) L Globulin 6.5 g/dL Albumin/Globulin Ratio 0.4 (1.0-2.7) L Current Medications Medications (Trade) Dose Ordered Sig/Va Route PRN Reason Start Time Stop Time Status Last Admin Dose Admin Acetaminophen (Tylenol) 650 mg Q4H PRN GT Mild Pain/Temp > 100.6 09/16/19 18:42 10/16/19 18:41 10/03/19 20:38 Apixaban (Eliquis) 5 mg BID GT 10/02/19 18:02 11/01/19 18:01 10/06/19 10:10 Artificial Tears (Akwa-Tears) 2 drop Q12HR BOTH EYES 09/16/19 21:00 10/14/19 20:59 10/06/19 10:12 Baclofen (Lioresal) 10 mg THREE TIMES A DAY GT 09/17/19 09:00 10/14/19 17:59 10/06/19 10:10 Calcitonin [place] (Miacalcin) 1 sprays DAILY NASAL 09/18/19 12:00 10/18/19 11:59 10/06/19 10:11 Chlorhexidine Gluconate (Rebecca-Hex 2%) 1 applic DAILY@1999 TOPIC 09/26/19 20:00 10/26/19 19:59 10/05/19 20:37 Clobetasol Propionate (Temovate) 1 applic EVERY 12 HOURS TOPIC 09/16/19 21:00 10/14/19 20:59 10/06/19 10:11 Daptomycin 550 mg/ Sodium Chloride 55 ml @ 100 mls/hr Q24H IV 10/03/19 18:00 10/10/19 17:59 10/05/19 18:10 Dextrose (Dextrose 50%) 25 ml Q30M PRN IV Hypoglycemia 09/16/19 18:45 10/14/19 14:44 Dextrose (Dextrose 50%) 50 ml Q30M PRN IV Hypoglycemia 09/16/19 18:45 10/14/19 14:44 Famotidine (Pepcid) 20 mg BID GT 09/18/19 18:00 10/18/19 17:59 10/06/19 10:10 Fenofibrate (Tricor) 145 mg DAILY ORAL 09/17/19 09:00 10/15/19 08:59 10/06/19 10:11 Fluconazole (Diflucan) 400 mg DAILY GT 10/06/19 09:00 10/11/19 13:46 10/06/19 10:11 Insulin Aspart (NovoLOG) EVERY 6 HOURS SUBQ 09/20/19 12:00 10/14/19 16:29 10/06/19 06:13 Levetiracetam (Keppra) 1,000 mg Q8H GT 09/19/19 02:00 10/19/19 01:59 10/06/19 10:10 Metoprolol Tartrate (Lopressor) 25 mg Q12HR GT 10/04/19 09:00 11/03/19 08:59 10/06/19 10:12 Minocycline HCl (Minocin) 100 mg Q12HR@0600,1800 ORAL 10/01/19 06:00 10/08/19 05:59 10/06/19 06:10 Ondansetron HCl (Zofran) 4 mg Q6H PRN IVP Nausea & Vomiting 09/16/19 18:44 10/16/19 18:43 Pamidronate Disodium 90 mg/ Sodium Chloride 550 ml @ 137.5 mls/ hr ONCE IVPB 10/06/19 11:00 10/06/19 15:00 Polyethylene Glycol (Miralax) 17 gm DAILYPRN PRN GT Constipation 09/16/19 18:44 10/16/19 18:43 Sitagliptin Phosphate (Januvia) 50 mg ACBREAKFAST GT 09/17/19 06:30 10/15/19 06:29 10/06/19 06:10 Sodium Polystyrene Sulfonate (Kayexalate) 45 gm ONCE ORAL 10/06/19 10:00 10/06/19 12:00 Sodium Chloride 250 ml @ 30 mls/hr ONCE ONCE IV 10/06/19 11:00 10/06/19 19:19 Tamsulosin HCl (Flomax) 0.4 mg DAILY ORAL 09/17/19 09:00 10/17/19 08:59 10/06/19 10:10 Trimethoprim/ Sulfamethoxazole 28 ml/Dextrose 578 ml @ 385.333 mls/hr Z3IN-HI BACTRIM IV 10/02/19 16:00 10/09/19 15:59 10/05/19 23:20 Kali Richter MD Oct 06, 2019 10:30
--- NOTE | 2019-10-06 10:35 | Pulmonolgy Critical Care Note ---
Critical Care - Asmt/Plan Problems: (1) Acute on chronic respiratory failure (2) Pulmonary embolism (3) Recurrent fever (4) Sepsis (5) ATN (acute tubular necrosis) (6) Colostomy in place (7) Diabetes mellitus (8) Vegetative state (9) Gastrostomy tube dependent Respiratory: monitor respiratory rate, adjust FIO2 Cardiac: continue to monitor HR/BP Renal: F/U I&O Infectious Disease: check cultures, continue antibiotics Gastrointestinal: hold feedings - for a few hours Endocrine: monitor blood sugar Hematologic: monitor H/H, transfuse if hgb<8.5, other - on Eliquis Neurologic: keep patient comfortable Prophylaxis: Protonix Notes Reviewed: mower mechanic, cardio Discussed with: nurses, consultants, case management rntraining program manager - Objective Last 24 Hour Vital Signs Date Time Temp Pulse Resp B/P (MAP) Pulse Ox O2 Delivery O2 Flow Rate FiO2 10/06/19 10:12 122 145/72 10/06/19 09:30 134 19 30 10/06/19 07:00 120 18 30 10/06/19 05:28 120 18 30 10/06/19 04:00 Mechanical Ventilator 10/06/19 04:00 97.8 114 17 126/80 (95) 100 10/06/19 04:00 30 10/06/19 03:34 109 10/06/19 03:28 106 16 30 10/06/19 01:41 111 17 30 10/06/19 00:00 Mechanical Ventilator 10/06/19 00:00 97.2 104 15 139/89 (106) 100 10/06/19 00:00 30 10/05/19 23:37 104 15 30 10/05/19 23:34 108 10/05/19 21:47 104 14 30 10/05/19 20:38 103 132/81 10/05/19 20:00 97.8 103 14 132/81 (98) 100 10/05/19 20:00 100 10/05/19 20:00 30 10/05/19 20:00 Mechanical Ventilator 10/05/19 19:50 100 14 30 10/05/19 17:16 95 16 30 10/05/19 16:00 98.0 96 15 139/74 (95) 96 10/05/19 16:00 97 10/05/19 16:00 Mechanical Ventilator 10/05/19 16:00 30 10/05/19 14:40 100 15 30 10/05/19 13:00 95 14 30 10/05/19 12:00 97 10/05/19 12:00 98.4 93 15 128/69 (88) 97 10/05/19 12:00 30 10/05/19 12:00 Mechanical Ventilator 10/05/19 11:05 95 14 30 Status: obtunded Condition: critical HEENT: atraumatic Neck: full ROM, trach Heart: HR/BP stable Abdomen: distended Extremities: no C/C/E Decubiti: location Micro: Microbiology Date/Time Source Procedure Growth Status 10/03/19 16:15 Blood Blood Culture - Preliminary Gram Negative Bacillus 1 Resulted 10/03/19 16:00 Blood Blood Culture - Preliminary NO GROWTH AFTER 48 HOURS Resulted Accucheck: 236 Critical Care - Subjective ROS Limited/Unobtainable: Yes Interval Events: large volume vomiting Condition: critical EKG Rhythm: Sinus Rhythm FI02: 30 Vent Support Breath Rate: 14 Vent Support Mode: AC Vent Tidal Volume: 600 Sputum Amount: Small PEEP: 5.0 PIP: 29 Tube Feeding Amount: 65 I&O: Intake and Output 10/05/19 10/06/19 19:00 07:00 Intake Total 3621.329 ml 2539.666 ml Output Total 3050 ml 2710 ml Balance 571.329 ml -170.334 ml Free Water 300 ml 200 ml IV Total 2541.329 ml 1559.666 ml Tube Feeding 780 ml 780 ml Output Urine Total 2900 ml 2350 ml Stool Total 150 ml 360 ml CXR: no changes Labs: Laboratory Tests Test 10/06/19 04:00 White Blood Count 14.1 K/UL (4.8-10.8) H Red Blood Count 3.02 M/UL (4.70-6.10) L Hemoglobin 8.3 G/DL (14.2-18.0) L Hematocrit 25.9 % (42.0-52.0) L Mean Corpuscular Volume 86 FL (80-99) Mean Corpuscular Hemoglobin 27.6 PG (27.0-31.0) Mean Corpuscular Hemoglobin Concent 32.2 G/DL (32.0-36.0) Red Cell Distribution Width 17.7 % (11.6-14.8) H Platelet Count 535 K/UL (150-450) H Mean Platelet Volume 6.3 FL (6.5-10.1) L Neutrophils (%) (Auto) 72.0 % (45.0-75.0) Lymphocytes (%) (Auto) 15.6 % (20.0-45.0) L Monocytes (%) (Auto) 4.1 % (1.0-10.0) Eosinophils (%) (Auto) 7.7 % (0.0-3.0) H Basophils (%) (Auto) 0.6 % (0.0-2.0) Sodium Level 127 MMOL/L (136-145) L Potassium Level 5.3 MMOL/L (3.5-5.1) H Chloride Level 93 MMOL/L (98-107) L Carbon Dioxide Level 25 MMOL/L (21-32) Anion Gap 9 mmol/L (5-15) Blood Urea Nitrogen 15 mg/dL (7-18) Creatinine 1.3 MG/DL (0.55-1.30) Estimat Glomerular Filtration Rate > 60 mL/min (>60) Glucose Level 223 MG/DL (74-106) H Calcium Level 10.4 MG/DL (8.5-10.1) H Phosphorus Level 3.1 MG/DL (2.5-4.9) Magnesium Level 1.9 MG/DL (1.8-2.4) Total Bilirubin 0.2 MG/DL (0.2-1.0) Aspartate Amino Transf (AST/SGOT) 29 U/L (15-37) Alanine Aminotransferase (ALT/SGPT) 23 U/L (12-78) Alkaline Phosphatase 95 U/L (46-116) Total Protein 9.0 G/DL (6.4-8.2) H Albumin 2.5 G/DL (3.4-5.0) L Globulin 6.5 g/dL Albumin/Globulin Ratio 0.4 (1.0-2.7) L Nico Goetz MD Oct 06, 2019 10:35
[2019-10-06] MEDS ORDERED: Sodium Polystyrene Sulfonate 15gm Powder ORAL ONE (10:45)
[2019-10-06] MEDS ORDERED: NaCl 3% 500ml 250 ML IV ONE (11:00)
[2019-10-06] MEDS ORDERED: Pamidronate Disodium Inj 90 MG in Sodium Chloride 550 ML IVPB SCH (11:00)
[2019-10-06] MEDS: TRIMETHOPRIM IV SCH ×2 (11:25→17:30)
[2019-10-06] MEDS: D5W IV SCH ×2 (11:25→17:30)
[2019-10-06] MEDS: SULFAMETHOXAZOLE IV SCH ×2 (11:25→17:30)
[2019-10-06] MEDS: Acetaminophen 650mg/20.3ml GT PRN ×2 (11:27→17:32)
[2019-10-06 12:00] VITALS: BP 133/94
--- NOTE | 2019-10-06 13:34 | Urology Progress Note ---
Assessment/Plan Status: stable Assessment/Plan: 1. Urinary retention. 2. BPH. 3. Neurogenic bladder. 4. Incontinence. 5. Pyuria/UTI/colonized. 6. Hematuria. 7. Proteinuria. 8. Renal insufficiency, acute possibly on chronic. 9. Renal cyst. 10. Nephrolithiasis. 11. Renal fullness. 12. Bladder calcifications. 13. POD # 19, cysto/optic urethrotomy. monitor clinically kendrick placed / hand irrigated and do PRN abx as ordered, pr ID diflucan added monitor WBC f/u on last blood cx renal fxn stable Subjective Allergies: Coded Allergies: AZTREONAM (Verified Allergy, Unknown, 05/13/18) Subjective all noted, kendrick draining, non-verbal Objective Last 24 Hour Vital Signs Date Time Temp Pulse Resp B/P (MAP) Pulse Ox O2 Delivery O2 Flow Rate FiO2 10/06/19 12:49 120 17 30 10/06/19 11:04 130 18 30 10/06/19 10:12 122 145/72 10/06/19 09:30 134 19 30 10/06/19 07:00 120 18 30 10/06/19 05:28 120 18 30 10/06/19 04:00 Mechanical Ventilator 10/06/19 04:00 97.8 114 17 126/80 (95) 100 10/06/19 04:00 30 10/06/19 03:34 109 10/06/19 03:28 106 16 30 10/06/19 01:41 111 17 30 10/06/19 00:00 Mechanical Ventilator 10/06/19 00:00 97.2 104 15 139/89 (106) 100 10/06/19 00:00 30 10/05/19 23:37 104 15 30 10/05/19 23:34 108 10/05/19 21:47 104 14 30 10/05/19 20:38 103 132/81 10/05/19 20:00 97.8 103 14 132/81 (98) 100 10/05/19 20:00 100 10/05/19 20:00 30 10/05/19 20:00 Mechanical Ventilator 10/05/19 19:50 100 14 30 10/05/19 17:16 95 16 30 10/05/19 16:00 98.0 96 15 139/74 (95) 96 10/05/19 16:00 97 10/05/19 16:00 Mechanical Ventilator 10/05/19 16:00 30 10/05/19 14:40 100 15 30 Intake and Output 10/05/19 10/06/19 19:00 07:00 Intake Total 3621.329 ml 2539.666 ml Output Total 3050 ml 2710 ml Balance 571.329 ml -170.334 ml Free Water 300 ml 200 ml IV Total 2541.329 ml 1559.666 ml Tube Feeding 780 ml 780 ml Output Urine Total 2900 ml 2350 ml Stool Total 150 ml 360 ml Microbiology Date/Time Source Procedure Growth Status 10/03/19 16:15 Blood Blood Culture - Preliminary Gram Negative Bacillus 1 Resulted 09/15/19 11:00 Nasal Nares - Final Complete 09/15/19 11:00 Nasal Nares - Final Complete 09/25/19 19:00 Stool Clostridium difficile Toxin Assay - Final Complete 10/02/19 15:45 Urine,Clean Catch Urine Culture - Final Camelia Parapsilosis Complete 09/30/19 16:00 Abdomen Anaerobic Culture - Final NO ANAEROBES ISOLATED Complete Current Medications Medications (Trade) Dose Ordered Sig/Va Route PRN Reason Start Time Stop Time Status Last Admin Dose Admin Acetaminophen (Tylenol) 650 mg Q4H PRN GT Mild Pain/Temp > 100.6 09/16/19 18:42 10/16/19 18:41 10/06/19 11:27 Apixaban (Eliquis) 5 mg BID GT 10/02/19 18:02 11/01/19 18:01 10/06/19 10:10 Artificial Tears (Akwa-Tears) 2 drop Q12HR BOTH EYES 09/16/19 21:00 10/14/19 20:59 10/06/19 10:12 Baclofen (Lioresal) 10 mg THREE TIMES A DAY GT 09/17/19 09:00 10/14/19 17:59 10/06/19 13:26 Calcitonin [place] (Miacalcin) 1 sprays DAILY NASAL 09/18/19 12:00 10/18/19 11:59 10/06/19 10:11 Chlorhexidine Gluconate (Rebecca-Hex 2%) 1 applic DAILY@1999 TOPIC 09/26/19 20:00 10/26/19 19:59 10/05/19 20:37 Clobetasol Propionate (Temovate) 1 applic EVERY 12 HOURS TOPIC 09/16/19 21:00 10/14/19 20:59 10/06/19 10:11 Daptomycin 550 mg/ Sodium Chloride 55 ml @ 100 mls/hr Q24H IV 10/03/19 18:00 10/10/19 17:59 10/05/19 18:10 Dextrose (Dextrose 50%) 25 ml Q30M PRN IV Hypoglycemia 09/16/19 18:45 10/14/19 14:44 Dextrose (Dextrose 50%) 50 ml Q30M PRN IV Hypoglycemia 09/16/19 18:45 10/14/19 14:44 Famotidine (Pepcid) 20 mg BID GT 09/18/19 18:00 10/18/19 17:59 10/06/19 10:10 Fenofibrate (Tricor) 145 mg DAILY ORAL 09/17/19 09:00 10/15/19 08:59 10/06/19 10:11 Fluconazole (Diflucan) 400 mg DAILY GT 10/06/19 09:00 10/11/19 13:46 10/06/19 10:11 Insulin Aspart (NovoLOG) EVERY 6 HOURS SUBQ 09/20/19 12:00 10/14/19 16:29 10/06/19 13:30 Levetiracetam (Keppra) 1,000 mg Q8H GT 09/19/19 02:00 10/19/19 01:59 10/06/19 10:10 Metoprolol Tartrate (Lopressor) 25 mg Q12HR GT 10/04/19 09:00 11/03/19 08:59 10/06/19 10:12 Minocycline HCl (Minocin) 100 mg Q12HR@0600,1800 ORAL 10/01/19 06:00 10/08/19 05:59 10/06/19 06:10 Ondansetron HCl (Zofran) 4 mg Q6H PRN IVP Nausea & Vomiting 09/16/19 18:44 10/16/19 18:43 10/06/19 11:28 Pamidronate Disodium 90 mg/ Sodium Chloride 550 ml @ 137.5 mls/ hr ONCE IVPB 10/06/19 11:00 10/06/19 15:00 10/06/19 11:27 Polyethylene Glycol (Miralax) 17 gm DAILYPRN PRN GT Constipation 09/16/19 18:44 10/16/19 18:43 Sitagliptin Phosphate (Januvia) 50 mg ACBREAKFAST GT 09/17/19 06:30 10/15/19 06:29 10/06/19 06:10 Sodium Polystyrene Sulfonate (Kayexalate w/ Sorb 15gm/60ml Susp) 30 gm Q8HR ORAL 10/06/19 14:00 11/05/19 13:59 UNV Sodium Chloride 250 ml @ 30 mls/hr ONCE ONCE IV 10/06/19 11:00 10/06/19 19:19 10/06/19 11:27 Tamsulosin HCl (Flomax) 0.4 mg DAILY ORAL 09/17/19 09:00 10/17/19 08:59 10/06/19 10:10 Trimethoprim/ Sulfamethoxazole 28 ml/Dextrose 578 ml @ 385.333 mls/hr [id number] BACTRIM IV 10/02/19 16:00 10/09/19 15:59 10/06/19 11:25 Laboratory Tests 10/06/19 04:00: White Blood Count 14.1H, Red Blood Count 3.02L, Hemoglobin 8.3L, Hematocrit 25.9L, Mean Corpuscular Volume 86, Mean Corpuscular Hemoglobin 27.6, Mean Corpuscular Hemoglobin Concent 32.2, Red Cell Distribution Width 17.7H, Platelet Count 535H, Mean Platelet Volume 6.3L, Neutrophils (%) (Auto) 72.0, Lymphocytes (%) (Auto) 15.6L, Monocytes (%) (Auto) 4.1, Eosinophils (%) (Auto) 7.7H, Basophils (%) (Auto) 0.6, Sodium Level 127L, Potassium Level 5.3H, Chloride Level 93L, Carbon Dioxide Level 25, Anion Gap 9, Blood Urea Nitrogen 15 , Creatinine 1.3, Estimat Glomerular Filtration Rate > 60, Glucose Level 223H, Calcium Level 10.4H, Phosphorus Level 3.1, Magnesium Level 1.9, Total Bilirubin 0.2, Aspartate Amino Transf (AST/SGOT) 29, Alanine Aminotransferase (ALT/SGPT) 23, Alkaline Phosphatase 95, Total Protein 9.0H, Albumin 2.5L, Globulin 6.5, Albumin/Globulin Ratio 0.4L Height (Feet): 5 Height (Inches): 7.00 Weight (Pounds): 193 Objective exam stable kendrick indwelling, yellow/hermelindo urine, some debris CT C/A/P (09/28) noted Manohar Villarreal MD Oct 06, 2019 13:34
[2019-10-06] MEDS ORDERED: Sodium Polystyrene Sulfon/Sorb 15gm/60ml Susp ORAL SCH (14:00)
[2019-10-06 16:00] VITALS: BP 133/92
[2019-10-06] MEDS: DAPTOmycin 550 MG in NS 55 ML IV SCH (18:29)
[2019-10-06 20:00] VITALS: BP 130/70
[2019-10-06] MEDS: Dyna-Hex 2% Top Sol 2oz TOPIC SCH (20:39)
[2019-10-07] VITALS: BP 131/89
[2019-10-07] MEDS: SULFAMETHOXAZOLE IV SCH ×3 (00:52→17:10)
[2019-10-07] MEDS: D5W IV SCH ×3 (00:52→17:10)
[2019-10-07] MEDS: TRIMETHOPRIM IV SCH ×3 (00:52→17:10)
[2019-10-07] MEDS: levETIRAcetam 500mg/5ml Liquid GT SCH ×3 (01:09→18:00)
[2019-10-07] MEDS: NovoLOG Insulin Flexpen SUBQ SCH ×4 (01:10→18:30)
--- NOTE | 2019-10-07 02:30 | Progress Note ---
DATE: 10/06/2019 CARDIOLOGY PROGRESS NOTE SUBJECTIVE: The patient has had episodes of increasing heart rates now. In the past this has corresponded to new infections. OBJECTIVE: VITAL SIGNS: Blood pressure 130/70, pulse 138, respirations 18. LUNGS: Bilateral breath sounds. CARDIAC: Regular rhythm, rapid rate. ABDOMEN: Soft. G-tube intact. LABORATORY DATA: White count 14, hemoglobin 8.3. Potassium 5.3, sodium 127. IMPRESSION: 1. Sinus tachycardia. 2. Pulmonary embolism. 3. Sepsis. 4. Respiratory failure. 5. Hyponatremia. 6. Hyperkalemia. 7. Hyperchloremia. 8. Severe protein-calorie malnutrition. PLAN: 1. Saline hydration. 2. Infectious Disease followup. 3. Full anticoagulation. 4. Consideration for more traditional beta-cristhian therapy for suppression of in the setting of increased PA systolic pressure on the right side. Kali Melgar M.D. DR: EFREN JOB#: [id number] CC:
[2019-10-07] MEDS: Acetaminophen 650mg/20.3ml GT PRN (03:46)
[2019-10-07 04:00] VITALS: BP 128/89
[2019-10-07 04:40] LABS: HEMATOCRIT 30.1 % (42.0-52.0); HEMOGLOBIN 9.7 G/DL (14.2-18.0); MEAN CORPUSCULAR VOLUME 85 FL (80-99); PLATELET COUNT 779 K/UL (150-450); RED BLOOD COUNT 3.55 M/UL (4.70-6.10); RED CELL DISTRIBUTION WIDTH 17.8 % (11.6-14.8); WHITE BLOOD COUNT 20.4 K/UL (4.8-10.8)
[2019-10-07 05:05] LABS: ANION GAP 12 mmol/L (5-15); BLOOD UREA NITROGEN 15 mg/dL (7-18); CALCIUM 9.9 MG/DL (8.5-10.1); CARBON DIOXIDE 24 MMOL/L (21-32); CHLORIDE 93 MMOL/L (98-107); CREATININE 1.6 MG/DL (0.55-1.30); POTASSIUM 4.9 MMOL/L (3.5-5.1); SODIUM 129 MMOL/L (136-145)
[2019-10-07] MEDS: Minocycline HCl 50mg cap ORAL SCH ×2 (05:31→18:00)
[2019-10-07] MEDS: sitaGLIPtin 50mg tab GT SCH (05:32)
--- NOTE | 2019-10-07 06:00 | Diagnostic Imaging Report ---
Indication: Vomiting Technique: Supine view of the abdomen Comparison: Family Literacy Coordinator image from CT scan 09/28/2019 Findings: There are dilated small bowel loops in the left mid abdomen. These are not evident on prior CT scan. Some gas is seen in the colon. No masses or unusual calcifications are demonstrated. Impression: Dilated left mid abdominal small bowel loops. This may reflect small bowel obstruction or ileus. This agrees with the preliminary interpretation provided [facility] by [facility].
--- NOTE | 2019-10-07 06:45 | Progress Note ---
DATE: 10/06/2019 SUBJECTIVE: The patient to undergo terminal decannulation today recurrent nausea, vomiting, and abdominal distention. PHYSICAL EXAMINATION: VITAL SIGNS: His blood pressure is 123/92, pulse is 127, respirations of 20, and temperature 99.1. HEENT: Eyes were normal. ENT, mucous membranes were moist and intact. Tongue is protruded and has repetitive movement. heart rate. NECK: Supple with no JVD without lymph nodes. Tracheostomy site is clean. LUNGS: Clear without rhonchi, rales, or wheezing. Secretions are small, thin, and beckman. HEART: Normal sounds with regular beat. There is tachycardia at rest. ABDOMEN: Soft, distended with normal bowel sounds. Gastrostomy site is clean. EXTREMITIES: Warm without cyanosis, clubbing, or edema. LABORATORY AND DIAGNOSTIC DATA: Hemoglobin is 8.3, hematocrit 25.9, MCV of 86, WBC of 14.1, and platelets is 525,000. His WBC was 14.2 yesterday and 13.6 on 10/03/2019. His BUN and creatinine are 15 and 1.3 respectively. Sodium is 137, potassium 5.6, chloride 93, CO2 is 25. His phosphorus is 3.1 and magnesium is 1.9. SGOT, SGPT, and alkaline phosphatase are normal. His albumin is 2.3 and total protein is 9.0. IMPRESSION: The patient has new-onset recurrent nausea and vomiting of large volume and tachycardia. Feeding was put on hold with Protonix 40 mg IV push q.24 h. and Zofran 4 mg IV push q.4 h. p.r.n. for nausea and vomiting. Repeat laboratory tests will be done in the a.m. In addition, KUB will be requested. Sariah Bhat M.D. DR: Fidel JOB#: [id number] CC:
[2019-10-07 07:00] VITALS: BP 121/80
[2019-10-07 08:00] VITALS: BP 139/84
[2019-10-07] MEDS: Clobetasol Cream 0.05% 15gm TOPIC SCH (08:32)
[2019-10-07] MEDS: Fluconazole 100mg tab GT SCH (09:42)
[2019-10-07] MEDS: Tamsulosin 0.4mg cap ORAL SCH (09:43)
[2019-10-07] MEDS: Eliquis 5mg tablet GT SCH ×2 (09:43→18:00)
--- NOTE | 2019-10-07 10:08 | Pulmonolgy Critical Care Note ---
Critical Care - Asmt/Plan Problems: (1) Acute on chronic respiratory failure (2) Pulmonary embolism (3) Recurrent fever (4) Sepsis (5) ATN (acute tubular necrosis) (6) Colostomy in place (7) Diabetes mellitus (8) Vegetative state (9) Gastrostomy tube dependent Respiratory: monitor respiratory rate, adjust FIO2, CXR Cardiac: continue to monitor HR/BP Renal: F/U I&O Infectious Disease: check cultures, continue antibiotics Gastrointestinal: continue feedings/current rate Endocrine: monitor blood sugar, other - kub reviewed, No acute changes Neurologic: PRN Ativan, PRN Morphine Affect: PRN ativan Prophylaxis: Protonix Time Spent (Minutes): 40 Notes 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: 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 loan analyst, renal Discussed with: nurses, consultants, case manager specialistlean manager - Objective Last 24 Hour Vital Signs Date Time Temp Pulse Resp B/P (MAP) Pulse Ox O2 Delivery O2 Flow Rate FiO2 10/07/19 09:43 175 139/84 10/07/19 08:45 169 22 30 10/07/19 08:00 98.6 175 24 139/84 (102) 100 10/07/19 07:27 170 24 30 10/07/19 07:00 98.6 160 22 121/80 (94) 100 10/07/19 05:29 160 21 30 10/07/19 04:16 100.4 10/07/19 04:00 30 10/07/19 04:00 149 10/07/19 04:00 Mechanical Ventilator 10/07/19 04:00 100.1 145 22 128/89 (102) 100 10/07/19 02:50 138 21 30 10/07/19 02:00 30 10/07/19 01:10 144 22 30 10/07/19 00:00 99.3 134 22 131/89 (103) 94 10/07/19 00:00 145 10/07/19 00:00 Mechanical Ventilator 10/06/19 22:45 145 21 30 10/06/19 21:14 143 21 30 10/06/19 20:41 138 130/70 10/06/19 20:00 99.3 138 20 130/70 (90) 100 10/06/19 20:00 30 10/06/19 20:00 136 10/06/19 20:00 Mechanical Ventilator 10/06/19 18:57 133 19 30 10/06/19 17:08 114 18 30 10/06/19 16:00 127 10/06/19 16:00 Mechanical Ventilator 10/06/19 16:00 99.1 127 20 133/92 (106) 100 10/06/19 16:00 30 10/06/19 14:46 112 18 30 10/06/19 12:49 120 17 30 10/06/19 12:00 99.3 140 20 133/94 (107) 100 10/06/19 12:00 30 10/06/19 12:00 122 10/06/19 12:00 Mechanical Ventilator 10/06/19 11:04 130 18 30 10/06/19 10:12 122 145/72 Status: obtunded Condition: critical HEENT: atraumatic Lungs: rales, rhonchi Heart: HR/BP stable Abdomen: soft, active bowel sounds Extremities: no C/C/E Micro: Microbiology Date/Time Source Procedure Growth Status 10/05/19 15:10 Blood Blood Culture - Preliminary NO GROWTH AFTER 24 HOURS Resulted 10/05/19 14:40 Blood Blood Culture - Preliminary Gram Negative Bacillus 1 Resulted Accucheck: 300 Critical Care - Subjective ROS Limited/Unobtainable: Yes Condition: critical EKG Rhythm: Sinus Rhythm FI02: 30 Vent Support Breath Rate: 14 Vent Support Mode: AC Vent Tidal Volume: 600 Sputum Amount: Small PEEP: 5.0 PIP: 33 Tube Feeding Amount: 65 I&O: Intake and Output 10/06/19 10/07/19 19:00 07:00 Intake Total 2650.666 ml 838.000 ml Output Total 1100 ml Balance 1550.666 ml 838.000 ml IV Total 2585.666 ml 578.000 ml Tube Feeding 65 ml 260 ml Output Urine Total 1100 ml Labs: Laboratory Tests Test 10/07/19 03:00 White Blood Count 20.4 K/UL (4.8-10.8) H Red Blood Count 3.55 M/UL (4.70-6.10) L Hemoglobin 9.7 G/DL (14.2-18.0) L Hematocrit 30.1 % (42.0-52.0) L Mean Corpuscular Volume 85 FL (80-99) Mean Corpuscular Hemoglobin 27.4 PG (27.0-31.0) Mean Corpuscular Hemoglobin Concent 32.3 G/DL (32.0-36.0) Red Cell Distribution Width 17.8 % (11.6-14.8) H Platelet Count 779 K/UL (150-450) H Mean Platelet Volume 6.5 FL (6.5-10.1) Neutrophils (%) (Auto) % (45.0-75.0) Lymphocytes (%) (Auto) % (20.0-45.0) Monocytes (%) (Auto) % (1.0-10.0) Eosinophils (%) (Auto) % (0.0-3.0) Basophils (%) (Auto) % (0.0-2.0) Differential Total Cells Counted 100 Neutrophils % (Manual) 74 % (45-75) Lymphocytes % (Manual) 11 % (20-45) L Monocytes % (Manual) 9 % (1-10) Eosinophils % (Manual) 3 % (0-3) Basophils % (Manual) 0 % (0-2) Band Neutrophils 3 % (0-8) Platelet Estimate Increased H Platelet Morphology Normal Hypochromasia 2+ Anisocytosis 1+ Spherocytes 1+ Sodium Level 129 MMOL/L (136-145) L Potassium Level 4.9 MMOL/L (3.5-5.1) Chloride Level 93 MMOL/L (98-107) L Carbon Dioxide Level 24 MMOL/L (21-32) Anion Gap 12 mmol/L (5-15) Blood Urea Nitrogen 15 mg/dL (7-18) Creatinine 1.6 MG/DL (0.55-1.30) H Estimat Glomerular Filtration Rate 55.3 mL/min (>60) Glucose Level 324 MG/DL (74-106) #H Calcium Level 9.9 MG/DL (8.5-10.1) Nico Goetz MD Oct 07, 2019 10:08
--- NOTE | 2019-10-07 10:10 | Infectious Diseases Prog Note ---
Assessment/Plan Assessment/Plan Assessment: Sepsis, recurrent- Persistent CRE K.pna bacteremia- ?source- fluid collection with serous fluid- r/ o abscess, cx pending -09/30 SP US guided aspiration: Small amount of serous fluid aspirated from left flank fluid collection. No gisselle pus so collection is presumably not an abscess; no drain placed. Note, however, the presence of considerable residual tissue with hyperemia. This most likely represents hyperemic scar tissue but this should be followed up to exclude tumor --cx neg Probable cystitis/pyelonephritis -09/28 CT c/ab/p: Left lower lobe segmental and subsegmental pulmonary emboli . Bibasilar atelectasis/consolidations. 10 mm low-density lesion in right thyroid. Heterogeneous large areas of hypoattenuation in the right lobe of the liver, maybe fatty changes, correlate for hepatitis or other process. Contracted gallbladder with thickened enhancing wall. Left lateral abdominal wall musculature 1.5 x 2.2 cm fluid collection with enhancing worrisome for an abscess. Bilateral renal stones, staghorn type in the left kidney, nonobstructive. Mild fullness of the right renal pelvis. Mild bilateral perinephric stranding, correlate for infection.Kendrick catheter in urinary bladder. Thickening of the urinary bladder with mild stranding may be cystitis. A few small calcifications in the left urinary bladder base. -10/03 BCx 1/4 GNR -10/02 Bcx 1/4 CRE K.pna -09/29 Bx neg -09/27 Bcx 2/4 CRE K.pna (I Genta; S bactrim, tigecycline) ; -09/25 Cdiff neg CXR: Left pleural effusion is unchanged. Left perihilar atelectasis is unchanged. Tracheostomy again demonstrated. Bcx 4/ MDR K. pna (S only to tigecycline, bactrim; R Meropenem, Amikacin, Colistin, Polymixin B) u/a wbc 15-20, nit neg, leuk +2; ucx C. parapsilopsis Fever, improving Leukocytosis, recurrent; improving Pulmonary Emboli UTI, sp rx Probable PNA,sp Rx -Bcx Neg -u/a wbc tnct, nit neg, leuk +3; ucx C. parasilopsis -sp cx ESBL P. mirabilis, MDR P. stuarti (S Cefepime, Zosyn, Ertapenem) -CXR: Geographic density overlying the right upper lung. This likely represents overlying soft tissue although cannot exclude an underlying consolidation/pneumonia. Pulmonary vascular congestion. Small left pleural effusion. Subsegmental atelectasis versus infiltrate in the left lung base. -Influenza A/B ag neg DIVYA, SP Mild AST elevation, SP -Abd uS: Hepatomegaly with fatty infiltration. Suspected nonobstructive stone left kidney. Left renal cyst Sacral decubitus hx of recurrent UTIs -UCx 11/17/18 P.a. (R Levo, otherwise S) - CT abd 11/19/18 3 mm distal right ureteral calculus, minimal resultant hydronephrosis. Atrophic left kidney, containing a large staghorn calculus and multiple intrarenal calyceal calculi, previously described UCx 11/23/18 - Enterobacter (S Cefepime) and yeast and Pa HTN CKD ICH s/p craniotomy and [employer] shunt now w/ persistent vegetative state dysphagia s/p GT Chronic resp failure - vent/trach dependent ICH COPD DM Seizure disorder BPH Dysphagia, G tube Colostomy SN[facility] resident Plan: -Continue IV Bactrim #9 and PO Minocycline #8 for MDR/CRE K.pna bacteremia -Cont PO fluconazole #9 for likely jesús cystitis/pyelo (+staghorn calculus, chronic kendrick, prolonged antibiotic treatment) - 10/07 SP Daptomycin #5 from gram variable rods pending ID -09/30 SP IV POlymixin B #2 -09/29 SP Meropenem #5, IV Amikacin #3 -09/27 SP IV Vancomycin #3 -09/23 SP ertapenem #4 - 09/19/10 S/P Meropenem - 09/17 SP IV Vancomycin #4 - 09/14 SP Cefepime x1 - 2 D Echo -f/u cx -Monitor CBC/CMP, temperatures -PEG/Trach care -aspiration precautions -wound care -f/u fluid collection cytology -poor px: goals of care to be define Thank you for this consultation. Will continue to follow along with you. Discussed with RN Subjective Allergies: Coded Allergies: AZTREONAM (Verified Allergy, Unknown, 05/13/18) Subjective Afebrile Leukocytosis increased On vent 30% O2 Objective Vital Signs Last 24 Hour Vital Signs Date Time Temp Pulse Resp B/P (MAP) Pulse Ox O2 Delivery O2 Flow Rate FiO2 10/07/19 09:43 175 139/84 10/07/19 08:45 169 22 30 10/07/19 08:00 98.6 175 24 139/84 (102) 100 10/07/19 07:27 170 24 30 10/07/19 07:00 98.6 160 22 121/80 (94) 100 10/07/19 05:29 160 21 30 10/07/19 04:16 100.4 10/07/19 04:00 30 10/07/19 04:00 149 10/07/19 04:00 Mechanical Ventilator 10/07/19 04:00 100.1 145 22 128/89 (102) 100 10/07/19 02:50 138 21 30 10/07/19 02:00 30 10/07/19 01:10 144 22 30 10/07/19 00:00 99.3 134 22 131/89 (103) 94 10/07/19 00:00 145 10/07/19 00:00 Mechanical Ventilator 10/06/19 22:45 145 21 30 10/06/19 21:14 143 21 30 10/06/19 20:41 138 130/70 10/06/19 20:00 99.3 138 20 130/70 (90) 100 10/06/19 20:00 30 10/06/19 20:00 136 10/06/19 20:00 Mechanical Ventilator 10/06/19 18:57 133 19 30 10/06/19 17:08 114 18 30 10/06/19 16:00 127 10/06/19 16:00 Mechanical Ventilator 10/06/19 16:00 99.1 127 20 133/92 (106) 100 10/06/19 16:00 30 10/06/19 14:46 112 18 30 10/06/19 12:49 120 17 30 10/06/19 12:00 99.3 140 20 133/94 (107) 100 10/06/19 12:00 30 10/06/19 12:00 122 10/06/19 12:00 Mechanical Ventilator 10/06/19 11:04 130 18 30 10/06/19 10:12 122 145/72 Height (Feet): 5 Height (Inches): 7.00 Weight (Pounds): 193 Objective GENERAL: NAD, Noncommunicative. Tongue fasciculation. LUNGS: Coarse B/L CARDIAC: Regular rhythm. Rapid rate. Normal S1, S2. ABDOMEN: Soft with G-tube and colostomy bag. Microbiology Date/Time Source Procedure Growth Status 10/05/19 15:10 Blood Blood Culture - Preliminary NO GROWTH AFTER 24 HOURS Resulted 10/05/19 14:40 Blood Blood Culture - Preliminary Gram Negative Bacillus 1 Resulted Laboratory Tests Test 10/07/19 03:00 White Blood Count 20.4 K/UL (4.8-10.8) H Red Blood Count 3.55 M/UL (4.70-6.10) L Hemoglobin 9.7 G/DL (14.2-18.0) L Hematocrit 30.1 % (42.0-52.0) L Mean Corpuscular Volume 85 FL (80-99) Mean Corpuscular Hemoglobin 27.4 PG (27.0-31.0) Mean Corpuscular Hemoglobin Concent 32.3 G/DL (32.0-36.0) Red Cell Distribution Width 17.8 % (11.6-14.8) H Platelet Count 779 K/UL (150-450) H Mean Platelet Volume 6.5 FL (6.5-10.1) Neutrophils (%) (Auto) % (45.0-75.0) Lymphocytes (%) (Auto) % (20.0-45.0) Monocytes (%) (Auto) % (1.0-10.0) Eosinophils (%) (Auto) % (0.0-3.0) Basophils (%) (Auto) % (0.0-2.0) Differential Total Cells Counted 100 Neutrophils % (Manual) 74 % (45-75) Lymphocytes % (Manual) 11 % (20-45) L Monocytes % (Manual) 9 % (1-10) Eosinophils % (Manual) 3 % (0-3) Basophils % (Manual) 0 % (0-2) Band Neutrophils 3 % (0-8) Platelet Estimate Increased H Platelet Morphology Normal Hypochromasia 2+ Anisocytosis 1+ Spherocytes 1+ Sodium Level 129 MMOL/L (136-145) L Potassium Level 4.9 MMOL/L (3.5-5.1) Chloride Level 93 MMOL/L (98-107) L Carbon Dioxide Level 24 MMOL/L (21-32) Anion Gap 12 mmol/L (5-15) Blood Urea Nitrogen 15 mg/dL (7-18) Creatinine 1.6 MG/DL (0.55-1.30) H Estimat Glomerular Filtration Rate 55.3 mL/min (>60) Glucose Level 324 MG/DL (74-106) #H Calcium Level 9.9 MG/DL (8.5-10.1) Current Medications Medications (Trade) Dose Ordered Sig/Va Route PRN Reason Start Time Stop Time Status Last Admin Dose Admin Acetaminophen (Tylenol) 650 mg Q4H PRN GT Mild Pain/Temp > 100.6 09/16/19 18:42 10/16/19 18:41 10/07/19 03:46 Apixaban (Eliquis) 5 mg BID GT 10/02/19 18:02 11/01/19 18:01 10/07/19 09:43 Artificial Tears (Akwa-Tears) 2 drop Q12HR BOTH EYES 09/16/19 21:00 10/14/19 20:59 10/07/19 08:32 Baclofen (Lioresal) 10 mg THREE TIMES A DAY GT 09/17/19 09:00 10/14/19 17:59 10/07/19 09:42 Calcitonin [place] (Miacalcin) 1 sprays DAILY NASAL 09/18/19 12:00 10/18/19 11:59 10/07/19 08:32 Chlorhexidine Gluconate (Rebecca-Hex 2%) 1 applic DAILY@2000 TOPIC 09/26/19 20:00 10/26/19 19:59 10/06/19 20:39 Clobetasol Propionate (Temovate) 1 applic EVERY 12 HOURS TOPIC 09/16/19 21:00 10/14/19 20:59 10/07/19 08:32 Daptomycin 550 mg/ Sodium Chloride 55 ml @ 100 mls/hr Q24H IV 10/03/19 18:00 10/10/19 17:59 10/06/19 18:29 Dextrose (Dextrose 50%) 25 ml Q30M PRN IV Hypoglycemia 09/16/19 18:45 10/14/19 14:44 Dextrose (Dextrose 50%) 50 ml Q30M PRN IV Hypoglycemia 09/16/19 18:45 10/14/19 14:44 Famotidine (Pepcid) 20 mg BID GT 09/18/19 18:00 10/18/19 17:59 10/07/19 09:43 Fenofibrate (Tricor) 145 mg DAILY ORAL 09/17/19 09:00 10/15/19 08:59 10/07/19 09:43 Fluconazole (Diflucan) 400 mg DAILY GT 10/06/19 09:00 10/11/19 13:46 10/07/19 09:42 Insulin Aspart (NovoLOG) EVERY 6 HOURS SUBQ 09/20/19 12:00 10/14/19 16:29 10/07/19 06:10 Levetiracetam (Keppra) 1,000 mg Q8H GT 09/19/19 02:00 10/19/19 01:59 10/07/19 09:42 Metoprolol Tartrate (Lopressor) 25 mg Q12HR GT 10/04/19 09:00 11/03/19 08:59 10/07/19 09:43 Minocycline HCl (Minocin) 100 mg Q12HR@0600,1800 ORAL 10/01/19 06:00 10/08/19 05:59 10/07/19 05:31 Ondansetron HCl (Zofran) 4 mg Q6H PRN IVP Nausea & Vomiting 09/16/19 18:44 10/16/19 18:43 10/06/19 11:28 Polyethylene Glycol (Miralax) 17 gm DAILYPRN PRN GT Constipation 09/16/19 18:44 10/16/19 18:43 Sitagliptin Phosphate (Januvia) 50 mg ACBREAKFAST GT 09/17/19 06:30 10/15/19 06:29 10/07/19 05:32 Tamsulosin HCl (Flomax) 0.4 mg DAILY ORAL 09/17/19 09:00 10/17/19 08:59 10/07/19 09:43 Trimethoprim/ Sulfamethoxazole 28 ml/Dextrose 578 ml @ 385.333 mls/hr [id number] BACTRIM IV 10/02/19 16:00 10/09/19 15:59 10/07/19 08:31 Kali Richter MD Oct 07, 2019 10:10
[2019-10-07 12:00] VITALS: BP 112/61
--- NOTE | 2019-10-07 12:23 | Urology Progress Note ---
Assessment/Plan Status: stable Assessment/Plan: 1. Urinary retention. 2. BPH. 3. Neurogenic bladder. 4. Incontinence. 5. Pyuria/UTI/colonized. 6. Hematuria. 7. Proteinuria. 8. Renal insufficiency, acute possibly on chronic. 9. Renal cyst. 10. Nephrolithiasis. 11. Renal fullness. 12. Bladder calcifications. 13. POD # 20, cysto/optic urethrotomy. monitor clinically kendrick placed 09/17 hand irrigated and do PRN abx as ordered, pr ID diflucan added monitor WBC f/u on last blood cx renal fxn stable Subjective Allergies: Coded Allergies: AZTREONAM (Verified Allergy, Unknown, 05/13/18) Subjective all noted, kendrick draining, non-verbal Objective Last 24 Hour Vital Signs Date Time Temp Pulse Resp B/P (MAP) Pulse Ox O2 Delivery O2 Flow Rate FiO2 10/07/19 11:11 77 25 30 10/07/19 09:43 175 139/84 10/07/19 08:45 169 22 30 10/07/19 08:00 30 10/07/19 08:00 98.6 175 24 139/84 (102) 100 10/07/19 08:00 Mechanical Ventilator 10/07/19 08:00 155 10/07/19 07:27 170 24 30 10/07/19 07:00 98.6 160 22 121/80 (94) 100 10/07/19 05:29 160 21 30 10/07/19 04:16 100.4 10/07/19 04:00 30 10/07/19 04:00 149 10/07/19 04:00 Mechanical Ventilator 10/07/19 04:00 100.1 145 22 128/89 (102) 100 10/07/19 02:50 138 21 30 10/07/19 02:00 30 10/07/19 01:10 144 22 30 10/07/19 00:00 99.3 134 22 131/89 (103) 94 10/07/19 00:00 145 10/07/19 00:00 Mechanical Ventilator 10/06/19 22:45 145 21 30 10/06/19 21:14 143 21 30 10/06/19 20:41 138 130/70 10/06/19 20:00 99.3 138 20 130/70 (90) 100 10/06/19 20:00 30 10/06/19 20:00 136 10/06/19 20:00 Mechanical Ventilator 10/06/19 18:57 133 19 30 10/06/19 17:08 114 18 30 10/06/19 16:00 127 10/06/19 16:00 Mechanical Ventilator 10/06/19 16:00 99.1 127 20 133/92 (106) 100 10/06/19 16:00 30 10/06/19 14:46 112 18 30 10/06/19 12:49 120 17 30 Intake and Output 10/06/19 10/07/19 19:00 07:00 Intake Total 2650.666 ml 838.000 ml Output Total 1100 ml Balance 1550.666 ml 838.000 ml IV Total 2585.666 ml 578.000 ml Tube Feeding 65 ml 260 ml Output Urine Total 1100 ml Microbiology Date/Time Source Procedure Growth Status 10/05/19 15:10 Blood Blood Culture - Preliminary NO GROWTH AFTER 24 HOURS Resulted 09/15/19 11:00 Nasal Nares - Final Complete 09/15/19 11:00 Nasal Nares - Final Complete 09/25/19 19:00 Stool Clostridium difficile Toxin Assay - Final Complete 10/02/19 15:45 Urine,Clean Catch Urine Culture - Final Camelia Parapsilosis Complete 09/30/19 16:00 Abdomen Anaerobic Culture - Final NO ANAEROBES ISOLATED Complete Current Medications Medications (Trade) Dose Ordered Sig/Va Route PRN Reason Start Time Stop Time Status Last Admin Dose Admin Acetaminophen (Tylenol) 650 mg Q4H PRN GT Mild Pain/Temp > 100.6 09/16/19 18:42 10/16/19 18:41 10/07/19 03:46 Apixaban (Eliquis) 5 mg BID GT 10/02/19 18:02 11/01/19 18:01 10/07/19 09:43 Artificial Tears (Akwa-Tears) 2 drop Q12HR BOTH EYES 09/16/19 21:00 10/14/19 20:59 10/07/19 08:32 Baclofen (Lioresal) 10 mg THREE TIMES A DAY GT 09/17/19 09:00 10/14/19 17:59 10/07/19 09:42 Calcitonin [place] (Miacalcin) 1 sprays DAILY NASAL 09/18/19 12:00 10/18/19 11:59 10/07/19 08:32 Chlorhexidine Gluconate (Rebecca-Hex 2%) 1 applic DAILY@1999 TOPIC 09/26/19 20:00 10/26/19 19:59 10/06/19 20:39 Clobetasol Propionate (Temovate) 1 applic EVERY 12 HOURS TOPIC 09/16/19 21:00 10/14/19 20:59 10/07/19 08:32 Daptomycin 550 mg/ Sodium Chloride 55 ml @ 100 mls/hr Q24H IV 10/03/19 18:00 10/10/19 17:59 10/06/19 18:29 Dextrose (Dextrose 50%) 25 ml Q30M PRN IV Hypoglycemia 09/16/19 18:45 10/14/19 14:44 Dextrose (Dextrose 50%) 50 ml Q30M PRN IV Hypoglycemia 09/16/19 18:45 10/14/19 14:44 Famotidine (Pepcid) 20 mg BID GT 09/18/19 18:00 10/18/19 17:59 10/07/19 09:43 Fenofibrate (Tricor) 145 mg DAILY ORAL 09/17/19 09:00 10/15/19 08:59 10/07/19 09:43 Fluconazole (Diflucan) 400 mg DAILY GT 10/06/19 09:00 10/11/19 13:46 10/07/19 09:42 Insulin Aspart (NovoLOG) EVERY 6 HOURS SUBQ 09/20/19 12:00 10/14/19 16:29 10/07/19 06:10 Levetiracetam (Keppra) 1,000 mg Q8H GT 09/19/19 02:00 10/19/19 01:59 10/07/19 09:42 Metoprolol Tartrate (Lopressor) 25 mg Q12HR GT 10/04/19 09:00 11/03/19 08:59 10/07/19 09:43 Minocycline HCl (Minocin) 100 mg Q12HR@0600,1800 ORAL 10/01/19 06:00 10/08/19 05:59 10/07/19 05:31 Ondansetron HCl (Zofran) 4 mg Q6H PRN IVP Nausea & Vomiting 09/16/19 18:44 10/16/19 18:43 10/06/19 11:28 Polyethylene Glycol (Miralax) 17 gm DAILYPRN PRN GT Constipation 09/16/19 18:44 10/16/19 18:43 Sitagliptin Phosphate (Januvia) 50 mg ACBREAKFAST GT 09/17/19 06:30 10/15/19 06:29 10/07/19 05:32 Tamsulosin HCl (Flomax) 0.4 mg DAILY ORAL 09/17/19 09:00 10/17/19 08:59 10/07/19 09:43 Trimethoprim/ Sulfamethoxazole 28 ml/Dextrose 578 ml @ 385.333 mls/hr [id number] BACTRIM IV 10/02/19 16:00 10/09/19 15:59 10/07/19 08:31 Laboratory Tests 10/07/19 03:00: White Blood Count 20.4H, Red Blood Count 3.55L, Hemoglobin 9.7L, Hematocrit 30.1L, Mean Corpuscular Volume 85, Mean Corpuscular Hemoglobin 27.4, Mean Corpuscular Hemoglobin Concent 32.3, Red Cell Distribution Width 17.8H, Platelet Count 779H, Mean Platelet Volume 6.5, Neutrophils (%) (Auto) , Lymphocytes (%) (Auto) , Monocytes (%) (Auto) , Eosinophils (%) (Auto) , Basophils (%) (Auto) , Differential Total Cells Counted 100, Neutrophils % ( Manual) 74, Lymphocytes % (Manual) 11L, Monocytes % (Manual) 9, Eosinophils % ( Manual) 3, Basophils % (Manual) 0, Band Neutrophils 3, Platelet Estimate IncreasedH, Platelet Morphology Normal, Hypochromasia 2+, Anisocytosis 1+, Spherocytes 1+, Sodium Level 129L, Potassium Level 4.9, Chloride Level 93L, Carbon Dioxide Level 24, Anion Gap 12, Blood Urea Nitrogen 15, Creatinine 1.6H, Estimat Glomerular Filtration Rate 55.3, Glucose Level 324#H, Calcium Level 9.9 Height (Feet): 5 Height (Inches): 7.00 Weight (Pounds): 193 Objective exam stable kendrick indwelling, yellow/hermelindo urine, some debris CT C/A/P (09/28) noted Manohar Villarreal MD Oct 07, 2019 12:23
--- NOTE | 2019-10-07 13:25 | Nephrology Progress Note ---
Assessment/Plan Problem List: (1) Renal failure (ARF), acute on chronic Assessment: Cr rising and hyperKalemia (2) Urinary retention (3) Acute on chronic respiratory failure (4) Hypercalcemia Assessment Hypercalcemia Urinary retention, BPH , Acute on chronic renal failure Electrolyte imbalance Colostomy DM PEG Vegetative state Acute on chronic respiratory failure Plan Kayexelate as needed as needed 3% Saline and NS need to avoid nephrotoxics as possible urine studies K and Phos and Mag supplements as needed pulm support Aredia for high Ca on 09/18 redose 09/23 and 10/06 Subjective ROS Limited/Unobtainable: Yes Objective Objective Last 24 Hour Vital Signs Date Time Temp Pulse Resp B/P (MAP) Pulse Ox O2 Delivery O2 Flow Rate FiO2 10/07/19 12:00 98.1 168 24 112/61 (78) 100 10/07/19 12:00 Mechanical Ventilator 10/07/19 12:00 30 10/07/19 11:11 77 25 30 10/07/19 09:43 175 139/84 10/07/19 08:45 169 22 30 10/07/19 08:00 30 10/07/19 08:00 98.6 175 24 139/84 (102) 100 10/07/19 08:00 Mechanical Ventilator 10/07/19 08:00 155 10/07/19 07:27 170 24 30 10/07/19 07:00 98.6 160 22 121/80 (94) 100 10/07/19 05:29 160 21 30 10/07/19 04:16 100.4 10/07/19 04:00 30 10/07/19 04:00 149 10/07/19 04:00 Mechanical Ventilator 10/07/19 04:00 100.1 145 22 128/89 (102) 100 10/07/19 02:50 138 21 30 10/07/19 02:00 30 10/07/19 01:10 144 22 30 10/07/19 00:00 99.3 134 22 131/89 (103) 94 10/07/19 00:00 145 10/07/19 00:00 Mechanical Ventilator 10/06/19 22:45 145 21 30 10/06/19 21:14 143 21 30 10/06/19 20:41 138 130/70 10/06/19 20:00 99.3 138 20 130/70 (90) 100 10/06/19 20:00 30 10/06/19 20:00 136 10/06/19 20:00 Mechanical Ventilator 10/06/19 18:57 133 19 30 10/06/19 17:08 114 18 30 10/06/19 16:00 127 10/06/19 16:00 Mechanical Ventilator 10/06/19 16:00 99.1 127 20 133/92 (106) 100 10/06/19 16:00 30 10/06/19 14:46 112 18 30 Intake and Output 10/06/19 10/07/19 19:00 07:00 Intake Total 2650.666 ml 838.000 ml Output Total 1100 ml Balance 1550.666 ml 838.000 ml IV Total 2585.666 ml 578.000 ml Tube Feeding 65 ml 260 ml Output Urine Total 1100 ml Laboratory Tests 10/07/19 03:00: White Blood Count 20.4H, Red Blood Count 3.55L, Hemoglobin 9.7L, Hematocrit 30.1L, Mean Corpuscular Volume 85, Mean Corpuscular Hemoglobin 27.4, Mean Corpuscular Hemoglobin Concent 32.3, Red Cell Distribution Width 17.8H, Platelet Count 779H, Mean Platelet Volume 6.5, Neutrophils (%) (Auto) , Lymphocytes (%) (Auto) , Monocytes (%) (Auto) , Eosinophils (%) (Auto) , Basophils (%) (Auto) , Differential Total Cells Counted 100, Neutrophils % ( Manual) 74, Lymphocytes % (Manual) 11L, Monocytes % (Manual) 9, Eosinophils % ( Manual) 3, Basophils % (Manual) 0, Band Neutrophils 3, Platelet Estimate IncreasedH, Platelet Morphology Normal, Hypochromasia 2+, Anisocytosis 1+, Spherocytes 1+, Sodium Level 129L, Potassium Level 4.9, Chloride Level 93L, Carbon Dioxide Level 24, Anion Gap 12, Blood Urea Nitrogen 15, Creatinine 1.6H, Estimat Glomerular Filtration Rate 55.3, Glucose Level 324#H, Calcium Level 9.9 Height (Feet): 5 Height (Inches): 7.00 Weight (Pounds): 193 General Appearance: no apparent distress EENT: other - trach Cardiovascular: tachycardia Respiratory/Chest: decreased breath sounds Abdomen: distended Objective no change Cl Zaragoza MD Oct 07, 2019 13:25
[2019-10-07 16:00] VITALS: BP 106/65
[2019-10-07] MEDS ORDERED: Tubing IV Secondary IV ONE ×2 (16:25→19:02)
[2019-10-07] MEDS ORDERED: NS 275ml ONE ×2 (16:25→19:02)
--- NOTE | 2019-10-07 16:45 | Consultation ---
History of Present Illness General Date patient seen: Oct 07, 2019 Chief Complaint: General Complaint Reason for Consultation: SBO Present Illness HPI This is a 54-year-old male very unfortunate with multiple medical comorbidities who I have cared for in the past that is currently been admitted and under medical management for near 17 days was identified to have decreased colostomy output and a KUB with concerns for possible SBO versus ileus. Surgery was called to evaluate. Patient seen, patient evaluated, chart reviewed. Labs noted. Imaging reviewed. Unfortunately patient unable to respond and provide history. Patient with extensive medical history and extensive medical care since admission. Took over an hour to review all the records. Patient with history of colostomy right-sided. Patient with history of ex lap in the past. Patient with G-tube. Patient with trach. Patient on vent support. Allergies: Coded Allergies: AZTREONAM (Verified Allergy, Unknown, 05/13/18) Medication History Scheduled Baclofen* (Baclofen*), 10 MG GT THREE TIMES A DAY, (Reported) Chlorhexidine Gluconate (Peridex), 15 ML PO Q12HR, (Reported) Cholecalciferol (Vitamin D3) (Vitamin D3), 5,000 UNIT GT DAILY, (Reported) Clobetasol Propionate/Emoll (Clobetasol Emollient 0.05% Crm), 15 GM TP DAILY, ( Reported) Cranberry Extract (Cranberry), 425 MG GT DAILY, (Reported) Cranberry Extract (Cranberry), 425 MG GT DAILY, (Reported) Dextran 70/Hypromellose (Artificial Tears Eye Drops*), 1 DROP BOTH EYES BID, ( Reported) Fenofibrate,Micronized (Fenofibrate), 200 MG GT DAILY, (Reported) Heparin Sod (Porcine) (Heparin Sodium*), 5,000 UNITS SUBQ EVERY 12 HOURS, ( Reported) Insulin Regular, Human* (Novolin R*), 0 SUBQ .SLIDING SCALE, (Reported) Ipratropium/Albuterol Sulfate (DuoNeb 0.5-3(2.5)mg/3ml), 3 ML HHN Q6HR, ( Reported) Lansoprazole* (Lansoprazole*), 30 MG GT DAILY, (Reported) Levetiracetam* (Levetiracetam*), 1,000 MG GT TID, (Reported) Multivitamin With Minerals (Multivitamins With Minerals*), 1 TAB GT DAILY, ( Reported) Nph, Human Insulin Isophane* (Novolin N*), 15 UNITS SUBQ BID, (Reported) Sitagliptin (Januvia), 50 MG GT DAILY, (Reported) Zinc Oxide (Skin Protectant), 1 APPLIC TP DAILY, (Reported) Scheduled PRN Acetaminophen 160MG/5ML* (Acetaminophen*), 20.3 ML GT Q4HR PRN for Fever/ Headache/Mild Pain, (Reported) Ipratropium/Albuterol Sulfate (DuoNeb 0.5-3(2.5)mg/3ml), 3 ML HHN Q2HR PRN for Shortness of Breath, (Reported) Polyethylene Glycol 3350* (Miralax*), 17 GM GT DAILY PRN for Constipation, ( Reported) Patient History Limited by: medical condition History Provided By: Medical Record, PMD Healthcare decision maker arnaldo Perez Resuscitation status Full Code Advanced Directive on File Past Medical/Surgical History Past Medical/Surgical History: (1) ATN (acute tubular necrosis) (2) Urinary retention (3) Hypercalcemia (4) Renal failure (ARF), acute on chronic (5) Pulmonary embolism (6) Recurrent fever (7) Diabetes mellitus (8) Vegetative state (9) Colostomy in place (10) Gastrostomy tube dependent (11) Acute on chronic respiratory failure (12) Sepsis Review of Systems ROS Narrative Cannot obtain given patient's current medical condition and baseline Physical Exam General Appearance: mild distress Lines, tubes and drains: trach, gtube, other HEENT: normocephalic, mucous membranes moist, status post trach Neck: supple, trach Respiratory/Chest: no respiratory distress, no accessory muscle use, decreased breath sounds, on vent Cardiovascular/Chest: tachycardia, other Abdomen: soft, distended, feeding tube, other - Right-sided colostomy prior midline feeding tube Extremities: moderate edema Skin Exam: other Neurologic: unresponsiveness Last 24 Hour Vital Signs Date Time Temp Pulse Resp B/P (MAP) Pulse Ox O2 Delivery O2 Flow Rate FiO2 10/07/19 15:02 148 26 30 10/07/19 13:29 151 22 30 10/07/19 12:00 98.1 168 24 112/61 (78) 100 10/07/19 12:00 Mechanical Ventilator 10/07/19 12:00 30 12/17/19 11:53 167 10/07/19 11:11 157 25 30 10/07/19 09:43 175 139/84 10/07/19 08:45 169 22 30 10/07/19 08:00 30 10/07/19 08:00 98.6 175 24 139/84 (102) 100 10/07/19 08:00 Mechanical Ventilator 10/07/19 08:00 155 10/07/19 07:27 170 24 30 10/07/19 07:00 98.6 160 22 121/80 (94) 100 10/07/19 05:29 160 21 30 10/07/19 04:16 100.4 10/07/19 04:00 30 10/07/19 04:00 149 10/07/19 04:00 Mechanical Ventilator 10/07/19 04:00 100.1 145 22 128/89 (102) 100 10/07/19 02:50 138 21 30 10/07/19 02:00 30 10/07/19 01:10 144 22 30 10/07/19 00:00 99.3 134 22 131/89 (103) 94 10/07/19 00:00 145 10/07/19 00:00 Mechanical Ventilator 10/06/19 22:45 145 21 30 10/06/19 21:14 143 21 30 10/06/19 20:41 138 130/70 10/06/19 20:00 99.3 138 20 130/70 (90) 100 10/06/19 20:00 30 10/06/19 20:00 136 10/06/19 20:00 Mechanical Ventilator 10/06/19 18:57 133 19 30 10/06/19 17:08 114 18 30 Intake and Output 10/06/19 10/07/19 18:59 06:59 Intake Total 2677.332 ml 958.000 ml Output Total 1100 ml Balance 1577.332 ml 958.000 ml IV Total 2612.332 ml 633.000 ml Tube Feeding 65 ml 325 ml Output Urine Total 1100 ml Laboratory Tests Test 10/07/19 03:00 White Blood Count 20.4 K/UL (4.8-10.8) H Red Blood Count 3.55 M/UL (4.70-6.10) L Hemoglobin 9.7 G/DL (14.2-18.0) L Hematocrit 30.1 % (42.0-52.0) L Mean Corpuscular Volume 85 FL (80-99) Mean Corpuscular Hemoglobin 27.4 PG (27.0-31.0) Mean Corpuscular Hemoglobin Concent 32.3 G/DL (32.0-36.0) Red Cell Distribution Width 17.8 % (11.6-14.8) H Platelet Count 779 K/UL (150-450) H Mean Platelet Volume 6.5 FL (6.5-10.1) Neutrophils (%) (Auto) % (45.0-75.0) Lymphocytes (%) (Auto) % (20.0-45.0) Monocytes (%) (Auto) % (1.0-10.0) Eosinophils (%) (Auto) % (0.0-3.0) Basophils (%) (Auto) % (0.0-2.0) Differential Total Cells Counted 100 Neutrophils % (Manual) 74 % (45-75) Lymphocytes % (Manual) 11 % (20-45) L Monocytes % (Manual) 9 % (1-10) Eosinophils % (Manual) 3 % (0-3) Basophils % (Manual) 0 % (0-2) Band Neutrophils 3 % (0-8) Platelet Estimate Increased H Platelet Morphology Normal Hypochromasia 2+ Anisocytosis 1+ Spherocytes 1+ Sodium Level 129 MMOL/L (136-145) L Potassium Level 4.9 MMOL/L (3.5-5.1) Chloride Level 93 MMOL/L (98-107) L Carbon Dioxide Level 24 MMOL/L (21-32) Anion Gap 12 mmol/L (5-15) Blood Urea Nitrogen 15 mg/dL (7-18) Creatinine 1.6 MG/DL (0.55-1.30) H Estimat Glomerular Filtration Rate 55.3 mL/min (>60) Glucose Level 324 MG/DL (74-106) #H Calcium Level 9.9 MG/DL (8.5-10.1) Height (Feet): 5 Height (Inches): 7.00 Weight (Pounds): 193 Medications Current Medications Medications (Trade) Dose Ordered Sig/Va Route PRN Reason Start Time Stop Time Status Last Admin Dose Admin Acetaminophen (Tylenol) 650 mg Q4H PRN GT Mild Pain/Temp > 100.6 09/16/19 18:42 10/16/19 18:41 10/07/19 03:46 Apixaban (Eliquis) 5 mg BID GT 10/02/19 18:02 11/01/19 18:01 10/07/19 09:43 Artificial Tears (Akwa-Tears) 2 drop Q12HR BOTH EYES 09/16/19 21:00 10/14/19 20:59 10/07/19 08:32 Baclofen (Lioresal) 10 mg THREE TIMES A DAY GT 09/17/19 09:00 10/14/19 17:59 10/07/19 13:58 Calcitonin [place] (Miacalcin) 1 sprays DAILY NASAL 09/18/19 12:00 10/18/19 11:59 10/07/19 08:32 Chlorhexidine Gluconate (Rebecca-Hex 2%) 1 applic DAILY@2000 TOPIC 09/26/19 20:00 10/26/19 19:59 10/06/19 20:39 Clobetasol Propionate (Temovate) 1 applic EVERY 12 HOURS TOPIC 09/16/19 21:00 10/14/19 20:59 10/07/19 08:32 Daptomycin 550 mg/ Sodium Chloride 55 ml @ 100 mls/hr Q24H IV 10/03/19 18:00 10/10/19 17:59 10/06/19 18:29 Dextrose (Dextrose 50%) 25 ml Q30M PRN IV Hypoglycemia 09/16/19 18:45 10/14/19 14:44 Dextrose (Dextrose 50%) 50 ml Q30M PRN IV Hypoglycemia 09/16/19 18:45 10/14/19 14:44 Famotidine (Pepcid) 20 mg BID GT 09/18/19 18:00 10/18/19 17:59 10/07/19 09:43 Fenofibrate (Tricor) 145 mg DAILY ORAL 09/17/19 09:00 10/15/19 08:59 10/07/19 09:43 Fluconazole (Diflucan) 400 mg DAILY GT 10/06/19 09:00 10/11/19 13:46 10/07/19 09:42 Insulin Aspart (NovoLOG) EVERY 6 HOURS SUBQ 09/20/19 12:00 10/14/19 16:29 10/07/19 13:03 Levetiracetam (Keppra) 1,000 mg Q8H GT 09/19/19 02:00 10/19/19 01:59 10/07/19 09:42 Metoprolol Tartrate (Lopressor) 25 mg Q12HR GT 10/04/19 09:00 11/03/19 08:59 10/07/19 09:43 Minocycline HCl (Minocin) 100 mg Q12HR@0600,1800 ORAL 10/01/19 06:00 10/08/19 05:59 10/07/19 05:31 Ondansetron HCl (Zofran) 4 mg Q6H PRN IVP Nausea & Vomiting 09/16/19 18:44 10/16/19 18:43 10/06/19 11:28 Polyethylene Glycol (Miralax) 17 gm DAILYPRN PRN GT Constipation 09/16/19 18:44 10/16/19 18:43 Sitagliptin Phosphate (Januvia) 50 mg ACBREAKFAST GT 09/17/19 06:30 10/15/19 06:29 10/07/19 05:32 Tamsulosin HCl (Flomax) 0.4 mg DAILY ORAL 09/17/19 09:00 10/17/19 08:59 10/07/19 09:43 Trimethoprim/ Sulfamethoxazole 28 ml/Dextrose 578 ml @ 385.333 mls/hr [id number] BACTRIM IV 10/02/19 16:00 10/09/19 15:59 10/07/19 08:31 Assessment/Plan Problem List: (1) Small bowel obstruction Assessment & Plan: 54-year-old male currently admitted to [facility] under medical care and management for greater than 2 weeks. Patient requested saline identified to have more distended abdomen, decreased colostomy output, high residuals of feeds, drainage around G-tube site, KUB with small bowel obstruction versus ileus. Patient with very complicated medical and surgical history. Large sacral decubitus ulcer been cared for in the past. Patient unable to provide any history review of systems or examination participation. Patient is very ill currently requiring significant support. Greater 1 hour spent reviewing patient's medical records and current hospitalization history. On examination patient distended firm cannot assess tenderness ostomy viable and intact G-tube in place with dark coffee-ground leakage around it. KUB noted. Recommend GI evaluation as well for potential GI bleed G-tube to suction PPI A.m. KUB Will follow with serial abdominal examinations patient very ill, chronic comorbidities, non responsive, dnr/dni, would not recommend any surgical intervention at this time as exploration would not benefit patient unless plans for continued full care. not sure if he would medically benefit from exploration unsure how long he has been obstructed for possible and likely ileus from chronic illness CT from 09/28 without similar findings as KUB on 10/07 will monitor closely thank you Findings: There are dilated small bowel loops in the left mid abdomen. These are not evident on prior CT scan. Some gas is seen in the colon. No masses or unusual calcifications are demonstrated. Impression: Dilated left mid abdominal small bowel loops. This may reflect small bowel obstruction or ileus. IMPRESSION: 1. Heterogeneous large areas of hypoattenuation in the right lobe of the liver, maybe fatty changes, correlate for hepatitis or other process. No formed fluid collection to suggest an abscess. 2. Contracted gallbladder with thickened enhancing wall. 3. Left lateral abdominal wall musculature 1.5 x 2.2 cm fluid collection with enhancing worrisome for an abscess. 4. Bilateral renal stones, staghorn type in the left kidney, nonobstructive. Mild fullness of the right renal pelvis. Mild bilateral perinephric stranding, correlate for infection. 5. Newberry catheter in urinary bladder. Thickening of the urinary bladder with mild stranding may be cystitis. A few small calcifications in the left urinary bladder base. ICD Codes: K56.609 - Unspecified intestinal obstruction, unspecified as to partial versus complete obstruction SNOMED: [id number] BrendenchenTino Oct 07, 2019 16:45
[2019-10-07] MEDS: DAPTOmycin 550 MG in NS 55 ML IV SCH (18:28)
--- NOTE | 2019-10-07 22:52 | Emergency Room Report ---
History of Present Illness General Chief Complaint: General Complaint Source: Medical Record, PMD Present Illness Allergies: Coded Allergies: AZTREONAM (Verified Allergy, Unknown, 05/13/18) Nursing Documentation-PMH Past Medical History Deferred: Patient Unconscious Hx Hypertension: Yes Hx COPD: Yes Hx Diabetes: Yes - Type 2 Hx Cancer: No Hx Gastrointestinal Problems: Yes - Colostomy Hx Neurological Problems: Yes Hx Cerebrovascular Accident: Yes Hx Seizures: Yes Hx Dysphasia: Yes Physical Exam Vital Signs Date Time Temp Pulse Resp B/P (MAP) Pulse Ox O2 Delivery O2 Flow Rate FiO2 10/03/19 08:00 118 10/03/19 08:00 30 10/03/19 08:00 99.4 15 121/78 (92) 100 10/03/19 08:00 Mechanical Ventilator Medical Decision Making Diagnostic Impression: Primary Impression: Sepsis Additional Impressions: Fever Hyperglycemia Tachycardia Acute on chronic renal insufficiency ER Course Call to medical stepdown unit to pronounce patient. In short this is a 54-year- old male with multiple comorbidities admitted to hospital for sepsis. He was found to be in asystole at 1843. He was on trach to vent with no spontaneous respirations. Pupils were not responsive to light. Family had made patient DNR 2 days prior as per nursing documentation. Time of was called at 1903. Family next of kin Richelle Perez was notified by nursing staff. Primary care physician was informed by nursing poleyard supervisor. Last Vital Signs Date Time Temp Pulse Resp B/P (MAP) Pulse Ox O2 Delivery O2 Flow Rate FiO2 10/07/19 17:16 140 26 30 10/07/19 16:00 98.2 106/65 (79) 100 10/07/19 16:00 Mechanical Ventilator Disposition: ADMITTED INPATIENT Condition: Critical Referrals: Sariah Bhat MD (PCP) Mathew Avendano M.D. Oct 07, 2019 22:52
--- NOTE | 2019-10-08 02:30 | Progress Note ---
DATE: 10/07/2019 SUBJECTIVE: Last night, the patient had several episodes of nausea and vomiting. KUB was ordered and revealed that the patient has a left-sided . PHYSICAL EXAMINATION: VITAL SIGNS: Blood pressure 112/61, his pulse is 148, respirations 26, temperature 98.1. HEENT: Eyes were normal. ENT, mucous membranes were moist and intact. NECK: Supple with no JVD without lymph nodes. Tracheostomy site is clean. HEART: Normal sounds with regular beats. There is tachycardia at rest. ABDOMEN: Soft, nontender with normal bowel sounds. Gastrostomy site is clean. EXTREMITIES: Warm without cyanosis, clubbing, or edema. LABORATORY AND DIAGNOSTIC DATA: Hemoglobin is 9.7, hematocrit 17.1, MCV of 95, WBC of 20.4, and platelets 779. His WBC was 14.1 on 10/06/2019 and 10/05/2019. His BUN and creatinine were 15 and 1.6 respectively. It was 1.3 yesterday. Sodium is 159, potassium 4.9, chloride 93, CO2 is 24. revealed left mid abdomen small bowel loops . IMPRESSION: abdomen is distended in no significant way. More dilated and distended of the left than on the right on palpation of the abdomen. Compression is hard. In addition, the patient has tachycardia, tachypnea, and leukocytosis. It appears that the patient is septic shock. PLAN: Rectal will be inserted. IV normal saline will be given. Cardiology consult and General Surgery were called to assist in the management of this case. Sariah Bhat M.D. DR: VALDO JOB#: [id number] CC:
[2019-10-08] MEDS ORDERED: Pantoprazole Inj IVP SCH (09:00)
--- NOTE | 2019-10-09 11:38 | Discharge Summary ---
Discharge Summary Discharge Summary _ SUMMARY DATE OF ADMISSION: 09/14/2019 DATE OF EXPIRATION: 10/07/2019 REASON FOR ADMISSION: 54 years old male[facility], with past medical history of hypertension, COPD, diabetes mellitus, seizure disorder, chronic respiratory failure, ventilator dependent with tracheostomy, dysphagia, feeding by G-tube, colostomy status, in persistent vegetative state, was brought by EMS , since nursing staff at the facility reported tachycardia. Patient by herself was unable to provide any information . Heart rate was 153 , temperature 102.9 . Patient was hypoxic and required bagging initially. Laboratory work-up revealed significant leukocytosis with WBC 24.7, hemoglobin 12.4 , hematocrit 40. Platelet count 306. Sodium 149, potassium 6.7. BUN 43, creatinine 1.7. Glucose 484. AST 90, ALT 35. Troponin 0.003. Albumin 3.4. Lactic acid 1.1. EKG revealed sinus tachycardia , no acute ischemic changes. Chest x-ray revealed geographic density , overlying the right upper lung , possibly representing overlying soft tissue , although cannot exclude underlying consolidation/pneumonia. Pulmonary vascular congestion. Small left pleural effusion. Urinalysis revealed +4 protein, +4 glucose, pyuria , +3 leukocyte esterase and few bacteria. Septic work-up initiated in emergency department . Patient subsequently admitted to ICU for further management. CONSULTANTS: cnc applications engineer pulmonary/critical care Dr. Goetz ID specialist Dr. Barrera crisis counselor Dr. Zaragoza surgery Dr. Mancilla plastic surgeon Dr. Concepcion urologist [facility] COURSE: Patient admitted to ICU. Ventilator support and tracheostomy care provided. Bronchodilator treatment via HHN provided as needed. Patient was followed-up with ABG and chest x-ray. Ventilator settings were titrated based on ABG. Initial blood culture were negative. Influenza swab was negative. Sputum culture revealed Proteus ESBL and Providencia. Urine culture showed Camelia. Stool for C. difficile was negative. Patient continued to have persistent leukocytosis. Repeated urine culture still revealed Camelia. Repeated blood culture on 09/25 and 09/27 revealed Klebsiella pneumonia carbapenem resistant . Blood culture on 09/29 were negative. Blood culture on 10/02 again showed Klebsiella pneumonia carbapenem resistant . Blood culture on 10/03 and 10/05 were positive as well. Leukocytosis initially trended down then started to trend up with peak of 33.9 , and then started to trend down only to increase again to 20.4 on the day of expiration. Venous duplex bilateral lower extremity revealed no evidence of acute DVT. Aspiration precaution maintained. Patient was able to tolerate G-tube feeding. Tube feeding formula with goal rate and protein supplements provided as per registered dietitian recommendation. DVT and GI prophylaxis provided. Colostomy care provided. Renal parameters and electrolytes were closely monitored, electrolytes corrected as needed and nephrotoxins were avoided. Seizure precaution maintained. Keppra continued. Blood sugar was closely monitored, remained stable, [id number] Hemoglobin and hematocrit were closely monitored with goal to keep hemoglobin above 7. Patient undergone transfusion of total of 3 units of packed red blood cells. Supportive care provided. Pain management was addressed. Patient with persistent Klebsiella pneumonia bacteremia of unclear source. Abdominal ultrasound revealed hepatomegaly with fatty infiltration. Suspected nonobstructive stone left kidney. Left renal cyst Patient undergone CT chest , abdomen, and pelvis due to persistent leukocytosis . CT of the chest revealed 1. Left lower lobe segmental and subsegmental pulmonary emboli 2. Bibasilar atelectasis/consolidations 3. 10 mm low-density lesion in right thyroid CT of the abdomen and pelvis demonstrated: 1. Heterogeneous large areas of hypoattenuation in the right lobe of the liver, maybe fatty changes, correlate for hepatitis or other process. No formed fluid collection to suggest an abscess. 2. Contracted gallbladder with thickened enhancing wall. 3. Left lateral abdominal wall musculature 1.5 x 2.2 cm fluid collection with enhancing , worrisome for an abscess. 4. Bilateral renal stones, staghorn type in the left kidney, nonobstructive. Mild fullness of the right renal pelvis. Mild bilateral perinephric stranding, correlate for infection. 5. Newberry catheter in urinary bladder. Thickening of the urinary bladder with mild stranding may be cystitis. A few small calcifications in the left urinary bladder base. Patient subsequently undergone ultrasound guided aspiration of fluid collection in the left lateral abdominal wall. Small amount of serous fluid was aspirated from the left flank, no gisselle pus . Collection was presumed not to be an abscess. No drain was placed. The presence of considerable residual tissue with hyperemia most likely represented hyperemic scar tissue, recommended follow up to exclude tumor. Culture of abdominal fluid was negative. Silk Presser followed. Patient started on full anticoagulation for pulmonary emboli. Patient was started on beta-cristhian. Current cardiovascular regimen was maintained as per cnc applications engineer. EEG was consistent with encephalopathy of moderate degree, most probably toxic metabolic component , as evidenced by the triphasic waveforms. Urologist followed for urinary retention. Urologist attempted to pass 12 [place] catheter, but met resistance. Findings were consistent with urethral stricture. Patient subsequently undergone cystoscopy with urethral dilation, optical urethrotomy, placement of Newberry catheter. Renal parameters were improving : BUN from 43 down to 15 and creatinine from 1.7 initially resolved to normal, and then started to trend up again. Plastic surgeon seen and evaluated patient for pressure ulcer stage III present on admission. No need for surgical intervention at this time. Recommended turning every 2 elvira , offload the area and control the moisture. Patient condition continued to deteriorate. Patient had persistent bacteremia, leukocytosis, intermittent fevers, tachycardia . Goals of care were discussed with the patient 's family, who made decision to change code status to DNR / DNI . CODE STATUS subsequently was changed on 10/03. Patient subsequently developed new onset of nausea and vomiting . Abdominal x-ray revealed evidence of dilated left mid abdominal small bowel loops, reflecting small bowel obstruction or ileus. General surgeon consulted. Patient was made n.p.o. G-tube was connected to suction. Patient was on PPI. Surgeon recommended to follow-up with KUB and serial abdominal exams. Surgeon also recommended GI specialist evaluation. Patient appeared very ill with chronic comorbidities and nonresponsive, DNR/ DNI status. Surgeon did not recommend any surgical intervention at this time. In the evening 10/07/2019 emergency room doctor was called to stepdown to pronounce the patient . Patient was found to be in asystole at 18: 43 . Patient subsequently was pronounced at 19: 03 on 10/07/2019. Cause of : cardiopulmonary arrest. FINAL DIAGNOSES: Acute on chronic respiratory failure Ventilator dependent respiratory failure/tracheostomy status Shock-recovered Severe sepsis, recurrent Persistent carbapenem resistant Klebsiella pneumonia bacteremia UTI with history of recurrent UTI/pyelonephritis, status post treatment Healthcare associated pneumonia Pulmonary emboli Toxic metabolic encephalopathy Acute tubular necrosis/acute kidney injury on chronic kidney disease Urethral stricture Urinary retention Status post cystoscopy, urethral dilation, optical urethrotomy, placement of Newberry catheter Small bowel obstruction Neurogenic bladder ICH, status post craniotomy and PROGRAM TECHNICIAN shunt placement Hypertension Diabetes mellitus COPD Seizure disorder Colostomy status Dysphagia, feeding by G-tube Anemia of chronic disease, status post blood transfusion Paroxysmal atrial ectopy and sinus tachycardia Sacral decubitus ulcer stage III, present on admission I have been assigned to dictate discharge summary for this account. I was not involved in the patient's management. Radha Kaufman NP Oct 09, 2019 11:37
== END 2019-10-07 19:03 | disposition expired | DRG 853 ==
LOC: EDBD 08:34 → EMR 09:00 → EDBEDREQ 09:09 → ICU 09:12 → EDBEDREQ 10:46 → 2W 09-16 19:46
PROC: 5A1955Z Respiratory Ventilation, Greater than 96 Consecutive Hours (ICD-10-PCS; principal; 2019-09-14)
PROC: 05HY33Z Insertion of Infusion Device into Upper Vein, Percutaneous Approach (ICD-10-PCS; 2019-09-16)
PROC: 0T7D8ZZ Dilation of Urethra, Via Natural or Artificial Opening Endoscopic (ICD-10-PCS; 2019-09-17)
PROC: 0W9F3ZX Drainage of Abdominal Wall, Percutaneous Approach, Diagnostic (ICD-10-PCS; 2019-09-30)
DX: A41.9 Sepsis, unspecified organism (principal); L89.153 Pressure ulcer of sacral region, stage 3; J96.20 Acute and chronic respiratory failure, unspecified whether with hypoxia or hypercapnia; I26.99 Other pulmonary embolism without acute cor pulmonale; N17.0 Acute kidney failure with tubular necrosis; G92 Toxic encephalopathy; J18.9 Pneumonia, unspecified organism; R65.21 Severe sepsis with septic shock; N39.0 Urinary tract infection, site not specified; R40.3 Persistent vegetative state; E87.0 Hyperosmolality and hypernatremia; Z99.11 Dependence on respirator [ventilator] status; R71.0 Precipitous drop in hematocrit; Z86.73 Personal history of transient ischemic attack (TIA), and cerebral infarction without residual deficits; E11.65 Type 2 diabetes mellitus with hyperglycemia; E11.22 Type 2 diabetes mellitus with diabetic chronic kidney disease; I12.9 Hypertensive chronic kidney disease with stage 1 through stage 4 chronic kidney disease, or unspecified chronic kidney disease; N18.9 Chronic kidney disease, unspecified; G40.909 Epilepsy, unspecified, not intractable, without status epilepticus; Z93.0 Tracheostomy status; Z93.1 Gastrostomy status; Z93.3 Colostomy status; E86.0 Dehydration; R13.10 Dysphagia, unspecified; N40.1 Benign prostatic hyperplasia with lower urinary tract symptoms; N39.498 Other specified urinary incontinence; R33.8 Other retention of urine; R31.9 Hematuria, unspecified; N20.0 Calculus of kidney; N35.812 Other bulbous urethral stricture, male; Y95 Nosocomial condition; E87.5 Hyperkalemia; E83.42 Hypomagnesemia
CPT/HCPCS: 36415; 36569; 36600; 71045; 71260; 74018; 74177; 76700; 76937; 77001; 80048; 80053; 80061; 80076; 80202; 81001; 81003; 82164; 82550; 82553; 82607; 82728; 82746; 82803; 82962; 82977; 83036; 83540; 83550; 83605; 83735; 83880; 83970; 84100; 84443; 84484; 84550; 85007; 85025; 85610; 85651; 85730; 86140; 86710; 86850; 86900; 86901; 86920; 87040; 87070; 87075; 87081; 87086; 87181; 87205; 87324; 88104; 93005; 93306; 93970; 94002; 94003; 94150; 94664; 95819; 96365; 96366; 99291; J1815; J2405; J2430; J7030; J8499